=== PATIENT | male | born 1960 | race African-American/Black ===

== ENCOUNTER 2016-10-23 16:15 | Observation (INO) | payer MEDICARE, OTHER ==
--- NOTE | 2016-10-23 17:10 | ED ---
General Adult HPI - General Chief complaint: Chest Pain Stated complaint: chest pain/VINCENT/hip pain/arm pain Time Seen by Provider: 10/23/16 16:42 Source: patient, RN notes reviewed Mode of arrival: ambulatory Limitations: no limitations - History of Present Illness Initial comments: Patient 56-year-old male who presents emergency room today with multiple complaints. He does admit that he had a fall just prior to arrival. He states he was walking on the sidewalk was uneven and he fell down and hit the left side of his head. He states he believes he lost consciousness. He states he believes he was knocked out for around 20 minutes. He states that he does have a headache on the side. He also noticed some pain to the left side of the chest wall. He states is been having pain over the last few days as well prior to this fall but since fall seems to be worse. Patient admits to having chest pain on and off over the last few days. Does admit to a history of stents. He states police less than was placed 2012. Patient does admit that he is having pain is worse with movements and chest. Also admits to pain to the right hip. He wishes movements. Patient denies any recent fever, chills, shortness of breath, back pain, abdominal pain, nausea or vomiting, numbness or tingling, dysuria or hematuria, constipation or diarrhea, headaches or visual changes, or any other complaints. - Related Data Home Medications Medication Instructions Recorded Confirmed Aspirin EC [Ecotrin Low Dose] 81 mg PO DAILY 10/23/16 10/23/16 Atorvastatin [Lipitor] 10 mg PO DAILY 10/23/16 10/23/16 Cetirizine HCl [Zyrtec] 10 mg PO DAILY 10/23/16 10/23/16 HYDROcodone/APAP 7.5-325MG [[place] 1 tab PO TID PRN 10/23/16 10/23/16 7.5-325] Meloxicam [Mobic] 15 mg PO DAILY 10/23/16 10/23/16 Omeprazole 20 mg PO DAILY 10/23/16 10/23/16 QUEtiapine [SEROquel] 50 mg PO HS 10/23/16 10/23/16 Solaraze 3% Gel 2 - 4 gram TOPICAL TID 10/23/16 10/23/16 Venlafaxine HCl [Effexor XR] 75 mg PO BID 10/23/16 10/23/16 oxyCODONE ER [OxyCONTIN 80MG E.R] 80 mg PO Q12HR 10/23/16 10/23/16 Allergies Allergy/AdvReac Type Severity Reaction Status Date / Time blueberry Allergy Rash/Hives Verified 10/23/16 17:15 Review of Systems ROS Statement: Those systems with pertinent positive or pertinent negative responses have been documented in the HPI. ROS Other: All systems not noted in ROS Statement are negative. Past Medical History Past Medical History: Coronary Artery Disease (CAD), Chest Pain / Angina, COPD, Myocardial Infarction (MT), Osteoarthritis (OA) Additional Past Medical History / Comment(s): alcoholism Last Myocardial Infarction Date:: 2004 History of Any Multi-Drug Resistant Organisms: None Reported Past Surgical History: Bowel Resection, Heart Catheterization With Stent Additional Past Surgical History / Comment(s): Cardiac stent 2004 at [place], bowel surgery for pinpoint hole in bowel, L knee arthroscopy. Past Anesthesia/Blood Transfusion Reactions: No Reported Reaction Date of Last Stent Placement:: 2004 Past Psychological History: Bipolar, Depression, Schizophrenia Smoking Status: Current some day smoker Past Alcohol Use History: Occasional Past Drug Use History: None Reported - Past Family History Father Family Medical History: Respiratory Disorder Additional Family Medical History / Comment(s): Father at age 64 from Black lung disease Mother Family Medical History: Myocardial Infarction (MT) Additional Family Medical History / Comment(s): Mother of an MT at 78yrs old. Brother(s) Family Medical History: Myocardial Infarction (MT) Additional Family Medical History / Comment(s): Patient has 10 brothers and 2 from myocardial infarction and had history of alcoholism. Sister(s) Additional Family Medical History / Comment(s): He has 7 sisters that are alive with no major medical problems. He has one son that has and one daughter that is alive and okay. General Exam - General Exam Comments Initial Comments: General: The patient is awake and alert, in no distress, and does not appear acutely ill. Eye: Pupils are equal, round and reactive to light, extra-ocular movements are intact. No nystagmus. There is normal conjunctiva bilaterally. No signs of icterus. Ears, nose, mouth and throat: There are moist mucous membranes and no oral lesions. Neck: The neck is supple, there is no tenderness or JVD. Cardiovascular: There is a regular rate and rhythm. No murmur, rub or gallop is appreciated. Respiratory: Lungs are clear to auscultation, respirations are non-labored, breath sounds are equal. No wheezes, stridor, rales, or rhonchi. Gastrointestinal: Soft, non-distended, non-tender abdomen without masses or organomegaly noted. There is no rebound or guarding present. No CVA tenderness. Bowel sounds are unremarkable. Musculoskeletal: Patient shows full range motional areas. Normal appearance of her film thoracic, lumbar spine. No step-offs forms appreciated. No tenderness in these. Process. Patient does have tenderness in the lateral aspect of the right hip. Does have tenderness to the anterior left side of the chest wall and ribs. No step-offs forms appreciated. Strength 5/5. Sensation intact. Pulses equal bilaterally 2+. Neurological: A&O x 3. CN II-XII intact, There are no obvious motor or sensory deficits. Coordination appears grossly intact. Speech is normal. Skin: Skin is warm and dry and no rashes or lesions are noted. Psychiatric: Cooperative, appropriate mood & affect, normal judgment. Limitations: no limitations Course Vital Signs 10/23/16 10/23/16 10/23/16 16:17 17:02 18:50 Temperature 98.9 F 98.0 F Pulse Rate 106 H 81 Pulse Rate [ 82 Pulse Oximetery ] Respiratory 18 20 Rate Blood Pressure 107/58 114/69 O2 Sat by Pulse 99 100 Oximetry Medical Decision Making - Medical Decision Making Patient's labs been reviewed negative cardiac enzymes. Patient's CK elevation over 500. Does admit to being possibly passed out on the ground for approximately 20 minutes. Patient given a liter bolus in emergency room we continued on IV fluids. Patient CT of the chest was negative for any evidence of PE. No other abnormalities. Patient's x-rays reviewed and reviewed no sign of hip fracture dislocation of the right hip. Chest x-ray unremarkable. Patient's labs unremarkable. Case was discussed with admitting physician who has seen patient here in the emergency room. He will be admitted for serial enzymes. Patient Aware the plan states understanding. - Lab Data Result diagrams: 10/23/16 17:00 10/23/16 17:00 Lab Results 10/23/16 10/23/16 10/23/16 Range/Units 17:00 17:00 17:00 WBC 4.1 (3.8-10.6) k/uL RBC 4.02 L (4.30-5.90) m/uL Hgb 12.1 L (13.0-17.5) gm/dL Hct 37.6 L (39.0-53.0) % MCV 93.6 (80.0-100.0) fL MCH 30.0 (25.0-35.0) pg MCHC 32.0 (31.0-37.0) g/dL RDW 16.9 H (11.5-15.5) % Plt Count 193 (150-450) k/uL Neutrophils % (Manual) 58 % Lymphocytes % (Manual) 33 % Monocytes % (Manual) 9 % Neutrophils # (Manual) 2.38 (1.3-7.7) k/uL Lymphocytes # (Manual) 1.35 (1.0-4.8) k/uL Monocytes # (Manual) 0.37 (0-1.0) k/uL Nucleated RBCs 0 (0-0) /100 WBC Manual Slide Review Performed Anisocytosis Slight PT (9.0-12.0) sec INR (<1.2) APTT (22.0-30.0) sec D-Dimer (<0.60) mg/L FEU Sodium 144 (137-145) mmol/L Potassium 4.4 (3.5-5.1) mmol/L Chloride 107 (98-107) mmol/L Carbon Dioxide 25 (22-30) mmol/L Anion Gap 12 mmol/L BUN 13 (9-20) mg/dL Creatinine 0.90 (0.66-1.25) mg/dL Est GFR (MDRD) Af Amer >60 (>60 ml/min/1.73 sqM) Est GFR (MDRD) Non-Af >60 (>60 ml/min/1.73 sqM) Glucose 144 H (74-99) mg/dL Calcium 9.6 (8.4-10.2) mg/dL Magnesium 1.9 (1.6-2.3) mg/dL Total Bilirubin 0.5 (0.2-1.3) mg/dL AST 32 (17-59) U/L ALT 28 (21-72) U/L Alkaline Phosphatase 55 (38-126) U/L Total Creatine Kinase 554 H (55-170) U/L CK-MB (CK-2) 2.6 H* (0.0-2.4) ng/mL CK-MB (CK-2) Rel Index 0.5 Troponin I <0.012 (0.000-0.034) ng/mL Total Protein 8.8 H (6.3-8.2) g/dL Albumin 4.9 (3.5-5.0) g/dL 10/23/16 Range/Units 17:00 WBC (3.8-10.6) k/uL RBC (4.30-5.90) m/uL Hgb (13.0-17.5) gm/dL Hct (39.0-53.0) % MCV (80.0-100.0) fL MCH (25.0-35.0) pg MCHC (31.0-37.0) g/dL RDW (11.5-15.5) % Plt Count (150-450) k/uL Neutrophils % (Manual) % Lymphocytes % (Manual) % Monocytes % (Manual) % Neutrophils # (Manual) (1.3-7.7) k/uL Lymphocytes # (Manual) (1.0-4.8) k/uL Monocytes # (Manual) (0-1.0) k/uL Nucleated RBCs (0-0) /100 WBC Manual Slide Review Anisocytosis PT 10.3 (9.0-12.0) sec INR 1.0 (<1.2) APTT 23.6 (22.0-30.0) sec D-Dimer 0.68 H (<0.60) mg/L FEU Sodium (137-145) mmol/L Potassium (3.5-5.1) mmol/L Chloride (98-107) mmol/L Carbon Dioxide (22-30) mmol/L Anion Gap mmol/L BUN (9-20) mg/dL Creatinine (0.66-1.25) mg/dL Est GFR (MDRD) Af Amer (>60 ml/min/1.73 sqM) Est GFR (MDRD) Non-Af (>60 ml/min/1.73 sqM) Glucose (74-99) mg/dL Calcium (8.4-10.2) mg/dL Magnesium (1.6-2.3) mg/dL Total Bilirubin (0.2-1.3) mg/dL AST (17-59) U/L ALT (21-72) U/L Alkaline Phosphatase (38-126) U/L Total Creatine Kinase (55-170) U/L CK-MB (CK-2) (0.0-2.4) ng/mL CK-MB (CK-2) Rel Index Troponin I (0.000-0.034) ng/mL Total Protein (6.3-8.2) g/dL Albumin (3.5-5.0) g/dL Disposition Clinical Impression: Fall, Chest pain, Elevated CK Disposition: ADMITTED IP TO THIS HOSP Condition: Stable Referrals: None,Stated [Primary Care Provider] - 1-2 days Time of Disposition: 19:18
[2016-10-23 17:14] LABS: Anisocytosis Slight; Aty Lym Flag Slight; CH 30.4; CHCM 32.6; HCT 37.6 % (39.0-53.0); HDW 2.37; HGB 12.1 gm/dL (13.0-17.5); MCV 93.6 fL (80.0-100.0); Mean Platelet Volume 8.8; RBC 4.02 m/uL (4.30-5.90); RDW 16.9 % (11.5-15.5); WBC 4.1 k/uL (3.8-10.6); WBC (Perox) 4.46
[2016-10-23 17:25] LABS: ALT 28 U/L (21-72); AST 32 U/L (17-59); Alkaline Phosphatase 55 U/L (38-126); Anion Gap 12 mmol/L; Blood Urea Nitrogen 13 mg/dL (9-20); Calcium 9.6 mg/dL (8.4-10.2); Carbon Dioxide 25 mmol/L (22-30); Chloride 107 mmol/L (98-107); Glucose 144 mg/dL (74-99); Magnesium 1.9 mg/dL (1.6-2.3); Non-African American GFR(MDRD) >60 (>60 ml/min/1.73 sqM); Potassium 4.4 mmol/L (3.5-5.1); Sodium 144 mmol/L (137-145); Total Bilirubin 0.5 mg/dL (0.2-1.3); Total Protein 8.8 g/dL (6.3-8.2)
[2016-10-23 17:28] LABS: Partial Thromboplastin Time 23.6 sec (22.0-30.0); Prothrombin Time 10.3 sec (9.0-12.0)
[2016-10-23 17:35] LABS: Creatine Kinase 554 U/L (55-170)
[2016-10-23] MEDS ORDERED: RX INFO: IV CONTRAST WAS GIVEN 1 EACH MISC MISCELLANE PRN (17:38)
[2016-10-23 17:47] LABS: Add Differential Manual Differential; Troponin I <0.012 ng/mL (0.000-0.034)
[2016-10-23 17:50] LABS: Manual Review Performed; Nucleated Red Blood Cells 0 /100 WBC (0-0); Total Cells Counted 100
[2016-10-23 17:54] LABS: Creatine Kinase MB 2.6 ng/mL (0.0-2.4)
[2016-10-23] MEDS ORDERED: ASPIRIN 81 MG PO STA (18:04)
[2016-10-23] MEDS ORDERED: SODIUM CHLORIDE 0.9% 1,000 ML IV STA ×2 (18:04)
[2016-10-23] MEDS ORDERED: NITROGLYCERIN SL TABS 0.4 MG TAB SUBLINGUAL PRN (18:04)
--- NOTE | 2016-10-23 18:22 | P.HPIM ---
History of Present Illness H&P Date: 10/23/16 Chief Complaint: Chest pain shortness of breath and fall The patient is a 56-year-old black male with a history of SC 2004 and CAD with stenting X3 most recently done in 2013 who presents emergency room today with multiple complaints. He does admit that he had a fall just prior to arrival. He states he was walking on the sidewalk was uneven and he fell down and hit the left side of his head. He states he believes he lost consciousness. He states he believes he was knocked out for around 20 minutes. He states that he does have a headache on the side. He also noticed some pain to the left side of the chest wall. He states is been having pain over the last few days as well prior to this fall but since fall seems to be worse. Patient admits to having chest pain on and off over the last few days. Patient does admit that he is having pain is worse with movements and chest. Also admits to pain to the right hip. He wishes movements. Patient denies any recent fever, chills, shortness of breath, back pain, abdominal pain, nausea or vomiting, numbness or tingling, dysuria or hematuria, constipation or diarrhea, headaches or visual changes, or any other complaints. Review of Systems On the 14 point review of systems negative except per HPI Past Medical History Past Medical History: Coronary Artery Disease (CAD), Chest Pain / Angina, COPD, Myocardial Infarction (SC), Osteoarthritis (OA) Additional Past Medical History / Comment(s): alcoholism Last Myocardial Infarction Date:: 2004 History of Any Multi-Drug Resistant Organisms: None Reported Past Surgical History: Bowel Resection, Heart Catheterization With Stent Additional Past Surgical History / Comment(s): Cardiac stent 2004 at [place], bowel surgery for pinpoint hole in bowel, L knee arthroscopy. Past Anesthesia/Blood Transfusion Reactions: No Reported Reaction Date of Last Stent Placement:: 2004 Past Psychological History: Bipolar, Depression, Schizophrenia Smoking Status: Current some day smoker Past Alcohol Use History: Occasional Past Drug Use History: None Reported - Past Family History Father Family Medical History: Respiratory Disorder Additional Family Medical History / Comment(s): Father at age 64 from Black lung disease Mother Family Medical History: Myocardial Infarction (SC) Additional Family Medical History / Comment(s): Mother of an SC at 78yrs old. Brother(s) Family Medical History: Myocardial Infarction (SC) Additional Family Medical History / Comment(s): Patient has 10 brothers and 2 from myocardial infarction and had history of alcoholism. Sister(s) Additional Family Medical History / Comment(s): He has 7 sisters that are alive with no major medical problems. He has one son that has and one daughter that is alive and okay. Medications and Allergies Home Medications Medication Instructions Recorded Confirmed Type Aspirin EC [Ecotrin Low Dose] 81 mg PO DAILY 10/23/16 10/23/16 History Atorvastatin [Lipitor] 10 mg PO DAILY 10/23/16 10/23/16 History Cetirizine HCl [Zyrtec] 10 mg PO DAILY 10/23/16 10/23/16 History HYDROcodone/APAP 7.5-325MG [[place] 1 tab PO TID PRN 10/23/16 10/23/16 History 7.5-325] Meloxicam [Mobic] 15 mg PO DAILY 10/23/16 10/23/16 History Omeprazole 20 mg PO DAILY 10/23/16 10/23/16 History QUEtiapine [SEROquel] 50 mg PO HS 10/23/16 10/23/16 History Solaraze 3% Gel 2 - 4 gram TOPICAL TID 10/23/16 10/23/16 History Venlafaxine HCl [Effexor XR] 75 mg PO BID 10/23/16 10/23/16 History oxyCODONE ER [OxyCONTIN 80MG E.R] 80 mg PO Q12HR 10/23/16 10/23/16 History Allergies Allergy/AdvReac Type Severity Reaction Status Date / Time blueberry Allergy Rash/Hives Verified 10/23/16 17:15 Physical Exam Vitals: Vital Signs Temp Pulse Pulse Resp BP Pulse Ox 10/23/16 17:02 82 10/23/16 16:17 98.9 F 106 H 18 107/58 99 Intake and Output 10/23/16 10/23/16 10/23/16 06:59 14:59 22:59 Other: Weight 68.039 kg Patient Weight 10/24/16 06:59 Weight 68.039 kg Constitutional: No acute distress, conversant, pleasant Eyes: Anicteric sclerae, moist conjunctiva, no lid-lag, PERRLA ENMT: NC/AT,Oropharynx clear, no erythema, exudates Neck:Supple, FROM, no masses, or JVD, No carotid bruits; No thyromegaly Lungs: Clear to auscultation, Clear to percussion, Normal respiratory effort, no accessory muscle use Cardiovascular: Heart regular in rate and rhythm, No murmurs, gallops, or rubs no peripheral edema Abdominal: Soft Nontender, nom distended, no guarding, no rebound or rigidity, Normoactive bowel sounds No hepatomegaly, No splenomegaly, No palpable mass No abdominal wall hernia noted Skin: Normal temperature, tone, texture, turgor, No induration No subcutaneous nodules, No rash, lesions, No ulcers Extremities:No digital cyanosis No clubbing, Pedal pulses intact and symmetrical Radial pulses intact and symmetrical Normal gait and station, No calf tenderness Psychiatric: Alert and oriented to person, place and time, Appropriate affect Intact judgement Neuro: Muscles Strength 5/5 in all 4 extremities, Sensation to light touch grossly present throughout, Cranial nerves II-XII grossly intact. No focal sensory deficits Results CBC & Chem 7: 10/23/16 17:00 10/23/16 17:00 Labs: Abnormal Lab Results - Last 24 Hours (Table) 10/23/16 10/23/16 10/23/16 Range/Units 17:00 17:00 17:00 RBC 4.02 L (4.30-5.90) m/uL Hgb 12.1 L (13.0-17.5) gm/dL Hct 37.6 L (39.0-53.0) % RDW 16.9 H (11.5-15.5) % D-Dimer (<0.60) mg/L FEU Glucose 144 H (74-99) mg/dL Total Creatine Kinase 554 H (55-170) U/L CK-MB (CK-2) 2.6 H* (0.0-2.4) ng/mL Total Protein 8.8 H (6.3-8.2) g/dL 10/23/16 Range/Units 17:00 RBC (4.30-5.90) m/uL Hgb (13.0-17.5) gm/dL Hct (39.0-53.0) % RDW (11.5-15.5) % D-Dimer 0.68 H (<0.60) mg/L FEU Glucose (74-99) mg/dL Total Creatine Kinase (55-170) U/L CK-MB (CK-2) (0.0-2.4) ng/mL Total Protein (6.3-8.2) g/dL Assessment and Plan (1) Atypical chest pain Status: Acute (2) CAD (coronary artery disease) Status: Acute (3) Dyslipidemia Status: Acute Plan: That is a 56-year-old black male with a known history of coronary artery disease with stenting presented with atypical chest pain initial set of troponins negative EKG negative for any acute ischemia, due to his ongoing coronary disease factor profile as he is a smoker and is placed in observation status to rule out ACS, Continuous chest pain orders start aspirin statin therapy for this or morphine and continue to trend his troponins. We'll order echocardiogram and exercise stress test. This fall the patient has been complaining of pleuritic chest pain and does have a slightly elevated d-dimer CT of the chest has been ordered to rule out PE Results are pending. CT of the head is also pending. We'll follow up on this tomorrow and continue to follow his clinical course Time with Patient: Greater than 30
--- NOTE | 2016-10-23 18:31 | CT ---
EXAMINATION TYPE: CT brain anuj esquivel DATE OF EXAM: 10/23/2016 COMPARISON: 03/21/[address] scan HISTORY: Patient complains of headache and neck pain post fall yesterday. CT DLP: 1016.5 mGycm Automated exposure control for dose reduction was used. TECHNIQUE: CT scan of the head and cervical spine are performed without contrast. FINDINGS: Ventricles have normal size. There is no mass effect nor midline shift. There is no sign of intracranial hemorrhage. The calvarium is intact. The cervical vertebra show some straightening. There is hypertrophic anterior spurring from C3 to C7. Facet joints are intact. There is no sign of a fracture. Skull base is intact. IMPRESSION: Negative CT scan of the brain. No change. Mild spondylotic changes in the cervical spine. No fracture.
--- NOTE | 2016-10-23 18:32 | XR ---
EXAMINATION TYPE: XR chest 2V DATE OF EXAM: 10/23/2016 COMPARISON: 12/17/2015 HISTORY: Chest pain TECHNIQUE: Frontal and lateral views of the chest are obtained. FINDINGS: There is no heart failure nor confluent pneumonic infiltrate. There are chest leads. There are no hilar masses. Bony thorax is intact. IMPRESSION: No active cardiopulmonary disease. No change.
--- NOTE | 2016-10-23 18:34 | XR ---
EXAMINATION TYPE: XR Hip RT and AP Pelvis DATE OF EXAM: 10/23/2016 COMPARISON: 08/12/2014 HISTORY: Hip pain TECHNIQUE: A single AP view of the pelvis is obtained. Two views of the right hip are obtained. FINDINGS: I see no fracture nor dislocation. Hip joint spaces fairly normal. Pelvic ring is intact. T here is mild acetabular spurring. CONCLUSION: Mild acetabular spurring. No fracture. No adverse change compared to old exam.
--- NOTE | 2016-10-23 19:02 | CT ---
EXAMINATION TYPE: CT angio chest DATE OF EXAM: 10/23/2016 6:48 PM COMPARISON: 10/21/2014 HISTORY: Chest/arm pain. CT DLP: 202.2 mGycm Automated exposure control for dose reduction was used. CONTRAST: CTA scan of the thorax is performed with IV Contrast, patient injected with 75 mL of Omnipaque 350, p ulmonary embolism protocol. There are 3-D post processed images.. FINDINGS: There are emphysematous changes in the left upper lobe. There is no evidence of a pulmonary mass. The re is mild subsegmental atelectasis at the posterior lung bases. There is no pleural effusion. There is no pericardial effusion. Heart appears slightly enlarged. Ascending aorta measures 3.7 cm. There i s no evidence of aortic dissection. I see no filling defects in the pulmonary arteries. There is no m ediastinal adenopathy. There is spurring in the thoracic spine. IMPRESSION: MILD PULMONARY EMPHYSEMA. NO EVIDENCE OF PULMONARY EMBOLISM. MILD SUBSEGMENTAL ATELECTASIS AT THE [place] G BASES SIMILAR TO OLD EXAM.
[2016-10-23 20:12] VITALS: RESP 18
[2016-10-23] MEDS ORDERED: FAMOTIDINE 20 MG TAB PO SCH (21:00)
[2016-10-23] MEDS ORDERED: ACETAMINOPHEN TAB 500 MG TAB PO PRN (21:29)
[2016-10-23] MEDS ORDERED: HYDROcodone/APAP 5-325MG 1 EACH TAB PO STA (21:40)
[2016-10-24 00:03] VITALS: PULSE 72
[2016-10-24 04:29] VITALS: BP 117/78; TEMP 98.3
[2016-10-24] MEDS ORDERED: ASPIRIN 325 MG TAB PO SCH (09:00)
[2016-10-24] MEDS ORDERED: ATORVASTATIN 80 MG TAB PO SCH (09:00)
[2016-10-24] MEDS ORDERED: ENOXAPARIN 40 MG/0.4 ML SYRINGE SQ SCH (09:00)
--- NOTE | 2016-10-25 16:56 | P.DS ---
Providers Date of admission: 10/23/16 18:06 Expected date of discharge: 10/24/16 Attending physician: Eugenio Giron MD Primary care physician: Stated None - Discharge Diagnosis(es) (1) Left against medical advice Status: Acute (2) Atypical chest pain Status: Acute (3) CAD (coronary artery disease) Status: Acute (4) Dyslipidemia Status: Acute Hospital Course: Condition is a 56-year-old -[place] male that presented with atypical chest pain and was placed on observation on telemetry unit to rule out ACS given his history of coronary artery disease with stenting, cardiology was consulted to see the patient. The patient's EKG and cardiac enzymes were all negative for any suggestion of ischemia. Scheduled to have a echocardiogram done, however the patient left AMA prior to being seen by cardiology. This discharge process took less than 15 minutes Patient Condition at Discharge: Stable Plan - Discharge Summary New Discharge Prescriptions: No Action Aspirin EC [Ecotrin Low Dose] 81 mg PO DAILY Atorvastatin [Lipitor] 10 mg PO DAILY Cetirizine HCl [Zyrtec] 10 mg PO DAILY HYDROcodone/APAP 7.5-325MG [[place] 7.5-325] 1 tab PO TID PRN PRN Reason: Pain Meloxicam [Mobic] 15 mg PO DAILY Omeprazole 20 mg PO DAILY oxyCODONE ER [OxyCONTIN 80MG E.R] 80 mg PO Q12HR QUEtiapine [SEROquel] 50 mg PO HS [place] 3% Gel 2 - 4 gram TOPICAL TID Venlafaxine HCl [Effexor XR] 75 mg PO BID Discharge Medication List Aspirin EC [Ecotrin Low Dose] 81 mg PO DAILY 10/23/16 [History] Atorvastatin [Lipitor] 10 mg PO DAILY 10/23/16 [History] Cetirizine HCl [Zyrtec] 10 mg PO DAILY 10/23/16 [History] HYDROcodone/APAP 7.5-325MG [[place] 7.5-325] 1 tab PO TID PRN 10/23/16 [History] Meloxicam [Mobic] 15 mg PO DAILY 10/23/16 [History] Omeprazole 20 mg PO DAILY 10/23/16 [History] QUEtiapine [SEROquel] 50 mg PO HS 10/23/16 [History] [place] 3% Gel 2 - 4 gram TOPICAL TID 10/23/16 [History] Venlafaxine HCl [Effexor XR] 75 mg PO BID 10/23/16 [History] oxyCODONE ER [OxyCONTIN 80MG E.R] 80 mg PO Q12HR 10/23/16 [History] Follow up Appointment(s)/Referral(s): None,Stated [Primary Care Provider] - 1-2 days Discharge Disposition: Left Against Medical Advice
== END 2016-10-24 06:50 | disposition left against medical advice (07) ==
LOC: EC 16:15 → 3OBS 18:06
PROVIDERS: ADMIT Family Medicine; ATTEND Family Medicine
DX: R07.89 Other chest pain (principal); I25.10 Atherosclerotic heart disease of native coronary artery without angina pectoris; R74.8 Abnormal levels of other serum enzymes; E78.5 Hyperlipidemia, unspecified; M25.551 Pain in right hip; R51 Headache; J44.9 Chronic obstructive pulmonary disease, unspecified; F17.200 Nicotine dependence, unspecified, uncomplicated; Z95.5 Presence of coronary angioplasty implant and graft; I25.2 Old myocardial infarction; M19.90 Unspecified osteoarthritis, unspecified site; F20.9 Schizophrenia, unspecified; F31.9 Bipolar disorder, unspecified; Z79.1 Long term (current) use of non-steroidal anti-inflammatories (NSAID); Z79.82 Long term (current) use of aspirin; Z79.891 Long term (current) use of opiate analgesic; Z79.899 Other long term (current) drug therapy; Z91.018 Allergy to other foods; Z82.49 Family history of ischemic heart disease and other diseases of the circulatory system; W18.30XA Fall on same level, unspecified, initial encounter; Y93.01 Activity, walking, marching and hiking; Y92.480 Sidewalk as the place of occurrence of the external cause
CPT/HCPCS: 96360 ×2; 99285 ×2; 36415; 93005; 85379; 80053; 82550; 82553; 83735; 84484; 85025; 85610; 85730; 71020; 73502; 72125; 70450; 71275; G0378 ×2; Q9967

== ENCOUNTER 2016-12-26 10:06 | Observation (INO) | payer MEDICARE, OTHER ==
[2016-12-26] MEDS ORDERED: ASPIRIN 81 MG PO STA (10:24)
[2016-12-26] MEDS ORDERED: MORPHINE SULFATE 4 MG/ML SYRINGE IV STA (10:24)
--- NOTE | 2016-12-26 10:28 | ED ---
General Adult HPI - General Chief complaint: Chest Pain Stated complaint: Chest Pain Time Seen by Provider: 12/26/16 10:13 Source: patient, RN notes reviewed, old records reviewed Mode of arrival: wheelchair Limitations: no limitations - History of Present Illness Initial comments: 56-year-old male presents for evaluation of chest pain. Patient states he's had 3 days of constant substernal chest pain. Pain is nonradiating. It is associated with shortness of breath. Patient describes it as a pressure. Patient states he has a history of coronary artery disease with a heart attack in 2004. He states he has had 3 cardiac stents placed. Only medication the patient is currently taking his aspirin. Patient is a current smoker, states he smokes only a few cigarettes daily. Patient denies heavy alcohol consumption. Denies abdominal pain. Patient does also complain of 5 days of bright red blood per rectum. Blood is with bowel movements. Patient is not currently on any anticoagulation. No cough. No fever or chills. No nausea or vomiting. - Related Data Home Medications Medication Instructions Recorded Confirmed Aspirin EC [Ecotrin Low Dose] 81 mg PO DAILY 10/23/16 12/26/16 Atorvastatin [Lipitor] 10 mg PO DAILY 10/23/16 12/26/16 Cetirizine HCl [Zyrtec] 10 mg PO DAILY 10/23/16 12/26/16 Meloxicam [Mobic] 15 mg PO DAILY 10/23/16 12/26/16 Omeprazole 20 mg PO DAILY 10/23/16 12/26/16 oxyCODONE ER [OxyCONTIN 80MG E.R] 80 mg PO Q12HR 10/23/16 12/26/16 Baclofen [Lioresal] 10 mg PO TID 12/26/16 12/26/16 Clopidogrel Bisulfate [Plavix] 75 mg PO DAILY 12/26/16 12/26/16 Gabapentin [Neurontin] 300 mg PO TID 12/26/16 12/26/16 QUEtiapine [SEROquel] 200 mg PO HS 12/26/16 12/26/16 Venlafaxine HCl ER [Effexor XR] 150 mg PO DAILY 12/26/16 12/26/16 Allergies Allergy/AdvReac Type Severity Reaction Status Date / Time blueberry Allergy Rash/Hives Verified 12/26/16 10:28 Review of Systems ROS Statement: Those systems with pertinent positive or pertinent negative responses have been documented in the HPI. ROS Other: All systems not noted in ROS Statement are negative. Past Medical History Past Medical History: Coronary Artery Disease (CAD), Chest Pain / Angina, COPD, Myocardial Infarction ([place]), Osteoarthritis (OA) Additional Past Medical History / Comment(s): alcoholism Last Myocardial Infarction Date:: 2004 History of Any Multi-Drug Resistant Organisms: None Reported Past Surgical History: Bowel Resection, Heart Catheterization With Stent Additional Past Surgical History / Comment(s): Cardiac stent 2005 at [place], bowel surgery for pinpoint hole in bowel, L knee arthroscopy. Past Anesthesia/Blood Transfusion Reactions: No Reported Reaction Date of Last Stent Placement:: 2004 Past Psychological History: Bipolar, Depression, Schizophrenia Smoking Status: Current some day smoker Past Alcohol Use History: Occasional Past Drug Use History: None Reported - Past Family History Father Family Medical History: Respiratory Disorder Additional Family Medical History / Comment(s): Father at age 64 from Black lung disease Mother Family Medical History: Myocardial Infarction ([place]) Additional Family Medical History / Comment(s): Mother of an [place] at 78yrs old. Brother(s) Family Medical History: Myocardial Infarction ([place]) Additional Family Medical History / Comment(s): Patient has 10 brothers and 2 from myocardial infarction and had history of alcoholism. Sister(s) Additional Family Medical History / Comment(s): He has 7 sisters that are alive with no major medical problems. He has one son that has and one daughter that is alive and okay. General Exam Limitations: no limitations General appearance: alert, in no apparent distress Head exam: Present: atraumatic, normocephalic Eye exam: Present: normal appearance, PERRL ENT exam: Present: normal exam Neck exam: Present: normal inspection. Absent: tenderness, meningismus Respiratory exam: Present: normal lung sounds bilaterally. Absent: respiratory distress Cardiovascular Exam: Present: regular rate, normal rhythm GI/Abdominal exam: Present: soft. Absent: distended, tenderness, guarding Rectal exam: Present: normal rectal tone, tenderness. Absent: black stool, bloody stool Extremities exam: Present: normal inspection, full ROM, normal capillary refill. Absent: pedal edema Neurological exam: Present: alert, oriented X3. Absent: motor sensory deficit Psychiatric exam: Present: normal affect, normal mood Skin exam: Present: warm, dry, intact. Absent: cyanosis, diaphoretic Course Vital Signs 12/26/16 12/26/16 12/26/16 10:08 10:25 10:48 Temperature 99.4 F Pulse Rate 84 71 Respiratory 16 18 16 Rate Blood Pressure 153/91 132/87 O2 Sat by Pulse 96 98 Oximetry 12/26/16 12:32 Temperature Pulse Rate 78 Respiratory 18 Rate Blood Pressure 124/82 O2 Sat by Pulse 99 Oximetry EKG Findings - EKG Comments: EKG Findings:: EKG shows normal sinus rhythm with sinus arrhythmia, LVH, ventricular rate 76, CA interval 142, QRS duration 86, QTC 443 no signs of ischemia Medical Decision Making - Medical Decision Making 56-year-old male presenting with chest pain. Laboratory studies reveal stable hemoglobin, negative d-dimer, negative troponin. Hemoccult is negative. Chest x-ray shows no acute findings. EKG shows no ST segment elevation or depression. Patient will be placed in observation for serial troponins. - Lab Data Result diagrams: 12/26/16 10:40 12/26/16 10:40 Lab Results 12/26/16 12/26/16 12/26/16 Range/Units 10:40 10:40 10:40 WBC 3.5 L (3.8-10.6) k/uL RBC 3.70 L (4.30-5.90) m/uL Hgb 10.9 L (13.0-17.5) gm/dL Hct 34.3 L (39.0-53.0) % MCV 92.6 (80.0-100.0) fL MCH 29.5 (25.0-35.0) pg MCHC 31.9 (31.0-37.0) g/dL RDW 15.7 H (11.5-15.5) % Plt Count 172 (150-450) k/uL Neutrophils % (Manual) 41 % Lymphocytes % (Manual) 46 % Monocytes % (Manual) 12 % Eosinophils % (Manual) 1 % Neutrophils # (Manual) 1.44 (1.3-7.7) k/uL Lymphocytes # (Manual) 1.61 (1.0-4.8) k/uL Monocytes # (Manual) 0.42 (0-1.0) k/uL Eosinophils # (Manual) 0.04 (0-0.7) k/uL Nucleated RBCs 0 (0-0) /100 WBC Manual Slide Review Performed RBC Morphology Normal PT (9.0-12.0) sec INR (<1.2) APTT (22.0-30.0) sec D-Dimer (<0.60) mg/L FEU Sodium 143 (137-145) mmol/L Potassium 4.2 (3.5-5.1) mmol/L Chloride 107 (98-107) mmol/L Carbon Dioxide 26 (22-30) mmol/L Anion Gap 10 mmol/L BUN 15 (9-20) mg/dL Creatinine 0.78 (0.66-1.25) mg/dL Est GFR (MDRD) Af Amer >60 (>60 ml/min/1.73 sqM) Est GFR (MDRD) Non-Af >60 (>60 ml/min/1.73 sqM) Glucose 79 (74-99) mg/dL Calcium 9.8 (8.4-10.2) mg/dL Magnesium 1.7 (1.6-2.3) mg/dL Total Bilirubin 0.3 (0.2-1.3) mg/dL AST 21 (17-59) U/L ALT 22 (21-72) U/L Alkaline Phosphatase 51 (38-126) U/L Total Creatine Kinase 129 (55-170) U/L CK-MB (CK-2) 1.2 (0.0-2.4) ng/mL CK-MB (CK-2) Rel Index 0.9 Troponin I <0.012 (0.000-0.034) ng/mL NT-Pro-B Natriuret Pep pg/mL Total Protein 7.8 (6.3-8.2) g/dL Albumin 4.3 (3.5-5.0) g/dL Lipase 130 (23-300) U/L Urine Color Urine Appearance (Clear) Urine pH (5.0-8.0) Ur Specific [place] (1.001-1.035) Urine Protein (Negative) Urine Glucose (UA) (Negative) Urine Ketones (Negative) Urine Blood (Negative) Urine Nitrite (Negative) Urine Bilirubin (Negative) Urine Urobilinogen (<2.0) mg/dL Ur Leukocyte Esterase (Negative) Stool Occult Blood (Negative) Urine Opiates Screen (NotDetected) Ur Oxycodone Screen (NotDetected) Urine Methadone Screen (NotDetected) Ur Propoxyphene Screen (NotDetected) Ur Barbiturates Screen (NotDetected) U Tricyclic Antidepress (NotDetected) Ur Phencyclidine Scrn (NotDetected) Ur Amphetamines Screen (NotDetected) U Methamphetamines Scrn (NotDetected) U Benzodiazepines Scrn (NotDetected) Urine Cocaine Screen (NotDetected) U Marijuana (THC) Screen (NotDetected) 12/26/16 12/26/16 12/26/16 Range/Units 10:40 10:40 10:40 WBC (3.8-10.6) k/uL RBC (4.30-5.90) m/uL Hgb (13.0-17.5) gm/dL Hct (39.0-53.0) % MCV (80.0-100.0) fL MCH (25.0-35.0) pg MCHC (31.0-37.0) g/dL RDW (11.5-15.5) % Plt Count (150-450) k/uL Neutrophils % (Manual) % Lymphocytes % (Manual) % Monocytes % (Manual) % Eosinophils % (Manual) % Neutrophils # (Manual) (1.3-7.7) k/uL Lymphocytes # (Manual) (1.0-4.8) k/uL Monocytes # (Manual) (0-1.0) k/uL Eosinophils # (Manual) (0-0.7) k/uL Nucleated RBCs (0-0) /100 WBC Manual Slide Review RBC Morphology PT 10.1 (9.0-12.0) sec INR 1.0 (<1.2) APTT 21.9 L (22.0-30.0) sec D-Dimer 0.27 (<0.60) mg/L FEU Sodium (137-145) mmol/L Potassium (3.5-5.1) mmol/L Chloride (98-107) mmol/L Carbon Dioxide (22-30) mmol/L Anion Gap mmol/L BUN (9-20) mg/dL Creatinine (0.66-1.25) mg/dL Est GFR (MDRD) Af Amer (>60 ml/min/1.73 sqM) Est GFR (MDRD) Non-Af (>60 ml/min/1.73 sqM) Glucose (74-99) mg/dL Calcium (8.4-10.2) mg/dL Magnesium (1.6-2.3) mg/dL Total Bilirubin (0.2-1.3) mg/dL AST (17-59) U/L ALT (21-72) U/L Alkaline Phosphatase (38-126) U/L Total Creatine Kinase (55-170) U/L CK-MB (CK-2) (0.0-2.4) ng/mL CK-MB (CK-2) Rel Index Troponin I (0.000-0.034) ng/mL NT-Pro-B Natriuret Pep 24 pg/mL Total Protein (6.3-8.2) g/dL Albumin (3.5-5.0) g/dL Lipase (23-300) U/L Urine Color Urine Appearance (Clear) Urine pH (5.0-8.0) Ur Specific [place] (1.001-1.035) Urine Protein (Negative) Urine Glucose (UA) (Negative) Urine Ketones (Negative) Urine Blood (Negative) Urine Nitrite (Negative) Urine Bilirubin (Negative) Urine Urobilinogen (<2.0) mg/dL Ur Leukocyte Esterase (Negative) Stool Occult Blood Negative (Negative) Urine Opiates Screen (NotDetected) Ur Oxycodone Screen (NotDetected) Urine Methadone Screen (NotDetected) Ur Propoxyphene Screen (NotDetected) Ur Barbiturates Screen (NotDetected) U Tricyclic Antidepress (NotDetected) Ur Phencyclidine Scrn (NotDetected) Ur Amphetamines Screen (NotDetected) U Methamphetamines Scrn (NotDetected) U Benzodiazepines Scrn (NotDetected) Urine Cocaine Screen (NotDetected) U Marijuana (THC) Screen (NotDetected) 12/26/16 Range/Units 12:07 WBC (3.8-10.6) k/uL RBC (4.30-5.90) m/uL Hgb (13.0-17.5) gm/dL Hct (39.0-53.0) % MCV (80.0-100.0) fL MCH (25.0-35.0) pg MCHC (31.0-37.0) g/dL RDW (11.5-15.5) % Plt Count (150-450) k/uL Neutrophils % (Manual) % Lymphocytes % (Manual) % Monocytes % (Manual) % Eosinophils % (Manual) % Neutrophils # (Manual) (1.3-7.7) k/uL Lymphocytes # (Manual) (1.0-4.8) k/uL Monocytes # (Manual) (0-1.0) k/uL Eosinophils # (Manual) (0-0.7) k/uL Nucleated RBCs (0-0) /100 WBC Manual Slide Review RBC Morphology PT (9.0-12.0) sec INR (<1.2) APTT (22.0-30.0) sec D-Dimer (<0.60) mg/L FEU Sodium (137-145) mmol/L Potassium (3.5-5.1) mmol/L Chloride (98-107) mmol/L Carbon Dioxide (22-30) mmol/L Anion Gap mmol/L BUN (9-20) mg/dL Creatinine (0.66-1.25) mg/dL Est GFR (MDRD) Af Amer (>60 ml/min/1.73 sqM) Est GFR (MDRD) Non-Af (>60 ml/min/1.73 sqM) Glucose (74-99) mg/dL Calcium (8.4-10.2) mg/dL Magnesium (1.6-2.3) mg/dL Total Bilirubin (0.2-1.3) mg/dL AST (17-59) U/L ALT (21-72) U/L Alkaline Phosphatase (38-126) U/L Total Creatine Kinase (55-170) U/L CK-MB (CK-2) (0.0-2.4) ng/mL CK-MB (CK-2) Rel Index Troponin I (0.000-0.034) ng/mL NT-Pro-B Natriuret Pep pg/mL Total Protein (6.3-8.2) g/dL Albumin (3.5-5.0) g/dL Lipase (23-300) U/L Urine Color Yellow Urine Appearance Clear (Clear) Urine pH 5.0 (5.0-8.0) Ur Specific [place] 1.017 (1.001-1.035) Urine Protein Negative (Negative) Urine Glucose (UA) Negative (Negative) Urine Ketones Negative (Negative) Urine Blood Negative (Negative) Urine Nitrite Negative (Negative) Urine Bilirubin Negative (Negative) Urine Urobilinogen <2.0 (<2.0) mg/dL Ur Leukocyte Esterase Negative (Negative) Stool Occult Blood (Negative) Urine Opiates Screen Detected H (NotDetected) Ur Oxycodone Screen Not Detected (NotDetected) Urine Methadone Screen Not Detected (NotDetected) Ur Propoxyphene Screen Not Detected (NotDetected) Ur Barbiturates Screen Not Detected (NotDetected) U Tricyclic Antidepress Not Detected (NotDetected) Ur Phencyclidine Scrn Not Detected (NotDetected) Ur Amphetamines Screen Not Detected (NotDetected) U Methamphetamines Scrn Not Detected (NotDetected) U Benzodiazepines Scrn Not Detected (NotDetected) Urine Cocaine Screen Not Detected (NotDetected) U Marijuana (THC) Screen Not Detected (NotDetected) Disposition Clinical Impression: Chest pain Disposition: ADMITTED IP TO THIS [facility] Condition: Stable Referrals: None,Stated [Primary Care Provider] - 1-2 days Time of Disposition: 12:54
[2016-12-26 11:12] LABS: ALT 22 U/L (21-72); AST 21 U/L (17-59); Alkaline Phosphatase 51 U/L (38-126); Anion Gap 10 mmol/L; Aty Lym Flag Slight; Blood Urea Nitrogen 15 mg/dL (9-20); CH 29.8; CHCM 32.4; Calcium 9.8 mg/dL (8.4-10.2); Carbon Dioxide 26 mmol/L (22-30); Chloride 107 mmol/L (98-107); Glucose 79 mg/dL (74-99); HCT 34.3 % (39.0-53.0); HDW 2.29; HGB 10.9 gm/dL (13.0-17.5); MCH 29.5 pg (25.0-35.0); MCHC 31.9 g/dL (31.0-37.0); MCV 92.6 fL (80.0-100.0); Magnesium 1.7 mg/dL (1.6-2.3); Mean Platelet Volume 7.6; Non-African American GFR(MDRD) >60 (>60 ml/min/1.73 sqM); Potassium 4.2 mmol/L (3.5-5.1); RDW 15.7 % (11.5-15.5); Sodium 143 mmol/L (137-145); Total Bilirubin 0.3 mg/dL (0.2-1.3); Total Protein 7.8 g/dL (6.3-8.2); WBC 3.5 k/uL (3.8-10.6); WBC (Perox) 3.65
--- NOTE | 2016-12-26 11:16 | XR ---
EXAMINATION TYPE: XR chest 2V DATE OF EXAM: 12/26/2016 COMPARISON: 10/23/2016 TECHNIQUE: PA and lateral views submitted. HISTORY: Chest pain FINDINGS: The lungs are clear and there is no pneumothorax, pleural effusion, or focal pneumonia. Hypertrophi c and degenerative change of the spine. Hyperinflation lungs noted. Surgical clips in the epigastrium . Elevation left hemidiaphragm noted. Subsegmental changes at the lung base overlying the heart borde r on the lateral view. IMPRESSION: 1. Left basilar atelectasis favored over pneumonia correlate clinically. 2. Correlate for COPD..
[2016-12-26 11:18] LABS: Add Differential Manual Differential
[2016-12-26 11:22] LABS: Nucleated Red Blood Cells 0 /100 WBC (0-0); Total Cells Counted 100
[2016-12-26 11:23] LABS: Manual Review Performed; RBC Morphology Normal
[2016-12-26 11:26] LABS: Creatine Kinase 129 U/L (55-170)
[2016-12-26 11:33] LABS: Prothrombin Time 10.1 sec (9.0-12.0)
[2016-12-26 11:39] LABS: Creatine Kinase MB 1.2 ng/mL (0.0-2.4); Troponin I <0.012 ng/mL (0.000-0.034)
[2016-12-26 11:40] LABS: Partial Thromboplastin Time 21.9 sec (22.0-30.0)
[2016-12-26 12:18] LABS: Appearance,Urine Clear (Clear); Bilirubin,Urine Negative (Negative); Glucose,Urine (UA) Negative (Negative); Ketones,Urine Negative (Negative); Leukocyte Esterase,Urine Negative (Negative); Nitrite,Urine Negative (Negative); Protein,Urine Negative (Negative); Specific Gravity,Urine 1.017 (1.001-1.035); UA Billing (MACRO vs. MICRO) CHEM; Urobilinogen,Urine <2.0 mg/dL (<2.0)
[2016-12-26] MEDS: MORPHINE SULFATE 4 MG/ML SYRINGE IVP PRN ×3 (14:15→22:06)
[2016-12-26] MEDS: GABAPENTIN 300 MG CAP PO SCH (20:34)
[2016-12-26] MEDS: BACLOFEN 10 MG TAB PO SCH (20:34)
[2016-12-26] MEDS ORDERED: ATORVASTATIN 10 MG TAB PO SCH (21:00)
[2016-12-26] MEDS ORDERED: QUEtiapine 200 MG TAB PO SCH (21:00)
[2016-12-26 22:29] LABS: Anisocytosis Slight; CH 29.7; CHCM 30.9; HCT 33.5 % (39.0-53.0); HDW 2.15; HGB 10.4 gm/dL (13.0-17.5); Hypochromasia Slight; MCH 29.9 pg (25.0-35.0); MCV 96.5 fL (80.0-100.0); Macrocytosis Slight; Mean Platelet Volume 9.8; RBC 3.47 m/uL (4.30-5.90); RDW 17.2 % (11.5-15.5); WBC 3.9 k/uL (3.8-10.6)
--- NOTE | 2016-12-26 22:34 | CONS ---
CONSULTATION Lele Scott is a 56-year-old gentleman who has been admitted to the hospital through the emergency room. He has a history of CAD, hypertension, hyperlipidemia, and apparently had a stenting performed more than 5-10 years ago. This gentleman lives in [place], but apparently has come here to [place]. He has been complaining of 3 days of constant substernal heaviness, which he describes as a feeling of somebody is pushing on his chest. This intensity of pain has been constant for 3 days. His EKG is unremarkable. Troponins are unremarkable. He has some shortness of breath, but he is resting comfortably at the time of my evaluation. Apparently in 2004, he had an CA and had 3 stents [facility] at [facility]. This information is not verified. He also denies any had alcohol consumption excessively, but previously he did consume alcohol before. He still smokes cigarettes. He complains of having some bright red blood per rectum and hemoglobin however appears to be low at 10.9. At the time of my evaluation, he looked comfortable, but when questioned, he says he has a constant pain that has been going on for more than 3 days. PAST MEDICAL HISTORY: 1. CAD with stenting in 2004 not verified. 2. Hypertension. 3. Hyperlipidemia. 4. History of osteoarthritis. 5. History of history of smoking and also alcoholism. 6. The patient has a history of bipolar disorder, depression and schizophrenia according to the chart. ALLERGIES: No known drug allergies. MEDICATIONS: 1. Plavix 75 mg daily. 2. Neurontin 300 mg t.i.d. 3. Seroquel. 4. Effexor 150 mg daily. 5. Plavix 75 mg. 6. Gabapentin. 7. Aspirin 81 mg daily. 8. Meloxicam. 9. Omeprazole. 10. PHYSICAL EXAMINATION: Blood pressure is 118/70, pulse rate is 70 per minute, regular. HEENT: Unremarkable. Fundus was not examined by me. Neck is supple. No JVD. I do not hear a carotid bruit. There is no thyromegaly. Heart exam reveals S1, S2 heard normally. No rub, murmur or gallop. Lungs are clear. Abdomen is soft, nontender. Lower extremities reveal normal pulses. No edema. Central nervous system is normal. EKG revealed sinus mechanism, no acute changes, voltage criteria for LVH is noted. IMPRESSION: 1. Atypical chest pain in a patient with constant chest pain for more than 3 days and troponins are normal. EKG is unremarkable seems noncardiac chest pain to me. 2. History of remote myocardial infarction and stenting, details unclear. 3. Hypertension. 4. Hyperlipidemia. 5. History of smoking and also past history of alcoholism. RECOMMENDATION: I am recommending that given his low hemoglobin and bright red blood per rectum and a clinical picture, I am not recommending IV heparin at this time. I will give him subcu heparin. His D-dimer is also normal. We will increase activity and see how he does. I would obtain echocardiogram tomorrow. 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 I will obtain an additional troponin level as well in the morning. Will obtain echocardiogram also. Thank you very much for the consult. SYBIL / OLIVIA: [id number] /
[2016-12-27] MEDS: MORPHINE SULFATE 4 MG/ML SYRINGE IVP PRN ×2 (02:20→06:43)
[2016-12-27 07:18] LABS: CH 29.6; CHCM 31.6; HDW 2.25; HGB 10.8 gm/dL (13.0-17.5); MCH 29.9 pg (25.0-35.0); MCHC 31.8 g/dL (31.0-37.0); MCV 94.1 fL (80.0-100.0); Mean Platelet Volume 8.4; RBC 3.61 m/uL (4.30-5.90); RDW 15.6 % (11.5-15.5); WBC 4.2 k/uL (3.8-10.6)
[2016-12-27] MEDS ORDERED: PANTOPRAZOLE 40 MG TABLET PO SCH (07:30)
[2016-12-27 07:57] LABS: Creatine Kinase 77 U/L (55-170)
[2016-12-27 08:10] LABS: Creatine Kinase MB 0.8 ng/mL (0.0-2.4); Troponin I <0.012 ng/mL (0.000-0.034)
[2016-12-27] MEDS ORDERED: CLOPIDOGREL 75 MG TAB PO SCH (09:00)
[2016-12-27] MEDS ORDERED: ASPIRIN 81 MG PO SCH (09:00)
[2016-12-27] MEDS ORDERED: VENLAFAXINE HCL ER 150 MG CAP PO SCH (09:00)
--- NOTE | 2016-12-27 10:12 | CONS ---
CONSULTATION Mr. Scott was seen by me yesterday. He came in with very atypical pain. He is resting comfortably without symptoms. Whenever I walk into the room, he complains of having chest pain and has been seeking pain medications. His pain is atypical and does not require any intervention or further evaluation at this time. I am recommending he should follow up with his primary care physician in [facility] that is where he claims he has his primary care physician. He underwent a cardiac cath in 2014 as well and at that time, the LAD stent was patent and he does not have any obstructive CAD in other vessels. Vital signs are stable. The EKG does not reveal any ST-segment changes. EKG from this morning is suggestive of early repolarization. Physical exam there are no new significant findings and he can be discharged today to follow up with his clinical specialist medical device in [facility]. SYBIL / OLIVIA: [id number] /
[2016-12-27] MEDS: BACLOFEN 10 MG TAB PO SCH (10:52)
[2016-12-27] MEDS: GABAPENTIN 300 MG CAP PO SCH (10:52)
--- NOTE | 2016-12-27 11:00 | P.HPIM ---
History of Present Illness H&P Date: 12/26/16 Chief Complaint: chest pain 56-year-old male with history of coronary artery disease and comes in with symptoms of chest pain. Patient says chest pain has been ongoing for the past 3 days been constant no factors to make it worse or better. Does describe some pruritus of breath with it. Radiation to his arms. He says this is similar to what he had when he had his previous heart attack. Review of Systems All systems: negative Constitutional: Denies chills, Denies fever Cardiovascular: Reports chest pain, Reports dyspnea on exertion Respiratory: Denies cough, Denies hemoptysis Gastrointestinal: Denies abdominal pain, Denies diarrhea, Denies nausea, Denies vomiting Past Medical History Past Medical History: Coronary Artery Disease (CAD), Chest Pain / Angina, COPD, Hyperlipidemia, Myocardial Infarction ([place]), Osteoarthritis ([place]) Additional Past Medical History / Comment(s): Past alcoholism, pt states today was the first time he heard he might have COPD, arthrities back and bilateral knees, recent (10/2016) fall and hit L side of head and had loss of consciousness. Last Myocardial Infarction Date:: 2004 History of Any Multi-Drug Resistant Organisms: None Reported Past Surgical History: Bowel Resection, Heart Catheterization With Stent Additional Past Surgical History / Comment(s): Cardiac stents x 3, bowel surgery for pinpoint hole in bowel, L knee arthroscopy. Past Anesthesia/Blood Transfusion Reactions: No Reported Reaction Date of Last Stent Placement:: 2013 Smoking Status: Current every day smoker - Past Family History Father Family Medical History: Respiratory Disorder Additional Family Medical History / Comment(s): Father at age 64 from Black lung disease Mother Family Medical History: Myocardial Infarction ([place]) Additional Family Medical History / Comment(s): Mother of an [place] at 78yrs old. Brother(s) Family Medical History: Myocardial Infarction ([place]) Additional Family Medical History / Comment(s): Patient has 10 brothers and 2 from myocardial infarction and had history of alcoholism. Sister(s) Additional Family Medical History / Comment(s): He has 7 sisters that are alive with no major medical problems. He has one son that has and one daughter that is alive and okay. Medications and Allergies Home Medications Medication Instructions Recorded Confirmed Type Aspirin EC [Ecotrin Low Dose] 81 mg PO DAILY 10/23/16 12/26/16 History Atorvastatin [Lipitor] 10 mg PO DAILY 10/23/16 12/26/16 History Cetirizine HCl [Zyrtec] 10 mg PO DAILY 10/23/16 12/26/16 History Meloxicam [Mobic] 15 mg PO DAILY 10/23/16 12/26/16 History Omeprazole 20 mg PO DAILY 10/23/16 12/26/16 History oxyCODONE ER [OxyCONTIN 80MG E.R] 80 mg PO Q12HR 10/23/16 12/26/16 History Baclofen [Lioresal] 10 mg PO TID 12/26/16 12/26/16 History Clopidogrel Bisulfate [Plavix] 75 mg PO DAILY 12/26/16 12/26/16 History Gabapentin [Neurontin] 300 mg PO TID 12/26/16 12/26/16 History QUEtiapine [SEROquel] 200 mg PO HS 12/26/16 12/26/16 History Venlafaxine HCl ER [Effexor XR] 150 mg PO DAILY 12/26/16 12/26/16 History Allergies Allergy/AdvReac Type Severity Reaction Status Date / Time blueberry Allergy Rash/Hives Verified 12/26/16 10:28 nitroglycerin Allergy Swelling Verified 12/26/16 13:56 Physical Exam Vitals: Vital Signs Temp Pulse Pulse Pulse Pulse Resp BP 12/27/16 08:00 97.8 F 75 16 12/27/16 03:44 16 12/27/16 03:36 97.7 F 70 16 12/26/16 23:47 17 12/26/16 22:41 97.9 F 75 17 12/26/16 20:00 18 12/26/16 19:56 98.4 F 67 18 12/26/16 15:50 98.5 F 65 19 12/26/16 13:32 98.5 F 76 18 12/26/16 13:06 99.5 F 12/26/16 12:32 78 18 124/82 BP Pulse Ox 12/27/16 08:00 95/60 99 12/27/16 03:44 12/27/16 03:36 106/73 99 12/26/16 23:47 12/26/16 22:41 104/58 94 L 12/26/16 20:00 12/26/16 19:56 130/74 97 12/26/16 15:50 117/79 97 12/26/16 13:32 132/83 97 12/26/16 13:06 12/26/16 12:32 99 Intake and Output 12/26/16 12/27/16 12/27/16 22:59 06:59 14:59 Intake Total 610 200 Balance 610 200 Intake: Oral 610 200 Other: Voiding Method Toilet Toilet # Voids 1 2 - Constitutional General appearance: no acute distress - EENT Eyes: EOMI, PERRLA - Neck Neck: no lymphadenopathy - Respiratory Respiratory: bilateral: CTA, negative: rales, rhonchi, wheezing - Cardiovascular Rhythm: regular Heart sounds: normal: S1, S2 - Gastrointestinal General gastrointestinal: no distended, normal bowel sounds - Integumentary Integumentary: normal, no rash - Neurologic Neurologic: CNII-XII intact - Psychiatric Psychiatric: A&O x's 3 Lower extremity no edema Results CBC & Chem 7: 12/27/16 06:34 12/26/16 10:40 Labs: Abnormal Lab Results - Last 24 Hours (Table) 12/26/16 12/26/16 12/26/16 Range/Units 10:40 10:40 12:07 WBC 3.5 L (3.8-10.6) k/uL RBC 3.70 L (4.30-5.90) m/uL Hgb 10.9 L (13.0-17.5) gm/dL Hct 34.3 L (39.0-53.0) % RDW 15.7 H (11.5-15.5) % Plt Count (150-450) k/uL APTT 21.9 L (22.0-30.0) sec Urine Opiates Screen Detected H (NotDetected) 12/26/16 12/27/16 Range/Units 22:11 06:34 WBC (3.8-10.6) k/uL RBC 3.47 L 3.61 L (4.30-5.90) m/uL Hgb 10.4 L 10.8 L (13.0-17.5) gm/dL Hct 33.5 L 34.0 L (39.0-53.0) % RDW 17.2 H 15.6 H (11.5-15.5) % Plt Count 139 L (150-450) k/uL APTT (22.0-30.0) sec Urine Opiates Screen (NotDetected) Thrombosis Risk Factor Assmnt - Choose All That Apply Any of the Below Risk Factors Present?: Yes Each Factor Represents 1 point: Abnormal pulmonary function (COPD), Age 41-60 years Other Risk Factors: No Other congenital or acquired thrombophilia - If yes, enter type in comment: No Thrombosis Risk Factor Assessment Total Risk Factor Score: 2 Thrombosis Risk Factor Assessment Level: Low Risk Assessment and Plan (1) Chest pain Narrative/Plan: serial troponins cardiology to evaluate Current Visit: Yes Status: Acute Code(s): R07.9 - CHEST PAIN, UNSPECIFIED SNOMED Code(s): 32416882 (2) CAD (coronary artery disease) Narrative/Plan: History of stents in the past Continue aspirin and Plavix Current Visit: No Status: Acute Code(s): I25.10 - ATHSCL HEART DISEASE OF [place] CORONARY ARTERY W/O ANG PCTRS SNOMED Code(s): 15682302 (3) Depression Narrative/Plan: Continue home medications Current Visit: No Status: Acute Code(s): F32.9 - MAJOR DEPRESSIVE DISORDER, SINGLE EPISODE, UNSPECIFIED SNOMED Code(s): 56200586 (4) Dyslipidemia Narrative/Plan: Continue Lipitor Current Visit: No Status: Acute Code(s): E78.5 - HYPERLIPIDEMIA, UNSPECIFIED SNOMED Code(s): 074000450 Plan: O await cardiology evaluation
--- NOTE | 2016-12-27 11:03 | P.DS ---
Providers Date of admission: 12/26/16 12:50 Expected date of discharge: 12/27/16 Attending physician: Reg Nascimento MD Consults: 12/26/16 13:27 Consult Physician Routine Consulting Provider: Erica Sorto Consult Reason/Comments: rectal bleeding Do you want consulting provider notified?: Yes 12/26/16 13:57 Consult Physician Routine Consulting Provider: Dary Pan Consult Reason/Comments: chest pain Do you want consulting provider notified?: Yes Primary care physician: Stated None - Discharge Diagnosis(es) (1) Chest pain Current Visit: Yes Status: Acute (2) CAD (coronary artery disease) Current Visit: No Status: Acute (3) Depression Current Visit: No Status: Acute (4) Dyslipidemia Current Visit: No Status: Acute Hospital Course: 56-year-old male with history of coronary artery disease and underwent with 3 day history of chest pain. Patient also has history of troponins which were negative he was evaluated by cardiology Dr. Pan who felt that chest pain was noncardiac in nature and needed no further workup. Patient will be discharged home at this time. We'll follow up with his own pipeline executive on an outpatient basis. No changes were recommended to his medication gen:alert and oriented lungs:clear to auscultation heart:s1s2 abdomen:soft and depressible,non tender ext:no edema Patient Condition at Discharge: Stable Plan - Discharge Summary Discharge Rx Participant: No New Discharge Prescriptions: Continue Aspirin EC [Ecotrin Low Dose] 81 mg PO DAILY Atorvastatin [Lipitor] 10 mg PO DAILY Cetirizine HCl [Zyrtec] 10 mg PO DAILY Meloxicam [Mobic] 15 mg PO DAILY Omeprazole 20 mg PO DAILY oxyCODONE ER [OxyCONTIN] 80 mg PO Q12HR QUEtiapine [SEROquel] 200 mg PO HS Gabapentin [Neurontin] 300 mg PO TID Clopidogrel Bisulfate [Plavix] 75 mg PO DAILY Baclofen [Lioresal] 10 mg PO TID Venlafaxine HCl ER [Effexor XR] 150 mg PO DAILY Discharge Medication List Aspirin EC [Ecotrin Low Dose] 81 mg PO DAILY 10/23/16 [History] Atorvastatin [Lipitor] 10 mg PO DAILY 10/23/16 [History] Cetirizine HCl [Zyrtec] 10 mg PO DAILY 10/23/16 [History] Meloxicam [Mobic] 15 mg PO DAILY 10/23/16 [History] Omeprazole 20 mg PO DAILY 10/23/16 [History] oxyCODONE ER [OxyCONTIN] 80 mg PO Q12HR 10/23/16 [History] Baclofen [Lioresal] 10 mg PO TID 12/26/16 [History] Clopidogrel Bisulfate [Plavix] 75 mg PO DAILY 12/26/16 [History] Gabapentin [Neurontin] 300 mg PO TID 12/26/16 [History] QUEtiapine [SEROquel] 200 mg PO HS 12/26/16 [History] Venlafaxine HCl ER [Effexor XR] 150 mg PO DAILY 12/26/16 [History] Follow up Appointment(s)/Referral(s): None,Stated [Primary Care Provider] - 1-2 days (As per cardiology, patient is to follow up with his pipeline executive in [place], [place].)
[2016-12-27 12:31] VITALS: BP 105/77; PULSE 72; RESP 14; TEMP 98
--- NOTE | 2016-12-27 14:53 | CONS ---
CONSULTATION DATE OF THIS CONSULTATION: December 27, 2016. REASON FOR CONSULTATION: Rectal bleeding. HISTORY: The patient is a 56-year-old male who presented to the emergency room for evaluation of chest pain. The patient reported 3 days of constant substernal chest pain and was evaluated by Cardiology who felt that this was not cardiac in origin. We were consulted because of rectal bleeding and that he has been having for the prior 5 days as well. The patient reported his bleeding to be bright red per rectum and with a bowel movement. He was not on any anticoagulation. He denied abdominal pain, nausea, vomiting, or any hematemesis or melena. There is family history of colon cancer in 2 of his brothers. The patient indicated that he had no prior colonoscopy. PAST MEDICAL HISTORY: Includes coronary atherosclerotic heart disease, COPD, and osteoarthritis. There is also history of alcoholism. The patient has also history of schizophrenia, bipolar, depression. PAST SURGICAL HISTORY: Prior surgeries include bowel resection, cardiac catheterization with stent, and left knee arthroscopy. SOCIAL HISTORY: He drinks alcohol and is a current smoker. FAMILY HISTORY: Family history positive for coronary atherosclerotic heart disease as well as colon cancer as mentioned above. REVIEW OF SYSTEMS: He denied any additional constitutional symptoms. No other cardiopulmonary symptoms. No additional gastrointestinal problems. No genitourinary complaints. No skin rashes. No endocrine problems or lymph gland abnormalities. No other psychiatric or immunologic problems. PHYSICAL EXAMINATION: He appears stated age. Very pleasant, in no acute distress. Temperature 97.7, pulse 70, respirations 16, blood pressure 106/73. Head and neck is normocephalic, atraumatic. Conjunctivae pink. Sclerae not icteric. No masses in the neck or tracheal shift. No adenopathy or thyromegaly. LUNGS: Clear to auscultation with no dullness to percussion. Heart sounds are regular. No abnormal sounds or murmurs, gallops or murmurs, friction rubs. ABDOMEN: Soft and no masses or organomegaly. No tenderness. Bowel sounds present. EXTREMITIES: No clubbing, cyanosis, or edema. Neurologic examination reveals cranial nerves intact with no gross sensory or motor abnormalities. LABORATORY DATA: Laboratory workup revealed hemoglobin stable at around 10.8. Platelet counts normal. Liver enzymes normal. Amylase and lipase normal. Urinalysis is negative. Stool for occult blood was negative. INR 1. Chest x-ray showed left bibasilar atelectasis. Correlate for COPD. ASSESSMENT: Rectal bleeding, likely related to perianal pathology such as internal hemorrhoids or anal fissures. Because of his family history of colon cancer in 2 brothers and since he never had a colonoscopy, I am recommending a colonoscopy as part of the workup of his rectal bleeding and screening for colon cancer because of age and family history as his risk factors. The patient will be discharged and this workup can be arranged as outpatient either in this community or if he chooses closer to home. I will discuss with you. SYBIL / OLIVIA: [id number] /
--- NOTE | 2016-12-28 09:15 | ECHOF ---
Referral Reason:chest pain MEASUREMENTS -------- HEIGHT: 175.3 cm WEIGHT: 70.3 kg BP: 106/73 RVIDd: 3.1 cm (< 3.3) IVSd: 1.1 cm (0.6 - 1.1) LVIDd: 3.9 cm (3.9 - 5.3) LVPWd: 1.0 cm (0.6 - 1.1) IVSs: 1.9 cm LVIDs: 2.2 cm LVPWs: 1.7 cm Ao Diam: 3.6 cm (2.0 - 3.7) AV Cusp: 1.5 cm (1.5 - 2.6) LA Diam: 3.3 cm (2.7 - 3.8) MV EXCURSION: 21.866 mm (> 18.000) MV EF SLOPE: 164 mm/s (70 - 150) EPSS: 0.7 cm MV E Abilio: 0.49 m/s MV DecT: 235 ms MV A Abilio: 0.50 m/s MV E/A Ratio: 0.98 RAP: 5.00 mmHg RVSP: 17.50 mmHg FINDINGS -------- Sinus rhythm. This was a technically good study. The left ventricular size is normal. There is mild concentric left ventricular hypertrophy. Overa ll left ventricular systolic function is normal with, an EF between 55 - 60 %. The right ventricle is normal in size and function. The left atrium is normal in size. The right atrium is normal in size. The aortic valve is trileaflet, and appears structurally normal. No aortic stenosis or regurgitation. The mitral valve leaflets are mildly thickened. Mild mitral regurgitation is present. Mild tricuspid regurgitation present. The right ventricular systolic pressure, as measured by Doppl er, is 17.50mmHg. Pulmonic valve appears structurally normal. The aortic root size is normal. The pericardium is normal. CONCLUSIONS -------- 1. Sinus rhythm. 2. This was a technically good study. 3. The left ventricular size is normal. 4. There is mild concentric left ventricular hypertrophy. 5. Overall left ventricular systolic function is normal with, an EF between 55 - 60 %. 6. The right ventricle is normal in size and function. 7. The left atrium is normal in size. 8. The right atrium is normal in size. 9. The aortic valve is trileaflet, and appears structurally normal. No aortic stenosis or regurgitati on. 10. The mitral valve leaflets are mildly thickened. 11. Mild mitral regurgitation is present. 12. Mild tricuspid regurgitation present. 13. The right ventricular systolic pressure, as measured by Doppler, is 17.50mmHg. 14. Pulmonic valve appears structurally normal. 15. The aortic root size is normal. 16. The pericardium is normal. READING TUTOR: Nano Mathews RDCS
== END 2016-12-27 14:54 | disposition home or self-care (01) ==
LOC: EC 10:06 → 3OBS 12:50
PROVIDERS: ADMIT Internal Medicine; ATTEND Internal Medicine
DX: R07.89 Other chest pain (principal); J44.9 Chronic obstructive pulmonary disease, unspecified; I25.10 Atherosclerotic heart disease of native coronary artery without angina pectoris; Z95.5 Presence of coronary angioplasty implant and graft; I10 Essential (primary) hypertension; E78.5 Hyperlipidemia, unspecified; K62.5 Hemorrhage of anus and rectum; F17.210 Nicotine dependence, cigarettes, uncomplicated; F20.9 Schizophrenia, unspecified; F31.9 Bipolar disorder, unspecified; M19.90 Unspecified osteoarthritis, unspecified site; F10.21 Alcohol dependence, in remission; I25.2 Old myocardial infarction; Z79.1 Long term (current) use of non-steroidal anti-inflammatories (NSAID); Z79.02 Long term (current) use of antithrombotics/antiplatelets; Z79.82 Long term (current) use of aspirin; Z79.899 Other long term (current) drug therapy; Z91.018 Allergy to other foods; Z88.8 Allergy status to other drugs, medicaments and biological substances; Z82.49 Family history of ischemic heart disease and other diseases of the circulatory system
CPT/HCPCS: 99285 ×2; 96374 ×2; 96376 ×2; 36415; 93005; 93306; 85379; 83880; 80053; 82550 ×2; 82553 ×2; 83690; 83735; 84484 ×2; 85025; 85027 ×2; 85610; 85730; 82272; 81003; 80306; 71020; G0378 ×2; J2270 ×2

== ENCOUNTER 2018-11-10 03:36 | Observation (INO) | payer MEDICARE, OTHER ==
[2018-11-10 04:08] LABS: HCT 39.7 % (39.0-53.0); HGB 12.5 gm/dL (13.0-17.5); MCH 31.9 pg (25.0-35.0); MCHC 31.6 g/dL (31.0-37.0); MCV 100.8 fL (80.0-100.0); Macrocytosis Slight; Mean Platelet Volume 7.5; Platelet Count 176 k/uL (150-450); RBC 3.94 m/uL (4.30-5.90); RDW 14.5 % (11.5-15.5); WBC 3.5 k/uL (3.8-10.6)
[2018-11-10 04:21] LABS: INR 0.9 (<1.2); Partial Thromboplastin Time 22.6 sec (22.0-30.0); Prothrombin Time 9.9 sec (9.0-12.0)
--- NOTE | 2018-11-10 04:27 | ED ---
Chest Pain HPI - General Chief Complaint: Chest Pain Stated Complaint: Chest Pain Time Seen by Provider: 11/10/18 03:51 Source: patient Mode of arrival: wheelchair Limitations: physical limitation - History of Present Illness Initial Comments: Lele is a 58 yo -Martiniquais male with a past medical history of coronary artery disease and SD in the past stenting 3. Patient presents the emergency department today for evaluation of 3 days of chest pain. Patient reports that his mother approximately a week and half ago, he's been under a lot of emotional stress as he has become the adoptive parent to his 4-year-old grandson. He is also dealing with his stepdaughter recently leaving rehab for drug addiction. Patient states that this is all but a lot for him to handle. He states that being the caregiver for 4-year-old is quite exhausting she states that he gets tired very easily she gets lightheaded when he is on his feet for too long and he gets chest pain when he strained to keep up with his grandson. Patient states that this is been going on for some period but the past 3 days has been worse. Patient states that this evening he was having chest pain, he admits that he drank a few beers hoping he be able to relax and go to sleep. Patient states that he was unable to sleep and became concerned so he decided to come the ER for evaluation. Patient typically lives in [facility] with cardiology at that area, he states that he saw his plug sorter 5 or 6 months ago, he's not on any antiplatelet or anticoagulant medication. He reports that his last cardiac catheterization and stenting was 5-6 years ago. - Related Data Home Medications Medication Instructions Recorded Confirmed Aspirin EC [Ecotrin Low Dose] 81 mg PO DAILY 10/23/16 01/31/17 Atorvastatin [Lipitor] 10 mg PO DAILY 10/23/16 01/31/17 Cetirizine HCl [Zyrtec] 10 mg PO DAILY 10/23/16 01/31/17 Meloxicam [Mobic] 15 mg PO DAILY 10/23/16 01/31/17 Omeprazole 20 mg PO DAILY 10/23/16 01/31/17 oxyCODONE ER [OxyCONTIN] 80 mg PO Q12HR PRN 10/23/16 01/31/17 Baclofen [Lioresal] 10 mg PO TID 12/26/16 01/31/17 Gabapentin [Neurontin] 300 mg PO TID 12/26/16 01/31/17 HYDROcodone/APAP 10-325MG [[place] 1 tab PO TID PRN 01/31/17 01/31/17 10-325] Previous Rx's Medication Instructions Recorded Artificial Tears-Hypromellose 1 drops BOTH EYES QID PRN bottle 02/06/17 [Artificial Tear Drops] QUEtiapine [SEROquel] 200 mg PO HS #30 tab 02/06/17 Venlafaxine HCl ER [Effexor XR] 150 mg PO DAILY #30 cap.er.24h 02/06/17 Allergies Allergy/AdvReac Type Severity Reaction Status Date / Time blueberry Allergy Rash/Hives Verified 11/10/18 03:41 nitroglycerin Allergy Swelling Verified 11/10/18 03:41 Review of Systems ROS Statement: Those systems with pertinent positive or pertinent negative responses have been documented in the HPI. ROS Other: All systems not noted in ROS Statement are negative. EKG Findings - EKG Comments: EKG Findings:: EKG was obtained which she complained of chest pain, EKG obtained at 3:49 AM, rate is 84 rhythm is sinus with a leftward axis, normal intervals, MS 156, QRS 78, QTC is 465 there are no acute ST elevations or depressions, no evidence of acute ischemia or infarction. Past Medical History Past Medical History: Coronary Artery Disease (CAD), Chest Pain / Angina, COPD, Hyperlipidemia, Myocardial Infarction (SD), Osteoarthritis (OA) Additional Past Medical History / Comment(s): Past alcoholism, pt states today was the first time he heard he might have COPD, arthrities back and bilateral knees, recent (10/2016) fall and hit L side of head and had loss of consciousness. Last Myocardial Infarction Date:: 2004 History of Any Multi-Drug Resistant Organisms: None Reported Past Surgical History: Bowel Resection, Heart Catheterization With Stent Additional Past Surgical History / Comment(s): Cardiac stents x 3, bowel surgery for pinpoint hole in bowel, L knee arthroscopy. Past Anesthesia/Blood Transfusion Reactions: No Reported Reaction Date of Last Stent Placement:: 2013 Past Psychological History: Bipolar, Depression, Schizophrenia Smoking Status: Current every day smoker Past Alcohol Use History: Daily, Occasional Past Drug Use History: None Reported - Past Family History Father Family Medical History: Respiratory Disorder Additional Family Medical History / Comment(s): Father at age 64 from Black lung disease Mother Family Medical History: Myocardial Infarction (SD) Additional Family Medical History / Comment(s): Mother of an SD at 78yrs old. Brother(s) Family Medical History: Myocardial Infarction (SD) Additional Family Medical History / Comment(s): Patient has 10 brothers and 2 from myocardial infarction and had history of alcoholism. Sister(s) Additional Family Medical History / Comment(s): He has 7 sisters that are alive with no major medical problems. He has one son that has and one daughter that is alive and okay. General Exam - General Exam Comments Initial Comments: Physical Exam GENERAL: Patient is well-developed and well-nourished. Patient is nontoxic and well- hydrated and is in no distress. HENT: Normocephalic, Atraumatic. EYES: PERRL, EOMI PULMONARY: Unlabored respirations. No audible rales rhonchi or wheezing was noted. CARDIOVASCULAR: There is a regular rate and rhythm without any murmurs gallops or rubs. ABDOMEN: Soft and nontender with normal bowel sounds. SKIN: Skin is clear with no lesions or rashes and otherwise unremarkable. : Deferred NEUROLOGIC: Patient is alert and oriented x3. Moving all extremities spontaneously MUSCULOSKELETAL: Normal extremities with adequate strength and full range of motion. No lower extremity swelling or edema. No calf tenderness. PSYCHIATRIC: Tearful and expresses stress Limitations: physical limitation Course Vital Signs 11/10/18 11/10/18 03:39 04:40 Temperature 97.6 F Pulse Rate 100 77 Respiratory 18 18 Rate Blood Pressure 124/70 94/74 O2 Sat by Pulse 98 98 Oximetry Chest Pain MDM - MDM The patient was seen and evaluated history is obtained from the patient The 58-year-old -Martiniquais male with known coronary artery disease presenting with chest pain, exercise intolerance, exertional chest pain and dyspnea EKG is nonischemic labs and imaging were ordered Labs are within normal limits troponin is not elevated. Given patient's risk factors patient would feel more comfortable being admitted to the hospital for further evaluation. Patient care discussed with Dr Red who accepts admission Disposition Clinical Impression: Chest pain Disposition: ADMITTED IP TO THIS HOSP Condition: Stable Is patient prescribed a controlled substance at d/c from ED?: No
[2018-11-10 04:33] LABS: ALT 15 U/L (21-72); AST 35 U/L (17-59); African American GFR (CKD) >90 (>60 ml/min/1.73 sqM); Albumin 4.7 g/dL (3.5-5.0); Alkaline Phosphatase 39 U/L (38-126); Anion Gap 7 mmol/L; Blood Urea Nitrogen 7 mg/dL (9-20); Calcium 9.9 mg/dL (8.4-10.2); Carbon Dioxide 30 mmol/L (22-30); Chloride 107 mmol/L (98-107); Glucose 99 mg/dL (74-99); Magnesium 2.2 mg/dL (1.6-2.3); Sodium 144 mmol/L (137-145); Total Bilirubin 0.8 mg/dL (0.2-1.3); Total Protein 8.2 g/dL (6.3-8.2)
[2018-11-10 04:38] LABS: Band Neutrophils % 1 %; Eosinophils # (M) 0.04 k/uL (0-0.7); Lymphocytes # (M) 1.51 k/uL (1.0-4.8); Monocytes # (M) 0.21 k/uL (0-1.0); Neutrophils % (M) 49 %; Nucleated Red Blood Cells 0 /100 WBC (0-0); Total Cells Counted 100
[2018-11-10 04:39] LABS: Large Platelets Present; Target Cells Present
[2018-11-10 04:40] LABS: Anisocytosis (M) Present; Polychromasia Present
[2018-11-10 04:45] LABS: Potassium 5.8 mmol/L (3.5-5.1)
--- NOTE | 2018-11-10 04:52 | XR ---
EXAM: XR Chest, 2 Views CLINICAL HISTORY: Chest Pain TECHNIQUE: Frontal and lateral views of the chest. COMPARISON: 12/26/2016 FINDINGS: Lungs: Probable mild right basilar atelectasis, although infiltrates cannot be definitively excluded. Hyperinflation of lungs is again noted. Pleural space: Unremarkable. No pneumothorax. Heart: Unremarkable. No cardiomegaly. Mediastinum: Unremarkable. Bones/joints: Essentially unchanged. Soft tissues: Lucency overlying the right lateral chest wall likely represents air between skin folds, although subcutaneous emphysema cannot be definitively excluded. IMPRESSION: 1. Probable mild right basilar atelectasis, although infiltrates cannot be definitively excluded. 2. Hyperinflation of lungs is again noted. Correlate clinically for COPD. 3. Lucency overlying the right lateral chest wall likely represents air between skin folds, although subcutaneous emphysema cannot be definitively excluded. Correlate clinically.
[2018-11-10] MEDS: MORPHINE SULFATE 2 MG/ML SYRINGE IVP PRN ×4 (10:17→22:00)
[2018-11-10] MEDS ORDERED: SODIUM POLYSTYRENE SULFONATE 15 GM/60 ML BOTTLE PO STA (12:08)
[2018-11-10] MEDS ORDERED: HEPARIN SODIUM,PORCINE 5,000 UNIT/ML 1 ML VIAL IV PRN (12:19)
[2018-11-10] MEDS ORDERED: HEPARIN SODIUM,PORCINE 5,000 UNIT/ML 1 ML VIAL IV ONE (12:19)
--- NOTE | 2018-11-10 12:22 | P.HPIM ---
History of Present Illness H&P Date: 11/10/18 The patient is a 58-year-old male with a PMH of coronary artery disease status post 3 stents presented to the ED with complaints of substernal chest discomfort ongoing for the previous 3-5 days. The patient notes that his pain started suddenly 3 days ago, gradually increased, substernal, nonradiating, 10 out of 10, constant, pressure-like, with associated shortness of breath, nausea, vomiting, diaphoresis, and episodes of dizziness. The patient notes that the pain feels very similar to when he previously had his first PA. The pain is not- pleuritic, is worsened with exertion, alleviated with rest. Patient denied fever, chills, cough, syncope, diarrhea, recent travel, or leg pain. The ady ent notes compliance with his home medications including his antiplatelets. The patient notes that his mother a week and a half ago and that he has been having a difficult time coping, along with having multiple issues with his family including a granddaughter who is in fpc. Patient underwent an extensive evaluation in the emergency room with EKG showing normal sinus rhythm at 84 bpm with left axis deviation and a QTC of 465, chest x-ray showing possible COPD along with a right chest wall lucency. Laboratory evaluation revealed a WBC count 3.5, hemoglobin 12.5, platelets 176, sodium 144, potassium 5.8, BUN 7, creatinine 0.72. Patient was admitted for further management and evaluation by cardiology. Review of Systems Pertinent positives and negatives as discussed in HPI, a complete review of systems was performed and all other systems are negative. Past Medical History Past Medical History: Coronary Artery Disease (CAD), Chest Pain / Angina, Hyperlipidemia, Myocardial Infarction (PA), Osteoarthritis (OA) Additional Past Medical History / Comment(s): Pt denies COPD, arthritis in back and bilateral knees, benign colon polyps Last Myocardial Infarction Date:: 2004 History of Any Multi-Drug Resistant Organisms: None Reported Past Surgical History: Bowel Resection, Heart Catheterization With Stent Additional Past Surgical History / Comment(s): Cardiac stents x 3, bowel surgery for pinpoint hole in bowel, L knee arthroscopy, colonoscopy/benign polypectomies. Past Anesthesia/Blood Transfusion Reactions: No Reported Reaction Date of Last Stent Placement:: 2013 Smoking Status: Current every day smoker - Past Family History Father Family Medical History: Respiratory Disorder Additional Family Medical History / Comment(s): Father at age 64 from Black lung disease Mother Family Medical History: Myocardial Infarction (PA) Additional Family Medical History / Comment(s): Mother of an PA at 78yrs old. Brother(s) Family Medical History: Myocardial Infarction (PA) Additional Family Medical History / Comment(s): Patient has 10 brothers and 2 from myocardial infarction and had history of alcoholism. Sister(s) Additional Family Medical History / Comment(s): He has 7 sisters that are alive with no major medical problems. He has one son that has and one daughter that is alive and okay. Medications and Allergies Home Medications Medication Instructions Recorded Confirmed Type Baclofen [Lioresal] 10 mg PO TID 12/26/16 11/10/18 History Gabapentin [Neurontin] 300 mg PO HS 12/26/16 11/10/18 History HYDROcodone/APAP 10-325MG [[place] 1 tab PO TID 01/31/17 11/10/18 History 10-325] Allergies Allergy/AdvReac Type Severity Reaction Status Date / Time blueberry Allergy Rash/Hives Verified 11/10/18 09:08 nitroglycerin Allergy Swelling Verified 11/10/18 09:08 Physical Exam Vitals: Vital Signs Temp Pulse Resp BP Pulse Ox 11/10/18 10:00 82 16 115/82 98 11/10/18 09:00 80 16 100/71 98 11/10/18 07:23 98.0 F 80 19 100/71 98 11/10/18 04:40 77 18 94/74 98 11/10/18 03:39 97.6 F 100 18 124/70 98 Intake and Output 11/09/18 11/10/18 11/10/18 22:59 06:59 14:59 Other: Weight 68.039 kg General: non toxic, no distress, appears at stated age, normal weight Derm: no unusual rashes/lesions no unusual ecchymoses, warm, dry Head: atraumatic, normocephalic, symmetric Eyes: EOMI, no lid lag, anicteric sclera, pupils equal round reactive to light ENT: Nose and ears atraumatic, no thrush, no pharyngeal erythema Neck: No thyromegaly, no cervical lymphadenopathy, trachea midline, supple Mouth: no lip lesion, mucus membranes moist Cardiovascular: S1S2 reg, no murmur, positive posterior tibial pulse bilateral, no edema, capillary refill less than 2 seconds, no chest wall tenderness Lungs: CTA bilateral, no rhonchi, no rales , no accessory muscle use Abdominal: soft, nontender to palpation, no guarding, no appreciable organomegaly, normal bowel sounds Ext: no gross muscle atrophy, muscle strength 5 out of 5 in all 4 extremities grossly, no contractures, Neuro: CN II-XI grossly intact, light touch intact all 4 extremities, finger to nose within normal limits, Psych: Alert, oriented, appropriate affect Results CBC & Chem 7: 11/10/18 03:55 11/10/18 03:55 Labs: Abnormal Lab Results - Last 24 Hours (Table) 11/10/18 11/10/18 Range/Units 03:55 03:55 WBC 3.5 L (3.8-10.6) k/uL RBC 3.94 L (4.30-5.90) m/uL Hgb 12.5 L (13.0-17.5) gm/dL MCV 100.8 H (80.0-100.0) fL Potassium 5.8 H (3.5-5.1) mmol/L BUN 7 L (9-20) mg/dL ALT 15 L (21-72) U/L Thrombosis Risk Factor Assmnt - Choose All That Apply Any of the Below Risk Factors Present?: Yes Each Factor Represents 1 point: Age 41-60 years Other Risk Factors: No Other congenital or acquired thrombophilia - If yes, enter type in comment: No Thrombosis Risk Factor Assessment Total Risk Factor Score: 1 Thrombosis Risk Factor Assessment Level: Low Risk Assessment and Plan Plan: Unstable angina -C/w Aspirin 325 mg, Plavix 75 mg, Lipitor 80 mg -Cardiology consult -Cardiac monitoring -Echocardiogram -Heparin infusion Hyperkalemia -Status post kayexelate -Monitor BMP DVT prophylaxis -Heparin infusion The patient is admitted with an anticipated less than 2 midnight stay for evaluation of chest pain CODE STATUS:Full Code Discussed with: Patient Anticipated discharge date: 1-[address]: Home A total of 35 minutes was spent on the care of this complex patient more than 50% of the time was spent in counseling and care coordination.
[2018-11-10] MEDS ORDERED: HEPARIN SOD,PORK IN 0.45% NACL 25,000 UNIT in 0.45% NACL 1 250ML.BAG IV SCH (12:30)
[2018-11-10] MEDS ORDERED: CLOPIDOGREL 75 MG TAB PO SCH (12:30)
--- NOTE | 2018-11-10 13:03 | P.CRDCN ---
History of Present Illness History of present illness: This is a pleasant 58-year-old -[place] male past medical history significant for coronary artery disease status post stent placement to the LAD, dyslipidemia, bipolar, depression, schizophrenia and chronic nicotine dependence. We have been asked to see the patient in consultation secondary to chest discomfort. She reports the emergency department with complaints of chest pain, shortness of breath, intermittent dizzy spells and increased fatigue. He states he is the primary caregiver for his 5-year-old grandson and has been doing a significant amount of stress secondary to his stepdaughters drug addiction. The previous 3 days he has noticed increased shortness of breath that has been quite constant and not exacerbated by activity or exertion. He also has had a heavy pressure sensation in the anterior midsternal portion of his chest that has been constant for 3 days with no specific aggravating or alleviating factors. The heaviness is in his chest is not exacerbated by activity, is not respirophasic and is not worsened with cough. There is no radiation to the arm, back, neck or jaw. He states he has not been sleeping for the previous 2 nights and has had intermittent sensations of fever/chills. He is also coughing a dry cough with no significant sputum production. He also complains of some intermittent nausea and has vomited 1 time, no palpitations. He denies orthonea or PND. EKG reveals sinus mechanism, LVH and left axis deviation. No acute ST or T wave abnormalities noted. Chest x-ray reveals mild right basilar atelectasis, infiltrates cannot be definitively excluded, hyperinflation suggestive of COPD, lucency over the right lateral chest wall presented with possible air between the skin folds. Laboratory data reviewed, WBC 3.5, hemoglobin 12.5, platelets 176, sodium 144, potassium 5.8, creatinine 0.72, cardiac enzymes negative 2, proBNP 36, magnesium 2.2. He currently takes no daily cardiac medications. He underwent cardiac catheterization in 2015 revealing a patent stent of the LAD and otherwise normal coronary arteries. At the time of my exam: CONSTITUTIONAL: Denies fever. Denies chills. EYES: Denies blurred vision. Denies vision changes. Denies eye pain. EARS, NOSE, MOUTH & THROAT: Denies headache. Denies sore throat. Denies ear pain. CARDIOVASCULAR: Complains of chest pain. Complains of shortness of breath. Denies orthopnea. Denies PND. Denies palpitations. RESPIRATORY: Complains of cough. GASTROINTESTINAL: Denies abdominal pain. Denies diarrhea. Denies constipation. Denies nausea. Denies vomiting. MUSCULOSKELETAL: Denies myalgias. INTEGUMENTARY: Denies pruitis. Denies rash. NEUROLOGIC: Denies numbness. Denies tingling. Denies weakness. PSYCHIATRIC: Denies anxiety. Denies depression. ENDOCRINE: Complains of fatigue. Denies weight change. Denies polydipsia. Denies polyurina. GENITOURINARY: Denies burning, hematuria or urgency with micturation. HEMATOLOGIC: Denies history of anemia. Denies bleeding. Blood pressure 115/82 heart rate 82 afebrile maintaining oxygen saturation on room air GENERAL: This is a 58-year-old -[place] male in no apparent distress at the time of my examination. HEENT: Head is atraumatic, normocephalic. Pupils are equal, round. Sclerae anicteric. Conjunctivae are clear. Mucous membranes of the mouth are moist. Neck is supple. There is no jugular venous distention. No carotid bruit is heard. LUNGS: Course rhonchi noted on the left upper lobe that did improve after asking to cough deep, clear on the right. No wheezes or rales. No chest wall tenderness is noted on palpation or with deep breathing. HEART: Regular rate and rhythm with systolic ejection murmur at the left sternal border, no rubs or gallops. S1 and S2 heard. ABDOMEN: Soft, nontender. Bowel sounds are heard. No organomegaly noted. EXTREMITIES: No evidence of peripheral edema and no calf tenderness noted. VASCULAR: Radial and dorsalis pedis pulses palpated, no evidence of clubbing. NEUROLOGIC: Patient is awake, alert and oriented x3. ASSESSMENT Constant chest pain for 3 days, normal cardiac enzymes. An acute event has been ruled out. He denies recent trauma or new activity. Hyperkalemia History of coronary artery disease Dyslipidemia Underlying psychiatric illness Chronic nicotine dependence PLAN An acute coronary event has been ruled out. Discontinue heparin infusion. Obtain 2D echocardiogram and doppler study to assess cardiac structure and function. Check d-dimer. Consider CT imaging of the chest per primary care team given abnormal chest xray. Thank you kindly for this consultation. Nurse Practitioner note has been reviewed, I agree with a documented findings and plan of care. Patient was seen and examined. Past Medical History Past Medical History: Coronary Artery Disease (CAD), Chest Pain / Angina, Hyperlipidemia, Myocardial Infarction (DC), Osteoarthritis (OA) Additional Past Medical History / Comment(s): Pt denies COPD, arthritis in back and bilateral knees, benign colon polyps Last Myocardial Infarction Date:: 2004 History of Any Multi-Drug Resistant Organisms: None Reported Past Surgical History: Bowel Resection, Heart Catheterization With Stent Additional Past Surgical History / Comment(s): Cardiac stents x 3, bowel surgery for pinpoint hole in bowel, L knee arthroscopy, colonoscopy/benign polypectomies. Past Anesthesia/Blood Transfusion Reactions: No Reported Reaction Date of Last Stent Placement:: 2013 Smoking Status: Current every day smoker - Past Family History Father Family Medical History: Respiratory Disorder Additional Family Medical History / Comment(s): Father at age 64 from Black lung disease Mother Family Medical History: Myocardial Infarction (DC) Additional Family Medical History / Comment(s): Mother of an DC at 78yrs old. Brother(s) Family Medical History: Myocardial Infarction (DC) Additional Family Medical History / Comment(s): Patient has 10 brothers and 2 from myocardial infarction and had history of alcoholism. Sister(s) Additional Family Medical History / Comment(s): He has 7 sisters that are alive with no major medical problems. He has one son that has and one daughter that is alive and okay. Medications and Allergies Home Medications Medication Instructions Recorded Confirmed Type Baclofen [Lioresal] 10 mg PO TID 12/26/16 11/10/18 History Gabapentin [Neurontin] 300 mg PO HS 12/26/16 11/10/18 History HYDROcodone/APAP 10-325MG [[place] 1 tab PO TID 01/31/17 11/10/18 History 10-325] Allergies Allergy/AdvReac Type Severity Reaction Status Date / Time blueberry Allergy Rash/Hives Verified 11/10/18 09:08 nitroglycerin Allergy Swelling Verified 11/10/18 09:08 Physical Exam Vitals: Vital Signs Temp Pulse Resp BP Pulse Ox 11/10/18 10:00 82 16 115/82 98 11/10/18 09:00 80 16 100/71 98 11/10/18 07:23 98.0 F 80 19 100/71 98 11/10/18 04:40 77 18 94/74 98 11/10/18 03:39 97.6 F 100 18 124/70 98 Intake and Output 11/09/18 11/10/18 11/10/18 22:59 06:59 14:59 Other: Weight 68.039 kg Results 11/10/18 03:55 11/10/18 03:55 Cardiac Enzymes 11/10/18 11/10/18 11/10/18 Range/Units 03:55 03:55 10:58 AST 35 (17-59) U/L Troponin I <0.012 <0.012 (0.000-0.034) ng/mL Coagulation 11/10/18 Range/Units 03:55 PT 9.9 (9.0-12.0) sec APTT 22.6 (22.0-30.0) sec CBC 11/10/18 Range/Units 03:55 WBC 3.5 L (3.8-10.6) k/uL RBC 3.94 L (4.30-5.90) m/uL Hgb 12.5 L (13.0-17.5) gm/dL Hct 39.7 (39.0-53.0) % Plt Count 176 (150-450) k/uL Comprehensive Metabolic Panel 11/10/18 Range/Units 03:55 Sodium 144 (137-145) mmol/L Potassium 5.8 H (3.5-5.1) mmol/L Chloride 107 (98-107) mmol/L Carbon Dioxide 30 (22-30) mmol/L BUN 7 L (9-20) mg/dL Creatinine 0.72 (0.66-1.25) mg/dL Glucose 99 (74-99) mg/dL Calcium 9.9 (8.4-10.2) mg/dL AST 35 (17-59) U/L ALT 15 L (21-72) U/L Alkaline Phosphatase 39 (38-126) U/L Total Protein 8.2 (6.3-8.2) g/dL Albumin 4.7 (3.5-5.0) g/dL Current Medications Generic Name Dose Route Start Last Admin Trade Name Freq PRN Reason Stop Dose Admin Aspirin 81 mg 11/11/18 09:00 Aspirin PO DAILY [facility] Atorvastatin Calcium 80 mg 11/10/18 12:30 Lipitor PO DAILY [facility] Heparin Sodium (Porcine) 0 unit 11/10/18 12:19 Heparin IV PER PROTOCOL PRN Low PTT Protocol Morphine Sulfate 2 mg 11/10/18 10:07 11/10/18 10:17 Morphine Sulfate (Inj) IVP 2 mg Q4H PRN Administration Pain/Discomfort Intake and Output 11/09/18 11/10/18 11/10/18 22:59 06:59 14:59 Other: Weight 68.039 kg 11/10/18 03:55 11/10/18 03:55
[2018-11-10 13:34] LABS: HCT 35.4 % (39.0-53.0); HGB 11.5 gm/dL (13.0-17.5); Hypochromasia Slight; MCH 32.2 pg (25.0-35.0); MCHC 32.4 g/dL (31.0-37.0); MCV 99.3 fL (80.0-100.0); Mean Platelet Volume 6.9; Platelet Count 172 k/uL (150-450); RBC 3.57 m/uL (4.30-5.90); RDW 14.3 % (11.5-15.5); WBC 3.1 k/uL (3.8-10.6)
[2018-11-10] MEDS: ATORVASTATIN 80 MG TAB PO SCH (14:06)
[2018-11-10 14:20] LABS: Eosinophils # (M) 0.06 k/uL (0-0.7); Lymphocytes # (M) 1.43 k/uL (1.0-4.8); Monocytes # (M) 0.37 k/uL (0-1.0); Neutrophils % (M) 40 %; Nucleated Red Blood Cells 0 /100 WBC (0-0); Total Cells Counted 100
--- NOTE | 2018-11-10 21:07 | CT ---
EXAMINATION TYPE: CT chest angio for PE DATE OF EXAM: 11/10/2018 COMPARISON: 10/23/2016 HISTORY: elevated d-dimer CT DLP: 354.2 mGycm Automated exposure control for dose reduction was used. CONTRAST: CT Chest for pulmonary embolism performed with with IV Contrast, patient injected with 85cc mL of Iso peyman 300. There are 3-D post processed images. FINDINGS: There is mild pulmonary emphysema. The lungs are clear of infiltrate. There is no evidence of a pulmo nary mass. There is no pleural effusion. Heart size is normal. There is no pericardial effusion. Ther e are no hilar masses. There is no mediastinal adenopathy. Thoracic aorta is intact. There is normal contrast opacification of the pulmonary arteries. There are no filling defects. There are small cysts in the liver that measure up to 1.5 cm. Bony thorax is intact. IMPRESSION: No evidence of pulmonary embolism. Mild pulmonary emphysema. No adverse change.
[2018-11-11] MEDS: MORPHINE SULFATE 2 MG/ML SYRINGE IVP PRN ×2 (02:05→06:01)
[2018-11-11 03:50] VITALS: TEMP 98.6
[2018-11-11 07:45] LABS: HCT 32.5 % (39.0-53.0); MCHC 33.7 g/dL (31.0-37.0); MCV 97.9 fL (80.0-100.0); Mean Platelet Volume 7.8; Platelet Count 169 k/uL (150-450); RBC 3.32 m/uL (4.30-5.90); RDW 14.1 % (11.5-15.5); WBC 2.9 k/uL (3.8-10.6)
[2018-11-11 07:52] LABS: African American GFR (CKD) >90 (>60 ml/min/1.73 sqM); Anion Gap 5 mmol/L; Blood Urea Nitrogen 12 mg/dL (9-20); Calcium 8.7 mg/dL (8.4-10.2); Carbon Dioxide 30 mmol/L (22-30); Chloride 102 mmol/L (98-107); Cholesterol 135 mg/dL (<200); Glucose 83 mg/dL (74-99); HDL Cholesterol 101 mg/dL (40-60); LDL Cholesterol,Calculated 27 mg/dL (0-99); Potassium 3.5 mmol/L (3.5-5.1); Sodium 137 mmol/L (137-145); Triglycerides 37 mg/dL (<150)
[2018-11-11 08:41] LABS: Basophils # (M) 0.03 k/uL (0-0.2); Eosinophils # (M) 0.09 k/uL (0-0.7); Lymphocytes # (M) 1.48 k/uL (1.0-4.8); Monocytes # (M) 0.49 k/uL (0-1.0); Neutrophils % (M) 28 %; Nucleated Red Blood Cells 0 /100 WBC (0-0); Total Cells Counted 100
[2018-11-11 08:42] LABS: Poikilocytosis (M) Present
[2018-11-11] MEDS ORDERED: ASPIRIN 81 MG PO SCH (09:00)
[2018-11-11] MEDS ORDERED: ASPIRIN 325 MG TAB PO SCH (09:00)
[2018-11-11] MEDS ORDERED: DOBUTamine DRIP for NUC MED 500 MG in DEXTROSE/WATER 1 250ML.BAG IV ONE (09:24)
[2018-11-11] MEDS: ATORVASTATIN 80 MG TAB PO SCH (09:57)
--- NOTE | 2018-11-11 12:11 | ECHOF ---
Referral Reason:chest pain MEASUREMENTS -------- HEIGHT: 175.3 cm WEIGHT: 68.0 kg BP: RVIDd: 3.5 cm (< 3.3) IVSd: 1.3 cm (0.6 - 1.1) LVIDd: 4.2 cm (3.9 - 5.3) LVPWd: 1.6 cm (0.6 - 1.1) IVSs: 1.6 cm LVIDs: 2.8 cm LVPWs: 1.7 cm LA Diam: 4.3 cm (2.7 - 3.8) LAESV Index (A-L): 30.73 ml/m Ao Diam: 3.4 cm (2.0 - 3.7) AV Cusp: 2.2 cm (1.5 - 2.6) LA Diam: 3.5 cm (2.7 - 3.8) MV EXCURSION: 19.740 mm (> 18.000) MV EF SLOPE: 58 mm/s (70 - 150) EPSS: 0.4 cm MV E Abilio: 0.60 m/s MV DecT: 165 ms MV A Abilio: 0.52 m/s MV E/A Ratio: 1.14 RAP: 5.00 mmHg RVSP: 27.16 mmHg TAPSE: 23.69 mm FINDINGS -------- Sinus rhythm. This was a technically adequate study. The left ventricular size is normal. There is mild global hypokinesis of LV . Overall left ventri cular systolic function is normal with, an EF between 55 - 60 %. The diastolic filling pattern is n ormal for the age of the patient 7.65. The right ventricle is normal in size. The left atrium is mildly dilated. LA is midly dilated 29-33ml/m2. The right atrial size is normal. The aortic valve is trileaflet, and appears structurally normal. No aortic stenosis or regurgitation. Mild mitral annular calcification present. Mild mitral regurgitation is present. Mild tricuspid regurgitation present. Right ventricular systolic pressure is normal at < 35 mmHg. There is no evidence of pulmonary hypertension. There is no pulmonic regurgitation present. The aortic root size is normal. There is no pericardial effusion. CONCLUSIONS -------- 1. Sinus rhythm. 2. This was a technically adequate study. 3. The left ventricular size is normal. 4. There is mild global hypokinesis of LV . 5. Overall left ventricular systolic function is normal with, an EF between 55 - 60 %. 6. The diastolic filling pattern is normal for the age of the patient 7.65 7. The right ventricle is normal in size. 8. The left atrium is mildly dilated. 9. LA is midly dilated 29-33ml/m2. 10. The right atrial size is normal. 11. The aortic valve is trileaflet, and appears structurally normal. No aortic stenosis or regurgitat ion. 12. Mild mitral annular calcification present. 13. Mild mitral regurgitation is present. 14. Mild tricuspid regurgitation present. 15. Right ventricular systolic pressure is normal at < 35 mmHg. 16. There is no evidence of pulmonary hypertension. 17. There is no pulmonic regurgitation present. 18. The aortic root size is normal. 19. There is no pericardial effusion. [employer] KEY HOLDER: Flores Thomas RDCS
--- NOTE | 2018-11-11 12:37 | ECHOS ---
STRESS ECHOCARDIOGRAM INDICATIONS: Chest pain. BASELINE HEART RATE: 62 BASELINE BLOOD PRESSURE: 129/70 MAXIMUM HEART RATE: 141 MAXIMUM BLOOD PRESSURE: 197/80 85% MPHR: 137 100% MPHR: 161 MAXIMUM STAGE REACHED: 4 TOTAL EXERCISE TIME: 11:30 CLINICAL INFORMATION: Dobutamine echocardiographic study was performed. Peak heart rate of 141 was achieved. Maximum blood pressure of 197/80 mmHg is noted. Resting EKG shows normal sinus rhythm with normal GA interval and QRS duration and normal ST-T waves. No ST-segment depression suggestive of ischemia was noted. Intermittent PVCs are noted. The baseline echocardiographic images reveals normal left ventricular chamber size with normal left ventricular systolic function. At the peak dose of dobutamine infusion, normal increase in the wall thickness and contractility is noted. FINAL IMPRESSION: 1. This dobutamine stress echocardiographic study is negative for stress-induced ischemia. 2. Occasional premature atrial contractions were noted. MMODL / IJN: [id number] /
[2018-11-11 13:51] VITALS: BMI 21.4
[2018-11-11 17:36] VITALS: RESP 16
[2018-11-11 17:40] VITALS: BP 112/72; PULSE 55
--- NOTE | 2018-11-11 20:15 | P.DS ---
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 Patient states that it started suddenly, gradually increased, and was nonradiating at a 10 out of 10. Is a constant pressure with associated shortness of breath, nausea, vomiting, and diaphoresis. He initially felt as though the pain was similar to his first myocardial infarction. He has had multiple family issues over the last several months. He reports that he has been compliant with his home medications of aspirin. The ER he underwent initial evaluation. His vital signs within normal limits, EKG did not show any acute ST-T wave changes, chest x-ray showed COPD, and initial laboratory analysis was essentially unremarkable other than elevated potassium which was related to hemolysis.. He is admitted for further evaluation by cardiology. Troponins remained negative. Cardiology felt as though his chest pain was not consistent with acute myocardial infarction and recommended checking a d-dimer and obtaining a 2-D echocardiogram. His d-dimer was slightly elevated at 0.84. He subsequently underwent a CTA of the chest which showed no evidence of pulmonary embolism, but mild pulmonary emphysema. Echocardiogram showed an ejection fraction of 55-60% and was remarkable for mild global hypokinesis of the left ventricle. He subsequently underwent a dobutamine stress test which was negative for stress-induced ischemia. Cholesterol profile is within normal limits. He was subsequently discharged home with recommendations for further outpatient evaluation of possible noncardiac causes of his chest pain such as COPD with costochondritis, GERD, anxiety, or gallbladder disease. He typically sees her PCP at [place] but will be in [place] for the first few both future. He will follow-up with Dr. Rubio to establish with him as a primary care physician. I have recommended outpatient pulmonary function tests to start with for to assess for emphysema due to the finding of emphysema on his CTA of the chest and chest x-ray. Patient was discharged home in stable condition. Patient seen and examined at bedside. CHest pain is better, still some pressure, lots of stress at home, Hx of heavy smoker, and lots of second hand smoke exposure. Has PCP in [place] but will be in [facility] for the foreseeable future, will establish here, I recommend outpatient PFT. Vital signs reviewed and stable. General: non toxic, no distress, appears at stated age Derm: warm, dry Head: atraumatic, normocephalic, symmetric Eyes: EOMI, no lid lag, anicteric sclera Mouth: no lip lesion, mucus membranes moist Cardiovascular: S1S2 reg, no murmur, positive posterior tibial pulse bilateral, Lungs: CTA bilateral, no rhonchi, no rales , no accessory muscle use Abdominal: soft, nontender to palpation, no guarding, no appreciable organom egaly Ext: no gross muscle atrophy, no edema, no contractures Neuro: CN II-XI grossly intact, no focal neuro deficits Psych: Alert, oriented, appropriate affect A total of 20 minutes of time were spent preparing this complex discharge summary . Patient Condition at Discharge: Stable Plan - Discharge Summary Discharge Rx Participant: No New Discharge Prescriptions: New Aspirin 81 mg PO DAILY chew Continue Gabapentin [Neurontin] 300 mg PO HS Baclofen [Lioresal] 10 mg PO TID HYDROcodone/APAP 10-325MG [[place] 10-325] 1 tab PO TID Discharge Medication List Baclofen [Lioresal] 10 mg PO TID 12/26/16 [History] Gabapentin [Neurontin] 300 mg PO HS 12/26/16 [History] HYDROcodone/APAP 10-325MG [[place] 10-325] 1 tab PO TID 01/31/17 [History] Aspirin 81 mg PO DAILY chew 11/11/18 [Rx] Follow up Appointment(s)/Referral(s): Dary Pan MD [STAFF PHYSICIAN] - 12/01/18 10:15 am (Thursday) Alen Chavez MD [STAFF PHYSICIAN] - 1-2 Days (Please call to schedule appointment could use PFT evaluation for COPD) None,Stated [Primary Care Provider] - 1-2 days Patient Instructions/Handouts: Angina (DC), COPD (Chronic Obstructive Pulmonary Disease) (DC), How Your Lungs Work (DC) Activity/Diet/Wound Care/Special Instructions: Activity: As tolerated Diet: Heart healthy Special Instructions: Follow-up with family physician for evaluation of lung function/COPD Discharge Disposition: HOME SELF-CARE
--- NOTE | 2018-11-11 20:19 | PN ---
PROGRESS NOTE Mr. Scott is a gentleman with atypical chest pain who came into the hospital with chest discomfort. Troponins are negative. Vitals are stable. He is doing well, has no chest pain, shortness of breath at this time, but earlier in the day he complained of chest heaviness and pressure and is reluctant to be discharged. He also had a previous cardiac cath several years ago. Vitals are stable. S1, S2 heard normally. Heart sounds heard distantly. Lungs are clear. Abdomen and lower extremity exam unchanged. Plan is to increase activity and perform a dobutamine echo and if this is normal, he can be discharged. MMODL / IJN: [id number] /
== END 2018-11-11 17:25 | disposition home or self-care (01) ==
LOC: EC 03:36 → 1SOBS 06:46 → 3SCARD 16:16
PROVIDERS: ADMIT Internal Medicine; ATTEND Internal Medicine
DX: R07.89 Other chest pain (principal); M94.0 Chondrocostal junction syndrome [Tietze]; R07.2 Precordial pain; R61 Generalized hyperhidrosis; R42 Dizziness and giddiness; R79.89 Other specified abnormal findings of blood chemistry; R11.2 Nausea with vomiting, unspecified; J43.9 Emphysema, unspecified; R50.9 Fever, unspecified; E87.5 Hyperkalemia; R71.8 Other abnormality of red blood cells; I25.10 Atherosclerotic heart disease of native coronary artery without angina pectoris; I25.2 Old myocardial infarction; E78.5 Hyperlipidemia, unspecified; Z95.5 Presence of coronary angioplasty implant and graft; Z86.010 Personal history of colon polyps; K21.9 Gastro-esophageal reflux disease without esophagitis; F41.9 Anxiety disorder, unspecified; K82.9 Disease of gallbladder, unspecified; M46.90 Unspecified inflammatory spondylopathy, site unspecified; M17.0 Bilateral primary osteoarthritis of knee; F31.9 Bipolar disorder, unspecified; F20.9 Schizophrenia, unspecified; F17.200 Nicotine dependence, unspecified, uncomplicated; F10.21 Alcohol dependence, in remission; Z63.4 Disappearance and death of family member; Z63.79 Other stressful life events affecting family and household; Z79.82 Long term (current) use of aspirin; Z79.1 Long term (current) use of non-steroidal anti-inflammatories (NSAID); Z79.899 Other long term (current) drug therapy; Z79.891 Long term (current) use of opiate analgesic; Z88.8 Allergy status to other drugs, medicaments and biological substances; Z91.018 Allergy to other foods; Z82.49 Family history of ischemic heart disease and other diseases of the circulatory system; Z81.1 Family history of alcohol abuse and dependence; Z83.6 Family history of other diseases of the respiratory system
CPT/HCPCS: 96376 ×3; 93005 ×2; 96374; 99285; 36415; 94760; 93306; 93351; 85379; 83880; 80061; 80053; 80048; 83735; 84484; 85025 ×2; 85610; 85730; 71046; 71275; G0378 ×3; J1250; J2270 ×2; Q9967

== ENCOUNTER 2018-11-14 13:01 | Inpatient (IN) | payer MEDICARE, OTHER ==
--- NOTE | 2018-11-14 14:12 | XR ---
EXAMINATION TYPE: XR chest 2V DATE OF EXAM: 11/14/2018 COMPARISON: November 10, 2018 HISTORY: Chest pain TECHNIQUE: Frontal and lateral views of the chest are obtained. FINDINGS: Heart is normal. Lungs are clear of consolidation. There are no hilar masses. There is no pleural effusion. Bony thorax is intact. There are chest leads. IMPRESSION: No active cardiopulmonary disease. Normal heart. No change.
[2018-11-14 14:19] LABS: HCT 39.8 % (39.0-53.0); HGB 12.8 gm/dL (13.0-17.5); MCH 32.3 pg (25.0-35.0); MCHC 32.2 g/dL (31.0-37.0); MCV 100.5 fL (80.0-100.0); Macrocytosis Slight; Mean Platelet Volume 6.8; Platelet Count 214 k/uL (150-450); RBC 3.96 m/uL (4.30-5.90); RDW 14.5 % (11.5-15.5); WBC 3.7 k/uL (3.8-10.6)
[2018-11-14 14:24] LABS: INR 0.9 (<1.2); Partial Thromboplastin Time 23.6 sec (22.0-30.0); Prothrombin Time 9.6 sec (9.0-12.0)
[2018-11-14] MEDS ORDERED: MORPHINE SULFATE 4 MG/ML SYRINGE IVP STA (14:24)
[2018-11-14] MEDS ORDERED: ASPIRIN 81 MG PO STA (14:24)
[2018-11-14 14:25] LABS: ALT 32 U/L (21-72); AST 64 U/L (17-59); African American GFR (CKD) >90 (>60 ml/min/1.73 sqM); Albumin 4.5 g/dL (3.5-5.0); Alkaline Phosphatase 45 U/L (38-126); Anion Gap 10 mmol/L; Blood Urea Nitrogen 8 mg/dL (9-20); Calcium 9.7 mg/dL (8.4-10.2); Carbon Dioxide 27 mmol/L (22-30); Chloride 105 mmol/L (98-107); Creatine Kinase 155 U/L (55-170); Glucose 76 mg/dL (74-99); Potassium 4.3 mmol/L (3.5-5.1); Sodium 142 mmol/L (137-145); Total Bilirubin 0.3 mg/dL (0.2-1.3); Total Protein 7.7 g/dL (6.3-8.2)
[2018-11-14 14:42] LABS: Lymphocytes # (M) 1.37 k/uL (1.0-4.8); Monocytes # (M) 0.48 k/uL (0-1.0); Neutrophils % (M) 50 %; Nucleated Red Blood Cells 0 /100 WBC (0-0); Total Cells Counted 100
[2018-11-14 14:43] LABS: Poikilocytosis (M) Present
--- NOTE | 2018-11-14 16:01 | ED ---
Chest Pain HPI - General Chief Complaint: Chest Pain Stated Complaint: chest pain/SOB Time Seen by Provider: 11/14/18 13:10 Source: patient, EMS Mode of arrival: EMS Limitations: no limitations - History of Present Illness Initial Comments: The patient is a 58-year-old male with past history of coronary disease who presents emergency department with recurrent chest pain. The patient was recently hospitalized at her facility for similar complaint. He was evaluated by cardiology. The patient had a stress test which was negative. He was sent home. He reports that his chest has continued and has gotten worse. He states the pain has been constant. He describes it as a left-sided chest pressure with radiation into his left arm. He feels this is an elephant is sitting on his chest. He reports it feels similar when he had his first heart attack. States that he had a negative stress test however they did find occluded vessels on his cath. Today he was in relating to the grocery store when he had a syncopal episode. He states that he remembers the chest pressure getting so severe and he felt short of breath. He then fell to the ground and was found by bystanders who called EMS. The patient did arouse without a post ictal phase. There is no seizure-like activity. No reported incontinence. The patient did not bite his tongue. He denies a ripping or tearing sensation to his back. No history of DVT or PE. Denies any calf pain or swelling. The patient did take a baby aspirin today. He reports associated nausea and diaphoresis. The patient is tearful in the examination room as he is adamant that something is wrong. He denies any vomiting, cough or hemoptysis. No fevers or chills. There are no alleviating, precipitating or modifying factors - Related Data Home Medications Medication Instructions Recorded Confirmed Baclofen [Lioresal] 10 mg PO TID 12/26/16 11/14/18 Gabapentin [Neurontin] 300 mg PO HS 12/26/16 11/14/18 HYDROcodone/APAP 10-325MG [[place] 1 tab PO TID PRN 01/31/17 11/14/18 10-325] Previous Rx's Medication Instructions Recorded Aspirin 81 mg PO DAILY chew 11/11/18 Allergies Allergy/AdvReac Type Severity Reaction Status Date / Time blueberry Allergy Rash/Hives Verified 11/14/18 13:25 nitroglycerin Allergy Swelling Verified 11/14/18 13:25 Review of Systems ROS Statement: Those systems with pertinent positive or pertinent negative responses have been documented in the HPI. ROS Other: All systems not noted in ROS Statement are negative. EKG Findings - EKG Comments: EKG Findings:: EKG demonstrates a normal sinus rhythm with ventricular rate of 99. HI interval 146. QRS 86. QTC 472. No acute ST segment elevations or depressions concerning for ischemic changes Past Medical History Past Medical History: Coronary Artery Disease (CAD), Chest Pain / Angina, Hyperlipidemia, Myocardial Infarction ([place]), Osteoarthritis (OA) Additional Past Medical History / Comment(s): Pt denies COPD, arthritis in back and bilateral knees, benign colon polyps Last Myocardial Infarction Date:: 2004 History of Any Multi-Drug Resistant Organisms: None Reported Past Surgical History: Bowel Resection, Heart Catheterization With Stent Additional Past Surgical History / Comment(s): Cardiac stents x 3, bowel surgery for pinpoint hole in bowel, L knee arthroscopy, colonoscopy/benign polypectom ies. Past Anesthesia/Blood Transfusion Reactions: No Reported Reaction Date of Last Stent Placement:: 2013 Past Psychological History: Bipolar, Depression, Schizophrenia Smoking Status: Current some day smoker Past Alcohol Use History: Daily, Occasional Past Drug Use History: None Reported - Past Family History Father Family Medical History: Respiratory Disorder Additional Family Medical History / Comment(s): Father at age 64 from Black lung disease Mother Family Medical History: Myocardial Infarction ([place]) Additional Family Medical History / Comment(s): Mother of an [place] at 78yrs old. Brother(s) Family Medical History: Myocardial Infarction ([place]) Additional Family Medical History / Comment(s): Patient has 10 brothers and 2 from myocardial infarction and had history of alcoholism. Sister(s) Additional Family Medical History / Comment(s): He has 7 sisters that are alive with no major medical problems. He has one son that has and one daughter that is alive and okay. General Exam Limitations: no limitations General appearance: alert, in no apparent distress Head exam: Present: atraumatic, normocephalic, normal inspection Eye exam: Present: normal appearance, PERRL, EOMI. Absent: scleral icterus, conjunctival injection, periorbital swelling ENT exam: Present: normal exam, mucous membranes moist Neck exam: Present: normal inspection. Absent: tenderness, meningismus, lymphadenopathy Respiratory exam: Present: normal lung sounds bilaterally. Absent: respiratory distress, wheezes, rales, rhonchi, stridor Cardiovascular Exam: Present: regular rate, normal rhythm, normal heart sounds. Absent: systolic murmur, diastolic murmur, rubs, gallop, clicks GI/Abdominal exam: Present: soft, normal bowel sounds. Absent: distended, tenderness, guarding, rebound, rigid Extremities exam: Present: normal inspection, full ROM, normal capillary refill. Absent: tenderness, pedal edema, joint swelling, calf tenderness Back exam: Present: normal inspection Neurological exam: Present: alert, oriented X3, CN II-XII intact Psychiatric exam: Present: normal affect, normal mood Skin exam: Present: warm, dry, intact, normal color. Absent: rash Course Vital Signs 11/14/18 11/14/18 11/14/18 13:08 14:42 16:44 Temperature 97.9 F 98.9 F Pulse Rate 96 98 Pulse Rate [ 89 Pulse Oximetery ] Respiratory 18 18 18 Rate Blood Pressure 108/86 118/56 Blood Pressure 127/79 [Right Arm] O2 Sat by Pulse 97 98 100 Oximetry 11/14/18 16:56 Temperature 98.2 F Pulse Rate 80 Pulse Rate [ Pulse Oximetery ] Respiratory 18 Rate Blood Pressure 118/86 Blood Pressure [Right Arm] O2 Sat by Pulse 97 Oximetry Chest Pain MDM - MDM Upon arrival, the patient is placed in room 24. A thorough history and physical exam was performed. Patient was given 324 mg of chewable aspirin and 4 mg of morphine. The patient cannot have nitroglycerin as he does have a ALLERGY. I recommended repeating laboratory studies and a chest x-ray. White blood cell 3.7, hemoglobin 12.8, hematocrit 39.8 with an MCV of 100.5. Coags are normal. Chemistries show a AST of 64. First troponin is negative. I reevaluated the patient and he does report to improvement in his chest pain. The patient does report a syncopal episode with this chest pain I do recommend hospital admission. I called and discussed the case with Dr. Desai who does accept admission of the patient. I consult the cardiology. He will be started on heparin. He has no contraindications. The patient remained in stable condition was transported to the floor Disposition Clinical Impression: Chest pain Disposition: ADMITTED IP TO THIS HOSP Condition: Stable Is patient prescribed a controlled substance at d/c from ED?: No Decision to Admit Reason: Admit from EC Decision Date: 11/14/18 Decision Time: 16:14
[2018-11-14] MEDS ORDERED: HEPARIN SODIUM,PORCINE 5,000 UNIT/ML 1 ML VIAL IV PRN (16:15)
[2018-11-14] MEDS ORDERED: NALOXONE 0.4 MG/ML 1 ML VIAL IV PRN (16:17)
[2018-11-14] MEDS: HEPARIN SOD,PORK IN 0.45% NACL 25,000 UNIT in 0.45% NACL 1 250ML.BAG IV SCH (16:55)
[2018-11-14 17:35] VITALS: BMI 20.8
[2018-11-14] MEDS: HYDROmorphone 1 MG/ML 1 ML SYRINGE IVP PRN ×2 (19:19→22:22)
[2018-11-14] MEDS: GABAPENTIN 300 MG CAP PO SCH (20:58)
[2018-11-15] MEDS: HYDROmorphone 1 MG/ML 1 ML SYRINGE IVP PRN ×8 (01:18→23:41)
[2018-11-15 06:29] LABS: HCT 35.5 % (39.0-53.0); HGB 11.2 gm/dL (13.0-17.5); Hypochromasia Slight; MCH 32.3 pg (25.0-35.0); MCHC 31.6 g/dL (31.0-37.0); MCV 102.4 fL (80.0-100.0); Macrocytosis Slight; Mean Platelet Volume 6.7; Platelet Count 160 k/uL (150-450); RBC 3.47 m/uL (4.30-5.90); RDW 14.2 % (11.5-15.5); WBC 3.7 k/uL (3.8-10.6)
[2018-11-15 06:56] LABS: Band Neutrophils % 2 %; Eosinophils # (M) 0.07 k/uL (0-0.7); Lymphocytes # (M) 1.11 k/uL (1.0-4.8); Monocytes # (M) 0.59 k/uL (0-1.0); Neutrophils % (M) 50 %; Nucleated Red Blood Cells 0 /100 WBC (0-0); Total Cells Counted 100
[2018-11-15] MEDS: ASPIRIN 81 MG PO SCH (07:54)
--- NOTE | 2018-11-15 09:08 | P.CRDCN ---
History of Present Illness Consult date: 11/15/18 Requesting physician: Bal Goldberg Jr Consult reason: chest pain Chief complaint: Chest pain, syncope History of present illness: This is a 58-year-old -Scottish gentleman with past medical history significant for coronary artery disease and prior stenting of the LAD, hypertension, hyperlipidemia, bipolar, depression, schizophrenia, chronic nicotine dependence, who was recently in the hospital a week ago with symptoms of chest discomfort. He underwent an echocardiogram with Doppler study which revealed an ejection fraction of 55-60% he also underwent a dobutamine echocardiographic study which was negative for any stress-induced ischemia. A CTA of the chest was also performed during that admission which was negative for pulmonary embolism. Patient presents to the hospital on this occasion with symptoms of severe midsternal chest pressure which she states has been going on study for the past 3 days. He states that he was in a parking lot, became quite diaphoretic and dizzy and passed out, some bystanders called EMS and he was brought here to the hospital for further evaluation and treatment. At the time of my examination this morning he continues to have moderate to severe pressure in the center of his chest he states that it feels as though an elephant is sitting in the center of his chest. Blood pressure on arrival here 108/86 heart rate of 90, 97 room air. White blood cell count 3.7, hemoglobin 11.2, platelet count 160. Sodium 142, potassium 4.3, BUN 8 and creatinine 0.7. Troponins are negative 3. Chest x-ray did not reveal any acute cardiopulmonary disease. The patient has remained afebrile since his admission. On review of the patient's telemetry strips, he hasn't been remaining in a normal sinus rhythm, there is one rhythm strip suggestive of possible nonsustained VT, however may also be artifact. Past Medical History Past Medical History: Coronary Artery Disease (CAD), Chest Pain / Angina, Hyperlipidemia, Myocardial Infarction ([place]), Osteoarthritis (OA) Additional Past Medical History / Comment(s): Pt denies COPD, arthritis in back and bilateral knees, benign colon polyps Last Myocardial Infarction Date:: 2004 History of Any Multi-Drug Resistant Organisms: None Reported Past Surgical History: Bowel Resection, Heart Catheterization With Stent Additional Past Surgical History / Comment(s): Cardiac stents x 3, bowel surgery for pinpoint hole in bowel, L knee arthroscopy, colonoscopy/benign polypectomies. Past Anesthesia/Blood Transfusion Reactions: No Reported Reaction Date of Last Stent Placement:: 2013 Past Psychological History: Bipolar, Depression, Schizophrenia Smoking Status: Current some day smoker Past Alcohol Use History: Daily, Occasional Past Drug Use History: None Reported - Past Family History Father Family Medical History: Respiratory Disorder Additional Family Medical History / Comment(s): Father at age 64 from Black lung disease Mother Family Medical History: Myocardial Infarction ([place]) Additional Family Medical History / Comment(s): Mother of an [place] at 78yrs old. Brother(s) Family Medical History: Myocardial Infarction ([place]) Additional Family Medical History / Comment(s): Patient has 10 brothers and 2 from myocardial infarction and had history of alcoholism. Sister(s) Additional Family Medical History / Comment(s): He has 7 sisters that are alive with no major medical problems. He has one son that has and one daughter that is alive and okay. Medications and Allergies Home Medications Medication Instructions Recorded Confirmed Type Baclofen [Lioresal] 10 mg PO TID 12/26/16 11/14/18 History Gabapentin [Neurontin] 300 mg PO HS 12/26/16 11/14/18 History HYDROcodone/APAP 10-325MG [[place] 1 tab PO TID PRN 01/31/17 11/14/18 History 10-325] Aspirin 81 mg PO DAILY chew 11/11/18 11/14/18 Rx Allergies Allergy/AdvReac Type Severity Reaction Status Date / Time blueberry Allergy Rash/Hives Verified 11/14/18 13:25 nitroglycerin Allergy Swelling Verified 11/14/18 13:25 Physical Exam Vitals: Vital Signs Temp Pulse Pulse Resp BP BP Pulse Ox 11/15/18 07:58 100.0 F H 74 20 122/73 97 11/15/18 04:00 98.4 F 77 18 109/75 96 11/15/18 00:00 97.9 F 89 18 122/79 96 11/14/18 20:00 97.7 F 112 H 19 129/87 96 11/14/18 16:56 98.2 F 80 18 118/86 97 11/14/18 16:44 98.9 F 89 18 127/79 100 11/14/18 14:42 98 18 118/56 98 11/14/18 13:08 97.9 F 96 18 108/86 97 Intake and Output 11/14/18 11/15/18 11/15/18 22:59 06:59 14:59 Intake Total 408.582 480 Balance 408.582 480 Intake: Intake, IV Titration 48.582 Amount Heparin Sod,Pork in 0.45% 48.582 NaCl 25,000 unit In 0.45 % NaCl 1 250ml.bag @ 12 UNITS/KG/HR 8.165 mls/hr IV .Q24H [facility] Rx#: [id number] Oral 360 480 Other: Voiding Method Toilet Toilet # Voids 1 3 0 Weight 70 kg GENERAL: This is a 58-year-old -Scottish male in no apparent distress at the time of my examination. HEENT: Head is atraumatic, normocephalic. Pupils are equal, round. Sclerae anicteric. Conjunctivae are clear. Mucous membranes of the mouth are moist. Neck is supple. There is no jugular venous distention. No carotid bruit is heard. LUNGS: Course rhonchi noted on the left upper lobe that did improve after asking to cough deep, clear on the right. No wheezes or rales. Positive chest wall tenderness is noted on palpation and with deep breathing. HEART: Regular rate and rhythm with systolic ejection murmur at the left sternal border, no rubs or gallops. S1 and S2 heard. ABDOMEN: Soft, nontender. Bowel sounds are heard. No organomegaly noted. EXTREMITIES: No evidence of peripheral edema and no calf tenderness noted. VASCULAR: Radial and dorsalis pedis pulses palpated, no evidence of clubbing. NEUROLOGIC: Patient is awake, alert and oriented x3. Results 11/15/18 06:10 11/14/18 13:14 Cardiac Enzymes 11/14/18 11/14/18 11/14/18 Range/Units 13:14 13:14 18:51 AST 64 H (17-59) U/L Troponin I <0.012 <0.012 (0.000-0.034) ng/mL 11/15/18 Range/Units 01:31 AST (17-59) U/L Troponin I <0.012 (0.000-0.034) ng/mL Coagulation 11/14/18 11/14/18 11/15/18 Range/Units 13:14 22:07 05:41 PT 9.6 (9.0-12.0) sec APTT 23.6 29.8 47.8 H (22.0-30.0) sec CBC 11/14/18 11/15/18 Range/Units 13:14 06:10 WBC 3.7 L 3.7 L (3.8-10.6) k/uL RBC 3.96 L 3.47 L (4.30-5.90) m/uL Hgb 12.8 L 11.2 L (13.0-17.5) gm/dL Hct 39.8 35.5 L (39.0-53.0) % Plt Count 214 160 (150-450) k/uL Comprehensive Metabolic Panel 11/14/18 Range/Units 13:14 Sodium 142 (137-145) mmol/L Potassium 4.3 (3.5-5.1) mmol/L Chloride 105 (98-107) mmol/L Carbon Dioxide 27 (22-30) mmol/L BUN 8 L (9-20) mg/dL Creatinine 0.76 (0.66-1.25) mg/dL Glucose 76 (74-99) mg/dL Calcium 9.7 (8.4-10.2) mg/dL AST 64 H (17-59) U/L ALT 32 (21-72) U/L Alkaline Phosphatase 45 (38-126) U/L Total Protein 7.7 (6.3-8.2) g/dL Albumin 4.5 (3.5-5.0) g/dL Current Medications Generic Name Dose Route Start Last Admin Trade Name Freq PRN Reason Stop Dose Admin Hydrocodone Bitart/Acetaminophen 1 each 11/14/18 16:19 [place] 10 PO TID PRN Pain Aspirin 81 mg 11/15/18 09:00 11/15/18 07:54 Aspirin PO 81 mg DAILY [facility] Administration Gabapentin 300 mg 11/14/18 21:00 11/14/18 20:58 Neurontin PO 300 mg HS [facility] Administration Heparin Sodium (Porcine) 0 unit 11/14/18 16:15 Heparin IV PER PROTOCOL PRN Low PTT Protocol Hydromorphone HCl 1 mg 11/14/18 18:00 11/15/18 07:22 Dilaudid IVP 1 mg Q3HR PRN Administration Pain Heparin Sodium/Sodium Chloride 250 mls @ 8.165 mls/hr 11/14/18 16:15 11/14/18 22:52 25,000 unit/ Sodium Chloride IV 16.41 units/kg/hr .Q24H [facility] 11.165 mls/hr Titration Protocol 12 UNITS/KG/HR Naloxone HCl 0.2 mg 11/14/18 16:17 Narcan IV Q2M PRN Opioid Reversal Intake and Output 11/14/18 11/15/18 11/15/18 22:59 06:59 14:59 Intake Total 408.582 480 Balance 408.582 480 Intake: Intake, IV Titration 48.582 Amount Heparin Sod,Pork in 0.45% 48.582 NaCl 25,000 unit In 0.45 % NaCl 1 250ml.bag @ 12 UNITS/KG/HR 8.165 mls/hr IV .Q24H [facility] Rx#: [id number] Oral 360 480 Other: Voiding Method Toilet Toilet # Voids 1 3 0 Weight 70 kg 11/15/18 06:10 11/14/18 13:14 EKG Interpretations (text) EKG shows a normal sinus rhythm with no acute changes. Assessment and Plan Plan: Assessment and plan #1 chest discomfort, atypical for acute coronary syndrome. Troponins are negative 3. Dobutamine echocardiographic study performed last week was negative for any reversible ischemia. CTA of the chest performed at that time was negative for pulmonary embolism. Echocardiogram with Doppler study revealed a normal left ventricular systolic function. #2 syncope, rule out cardiac causes. We will check orthostatic heart rate and blood pressure every shift, continue to monitor for any arrhythmias, patient did have one episode of nonsustained VT #3 known history of coronary artery disease with prior LAD stenting #4 hypertension #5 hyperlipidemia #6 bipolar and schizophrenia #7 nicotine dependence #8 elevated EtOH level of 54 on admission Plan We will repeat an EKG this morning, obtain sed rate. Check orthostatic heart rate and blood pressure every shift. Continue to monitor for any significant tachycardia or bradycardia arrhythmias. Further recommendations to follow. DNP note has been reviewed, I agree with a documented findings and plan of care. Patient was seen and examined.
[2018-11-15] MEDS ORDERED: ALPRAZolam 0.25 MG TAB PO PRN (11:47)
[2018-11-15] MEDS ORDERED: ALPRAZolam 0.5 MG TAB PO PRN (11:47)
[2018-11-15] MEDS ORDERED: SODIUM CHLORIDE 0.9% 1,000 ML in EMPTY BAG 1 BAG IV ONE (11:47)
[2018-11-15] MEDS ORDERED: ATORVASTATIN 80 MG TAB PO STA (11:47)
[2018-11-15] MEDS ORDERED: ASPIRIN 325 MG TAB PO STA (11:47)
[2018-11-15] MEDS ORDERED: NITROGLYCERIN SL TABS 0.4 MG TAB SUBLINGUAL PRN (11:47)
[2018-11-15] MEDS: HEPARIN SOD,PORK IN 0.45% NACL 25,000 UNIT in 0.45% NACL 1 250ML.BAG IV SCH (14:50)
--- NOTE | 2018-11-15 18:41 | P.HPIM ---
History of Present Illness H&P Date: 11/15/18 Chief Complaint: Chest pain, shortness of breath This 58-year-old -Thai male with past significant medical history for coronary artery disease prior stenting of the LAD at [facility]. Patient also being treated for hypertension hyperlipidemia depression and schizophrenia bipolar disorder and chronic nicotine dependence. Patient was recently in the hospital week ago with symptoms of chest pain. He underwent echo and with Doppler which revealed ejection fraction of 55-60% also underwent dobutamine echocardiographic study which was negative for stress-induced ischemia. Patient presented to the hospital with symptoms of midsternal chest pain which he describes as severe and which has been going on off and on for the last 3 days. Patient states that he became quite diaphoretic and dizzy and passed out in the parking lot some bystanders called EMS and he was brought here to the hospital for further evaluation and treatment. Review of Systems Constitutional: Reports as per HPI Ears, nose, mouth and throat: Reports as per HPI Cardiovascular: Reports chest pain, Reports high blood pressure, Reports lightheadedness, Reports syncope Respiratory: Reports as per HPI Gastrointestinal: Reports as per HPI Genitourinary: Reports as per HPI Musculoskeletal: Reports as per HPI Integumentary: Reports as per HPI Neurological: Reports as per HPI Past Medical History Past Medical History: Coronary Artery Disease (CAD), Chest Pain / Angina, Hyperlipidemia, Myocardial Infarction ([place]), Osteoarthritis (OA) Additional Past Medical History / Comment(s): Pt denies COPD, arthritis in back and bilateral knees, benign colon polyps Last Myocardial Infarction Date:: 2004 History of Any Multi-Drug Resistant Organisms: None Reported Past Surgical History: Bowel Resection, Heart Catheterization With Stent Additional Past Surgical History / Comment(s): Cardiac stents x 3, bowel surgery for pinpoint hole in bowel, L knee arthroscopy, colonoscopy/benign p olypectomies. Past Anesthesia/Blood Transfusion Reactions: No Reported Reaction Date of Last Stent Placement:: 2013 Past Psychological History: Bipolar, Depression, Schizophrenia Smoking Status: Current some day smoker Past Alcohol Use History: Daily, Occasional Past Drug Use History: None Reported - Past Family History Father Family Medical History: Respiratory Disorder Additional Family Medical History / Comment(s): Father at age 64 from Black lung disease Mother Family Medical History: Myocardial Infarction ([place]) Additional Family Medical History / Comment(s): Mother of an [place] at 78yrs old. Brother(s) Family Medical History: Myocardial Infarction ([place]) Additional Family Medical History / Comment(s): Patient has 10 brothers and 2 from myocardial infarction and had history of alcoholism. Sister(s) Additional Family Medical History / Comment(s): He has 7 sisters that are alive with no major medical problems. He has one son that has and one daughter that is alive and okay. Medications and Allergies Home Medications Medication Instructions Recorded Confirmed Type Baclofen [Lioresal] 10 mg PO TID 12/26/16 11/14/18 History Gabapentin [Neurontin] 300 mg PO HS 12/26/16 11/14/18 History HYDROcodone/APAP 10-325MG [[place] 1 tab PO TID PRN 01/31/17 11/14/18 History 10-325] Aspirin 81 mg PO DAILY chew 11/11/18 11/14/18 Rx Allergies Allergy/AdvReac Type Severity Reaction Status Date / Time blueberry Allergy Rash/Hives Verified 11/14/18 13:25 nitroglycerin Allergy Swelling Verified 11/14/18 13:25 Physical Exam Osteopathic Statement: *. No significant issues noted on an osteopathic structural exam other than those noted in the History and Physical/Consult. Vitals: Vital Signs Temp Pulse Resp BP Pulse Ox 11/15/18 16:00 99.8 F H 65 18 142/73 94 L 11/15/18 12:00 98.8 F 11/15/18 11:43 63 18 147/72 95 11/15/18 07:58 100.0 F H 74 20 122/73 97 11/15/18 04:00 98.4 F 77 18 109/75 96 11/15/18 00:00 97.9 F 89 18 122/79 96 11/14/18 20:00 97.7 F 112 H 19 129/87 96 Intake and Output 11/15/18 11/15/18 11/15/18 06:59 14:59 22:59 Intake Total 480 418.268 240 Balance 480 418.268 240 Intake: Intake, IV Titration 178.268 Amount Heparin Sod,Pork in 0.45% 178.268 NaCl 25,000 unit In 0.45 % NaCl 1 250ml.bag @ 12 UNITS/KG/HR 8.165 mls/hr IV .Q24H [facility] Rx#: [id number] Oral 480 240 240 Other: Voiding Method Toilet # Voids 3 0 1 Weight 70 kg General: [Patient awake, alert and oriented times 3. Patient in no acute distress.] HEENT: [PERRL. EOMI. No pharyngeal erythema or exudate.] Neck: [No adenopathy.] Cardiac: [Heart regular in rate and rhythm. No S3. No S4. No clicks, rubs. No murmur.] Lungs: [Clear to auscultation bilaterally.] Abdomen: [No mass. No organomegaly. Bowel sounds presnt and normoactive in all 4 quadrants.] Extremes: [No edema no cyanosis no claudication normal pulses] : Normal male genitalia Musculoskeletal: [No joint erythema, edema or tenderness.] Skin: [No rash.] Neurologic: [No lateralizing deficits. CN II - XII grossly intact.] Lymphatic: [No adenopathy.] Results CBC & Chem 7: 11/15/18 06:10 11/14/18 13:14 Labs: Abnormal Lab Results - Last 24 Hours (Table) 11/15/18 11/15/18 11/15/18 Range/Units 05:41 06:10 06:10 WBC 3.7 L (3.8-10.6) k/uL RBC 3.47 L (4.30-5.90) m/uL Hgb 11.2 L (13.0-17.5) gm/dL Hct 35.5 L (39.0-53.0) % MCV 102.4 H (80.0-100.0) fL APTT 47.8 H (22.0-30.0) sec D-Dimer 0.89 H (<0.60) mg/L FEU Thrombosis Risk Factor Assmnt - DVT/VTE Prophylaxis DVT/VTE Prophylaxis: Pharmacologic Prophylaxis ordered - Choose All That Apply Each Factor Represents 1 point: Age 41-60 years Thrombosis Risk Factor Assessment Total Risk Factor Score: 1 Thrombosis Risk Factor Assessment Level: Low Risk Assessment and Plan (1) Chest pain Current Visit: Yes Status: Acute Code(s): R07.9 - CHEST PAIN, UNSPECIFIED SNOMED Code(s): 15304435 (2) Alcohol dependence Current Visit: No Status: Acute Code(s): F10.20 - ALCOHOL DEPENDENCE, UNCOMPLICATED SNOMED Code(s): 01236355 (3) Atypical chest pain Current Visit: No Status: Acute Code(s): R07.89 - OTHER CHEST PAIN SNOMED Code(s): 619037560 (4) CAD (coronary artery disease) Current Visit: No Status: Acute Code(s): I25.10 - ATHSCL HEART DISEASE OF [place] CORONARY ARTERY W/O ANG PCTRS SNOMED Code(s): 36002796 (5) Chest pain Current Visit: No Status: Acute Code(s): R07.9 - CHEST PAIN, UNSPECIFIED SNOMED Code(s): 60365283 Plan: Chest pain, cardiology consult performed 3 troponins negative A d-dimer slightly elevated Will order spiral CT of the chest PE protocol, preferably done tonight Sed rate was within normal limits Possible repeat catheterization We'll follow very closely Time with Patient: Greater than 30
--- NOTE | 2018-11-15 19:16 | CT ---
EXAMINATION TYPE: CT chest angio for PE DATE OF EXAM: 11/15/2018 COMPARISON: November 10, 2018 HISTORY: SOB, R/O PE CT DLP: 299.1 mGycm Automated exposure control for dose reduction was used. CONTRAST: CT Chest for pulmonary embolism performed with with IV Contrast, patient injected with 100 mL of Isov ue 370. There are 3-D post processed images. FINDINGS: There are emphysematous bulla in the upper lobes. There is no evidence of a pulmonary mass. There is some patchy atelectasis at the posterior lung bases. There is no pleural effusion. Heart size is norm al. There is no pericardial effusion. Thoracic aorta shows no sign of aneurysm or dissection. There is normal contrast opacification of the pulmonary arteries. I see no filling defects. There is spurring in the thoracic spine. IMPRESSION: Mild pulmonary emphysema. There is new atelectasis at the lung bases compared to last exam. No eviden ce of pulmonary embolism.
[2018-11-15] MEDS: GABAPENTIN 300 MG CAP PO SCH (20:33)
[2018-11-16] MEDS: ASPIRIN 81 MG PO SCH (05:32)
[2018-11-16] MEDS: HYDROmorphone 1 MG/ML 1 ML SYRINGE IVP PRN ×2 (05:32→09:09)
[2018-11-16] MEDS ORDERED: SODIUM CHLORIDE 0.9% 1,000 ML in EMPTY BAG 1 BAG IV ONE (06:00)
[2018-11-16 08:08] LABS: HCT 36.5 % (39.0-53.0); HGB 11.8 gm/dL (13.0-17.5); MCH 32.5 pg (25.0-35.0); MCHC 32.2 g/dL (31.0-37.0); MCV 100.8 fL (80.0-100.0); Macrocytosis Slight; Mean Platelet Volume 7.4; Platelet Count 145 k/uL (150-450); RBC 3.62 m/uL (4.30-5.90); RDW 14.1 % (11.5-15.5); WBC 3.3 k/uL (3.8-10.6)
[2018-11-16] MEDS ORDERED: ATORVASTATIN 80 MG TAB PO ONE (09:00)
[2018-11-16] MEDS ORDERED: ASPIRIN 325 MG TAB PO ONE (09:00)
[2018-11-16] MEDS: HEPARIN SOD,PORK IN 0.45% NACL 25,000 UNIT in 0.45% NACL 1 250ML.BAG IV SCH (10:15)
[2018-11-16] MEDS ORDERED: IV FLUID CONTINUATION 900 ML IV ONE (10:40)
[2018-11-16] MEDS ORDERED: MIDAZOLAM PF (FBP) 2 MG/2 ML VIAL IVP ONE (10:40)
[2018-11-16] MEDS ORDERED: fentaNYL (PF) 50 MCG/ML 2 ML AMP IV ONE (10:40)
[2018-11-16] MEDS ORDERED: LIDOCAINE 1% INJ 10MG/ML (20 ML MDV) SQ ONE (10:42)
[2018-11-16 10:52] LABS: Lymphocytes # (M) 1.49 k/uL (1.0-4.8); Monocytes # (M) 0.43 k/uL (0-1.0); Neutrophils % (M) 42 %; Nucleated Red Blood Cells 0 /100 WBC (0-0); Total Cells Counted 100
[2018-11-16] MEDS ORDERED: IOPAMIDOL-370 125ML BTL INJ ONE (10:57)
[2018-11-16] MEDS ORDERED: RX INFO: IV CONTRAST WAS GIVEN 1 EACH MISC MISCELLANE PRN (11:08)
--- NOTE | 2018-11-16 11:26 | CC ---
CARDIAC CATHETERIZATION REPORT Mr. Scott is a 58-year-old gentleman who has been admitted repeatedly in the hospital with recurrent chest pain. A recent stress test was normal. Because of the known coronary artery disease and recurrent admissions in the hospital, patient was advised diagnostic cardiac catheterization to rule out any significant progression in the coronary artery disease. PROCEDURE: The right groin was prepped and draped in the usual manner and the right femoral artery was entered on ultrasound guidance with a micropuncture needle and a #6-Nepali sheath was placed in. Selective coronary angiography was then performed in multiple projections. Left ventricular pressures were obtained. Patient tolerated the procedure well. Sheath was removed and good hemostasis was achieved with the use of Angio-Seal. Moderate sedation was used. Total sedation time was 18 minutes. HEMODYNAMICS: Left ventricular end-diastolic pressure is 10 mmHg prior to angiography. No gradient is noted across the aortic valve. SELECTIVE CORONARY ANGIOGRAPHY: Left main coronary artery is A large size and is patent. LAD is a good caliber blood vessel. There is evidence of a stent in mid to the distal LAD. The stent site is patent. There is minimal irregularity noted. There is a good- sized diagonal branch, which is normal. Circumflex coronary artery is nondominant in distribution, gives rise to a good size obtuse marginal branch. Circumflex coronary artery and its branches are normal. Right coronary artery is dominant in distribution and gives rise to good-sized PDA and PLV branches. Right coronary artery and its branches are normal. FINAL IMPRESSION: This study reveals a patent stent in mid and distal left anterior descending artery. There is minimal irregularity noted. The circumflex and right coronary arteries are normal. RECOMMENDATIONS: Medical treatment. MMODL / IJN: [id number] /
[2018-11-16] MEDS: SODIUM CHLORIDE 0.9% 1,000 ML IV SCH ×2 (12:08→15:11)
--- NOTE | 2018-11-16 12:51 | PN ---
PROGRESS NOTE This gentleman has some mental health issues, hypertension, hyperlipidemia, and had a recent dobutamine echo which was negative. However, he continues to have persistent chest pain and Dr. Jennifer Saunders is going to perform a cardiac cath on this gentleman. Vitals are stable. S1, S2 heard normally, short systolic murmur noted. Lungs reveal decent air entry. Abdomen and lower extremity exam otherwise is unchanged. Plan is to proceed with cardiac cath today. The patient understands the rationale, risks, benefits, and options and wishes to proceed. MMODL / IJN: [id number] /
--- NOTE | 2018-11-16 15:18 | P.DS ---
Providers Date of admission: 11/14/18 16:17 Expected date of discharge: 11/16/18 Attending physician: Bal Goldberg Consults: 11/14/18 16:18 Consult Physician Urgent Consulting Provider: [facility] Consult Reason/Comments: acute chest pain, syncope Do you want consulting provider notified?: Yes Primary care physician: [facility] Course: Final Diagnoses: (1) Chest pain Current Visit: Yes Status: Acute Code(s): R07.9 - CHEST PAIN, UNSPECIFIED SNOMED Code(s): 17427919 (2) Alcohol dependence Current Visit: No Status: Acute Code(s): F10.20 - ALCOHOL DEPENDENCE, UNCOMPLICATED SNOMED Code(s): 29774697 (3) Atypical chest pain Current Visit: No Status: Acute Code(s): R07.89 - OTHER CHEST PAIN SNOMED Code(s): 233355153 (4) CAD (coronary artery disease) Current Visit: No Status: Acute Code(s): I25.10 - ATHSCL HEART DISEASE OF [place] CORONARY ARTERY W/O ANG PCTRS SNOMED Code(s): 37531516 (5) Chest pain Current Visit: No Status: Acute Code(s): R07.9 - CHEST PAIN, UNSPECIFIED SNOMED Code(s): 07138658 Hospital course:This 58-year-old -[place] male with past significant medical history for coronary artery disease prior stenting of the LAD at [facility]. Patient also being treated for hypertension hyperlipidemia depression and schizophrenia bipolar disorder and chronic nicotine dependence. Patient was recently in the hospital week ago with symptoms of chest pain. He underwent echo and with Doppler which revealed ejection fraction of 55-60% also underwent dobutamine echocardiographic study which was negative for stress-induced ischemia. Patient presented to the hospital with symptoms of midsternal chest pain which he describes as severe and which has been going on off and on for the last 3 days. Patient states that he became quite diaphoretic and dizzy and passed out in the parking lot some bystanders called EMS and he was brought here to the hospital for further evaluation and treatment. Chest CTA reporting mild pulmonary emphysema, bibasilar atelectasis, no evidence of pulmonary embolism, aneurysm or dissection .Evaluated by cardiology, status post cardiac catheterization. Verbal report of clear cath. Tolerated procedure well. Telemetry sinus rhythm .Discharge home today in a stable condition with guarded prognosis, pending final DC recommendations/clearance from cardiology. EXAM: General: [Patient awake, alert and oriented times 3. Patient in no acute distress.] Cardiac: [Heart regular in rate and rhythm. No S3. No S4. No clicks, rubs. No murmur.] Lungs: [Clear to auscultation bilaterally.] Abdomen: [No mass. No organomegaly. Bowel sounds presnt and normoactive in all 4 quadrants.] Neurologic: [No focal deficits.CN II - XII grossly intact.] The impression and plan of care has been dictated as directed. : I performed a history and examination of this patient, discussed the same with the dictator. I agree with the dictator's note ,documented as a scribe. Any additional findings or plans will be noted. Patient Condition at Discharge: Stable Plan - Discharge Summary Discharge Rx Participant: No New Discharge Prescriptions: Continue Gabapentin [Neurontin] 300 mg PO HS Baclofen [Lioresal] 10 mg PO TID HYDROcodone/APAP 10-325MG [[place] 10-325] 1 tab PO TID PRN PRN Reason: Pain Aspirin 81 mg PO DAILY chew Discharge Medication List Baclofen [Lioresal] 10 mg PO TID 12/26/16 [History] Gabapentin [Neurontin] 300 mg PO HS 12/26/16 [History] HYDROcodone/APAP 10-325MG [[place] 10-325] 1 tab PO TID PRN 01/31/17 [History] Aspirin 81 mg PO DAILY chew 11/11/18 [Rx] Follow up Appointment(s)/Referral(s): Dary Pan MD [STAFF PHYSICIAN] - 12/01/18 10:15 am (Office will call you if your appointment needs to be moved sooner. ) Bal Goldberg Jr, [Primary Care Provider] - 1 Week Ambulatory/Diagnostic Orders: Complete Blood Count w/diff [LAB.AMB] Time Frame: 3 Days, Location: None Selected Patient Instructions/Handouts: Chest Pain (DC), Syncope (DC)
[2018-11-16] MEDS: GABAPENTIN 300 MG CAP PO SCH (20:43)
[2018-11-16] MEDS: HYDROcodone/APAP 10-325MG 1 EACH TAB PO PRN (20:43)
[2018-11-17] MEDS: HYDROcodone/APAP 10-325MG 1 EACH TAB PO PRN (04:10)
[2018-11-17] MEDS: SODIUM CHLORIDE 0.9% 1,000 ML IV SCH ×2 (04:16→05:44)
[2018-11-17 07:18] LABS: HCT 34.1 % (39.0-53.0); HGB 11.1 gm/dL (13.0-17.5); MCH 32.5 pg (25.0-35.0); MCHC 32.4 g/dL (31.0-37.0); MCV 100.2 fL (80.0-100.0); Mean Platelet Volume 7.7; Platelet Count 131 k/uL (150-450); RBC 3.41 m/uL (4.30-5.90); RDW 14.1 % (11.5-15.5); WBC 2.6 k/uL (3.8-10.6)
[2018-11-17] MEDS: ASPIRIN 81 MG PO SCH (08:31)
[2018-11-17 08:38] VITALS: BP 109/71; PULSE 64; RESP 18; TEMP 98.2
[2018-11-17 10:40] LABS: Lymphocytes # (M) 1.38 k/uL (1.0-4.8); Monocytes # (M) 0.23 k/uL (0-1.0); Neutrophils % (M) 34 %; Nucleated Red Blood Cells 0 /100 WBC (0-0); Total Cells Counted 100
[2018-11-17 10:41] LABS: Anisocytosis (M) Present; Poikilocytosis (M) Present
--- NOTE | 2018-11-17 12:24 | P.PN ---
Subjective Progress Note Date: 11/17/18 This is a 58-year-old -[place] gentleman with past medical history significant for coronary artery disease and prior stenting of the LAD, hypertension, hyperlipidemia, bipolar, depression, schizophrenia, chronic nicotine dependence, who was recently in the hospital a week ago with symptoms of chest discomfort. He underwent an echocardiogram with Doppler study which revealed an ejection fraction of 55-60% he also underwent a dobutamine echocardiographic study which was negative for any stress-induced ischemia. A CTA of the chest was also performed during that admission which was negative for pulmonary embolism. Patient presents to the hospital on this occasion with symptoms of severe midsternal chest pressure which she states has been going on study for the past 3 days. He states that he was in a parking lot, became quite diaphoretic and dizzy and passed out, some bystanders called EMS and he was brought here to the hospital for further evaluation and treatment. At the time of my examination this morning he continues to have moderate to severe pressure in the center of his chest he states that it feels as though an elephant is sitting in the center of his chest. Blood pressure on arrival here 108/86 heart rate of 90, 97 room air. White blood cell count 3.7, hemoglobin 11.2, platelet count 160. Sodium 142, potassium 4.3, BUN 8 and creatinine 0.7. Troponins are negative 3. Chest x-ray did not reveal any acute cardiopulmonary disease. The patient has remained afebrile since his admission. On review of the patient's telemetry strips, he hasn't been remaining in a normal sinus rhythm, there is one rhythm strip suggestive of possible nonsustained VT, however may also be artifact. 11/17/2018 Patient underwent cardiac catheterization yesterday that did not reveal any significantly obstructive coronary artery disease. This morning he was chest pain-free, hemodynamically stable. Objective - Vital Signs Vital signs: Vital Signs Temp 98.2 F 11/17/18 08:00 Pulse 64 11/17/18 08:00 Resp 18 11/17/18 08:00 BP 109/71 11/17/18 08:00 Pulse Ox 97 11/17/18 08:00 Intake & Output 11/16/18 11/17/18 11/17/18 18:59 06:59 18:59 Intake Total 200 230 240 Output Total 500 500 Balance -300 -270 240 Intake: IV 200 Oral 230 240 Output: Urine 500 500 Other: Voiding Method Toilet Toilet # Voids 4 0 - Exam GENERAL: This is a 58-year-old -[place] male in no apparent distress at the time of my examination. HEENT: Head is atraumatic, normocephalic. Pupils are equal, round. Sclerae anicteric. Conjunctivae are clear. Mucous membranes of the mouth are moist. Neck is supple. There is no jugular venous distention. No carotid bruit is heard. LUNGS: Course rhonchi noted on the left upper lobe that did improve after asking to cough deep, clear on the right. No wheezes or rales. Positive chest wall tenderness is noted on palpation and with deep breathing. HEART: Regular rate and rhythm with systolic ejection murmur at the left sternal border, no rubs or gallops. S1 and S2 heard. ABDOMEN: Soft, nontender. Bowel sounds are heard. No organomegaly noted. EXTREMITIES: No evidence of peripheral edema and no calf tenderness noted. Right groin is soft, no evidence of anyhematoma VASCULAR: Radial and dorsalis pedis pulses palpated, no evidence of clubbing. NEUROLOGIC: Patient is awake, alert and oriented x3. - Labs CBC & Chem 7: 11/17/18 06:38 11/14/18 13:14 Labs: Abnormal Lab Results - Last 24 Hours (Table) 11/17/18 Range/Units 06:38 WBC 2.6 L (3.8-10.6) k/uL RBC 3.41 L (4.30-5.90) m/uL Hgb 11.1 L (13.0-17.5) gm/dL Hct 34.1 L (39.0-53.0) % MCV 100.2 H (80.0-100.0) fL Plt Count 131 L (150-450) k/uL Neutrophils # (Manual) 0.88 L (1.3-7.7) k/uL Assessment and Plan Plan: Assessment and plan #1 chest discomfort, atypical for acute coronary syndrome. Troponins are negative 3. Dobutamine echocardiographic study performed last week was negative for any reversible ischemia. CTA of the chest performed at that time was negative for pulmonary embolism. Echocardiogram with Doppler study revealed a normal left ventricular systolic function. #2 syncope, rule out cardiac causes. We will check orthostatic heart rate and blood pressure every shift, continue to monitor for any arrhythmias, patient did have one episode of nonsustained VT #3 known history of coronary artery disease with prior LAD stenting #4 hypertension #5 hyperlipidemia #6 bipolar and schizophrenia #7 nicotine dependence #8 elevated EtOH level of 54 on admission Plan Patient underwent a cardiac catheterization yesterday which did not reveal any o bstructive coronary artery disease. He may be able to be discharged home today from our perspective, follow-up appointment with Dr. VC Saunders in the office post discharge. DNP note has been reviewed, I agree with a documented findings and plan of care. Patient was seen and examined.
== END 2018-11-17 13:25 | disposition home or self-care (01) | DRG 287 ==
LOC: EC 13:01 → 3SCARD 16:17 → OBSVTOIN 11-16 10:29
PROVIDERS: ADMIT Family Medicine; ATTEND Family Medicine
PROC: 4A023N7 Measurement of Cardiac Sampling and Pressure, Left Heart, Percutaneous Approach (ICD-10-PCS; principal; 2018-11-16 10:30)
PROC: B2111ZZ Fluoroscopy of Multiple Coronary Arteries using Low Osmolar Contrast (ICD-10-PCS; 2018-11-16 10:30)
DX: R07.89 Other chest pain (principal); J98.11 Atelectasis; I47.2 Ventricular tachycardia; J43.9 Emphysema, unspecified; F20.9 Schizophrenia, unspecified; I25.10 Atherosclerotic heart disease of native coronary artery without angina pectoris; E78.5 Hyperlipidemia, unspecified; F10.20 Alcohol dependence, uncomplicated; F17.200 Nicotine dependence, unspecified, uncomplicated; F31.9 Bipolar disorder, unspecified; I10 Essential (primary) hypertension; I25.2 Old myocardial infarction; R01.1 Cardiac murmur, unspecified; R55 Syncope and collapse; M17.0 Bilateral primary osteoarthritis of knee; M47.9 Spondylosis, unspecified; Z79.82 Long term (current) use of aspirin; Z79.899 Other long term (current) drug therapy; Z88.8 Allergy status to other drugs, medicaments and biological substances; Z91.018 Allergy to other foods; Z95.5 Presence of coronary angioplasty implant and graft; Z90.49 Acquired absence of other specified parts of digestive tract; Z86.010 Personal history of colon polyps; Z82.49 Family history of ischemic heart disease and other diseases of the circulatory system; Z81.1 Family history of alcohol abuse and dependence; Z83.6 Family history of other diseases of the respiratory system; Y90.2 Blood alcohol level of 40-59 mg/100 ml
CPT/HCPCS: 36415; 71046; 71275; 76937; 80053; 80320; 82550; 83735; 83880; 84484; 85025; 85379; 85610; 85652; 85730; 93005; 93458; 96374; 99285

== ENCOUNTER 2018-12-02 20:16 | Emergency (ER) | payer MEDICARE, OTHER ==
[2018-12-02 20:29] VITALS: BP 101/73; PULSE 89; RESP 18; TEMP 98.2
[2018-12-02 20:59] LABS: ALT 14 U/L (21-72); AST 20 U/L (17-59); African American GFR (CKD) >90 (>60 ml/min/1.73 sqM); Albumin 4.3 g/dL (3.5-5.0); Alkaline Phosphatase 35 U/L (38-126); Anion Gap 9 mmol/L; Blood Urea Nitrogen 10 mg/dL (9-20); Calcium 9.6 mg/dL (8.4-10.2); Carbon Dioxide 27 mmol/L (22-30); Chloride 109 mmol/L (98-107); Glucose 108 mg/dL (74-99); Magnesium 1.9 mg/dL (1.6-2.3); Sodium 145 mmol/L (137-145); Total Bilirubin 0.3 mg/dL (0.2-1.3); Total Protein 7.3 g/dL (6.3-8.2)
--- NOTE | 2018-12-02 21:03 | ED ---
General Adult HPI - General Chief complaint: Chest Pain Stated complaint: Chest Pain Time Seen by Provider: 12/02/18 20:32 Source: patient Mode of arrival: ambulatory Limitations: no limitations - History of Present Illness Initial comments: Dictation was produced using flare[employer] dictation software. please excuse any grammatical, word or spelling errors. Chief Complaint: 58-year-old male with chronic chest pain presents with chest pain. History of Present Illness: 58-year-old male he has past medical history coronary artery disease, or infarction, dyslipidemia. Presents today with acute on chronic chest pain. Patient states that he is here in emergency department because he wants answers as to why he is feeling pain. Patient recently had a cardiac cath. Chart review shows that 2 weeks ago. Clean cath performed pain has been similar before and after the catheterization. Patient states his pain is to the left anterior chest. No radiation. No associated diaphoresis. No associated nausea. He reports that he's been trying to ease the pain with alcohol. The ROS documented in this emergency department record has been reviewed and confirmed by me. Those systems with pertinent positive or negative responses have been documented in the HPI. All other systems are other negative and/or noncontributory. PHYSICAL EXAM: General Impression: Alert and oriented x3, not in acute distress HEENT: Normocephalic atraumatic, extra-ocular movements intact, pupils equal and reactive to light bilaterally, mucous membranes moist. Cardiovascular: Heart regular rate and rhythm, S1&S2 audible, no murmurs, rubs or gallops Chest: Lungs clear to auscultation bilaterally, no rhonchi, no wheeze, no rales Abdomen: Bowel sounds present, abdomen soft, non-tender, non-distended, no organomegaly Musculoskeletal: Pulses present and equal in all extremities, no peripheral edema Motor: no focal deficits noted Neurological: CN II-XII grossly intact, no focal motor or sensory deficits noted Skin: Intact with no visualized rashes Psych: Normal affect and mood ED course: 58 Old male presents with acute on chronic chest pain. Signs upon arrival are within acceptable limits. EKG is unremarkable. Chart was reviewed showing any Performed on November 16 showing normal coronary arteries and patent stent to the left anterior descending artery. Patient had a confrontation with the nurse. States that he wants to be discharge. Patient understands that he did have workup so is unclear whether he is suffering from serious medical event at this time. Patient understands the risk of leaving. He wants to leave and go to a different hospital. Patient side AGAINST MEDICAL ADVICE papers. At time of discussion patient is understanding. Nurse as the risks. Coherent during the time of conversation Risks, Benefits, and Treatment alternatives were discussed in detail with the patient. The patient is alert and oriented X 3 and has the capacity to make an informed decision. The risks of increased morbidity including the possibly of were explained to and understood by the patient who is choosing to leave against medical advice. The patient is encouraged to return any time should they want further treatment and diagnostic investigation. EKG interpretation: Ventricular rate he 7, normal sinus rhythm, TN interval 146, QS 90, QTC 490. No TN prolongation, no QTC prolongation, no ST or T-wave changes noted. Overall, this EKG is unremarkable - Related Data Home Medications Medication Instructions Recorded Confirmed Baclofen [Lioresal] 10 mg PO TID 12/26/16 12/02/18 Gabapentin [Neurontin] 300 mg PO HS 12/26/16 12/02/18 HYDROcodone/APAP 10-325MG [[place] 1 tab PO TID PRN 01/31/17 12/02/18 10-325] Previous Rx's Medication Instructions Recorded Aspirin 81 mg PO DAILY chew 11/11/18 Allergies Allergy/AdvReac Type Severity Reaction Status Date / Time blueberry Allergy Rash/Hives Verified 12/02/18 21:02 nitroglycerin Allergy Swelling Verified 12/02/18 21:02 Review of Systems ROS Statement: Those systems with pertinent positive or pertinent negative responses have been documented in the HPI. ROS Other: All systems not noted in ROS Statement are negative. Past Medical History Past Medical History: Coronary Artery Disease (CAD), Chest Pain / Angina, Hyperlipidemia, Myocardial Infarction ([place]), Osteoarthritis (OA) Additional Past Medical History / Comment(s): Pt denies COPD, arthritis in back and bilateral knees, benign colon polyps Last Myocardial Infarction Date:: 2004 History of Any Multi-Drug Resistant Organisms: None Reported Past Surgical History: Bowel Resection, Heart Catheterization With Stent Additional Past Surgical History / Comment(s): Cardiac stents x 3, bowel surgery for pinpoint hole in bowel, L knee arthroscopy, colonoscopy/benign polypectomies. Past Anesthesia/Blood Transfusion Reactions: No Reported Reaction Date of Last Stent Placement:: 2014 Past Psychological History: Bipolar, Depression, Schizophrenia Smoking Status: Current some day smoker Past Alcohol Use History: Daily, Occasional Past Drug Use History: None Reported - Past Family History Father Family Medical History: Respiratory Disorder Additional Family Medical History / Comment(s): Father at age 64 from Black lung disease Mother Family Medical History: Myocardial Infarction ([place]) Additional Family Medical History / Comment(s): Mother of an [place] at 78yrs old. Brother(s) Family Medical History: Myocardial Infarction ([place]) Additional Family Medical History / Comment(s): Patient has 10 brothers and 2 from myocardial infarction and had history of alcoholism. Sister(s) Additional Family Medical History / Comment(s): He has 7 sisters that are alive with no major medical problems. He has one son that has and one daughter that is alive and okay. General Exam Limitations: no limitations Course Vital Signs 12/02/18 20:25 Temperature 98.2 F Pulse Rate 89 Respiratory 18 Rate Blood Pressure 101/73 O2 Sat by Pulse 98 Oximetry Disposition Clinical Impression: Chest pain Disposition: Left Against Medical Advice Condition: Good Referrals: None,Stated [Primary Care Provider] - 1-2 days Time of Disposition: 21:08
[2018-12-02 21:06] LABS: Partial Thromboplastin Time 24.4 sec (22.0-30.0); Prothrombin Time 10.8 sec (9.0-12.0)
[2018-12-02 21:08] LABS: Alcohol 222 mg/dL
[2018-12-02 21:14] LABS: Creatine Kinase MB 1.3 ng/mL (0.0-2.4); Troponin I <0.012 ng/mL (0.000-0.034)
[2018-12-02 21:31] LABS: HCT 35.6 % (39.0-53.0); HGB 11.7 gm/dL (13.0-17.5); MCH 32.3 pg (25.0-35.0); MCHC 32.9 g/dL (31.0-37.0); MCV 98.1 fL (80.0-100.0); Mean Platelet Volume 6.6; Platelet Count 232 k/uL (150-450); RBC 3.63 m/uL (4.30-5.90); RDW 14.5 % (11.5-15.5); WBC 4.3 k/uL (3.8-10.6)
[2018-12-02 21:44] LABS: Lymphocytes # (M) 2.24 k/uL (1.0-4.8); Monocytes # (M) 0.17 k/uL (0-1.0); Neutrophils % (M) 44 %; Nucleated Red Blood Cells 0 /100 WBC (0-0); Total Cells Counted 100
== END 2018-12-02 21:18 | disposition left against medical advice (07) ==
LOC: EC 20:16
DX: R07.89 Other chest pain (principal); I25.119 Atherosclerotic heart disease of native coronary artery with unspecified angina pectoris; G89.29 Other chronic pain; I25.2 Old myocardial infarction; M46.90 Unspecified inflammatory spondylopathy, site unspecified; M17.0 Bilateral primary osteoarthritis of knee; F17.200 Nicotine dependence, unspecified, uncomplicated; Z88.8 Allergy status to other drugs, medicaments and biological substances; Z91.018 Allergy to other foods; Z95.5 Presence of coronary angioplasty implant and graft; Z82.49 Family history of ischemic heart disease and other diseases of the circulatory system; Z53.20 Procedure and treatment not carried out because of patient's decision for unspecified reasons
CPT/HCPCS: 36415; 93005; 80053; 82553; 83735; 84484; 85025; 85610; 85730; 99285; G0480; 80320

== ENCOUNTER 2018-12-12 05:19 | Inpatient (IN) | payer MEDICARE, MEDICAID ==
--- NOTE | 2018-12-12 06:02 | XR ---
EXAMINATION TYPE: XR chest 2V DATE OF EXAM: 12/12/2018 COMPARISON: 11/14/2018 HISTORY: Chest pain TECHNIQUE: Frontal and lateral views of the chest are obtained. FINDINGS: Heart and mediastinum are normal. Lungs are clear. Diaphragm is normal. Bony thorax appear s normal. Pulmonary vascularity is normal. There are chest leads. IMPRESSION: Normal chest. No change.
[2018-12-12 06:03] LABS: Appearance,Urine Clear (Clear); Bilirubin,Urine Negative (Negative); Blood,Urine Negative (Negative); Color,Urine Light Yellow; Glucose,Urine (UA) Negative (Negative); Ketones,Urine Negative (Negative); Leukocyte Esterase,Urine Negative (Negative); Nitrite,Urine Negative (Negative); Protein,Urine Negative (Negative); Specific Gravity,Urine 1.007 (1.001-1.035); Urobilinogen,Urine <2.0 mg/dL (<2.0)
[2018-12-12 06:06] LABS: HCT 40.2 % (39.0-53.0); HGB 13.2 gm/dL (13.0-17.5); MCHC 32.8 g/dL (31.0-37.0); MCV 97.6 fL (80.0-100.0); Mean Platelet Volume 6.9; Platelet Count 205 k/uL (150-450); RBC 4.12 m/uL (4.30-5.90); RDW 14.4 % (11.5-15.5); WBC 3.3 k/uL (3.8-10.6)
[2018-12-12] MEDS ORDERED: ASPIRIN 81 MG PO STA (06:06)
[2018-12-12] MEDS ORDERED: KETOROLAC 30 MG/ML 1 ML VIAL IVP STA (06:06)
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
[2018-12-12 06:13] LABS: ALT 21 U/L (21-72); AST 32 U/L (17-59); African American GFR (CKD) >90 (>60 ml/min/1.73 sqM); Albumin 4.8 g/dL (3.5-5.0); Alkaline Phosphatase 53 U/L (38-126); Anion Gap 11 mmol/L; Blood Urea Nitrogen 8 mg/dL (9-20); Calcium 9.9 mg/dL (8.4-10.2); Carbon Dioxide 26 mmol/L (22-30); Chloride 105 mmol/L (98-107); Glucose 84 mg/dL (74-99); Sodium 142 mmol/L (137-145); Total Bilirubin 0.9 mg/dL (0.2-1.3); Total Protein 8.5 g/dL (6.3-8.2)
[2018-12-12 06:15] LABS: Amphetamine Screen,Urine Detected (NotDetected); Barbiturate Screen,Urine Not Detected (NotDetected); Benzodiazepines Screen,Urine Not Detected (NotDetected); Cocaine Screen,Urine Detected (NotDetected); Methadone Screen, Urine Not Detected (NotDetected); Opiate Screen,Urine Not Detected (NotDetected); Oxycodone Screen, Urine Not Detected (NotDetected); Phencyclidine Screen,Urine Not Detected (NotDetected); Tricyclic Antidepressant,Urine Not Detected (NotDetected); Urn Cannabinoid Scrn Detected (NotDetected)
[2018-12-12 06:19] LABS: INR 0.9 (<1.2); Partial Thromboplastin Time 24.2 sec (22.0-30.0); Prothrombin Time 10.2 sec (9.0-12.0)
[2018-12-12 06:31] LABS: Basophils # (M) 0.03 k/uL (0-0.2); Lymphocytes # (M) 1.62 k/uL (1.0-4.8); Neutrophils % (M) 41 %; Nucleated Red Blood Cells 0 /100 WBC (0-0); Total Cells Counted 100
[2018-12-12 06:32] LABS: Anisocytosis (M) Present; Poikilocytosis (M) Present; Target Cells Present
[2018-12-12] MEDS ORDERED: MAG HYDROX/AL HYDROX/SIMETH 30 ML CUP PO PRN (09:44)
[2018-12-12] MEDS ORDERED: MAGNESIUM HYDROXIDE 2,400 MG/10 ML CUP PO PRN (09:44)
[2018-12-12] MEDS ORDERED: ZIPRASIDONE 20 MG VIAL IM PRN (09:44)
[2018-12-12] MEDS: NICOTINE 14MG/24HR PATCH TRANSDERM SCH (10:37)
[2018-12-12] MEDS: LORazepam 1 MG TAB PO PRN ×2 (10:42→18:04)
--- NOTE | 2018-12-12 15:14 | P.PN ---
Progress Note - Text Progress Note Date: 12/12/18 Attempted to see patient. Patient is sleeping comfortably in bed. He states that he does not want to speak with the medical doctor at this time. Please call if patient is willing to be seen or with any additional questions or concerns.
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
[2018-12-12] MEDS: VENLAFAXINE HCL ER 37.5 MG CAP PO SCH (20:48)
[2018-12-12] MEDS ORDERED: QUEtiapine 50 MG TAB PO SCH (21:00)
[2018-12-13] MEDS: LORazepam 1 MG TAB PO PRN ×2 (09:19→18:02)
[2018-12-13] MEDS: NICOTINE 14MG/24HR PATCH TRANSDERM SCH (09:19)
[2018-12-13] MEDS: ACETAMINOPHEN TAB 325 MG TAB PO PRN (09:19)
[2018-12-13 09:34] LABS: ALT 17 U/L (21-72); AST 25 U/L (17-59); African American GFR (CKD) >90 (>60 ml/min/1.73 sqM); Albumin 4.1 g/dL (3.5-5.0); Alkaline Phosphatase 49 U/L (38-126); Anion Gap 4 mmol/L; Blood Urea Nitrogen 15 mg/dL (9-20); Calcium 10.2 mg/dL (8.4-10.2); Carbon Dioxide 31 mmol/L (22-30); Chloride 104 mmol/L (98-107); Cholesterol 165 mg/dL (<200); Glucose 87 mg/dL (74-99); Potassium 4.3 mmol/L (3.5-5.1); Sodium 139 mmol/L (137-145); Total Bilirubin 1.8 mg/dL (0.2-1.3); Total Protein 7.3 g/dL (6.3-8.2); Triglycerides 58 mg/dL (<150)
[2018-12-13 09:41] LABS: HCT 37.9 % (39.0-53.0); HGB 12.2 gm/dL (13.0-17.5); LDL Cholesterol,Calculated 14 mg/dL (0-99); MCH 31.5 pg (25.0-35.0); MCHC 32.1 g/dL (31.0-37.0); MCV 98.3 fL (80.0-100.0); Mean Platelet Volume 6.8; Platelet Count 166 k/uL (150-450); RBC 3.86 m/uL (4.30-5.90); RDW 13.9 % (11.5-15.5); WBC 3.2 k/uL (3.8-10.6)
[2018-12-13 09:42] LABS: HDL Cholesterol 139 mg/dL (40-60)
[2018-12-13 10:10] LABS: Basophils # (M) 0.03 k/uL (0-0.2); Eosinophils # (M) 0.06 k/uL (0-0.7); Lymphocytes # (M) 2.02 k/uL (1.0-4.8); Monocytes # (M) 0.42 k/uL (0-1.0); Neutrophils % (M) 21 %; Nucleated Red Blood Cells 0 /100 WBC (0-0); Total Cells Counted 100
--- NOTE | 2018-12-13 11:03 | P.PN ---
Progress Note - Text Interval history: The patient is found in his room he refuses to follow me to an interview room. He was admitted over the weekend reporting suicidal ideation with command auditory hallucinations. He does have a history of schizophrenia. He also was noted to have a drug screen positive for methamphetamine and cocaine and marijuana and he reports drinking numerous beers per day. CIWA scores reviewed. The patient is recorded to us slept throughout the evening. Vital signs reviewed. He has not been attending groups. He answered some brief questions. He states he still has suicidal thoughts he endorses auditory hallucinations. Mental status exam: The patient is an -Monegasque male lying in bed covered with a blanket. Eye contact is poor. Speech is nonspontaneous but he provide some brief answers to questions asked. He endorses suicidal thoughts he endorses auditory hallucinations directing self-harm. He is very nonspecific as to what they say however. He demonstrates no verbal or physical aggressiveness he demonstrates no involuntary repetitive movements. He maintains a blunted affect. Insight and judgment are impaired. He appears to be in no acute distress. He spontaneously demonstrates no tangential thinking loose associations or flight of ideas. Plan: The patient will continue on the Seroquel we will increase the dose to 100 mg. We will monitor him for safety he is encouraged to participate in the milieu. We will continue to monitor his vital signs for any symptoms of withdrawal. Ativan is available as needed for alcohol withdrawal symptoms. Certainly we will discuss the option of inpatient chemical dependency treatment again.
[2018-12-13 14:22] VITALS: BMI 19.6
[2018-12-13 19:43] LABS: Hemoglobin A1C 5.4 % (4.0-6.0)
[2018-12-13] MEDS ORDERED: QUEtiapine 100 MG TAB PO SCH (21:00)
[2018-12-13] MEDS: VENLAFAXINE HCL ER 37.5 MG CAP PO SCH (21:51)
[2018-12-14] MEDS: LORazepam 1 MG TAB PO PRN ×2 (09:24→20:17)
[2018-12-14] MEDS: NICOTINE 14MG/24HR PATCH TRANSDERM SCH (09:25)
--- NOTE | 2018-12-14 10:21 | P.PN ---
Progress Note - Text Interval history: The patient's found in his room he refuses to follow me to an interview room. He indicates he feels terrible. He states that hallucinations direct him to harm himself and harm others. He states that he has been using substances more heavily since the of his mother 2 weeks ago. He reports that he would see her every other day and they were close. He indicates he would like to attend inpatient chemical dependency treatment but states he needs help with making the phone call. We discussed the process for initiating inpatient chemical dependency treatment. Mental status exam: The patient is a thin -[place]izen [place] male, he is lying in bed eye contact is intermittent. He refuses to leave his room to speak. He demonstrates no spontaneous speech but provides brief answers to questions. He reports suicidal thoughts he endorses command auditory hallucinations. He demonstrates no verbal or physical aggressiveness. He maintains a blunted affect. He demonstrates no involuntary repetitive movements. Insight and judgment are impaired. He reports no thoughts of harming others. Plan: The patient will continue on the Seroquel we will increase the dose to 200 mg at bedtime. He is encouraged to ambulate and attend groups. He is encouraged to place a phone call to access. Vital signs reviewed. We will continue to monitor him for safety. He requires continued psychiatric hospitalization.
[2018-12-14] MEDS: VENLAFAXINE HCL ER 37.5 MG CAP PO SCH (20:17)
[2018-12-14] MEDS: QUEtiapine 200 MG TAB PO SCH (20:17)
[2018-12-15] MEDS: NICOTINE 14MG/24HR PATCH TRANSDERM SCH (08:24)
[2018-12-15] MEDS: LORazepam 1 MG TAB PO PRN ×2 (08:25→16:21)
--- NOTE | 2018-12-15 11:14 | P.PN ---
Progress Note - Text Interval history: The patient is found in his room he follows me to an interview room today. He indicates that his mood is not so good. Continues to report ongoing hallucinations that are troubling. He continues to report feelings of grief related to the loss of his mother. He did get up and eat breakfast. He has not showered yet but states he will do so later today. We reviewed his psychotropic medications he has no questions. We discussed titrating the Seroquel further. He continues to want to attend inpatient chemical dependency treatment. Social work has been assisting the patient in calling the access line. Mental status exam: The patient is a thin -[place] male he is dressed in hospital gowns. Eye contact is intermittent. He does have some spontaneous speech. He reports his mood is not good. He is endorsing auditory hallucinations that can be commanding at times. He reports no thoughts of wanting to hurt others. He indicates he feels safe in the hospital in terms of suicidal ideation. He demonstrates no verbal or physical aggressiveness. He maintains a blunted affect throughout the session. He does move his legs frequently during the session as well as his hands. Insight and judgment impaired. Plan: The patient will continue on the Seroquel we will consider titrating it further. Vital signs are reviewed. He is encouraged to shower today and to attend groups. Social work will continue helping him initiate placement at a facility for inpatient chemical dependency treatment. He requires continued psychiatric hospitalization.
[2018-12-15] MEDS: ACETAMINOPHEN TAB 325 MG TAB PO PRN (16:21)
[2018-12-15] MEDS: VENLAFAXINE HCL ER 37.5 MG CAP PO SCH (20:40)
[2018-12-15] MEDS: QUEtiapine 200 MG TAB PO SCH (20:40)
[2018-12-16] MEDS: LORazepam 1 MG TAB PO PRN ×2 (08:07→17:11)
[2018-12-16] MEDS: NICOTINE 14MG/24HR PATCH TRANSDERM SCH (08:07)
--- NOTE | 2018-12-16 09:27 | P.PN ---
Progress Note - Text Interval history: The patient is found in his room he follows me to an interview room. He indicates things are a little better. He describes continued auditory hallucinations that direct self-harm and harm to others however. He states that he did not sleep very well last night except for 2 hours. Staff report he slept 6 hours. He indicates he has not been attending groups very well but plans on attending 2-3 today. He is aware that he needs to speak with social work and call the access line again. Mental status exam: The patient is a thin -Andorran male appearing older than his stated age. He is dressed in hospital gowns. Eye contact is improving. Speech is fluent and spontaneous at times. He reports ongoing fernández icidal thoughts. He reports being troubled by auditory hallucinations directing self-harm. He demonstrates no evidence of psychosis while seated in the chair. He does not appear to be distracted by the reported hallucinations. He demonstrates no tangential thinking loose associations or flight of ideas. He does not appear hypomanic or manic. He maintains a constricted affect. He is oriented to person and place he names the month is January he names the day of the week as Thursday. He demonstrates no verbal or physical aggressiveness. He does continue to move his legs during the session. Plan: The patient will continue on his current psychotropic medication. He is reporting some mild improvement. We will monitor him for safety. We will titrate his Seroquel to 300 mg at bedtime. He is encouraged to participate in the milieu. Vital signs reviewed. We will monitor for hypotension.
[2018-12-16] MEDS: QUEtiapine 100 MG TAB PO SCH (20:56)
[2018-12-16] MEDS: VENLAFAXINE HCL ER 37.5 MG CAP PO SCH (20:56)
[2018-12-17] MEDS: NICOTINE 14MG/24HR PATCH TRANSDERM SCH (08:27)
[2018-12-17] MEDS: LORazepam 1 MG TAB PO PRN ×2 (08:28→22:10)
--- NOTE | 2018-12-17 09:12 | P.PN ---
Progress Note - Text Interval history: The patient is found in his room he follows me to an interview room. He reports that his appetite is starting to improve he breakfast this morning. Staff reported he slept 6 hours last evening. He states he attended 2 groups yesterday and plans to attend more today. He has no questions or concerns regarding his psychotropic medication. He states that the auditory hallucinations or still present and commanding at times but they are becoming less frequent. Mental status exam: The patient is alert he is dressed in hospital attire eye contact is improved. Affect is brighter. He reports that his mood is improving. Suicidal thoughts seem to be fading he reports. He does feel safe in the hospital. He reports no homicidal ideation intent or plan. He continues to experience command auditory hallucinations but he states that they are becoming less frequent and more manageable. He demonstrates no verbal or physical aggressiveness. He is calmly seated in the chair. He is moving his feet during the interview but not his legs. Speech is fluent nonpressured, he does provide brief answers to questions asked there is little spontaneous speech. Plan: The patient will continue on his current psychotropic medication. He has completed the screening for inpatient chemical dependency treatment we are carina iting a placement date. We will monitor him for safety and monitor for further resolution of the acute suicidal ideation as well as command auditory hallucinations. Vital signs reviewed.
[2018-12-17] MEDS: VENLAFAXINE HCL ER 37.5 MG CAP PO SCH (21:16)
[2018-12-17] MEDS: QUEtiapine 100 MG TAB PO SCH (21:16)
--- NOTE | 2018-12-18 08:19 | P.PN ---
Progress Note - Text Interval history: The patient is found in the hallway he follows me to an interview room. He states his mood feels "a little bad today". He reports that the voices will come and go. He indicates he slept last night appetite slowly improving. He states he attended 3 groups yesterday. Has no questions or concerns regarding his psychotropic medication. Mental status exam: The patient is an -Portuguese male appearing older than his stated age. He is dressed in hospital gowns. Eye contact is appropriate. He speaks softly he has more spontaneous speech. He reports some intermittent suicidal thoughts but overall feels they are improving. He reports improvement in the auditory hallucinations but they were present last night. He indicates feeling safe here in the hospital. He demonstrates no verbal or physical aggressiveness. He demonstrates no involuntary repetitive movements. Insight and judgment limited. He maintains a blunted affect. Plan: Patient will continue on his current psychotropic medication. We will monitor him for safety and encourage full participation in the milieu. It appears he has a placement dated [place] on the of this month. It would be in his interest to transfer him directly from this facility to [place] to prevent any alcohol relapse. Vital signs reviewed.
[2018-12-18] MEDS: NICOTINE 14MG/24HR PATCH TRANSDERM SCH (08:21)
[2018-12-18] MEDS: LORazepam 1 MG TAB PO PRN ×2 (08:22→16:12)
[2018-12-18] MEDS: VENLAFAXINE HCL ER 37.5 MG CAP PO SCH (20:43)
[2018-12-18] MEDS: QUEtiapine 100 MG TAB PO SCH (20:43)
[2018-12-19] MEDS: NICOTINE 14MG/24HR PATCH TRANSDERM SCH (08:06)
[2018-12-19] MEDS: LORazepam 1 MG TAB PO PRN ×3 (08:06→21:01)
--- NOTE | 2018-12-19 13:01 | P.PN ---
Progress Note - Text Interval history: The patient is found at the medication window he follows me to an interview room. He indicates his mood is slowly improving. He does still have some voices he heard some last night they were noncommanding. He states he's more able to push those away. His mood will fluctuate at times. We reviewed his psychotropic medication his questions were answered. We decided we would continue to titrate the Effexor XR. He is scheduled to go to [place] on social work is trying to arrange transportation for him. Mental status exam: The patient is a thin -Estonian male he is dressed in hospital gowns. Eye contact is appropriate. He is attentive and interactive during the session he has spontaneous speech. He indicates his mood is improving. He indicates that the hallucinations are becoming less problematic. No command auditory hallucinations. He feels safe. He demonstrates no tangential thinking loose associations or flight of ideas. He does not appear hypomanic or manic. He demonstrates no verbal or physical aggressiveness he demonstrates no involuntary repetitive movements. Insight and judgment improving. Plan: The patient will continue on his current medication we will titrate the Effexor XR to 75 mg daily. He is encouraged to fully participate in the milieu. We will monitor him for safety. Vital signs reviewed. I anticipate he will be clinically stable for transfer to [facility] by .
[2018-12-19] MEDS: QUEtiapine 100 MG TAB PO SCH (21:01)
[2018-12-20] MEDS: VENLAFAXINE HCL ER 75 MG CAP PO SCH (08:00)
[2018-12-20] MEDS: NICOTINE 14MG/24HR PATCH TRANSDERM SCH (08:00)
[2018-12-20] MEDS: LORazepam 1 MG TAB PO PRN ×2 (08:01→15:06)
--- NOTE | 2018-12-20 09:53 | P.PN ---
Progress Note - Text Interval history: The patient is found in his room he follows me to an interview room. He states that his mood is slowly improving. He indicates having some problems sleeping last night staff recorded he slept 7 hours. Appetite stable. He reports that the voices are still present with her no longer commanding they sound like static or he will hear his brother's name called. He has been speaking with family via phone. His brother was given a visit last evening but could not due to transportation issues. The patient has no concerns regarding his medication he feels that the Seroquel has been effective. Mental status exam: The patient is alert he is dressed in hospital gowns hygiene grooming adequate. Eye contact is appropriate speech is fluent and spontaneous nonpressured. He indicates his mood is improving. He is reporting a progressive decrease in the auditory hallucinations in terms of frequency and intensity. The voices are no longer commanding self-harm. Insight and judgment improving. He demonstrates no verbal or physical aggressiveness. He demonstrates no abnormal involuntary movements. His affect is slowly becoming brighter. He is more interactive during the session. Plan: The patient will continue on his current psychotropic medications. We have just titrated his Effexor XR we will consider titrating that further. We're awaiting placement at [place] social work is attempting to arrange transportation. Vital signs reviewed.
[2018-12-20] MEDS: QUEtiapine 100 MG TAB PO SCH (20:34)
[2018-12-21] MEDS: VENLAFAXINE HCL ER 75 MG CAP PO SCH (08:34)
[2018-12-21] MEDS: NICOTINE 14MG/24HR PATCH TRANSDERM SCH (08:34)
[2018-12-21] MEDS: LORazepam 1 MG TAB PO PRN ×2 (08:35→17:18)
--- NOTE | 2018-12-21 09:37 | P.PN ---
Progress Note - Text Interval history: The patient is found in his room he follows me to an interview room. He feels that he is stabilizing. He is endorsing no acute suicidal ideation. He states that auditory hallucinations seemed to improve each day. He indicates he slept well staff report he slept 6 hours. He has no questions or concerns regarding his medication. We continue to work on arrangements to transport him to [place] for . Mental status exam: The patient is alert he is dressed in hospital gowns eye contact is appropriate speech is fluent. He has more spontaneous speech affect is brighter. He indicates his mood is improving. He is feeling more hopeful. He is reporting no acute suicidal ideation intent or plan and feels safe in the hospital. He reports no homicidal ideation intent or plan. He indicates continued auditory hallucinations that are no longer commanding he states that they are getting better each day in terms of amplitude and frequency. He demonstrates no tangential thinking loose associations or flight of ideas. He does not appear to be hypomanic or manic. Insight and judgment improving. Plan: The patient is clinically stabilizing. We will continue his medications as written. We will continue to make arrangements to have him start [place] inpatient chemical dependency treatment . Social work has requested an earlier placement if possible. Vital signs reviewed. We will continue to monitor him for safety and he is encouraged to participate fully in the milieu.
[2018-12-21] MEDS: QUEtiapine 100 MG TAB PO SCH (20:43)
[2018-12-22 06:56] VITALS: RESP 16
[2018-12-22] MEDS: NICOTINE 14MG/24HR PATCH TRANSDERM SCH (08:19)
[2018-12-22] MEDS: VENLAFAXINE HCL ER 75 MG CAP PO SCH (08:19)
[2018-12-22] MEDS: LORazepam 1 MG TAB PO PRN ×2 (08:19→16:17)
--- NOTE | 2018-12-22 09:20 | P.PN ---
Progress Note - Text Interval history: The patient is found in his room he follows me to an interview room. He indicates his mood is good. He feels that things continue to improve. He reports no concerns regarding his medication. We discussed continuing the Seroquel and Effexor XR is written. He is looking forward to going to [place] for inpatient chemical dependency treatment. He indicates he has been attending more groups. Appetite is stable he is sleeping throughout the night he is attending to activities of daily living. Mental status exam: The patient is alert he is dressed in hospital gowns eye contact is good speech is fluent spontaneous nonpressured. He reports mood is much improved affect is brighter. He denies having any suicidal or homicidal ideation intent or plan. He reports no auditory or visual hallucinations or any specific delusions at this point. He reports feeling hopeful. He describes future oriented thinking. He demonstrates no verbal or physical aggressiveness he demonstrates no involuntary repetitive movements. Insight and judgment grossly intact. Plan: The patient will be discharged tomorrow to be directly transferred to [place] for inpatient chemical dependency treatment. We will continue to monitor him for safety. Vital signs reviewed.
[2018-12-22] MEDS: QUEtiapine 100 MG TAB PO SCH (20:37)
[2018-12-23 06:58] VITALS: BP 109/72; PULSE 78; TEMP 98.4
[2018-12-23] MEDS: NICOTINE 14MG/24HR PATCH TRANSDERM SCH (08:21)
[2018-12-23] MEDS: VENLAFAXINE HCL ER 75 MG CAP PO SCH (08:21)
[2018-12-23] MEDS: LORazepam 1 MG TAB PO PRN (08:22)
--- NOTE | 2018-12-23 08:46 | P.DS ---
Providers Date of admission: 12/12/18 08:54 Expected date of discharge: 12/23/18 Attending physician: Indra Collins Consults: 12/12/18 09:44 Consult Physician Routine Consulting Provider: Chu Fry Consult Reason/Comments: history and physical Do you want consulting provider notified?: Yes Primary care physician: Physician Nonstaff - Discharge Diagnosis(es) (1) Schizoaffective disorder Current Visit: Yes Status: Acute Priority: High (2) Alcohol use disorder Current Visit: Yes Status: Acute Priority: High (3) Cocaine use disorder Current Visit: Yes Status: Acute Priority: High Hospital Course: Brief summary of admission note: This patient is a 58-year-old -[place] male who is admitted to the mental health unit through the emergency room for suicidal ideation. The patient stated he had stopped his psychotropic medication numerous months ago. He reported that his mother had recently and he was grieving her . He felt sad and hopeless and worthless. He reported suicidal ideation. This occurred in the context of him relapsing with alcohol and cocaine use. He also had marijuana and methamphetamine in his system. The patient is well known to the psychiatric service and has a history of schizoaffective disorder. For full details please refer to the psychiatric evaluation dated 12/12/2018. Summary of hospital course: The patient was admitted to the mental health unit voluntarily. We reviewed his presenting symptoms and treatment options. He was initially seen by Dr. Lombardo and I assume care of the patient the following Thursday. He was restarted on Seroquel and Effexor XR. These are medications that have historically stabilized him in terms of mood and psychotic symptoms. He was seen by internal medicine for routine history and physical exam. pattern worker met with the patient to complete a psychosocial assessment and begin discharge planning. The patient indicated that he wished to attend inpatient chemical dependency treatment. Arrangements are made for him to be transferred to [place] today for that level of care. The Seroquel was eventually titrated to 300 mg at bedtime the Effexor XR was titrated to 75 mg daily. He reports a complete resolution of any suicidal ideation intent or plan as well as any auditory hallucinations or any other symptoms of psychosis. He has become much more interactive in the milieu he is menstruating much brighter affect he spontaneously engages in conversation. He describes future oriented thinking. Mental status exam: The patient is a thin -Botswan[place] male he is dressed in hospital attire. Eye contact is appropriate speech is fluent spontaneous no npressured. He offers a greeting upon approach. He reports his mood is good he denies having any hopelessness thinking or any suicidal ideation intent or plan. He reports no homicidal ideation intent or plan. He reports no auditory or visual hallucinations or any specific delusions. He specifically denies having any command auditory hallucinations. There is no current observed evidence of psychosis. He demonstrates no tangential thinking loose associations or flight of ideas he does not appear hypomanic or manic. He demonstrates no verbal or physical aggressiveness he demonstrates no involuntary repetitive movements. Insight and judgment grossly intact. He remains oriented to person place and date. Impressions 1. Schizoaffective disorder depressed type, alcohol use disorder, cocaine use disorder, rule out cannabis use disorder Plan: The patient will be discharged mental health unit today and he will be directly transferred to [place] for inpatient chemical dependency treatment. He will continue on Seroquel 300 mg at bedtime Effexor XR 75 mg daily. Obviously he is instructed to abstain from any use of alcohol marijuana or illicit drugs as these will precipitate symptoms of psychosis and elevate his safety risk. At this time there is no imminent safety risk he is appropriate for transition to inpatient chemical dependency treatment. He is instructed to return to the hospital with any acute safety concerns. Patient Condition at Discharge: Stable Plan - Discharge Summary New Discharge Prescriptions: New Venlafaxine HCl ER [Effexor XR] 75 mg PO DAILY #30 cap.er.24h Nicotine 14Mg/24Hr Patch [Habitrol] 1 patch TRANSDERM DAILY #14 patch QUEtiapine FUMARATE [SEROquel] 300 mg PO HS #30 tab Discontinued Gabapentin [Neurontin] 300 mg PO HS Baclofen [Lioresal] 10 mg PO TID HYDROcodone/APAP 10-325MG [[place] 10-325] 1 tab PO TID PRN PRN Reason: Pain Aspirin 81 mg PO DAILY chew Discharge Medication List Nicotine 14Mg/24Hr Patch [Habitrol] 1 patch TRANSDERM DAILY #14 patch 12/23/18 [Rx] QUEtiapine FUMARATE [SEROquel] 300 mg PO HS #30 tab 12/23/18 [Rx] Venlafaxine HCl ER [Effexor XR] 75 mg PO DAILY #30 cap.er.24h 12/23/18 [Rx] Follow up Appointment(s)/Referral(s): [facility] [Outside] - 12/23/18 10:30 am (intake) [facility] - [facility] Week Patient Instructions/Handouts: Suicide Prevention (DC) Activity/Diet/Wound Care/Special Instructions: Activity and diet as tolerated. No guns or weapons in the home. Refrain from alcohol and street drugs not prescribed by your physicians. Take all me dications as prescribed, and attend all follow up appointments as scheduled. If in need of medication refills, please go to your Primary care physician, or your out patient psychiatric provider. If in crisis, please go to the nearest ER for an evaluation, or call .
== END 2018-12-23 09:30 | disposition home or self-care (01) | DRG 885 ==
LOC: EC 05:19 → 3MHU 08:54
PROVIDERS: ADMIT Psychiatry & Neurology Psychiatry; ATTEND Psychiatry & Neurology Psychiatry
DX: F25.1 Schizoaffective disorder, depressive type (principal); R45.851 Suicidal ideations; E78.5 Hyperlipidemia, unspecified; F10.20 Alcohol dependence, uncomplicated; F14.10 Cocaine abuse, uncomplicated; F17.210 Nicotine dependence, cigarettes, uncomplicated; G89.29 Other chronic pain; I25.10 Atherosclerotic heart disease of native coronary artery without angina pectoris; I25.2 Old myocardial infarction; R07.9 Chest pain, unspecified; Z63.4 Disappearance and death of family member; Z79.82 Long term (current) use of aspirin; Z79.899 Other long term (current) drug therapy; Z81.8 Family history of other mental and behavioral disorders; Z82.49 Family history of ischemic heart disease and other diseases of the circulatory system; Z95.5 Presence of coronary angioplasty implant and graft; T43.96XA Underdosing of unspecified psychotropic drug, initial encounter; Z91.128 Patient's intentional underdosing of medication regimen for other reason; Z88.8 Allergy status to other drugs, medicaments and biological substances; F12.10 Cannabis abuse, uncomplicated
CPT/HCPCS: 36415; 71046; 80053; 80061; 80306; 81003; 82075; 83036; 83690; 84443; 84484; 85025; 85610; 85730; 93005; 96374; 99285

== ENCOUNTER 2019-03-14 17:05 | Inpatient (IN) | payer MEDICARE, MEDICAID ==
[2019-03-14] MEDS ORDERED: diphenhydrAMINE 50 MG/ML 1 ML VIAL IVP STA (17:48)
[2019-03-14] MEDS ORDERED: FAMOTIDINE 20 MG TAB PO STA (17:48)
[2019-03-14] MEDS ORDERED: predniSONE 50 MG TAB PO STA (17:49)
--- NOTE | 2019-03-14 17:52 | ED ---
Psych HPI - General Source: patient, EMS, RN notes reviewed Mode of arrival: EMS - History of Present Illness MD Complaint: suicidal ideation, feels depressed, other <Jamie Bird - Last Filed: 03/14/19 20:55> <Mauri Green - Last Filed: 03/14/19 21:35> - General Chief Complaint: Psychiatric Symptoms Stated Complaint: suicidal Time Seen by Provider: 03/14/19 17:31 - History of Present Illness Initial Comments: This is a 57-year-old male history depression who states he is feeling depressed and suicidal. He states is been going off the past 4 days he states he has not been taking his medication and been drinking and smoking he thinks he smoked cocaine recently. No chest pain no fevers chills nausea vomiting sweats he does state he is a heart patient and has had stents in the past. Additionally he states he ate some raspberries which she is ALLERGIC to him blueberries. He's had a rash and very itchy since yesterday he states is getting somewhat better. No trouble swallowing. No trouble with breathing. (Jamie Bird) - Related Data Home Medications Medication Instructions Recorded Confirmed Albuterol Sulfate [Ventolin HFA] 1 - 2 puff INHALATION RT-Q6H PRN 03/14/19 03/14/19 Baclofen [Lioresal] 10 mg PO TID 03/14/19 03/14/19 Budesonide/Formoterol Fumarate 2 puff INHALATION RT-BID 03/14/19 03/14/19 [Symbicort 160-4.5 Mcg Inhaler] DULoxetine HCL [Cymbalta] 30 mg PO BID 03/14/19 03/14/19 HYDROcodone/APAP 7.5-325MG [[place] 1 tab PO TID PRN 03/14/19 03/14/19 7.5-325] QUEtiapine [SEROquel] 400 mg PO HS 03/14/19 03/14/19 Venlafaxine HCl [Effexor XR] 150 mg PO DAILY 03/14/19 03/14/19 amLODIPine [Norvasc] 2.5 mg PO DAILY 03/14/19 03/14/19 Allergies Allergy/AdvReac Type Severity Reaction Status Date / Time blueberry Allergy Rash/Hives Verified 03/14/19 19:37 nitroglycerin Allergy Swelling Verified 03/14/19 19:37 Review of Systems ROS Other: All systems not noted in ROS Statement are negative. <Jamie Bird - Last Filed: 03/14/19 20:55> ROS Other: All systems not noted in ROS Statement are negative. <Mauri Green - Last Filed: 03/14/19 21:35> ROS Statement: Those systems with pertinent positive or pertinent negative responses have been documented in the HPI. Past Medical History Past Medical History: Coronary Artery Disease (CAD), Chest Pain / Angina, Hyperlipidemia, Myocardial Infarction (RI), Osteoarthritis (OA) Additional Past Medical History / Comment(s): Pt denies COPD, arthritis in back and bilateral knees, benign colon polyps Last Myocardial Infarction Date:: 2004 History of Any Multi-Drug Resistant Organisms: None Reported Past Surgical History: Bowel Resection, Heart Catheterization With Stent Additional Past Surgical History / Comment(s): Cardiac stents x 3, bowel surgery for pinpoint hole in bowel, L knee arthroscopy, colonoscopy/benign lee ypectomies. Past Anesthesia/Blood Transfusion Reactions: No Reported Reaction Date of Last Stent Placement:: 2013 Past Psychological History: Bipolar, Depression, Schizophrenia Smoking Status: Current every day smoker Past Alcohol Use History: Heavy Past Drug Use History: Marijuana - Past Family History Father Family Medical History: Respiratory Disorder Additional Family Medical History / Comment(s): Father at age 64 from Black lung disease Mother Family Medical History: Myocardial Infarction (RI) Additional Family Medical History / Comment(s): Mother of an RI at 78yrs old. Brother(s) Family Medical History: Myocardial Infarction (RI) Additional Family Medical History / Comment(s): Patient has 10 brothers and 2 from myocardial infarction and had history of alcoholism. Sister(s) Additional Family Medical History / Comment(s): He has 7 sisters that are alive with no major medical problems. He has one son that has and one daughter that is alive and okay. <Jamie Bird - Last Filed: 03/14/19 20:55> General Exam Limitations: no limitations General appearance: alert, anxious Head exam: Present: atraumatic, normocephalic, normal inspection Eye exam: Present: normal appearance, PERRL, EOMI. Absent: scleral icterus, conjunctival injection, periorbital swelling ENT exam: Present: normal exam, mucous membranes moist Neck exam: Present: normal inspection, full ROM, other (No stridor JVD or bruits). Absent: tenderness, meningismus, lymphadenopathy Respiratory exam: Present: normal lung sounds bilaterally. Absent: respiratory distress, wheezes, rales, rhonchi, stridor Cardiovascular Exam: Present: regular rate, normal rhythm, normal heart sounds. Absent: systolic murmur, diastolic murmur, rubs, gallop, clicks GI/Abdominal exam: Present: soft, normal bowel sounds. Absent: distended, tenderness, guarding, rebound, rigid Extremities exam: Present: full ROM, normal capillary refill, other (Slight erythema to the integument). Absent: tenderness, pedal edema, joint swelling, calf tenderness Back exam: Present: normal inspection Neurological exam: Present: alert, oriented X3, CN II-XII intact Psychiatric exam: Present: depressed, flat affect, suicidal ideation Skin exam: Present: warm, dry, intact, erythema (Light erythema seen to the integument). Absent: rash <Jamie Bird - Last Filed: 03/14/19 20:55> - General Exam Comments Initial Comments: Is a well-developed well-nourished awake alert oriented 3 male (Jamie Bird) Course <Jamie Bird - Last Filed: 03/14/19 20:55> <Mauri Green - Last Filed: 03/14/19 21:35> Vital Signs 03/14/19 17:10 Temperature 98.9 F Pulse Rate 96 Respiratory 20 Rate Blood Pressure 141/86 O2 Sat by Pulse 99 Oximetry - Reevaluation(s) Reevaluation #1: 03/14/19 18:02 Patient initially told me he had no chest pain or shortness of breath he did later tell the psychiatric nurse that he has some chest pain. He will be evaluated with respect to this in light of his past history. (Jamie Bird) Reevaluation #2: 03/14/19 19:43 Patient is medically cleared for EPS evaluation. (Jamie Bird) Reevaluation #3: 03/14/19 20:55 Patient is admitted medically cleared for psychiatry the patient's disposition is pending I will endorse the case to Dr. Mccoy at our shift change (Jamie Bird) Reevaluation #4: 03/14/19 21:33 I did see and evaluate the patient for the purposes of filing the clinical certificate. Patient does request medication to help with the voices he is hearing and states that Seroedl has worked previously. (Mauri Green) Medical Decision Making - Lab Data Result diagrams: 03/14/19 18:49 03/14/19 18:49 - EKG Data -: EKG Interpreted by Me EKG shows normal: sinus rhythm <Jamie Bird - Last Filed: 03/14/19 20:55> - Lab Data Result diagrams: 03/14/19 18:49 03/14/19 18:49 <Mauri Green - Last Filed: 03/14/19 21:35> - Lab Data Lab Results 03/14/19 03/14/19 03/14/19 Range/Units 18:49 18:49 18:49 WBC 5.5 (3.8-10.6) k/uL RBC 4.03 L (4.30-5.90) m/uL Hgb 12.5 L (13.0-17.5) gm/dL Hct 38.6 L (39.0-53.0) % MCV 95.8 (80.0-100.0) fL MCH 31.0 (25.0-35.0) pg MCHC 32.4 (31.0-37.0) g/dL RDW 14.2 (11.5-15.5) % Plt Count 180 (150-450) k/uL Neutrophils % 48 % Lymphocytes % 38 % Monocytes % 8 % Eosinophils % 1 % Basophils % 1 % Neutrophils # 2.6 (1.3-7.7) k/uL Lymphocytes # 2.1 (1.0-4.8) k/uL Monocytes # 0.4 (0-1.0) k/uL Eosinophils # 0.0 (0-0.7) k/uL Basophils # 0.1 (0-0.2) k/uL Sodium 136 L (137-145) mmol/L Potassium 4.3 (3.5-5.1) mmol/L Chloride 98 (98-107) mmol/L Carbon Dioxide 27 (22-30) mmol/L Anion Gap 11 mmol/L BUN 11 (9-20) mg/dL Creatinine 0.87 (0.66-1.25) mg/dL Est GFR (CKD-EPI)AfAm >90 (>60 ml/min/1.73 sqM) Est GFR (CKD-EPI)NonAf >90 (>60 ml/min/1.73 sqM) Glucose 66 L (74-99) mg/dL Calcium 9.5 (8.4-10.2) mg/dL Magnesium 2.0 (1.6-2.3) mg/dL Total Bilirubin 0.8 (0.2-1.3) mg/dL AST 35 (17-59) U/L ALT 19 (4-49) U/L Alkaline Phosphatase 58 (38-126) U/L Creatine Kinase 519 H (55-170) U/L Troponin I <0.012 (0.000-0.034) ng/mL Total Protein 8.0 (6.3-8.2) g/dL Albumin 4.7 (3.5-5.0) g/dL Urine Opiates Screen (NotDetected) Ur Oxycodone Screen (NotDetected) Urine Methadone Screen (NotDetected) Ur Propoxyphene Screen (NotDetected) Ur Barbiturates Screen (NotDetected) U Tricyclic Antidepress (NotDetected) Ur Phencyclidine Scrn (NotDetected) Ur Amphetamines Screen (NotDetected) U Methamphetamines Scrn (NotDetected) U Benzodiazepines Scrn (NotDetected) Urine Cocaine Screen (NotDetected) U Marijuana (THC) Screen (NotDetected) 03/14/19 Range/Units 19:05 WBC (3.8-10.6) k/uL RBC (4.30-5.90) m/uL Hgb (13.0-17.5) gm/dL Hct (39.0-53.0) % MCV (80.0-100.0) fL MCH (25.0-35.0) pg MCHC (31.0-37.0) g/dL RDW (11.5-15.5) % Plt Count (150-450) k/uL Neutrophils % % Lymphocytes % % Monocytes % % Eosinophils % % Basophils % % Neutrophils # (1.3-7.7) k/uL Lymphocytes # (1.0-4.8) k/uL Monocytes # (0-1.0) k/uL Eosinophils # (0-0.7) k/uL Basophils # (0-0.2) k/uL Sodium (137-145) mmol/L Potassium (3.5-5.1) mmol/L Chloride (98-107) mmol/L Carbon Dioxide (22-30) mmol/L Anion Gap mmol/L BUN (9-20) mg/dL Creatinine (0.66-1.25) mg/dL Est GFR (CKD-EPI)AfAm (>60 ml/min/1.73 sqM) Est GFR (CKD-EPI)NonAf (>60 ml/min/1.73 sqM) Glucose (74-99) mg/dL Calcium (8.4-10.2) mg/dL Magnesium (1.6-2.3) mg/dL Total Bilirubin (0.2-1.3) mg/dL AST (17-59) U/L ALT (4-49) U/L Alkaline Phosphatase (38-126) U/L Creatine Kinase (55-170) U/L Troponin I (0.000-0.034) ng/mL Total Protein (6.3-8.2) g/dL Albumin (3.5-5.0) g/dL Urine Opiates Screen Not Detected (NotDetected) Ur Oxycodone Screen Not Detected (NotDetected) Urine Methadone Screen Not Detected (NotDetected) Ur Propoxyphene Screen Not Detected (NotDetected) Ur Barbiturates Screen Not Detected (NotDetected) U Tricyclic Antidepress Not Detected (NotDetected) Ur Phencyclidine Scrn Not Detected (NotDetected) Ur Amphetamines Screen Not Detected (NotDetected) U Methamphetamines Scrn Not Detected (NotDetected) U Benzodiazepines Scrn Not Detected (NotDetected) Urine Cocaine Screen Detected H (NotDetected) U Marijuana (THC) Screen Not Detected (NotDetected) - EKG Data EKG Comments: Normal sinus rhythm of 80 OH interval 140 QRS duration 84 QT since QTC 42/463 that anterior fascicular block moderate voltage criteria for LVH no acute ST-T wave changes (Jamie Bird) Disposition <Jamie Bird - Last Filed: 03/14/19 20:55> <Mauri Green - Last Filed: 03/14/19 21:35> Clinical Impression: Depression, Suicidal ideation, Allergic reaction Disposition: ADMITTED IP TO THIS [facility] Condition: Fair Referrals: None,Stated [REFERRING] - 1-2 days
[2019-03-14 19:00] LABS: Basophils # (A) 0.1 k/uL (0-0.2); Basophils % (A) 1 %; Eosinophils % (A) 1 %; HCT 38.6 % (39.0-53.0); HGB 12.5 gm/dL (13.0-17.5); Lymphocytes # (A) 2.1 k/uL (1.0-4.8); Lymphocytes % (A) 38 %; MCHC 32.4 g/dL (31.0-37.0); MCV 95.8 fL (80.0-100.0); Mean Platelet Volume 8.5; Monocytes # (A) 0.4 k/uL (0-1.0); Monocytes % (A) 8 %; Neutrophils # (A) 2.6 k/uL (1.3-7.7); Neutrophils % (A) 48 %; Platelet Count 180 k/uL (150-450); RBC 4.03 m/uL (4.30-5.90); RDW 14.2 % (11.5-15.5); WBC 5.5 k/uL (3.8-10.6)
[2019-03-14 19:02] LABS: ALT 19 U/L (4-49); AST 35 U/L (17-59); African American GFR (CKD) >90 (>60 ml/min/1.73 sqM); Albumin 4.7 g/dL (3.5-5.0); Alkaline Phosphatase 58 U/L (38-126); Anion Gap 11 mmol/L; Blood Urea Nitrogen 11 mg/dL (9-20); Calcium 9.5 mg/dL (8.4-10.2); Carbon Dioxide 27 mmol/L (22-30); Chloride 98 mmol/L (98-107); Creatine Kinase 519 U/L (55-170); Glucose 66 mg/dL (74-99); Non-African American GFR(CKD) >90 (>60 ml/min/1.73 sqM); Potassium 4.3 mmol/L (3.5-5.1); Sodium 136 mmol/L (137-145); Total Bilirubin 0.8 mg/dL (0.2-1.3)
[2019-03-14 21:32] LABS: Amphetamine Screen,Urine Not Detected (NotDetected); Barbiturate Screen,Urine Not Detected (NotDetected); Benzodiazepines Screen,Urine Not Detected (NotDetected); Cocaine Screen,Urine Detected (NotDetected); Methadone Screen, Urine Not Detected (NotDetected); Opiate Screen,Urine Not Detected (NotDetected); Oxycodone Screen, Urine Not Detected (NotDetected); Phencyclidine Screen,Urine Not Detected (NotDetected); Tricyclic Antidepressant,Urine Not Detected (NotDetected); Urn Cannabinoid Scrn Not Detected (NotDetected)
[2019-03-14] MEDS ORDERED: VENLAFAXINE HCL ER 150 MG CAP PO STA (21:34)
[2019-03-14] MEDS ORDERED: QUEtiapine 400 MG TAB PO STA (21:34)
[2019-03-14] MEDS ORDERED: ZIPRASIDONE 20 MG VIAL IM ONE (22:24)
[2019-03-14] MEDS: ZIPRASIDONE 20 MG VIAL IM PRN (22:27)
[2019-03-14] MEDS ORDERED: QUEtiapine 400 MG TAB PO SCH (22:30)
[2019-03-14] MEDS: NICOTINE 14MG/24HR PATCH TRANSDERM SCH (22:44)
[2019-03-14] MEDS ORDERED: ALBUTEROL INHALER 60 PUFF/8 GM INHALER INHALATION PRN (23:00)
[2019-03-15] MEDS ORDERED: MAG HYDROX/AL HYDROX/SIMETH 30 ML CUP PO PRN
[2019-03-15] MEDS ORDERED: VENLAFAXINE HCL ER 150 MG CAP PO SCH (09:00)
[2019-03-15] MEDS ORDERED: amLODIPine 2.5 MG TAB PO SCH (09:00)
[2019-03-15] MEDS: DULoxetine HCL 30 MG CAPSULE.DR PO SCH ×2 (09:56→21:25)
[2019-03-15] MEDS: NICOTINE 14MG/24HR PATCH TRANSDERM SCH ×2 (09:56→10:09)
[2019-03-15] MEDS: LORazepam 1 MG TAB PO PRN ×2 (09:58→17:34)
[2019-03-15] MEDS: SYMBICORT 160-4.5 MCG INHALER INHALATION SCH ×2 (10:00→21:27)
[2019-03-15] MEDS ORDERED: NICOTINE POLACRILEX 2 MG GUM BUCCAL PRN (10:55)
[2019-03-15 12:52] LABS: Hemoglobin A1C 5.6 % (4.0-6.0)
--- NOTE | 2019-03-15 14:16 | P.HP ---
Psychiatric H&P - . H&P Date: 03/15/19 History & Physical: Allergies Allergy/AdvReac Type Severity Reaction Status Date / Time blueberry Allergy Rash/Hives Verified 03/14/19 19:37 nitroglycerin Allergy Swelling Verified 03/14/19 19:37 Vital Signs Temp 98.4 F 03/15/19 06:15 Pulse 102 H 03/15/19 10:11 Resp 16 03/15/19 10:11 BP 118/76 03/15/19 10:11 Pulse Ox 97 03/15/19 06:15 Intake & Output 03/14/19 03/15/19 03/15/19 18:59 06:59 18:59 Weight 68.039 kg Laboratory Last Values WBC 5.5 k/uL (3.8-10.6) 03/14/19 18:49 RBC 4.03 m/uL (4.30-5.90) L 03/14/19 18:49 Hgb 12.5 gm/dL (13.0-17.5) L 03/14/19 18:49 Hct 38.6 % (39.0-53.0) L 03/14/19 18:49 MCV 95.8 fL (80.0-100.0) 03/14/19 18:49 MCH 31.0 pg (25.0-35.0) 03/14/19 18:49 MCHC 32.4 g/dL (31.0-37.0) 03/14/19 18:49 RDW 14.2 % (11.5-15.5) 03/14/19 18:49 Plt Count 180 k/uL (150-450) 03/14/19 18:49 Neutrophils % 48 % 03/14/19 18:49 Lymphocytes % 38 % 03/14/19 18:49 Monocytes % 8 % 03/14/19 18:49 Eosinophils % 1 % 03/14/19 18:49 Basophils % 1 % 03/14/19 18:49 Neutrophils # 2.6 k/uL (1.3-7.7) 03/14/19 18:49 Lymphocytes # 2.1 k/uL (1.0-4.8) 03/14/19 18:49 Monocytes # 0.4 k/uL (0-1.0) 03/14/19 18:49 Eosinophils # 0.0 k/uL (0-0.7) 03/14/19 18:49 Basophils # 0.1 k/uL (0-0.2) 03/14/19 18:49 Sodium 136 mmol/L (137-145) L 03/14/19 18:49 Potassium 4.3 mmol/L (3.5-5.1) 03/14/19 18:49 Chloride 98 mmol/L (98-107) 03/14/19 18:49 Carbon Dioxide 27 mmol/L (22-30) 03/14/19 18:49 Anion Gap 11 mmol/L 03/14/19 18:49 BUN 11 mg/dL (9-20) 03/14/19 18:49 Creatinine 0.87 mg/dL (0.66-1.25) 03/14/19 18:49 Est GFR (CKD-EPI)AfAm >90 (>60 ml/min/1.73 sqM) 03/14/19 18:49 Est GFR (CKD-EPI)NonAf >90 (>60 ml/min/1.73 sqM) 03/14/19 18:49 Glucose 66 mg/dL (74-99) L 03/14/19 18:49 Calcium 9.5 mg/dL (8.4-10.2) 03/14/19 18:49 Magnesium 2.0 mg/dL (1.6-2.3) 03/14/19 18:49 Total Bilirubin 0.8 mg/dL (0.2-1.3) 03/14/19 18:49 AST 35 U/L (17-59) 03/14/19 18:49 ALT 19 U/L (4-49) 03/14/19 18:49 Alkaline Phosphatase 58 U/L (38-126) 03/14/19 18:49 Creatine Kinase 519 U/L (55-170) H 03/14/19 18:49 Troponin I <0.012 ng/mL (0.000-0.034) 03/14/19 18:49 Total Protein 8.0 g/dL (6.3-8.2) 03/14/19 18:49 Albumin 4.7 g/dL (3.5-5.0) 03/14/19 18:49 Triglycerides 37 mg/dL (<150) 03/15/19 07:57 Cholesterol 152 mg/dL (<200) 03/15/19 07:57 LDL Cholesterol, Calc 35 mg/dL (0-99) 03/15/19 07:57 HDL Cholesterol 110 mg/dL (40-60) H 03/15/19 07:57 TSH 0.112 mIU/L (0.465-4.680) L 03/15/19 07:57 Urine Opiates Screen Not Detected (NotDetected) 03/14/19 19:05 Ur Oxycodone Screen Not Detected (NotDetected) 03/14/19 19:05 Urine Methadone Screen Not Detected (NotDetected) 03/14/19 19:05 Ur Propoxyphene Screen Not Detected (NotDetected) 03/14/19 19:05 Ur Barbiturates Screen Not Detected (NotDetected) 03/14/19 19:05 U Tricyclic Antidepress Not Detected (NotDetected) 03/14/19 19:05 Ur Phencyclidine Scrn Not Detected (NotDetected) 03/14/19 19:05 Ur Amphetamines Screen Not Detected (NotDetected) 03/14/19 19:05 U Methamphetamines Scrn Not Detected (NotDetected) 03/14/19 19:05 U Benzodiazepines Scrn Not Detected (NotDetected) 03/14/19 19:05 Urine Cocaine Screen Detected (NotDetected) H 03/14/19 19:05 U Marijuana (THC) Screen Not Detected (NotDetected) 03/14/19 19:05 03/15/19 10:53 IDENTIFYING DATA: Patient is a 58-year-old -[place] male who currently lives in a house alone and collect Social Security disability HPI: Patient presented to the hospital yesterday with the complaints of depression and suicidal ideations for several days. In the ER patient admitted to drinking alcohol and also having used cocaine recently and having heart palpitations. EKG was ordered which showed no acute changes negative troponin and patient was medically cleared for admission to psychiatric floor. Patient was isolative this morning however was agreeable to speak with fha underwriter in the office. Patient had a soft tone to his voice and appeared to be disheveled in appearance. He states that his girlfriend got killed about 6 days ago in a car accident. He states that he has been feeling depressed since and having suicidal ideations frequently. He states he's been drinking alcohol and isolating himself in his house and also having poor sleep and poor appetite. Patient also states that he has been feeling irritable. Patient currently admits to having suicidal ideations however has no plan while on the unit. He states that he is hearing voices telling him to kill himself and everyone else. Patient admits to being off his medications for months. He states that he relapsed back on drugs about 1-1/2 months ago. At this time patient denies any visual hallucinations. Patient denies any flight of ideas racing thoughts and increased in goal directed behavior. Patient admits to using cocaine occasionally, marijuana occasionally, admitted 6 smoking cigarettes. He also admitted to drinking "cases of beer". Patient states that he's been to [facility] once in the past and is willing to go back. PAST PSYCHIATRIC HISTORY: Patient states that he has had several previous psychiatric admissions however cannot remember when. Patient has a history of depression and polysubstance abuse. He denied any outpatient psychiatric follow-up. Patient claims that he is attempted suicide about 6 times in the past. PMH: Coronary artery disease, chest pain/angina, HLP, [place], OA ALLERGIES: as per EMR CHEMICAL DEPENDENCY HISTORY: as per HPI FAMILY PSYCHIATRIC/SUBSTANCE USE HISTORY: He states that 2 of his brothers co mmitted suicide SOCIAL HISTORY:. Patient claims that he was born and raised in [facility] and completed up to the 12th grade. Patient states that he worked at [employer] and retired 15 years ago. Patient currently collects Social Security disability and lives in a house alone MENTAL STATUS EXAM: General Appearance: Patient appears to be thin and older than stated age is alert, guarded/evasive with poor hygiene and grooming. Poor eye contact. Behavior: Patient is calmly seated without any agitated behavior. Speech: Patient's speech is fluent and nonpressured. Soft and irritable tone. Mood/Affect: Patient reports their mood is depressed, affect is congruent and constricted. Suicidality/Homicidality: Admits to having suicidal ideations with no intent or plan. Perceptions: Patient denies any visual hallucinations. Patient admits to auditory hallucinations telling him to kill himself and others. Though content/process: Patient is concrete, guarded/evasive. Linear and goal- directed. Memory and concentration: AOX3, grossly intact for the purposes of this session. Can spell "WORLD" backwards Judgment and insight: poor STRENGTHS/WEAKNESSES: strength is that and is resilient, weaknesses the patient has poor insight and judgment and polysubstance abuse. INTELLECT: average IMPRESSIONS: Major depressive disorder, severe, recurrent with psychotic features Alcohol abuse Cannabis abuse Cocaine abuse Nicotine dependence PLAN: -Patient is admitted under voluntary status to MHU for stabilization of psychiatric symptoms and safety. Patient signed adult voluntary form and medication consent and is placed in patient's chart. -Medications : Will start patient on Zyprexa 7.5 mg daily at bedtime for mood stabilization/psychosis. Will also start patient on Cymbalta 30 mg twice a day for mood. -Ativan and Geodon PRN for agitation/aggression -Started thiamine, MVM for etoh use -Patient was counselled on substance abuse and desired to cut back on use. Patient is interested in going back to rehab upon discharge. -Patient was informed of the risks, benefits and side effects of the medication and patient verbally consented to taking the medications. Patient signed med consent form and was placed in chart. -Internal Medicine consult to perform medical evaluation and physical. Patient's TSH is decreased at this time, we'll await further recommendations from internal medicine. -NRT - nicotine patch -SW on board for discharge planning. Encourage patient to participate in groups to work on coping skills. 03/15/19 14:06
[2019-03-15] MEDS: ZIPRASIDONE 20 MG VIAL IM PRN (17:34)
--- NOTE | 2019-03-15 18:33 | P.MDCNMH ---
History of Present Illness H&P Date: 03/15/19 Chief Complaint: Medical management 58-year-old male with PMH of CAD post stent placement, presents the ED for depression and suicidal ideation. He has been admitted to mental health unit for mood stabilization. [facility] physicians has been consulted for medical management of this patient. Patient currently has no complaints. He denies any headaches, lower extremity edema, nausea or vomiting, fever or chills, cough, chest pain, shortness of breath, palpitations, changes in urination or bowel habits. He does report a decreased appetite but states that he is eating. He denies any dizziness, numbness/weakness/tingling of the extremities. Patient reports history of stent placement years ago that was done in [place]. Patient states that he takes aspirin on a regular basis. He denies any other medications. Review of Systems Pertinent positives and negatives as discussed in HPI, a complete review of systems was performed and all other systems are negative. Past Medical History Past Medical History: Coronary Artery Disease (CAD), Chest Pain / Angina, Hyperlipidemia, Myocardial Infarction (VT), Osteoarthritis (OA) Additional Past Medical History / Comment(s): Pt denies COPD, arthritis in back and bilateral knees, benign colon polyps Last Myocardial Infarction Date:: 2004 History of Any Multi-Drug Resistant Organisms: None Reported Past Surgical History: Bowel Resection, Heart Catheterization With Stent Additional Past Surgical History / Comment(s): Cardiac stents x 3, bowel surgery for pinpoint hole in bowel, L knee arthroscopy, colonoscopy/benign polypectomies. Past Anesthesia/Blood Transfusion Reactions: No Reported Reaction Date of Last Stent Placement:: 2013 Past Psychological History: Bipolar, Depression, Schizophrenia Smoking Status: Current every day smoker Past Alcohol Use History: Heavy Past Drug Use History: Marijuana - Past Family History Father Family Medical History: Respiratory Disorder Additional Family Medical History / Comment(s): Father at age 64 from Black lung disease Mother Family Medical History: Myocardial Infarction (VT) Additional Family Medical History / Comment(s): Mother of an VT at 78yrs old. Brother(s) Family Medical History: Myocardial Infarction (VT) Additional Family Medical History / Comment(s): Patient has 10 brothers and 2 from myocardial infarction and had history of alcoholism. Sister(s) Additional Family Medical History / Comment(s): He has 7 sisters that are alive with no major medical problems. He has one son that has and one daughter that is alive and okay. Medications and Allergies Home Medications Medication Instructions Recorded Confirmed Type Albuterol Sulfate [Ventolin HFA] 1 - 2 puff INHALATION RT-Q6H PRN 03/14/19 03/14/19 History Baclofen [Lioresal] 10 mg PO TID 03/14/19 03/14/19 History Budesonide/Formoterol Fumarate 2 puff INHALATION RT-BID 03/14/19 03/14/19 History [Symbicort 160-4.5 Mcg Inhaler] DULoxetine HCL [Cymbalta] 30 mg PO BID 03/14/19 03/14/19 History HYDROcodone/APAP 7.5-325MG [[place] 1 tab PO TID PRN 03/14/19 03/14/19 History 7.5-325] QUEtiapine [SEROquel] 400 mg PO HS 03/14/19 03/14/19 History Venlafaxine HCl [Effexor XR] 150 mg PO DAILY 03/14/19 03/14/19 History amLODIPine [Norvasc] 2.5 mg PO DAILY 03/14/19 03/14/19 History Allergies Allergy/AdvReac Type Severity Reaction Status Date / Time blueberry Allergy Rash/Hives Verified 03/14/19 19:37 nitroglycerin Allergy Swelling Verified 03/14/19 19:37 Physical Exam Vitals: Vital Signs Temp Pulse Resp BP Pulse Ox 03/15/19 10:11 102 H 16 118/76 03/15/19 06:15 98.4 F 72 16 95/51 97 General: [non toxic], [no distress], [appears at stated age] Derm: [warm], [dry] Head: [atraumatic], [normocephalic], [symmetric] Eyes: [EOMI], [no lid lag], [anicteric sclera] Mouth: [no lip lesion], [mucus membranes moist] Cardiovascular: [S1S2 reg], [tachycardia], [positive posterior tibial pulse bilateral], Lungs: [CTA bilateral], [no rhonchi, no rales] , [no accessory muscle use] Abdominal: [soft], [ nontender to palpation], [no guarding], [no appreciable organomegaly] Ext: [no gross muscle atrophy], [no edema], [no contractures] Neuro: [ CN II-XI grossly intact], [no focal neuro deficits] Psych: [Alert], [oriented], [appropriate affect] Cranial Nerve Examination - Cranial Nerves Cranial Nerve II- Optic: Intact Cranial Nerve III- Oculomotor: Intact Cranial Nerve IV- Trochlear: Intact Cranial Nerve V- Trigeminal: Intact Cranial Nerve - Abducens: Intact Cranial Nerve VII- Facial: Intact Cranial Nerve VIII- Auditory: Intact Cranial Nerve IX- Glossopharyngeal: Intact Cranial Nerve X- Vagus: Intact Cranial Nerve XI- Accessory: Intact Cranial Nerve XII- Hypoglossal: Intact Results CBC & Chem 7: 03/14/19 18:49 03/14/19 18:49 Labs: Abnormal Lab Results - Last 24 Hours (Table) 03/14/19 03/14/19 03/14/19 Range/Units 18:49 18:49 19:05 RBC 4.03 L (4.30-5.90) m/uL Hgb 12.5 L (13.0-17.5) gm/dL Hct 38.6 L (39.0-53.0) % Sodium 136 L (137-145) mmol/L Glucose 66 L (74-99) mg/dL Creatine Kinase 519 H (55-170) U/L HDL Cholesterol (40-60) mg/dL TSH (0.465-4.680) mIU/L Urine Cocaine Screen Detected H (NotDetected) 03/15/19 Range/Units 07:57 RBC (4.30-5.90) m/uL Hgb (13.0-17.5) gm/dL Hct (39.0-53.0) % Sodium (137-145) mmol/L Glucose (74-99) mg/dL Creatine Kinase (55-170) U/L HDL Cholesterol 110 H (40-60) mg/dL TSH 0.112 L (0.465-4.680) mIU/L Urine Cocaine Screen (NotDetected) Assessment and Plan Assessment: CAD post stent placement Elevated blood pressure Normocytic anemia Elevated CPK Low TSH Cocaine use Smoker Alcohol abuse Self-reports aspirin. Plans: Restart aspirin. Will start low-dose metoprolol, should also help tachycardia. Patient should be started on a statin but we will hold this due to elevated CPK. BP 141/86. Patient denies any history of hypertension but medication reconciliation shows that he was previously started on amlodipine. Plans: Discontinue amlodipine and start metoprolol given history of CAD and tachycardia. Monitor vitals, adjust medications as necessary. Hemoglobin 12.5. MCV 95.8. Plans: Follow B12, folate, iron studies. Continue to monitor. CPK 519. Renal function within normal limits. Unknown etiology. Plans: Encourage hydration by mouth. TSH 0.112. Plans: Follow FT4. UDS positive for cocaine. Plans: Ativan as needed for agitation. Patient advised to quit. Smokes 1-2 cigarettes daily. Plans: Does not want nicotine patch. States she he drinks 4-5 beers daily. Plans: [facility] protocol. Start thiamine. Ativan as needed for withdrawal symptoms.
[2019-03-15] MEDS ORDERED: OLANZapine ODT 5 MG TAB PO SCH (21:00)
[2019-03-15] MEDS ORDERED: MELATONIN 5 MG TABLET PO SCH (21:00)
[2019-03-16] MEDS: DULoxetine HCL 30 MG CAPSULE.DR PO SCH ×2 (10:31→21:27)
[2019-03-16] MEDS: THIAMINE 100 MG TAB PO SCH (10:31)
[2019-03-16] MEDS: ASPIRIN 81 MG PO SCH (10:31)
[2019-03-16] MEDS: LORazepam 1 MG TAB PO PRN (10:32)
[2019-03-16] MEDS: METOPROLOL SUCCINATE (ER) 25 MG TAB.ER.24H PO SCH (10:32)
[2019-03-16 10:39] LABS: T4, Free (Free Thyroxine) 1.29 ng/dL (0.78-2.19)
[2019-03-16] MEDS: SYMBICORT 160-4.5 MCG INHALER INHALATION SCH ×2 (10:51→21:26)
[2019-03-16 11:26] LABS: % Iron Saturation 38.64 (15.00-50.00)
--- NOTE | 2019-03-16 11:32 | P.PN ---
Progress Note - Text Progress Note Date: 03/16/19 Interval History: Patient was seen laying down in his bed and was initially hesitant but agreeable to seek the ad writer in the office. Patient continues to have a depressed/angry affect and continues to have a soft tone of voice. He remains guarded/evasive. He states that the voices are "about the same" and states that they are preventing him from going to groups. He states that she mainly isolates himself at this time in his room. The patient claims that his mood is continuing to be depressed. Patient has been taking his medications and is continuing to be agreeable to go to rehab after discharge. At this time patient denies anyhomical ideations, intent or plan however admits to having continuous suicidal ideations with no intent or plan. Patient denies any visual hallucinations and denies any paranoia or delusions. She does admit to continuing auditory hallucinations at this time. Patient denies any side effects from the medications and has been compliant with meds. Patient admits to poor energy and poor sleep last night sleeping "1-2 hours". Mental Status Exam: General Appearance: Patient appears to be thin and older than stated age is alert, guarded/evasive with marginal hygiene and grooming. Continues to have Poor eye contact. Behavior: Patient is calmly seated without any agitated behavior. Speech: Patient's speech is fluent and nonpressured. Soft tone. Mood/Affect: Patient reports their mood is depressed, affect is congruent and constricted. Suicidality/Homicidality: Admits to having suicidal ideations with no intent or plan. Denies any homicidal ideations at this time. Perceptions: Patient denies any visual hallucinations. Patient admits to ongoin g auditory hallucinations telling him to kill himself Though content/process: Patient is concrete, guarded/evasive. Linear and goal- directed. Memory and concentration: AOX3, grossly intact for the purposes of this session Judgment and insight: poor Assessment Major depressive disorder, severe, recurrent with psychotic features Alcohol abuse Cannabis abuse Cocaine abuse Nicotine dependence Plan: -Patient continues to meet criteria for inpatient psychiatric admission for symptom stabilization and safety. Patient has signed adult voluntary form and medication consent and was placed in patient's chart. -Medications: Will increase Zyprexa to 12.5 mg daily at bedtime for mood stabilization/psychosis. We'll continue with Cymbalta 30 mg twice a day for mood and will consider titrating up tomorrow if needed. Increased melatonin to 10 mg daily at bedtime for sleep. -When necessary Ativan and Geodon for agitation/aggression. -Continue with CIWA and Ativan when necessary for alcohol withdrawal. Thiamine, MVM, FA for etoh use. -Internal medicine following a long, started on metoprolol for heart rate and blood pressure and T4 free was normal. -NRT - nicotine patch -Encouraged patient to participate in groups to work on coping skills. -SW on board for discharge planning. Social work to meet with patient today to help patient with arranging for rehab for substance abuse treatment upon d ischarge.
[2019-03-16 11:34] LABS: Ferritin 38.2 ng/mL (22.0-322.0)
[2019-03-16] MEDS: FOLIC ACID 1 MG TAB PO SCH (12:29)
[2019-03-16] MEDS: MULTIVITAMINS, THERA 1 EACH TAB PO SCH (12:29)
[2019-03-16 12:32] LABS: Folate, Serum 19.8 ng/mL
[2019-03-16] MEDS ORDERED: OLANZapine ODT 5 MG TAB PO SCH (21:00)
[2019-03-16] MEDS: MELATONIN 5 MG TABLET PO SCH (21:28)
[2019-03-17] MEDS: MULTIVITAMINS, THERA 1 EACH TAB PO SCH (09:53)
[2019-03-17] MEDS: FOLIC ACID 1 MG TAB PO SCH (09:53)
[2019-03-17] MEDS: ASPIRIN 81 MG PO SCH (09:53)
[2019-03-17] MEDS: DULoxetine HCL 30 MG CAPSULE.DR PO SCH (09:53)
[2019-03-17] MEDS: THIAMINE 100 MG TAB PO SCH (09:53)
[2019-03-17] MEDS: METOPROLOL SUCCINATE (ER) 25 MG TAB.ER.24H PO SCH (10:15)
--- NOTE | 2019-03-17 10:18 | P.PN ---
Progress Note - Text Progress Note Date: 03/17/19 Interval History: Patient was seen laying down in his bed in the dark and was agreeable to speak with health technical writer in the office. Patient continues to have a depressed affect however appears to be mildly improving as patient was mildly more cooperative and talkative to health technical writer today. He states that he is continuing to hear voices however states that they have been better. He claims that he is continuing to isolate himself in his room however but was more open to the idea of attending groups today and states that he attended 2 groups yesterday. He continues to have a soft tone of voice. The patient claims that his mood is continuing to be depressed however states that his mood has been mildly improving. Patient has been taking his medications and is continuing to be agreeable to go to rehab after discharge. At this time patient denies any homical ideations, intent or plan however admits to having continuous suicidal ideations with no intent or plan which states that the ideations have gotten better. Patient denies any visual hallucinations and denies any paranoia or delusions. Patient denies any side effects from the medications and has been compliant with meds. Patient admits to poor energy and poor sleep last night sleeping "2-3 hours". Mental Status Exam: General Appearance: Patient appears to be thin and older than stated age is alert, guarded/evasive with marginal hygiene and grooming. Eye contact mildly improving. Behavior: Patient is calmly seated without any agitated behavior. More talkative today. Speech: Patient's speech is fluent and nonpressured. Soft tone. Mood/Affect: Patient reports their mood is depressed, mildly improving, affect is congruent and constricted. Suicidality/Homicidality: Admits to having suicidal ideations with no intent or plan. Denies any homicidal ideations at this time. Perceptions: Patient denies any visual hallucinations. Patient admits to ongoing auditory hallucinations telling him to kill himself which have been improving. Though content/process: Patient is concrete, guarded/evasive. Linear and goal- directed. Memory and concentration: AOX3, grossly intact for the purposes of this session Judgment and insight: poor, mildly improving. Assessment Major depressive disorder, severe, recurrent with psychotic features Alcohol abuse Cannabis abuse Cocaine abuse Nicotine dependence Plan: -Patient continues to meet criteria for inpatient psychiatric admission for symptom stabilization and safety. Patient has signed adult voluntary form and medication consent and was placed in patient's chart. -Medications: Will increase Zyprexa to 17.5 mg daily at bedtime for mood stabilization/psychosis. We'll increase Cymbalta 30 mg daily +60 mg daily at bedtime for mood. Continue with melatonin to 10 mg daily at bedtime for sleep. Will consider adding lithium as mood adjunct either tomorrow or day after. -When necessary Ativan and Geodon for agitation/aggression. -Continue with CIWA and Ativan when necessary for alcohol withdrawal. Thiamine, MVM, FA for etoh use. -Internal medicine following a long, started on metoprolol for heart rate and blood pressure and T4 free was normal. -NRT - nicotine patch -Encouraged patient to participate in groups to work on coping skills. -SW on board for discharge planning. transfer and line up worker to continue assisting patient with arranging for rehab for substance abuse treatment upon discharge.
[2019-03-17] MEDS: SYMBICORT 160-4.5 MCG INHALER INHALATION SCH ×2 (10:40→21:33)
[2019-03-17] MEDS: LORazepam 2 MG/ML INJ IM PRN (16:00)
[2019-03-17] MEDS: ZIPRASIDONE 20 MG VIAL IM PRN (16:00)
[2019-03-17] MEDS: DULoxetine HCL 60 MG CAPSULE.DR PO SCH (20:58)
[2019-03-17] MEDS: MELATONIN 5 MG TABLET PO SCH (20:58)
[2019-03-18] MEDS: ACETAMINOPHEN TAB 325 MG TAB PO PRN (06:21)
[2019-03-18] MEDS: MULTIVITAMINS, THERA 1 EACH TAB PO SCH (08:10)
[2019-03-18] MEDS: THIAMINE 100 MG TAB PO SCH (08:10)
[2019-03-18] MEDS: METOPROLOL SUCCINATE (ER) 25 MG TAB.ER.24H PO SCH (08:10)
[2019-03-18] MEDS: FOLIC ACID 1 MG TAB PO SCH (08:10)
[2019-03-18] MEDS: ASPIRIN 81 MG PO SCH (08:10)
[2019-03-18] MEDS: DULoxetine HCL 30 MG CAPSULE.DR PO SCH (08:10)
[2019-03-18] MEDS: LORazepam 1 MG TAB PO PRN (08:12)
[2019-03-18] MEDS ORDERED: OLANZapine ODT 5 MG TAB PO SCH (09:00)
--- NOTE | 2019-03-18 10:00 | P.PN ---
Progress Note - Text Progress Note Date: 03/18/19 Interval History: Patient was seen laying down in his bed in the dark and was agreeable to speak with sba underwriter in the office. Patient appears to be more communicative today with sba underwriter and has a less depressed affect. He states that he feels "a bit better today" overall. He states that the medications help him sleep more last night he slept around 5-6 hours. He states that he did have some increase in his voices last night which prevented him from going to sleep initially however he states that the voices have improved dramatically today. He also claims that he was feeling suicidal ideations last night however today he does not have them. The patient claims that his mood is continuing to be depressed however states that his mood has been mildly improving. Patient has been taking his medications and is continuing to be agreeable to go to rehab after discharge. He states that he has been trying to go to some of the groups however does not elaborate much on them. At this time patient denies any suicidal or homical ideations, intent or plan. Patient denies any visual hallucinations and denies any paranoia or delusions. Patient denies any side effects from the medications and has been compliant with meds. Mental Status Exam: General Appearance: Patient appears to be thin and older than stated age is alert, more directable and communicative today with marginal hygiene and grooming. Eye contact mildly improving. Behavior: Patient is calmly seated without any agitated behavior. More talkative today. Speech: Patient's speech is fluent and nonpressured. Soft tone. Mood/Affect: Patient reports their mood is depressed, mildly improving, affect is congruent Suicidality/Homicidality: Denies any current suicidal ideations with no intent or plan. Denies any homicidal ideations at this time. Perceptions: Patient denies any visual hallucinations. Patient admits to ongo ing auditory hallucinations telling him to kill himself which have been improving. Though content/process: Patient is concrete, guarded/evasive. Linear and goal- directed. Memory and concentration: AOX3, grossly intact for the purposes of this session Judgment and insight: poor, mildly improving. Assessment Major depressive disorder, severe, recurrent with psychotic features Alcohol abuse Cannabis abuse Cocaine abuse Nicotine dependence Plan: -Patient continues to meet criteria for inpatient psychiatric admission for symptom stabilization and safety. Patient has signed adult voluntary form and medication consent and was placed in patient's chart. -Medications: Will continue with Zyprexa to 15 mg daily at bedtime for mood stabilization/psychosis. We'll continue with Cymbalta 30 mg daily + 60 mg daily at bedtime for mood. Continue with melatonin to 10 mg daily at bedtime for sleep. -When necessary Ativan and Geodon for agitation/aggression. -Continue with CIWA and Ativan when necessary for alcohol withdrawal. Thiamine, MVM, FA for etoh use. -Internal medicine following a long, started on metoprolol for heart rate and blood pressure and T4 free was normal. -NRT - nicotine patch -Encouraged patient to participate in groups to work on coping skills. -SW on board for discharge planning. gang worker to continue assisting patient with arranging for rehab for substance abuse treatment upon discharge, patient to call [facility] for intake today.
[2019-03-18] MEDS: ZIPRASIDONE 20 MG VIAL IM PRN (17:44)
[2019-03-18] MEDS: LORazepam 2 MG/ML INJ IM PRN (17:46)
[2019-03-18] MEDS: OLANZapine ODT 5 MG TAB PO SCH (21:10)
[2019-03-18] MEDS: SYMBICORT 160-4.5 MCG INHALER INHALATION SCH (21:10)
[2019-03-18] MEDS: MELATONIN 5 MG TABLET PO SCH (21:10)
[2019-03-18] MEDS: DULoxetine HCL 60 MG CAPSULE.DR PO SCH (21:10)
[2019-03-19] MEDS: METOPROLOL SUCCINATE (ER) 25 MG TAB.ER.24H PO SCH (07:59)
[2019-03-19] MEDS: ASPIRIN 81 MG PO SCH (07:59)
[2019-03-19] MEDS: FOLIC ACID 1 MG TAB PO SCH (07:59)
[2019-03-19] MEDS: DULoxetine HCL 30 MG CAPSULE.DR PO SCH (07:59)
[2019-03-19] MEDS: THIAMINE 100 MG TAB PO SCH (08:00)
[2019-03-19] MEDS: MULTIVITAMINS, THERA 1 EACH TAB PO SCH (08:00)
[2019-03-19] MEDS: OLANZapine ODT 5 MG TAB PO SCH ×2 (11:47→20:40)
--- NOTE | 2019-03-19 11:51 | P.PN ---
Progress Note - Text Progress Note Date: 03/19/19 Clinical Problems: Major depressive disorder severe with psychotic features, alcohol abuse, cannabis abuse, cocaine abuse, tobacco use Interim history: I reviewed the medical record and interviewed patient. He complained of worsening "voices". He is markedly distressed and requested a medication for the "voices". According to the record he received 20 mg of Geodon and milligrams of Ativan IM yesterday for complaints of "voices" and anxiety. He infrequently attends therapeutic groups and activities. He spends most of his time in bed interacting in frequency with staff or peers. He slept 6 hours last night. Mental status exam: He presented as a markedly distressed elderly -Am er[place] male. He had difficulty remaining seated during the interview. He had a distressed facial expression. His affect was dysphoric. He complained of hallucinations but did not appear to responding to internal stimuli. Assessment: He remains seriously mentally ill with prominent mood and psychotic symptoms. Plan: Zydis 5 mg by mouth now and 5 mg daily in addition to the 15 mg at bedtime. Continue other medications as prescribed.
[2019-03-19] MEDS: LORazepam 2 MG/ML INJ IM PRN (13:08)
[2019-03-19] MEDS: DULoxetine HCL 60 MG CAPSULE.DR PO SCH (20:40)
[2019-03-19] MEDS: MELATONIN 5 MG TABLET PO SCH (20:40)
[2019-03-19] MEDS: SYMBICORT 160-4.5 MCG INHALER INHALATION SCH ×2 (22:11→22:12)
[2019-03-19] MEDS: LORazepam 1 MG TAB PO PRN (22:13)
[2019-03-20] MEDS: METOPROLOL SUCCINATE (ER) 25 MG TAB.ER.24H PO SCH (08:19)
[2019-03-20] MEDS: FOLIC ACID 1 MG TAB PO SCH (08:19)
[2019-03-20] MEDS: MULTIVITAMINS, THERA 1 EACH TAB PO SCH (08:19)
[2019-03-20] MEDS: THIAMINE 100 MG TAB PO SCH (08:20)
[2019-03-20] MEDS: OLANZapine ODT 5 MG TAB PO SCH ×2 (08:20→20:52)
[2019-03-20] MEDS: ASPIRIN 81 MG PO SCH (08:20)
[2019-03-20] MEDS: DULoxetine HCL 30 MG CAPSULE.DR PO SCH (08:20)
[2019-03-20] MEDS: LORazepam 1 MG TAB PO PRN ×2 (11:33→19:40)
[2019-03-20 12:06] VITALS: BMI 22.2
--- NOTE | 2019-03-20 16:11 | P.PN ---
Progress Note - Text Progress Note Date: 03/20/19 Clinical Problems: Major depressive disorder severe with psychotic features, alcohol abuse, cannabis abuse, cocaine abuse, tobacco use Interim history: I reviewed the medical record and interviewed the patient. He reported that the "voices" have lessened with the additional dose of olanzapine. There are still "president" and are causing less distress. However, he is unable to attend therapeutic groups or activities due to the severity of 5 "voices". Mental status exam: He was laying in bed. He made eye contact and attended to the interview. He had a distressed facial expression. He showed psychomotor retardation. Speech was not spontaneous and had decreased rate, rhythm and volume. His affect was depressed and not reactive. He denied suicidal ideation or wishes. Continues to feel hopeless, helpless and worthless. He did not express clear paranoid ideation or delusional thoughts. His thinking was concrete but his associations appeared coherent. He described auditory hallucinations involving "multiple voices". He was unwilling to discuss the nature of the voices. The voices, his behavior. Assessment: He has continued signs and symptoms of depression complicated by psychotic symptoms. He reports that his distress from the auditory hallucinations has decreased. Plan: Continue Zydis 5 mg daily and 15 mg at bedtime. Continue other medications as prescribed.
[2019-03-20] MEDS: SYMBICORT 160-4.5 MCG INHALER INHALATION SCH ×2 (17:11→20:51)
[2019-03-20] MEDS: MELATONIN 5 MG TABLET PO SCH (20:52)
[2019-03-20] MEDS: DULoxetine HCL 60 MG CAPSULE.DR PO SCH (20:52)
[2019-03-20] MEDS: ZIPRASIDONE 20 MG VIAL IM PRN (22:20)
[2019-03-20] MEDS ORDERED: WATER FOR INJECTION, STERILE 10 ML IV ONE (22:24)
[2019-03-21] MEDS: METOPROLOL SUCCINATE (ER) 25 MG TAB.ER.24H PO SCH (08:41)
[2019-03-21] MEDS: DULoxetine HCL 30 MG CAPSULE.DR PO SCH (08:41)
[2019-03-21] MEDS: ASPIRIN 81 MG PO SCH (08:41)
[2019-03-21] MEDS: FOLIC ACID 1 MG TAB PO SCH (08:41)
[2019-03-21] MEDS: OLANZapine ODT 5 MG TAB PO SCH ×2 (08:42→20:34)
[2019-03-21] MEDS: MULTIVITAMINS, THERA 1 EACH TAB PO SCH (08:42)
[2019-03-21] MEDS: THIAMINE 100 MG TAB PO SCH (08:42)
[2019-03-21] MEDS: LORazepam 1 MG TAB PO PRN ×2 (08:44→19:17)
[2019-03-21] MEDS ORDERED: OLANZapine 5 MG TAB PO PRN (10:13)
--- NOTE | 2019-03-21 11:09 | PN ---
PROGRESS NOTE DATE OF SERVICE: 03/21/2019 CHIEF COMPLAINT: The patient was depressed. He had suicide thoughts with command hallucinations telling him to kill himself. He had major grief issues with girlfriend dying in a car accident 6 days prior to admission. He had significant substance dependence issues. INTERVAL HISTORY: The patient continues to show significant distress relating to depressed mood as well as auditory hallucinations. He will wander about some, mostly he keeps to himself and does not interact much with others. He did attend one group yesterday though mostly does not attend groups at all. He said he slept better last night, which was a positive for him. Today he has been up. He comes out in the day area. He continues to present with a very depressed manner. He did receive a p.r.n. dose of Ativan 1 mg this morning and 1 mg yesterday afternoon. This is in spite of the fact that he has not been showing any significant withdrawal risks. Vital signs have been stable with vital signs this morning including blood pressure 104/61, pulse 75 and regular, temp 98, respirations 16, oxygen saturation 97. When I talked to the patient, he was able to talk about the grief he has had in regards to his girlfriend dying in a car accident. He noted that she was intoxicated and had significant substance use issues. She apparently was driving at a high rate of speed and crashed into an impediment. He indicated that he and his girlfriend did not live together and that he lived by himself. The patient notes that he has been doing a lot of walking. He says he walks quite a bit from one end of the unit to the other. He continues to report auditory hallucinations and says that in the last day or so, they seem to be worse. He tolerates his psychotropic medications. MENTAL STATUS: Patient sat with poor eye contact. Psychomotor activity was slowed. Speech was monotone and soft. At times, it was hard to hear what he was saying. He responded with short answers when he talked about his girlfriend. He was able to describe a short narrative appropriately. His affect was flat. His mood depressed. He was significantly distressed. He continues to report auditory hallucinations. Cognition was clear. ASSESSMENT: I will continue the current diagnosis. I would note that he meets criteria for a polysubstance dependence including alcohol, marijuana and cocaine. He has not been showing signs of risk for serious alcohol withdrawal issues. He is out of the time frame for risk for development of delirium tremens. I advised the patient to avoid use of Ativan because of his substance dependence issues. I discussed withdrawal issues including time course of withdrawal, expectations and ways that he can help manage early withdrawal. I will add Zyprexa 5 mg b.i.d. p.r.n., which I indicated to the patient he could use if he was feeling anxious or distressed. He continues to show significant symptoms of depression with psychotic features. We will continue to focus on stabilization and discharge planning. SYBIL / OLIVIA: [id number] /
[2019-03-21] MEDS: SYMBICORT 160-4.5 MCG INHALER INHALATION SCH ×2 (16:38→20:36)
[2019-03-21] MEDS: MELATONIN 5 MG TABLET PO SCH (20:34)
[2019-03-21] MEDS: DULoxetine HCL 60 MG CAPSULE.DR PO SCH (20:34)
[2019-03-22] MEDS: OLANZapine ODT 5 MG TAB PO SCH ×2 (09:30→20:55)
[2019-03-22] MEDS: ASPIRIN 81 MG PO SCH (09:30)
[2019-03-22] MEDS: MULTIVITAMINS, THERA 1 EACH TAB PO SCH (09:31)
[2019-03-22] MEDS: METOPROLOL SUCCINATE (ER) 25 MG TAB.ER.24H PO SCH (09:31)
[2019-03-22] MEDS: FOLIC ACID 1 MG TAB PO SCH (09:31)
[2019-03-22] MEDS: THIAMINE 100 MG TAB PO SCH (09:31)
[2019-03-22] MEDS: DULoxetine HCL 30 MG CAPSULE.DR PO SCH (09:31)
--- NOTE | 2019-03-22 10:22 | PN ---
PROGRESS NOTE DATE OF SERVICE: 03/22/2019 CHIEF COMPLAINT: The patient was depressed. He had suicide thoughts with command hallucinations telling him to kill himself. He had major grief issues with girlfriend dying in a car accident six days prior to admission. He had significant substance dependence issues. INTERVAL HISTORY: The patient has been doing fair. He had a quiet evening last night. He has been attending groups. He says that the voices he has been hearing seem to fluctuate. He said on Thursday they were quieter. When I talked to him yesterday, he had some periods prior to that where the voices got more intense. Yesterday he said he did better with them until the evening time and then they got worse again. He says that the voices seem to quiet down later in the evening and he slept fairly well last night. Today he has been up. He comes out in the day area. He says his mood is somewhat improved. He has a better outlook. He said the voices are quieter today. He says that he has been working to attend groups so that he can address the issues that he has been struggling with. He feels that he is getting good benefit from groups. He feels that overall he is making progress. He tolerates his psychotropic medications. MENTAL STATUS: Patient sat without restlessness. Eye contact was fairly good. He answered questions with brief responses. His thoughts were clear. It was noteworthy that he was a little more responsive today. He gave more direct answers. He talked in a clear voice that was a little stronger compared to yesterday. His affect was somewhat brighter. He smiled some. His mood was improved. He showed more emotional response than he did yesterday when he seemed to be quite closed off. He was less distressed than yesterday. He continues to report some struggles with auditory hallucinations that fluctuate. Cognition is clear. ASSESSMENT: I will continue the current diagnosis and treatment plan. I reviewed issues with the patient regarding substance withdrawal issues. We talked about grief issues as well. I reviewed his medications. I discussed potential side effects including metabolics. I encouraged the patient to avoid any p.r.n. use of Ativan and reassured him that he does have p.r.n. Zyprexa available. We discussed the risks for his using Ativan relating to his long-term substance abuse issues. He has not been showing signs of significant withdrawal. Vital signs are stable. We will focus on stabilization and discharge planning. MMODL / IJN: [id number] /
[2019-03-22] MEDS: SYMBICORT 160-4.5 MCG INHALER INHALATION SCH ×2 (11:10→18:49)
[2019-03-22] MEDS: ZIPRASIDONE 20 MG VIAL IM PRN (19:01)
[2019-03-22] MEDS: MELATONIN 5 MG TABLET PO SCH (20:55)
[2019-03-22] MEDS: DULoxetine HCL 60 MG CAPSULE.DR PO SCH (20:55)
[2019-03-23] MEDS: THIAMINE 100 MG TAB PO SCH (08:33)
[2019-03-23] MEDS: METOPROLOL SUCCINATE (ER) 25 MG TAB.ER.24H PO SCH (08:33)
[2019-03-23] MEDS: MULTIVITAMINS, THERA 1 EACH TAB PO SCH (08:33)
[2019-03-23] MEDS: FOLIC ACID 1 MG TAB PO SCH (08:33)
[2019-03-23] MEDS: OLANZapine ODT 5 MG TAB PO SCH ×2 (08:33→20:53)
[2019-03-23] MEDS: ASPIRIN 81 MG PO SCH (08:33)
[2019-03-23] MEDS: DULoxetine HCL 30 MG CAPSULE.DR PO SCH (08:33)
--- NOTE | 2019-03-23 11:23 | P.PN ---
Progress Note - Text Progress Note Date: 03/23/19 Interval History: Patient was seen wandering the hallways and was agreeable to speak with ghost writer in the office. Patient appears to be more communicative today and directable. Patient states that she just came back from court and states that "they threw it out" with regards to his demand for hearing as patient states that he is here voluntarily and he is taking his medications. Patient appears to have an improved affect and improved eye contact is well. He states that he slept better last night and states that the medications he feels are helping him with his mood. Patient states that today he does not feel suicidal and is more optimistic about the future and wanting to go to rehab. He states that he has been trying to go to some of the groups during the day. At this time patient denies any suicidal or homical ideations, intent or plan. Patient denies any visual hallucinations and denies any paranoia or delusions. Patient denies any side effects from the medications and has been compliant with meds. Mental Status Exam: General Appearance: Patient appears to be thin and older than stated age is alert, more directable and communicative today with marginal hygiene and grooming. Eye contact improving. Behavior: Patient is calmly seated without any agitated behavior. More talkative Speech: Patient's speech is fluent and nonpressured. Mood/Affect: Patient reports their mood is improving, affect is congruent Suicidality/Homicidality: Denies any current suicidal ideations with no intent or plan. Denies any homicidal ideations at this time. Perceptions: Patient denies any visual hallucinations or any auditory hallucinations. Though content/process: Patient is concrete. Linear and goal-directed. Memory and concentration: AOX3, grossly intact for the purposes of this session Judgment and insight: mildly improving. Assessment Major depressive disorder, severe, recurrent with psychotic features Alcohol abuse Cannabis abuse Cocaine abuse Nicotine dependence Plan: -Patient continues to meet criteria for inpatient psychiatric admission for symptom stabilization and safety. Patient has signed adult voluntary form and medication consent and was placed in patient's chart. -Medications: Will continue with Zyprexa to 15 mg daily at bedtime for mood stabilization/psychosis. We'll continue with Cymbalta 30 mg daily + 60 mg daily at bedtime for mood. Continue with melatonin to 10 mg daily at bedtime for sleep. -When necessary Ativan and Geodon for agitation/aggression. -Thiamine, MVM, FA for etoh use. -Internal medicine following a long, patient is on metoprolol for heart rate and blood pressure and T4 free was normal. -NRT - nicotine patch -Encouraged patient to participate in groups to work on coping skills. -SW on board for discharge planning. spring floor service worker helping to arrange for rehab for substance abuse treatment upon discharge at [facility]. Packet sent to [facility] for review. Patient will need to be discharged directly to [facility] from the inpatient unit due to high risk of relapse.
[2019-03-23] MEDS: SYMBICORT 160-4.5 MCG INHALER INHALATION SCH ×2 (15:52→20:52)
[2019-03-23] MEDS: MELATONIN 5 MG TABLET PO SCH (20:52)
[2019-03-23] MEDS: DULoxetine HCL 60 MG CAPSULE.DR PO SCH (20:52)
[2019-03-23] MEDS: ACETAMINOPHEN TAB 325 MG TAB PO PRN (21:42)
[2019-03-23] MEDS: MAGNESIUM HYDROXIDE 2,400 MG/10 ML CUP PO PRN (21:43)
[2019-03-24] MEDS: METOPROLOL SUCCINATE (ER) 25 MG TAB.ER.24H PO SCH (08:00)
[2019-03-24] MEDS: DULoxetine HCL 30 MG CAPSULE.DR PO SCH (08:02)
[2019-03-24] MEDS: FOLIC ACID 1 MG TAB PO SCH (08:02)
[2019-03-24] MEDS: ASPIRIN 81 MG PO SCH (08:02)
[2019-03-24] MEDS: MULTIVITAMINS, THERA 1 EACH TAB PO SCH (08:02)
[2019-03-24] MEDS: THIAMINE 100 MG TAB PO SCH (08:02)
[2019-03-24] MEDS: OLANZapine ODT 5 MG TAB PO SCH ×2 (08:02→20:48)
--- NOTE | 2019-03-24 09:37 | P.PN ---
Progress Note - Text Progress Note Date: 03/24/19 Interval History: Patient was seen wandering the hallways after breakfast and was agreeable to s peak with inspector automatic typewriter in the office. Patient appears to be more communicative today and directable today. Patient states that she had a overnight complaint of the nursing staff coming into his room and demanding that he leave his room at 3 AM. Patient states that she was compliant with the orders however was upset that he was not asked politely. Patient appears to have an improved affect and improved eye contact is well. He states that the medication is helping him stay "calmer" and also states that his mood has been improving. He did mention that he feels mildly groggy during the day and asked if he can just take the Zyprexa at nighttime. Patient states that today he does not feel suicidal and is more optimistic about the future and wanting to go to rehab and asked when he will be able to go. He states that he has been trying to go to some of the groups during the day to participate. At this time patient denies any suicidal or homical ideations, intent or plan. Patient denies any visual hallucinations and denies any paranoia or delusions. Patient denies any side effects from the medications and has been compliant with meds. Mental Status Exam: General Appearance: Patient appears to be thin and older than stated age is alert, more directable and communicative today with marginal hygiene and grooming. Eye contact improving. Behavior: Patient is calmly seated without any agitated behavior. More talkative Speech: Patient's speech is fluent and nonpressured. Mood/Affect: Patient reports their mood is improving, affect is congruent Suicidality/Homicidality: Denies any current suicidal ideations with no intent or plan. Denies any homicidal ideations at this time. Perceptions: Patient denies any visual hallucinations or any auditory hallucinations. Though content/process: Patient is concrete. Linear and goal-directed. Memory and concentration: AOX3, grossly intact for the purposes of this session Judgment and insight: mildly improving. Assessment Major depressive disorder, severe, recurrent with psychotic features Alcohol abuse Cannabis abuse Cocaine abuse Nicotine dependence Plan: -Patient continues to meet criteria for inpatient psychiatric admission for sy mptom stabilization and safety. Patient has signed adult voluntary form and medication consent and was placed in patient's chart. -Medications: Will continue with Zyprexa to 15 mg at bedtime for mood stabilization/psychosis however we will discontinue the morning dose of Zyprexa. We'll continue with Cymbalta 30 mg daily + 60 mg daily at bedtime for mood. Continue with melatonin to 10 mg daily at bedtime for sleep. -When necessary Ativan and Geodon for agitation/aggression. -Thiamine, MVM, FA for etoh use. -Internal medicine following a long, patient is on metoprolol for heart rate and blood pressure and T4 free was normal. -NRT - nicotine patch -Encouraged patient to participate in groups to work on coping skills. -SW on board for discharge planning. dry dip worker waiting to hear back from [facility] for intake date. Patient will need to be discharged directly to [facility] from the inpatient unit due to high risk of relapse.
[2019-03-24] MEDS: SYMBICORT 160-4.5 MCG INHALER INHALATION SCH (20:47)
[2019-03-24] MEDS: MELATONIN 5 MG TABLET PO SCH (20:48)
[2019-03-24] MEDS: DULoxetine HCL 60 MG CAPSULE.DR PO SCH (20:48)
[2019-03-25] MEDS: ASPIRIN 81 MG PO SCH (08:49)
[2019-03-25] MEDS: FOLIC ACID 1 MG TAB PO SCH (08:49)
[2019-03-25] MEDS: DULoxetine HCL 30 MG CAPSULE.DR PO SCH (08:49)
[2019-03-25] MEDS: METOPROLOL SUCCINATE (ER) 25 MG TAB.ER.24H PO SCH (08:50)
[2019-03-25] MEDS: MULTIVITAMINS, THERA 1 EACH TAB PO SCH (08:50)
[2019-03-25] MEDS: THIAMINE 100 MG TAB PO SCH (08:50)
--- NOTE | 2019-03-25 09:09 | P.PN ---
Progress Note - Text Progress Note Date: 03/25/19 Interval History: Patient was seen wandering the hallways after breakfast and was agreeable to s peak with chief underwriter in the office. Patient appears to have a brighter affect this morning and spoke more positively about his medications and about his plans to go to rehab. She states that he heard back from [facility] and they would be willing to take him tomorrow morning for an intake. Patient states that he is feeling positive about abstaining from substance use and states that he feels "much better". He denies any depression at this time states that his anxiety is improved. Patient states that he had no overnight complaints and states that he slept well. Patient states that today he does not feel suicidal once again and is more future oriented. He states that he has been trying to go to some of the groups during the day to participate. At this time patient denies any suicidal or homical ideations, intent or plan. Patient denies any visual hallucinations and denies any paranoia or delusions. Patient denies any side effects from the medications and has been compliant with meds. Mental Status Exam: General Appearance: Patient appears to be thin and older than stated age is alert, more directable and communicative today with marginal hygiene and grooming. Eye contact improving. Behavior: Patient is calmly seated without any agitated behavior. Speech: Patient's speech is fluent and nonpressured. Mood/Affect: Patient reports their mood is improving, affect is congruent Suicidality/Homicidality: Denies any current suicidal ideations with no intent or plan. Denies any homicidal ideations at this time. Perceptions: Patient denies any visual hallucinations or any auditory hallucinations. Though content/process: Patient is concrete. Linear and goal-directed. Memory and concentration: AOX3, grossly intact for the purposes of this session Judgment and insight: mildly improving. Assessment Major depressive disorder, severe, recurrent with psychotic features Alcohol abuse Cannabis abuse Cocaine abuse Nicotine dependence Plan: -Patient continues to meet criteria for inpatient psychiatric admission for symptom stabilization and safety. Patient has signed adult voluntary form and medication consent and was placed in patient's chart. -Medications: Will continue with Zyprexa to 15 mg at bedtime for mood stabilization/psychosis. We'll continue with Cymbalta 30 mg daily + 60 mg daily at bedtime for mood. Continue with melatonin to 10 mg daily at bedtime for sleep. -When necessary Ativan and Geodon for agitation/aggression. -Thiamine, MVM, FA for etoh use. -Internal medicine following a long, patient is on metoprolol for heart rate and blood pressure and T4 free was normal. -NRT - nicotine patch -Encouraged patient to participate in groups to work on coping skills. -SW on board for discharge planning. Patient will need to be discharged directly to [facility] from the inpatient unit due to high risk of relapse. Patient has apparently been accepted to [facility] with an intake date set for tomorrow morning. Patient will be discharged tomorrow morning.
[2019-03-25] MEDS: SYMBICORT 160-4.5 MCG INHALER INHALATION SCH (19:08)
[2019-03-25] MEDS: ACETAMINOPHEN TAB 325 MG TAB PO PRN (19:09)
[2019-03-25] MEDS: OLANZapine ODT 5 MG TAB PO SCH (20:50)
[2019-03-25] MEDS: MELATONIN 5 MG TABLET PO SCH (20:50)
[2019-03-25] MEDS: DULoxetine HCL 60 MG CAPSULE.DR PO SCH (20:50)
[2019-03-26] MEDS: MULTIVITAMINS, THERA 1 EACH TAB PO SCH (09:41)
[2019-03-26] MEDS: ASPIRIN 81 MG PO SCH (09:41)
[2019-03-26] MEDS: DULoxetine HCL 30 MG CAPSULE.DR PO SCH (09:41)
[2019-03-26] MEDS: METOPROLOL SUCCINATE (ER) 25 MG TAB.ER.24H PO SCH (09:41)
[2019-03-26] MEDS: FOLIC ACID 1 MG TAB PO SCH (09:41)
[2019-03-26] MEDS: THIAMINE 100 MG TAB PO SCH (09:42)
--- NOTE | 2019-03-26 10:52 | P.PN ---
Progress Note - Text Progress Note Date: 03/26/19 Interval History: Patient was seen taking part in group and was agreeable to speak with appeals writer in the office. Patient appears to have a brighter affect this morning and was more talkative to appeals writer. Patient states that he will likely be going to [facility] on Thursday and will be able to be picked up at that time. He is more future oriented and claims that his depression and anxiety even improving. Patient states that he had no overnight complaints and states that he slept well. Patient states that today he does not feel suicidal once again. He states that he has been trying to go to some of the groups during the day to participate. At this time patient denies any suicidal or homical ideations, intent or plan. Patient denies any visual hallucinations and denies any paranoia or delusions. Patient denies any side effects from the medications and has been compliant with meds. Mental Status Exam: General Appearance: Patient appears to be thin and older than stated age is alert, directable. Improving hygiene and grooming. Eye contact improving. Behavior: Patient is calmly seated without any agitated behavior. Speech: Patient's speech is fluent and nonpressured. Mood/Affect: Patient reports their mood is improving, affect is congruent Suicidality/Homicidality: Denies any current suicidal ideations with no intent or plan. Denies any homicidal ideations at this time. Perceptions: Patient denies any visual hallucinations or any auditory hallucinations. Though content/process: Patient is concrete. Linear and goal-directed. Memory and concentration: AOX3, grossly intact for the purposes of this session Judgment and insight: mildly improving. Assessment Major depressive disorder, severe, recurrent with psychotic features Alcohol abuse Cannabis abuse Cocaine abuse Nicotine dependence Plan: -Patient continues to meet criteria for inpatient psychiatric admission for sy mptom stabilization and safety. Patient has signed adult voluntary form and medication consent and was placed in patient's chart. -Medications: Will continue with Zyprexa to 15 mg at bedtime for mood stabilization/psychosis. We'll continue with Cymbalta 30 mg daily + 60 mg daily at bedtime for mood. Continue with melatonin to 10 mg daily at bedtime for sleep. -When necessary Ativan and Geodon for agitation/aggression. -Thiamine, MVM, FA for etoh use. -Internal medicine following a long, patient is on metoprolol for heart rate and blood pressure and T4 free was normal. -NRT - nicotine patch -Encouraged patient to participate in groups to work on coping skills. - on board for discharge planning. Patient will need to be discharged directly to [facility] from the inpatient unit due to high risk of relapse. Patient has an intake date at [facility] on Thursday and will go directly from the inpatient unit to his intake appointment.
[2019-03-26] MEDS: ACETAMINOPHEN TAB 325 MG TAB PO PRN ×2 (11:13→20:48)
[2019-03-26] MEDS: SYMBICORT 160-4.5 MCG INHALER INHALATION SCH (20:48)
[2019-03-26] MEDS: DULoxetine HCL 60 MG CAPSULE.DR PO SCH (20:50)
[2019-03-26] MEDS: MELATONIN 5 MG TABLET PO SCH (20:50)
[2019-03-26] MEDS: OLANZapine ODT 5 MG TAB PO SCH (20:50)
[2019-03-27] MEDS: ASPIRIN 81 MG PO SCH (08:20)
[2019-03-27] MEDS: METOPROLOL SUCCINATE (ER) 25 MG TAB.ER.24H PO SCH (08:21)
[2019-03-27] MEDS: MULTIVITAMINS, THERA 1 EACH TAB PO SCH (08:21)
[2019-03-27] MEDS: THIAMINE 100 MG TAB PO SCH (08:21)
[2019-03-27] MEDS: FOLIC ACID 1 MG TAB PO SCH (08:21)
[2019-03-27] MEDS: DULoxetine HCL 30 MG CAPSULE.DR PO SCH (08:21)
--- NOTE | 2019-03-27 11:57 | P.PN ---
Progress Note - Text Progress Note Date: 03/27/19 Interval History: Patient was seen walking always and was agreeable to speak with display card writer in the office. Patient appears to have a brighter affect this morning. He was more talkative to display card writer. Patient denied any overnight complaints and states that his medications and his sleep are doing much better. He claims that his mood has been improving drastically and is more future oriented. Patient states that today he does not feel suicidal once again. He states that he has been trying to go to some of the groups during the day to participate. At this time patient denies any suicidal or homical ideations, intent or plan. Patient denies any visual hallucinations and denies any paranoia or delusions. Patient denies any side effects from the medications and has been compliant with meds. Mental Status Exam: General Appearance: Patient appears to be thin and older than stated age is alert, directable. Improving hygiene and grooming. Eye contact improving. Behavior: Patient is calmly seated without any agitated behavior. Speech: Patient's speech is fluent and nonpressured. Mood/Affect: Patient reports their mood is improving mildly, affect is congruent Suicidality/Homicidality: Denies any current suicidal ideations with no intent or plan. Denies any homicidal ideations at this time. Perceptions: Patient denies any visual hallucinations or any auditory hallucinations. Though content/process: Patient is concrete. Linear and goal-directed. More future oriented. Memory and concentration: AOX3, grossly intact for the purposes of this session Judgment and insight: mildly improving. Assessment Major depressive disorder, severe, recurrent with psychotic features Alcohol abuse Cannabis abuse Cocaine abuse Nicotine dependence Plan: -Patient continues to meet criteria for inpatient psychiatric admission for symptom stabilization and safety. Patient has signed adult voluntary form and medication consent and was placed in patient's chart. -Medications: Will continue with Zyprexa to 15 mg at bedtime for mood stabilization/psychosis. We'll continue with Cymbalta 30 mg daily + 60 mg daily at bedtime for mood. Continue with melatonin to 10 mg daily at bedtime for sleep. -When necessary Ativan and Geodon for agitation/aggression. -Thiamine, MVM, FA for etoh use. -Internal medicine following a long, patient is on metoprolol for heart rate and blood pressure and T4 free was normal. -NRT - nicotine patch -Encouraged patient to participate in groups to work on coping skills. -SW on board for discharge planning. Patient will need to be discharged directly to [facility] from the inpatient unit due to high risk of relapse. Patient has an intake date at [facility] on Thursday and will go directly from the inpatient unit to his intake appointment.
[2019-03-27] MEDS: SYMBICORT 160-4.5 MCG INHALER INHALATION SCH (21:00)
[2019-03-27] MEDS: OLANZapine ODT 5 MG TAB PO SCH (21:01)
[2019-03-27] MEDS: MELATONIN 5 MG TABLET PO SCH (21:01)
[2019-03-27] MEDS: DULoxetine HCL 60 MG CAPSULE.DR PO SCH (21:01)
[2019-03-27] MEDS: ACETAMINOPHEN TAB 325 MG TAB PO PRN (21:01)
[2019-03-28] MEDS: FOLIC ACID 1 MG TAB PO SCH (08:33)
[2019-03-28] MEDS: ASPIRIN 81 MG PO SCH (08:33)
[2019-03-28] MEDS: MULTIVITAMINS, THERA 1 EACH TAB PO SCH (08:33)
[2019-03-28] MEDS: THIAMINE 100 MG TAB PO SCH (08:33)
[2019-03-28] MEDS: METOPROLOL SUCCINATE (ER) 25 MG TAB.ER.24H PO SCH (08:34)
[2019-03-28] MEDS: DULoxetine HCL 30 MG CAPSULE.DR PO SCH (08:34)
--- NOTE | 2019-03-28 12:07 | P.PN ---
Progress Note - Text Progress Note Date: 03/28/19 Interval History: Patient was seen walking the hallways and was agreeable to speak with policy writer typist in the office. Patient appears to have an improved affect this morning and continues to be more future oriented and positive about his plan to go to rehab. He states that she will be getting a ride tomorrow morning to go and is excited to be discharged. He offered no overnight complaints and states that he's been sleeping well. He claims that his mood has been improving and denies any depression at this time. Patient states that today he does not feel suicidal or homicidal. He states that he has been trying to go to some of the groups during the day to participate and spoke about learning coping skills. At this time patient denies any suicidal or homical ideations, intent or plan. Patient denies any visual hallucinations and denies any paranoia or delusions. Patient denies any side effects from the medications and has been compliant with meds. Mental Status Exam: General Appearance: Patient appears to be thin and older than stated age is alert, directable. Improving hygiene and grooming. Eye contact improving. Behavior: Patient is calmly seated without any agitated behavior. Speech: Patient's speech is fluent and nonpressured. Mood/Affect: Patient reports their mood is improving, affect is congruent and affect appears brighter. Suicidality/Homicidality: Denies any current suicidal ideations with no intent or plan. Denies any homicidal ideations at this time. Perceptions: Patient denies any visual hallucinations or any auditory hallucinations. Though content/process: Patient is concrete. Linear and goal-directed. More future oriented. Memory and concentration: AOX3, grossly intact for the purposes of this session Judgment and insight: mildly improving. Assessment Major depressive disorder, severe, recurrent with psychotic features Alcohol abuse Cannabis abuse Cocaine abuse Nicotine dependence Plan: -Patient continues to meet criteria for inpatient psychiatric admission for symptom stabilization and safety. Patient has signed adult voluntary form and medication consent and was placed in patient's chart. -Medications: Will continue with Zyprexa to 15 mg at bedtime for mood stabilization/psychosis. We'll continue with Cymbalta 30 mg daily + 60 mg daily at bedtime for mood. Continue with melatonin to 10 mg daily at bedtime for sleep. -When necessary Ativan and Geodon for agitation/aggression. -Thiamine, MVM, FA for etoh use. -Internal medicine following a long, patient is on metoprolol for heart rate and blood pressure and T4 free was normal. -NRT - nicotine patch -Encouraged patient to participate in groups to work on coping skills. -SW on board for discharge planning. Patient will need to be discharged directly to [facility] from the inpatient unit due to high risk of relapse. Patient has an intake date at [facility] tomorrow and will go directly from the inpatient unit to his intake appointment. Patient to be picked up early tomorrow morning.
[2019-03-28] MEDS: SYMBICORT 160-4.5 MCG INHALER INHALATION SCH ×6 (13:23→20:49)
[2019-03-28] MEDS: ACETAMINOPHEN TAB 325 MG TAB PO PRN (16:38)
[2019-03-28] MEDS: MELATONIN 5 MG TABLET PO SCH (20:48)
[2019-03-28] MEDS: DULoxetine HCL 60 MG CAPSULE.DR PO SCH (20:48)
[2019-03-28] MEDS: OLANZapine ODT 5 MG TAB PO SCH (20:48)
[2019-03-29 06:34] VITALS: TEMP 98
[2019-03-29] MEDS: THIAMINE 100 MG TAB PO SCH (08:39)
[2019-03-29] MEDS: DULoxetine HCL 30 MG CAPSULE.DR PO SCH (08:39)
[2019-03-29] MEDS: ASPIRIN 81 MG PO SCH (08:39)
[2019-03-29] MEDS: MULTIVITAMINS, THERA 1 EACH TAB PO SCH (08:39)
[2019-03-29] MEDS: FOLIC ACID 1 MG TAB PO SCH (08:40)
[2019-03-29] MEDS: METOPROLOL SUCCINATE (ER) 25 MG TAB.ER.24H PO SCH (08:40)
[2019-03-29] MEDS: SYMBICORT 160-4.5 MCG INHALER INHALATION SCH (08:41)
[2019-03-29] MEDS: MAGNESIUM HYDROXIDE 2,400 MG/10 ML CUP PO PRN (08:48)
[2019-03-29 09:42] VITALS: BP 114/71; PULSE 109; RESP 16
--- NOTE | 2019-03-29 09:56 | P.DS ---
Providers Date of admission: 03/14/19 21:47 Expected date of discharge: 03/29/19 Attending physician: Desmond Reynaga MD Consults: 03/14/19 22:03 Consult Physician Routine Consulting Provider: [facility] Consult Reason/Comments: H&P and medical Do you want consulting provider notified?: Yes Primary care physician: Physician Nonstaff - Discharge Diagnosis(es) (1) Major depress, sev w/ psych Current Visit: Yes Status: Acute Priority: High (2) Alcohol abuse Current Visit: Yes Status: Acute Priority: Medium (3) Cannabis abuse Current Visit: Yes Status: Acute Priority: Medium (4) Cocaine abuse Current Visit: Yes Status: Acute Priority: Medium (5) Nicotine dependence Current Visit: Yes Status: Acute Priority: Low Hospital Course: Admission HPI: Patient is a 58-year-old -[place] male who currently lives in a house alone and collect Social Security disability. Patient presented to the hospital yesterday with the complaints of depression and suicidal ideations for several days. In the ER patient admitted to drinking alcohol and also having used cocaine recently and having heart palpitations. EKG was ordered which showed no acute changes negative troponin and patient was medically cleared for admission to psychiatric floor. Patient was isolative this morning however was agreeable to speak with teletypewriter operator in the office. Patient had a soft tone to his voice and appeared to be disheveled in appearance. He states that his girlfriend got killed about 6 days ago in a car accident. He states that he has been feeling depressed since and having suicidal ideations frequently. He states he's been drinking alcohol and isolating himself in his house and also having poor sleep and poor appetite. Patient also states that he has been feeling irritable. Patient currently admits to having suicidal ideations however has no plan while on the unit. He states that he is hearing voices telling him to kill himself and everyone else. Patient admits to being off his medications for months. He states that he relapsed back on drugs about 1-1/2 months ago. At this time patient denies any visual hallucinations. Patient denies any flight of ideas racing thoughts and increased in goal directed behavior. Patient admits to using cocaine occasionally, marijuana occasionally, admitted 6 smoking cigarettes. He also admitted to drinking "cases of beer". Patient states that he's been to [facility] once in the past and is willing to go back. Hospital course: Upon admission to the unit patient was initially depressed and suicidal and hearing voices. Patient was however directable and agreeable to commence treatment. Patient got along well with other patients on the unit and followed unit protocol. Patient was compliant with the medications and denied any side effects throughout hospital course. Patient was started on olanzapine and titrated up to a dose of 50 mg daily at bedtime for mood stabilization/psychosis. Patient was also started on Cymbalta and titrated up to a dose of 90 mg daily at bedtime for mood. Patient was also started on melatonin and titrated up to a dose of 10 mg daily at bedtime for sleep. Patient spoke of his stressors and engaged in therapy both group and individual. Patient was also seen by medical team for history and physical exam. Throughout the course of the hospitalization patient gradually improved with regards to mood, psychosis, anxiety, sleep and became future oriented with improved insight and judgment. On the day of discharge patient denied any suicidal or homicidal ideations intent or plan denied any auditory or visual hallucinations. Patient endorsed wanting to live for his sobriety and his his family. The patient denied any access to guns or weapons. Patient denied any paranoia and did not endorse any delusions. Patient does have a significant history of substance abuse and was counseled on abstaining from all substances including alcohol and marijuana.] Patient was agreeable to go to [facility] upon discharge. Patient was also counseled on the medicat ions and need for regular compliance and was encouraged to follow-up with their outpatient appointment for mental health and also for primary care. Prior to discharge a family meeting will be arranged by social problems specialist to answer any questions and ensure safety upon discharge. Mental status exam: General Appearance: Patient appears to be stated age is alert, pleasant, and cooperative. Patient is in no acute distress and has improved hygiene and grooming Behavior: Patient is calmly seated without any agitated behavior. Speech: Patient's speech is fluent and nonpressured. Mood/Affect: Patient reports their mood is "good", affect is congruent and euthymic. Suicidality/Homicidality: Patient denies having any suicidal or homicidal ideation intent or plan. Perceptions: Patient denies any auditory or visual hallucinations. Though content/process: There is no evidence of any delusional thought content and thought process is linear and goal-directed. Memory and concentration: AOX3, grossly intact for the purposes of this session. Can spell "WORLD" backwards correctly. Judgment and insight: improved with guarded prognosis. Impression: Major depressive disorder, severe, recurrent with psychotic features Alcohol abuse Cannabis abuse Cocaine abuse Nicotine dependence Plan: -Continue with discharge today as patient has improved and stabilized psychiatrically and is not currently an imminent threat to himself and/or others. -Continue medications: Zyprexa 15 mg daily at bedtime for mood stabilization/psychosis, Cymbalta 90 mg daily at bedtime for mood, melatonin 10 mg daily at bedtime for sleep. -Patient was counseled on the need for medication compliance and appropriate follow-up at mental health and also primary care for medical issues. Patient verbalized understanding and agreed. -Social work to arrange for and conduct family meeting to ensure safety upon discharge and answer any questions/concerns. Social work also to arrange for patients follow up appointments with [facility] for psychiatric care along with follow up with primary care provider. -Patient counseled on abstaining from recreational drugs and marijuana and alcohol. Was informed/educated on the adverse effects on their physical and mental health. Patient verbally agreed and understood. Patient will be discharged directly to [facility] to complete program. -Patient was instructed to return to the hospital or seek immediate medical care if their psychiatric or medical symptoms do worsen or reoccur. Allergies Allergy/AdvReac Type Severity Reaction Status Date / Time blueberry Allergy Rash/Hives Verified 03/14/19 19:37 nitroglycerin Allergy Swelling Verified 03/14/19 19:37 Laboratory Results WBC 5.5 k/uL (3.8-10.6) 03/14/19 18:49 RBC 4.03 m/uL (4.30-5.90) L 03/14/19 18:49 Hgb 12.5 gm/dL (13.0-17.5) L 03/14/19 18:49 Hct 38.6 % (39.0-53.0) L 03/14/19 18:49 MCV 95.8 fL (80.0-100.0) 03/14/19 18:49 MCH 31.0 pg (25.0-35.0) 03/14/19 18:49 MCHC 32.4 g/dL (31.0-37.0) 03/14/19 18:49 RDW 14.2 % (11.5-15.5) 03/14/19 18:49 Plt Count 180 k/uL (150-450) 03/14/19 18:49 Neutrophils % 48 % 03/14/19 18:49 Lymphocytes % 38 % 03/14/19 18:49 Monocytes % 8 % 03/14/19 18:49 Eosinophils % 1 % 03/14/19 18:49 Basophils % 1 % 03/14/19 18:49 Neutrophils # 2.6 k/uL (1.3-7.7) 03/14/19 18:49 Lymphocytes # 2.1 k/uL (1.0-4.8) 03/14/19 18:49 Monocytes # 0.4 k/uL (0-1.0) 03/14/19 18:49 Eosinophils # 0.0 k/uL (0-0.7) 03/14/19 18:49 Basophils # 0.1 k/uL (0-0.2) 03/14/19 18:49 Sodium 136 mmol/L (137-145) L 03/14/19 18:49 Potassium 4.3 mmol/L (3.5-5.1) 03/14/19 18:49 Chloride 98 mmol/L (98-107) 03/14/19 18:49 Carbon Dioxide 27 mmol/L (22-30) 03/14/19 18:49 Anion Gap 11 mmol/L 03/14/19 18:49 BUN 11 mg/dL (9-20) 03/14/19 18:49 Creatinine 0.87 mg/dL (0.66-1.25) 03/14/19 18:49 Est GFR (CKD-EPI)AfAm >90 (>60 ml/min/1.73 sqM) 03/14/19 18:49 Est GFR (CKD-EPI)NonAf >90 (>60 ml/min/1.73 sqM) 03/14/19 18:49 Glucose 66 mg/dL (74-99) L 03/14/19 18:[address] Glu mg/dL 114 03/15/19 07:57 Hemoglobin A1c 5.6 % (4.0-6.0) 03/15/19 07:57 Calcium 9.5 mg/dL (8.4-10.2) 03/14/19 18:49 Magnesium 2.0 mg/dL (1.6-2.3) 03/14/19 18:49 Iron 136 ug/dL (65-175) 03/15/19 07:57 TIBC 352 ug/dL (228-460) 03/15/19 07:57 % Saturation 38.64 (15.00-50.00) 03/15/19 07:57 Ferritin 38.2 ng/mL (22.0-322.0) 03/15/19 07:57 Total Bilirubin 0.8 mg/dL (0.2-1.3) 03/14/19 18:49 AST 35 U/L (17-59) 03/14/19 18:49 ALT 19 U/L (4-49) 03/14/19 18:49 Alkaline Phosphatase 58 U/L (38-126) 03/14/19 18:49 Creatine Kinase 519 U/L (55-170) H 03/14/19 18:49 Troponin I <0.012 ng/mL (0.000-0.034) 03/14/19 18:49 Total Protein 8.0 g/dL (6.3-8.2) 03/14/19 18:49 Albumin 4.7 g/dL (3.5-5.0) 03/14/19 18:49 Triglycerides 37 mg/dL (<150) 03/15/19 07:57 Cholesterol 152 mg/dL (<200) 03/15/19 07:57 LDL Cholesterol, Calc 35 mg/dL (0-99) 03/15/19 07:57 HDL Cholesterol 110 mg/dL (40-60) H 03/15/19 07:57 Vitamin B12 286.0 pg/mL (200.0-944.0) 03/15/19 07:57 Folate 19.8 ng/mL 03/15/19 07:57 TSH 0.112 mIU/L (0.465-4.680) L 03/15/19 07:57 Free T4 1.29 ng/dL (0.78-2.19) 03/15/19 07:57 Free T3 pg/mL 4.0 pg/ml (2.8-5.3) 03/15/19 07:57 Urine Opiates Screen Not Detected (NotDetected) 03/14/19 19:05 Ur Oxycodone Screen Not Detected (NotDetected) 03/14/19 19:05 Urine Methadone Screen Not Detected (NotDetected) 03/14/19 19:05 Ur Propoxyphene Screen Not Detected (NotDetected) 03/14/19 19:05 Ur Barbiturates Screen Not Detected (NotDetected) 03/14/19 19:05 U Tricyclic Antidepress Not Detected (NotDetected) 03/14/19 19:05 Ur Phencyclidine Scrn Not Detected (NotDetected) 03/14/19 19:05 Ur Amphetamines Screen Not Detected (NotDetected) 03/14/19 19:05 U Methamphetamines Scrn Not Detected (NotDetected) 03/14/19 19:05 U Benzodiazepines Scrn Not Detected (NotDetected) 03/14/19 19:05 Urine Cocaine Screen Detected (NotDetected) H 03/14/19 19:05 U Marijuana (THC) Screen Not Detected (NotDetected) 03/14/19 19:05 Vital Signs Temp 98.0 F 03/29/19 06:33 Pulse 109 H 03/29/19 08:00 Resp 16 03/29/19 08:00 BP 114/71 03/29/19 08:00 Pulse Ox 97 03/21/19 06:45 Patient Condition at Discharge: Stable Plan - Discharge Summary Discharge Rx Participant: Yes New Discharge Prescriptions: New Aspirin 81 mg PO DAILY 28 Days chew DULoxetine HCL [Cymbalta] 90 mg PO HS 28 Days cap Folic Acid 1 mg PO DAILY tab Melatonin 10 mg PO HS 28 Days tablet Multivitamins, Thera [Multivitamin (formulary)] 1 each PO DAILY tab Nicotine Polacrilex [Nicorette] 2 mg BUCCAL Q4HR PRN 14 Days gum PRN Reason: Nicotine Cravings OLANZapine 15 mg PO HS #28 tablet Metoprolol Succinate (ER) [Toprol XL] 12.5 mg PO DAILY 28 Days tab.er.24h Acetaminophen Tab [Tylenol] 650 mg PO Q4HR PRN tab PRN Reason: Pain/Discomfort Thiamine [Vitamin B-1] 100 mg PO DAILY tab Continue Budesonide/Formoterol Fumarate [Symbicort 160-4.5 Mcg Inhaler] 2 puff INHALATION RT-BID Albuterol Sulfate [Ventolin HFA] 1 - 2 puff INHALATION RT-Q6H PRN PRN Reason: Shortness Of Breath Discontinued QUEtiapine [SEROquel] 400 mg PO HS Venlafaxine HCl [Effexor XR] 150 mg PO DAILY HYDROcodone/APAP 7.5-325MG [Venetie 7.5-325] 1 tab PO TID PRN PRN Reason: Pain amLODIPine [Norvasc] 2.5 mg PO DAILY DULoxetine HCL [Cymbalta] 30 mg PO BID Baclofen [Lioresal] 10 mg PO TID Discharge Medication List Albuterol Sulfate [Ventolin HFA] 1 - 2 puff INHALATION RT-Q6H PRN 03/14/19 [History] Budesonide/Formoterol Fumarate [Symbicort 160-4.5 Mcg Inhaler] 2 puff INHALATION RT-BID 03/14/19 [History] Acetaminophen Tab [Tylenol] 650 mg PO Q4HR PRN tab 03/29/19 [Rx] Aspirin 81 mg PO DAILY 28 Days chew 03/29/19 [Rx] DULoxetine HCL [Cymbalta] 90 mg PO HS 28 Days cap 03/29/19 [Rx] Folic Acid 1 mg PO DAILY tab 03/29/19 [Rx] Melatonin 10 mg PO HS 28 Days tablet 03/29/19 [Rx] Metoprolol Succinate (ER) [Toprol XL] 12.5 mg PO DAILY 28 Days tab.er.24h 03/29/19 [Rx] Multivitamins, Thera [Multivitamin (formulary)] 1 each PO DAILY tab 03/29/19 [Rx] Nicotine Polacrilex [Nicorette] 2 mg BUCCAL Q4HR PRN 14 Days gum 03/29/19 [Rx] OLANZapine 15 mg PO HS #28 tablet 03/29/19 [Rx] Thiamine [Vitamin B-1] 100 mg PO DAILY tab 03/29/19 [Rx] Follow up Appointment(s)/Referral(s): [facility] [Outside] - 03/29/19 2:00 pm (200 ) [facility] [NON-STAFF] - 1 Week Patient Instructions/Handouts: How to Stop Smoking (DC), Depression (DC), Schizophrenia (DC), Alcohol Intoxication (DC) Activity/Diet/Wound Care/Special Instructions: Activity and diet as tolerated. Avoid the use of street drugs and alcohol. Take all medications as prescribed. When you are in need of refills on your medications please contact your medical provider and/or outpatient psychiatrist to have this done. Please go to scheduled outpatient appointment for aftercare treatment. If symptoms return or become worse, call the crisis line at and/or go to the nearest emergency room for evaluation. Discharge Disposition: HOME SELF-CARE
== END 2019-03-29 12:35 | DRG 885 ==
LOC: EC 17:05 → 3MHU 21:47
PROVIDERS: ADMIT Psychiatry & Neurology Psychiatry; ATTEND Psychiatry & Neurology Psychiatry
DX: F33.3 Major depressive disorder, recurrent, severe with psychotic symptoms (principal); F14.20 Cocaine dependence, uncomplicated; R45.851 Suicidal ideations; F17.210 Nicotine dependence, cigarettes, uncomplicated; E78.5 Hyperlipidemia, unspecified; F10.20 Alcohol dependence, uncomplicated; F12.20 Cannabis dependence, uncomplicated; F41.9 Anxiety disorder, unspecified; I25.10 Atherosclerotic heart disease of native coronary artery without angina pectoris; I25.2 Old myocardial infarction; R03.0 Elevated blood-pressure reading, without diagnosis of hypertension; Z60.2 Problems related to living alone; Z63.4 Disappearance and death of family member; M19.90 Unspecified osteoarthritis, unspecified site; Z83.6 Family history of other diseases of the respiratory system; Z79.51 Long term (current) use of inhaled steroids; Z79.899 Other long term (current) drug therapy; Z82.49 Family history of ischemic heart disease and other diseases of the circulatory system; Z91.14 Patient's other noncompliance with medication regimen; Z95.5 Presence of coronary angioplasty implant and graft; D64.9 Anemia, unspecified; Z86.010 Personal history of colon polyps; Z88.8 Allergy status to other drugs, medicaments and biological substances
CPT/HCPCS: 36415; 80053; 80061; 80306; 82075; 82550; 82607; 82728; 82746; 83036; 83540; 83550; 83735; 84439; 84443; 84481; 84484; 85025; 96374; 99285

== ENCOUNTER 2019-05-19 23:14 | Emergency (ER) | payer MEDICARE, MEDICAID ==
[2019-05-19 23:45] VITALS: TEMP 98.5
--- NOTE | 2019-05-19 23:55 | ED ---
Psych HPI - General Chief Complaint: Psychiatric Symptoms Stated Complaint: ETOH,Mental Health Time Seen by Provider: 05/19/19 23:17 Source: patient, RN notes reviewed, old records reviewed Limitations: no limitations - History of Present Illness Initial Comments: This is a 58-year-old male lungs is here for evaluation of psychiatric illness. Patient not taking psychiatric medications does admit to alcohol use but no drugs. Patient states he feels suicidal wanted to kill himself last night unsure of coming up with the way to do so. Patient continues remains suicidal now very depressed and drink alcohol today states that he has a fentanyl recent at that from [place] [facility] and has making a very depressed and anxious, scared and suicidal MD Complaint: suicidal ideation, feels depressed -: hour(s) Associated Psychiatric Symptoms: depression, suicidal ideation History of same: Yes Quality: constant, getting worse Improves With: none Worsens With: none Context: recent alcohol abuse Associated Symptoms: denies other symptoms Treatments Prior to Arrival: placed on mental health hold - Related Data Home Medications Medication Instructions Recorded Confirmed Albuterol Sulfate [Ventolin HFA] 1 - 2 puff INHALATION RT-Q6H PRN 03/14/19 03/14/19 Budesonide/Formoterol Fumarate 2 puff INHALATION RT-BID 03/14/19 03/14/19 [Symbicort 160-4.5 Mcg Inhaler] Previous Rx's Medication Instructions Recorded Acetaminophen Tab [Tylenol] 650 mg PO Q4HR PRN tab 03/29/19 Aspirin 81 mg PO DAILY 28 Days chew 03/29/19 DULoxetine HCL [Cymbalta] 90 mg PO HS 28 Days cap 03/29/19 Folic Acid 1 mg PO DAILY tab 03/29/19 Melatonin 10 mg PO HS 28 Days tablet 03/29/19 Metoprolol Succinate (ER) [Toprol 12.5 mg PO DAILY 28 Days 03/29/19 XL] tab.er.24h Multivitamins, Thera [Multivitamin 1 each PO DAILY tab 03/29/19 (formulary)] Nicotine Polacrilex [Nicorette] 2 mg BUCCAL Q4HR PRN 14 Days gum 03/29/19 OLANZapine 15 mg PO HS #28 tablet 03/29/19 Thiamine [Vitamin B-1] 100 mg PO DAILY tab 03/29/19 Allergies Allergy/AdvReac Type Severity Reaction Status Date / Time blueberry Allergy Rash/Hives Verified 03/14/19 19:37 nitroglycerin Allergy Swelling Verified 03/14/19 19:37 Review of Systems ROS Statement: Those systems with pertinent positive or pertinent negative responses have been documented in the HPI. ROS Other: All systems not noted in ROS Statement are negative. Past Medical History Past Medical History: Coronary Artery Disease (CAD), Chest Pain / Angina, Hyperlipidemia, Myocardial Infarction ([place]), Osteoarthritis (OA) Additional Past Medical History / Comment(s): Pt denies COPD, arthritis in back and bilateral knees, benign colon polyps Last Myocardial Infarction Date:: 2004 History of Any Multi-Drug Resistant Organisms: None Reported Past Surgical History: Bowel Resection, Heart Catheterization With Stent Additional Past Surgical History / Comment(s): Cardiac stents x 3, bowel surgery for pinpoint hole in bowel, L knee arthroscopy, colonoscopy/benign polypectomies. Past Anesthesia/Blood Transfusion Reactions: No Reported Reaction Date of Last Stent Placement:: 2013 Past Psychological History: Bipolar, Depression, Schizophrenia Smoking Status: Current every day smoker Past Alcohol Use History: Heavy Past Drug Use History: Marijuana - Past Family History Father Family Medical History: Respiratory Disorder Additional Family Medical History / Comment(s): Father at age 64 from Black lung disease Mother Family Medical History: Myocardial Infarction ([place]) Additional Family Medical History / Comment(s): Mother of an VA at 78yrs old. Brother(s) Family Medical History: Myocardial Infarction ([place]) Additional Family Medical History / Comment(s): Patient has 10 brothers and 2 from myocardial infarction and had history of alcoholism. Sister(s) Additional Family Medical History / Comment(s): He has 7 sisters that are alive with no major medical problems. He has one son that has and one daughter that is alive and okay. General Exam Limitations: no limitations General appearance: alert, in no apparent distress Head exam: Present: atraumatic, normocephalic, normal inspection Eye exam: Present: normal appearance, PERRL, EOMI. Absent: scleral icterus, conjunctival injection, periorbital swelling ENT exam: Present: normal exam, mucous membranes moist Neck exam: Present: normal inspection. Absent: tenderness, meningismus, lymphadenopathy Respiratory exam: Present: normal lung sounds bilaterally. Absent: respiratory distress, wheezes, rales, rhonchi, stridor Cardiovascular Exam: Present: regular rate, normal rhythm, normal heart sounds. Absent: systolic murmur, diastolic murmur, rubs, gallop, clicks GI/Abdominal exam: Present: soft, normal bowel sounds. Absent: distended, tenderness, guarding, rebound, rigid Extremities exam: Present: normal inspection, full ROM, normal capillary refill. Absent: tenderness, pedal edema, joint swelling, calf tenderness Back exam: Present: normal inspection Neurological exam: Present: alert, oriented X3, CN II-XII intact Psychiatric exam: Present: normal affect, normal mood Skin exam: Present: warm, dry, intact, normal color. Absent: rash Course Vital Signs 05/19/19 05/20/19 23:38 00:14 Temperature 98.5 F Pulse Rate 86 78 Respiratory 14 20 Rate Blood Pressure 129/86 136/78 O2 Sat by Pulse 100 100 Oximetry - Reevaluation(s) Reevaluation #1: 05/20/19 03:32 Medical records reviewed and patient made medically clear for psychiatric evaluation Reevaluation #2: 05/20/19 03:32 Patient made aware of need for inpatient psychiatric treatment, and did inform patient of surgeon feeling out of certain, he is aware questions answered Medical Decision Making - Medical Decision Making 58 male DF for evaluation psychiatric evaluation, patient will be transferred for inpatient psychiatric evaluation and treatment - Lab Data Result diagrams: 05/20/19 02:40 05/20/19 02:40 Lab Results 05/20/19 05/20/19 Range/Units 02:40 02:40 WBC 4.8 (3.8-10.6) k/uL RBC 3.77 L (4.30-5.90) m/uL Hgb 11.9 L (13.0-17.5) gm/dL Hct 35.8 L (39.0-53.0) % MCV 94.8 (80.0-100.0) fL MCH 31.4 (25.0-35.0) pg MCHC 33.1 (31.0-37.0) g/dL RDW 14.5 (11.5-15.5) % Plt Count 187 (150-450) k/uL Sodium 139 (137-145) mmol/L Potassium 3.9 (3.5-5.1) mmol/L Chloride 106 (98-107) mmol/L Carbon Dioxide 24 (22-30) mmol/L Anion Gap 9 mmol/L BUN 8 L (9-20) mg/dL Creatinine 0.72 (0.66-1.25) mg/dL Est GFR (CKD-EPI)AfAm >90 (>60 ml/min/1.73 sqM) Est GFR (CKD-EPI)NonAf >90 (>60 ml/min/1.73 sqM) Glucose 82 (74-99) mg/dL Calcium 9.4 (8.4-10.2) mg/dL Phosphorus 3.6 (2.5-4.5) mg/dL Magnesium 2.1 (1.6-2.3) mg/dL Total Bilirubin 0.6 (0.2-1.3) mg/dL AST 22 (17-59) U/L ALT 13 (4-49) U/L Alkaline Phosphatase 44 (38-126) U/L Total Protein 7.3 (6.3-8.2) g/dL Albumin 4.2 (3.5-5.0) g/dL Salicylates <1.0 mg/dL Acetaminophen <10.0 ug/mL Serum Alcohol <10 mg/dL Disposition Clinical Impression: Alcohol intoxication, Schizophrenia, Alcohol use disorder, Cocaine use disorder, Schizoaffective disorder, Allergic reaction, Suicidal ideation Disposition: TRANSFER TO PSYCH HOSP/UNIT Condition: Fair Is patient prescribed a controlled substance at d/c from ED?: No Referrals: Nonstaff,Physician [Primary Care Provider] - 1-2 days
[2019-05-20] MEDS ORDERED: LORazepam 1 MG TAB PO STA (00:31)
[2019-05-20 03:10] LABS: ALT 13 U/L (4-49); AST 22 U/L (17-59); Acetaminophen <10.0 ug/mL; African American GFR (CKD) >90 (>60 ml/min/1.73 sqM); Albumin 4.2 g/dL (3.5-5.0); Alcohol <10 mg/dL; Alkaline Phosphatase 44 U/L (38-126); Anion Gap 9 mmol/L; Blood Urea Nitrogen 8 mg/dL (9-20); Calcium 9.4 mg/dL (8.4-10.2); Carbon Dioxide 24 mmol/L (22-30); Chloride 106 mmol/L (98-107); Glucose 82 mg/dL (74-99); Magnesium 2.1 mg/dL (1.6-2.3); Non-African American GFR(CKD) >90 (>60 ml/min/1.73 sqM); Phosphorus 3.6 mg/dL (2.5-4.5); Potassium 3.9 mmol/L (3.5-5.1); Salicylate <1.0 mg/dL; Sodium 139 mmol/L (137-145); Total Bilirubin 0.6 mg/dL (0.2-1.3); Total Protein 7.3 g/dL (6.3-8.2)
[2019-05-20 03:19] LABS: HCT 35.8 % (39.0-53.0); HGB 11.9 gm/dL (13.0-17.5); MCH 31.4 pg (25.0-35.0); MCHC 33.1 g/dL (31.0-37.0); MCV 94.8 fL (80.0-100.0); Platelet Count 187 k/uL (150-450); RBC 3.77 m/uL (4.30-5.90); RDW 14.5 % (11.5-15.5); WBC 4.8 k/uL (3.8-10.6)
[2019-05-20 03:43] LABS: Lymphocytes # (M) 2.35 k/uL (1.0-4.8); Monocytes # (M) 0.38 k/uL (0-1.0); Neutrophils # (M) 2.06 k/uL (1.3-7.7); Neutrophils % (M) 43 %; Nucleated Red Blood Cells 0 /100 WBC (0-0); Total Cells Counted 100
[2019-05-20 06:20] VITALS: BP 130/90; PULSE 75; RESP 18
[2019-05-20 07:41] LABS: Appearance,Urine Clear (Clear); Bilirubin,Urine Negative (Negative); Blood,Urine Negative (Negative); Color,Urine Yellow; Glucose,Urine (UA) Negative (Negative); Ketones,Urine Negative (Negative); Leukocyte Esterase,Urine Negative (Negative); Nitrite,Urine Negative (Negative); Protein,Urine Negative (Negative); Specific Gravity,Urine 1.009 (1.001-1.035); Urobilinogen,Urine <2.0 mg/dL (<2.0)
[2019-05-20 07:54] LABS: Amphetamine Screen,Urine Not Detected (NotDetected); Barbiturate Screen,Urine Not Detected (NotDetected); Benzodiazepines Screen,Urine Detected (NotDetected); Cocaine Screen,Urine Detected (NotDetected); Methadone Screen, Urine Not Detected (NotDetected); Opiate Screen,Urine Not Detected (NotDetected); Oxycodone Screen, Urine Not Detected (NotDetected); Phencyclidine Screen,Urine Not Detected (NotDetected); Tricyclic Antidepressant,Urine Not Detected (NotDetected); Urn Cannabinoid Scrn Not Detected (NotDetected)
== END 2019-05-20 11:15 ==
LOC: EC 23:14
DX: F10.129 Alcohol abuse with intoxication, unspecified (principal); F25.9 Schizoaffective disorder, unspecified; F14.90 Cocaine use, unspecified, uncomplicated; R45.851 Suicidal ideations; T78.40XA Allergy, unspecified, initial encounter; F17.200 Nicotine dependence, unspecified, uncomplicated; I25.119 Atherosclerotic heart disease of native coronary artery with unspecified angina pectoris; I25.2 Old myocardial infarction; Z79.51 Long term (current) use of inhaled steroids; Z88.8 Allergy status to other drugs, medicaments and biological substances; Z91.018 Allergy to other foods; Z95.5 Presence of coronary angioplasty implant and graft
CPT/HCPCS: 99285 ×2; 82075; 36415; 80053; 83735; 84100; 85025; 81003; 80306; 83520; G0480 ×2; 80320; 80329

== ENCOUNTER 2019-06-30 01:20 | Inpatient (IN) | payer MEDICARE, MEDICAID ==
--- NOTE | 2019-06-30 02:01 | ED ---
General Adult HPI - General Chief complaint: Psychiatric Symptoms Stated complaint: Mental Health Time Seen by Provider: 06/30/19 01:53 Source: patient, police, RN notes reviewed, old records reviewed Mode of arrival: ambulatory Limitations: no limitations - History of Present Illness Initial comments: 58-year-old male presents for psychiatric evaluation. Patient has history of schizophrenia, polysubstance abuse, depression. He was brought in by please department for evaluation of suicidal thoughts as well as substance abuse. He admits to drinking alcohol. He admits to smoking marijuana as well as using cocaine. He states he's been off his medications because his and daughter keeps throwing his medications away. He has no physical complaints. He does state that he is suicidal but does not have a specific plan. - Related Data Home Medications Medication Instructions Recorded Confirmed Albuterol Sulfate [Ventolin HFA] 1 - 2 puff INHALATION RT-Q6H PRN 03/14/19 03/14/19 Budesonide/Formoterol Fumarate 2 puff INHALATION RT-BID 03/14/19 03/14/19 [Symbicort 160-4.5 Mcg Inhaler] Previous Rx's Medication Instructions Recorded Acetaminophen Tab [Tylenol] 650 mg PO Q4HR PRN tab 03/29/19 Aspirin 81 mg PO DAILY 28 Days chew 03/29/19 Folic Acid 1 mg PO DAILY tab 03/29/19 Melatonin 10 mg PO HS 28 Days tablet 03/29/19 Metoprolol Succinate (ER) [Toprol 12.5 mg PO DAILY 28 Days 03/29/19 XL] tab.er.24h Multivitamins, Thera [Multivitamin 1 each PO DAILY tab 03/29/19 (formulary)] Nicotine Polacrilex [Nicorette] 2 mg BUCCAL Q4HR PRN 14 Days gum 03/29/19 Thiamine [Vitamin B-1] 100 mg PO DAILY tab 03/29/19 Atorvastatin [Lipitor] 40 mg PO HS #30 tab 07/11/19 DULoxetine HCL [Cymbalta] 30 mg PO BID #60 capsule. 07/11/19 OLANZapine [ZyPREXA] 15 mg PO BID #180 tab 07/11/19 Allergies Allergy/AdvReac Type Severity Reaction Status Date / Time blueberry Allergy Rash/Hives Verified 06/30/19 01:32 nitroglycerin Allergy Swelling Verified 06/30/19 01:32 Review of Systems ROS Statement: Those systems with pertinent positive or pertinent negative responses have been documented in the HPI. ROS Other: All systems not noted in ROS Statement are negative. Past Medical History Past Medical History: Coronary Artery Disease (CAD), Chest Pain / Angina, Hyperlipidemia, Myocardial Infarction (LA), Osteoarthritis (OA) Additional Past Medical History / Comment(s): Pt denies COPD, arthritis in back and bilateral knees, benign colon polyps Last Myocardial Infarction Date:: 2004 History of Any Multi-Drug Resistant Organisms: None Reported Past Surgical History: Bowel Resection, Heart Catheterization With Stent Additional Past Surgical History / Comment(s): Cardiac stents x 3, bowel surgery for pinpoint hole in bowel, L knee arthroscopy, colonoscopy/benign polypec tomies. Past Anesthesia/Blood Transfusion Reactions: No Reported Reaction Date of Last Stent Placement:: 2013 Past Psychological History: Bipolar, Depression, Schizophrenia Smoking Status: Current every day smoker Past Alcohol Use History: Heavy Past Drug Use History: Marijuana - Past Family History Father Family Medical History: Respiratory Disorder Additional Family Medical History / Comment(s): Father at age 64 from Black lung disease Mother Family Medical History: Myocardial Infarction (LA) Additional Family Medical History / Comment(s): Mother of an LA at 78yrs old. Brother(s) Family Medical History: Myocardial Infarction (LA) Additional Family Medical History / Comment(s): Patient has 10 brothers and 2 from myocardial infarction and had history of alcoholism. Sister(s) Additional Family Medical History / Comment(s): He has 7 sisters that are alive with no major medical problems. He has one son that has and one daughter that is alive and okay. General Exam Limitations: no limitations General appearance: alert, appears intoxicated Head exam: Present: atraumatic, normocephalic Eye exam: Present: normal appearance, PERRL ENT exam: Present: normal exam Neck exam: Present: normal inspection. Absent: tenderness, meningismus Respiratory exam: Present: normal lung sounds bilaterally. Absent: respiratory distress, wheezes Cardiovascular Exam: Present: regular rate, normal rhythm GI/Abdominal exam: Present: soft. Absent: distended, tenderness, guarding Extremities exam: Present: normal inspection, normal capillary refill. Absent: pedal edema Back exam: Present: normal inspection Neurological exam: Present: alert, oriented X3, CN II-XII intact. Absent: motor sensory deficit Psychiatric exam: Present: depressed, suicidal ideation Skin exam: Present: warm, dry, intact. Absent: cyanosis, diaphoretic Course Vital Signs 06/30/19 06/30/19 06/30/19 01:28 06:07 14:13 Temperature 98 F 98.5 F 98.2 F Pulse Rate 94 93 85 Respiratory 18 16 16 Rate Blood Pressure 117/80 102/61 114/85 O2 Sat by Pulse 98 97 99 Oximetry - Reevaluation(s) Reevaluation #1: 06/30/19 0700 Patient's care is signed out at shift change awaiting EPS evaluation. Medical Decision Making - Medical Decision Making Patient presenting for psychiatric evaluation, medically cleared and admitted to this institution for further psychiatric evaluation and treatment. - Lab Data Lab Results 06/30/19 Range/Units 01:45 Urine Opiates Screen Not Detected (NotDetected) Ur Oxycodone Screen Not Detected (NotDetected) Urine Methadone Screen Not Detected (NotDetected) Ur Propoxyphene Screen Not Detected (NotDetected) Ur Barbiturates Screen Not Detected (NotDetected) U Tricyclic Antidepress Not Detected (NotDetected) Ur Phencyclidine Scrn Not Detected (NotDetected) Ur Amphetamines Screen Not Detected (NotDetected) U Methamphetamines Scrn Not Detected (NotDetected) U Benzodiazepines Scrn Not Detected (NotDetected) Urine Cocaine Screen Detected H (NotDetected) U Marijuana (THC) Screen Not Detected (NotDetected) Disposition Clinical Impression: Suicidal ideation, Alcohol abuse, Depression Disposition: ADMITTED IP TO THIS HOSP Condition: Stable Is patient prescribed a controlled substance at d/c from ED?: No Decision to Admit Reason: Admit from EC
[2019-06-30 02:22] LABS: Amphetamine Screen,Urine Not Detected (NotDetected); Barbiturate Screen,Urine Not Detected (NotDetected); Benzodiazepines Screen,Urine Not Detected (NotDetected); Cocaine Screen,Urine Detected (NotDetected); Methadone Screen, Urine Not Detected (NotDetected); Opiate Screen,Urine Not Detected (NotDetected); Oxycodone Screen, Urine Not Detected (NotDetected); Phencyclidine Screen,Urine Not Detected (NotDetected); Tricyclic Antidepressant,Urine Not Detected (NotDetected); Urn Cannabinoid Scrn Not Detected (NotDetected)
[2019-06-30] MEDS ORDERED: LORazepam 2 MG/ML INJ IM STA (09:55)
[2019-06-30] MEDS ORDERED: ZIPRASIDONE 20 MG CAP PO STA (14:30)
[2019-06-30] MEDS ORDERED: MAGNESIUM HYDROXIDE 2,400 MG/10 ML CUP PO PRN (15:12)
[2019-06-30] MEDS ORDERED: ZIPRASIDONE 20 MG VIAL IM PRN (15:12)
[2019-06-30] MEDS ORDERED: MAG HYDROX/AL HYDROX/SIMETH 30 ML CUP PO PRN (15:12)
[2019-06-30] MEDS ORDERED: ACETAMINOPHEN TAB 325 MG TAB PO PRN (15:12)
[2019-06-30] MEDS: ASPIRIN 81 MG PO SCH (17:14)
[2019-06-30] MEDS: LORazepam 1 MG TAB PO PRN (17:14)
[2019-06-30] MEDS: MELATONIN 5 MG TABLET PO SCH (22:10)
[2019-07-01] MEDS: LORazepam 1 MG TAB PO PRN ×3 (08:12→20:44)
[2019-07-01] MEDS: ASPIRIN 81 MG PO SCH (08:12)
--- NOTE | 2019-07-01 14:45 | P.HP ---
Psychiatric H&P - . H&P Date: 07/01/19 History & Physical: IDENTIFYING DATA: The patient is a 58-year-old single [place] male who is well known to this service from multiple past admissions. HISTORY OF PRESENT ILLNESS: He presented with complaints of suicidal ideation and auditory hallucinations. He told the EPS nurse that was hearing voices telling him to "hurt himself". He "called the police" and when the police did not arrived promptly he alleged that the "voices" told him to run in front of traffic. He was not injured because he alleged that the automobile transport driver's avoided him. He complained of continued feelings of depression and thoughts of and suicide. He is vague and guarded during interview and avoided talking about suicidal thoughts and would not talk about or plan.. He alleged that he is hopeless, helpless and feels worthless. He gave various accounts of the temporal development of his symptoms. He alleged during our interview that he's been depressed since he was last discharged from this unit. He alleged that depression worsened after his father "a month ago" He told the APS nurse that he's been depressed since about this father 2 months ago. He has an extensive history of alcohol and cocaine use problems. He minimizes his alcohol and cocaine use during her interview alleging that he drank "some" and used cocaine "once". His breath alcohol level was 0.182 and his UDS was positive for cocaine. He described a general sense of anxiety and tension but denied experiencing panic attacks. He would not answer questions about other psychotic symptoms such as ideas reference, thought insertion, thought broadcasting and thought control. He did not express experiencing obsessions or compulsions. PAST PSYCHIATRIC HISTORY: He has had at least 15 admissions to this unit. The last was in March 2019 when he is discharged with diagnoses of major depressive disorder, alcohol abuse, cannabis abuse, cocaine abuse and dependence. He did not continue with his discharge medicines after his last psychiatric hospitalizations and did not follow through with outpatient treatment. According to the [facility] mental health records he has been hospitalized 4 times since February 2019. He has not followed through with outpatient treatment at [facility] except for an intake appointment on 06/21/2019. According to social work he was placed on an alternate treatment order when he is hospitalized at [facility] in [facility] in February 2019. PAST MEDICAL HISTORY: Coronary artery disease, hyperlipidemia, history of myocardial infarct, osteoarthritis ALLERGIES: Nitroglycerin SUBSTANCE USE HISTORY: He was guarded about his substance abuse history. According to record he's been using cocaine for the last 9 years and last used some time prior to admission. He has been using alcohol since he was 34 years old and last used the day of admission. He is alleging that over the last 2 weeks he's been drinking approximately 10 beers per day. He has been in at least one substance abuse treatment program. FAMILY PSYCHIATRIC/SUBSTANCE USE HISTORY: He alleged that 2 of his brothers by suicide. LEGAL HISTORY: He denied current legal problems. SOCIAL HISTORY: His born and raised in [place]. He completed the 12th grade. His parents are . He alleged she worked for [employer] and retired 15 years ago. He currently receives so security disability. He lives alone in an apartment. MENTAL STATUS EXAM: He presented as irritable, guarded and uncooperative -Com[place] male. Initially would not consent to this interview. He did not make eye contact but appeared to attend to interview. He is no distinguishing features or prominent physical abnormalities. He had a depressed facial expression. He is alert and oriented to person, place and time. He showed psychomotor retardation but no abnormal movements. Her speech was nonspontaneous and had decreased rate, rhythm and volume. Affect was depressed and not reactive. He expressed suicidal ideation or wishes. He denied homicidal ideation. He expressed feelings of hopelessness, helplessness and worthlessness. He ruminated about of his father. He did not express ideas reference or paranoid ideation or delusions. His thinking was concrete but his associations were coherent and logical. He described auditory hallucinations but did not appear to be responding to internal stimuli. Global impression of intellect is average. He is aware of his illness need for treatment. STRENGTHS: Stable income, stable housing, relatively good health WEAKNESSES:, Compliance with treatment, continued alcohol and cocaine use IMPRESSION: Is a 58-year-old single -Com[place] male admitted to the psychiatric unit voluntarily with complaints of depression, suicidal ideation, suicide attempt and command auditory hallucinations. He is well known to the psychiatric unit from multiple prior psychiatric hospitalizations. He is a documented history of alcohol and cocaine use disorder in addition to recurrent depression. He also has a history of noncompliance with outpatient treatment. Since his last admission to this hospital he has been admitted to at least 3 other facilities. He should be treated inpatient basis with combination of psychopharmacology and multimodal therapy. PRINCIPLE DIAGNOSIS: Suicidal ideation, major depressive disorder recurrent severe with psychotic features, alcohol use disorder severe, cocaine use disorder severe, poor compliance with mental health treatment RECOMMENDATION: But this psychiatric unit. Safety precautions. Consult medicine for the initial physical exam and medical history. Restart olanzapine 15 mg daily and duloxetine 30 mg by mouth twice a day. Lorazepam 1 mg by mouth 3 times a day for anxiety or alcohol withdrawal, Geodon 20 mg IM twice a day when necessary for agitation acute psychosis. developmental services worker to completed initial psychosocial assessment coordinate discharge and aftercare services. Encourage participation in therapeutic groups and activities. Evaluate clinical status response to treatment daily basis. Allergies Allergy/AdvReac Type Severity Reaction Status Date / Time blueberry Allergy Rash/Hives Verified 06/30/19 01:32 nitroglycerin Allergy Swelling Verified 06/30/19 01:32 Vital Signs Temp 98.9 F 07/01/19 13:03 Pulse 95 07/01/19 13:03 Resp 20 07/01/19 13:03 BP 121/88 07/01/19 13:03 Pulse Ox 96 07/01/19 06:31 Intake & Output 06/30/19 07/01/19 07/01/19 18:59 06:59 18:59 Weight 69.5 kg Laboratory Last Values Urine Opiates Screen Not Detected (NotDetected) 06/30/19 01:45 Ur Oxycodone Screen Not Detected (NotDetected) 06/30/19 01:45 Urine Methadone Screen Not Detected (NotDetected) 06/30/19 01:45 Ur Propoxyphene Screen Not Detected (NotDetected) 06/30/19 01:45 Ur Barbiturates Screen Not Detected (NotDetected) 06/30/19 01:45 U Tricyclic Antidepress Not Detected (NotDetected) 06/30/19 01:45 Ur Phencyclidine Scrn Not Detected (NotDetected) 06/30/19 01:45 Ur Amphetamines Screen Not Detected (NotDetected) 06/30/19 01:45 U Methamphetamines Scrn Not Detected (NotDetected) 06/30/19 01:45 U Benzodiazepines Scrn Not Detected (NotDetected) 06/30/19 01:45 Urine Cocaine Screen Detected (NotDetected) H 06/30/19 01:45 U Marijuana (THC) Screen Not Detected (NotDetected) 06/30/19 01:45 07/01/19 13:14 07/01/19 14:43
--- NOTE | 2019-07-01 18:40 | P.MDCNMH ---
History of Present Illness H&P Date: 07/01/19 Chief Complaint: Medical management 58-year-old male with PMH of CAD and stent placement presents to the ED for suicidal ideation and polysubstance abuse. He did admit to drinking alcohol, smoking marijuana as well as using cocaine in the ED. [facility] physicians has been consulted for medical management of this patient. His current vital signs are within normal limits except for elevated heart rate in the 90s. UDS is positive for cocaine. Patient reports no symptoms currently. He denies any headache, lower extremity edema, nausea or vomiting, fever or chills, cough, chest pain, shortness of breath, palpitations, changes in urination or bowel habits. No changes in appetite or weight. He denies any dizziness, numbness/weakness/tingling of the extremities. He is requesting Ensure for decreased appetite. Patient states that he smokes cigarettes sometimes and drinks alcohol every other day. He denies any illicit drug use. He does report a history of myocardial infarction in the past with no current complaints. Review of Systems Pertinent positives and negatives as discussed in HPI, a complete review of systems was performed and all other systems are negative. Past Medical History Past Medical History: Coronary Artery Disease (CAD), Chest Pain / Angina, Hyperlipidemia, Myocardial Infarction (NM), Osteoarthritis (OA) Additional Past Medical History / Comment(s): Pt denies COPD, arthritis in back and bilateral knees, benign colon polyps Last Myocardial Infarction Date:: 2004 History of Any Multi-Drug Resistant Organisms: None Reported Past Surgical History: Bowel Resection, Heart Catheterization With Stent Additional Past Surgical History / Comment(s): Cardiac stents x 3, bowel surgery for pinpoint hole in bowel, L knee arthroscopy, colonoscopy/benign polypectomies. Past Anesthesia/Blood Transfusion Reactions: No Reported Reaction Date of Last Stent Placement:: 2013 Past Psychological History: Bipolar, Depression, Schizophrenia Smoking Status: Current every day smoker Past Alcohol Use History: Heavy Past Drug Use History: Marijuana - Past Family History Father Family Medical History: Respiratory Disorder Additional Family Medical History / Comment(s): Father at age 64 from Black lung disease Mother Family Medical History: Myocardial Infarction (NM) Additional Family Medical History / Comment(s): Mother of an NM at 78yrs old. Brother(s) Family Medical History: Myocardial Infarction (NM) Additional Family Medical History / Comment(s): Patient has 10 brothers and 2 from myocardial infarction and had history of alcoholism. Sister(s) Additional Family Medical History / Comment(s): He has 7 sisters that are alive with no major medical problems. He has one son that has and one daughter that is alive and okay. Medications and Allergies Home Medications Medication Instructions Recorded Confirmed Type Albuterol Sulfate [Ventolin HFA] 1 - 2 puff INHALATION RT-Q6H PRN 03/14/19 03/14/19 History Budesonide/Formoterol Fumarate 2 puff INHALATION RT-BID 03/14/19 03/14/19 History [Symbicort 160-4.5 Mcg Inhaler] Acetaminophen Tab [Tylenol] 650 mg PO Q4HR PRN tab 03/29/19 Rx Aspirin 81 mg PO DAILY 28 Days chew 03/29/19 Rx DULoxetine HCL [Cymbalta] 90 mg PO HS 28 Days cap 03/29/19 Rx Folic Acid 1 mg PO DAILY tab 03/29/19 Rx Melatonin 10 mg PO HS 28 Days tablet 03/29/19 Rx Metoprolol Succinate (ER) [Toprol 12.5 mg PO DAILY 28 Days 03/29/19 Rx XL] tab.er.24h Multivitamins, Thera [Multivitamin 1 each PO DAILY tab 03/29/19 Rx (formulary)] Nicotine Polacrilex [Nicorette] 2 mg BUCCAL Q4HR PRN 14 Days gum 03/29/19 Rx OLANZapine 15 mg PO HS #28 tablet 03/29/19 Rx Thiamine [Vitamin B-1] 100 mg PO DAILY tab 03/29/19 Rx Allergies Allergy/AdvReac Type Severity Reaction Status Date / Time blueberry Allergy Rash/Hives Verified 06/30/19 01:32 nitroglycerin Allergy Swelling Verified 06/30/19 01:32 Physical Exam Vitals: Vital Signs Temp Pulse Pulse Resp BP BP Pulse Ox 07/01/19 13:03 98.9 F 95 20 121/88 07/01/19 08:17 92 20 119/94 07/01/19 06:31 98.7 F 80 16 114/60 96 General: [non toxic], [no distress], [appears at stated age] Derm: [warm], [dry] Head: [atraumatic], [normocephalic], [symmetric] Eyes: [EOMI], [no lid lag], [anicteric sclera] Mouth: [no lip lesion], [mucus membranes moist] Cardiovascular: [S1S2 reg], [no murmur], [positive posterior tibial pulse bilateral], Lungs: [CTA bilateral], [no rhonchi, no rales] , [no accessory muscle use] Abdominal: [soft], [ nontender to palpation], [no guarding], [no appreciable organomegaly] Ext: [no gross muscle atrophy], [no edema], [no contractures] Neuro: [ CN II-XI grossly intact], [no focal neuro deficits] Psych: [Alert], [oriented], [appropriate affect] Cranial Nerve Examination - Cranial Nerves Cranial Nerve II- Optic: Intact Cranial Nerve III- Oculomotor: Intact Cranial Nerve IV- Trochlear: Intact Cranial Nerve V- Trigeminal: Intact Cranial Nerve - Abducens: Intact Cranial Nerve VII- Facial: Intact Cranial Nerve VIII- Auditory: Intact Cranial Nerve IX- Glossopharyngeal: Intact Cranial Nerve X- Vagus: Intact Cranial Nerve XI- Accessory: Intact Cranial Nerve XII- Hypoglossal: Intact Assessment and Plan Assessment: CAD with history of stent placement Polysubstance abuse History of alcohol use Smoker Patient will be started on aspirin and Lipitor. I will start metoprolol for his CAD with history of NM and stent placement. His UDS was positive for cocaine. He is currently receiving Ativan as needed for agitation. Patient will be placed on CIWA protocol and given Ativan as needed for alcohol withdrawal. Patient denies needing an nicotine patch. Thank you for this consult. Please call with any additional questions or concerns.
[2019-07-01] MEDS: MELATONIN 5 MG TABLET PO SCH (20:45)
[2019-07-01] MEDS: DULoxetine HCL 30 MG CAPSULE.DR PO SCH (20:45)
[2019-07-01] MEDS: ATORVASTATIN 40 MG TAB PO SCH (20:45)
[2019-07-02] MEDS: ASPIRIN 81 MG PO SCH (08:21)
[2019-07-02] MEDS: OLANZapine 5 MG TAB PO SCH (08:22)
[2019-07-02] MEDS: DULoxetine HCL 30 MG CAPSULE.DR PO SCH ×2 (08:22→21:29)
[2019-07-02] MEDS: METOPROLOL SUCCINATE (ER) 25 MG TAB.ER.24H PO SCH (08:22)
[2019-07-02] MEDS: LORazepam 1 MG TAB PO PRN ×2 (08:23→21:31)
--- NOTE | 2019-07-02 15:37 | P.PN ---
Progress Note - Text Progress Note Date: 07/02/19 Clinical Problems: Suicidal ideation, major depressive disorder recurrent severe with psychotic features, alcohol use disorder severe, cocaine use disorder severe, poor compliance with mental health treatment Interim history: I reviewed the medical record and attempted to interview the patient. He would not get of bed for the interview. He would not make eye contact and would not engage in a conversation. Hospitalist consult appreciated. He has not attended therapeutic groups or activities. He does not interact with staff or peers. He comes out of his room for medications and for meals. He is had minimal alcohol withdrawal symptoms as indicated by his CIWA scores. Mental status exam: He proved presented as a irritable and uncooperative 58-year-old after Tristanian male who is laying in bed. He would not make eye contact and would not cooperate with the interview. He would not answer most questions. In response to questions about suicidality he abruptly answered "yes". Assessment: He remains withdrawn, irritable and uncooperative. He is having minimal alcohol withdrawal symptoms. However, he is currently compliant with prescribed psychotropic medications. Plan: He didn't inpatient treatment. Continue safety precautions. Continue Cymbalta 30 mg twice a day, melatonin 10 mg at bedtime and Zyprexa 50 mg daily. Geodon 20 mg IM twice a day when necessary for agitation or aggression. Boiler Control Room Operator recommended to continue low-dose aspirin 81 mg daily, Lipitor 40 mg d aily and Toprol-XL 12.5 mg daily. Encourage participation in therapeutic groups and activities. Evaluate clinical status response to treatment on daily basis.
[2019-07-02] MEDS: ATORVASTATIN 40 MG TAB PO SCH (21:29)
[2019-07-02] MEDS: MELATONIN 5 MG TABLET PO SCH (21:29)
[2019-07-03] MEDS: METOPROLOL SUCCINATE (ER) 25 MG TAB.ER.24H PO SCH (10:19)
[2019-07-03] MEDS: OLANZapine 5 MG TAB PO SCH (10:19)
[2019-07-03] MEDS: DULoxetine HCL 30 MG CAPSULE.DR PO SCH ×2 (10:19→21:14)
[2019-07-03] MEDS: ASPIRIN 81 MG PO SCH (10:19)
--- NOTE | 2019-07-03 10:38 | P.PN ---
Progress Note - Text Progress Note Date: 07/03/19 Clinical Problems: Suicidal ideation, major depressive disorder recurrent severe with psychotic features, alcohol use disorder severe, cocaine use disorder severe, poor compliance with mental health treatment Interim history: I reviewed the medical record and interviewed the patient. He would not get out of bed for the interview but was more communicative than prior encounters. He complained of "voices". He alleged that the "voices" were telling him last night to kill himself. Currently, he experiences the "voices" as a mumbling. He admitted to continued feelings of depression. He only gets out of bed for meals and for medications including requesting when necessary Ativan He is "forcing" himself to eat meals and has no interest in engaging in therapeutic activities or interacting with staff or peers. Mental status exam: He presented as a withdrawn and minimally cooperative mi ddle-aged -Spanish male. He is laying in bed and made some eye contact. He engaged superficially in the interview and provided little information. He described feelings of hopelessness, helplessness and worthlessness. He feels anergic and anhedonic. Although he complains of "voices" he does not appear to be responding to internal stimuli. Assessment: He is severely mentally ill man minimally improve from admission. He remains withdrawn and depressed and complaining of command hallucinations Plan: Continue inpatient treatment. Continue safety precautions. Tinea current psychotropic medications. Encourage participation in therapeutic groups and activities. Evaluate clinical status response to treatment daily basis.
[2019-07-03] MEDS: LORazepam 1 MG TAB PO PRN (18:30)
[2019-07-03] MEDS: MELATONIN 5 MG TABLET PO SCH (21:14)
[2019-07-03] MEDS: ATORVASTATIN 40 MG TAB PO SCH (21:14)
[2019-07-04] MEDS: OLANZapine 5 MG TAB PO SCH (08:15)
[2019-07-04] MEDS: DULoxetine HCL 30 MG CAPSULE.DR PO SCH ×2 (08:15→19:56)
[2019-07-04] MEDS: METOPROLOL SUCCINATE (ER) 25 MG TAB.ER.24H PO SCH (08:15)
[2019-07-04] MEDS: ASPIRIN 81 MG PO SCH (08:16)
[2019-07-04] MEDS ORDERED: LORazepam 0.5 MG TAB PO PRN (10:14)
--- NOTE | 2019-07-04 10:19 | P.PN ---
Progress Note - Text Progress Note Date: 07/04/19 Clinical Problems: Major depressive disorder recurrent severe with psychotic features, alcohol use disorder severe, cocaine use disorder severe, poor compliance with mental health treatment Interim history: I reviewed the medical record and interviewed the patient. He would not get out of bed for the interview but stated that he is "doing better". He also alleged that he continues to have "voices" that he experiences as a mumbling where he cannot distinguish words or phrases. He admitted to continued feelings of depression. He only gets out of bed for meals or medications including requesting when necessary Ativan. He does not attend therapeutic groups or activities and does not interact with staff or peers. The last 2 CIWA scores were 0. Mental status exam: He presented as a withdrawn and minimally cooperative middle-aged -Guyanese male. He is laying in bed and made some eye contact. He engaged superficially in the interview and provided little information. He described feelings of hopelessness, helplessness and worthlessness. He feels anergic and anhedonic. Although he complains of "voices" he does not appear to be responding to internal stimuli. Assessment: He remains withdrawn and depressed and complaining of command hallucinations Plan: Continue inpatient treatment. Continue safety precautions. Discontinue CIWA. Change Ativan order to 0.5 mg 3 times a day when necessary for anxiety. Continue duloxetine 30 mg twice a day, Zyprexa 15 mg daily and melatonin 10 mg at bedtime. Encourage participation in therapeutic groups and activities. Evaluate clinical status response to treatment daily basis.
[2019-07-04] MEDS: ATORVASTATIN 40 MG TAB PO SCH (19:56)
[2019-07-04] MEDS: MELATONIN 5 MG TABLET PO SCH (19:56)
[2019-07-05] MEDS: DULoxetine HCL 30 MG CAPSULE.DR PO SCH ×2 (07:59→20:11)
[2019-07-05] MEDS: OLANZapine 5 MG TAB PO SCH (07:59)
[2019-07-05] MEDS: ASPIRIN 81 MG PO SCH (07:59)
[2019-07-05] MEDS: METOPROLOL SUCCINATE (ER) 25 MG TAB.ER.24H PO SCH (08:00)
--- NOTE | 2019-07-05 11:25 | P.PN ---
Progress Note - Text Progress Note Date: 07/05/19 Clinical Problems: Major depressive disorder recurrent severe with psychotic features, alcohol use disorder severe, cocaine use disorder severe, poor compliance with mental health treatment Interim history: I reviewed the medical record and interviewed the patient. He sat up on the side of his bed for the interview (he would not come into the office). He reported that he is "feeling better" although he "did not sleep last night." He requested "something for sleep." He denied that he is hearing voices or having thoughts of or suicide. Although he has not attended therapeutic groups or activities since admission he stated that he "feels like trying today." He slept 5 hours last night. He's been compliant with prescribed medications. Mental status exam: He presented as a withdrawn and minimally cooperative middle-aged -Argentine male. He was sitting on the edge of his bed and made eye contact. He engaged superficially in the interview. He feels anergic and anhedonic. He denied auditory hallucinations and did not appear to be responding to internal stimuli. Assessment: He remains withdrawn and depressed but is no longer complained of hallucinations. Plan: Continue inpatient treatment. Continue safety precautions. Decrease Ativan to 0.5 mg twice a day when necessary for anxiety. Continue duloxetine 30 mg twice a day, Zyprexa 15 mg daily and melatonin 10 mg at bedtime. Encourage participation in therapeutic groups and activities. Evaluate clinical status response to treatment daily basis.
[2019-07-05] MEDS: MELATONIN 5 MG TABLET PO SCH (20:11)
[2019-07-05] MEDS: LORazepam 0.5 MG TAB PO SCH (20:11)
[2019-07-05] MEDS: ATORVASTATIN 40 MG TAB PO SCH (20:12)
[2019-07-06] MEDS: LORazepam 0.5 MG TAB PO SCH ×2 (08:00→20:41)
[2019-07-06] MEDS: DULoxetine HCL 30 MG CAPSULE.DR PO SCH ×2 (08:00→20:41)
[2019-07-06] MEDS: ASPIRIN 81 MG PO SCH (08:00)
[2019-07-06] MEDS: METOPROLOL SUCCINATE (ER) 25 MG TAB.ER.24H PO SCH (08:00)
[2019-07-06] MEDS: OLANZapine 5 MG TAB PO SCH (08:01)
--- NOTE | 2019-07-06 12:34 | P.PN ---
Progress Note - Text Progress Note Date: 07/06/19 Clinical Problems: Major depressive disorder recurrent severe with psychotic features, alcohol use disorder severe, cocaine use disorder severe, poor compliance with mental health treatment Interim history: I reviewed the medical record and interviewed the patient. He came to my office for the interview. He "slept well" last night. He is grieving the of his father who in [place] about 2 weeks prior to admission. This led to discussion of other losses including his mother as well as his son. The. His father appears to rekindled his grief over his son's . In addition, he is overwhelmed by the stress of the [id number] order. 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 Due to the current pandemic temple is closed and all the activities that he formerly engaged have been suspended. He feels depressed but denied thoughts of or suicide. He has been compliant with prescribed medications. He has not been attending therapeutic groups and activities. Mental status exam: He presented as a casually groomed tall and thin - Camero[place] male who was pleasant on approach. He made eye contact and attended the interview. He had no distinguishing features or prominent physical abnormalities. He had a sad facial expression. He was alert and oriented to person, place and time. He had psychomotor retardation but no abnormal involuntary movements. His speech was spontaneous, slow with decreased volume. His affect was depressed and not reactive. He denied current suicidal ideation or wishes. He expressed feelings of hopelessness and helplessness but denied feeling worthless. He ruminated over his many losses. He did not express ideas reference, paranoid ideation or delusions. His thinking was concrete but his associations were coherent and logical. He denied experiencing current auditory hallucinations and did not appear to be responding to internal stimuli. Assessment: He appears less this depressed and withdrawn than on prior encounters. Plan: Continue inpatient treatment. Continue safety precautions. Continue Ativan to 0.5 mg twice a day when necessary for anxiety. Continue duloxetine 30 mg twice a day, Zyprexa 15 mg daily and melatonin 10 mg at bedtime. Encourage participation in therapeutic groups and activities. Evaluate clinical status response to treatment daily basis.
[2019-07-06] MEDS: ATORVASTATIN 40 MG TAB PO SCH (20:41)
[2019-07-06] MEDS: MELATONIN 5 MG TABLET PO SCH (20:41)
[2019-07-07] MEDS: METOPROLOL SUCCINATE (ER) 25 MG TAB.ER.24H PO SCH (08:17)
[2019-07-07] MEDS: DULoxetine HCL 30 MG CAPSULE.DR PO SCH ×2 (08:17→20:51)
[2019-07-07] MEDS: LORazepam 0.5 MG TAB PO SCH (08:17)
[2019-07-07] MEDS: ASPIRIN 81 MG PO SCH (08:17)
[2019-07-07] MEDS: OLANZapine 5 MG TAB PO SCH (08:18)
--- NOTE | 2019-07-07 11:22 | P.PN ---
Progress Note - Text Progress Note Date: 07/07/19 Clinical Problems: Major depressive disorder recurrent severe with psychotic features, alcohol use disorder severe, cocaine use disorder severe, poor compliance with mental health treatment Interim history: I reviewed the medical record and interviewed the patient. He came to my office for the interview. He requested to stay in the hospital until Thursday. He complained that he has been hospitalized frequently because he is always discharged "too soon". He believes that a follow-up in hospital longer than he is less likely to be readmitted. I explained that we use to make decisions on hospital stay based upon the patient's clinical condition and I can't promise that he would remain in hospital that long. He reported good sleep but continues feel depressed, sad and hopeless. He denied currently experiencing suicidal thoughts. I tried to engage in a discussion of the events that may have led to his admission. He vaguely talked about "bad influence" of cousins. When I asked what he meant by "bad influence" he replied that the drink. He denied that he is at risk for relapse into alcohol and antidepressant. Mental status exam: He presented as a casually groomed tall and thin - Barbadian male who was pleasant on approach. He made eye contact and attended the interview. He had a sad facial expression. He was alert and oriented to person, place and time. He had psychomotor retardation but no abnormal involuntary movements. His speech was spontaneous with normal rate and rhythm. His affect was depressed. He denied current suicidal ideation or wishes. He expressed feelings of hopelessness and helplessness but denied feeling worthless. He ruminated over his many losses. He did not express ideas reference, paranoid ideation or delusions. His thinking was concrete but his associations were coherent and logical. He denied experiencing current auditory hallucinations and did not appear to be responding to internal stimuli. Assessment: He is less depressed and withdrawn than on admission. His mom longer expressing suicidal thoughts or wishes. Plan: Continue inpatient treatment. Continue safety precautions. Discontinue Ativan to 0.5 mg twice a day when necessary for anxiety. Continue duloxetine 30 mg twice a day, Zyprexa 15 mg daily and melatonin 10 mg at bedtime. Encourage participation in therapeutic groups and activities. Evaluate clinical status response to treatment daily basis.
[2019-07-07] MEDS: ATORVASTATIN 40 MG TAB PO SCH (20:50)
[2019-07-07] MEDS: MELATONIN 5 MG TABLET PO SCH (20:50)
[2019-07-08] MEDS: METOPROLOL SUCCINATE (ER) 25 MG TAB.ER.24H PO SCH (08:28)
[2019-07-08] MEDS: ASPIRIN 81 MG PO SCH (08:28)
[2019-07-08] MEDS: DULoxetine HCL 30 MG CAPSULE.DR PO SCH ×2 (08:28→20:52)
[2019-07-08] MEDS: OLANZapine 5 MG TAB PO SCH ×2 (08:29→20:52)
[2019-07-08] MEDS ORDERED: OLANZapine 5 MG TAB PO SCH (12:15)
[2019-07-08] MEDS ORDERED: OLANZapine 5 MG TAB PO STA (12:45)
--- NOTE | 2019-07-08 13:35 | P.PN ---
Progress Note - Text Progress Note Date: 07/08/19 Clinical Problems: Major depressive disorder recurrent severe with psychotic features, alcohol use disorder severe, cocaine use disorder severe, poor compliance with mental health treatment Interim history: I reviewed the medical record, interviewed the patient and discuss his treatment and treatment plan during team meeting. He came to my office for the interview. He complained of worsening depression and recurrence of auditory hallucinations. He alleged that he is hearing the statement "kill yourself" over and over in his mind. Last night he was so distressed by this experience city obtained 20 mg of Geodon IM. He alleged that if he were discharged he would act on these commands. He became angry when I pressed him on the circumstances that led to this hospitalization. He perseverated on losses but this time alleged that he is "all alone" and "nobody cares about me." Apparently he and his girlfriend "couple months ago". As during prior encounters he is very vague and withholding of detailed information. Mental status exam: He presented as a casually groomed tall and thin - Syrian male who was pleasant on approach. He made eye contact and attended the interview. He had a sad facial expression. He was alert and oriented to person, place and time. He had psychomotor retardation but no abnormal involuntary movements. His speech was spontaneous with normal rate and rhythm. His affect was depressed. He denied current suicidal ideation or wishes. He expressed feelings of hopelessness and helplessness but denied feeling worthless. He ruminated over his many losses. He did not express ideas reference, paranoid ideation or delusions. His thinking was concrete but his associations were coherent and logical. He described auditory hallucinations and did not appear to be responding to internal stimuli. Assessment: He Is more distressed and yesterday. I suspect that he is attempting to prolong this hospitalization for an unexplained reason but unfortunately is alleging command auditory hallucinations and suicidal thoughts. Plan: Continue inpatient treatment. Continue safety precautions. Increase Zyprexa to 15 mg twice a day and order a 1 time 5 mg dose. Continue duloxetine 30 mg twice a day and melatonin 10 mg at bedtime. Encourage participation in therapeutic groups and activities. Evaluate clinical status response to treatment daily basis.
[2019-07-08 14:13] VITALS: BMI 22.6
[2019-07-08] MEDS: ATORVASTATIN 40 MG TAB PO SCH (20:52)
[2019-07-08] MEDS: MELATONIN 5 MG TABLET PO SCH (20:52)
[2019-07-09] MEDS: OLANZapine 5 MG TAB PO SCH ×2 (08:49→20:58)
[2019-07-09] MEDS: DULoxetine HCL 30 MG CAPSULE.DR PO SCH ×2 (08:49→20:59)
[2019-07-09] MEDS: ASPIRIN 81 MG PO SCH (08:50)
[2019-07-09] MEDS: METOPROLOL SUCCINATE (ER) 25 MG TAB.ER.24H PO SCH (08:50)
--- NOTE | 2019-07-09 19:15 | P.PN ---
Progress Note - Text Progress Note Date: 07/09/19 Interval history: Patient is seen in cross coverage today. He reports that he is sleeping and eating well. He does not verbalize any adverse psychotropic medication side effects of the dry mouth. Mental status exam: He is alert and cooperative with the interview. Speech is fluent, not rapid or pressured. Thought processes are organized. Mood he describes is improved. He denies any thoughts of harm to self or others. He denies any hallucinations. He does not display any agitation. Plan: Patient will be maintained on current psychotropic medication regimen. Continue to monitor for any medication side effects and monitor his ongoing response
[2019-07-09] MEDS: MELATONIN 5 MG TABLET PO SCH (20:59)
[2019-07-09] MEDS: ATORVASTATIN 40 MG TAB PO SCH (20:59)
[2019-07-10] MEDS: DULoxetine HCL 30 MG CAPSULE.DR PO SCH ×2 (08:32→20:58)
[2019-07-10] MEDS: ASPIRIN 81 MG PO SCH (08:32)
[2019-07-10] MEDS: OLANZapine 5 MG TAB PO SCH ×2 (08:32→20:58)
[2019-07-10] MEDS: METOPROLOL SUCCINATE (ER) 25 MG TAB.ER.24H PO SCH (08:33)
--- NOTE | 2019-07-10 20:08 | P.PN ---
Progress Note - Text Progress Note Date: 07/10/19 Interval history: Patient reports that he does feel he'll be ready for discharge tomorrow. He does not verbalize any adverse psychotropic medication side effects. He relays that he hasn't been having any auditory hallucinations. Mental status exam: He is alert and cooperative with the interview. His speech is fluent, not rapid or pressured. Thought processes organized. His mood he describes is good. He denies any thoughts of harm to self or others he denies any auditory hallucinations. He does not display any agitation. Plan: Patient will be maintained on current psychotropic medication regimen. Continue to monitor for any medication side effects and continue to monitor his ongoing response to treatment. Discharge planning for likely for tomorrow.
[2019-07-10] MEDS: ATORVASTATIN 40 MG TAB PO SCH (20:58)
[2019-07-10] MEDS: MELATONIN 5 MG TABLET PO SCH (20:58)
[2019-07-11 06:37] VITALS: BP 115/66; PULSE 66; RESP 16; TEMP 99.1
[2019-07-11] MEDS: ASPIRIN 81 MG PO SCH (08:40)
[2019-07-11] MEDS: METOPROLOL SUCCINATE (ER) 25 MG TAB.ER.24H PO SCH (08:40)
[2019-07-11] MEDS: DULoxetine HCL 30 MG CAPSULE.DR PO SCH (08:40)
[2019-07-11] MEDS: OLANZapine 5 MG TAB PO SCH (08:41)
--- NOTE | 2019-07-11 15:14 | P.DS ---
Providers Date of admission: 06/30/19 14:42 Attending physician: Martín Lowry MD Consults: 06/30/19 15:12 Consult Physician Routine Consulting Provider: [facility] Consult Reason/Comments: H&P & medical management Do you want consulting provider notified?: Yes Primary care physician: [facility] - Discharge Diagnosis(es) (1) Alcohol dependence Status: Chronic Priority: High (2) Alcohol intoxication Status: Resolved Priority: Low (3) Cocaine use disorder Status: Chronic Priority: High (4) Depression Status: Chronic Priority: Low Hospital Course: The patient is a 58-year-old single [place] male who is well known to this service from multiple past admissions. He presented with complaints of suicidal ideation and auditory hallucinations. He told the EPS nurse that was hearing voices telling him to "hurt himself". He "called the police" and when the police did not arrived promptly he alleged that the "voices" told him to run in front of traffic. He was not injured because he alleged that the automobile meals on wheels driver's avoided him. He complained of continued feelings of depression and thoughts of and suicide. He is vague and guarded during interview and avoided talking about suicidal thoughts and would not talk about or plan.. He alleged that he is hopeless, helpless and feels worthless. He gave various accounts of the temporal development of his symptoms. He alleged during our interview that he's been depressed since he was last discharged from this unit. He alleged that depression worsened after his father "a month ago" He told the APS nurse that he's been depressed since about this father 2 months ago. He has an extensive history of alcohol and cocaine use problems. He minimizes his alcohol and cocaine use during her interview alleging that he drank "some" and used cocaine "once". His breath alcohol level was 0.182 and his UDS was p ositive for cocaine. He described a general sense of anxiety and tension but denied experiencing panic attacks. He would not answer questions about other psychotic symptoms such as ideas reference, thought insertion, thought broadcasting and thought control. He did not express experiencing obsessions or compulsions. He has had at least 15 admissions to this unit. The last was in March 2019 when he is discharged with diagnoses of major depressive disorder, alcohol abuse, cannabis abuse, cocaine abuse and dependence. He did not continue with his discharge medicines after his last psychiatric hospitalizations and did not follow through with outpatient treatment. According to the [facility] mental health records he has been hospitalized 4 times since February 2019. He has not followed through with outpatient treatment at [facility] except for an intake appointment on 06/21/2019. According to social work he was placed on an alternate treatment order when he is hospitalized at [facility] in [facility] in February 2019. We admitted him to the psychiatric unit under care of this proposal writer. Provided a copy has a biopsychosocial assessment. The interventional sale consultant paradichlorobenzene machine operator completed initial physical exam and medical history and diagnosis history of CAD with stent placement and tobacco use. Quality Control Coordinator started the patient on low-dose aspirin and Lipitor 40 mg at bedtime. Resumed his outpatient medications and titrated the Zyprexa 15 mg twice a day and duloxetine 30 mg twice a day. He remained in his room coming out only for meals and medication during much of the hospitalization. When he came out of his room and began to socialize he resisted discharge. Whenever I brought up discharge he began to complain of suicidal ideation. He was fixated on being discharge today. I suspect is related to his Social Security payments. Time of discharge she presented as a tall casually groomed -Mexican male who was pleasant on approach. He made eye contact and attended to the interview. He had no distinguishing features or prominent physical abnormalities. He had a blunted but bright facial expression. He was alert and oriented to person, place and time. He showed no abnormality of psychomotor activity. Her speech was slow but with normal volume. His affect was blunted but stable and appropriate. He denied suicidal ideation or wishes. He denied feeling hopeless, helpless or worthless. He denied express ideas reference, paranoid ideation or delusions. His thinking was concrete but his associations were coherent and logical. He denied hallucinations did not appear to be responding to internal stimuli. Patient Condition at Discharge: Stable Plan - Discharge Summary New Discharge Prescriptions: Fausto DULoxetine HCL [Cymbalta] 30 mg PO BID #60 capsule. Atorvastatin [Lipitor] 40 mg PO HS #30 tab OLANZapine [ZyPREXA] 15 mg PO BID #180 tab Continue Budesonide/Formoterol Fumarate [Symbicort 160-4.5 Mcg Inhaler] 2 puff INHALATION RT-BID Albuterol Sulfate [Ventolin HFA] 1 - 2 puff INHALATION RT-Q6H PRN PRN Reason: Shortness Of Breath Aspirin 81 mg PO DAILY 28 Days chew Folic Acid 1 mg PO DAILY tab Melatonin 10 mg PO HS 28 Days tablet Multivitamins, Thera [Multivitamin (formulary)] 1 each PO DAILY tab Nicotine Polacrilex [Nicorette] 2 mg BUCCAL Q4HR PRN 14 Days gum PRN Reason: Nicotine Cravings Metoprolol Succinate (ER) [Toprol XL] 12.5 mg PO DAILY 28 Days tab.er.24h Acetaminophen Tab [Tylenol] 650 mg PO Q4HR PRN tab PRN Reason: Pain/Discomfort Thiamine [Vitamin B-1] 100 mg PO DAILY tab Discontinued DULoxetine HCL [Cymbalta] 90 mg PO HS 28 Days cap OLANZapine 15 mg PO HS #28 tablet Discharge Medication List Albuterol Sulfate [Ventolin HFA] 1 - 2 puff INHALATION RT-Q6H PRN 03/14/19 [History] Budesonide/Formoterol Fumarate [Symbicort 160-4.5 Mcg Inhaler] 2 puff INHALATION RT-BID 03/14/19 [History] Acetaminophen Tab [Tylenol] 650 mg PO Q4HR PRN tab 03/29/19 [Rx] Aspirin 81 mg PO DAILY 28 Days chew 03/29/19 [Rx] Folic Acid 1 mg PO DAILY tab 03/29/19 [Rx] Melatonin 10 mg PO HS 28 Days tablet 03/29/19 [Rx] Metoprolol Succinate (ER) [Toprol XL] 12.5 mg PO DAILY 28 Days tab.er.24h 03/29/19 [Rx] Multivitamins, Thera [Multivitamin (formulary)] 1 each PO DAILY tab 03/29/19 [Rx] Nicotine Polacrilex [Nicorette] 2 mg BUCCAL Q4HR PRN 14 Days gum 03/29/19 [Rx] Thiamine [Vitamin B-1] 100 mg PO DAILY tab 03/29/19 [Rx] Atorvastatin [Lipitor] 40 mg PO HS #30 tab 07/11/19 [Rx] DULoxetine HCL [Cymbalta] 30 mg PO BID #60 anitha. 07/11/19 [Rx] OLANZapine [ZyPREXA] 15 mg PO BID #180 tab 07/11/19 [Rx] Follow up Appointment(s)/Referral(s): [facility] [Outside] - 07/14/19 8:00 am (Lele will now see Dr Fatima on 07-14-19 @ 8:00 via [employer] [facility] at [facility] office. ) [facility] [Primary Care Provider] - 1-2 days Patient Instructions/Handouts: Depression (DC), Suicide Prevention (DC) Activity/Diet/Wound Care/Special Instructions: Activity and diet as tolerated. Avoid the use of street drugs and alcohol. Take all medications as prescribed. When you are in need of refills on your medications please contact your medical provider and/or outpatient psychiatrist to have this done. Please go to scheduled outpatient appointment for aftercare treatment. If symptoms return or become worse, call the crisis line at [phone] and/or go to the nearest emergency room for evaluation Discharge Disposition: HOME SELF-CARE
== END 2019-07-11 08:55 | disposition home or self-care (01) | DRG 885 ==
LOC: EC 01:20 → 3MHU 14:42
PROVIDERS: ADMIT Psychiatry & Neurology Psychiatry; ATTEND Psychiatry & Neurology Psychiatry
DX: F33.3 Major depressive disorder, recurrent, severe with psychotic symptoms (principal); F14.20 Cocaine dependence, uncomplicated; R45.851 Suicidal ideations; Z91.19 Patient's noncompliance with other medical treatment and regimen; F10.229 Alcohol dependence with intoxication, unspecified; I25.10 Atherosclerotic heart disease of native coronary artery without angina pectoris; E78.5 Hyperlipidemia, unspecified; I25.2 Old myocardial infarction; M19.90 Unspecified osteoarthritis, unspecified site; F12.10 Cannabis abuse, uncomplicated; Y90.6 Blood alcohol level of 120-199 mg/100 ml; F17.210 Nicotine dependence, cigarettes, uncomplicated; Z79.82 Long term (current) use of aspirin; Z79.51 Long term (current) use of inhaled steroids; Z79.899 Other long term (current) drug therapy; Z86.010 Personal history of colon polyps; Z95.5 Presence of coronary angioplasty implant and graft; Z90.49 Acquired absence of other specified parts of digestive tract; Z98.890 Other specified postprocedural states; Z88.8 Allergy status to other drugs, medicaments and biological substances; Z91.018 Allergy to other foods; Z82.49 Family history of ischemic heart disease and other diseases of the circulatory system; Z83.6 Family history of other diseases of the respiratory system; Z81.1 Family history of alcohol abuse and dependence; Z81.8 Family history of other mental and behavioral disorders
CPT/HCPCS: 80306; 82075; 96372; 99285

== ENCOUNTER 2019-09-10 21:45 | Inpatient (IN) | payer MEDICARE, OTHER ==
[2019-09-10] MEDS ORDERED: SODIUM CHLORIDE 0.9% 1,000 ML IV STA ×2 (22:18)
[2019-09-10] MEDS ORDERED: ASPIRIN 81 MG PO STA (22:18)
--- NOTE | 2019-09-10 22:30 | ED ---
Chest Pain HPI - General Chief Complaint: Chest Pain Stated Complaint: Chest Pain Time Seen by Provider: 09/10/19 21:59 Source: patient, RN notes reviewed, old records reviewed Mode of arrival: EMS Limitations: altered mental status - History of Present Illness Initial Comments: 59-year-old male presents emergency department today chest pain, suicidal i deation and alcohol intoxication. Patient reports chest pain started yesterday after smoking crack. Patient reports is also hearing voices, and is not compliant with his psychiatric medications. Patient has a history of stents in his heart. Patient reports that they were done and [facility] or [place]. Patient states that he has a history of alcohol abuse as well. He states that he is currently staying at a friend's house. She still is having current chest pain. - Related Data Home Medications Medication Instructions Recorded Confirmed Albuterol Sulfate [Ventolin HFA] 1 - 2 puff INHALATION RT-Q6H PRN 03/14/19 03/14/19 Budesonide/Formoterol Fumarate 2 puff INHALATION RT-BID 03/14/19 03/14/19 [Symbicort 160-4.5 Mcg Inhaler] Previous Rx's Medication Instructions Recorded Acetaminophen Tab [Tylenol] 650 mg PO Q4HR PRN tab 03/29/19 Aspirin 81 mg PO DAILY 28 Days chew 03/29/19 Folic Acid 1 mg PO DAILY tab 03/29/19 Melatonin 10 mg PO HS 28 Days tablet 03/29/19 Metoprolol Succinate (ER) [Toprol 12.5 mg PO DAILY 28 Days 03/29/19 XL] tab.er.24h Multivitamins, Thera [Multivitamin 1 each PO DAILY tab 03/29/19 (formulary)] Nicotine Polacrilex [Nicorette] 2 mg BUCCAL Q4HR PRN 14 Days gum 03/29/19 Thiamine [Vitamin B-1] 100 mg PO DAILY tab 03/29/19 Atorvastatin [Lipitor] 40 mg PO HS #30 tab 07/11/19 DULoxetine HCL [Cymbalta] 30 mg PO BID #60 capsule. 07/11/19 OLANZapine [ZyPREXA] 15 mg PO BID #180 tab 07/11/19 Allergies Allergy/AdvReac Type Severity Reaction Status Date / Time blueberry Allergy Rash/Hives Verified 06/30/19 01:32 nitroglycerin Allergy Swelling Verified 06/30/19 01:32 Review of Systems ROS Statement: Those systems with pertinent positive or pertinent negative responses have been documented in the HPI. ROS Other: All systems not noted in ROS Statement are negative. EKG Findings - EKG Comments: EKG Findings:: EKG performed at 2154 shows normal sinus rhythm prolonged QT. Abnormal EKG. Ventricular rate of 96 bpm.. Intervals 154 ms. QRS duration is 98 ms. QT QTc is 392/4 95 ms. Past Medical History Past Medical History: Coronary Artery Disease (CAD), Chest Pain / Angina, Hyperlipidemia, Myocardial Infarction ([place]), Osteoarthritis (OA) Additional Past Medical History / Comment(s): Pt denies COPD, arthritis in back and bilateral knees, benign colon polyps Last Myocardial Infarction Date:: 2004 History of Any Multi-Drug Resistant Organisms: None Reported Past Surgical History: Bowel Resection, Heart Catheterization With Stent Additional Past Surgical History / Comment(s): Cardiac stents x 3, bowel surgery for pinpoint hole in bowel, L knee arthroscopy, colonoscopy/benign polypectomies. Past Anesthesia/Blood Transfusion Reactions: No Reported Reaction Date of Last Stent Placement:: 2013 Past Psychological History: Bipolar, Depression, Schizophrenia Smoking Status: Current every day smoker Past Alcohol Use History: Heavy Past Drug Use History: Cocaine, Marijuana - Past Family History Father Family Medical History: Respiratory Disorder Additional Family Medical History / Comment(s): Father at age 64 from Black lung disease Mother Family Medical History: Myocardial Infarction ([place]) Additional Family Medical History / Comment(s): Mother of an [place] at 78yrs old. Brother(s) Family Medical History: Myocardial Infarction ([place]) Additional Family Medical History / Comment(s): Patient has 10 brothers and 2 from myocardial infarction and had history of alcoholism. Sister(s) Additional Family Medical History / Comment(s): He has 7 sisters that are alive with no major medical problems. He has one son that has and one daughter that is alive and okay. General Exam - General Exam Comments Initial Comments: Patient is a 59-year-old male. Patient is intoxicated. Patient is stating he is hearing voices. Limitations: altered mental status General appearance: alert, in no apparent distress Head exam: Present: atraumatic, normocephalic, normal inspection Eye exam: Present: normal appearance, PERRL, EOMI. Absent: scleral icterus, conjunctival injection, periorbital swelling ENT exam: Present: normal exam, mucous membranes moist Neck exam: Present: normal inspection. Absent: tenderness, meningismus, lymphadenopathy Respiratory exam: Present: normal lung sounds bilaterally. Absent: respiratory distress, wheezes, rales, rhonchi, stridor Cardiovascular Exam: Present: regular rate, normal rhythm, normal heart sounds. Absent: systolic murmur, diastolic murmur, rubs, gallop, clicks GI/Abdominal exam: Present: soft, normal bowel sounds. Absent: distended, tenderness, guarding, rebound, rigid Extremities exam: Present: normal inspection, full ROM, normal capillary refill. Absent: tenderness, pedal edema, joint swelling, calf tenderness Back exam: Present: normal inspection Neurological exam: Present: alert, oriented X3, CN II-XII intact Psychiatric exam: Present: normal mood, depressed, anxious (Patient stating he is suicidal. ). Absent: normal affect Skin exam: Present: warm, dry, intact, normal color. Absent: rash Course Vital Signs 09/10/19 22:12 Temperature 98.9 F Pulse Rate 87 Respiratory 20 Rate Blood Pressure 116/84 O2 Sat by Pulse 97 Oximetry Chest Pain MDM - MDM Patient is a 5-year-old male who presents emergency room today with concerns for chest pain after smoking crack cocaine yesterday. He states he saw his reported chest pain. Reports she's had this time to time with using cocaine. He also arrives to emergency department with intoxication, stating he is suicidal. Patient had a cardiac workup completed. Aside the significant troponin elevation of 0.178. There is no significant initial EKG changes. Patient case was discussed Dr. Trevizo. Patient started on heparin at this time. He does have a previous cardiac history, and states that he does have stents placeD AT OTHER HOSPITALS. Patient is intoxicated so for her history is not complete. Disposition Clinical Impression: NSTEMI (non-ST elevated myocardial infarction), Cocaine use, Alcohol abuse, Suicidal risk Disposition: ADMITTED IP TO THIS HOSP Condition: Stable Is patient prescribed a controlled substance at d/c from ED?: No Referrals: Nonstaff,Physician [Primary Care Provider] - 1-2 days Time of Disposition: 23:42
[2019-09-10 22:37] LABS: Amphetamine Screen,Urine Not Detected (NotDetected); Barbiturate Screen,Urine Not Detected (NotDetected); Benzodiazepines Screen,Urine Not Detected (NotDetected); Cocaine Screen,Urine Detected (NotDetected); Methadone Screen, Urine Not Detected (NotDetected); Opiate Screen,Urine Not Detected (NotDetected); Oxycodone Screen, Urine Not Detected (NotDetected); Phencyclidine Screen,Urine Not Detected (NotDetected); Tricyclic Antidepressant,Urine Not Detected (NotDetected); Urn Cannabinoid Scrn Not Detected (NotDetected)
[2019-09-10 22:49] LABS: Basophils % (A) 0 %; Eosinophils % (A) 1 %; HCT 36.9 % (39.0-53.0); HGB 11.7 gm/dL (13.0-17.5); Lymphocytes # (A) 1.5 k/uL (1.0-4.8); Lymphocytes % (A) 25 %; MCH 30.5 pg (25.0-35.0); MCHC 31.8 g/dL (31.0-37.0); MCV 95.9 fL (80.0-100.0); Mean Platelet Volume 7.7; Monocytes # (A) 0.4 k/uL (0-1.0); Monocytes % (A) 7 %; Neutrophils # (A) 3.9 k/uL (1.3-7.7); Neutrophils % (A) 63 %; Platelet Count 191 k/uL (150-450); RBC 3.85 m/uL (4.30-5.90); RDW 15.1 % (11.5-15.5); WBC 6.2 k/uL (3.8-10.6)
[2019-09-10 23:05] LABS: ALT 12 U/L (4-49); AST 44 U/L (17-59); African American GFR (CKD) >90 (>60 ml/min/1.73 sqM); Albumin 4.4 g/dL (3.5-5.0); Alkaline Phosphatase 47 U/L (38-126); Anion Gap 10 mmol/L; Blood Urea Nitrogen 6 mg/dL (9-20); Calcium 9.4 mg/dL (8.4-10.2); Carbon Dioxide 21 mmol/L (22-30); Chloride 109 mmol/L (98-107); Glucose 88 mg/dL (74-99); Magnesium 1.9 mg/dL (1.6-2.3); Non-African American GFR(CKD) >90 (>60 ml/min/1.73 sqM); Potassium 3.9 mmol/L (3.5-5.1); Sodium 140 mmol/L (137-145); Total Bilirubin 0.4 mg/dL (0.2-1.3); Total Protein 7.5 g/dL (6.3-8.2)
[2019-09-10 23:11] LABS: Prothrombin Time 10.5 sec (9.0-12.0)
--- NOTE | 2019-09-10 23:13 | XR ---
EXAMINATION TYPE: XR chest 2V DATE OF EXAM: 09/10/2019 COMPARISON: 12/12/2018 HISTORY: Chest pain TECHNIQUE: FINDINGS: Heart and mediastinum are normal. Lungs are clear. Diaphragm is normal. Bony thorax appears normal. IMPRESSION: Normal chest. No change.
[2019-09-10 23:24] LABS: Partial Thromboplastin Time 20.2 sec (22.0-30.0)
[2019-09-10] MEDS ORDERED: HEPARIN SODIUM,PORCINE 5,000 UNIT/ML 1 ML VIAL IV PRN (23:37)
[2019-09-10] MEDS ORDERED: HEPARIN SODIUM,PORCINE 5,000 UNIT/ML 1 ML VIAL IV ONE (23:37)
[2019-09-10] MEDS ORDERED: NITROGLYCERIN SL TABS 0.4 MG TAB SUBLINGUAL PRN (23:44)
[2019-09-10] MEDS ORDERED: HEPARIN SOD,PORK IN 0.45% NACL 25,000 UNIT in 0.45% NACL 1 250ML.BAG IV SCH (23:45)
[2019-09-11] MEDS ORDERED: NITROGLYCERIN OINT 1 INCH/GM PACKET TOPICAL SCH
[2019-09-11] MEDS ORDERED: MORPHINE SULFATE 4 MG/ML SYRINGE IVP STA (00:17)
--- NOTE | 2019-09-11 01:13 | P.HPIM ---
History of Present Illness H&P Date: 09/11/19 Chief Complaint: chest pain 59 year old male wit CAD, s/o stent, depression , polysubstance abuse patient comes in due to off/on chest pain of 2 weeks duration , he reports exertional dyspnea resolved with rest. usually induced by walking or playing with his grandson. and improves with rest. pain is retrosternal non radiating 10/10 in severity , associated with nausea, and difficulty breathing. he does have history of heart disease s/p stents. He also admits to using cocaine 2 days ago. which he admits to using once in a while. he reports not taking any of his medications for the past 2 weeks, including his heart meds and psych meds he otherwise denies any fever, chills, diarrhea, abd pain , recent travel, or any sick contacts. in the ED , he was found to have elevated troponins and admitted for NSTEMI Review of Systems Pertinent positives as noted in HPI. All other systems were reviewed and are negative Past Medical History Past Medical History: Coronary Artery Disease (CAD), Chest Pain / Angina, Hyperlipidemia, Myocardial Infarction ([place]), Osteoarthritis ([place]) Additional Past Medical History / Comment(s): Pt denies COPD, arthritis in back and bilateral knees, benign colon polyps Last Myocardial Infarction Date:: 2004 History of Any Multi-Drug Resistant Organisms: None Reported Past Surgical History: Bowel Resection, Heart Catheterization With Stent Additional Past Surgical History / Comment(s): Cardiac stents x 3, bowel surgery for pinpoint hole in bowel, L knee arthroscopy, colonoscopy/benign polypectomies. Past Anesthesia/Blood Transfusion Reactions: No Reported Reaction Date of Last Stent Placement:: 2013 Past Psychological History: Bipolar, Depression, Schizophrenia Smoking Status: Current every day smoker Past Alcohol Use History: Heavy Past Drug Use History: Cocaine, Marijuana - Past Family History Father Family Medical History: Respiratory Disorder Additional Family Medical History / Comment(s): Father at age 64 from Black lung disease Mother Family Medical History: Myocardial Infarction ([place]) Additional Family Medical History / Comment(s): Mother of an [place] at 78yrs old. Brother(s) Family Medical History: Myocardial Infarction ([place]) Additional Family Medical History / Comment(s): Patient has 10 brothers and 2 from myocardial infarction and had history of alcoholism. Sister(s) Additional Family Medical History / Comment(s): He has 7 sisters that are alive with no major medical problems. He has one son that has and one daughter that is alive and okay. Medications and Allergies Home Medications Medication Instructions Recorded Confirmed Type Albuterol Sulfate [Ventolin HFA] 1 - 2 puff INHALATION RT-Q6H PRN 03/14/19 03/14/19 History Budesonide/Formoterol Fumarate 2 puff INHALATION RT-BID 03/14/19 03/14/19 History [Symbicort 160-4.5 Mcg Inhaler] Acetaminophen Tab [Tylenol] 650 mg PO Q4HR PRN tab 03/29/19 Rx Aspirin 81 mg PO DAILY 28 Days chew 03/29/19 Rx Folic Acid 1 mg PO DAILY tab 03/29/19 Rx Melatonin 10 mg PO HS 28 Days tablet 03/29/19 Rx Metoprolol Succinate (ER) [Toprol 12.5 mg PO DAILY 28 Days 03/29/19 Rx XL] tab.er.24h Multivitamins, Thera [Multivitamin 1 each PO DAILY tab 03/29/19 Rx (formulary)] Nicotine Polacrilex [Nicorette] 2 mg BUCCAL Q4HR PRN 14 Days gum 03/29/19 Rx Thiamine [Vitamin B-1] 100 mg PO DAILY tab 03/29/19 Rx Atorvastatin [Lipitor] 40 mg PO HS #30 tab 07/11/19 Rx DULoxetine HCL [Cymbalta] 30 mg PO BID #60 capsule. 07/11/19 Rx OLANZapine [ZyPREXA] 15 mg PO BID #180 tab 07/11/19 Rx Allergies Allergy/AdvReac Type Severity Reaction Status Date / Time blueberry Allergy Rash/Hives Verified 06/30/19 01:32 nitroglycerin Allergy Swelling Verified 06/30/19 01:32 Physical Exam Vitals: Vital Signs Temp Pulse Resp BP Pulse Ox 09/10/19 22:12 98.9 F 87 20 116/84 97 Intake and Output 09/10/19 09/10/19 09/11/19 14:59 22:59 06:59 Other: Weight 72.575 kg Constitutional: No acute distress, conversant, pleasant Eyes: Anicteric sclerae, moist conjunctiva, Pupils equal round reactive to light ENMT: NC/AT Oropharynx clear, no erythema, or exudates Neck: Supple, FROM, no masses, or JVD No carotid bruits No thyromegaly Lungs: Clear to auscultation Clear to percussion Normal respiratory effort, no accessory muscle use Cardiovascular: Heart regular in rate and rhythm, No murmurs, gallops, or rubs No peripheral edema Abdominal: Soft Nontender, no guarding, rebound or rigidity Abdomen moving with respiration Normoactive bowel sounds No hepatomegaly, No splenomegaly No palpable mass No abdominal wall hernia noted Skin: Normal temperature, tone, texture, turgor No induration No subcutaneous nodules No rash, lesions No ulcers Extremities: No digital cyanosis No clubbing Pedal pulses intact and symmetrical Radial pulses intact and symmetrical No calf tenderness Psychiatric: Alert and oriented to person, place and time Appropriate affect fair judgement Neuro Muscles Strength 5/5 in all 4 extremities Sensation to light touch grossly present throughout Cranial nerves II-XII grossly intact No focal sensory deficits Lymphatics: no palpable cervical or supraclavicular , or inguinal lymph nodes Results CBC & Chem 7: 09/10/19 22:42 09/10/19 22:42 Labs: Abnormal Lab Results - Last 24 Hours (Table) 09/10/19 09/10/19 09/10/19 Range/Units 22:21 22:42 22:42 RBC 3.85 L (4.30-5.90) m/uL Hgb 11.7 L (13.0-17.5) gm/dL Hct 36.9 L (39.0-53.0) % APTT 20.2 L (22.0-30.0) sec Chloride (98-107) mmol/L Carbon Dioxide (22-30) mmol/L BUN (9-20) mg/dL Creatinine (0.66-1.25) mg/dL Troponin I (0.000-0.034) ng/mL Urine Cocaine Screen Detected H (NotDetected) 09/10/19 09/10/19 Range/Units 22:42 22:42 RBC (4.30-5.90) m/uL Hgb (13.0-17.5) gm/dL Hct (39.0-53.0) % APTT (22.0-30.0) sec Chloride 109 H (98-107) mmol/L Carbon Dioxide 21 L (22-30) mmol/L BUN 6 L (9-20) mg/dL Creatinine 0.63 L (0.66-1.25) mg/dL Troponin I 0.178 H* (0.000-0.034) ng/mL Urine Cocaine Screen (NotDetected) Assessment and Plan Assessment: NSTEMI trend troponins 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
[2019-09-11] MEDS: ATORVASTATIN 40 MG TAB PO SCH ×2 (02:46→20:28)
[2019-09-11] MEDS: MORPHINE SULFATE 4 MG/ML SYRINGE IVP PRN ×2 (02:49→05:50)
[2019-09-11 07:27] LABS: Basophils % (A) 0 %; Eosinophils % (A) 1 %; HCT 35.3 % (39.0-53.0); HGB 11.1 gm/dL (13.0-17.5); Hypochromasia Slight; Lymphocytes # (A) 2.4 k/uL (1.0-4.8); Lymphocytes % (A) 46 %; MCH 31.1 pg (25.0-35.0); MCHC 31.5 g/dL (31.0-37.0); MCV 98.9 fL (80.0-100.0); Macrocytosis Slight; Monocytes # (A) 0.4 k/uL (0-1.0); Monocytes % (A) 7 %; Neutrophils # (A) 2.2 k/uL (1.3-7.7); Neutrophils % (A) 43 %; Platelet Count 173 k/uL (150-450); RBC 3.56 m/uL (4.30-5.90); RDW 15.2 % (11.5-15.5); WBC 5.2 k/uL (3.8-10.6)
[2019-09-11 07:37] LABS: Cholesterol 132 mg/dL (<200); HDL Cholesterol 98 mg/dL (40-60); LDL Cholesterol,Calculated 22 mg/dL (0-99); Triglycerides 58 mg/dL (<150)
--- NOTE | 2019-09-11 08:17 | P.CRDCN ---
History of Present Illness Consult date: 09/11/19 Consult reason: non-Q-wave [place] History of present illness: History of present illness: This is a 59-year-old -Mong[place]ian male with past medical history of coronary artery disease status post stent placement to the LAD, dyslipidemia, bipolar, depression, schizophrenia and chronic nicotine dependence, cocaine use. Patient states that he has had chest pain for the last 1-1/2 weeks when he walks and with activity but it does not go away with rest. He states that in the left upper chest area and is worse with deep breathing. He complains of cough is nonproductive. He complains of fever and chills. He denies any nausea or sweats. He has last used crack cocaine 2 weeks ago and also has stopped taking his medications for 2 weeks including his cardiac meds. Patient also states that he drank a sixpack of beer yesterday but denies daily use. EKG is a normal sinus rhythm with QTC of 495. Chest x-ray was normal findings. Drug screen positive for cocaine. Hemoglobin 11.1. Troponins 0.178, 0.196. Triglycerides 58, cholesterol 132, LDL 22, HDL 98. Patient states his chest pain is currently in a #7. No tenderness noticed to the chest wall. Patient has a patient safety coordinator at the bedside due to suicidal ideation. The patient was admitted in November 2018 for chest pain and had an abnormal stress test, underwent heart catheterization that revealed a patent stent to the LAD. Echocardiogram at that time revealed EF of 55-60% with mild global hypokinesia of the LV, mild mitral regurgitation, mild tricuspid regurgitation, no pulmonary hypertension. Patient reports chest pain as a #7 out of 10. At the time of my exam: CONSTITUTIONAL: Denies fever. Denies chills. EYES: Denies blurred vision. Denies vision changes. Denies eye pain. EARS, NOSE, MOUTH & THROAT: Denies headache. Denies sore throat. Denies ear pain. CARDIOVASCULAR: Complains of chest pain. Complains of shortness of breath. Den ies orthopnea. Denies PND. Denies palpitations. RESPIRATORY: Complains of cough. GASTROINTESTINAL: Denies abdominal pain. Denies diarrhea. Denies constipation. Denies nausea. Denies vomiting. MUSCULOSKELETAL: Denies myalgias. INTEGUMENTARY: Denies pruitis. Denies rash. NEUROLOGIC: Denies numbness. Denies tingling. Denies weakness. PSYCHIATRIC: Denies anxiety. Denies depression. ENDOCRINE: Complains of fatigue. Denies weight change. Denies polydipsia. Denies polyurina. GENITOURINARY: Denies burning, hematuria or urgency with micturation. HEMATOLOGIC: Denies history of anemia. Denies bleeding. Blood pressure 118/76, pulse 70, pulse ox 97% on room air, afebrile. GENERAL: This is a 59-year-old -[place]ong[place]ian male in no apparent distress at the time of my examination. patient access associate is at bedside. HEENT: Head is atraumatic, normocephalic. Pupils are equal, round. Sclerae anicteric. Conjunctivae are clear. Mucous membranes of the mouth are moist. Neck is supple. There is no jugular venous distention. No carotid bruit is heard. LUNGS: Clear to auscultation. No wheezes or rales. No chest wall tenderness is noted on palpation. HEART: Regular rate and rhythm with systolic ejection murmur at the left sternal border, no rubs or gallops. S1 and S2 heard. ABDOMEN: Soft, nontender. Bowel sounds are heard. No organomegaly noted. EXTREMITIES: No evidence of peripheral edema and no calf tenderness noted. VASCULAR: Dorsalis pedis pulses strong, no evidence of clubbing. NEUROLOGIC: Patient is awake, alert and oriented x3. ASSESSMENT Non-ST elevated myocardial infarction. History of coronary artery disease with stent LAD Dyslipidemia Underlying psychiatric illness Chronic nicotine dependence Crack cocaine use PLAN Obtain 2D echocardiogram and doppler study to assess cardiac structure and function Patient will be resumed on metoprolol XL 12.5 mg and Lipitor 40 mg, aspirin 81 mg daily Further recommendations to follow based upon clinical course Thank you kindly for this consultation. Nurse Practitioner note has been reviewed, I agree with a documented findings and plan of care. Patient was seen and examined. Past Medical History Past Medical History: Coronary Artery Disease (CAD), Chest Pain / Angina, Hyperlipidemia, Myocardial Infarction ([place]), Osteoarthritis ([place]) Additional Past Medical History / Comment(s): Pt denies COPD, arthritis in back and bilateral knees, benign colon polyps Last Myocardial Infarction Date:: 2004 History of Any Multi-Drug Resistant Organisms: None Reported Past Surgical History: Bowel Resection, Heart Catheterization With Stent Additional Past Surgical History / Comment(s): Cardiac stents x 3, bowel surgery for pinpoint hole in bowel, L knee arthroscopy, colonoscopy/benign polypectomies. Past Anesthesia/Blood Transfusion Reactions: No Reported Reaction Date of Last Stent Placement:: 2013 Past Psychological History: Bipolar, Depression, Schizophrenia Smoking Status: Current every day smoker Past Alcohol Use History: Heavy Past Drug Use History: Cocaine, Marijuana - Past Family History Father Family Medical History: Respiratory Disorder Additional Family Medical History / Comment(s): Father at age 64 from Black lung disease Mother Family Medical History: Myocardial Infarction ([place]) Additional Family Medical History / Comment(s): Mother of an [place] at 78yrs old. Brother(s) Family Medical History: Myocardial Infarction ([place]) Additional Family Medical History / Comment(s): Patient has 10 brothers and 2 from myocardial infarction and had history of alcoholism. Sister(s) Additional Family Medical History / Comment(s): He has 7 sisters that are alive with no major medical problems. He has one son that has and one daughter that is alive and okay. Medications and Allergies Home Medications Medication Instructions Recorded Confirmed Type Albuterol Sulfate [Ventolin HFA] 1 - 2 puff INHALATION RT-Q6H PRN 03/14/1904/28 History Budesonide/Formoterol Fumarate 2 puff INHALATION RT-BID 03/14/19 03/14/19 History [Symbicort 160-4.5 Mcg Inhaler] Acetaminophen Tab [Tylenol] 650 mg PO Q4HR PRN tab 03/29/19 Rx Aspirin 81 mg PO DAILY 28 Days chew 03/29/19 Rx Folic Acid 1 mg PO DAILY tab 03/29/19 Rx Melatonin 10 mg PO HS 28 Days tablet 03/29/19 Rx Metoprolol Succinate (ER) [Toprol 12.5 mg PO DAILY 28 Days 03/29/19 Rx XL] tab.er.24h Multivitamins, Thera [Multivitamin 1 each PO DAILY tab 03/29/19 Rx (formulary)] Nicotine Polacrilex [Nicorette] 2 mg BUCCAL Q4HR PRN 14 Days gum 03/29/19 Rx Thiamine [Vitamin B-1] 100 mg PO DAILY tab 03/29/19 Rx Atorvastatin [Lipitor] 40 mg PO HS #30 tab 07/11/19 Rx DULoxetine HCL [Cymbalta] 30 mg PO BID #60 capsule. 07/11/19 Rx OLANZapine [ZyPREXA] 15 mg PO BID #180 tab 07/11/19 Rx Allergies Allergy/AdvReac Type Severity Reaction Status Date / Time blueberry Allergy Rash/Hives Verified 06/30/19 01:32 nitroglycerin Allergy Swelling Verified 06/30/19 01:32 Physical Exam Vitals: Vital Signs Temp Pulse Pulse Resp BP BP Pulse Ox 09/11/19 01:11 98.0 F 103 H 16 103/67 98 09/11/19 01:00 97.9 F 80 16 119/70 95 09/10/19 22:12 98.9 F 87 20 116/84 97 Intake and Output 09/10/19 09/11/19 09/11/19 22:59 06:59 14:59 Other: Weight 72.575 kg 75 kg Results 09/11/19 06:30 09/10/19 22:42 Cardiac Enzymes 09/10/19 09/10/19 09/11/19 Range/Units 22:42 22:42 01:59 AST 44 (17-59) U/L Troponin I 0.178 H* 0.196 H* (0.000-0.034) ng/mL Coagulation 09/10/19 09/11/19 Range/Units 22:42 06:30 PT 10.5 (9.0-12.0) sec APTT 20.2 L 37.6 H (22.0-30.0) sec Lipids 09/11/19 Range/Units 06:30 Triglycerides 58 (<150) mg/dL Cholesterol 132 (<200) mg/dL HDL Cholesterol 98 H (40-60) mg/dL CBC 09/10/19 09/11/19 Range/Units 22:42 06:30 WBC 6.2 5.2 (3.8-10.6) k/uL RBC 3.85 L 3.56 L (4.30-5.90) m/uL Hgb 11.7 L 11.1 L (13.0-17.5) gm/dL Hct 36.9 L 35.3 L (39.0-53.0) % Plt Count 191 173 (150-450) k/uL Comprehensive Metabolic Panel 09/10/19 Range/Units 22:42 Sodium 140 (137-145) mmol/L Potassium 3.9 (3.5-5.1) mmol/L Chloride 109 H (98-107) mmol/L Carbon Dioxide 21 L (22-30) mmol/L BUN 6 L (9-20) mg/dL Creatinine 0.63 L (0.66-1.25) mg/dL Glucose 88 (74-99) mg/dL Calcium 9.4 (8.4-10.2) mg/dL AST 44 (17-59) U/L ALT 12 (4-49) U/L Alkaline Phosphatase 47 (38-126) U/L Total Protein 7.5 (6.3-8.2) g/dL Albumin 4.4 (3.5-5.0) g/dL Current Medications Generic Name Dose Route Start Last Admin Trade Name Freq PRN Reason Stop Dose Admin Aspirin 325 mg 09/11/19 09:00 Aspirin PO DAILY [facility] Atorvastatin Calcium 40 mg 09/11/19 01:02 09/11/19 02:46 Lipitor PO 40 mg HS MORRIS Administration Heparin Sodium (Porcine) 0 unit 09/10/19 23:37 Heparin IV PER PROTOCOL PRN Low PTT Protocol Sodium Chloride 1,000 mls @ 100 mls/hr 09/10/19 22:18 09/11/19 00:02 Saline 0.9% IV 09/11/19 08:17 100 mls/hr .Q10H STA Administration Heparin Sodium/Sodium Chloride 250 mls @ 8.709 mls/hr 09/10/19 23:45 09/10/19 23:58 25,000 unit/ Sodium Chloride IV 12 units/kg/hr .Q24H MORRIS 8.709 mls/hr Administration Protocol 12 UNITS/KG/HR Morphine Sulfate 4 mg 09/11/19 01:53 09/11/19 05:50 Morphine Sulfate (Inj) IVP 4 mg Q2HR PRN Administration Pain Intake and Output 09/10/19 09/11/19 09/11/19 22:59 06:59 14:59 Other: Weight 72.575 kg 75 kg 09/11/19 06:30 09/10/19 22:42
[2019-09-11] MEDS: METOPROLOL SUCCINATE (ER) 25 MG TAB.ER.24H PO SCH (08:40)
[2019-09-11] MEDS: ASPIRIN 81 MG PO SCH (08:40)
[2019-09-11] MEDS: HYDROcodone/APAP 5-325MG 1 EACH TAB PO PRN (08:44)
[2019-09-11] MEDS ORDERED: ASPIRIN 325 MG TAB PO SCH (09:00)
--- NOTE | 2019-09-11 09:36 | P.CN ---
Psychiatric Consult - . Consult date: 09/11/19 Consult:: IDENTIFYING DATA: He is a 59-year-old single -Dominican male known to psychiatry service from his multiple past admissions to 3 . [facility] with complaints of chest pain, suicidal ideation and alcohol intoxication. The hospitalist consult to psychiatry for the suicidal ideation. HISTORY OF PRESENT ILLNESS: I reviewed the medical record and interviewed the patient. He acknowledged that he stopped taking his psychotropic medication "a week or so" after his last discharge from the psychiatric unit. He complained of experiencing increasingly troubling auditory hallucinations (" voices"). The voices were distressing and commanding. He alleged that "they" were telling him to "hurt myself" and "hurt other people." In response to the "voices" he broke furniture and smashed the window in his apartment. His brother, who lives in [place], called him the day of admission and apparently was so concerned that he called the EMS. In the EC he complained of chest pain that began after smoking crack cocaine the day prior to admission. His UDS was positive for cocaine. His BAL was 0.172. Sequential troponins were elevated. During our interview he complained of feeling depressed and having thoughts of or suicide. He denied a specific plan or intent. He alleged she only smoked cocaine "only once" and only drinking "a few beers." He described ongoing and distressing auditory hallucinations that continue to command him to "hurt himself and others." PAST PSYCHIATRIC HISTORY: He has an extensive psychiatric history with multiple admissions with at least 16 to our psychiatric unit. In addition, he has been admitted to other [facility] hospital's. He seldom follows through with outpatient mental health treatment. PAST MEDICAL HISTORY: Coronary artery disease, hyperlipidemia, history of myocardial infarct, osteoarthritis ALLERGIES: Nitroglycerin SUBSTANCE USE HISTORY: He minimizes the severity of his substance abuse problems According to record he's been using cocaine for the last 9 years and last used some time prior to admission. He has been using alcohol since he was 34 years old and last used the day of admission. He is alleging that over the last 2 weeks he's been drinking approximately "a couple" beers per day. He has been in at least one substance abuse treatment program. FAMILY PSYCHIATRIC/SUBSTANCE USE HISTORY: He alleged that 2 of his brothers by suicide. LEGAL HISTORY: He denied current legal problems. SOCIAL HISTORY: His born and raised in [place]. He completed the 12th grade. His parents are . He alleged she worked for [employer] and retired 15 years ago. He currently receives so security disability. He lives alone in an apartment. MENTAL STATUS EXAM: He presented as a withdrawn and depressed appearing 59 -year-old -Dominican male who is laying in bed. The one-to-one sitter was in attendance. He made eye contact and appeared to attend to the interview. He had a depressed facial expression. He was alert and oriented to person and place. He had marked psychomotor retardation but no abnormal involuntary movements. Her speech was not spontaneous and had decreased rate, rhythm and volume. His affect was depressed and not reactive. He expressed suicidal ideation and wishes. He also expressed homicidal ideation. He feels hopeless, helpless and worthless. He ruminated about the "voices". He did not express ideas reference, paranoid ideation or delusions. His thinking was concrete and associations appeared goal directed. He described auditory hallucinations but did not appear to be responding to internal stimuli. IMPRESSIONS: He is a 59-year-old -Dominican male with a history of psychiatric illness, alcohol use and substance use problems He has had multiple psychiatric hospitalizations to multiple psychiatric facilities in [place]. He was last discharged from our unit in July 2019. He stopped his prescribed psychotropic medications, relapse to alcohol and cocaine and presented to the with chest pain, suicidal ideation, depression and auditory hallucinations. This is a common pattern where he stops treatment, relapses to drugs and alcohol and presents to Hospital with medical and psychiatric symptoms. In any event, when he is medically stable he should be transferred to the psychiatric unit. DIAGNOSIS: Cocaine use disorder, alcohol use disorder, non-ST elevated myocardial infarction, rule out alcohol and/or cocaine induced mood disorder, rule out alcohol and/or cocaine induced psychotic disorder, rule out major depressive disorder with psychotic features RECOMMENDATION: Continue one-to-one. Hold psychotropic medications for now. Transfer to the psychiatric unit when medically stable. Psychiatry follow-up. 09/11/19 09:15
[2019-09-11] MEDS: traMADol 50 MG TAB PO PRN ×2 (11:06→20:28)
--- NOTE | 2019-09-11 11:51 | PN ---
PROGRESS NOTE Lele is a 59-year-old gentleman with history of cocaine abuse, comes in complaining of chest discomfort, suicidal ideation. We were consulted because of mildly elevated troponin. Please refer to the detailed consultation dictated by my nurse practitioner. His urine drug screen is positive for cocaine. Tropes are at 0.1, 0.1 and 0.1. His EKG shows sinus rhythm with prolonged QT interval, but does not show any acute ST-T wave changes. The patient had a cardiac catheterization in November of 2018 when he presented with chest pain and did not have significant obstructive CAD. At the time of my evaluation, he appears comfortable at rest and is hemodynamically stable. I am going to stop the IV heparin. We might consider repeating a stress test on him if necessary. I believe the troponin elevation is really related to the cocaine abuse. SYBIL / JUANN: [id number] /
[2019-09-11] MEDS ORDERED: MAG HYDROX/AL HYDROX/SIMETH 30 ML, HYOSCYAMINE ELIXIR 10 ML, LIDOCAINE VISCOUS 2% 10 ML PO ONE ×3 (12:00)
[2019-09-11] MEDS ORDERED: LORazepam 2 MG/ML INJ IV PRN ×2 (12:49)
--- NOTE | 2019-09-11 12:54 | P.PN ---
Subjective Progress Note Date: 09/11/19 (delayed charting seen at 10am) Principal diagnosis: chest pain Patient is a 59-year-old -Mongolian male with known coronary artery disease status post stents, myocardial infarction, depression, bipolar, polysubstance abuse who presented to the ER with complaints of chest pain. Of note patient was recently admitted to the mental health care unit and was discharged in July 2019. He is also had multiple hospitalizations for her chest pain, most recent cardiac catheterization was performed in November 2018 and showed a patent stent. On arrival to the ER he was still having significant chest pain. His vital signs were within normal limits. Initial laboratory analysis showed mildly elevated troponin at 0.108, hemoglobin 11.7. An UDS was positive for cocaine. Initial chest x-ray was negative, EKG demonstrated prolonged QT but no significant ST-T wave changes. He was started on a heparin drip and given aspirin. He was not given nitroglycerin secondary to history of an ALLERGY but did receive a dose of morphine. He was admitted to the selective care unit. Cardiology was consulted. They recommended obtaining a 2-D echocardiogram as well as resuming his metoprolol to 12.5, Lipitor 40, aspirin 81 mg daily. 2 expressing suicidal ideation he was seen by psychiatry. They recommended continued one-to-one and holding psychotropic medication as well as transfer to the mental health unit once medically stable. Cardiology recommended discontinuing his heparin drip and felt that his troponin elevation is likely secondary to cocaine use. Patient seen and examined at bedside. He complains of some left-sided chest pain, though his affect is very flat. He denies shortness of breath, nausea, or vomiting. He states he just does not get better. We discussed that he cannot continue to use cocaine and that he must take all his medications as prescribed. He reports that he has not been following with a primary care physician, but does follow with [facility]. Objective - Vital Signs Vital signs: Vital Signs Temp 98.4 F 09/11/19 11:41 Pulse 75 09/11/19 11:44 Resp 16 09/11/19 11:44 BP 103/67 09/11/19 11:41 Pulse Ox 97 09/11/19 11:41 Intake & Output 09/10/19 09/11/19 09/11/19 18:59 06:59 18:59 Intake Total 89.122 Balance 89.122 Weight 75 kg Intake: Intake, IV Titration 89.122 Amount Heparin Sod,Pork in 0.45% 89.122 NaCl 25,000 unit In 0.45 % NaCl 1 250ml.bag @ 12 UNITS/KG/HR 8.709 mls/hr IV .Q24H [facility] Rx#: [id number] Other: Voiding Method Toilet Toilet - Exam General: non toxic, no distress, appears at stated age Derm: warm, dry Head: atraumatic, normocephalic, symmetric Eyes: EOMI, no lid lag, anicteric sclera Mouth: no lip lesion, mucus membranes moist Cardiovascular: S1S2 reg, no murmur, positive posterior tibial pulse bilateral, Lungs: CTA bilateral, no rhonchi, no rales , no accessory muscle use Abdominal: soft, nontender to palpation, no guarding, no appreciable organomegaly Ext: no gross muscle atrophy, no edema, no contractures Neuro: CN II-XI grossly intact, no focal neuro deficits Psych: Alert, oriented, flat affect, withdrawn - Labs CBC & Chem 7: 09/11/19 06:30 09/10/19 22:42 Labs: Abnormal Lab Results - Last 24 Hours (Table) 09/10/19 09/10/19 09/10/19 Range/Units 22:21 22:42 22:42 RBC 3.85 L (4.30-5.90) m/uL Hgb 11.7 L (13.0-17.5) gm/dL Hct 36.9 L (39.0-53.0) % APTT 20.2 L (22.0-30.0) sec Chloride (98-107) mmol/L Carbon Dioxide (22-30) mmol/L BUN (9-20) mg/dL Creatinine (0.66-1.25) mg/dL Troponin I (0.000-0.034) ng/mL HDL Cholesterol (40-60) mg/dL Urine Cocaine Screen Detected H (NotDetected) 09/10/19 09/10/19 09/11/19 Range/Units 22:42 22:42 01:59 RBC (4.30-5.90) m/uL Hgb (13.0-17.5) gm/dL Hct (39.0-53.0) % APTT (22.0-30.0) sec Chloride 109 H (98-107) mmol/L Carbon Dioxide 21 L (22-30) mmol/L BUN 6 L (9-20) mg/dL Creatinine 0.63 L (0.66-1.25) mg/dL Troponin I 0.178 H* 0.196 H* (0.000-0.034) ng/mL HDL Cholesterol (40-60) mg/dL Urine Cocaine Screen (NotDetected) 09/11/19 09/11/19 09/11/19 Range/Units 06:30 06:30 06:30 RBC 3.56 L (4.30-5.90) m/uL Hgb 11.1 L (13.0-17.5) gm/dL Hct 35.3 L (39.0-53.0) % APTT 37.6 H (22.0-30.0) sec Chloride (98-107) mmol/L Carbon Dioxide (22-30) mmol/L BUN (9-20) mg/dL Creatinine (0.66-1.25) mg/dL Troponin I 0.164 H* (0.000-0.034) ng/mL HDL Cholesterol (40-60) mg/dL Urine Cocaine Screen (NotDetected) 09/11/19 Range/Units 06:30 RBC (4.30-5.90) m/uL Hgb (13.0-17.5) gm/dL Hct (39.0-53.0) % APTT (22.0-30.0) sec Chloride (98-107) mmol/L Carbon Dioxide (22-30) mmol/L BUN (9-20) mg/dL Creatinine (0.66-1.25) mg/dL Troponin I (0.000-0.034) ng/mL HDL Cholesterol 98 H (40-60) mg/dL Urine Cocaine Screen (NotDetected) Assessment and Plan Assessment: Chest pain with hx of CAD -Suspect related to cocaine abuse -Cardiology recommendations appreciated: Heparin drip stopped, resume on a beta paulina, statin, and aspirin -Telemetry -Echocardiogram in a.m. -May also be related to anxiety -Lipid profile normal Troponin elvation - flat and felt to be due to cocaine use Depression -Psychiatry recommendations appreciated, plan to transfer the mental health unit when medically stable - stay of psych medications Polysubstance abuse -Cessation Anemia - mild - follow CBC - work up consistent with Fe deficiency anemia in Feburary, start iron - outpatient evaluation Alcohol abuse -Start CIWA protocol -Thiamine, folic acid Tobacco abuse -Cessation -Nicotine replacement chest pain-free DVT prophylaxis: SCDs Discussed with: patient, nursing, psych Anticipated discharge: in AM if cleared by cardio Anticipated discharge place: MHU A total of 35 minutes was spent on the care of this complex patient more than 50% of the time was spent in counseling and care coordination.
[2019-09-11] MEDS: LORazepam 2 MG/ML INJ IV PRN (16:19)
[2019-09-11] MEDS: FERROUS SULFATE 325 MG TAB PO SCH (17:49)
[2019-09-11] MEDS: SYMBICORT 160-4.5 MCG INHALER INHALATION SCH (18:56)
[2019-09-11] MEDS: HEPARIN SODIUM,PORCINE 5,000 UNIT/ML 1 ML VIAL SQ SCH (20:30)
[2019-09-12] MEDS: LORazepam 2 MG/ML INJ IV PRN (01:06)
[2019-09-12 08:04] LABS: Basophils % (A) 0 %; Eosinophils % (A) 1 %; HCT 36.2 % (39.0-53.0); HGB 11.4 gm/dL (13.0-17.5); Hypochromasia Slight; Lymphocytes # (A) 1.6 k/uL (1.0-4.8); Lymphocytes % (A) 44 %; MCH 30.9 pg (25.0-35.0); MCHC 31.6 g/dL (31.0-37.0); MCV 97.9 fL (80.0-100.0); Mean Platelet Volume 8.2; Monocytes # (A) 0.3 k/uL (0-1.0); Monocytes % (A) 8 %; Neutrophils # (A) 1.6 k/uL (1.3-7.7); Neutrophils % (A) 43 %; Platelet Count 156 k/uL (150-450); RDW 14.6 % (11.5-15.5); WBC 3.7 k/uL (3.8-10.6)
[2019-09-12] MEDS: HEPARIN SODIUM,PORCINE 5,000 UNIT/ML 1 ML VIAL SQ SCH ×2 (08:25→20:07)
[2019-09-12] MEDS: ASPIRIN 81 MG PO SCH (08:25)
[2019-09-12] MEDS: FOLIC ACID 1 MG TAB PO SCH (08:25)
[2019-09-12] MEDS: MULTIVITAMINS, THERA 1 EACH TAB PO SCH (08:25)
[2019-09-12] MEDS: THIAMINE 100 MG TAB PO SCH (08:25)
[2019-09-12] MEDS: METOPROLOL SUCCINATE (ER) 25 MG TAB.ER.24H PO SCH (08:25)
[2019-09-12] MEDS: traMADol 50 MG TAB PO PRN ×2 (08:26→20:14)
[2019-09-12] MEDS: SYMBICORT 160-4.5 MCG INHALER INHALATION SCH ×2 (09:07→21:36)
--- NOTE | 2019-09-12 09:51 | P.PN ---
Subjective Progress Note Date: 09/12/19 Principal diagnosis: Chest discomfort This is a 59-year-old -Kaz[place] gentleman with coronary artery disease and prior stenting as well as hypertension, dyslipidemia, history of smoking, and history of cocaine abuse, was admitted to the hospital with chest discomfort and was found to be positive for cocaine. The patient was treated medically. He was seen today, he continues to have mild ongoing chest discomfort according to him. No shortness of breath, dizziness, or sweating. He is on aspirin as well as beta paulina as well as a statin. I am going to add Plavix to her current medical regimen also I am going to add oral nitrates the current medical regimen. We'll follow-up on the echocardiogram which is still pending. Objective - Vital Signs Vital signs: Vital Signs Temp 98.3 F 09/12/19 08:00 Pulse 65 09/12/19 08:00 Resp 16 09/12/19 08:00 BP 113/73 09/12/19 08:00 Pulse Ox 98 09/12/19 08:00 Intake & Output 09/11/19 09/12/19 09/12/19 18:59 06:59 18:59 Intake Total 1509.122 480 Balance 1509.122 480 Weight 72 kg Intake: Intake, IV Titration 789.122 Amount Heparin Sod,Pork in 0.45% 89.122 NaCl 25,000 unit In 0.45 % NaCl 1 250ml.bag @ 12 UNITS/KG/HR 8.709 mls/hr IV .Q24H [facility] Rx#: [id number] Sodium Chloride 0.9% 1, 700 000 ml @ 100 mls/hr IV . Q10H [facility] Rx#:[id number] Oral 720 480 Other: Voiding Method Toilet Toilet Toilet # Voids 4 1 - Constitutional General appearance: Present: no acute distress - Respiratory Respiratory: bilateral: CTA - Cardiovascular Rhythm: regular Heart sounds: normal: S1, S2 - Labs CBC & Chem 7: 09/12/19 07:23 09/10/19 22:42 Labs: Abnormal Lab Results - Last 24 Hours (Table) 09/12/19 Range/Units 07:23 WBC 3.7 L (3.8-10.6) k/uL RBC 3.70 L (4.30-5.90) m/uL Hgb 11.4 L (13.0-17.5) gm/dL Hct 36.2 L (39.0-53.0) % Assessment and Plan Assessment: Assessment #1 mild non-ST deviation myocardial infarction #2 coronary artery disease and prior stenting of the LAD #3 history of smoking #4 history of drug abuse #5 history of psychiatric illness Plan Continue the current medical regimen Add Plavix to the current medical regimen Add oral nitrates the current medical regimen Follow-up on the echocardiogram Procedure coronary angiogram if he continues to have chest discomfort.
[2019-09-12] MEDS ORDERED: LORazepam 2 MG/ML INJ IV STA (10:09)
--- NOTE | 2019-09-12 10:51 | ECHOF ---
Referral Reason:LVF MEASUREMENTS -------- HEIGHT: 175.3 cm WEIGHT: 71.7 kg BP: 132/77 IVSd: 1.3 cm (0.6 - 1.1) LVIDd: 3.8 cm (3.9 - 5.3) LVPWd: 1.5 cm (0.6 - 1.1) IVSs: 1.7 cm LVIDs: 2.7 cm LVPWs: 1.4 cm LA Diam: 4.5 cm (2.7 - 3.8) RVIDd: 3.4 cm (< 3.3) LAESV Index (A-L): 39.89 ml/m Ao Diam: 3.6 cm (2.0 - 3.7) LA Diam: 4.1 cm (2.7 - 3.8) AV Cusp: 2.2 cm (1.5 - 2.6) EPSS: 0.4 cm MV E Abilio: 0.57 m/s MV DecT: 252 ms MV A Abilio: 0.61 m/s MV E/A Ratio: 0.93 RAP: 5.00 mmHg RVSP: 26.08 mmHg MV EF SLOPE: 91.53 mm/s (70 - 150) MV EXCURSION: 18.87 mm (> 18.000) FINDINGS -------- Sinus rhythm. This was a technically good study. The left ventricular size is normal. There is mild concentric left ventricular hypertrophy. Overa ll left ventricular systolic function is normal with, an EF between 55 - 60 %. The right ventricle is normal in size. The left atrium is moderately dilated. LA is moderately dilated 34-39 ml/m2 The right atrial size is normal. The aortic valve is trileaflet, and appears structurally normal. No aortic stenosis or regurgitation. Mild mitral regurgitation is present. Mild tricuspid regurgitation present. Right ventricular systolic pressure is normal at < 35 mmHg. There is no pulmonic regurgitation present. The aortic root size is normal. There is no pericardial effusion. CONCLUSIONS -------- 1. The left ventricular size is normal. 2. There is mild concentric left ventricular hypertrophy. 3. Overall left ventricular systolic function is normal with, an EF between 55 - 60 %. 4. The right ventricle is normal in size. 5. The left atrium is moderately dilated. 6. LA is moderately dilated 34-39 ml/m2 7. The right atrial size is normal. 8. Mild mitral regurgitation is present. 9. Mild tricuspid regurgitation present. STRATEGIC PLANNING CONSULTANT: Flores Thomas RDCS
--- NOTE | 2019-09-12 12:08 | P.PN ---
Subjective Progress Note Date: 09/12/19 Principal diagnosis: chest pain Patient is a 59-year-old -Syrian male with known coronary artery disease status post stents, myocardial infarction, depression, bipolar, po lysubstance abuse who presented to the ER with complaints of chest pain. Of note patient was recently admitted to the mental health care unit and was discharged in July 2019. He is also had multiple hospitalizations for her chest pain, most recent cardiac catheterization was performed in November 2018 and showed a patent stent. On arrival to the ER he was still having significant chest pain. His vital signs were within normal limits. Initial laboratory analysis showed mildly elevated troponin at 0.108, hemoglobin 11.7. An UDS was positive for cocaine. Initial chest x-ray was negative, EKG demonstrated prolonged QT but no significant ST-T wave changes. He was started on a heparin drip and given aspirin. He was not given nitroglycerin secondary to history of an ALLERGY but did receive a dose of morphine. He was admitted to the selective care unit. Cardiology was consulted. They recommended obtaining a 2-D echocardiogram as well as resuming his metoprolol to 12.5, Lipitor 40, aspirin 81 mg daily. 2 expressing suicidal ideation he was seen by psychiatry. They recommended continued one-to-one and holding psychotropic medication as well as transfer to the mental health unit once medically stable. Cardiology recommended discontinuing his heparin drip and felt that his troponin elevation is likely secondary to cocaine use. He continued to complain of chest pain. He was started on norco and ultram without relief. He was give a trail of GI cocktail which he states did not help much. He is allergic to nitrates. Patient seen and examined at bedside. He is laying down and sleeping when I enter the room and he appears comfortable. Upon waking he complains of unbearable chest pain with SOB that is centered on the left side of his chest. He denies lightheadedness, dizziness. He states that he just needs something that helps. I discussed trying benzos to see if this is anxiety related. He is willing to try this, but does not think his chest pain is related to his mental health. Objective - Vital Signs Vital signs: Vital Signs Temp 98.3 F 09/12/19 08:00 Pulse 65 09/12/19 08:00 Resp 16 09/12/19 08:00 BP 113/73 09/12/19 08:00 Pulse Ox 98 08/03/20 08:00 Intake & Output 09/11/19 09/12/19 09/12/19 18:59 06:59 18:59 Intake Total 1509.122 480 Balance 1509.122 480 Weight 72 kg Intake: Intake, IV Titration 789.122 Amount Heparin Sod,Pork in 0.45% 89.122 NaCl 25,000 unit In 0.45 % NaCl 1 250ml.bag @ 12 UNITS/KG/HR 8.709 mls/hr IV .Q24H [facility] Rx#: [id number] Sodium Chloride 0.9% 1, 700 000 ml @ 100 mls/hr IV . Q10H [facility] Rx#:[id number] Oral 720 480 Other: Voiding Method Toilet Toilet Toilet # Voids 4 1 - Exam General: non toxic, no distress, appears at stated age Derm: warm, dry Head: atraumatic, normocephalic, symmetric Eyes: EOMI, no lid lag, anicteric sclera Mouth: no lip lesion, mucus membranes moist Cardiovascular: S1S2 reg, no murmur, positive posterior tibial pulse bilateral, no pain to palpation over chest wall Lungs: CTA bilateral, no rhonchi, no rales , no accessory muscle use Abdominal: soft, nontender to palpation, no guarding, no appreciable organomegaly Ext: no gross muscle atrophy, no edema, no contractures Neuro: CN II-XI grossly intact, no focal neuro deficits Psych: Alert, oriented, flat affect, withdrawn - Labs CBC & Chem 7: 09/12/19 07:23 09/10/19 22:42 Labs: Abnormal Lab Results - Last 24 Hours (Table) 09/12/19 Range/Units 07:23 WBC 3.7 L (3.8-10.6) k/uL RBC 3.70 L (4.30-5.90) m/uL Hgb 11.4 L (13.0-17.5) gm/dL Hct 36.2 L (39.0-53.0) % Assessment and Plan Assessment: Chest pain with hx of CAD -Suspect related to cocaine abuse - ASA, BB, statin -Cardiology recommendations appreciated: D/W Dr. Moody restarted on plavix, trial of medications, and if pain continues then may need cardiac cath -Telemetrywith preserved EF 55-60% and LVH -May also be related to anxiety trial of ativan -Lipid profile normal Troponin elvation - flat and felt to be due to cocaine use Depression -Psychiatry recommendations appreciated, plan to transfer the mental health unit when medically stable - stay of psych medications Polysubstance abuse -Cessation Anemia - mild - follow CBC - work up consistent with Fe deficiency anemia in Feburary, start iron - outpatient evaluation Alcohol abuse -Start CIWA protocol -Thiamine, folic acid Tobacco abuse -Cessation -Nicotine replacement chest pain-free DVT prophylaxis: SCDs Discussed with: patient, nursing, Dr. Moody Anticipated discharge: 1-[address]: [facility] A total of 35 minutes was spent on the care of this complex patient more than 50% of the time was spent in counseling and care coordination.
[2019-09-12] MEDS: HYDROcodone/APAP 5-325MG 1 EACH TAB PO PRN (17:53)
[2019-09-12] MEDS: FERROUS SULFATE 325 MG TAB PO SCH (17:53)
[2019-09-12] MEDS: ATORVASTATIN 40 MG TAB PO SCH (20:07)
[2019-09-13 06:09] LABS: Basophils % (A) 0 %; Eosinophils % (A) 1 %; HCT 36.7 % (39.0-53.0); HGB 11.6 gm/dL (13.0-17.5); Lymphocytes # (A) 1.5 k/uL (1.0-4.8); Lymphocytes % (A) 38 %; MCH 30.9 pg (25.0-35.0); MCHC 31.7 g/dL (31.0-37.0); MCV 97.6 fL (80.0-100.0); Mean Platelet Volume 8.6; Monocytes # (A) 0.3 k/uL (0-1.0); Monocytes % (A) 9 %; Neutrophils % (A) 50 %; Platelet Count 158 k/uL (150-450); RBC 3.76 m/uL (4.30-5.90); RDW 14.4 % (11.5-15.5)
--- NOTE | 2019-09-13 08:50 | P.PN ---
Subjective Progress Note Date: 09/13/19 Principal diagnosis: Chest discomfort This is a 59-year-old -Mozambican gentleman with coronary artery disease and prior stenting as well as hypertension, dyslipidemia, history of smoking, and history of cocaine abuse, was admitted to the hospital with chest discomfort and was found to be positive for cocaine. The patient was treated medically. The patient was seen today, 09/13/2019. Clinically he is doing better. He stated that the chest discomfort has improved. He denies any shortness of breath. No dizziness or lightheadedness or syncope. Yesterday I added Plavix the current medical regimen. He is ALLERGIC to nitrates. I will continue the current medical regimen. The echo revealed normal LV function. If he is not having chest discomfort we'll continue the conservative medical approach but if he developed any chest discomfort I would consider proceeding with heart catheterization Objective - Vital Signs Vital signs: Vital Signs Temp 97.9 F 09/13/19 04:10 Pulse 67 09/13/19 04:10 Resp 18 09/13/19 04:10 BP 121/67 09/13/19 04:10 Pulse Ox 98 09/13/19 04:10 Intake & Output 09/12/19 09/13/19 09/13/19 18:59 06:59 18:59 Intake Total 960 200 Balance 960 200 Weight 71.7 kg Intake: Oral 960 200 Other: Voiding Method Toilet Toilet # Voids 3 0 - Constitutional General appearance: Present: no acute distress - Respiratory Respiratory: bilateral: CTA - Cardiovascular Rhythm: regular Heart sounds: normal: S1, S2 - Labs CBC & Chem 7: 09/13/19 05:50 09/10/19 22:42 Labs: Abnormal Lab Results - Last 24 Hours (Table) 09/13/19 Range/Units 05:50 RBC 3.76 L (4.30-5.90) m/uL Hgb 11.6 L (13.0-17.5) gm/dL Hct 36.7 L (39.0-53.0) % Assessment and Plan Assessment: Assessment #1 mild non-ST deviation myocardial infarction #2 coronary artery disease and prior stenting of the LAD #3 history of smoking #4 history of drug abuse #5 history of psychiatric illness Plan Continue the current medical regimen Follow-up with the patient
[2019-09-13] MEDS: SYMBICORT 160-4.5 MCG INHALER INHALATION SCH ×2 (08:52→19:40)
[2019-09-13] MEDS ORDERED: ISOSORBIDE MONONITRATE ER 30 MG TAB.ER.24H PO SCH (09:00)
[2019-09-13] MEDS: MULTIVITAMINS, THERA 1 EACH TAB PO SCH (09:05)
[2019-09-13] MEDS: traMADol 50 MG TAB PO PRN ×2 (09:05→17:50)
[2019-09-13] MEDS: CLOPIDOGREL 75 MG TAB PO SCH (09:05)
[2019-09-13] MEDS: ASPIRIN 81 MG PO SCH (09:05)
[2019-09-13] MEDS: METOPROLOL SUCCINATE (ER) 25 MG TAB.ER.24H PO SCH (09:06)
[2019-09-13] MEDS: FOLIC ACID 1 MG TAB PO SCH (09:06)
[2019-09-13] MEDS: HEPARIN SODIUM,PORCINE 5,000 UNIT/ML 1 ML VIAL SQ SCH ×2 (09:06→20:01)
[2019-09-13 09:16] LABS: African American GFR (CKD) >90 (>60 ml/min/1.73 sqM); Anion Gap 5 mmol/L; Blood Urea Nitrogen 5 mg/dL (9-20); Calcium 8.9 mg/dL (8.4-10.2); Carbon Dioxide 28 mmol/L (22-30); Chloride 104 mmol/L (98-107); Glucose 92 mg/dL (74-99); Non-African American GFR(CKD) >90 (>60 ml/min/1.73 sqM); Potassium 3.9 mmol/L (3.5-5.1); Sodium 137 mmol/L (137-145)
[2019-09-13] MEDS: HYDROcodone/APAP 7.5-325MG 1 EACH TAB PO PRN ×2 (12:50→20:00)
[2019-09-13] MEDS: FERROUS SULFATE 325 MG TAB PO SCH (12:51)
[2019-09-13] MEDS: THIAMINE 100 MG TAB PO SCH (12:51)
--- NOTE | 2019-09-13 13:19 | P.PN ---
Subjective Progress Note Date: 09/13/19 Principal diagnosis: chest pain Patient is a 59-year-old -Beninese male with known coronary artery disease status post stents, myocardial infarction, depression, bipolar, po lysubstance abuse who presented to the ER with complaints of chest pain. Of note patient was recently admitted to the mental health care unit and was discharged in July 2019. He is also had multiple hospitalizations for her chest pain, most recent cardiac catheterization was performed in November 2018 and showed a patent stent. On arrival to the ER he was still having significant chest pain. His vital signs were within normal limits. Initial laboratory analysis showed mildly elevated troponin at 0.108, hemoglobin 11.7. An UDS was positive for cocaine. Initial chest x-ray was negative, EKG demonstrated prolonged QT but no significant ST-T wave changes. He was started on a heparin drip and given aspirin. He was not given nitroglycerin secondary to history of an ALLERGY but did receive a dose of morphine. He was admitted to the selective care unit. Cardiology was consulted. They recommended obtaining a 2-D echocardiogram as well as resuming his metoprolol to 12.5, Lipitor 40, aspirin 81 mg daily. 2 expressing suicidal ideation he was seen by psychiatry. They recommended continued one-to-one and holding psychotropic medication as well as transfer to the mental health unit once medically stable. Cardiology recommended discontinuing his heparin drip and felt that his troponin elevation is likely secondary to cocaine use. He continued to complain of chest pain. He was started on norco and ultram without relief. He was give a trial of GI cocktail which he states did not help much. He is allergic to nitrates. On the morning of 09/12 his chest pain had improved but was not fully resolved. Patient seen and examined at bedside. He reports that his chest pain is somewh at better than yesterday, breathing is somewhat better. No nausea, no diarrhea. Objective - Vital Signs Vital signs: Vital Signs Temp 98.5 F 09/13/19 12:00 Pulse 72 09/13/19 12:00 Resp 18 09/13/19 12:00 BP 125/85 09/13/19 12:00 Pulse Ox 97 09/13/19 12:00 Intake & Output 09/12/19 09/13/19 09/13/19 18:59 06:59 18:59 Intake Total 960 200 240 Balance 960 200 240 Weight 71.7 kg Intake: Oral 960 200 240 Other: Voiding Method Toilet Toilet Toilet # Voids 3 0 - Exam General: non toxic, no distress, appears at stated age Derm: warm, dry Head: atraumatic, normocephalic, symmetric Eyes: EOMI, no lid lag, anicteric sclera Mouth: no lip lesion, mucus membranes moist Cardiovascular: S1S2 reg, no murmur, positive posterior tibial pulse bilateral Lungs: CTA bilateral, no rhonchi, no rales , no accessory muscle use Abdominal: soft, nontender to palpation, no guarding, no appreciable organomegaly Ext: no gross muscle atrophy, no edema, no contractures Neuro: CN II-XI grossly intact, no focal neuro deficits Psych: Alert, oriented, flat affect, withdrawn - Labs CBC & Chem 7: 09/13/19 05:50 09/13/19 05:50 Labs: Abnormal Lab Results - Last 24 Hours (Table) 09/13/19 09/13/19 Range/Units 05:50 05:50 RBC 3.76 L (4.30-5.90) m/uL Hgb 11.6 L (13.0-17.5) gm/dL Hct 36.7 L (39.0-53.0) % BUN 5 L (9-20) mg/dL Creatinine 0.63 L (0.66-1.25) mg/dL Assessment and Plan Assessment: Chest pain with hx of CAD -Suspect related to cocaine abuse - ASA, BB, statin -Started on Plavix -Cardiology recommendations appreciated: D/W Dr. Moody increase norco and if pain continues then may need cardiac cath -Telemetry -Echo with preserved EF 55-60% and LVH -May also be related to anxiety trial of ativan -Lipid profile normal Troponin elvation - flat and felt to be due to cocaine use Depression -Psychiatry recommendations appreciated, plan to transfer the mental health unit when medically stable - stay of psych medications Polysubstance abuse -Cessation Anemia - mild - follow CBC - work up consistent with Fe deficiency anemia in [facility], start iron - outpatient evaluation Alcohol abuse - CIWA protocol -Thiamine, folic acid Tobacco abuse -Cessation -Nicotine replacement chest pain-free DVT prophylaxis: SCDs Discussed with: patient, nursing, Dr. Moody Anticipated discharge: 1-[address]: [facility] A total of 35 minutes was spent on the care of this complex patient more than 50% of the time was spent in counseling and care coordination.
[2019-09-13] MEDS: ATORVASTATIN 40 MG TAB PO SCH (20:00)
[2019-09-14] MEDS: SYMBICORT 160-4.5 MCG INHALER INHALATION SCH ×2 (08:33→19:10)
[2019-09-14] MEDS: MULTIVITAMINS, THERA 1 EACH TAB PO SCH (08:51)
[2019-09-14] MEDS: CLOPIDOGREL 75 MG TAB PO SCH (08:51)
[2019-09-14] MEDS: ASPIRIN 81 MG PO SCH (08:51)
[2019-09-14] MEDS: THIAMINE 100 MG TAB PO SCH (08:51)
[2019-09-14] MEDS: FOLIC ACID 1 MG TAB PO SCH (08:51)
[2019-09-14] MEDS: HYDROcodone/APAP 7.5-325MG 1 EACH TAB PO PRN ×3 (08:51→21:59)
[2019-09-14] MEDS: HEPARIN SODIUM,PORCINE 5,000 UNIT/ML 1 ML VIAL SQ SCH ×2 (08:51→20:23)
[2019-09-14] MEDS: METOPROLOL SUCCINATE (ER) 25 MG TAB.ER.24H PO SCH (08:51)
[2019-09-14] MEDS ORDERED: REGADENOSON 0.4 MG/5 ML SYRINGE IV ONE (10:42)
[2019-09-14] MEDS ORDERED: AMINOPHYLLINE 500 MG/20 ML VIAL IV PRN (10:42)
[2019-09-14] MEDS ORDERED: CAFFEINE CITRATE 60 MG/3 ML VIAL IV PRN (10:42)
--- NOTE | 2019-09-14 10:44 | P.PN ---
Subjective Progress Note Date: 09/14/19 Principal diagnosis: Chest discomfort This is a 59-year-old -Togolese gentleman with coronary artery disease and prior stenting as well as hypertension, dyslipidemia, history of smoking, and history of cocaine abuse, was admitted to the hospital with chest discomfort and was found to be positive for cocaine. The patient was treated medically. The patient was seen today, September [id number]. He stated that he is doing better. The chest discomfort is improved but did not resolve completely. No shortness of breath, dizziness, heart racing, or syncope. I discussed his case with Dr. Sorto and we both agreed about performing a stress test to rule out severe underlying coronary artery disease. We'll continue following up with the patient. Objective - Vital Signs Vital signs: Vital Signs Temp 98.2 F 09/14/19 08:00 Pulse 79 09/14/19 08:00 Resp 18 09/14/19 08:00 BP 122/88 09/14/19 08:00 Pulse Ox 97 09/14/19 08:00 Intake & Output 09/13/19 09/14/19 09/14/19 18:59 06:59 18:59 Intake Total 1500 Balance 1500 Weight 70.9 kg Intake: Oral 1500 Other: Voiding Method Toilet Toilet Toilet # Voids 3 1 # Bowel Movements 1 - Constitutional General appearance: Present: no acute distress - Respiratory Respiratory: bilateral: CTA - Cardiovascular Rhythm: regular Heart sounds: normal: S1, S2 - Labs CBC & Chem 7: 09/13/19 05:50 09/13/19 05:50 Assessment and Plan Assessment: Assessment #1 mild non-ST deviation myocardial infarction #2 coronary artery disease and prior stenting of the LAD #3 history of smoking #4 history of drug abuse #5 history of psychiatric illness Plan Schedule the patient to undergo myocardial perfusion imaging stress test #2 follow-up with the patient
--- NOTE | 2019-09-14 12:21 | P.PN ---
Subjective Progress Note Date: 09/14/19 Patient reports improvement from yesterday, still reporting chest pain 5 out of 10. Also reports poor appetite and a little bit of nausea last night, but no vomiting. Stooling well, passing flatus, no abdominal pain or bloating. Objective - Vital Signs Vital signs: Vital Signs Temp 98.2 F 09/14/19 08:00 Pulse 79 09/14/19 08:00 Resp 18 09/14/19 08:00 BP 122/88 09/14/19 08:00 Pulse Ox 97 09/14/19 08:00 Intake & Output 09/13/19 09/14/19 09/14/19 18:59 06:59 18:59 Intake Total 1500 Balance 1500 Weight 70.9 kg Intake: Oral 1500 Other: Voiding Method Toilet Toilet Toilet # Voids 3 1 # Bowel Movements 1 - Exam Gen: awake, alert HEENT: normocephalic, atraumatic, good hearing acuity, moist mucous membranes Resp: CTAB, good air exchange, no accessory muscle use, no wheezes, crackles, rhonchi CVS: good distal perfusion x 4, RRR, no murmurs, clicks, gallops GI: soft, NTTP, ND : no SPT, no CVAT, hudson catheter [IS/NOT] present MSK: no pitting edema, no clubbing Neuro: non-focal, no sensory deficits, appropriate tone Psych: cooperative, euthymic mood - Labs CBC & Chem 7: 09/13/19 05:50 09/13/19 05:50 Assessment and Plan Assessment: Chest pain with hx of CAD -Suspect related to cocaine abuse - ASA, BB, statin -Started on Plavix -Cardiology recommendations appreciated: Plan for stress test to rule out reversible ischemia, if negative, can discharge to [facility] -Telemetry -Echo with preserved EF 55-60% and LVH -Lipid profile normal Troponin elvation - flat and felt to be due to cocaine use Depression -Psychiatry recommendations appreciated, plan to transfer the mental health unit when medically stable - stay of psych medications Polysubstance abuse -Cessation Anemia - mild - follow CBC - work up consistent with Fe deficiency anemia in Feburary, start iron - outpatient evaluation Alcohol abuse - CIWA protocol -Thiamine, folic acid Tobacco abuse -Cessation -Nicotine replacement chest pain-free DVT prophylaxis: SCDs Discussed with: patient, nursing, Dr. Moody Anticipated discharge: 1-[address]: [facility]
--- NOTE | 2019-09-14 14:44 | NM ---
EXAMINATION TYPE: NM stress lexiscan cardiolite DATE OF EXAM: 09/14/2019 COMPARISON: NONE HISTORY: Chest pain TECHNIQUE: After the intravenous administration of 10.56 mCi Tc 99m Sestamibi - Cardiolite resting S PECT images acquired 45 minutes post injection. The patient received 0.4mg Lexiscan, 26.8 mCi Tc 99m Sestamibi - Stress images obtained [address] injection FINDINGS: There is diminished radiotracer accumulation on the resting images along the inferior and inferior se ptal wall near the apex. This defect is larger on the stress images and extends closer to the cardiac base. Polar maps are unremarkable. There is some dyskinesia at the cardiac apex. Ejection fraction of 56% is normal. IMPRESSION: There is some stress-induced ischemic change which may be at a prior infarct region along the inferio r wall greater towards the cardiac apex. 2. Dyskinesia at the cardiac apex on wall motion. 3. Ejection fraction remains within normal limits 56%. A Red level critical message alert has been initiated for Primo Moody MD via the My-Apps System on 09/14/2019 2:42 PM. This message alert has been sent to Primo Moody MD via th e preferences provided by the clinician for the receipt of Radiology Critical Findings. Message ID [id number].
--- NOTE | 2019-09-14 15:09 | EST ---
EXERCISE STRESS AGE: 59 SEX: M HT: 69" WT: 156 lbs PROTOCOL: Lexiscan Cardiolite STAGE: DURATION OF EXERCISE: HEART RATE REST: 72 BLOOD PRESSURE REST: 127/80 MAXIMUM HEART RATE ACHIEVED: 88 MAXIMUM BLOOD PRESSURE: 127/80 85% MPHR: 136 100% MPHR: 160 METS: INDICATIONS: Chest pain. CLINICAL INFORMATION: Baseline heart rate 72 beats per minute. Baseline blood pressure 127/80 mmHg. Baseline 12-lead ECG shows sinus rhythm with ST-segment abnormality with ST elevation inferolaterally. Patient received Lexiscan infusion per protocol and he complained of chest pain, shortness of breath through the procedure. Heart rate and blood pressure remained normal. There were no ECG abnormalities noted. Nuclear portion will be reported separately. MMODL / IJN: [id number] /
[2019-09-14] MEDS: FERROUS SULFATE 325 MG TAB PO SCH (15:42)
[2019-09-14] MEDS: ATORVASTATIN 40 MG TAB PO SCH (20:23)
[2019-09-15] MEDS: THIAMINE 100 MG TAB PO SCH (08:12)
[2019-09-15] MEDS: HEPARIN SODIUM,PORCINE 5,000 UNIT/ML 1 ML VIAL SQ SCH (08:12)
[2019-09-15] MEDS: ASPIRIN 81 MG PO SCH (08:12)
[2019-09-15] MEDS: FOLIC ACID 1 MG TAB PO SCH (08:12)
[2019-09-15] MEDS: CLOPIDOGREL 75 MG TAB PO SCH (08:12)
[2019-09-15] MEDS: METOPROLOL SUCCINATE (ER) 25 MG TAB.ER.24H PO SCH (08:12)
[2019-09-15] MEDS: MULTIVITAMINS, THERA 1 EACH TAB PO SCH (08:12)
[2019-09-15] MEDS: HYDROcodone/APAP 7.5-325MG 1 EACH TAB PO PRN ×2 (08:18→14:27)
[2019-09-15] MEDS: SYMBICORT 160-4.5 MCG INHALER INHALATION SCH ×2 (08:27→20:35)
[2019-09-15] MEDS ORDERED: HYDROmorphone 1 MG/ML 1 ML SYRINGE IVP STA (09:01)
[2019-09-15] MEDS ORDERED: SODIUM CHLORIDE 0.9% 1,000 ML in EMPTY BAG 1 BAG IV ONE (09:47)
[2019-09-15] MEDS ORDERED: ATORVASTATIN 80 MG TAB PO STA (09:47)
[2019-09-15] MEDS ORDERED: ASPIRIN 325 MG TAB PO STA (09:47)
[2019-09-15] MEDS ORDERED: LIDOCAINE 1% INJ 10MG/ML (20 ML MDV) ONE (10:06)
[2019-09-15] MEDS ORDERED: VERAPAMIL 2.5 MG/ML 2 ML AMP ONE (10:06)
[2019-09-15] MEDS ORDERED: HEPARIN SODIUM 1,000 UN/ML (10ML VL) ONE (10:06)
[2019-09-15] MEDS ORDERED: MIDAZOLAM 2 MG/2 ML VIAL IV ONE (10:29)
[2019-09-15] MEDS ORDERED: LIDOCAINE 1% INJ 10MG/ML (20 ML MDV) SQ ONE (10:29)
[2019-09-15] MEDS ORDERED: HYDROmorphone 1 MG/ML 1 ML SYRINGE ONE (10:29)
[2019-09-15] MEDS ORDERED: IV FLUID CONTINUATION 700 ML IV ONE (10:31)
[2019-09-15] MEDS ORDERED: HYDROmorphone 1 MG/ML 1 ML SYRINGE IVP ONE (10:31)
[2019-09-15] MEDS ORDERED: IOPAMIDOL-370 100ML BTL INJ ONE (10:39)
[2019-09-15] MEDS ORDERED: SODIUM CHLORIDE 0.9% 1,000 ML IV SCH (10:45)
[2019-09-15] MEDS ORDERED: RX INFO: IV CONTRAST WAS GIVEN 1 EACH MISC MISCELLANE PRN (10:45)
--- NOTE | 2019-09-15 10:56 | P.PN ---
Subjective Progress Note Date: 09/15/19 Principal diagnosis: Chest discomfort This is a 59-year-old -Gu[place]ian gentleman with coronary artery disease and prior stenting as well as hypertension, dyslipidemia, history of smoking, and history of cocaine abuse, was admitted to the hospital with chest discomfort and was found to be positive for cocaine. The patient was treated medically. The patient was seen today over 2019. He was experiencing ongoing chest discomfort. A bedside EKG was performed and showed sinus rhythm with ST segment elevation in the lateral leads. I advised proceeding with an emergent heart catheterization. Objective - Vital Signs Vital signs: Vital Signs Temp 97.6 F 09/15/19 08:08 Pulse 58 L 09/15/19 08:10 Resp 16 09/15/19 08:10 BP 126/81 09/15/19 08:08 Pulse Ox 100 09/15/19 08:08 Intake & Output 09/14/19 09/15/19 09/15/19 18:59 06:59 18:59 Intake Total 480 160 Balance 480 160 Weight 70.9 kg Intake: IV 160 Invasive Line 1 10 Oral 480 0 Other: Voiding Method Toilet Toilet Toilet # Voids 1 2 1 - Constitutional General appearance: Present: no acute distress - Respiratory Respiratory: bilateral: CTA - Cardiovascular Rhythm: regular Heart sounds: normal: S1, S2 - Labs CBC & Chem 7: 09/13/19 05:50 09/13/19 05:50 Assessment and Plan Assessment: Assessment #1 mild non-ST deviation myocardial infarction #2 coronary artery disease and prior stenting of the LAD #3 history of smoking #4 history of drug abuse #5 chest discomfort Plan #1 proceed with emergent heart catheterization #2 follow-up with the patient
--- NOTE | 2019-09-15 11:04 | CC ---
CARDIAC CATHETERIZATION REPORT DATE OF SERVICE: 09/15/2019 PERFORMING PHYSICIAN: Primo Moody MD. PROCEDURE PERFORMED: 1. Selective right and left coronary angiogram. 2. Left heart catheterization. INDICATION: This is a very pleasant 59-year-old gentleman who was admitted to the hospital with chest discomfort and mildly abnormal troponin. He continues to have ongoing chest discomfort. Myocardial perfusion imaging stress test was performed and revealed ischemia. Because of that, a heart catheterization was advised. APPROACH: Right common femoral artery. COMPLICATION: None. LEVEL OF SEDATION: Moderate with sedation length of 10 minutes. PROCEDURE DESCRIPTION: After obtaining an informed consent, the patient was brought to the cardiac boat laborer. The right common femoral artery was cannulated using micropuncture technique, the micropuncture wire passed easily, then I placed a 6-[place] sheath at the right common femoral artery. I did selective right and left coronary angiogram with JR4 and JL4 catheters. Left heart catheterization was performed using 6-[place] pigtail catheter. The procedure was completed without any complication. SELECTIVE CORONARY ANGIOGRAM: 1. The right coronary artery is a large caliber vessel and it is a dominant vessel. It is angiographically normal. Distally bifurcates into PDA and PLV branches, both appeared to be angiographically normal. 2. The left main is angiographically normal, it bifurcates into left circumflex, ramus intermedius, and left anterior descending artery. 3. Left circumflex is a large caliber vessel and a nondominant vessel and is angiographically normal. It gives rise into the first and second obtuse marginal branches, both appeared to be angiographically normal. 4. The ramus intermedius is a large caliber vessel and seems to be angiographically normal. 5. The LAD is a large caliber vessel. The proximal LAD angiographically normal. The mid LAD is stented with mild in-stent restenosis and the LAD distally appeared to be angiographically normal. There was ALICIA 2 flow in the LAD. The LAD gives rise into first and second diagonal branches, both appeared to be angiographically normal. 6. HEMODYNAMICS: The LVEDP was 10 mmHg without significant gradient across the aortic valve. CONCLUSION: 1. Patent stent in the mid left anterior descending artery. 2. Postprocedure management is medical treatment. 3. Follow up with the patient. MMODL / IJN: [id number] /
[2019-09-15] MEDS: FERROUS SULFATE 325 MG TAB PO SCH (12:22)
--- NOTE | 2019-09-15 14:25 | CDI ---
Documentation Clarification Form Date: 09/15/2019 01:41:21 PM From: Erika Simons RN CCDS Admit Date: 09/10/2019 11:34:00 PM Patient Name: Lele Scott Visit Number: [id number] Discharge Date: ATTENTION: The Clinical Documentation Specialists (CDI) and [facility] Coding Staff appreciate your assistance in clarifying documentation. Please respond to the clarification below the line at the bottom and electronically sign. The CDI & [facility] Coding staff will review the response and follow-up if needed. Please note: Queries are made part of the Legal Health Record. If you have any questions, please contact the author of this message via ITS. Dr. Chu Fry MD The diagnosis NSTEMI was documented in the H&P but is not noted in subsequent documentation. History/Risk Factors: 59-year-old male presents to the ED for chest pain suicidal ideation and alcohol intoxication. The patient reports chest pain started yesterday after smoking crack. Medical history: CAD, HLD, [place] in 2004 and Cardiac stents x3. Clinical Indicators: 09/10 Cardiology Consult - NSTEMI 09/10 Internal Medicine Troponin elevation flat and felt to be due to cocaine use. Chest pain with history of CAD suspect related to cocaine abuse. 09/11- Cardiology progress notes mild non-ST deviation myocardial infarction 09/14 Cardiology The patient was seen today 09/14. He was experiencing ongoing chest discomfort. A bedside EKG was performed and showed sinus rhythm with ST segment elevation in the lateral leads. I advised proceeding with an emergent heart catheterization. 09/14 Selective right and left coronary angiogram. Left heart catheterization: Conclusion: patent stent in the mid left anterior descending artery. Post- procedure management is medical treatment. Treatment: Cardiology consult above, 09/09 Heparin IV x 1 followed by Ivpb; 09/13 Stress Test 09/14 Cardiac Catheterization Please clarify if the NSTEMI was Present/active this admission Treated and resolved this admission Ruled out Other, please specify Clinically unable to determine NSTEMI present during this admission likely vasospastic from cocaine use. (Last Query Form Revision: October 2018) [place]
--- NOTE | 2019-09-15 17:07 | P.DS ---
Providers Date of admission: 09/10/19 23:34 Expected date of discharge: 09/15/19 Attending physician: Melissa Joyce MD Consults: 09/10/19 23:44 Consult Physician Urgent Consulting Provider: Deanne Starr Consult Reason/Comments: NSTEMI Do you want consulting provider notified?: Yes 09/11/19 01:13 Consult Physician Routine Consulting Provider: Desmond Reynaga Consult Reason/Comments: suicide ideation Do you want consulting provider notified?: Yes, Notify in am Primary care physician: Physician Nonstaff Hospital Course: Patient is a 59-year-old -Tuvaluan male with known coronary artery disease status post stents, myocardial infarction, depression, bipolar, polysubstance abuse who presented to the ER with complaints of chest pain. Of note patient was recently admitted to the mental health care unit and was discharged in July 2019. He is also had multiple hospitalizations for her chest pain, most recent cardiac catheterization was performed in November 2018 and showed a patent stent. On arrival to the ER he was still having significant chest pain. His vital signs were within normal limits. Initial laboratory analysis showed mildly elevated troponin at 0.108, hemoglobin 11.7. An UDS was positive for cocaine. Initial chest x-ray was negative, EKG demonstrated prolonged QT but no significant ST-T wave changes. He was started on a heparin drip and given aspirin. He was not given nitroglycerin secondary to history of an ALLERGY but did receive a dose of morphine. He was admitted to the selective care unit. Cardiology was consulted. They recommended obtaining a 2-D echocardiogram as well as resuming his metoprolol to 12.5, Lipitor 40, aspirin 81 mg daily. 2 expressing suicidal ideation he was seen by psychiatry. They recommended continued one-to-one and holding psychotropic medication as well as transfer to the mental health unit once medically stable. Cardiology recommended discontinuing his heparin drip and felt that his troponin elevation is likely secondary to cocaine use. He continued to complain of chest pain. He was started on norco and ultram without relief. He was give a trial of GI cocktail which he states did not help much. He is allergic to nitrates. On the morning of 09/12 his chest pain had improved but was not fully resolved. He underwent stress test which is positive. Cardiac cath performed by cardiology which showed patent stent to the LAD. Patient was seen and examined after his cardiac cath. No acute events overnight. Patient reports 10 out of 10 diffuse chest pain described as less than sitting on his chest. Requesting IV pain medication as [place] upsets his stomach. Denies any palpitations. No nausea or vomiting. No fever or chills. General: [non toxic], [no distress], [appears at stated age] Derm: [warm], [dry] Head: [atraumatic], [normocephalic], [symmetric] Eyes: [EOMI], [no lid lag], [anicteric sclera] Mouth: [no lip lesion], [mucus membranes moist] Cardiovascular: [S1S2 reg], [no murmur], [positive DP pulse bilateral], Lungs: [CTA bilateral], [no rhonchi, no rales] , [no accessory muscle use] Abdominal: [soft], [ nontender to palpation], [no guarding], [no appreciable organomegaly] Ext: [no gross muscle atrophy], [no edema], [no contractures] Neuro: [no focal neuro deficits] Psych: [Alert], [oriented], [appropriate affect] Chest pain with hx of CAD -Suspect related to cocaine abuse - ASA, BB, statin -Started on Plavix -Cardiology recommendations appreciated: Stress test positive, cardiac cath shows patent LAD stent -Telemetry -Echo with preserved EF 55-60% and LVH -Lipid profile normal Troponin elvation - flat and felt to be due to cocaine use Depression -Psychiatry recommendations appreciated, plan to transfer the mental health unit when medically stable - stay of psych medications Polysubstance abuse -Cessation Anemia - mild - follow CBC - work up consistent with Fe deficiency anemia in [facility], start iron - outpatient evaluation Alcohol abuse - [facility] protocol -Thiamine, folic acid Tobacco abuse -Cessation -Nicotine replacement chest pain-free [Patient complaining of chest pain. Cardiac cath showing patent stents to the LAD. Suspect pain medication seeking behavior. Refusing oral narcotics wanting IV. He is medically cleared for transfer back to psychiatry unit. This complex discharge took about 45 minutes to complete.] Pertinent Studies: Stress test, echocardiogram Procedures: Cardiac catheterization Patient Condition at Discharge: Stable Plan - Discharge Summary Discharge Rx Participant: Yes New Discharge Prescriptions: New Aspirin 81 mg PO DAILY chew Folic Acid 1 mg PO DAILY tab Ferrous Sulfate [Iron (65 MG Elemental)] 325 mg PO W/LUNCH tab Atorvastatin [Lipitor] 40 mg PO HS tab Multivitamins, Thera [Multivitamin (formulary)] 1 each PO DAILY tab Clopidogrel [Plavix] 75 mg PO DAILY tab Budesonide-Formot 160-4.5 Mcg [Symbicort 160-4.5 Mcg Inhaler] 2 puff INHALATION RT-BID puff Metoprolol Succinate (ER) [Toprol XL] 12.5 mg PO DAILY tab.er.24h Thiamine [Vitamin B-1] 100 mg PO DAILY tab Continue QUEtiapine [SEROquel] 200 mg PO HS Citalopram Hydrobromide [CeleXA] 20 mg PO DAILY Discharge Medication List Citalopram Hydrobromide [CeleXA] 20 mg PO DAILY 09/12/19 [History] QUEtiapine [SEROquel] 200 mg PO HS 09/12/19 [History] Aspirin 81 mg PO DAILY chew 09/15/19 [Rx] Atorvastatin [Lipitor] 40 mg PO HS tab 09/15/19 [Rx] Budesonide-Formot 160-4.5 Mcg [Symbicort 160-4.5 Mcg Inhaler] 2 puff INHALATION RT-BID puff 09/15/19 [Rx] Clopidogrel [Plavix] 75 mg PO DAILY tab 09/15/19 [Rx] Ferrous Sulfate [Iron (65 MG Elemental)] 325 mg PO W/LUNCH tab 09/15/19 [Rx] Folic Acid 1 mg PO DAILY tab 09/15/19 [Rx] Metoprolol Succinate (ER) [Toprol XL] 12.5 mg PO DAILY tab.er.24h 09/15/19 [Rx] Multivitamins, Thera [Multivitamin (formulary)] 1 each PO DAILY tab 09/15/19 [Rx] Thiamine [Vitamin B-1] 100 mg PO DAILY tab 09/15/19 [Rx] Follow up Appointment(s)/Referral(s): Primo Moody MD [STAFF PHYSICIAN] - 1 Week Nonstaff,Physician [Primary Care Provider] - 1-2 days Activity/Diet/Wound Care/Special Instructions: Diet: Cardiac FU PCP within 3 days of DC. FU Cardiology within 1 week of DC. Take all meds as advised. Discharge Disposition: TRANSFER TO PSYCH HOSP/UNIT
[2019-09-16] MEDS: HEPARIN SODIUM,PORCINE 5,000 UNIT/ML 1 ML VIAL SQ SCH ×2 (06:53→08:15)
[2019-09-16] MEDS: ASPIRIN 81 MG PO SCH (08:15)
[2019-09-16] MEDS: CLOPIDOGREL 75 MG TAB PO SCH (08:15)
[2019-09-16] MEDS: MULTIVITAMINS, THERA 1 EACH TAB PO SCH (08:15)
[2019-09-16] MEDS: FOLIC ACID 1 MG TAB PO SCH (08:15)
[2019-09-16] MEDS: THIAMINE 100 MG TAB PO SCH (08:15)
[2019-09-16] MEDS: METOPROLOL SUCCINATE (ER) 25 MG TAB.ER.24H PO SCH (08:15)
[2019-09-16 09:05] VITALS: PULSE 62
[2019-09-16] MEDS: SYMBICORT 160-4.5 MCG INHALER INHALATION SCH (09:05)
--- NOTE | 2019-09-16 10:47 | P.PN ---
Subjective Progress Note Date: 09/16/19 Principal diagnosis: Chest discomfort This is a 59-year-old -[place] gentleman with coronary artery disease and prior stenting as well as hypertension, dyslipidemia, history of smoking, and history of cocaine abuse, was admitted to the hospital with chest discomfort and was found to be positive for cocaine. The patient was treated medically. The patient was seen today, 09/16/2019. The chest discomfort is improved. No symptoms of shortness of breath. Hemodynamically he is stable. The right groin is soft and nontender and without any bruises. From the cardiovascular standpoint of view, the patient can be transferred out of the unit Objective - Vital Signs Vital signs: Vital Signs Temp 98.5 F 09/16/19 08:00 Pulse 62 09/16/19 08:00 Resp 18 09/16/19 08:00 BP 108/78 09/16/19 08:00 Pulse Ox 99 09/16/19 08:00 Intake & Output 09/15/19 09/16/19 09/16/19 18:59 06:59 18:59 Intake Total 815 40 Balance 815 40 Weight 70.6 kg Intake: IV 575 40 Invasive Line 1 50 40 Sodium Chloride 0.9% 1, 375 000 ml @ 75 mls/hr IV . [id number] [facility] Rx#:[id number] Oral 240 Other: Voiding Method Toilet Toilet Toilet # Voids 1 3 - Constitutional General appearance: Present: no acute distress - Respiratory Respiratory: bilateral: CTA - Cardiovascular Rhythm: regular Heart sounds: normal: S1, S2 - Labs CBC & Chem 7: 09/13/19 05:50 09/13/19 05:50 Assessment and Plan Assessment: Assessment #1 mild non-ST deviation myocardial infarction #2 coronary artery disease and prior stenting of the LAD #3 history of smoking #4 history of drug abuse #5 chest discomfort Plan #1 the patient underwent a heart catheterization yesterday showed mild CAD #2 the patient can be transferred out of the unit
[2019-09-16] MEDS: FERROUS SULFATE 325 MG TAB PO SCH (12:10)
--- NOTE | 2019-09-16 12:40 | P.PN ---
Progress Note - Text Progress Note Date: 09/16/19 Interval History: Patient was seen for psychiatric follow-up today and evaluation for possible transfer to the mental health unit. Patient was seen at the bedside as he was watching TV. Patient has a soft tone of voice and stated that he is continuing to feel depressed and anxious. He spoke about being off his medications for 2 weeks prior to coming into the hospital and states that he "didn't like the meds that I was given" and spoke about Seroquel helping him more. He states that he also relapsed on cocaine however was minimizing its effect on his condition. He also states that his chest pain has improved while in the hospital. He claims that he is sleeping poorly at night. He admitted a fair appetite. At this time patient admits to suicidal thoughts however no intent or plan. He denies any homicidal ideations. Patient denies any auditory, visual hallucinations and denies any paranoia or delusions. Mental Status Exam: General Appearance: Patient appears to be tall, thin stated age is alert, directable, and attempts to be cooperative. Wearing hospital gown. Behavior: Patient is calmly seated without any agitated behavior. Timid. Speech: Patient's speech is fluent and nonpressured. Soft spoken. Mood/Affect: Mood is "depressed", affect is congruent and constricted. Suicidality/Homicidality: Patient denies having any suicidal or homicidal ideation intent or plan. Perceptions: Patient denies any visual hallucinations and admits to hearing voices however is vague about what they're saying. Though content/process: There is no evidence of any delusional thought content and thought process is linear and goal-directed. Hope and superficial. Memory and concentration: AOX3, grossly intact for the purposes of this session Judgment and insight: Chronically poor Assessment Major depressive disorder, severe with psychotic features Cocaine use disorder Alcohol use disorder Plan: -At this time patient meets criteria for transfer to inpatient psychiatric unit for further treatment. -Patient has been cleared by cardiology and internal medicine after his an NSTEMI and chest pain. -Patient to be continued on one-to-one sitter until transfer to the mental health unit. -Psychiatry will sign off at this time.
[2019-09-16 13:13] VITALS: BMI 22.9
[2019-09-16 14:50] VITALS: BP 106/74; RESP 16; TEMP 98.6
--- NOTE | 2019-09-16 15:54 | P.PN ---
Subjective Progress Note Date: 09/16/19 Principal diagnosis: Chest pain Patient was seen and examined. No acute events overnight. Yesterday, wanted to contest his discharge. This morning, his more calm. He denies any chest pain, shortness breath or palpitations. No nausea or vomiting. No fever or chills. Objective - Vital Signs Vital signs: Vital Signs Temp 98.6 F 09/16/19 12:00 Pulse 62 09/16/19 12:00 Resp 16 09/16/19 12:00 BP 106/74 09/16/19 12:00 Pulse Ox 99 09/16/19 12:00 Intake & Output 09/15/19 09/16/19 09/16/19 18:59 06:59 18:59 Intake Total 815 40 240 Balance 815 40 240 Weight 70.6 kg 70.6 kg Intake: IV 575 40 Invasive Line 1 50 40 Sodium Chloride 0.9% 1, 375 000 ml @ 75 mls/hr IV . [id number] [facility] Rx#:[id number] Oral 240 240 Other: Voiding Method Toilet Toilet Toilet # Voids 1 3 2 - Exam General: [non toxic], [no distress], [appears at stated age] Derm: [warm], [dry] Head: [atraumatic], [normocephalic], [symmetric] Eyes: [EOMI], [no lid lag], [anicteric sclera] Mouth: [no lip lesion], [mucus membranes moist] Cardiovascular: [S1S2 reg], [no murmur], [positive DP pulse bilateral], Lungs: [CTA bilateral], [no rhonchi, no rales] , [no accessory muscle use] Abdominal: [soft], [ nontender to palpation], [no guarding], [no appreciable organomegaly] Ext: [no gross muscle atrophy], [no edema], [no contractures] Neuro: [no focal neuro deficits] Psych: [Alert], [oriented], [appropriate affect] - Labs CBC & Chem 7: 09/13/19 05:50 09/13/19 05:50 Assessment and Plan Assessment: Chest pain with hx of CAD -Suspect related to cocaine abuse - ASA, BB, statin -Started on Plavix -Cardiology recommendations appreciated: Stress test positive, cardiac cath shows patent LAD stent -Telemetry -Echo with preserved EF 55-60% and LVH -Lipid profile normal Troponin elvation - flat and felt to be due to cocaine use Depression -Psychiatry recommendations appreciated, plan to transfer the mental health unit when medically stable Polysubstance abuse -Cessation Anemia - mild - follow CBC - work up consistent with Fe deficiency anemia in Feburary, start iron - outpatient evaluation Alcohol abuse - [facility] protocol -Thiamine, folic acid Tobacco abuse -Cessation -Nicotine replacement chest pain-free [Cardiac cath showing patent stent to the LAD. He is medically cleared for transfer back to psychiatry unit. Agreeable for transfer to mental health unit.]
[2019-09-16] MEDS ORDERED: ATORVASTATIN 40 MG TAB PO SCH (21:00)
== END 2019-09-16 15:36 | DRG 896 ==
LOC: EC 21:45 → 3SCARD 23:34
PROVIDERS: ADMIT Internal Medicine; ATTEND Internal Medicine
PROC: B2111ZZ Fluoroscopy of Multiple Coronary Arteries using Low Osmolar Contrast (ICD-10-PCS; principal; 2019-09-15 11:10)
PROC: 4A023N7 Measurement of Cardiac Sampling and Pressure, Left Heart, Percutaneous Approach (ICD-10-PCS; principal; 2019-09-15 11:10)
DX: F14.188 Cocaine abuse with other cocaine-induced disorder (principal); I21.A1 Myocardial infarction type 2; R45.851 Suicidal ideations; F32.3 Major depressive disorder, single episode, severe with psychotic features; T82.855A Stenosis of coronary artery stent, initial encounter; F10.129 Alcohol abuse with intoxication, unspecified; I25.10 Atherosclerotic heart disease of native coronary artery without angina pectoris; E78.5 Hyperlipidemia, unspecified; Y92.9 Unspecified place or not applicable; M19.90 Unspecified osteoarthritis, unspecified site; F17.200 Nicotine dependence, unspecified, uncomplicated; D50.9 Iron deficiency anemia, unspecified; R11.0 Nausea; F41.9 Anxiety disorder, unspecified; Z53.29 Procedure and treatment not carried out because of patient's decision for other reasons; I08.1 Rheumatic disorders of both mitral and tricuspid valves; Y83.1 Surgical operation with implant of artificial internal device as the cause of abnormal reaction of the patient, or of later complication, without mention of misadventure at the time of the procedure; Z20.828 Contact with and (suspected) exposure to other viral communicable diseases; I10 Essential (primary) hypertension; Z79.899 Other long term (current) drug therapy; Z79.51 Long term (current) use of inhaled steroids; Z79.82 Long term (current) use of aspirin; Z88.1 Allergy status to other antibiotic agents; Z91.018 Allergy to other foods; I25.2 Old myocardial infarction; Z98.890 Other specified postprocedural states; Z82.49 Family history of ischemic heart disease and other diseases of the circulatory system; Z91.14 Patient's other noncompliance with medication regimen; Z95.5 Presence of coronary angioplasty implant and graft; Z87.898 Personal history of other specified conditions; Z81.1 Family history of alcohol abuse and dependence; Z71.51 Drug abuse counseling and surveillance of drug abuser; Z71.6 Tobacco abuse counseling; Z71.89 Other specified counseling; Z76.5 Malingerer [conscious simulation]
CPT/HCPCS: 36415; 71046; 78452; 80048; 80053; 80061; 80306; 82075; 83735; 84484; 85025; 85610; 85730; 93005; 93017; 93306; 93458; 94640; 96361; 96365; 96375; 96376; 99285

== ENCOUNTER 2019-09-16 16:07 | Inpatient (IN) | payer MEDICARE, MEDICAID ==
[2019-09-16] MEDS ORDERED: ACETAMINOPHEN TAB 325 MG TAB PO PRN (16:10)
[2019-09-16] MEDS ORDERED: MAG HYDROX/AL HYDROX/SIMETH 30 ML CUP PO PRN (16:10)
[2019-09-16] MEDS ORDERED: ZIPRASIDONE 20 MG VIAL IM PRN (16:10)
[2019-09-16] MEDS ORDERED: MAGNESIUM HYDROXIDE 2,400 MG/10 ML CUP PO PRN (16:10)
[2019-09-16] MEDS: LORazepam 1 MG TAB PO PRN (18:04)
[2019-09-16] MEDS: SYMBICORT 160-4.5 MCG INHALER INHALATION SCH (20:21)
[2019-09-16] MEDS: ATORVASTATIN 40 MG TAB PO SCH (20:21)
[2019-09-16] MEDS ORDERED: QUEtiapine 200 MG TAB PO SCH (21:00)
--- NOTE | 2019-09-16 21:38 | P.MDCNMH ---
History of Present Illness H&P Date: 09/16/19 Chief Complaint: depression , suicidal ideation 65-year-old male with history of hypertension, coronary artery disease status post stents, depression and bipolar disorder, polysubstance abuse patient was discharged from the hospital yesterday September 14 after brief hospitalization for chest pain to rule out acute coronary syndrome, due to slightly elevated troponin patient had a urinary tract screen positive for cocaine, patient continued to complain of chest pain he had a positive stress test after which cardiac cath was done and showed patent stents to the LAD. Psychiatry evaluated the patient and accepted him to be admitted to the mental health unit due to suicidal ideation and depression once medically stable. Currently patient has no active physical complaints Review of Systems Pertinent positives as noted in HPI. All other systems were reviewed and are negative Past Medical History Past Medical History: Coronary Artery Disease (CAD), Chest Pain / Angina, Hyperlipidemia, Myocardial Infarction (SD), Osteoarthritis (OA) Additional Past Medical History / Comment(s): Pt denies COPD, arthritis in back and bilateral knees, benign colon polyps Last Myocardial Infarction Date:: 2004 History of Any Multi-Drug Resistant Organisms: None Reported Past Surgical History: Bowel Resection, Heart Catheterization With Stent Additional Past Surgical History / Comment(s): Cardiac stents x 3, bowel surgery for pinpoint hole in bowel, L knee arthroscopy, colonoscopy/benign polypectomies. Past Anesthesia/Blood Transfusion Reactions: No Reported Reaction Date of Last Stent Placement:: 2013 Past Psychological History: Bipolar, Depression, Schizophrenia Smoking Status: Current every day smoker Past Alcohol Use History: Heavy Past Drug Use History: Cocaine, Marijuana - Past Family History Father Family Medical History: Respiratory Disorder Additional Family Medical History / Comment(s): Father at age 64 from Black lung disease Mother Family Medical History: Myocardial Infarction (SD) Additional Family Medical History / Comment(s): Mother of an SD at 78yrs old. Brother(s) Family Medical History: Myocardial Infarction (SD) Additional Family Medical History / Comment(s): Patient has 10 brothers and 2 from myocardial infarction and had history of alcoholism. Sister(s) Additional Family Medical History / Comment(s): He has 7 sisters that are alive with no major medical problems. He has one son that has and one daughter that is alive and okay. Medications and Allergies Home Medications Medication Instructions Recorded Confirmed Type Citalopram Hydrobromide [CeleXA] 20 mg PO DAILY 09/12/19 09/16/19 History QUEtiapine [SEROquel] 200 mg PO HS 09/12/19 09/16/19 History Aspirin 81 mg PO DAILY chew 09/15/19 09/16/19 Rx Atorvastatin [Lipitor] 40 mg PO HS tab 09/15/19 09/16/19 Rx Budesonide-Formot 160-4.5 Mcg 2 puff INHALATION RT-BID puff 09/15/19 09/16/19 Rx [Symbicort 160-4.5 Mcg Inhaler] Clopidogrel [Plavix] 75 mg PO DAILY tab 09/15/19 09/16/19 Rx Ferrous Sulfate [Iron (65 MG 325 mg PO W/LUNCH tab 09/15/19 09/16/19 Rx Elemental)] Folic Acid 1 mg PO DAILY tab 09/15/19 09/16/19 Rx Metoprolol Succinate (ER) [Toprol 12.5 mg PO DAILY tab.er.24h 09/15/19 09/16/19 Rx XL] Multivitamins, Thera [Multivitamin 1 each PO DAILY tab 09/15/19 09/16/19 Rx (formulary)] Thiamine [Vitamin B-1] 100 mg PO DAILY tab 09/15/19 09/16/19 Rx Allergies Allergy/AdvReac Type Severity Reaction Status Date / Time blueberry Allergy Rash/Hives Verified 06/30/19 01:32 nitroglycerin Allergy Swelling Verified 06/30/19 01:32 Physical Exam Vitals: Intake and Output 09/16/19 09/16/19 09/16/19 06:59 14:59 22:59 Other: Weight 70.1 kg Constitutional: No acute distress, conversant, pleasant Eyes: Anicteric sclerae, moist conjunctiva, Pupils equal round reactive to light ENMT: NC/AT Oropharynx clear, no erythema, or exudates Neck: Supple, FROM, no masses, or JVD No carotid bruits No thyromegaly Lungs: Clear to auscultation Clear to percussion Normal respiratory effort, no accessory muscle use Cardiovascular: Heart regular in rate and rhythm, No murmurs, gallops, or rubs No peripheral edema Abdominal: Soft Nontender, no guarding, rebound or rigidity Abdomen moving with respiration Normoactive bowel sounds No hepatomegaly, No splenomegaly No palpable mass No abdominal wall hernia noted Skin: Normal temperature, tone, texture, turgor No induration No subcutaneous nodules No rash, lesions No ulcers Extremities: No digital cyanosis No clubbing Pedal pulses intact and symmetrical Radial pulses intact and symmetrical No calf tenderness Psychiatric: Alert and oriented to person, place and time depressed affect poor judgement Neuro Muscles Strength 5/5 in all 4 extremities Sensation to light touch grossly present throughout Cranial nerves II-XII grossly intact No focal sensory deficits Lymphatics: no palpable cervical or supraclavicular , or inguinal lymph nodes Cranial Nerve Examination - Cranial Nerves Cranial Nerve II- Optic: Intact Cranial Nerve III- Oculomotor: Intact Cranial Nerve IV- Trochlear: Intact Cranial Nerve V- Trigeminal: Intact Cranial Nerve - Abducens: Intact Cranial Nerve VII- Facial: Intact Cranial Nerve VIII- Auditory: Intact Cranial Nerve IX- Glossopharyngeal: Intact Cranial Nerve X- Vagus: Intact Cranial Nerve XI- Accessory: Intact Cranial Nerve XII- Hypoglossal: Intact Assessment and Plan Assessment: Suicidal ideation and depression Medical noncompliance Management per psych Hypertension currently controlled continue home medications Coronary artery disease status post stents continue with aspirin and Lipitor and Plavix Thank you for allowing us to participate in the care of this patient. We will follow peripherally. Do not hesitate to contact us with questions. Someone can be reached from the [facility] hospitalist group at all hours of the day at [phone].
[2019-09-17] MEDS: NICOTINE 14MG/24HR PATCH TRANSDERM SCH (08:25)
[2019-09-17] MEDS: FOLIC ACID 1 MG TAB PO SCH (08:26)
[2019-09-17] MEDS: THIAMINE 100 MG TAB PO SCH (08:26)
[2019-09-17] MEDS: CLOPIDOGREL 75 MG TAB PO SCH (08:26)
[2019-09-17] MEDS: ASPIRIN 81 MG PO SCH (08:26)
[2019-09-17] MEDS: METOPROLOL SUCCINATE (ER) 25 MG TAB.ER.24H PO SCH (08:26)
[2019-09-17] MEDS: MULTIVITAMINS, THERA 1 EACH TAB PO SCH (08:26)
[2019-09-17] MEDS: SYMBICORT 160-4.5 MCG INHALER INHALATION SCH ×2 (08:27→21:13)
[2019-09-17] MEDS ORDERED: CITALOPRAM HYDROBROMIDE 20 MG TAB PO SCH (09:00)
[2019-09-17] MEDS ORDERED: DULoxetine HCL 30 MG CAPSULE.DR PO SCH (09:00)
[2019-09-17 10:13] LABS: Cholesterol 120 mg/dL (<200); HDL Cholesterol 89 mg/dL (40-60); LDL Cholesterol,Calculated 22 mg/dL (0-99); Triglycerides 46 mg/dL (<150)
--- NOTE | 2019-09-17 10:13 | P.HP ---
Psychiatric H&P - . H&P Date: 09/17/19 History & Physical: Allergies Allergy/AdvReac Type Severity Reaction Status Date / Time blueberry Allergy Rash/Hives Verified 06/30/19 01:32 nitroglycerin Allergy Swelling Verified 06/30/19 01:32 Vital Signs Temp 98.6 F 09/17/19 06:53 Pulse 93 09/17/19 08:30 Resp 16 09/17/19 06:53 BP 115/87 09/17/19 08:30 Pulse Ox 98 09/16/19 17:30 Intake & Output 09/16/19 09/17/19 09/17/19 18:59 06:59 18:59 Weight 70.1 kg 69.4 kg 09/17/19 10:02 IDENTIFYING DATA: He is a 59-year-old single -B[place] male known to psychiatry service from his multiple past admissions to [facility]. He presented to the Medical Center with complaints of chest pain, suicidal ideation and alcohol intoxication. The hospitalist consult to psychiatry for the suicidal ideation. HISTORY OF PRESENT ILLNESS: Patient was initially seen by Dr. Lowry for psychiatric consultation after being admitted to the medical floors for and an NSTEMI along with suicidal thoughts and depression. Patient admitted that he stopped taking his psychotropic medication "a week or so" after his last discharge from the psychiatric unit. He complained of experiencing increasingly troubling auditory hallucinations (" voices"). The voices were distressing and commanding. He alleged that "they" were telling him to "hurt myself" and "hurt other people." In response to the "voices" he broke furniture and smashed the window in his apartment. His brother, who lives in [place], called him the day of admission and apparently was so concerned that he called the EMS. In the EC he complained of chest pain that began after smoking crack cocaine the day prior to admission. His UDS was positive for cocaine. His BAL was 0.172. Sequential troponins were elevated. Patient was seen by functional tester typewriters prior to discharge from the medical floors and also on admission today and continues to complained of feeling depressed and having thoughts of or suicide. He denied a specific plan or intent. He alleged she only smoked cocaine "only once" and only drinking "a few beers." He states that the cocaine was "laced in a cigarette" and states that that made him feel depressed. He also claimed that he's been off his medications for 2 weeks and wanted to get started back on Seroquel and Cymbalta as he states that these medications helped him the most in the past. He described ongoing and distressing auditory hallucinations at times however denied any current auditory hallucinations or visual hallucinations. He did not endorse any paranoia or delusions. PAST PSYCHIATRIC HISTORY: He has an extensive psychiatric history with multiple admissions with at least 16 to our psychiatric unit. In addition, he has been admitted to other [facility] hospital's. He seldom follows through with outpatient mental health treatment. PAST MEDICAL HISTORY: Coronary artery disease, hyperlipidemia, history of myocardial infarct, osteoarthritis ALLERGIES: Nitroglycerin SUBSTANCE USE HISTORY: He minimizes the severity of his substance abuse problems According to record he's been using cocaine for the last 9 years and last used some time prior to admission. He has been using alcohol since he was 34 years old and last used the day of admission. He is alleging that over the last 2 weeks he's been drinking approximately "a couple" beers per day. He has been in at least one substance abuse treatment program. FAMILY PSYCHIATRIC/SUBSTANCE USE HISTORY: He alleged that 2 of his brothers by suicide. LEGAL HISTORY: He denied current legal problems. SOCIAL HISTORY: His born and raised in [place]. He completed the 12th grade. His parents are . He alleged she worked for [employer] and retired 15 years ago. He currently receives so security disability. He lives alone in an apartment. MENTAL STATUS EXAM: General Appearance: Patient appears to be stated age is alert, directable, and attempts to cooperate. Patient appears to have poor hygiene and grooming. Behavior: Patient is seated without any agitated behavior. Attempts to cooperate Speech: Patient's speech is fluent and nonpressured. Soft tone Mood/Affect: Patient reports their mood is depressed, affect is congruent and constricted. Suicidality/Homicidality: Patient denies having any homicidal ideation intent or plan. Minute to fleeting thoughts of suicide however no intent or plan Perceptions: Patient denies any visual hallucinations and denies any auditory hallucinations Though content/process: There is no evidence of any delusional thought content and thought process is linear and goal-directed. [place], poverty of content. Memory and concentration: AOX3, grossly intact for the purposes of this session. Can spell "WORLD" backwards Judgment and insight: poor STRENGTHS/WEAKNESSES: strength is that patient is resilient. Weakness is that patient has poor judgment and has chronic polysubstance abuse INTELLECT: Below average IMPRESSIONS: Major depressive disorder, severe with psychotic features Cocaine use disorder Alcohol use disorder Nicotine dependence PLAN: -Patient is admitted under voluntary status to MHU for stabilization of psychiatric symptoms and safety. Patient signed adult voluntary form and medication consent and is placed in patient's chart. -Medications : Will start patient on Seroquel and titrated up to a dose of 300 mg daily at bedtime tonight for mood stabilization/insomnia, will increase Cymbalta to 60 mg daily for mood/anxiety. -Ativan and Geodon PRN for agitation/aggression -Patient was counselled on substance abuse and desired to cut back on use however was superficial about this -Patient was informed of the risks, benefits and side effects of the medication and patient verbally consented to taking the medications. Patient signed med consent form and was placed in chart. -Internal Medicine consult to perform medical evaluation and physical. -NRT - nicotine patch -SW on board for discharge planning. Encourage patient to participate in groups to work on coping skills. 09/17/19 10:03 09/17/19 10:12
[2019-09-17] MEDS: LORazepam 1 MG TAB PO PRN (12:56)
[2019-09-17] MEDS: FERROUS SULFATE 325 MG TAB PO SCH (12:56)
[2019-09-17 18:06] LABS: Hemoglobin A1C 5.4 % (4.0-6.0)
[2019-09-17] MEDS: ATORVASTATIN 40 MG TAB PO SCH (21:13)
[2019-09-17] MEDS: QUEtiapine 100 MG TAB PO SCH (21:13)
[2019-09-18] MEDS: MULTIVITAMINS, THERA 1 EACH TAB PO SCH (08:46)
[2019-09-18] MEDS: SYMBICORT 160-4.5 MCG INHALER INHALATION SCH ×2 (08:46→20:35)
[2019-09-18] MEDS: NICOTINE 14MG/24HR PATCH TRANSDERM SCH (08:46)
[2019-09-18] MEDS: DULoxetine HCL 60 MG CAPSULE.DR PO SCH (08:46)
[2019-09-18] MEDS: FOLIC ACID 1 MG TAB PO SCH (08:46)
[2019-09-18] MEDS: THIAMINE 100 MG TAB PO SCH (08:46)
[2019-09-18] MEDS: METOPROLOL SUCCINATE (ER) 25 MG TAB.ER.24H PO SCH (08:47)
[2019-09-18] MEDS: ASPIRIN 81 MG PO SCH (08:47)
[2019-09-18] MEDS: CLOPIDOGREL 75 MG TAB PO SCH (08:47)
--- NOTE | 2019-09-18 11:39 | P.PN ---
Progress Note - Text Progress Note Date: 09/18/19 Interval history: Patient was seen laying down in bed this morning and was directable and agree able to speak with field underwriter. Patient got out of bed and spoke with field underwriter in the hallways. He states that he is doing "a bit better today" states that his mood is been gradually improving on the medications. He denied any pain or any other issues overnight and states that he slept well. He claims that he is very thankful for being on the unit and for the help that he is getting. He claims that he did go to some groups and spoke to field underwriter about what he thought of the groups and was trying to participate. At this time patient denies any suicidal or homicidal ideations intent or plan. Denies any Auditory or visual hallucinations. Patient denies any side effects from the medications and has been compliant with meds. Mental status exam: General Appearance: Patient appears to be stated age is alert, directable, and cooperative. Wearing street clothing Behavior: No agitated behavior. Patient is calm and directable. Polite Speech: Patient's speech is fluent and nonpressured. Mood/Affect: Mood is improving mildly, affect is congruent and constricted. Suicidality/Homicidality: Patient denies having any suicidal or homicidal ideation intent or plan. Perceptions: Patient denies any auditory or visual hallucinations. Though content/process: There is no evidence of any delusional thought content and thought process is linear and goal-directed. Polite. Memory and concentration: AOX3, grossly intact for the purposes of this session Judgment and insight: improving mildly Assessment/Plan: Continue with current diagnosis. Patient continues to meet criteria for inpatient psychiatric admission for symptom stabilization and safety.Patient will be maintained on current psychotropic medication regimen. Monitor for medication compliance and for any psychotropic medication side effects. Will continue to monitor ongoing response to treatment. Encouraged participation in milieu.
[2019-09-18] MEDS: FERROUS SULFATE 325 MG TAB PO SCH (12:25)
[2019-09-18 12:31] VITALS: BMI 22.6
[2019-09-18] MEDS: QUEtiapine 100 MG TAB PO SCH (20:35)
[2019-09-18] MEDS: ATORVASTATIN 40 MG TAB PO SCH (20:35)
[2019-09-19] MEDS: ASPIRIN 81 MG PO SCH (08:52)
[2019-09-19] MEDS: MULTIVITAMINS, THERA 1 EACH TAB PO SCH (08:53)
[2019-09-19] MEDS: DULoxetine HCL 60 MG CAPSULE.DR PO SCH (08:53)
[2019-09-19] MEDS: FERROUS SULFATE 325 MG TAB PO SCH (08:53)
[2019-09-19] MEDS: METOPROLOL SUCCINATE (ER) 25 MG TAB.ER.24H PO SCH (08:53)
[2019-09-19] MEDS: CLOPIDOGREL 75 MG TAB PO SCH (08:53)
[2019-09-19] MEDS: THIAMINE 100 MG TAB PO SCH (08:53)
[2019-09-19] MEDS: FOLIC ACID 1 MG TAB PO SCH (08:53)
[2019-09-19] MEDS: NICOTINE 14MG/24HR PATCH TRANSDERM SCH (08:54)
[2019-09-19] MEDS: SYMBICORT 160-4.5 MCG INHALER INHALATION SCH ×2 (09:43→22:11)
[2019-09-19] MEDS: LORazepam 1 MG TAB PO PRN (12:13)
--- NOTE | 2019-09-19 14:21 | P.PN ---
Progress Note - Text Progress Note Date: 09/19/19 I reviewed medical records ,did interview patient and case was discussed in treatment team I reviewed medical consult and records when he was on medical unit : assessment :Hypertension currently controlled continue home medications Coronary artery disease status post stents continue with aspirin and Lipitor and Plavix Interval history: Patient was laying in bed and agreed to follow me to office ,he was cooperative ,pleasant ,he stated that he was clean for 6 months from cocaine and he relapsed prior to admission ,according to him he was participating in NA and AA in his hol[place] and going to [facility] but he stopped couple of weeks prior to admission. He claimed that he used cocaine "only once" and only drinking "a few beers." He states that the cocaine was "laced in a cigarette" and states that that made him feel depressed. He also claimed that he's been off his medications for 2 weeks His UDS was positive for cocaine. His BAL was 0.172. On 09/09 troponins were elevated and he was admitted to medical floor from 09/09 till 09/14 treated for [place] Today he denies any current suicidal or homicidal ideation ,reports guilt feeling due to relapse on Cocaine and alcohol ,he stated that hallucinations subsided since he is back on Seroquel,he rates his depression and anxiety ,both 4/10,10 being the worst Mental status exam: He was withdrawn but cooperative. He was pleasant on approach and made eye contact. His speech was non spontaneous but coherent ,normal in tone and rythm. He said that he is overwhelmed with his medical problems and recent heart attack,he dis express guilt feeling related to his relapse on cocaine He did not express suicidal ideation, wishes or deven icidal ideation. He was not as guarded or paranoid ,denies any hallucination or delusional thinking . His insight and judgment are limited ASSESSMENT: Major depressive disorder, severe with psychotic features Cocaine use disorder Alcohol use disorder Nicotine dependence PLAN: continue Cymbalta for depression ,Seroquel 300 mg HS for psychosis Patient continues to meet criteria for inpatient psychiatric admission for symptom stabilization and safety. Monitor for medication compliance and for any psychotropic medication side effects. Will continue to monitor ongoing response to treatment. Encouraged participation in milieu.
[2019-09-19] MEDS: QUEtiapine 100 MG TAB PO SCH (20:04)
[2019-09-19] MEDS: ATORVASTATIN 40 MG TAB PO SCH (20:04)
[2019-09-20] MEDS: ASPIRIN 81 MG PO SCH (08:25)
[2019-09-20] MEDS: THIAMINE 100 MG TAB PO SCH (08:26)
[2019-09-20] MEDS: METOPROLOL SUCCINATE (ER) 25 MG TAB.ER.24H PO SCH (08:26)
[2019-09-20] MEDS: DULoxetine HCL 60 MG CAPSULE.DR PO SCH (08:26)
[2019-09-20] MEDS: CLOPIDOGREL 75 MG TAB PO SCH (08:26)
[2019-09-20] MEDS: FOLIC ACID 1 MG TAB PO SCH (08:26)
[2019-09-20] MEDS: MULTIVITAMINS, THERA 1 EACH TAB PO SCH (08:26)
[2019-09-20] MEDS: NICOTINE 14MG/24HR PATCH TRANSDERM SCH (08:27)
[2019-09-20] MEDS: SYMBICORT 160-4.5 MCG INHALER INHALATION SCH ×2 (08:28→21:02)
--- NOTE | 2019-09-20 09:18 | P.PN ---
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 He was pleasant on approach and made eye contact. His speech was non spontaneous but coherent ,normal in tone and rythm. He said that he is overwhelmed with his medical problems and recent heart attack,he endorses guilt feeling related to his relapse on cocaine He did not express suicidal ideation, wishes or homicidal ideation. He was not as guarded or paranoid ,denies any current hallucination or delusional thinking . His insight and judgment are improving but his insight regarding his addiction is still limited ASSESSMENT: Major depressive disorder, severe with psychotic features Cocaine use disorder Alcohol use disorder Nicotine dependence PLAN: continue Cymbalta for depression ,Seroquel 300 mg HS for psychosis Patient continues to meet criteria for inpatient psychiatric admission for symptom stabilization and safety. Monitor for medication compliance and for any psychotropic medication side effects. Will continue to monitor ongoing response to treatment. Encouraged participation in milieu. SW on board for post-discharge disposition
[2019-09-20] MEDS: FERROUS SULFATE 325 MG TAB PO SCH (12:42)
[2019-09-20] MEDS: LORazepam 1 MG TAB PO PRN (12:44)
[2019-09-20] MEDS: QUEtiapine 100 MG TAB PO SCH (21:02)
[2019-09-20] MEDS: ATORVASTATIN 40 MG TAB PO SCH (21:02)
[2019-09-21] MEDS: METOPROLOL SUCCINATE (ER) 25 MG TAB.ER.24H PO SCH (08:22)
[2019-09-21] MEDS: NICOTINE 14MG/24HR PATCH TRANSDERM SCH (08:22)
[2019-09-21] MEDS: SYMBICORT 160-4.5 MCG INHALER INHALATION SCH ×2 (08:22→21:20)
[2019-09-21] MEDS: CLOPIDOGREL 75 MG TAB PO SCH (08:23)
[2019-09-21] MEDS: MULTIVITAMINS, THERA 1 EACH TAB PO SCH (08:23)
[2019-09-21] MEDS: FOLIC ACID 1 MG TAB PO SCH (08:23)
[2019-09-21] MEDS: THIAMINE 100 MG TAB PO SCH (08:23)
[2019-09-21] MEDS: ASPIRIN 81 MG PO SCH (08:23)
[2019-09-21] MEDS: DULoxetine HCL 60 MG CAPSULE.DR PO SCH (08:23)
[2019-09-21] MEDS: LORazepam 1 MG TAB PO PRN (08:24)
[2019-09-21] MEDS ORDERED: hydrOXYzine pamoate 25 MG CAP PO PRN (10:04)
--- NOTE | 2019-09-21 10:14 | P.PN ---
Progress Note - Text Progress Note Date: 09/21/19 I reviewed medical records ,did interview patient and case was discussed in treatment team Given PRN Ativan last night and this morning He slept 6 hours Did not participate in groups activities Interval history: Patient was laying in bed and agreed to follow me to office ,he was cooperative ,pleasant ,he stated that he has been hearing voices since last night that is why he asked for PRN,he was able to elaborate more about content of these voices ,he denies any command voices Today he denies any current suicidal or homicidal ideation ,reports high anxiety ,rates anxiety 11/18 "I am scared to be discharged soon " Mental status exam: He was withdrawn but cooperative. He was pleasant on approach and made eye contact. His speech was non spontaneous but coherent ,normal in tone and rythm. he stated that his anxiety is high as auditory hallucinations are louder He did not express suicidal ideation, wishes or homicidal ideation. He was guarded and evasive ,denies delusional thinking . His insight and judgment are limited but his insight regarding his addiction is poor ASSESSMENT: Major depressive disorder, severe with psychotic features Cocaine use disorder Alcohol use disorder Nicotine dependence PLAN: continue Cymbalta for depression , increase Seroquel 400 mg HS for psychosis . Discontinue PRN Ativan to avoid cross addiction and replaced by Vistaril prn Patient continues to meet criteria for inpatient psychiatric admission for symptom stabilization and safety. Monitor for medication compliance and for any psychotropic medication side effects. Will continue to monitor ongoing response to treatment. Encouraged participation in milieu.
[2019-09-21] MEDS: FERROUS SULFATE 325 MG TAB PO SCH (12:39)
[2019-09-21] MEDS: QUEtiapine 400 MG TAB PO SCH (21:20)
[2019-09-21] MEDS: ATORVASTATIN 40 MG TAB PO SCH (21:20)
--- NOTE | 2019-09-22 08:10 | P.PN ---
Progress Note - Text Progress Note Date: 09/22/19 I reviewed medical records ,did interview patient and case was discussed in treatment team TODAY VITALS:temp:98.7,pulse:69,R:18,BP:107/55 He slept 7 hours Did not participate in groups activities No PRN ,no behavioral issue Interval history: Patient was laying in bed and agreed to follow me to office ,he was cooperative ,pleasant ,he stated that "Voices are much less with higher dose of Seroquel",appetite is fair ,slept 7 hours last night without having any nightmares,endorses:poor energy and lacking motivation ,endorses high anxiety related to his medical problems ,discussed with how Cocaine affecting his physical and mental illness he verbalized understanding but he is still resista nt to be referred to any residential rehab when he will be discharged Today he denies any current suicidal or homicidal ideation , denies any delusional thinking Mental status exam: He was withdrawn but cooperative. He was pleasant on approach and made eye contact. His speech was non spontaneous but coherent ,normal in tone and rythm. He said that he is overwhelmed with his medical problems and recent heart attack,he stated that auditory hallucinations are not loud as before . He did not express suicidal ideation, wishes or homicidal ideation. He was not as guarded or paranoid as before ,denies any current delusional thinking . His insight and judgment are improving but his insight regarding his addiction is still limited ASSESSMENT: Major depressive disorder, severe with psychotic features Cocaine use disorder Alcohol use disorder Nicotine dependence PLAN: continue Cymbalta for depression ,Seroquel 400 mg HS for psychosis Patient continues to meet criteria for inpatient psychiatric admission for symptom stabilization and safety. Monitor for medication compliance and for any psychotropic medication side effects. Will continue to monitor ongoing response to treatment. Encouraged participation in milieu. SW on board for post-discharge disposition
[2019-09-22] MEDS: SYMBICORT 160-4.5 MCG INHALER INHALATION SCH ×2 (09:48→20:54)
[2019-09-22] MEDS: ASPIRIN 81 MG PO SCH (09:48)
[2019-09-22] MEDS: DULoxetine HCL 60 MG CAPSULE.DR PO SCH (09:49)
[2019-09-22] MEDS: MULTIVITAMINS, THERA 1 EACH TAB PO SCH (09:49)
[2019-09-22] MEDS: CLOPIDOGREL 75 MG TAB PO SCH (09:49)
[2019-09-22] MEDS: FOLIC ACID 1 MG TAB PO SCH (09:49)
[2019-09-22] MEDS: THIAMINE 100 MG TAB PO SCH (09:49)
[2019-09-22] MEDS: NICOTINE 14MG/24HR PATCH TRANSDERM SCH (09:51)
[2019-09-22] MEDS: METOPROLOL SUCCINATE (ER) 25 MG TAB.ER.24H PO SCH (10:06)
[2019-09-22] MEDS: FERROUS SULFATE 325 MG TAB PO SCH (12:16)
[2019-09-22] MEDS ORDERED: DOCUSATE 100 MG CAP PO PRN (13:05)
[2019-09-22] MEDS: QUEtiapine 400 MG TAB PO SCH (20:54)
[2019-09-22] MEDS: ATORVASTATIN 40 MG TAB PO SCH (20:54)
[2019-09-23 06:54] VITALS: RESP 16; TEMP 98
[2019-09-23] MEDS: METOPROLOL SUCCINATE (ER) 25 MG TAB.ER.24H PO SCH (08:16)
[2019-09-23] MEDS: FOLIC ACID 1 MG TAB PO SCH (08:16)
[2019-09-23] MEDS: CLOPIDOGREL 75 MG TAB PO SCH (08:16)
[2019-09-23] MEDS: DULoxetine HCL 60 MG CAPSULE.DR PO SCH (08:16)
[2019-09-23] MEDS: MULTIVITAMINS, THERA 1 EACH TAB PO SCH (08:16)
[2019-09-23] MEDS: ASPIRIN 81 MG PO SCH (08:17)
[2019-09-23] MEDS: THIAMINE 100 MG TAB PO SCH (08:17)
[2019-09-23] MEDS: NICOTINE 14MG/24HR PATCH TRANSDERM SCH (08:19)
[2019-09-23 10:58] VITALS: BP 100/67; PULSE 112
--- NOTE | 2019-09-23 14:35 | DS ---
DISCHARGE SUMMARY DATE OF ADMISSION: 09/17/2019. DATE OF DISCHARGE: 09/23/2019. [facility] ROOM OPERATOR: Dr. Lyudmila Joyce for H and P and followup. HISTORY OF PRESENT ILLNESS: The patient is a 59 years, male, who was on the medical floor for chest pain. In addition, he was verbalizing suicidal ideation. Patient stated that he stopped all his psychotropic medication 1 week or so after he was discharged from our facility and he started having trouble with auditory hallucination, voices commanding him to hurt himself and hurt other people and he stated that he has been depressed due to his medical condition. For complete history and physical examination, please refer fair to Dr. Ceja's dictation on September 16. HOSPITAL COURSE: The patient was admitted on a voluntary basis. He was started back on Cymbalta 60 mg daily and Seroquel 300 mg daily. However, he was always asking for the p.r.n. Ativan. He did not participate in any group. He was just out for watching TV or for meal, so I did discontinue the Ativan and he was giving hydroxyzine p.r.n. for anxiety. Prior to his discharge, he stated that he was still hearing voices. The Seroquel was increased to 400 mg and on the day of discharge, he stated that the voices had been gone completely. He denied any auditory hallucination or suicidal or homicidal ideation. I did have a lengthy discussion with him about referal to chemical dependency program as at the time of his admission to the medical floor, his urine drug screen was positive for cocaine and his blood alcohol was 0.172. Patient declined more than once and stated that he can do it in outpatient setting and to attend recovery group. MENTAL STATUS EXAMINATION: At the time of discharge, the patient appears his stated age. He is alert, cooperative. Fair hygiene and grooming. There is no psychomotor agitation. His speech is nonspontaneous but coherent, very soft voice. He stated mood is "better." Affect is constricted. He denied having any homicidal ideation, intent, or plan. He denied having any suicidal ideation, intent, or plan. He denied any visual or auditory hallucination. There is no evidence of delusional thinking and his thought process was linear and goal directed. Memory is grossly intact. Insight and judgment are fair. However, his insight into his addiction is questionable. DISCHARGE DIAGNOSES: 1. Major depressive disorder with psychotic features, in remission. 2. Cocaine use disorder. 3. Alcohol use disorder. 4. Nicotine dependence. PLAN: Patient will be referred to dual diagnosis [facility]. The patient was instructed to abstain completely from alcohol and illicit drug use. The patient was given a 2 week supply of Cymbalta 60 mg daily, Seroquel 400 mg at bedtime, hydroxyzine 25 mg as needed for anxiety. He was given 21 tablets. I did discuss with him compliance with followup after he will be discharged from here. Prognosis fair with complete abstinence from cocaine and alcohol and compliance with followup treatment. MMODL / IJN: [id number] /
== END 2019-09-23 12:00 | disposition home or self-care (01) | DRG 885 ==
LOC: 3MHU 16:07
PROVIDERS: ADMIT Psychiatry & Neurology Psychiatry; ATTEND Psychiatry & Neurology Psychiatry
DX: F32.3 Major depressive disorder, single episode, severe with psychotic features (principal); I21.4 Non-ST elevation (NSTEMI) myocardial infarction; R45.851 Suicidal ideations; F14.10 Cocaine abuse, uncomplicated; F10.129 Alcohol abuse with intoxication, unspecified; Z91.19 Patient's noncompliance with other medical treatment and regimen; F41.9 Anxiety disorder, unspecified; I10 Essential (primary) hypertension; I25.10 Atherosclerotic heart disease of native coronary artery without angina pectoris; I25.2 Old myocardial infarction; Y90.6 Blood alcohol level of 120-199 mg/100 ml; E78.5 Hyperlipidemia, unspecified; M17.0 Bilateral primary osteoarthritis of knee; M47.9 Spondylosis, unspecified; F17.200 Nicotine dependence, unspecified, uncomplicated; Z79.02 Long term (current) use of antithrombotics/antiplatelets; Z79.82 Long term (current) use of aspirin; Z79.51 Long term (current) use of inhaled steroids; Z79.899 Other long term (current) drug therapy; Z71.51 Drug abuse counseling and surveillance of drug abuser; Z95.5 Presence of coronary angioplasty implant and graft; Z86.010 Personal history of colon polyps; Z87.19 Personal history of other diseases of the digestive system; Z90.49 Acquired absence of other specified parts of digestive tract; Z98.890 Other specified postprocedural states; Z88.8 Allergy status to other drugs, medicaments and biological substances; Z91.018 Allergy to other foods; Z83.6 Family history of other diseases of the respiratory system; Z82.49 Family history of ischemic heart disease and other diseases of the circulatory system; Z81.1 Family history of alcohol abuse and dependence
CPT/HCPCS: 80061; 83036

== ENCOUNTER 2019-11-13 13:32 | Observation (INO) | payer MEDICARE, OTHER ==
--- NOTE | 2019-11-13 13:41 | ED ---
General Adult HPI - General Stated complaint: STEMI Source: patient Mode of arrival: ambulatory Limitations: no limitations - History of Present Illness Initial comments: Dictation was produced using [employer] dictation software. please excuse any grammatical, word or spelling errors. This patient was cared for during a federal and state declared state of emergency secondary to Covid 19 Chief Complaint: 59-year-old male presents with chest pain History of Present Illness: Is a 59-year-old male who presents today via EMS. Patient was at home when he called EMS. Patient reports that he has been having chest pressure since yesterday. He has history of coronary artery bypass grafti ng to multiple vessels. Patient describes the symptoms as like an elephant sitting on his chest. Symptoms are constant since yesterday. Denies any associated diaphoresis nausea. No radiation to the jaw shoulders or extremities. Patient's nursing clerk is based out [facility] patient had several alcoholic beverages yesterday. The ROS documented in this emergency department record has been reviewed and confirmed by me. Those systems with pertinent positive or negative responses have been documented in the HPI. All other systems are other negative and/or noncontributory. PHYSICAL EXAM: General Impression: Alert and oriented x3, not in acute distress, nondiaphoretic HEENT: Normocephalic atraumatic, extra-ocular movements intact, pupils equal and reactive to light bilaterally, mucous membranes moist. Cardiovascular: Heart regular rate and rhythm Chest: Able to complete full sentences, no retractions, no tachypnea Abdomen: abdomen soft, non-tender, non-distended, no organomegaly Musculoskeletal: Pulses present and equal in all extremities, no peripheral edema Motor: no focal deficits noted Neurological: CN II-XII grossly intact, no focal motor or sensory deficits noted Skin: Intact with no visualized rashes Psych: Normal affect and mood ED course: 59-year-old male presents with active chest pressure sensation to the substernal area. He is well-appearing. Initial EKG does not show any signs of ischemia or infarction. Signs upon arrival are within acceptable limits. EMS provided patient with aspirin prior to arrival. He states he is ALLERGIC to nitroglycerin and gets anaphylactic reaction from it. In September 2019 patient had a cardiac catheterization that showed patent stent to the mid left anterior descending artery. Cardiac cath was reviewed. His mid LAD shows mild in-stent restenosis. Repeat EKG was performed showing no dynamic changes.Laboratory evaluation obtained. CBC unremarkable. Coag panel is negative. D-dimer is elevated 1.04. Metabolic panel is negative. Cardiac enzymes was negative. Serum alcohol is elevated. Chest x-ray is nonacute. Given elevated d-dimer CT angios the chest was obtained showing no evidence of pulmonary embolism. Patient be admitted for serial troponins and cardiology consultation. EKG interpretation: Ventricular rate 87, normal sinus rhythm,. 136, QRS 80, QTc 450. No DE prolongation, no QTC prolongation, no ST or T-wave changes noted. EKG compared to 09/10/2019 showing no changes. Overall, this EKG is unremarkable - Related Data Home Medications Medication Instructions Recorded Confirmed No Known Home Medications 11/13/19 11/13/19 Allergies Allergy/AdvReac Type Severity Reaction Status Date / Time blueberry Allergy Rash/Hives Verified 11/13/19 14:25 nitroglycerin Allergy Swelling Verified 11/13/19 14:25 Review of Systems ROS Statement: Those systems with pertinent positive or pertinent negative responses have been documented in the HPI. ROS Other: All systems not noted in ROS Statement are negative. Past Medical History Past Medical History: Coronary Artery Disease (CAD), Chest Pain / Angina, Hyperlipidemia, Myocardial Infarction ([place]), Osteoarthritis (OA) Additional Past Medical History / Comment(s): Pt denies COPD, arthritis in back and bilateral knees, benign colon polyps Last Myocardial Infarction Date:: 2004 History of Any Multi-Drug Resistant Organisms: None Reported Past Surgical History: Bowel Resection, Heart Catheterization With Stent Additional Past Surgical History / Comment(s): Cardiac stents x 3, bowel surgery for pinpoint hole in bowel, L knee arthroscopy, colonoscopy/benign polypectomies. Past Anesthesia/Blood Transfusion Reactions: No Reported Reaction Date of Last Stent Placement:: 2013 Past Psychological History: Bipolar, Depression, Schizophrenia Smoking Status: Current every day smoker Past Alcohol Use History: Heavy Past Drug Use History: Cocaine, Marijuana - Past Family History Father Family Medical History: Respiratory Disorder Additional Family Medical History / Comment(s): Father at age 64 from Black lung disease Mother Family Medical History: Myocardial Infarction ([place]) Additional Family Medical History / Comment(s): Mother of an [place] at 78yrs old. Brother(s) Family Medical History: Myocardial Infarction ([place]) Additional Family Medical History / Comment(s): Patient has 10 brothers and 2 from myocardial infarction and had history of alcoholism. Sister(s) Additional Family Medical History / Comment(s): He has 7 sisters that are alive with no major medical problems. He has one son that has and one daughter that is alive and okay. General Exam Limitations: no limitations Course Vital Signs 11/13/19 11/13/19 13:35 13:40 Pulse Rate 87 Pulse Rate [ 87 [place] ] Respiratory 20 20 Rate Blood Pressure 121/89 O2 Sat by Pulse 98 Oximetry Medical Decision Making - Lab Data Result diagrams: 11/13/19 13:48 11/13/19 13:48 Lab Results 11/13/19 11/13/19 11/13/19 Range/Units 13:48 13:48 13:48 WBC 5.9 (3.8-10.6) k/uL RBC 4.30 (4.30-5.90) m/uL Hgb 12.9 L (13.0-17.5) gm/dL Hct 40.7 (39.0-53.0) % MCV 94.5 (80.0-100.0) fL MCH 29.9 (25.0-35.0) pg MCHC 31.6 (31.0-37.0) g/dL RDW 14.2 (11.5-15.5) % Plt Count 205 (150-450) k/uL Neutrophils % (Manual) 40 % Lymphocytes % (Manual) 52 % Monocytes % (Manual) 8 % Neutrophils # (Manual) 2.36 (1.3-7.7) k/uL Lymphocytes # (Manual) 3.07 (1.0-4.8) k/uL Monocytes # (Manual) 0.47 (0-1.0) k/uL Nucleated RBCs 0 (0-0) /100 WBC Manual Slide Review Performed PT 10.0 (9.0-12.0) sec INR 1.0 (<1.2) APTT 24.3 (22.0-30.0) sec D-Dimer 1.04 H (<0.60) mg/L FEU Sodium 136 L (137-145) mmol/L Potassium 4.4 (3.5-5.1) mmol/L Chloride 101 (98-107) mmol/L Carbon Dioxide 24 (22-30) mmol/L Anion Gap 11 mmol/L BUN 11 (9-20) mg/dL Creatinine 0.71 (0.66-1.25) mg/dL Est GFR (CKD-EPI)AfAm >90 (>60 ml/min/1.73 sqM) Est GFR (CKD-EPI)NonAf >90 (>60 ml/min/1.73 sqM) Glucose 101 H (74-99) mg/dL Calcium 9.5 (8.4-10.2) mg/dL Magnesium 1.9 (1.6-2.3) mg/dL Total Bilirubin 0.8 (0.2-1.3) mg/dL AST 34 (17-59) U/L ALT 16 (4-49) U/L Alkaline Phosphatase 62 (38-126) U/L Troponin I (0.000-0.034) ng/mL NT-Pro-B Natriuret Pep pg/mL Total Protein 7.9 (6.3-8.2) g/dL Albumin 4.5 (3.5-5.0) g/dL Lipase 101 (23-300) U/L Serum Alcohol 173 mg/dL 11/13/19 11/13/19 Range/Units 13:48 13:48 WBC (3.8-10.6) k/uL RBC (4.30-5.90) m/uL Hgb (13.0-17.5) gm/dL Hct (39.0-53.0) % MCV (80.0-100.0) fL MCH (25.0-35.0) pg MCHC (31.0-37.0) g/dL RDW (11.5-15.5) % Plt Count (150-450) k/uL Neutrophils % (Manual) % Lymphocytes % (Manual) % Monocytes % (Manual) % Neutrophils # (Manual) (1.3-7.7) k/uL Lymphocytes # (Manual) (1.0-4.8) k/uL Monocytes # (Manual) (0-1.0) k/uL Nucleated RBCs (0-0) /100 WBC Manual Slide Review PT (9.0-12.0) sec INR (<1.2) APTT (22.0-30.0) sec D-Dimer (<0.60) mg/L FEU Sodium (137-145) mmol/L Potassium (3.5-5.1) mmol/L Chloride (98-107) mmol/L Carbon Dioxide (22-30) mmol/L Anion Gap mmol/L BUN (9-20) mg/dL Creatinine (0.66-1.25) mg/dL Est GFR (CKD-EPI)AfAm (>60 ml/min/1.73 sqM) Est GFR (CKD-EPI)NonAf (>60 ml/min/1.73 sqM) Glucose (74-99) mg/dL Calcium (8.4-10.2) mg/dL Magnesium (1.6-2.3) mg/dL Total Bilirubin (0.2-1.3) mg/dL AST (17-59) U/L ALT (4-49) U/L Alkaline Phosphatase (38-126) U/L Troponin I <0.012 (0.000-0.034) ng/mL NT-Pro-B Natriuret Pep 65 pg/mL Total Protein (6.3-8.2) g/dL Albumin (3.5-5.0) g/dL Lipase (23-300) U/L Serum Alcohol mg/dL Disposition Clinical Impression: Chest pain Disposition: ADMITTED IP TO THIS HOSP Condition: Fair Referrals: Nonstaff,Physician [Primary Care Provider] - 1-2 days Decision Time: 15:56
[2019-11-13 13:57] LABS: HCT 40.7 % (39.0-53.0); HGB 12.9 gm/dL (13.0-17.5); MCH 29.9 pg (25.0-35.0); MCHC 31.6 g/dL (31.0-37.0); MCV 94.5 fL (80.0-100.0); Mean Platelet Volume 7.7; Platelet Count 205 k/uL (150-450); RDW 14.2 % (11.5-15.5); WBC 5.9 k/uL (3.8-10.6)
--- NOTE | 2019-11-13 14:05 | XR ---
EXAMINATION TYPE: XR chest 2V DATE OF EXAM: 11/13/2019 COMPARISON: 09/10/2019 INDICATION: Chest pain TECHNIQUE: Frontal and lateral views of the chest are obtained. FINDINGS: The heart size is normal. The pulmonary vasculature is normal. The lungs are clear. IMPRESSION: 1. No acute pulmonary process.
[2019-11-13 14:08] LABS: ALT 16 U/L (4-49); AST 34 U/L (17-59); African American GFR (CKD) >90 (>60 ml/min/1.73 sqM); Albumin 4.5 g/dL (3.5-5.0); Alkaline Phosphatase 62 U/L (38-126); Anion Gap 11 mmol/L; Blood Urea Nitrogen 11 mg/dL (9-20); Calcium 9.5 mg/dL (8.4-10.2); Carbon Dioxide 24 mmol/L (22-30); Chloride 101 mmol/L (98-107); Glucose 101 mg/dL (74-99); Magnesium 1.9 mg/dL (1.6-2.3); Non-African American GFR(CKD) >90 (>60 ml/min/1.73 sqM); Potassium 4.4 mmol/L (3.5-5.1); Sodium 136 mmol/L (137-145); Total Bilirubin 0.8 mg/dL (0.2-1.3); Total Protein 7.9 g/dL (6.3-8.2)
[2019-11-13 14:10] LABS: Alcohol 173 mg/dL
[2019-11-13 14:13] LABS: Partial Thromboplastin Time 24.3 sec (22.0-30.0)
[2019-11-13 14:40] LABS: D-Dimer 1.04 mg/L FEU (<0.60)
[2019-11-13 15:22] LABS: Lymphocytes # (M) 3.07 k/uL (1.0-4.8); Monocytes # (M) 0.47 k/uL (0-1.0); Neutrophils # (M) 2.36 k/uL (1.3-7.7); Neutrophils % (M) 40 %; Nucleated Red Blood Cells 0 /100 WBC (0-0); Total Cells Counted 100
[2019-11-13] MEDS ORDERED: MORPHINE SULFATE 4 MG/ML SYRINGE IV STA (15:36)
--- NOTE | 2019-11-13 15:52 | CT ---
EXAMINATION TYPE: CT angio chest DATE OF EXAM: 11/13/2019 COMPARISON: 11/15/2018 HISTORY: Shortness of breath and chest pain. CT DLP: 325.2 mGycm Automated exposure control for dose reduction was used. CONTRAST: Performed with IV Contrast, patient injected with 100 mL of Isovue 370. There are 3-D post processed images. There is minimal pulmonary emphysema. The lungs are clear of consolidation. There is no evidence of a pulmonary mass. There is minimal subsegmental atelectasis at the lung bases. There is small hiatal h ernia. Heart size is normal. There is no pericardial effusion. There are no hilar masses. There is no mediastinal adenopathy. Thoracic aorta is intact. There is no aneurysm or dissection. There is normal contrast opacification of the pulmonary arteries. There are no filling defects. Upper abdominal soft tissues appear intact. There is 2 cm hypodensity in the right lobe of the liver that is probably a cyst. Thoracic spine is intact. There is no compression fracture. Sternum is intact. The ribs appear intact . IMPRESSION: No evidence of pulmonary embolism. There is improvement in the atelectasis at the lung bases compared to old exam.
[2019-11-13] MEDS ORDERED: HEPARIN SODIUM,PORCINE 5,000 UNIT/ML 1 ML VIAL IV ONE (15:56)
[2019-11-13] MEDS: HEPARIN SOD,PORK IN 0.45% NACL 25,000 UNIT in 0.45% NACL 1 250ML.BAG IV SCH (16:26)
[2019-11-13] MEDS: MORPHINE SULFATE 2 MG/ML SYRINGE IVP PRN (21:35)
[2019-11-14] MEDS: MORPHINE SULFATE 2 MG/ML SYRINGE IVP PRN ×5 (02:04→21:19)
--- NOTE | 2019-11-14 03:35 | HP ---
HISTORY AND PHYSICAL CHIEF COMPLAINT: Left-sided chest pain. HISTORY OF PRESENT ILLNESS: This 59-year-old gentleman with a past medical history of multiple medical problems including CAD, chest pain, history of hypertension, hyperlipidemia, history of DJD, history of bipolar schizophrenia, depression was complaining of left-sided chest pain which is the left anterior part of chest. The patient called the EMS. The chest pressure since yesterday without much radiation. The patient also had history of CAD, CABG. The patient was described as an elephant sitting on the chest. 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 The patient came to [facility] and the initial troponins are negative and the patient was found to have alcohol level of 173 and patient admitted for further evaluation and treatment. There is no history of fever or rigors. No history of headache, loss of consciousness or seizures. PAST MEDICAL HISTORY: History of CAD, stent, hyperlipidemia, history of myocardial infarction, DJD, history of peptic ulcer disease surgery. MEDICATIONS: Medications prior to admission, home medications are unknown at this time. ALLERGIES: Per chart BLUEBERRY and NITROGLYCERIN. FAMILY HISTORY: History of black lung disease in father. SOCIAL HISTORY: History of alcohol, cocaine, marijuana, smoking. REVIEW OF SYSTEMS: ENT: No diminished hearing or diminished vision. CARDIOVASCULAR SYSTEM: As mentioned earlier. RESPIRATORY SYSTEM: As mentioned earlier. GI: As mentioned earlier. : No dysuria. NERVOUS SYSTEM: No numbness or weakness. ALLERGY/IMMUNOLOGY: No asthma or hayfever. MUSCULOSKELETAL: As mentioned earlier. HEMATOLOGY: No history of anemia. ENDOCRINE: No history of diabetes or hypothyroidism. CONSTITUTIONAL: As mentioned earlier. DERMATOLOGY: Negative. RHEUMATOLOGY: Negative. PSYCHIATRY: As mentioned earlier. PHYSICAL EXAMINATION: The patient is alert and oriented x3. Pulse is 87, blood pressure 121/89, respiration 20, temperature normal, pulse ox 98% on room air. HEENT: Conjunctivae normal. Oral mucosa moist. NECK: No jugular venous distention. No carotid bruit. No lymph node enlargement. CARDIOVASCULAR: S1, S2 muffled. No S3, no S4. RESPIRATORY: Breath sounds diminished at the bases. No rhonchi. No crackles. ABDOMEN: Soft. Old healed scar present. Nontender. No mass palpable. No ascites. LEGS: No edema, no swelling. NERVOUS SYSTEM: Higher function as mentioned earlier. Moves all 4 limbs. No focal motor or sensory deficits. LYMPHATICS: No lymphadenopathy of the neck, axillae or groin. SKIN: No ulcer, rash or bleeding. JOINTS: No active deforming arthropathy. LABS: Labs are at this time, WBC 5.9, hemoglobin 12.9. Sodium is 136. ASSESSMENT: 1. Left-sided chest pain, rule out unstable angina. 2. History of coronary artery disease, stent. 3. Hyponatremia. 4. Acute alcohol intoxication. 5. Anemia, normocytic anemia of chronic disease. 6. History of hyperlipidemia. 7. History of myocardial infarction. 8. History of bowel resection. 9. History of peptic ulcer disease surgery. 10.History of bipolar depression, schizophrenia. 11.Possible noncompliance. 12.History of polysubstance abuse including alcohol, cocaine, marijuana, THC. RECOMMENDATIONS AND DISCUSSION: In this 59-year-old gentleman who presented with multiple complex medical issues, we will monitor the patient closely. Continue the current medications. Continue symptomatic treatment. I recommend cardiology consultation, rule out myocardial infarction. Otherwise, symptomatic treatment. See orders for further details. Prognosis guarded because of multiple complex medical issues and further recommendations to follow. MMODL / IJN: [id number] /
[2019-11-14 06:05] LABS: Cholesterol 152 mg/dL (<200); Triglycerides 59 mg/dL (<150)
[2019-11-14 06:13] LABS: LDL Cholesterol,Calculated 32 mg/dL (0-99)
[2019-11-14 06:26] LABS: HDL Cholesterol 108 mg/dL (40-60)
[2019-11-14] MEDS ORDERED: ASPIRIN 325 MG TAB PO SCH (09:00)
--- NOTE | 2019-11-14 12:00 | P.CRDCN ---
<Sarah Nielson - Last Filed: 11/14/19 11:57> History of Present Illness Consult date: 11/14/19 History of present illness: CHIEF COMPLAINT: Chest pain HISTORY OF PRESENT ILLNESS: This is a 59-year old male with a past medical history significant for coronary artery disease with previous stent placement, hyperlipidemia, nicotine dependence and alcohol use. 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 He reports he sees a PCP in [facility]. We have been asked to see the patient in consultation for chest pain. Patient examined this morning at the bedside. Patient states he began having chest pressure 2 days ago. He states he was sitting down watching TV when this happened. He describes the pain as an elephant sitting on his chest. He reports occasional shortness of breath. No radiation to jaw, back, or arms. He did have some slight nausea and tingling in both of his hands. He also reports some diaphoresis. Patient reports he is still having chest pain but it is improved since coming to the emergency room. Patient underwent cardiac cath with Dr. Moody in September 2019 revealing a patent stent to the LAD and no other significant blockages. He had an echocardiogram completed at that time revealing EF 55-60%, mild mitral regurgitation and mild tricuspid regurgitation. DIAGNOSTICS: EKG reveals sinus rhythm. Chest xray negative for acute process. Laboratory data: WBC 5.9. Hemoglobin 12.9. Platelet count 205. D-dimer 1.04. Sodium 136. Potassium 4.4. BUN 11. Creatinine 0.71. Magnesium 1.9. Troponin negative 3. BNP 65. Serum alcohol 173. Current home cardiac medications include aspirin 81 mg daily. CTA negative for PE REVIEW OF SYSTEMS: At the time of my exam: CONSTITUTIONAL: Denies fever or chills. HEENT: Denies blurred vision, vision changes, or eye pain. Denies hemoptysis CARDIOVASCULAR: Reports chest pain. Denies orthopnea, PND or palpitations RESPIRATORY: No shortness of breath. GASTROINTESTINAL: Denies abdominal pain. Denies nausea or vomiting. HEMATOLOGIC: Denies bleeding disorders. GENITOURINARY: Denies any blood in urine. SKIN: Denies pruitis. Denies rash. PHYSICAL EXAM: VITAL SIGNS: Reviewed. GENERAL: Well-developed in no acute distress. HEENT: Head is normocephalic. Pupils are equal, round. Sclerae anicteric. Mucous membranes of the mouth are moist. Neck supple. No JVD or thyromegaly LUNGS: Respirations even and unlabored. Lungs essentially clear to auscultation bilaterally. HEART: Regular rate and rhythm. S1 and S2 heard. ABDOMEN: Soft. Nondistended. Nontender. EXTREMITIES: Normal range of motion. No clubbing or cyanosis. Peripheral pulses intact. No lower extremity edema NEUROLOGIC: Awake and alert. Oriented x 3. ASSESSMENT: Unstable angina Coronary artery disease with previous stent placement to LAD Hyperlipidemia Nicotine dependence Acute alcohol intoxication PLAN: Continue daily aspirin 81mg Add statin therapy: Atorvastatin 40 mg daily Add Toprol-XL 50 mg daily Obtain additional troponin level No need to repeat echo at this time as it was performed in 09/2019 Dr. Marx discussed cardiac cath with Dr. Moody and also with the patient. The patient is unsure if he would like to proceed with cardiac cath and would like to think about it. Will make patient NPO at midnight. Continue IV heparin. We will re-assess patient in the morning. Nurse practitioner note has been reviewed by physician. Signing provider agrees with the documented findings, assessment, and plan of care. Past Medical History Past Medical History: Coronary Artery Disease (CAD), Chest Pain / Angina, Hyperlipidemia, Myocardial Infarction (NH), Osteoarthritis (OA) Additional Past Medical History / Comment(s): Pt denies COPD, arthritis in back and bilateral knees, benign colon polyps Last Myocardial Infarction Date:: 2004 History of Any Multi-Drug Resistant Organisms: None Reported Past Surgical History: Bowel Resection, Heart Catheterization With Stent Additional Past Surgical History / Comment(s): Cardiac stents x 3, bowel surgery for pinpoint hole in bowel, L knee arthroscopy, colonoscopy/benign polypectomies. Past Anesthesia/Blood Transfusion Reactions: No Reported Reaction Date of Last Stent Placement:: 2013 Smoking Status: Current every day smoker - Past Family History Father Family Medical History: Respiratory Disorder Additional Family Medical History / Comment(s): Father at age 64 from Black lung disease Mother Family Medical History: Hypertension, Myocardial Infarction (NH) Additional Family Medical History / Comment(s): Mother of an NH at 78yrs old. Brother(s) Family Medical History: Myocardial Infarction (NH) Additional Family Medical History / Comment(s): Patient has 10 brothers and 2 from myocardial infarction and had history of alcoholism. Sister(s) Additional Family Medical History / Comment(s): He has 7 sisters that are alive with no major medical problems. He has one son that has and one daughter that is alive and okay. Medications and Allergies Home Medications Medication Instructions Recorded Confirmed Type Aspirin 1 tab PO DAILY 11/13/19 11/13/19 History Allergies Allergy/AdvReac Type Severity Reaction Status Date / Time blueberry Allergy Rash/Hives Verified 11/13/19 14:25 nitroglycerin Allergy Swelling Verified 11/13/19 14:25 Physical Exam Vitals: Vital Signs Temp Pulse Pulse Resp BP BP Pulse Ox 11/14/19 08:00 98.4 F 81 16 128/74 99 11/14/19 04:00 98.4 F 76 16 116/76 98 11/14/19 00:00 98.2 F 80 16 119/78 97 11/13/19 20:00 98.3 F 85 18 106/70 97 11/13/19 18:28 98.6 F 100 18 110/82 98 11/13/19 17:40 98.2 F 11/13/19 17:33 85 20 116/81 99 11/13/19 17:29 98.1 F 90 20 110/82 99 11/13/19 16:04 92 20 116/85 100 11/13/19 15:35 80 18 120/80 98 11/13/19 15:00 87 18 113/85 100 11/13/19 14:00 81 18 111/87 98 11/13/19 13:40 98.1 F 87 20 11/13/19 13:35 87 20 121/89 98 Intake and Output 11/13/19 11/14/19 11/14/19 22:59 06:59 14:59 Intake Total 280.931 Balance 280.931 Intake: Intake, IV Titration 58.931 Amount Heparin Sod,Pork in 0.45% 58.931 NaCl 25,000 unit In 0.45 % NaCl 1 250ml.bag @ 12 UNITS/KG/HR 8.709 mls/hr IV .Q24H [facility] Rx#: [id number] Oral 222 Other: Voiding Method Toilet Toilet # Voids 2 1 Weight 72.575 kg Results 11/13/19 13:48 11/13/19 13:48 Cardiac Enzymes 11/13/19 11/13/19 11/13/19 Range/Units 13:48 13:48 18:13 AST 34 (17-59) U/L Troponin I <0.012 0.026 (0.000-0.034) ng/mL 11/13/19 11/14/19 Range/Units 22:23 09:51 AST (17-59) U/L Troponin I 0.017 <0.012 (0.000-0.034) ng/mL Coagulation 11/13/19 11/13/19 11/14/19 Range/Units 13:48 22:23 05:18 PT 10.0 (9.0-12.0) sec APTT 24.3 31.9 H 43.9 H (22.0-30.0) sec Lipids 11/14/19 Range/Units 05:18 Triglycerides 59 (<150) mg/dL Cholesterol 152 (<200) mg/dL HDL Cholesterol 108 H (40-60) mg/dL CBC 11/13/19 Range/Units 13:48 WBC 5.9 (3.8-10.6) k/uL RBC 4.30 (4.30-5.90) m/uL Hgb 12.9 L (13.0-17.5) gm/dL Hct 40.7 (39.0-53.0) % Plt Count 205 (150-450) k/uL Comprehensive Metabolic Panel 11/13/19 Range/Units 13:48 Sodium 136 L (137-145) mmol/L Potassium 4.4 (3.5-5.1) mmol/L Chloride 101 (98-107) mmol/L Carbon Dioxide 24 (22-30) mmol/L BUN 11 (9-20) mg/dL Creatinine 0.71 (0.66-1.25) mg/dL Glucose 101 H (74-99) mg/dL Calcium 9.5 (8.4-10.2) mg/dL AST 34 (17-59) U/L ALT 16 (4-49) U/L Alkaline Phosphatase 62 (38-126) U/L Total Protein 7.9 (6.3-8.2) g/dL Albumin 4.5 (3.5-5.0) g/dL Current Medications Generic Name Dose Route Start Last Admin Trade Name Freq PRN Reason Stop Dose Admin Aspirin 81 mg 11/15/19 09:00 Aspirin 81 Mg PO DAILY [facility] Atorvastatin Calcium 40 mg 11/14/19 21:00 Atorvastatin 40 Mg Tab PO HS [facility] Heparin Sodium/Sodium Chloride 250 mls @ 8.709 mls/hr 11/13/19 16:00 11/13/19 23:12 25,000 unit/ Sodium Chloride IV 15 units/kg/hr .Q24H [facility] 10.886 mls/hr Titration Protocol 12 UNITS/KG/HR Metoprolol Succinate 50 mg 11/14/19 09:45 Metoprolol Succinate (Er) 50 Mg Tab.Er.24h PO DAILY [facility] Morphine Sulfate 2 mg 11/13/19 21:04 11/14/19 11:29 Morphine Sulfate 2 Mg/Ml Syringe IVP 2 mg Q4H PRN Administration Pain/Discomfort Intake and Output 11/13/19 11/14/19 11/14/19 22:59 06:59 14:59 Intake Total 280.931 Balance 280.931 Intake: Intake, IV Titration 58.931 Amount Heparin Sod,Pork in 0.45% 58.931 NaCl 25,000 unit In 0.45 % NaCl 1 250ml.bag @ 12 UNITS/KG/HR 8.709 mls/hr IV .Q24H [facility] Rx#: [id number] Oral 222 Other: Voiding Method Toilet Toilet # Voids 2 1 Weight 72.575 kg 11/13/19 13:48 11/13/19 13:48 <Frandy Marx - Last Filed: 11/14/19 14:58> History of Present Illness History of present illness: Patient with multiple admissions in the past with chest pain. Last admission, patient had nuclear scan which showed concern of apical inferior ischemia with mildly elevated troponins at the time. He admits to some similar episode of constant chest pain "like elephant on my chest" with some associated nausea and SOB. Troponins negative. He states he is allergic to Nitro with toungue swelling. Seems to have some poor compliance with outpt followup. Reviewed cath films from 2014, 2018 and 2019. He does have a patent stent in the LAD ho wever at times with slow filling of the distal LAD. Although there is not much instent stenosis, LAD is a large caliber vessel wrapping around the apex and apical inferior ischemia would correspond to possible LAD disease. Had discussion with patient regarding options. Do not feel repeat stress test would be of any additional benefit. Offered patient possible repeat heart cath with FFR/iFR to assess LAD vs medical therapy. Patient would like to consider options and we will reassess tomorrow. Start BBlocker. Continue aspirin and heparin drip at this time. Repeat trop given continued chest pain. Physical Exam Vitals: Vital Signs Temp Pulse Pulse Resp BP BP Pulse Ox 11/14/19 08:00 98.4 F 81 16 128/74 99 11/14/19 04:00 98.4 F 76 16 116/76 98 11/14/19 00:00 98.2 F 80 16 119/78 97 11/13/19 20:00 98.3 F 85 18 106/70 97 11/13/19 18:28 98.6 F 100 18 110/82 98 11/13/19 17:40 98.2 F 11/13/19 17:33 85 20 116/81 99 11/13/19 17:29 98.1 F 90 20 110/82 99 11/13/19 16:04 92 20 116/85 100 11/13/19 15:35 80 18 120/80 98 11/13/19 15:00 87 18 113/85 100 Intake and Output 11/13/19 11/14/19 11/14/19 22:59 06:59 14:59 Intake Total 280.931 Balance 280.931 Intake: Intake, IV Titration 58.931 Amount Heparin Sod,Pork in 0.45% 58.931 NaCl 25,000 unit In 0.45 % NaCl 1 250ml.bag @ 12 UNITS/KG/HR 8.709 mls/hr IV .Q24H [facility] Rx#: [id number] Oral 222 Other: Voiding Method Toilet Toilet # Voids 2 1 Weight 72.575 kg Results 11/13/19 13:48 11/13/19 13:48 Cardiac Enzymes 11/13/19 11/13/19 11/14/19 Range/Units 18:13 22:23 09:51 Troponin I 0.026 0.017 <0.012 (0.000-0.034) ng/mL Coagulation 11/13/19 11/14/19 Range/Units 22:23 05:18 APTT 31.9 H 43.9 H (22.0-30.0) sec Lipids 11/14/19 Range/Units 05:18 Triglycerides 59 (<150) mg/dL Cholesterol 152 (<200) mg/dL HDL Cholesterol 108 H (40-60) mg/dL Current Medications Generic Name Dose Route Start Last Admin Trade Name Freq PRN Reason Stop Dose Admin Aspirin 81 mg 11/15/19 09:00 Aspirin 81 Mg PO DAILY [facility] Atorvastatin Calcium 40 mg 11/14/19 21:00 Atorvastatin 40 Mg Tab PO HS [facility] Heparin Sodium/Sodium Chloride 250 mls @ 8.709 mls/hr 11/13/19 16:00 11/13/19 23:12 25,000 unit/ Sodium Chloride IV 15 units/kg/hr .Q24H [facility] 10.886 mls/hr Titration Protocol 12 UNITS/KG/HR Metoprolol Succinate 50 mg 11/14/19 09:45 11/14/19 14:09 Metoprolol Succinate (Er) 50 Mg Tab.Er.24h PO 50 mg DAILY [facility] Administration Morphine Sulfate 2 mg 11/13/19 21:04 11/14/19 11:29 Morphine Sulfate 2 Mg/Ml Syringe IVP 2 mg Q4H PRN Administration Pain/Discomfort Intake and Output 11/13/19 11/14/19 11/14/19 22:59 06:59 14:59 Intake Total 280.931 Balance 280.931 Intake: Intake, IV Titration 58.931 Amount Heparin Sod,Pork in 0.45% 58.931 NaCl 25,000 unit In 0.45 % NaCl 1 250ml.bag @ 12 UNITS/KG/HR 8.709 mls/hr IV .Q24H [facility] Rx#: [id number] Oral 222 Other: Voiding Method Toilet Toilet # Voids 2 1 Weight 72.575 kg 11/13/19 13:48 11/13/19 13:48
[2019-11-14] MEDS: METOPROLOL SUCCINATE (ER) 50 MG TAB.ER.24H PO SCH (14:09)
[2019-11-14] MEDS: HEPARIN SOD,PORK IN 0.45% NACL 25,000 UNIT in 0.45% NACL 1 250ML.BAG IV SCH (18:13)
[2019-11-14] MEDS ORDERED: ATORVASTATIN 40 MG TAB PO SCH (21:00)
--- NOTE | 2019-11-14 23:00 | PN ---
PROGRESS NOTE DATE OF SERVICE: 11/14/2019 This 59-year-old gentleman who was admitted with left-sided chest pain has been ruled out for having myocardial infarction. Cardiology is following the patient closely and planning possible cardiac catheterization. The patient is still thinking about it. No chest pain. No palpitations. No fever. PHYSICAL EXAMINATION: Alert and oriented x3. Pulse is 115, blood pressure 153/89, respiration 18, temperature 98.4, pulse ox 94% on room air. HEENT: Conjunctivae normal. NECK: No jugular venous distention. CARDIOVASCULAR SYSTEM: S1, S2 muffled. RESPIRATORY SYSTEM: Breath sounds diminished at the bases. No rhonchi. No crackles. ABDOMEN: Soft, non-tender. LEGS: No edema. No swelling. NERVOUS SYSTEM: No focal deficit. LABS/IMAGING: Hemoglobin 12.9. D-dimer is 1.04. The chest CTA shows no evidence of any pulmonary embolism; improvement in atelectasis. ASSESSMENT: 1. Left-sided chest pain; possible unstable angina. 2. History of coronary artery disease, stent. 3. Hyponatremia. 4. Acute alcohol intoxication. 5. Anemia, normocytic anemia of chronic disease. 6. History of hyperlipidemia. 7. History of myocardial infarction. 8. History of bowel resection. 9. Elevated D-dimer with no evidence of pulmonary embolism. 10.History of peptic ulcer disease and surgery. 11.History of bipolar depression, schizophrenia. 12.Possible noncompliance. 13.History of polysubstance abuse, including alcohol, cocaine, marijuana, tetrahydrocannabinol, some remotely. RECOMMENDATIONS AND DISCUSSION: I recommend to continue current medications, continue with the monitoring, symptomatic treatment. Continue with antiplatelet agents, beta blockers and closely follow with Cardiology. Possible cardiac catheterization. Guarded prognosis. Further recommendations to follow. MMODL / IJN: [id number] /
[2019-11-15 00:14] VITALS: RESP 16
[2019-11-15] MEDS: MORPHINE SULFATE 2 MG/ML SYRINGE IVP PRN ×2 (01:08→08:44)
[2019-11-15] MEDS: METOPROLOL SUCCINATE (ER) 50 MG TAB.ER.24H PO SCH (08:44)
[2019-11-15] MEDS ORDERED: ASPIRIN 81 MG PO SCH (09:00)
[2019-11-15 09:42] VITALS: TEMP 98.4
--- NOTE | 2019-11-15 12:00 | ECHOF ---
Referral Reason:LV function MEASUREMENTS -------- HEIGHT: 177.8 cm WEIGHT: 70.8 kg BP: IVSd: 1.1 cm (0.6 - 1.1) LVIDd: 4.6 cm (3.9 - 5.3) LVPWd: 1.4 cm (0.6 - 1.1) IVSs: 1.8 cm LVIDs: 1.8 cm LVPWs: 2.0 cm FINDINGS -------- Limited Study for LV function The left ventricular size is normal. There is mild concentric left ventricular hypertrophy. Overa ll left ventricular systolic function is low-normal with, an EF between 50 - 55 %. There is no pericardial effusion. CONCLUSIONS -------- 1. The left ventricular size is normal. 2. There is mild concentric left ventricular hypertrophy. 3. Overall left ventricular systolic function is low-normal with, an EF between 50 - 55 %. 4. There is no pericardial effusion. HYGIENE ASSISTANT: [facility]
--- NOTE | 2019-11-15 12:16 | P.PN ---
Subjective Progress Note Date: 11/15/19 CHIEF COMPLAINT: Chest pain HISTORY OF PRESENT ILLNESS: Patient examined this morning at the bedside. He reports his chest pain has improved. Denies shortness of breath. Vital signs stable. PHYSICAL EXAM: VITAL SIGNS: Reviewed. GENERAL: Well-developed in no acute distress. HEENT: Head is normocephalic. Pupils are equal, round. Sclerae anicteric. Mucous membranes of the mouth are moist. Neck supple. No JVD or thyromegaly LUNGS: Respirations even and unlabored. Lungs essentially clear to auscultation bilaterally. HEART: Regular rate and rhythm. S1 and S2 heard. ABDOMEN: Soft. Nondistended. Nontender. EXTREMITIES: Normal range of motion. No clubbing or cyanosis. Peripheral pulses intact. No lower extremity edema NEUROLOGIC: Awake and alert. Oriented x 3. ASSESSMENT: Unstable angina Coronary artery disease with previous stent placement to LAD Hyperlipidemia Nicotine dependence Acute alcohol intoxication PLAN: Continue aspirin, Lipitor, and metoprolol. Patient unable to tolerate nitrates secondary to tongue swelling. Discontinue IV heparin Repeat limited echo reveals ejection fraction between 50 and 55%. Discussed possibility of cardiac catheterization with patient again at the bedside. He has decided against cardiac cath at this time. Will continue with medical management. He is stable for discharge from a cardiac standpoint. He is to follow up with Dr. Moody outpatient. Nurse practitioner note has been reviewed by physician. Signing provider agrees with the documented findings, assessment, and plan of care. Objective - Vital Signs Vital signs: Vital Signs Temp 98.4 F 11/15/19 08:00 Pulse 67 11/15/19 08:00 Resp 16 11/15/19 04:00 BP 103/74 11/15/19 08:00 Pulse Ox 98 11/15/19 08:00 Intake & Output 11/14/19 11/15/19 11/15/19 18:59 06:59 18:59 Intake Total 635.069 Output Total 300 Balance 635.069 -300 Weight 71.2 kg Intake: Intake, IV Titration 191.069 Amount Heparin Sod,Pork in 0.45% 191.069 NaCl 25,000 unit In 0.45 % NaCl 1 250ml.bag @ 12 UNITS/KG/HR 8.709 mls/hr IV .Q24H [facility] Rx#: [id number] Oral 444 Output: Urine 300 Other: Voiding Method Toilet # Voids 3 2 - Labs CBC & Chem 7: 11/13/19 13:48 11/13/19 13:48 Labs: Abnormal Lab Results - Last 24 Hours (Table) 11/15/19 Range/Units 06:32 APTT 42.8 H (22.0-30.0) sec
[2019-11-15 12:25] VITALS: BP 125/79; PULSE 72
--- NOTE | 2019-11-15 12:44 | P.DS ---
Providers Date of admission: 11/13/19 15:57 Attending physician: Radha Torres Consults: 11/13/19 15:57 Consult Physician Urgent Consulting Provider: Deanne Starr Consult Reason/Comments: chest pain Do you want consulting provider notified?: Yes Primary care physician: Physician Nonstaff Hospital Course: Patient was admitted for chest pain and declined any cardiac catheterization. Cardiology eval and the patient is recommending echocardiogram, he didn't show any wall motion regarding this patient chest pain apparently is noncardiac in nature. Patient will be discharged today although patient was started on a statin and a beta paulina by cardiology. PHYSICAL EXAMINATION: GENERAL: The patient is alert and oriented x3, not in any acute distress. Well developed, well nourished. HEENT: Pupils are round and equally reacting to light. EOMI. No scleral icterus. No conjunctival pallor. Normocephalic, atraumatic. No pharyngeal erythema. No thyromegaly. CARDIOVASCULAR: S1 and S2 present. No murmurs, rubs, or gallops. PULMONARY: Chest is clear to auscultation, no wheezing or crackles. ABDOMEN: Soft, nontender, nondistended, normoactive bowel sounds. No palpable organomegaly. MUSCULOSKELETAL: No joint swelling or deformity. EXTREMITIES: No cyanosis, clubbing, or pedal edema. NEUROLOGICAL: Gross neurological examination did not reveal any focal deficits. SKIN: No rashes. The rest of the medical problems and hospitalization course please refer to the progress note from as today from Dr. Houser Patient Condition at Discharge: Fair Plan - Discharge Summary Discharge Rx Participant: Yes New Discharge Prescriptions: New Atorvastatin [Lipitor] 40 mg PO HS #30 tab Metoprolol Succinate (ER) [Toprol XL] 50 mg PO DAILY #30 tab.er.24h No Action Aspirin 1 tab PO DAILY Discharge Medication List Aspirin 1 tab PO DAILY 11/13/19 [History] Atorvastatin [Lipitor] 40 mg PO HS #30 tab 11/15/19 [Rx] Metoprolol Succinate (ER) [Toprol XL] 50 mg PO DAILY #30 tab.er.24h 11/15/19 [Rx] Follow up Appointment(s)/Referral(s): Molly Deras MD [REFERRING] - 3 Days Primo Moody MD [STAFF PHYSICIAN] - 1 Week Patient Instructions/Handouts: Angina (DC) Discharge Disposition: HOME SELF-CARE
== END 2019-11-15 12:28 | disposition home or self-care (01) ==
LOC: EC 13:32 → 3SCARD 15:57
PROVIDERS: ADMIT Internal Medicine; ATTEND Internal Medicine
DX: I25.110 Atherosclerotic heart disease of native coronary artery with unstable angina pectoris (principal); E78.5 Hyperlipidemia, unspecified; F10.129 Alcohol abuse with intoxication, unspecified; Y90.6 Blood alcohol level of 120-199 mg/100 ml; R79.1 Abnormal coagulation profile; E87.1 Hypo-osmolality and hyponatremia; D63.8 Anemia in other chronic diseases classified elsewhere; T82.855D Stenosis of coronary artery stent, subsequent encounter; I25.10 Atherosclerotic heart disease of native coronary artery without angina pectoris; I25.2 Old myocardial infarction; M47.9 Spondylosis, unspecified; M17.0 Bilateral primary osteoarthritis of knee; F31.9 Bipolar disorder, unspecified; F20.9 Schizophrenia, unspecified; I10 Essential (primary) hypertension; I08.1 Rheumatic disorders of both mitral and tricuspid valves; F17.200 Nicotine dependence, unspecified, uncomplicated; Z95.1 Presence of aortocoronary bypass graft; Z88.8 Allergy status to other drugs, medicaments and biological substances; Z95.5 Presence of coronary angioplasty implant and graft; Z91.018 Allergy to other foods; Z86.010 Personal history of colon polyps; Z90.49 Acquired absence of other specified parts of digestive tract; Z98.890 Other specified postprocedural states; Z87.11 Personal history of peptic ulcer disease; Z82.5 Family history of asthma and other chronic lower respiratory diseases; Z82.49 Family history of ischemic heart disease and other diseases of the circulatory system; Z81.1 Family history of alcohol abuse and dependence
CPT/HCPCS: 96376 ×4; 96361; 96366 ×2; 96365; 96375; 99285; 36415; 93005; 93308; 85379; 83880; 80061; 80053; 83690; 83735; 84484 ×2; 85025; 85610; 85730 ×3; 71046; 71275; G0378 ×3; G0480; J2270 ×4; J1644 ×3; Q9967; 80320

== ENCOUNTER 2019-12-03 05:00 | Inpatient (IN) | payer MEDICARE, OTHER ==
--- NOTE | 2019-12-03 05:04 | ED ---
Chest Pain HPI - General Stated Complaint: Chest pain Time Seen by Provider: 12/03/19 05:02 Source: RN notes reviewed, old records reviewed Mode of arrival: EMS Limitations: no limitations - History of Present Illness Initial Comments: this is a 5-year-old male DF for evaluation patient has no history of chest pain. Patient is persistent chest pain here in the ER chest pain is left-sided rating to left arm. Does have prior history of stent placement. Patient states his does not feel well never really does get chest pain currently, no fevers cough or congestion MD Complaint: chest pain -: hour(s) Onset: during rest, during exertion Pain Location: substernal, left chest Pain Radiation: LUE Severity: moderate Quality: tightness, heaviness Consistency: intermittent Improves With: nothing Worsens With: nothing Anginal Symptoms: dyspnea Other Symptoms: palpitations Treatments Prior to Arrival: none - Related Data Home Medications Medication Instructions Recorded Confirmed Hydrocodone/Acetaminophen [[place] 1 tab PO TID PRN 12/03/19 12/03/19 10-325] Previous Rx's Medication Instructions Recorded Atorvastatin [Lipitor] 40 mg PO HS #30 tab 11/15/19 Aspirin 1 tab PO DAILY #30 tab 12/06/19 Folic Acid 1 mg PO DAILY@1200 #14 tab 12/06/19 Multivitamins, Thera [Multivitamin 1 each PO DAILY@1200 #14 tab 12/06/19 (formulary)] Pantoprazole [Protonix] 40 mg PO AC-BRKFST #21 tablet. 12/06/19 Thiamine [Vitamin B-1] 100 mg PO DAILY@1200 #14 tab 12/06/19 Allergies Allergy/AdvReac Type Severity Reaction Status Date / Time blueberry Allergy Rash/Hives Verified 12/03/19 08:11 nitroglycerin Allergy Swelling Verified 12/03/19 08:11 Review of Systems ROS Statement: Those systems with pertinent positive or pertinent negative responses have been documented in the HPI. ROS Other: All systems not noted in ROS Statement are negative. EKG Findings - EKG Comments: EKG Findings:: EKG is sinus rhythm 78, MI 172 QRS 74 QTC 396 Past Medical History Past Medical History: Coronary Artery Disease (CAD), Chest Pain / Angina, Hyperlipidemia, Myocardial Infarction ([place]), Osteoarthritis (OA) Additional Past Medical History / Comment(s): Pt denies COPD, arthritis in back and bilateral knees, benign colon polyps Last Myocardial Infarction Date:: 2004 History of Any Multi-Drug Resistant Organisms: None Reported Past Surgical History: Bowel Resection, Heart Catheterization With Stent Additional Past Surgical History / Comment(s): Cardiac stents x 3, bowel surgery for pinpoint hole in bowel, L knee arthroscopy, colonoscopy/benign polypectomies. Past Anesthesia/Blood Transfusion Reactions: No Reported Reaction Date of Last Stent Placement:: 2013 Smoking Status: Current every day smoker - Past Family History Father Family Medical History: Respiratory Disorder Additional Family Medical History / Comment(s): Father at age 64 from Black lung disease Mother Family Medical History: Hypertension, Myocardial Infarction ([place]) Additional Family Medical History / Comment(s): Mother of an [place] at 78yrs old. Brother(s) Family Medical History: Myocardial Infarction ([place]) Additional Family Medical History / Comment(s): Patient has 10 brothers and 2 from myocardial infarction and had history of alcoholism. Sister(s) Additional Family Medical History / Comment(s): He has 7 sisters that are alive with no major medical problems. He has one son that has and one daughter that is alive and okay. General Exam General appearance: alert, in no apparent distress Head exam: Present: atraumatic, normocephalic, normal inspection Eye exam: Present: normal appearance, PERRL, EOMI. Absent: scleral icterus, conjunctival injection, periorbital swelling ENT exam: Present: normal exam, mucous membranes moist Neck exam: Present: normal inspection. Absent: tenderness, meningismus, lymphad enopathy Respiratory exam: Present: normal lung sounds bilaterally. Absent: respiratory distress, wheezes, rales, rhonchi, stridor Cardiovascular Exam: Present: regular rate, normal rhythm, normal heart sounds. Absent: systolic murmur, diastolic murmur, rubs, gallop, clicks GI/Abdominal exam: Present: soft, normal bowel sounds. Absent: distended, tenderness, guarding, rebound, rigid Extremities exam: Present: normal inspection, full ROM, normal capillary refill. Absent: tenderness, pedal edema, joint swelling, calf tenderness Back exam: Present: normal inspection Neurological exam: Present: alert, oriented X3, CN II-XII intact Psychiatric exam: Present: normal affect, normal mood Skin exam: Present: warm, dry, intact, normal color. Absent: rash Course Vital Signs 12/03/19 12/03/19 05:01 06:08 Temperature 98.3 F 98 F Pulse Rate 64 70 Respiratory 20 18 Rate Blood Pressure 113/81 121/70 O2 Sat by Pulse 99 97 Oximetry - Reevaluation(s) Reevaluation #1: medical record is reviewed Patient informed results and questions answered Patient has persistent chest pain Chest Pain MDM - MDM 59 male to the ER for evaluation chest pain. Patient presented for chest pain observationpatient has history of stent placement has chest pain left-sided radiating with arm, worse with exertion Critical Care Time Critical Care Time: Yes Total Critical Care Time: 31 Disposition Clinical Impression: Unstable angina pectoris, CAD (coronary artery disease), Chest pain at rest Disposition: ADMITTED IP TO THIS HOSP Condition: Undetermined Is patient prescribed a controlled substance at d/c from ED?: No
[2019-12-03] MEDS ORDERED: ASPIRIN 81 MG PO STA (05:09)
[2019-12-03] MEDS ORDERED: HEPARIN SODIUM,PORCINE 5,000 UNIT/ML 1 ML VIAL IV PRN (05:09)
[2019-12-03] MEDS ORDERED: HEPARIN SODIUM,PORCINE 5,000 UNIT/ML 1 ML VIAL IV ONE (05:09)
[2019-12-03] MEDS ORDERED: diphenhydrAMINE 50 MG/ML 1 ML VIAL IVP STA (05:19)
[2019-12-03 05:20] LABS: HGB 12.4 gm/dL (13.0-17.5); MCH 31.2 pg (25.0-35.0); MCHC 31.9 g/dL (31.0-37.0); Mean Platelet Volume 7.6; Platelet Count 211 k/uL (150-450); RBC 3.99 m/uL (4.30-5.90); RDW 14.1 % (11.5-15.5); WBC 4.4 k/uL (3.8-10.6)
[2019-12-03] MEDS: SODIUM CHLORIDE 0.9% 1,000 ML IV SCH ×2 (05:21→19:47)
[2019-12-03 05:24] LABS: Partial Thromboplastin Time 22.9 sec (22.0-30.0); Prothrombin Time 10.2 sec (9.0-12.0)
[2019-12-03] MEDS: HEPARIN SOD,PORK IN 0.45% NACL 25,000 UNIT in 0.45% NACL 1 250ML.BAG IV SCH (05:24)
[2019-12-03 05:27] LABS: ALT 18 U/L (4-49); AST 31 U/L (17-59); African American GFR (CKD) >90 (>60 ml/min/1.73 sqM); Albumin 4.5 g/dL (3.5-5.0); Alkaline Phosphatase 46 U/L (38-126); Anion Gap 7 mmol/L; Blood Urea Nitrogen 6 mg/dL (9-20); Calcium 9.6 mg/dL (8.4-10.2); Carbon Dioxide 26 mmol/L (22-30); Chloride 110 mmol/L (98-107); Glucose 106 mg/dL (74-99); Lipase 93 U/L (23-300); Non-African American GFR(CKD) >90 (>60 ml/min/1.73 sqM); Potassium 4.4 mmol/L (3.5-5.1); Sodium 143 mmol/L (137-145); Total Bilirubin 0.6 mg/dL (0.2-1.3)
[2019-12-03 05:30] LABS: Alcohol 174 mg/dL
[2019-12-03 05:38] LABS: Eosinophils # (M) 0.04 k/uL (0-0.7); Lymphocytes # (M) 1.67 k/uL (1.0-4.8); Monocytes # (M) 0.44 k/uL (0-1.0); Neutrophils # (M) 2.24 k/uL (1.3-7.7); Neutrophils % (M) 51 %; Nucleated Red Blood Cells 0 /100 WBC (0-0); Total Cells Counted 100
[2019-12-03] MEDS: MORPHINE SULFATE 4 MG/ML SYRINGE IV PRN ×5 (05:39→20:11)
--- NOTE | 2019-12-03 05:52 | XR ---
EXAMINATION TYPE: XR chest 2V DATE OF EXAM: 12/03/2019 COMPARISON: Chest x-ray and CT chest November 13, 2019 HISTORY: Chest pain. TECHNIQUE: Frontal and lateral views of the chest are obtained. FINDINGS: Slightly elevated left hemidiaphragm redemonstrated. There is no new suspicious focal air s pace opacity, pleural effusion, or pneumothorax seen bilaterally. The cardiac silhouette size remain s within normal limits. The osseous structures are intact. IMPRESSION: No acute cardiopulmonary process currently.
[2019-12-03] MEDS ORDERED: ALPRAZolam 0.5 MG TAB PO PRN (12:22)
[2019-12-03] MEDS ORDERED: ALPRAZolam 0.25 MG TAB PO PRN (12:22)
[2019-12-03] MEDS: atenoloL 25 MG TAB PO SCH ×2 (12:34→19:48)
[2019-12-03] MEDS ORDERED: LORazepam 2 MG/ML INJ IV PRN ×3 (12:52)
--- NOTE | 2019-12-03 13:25 | P.CRDCN ---
History of Present Illness Consult date: 12/03/19 History of present illness: CHIEF COMPLAINT: Chest pain HISTORY OF PRESENT ILLNESS: This is a 59 -year old male with a past medical history significant for coronary artery disease with previous stent placement, hyperlipidemia, nicotine dependence, and alcohol use. Patient follows in the office with Dr. Moody. We have been asked to see the patient in consultation for chest pain. Patient underwent cardiac catheterization in September 2019 revealing a patent stent to the LAD and no other significant blockages. Echocardiogram completed at that time revealed ejection fraction 55-60%, mild mitral regurgitation, and mild tricuspid regurgitation. Patient was recently hospitalized in November 2019 for chest pain. Repeat cardiac catheterization was offered to patient at that time however he refused and preferred to try medical management. He was discharged home in stable condition. Metoprolol was added to patient's medication regimen at that time. Patient states he has been taking the metoprolol but has not been tolerating it well. Patient presents back to the hospital with a 2 day history of chest pain. Patient states the pain radiated down his right arm. He reports associated shortness of breath. DIAGNOSTICS: EKG reveals sinus rhythm Chest xray no acute process Laboratory data: WBC 4.4. Hemoglobin 12.4. Platelet count 211. Sodium 143. Potassium 4.4. BUN 6. Creatinine 0.74. Magnesium 2.0. Troponin negative 3. Serum alcohol 174. Current home cardiac medications include metoprolol 50 g daily, Lipitor 40 mg daily, and aspirin 81 mg daily REVIEW OF SYSTEMS: At the time of my exam: CONSTITUTIONAL: Denies fever or chills. HEENT: Denies blurred vision, vision changes, or eye pain. Denies hemoptysis CARDIOVASCULAR: Reports chest discomfort. Denies orthopnea, PND or palpitations RESPIRATORY: No shortness of breath. GASTROINTESTINAL: Denies abdominal pain. Denies nausea or vomiting. HEMATOLOGIC: Denies bleeding disorders. GENITOURINARY: Denies any blood in urine. SKIN: Denies pruitis. Denies rash. PHYSICAL EXAM: VITAL SIGNS: Reviewed. GENERAL: Well-developed in no acute distress. HEENT: Head is normocephalic. Pupils are equal, round. Sclerae anicteric. Mucous membranes of the mouth are moist. Neck supple. No JVD or thyromegaly LUNGS: Respirations even and unlabored. Lungs essentially clear to auscultation bilaterally. HEART: Regular rate and rhythm. S1 and S2 heard. ABDOMEN: Soft. Nondistended. Nontender. EXTREMITIES: Normal range of motion. No clubbing or cyanosis. Peripheral pulses intact. No lower extremity edema NEUROLOGIC: Awake and alert. Oriented x 3. ASSESSMENT: Chest pain, troponins negative 3 Recent hospitalization for chest pain, November 2019 Coronary artery disease with previous stent placement to LAD Acute alcohol intoxication Hyperlipidemia Nicotine dependence PLAN: No need to repeat echocardiogram as this was recently performed in September 2019. Continue IV heparin drip Discontinue metoprolol. Begin atenolol 25 mg twice a day Decrease aspirin to 81 mg daily Patient will be scheduled for cardiac catheterization on 12/05/[address] Moody Nurse practitioner note has been reviewed by physician. Signing provider agrees with the documented findings, assessment, and plan of care. Past Medical History Past Medical History: Coronary Artery Disease (CAD), Chest Pain / Angina, Hyperlipidemia, Myocardial Infarction ([place]), Osteoarthritis ([place]) Additional Past Medical History / Comment(s): Pt denies COPD, arthritis in back and bilateral knees, benign colon polyps Last Myocardial Infarction Date:: 2004 History of Any Multi-Drug Resistant Organisms: None Reported Past Surgical History: Bowel Resection, Heart Catheterization With Stent Additional Past Surgical History / Comment(s): Cardiac stents x 3, bowel surgery for pinpoint hole in bowel, L knee arthroscopy, colonoscopy/benign polypectomies. Past Anesthesia/Blood Transfusion Reactions: No Reported Reaction Date of Last Stent Placement:: 2013 Past Psychological History: Bipolar, Depression, PTSD, Schizophrenia Additional Psychological History / Comment(s): He states he goes to [facility]. Smoking Status: Current every day smoker Past Alcohol Use History: Occasional Additional Past Alcohol Use History / Comment(s): Pt states he started smoking in 1994 a pack will last him a month. Past Drug Use History: None Reported Additional Drug Use History / Comment(s): Pt states that he used MJ occasionally. Pt states that he has a history of cocaine, - Past Family History Father Family Medical History: Respiratory Disorder Additional Family Medical History / Comment(s): Father at age 64 from Black lung disease Mother Family Medical History: Hypertension, Myocardial Infarction ([place]) Additional Family Medical History / Comment(s): Mother of an [place] at 78yrs old. Brother(s) Family Medical History: Myocardial Infarction ([place]) Additional Family Medical History / Comment(s): Patient has 10 brothers and 2 from myocardial infarction and had history of alcoholism. Sister(s) Additional Family Medical History / Comment(s): He has 7 sisters that are alive with no major medical problems. He has one son that has and one daughter that is alive and okay. Medications and Allergies Home Medications Medication Instructions Recorded Confirmed Type Aspirin 1 tab PO DAILY 11/13/19 12/03/19 History Atorvastatin [Lipitor] 40 mg PO HS #30 tab 11/15/19 12/03/19 Rx Metoprolol Succinate (ER) [Toprol 50 mg PO DAILY #30 tab.er.24h 11/15/19 12/03/19 Rx XL] Hydrocodone/Acetaminophen [[place] 1 tab PO TID PRN 12/03/19 12/03/19 History 10-325] Allergies Allergy/AdvReac Type Severity Reaction Status Date / Time blueberry Allergy Rash/Hives Verified 12/03/19 08:11 nitroglycerin Allergy Swelling Verified 12/03/19 08:11 Physical Exam Vitals: Vital Signs Temp Pulse Pulse Resp BP BP Pulse Ox 12/03/19 08:52 98.2 F 74 16 113/74 99 12/03/19 06:34 97.9 F 69 112/79 100 12/03/19 06:08 98 F 70 18 121/70 97 12/03/19 05:01 98.3 F 64 20 113/81 99 Intake and Output 12/02/19 12/03/19 12/03/19 22:59 06:59 14:59 Output Total 250 Balance -250 Output: Urine 250 Other: # Voids 1 Weight 74.843 kg Results 12/03/19 05:05 12/03/19 05:05 Cardiac Enzymes 12/03/19 12/03/19 12/03/19 Range/Units 05:05 05:05 08:21 AST 31 (17-59) U/L Troponin I <0.012 <0.012 (0.000-0.034) ng/mL Coagulation 12/03/19 Range/Units 05:05 PT 10.2 (9.0-12.0) sec APTT 22.9 (22.0-30.0) sec CBC 12/03/19 Range/Units 05:05 WBC 4.4 (3.8-10.6) k/uL RBC 3.99 L (4.30-5.90) m/uL Hgb 12.4 L (13.0-17.5) gm/dL Hct 39.0 (39.0-53.0) % Plt Count 211 (150-450) k/uL Comprehensive Metabolic Panel 12/03/19 Range/Units 05:05 Sodium 143 (137-145) mmol/L Potassium 4.4 (3.5-5.1) mmol/L Chloride 110 H (98-107) mmol/L Carbon Dioxide 26 (22-30) mmol/L BUN 6 L (9-20) mg/dL Creatinine 0.74 (0.66-1.25) mg/dL Glucose 106 H (74-99) mg/dL Calcium 9.6 (8.4-10.2) mg/dL AST 31 (17-59) U/L ALT 18 (4-49) U/L Alkaline Phosphatase 46 (38-126) U/L Total Protein 8.0 (6.3-8.2) g/dL Albumin 4.5 (3.5-5.0) g/dL Current Medications Generic Name Dose Route Start Last Admin Trade Name Freq PRN Reason Stop Dose Admin Aspirin 325 mg 12/04/19 09:00 Aspirin 325 Mg Tab PO DAILY [facility] Heparin Sodium (Porcine) 0 unit 12/03/19 05:09 Heparin Sodium,Porcine 5,000 Unit/Ml 1 Ml Vial IV Q6HR PRN Low PTT Protocol Sodium Chloride 1,000 mls @ 20 mls/hr 12/03/19 05:15 12/03/19 05:21 Saline 0.9% IV 20 mls/hr .Q24H M[facility]RIS Administration Heparin Sodium/Sodium Chloride 250 mls @ 8.981 mls/hr 12/03/19 05:15 12/03/19 05:24 25,000 unit/ Sodium Chloride IV 12 units/kg/hr .Q24H MORRIS 8.981 mls/hr Administration Protocol 12 UNITS/KG/HR Morphine Sulfate 4 mg 12/03/19 05:09 12/03/19 09:40 Morphine Sulfate 4 Mg/Ml Syringe IV 4 mg Q4HR PRN Administration Chest Pain Intake and Output 12/02/19 12/03/19 12/03/19 22:59 06:59 14:59 Output Total 250 Balance -250 Output: Urine 250 Other: # Voids 1 Weight 74.843 kg 12/03/19 05:05 12/03/19 05:05
[2019-12-03] MEDS ORDERED: HYDROcodone/APAP 10-325MG 1 EACH TAB PO PRN (17:14)
[2019-12-03] MEDS ORDERED: TEMAZEPAM 15 MG CAP PO PRN (17:14)
--- NOTE | 2019-12-03 18:12 | HP ---
HISTORY AND PHYSICAL DATE OF SERVICE: 12/03/2019 CHIEF COMPLAINT: Chest pain. HISTORY OF PRESENT ILLNESS: This 59-year-old gentleman with a past medical history of multiple medical problems including CAD, history of GERD, hyperlipidemia, history of DJD, history of COPD, history of bipolar depression, PTSD, schizophrenia being followed by Dr. Royal in the outpatient apparently was admitted with chest pain. The patient is following with Dr. Moody in the outpatient setting. The patient is complaining of chest pain. The patient recently was admitted to the hospital and was discharged. The patient has a previous LAD stent placement. Presented with chest pain. The patient admitted for further evaluation and treatment. There is no history of fever, rigors or chills. No history of headache, loss of consciousness, seizures. The pain is mostly seated on the left side which is crushing in character without much radiation without any associated sweating or palpitation. Initial troponin and EKG showed occasional PVCs are noted. PAST MEDICAL HISTORY: History of CAD/stent, history of DJD, history of COPD, history of bowel surgery, history of bipolar depression, PTSD, schizophrenia. MEDICATIONS: Prior home medications are: Toprol-XL, hydrocodone, Lipitor, aspirin. ALLERGIES: BLUEBERRY AND NITROGLYCERIN. FAMILY HISTORY: History of respiratory disorder, black lung disease. SOCIAL HISTORY: History of smoking. Occasional alcohol intake. REVIEW OF SYSTEMS: ENT: No diminished vision. No diminished hearing. CARDIOVASCULAR as mentioned earlier. RESPIRATORY: As mentioned earlier. GI no nausea or vomiting. no dysuria or hematuria. NERVOUS SYSTEM: No numbness or weakness. ALLERGY/IMMUNOLOGY: No asthma, hayfever. MUSCULOSKELETAL: As mentioned earlier HEMATOLOGY/ONCOLOGY: No history of anemia. ENDOCRINE: No history of diabetes or hypothyroidism. CONSTITUTIONAL: As mentioned earlier. DERMATOLOGY negative. RHEUMATOLOGY negative. PSYCHIATRIC as mentioned earlier. PHYSICAL EXAMINATION: Alert and oriented times three. Pulse 63, blood pressure 107/70, respirations 16, temperature 98 degrees. Pulse ox 100 percent on room air. HEENT: Conjunctivae normal. Oral mucosa moist. NECK is no jugular venous distention. No carotid bruit. No lymph node enlargement. CARDIOVASCULAR: S1, S2. No S3, no S4. RESPIRATORY: Breath sounds diminished in the bases. No rhonchi. No crackles. ABDOMEN: Soft, nontender. No mass palpable. LEGS: No edema. No swelling. NERVOUS SYSTEM: Higher functions as mentioned earlier. Moves all 4 limbs. No focal motor or sensory deficits. LYMPHATICS: No lymph nodes palpable in the neck, axillae or groin. SKIN: No ulcer, no rash and no bleeding. JOINTS: No active deforming arthropathy. LABS: WBC 4.2, hemoglobin 12.4. APTT 45.4. ASSESSMENT: 1. Chest pain, possible unstable angina. 2. Acute alcohol intoxication with alcohol level 174. 3. Anemia, normocytic anemia of chronic disease. 4. History of coronary artery disease. 5. Hyperlipidemia. 6. History of coronary artery disease/stent. 7. History of myocardial infarction. 8. History of bowel resection. 9. History of bipolar depression, PTSD, schizophrenia. 10.History of nicotine dependence. RECOMMENDATIONS AND DISCUSSION: This 59-year-old gentleman who presented with multiple complex medical issues, we will monitor the patient closely. Continue the current medications, management and symptomatic treatment. Continue with IV heparin. Cardiology has seen the patient. Myocardial infarction will be ruled out. Cardiology has recommended atenolol and cardiac catheterization Thursday by Dr. Moody. Prognosis guarded. Further recommendations to follow. See orders for details. Symptomatic treatment of pain also will be offered. Also recommend the patient follow up with primary physician closely. Patient also follows with [facility] in the outpatient setting. MMODL / IJN: [id number] /
[2019-12-03] MEDS: ATORVASTATIN 40 MG TAB PO SCH (19:47)
[2019-12-04] MEDS: MORPHINE SULFATE 4 MG/ML SYRINGE IV PRN ×6 (00:12→21:10)
[2019-12-04] MEDS: HEPARIN SOD,PORK IN 0.45% NACL 25,000 UNIT in 0.45% NACL 1 250ML.BAG IV SCH ×2 (06:33→09:24)
[2019-12-04] MEDS: PANTOPRAZOLE 40 MG TABLET PO SCH (06:35)
[2019-12-04 07:52] LABS: African American GFR (CKD) >90 (>60 ml/min/1.73 sqM); Anion Gap 0 mmol/L; Blood Urea Nitrogen 10 mg/dL (9-20); Calcium 8.9 mg/dL (8.4-10.2); Carbon Dioxide 31 mmol/L (22-30); Chloride 105 mmol/L (98-107); Cholesterol 134 mg/dL (<200); Glucose 91 mg/dL (74-99); HDL Cholesterol 92 mg/dL (40-60); LDL Cholesterol,Calculated 33 mg/dL (0-99); Non-African American GFR(CKD) >90 (>60 ml/min/1.73 sqM); Potassium 3.9 mmol/L (3.5-5.1); Sodium 136 mmol/L (137-145); Triglycerides 45 mg/dL (<150)
[2019-12-04 08:03] LABS: Basophils % (A) 1 %; Eosinophils # (A) 0.1 k/uL (0-0.7); Eosinophils % (A) 1 %; HCT 36.2 % (39.0-53.0); HGB 11.3 gm/dL (13.0-17.5); Lymphocytes # (A) 2.2 k/uL (1.0-4.8); Lymphocytes % (A) 55 %; MCH 31.3 pg (25.0-35.0); MCHC 31.1 g/dL (31.0-37.0); MCV 100.5 fL (80.0-100.0); Macrocytosis Slight; Mean Platelet Volume 8.5; Monocytes # (A) 0.3 k/uL (0-1.0); Monocytes % (A) 6 %; Neutrophils # (A) 1.3 k/uL (1.3-7.7); Neutrophils % (A) 32 %; Platelet Count 200 k/uL (150-450); RDW 14.6 % (11.5-15.5)
[2019-12-04] MEDS ORDERED: ASPIRIN 325 MG TAB PO SCH (09:00)
[2019-12-04] MEDS ORDERED: ASPIRIN 81 MG PO SCH (09:00)
[2019-12-04] MEDS: NICOTINE 14MG/24HR PATCH TRANSDERM SCH (09:05)
[2019-12-04] MEDS: ASPIRIN 81 MG PO SCH (09:05)
[2019-12-04] MEDS: atenoloL 25 MG TAB PO SCH ×2 (09:05→20:15)
--- NOTE | 2019-12-04 10:50 | P.PN ---
Subjective Progress Note Date: 12/04/19 CHIEF COMPLAINT: Chest pain HISTORY OF PRESENT ILLNESS: Patient examined this morning the bedside. He continues to have chest discomfort but states that it is improved from yesterday. He denies shortness of breath. He remains on IV heparin drip. Vital signs stable. PHYSICAL EXAM: VITAL SIGNS: Reviewed. GENERAL: Well-developed in no acute distress. HEENT: Head is normocephalic. Pupils are equal, round. Sclerae anicteric. Mucous membranes of the mouth are moist. Neck supple. No JVD or thyromegaly LUNGS: Respirations even and unlabored. Lungs essentially clear to auscultation bilaterally. HEART: Regular rate and rhythm. S1 and S2 heard. ABDOMEN: Soft. Nondistended. Nontender. EXTREMITIES: Normal range of motion. No clubbing or cyanosis. Peripheral pulses intact. No lower extremity edema NEUROLOGIC: Awake and alert. Oriented x 3. ASSESSMENT: Chest pain, troponins negative 3 Recent hospitalization for chest pain, November 2019 Coronary artery disease with previous stent placement to LAD Acute alcohol intoxication Hyperlipidemia Nicotine dependence PLAN: Continue IV heparin drip Continue current cardiac medications Patient will be scheduled for cardiac catheterization on 12/05/[address] Moody Nurse practitioner note has been reviewed by physician. Signing provider agrees with the documented findings, assessment, and plan of care. Objective - Vital Signs Vital signs: Vital Signs Temp 98.0 F 12/04/19 08:13 Pulse 61 12/04/19 08:13 Resp 16 12/04/19 08:13 BP 121/78 12/04/19 08:13 Pulse Ox 99 12/04/19 08:13 Intake & Output 12/03/19 12/04/19 12/04/19 18:59 06:59 18:59 Intake Total 200 425.872 227.592 Output Total 250 800 Balance -50 -374.128 227.592 Intake: Intake, IV Titration 225.872 27.592 Amount Heparin Sod,Pork in 0.45% 225.872 27.592 NaCl 25,000 unit In 0.45 % NaCl 1 250ml.bag @ 12 UNITS/KG/HR 8.981 mls/hr IV .Q24H MORRIS Rx#: [id number] Oral 200 200 200 Output: Urine 250 800 Other: Voiding Method Toilet Toilet Toilet # Voids 2 4 - Labs CBC & Chem 7: 12/04/19 07:09 12/04/19 07:09 Labs: Abnormal Lab Results - Last 24 Hours (Table) 12/03/19 12/04/19 12/04/19 Range/Units 10:56 07:09 07:09 RBC (4.30-5.90) m/uL Hgb (13.0-17.5) gm/dL Hct (39.0-53.0) % MCV (80.0-100.0) fL APTT 45.4 H 39.4 H (22.0-30.0) sec Sodium 136 L (137-145) mmol/L Carbon Dioxide 31 H (22-30) mmol/L HDL Cholesterol 92 H (40-60) mg/dL 12/04/19 Range/Units 07:09 RBC 3.60 L (4.30-5.90) m/uL Hgb 11.3 L (13.0-17.5) gm/dL Hct 36.2 L (39.0-53.0) % MCV 100.5 H (80.0-100.0) fL APTT (22.0-30.0) sec Sodium (137-145) mmol/L Carbon Dioxide (22-30) mmol/L HDL Cholesterol (40-60) mg/dL
[2019-12-04] MEDS: MULTIVITAMINS, THERA 1 EACH TAB PO SCH (12:47)
[2019-12-04] MEDS: FOLIC ACID 1 MG TAB PO SCH (12:47)
[2019-12-04] MEDS: THIAMINE 100 MG TAB PO SCH (12:47)
--- NOTE | 2019-12-04 15:37 | PN ---
PROGRESS NOTE DATE OF SERVICE: 12/04/2019 This 59-year-old gentleman admitted with chest pain is being closely monitored. Cardiology recommending cardiac catheterization tomorrow. No chest pain. No palpitations. No fever. PHYSICAL EXAMINATION: Alert and oriented times three. Pulse 54. Blood pressure 115/76, respirations 16, temperature 97.9, pulse ox 98% on room air. HEENT: Conjunctivae normal. NECK: No jugular venous distention. CARDIOVASCULAR SYSTEM: S1, S2 muffled. RESPIRATORY SYSTEM: Breath sounds diminished at the bases. No rhonchi. No crackles. ABDOMEN: Soft, nontender. LEGS are no edema. No swelling. NERVOUS SYSTEM: No focal deficits. LABS: WBC 4, hemoglobin 11.3, sodium 132, potassium 3.9. Alcohol is 174. ASSESSMENT: 1. Chest pain, possible unstable angina. 2. Acute alcohol intoxication with alcohol level 174. 3. Anemia, normocytic anemia of chronic disease. 4. History of coronary artery disease. 5. Hyperlipidemia. 6. History of coronary artery disease/stent. 7. History of myocardial infarction. 8. History of bowel resection. 9. History of bipolar depression, PTSD, schizophrenia. 10.History nicotine dependence. RECOMMENDATIONS AND DISCUSSION: Recommend to continue current medications, management and symptomatic treatment. Continue to monitor. Otherwise at this time, cardiac catheterization. Closely follow with Cardiology. Guarded prognosis. Repeat labs in the morning. Guarded prognosis. Further recommendations to follow. SYBIL / OLIVIA: [id number] /
[2019-12-04] MEDS ORDERED: SODIUM CHLORIDE 0.9% 1,000 ML in EMPTY BAG 1 BAG IV ONE (18:00)
[2019-12-04] MEDS: ATORVASTATIN 40 MG TAB PO SCH (20:14)
[2019-12-05] MEDS: MORPHINE SULFATE 4 MG/ML SYRINGE IV PRN ×4 (01:08→20:33)
[2019-12-05] MEDS: SODIUM CHLORIDE 0.9% 1,000 ML IV SCH (05:19)
[2019-12-05] MEDS: PANTOPRAZOLE 40 MG TABLET PO SCH (06:30)
[2019-12-05 06:46] LABS: Basophils % (A) 1 %; Eosinophils # (A) 0.1 k/uL (0-0.7); Eosinophils % (A) 1 %; HCT 36.3 % (39.0-53.0); HGB 11.5 gm/dL (13.0-17.5); Lymphocytes # (A) 2.6 k/uL (1.0-4.8); Lymphocytes % (A) 59 %; MCH 31.4 pg (25.0-35.0); MCHC 31.6 g/dL (31.0-37.0); MCV 99.6 fL (80.0-100.0); Mean Platelet Volume 8.9; Monocytes # (A) 0.3 k/uL (0-1.0); Monocytes % (A) 7 %; Neutrophils # (A) 1.2 k/uL (1.3-7.7); Neutrophils % (A) 28 %; Platelet Count 179 k/uL (150-450); RBC 3.65 m/uL (4.30-5.90); RDW 13.9 % (11.5-15.5); WBC 4.4 k/uL (3.8-10.6)
[2019-12-05 06:56] LABS: African American GFR (CKD) >90 (>60 ml/min/1.73 sqM); Anion Gap 1 mmol/L; Blood Urea Nitrogen 8 mg/dL (9-20); Carbon Dioxide 31 mmol/L (22-30); Chloride 104 mmol/L (98-107); Glucose 90 mg/dL (74-99); Non-African American GFR(CKD) >90 (>60 ml/min/1.73 sqM); Potassium 4.1 mmol/L (3.5-5.1); Sodium 136 mmol/L (137-145)
[2019-12-05 06:56] LABS: Glucose,Whole Blood 74 mg/dL (75-99)
[2019-12-05] MEDS ORDERED: ASPIRIN 325 MG TAB PO ONE (07:00)
[2019-12-05] MEDS ORDERED: ATORVASTATIN 80 MG TAB PO ONE (07:00)
[2019-12-05] MEDS: ASPIRIN 81 MG PO SCH (08:00)
[2019-12-05] MEDS: NICOTINE 14MG/24HR PATCH TRANSDERM SCH (08:00)
[2019-12-05] MEDS: atenoloL 25 MG TAB PO SCH ×2 (11:15→20:27)
--- NOTE | 2019-12-05 13:11 | P.PN ---
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 Objective - Vital Signs Vital signs: Vital Signs Temp 97.7 F 12/05/19 07:55 Pulse 54 L 12/05/19 07:55 Resp 16 12/05/19 07:55 BP 125/85 12/05/19 07:55 Pulse Ox 99 12/05/19 07:55 Intake & Output 12/04/19 12/05/19 12/05/19 18:59 06:59 18:59 Intake Total 1007.592 Output Total 800 Balance 1007.592 -800 Intake: Intake, IV Titration 87.592 Amount Heparin Sod,Pork in 0.45% 27.592 NaCl 25,000 unit In 0.45 % NaCl 1 250ml.bag @ 12 UNITS/KG/HR 8.981 mls/hr IV .Q24H [facility] Rx#: [id number] Sodium Chloride 0.9% 1, 60 000 ml @ 20 mls/hr IV . Q24H [facility] Rx#:[id number] Oral 920 Output: Urine 800 Other: Voiding Method Toilet Toilet Toilet # Voids 3 2 - Exam CONSTITUTIONAL: No fever, no malaise, no fatigue. HEENT: No recent visual problems or hearing problems. Denied any sore throat. CARDIOVASCULAR: No orthopnea, PND, no palpitations, no syncope. PULMONARY: No shortness of breath, no cough, no hemoptysis. GASTROINTESTINAL: No diarrhea, no nausea, no vomiting, no abdominal pain. Normoactive bowel sounds. NEUROLOGICAL: No headaches, no weakness, no numbness. HEMATOLOGICAL: Denies any bleeding or petechiae. GENITOURINARY: Denies any burning micturition, frequency, or urgency. MUSCULOSKELETAL/RHEUMATOLOGICAL: Denies any joint pain, swelling, or any muscle pain. ENDOCRINE: Denies any polyuria or polydipsia. - Labs CBC & Chem 7: 12/05/19 06:19 12/05/19 06:19 Labs: Abnormal Lab Results - Last 24 Hours (Table) 12/04/19 12/05/19 12/05/19 Range/Units 14:33 06:19 06:19 RBC 3.65 L (4.30-5.90) m/uL Hgb 11.5 L (13.0-17.5) gm/dL Hct 36.3 L (39.0-53.0) % Neutrophils # 1.2 L (1.3-7.7) k/uL APTT 49.5 H (22.0-30.0) sec Sodium 136 L (137-145) mmol/L Carbon Dioxide 31 H (22-30) mmol/L BUN 8 L (9-20) mg/dL POC Glucose (mg/dL) (75-99) mg/dL 12/05/19 12/05/19 Range/Units 06:19 06:53 RBC (4.30-5.90) m/uL Hgb (13.0-17.5) gm/dL Hct (39.0-53.0) % Neutrophils # (1.3-7.7) k/uL APTT 48.6 H (22.0-30.0) sec Sodium (137-145) mmol/L Carbon Dioxide (22-30) mmol/L BUN (9-20) mg/dL POC Glucose (mg/dL) 74 L (75-99) mg/dL Assessment and Plan Assessment: Chest pain, concerning for unstable angina. Alcohol intoxication on on the presentation. At-risk of alcohol withdrawal Hyperlipidemia History of coronary artery disease History of bowel resection History of depression, PTSD and schizophrenia Plan: This is a pleasant 59 years old male who presents with UA. Continue with heparin drip, continue with aspirin. Cardiology consult and follow the recommendation. They recommended for cardiac cath. Labs and medication were reviewed.. Continue same treatment. Continue with symptomatic treatment. Resume home medication. Monitor lytes and vitals. DVT and GI prophylaxis. Further recommendationsas per clinical course of the patient DVT prophylaxis: heparin GI Prophylaxis: Pepcid Prognosis is guarded
[2019-12-05] MEDS: THIAMINE 100 MG TAB PO SCH (13:52)
[2019-12-05] MEDS: FOLIC ACID 1 MG TAB PO SCH (13:52)
[2019-12-05] MEDS: MULTIVITAMINS, THERA 1 EACH TAB PO SCH (13:52)
[2019-12-05] MEDS: FAMOTIDINE 20 MG/2 ML VIAL IV SCH (13:54)
[2019-12-05] MEDS ORDERED: LIDOCAINE 1% INJ 10MG/ML (20 ML MDV) ONE (16:02)
[2019-12-05] MEDS ORDERED: IV FLUID CONTINUATION 1,000 ML IV ONE (16:20)
[2019-12-05] MEDS ORDERED: VERAPAMIL 2.5 MG/ML 2 ML AMP ONE (16:22)
[2019-12-05] MEDS ORDERED: MIDAZOLAM 2 MG/2 ML VIAL IVP ONE (16:57)
[2019-12-05] MEDS ORDERED: LIDOCAINE 1% INJ 10MG/ML (20 ML MDV) SQ ONE (16:57)
[2019-12-05] MEDS: VERAPAMIL SYRINGE (5 MG/10 ML) INTRAARTER ONE ×2 (16:58→17:14)
[2019-12-05] MEDS ORDERED: HEPARIN SODIUM 1,000 UN/ML (10ML VL) ONE (16:58)
[2019-12-05] MEDS ORDERED: HEPARIN SODIUM 1,000 UN/ML (10ML VL) IV ONE (17:00)
[2019-12-05] MEDS ORDERED: RX INFO: IV CONTRAST WAS GIVEN 1 EACH MISC MISCELLANE PRN (17:11)
[2019-12-05] MEDS ORDERED: IOPAMIDOL-370 125ML BTL INJ ONE (17:14)
[2019-12-05] MEDS ORDERED: SODIUM CHLORIDE 0.9% 1,000 ML IV SCH (17:15)
--- NOTE | 2019-12-05 17:30 | CC ---
CARDIAC CATHETERIZATION REPORT DATE OF SERVICE: 12/03/2019 PERFORMING PHYSICIAN: Primo Moody MD. PROCEDURE PERFORMED: 1. Selective right and left coronary angiogram. 2. Left heart catheterization. INDICATION: This is a 59-year-old gentleman with coronary artery disease and prior stenting of the LAD who presented to the hospital again with chest discomfort. This is his second admission within the last few weeks. Because of that, a heart catheterization was advised. APPROACH: Right radial artery. COMPLICATION: None. LEVEL OF SEDATION: Moderate with sedation length of 13 minutes. PROCEDURE DESCRIPTION: After obtaining an informed consent, the patient was brought to the cardiac geophysical laboratory director. The right radial artery was cannulated using micropuncture technique, the micropuncture wire passed easily, then I placed a 6-Occitan sheath at the right radial artery. I gave the patient 2 mg of verapamil IA and 10,000 units of heparin IV. Selective right and left coronary angiogram performed using JR4 and JL3.5 catheters. Left heart catheterization was performed using 5-Occitan pigtail catheter. The procedure was completed without any complication. SELECTIVE CORONARY ANGIOGRAM: 1. The right coronary artery is a large caliber vessel, it is a dominant vessel. The RCA is angiographically normal. It bifurcates into PDA and PLV branches and both appeared to be angiographically normal. 2. The left main is angiographically normal, it bifurcates into LCX and LAD. 3. The LCX is a large caliber vessel, it is a nondominant vessel. The left circumflex is angiographically normal. It gives rise proximally into OM1 which appeared to be angiographically normal. In the midportion, it gives rise into OM2 which appeared to be also angiographically normal before the circumflex continues as a small caliber vessel in the AV groove. 4. The ramus intermedius is a large caliber vessel, seems to be angiographically normal. 5. The LAD is a large caliber vessel. The LAD is stented in the mid to distal portion and the stent is patent. The stent has mild in-stent restenosis. The LAD just proximal to the stented segment gives rise into a large diagonal branch which seems to be angiographically normal. 6. HEMODYNAMICS: The LVEDP was 4 mmHg without significant gradient across the aortic valve. CONCLUSION: 1. Mild in-stent restenosis involving the LAD. 2. Low left ventricular end-diastolic pressure. POSTPROCEDURE MANAGEMENT: Medical treatment and follow up with the patient. MMELGINL / IJN: [id number] /
[2019-12-05] MEDS: ATORVASTATIN 40 MG TAB PO SCH (20:27)
[2019-12-06] MEDS: MORPHINE SULFATE 4 MG/ML SYRINGE IV PRN (01:44)
[2019-12-06] MEDS: FAMOTIDINE 20 MG/2 ML VIAL IV SCH (01:44)
[2019-12-06 06:18] LABS: African American GFR (CKD) >90 (>60 ml/min/1.73 sqM); Anion Gap 2 mmol/L; Blood Urea Nitrogen 7 mg/dL (9-20); Calcium 9.3 mg/dL (8.4-10.2); Carbon Dioxide 28 mmol/L (22-30); Chloride 106 mmol/L (98-107); Glucose 92 mg/dL (74-99); Non-African American GFR(CKD) >90 (>60 ml/min/1.73 sqM); Potassium 4.4 mmol/L (3.5-5.1); Sodium 136 mmol/L (137-145)
[2019-12-06] MEDS: PANTOPRAZOLE 40 MG TABLET PO SCH (06:26)
[2019-12-06 08:09] VITALS: BP 126/85; PULSE 55; RESP 14; TEMP 98
[2019-12-06] MEDS: ASPIRIN 81 MG PO SCH (08:30)
--- NOTE | 2019-12-06 09:55 | P.PN ---
Subjective Progress Note Date: 12/06/19 CHIEF COMPLAINT: Chest pain HISTORY OF PRESENT ILLNESS: Patient is status post cardiac cath with Dr. Moody yesterday revealing mild in-stent restenosis involving the LAD. Medical management was recommended. Patient examined this morning at the bedside. He currently denies chest pain or pressure. Denies shortness of breath. Vital signs are stable. He remains bradycardic. Beta blockers have been held secondary to bradycardia. PHYSICAL EXAM: VITAL SIGNS: Reviewed. GENERAL: Well-developed in no acute distress. HEENT: Head is normocephalic. Pupils are equal, round. Sclerae anicteric. Mucous membranes of the mouth are moist. Neck supple. No JVD or thyromegaly LUNGS: Respirations even and unlabored. Lungs essentially clear to auscultation bilaterally. HEART: Regular rate and rhythm. S1 and S2 heard. ABDOMEN: Soft. Nondistended. Nontender. EXTREMITIES: Normal range of motion. No clubbing or cyanosis. Peripheral pulses intact. No lower extremity edema. Right radial cath site with pulse present. NEUROLOGIC: Awake and alert. Oriented x 3. ASSESSMENT: Chest pain, troponins negative 3 Recent hospitalization for chest pain, November 2019 Coronary artery disease with previous stent placement to LAD Acute alcohol intoxication Hyperlipidemia Nicotine dependence PLAN: Discontinue beta paulina secondary to bradycardia Patient may be discharged home today from a cardiac perspective He is to follow up outpatient with Dr. Moody Nurse practitioner note has been reviewed by physician. Signing provider agrees with the documented findings, assessment, and plan of care. Objective - Vital Signs Vital signs: Vital Signs Temp 98.0 F 12/06/19 08:05 Pulse 55 L 12/06/19 08:05 Resp 14 12/06/19 08:05 BP 126/85 12/06/19 08:05 Pulse Ox 100 12/06/19 08:05 Intake & Output 12/05/19 12/06/19 12/06/19 18:59 06:59 18:59 Intake Total 65 Balance 65 Intake: IV 65 Other: Voiding Method Toilet Toilet Toilet # Voids 1 1 # Bowel Movements 1 - Labs CBC & Chem 7: 12/05/19 06:19 12/06/19 05:38 Labs: Abnormal Lab Results - Last 24 Hours (Table) 12/06/19 Range/Units 05:38 Sodium 136 L (137-145) mmol/L BUN 7 L (9-20) mg/dL
--- NOTE | 2019-12-06 22:02 | P.DS ---
Providers Date of admission: 12/03/19 05:10 Attending physician: Angie Houser Consults: 12/03/19 05:09 Consult Physician Urgent Consulting Provider: Deanne Starr Consult Reason/Comments: cp Do you want consulting provider notified?: Yes Primary care physician: Stated None Hospital Course: Chest pain, status post cardiac cath showing mild disease of the coronary arteries. D-dimer negative. Patient admitted for discharge by extermination supervisor Alcohol intoxication on on the presentation. no alcohol withdrawal on the day of discharge Hyperlipidemia History of coronary artery disease History of bowel resection History of depression, PTSD and schizophrenia Hospital course: This is a pleasant 5 years old male with multiple medical problems was admitted for chest pain concerning for unstable angina, patient was admitted with cardiology evaluation. He underwent cardiac cath showing mild in stent restenosis involving LAD, please refer to the full report for more details. Patient was cleared by cardiology team for discharge, with a recommendation to stop beta paulina because of bradycardia Pulmonary causes were ruled out. D-dimer was checked that was 0.46 Most likely patient chest pain is musculoskeletal. Patient needs follow-up as an outpatient. Patient discharged on Protonix to gastric prophylaxis Problems and management plan were discussed with the patient and he verbalized understanding and acceptance Patient was found stable and can be discharged home however he needs follow-up as an outpatient. Patient was instructed to follow up with PCP within one week and patient agrees. Patient was instructed to follow up with Dr. Moody extermination supervisor in 1 week, patient wants to make his own appointments Gen: patient is a AAOx3, no distress CVS: S1-S2, RRR, no murmur Lungs: B/L CTA, no wheezing Abdomen: soft, no distention, no tenderness, positive bowel sounds Extremity: no leg edema or induration Time spent more than 35 minutes Health Concerns: See Activity Restriction Instructions Plan - Discharge Summary New Discharge Prescriptions: New Folic Acid 1 mg PO DAILY@1200 #14 tab Multivitamins, Thera [Multivitamin (formulary)] 1 each PO DAILY@1200 #14 tab Pantoprazole [Protonix] 40 mg PO AC-BRKFST #21 tablet. Thiamine [Vitamin B-1] 100 mg PO DAILY@1200 #14 tab Continue Atorvastatin [Lipitor] 40 mg PO HS #30 tab Hydrocodone/Acetaminophen [[place] 10-325] 1 tab PO TID PRN PRN Reason: Pain Aspirin 1 tab PO DAILY #30 tab Discontinued Metoprolol Succinate (ER) [Toprol XL] 50 mg PO DAILY #30 tab.er.24h Discharge Medication List Atorvastatin [Lipitor] 40 mg PO HS #30 tab 11/15/19 [Rx] Hydrocodone/Acetaminophen [[place] 10-325] 1 tab PO TID PRN 12/03/19 [History] Aspirin 1 tab PO DAILY #30 tab 12/06/19 [Rx] Folic Acid 1 mg PO DAILY@1200 #14 tab 12/06/19 [Rx] Multivitamins, Thera [Multivitamin (formulary)] 1 each PO DAILY@1200 #14 tab 12/06/19 [Rx] Pantoprazole [Protonix] 40 mg PO AC-TYL[place]FS[place] #21 tablet. 12/06/19 [Rx] Thiamine [Vitamin B-1] 100 mg PO DAILY@1200 #14 tab 12/06/19 [Rx] Follow up Appointment(s)/Referral(s): Primo Moody MD [STAFF PHYSICIAN] - 12/12/19 4:45 pm (Follow up with Dr. Moody for a Site check as scheduled for you) None,Stated [Primary Care Provider] - 1-2 days Patient Instructions/Handouts: *Surgery [facility] - After Heart Catheterization - Dairy Store Manager Instructions, After Radial Heart Catheterization (GEN) Activity/Diet/Wound Care/Special Instructions: heart healthy diet activity is limited till you see clear your doctor Discharge Disposition: HOME SELF-CARE
== END 2019-12-06 11:07 | disposition home or self-care (01) | DRG 287 ==
LOC: EC 05:00 → OBSVTOIN 05:10 → 3NCARDOBS 05:10
PROVIDERS: ADMIT Hospitalist; ATTEND Hospitalist
PROC: 4A023N7 Measurement of Cardiac Sampling and Pressure, Left Heart, Percutaneous Approach (ICD-10-PCS; principal; 2019-12-03)
PROC: B2111ZZ Fluoroscopy of Multiple Coronary Arteries using Low Osmolar Contrast (ICD-10-PCS; principal; 2019-12-03)
DX: I25.10 Atherosclerotic heart disease of native coronary artery without angina pectoris (principal); F31.30 Bipolar disorder, current episode depressed, mild or moderate severity, unspecified; D63.8 Anemia in other chronic diseases classified elsewhere; J44.9 Chronic obstructive pulmonary disease, unspecified; F10.129 Alcohol abuse with intoxication, unspecified; F20.9 Schizophrenia, unspecified; E78.00 Pure hypercholesterolemia, unspecified; I08.1 Rheumatic disorders of both mitral and tricuspid valves; E78.5 Hyperlipidemia, unspecified; I25.2 Old myocardial infarction; I49.3 Ventricular premature depolarization; K21.9 Gastro-esophageal reflux disease without esophagitis; F43.10 Post-traumatic stress disorder, unspecified; M17.0 Bilateral primary osteoarthritis of knee; M47.9 Spondylosis, unspecified; F17.210 Nicotine dependence, cigarettes, uncomplicated; Z79.82 Long term (current) use of aspirin; Z79.899 Other long term (current) drug therapy; Z90.49 Acquired absence of other specified parts of digestive tract; Z86.59 Personal history of other mental and behavioral disorders; Z86.010 Personal history of colon polyps; Z87.19 Personal history of other diseases of the digestive system; Z95.5 Presence of coronary angioplasty implant and graft; Z98.890 Other specified postprocedural states; Z88.8 Allergy status to other drugs, medicaments and biological substances; Z91.018 Allergy to other foods; Z82.49 Family history of ischemic heart disease and other diseases of the circulatory system; Z81.1 Family history of alcohol abuse and dependence; Z83.6 Family history of other diseases of the respiratory system
CPT/HCPCS: 36415; 71046; 80048; 80053; 80061; 80320; 83690; 83735; 83880; 84484; 85025; 85379; 85610; 85730; 93005; 93458; 96365; 96375; 96376; 99285

== ENCOUNTER 2020-02-12 21:30 | Emergency (ER) | payer MEDICARE, OTHER ==
--- NOTE | 2020-02-12 21:57 | ED ---
Chest Pain HPI - General Source: patient, EMS Mode of arrival: EMS Limitations: no limitations <Joe Curran - Last Filed: 02/12/20 22:56> <Mauri Green - Last Filed: 02/13/20 01:52> - General Stated Complaint: Chest Pain Time Seen by Provider: 02/12/20 21:32 - History of Present Illness Initial Comments: Is a 59-year-old male with a history of CAD who presents emergency department for chest pain shortness of breath. He states it started just prior to arrival. He states he was visiting his ex- and states that he's been very anxious because of some family issues that are going on. Patient stated that the chest pain was left-sided and did not radiate. He states that he also had some associated shortness of breath. He was given an aspirin in route by EMS. No nitro because patient is ALLERGIC. Patient states that he does have 4 stents in his heart. Does not recall his last cardiology evaluation. Denies any lower [place] pain or swelling. No history of PE or DVT. No other complaints. The patient does admit to drinking this evening. (Joe Curran) - Related Data Home Medications Medication Instructions Recorded Confirmed Hydrocodone/Acetaminophen [[place] 1 tab PO TID PRN 12/03/19 12/03/19 10-325] Previous Rx's Medication Instructions Recorded Atorvastatin [Lipitor] 40 mg PO HS #30 tab 11/15/19 Aspirin 1 tab PO DAILY #30 tab 12/06/19 Folic Acid 1 mg PO DAILY@1200 #14 tab 12/06/19 Multivitamins, Thera [Multivitamin 1 each PO DAILY@1200 #14 tab 12/06/19 (formulary)] Pantoprazole [Protonix] 40 mg PO AC-BRKFST #21 tablet. 12/06/19 Thiamine [Vitamin B-1] 100 mg PO DAILY@1200 #14 tab 12/06/19 Allergies Allergy/AdvReac Type Severity Reaction Status Date / Time blueberry Allergy Rash/Hives Verified 02/12/20 21:45 nitroglycerin Allergy Swelling Verified 02/12/20 21:45 Review of Systems ROS Other: All systems not noted in ROS Statement are negative. <Joe Curran - Last Filed: 02/12/20 22:56> ROS Other: All systems not noted in ROS Statement are negative. <Mauri Green - Last Filed: 02/13/20 01:52> ROS Statement: Those systems with pertinent positive or pertinent negative responses have been documented in the HPI. EKG Findings - EKG Comments: EKG Findings:: EKG showing normal sinus rhythm with rate 74. There is no abnormal ST segment changes or T-wave inversions. QTC is 483. Other intervals normal. No ectopy. <Joe Curran - Last Filed: 02/12/20 22:56> Past Medical History Past Medical History: Coronary Artery Disease (CAD), Chest Pain / Angina, Hyperlipidemia, Myocardial Infarction ([place]), Osteoarthritis (OA) Additional Past Medical History / Comment(s): Pt denies COPD, arthritis in back and bilateral knees, benign colon polyps Last Myocardial Infarction Date:: 2004 History of Any Multi-Drug Resistant Organisms: None Reported Past Surgical History: Bowel Resection, Heart Catheterization With Stent Additional Past Surgical History / Comment(s): Cardiac stents x 3, bowel surgery for pinpoint hole in bowel, L knee arthroscopy, colonoscopy/benign polypectomies. Past Anesthesia/Blood Transfusion Reactions: No Reported Reaction Date of Last Stent Placement:: 2013 Past Psychological History: Bipolar, Depression, PTSD, Schizophrenia Smoking Status: Current every day smoker Past Alcohol Use History: Daily Past Drug Use History: Marijuana - Past Family History Father Family Medical History: Respiratory Disorder Additional Family Medical History / Comment(s): Father at age 64 from Black lung disease Mother Family Medical History: Hypertension, Myocardial Infarction ([place]) Additional Family Medical History / Comment(s): Mother of an NE at 78yrs old. Brother(s) Family Medical History: Myocardial Infarction ([place]) Additional Family Medical History / Comment(s): Patient has 10 brothers and 2 from myocardial infarction and had history of alcoholism. Sister(s) Additional Family Medical History / Comment(s): He has 7 sisters that are alive with no major medical problems. He has one son that has and one daughter that is alive and okay. <Joe Curran - Last Filed: 02/12/20 22:56> General Exam Limitations: no limitations <Joe Curran - Last Filed: 02/12/20 22:56> - General Exam Comments Initial Comments: Constitutional: Awake alert Appears comfortable Head: Normocephalic atraumatic Eyes: no conjunctival injection No scleral icterus EOMI Neck: No JVD Supple Heart: Regular rate rhythm normal S1-S2 no murmurs Lungs: Clear to auscultation bilaterally No wheezing No rales Abdomen: Soft nondistended nontender Extremities: Non edematous DP pulses intact Radial pulses intact Neuro: A&Ox3 No focal neurologic deficits, the patient is slurring his words and appears intoxicated Psych: Appropriate mood and affect (Joe Curran) Course <Joe Curran - Last Filed: 02/12/20 22:56> Vital Signs 02/12/20 02/12/20 02/12/20 21:35 22:06 22:08 Temperature 97.4 F L Pulse Rate 75 75 Pulse Rate [ 75 Cloth Spreader Screen Printing ] Respiratory 18 18 18 Rate Blood Pressure 133/90 119/83 O2 Sat by Pulse 99 100 Oximetry 02/12/20 02/12/20 02/12/20 22:43 23:00 23:41 Temperature 97.6 F 97.0 F L Pulse Rate 66 72 78 Pulse Rate [ Cloth Spreader [employer]ing ] Respiratory 18 16 16 Rate Blood Pressure 132/94 112/85 O2 Sat by Pulse 96 99 Oximetry 02/13/20 02/13/20 00:00 01:00 Temperature Pulse Rate 77 71 Pulse Rate [ Cloth Spreader [employer]ing ] Respiratory 20 22 Rate Blood Pressure 112/75 114/70 O2 Sat by Pulse 97 97 Oximetry - Reevaluation(s) Reevaluation #1: 02/12/20 22:25 Pt stated that he had eaten some blueberries and that he was getting itchy. Pt given 25mg of Benadryl. Now sleeping. O2 sats normal. (Joe Curran) Reevaluation #2: 02/12/20 22:56 Patients care transitioned to Dr. Mehta. (Joe Curran) Disposition <Joe Curran - Last Filed: 02/12/20 22:56> Is patient prescribed a controlled substance at d/c from ED?: No <Mauri Green - Last Filed: 02/13/20 01:52> Clinical Impression: Chest pain, Alcohol intoxication Disposition: HOME SELF-CARE Condition: Good Instructions (If sedation given, give patient instructions): Chest Pain (ED), Alcohol Intoxication (ED) Referrals: Nonstaff,Physician [Primary Care Provider] - 1-2 days
[2020-02-12] MEDS ORDERED: diphenhydrAMINE 50 MG/ML 1 ML VIAL IVP STA (22:00)
--- NOTE | 2020-02-12 22:31 | XR ---
EXAMINATION TYPE: XR chest 1V portable DATE OF EXAM: 02/12/2020 COMPARISON: 12/03/2019 HISTORY: Chest pain TECHNIQUE: Single view FINDINGS: There is no heart failure nor confluent pneumonic infiltrate. Costophrenic angles are clear . There are no hilar masses. IMPRESSION: No active cardiopulmonary disease. No change.
[2020-02-12 22:42] LABS: Basophils % (A) 1 %; Eosinophils % (A) 0 %; HCT 41.6 % (39.0-53.0); HGB 12.8 gm/dL (13.0-17.5); Lymphocytes # (A) 1.8 k/uL (1.0-4.8); Lymphocytes % (A) 29 %; MCH 29.7 pg (25.0-35.0); MCHC 30.7 g/dL (31.0-37.0); MCV 96.8 fL (80.0-100.0); Mean Platelet Volume 8.8; Monocytes # (A) 0.4 k/uL (0-1.0); Monocytes % (A) 7 %; Neutrophils # (A) 3.7 k/uL (1.3-7.7); Neutrophils % (A) 60 %; Platelet Count 102 k/uL (150-450); RDW 14.8 % (11.5-15.5); WBC 6.2 k/uL (3.8-10.6)
[2020-02-12 22:48] LABS: ALT 13 U/L (4-49); AST 29 U/L (17-59); African American GFR (CKD) >90 (>60 ml/min/1.73 sqM); Albumin 4.8 g/dL (3.5-5.0); Alkaline Phosphatase 64 U/L (38-126); Anion Gap 15 mmol/L; Blood Urea Nitrogen 12 mg/dL (9-20); Calcium 9.8 mg/dL (8.4-10.2); Carbon Dioxide 18 mmol/L (22-30); Chloride 109 mmol/L (98-107); Glucose 77 mg/dL (74-99); Lipase 100 U/L (23-300); Magnesium 2.1 mg/dL (1.6-2.3); Non-African American GFR(CKD) >90 (>60 ml/min/1.73 sqM); Potassium 4.2 mmol/L (3.5-5.1); Sodium 142 mmol/L (137-145); Total Bilirubin 0.6 mg/dL (0.2-1.3); Total Protein 8.5 g/dL (6.3-8.2)
[2020-02-12 22:52] LABS: Alcohol 195 mg/dL
[2020-02-12 23:07] LABS: Partial Thromboplastin Time 18.5 sec (22.0-30.0)
[2020-02-12 23:45] VITALS: TEMP 97
[2020-02-13] MEDS ORDERED: MAG HYDROX/AL HYDROX/SIMETH 30 ML, HYOSCYAMINE ELIXIR 10 ML, LIDOCAINE VISCOUS 2% 10 ML PO STA ×3 (02:09)
[2020-02-13 02:46] VITALS: BP 114/71; PULSE 77; RESP 24
== END 2020-02-13 02:46 | disposition home or self-care (01) ==
LOC: EC 21:30
DX: R07.9 Chest pain, unspecified (principal); F10.129 Alcohol abuse with intoxication, unspecified; M17.0 Bilateral primary osteoarthritis of knee; F17.200 Nicotine dependence, unspecified, uncomplicated; I25.2 Old myocardial infarction; Z79.891 Long term (current) use of opiate analgesic; Z95.5 Presence of coronary angioplasty implant and graft; Z88.8 Allergy status to other drugs, medicaments and biological substances; Y90.6 Blood alcohol level of 120-199 mg/100 ml; Z91.018 Allergy to other foods; Z82.49 Family history of ischemic heart disease and other diseases of the circulatory system
CPT/HCPCS: 36415 ×2; 93005; 80053; 83690; 83735; 84484 ×2; 85025; 85610; 85730; 71045; 99285; 96374; G0480; J1200; 80320

== ENCOUNTER 2020-02-13 03:14 | Emergency (ER) | payer MEDICARE, OTHER ==
[2020-02-13 03:37] VITALS: BP 120/84; PULSE 79; RESP 16; TEMP 98.2
--- NOTE | 2020-02-13 04:06 | ED ---
Psych HPI - General Chief Complaint: Psychiatric Symptoms Stated Complaint: Mental health Time Seen by Provider: 02/13/20 03:32 Source: patient Mode of arrival: ambulatory - History of Present Illness Initial Comments: This patient is 59-year-old man who presents with complaint of feeling depressed and also of hearing voices. He states that sometimes the voices tell him to ofelia m himself. He has had some suicidal ideation tonight. MD Complaint: suicidal ideation, feels depressed -: hour(s) Associated Psychiatric Symptoms: depression, suicidal ideation Quality: getting worse Improves With: none Worsens With: none Context: recent alcohol abuse Associated Symptoms: denies other symptoms - Related Data Home Medications Medication Instructions Recorded Confirmed Hydrocodone/Acetaminophen [[place] 1 tab PO TID PRN 12/03/19 12/03/19 10-325] Previous Rx's Medication Instructions Recorded Atorvastatin [Lipitor] 40 mg PO HS #30 tab 11/15/19 Aspirin 1 tab PO DAILY #30 tab 12/06/19 Folic Acid 1 mg PO DAILY@1200 #14 tab 12/06/19 Multivitamins, Thera [Multivitamin 1 each PO DAILY@1200 #14 tab 12/06/19 (formulary)] Pantoprazole [Protonix] 40 mg PO AC-BRKFST #21 tablet. 12/06/19 Thiamine [Vitamin B-1] 100 mg PO DAILY@1200 #14 tab 12/06/19 Allergies Allergy/AdvReac Type Severity Reaction Status Date / Time blueberry Allergy Rash/Hives Verified 02/13/20 03:37 nitroglycerin Allergy Swelling Verified 02/13/20 03:37 Review of Systems ROS Statement: Those systems with pertinent positive or pertinent negative responses have been documented in the HPI. ROS Other: All systems not noted in ROS Statement are negative. Constitutional: Denies: fever, chills Respiratory: Denies: cough, dyspnea Cardiovascular: Denies: chest pain, palpitations, edema Gastrointestinal: Denies: abdominal pain, nausea, vomiting Genitourinary: Denies: dysuria, hematuria Musculoskeletal: Denies: back pain Skin: Denies: rash Neurological: Denies: headache Psychiatric: Reports: depression, auditory hallucinations, suicidal thoughts. Denies: visual hallucinations, homicidal thoughts Past Medical History Past Medical History: Coronary Artery Disease (CAD), Chest Pain / Angina, Hyperlipidemia, Myocardial Infarction ([place]), Osteoarthritis (OA) Additional Past Medical History / Comment(s): Pt denies COPD, arthritis in back and bilateral knees, benign colon polyps Last Myocardial Infarction Date:: 2004 History of Any Multi-Drug Resistant Organisms: None Reported Past Surgical History: Bowel Resection, Heart Catheterization With Stent Additional Past Surgical History / Comment(s): Cardiac stents x 3, bowel surgery for pinpoint hole in bowel, L knee arthroscopy, colonoscopy/benign polypectomies. Past Anesthesia/Blood Transfusion Reactions: No Reported Reaction Date of Last Stent Placement:: 2013 Past Psychological History: Bipolar, Depression, PTSD, Schizophrenia Smoking Status: Current every day smoker Past Alcohol Use History: Daily Past Drug Use History: Marijuana - Past Family History Father Family Medical History: Respiratory Disorder Additional Family Medical History / Comment(s): Father at age 64 from Black lung disease Mother Family Medical History: Hypertension, Myocardial Infarction (DC) Additional Family Medical History / Comment(s): Mother of an DC at 78yrs old. Brother(s) Family Medical History: Myocardial Infarction (DC) Additional Family Medical History / Comment(s): Patient has 10 brothers and 2 from myocardial infarction and had history of alcoholism. Sister(s) Additional Family Medical History / Comment(s): He has 7 sisters that are alive with no major medical problems. He has one son that has and one daughter that is alive and okay. General Exam Limitations: no limitations General appearance: alert, in no apparent distress Head exam: Present: atraumatic, normocephalic Eye exam: Present: normal appearance. Absent: scleral icterus, conjunctival injection ENT exam: Present: normal oropharynx Neck exam: Present: normal inspection Respiratory exam: Present: normal lung sounds bilaterally. Absent: respiratory distress, wheezes, rales, rhonchi, stridor Cardiovascular Exam: Present: regular rate, normal rhythm, normal heart sounds. Absent: systolic murmur, diastolic murmur, rubs, gallop GI/Abdominal exam: Present: soft. Absent: distended, tenderness, guarding, rebound, mass Extremities exam: Present: normal inspection, normal capillary refill. Absent: pedal edema, calf tenderness Back exam: Present: normal inspection. Absent: CVA tenderness (R), CVA tenderness (L) Neurological exam: Present: alert Psychiatric exam: Present: normal affect, normal mood, suicidal ideation. Absent: depressed, agitated, anxious, flat affect, manic, homicidal ideation Skin exam: Present: warm, dry, intact, normal color. Absent: rash Course Vital Signs 02/13/20 03:32 Temperature 98.2 F Pulse Rate 79 Respiratory 16 Rate Blood Pressure 120/84 O2 Sat by Pulse 98 Oximetry Medical Decision Making - Medical Decision Making Patient is seen by EPS, and safety plan is put together for him. He now appears stable for outpatient follow-up and treatment. Disposition Clinical Impression: Schizoaffective disorder Disposition: HOME SELF-CARE Condition: Fair Is patient prescribed a controlled substance at d/c from ED?: No Referrals: Nonstaff,Physician [Primary Care Provider] - 1-2 days
== END 2020-02-13 06:07 | disposition home or self-care (01) ==
LOC: EC 03:14
DX: F25.9 Schizoaffective disorder, unspecified (principal); M19.90 Unspecified osteoarthritis, unspecified site; I25.2 Old myocardial infarction; F17.200 Nicotine dependence, unspecified, uncomplicated; Z95.5 Presence of coronary angioplasty implant and graft; Z88.8 Allergy status to other drugs, medicaments and biological substances; Z91.018 Allergy to other foods
CPT/HCPCS: 82075; 99285

== ENCOUNTER 2020-03-16 02:06 | Inpatient (IN) | payer MEDICARE, MEDICAID ==
[2020-03-16] MEDS ORDERED: MAGNESIUM HYDROXIDE 2,400 MG/10 ML CUP PO PRN (05:10)
[2020-03-16] MEDS ORDERED: MAG HYDROX/AL HYDROX/SIMETH 30 ML CUP PO PRN (05:10)
[2020-03-16] MEDS ORDERED: HALOPERIDOL LACTATE 5 MG/ML 1 ML VIAL IM PRN (05:13)
[2020-03-16] MEDS ORDERED: LORazepam 2 MG/ML INJ IM PRN (05:13)
[2020-03-16] MEDS ORDERED: haloperidoL 5 MG TAB PO PRN (05:13)
[2020-03-16] MEDS: LORazepam 1 MG TAB PO PRN ×2 (08:54→16:18)
[2020-03-16] MEDS: ACETAMINOPHEN TAB 325 MG TAB PO PRN ×2 (08:54→16:18)
[2020-03-16] MEDS: NICOTINE 21MG/24HR PATCH TRANSDERM SCH (08:54)
[2020-03-16] MEDS ORDERED: NICOTINE 7MG/24HR PATCH TRANSDERM SCH (09:00)
--- NOTE | 2020-03-16 11:19 | P.HP ---
Psychiatric H&P - . H&P Date: 03/16/20 History & Physical: Allergies Allergy/AdvReac Type Severity Reaction Status Date / Time blueberry Allergy Rash/Hives Verified 02/13/20 03:37 nitroglycerin Allergy Swelling Verified 02/13/20 03:37 Vital Signs Temp 97.8 F 03/16/20 09:49 Pulse 102 H 03/16/20 08:52 Resp 18 03/16/20 03:56 BP 116/85 03/16/20 08:52 Pulse Ox 98 03/16/20 03:56 Intake & Output 03/15/20 03/16/20 03/16/20 18:59 06:59 18:59 Weight 84.6 kg Sodium 142 Potassium 4.1 Chloride 104 CO2 25.1 BUN 10 Syeda and 0.8 Glucose 88 UDS positive for cocaine Ethanol level 195.9 03/16/20 10:43 IDENTIFYING DATA: Patient is a , unemployed, 59-year-old -Gabonese male known to this psychiatry service from his multiple past admissions to [facility] who presented to [facility] with a chief complaint of suicidal ideation in the context of alcohol intoxication. HPI: Patient presented to [facility] and was transferred to our psychiatric unit on 03/15/2020 for a psychiatric evaluation. The patient has been petitioned and certified. As for petition written by a registered nurse, the patient stated that he wants to hurt himself and others. He also endorsed hearing voices. As per clinical certificate filled out by the physician at [facility], the patient has been endorsing auditory hallucinations. Currently the patient is hesitant and reluctant to provide a complete history of events leading to this hospitalization. He is currently reporting that he is being bothered by auditory hallucinations that are constantly berating him and telling him mean things and he just wants to be left alone at this time. As per review of his medical records from [facility], the patient was reporting that his auditory hallucinations were telling him to kill his and himself. On further questioning, the patient is endorsing suicidal and homicidal ideation but refuses to expand on these thoughts. He is not reporting any visual hallucinations, paranoia, or delusions. The patient has had multiple inpatient psychiatric admissions over the past year as well as rehabilitation for his substance use but has been noted to be nonadherent with his outpatient follow- up, medications, and would leave the rehabilitation centers in a week or less. The patient does endorse significant substance use. He reports that he has been drinking "a few beers." Ethanol level was noted to be 195.9 at [facility]. He has also tested positive for cocaine. Much of the psychiatric history was obtained through chart review as the patient refused to further elaborate on his symptoms. PAST PSYCHIATRIC HISTORY: The patient has previous diagnoses of major depressive disorder with psychotic features, schizophrenia, cocaine use disorder, alcohol use disorder, nicotine dependence. During the last hospital admission, the patient was discharged on Cymbalta, Seroquel, Vistaril. Prior to this admission the patient was prescribed Seroquel and Effexor. The patient has had more than 30 inpatient psychiatric admission since 2010. The patient does not follow up outpatient with despite being set up with appropriate services. The patient does endorse prior suicide attempts but refuses to elaborate. PMH: Coronary artery disease, hyperlipidemia, history of myocardial infarction, Osteoarthritis, COPD ALLERGIES: Blueberry, nitroglycerin CHEMICAL DEPENDENCY HISTORY: Patient has significant substance use problems including cocaine and alcohol use. According to patient's chart, the patient has been using cocaine for the last 9 years and recently use prior to this admission. The patient has been drinking heavily over the past 20 years but would minimize his drinking on previous admissions. He would typically reply "a few beers." He has had a history of rehabilitation for substance abuse but reportedly leaves within 10 days. Patient smokes half a pack per day FAMILY PSYCHIATRIC/SUBSTANCE USE HISTORY: As per chart review, the patient supposedly lost 2 brothers by suicide. SOCIAL HISTORY: Much of the social history was obtained through chart review. The patient was born and raised in [place]. He has a 12th grade education. He is reportedly worked for [employer] in the past and retired 15 years ago. He is currently receiving Social Security and disability. Marital status is listed as . Evangelical hindu. MENTAL STATUS EXAM: General Appearance: Patient appears to be stated age is alert, difficult to direct, and uncooperative. Patient appears to have poor hygiene and grooming. Behavior: Patient is lying in bed and displaying elevated psychomotor activity. He appears restless and annoyed. Speech: Patient's speech is spontaneous, repetitive, and difficult to interrupt. Mood/Affect: Patient reports their mood is depressed, affect is angry and irritable. Suicidality/Homicidality: Patient is endorsing both suicidal and homicidal ideation but refuses to elaborate any intention or plan. Perceptions: Patient is endorsing auditory hallucinations that are command type and meeting in nature. Though content/process: There is no evidence of any delusional thought content and thought process is linear and goal-directed. Memory and concentration: AOX3, grossly intact for the purposes of this session. Can spell "WORLD" backwards Judgment and insight: Very poor STRENGTHS/WEAKNESSES: Strength is that patient is resilient. Weakness is that patient has chronic polysubstance abuse and very poor judgment. INTELLECT: Below average IMPRESSIONS: Major depressive disorder, recurrent, severe, with psychotic features Alcohol use disorder Cocaine use disorder Nicotine dependence PLAN: -Patient is admitted under involuntarytatus to [facility] for stabilization of psychiatric symptoms and safety. A second certification was completed and along with petition will be filed for court. -Medications : Will start patient on Risperdal 0.5 mg by mouth twice a day for psychosis Venlafaxine ER 75 mg by mouth at bedtime for depression -Ativan and HaldolPRN for agitation/aggression -Patient was counselled on substance abuse and desired to cut back on use -Patient was informed of the risks, benefits and side effects of the medication and patient verbally consented to taking the medications. -Internal Medicine consult to perform medical evaluation and physical. -NRT - nicotine patch -SW on board for discharge planning. Encourage patient to participate in groups to work on coping skills. 03/16/20 11:19
--- NOTE | 2020-03-16 16:01 | P.MDCNMH ---
History of Present Illness H&P Date: 03/16/20 Chief Complaint: psychiatric evaluation Patient presented to [facility] and was transferred to our psychiatric unit on 03/15/2020 for a psychiatric evaluation. The patient has been petitioned and certified. As for petition written by a registered nurse, the patient stated that he wants to hurt himself and others. He also endorsed hearing voices. As per clinical certificate filled out by the physician at [facility], the patient has been endorsing auditory hallucinations. Currently the patient is hesitant and reluctant to provide a complete history of events leading to this hospitalization. He is currently reporting that he is being bothered by auditory hallucinations that are constantly berating him and telling him mean things and he just wants to be left alone at this time. As per review of his medical records from [facility], the patient was reporting that his auditory hallucinations were telling him to kill his and himself. On further questioning, the patient is endorsing suicidal and homicidal ideation but refuses to expand on these thoughts. He is not reporting any visual hallucinations, paranoia, or delusions. The patient has had multiple inpatient psychiatric admissions over the past year as well as rehabilitation for his substance use but has been noted to be nonadherent with his outpatient follow- up, medications, and would leave the rehabilitation centers in a week or less. The patient does endorse significant substance use. He reports that he has been drinking "a few beers." Ethanol level was noted to be 195.9 at [facility]. He has also tested positive for cocaine. patient was admitted under involuntary status to mental health unit for further treatment Review of Systems REVIEW OF SYSTEMS: CONSTITUTIONAL: No fever, no malaise, no fatigue. HEENT: No recent visual problems or hearing problems. Denied any sore throat. CARDIOVASCULAR: No chest pain, orthopnea, PND, no palpitations, no syncope. PULMONARY: No shortness of breath, no cough, no hemoptysis. GASTROINTESTINAL: No diarrhea, no nausea, no vomiting, no abdominal pain. NEUROLOGICAL: No headaches, no weakness, no numbness. HEMATOLOGICAL: Denies any bleeding or petechiae. GENITOURINARY: Denies any burning micturition, frequency, or urgency. MUSCULOSKELETAL/RHEUMATOLOGICAL: Denies any joint pain, swelling, or any muscle pain. ENDOCRINE: Denies any polyuria or polydipsia. The rest of the 14-point review of systems is negative. Past Medical History Past Medical History: Coronary Artery Disease (CAD), Chest Pain / Angina, Hyperlipidemia, Myocardial Infarction (MA), Osteoarthritis (OA) Additional Past Medical History / Comment(s): Pt denies COPD, arthritis in back and bilateral knees, benign colon polyps Last Myocardial Infarction Date:: 2004 History of Any Multi-Drug Resistant Organisms: None Reported Past Surgical History: Bowel Resection, Heart Catheterization With Stent Additional Past Surgical History / Comment(s): Cardiac stents x 3, bowel surgery for pinpoint hole in bowel, L knee arthroscopy, colonoscopy/benign polypectomies. Past Anesthesia/Blood Transfusion Reactions: No Reported Reaction Date of Last Stent Placement:: 2013 Past Psychological History: Bipolar, Depression, PTSD, Schizophrenia Smoking Status: Current every day smoker Past Alcohol Use History: Daily Past Drug Use History: Marijuana - Past Family History Father Family Medical History: Respiratory Disorder Additional Family Medical History / Comment(s): Father at age 64 from Black lung disease Mother Family Medical History: Hypertension, Myocardial Infarction (MA) Additional Family Medical History / Comment(s): Mother of an MA at 78yrs old. Brother(s) Family Medical History: Myocardial Infarction (MA) Additional Family Medical History / Comment(s): Patient has 10 brothers and 2 from myocardial infarction and had history of alcoholism. Sister(s) Additional Family Medical History / Comment(s): He has 7 sisters that are alive with no major medical problems. He has one son that has and one daughter that is alive and okay. Medications and Allergies Home Medications Medication Instructions Recorded Confirmed Type Atorvastatin [Lipitor] 40 mg PO HS #30 tab 11/15/19 12/03/19 Rx Hydrocodone/Acetaminophen [[place] 1 tab PO TID PRN 12/03/19 12/03/19 History 10-325] Aspirin 1 tab PO DAILY #30 tab 12/06/19 Rx Folic Acid 1 mg PO DAILY@1200 #14 tab 12/06/19 Rx Multivitamins, Thera [Multivitamin 1 each PO DAILY@1200 #14 tab 12/06/19 Rx (formulary)] Pantoprazole [Protonix] 40 mg PO AC-TYLERKFSFallon #21 tablet. 12/06/19 Rx Thiamine [Vitamin B-1] 100 mg PO DAILY@1200 #14 tab 12/06/19 Rx Allergies Allergy/AdvReac Type Severity Reaction Status Date / Time blueberry Allergy Rash/Hives Verified 02/13/20 03:37 nitroglycerin Allergy Swelling Verified 02/13/20 03:37 Physical Exam Vitals: Vital Signs Temp Pulse Resp BP Pulse Ox 03/16/20 09:49 97.8 F 03/16/20 08:52 102 H 116/85 03/16/20 03:56 98.4 F 82 18 137/81 98 Intake and Output 03/15/20 03/16/20 03/16/20 22:59 06:59 14:59 Other: Weight 84.6 kg - Constitutional General appearance: Present: average body habitus, cooperative, no acute distress - EENT Eyes: Present: anicteric sclerae, EOMI, PERRLA, normal appearance ENT: Present: hearing grossly normal, normal oropharynx Ears: bilateral: normal - Neck Neck: Present: normal ROM. Absent: lymphadenopathy, rigidity, thyromegaly Carotids: negative: bruit present Thyroid: bilateral: normal size, negative: enlarged, nodule - Respiratory Respiratory: bilateral: CTA, negative: rales, rhonchi, wheezing - Cardiovascular Rhythm: regular Heart sounds: normal: S1, S2 Abnormal Heart Sounds: Absent: systolic murmur, diastolic murmur - Gastrointestinal General gastrointestinal: Present: normal bowel sounds, soft. Absent: distended, organomegaly, tenderness - Genitourinary Genitourinary Comment(s): deferred - Integumentary Integumentary: Present: normal turgor. Absent: jaundiced, rash, ulcer - Neurologic Neurologic: Present: CNII-XII intact. Absent: focal deficits - Musculoskeletal Musculoskeletal: Present: gait normal, strength equal bilaterally - Psychiatric Psychiatric: Present: A&O x's 3, appropriate affect, intact judgment & insight Cranial Nerve Examination - Cranial Nerves Cranial Nerve I- Olfactory: Intact Cranial Nerve II- Optic: Intact Cranial Nerve III- Oculomotor: Intact Cranial Nerve IV- Trochlear: Intact Cranial Nerve V- Trigeminal: Intact Cranial Nerve - Abducens: Intact Cranial Nerve VII- Facial: Intact Cranial Nerve VIII- Auditory: Intact Cranial Nerve IX- Glossopharyngeal: Intact Cranial Nerve X- Vagus: Intact Cranial Nerve XI- Accessory: Intact Cranial Nerve XII- Hypoglossal: Intact Assessment and Plan Assessment: 1. Major depressive disorder; your management 2. Substance abuse; alcohol/cocaine 3. Hyperlipidemia; patient is supposed to take Lipitor at home; denies taking any 4. CAD; status post stent placement per history; patient takes an aspirin at home
[2020-03-16] MEDS: risperiDONE 0.5 MG TAB PO SCH (20:43)
[2020-03-16] MEDS: ATORVASTATIN 40 MG TAB PO SCH (20:43)
[2020-03-16] MEDS: VENLAFAXINE HCL ER 75 MG CAP PO SCH (20:43)
[2020-03-17] MEDS: NICOTINE 21MG/24HR PATCH TRANSDERM SCH (08:55)
[2020-03-17] MEDS: risperiDONE 0.5 MG TAB PO SCH ×2 (08:56→20:49)
[2020-03-17] MEDS: PANTOPRAZOLE 40 MG TABLET PO SCH (08:56)
[2020-03-17] MEDS: ASPIRIN 81 MG PO SCH (08:56)
[2020-03-17] MEDS: LORazepam 1 MG TAB PO PRN ×2 (08:57→20:50)
[2020-03-17 09:34] LABS: ALT 17 U/L (4-49); AST 23 U/L (17-59); African American GFR (CKD) >90 (>60 ml/min/1.73 sqM); Albumin 4.1 g/dL (3.5-5.0); Alkaline Phosphatase 51 U/L (38-126); Anion Gap 5 mmol/L; Blood Urea Nitrogen 17 mg/dL (9-20); Calcium 9.5 mg/dL (8.4-10.2); Carbon Dioxide 29 mmol/L (22-30); Chloride 101 mmol/L (98-107); Cholesterol 198 mg/dL (<200); Glucose 105 mg/dL (74-99); Non-African American GFR(CKD) >90 (>60 ml/min/1.73 sqM); Potassium 4.2 mmol/L (3.5-5.1); Sodium 135 mmol/L (137-145); Total Bilirubin 0.8 mg/dL (0.2-1.3); Total Protein 7.5 g/dL (6.3-8.2); Triglycerides 88 mg/dL (<150)
[2020-03-17 09:41] LABS: Basophils % (A) 0 %; Eosinophils % (A) 1 %; HCT 39.6 % (39.0-53.0); LDL Cholesterol,Calculated 59 mg/dL (0-99); Lymphocytes # (A) 2.2 k/uL (1.0-4.8); Lymphocytes % (A) 54 %; MCH 30.9 pg (25.0-35.0); MCHC 32.9 g/dL (31.0-37.0); Mean Platelet Volume 8.4; Monocytes # (A) 0.3 k/uL (0-1.0); Monocytes % (A) 7 %; Neutrophils # (A) 1.4 k/uL (1.3-7.7); Neutrophils % (A) 34 %; RBC 4.22 m/uL (4.30-5.90); RDW 14.4 % (11.5-15.5); WBC 4.1 k/uL (3.8-10.6)
[2020-03-17 09:44] LABS: HDL Cholesterol 121 mg/dL (40-60)
[2020-03-17 09:45] LABS: Platelet Count 170 k/uL (150-450)
[2020-03-17] MEDS: MULTIVITAMINS, THERA 1 EACH TAB PO SCH (13:06)
[2020-03-17] MEDS: FOLIC ACID 1 MG TAB PO SCH (13:06)
[2020-03-17 14:08] LABS: Hemoglobin A1C 5.7 % (4.0-6.0)
[2020-03-17 16:58] LABS: Appearance,Urine Cloudy (Clear); Bilirubin,Urine Negative (Negative); Blood,Urine Negative (Negative); Color,Urine Yellow; Glucose,Urine (UA) Trace (Negative); Ketones,Urine Trace (Negative); Leukocyte Esterase,Urine Moderate (Negative); Mucus,Urine Many /hpf; Nitrite,Urine Negative (Negative); PH, Urine 6.5 (5.0-8.0); Protein,Urine 1+ (Negative); RBC,Urine 2 /hpf (0-5); Specific Gravity,Urine 1.033 (1.001-1.035); Squamous Epithelial Cell,Urine 7 /hpf (0-4); WBC,Urine 13 /hpf (0-5)
--- NOTE | 2020-03-17 20:06 | PN ---
DATE OF SERVICE: 03/17/2020 PROGRESS NOTE CHIEF COMPLAINT: The patient was hearing voices berating him. He had made threats to hurt himself. He had relapsed to drinking. INTERVAL HISTORY: Patient has been doing fair. He had a quiet day yesterday. Apparently he spent a fair amount of time in bed. He did not attend groups. His two CIWA scores yesterday were 9. He said he slept about 4 or 5 hours last night, though did not have significant complaints related to sleep. Today he has been up. He spent most of the time in his room. His highest CIWA score today is 2. He has not attended groups today. He asked questions about the petition process and wondering what the implications of that were. He feels that medications have been helping. He says his voices have quieted down quite a bit. It is noted in the admission note that there was a statement he had made threats towards others. He said he only made threats to harm himself. He does note that his appetite is down and he was asking for Ensure with meals. He tolerates his psychotropic medications. MENTAL STATUS: Patient sat without restlessness. Eye contact was fair. Psychomotor activity was somewhat slowed. He spoke in a soft, at times almost airy voice. He mostly looked straightforward and somewhat down though he did look over and give me some eye contact. His thoughts were clear and coherent. He did not say a lot. He answered questions appropriately, though was not spontaneous or interactive. His affect was flat. His mood reserved. He seemed somewhat distressed. It is difficult to say if he continues with his significant thought disorder. He said he does not have thoughts today of harming himself. He was not able to identify what had set off those thoughts that brought him to the hospital. Cognition was clear. ASSESSMENT: I will continue the current diagnosis and treatment plan. We will continue to engage the patient in individual and group therapeutic activities. I will continue psychotropic medications the same including Effexor XR 75 mg a day and Risperdal 0.5 mg twice a day. The patient is tolerating his psychotropic medications well. I had an extensive discussion with the patient regarding the petition and involuntary treatment process. The patient seemed comfortable with the idea of considering a deferral. He is hopeful to get a referral to [facility]. He said he called this weekend, though was told that he would not be able to get an assessment until Thursday, which he intends to do. We will focus on stabilization and discharge planning. SYBIL / OLIVIA: [id number] / [place]
[2020-03-17] MEDS: ATORVASTATIN 40 MG TAB PO SCH (20:49)
[2020-03-17] MEDS: VENLAFAXINE HCL ER 75 MG CAP PO SCH (20:49)
[2020-03-18] MEDS: NICOTINE 21MG/24HR PATCH TRANSDERM SCH (08:14)
[2020-03-18] MEDS: risperiDONE 0.5 MG TAB PO SCH ×2 (08:14→20:10)
[2020-03-18] MEDS: ASPIRIN 81 MG PO SCH (08:14)
[2020-03-18] MEDS: PANTOPRAZOLE 40 MG TABLET PO SCH (08:14)
[2020-03-18] MEDS: LORazepam 1 MG TAB PO PRN ×2 (08:14→20:10)
--- NOTE | 2020-03-18 11:48 | PN ---
PROGRESS NOTE 03/18/2020 CHIEF COMPLAINT: The patient was hearing voices berating him. He had made threats to hurt himself. He had relapsed to drinking. INTERVAL HISTORY: Patient has been doing fair. He had a quiet day yesterday. He tends to keep to himself. He will interact a little with others. He spends a fair amount of time in his room. He will come out some in the day area and wander about. He did not attend groups yesterday. He said he slept fairly well last night. Today he has been up. Mostly he has been in his room. He voiced no significant complaints or concerns. His CIWA scores have been minimal. Vital signs this morning were in the normal range. He tolerates his psychotropic medications. MENTAL STATUS: The patient gave fair eye contact. Psychomotor activity was slowed. Speech was monotone and soft. He answered questions with 1 or 2 word responses. He did not say much. He was not spontaneous or interactive. His affect was blunted. His mood was reserved. He did appear to be distressed. He was focused on the idea of getting referred for substance abuse treatment and seemed to be motivated in that regard. It was difficult to assess for thought disorder. He voiced no thoughts of harm. Cognition was clear. ASSESSMENT: I will continue the current diagnosis and treatment plan. I will continue psychotropic medications the same. I briefly discussed medication issues with the patient. We will focus on stabilization and discharge planning. SYBIL / OLIVIA: [id number] /
[2020-03-18] MEDS: MULTIVITAMINS, THERA 1 EACH TAB PO SCH (12:53)
[2020-03-18] MEDS: FOLIC ACID 1 MG TAB PO SCH (12:53)
[2020-03-18] MEDS: VENLAFAXINE HCL ER 75 MG CAP PO SCH (20:10)
[2020-03-18] MEDS: ATORVASTATIN 40 MG TAB PO SCH (20:10)
[2020-03-19] MEDS: NICOTINE 21MG/24HR PATCH TRANSDERM SCH (08:47)
[2020-03-19] MEDS: risperiDONE 0.5 MG TAB PO SCH (08:47)
[2020-03-19] MEDS: ASPIRIN 81 MG PO SCH (08:47)
[2020-03-19] MEDS: FOLIC ACID 1 MG TAB PO SCH (08:47)
[2020-03-19] MEDS: PANTOPRAZOLE 40 MG TABLET PO SCH (08:47)
[2020-03-19] MEDS: MULTIVITAMINS, THERA 1 EACH TAB PO SCH (08:47)
[2020-03-19] MEDS: LORazepam 1 MG TAB PO PRN ×2 (08:48→20:37)
--- NOTE | 2020-03-19 10:09 | P.PN ---
Progress Note - Text Progress Note Date: 03/19/20 Interval History: Patient was seen wandering the hallways and was directable and agreeable to speak with policy writer sales in the office. The patient reports that he is feeling significantly better. He is not reporting any suicidal or homicidal ideation, intention, and/or plan. He reports that the hallucinations have decreased in severity but continued to be somewhat present. He states that they mainly present as "mumbling." He is not reporting any paranoia or delusions at this time. The patient states that he has called access and plans to go to [place] for rehabilitation after discharge. He has been adherent with his medications and is not reporting any significant side effects. He does endorse elevated anxiety and restlessness. We discussed at length that this may be secondary to his withdrawal from alcohol and cocaine. Mental Status Exam: General Appearance: Patient appears to be stated age is alert, directable, and cooperative. Patient has good hygiene and grooming. Behavior: Patient is calmly seated without any agitated behavior. Psychomotor activity appears normal. Eye contact is appropriate. Speech: Patient's speech is fluent and nonpressured. Mood/Affect: Mood is improving mildly, affect is congruent and constricted. Suicidality/Homicidality: Patient denies having any suicidal or homicidal ideation intent or plan. Perceptions: Patient endorses auditory hallucinations but denies any visual hallucinations. Though content/process: There is no evidence of any delusional thought content and thought process is linear and goal-directed. Memory and concentration: AOX3, grossly intact for the purposes of this session Judgment and insight: Improving mildly Assessment Major depressive disorder, recurrent, severe, with psychotic features Alcohol use disorder Cocaine use disorder Nicotine dependence Plan: -Patient continues to meet criteria for inpatient psychiatric admission for symptom stabilization and safety. Patient was petitioned and certified. The patient reports that he plans to defer mental health court. -Medications: We will increase Risperdal to 0.75 mg by mouth twice a day for mood stabilization/psychosis We'll increase venlafaxine ER to 150 mg by mouth daily at bedtime for depression/anxiety -When necessary Ativan and Haldol for agitation/aggression. -SW on board for discharge planning. Encouraged the patient to participate in milieu.
[2020-03-19] MEDS: VENLAFAXINE HCL ER 150 MG CAP PO SCH (20:37)
[2020-03-19] MEDS: ATORVASTATIN 40 MG TAB PO SCH (20:37)
[2020-03-19] MEDS: risperiDONE 0.25 MG TAB PO SCH (20:37)
[2020-03-20 06:37] VITALS: RESP 16
[2020-03-20] MEDS: PANTOPRAZOLE 40 MG TABLET PO SCH (08:14)
[2020-03-20] MEDS: ASPIRIN 81 MG PO SCH (08:14)
[2020-03-20] MEDS: risperiDONE 0.25 MG TAB PO SCH (08:15)
[2020-03-20] MEDS: LORazepam 1 MG TAB PO PRN ×2 (08:16→20:30)
--- NOTE | 2020-03-20 11:23 | P.PN ---
Progress Note - Text Progress Note Date: 03/20/20 Interval History: Patient was seen wandering the hallways and was directable and agreeable to speak with rewriter in the office. Patient reports that he is feeling better. He is currently stating that he would like to go straight to rehab from the psychiatric unit as he feels like he would relapse if he was to be discharged home. He is currently not reporting any suicidal or homicidal ideation, intention, and/or plan. He is not reporting any auditory or visual hallucina tions. He is denying any paranoia or delusions. He has been adherent with his medications and is not reporting any significant side effects at this time. Mental Status Exam: General Appearance: Patient appears to be stated age is alert, directable, and cooperative. Patient has good hygiene and grooming. Behavior: Patient is calmly seated without any agitated behavior. Psychomotor activity appears normal. Eye contact is appropriate. Speech: Patient's speech is fluent and nonpressured. Mood/Affect: Mood is improving mildly, affect is congruent and constricted. Suicidality/Homicidality: Patient denies having any suicidal or homicidal ideation intent or plan. Perceptions: Patient endorses auditory hallucinations but denies any visual hallucinations. Though content/process: There is no evidence of any delusional thought content and thought process is linear and goal-directed. Memory and concentration: AOX3, grossly intact for the purposes of this session Judgment and insight: Improving mildly Assessment Major depressive disorder, recurrent, severe, with psychotic features Alcohol use disorder Cocaine use disorder Nicotine dependence Plan: -Patient continues to meet criteria for inpatient psychiatric admission for symptom stabilization and safety. Patient deferred mental health court today. -Medications: We will increase Risperdal to 1 mg by mouth twice a day for mood stabilization/psychosis Continue venlafaxine ER to 150 mg by mouth daily at bedtime for depression/anxiety -When necessary Ativan and Haldol for agitation/aggression. -SW on board for discharge planning. Encouraged the patient to participate in milieu.
[2020-03-20] MEDS: MULTIVITAMINS, THERA 1 EACH TAB PO SCH (14:33)
[2020-03-20] MEDS: FOLIC ACID 1 MG TAB PO SCH (14:33)
[2020-03-20] MEDS: ATORVASTATIN 40 MG TAB PO SCH (20:29)
[2020-03-20] MEDS: risperiDONE 1 MG TAB PO SCH (20:29)
[2020-03-20] MEDS: VENLAFAXINE HCL ER 150 MG CAP PO SCH (20:29)
[2020-03-21] MEDS: risperiDONE 1 MG TAB PO SCH ×2 (08:14→20:51)
[2020-03-21] MEDS: PANTOPRAZOLE 40 MG TABLET PO SCH (08:14)
[2020-03-21] MEDS: LORazepam 1 MG TAB PO PRN ×2 (08:14→17:21)
[2020-03-21] MEDS: ASPIRIN 81 MG PO SCH (08:14)
--- NOTE | 2020-03-21 11:20 | P.PN ---
Progress Note - Text Progress Note Date: 03/21/20 Interval History: Patient was seen wandering the hallways and was directable and agreeable to speak with press writer in the office. Patient reports that he is feeling better. He states that he had headache this morning but that improved after drinking some water. He is currently awaiting placement to an inpatient rehabilitation facility. The patient would like to go straight to rehab as he feels that if he was to be discharged anywhere else, that he would relapse into substance use. The patient has had an excessive amount of inpatient psychiatric admissions primarily related to his substance abuse. He has significant history of being dysphoric, psychotic, and suicidal when intoxicated or withdrawing from cocaine and alcohol. He is currently not reporting any suicidal or homicidal ideation, intention, and/or plan. He is not reporting any auditory or visual halluc inations. His delusions. He has been adherent with his medications and is not reporting any significant side effects at this time. . Mental Status Exam: General Appearance: Patient appears to be stated age is alert, directable, and cooperative. Patient has good hygiene and grooming. Behavior: Patient is calmly seated without any agitated behavior. Psychomotor activity appears normal. Eye contact is appropriate. Speech: Patient's speech is fluent and nonpressured. Mood/Affect: Mood is improving mildly, affect is congruent and constricted. Suicidality/Homicidality: Patient denies having any suicidal or homicidal ideation intent or plan. Perceptions: Patient endorses auditory hallucinations but denies any visual hallucinations. Though content/process: There is no evidence of any delusional thought content and thought process is linear and goal-directed. Future oriented. Memory and concentration: AOX3, grossly intact for the purposes of this session Judgment and insight: Improving mildly Assessment Major depressive disorder, recurrent, severe, with psychotic features Alcohol use disorder Cocaine use disorder Nicotine dependence Plan: -Patient continues to meet criteria for inpatient psychiatric admission for symptom stabilization and safety. Patient deferred mental health court. -Substance use disorder clinical certificate was filled out for the patient. -Minute currently awaiting inpatient rehabilitation placement. -Medications: Continue Risperdal 1 mg by mouth twice a day for mood stabilization/psychosis Continue venlafaxine ER to 150 mg by mouth daily at bedtime for depression/anxiety -When necessary Ativan and Haldol for agitation/aggression. -SW on board for discharge planning. Encouraged the patient to participate in milieu.
[2020-03-21] MEDS: FOLIC ACID 1 MG TAB PO SCH (12:38)
[2020-03-21] MEDS: MULTIVITAMINS, THERA 1 EACH TAB PO SCH (12:38)
[2020-03-21] MEDS: VENLAFAXINE HCL ER 150 MG CAP PO SCH (20:51)
[2020-03-21] MEDS: ATORVASTATIN 40 MG TAB PO SCH (20:51)
[2020-03-22] MEDS: risperiDONE 1 MG TAB PO SCH ×2 (08:02→20:41)
[2020-03-22] MEDS: PANTOPRAZOLE 40 MG TABLET PO SCH (08:02)
[2020-03-22] MEDS: ASPIRIN 81 MG PO SCH (08:02)
[2020-03-22] MEDS: LORazepam 1 MG TAB PO PRN (08:29)
--- NOTE | 2020-03-22 11:45 | P.PN ---
Progress Note - Text Progress Note Date: 03/22/20 Interval History: Patient was seen wandering the hallways and was directable and agreeable to speak with editorial writer in the office. Patient reports he continues to feel better. He is not reporting any suicidal or homicidal ideation, intention, and/or plan. He is not reporting any auditory or visual hallucinations. He is denying any paranoia or delusions. He states that he really wants to go straight to rehab as if he was to return home he would relapse. The patient states that he needs to do something different. The patient has had multiple inpatient psychiatric admissions secondary to his substance use. He has been scheduled to go to rehab this Thursday. . Mental Status Exam: General Appearance: Patient appears to be stated age is alert, directable, and cooperative. Patient has good hygiene and grooming. Behavior: Patient is calmly seated without any agitated behavior. Psychomotor activity appears normal. Eye contact is appropriate. Speech: Patient's speech is fluent and nonpressured. Mood/Affect: Mood is improving mildly, affect is congruent and constricted. Suicidality/Homicidality: Patient denies having any suicidal or homicidal ideation intent or plan. Perceptions: Patient endorses auditory hallucinations but denies any visual hallucinations. Though content/process: There is no evidence of any delusional thought content and thought process is linear and goal-directed. Future oriented. Memory and concentration: AOX3, grossly intact for the purposes of this session Judgment and insight: Improving mildly Assessment Major depressive disorder, recurrent, severe, with psychotic features Alcohol use disorder Cocaine use disorder Nicotine dependence Plan: -Patient continues to meet criteria for inpatient psychiatric admission for symptom stabilization and safety. Patient deferred mental health court. -Substance use disorder clinical certificate was filled out for the patient. -Patient is scheduled to go to rehab this Thursday. -Medications: Continue Risperdal 1 mg by mouth twice a day for mood stabilization/psychosis Continue venlafaxine ER to 150 mg by mouth daily at bedtime for depression/anxiety -When necessary Vistaril and Haldol for agitation/aggression. -SW on board for discharge planning. Encouraged the patient to participate in milieu.
[2020-03-22] MEDS: FOLIC ACID 1 MG TAB PO SCH (12:43)
[2020-03-22] MEDS: MULTIVITAMINS, THERA 1 EACH TAB PO SCH (12:43)
[2020-03-22] MEDS: hydrOXYzine pamoate 25 MG CAP PO PRN (20:41)
[2020-03-22] MEDS: ATORVASTATIN 40 MG TAB PO SCH (20:41)
[2020-03-22] MEDS: VENLAFAXINE HCL ER 150 MG CAP PO SCH (20:41)
[2020-03-23] MEDS: FOLIC ACID 1 MG TAB PO SCH (08:47)
[2020-03-23] MEDS: MULTIVITAMINS, THERA 1 EACH TAB PO SCH (08:47)
[2020-03-23] MEDS: risperiDONE 1 MG TAB PO SCH ×2 (08:48→20:47)
[2020-03-23] MEDS: ASPIRIN 81 MG PO SCH (08:48)
[2020-03-23] MEDS: PANTOPRAZOLE 40 MG TABLET PO SCH (08:48)
--- NOTE | 2020-03-23 10:33 | P.PN ---
Progress Note - Text Progress Note Date: 03/23/20 Interval History: Patient was seen wandering the hallways and was directable and agreeable to speak with ticket writer in the office. Patient reports that he is feeling better. He does state that he has been experiencing some mild nausea which it should be to the food he ate this morning. He expresses desire to shave. He is not reporting any suicidal or homicidal ideation, intention, and/or plan. Hoarding any auditory or visualizations. She denies any paranoia or delusions. He has been adherent with his medications and is not reporting any significant side effects at this time. He is scheduled for transport to rehab on Thursday. Mental Status Exam: General Appearance: Patient appears to be stated age is alert, directable, and cooperative. Patient has fair hygiene and grooming. Patient has a short andres that he wants to shave. Behavior: Patient is calmly seated without any agitated behavior. Psychomotor activity appears normal. Eye contact is appropriate. Speech: Patient's speech is fluent and nonpressured. Mood/Affect: Mood is improving mildly, affect is congruent and constricted. Suicidality/Homicidality: Patient denies having any suicidal or homicidal ideation intent or plan. Perceptions: Patient endorses auditory hallucinations but denies any visual hallucinations. Though content/process: There is no evidence of any delusional thought content and thought process is linear and goal-directed. Future oriented. Memory and concentration: AOX3, grossly intact for the purposes of this session Judgment and insight: Improving mildly Assessment Major depressive disorder, recurrent, severe, with psychotic features Alcohol use disorder Cocaine use disorder Nicotine dependence Plan: -Patient continues to meet criteria for inpatient psychiatric admission for symptom stabilization and safety. Patient deferred mental health court. -Substance use disorder clinical certificate was filled out for the patient. -Patient is scheduled to go to rehab this Thursday. -Medications: Continue Risperdal 1 mg by mouth twice a day for mood stabilization/psychosis Continue venlafaxine ER to 150 mg by mouth daily at bedtime for depression/anxiety -When necessary Vistaril and Haldol for agitation/aggression. -SW on board for discharge planning. Encouraged the patient to participate in milieu.
[2020-03-23] MEDS: VENLAFAXINE HCL ER 150 MG CAP PO SCH (20:47)
[2020-03-23] MEDS: ATORVASTATIN 40 MG TAB PO SCH (20:47)
[2020-03-23] MEDS: hydrOXYzine pamoate 25 MG CAP PO PRN (20:57)
[2020-03-24] MEDS: ASPIRIN 81 MG PO SCH (08:31)
[2020-03-24] MEDS: risperiDONE 1 MG TAB PO SCH ×2 (08:31→21:01)
[2020-03-24] MEDS: PANTOPRAZOLE 40 MG TABLET PO SCH (08:31)
[2020-03-24] MEDS: hydrOXYzine pamoate 25 MG CAP PO PRN ×2 (08:31→21:02)
[2020-03-24] MEDS: MULTIVITAMINS, THERA 1 EACH TAB PO SCH (08:32)
[2020-03-24] MEDS: FOLIC ACID 1 MG TAB PO SCH (08:32)
[2020-03-24 09:35] VITALS: BMI 20.6
[2020-03-24 13:40] VITALS: TEMP 98.2
--- NOTE | 2020-03-24 15:59 | P.PN ---
Progress Note - Text Progress Note Date: 03/24/20 Clinical Problems: Major depressive disorder recurrent severe psychotic features, alcohol use disorder severe, cocaine use disorder severe, tobacco use. Interim history: I reviewed the medical record and interviewed the patient. He denied problems or concerns. Specifically he denied feeling depressed or having thoughts of or suicide. He also denied experiencing auditory or visual hospital hallucinations. He is anticipating his discharge tomorrow to [facility] for residential substance abuse treatment. Mental status exam: He presented as a tall casually groomed Iranian male who was pleasant on approach. He made eye contact and attended the interview. He had no prominent physical abnormalities. He had a blunted facial expression. He had slight psychomotor retardation but no abnormal involuntary movements. His gait was slow and steady. His speech was spontaneous with normal rate and rhythm. His affect was blunted but stable. He denied suicidal ideation or wishes. He denied homicidal ideation. He denied feeling hopeless, helpless or worthless. He did not express ideas reference, paranoid ideation or delusions. His thinking was concrete but his associations were coherent, logical and goal directed. Assessment: He is much improved from admission has no signs or symptoms of alcohol withdrawal. Plan: Continue inpatient treatment. Discharge on 04/22/2020 to [facility] for residential substance abuse treatment. Continue Effexor XR 150 mg daily and Risperdal 1 mg by mouth twice a day. Continue Lipitor 40 mg at bedtime. Haldol 5 mg by mouth IM 3 times a day when necessary for agitation acute psychosis.
[2020-03-24] MEDS: ATORVASTATIN 40 MG TAB PO SCH (21:01)
[2020-03-24] MEDS: VENLAFAXINE HCL ER 150 MG CAP PO SCH (21:02)
[2020-03-25 07:00] VITALS: BP 114/75; PULSE 101
[2020-03-25] MEDS: PANTOPRAZOLE 40 MG TABLET PO SCH (08:18)
[2020-03-25] MEDS: FOLIC ACID 1 MG TAB PO SCH (08:18)
[2020-03-25] MEDS: ASPIRIN 81 MG PO SCH (08:18)
[2020-03-25] MEDS: risperiDONE 1 MG TAB PO SCH (08:18)
[2020-03-25] MEDS: MULTIVITAMINS, THERA 1 EACH TAB PO SCH (08:18)
== END 2020-03-25 09:48 | disposition home or self-care (01) | DRG 885 ==
LOC: 3MHU 03:47
PROVIDERS: ADMIT Psychiatry & Neurology Psychiatry; ATTEND Psychiatry & Neurology Psychiatry
DX: F33.3 Major depressive disorder, recurrent, severe with psychotic symptoms (principal); R45.851 Suicidal ideations; F10.239 Alcohol dependence with withdrawal, unspecified; F14.13 Cocaine abuse, unspecified with withdrawal; F41.9 Anxiety disorder, unspecified; I25.10 Atherosclerotic heart disease of native coronary artery without angina pectoris; I25.2 Old myocardial infarction; J44.9 Chronic obstructive pulmonary disease, unspecified; F17.210 Nicotine dependence, cigarettes, uncomplicated; R45.850 Homicidal ideations; F10.229 Alcohol dependence with intoxication, unspecified; E78.5 Hyperlipidemia, unspecified; Z91.5 Personal history of self-harm; M17.0 Bilateral primary osteoarthritis of knee; M47.9 Spondylosis, unspecified; Z56.0 Unemployment, unspecified; Z90.49 Acquired absence of other specified parts of digestive tract; Z88.8 Allergy status to other drugs, medicaments and biological substances; Z86.010 Personal history of colon polyps; Z79.82 Long term (current) use of aspirin; Z79.899 Other long term (current) drug therapy
CPT/HCPCS: 80053; 80061; 81001; 83036; 84443; 85025

== ENCOUNTER 2020-04-15 19:00 | Inpatient (IN) | payer MEDICARE, OTHER ==
--- NOTE | 2020-04-15 19:40 | ED ---
General Adult HPI - General Chief complaint: Chest Pain Stated complaint: Chest pain Time Seen by Provider: 04/15/20 19:25 Source: patient, EMS Mode of arrival: EMS Limitations: altered mental status - History of Present Illness Initial comments: Patient presents the ED by ambulance for evaluation. Per EMS, the patient was picked up outside of a [facility] and he was complaining of having chest pain. Patient appears to be very intoxicated and smells of alcohol on presentation to the ED. Patient tells me that he was drinking at the [employer] earlier today, but he is unable to tell me exactly how many drinks he has had. Patient denies illicit drug use. Patient states that he was having chest pain earlier tonight, but he denies having any chest pain currently. Patient denies having any symptoms or complaints at this time. Patient denies trauma or injury, fever or chills, headache, neck/arm/jaw/back pain, cough or cold symptoms, dyspnea, pa lpitations, dizziness, abdominal pain, nausea/vomiting/diarrhea, leg or calf swelling or pain, or any other symptoms or complaints. Patient was given aspirin 324 mg by EMS. - Related Data Previous Rx's Medication Instructions Recorded Aspirin 81 mg PO DAILY 30 Days chew 03/23/20 Atorvastatin [Lipitor] 40 mg PO HS 30 Days tab 03/23/20 Folic Acid 1 mg PO DAILY@1200 30 Days tab 03/23/20 Multivitamins, Thera [Multivitamin 1 each PO DAILY@1200 30 Days tab 03/23/20 (formulary)] Pantoprazole [Protonix] 40 mg PO AC-[id number] 30 Days 03/23/20 tablet. Thiamine [Vitamin B-1] 100 mg PO DAILY@1200 30 Days tab 03/23/20 Venlafaxine HCl ER [Effexor XR] 150 mg PO HS 30 Days cap.er.24h 03/23/20 risperiDONE [RisperDAL] 1 mg PO BID 30 Days tab 03/23/20 Allergies Allergy/AdvReac Type Severity Reaction Status Date / Time blueberry Allergy Rash/Hives Verified 02/13/20 03:37 nitroglycerin Allergy Swelling Verified 02/13/20 03:37 Review of Systems ROS Statement: Those systems with pertinent positive or pertinent negative responses have been documented in the HPI. ROS Other: All systems not noted in ROS Statement are negative. Past Medical History Past Medical History: Coronary Artery Disease (CAD), Chest Pain / Angina, Hyperlipidemia, Myocardial Infarction (RI), Osteoarthritis (OA) Additional Past Medical History / Comment(s): Pt denies COPD, arthritis in back and bilateral knees, benign colon polyps Last Myocardial Infarction Date:: 2004 History of Any Multi-Drug Resistant Organisms: None Reported Past Surgical History: Bowel Resection, Heart Catheterization With Stent Additional Past Surgical History / Comment(s): Cardiac stents x 3, bowel surgery for pinpoint hole in bowel, L knee arthroscopy, colonoscopy/benign polypectomies. Past Anesthesia/Blood Transfusion Reactions: No Reported Reaction Date of Last Stent Placement:: 2013 Past Psychological History: Bipolar, Depression, PTSD, Schizophrenia Smoking Status: Current every day smoker Past Alcohol Use History: Daily Past Drug Use History: Marijuana - Past Family History Father Family Medical History: Respiratory Disorder Additional Family Medical History / Comment(s): Father at age 64 from Black lung disease Mother Family Medical History: Hypertension, Myocardial Infarction (RI) Additional Family Medical History / Comment(s): Mother of an RI at 78yrs old. Brother(s) Family Medical History: Myocardial Infarction (RI) Additional Family Medical History / Comment(s): Patient has 10 brothers and 2 from myocardial infarction and had history of alcoholism. Sister(s) Additional Family Medical History / Comment(s): He has 7 sisters that are alive with no major medical problems. He has one son that has and one daughter that is alive and okay. General Exam Limitations: no limitations General appearance: alert, appears intoxicated, other (Smells of alcohol) Head exam: Present: atraumatic, normocephalic Eye exam: Present: PERRL, EOMI ENT exam: Present: mucous membranes moist Neck exam: Present: other (Trachea is in midline) Respiratory exam: Present: normal lung sounds bilaterally. Absent: respiratory distress, wheezes, rales, rhonchi, stridor, chest wall tenderness Cardiovascular Exam: Present: regular rate, normal rhythm, normal heart sounds, other (Normal radial pulses bilaterally) GI/Abdominal exam: Present: soft. Absent: distended, tenderness, guarding Extremities exam: Present: other (Negative Homans sign bilaterally). Absent: tenderness, pedal edema, calf tenderness Neurological exam: Present: alert, oriented X3. Absent: motor sensory deficit Psychiatric exam: Present: normal affect, normal mood Skin exam: Present: warm, dry, intact, normal color Course Vital Signs 04/15/20 19:01 Temperature 98.4 F Pulse Rate 78 Respiratory 19 Rate Blood Pressure 111/87 O2 Sat by Pulse 97 Oximetry - Reevaluation(s) Reevaluation #1: 04/15/20 21:37 Case, H&P, test results and ED/EMS management thus far were discussed with Dr. Baxter. She accepts hospital admission. She agrees with cardiology consultation. She has no further recommendations at this time. 04/15/20 21:42 Patient is resting and breathing comfortably at this time. EKG Findings - EKG Comments: EKG Findings:: Normal sinus rhythm, ventricular rate of 79 bpm, normal GA and QRS intervals, normal QT interval, normal axis, no ST or T-wave abnormality Medical Decision Making - Medical Decision Making Given the patient's history of coronary disease and reported chest pain, will admit the patient to the hospital for serial troponins and cardiac monitoring. Given the patient's right lower lobe infiltrate on chest x-ray and alcohol intoxication, will treat the patient for possible aspiration pneumonia with IV antibiotics. Patient's troponin is negative. Patient's labs are otherwise fairly unremarkable. - Lab Data Result diagrams: 04/15/20 19:37 04/15/20 19:37 Lab Results 04/15/20 04/15/20 04/15/20 Range/Units 19:37 19:37 19:37 WBC 6.7 (3.8-10.6) k/uL RBC 4.33 (4.30-5.90) m/uL Hgb 13.3 (13.0-17.5) gm/dL Hct 40.9 (39.0-53.0) % MCV 94.6 (80.0-100.0) fL MCH 30.8 (25.0-35.0) pg MCHC 32.6 (31.0-37.0) g/dL RDW 14.9 (11.5-15.5) % Plt Count 242 (150-450) k/uL MPV 8.1 Neutrophils % 49 % Lymphocytes % 41 % Monocytes % 6 % Eosinophils % 1 % Basophils % 1 % Neutrophils # 3.3 (1.3-7.7) k/uL Lymphocytes # 2.8 (1.0-4.8) k/uL Monocytes # 0.4 (0-1.0) k/uL Eosinophils # 0.0 (0-0.7) k/uL Basophils # 0.1 (0-0.2) k/uL PT 10.8 (9.0-12.0) sec INR 1.0 (<1.2) APTT 23.5 (22.0-30.0) sec Sodium 147 H (137-145) mmol/L Potassium 5.0 (3.5-5.1) mmol/L Chloride 108 H (98-107) mmol/L Carbon Dioxide 31 H (22-30) mmol/L Anion Gap 8 mmol/L BUN 10 (9-20) mg/dL Creatinine 0.72 (0.66-1.25) mg/dL Est GFR (CKD-EPI)AfAm >90 (>60 ml/min/1.73 sqM) Est GFR (CKD-EPI)NonAf >90 (>60 ml/min/1.73 sqM) Glucose 90 (74-99) mg/dL Calcium 9.9 (8.4-10.2) mg/dL Magnesium 2.3 (1.6-2.3) mg/dL Total Bilirubin 0.8 (0.2-1.3) mg/dL AST 42 (17-59) U/L ALT 18 (4-49) U/L Alkaline Phosphatase 59 (38-126) U/L Troponin I (0.000-0.034) ng/mL NT-Pro-B Natriuret Pep pg/mL Total Protein 8.8 H (6.3-8.2) g/dL Albumin 5.0 (3.5-5.0) g/dL Serum Alcohol 293 H* mg/dL 04/15/20 04/15/20 Range/Units 19:37 19:37 WBC (3.8-10.6) k/uL RBC (4.30-5.90) m/uL Hgb (13.0-17.5) gm/dL Hct (39.0-53.0) % MCV (80.0-100.0) fL MCH (25.0-35.0) pg MCHC (31.0-37.0) g/dL RDW (11.5-15.5) % Plt Count (150-450) k/uL MPV Neutrophils % % Lymphocytes % % Monocytes % % Eosinophils % % Basophils % % Neutrophils # (1.3-7.7) k/uL Lymphocytes # (1.0-4.8) k/uL Monocytes # (0-1.0) k/uL Eosinophils # (0-0.7) k/uL Basophils # (0-0.2) k/uL PT (9.0-12.0) sec INR (<1.2) APTT (22.0-30.0) sec Sodium (137-145) mmol/L Potassium (3.5-5.1) mmol/L Chloride (98-107) mmol/L Carbon Dioxide (22-30) mmol/L Anion Gap mmol/L BUN (9-20) mg/dL Creatinine (0.66-1.25) mg/dL Est GFR (CKD-EPI)AfAm (>60 ml/min/1.73 sqM) Est GFR (CKD-EPI)NonAf (>60 ml/min/1.73 sqM) Glucose (74-99) mg/dL Calcium (8.4-10.2) mg/dL Magnesium (1.6-2.3) mg/dL Total Bilirubin (0.2-1.3) mg/dL AST (17-59) U/L ALT (4-49) U/L Alkaline Phosphatase (38-126) U/L Troponin I 0.025 (0.000-0.034) ng/mL NT-Pro-B Natriuret Pep 47 pg/mL Total Protein (6.3-8.2) g/dL Albumin (3.5-5.0) g/dL Serum Alcohol mg/dL - Radiology Data Radiology results: report reviewed (Chest x-ray: Right lower lobe infiltrate) Disposition Clinical Impression: Chest pain, Alcohol intoxication Disposition: ADMITTED IP TO THIS HOSP Condition: Stable Is patient prescribed a controlled substance at d/c from ED?: No Referrals: Molly Deras MD [Primary Care Provider] - 1-2 days Time of Disposition: 21:40
[2020-04-15] MEDS ORDERED: SODIUM CHLORIDE 0.9% 1,000 ML IV ONE (19:53)
--- NOTE | 2020-04-15 19:58 | XR ---
EXAMINATION TYPE: XR chest 2V DATE OF EXAM: 04/15/2020 COMPARISON: 02/12/2020 HISTORY: Chest pain TECHNIQUE: Frontal and lateral views of the chest are obtained. FINDINGS: There has been interval development of ill-defined infiltrate in the right lower lobe. The heart and pulmonary vasculature are normal. No pleural effusion or pneumothorax. Mediastinum and hilum appear normal. The osseous structures are intact. IMPRESSION: Interval development of a right lower lobe infiltrate, most likely representing a pneum onic infiltrate. Clinical correlation follow-up to resolution is recommended.
[2020-04-15 20:02] LABS: Basophils # (A) 0.1 k/uL (0-0.2); Basophils % (A) 1 %; Eosinophils % (A) 1 %; HCT 40.9 % (39.0-53.0); HGB 13.3 gm/dL (13.0-17.5); Lymphocytes # (A) 2.8 k/uL (1.0-4.8); Lymphocytes % (A) 41 %; MCH 30.8 pg (25.0-35.0); MCHC 32.6 g/dL (31.0-37.0); MCV 94.6 fL (80.0-100.0); Mean Platelet Volume 8.1; Monocytes # (A) 0.4 k/uL (0-1.0); Monocytes % (A) 6 %; Neutrophils # (A) 3.3 k/uL (1.3-7.7); Neutrophils % (A) 49 %; Platelet Count 242 k/uL (150-450); RBC 4.33 m/uL (4.30-5.90); RDW 14.9 % (11.5-15.5); WBC 6.7 k/uL (3.8-10.6)
[2020-04-15 20:20] LABS: ALT 18 U/L (4-49); African American GFR (CKD) >90 (>60 ml/min/1.73 sqM); Anion Gap 8 mmol/L; Blood Urea Nitrogen 10 mg/dL (9-20); Calcium 9.9 mg/dL (8.4-10.2); Carbon Dioxide 31 mmol/L (22-30); Chloride 108 mmol/L (98-107); Glucose 90 mg/dL (74-99); Non-African American GFR(CKD) >90 (>60 ml/min/1.73 sqM); Sodium 147 mmol/L (137-145); Total Bilirubin 0.8 mg/dL (0.2-1.3)
[2020-04-15 20:45] LABS: Partial Thromboplastin Time 23.5 sec (22.0-30.0); Prothrombin Time 10.8 sec (9.0-12.0)
[2020-04-15 21:06] LABS: Alcohol 293 mg/dL
[2020-04-15 21:07] LABS: AST 42 U/L (17-59); Alkaline Phosphatase 59 U/L (38-126); Magnesium 2.3 mg/dL (1.6-2.3); Total Protein 8.8 g/dL (6.3-8.2)
[2020-04-15] MEDS ORDERED: PIPERACILLIN-TAZOBACTAM 3.375 GM in SODIUM CHLORIDE 0.9% 100 ML IVPB STA (21:37)
[2020-04-15] MEDS ORDERED: AZITHROMYCIN 500 MG in SODIUM CHLORIDE 0.9% 250 ML IVPB STA (21:37)
[2020-04-15] MEDS: SODIUM CHLORIDE 0.9% 1,000 ML IV SCH (23:48)
[2020-04-16 02:51] LABS: Basophils % (A) 1 %; Eosinophils % (A) 1 %; HCT 36.9 % (39.0-53.0); HGB 11.7 gm/dL (13.0-17.5); Lymphocytes # (A) 1.8 k/uL (1.0-4.8); Lymphocytes % (A) 38 %; MCH 30.6 pg (25.0-35.0); MCHC 31.7 g/dL (31.0-37.0); MCV 96.4 fL (80.0-100.0); Mean Platelet Volume 7.9; Monocytes # (A) 0.3 k/uL (0-1.0); Monocytes % (A) 6 %; Neutrophils # (A) 2.6 k/uL (1.3-7.7); Neutrophils % (A) 54 %; Platelet Count 212 k/uL (150-450); RBC 3.82 m/uL (4.30-5.90); RDW 15.2 % (11.5-15.5); WBC 4.8 k/uL (3.8-10.6)
[2020-04-16 03:57] LABS: ALT 33 U/L (4-49); AST 91 U/L (17-59); African American GFR (CKD) >90 (>60 ml/min/1.73 sqM); Alkaline Phosphatase 53 U/L (38-126); Anion Gap 13 mmol/L; Blood Urea Nitrogen 11 mg/dL (9-20); Calcium 9.1 mg/dL (8.4-10.2); Carbon Dioxide 17 mmol/L (22-30); Chloride 112 mmol/L (98-107); Glucose 180 mg/dL (74-99); Non-African American GFR(CKD) >90 (>60 ml/min/1.73 sqM); Sodium 142 mmol/L (137-145); Total Bilirubin 0.4 mg/dL (0.2-1.3); Total Protein 7.1 g/dL (6.3-8.2)
[2020-04-16] MEDS ORDERED: MORPHINE SULFATE 2 MG/ML SYRINGE IVP STA (05:04)
[2020-04-16] MEDS: SODIUM CHLORIDE 0.9% 1,000 ML IV SCH ×2 (08:44→18:00)
[2020-04-16] MEDS: ASPIRIN 81 MG PO SCH (08:44)
--- NOTE | 2020-04-16 10:38 | P.CRDCN ---
History of Present Illness History of present illness: HISTORY OF PRESENTING ILLNESS This is a pleasant 59-year-old male past medical history significant for coronary artery disease, dyslipidemia, mental illness, chronic nicotine dependence and alcohol use. He does not follow regularly in the office with a adult probation officer. We have been asked to see in consultation for chest pain. He presented to the hospital per EMS secondary to chest pain and alcohol intoxication. He complains that he has a heavy pressure sensation in the left precordial region that has been going on for the previous one week. The pain at times is worse with deep inspiration but not all the time. He states the pain has been constant with no alleviating factors. It does not radiate to the back, down the arm, into the neck or the jaw. He denies associated shortness of breath, dizziness, palpitations, nausea, vomiting or diaphoresis. He underwent cardiac catheterization in November 2019 revealing mostly patent stents in the mid to distal LAD with very mild in-stent restenosis noted, no intervention required at that time. Most recent echocardiogram performed November 2019 revealed preserved LV systolic function with ejection fraction 50-55%. DIAGNOSTICS EKG reveals sinus mechanism with no acute ST or T wave abnormalities noted.. Telemetry tracings indicate sinus mechanism. Chest xray right lower lobe infiltrate. Laboratory reviewed, WBC 4.8, hemoglobin 11.7, platelets 212, sodium 142, potassium 4.0, creatinine 0.8, magnesium 2.3, cardiac enzymes negative 3, proBNP 47 and alcohol level CCXCIII. Current cardiac medications include aspirin 81 mg daily and atorvastatin 40 mg daily. REVIEW OF SYSTEMS At the time of my exam: CONSTITUTIONAL: Denies fever or chills. CARDIOVASCULAR: Complains of chest pain. Denies shortness of breath, orthopnea, PND or palpitations. RESPIRATORY: Denies cough. GASTROINTESTINAL: Denies abdominal pain, diarrhea, constipation, nausea or vomiting. MUSCULOSKELETAL: Denies myalgias. NEUROLOGIC: Denies numbness, tingling, headacbe or weakness. ENDOCRINE: Denies fatigue, weight change, polydipsia or polyurina. GENITOURINARY: Denies burning, hematuria or urgency with micturation. HEMATOLOGIC: Denies history of anemia or bleeding. PHYSICAL EXAMINATION Blood pressure 122/72 heart rate 75 afebrile and maintaining oxygen saturation on room air. CONSTITUTIONAL: No apparent distress. HEENT: Head is normocephalic. Pupils are equal, round. Sclerae anicteric. Mucous membranes of the mouth are moist. No JVD. No carotid bruit. CHEST EXAMINATION: Lungs are clear to auscultation. No chest wall tenderness is noted on palpation or with deep breathing. HEART EXAMINATION: Regular rate and rhythm. S1, S2 heard. No murmurs, gallops or rub. ABDOMEN: Soft, nontender. Positive bowel sounds. EXTREMITIES: 2+ peripheral pulses, no lower extremity edema and no calf tenderness. NEUROLOGIC EXAMINATION: Patient is awake, alert and oriented x3. ASSESSMENT Chest pain Pulmonary infiltrate Alcohol intoxication Coronary artery disease status post PCI of the LAD Dyslipidemia Chronic nicotine dependence History of mental illness PLAN An acute coronary event has been ruled out. Recent catheterization reviewed, no intervention required at that time. Recommend ongoing medical therapy. Obtain echocardiogram to assess cardiac structure and function. Continue aspirin and atorvastatin as previously ordered. Recommend alcohol and tobacco cessation. Thank you kindly for this consultation. Nurse Practitioner note has been reviewed, I agree with a documented findings and plan of care. Patient was seen and examined. Past Medical History Past Medical History: Coronary Artery Disease (CAD), Chest Pain / Angina, Hyperlipidemia, Myocardial Infarction ([place]), Osteoarthritis (OA) Additional Past Medical History / Comment(s): Pt denies COPD, arthritis in back and bilateral knees, benign colon polyps Last Myocardial Infarction Date:: 2004 History of Any Multi-Drug Resistant Organisms: None Reported Past Surgical History: Bowel Resection, Heart Catheterization With Stent Additional Past Surgical History / Comment(s): Cardiac stents x 3, bowel surgery for pinpoint hole in bowel, L knee arthroscopy, colonoscopy/benign polypectomies. Past Anesthesia/Blood Transfusion Reactions: No Reported Reaction Date of Last Stent Placement:: 2013 Past Psychological History: Bipolar, Depression, PTSD, Schizophrenia Additional Psychological History / Comment(s): He states he goes to [facility]. Smoking Status: Current every day smoker Past Alcohol Use History: Daily Additional Past Alcohol Use History / Comment(s): Pt states he started smoking in 1994 a pack will last him a month. Past Drug Use History: Marijuana Additional Drug Use History / Comment(s): Pt states that he used MJ occasionally. Pt states that he has a history of cocaine, - Past Family History Father Family Medical History: Respiratory Disorder Additional Family Medical History / Comment(s): Father at age 64 from Black lung disease Mother Family Medical History: Hypertension, Myocardial Infarction ([place]) Additional Family Medical History / Comment(s): Mother of an MN at 78yrs old. Brother(s) Family Medical History: Myocardial Infarction (MN) Additional Family Medical History / Comment(s): Patient has 10 brothers and 2 from myocardial infarction and had history of alcoholism. Sister(s) Additional Family Medical History / Comment(s): He has 7 sisters that are alive with no major medical problems. He has one son that has and one daughter that is alive and okay. Medications and Allergies Home Medications Medication Instructions Recorded Confirmed Type Aspirin 81 mg PO DAILY 30 Days chew 03/23/20 04/15/20 Rx Atorvastatin [Lipitor] 40 mg PO HS 30 Days tab 03/23/20 04/15/20 Rx Folic Acid 1 mg PO DAILY@1200 30 Days tab 03/23/20 04/15/20 Rx Multivitamins, Thera [Multivitamin 1 each PO DAILY@1200 30 Days tab 03/23/20 04/15/20 Rx (formulary)] Pantoprazole [Protonix] 40 mg PO AC-BRKFST 30 Days 03/23/20 04/15/20 Rx tablet. Thiamine [Vitamin B-1] 100 mg PO DAILY@1200 30 Days tab 03/23/20 04/15/20 Rx Venlafaxine HCl ER [Effexor XR] 150 mg PO HS 30 Days cap.er.24h 03/23/20 04/15/20 Rx risperiDONE [RisperDAL] 1 mg PO BID 30 Days tab 03/23/20 04/15/20 Rx HYDROcodone/APAP 10-325MG [[place] 1 tab PO QID PRN 04/15/20 04/15/20 History 10-325] Allergies Allergy/AdvReac Type Severity Reaction Status Date / Time blueberry Allergy Rash/Hives Verified 02/13/20 03:37 nitroglycerin Allergy Swelling Verified 02/13/20 03:37 Physical Exam Vitals: Vital Signs Temp Pulse Pulse Resp BP BP Pulse Ox 04/16/20 08:41 97 04/16/20 07:00 98.8 F 75 18 122/72 97 04/16/20 02:00 98.0 F 72 15 102/57 100 04/15/20 23:42 98.0 F 89 19 105/75 99 04/15/20 19:01 98.4 F 78 19 111/87 97 Intake and Output 04/15/20 04/16/20 04/16/20 22:59 06:59 14:59 Other: Voiding Method Toilet Urinal # Voids 1 Weight 78.018 kg 78.018 kg Results 04/16/20 02:11 04/16/20 02:11 Cardiac Enzymes 04/15/20 04/15/20 04/15/20 Range/Units 19:37 19:37 23:15 AST 42 (17-59) U/L Troponin I 0.025 <0.012 (0.000-0.034) ng/mL 04/16/20 04/16/20 Range/Units 02:11 02:11 AST 91 H (17-59) U/L Troponin I <0.012 (0.000-0.034) ng/mL Coagulation 04/15/20 Range/Units 19:37 PT 10.8 (9.0-12.0) sec APTT 23.5 (22.0-30.0) sec CBC 04/15/20 04/16/20 Range/Units 19:37 02:11 WBC 6.7 4.8 (3.8-10.6) k/uL RBC 4.33 3.82 L (4.30-5.90) m/uL Hgb 13.3 11.7 L (13.0-17.5) gm/dL Hct 40.9 36.9 L (39.0-53.0) % Plt Count 242 212 (150-450) k/uL Comprehensive Metabolic Panel 04/15/20 04/16/20 Range/Units 19:37 02:11 Sodium 147 H 142 (137-145) mmol/L Potassium 5.0 4.0 (3.5-5.1) mmol/L Chloride 108 H 112 H (98-107) mmol/L Carbon Dioxide 31 H 17 L (22-30) mmol/L BUN 10 11 (9-20) mg/dL Creatinine 0.72 0.80 (0.66-1.25) mg/dL Glucose 90 180 H (74-99) mg/dL Calcium 9.9 9.1 (8.4-10.2) mg/dL AST 42 91 H (17-59) U/L ALT 18 33 (4-49) U/L Alkaline Phosphatase 59 53 (38-126) U/L Total Protein 8.8 H 7.1 (6.3-8.2) g/dL Albumin 5.0 4.0 (3.5-5.0) g/dL Current Medications Generic Name Dose Route Start Last Admin Trade Name Freq PRN Reason Stop Dose Admin Aspirin 81 mg 04/16/20 09:00 04/16/20 08:44 Aspirin 81 Mg PO 81 mg DAILY MORRIS Administration Atorvastatin Calcium 40 mg 04/16/20 21:00 Atorvastatin 40 Mg Tab PO HS MORRIS Sodium Chloride 1,000 mls @ 100 mls/hr 04/15/20 21:45 04/16/20 08:44 Saline 0.9% IV 100 mls/hr .Q10H MORRIS Administration Intake and Output 04/15/20 04/16/20 04/16/20 22:59 06:59 14:59 Other: Voiding Method Toilet Urinal # Voids 1 Weight 78.018 kg 78.018 kg 04/16/20 02:11 04/16/20 02:11
[2020-04-16] MEDS: HYDROcodone/APAP 10-325MG 1 EACH TAB PO PRN (11:18)
[2020-04-16] MEDS ORDERED: ALPRAZolam 0.25 MG TAB PO PRN (14:09)
[2020-04-16] MEDS ORDERED: LORazepam 2 MG/ML INJ IV PRN ×3 (14:09)
[2020-04-16] MEDS ORDERED: TEMAZEPAM 15 MG CAP PO PRN (14:09)
[2020-04-16] MEDS: HYDROmorphone 0.5 MG/0.5 ML SYRINGE IVP PRN ×2 (14:16→20:25)
[2020-04-16] MEDS: NICOTINE 14MG/24HR PATCH TRANSDERM SCH (14:18)
--- NOTE | 2020-04-16 15:12 | HP ---
HISTORY AND PHYSICAL DATE OF SERVICE: 04/16/2020 HISTORY OF PRESENT ILLNESS: This 59-year-old gentleman with a past medical history of multiple medical problems including CAD, chest pain, hyperlipidemia, history of DJD, history of COPD, bipolar, depression, PTSD, being followed by Dr. Deras in the outpatient setting admitted with chest pain to [facility]. The patient was apparently also intoxicated with alcohol also. The patient was picked up outside [facility]. The patient had some pain in the left side of the chest. Alcohol level was elevated. Cardiology evaluation in progress. Initial troponins are negative. Alcohol was found to be 293. There is no history of any fever or rigors. No history of headache, loss of consciousness, seizures at this time. Chest x-ray was done in the ER which showed maybe right lower lobe infiltrate. PAST MEDICAL HISTORY: History of CAD, history of chest pain, hyperlipidemia, myocardial infarction, DJD, history of bipolar, depression, PTSD, schizophrenia. MEDICATIONS: 1. Hydrocodone. 2. Risperdal. 3. Effexor. 4. Vitamin B1. 5. Protonix. 6. Multivitamin. 7. Folic acid. 8. Lipitor. 9. Aspirin. ALLERGIES: BLUEBERRY and NITROGLYCERIN. FAMILY HISTORY: History of black lung disease in father. SOCIAL HISTORY: History of smoking and alcohol. REVIEW OF SYSTEMS: ENT: No diminished hearing or diminished vision. CARDIOVASCULAR SYSTEM: As mentioned earlier. RESPIRATORY SYSTEM: As mentioned earlier. GI: No nausea or vomiting. : No dysuria. NERVOUS SYSTEM: No numbness or weakness. ALLERGY/IMMUNOLOGY: No asthma or hayfever. MUSCULOSKELETAL: As mentioned earlier. HEMATOLOGY/ONCOLOGY: No history of anemia. ENDOCRINE: No history of diabetes or hypothyroidism. CONSTITUTIONAL: As mentioned earlier. DERMATOLOGY: Negative. RHEUMATOLOGY: Negative. PSYCHIATRY: As mentioned earlier. PHYSICAL EXAMINATION: The patient is alert and oriented x3. Pulse 75, blood pressure 122/72, respiration 18, temperature 98.8, pulse ox 97% on room air. HEENT: Conjunctivae normal. NECK: No jugular venous distention. CARDIOVASCULAR: S1, S2 muffled. RESPIRATORY: Breath sounds are diminished at the bases. A few rhonchi. No crackles. ABDOMEN: Soft, nontender. No mass palpable. LEGS: No edema, no swelling. NERVOUS SYSTEM: Higher functions as mentioned earlier. Moves all 4 limbs. No focal deficits. LYMPHATICS: No lymphadenopathy of the neck, axillae or groin. SKIN: No ulcer, rash or bleeding. JOINTS: No active deforming arthropathy. LABS: WBC 4.8, hemoglobin 11.7. Sodium 142, potassium 4. ASSESSMENT: 1. Chest pain, possibly unstable angina, possibly musculoskeletal. 2. Anemia, normocytic anemia of chronic disease. 3. Alcohol intoxication, present on admission. 4. Possible right lower lobe pneumonia. 5. History of coronary artery disease. 6. History of hyperlipidemia. 7. History of myocardial infarction. 8. History of degenerative joint disease. 9. History of coronary artery disease, stent. 10.History of bipolar depression, posttraumatic stress disorder, schizophrenia. 11.History of nicotine dependence. 12.History of THC. RECOMMENDATIONS AND DISCUSSION: I recommend to continue current medications, continue symptomatic treatment. Otherwise D-dimer 0.58. I would recommend empiric antibiotics. Pain medications. Guarded prognosis because of multiple complex medical issues. Further recommendations to follow. A copy of dictation forwarded to Dr. Deras who is the primary physician. MMODL / IJN: [id number] /
[2020-04-16 19:33] LABS: Appearance,Urine Clear (Clear); Bilirubin,Urine Negative (Negative); Blood,Urine Negative (Negative); Color,Urine Light Yellow; Glucose,Urine (UA) Negative (Negative); Ketones,Urine Negative (Negative); Leukocyte Esterase,Urine Negative (Negative); Nitrite,Urine Negative (Negative); PH, Urine 5.5 (5.0-8.0); Protein,Urine Negative (Negative); Specific Gravity,Urine 1.004 (1.001-1.035); Urobilinogen,Urine <2.0 mg/dL (<2.0)
[2020-04-16] MEDS: risperiDONE 1 MG TAB PO SCH (21:52)
[2020-04-16] MEDS: VENLAFAXINE HCL ER 150 MG CAP PO SCH (21:52)
[2020-04-16] MEDS: ATORVASTATIN 40 MG TAB PO SCH (21:54)
[2020-04-16] MEDS: HEPARIN SODIUM,PORCINE 5,000 UNIT/ML 1 ML VIAL SQ SCH ×2 (21:54→21:56)
[2020-04-17] MEDS: SODIUM CHLORIDE 0.9% 1,000 ML IV SCH ×3 (05:11→16:43)
[2020-04-17] MEDS: PANTOPRAZOLE 40 MG TABLET PO SCH (07:47)
[2020-04-17] MEDS: HEPARIN SODIUM,PORCINE 5,000 UNIT/ML 1 ML VIAL SQ SCH ×2 (07:47→22:20)
[2020-04-17] MEDS: ASPIRIN 81 MG PO SCH (07:48)
[2020-04-17] MEDS: risperiDONE 1 MG TAB PO SCH ×2 (07:48→22:21)
[2020-04-17] MEDS: NICOTINE 14MG/24HR PATCH TRANSDERM SCH ×2 (07:48→10:07)
[2020-04-17] MEDS: HYDROmorphone 0.5 MG/0.5 ML SYRINGE IVP PRN ×3 (07:59→22:20)
--- NOTE | 2020-04-17 08:00 | ECHOF ---
Referral Reason:new chest pain MEASUREMENTS -------- HEIGHT: 175.3 cm WEIGHT: 78.0 kg BP: 123/71 RVIDd: 3.3 cm (< 3.3) IVSd: 1.4 cm (0.6 - 1.1) LVIDd: 4.5 cm (3.9 - 5.3) LVPWd: 1.6 cm (0.6 - 1.1) IVSs: 1.8 cm LVIDs: 2.8 cm LVPWs: 1.9 cm LAESV Index (A-L): 36.95 ml/m Ao Diam: 3.6 cm (2.0 - 3.7) AV Cusp: 2.6 cm (1.5 - 2.6) MV EXCURSION: 20.043 mm (> 18.000) MV EF SLOPE: 57 mm/s (70 - 150) EPSS: 0.9 cm MV E Abilio: 0.58 m/s MV DecT: 243 ms MV A Abilio: 0.72 m/s MV E/A Ratio: 0.80 RAP: 5.00 mmHg RVSP: 32.43 mmHg FINDINGS -------- Sinus rhythm. This was a technically adequate study. The left ventricular size is normal. There is moderate concentric left ventricular hypertrophy. O verall left ventricular systolic function is normal with, an EF between 55 - 60 %. The right ventricle is mildly enlarged. LA is moderately dilated 34-39 ml/m2 The right atrial size is normal. Interatrial and interventricular septum intact. The aortic valve is trileaflet, and appears structurally normal. No aortic stenosis or regurgitation. The mitral valve is normal. [id number] mitral regurgitation is present. The tricuspid valve appears structurally normal. Mild tricuspid regurgitation present. Right vent ricular systolic pressure is normal at < 35 mmHg. The right ventricular systolic pressure, as measu red by Doppler, is 32.43mmHg. There is no pulmonic regurgitation present. The aortic root size is normal. Normal inferior vena cava with normal inspiratory collapse consistent with estimated right atrial pre ssure of 5 mmHg. There is no pericardial effusion. CONCLUSIONS -------- 1. There is moderate concentric left ventricular hypertrophy. 2. Overall left ventricular systolic function is normal with, an EF between 55 - 60 %. 3. The right ventricle is mildly enlarged. 4. LA is moderately dilated 34-39 ml/m2 5. The aortic valve is trileaflet, and appears structurally normal. No aortic stenosis or regurgitati on. 6. [id number] mitral regurgitation is present. 7. Mild tricuspid regurgitation present. FLEX O WRITER OPERATOR: Deisy Lau RDCS
[2020-04-17] MEDS ORDERED: ISOSORBIDE MONONITRATE ER 30 MG TAB.ER.24H PO SCH (10:15)
--- NOTE | 2020-04-17 10:32 | P.PN ---
Subjective HISTORY OF PRESENTING ILLNESS This is a pleasant 59-year-old male past medical history significant for coronary artery disease, dyslipidemia, mental illness, chronic nicotine dependence and alcohol use. He does not follow regularly in the office with a motorcycle mechanic. He is seen and examined sitting up in bed in no acute distress. He continues to complain of chest pain. Echocardiogram obtained reveals preserved LV systolic function with EF 55-60%. Blood pressure 116/84 heart rate 98 afebrile and maintaining oxygen saturation on room air. PHYSICAL EXAMINATION CONSTITUTIONAL: No apparent distress. HEENT: Head is normocephalic. Pupils are equal, round. Sclerae anicteric. Mucous membranes of the mouth are moist. No JVD. No carotid bruit. CHEST EXAMINATION: Lungs are clear to auscultation. No chest wall tenderness is noted on palpation or with deep breathing. HEART EXAMINATION: Regular rate and rhythm. S1, S2 heard. No murmurs, gallops or rub. EXTREMITIES: 2+ peripheral pulses, no lower extremity edema and no calf te nderness. ASSESSMENT Chest pain Pulmonary infiltrate Alcohol intoxication Coronary artery disease status post PCI of the LAD Dyslipidemia Chronic nicotine dependence History of mental illness PLAN Add small dose of imdur 30 mg daily. Chest pain is atypical for angina, recent heart catheterization reviewed, no EKG changes and normal echocardiogram. Follow up in the office with Dr. Moody in 2 week. Nurse Practitioner note has been reviewed, I agree with a documented findings and plan of care. Patient was seen and examined. Objective - Vital Signs Vital signs: Vital Signs Temp 98.1 F 04/17/20 07:00 Pulse 98 04/17/20 07:00 Resp 16 04/17/20 07:00 BP 116/84 04/17/20 07:00 Pulse Ox 98 04/17/20 08:58 Intake & Output 04/16/20 04/17/20 04/17/20 18:59 06:59 18:59 Intake Total 200 118 Output Total 2 Balance 200 -2 118 Intake: Oral 200 118 Output: Stool 2 Other: Voiding Method Toilet Urinal # Voids 1 2 - Labs CBC & Chem 7: 04/16/20 02:11 04/16/20 02:11 Labs: Microbiology - Last 24 Hours (Table) 04/15/20 02:11 Blood Culture - Preliminary Blood No Growth after 24 hours 04/15/20 22:05 Blood Culture - Preliminary Blood No Growth after 24 hours
[2020-04-17] MEDS: FOLIC ACID 1 MG TAB PO SCH (13:51)
[2020-04-17] MEDS: THIAMINE 100 MG TAB PO SCH (13:51)
[2020-04-17] MEDS: MULTIVITAMINS, THERA 1 EACH TAB PO SCH (13:51)
--- NOTE | 2020-04-17 15:59 | PN ---
PROGRESS NOTE DATE OF SERVICE: 04/17/2020 This 59-year-old gentleman who was admitted with chest pain with possible unstable angina possibly musculoskeletal is being closely monitored. No chest pain. No palpitations. No fever. The patient has continued pain. The patient has significant EtOH also. No fever, no cough. PHYSICAL EXAMINATION: Alert and oriented x3. Pulse 98, blood pressure 116/84, respirations 16, temperature 98.1, pulse ox 98% on room air. HEENT: Conjunctivae normal. NECK: No jugular venous distention. CARDIOVASCULAR: S1, S2, muffled. RESPIRATORY: Breath sounds diminished at the bases. No rhonchi, no crackles. ABDOMEN: Soft, nontender. LEGS: No edema, no swelling. NERVOUS SYSTEM: No focal deficits. LABS: WBC 4.8, hemoglobin 11.7. CO2 is 17. UA noted. ASSESSMENT: 1. Chest pain, possible unstable angina, possibly musculoskeletal. 2. Anemia, normocytic anemia of chronic disease. 3. Alcohol intoxication, present on admission. 4. Right lower lobe pneumonia, possibly. 5. History of coronary artery disease. 6. Hyperlipidemia. 7. History of myocardial infarction. 8. History of degenerative joint disease. 9. History of coronary artery disease, stent. 10.History of bipolar depression, posttraumatic stress disorder, schizophrenia. 11.History of nicotine dependence. 12.History of THC. RECOMMENDATIONS AND DISCUSSION: Recommend to continue current medications, continue symptomatic treatment. Continue with treatment. Closely follow with Cardiology. Watch for alcohol withdrawals and delirium tremens. Prognosis guarded. Further recommendations to follow. MMODL / IJN: [id number] / MTDD
[2020-04-17] MEDS: ATORVASTATIN 40 MG TAB PO SCH (22:21)
[2020-04-17] MEDS: VENLAFAXINE HCL ER 150 MG CAP PO SCH (22:21)
[2020-04-18] MEDS: HYDROmorphone 0.5 MG/0.5 ML SYRINGE IVP PRN (04:25)
[2020-04-18] MEDS: PANTOPRAZOLE 40 MG TABLET PO SCH (07:53)
[2020-04-18] MEDS: ASPIRIN 81 MG PO SCH (09:28)
[2020-04-18] MEDS: HEPARIN SODIUM,PORCINE 5,000 UNIT/ML 1 ML VIAL SQ SCH ×2 (09:29→20:24)
[2020-04-18] MEDS: risperiDONE 1 MG TAB PO SCH ×2 (09:29→20:24)
[2020-04-18] MEDS: ISOSORBIDE MONONITRATE ER 30 MG TAB.ER.24H PO SCH (09:29)
[2020-04-18] MEDS: FOLIC ACID 1 MG TAB PO SCH (09:29)
[2020-04-18] MEDS: NICOTINE 14MG/24HR PATCH TRANSDERM SCH ×2 (09:30→09:36)
[2020-04-18] MEDS: SODIUM CHLORIDE 0.9% 1,000 ML IV SCH (09:39)
--- NOTE | 2020-04-18 10:19 | P.PN ---
Subjective HISTORY OF PRESENTING ILLNESS This is a pleasant 59-year-old male past medical history significant for coronary artery disease, dyslipidemia, mental illness, chronic nicotine dependence and alcohol use. He does not follow regularly in the office with a developer advocate. He is seen and examined sitting up in bed in no acute distress. He states his pain and breathing are improving but not entirely gone. Blood pressure 120/73 heart rate 63 afebrile and maintaining oxygen saturation on room air. Telemetry tracings reveal persistent SR with no acute arrhythmia or pauses. PHYSICAL EXAMINATION CONSTITUTIONAL: No apparent distress. HEENT: Head is normocephalic. Pupils are equal, round. Sclerae anicteric. Mucous membranes of the mouth are moist. No JVD. No carotid bruit. CHEST EXAMINATION: Lungs are clear to auscultation. No chest wall tenderness is noted on palpation or with deep breathing. HEART EXAMINATION: Regular rate and rhythm. S1, S2 heard. No murmurs, gallops or rub. EXTREMITIES: 2+ peripheral pulses, no lower extremity edema and no calf tenderness. ASSESSMENT Chest pain Pulmonary infiltrate Alcohol intoxication Coronary artery disease status post PCI of the LAD Dyslipidemia Chronic nicotine dependence History of mental illness PLAN Continue current medical regimen. Chest pain is atypical for angina, recent heart catheterization reviewed, no EKG changes and normal echocardiogram. We will follow along as needed, please call with further questions or concerns. Follow up in the office with Dr. Moody in 2 weeks. Nurse Practitioner note has been reviewed, I agree with a documented findings and plan of care. Patient was seen and examined. Objective - Vital Signs Vital signs: Vital Signs Temp 98.2 F 04/18/20 07:19 Pulse 64 04/18/20 07:19 Resp 18 04/18/20 07:19 BP 120/73 04/18/20 07:19 Pulse Ox 98 04/18/20 01:41 Intake & Output 04/17/20 04/18/20 04/18/20 18:59 06:59 18:59 Intake Total 118 Balance 118 Intake: Oral 118 Other: Voiding Method Toilet Toilet Urinal Urinal # Voids 0 2 - Labs CBC & Chem 7: 04/16/20 02:11 04/16/20 02:11 Labs: Microbiology - Last 24 Hours (Table) 04/15/20 02:11 Blood Culture - Preliminary Blood No Growth after 48 hours 04/15/20 22:05 Blood Culture - Preliminary Blood No Growth after 48 hours
[2020-04-18] MEDS: THIAMINE 100 MG TAB PO SCH (12:39)
[2020-04-18] MEDS: MULTIVITAMINS, THERA 1 EACH TAB PO SCH (12:39)
--- NOTE | 2020-04-18 13:40 | P.DS ---
Providers Date of admission: 04/17/20 10:26 Expected date of discharge: 04/18/20 Attending physician: Crow Baxter MD Consults: 04/15/20 21:37 Consult Physician Urgent Consulting Provider: Primo Moody Consult Reason/Comments: chest pain Do you want consulting provider notified?: Yes Primary care physician: Braeden Barnes Hospital Course: Final diagnosis Chest pain, possible unstable angina, possibly musculoskeletal Anemia, normocytic anemia of chronic disease Alcohol intoxication, present on admission Right lower lobe pneumonia, possibly History of coronary artery disease Hyperlipidemia History of myocardial infarction History of degenerative joint disease history of coronary artery disease with stents history of bipolar depression, posttraumatic stress disorder, schizophrenia history of nicotine dependence History of THC Discharge disposition Patient is being discharged in a stable condition with guarded prognosis to home. Patient will follow-up with Dr. Deras in the outpatient setting upon discharge. Patient will also need cardiology Dr. Moody follow-up outpatient. Total time taken is greater than 35 minutes. Hospital course This is a 59-year-old male who was recently admitted with chest pain with possible unstable angina, possibly musculoskeletal and is being closely monitored. Patient was also found to have alcohol intoxication present on admi ssion. Patient was maintained on CIWA protocol and was evaluated by cardiology and will follow-up outpatient with cardiology in 1-2 weeks. 04/18/2020 Patient is seen and evaluated in follow-up stating he is weak and had physical therapy evaluate the patient and is noted with a steady gait and able to ambulate and perform ADLs with no difficulty. Patient is maintained on CIWA protocol although has not had any signs of withdrawal and has not required any Ativan in 24 hours. Cardiology also evaluated the patient for chest pain and has cleared the patient medically. Patient is refusing discharge stating he is not ready to be sent home. Patient is contacting Medicare to appeal the discharge. Currently no reports of chest pain, shortness of breath, or palpitations. Patient is afebrile. No reports of nausea or vomiting and patient is tolerating diet. Patient is being discharged today. Guarded prognosis. On exam vital signs are stable. Respiratory system shows diminished breath so unds at the bases with no wheezing or rhonchi noted. Abdomen is soft and nontender. Nervous system shows no focal deficits. Please refer to medication reconciliation sheet for a list of medications. Patient Condition at Discharge: Stable Plan - Discharge Summary Discharge Rx Participant: Yes New Discharge Prescriptions: New Isosorbide Mononitrate ER [Imdur] 30 mg PO DAILY 30 Days #30 tab.er.24h Continue Aspirin 81 mg PO DAILY 30 Days chew Venlafaxine HCl ER [Effexor XR] 150 mg PO HS 30 Days cap.er.24h Folic Acid 1 mg PO DAILY@1200 30 Days tab Atorvastatin [Lipitor] 40 mg PO HS 30 Days tab Multivitamins, Thera [Multivitamin (formulary)] 1 each PO DAILY@1200 30 Days tab Pantoprazole [Protonix] 40 mg PO AC-BRKFST 30 Days tablet. risperiDONE [RisperDAL] 1 mg PO BID 30 Days tab Thiamine [Vitamin B-1] 100 mg PO DAILY@1200 30 Days tab HYDROcodone/APAP 10-325MG [[place] 10-325] 1 tab PO QID PRN PRN Reason: Pain Discharge Medication List Aspirin 81 mg PO DAILY 30 Days chew 03/23/20 [Rx] Atorvastatin [Lipitor] 40 mg PO HS 30 Days tab 03/23/20 [Rx] Folic Acid 1 mg PO DAILY@1200 30 Days tab 03/23/20 [Rx] Multivitamins, Thera [Multivitamin (formulary)] 1 each PO DAILY@1200 30 Days tab 03/23/20 [Rx] Pantoprazole [Protonix] 40 mg PO AC-BRKFST 30 Days tablet. 03/23/20 [Rx] Thiamine [Vitamin B-1] 100 mg PO DAILY@1200 30 Days tab 03/23/20 [Rx] Venlafaxine HCl ER [Effexor XR] 150 mg PO HS 30 Days cap.er.24h 03/23/20 [Rx] risperiDONE [RisperDAL] 1 mg PO BID 30 Days tab 03/23/20 [Rx] HYDROcodone/APAP 10-325MG [[place] 10-325] 1 tab PO QID PRN 04/15/20 [History] Isosorbide Mononitrate ER [Imdur] 30 mg PO DAILY 30 Days #30 tab.er.24h 04/18/20 [Rx] Follow up Appointment(s)/Referral(s): Molly Deras MD [Primary Care Provider] - 1-2 days Primo Moody MD [STAFF PHYSICIAN] - 2 Weeks Patient Instructions/Handouts: Chest Pain (DC), Alcohol Intoxication (DC) Activity/Diet/Wound Care/Special Instructions: Activity Limited until follow-up Follow-up with primary care provider upon discharge continue current diet and advance slowly as tolerated follow up cardiology outpatient Avoid alcohol intake Discharge Disposition: HOME SELF-CARE
[2020-04-18] MEDS: HYDROcodone/APAP 10-325MG 1 EACH TAB PO PRN ×2 (15:53→20:57)
[2020-04-18] MEDS: ATORVASTATIN 40 MG TAB PO SCH (20:24)
[2020-04-18] MEDS: VENLAFAXINE HCL ER 150 MG CAP PO SCH (20:24)
[2020-04-19] MEDS: PANTOPRAZOLE 40 MG TABLET PO SCH (07:12)
[2020-04-19] MEDS: ISOSORBIDE MONONITRATE ER 30 MG TAB.ER.24H PO SCH (08:07)
[2020-04-19] MEDS: ASPIRIN 81 MG PO SCH (08:07)
[2020-04-19] MEDS: HEPARIN SODIUM,PORCINE 5,000 UNIT/ML 1 ML VIAL SQ SCH ×2 (08:07→20:42)
[2020-04-19] MEDS: risperiDONE 1 MG TAB PO SCH ×2 (08:08→20:41)
[2020-04-19] MEDS: NICOTINE 14MG/24HR PATCH TRANSDERM SCH (08:08)
[2020-04-19] MEDS: FOLIC ACID 1 MG TAB PO SCH (12:31)
[2020-04-19] MEDS: THIAMINE 100 MG TAB PO SCH (12:31)
[2020-04-19] MEDS: MULTIVITAMINS, THERA 1 EACH TAB PO SCH (12:31)
[2020-04-19] MEDS: HYDROcodone/APAP 10-325MG 1 EACH TAB PO PRN ×2 (12:38→20:41)
--- NOTE | 2020-04-19 13:38 | P.PN ---
Subjective Progress Note Date: 04/19/20 This is a 59-year-old male who was recently admitted with chest pain with possible unstable angina, possibly musculoskeletal and is being closely monitored. Patient was seen and evaluated by cardiology and had recently undergone cardiac catheterization and has been cleared by cardiology. Most recent echo showing left ventricular systolic function is normal with an EF between 55 and 60% with some mild to moderate mitral and mild tricuspid regurgitation present. Patient had recently underwent cardiac catheterization in November of last year and is followed by cardiology outpatient. Patient's serial troponins have been negative. Vital signs are stable. Labs within normal limits. Patient currently denies any chest pain, shortness of breath, or palpitations. Patient also came in with acute alcohol intoxication and was maintained on CIWA protocol although has not required any Ativan in over 2 days. Patient is not actively withdrawing at this time. Review of systems: Constitutional: reports fatigue and overall "not feeling well" Cardiovascular: No reports of chest pain or palpitations Respiratory: No reports of shortness of breath or cough GI: No reports of nausea, vomiting, or diarrhea, reports lack of appetite : No reports of dysuria or retention Neurovascular: RePorts weakness All medications have been reviewed Objective - Vital Signs Vital signs: Vital Signs Temp 97.7 F 04/19/20 07:08 Pulse 74 04/19/20 07:08 Resp 16 04/19/20 07:08 BP 118/73 04/19/20 07:08 Pulse Ox 97 04/19/20 07:08 Intake & Output 04/18/20 04/19/20 04/19/20 18:59 06:59 18:59 Intake Total 300 Balance 300 Intake: Oral 300 Other: Voiding Method Toilet Toilet Toilet Urinal Urinal Urinal # Voids 1 - Exam Gen: This is a 59-year-old male asleep although easily arousable alert and oriented 3, well-developed, well-nourished. HEENT: Head is atraumatic, normocephalic. Pupils equal, round. Sclerae is anicteric. NECK: Supple. No JVD. No lymphadenopathy. No thyromegaly. LUNGS: Clear to auscultation. No wheezes or rhonchi. No intercostal retractions. HEART: Regular rate and rhythm. No murmur. ABDOMEN: Soft. Bowel sounds are present. No masses. No tenderness. EXTREMITIES: No pedal edema. No calf tenderness. NEUROLOGICAL: Patient is awake, alert and oriented x3. No focal deficits noted. - Labs CBC & Chem 7: 04/16/20 02:11 04/16/20 02:11 Labs: Microbiology - Last 24 Hours (Table) 04/15/20 02:11 Blood Culture - Preliminary Blood No Growth after 72 hours 04/15/20 22:05 Blood Culture - Preliminary Blood No Growth after 72 hours Assessment and Plan Assessment: Chest pain, possible unstable angina, possibly musculoskeletal Anemia, normocytic anemia of chronic disease Alcohol intoxication, present on admission Right lower lobe pneumonia, possibly History of coronary artery disease Hyperlipidemia History of myocardial infarction History of degenerative joint disease history of coronary artery disease with stents history of bipolar depression, posttraumatic stress disorder, schizophrenia history of nicotine dependence History of THC Plan: Patient has been discharged although is appealing discharge and was reviewed by insurance and deemed appropriate for discharge although patient made another appeal and reconsideration to refuse another discharge. Medical records currently being reviewed. Will continue to monitor closely and await further instruction. Patient was maintained on CIWA protocol although has not required any Ativan for the last 2 days. Patient continues to have generalized discomfort although denies chest pain shortness of breath or palpitations. Patient has not been eating his meals per nursing staff and encourage the patient to eat and increase activity as tolerated. Patient has been lying in bed and sleeping most of the day.
[2020-04-19] MEDS: ATORVASTATIN 40 MG TAB PO SCH (20:41)
[2020-04-19] MEDS: VENLAFAXINE HCL ER 150 MG CAP PO SCH (20:42)
[2020-04-20 03:50] VITALS: RESP 16
[2020-04-20] MEDS: risperiDONE 1 MG TAB PO SCH ×2 (07:28→22:32)
[2020-04-20] MEDS: ASPIRIN 81 MG PO SCH (07:29)
[2020-04-20] MEDS: PANTOPRAZOLE 40 MG TABLET PO SCH (07:29)
[2020-04-20] MEDS: ISOSORBIDE MONONITRATE ER 30 MG TAB.ER.24H PO SCH (07:29)
[2020-04-20] MEDS: HEPARIN SODIUM,PORCINE 5,000 UNIT/ML 1 ML VIAL SQ SCH ×2 (07:29→22:32)
[2020-04-20] MEDS: HYDROcodone/APAP 10-325MG 1 EACH TAB PO PRN ×2 (07:29→22:32)
[2020-04-20] MEDS: NICOTINE 14MG/24HR PATCH TRANSDERM SCH (07:30)
[2020-04-20] MEDS: THIAMINE 100 MG TAB PO SCH (11:19)
[2020-04-20] MEDS: FOLIC ACID 1 MG TAB PO SCH (11:19)
[2020-04-20] MEDS: MULTIVITAMINS, THERA 1 EACH TAB PO SCH (11:19)
--- NOTE | 2020-04-20 11:36 | P.DS ---
Providers Date of admission: 04/17/20 10:26 Expected date of discharge: 04/20/20 Attending physician: Crow Baxter MD Consults: 04/15/20 21:37 Consult Physician Urgent Consulting Provider: Primo Moody Consult Reason/Comments: chest pain Do you want consulting provider notified?: Yes Primary care physician: Braeden Barnes Hospital Course: Final diagnosis Chest pain, possible unstable angina, possibly musculoskeletal Anemia, normocytic anemia of chronic disease Alcohol intoxication, present on admission Right lower lobe pneumonia, possibly History of coronary artery disease Hyperlipidemia History of myocardial infarction History of degenerative joint disease history of coronary artery disease with stents history of bipolar depression, posttraumatic stress disorder, schizophrenia history of nicotine dependence History of THC Discharge disposition Patient is being discharged in a stable condition with guarded prognosis to home. Patient will follow-up with Dr. Deras in the outpatient setting upon discharge. Patient will also need cardiology Dr. Moody follow-up outpatient. Total time taken is greater than 35 minutes. Hospital course This is a 59-year-old male who was recently admitted with chest pain with possible unstable angina, possibly musculoskeletal and is being closely monitored. Patient was also found to have alcohol intoxication present on ad mission. Patient was maintained on CIWA protocol and was evaluated by cardiology and will follow-up outpatient with cardiology in 1-2 weeks. 04/18/2020 Patient is seen and evaluated in follow-up stating he is weak and had physical therapy evaluate the patient and is noted with a steady gait and able to ambulate and perform ADLs with no difficulty. Patient is maintained on CIWA protocol although has not had any signs of withdrawal and has not required any Ativan in 24 hours. Cardiology also evaluated the patient for chest pain and has cleared the patient medically. Patient is refusing discharge stating he is not ready to be sent home. Patient is contacting Medicare to appeal the discharge. Currently no reports of chest pain, shortness of breath, or palpitations. Patient is afebrile. No reports of nausea or vomiting and patient is tolerating diet. Patient is being discharged today. Guarded prognosis. 04/19/2020 This is a 59-year-old male who was recently admitted with chest pain with possible unstable angina, possibly musculoskeletal and is being closely monitored. Patient was seen and evaluated by cardiology and had recently undergone cardiac catheterization and has been cleared by cardiology. Most recent echo showing left ventricular systolic function is normal with an EF between 55 and 60% with some mild to moderate mitral and mild tricuspid regurgitation present. Patient had recently underwent cardiac catheterization in November of last year and is followed by cardiology outpatient. Patient's serial troponins have been negative. Vital signs are stable. Labs within normal limits. Patient currently denies any chest pain, shortness of breath, or palpitations. Patient also came in with acute alcohol intoxication and was maintained on CIWA protocol although has not required any Ativan in over 2 days. Patient is not actively withdrawing at this time. 04/20/2020 Patient has filed for another appeal to his previous discharge and currently waiting determination through Medicare and his insurance for discharge. Patient denies any overnight acute issues. Patient is afebrile. Vital signs are stable. No reports of chest pain, palpitations, or shortness of breath noted. Patient is tolerating diet with no reports of nausea or vomiting although eating very little. Patient is appropriate for discharge and is medically stable to be discharged home. On exam vital signs are stable. Temp is 97.9F, pulse is 66, respirations are 16, blood pressure is 121/77, oxygen saturation is 98% on room air. Respiratory system shows diminished breath sounds at the bases with no wheezing or rhonchi noted. Abdomen is soft and nontender. Nervous system shows no focal deficits. Please refer to medication reconciliation sheet for a list of medications. Patient Condition at Discharge: Stable Plan - Discharge Summary Discharge Rx Participant: Yes New Discharge Prescriptions: New Isosorbide Mononitrate ER [Imdur] 30 mg PO DAILY 30 Days #30 tab.er.24h Continue Aspirin 81 mg PO DAILY 30 Days chew Venlafaxine HCl ER [Effexor XR] 150 mg PO HS 30 Days cap.er.24h Folic Acid 1 mg PO DAILY@1200 30 Days tab Atorvastatin [Lipitor] 40 mg PO HS 30 Days tab Multivitamins, Thera [Multivitamin (formulary)] 1 each PO DAILY@1200 30 Days tab Pantoprazole [Protonix] 40 mg PO AC-BRKFST 30 Days tablet. risperiDONE [RisperDAL] 1 mg PO BID 30 Days tab Thiamine [Vitamin B-1] 100 mg PO DAILY@1200 30 Days tab HYDROcodone/APAP 10-325MG [[place] 10-325] 1 tab PO QID PRN PRN Reason: Pain Discharge Medication List Aspirin 81 mg PO DAILY 30 Days chew 03/23/20 [Rx] Atorvastatin [Lipitor] 40 mg PO HS 30 Days tab 03/23/20 [Rx] Folic Acid 1 mg PO DAILY@1200 30 Days tab 03/23/20 [Rx] Multivitamins, Thera [Multivitamin (formulary)] 1 each PO DAILY@1200 30 Days tab 03/23/20 [Rx] Pantoprazole [Protonix] 40 mg PO AC-BRKFST 30 Days tablet.dr 03/23/20 [Rx] Thiamine [Vitamin B-1] 100 mg PO DAILY@1200 30 Days tab 03/23/20 [Rx] Venlafaxine HCl ER [Effexor XR] 150 mg PO HS 30 Days cap.er.24h 03/23/20 [Rx] risperiDONE [RisperDAL] 1 mg PO BID 30 Days tab 03/23/20 [Rx] HYDROcodone/APAP 10-325MG [[place] 10-325] 1 tab PO QID PRN 04/15/20 [History] Isosorbide Mononitrate ER [Imdur] 30 mg PO DAILY 30 Days #30 tab.er.24h 04/18/20 [Rx] Follow up Appointment(s)/Referral(s): Molly Deras MD [Primary Care Provider] - 1-2 days Primo Moody MD [STAFF PHYSICIAN] - 2 Weeks Patient Instructions/Handouts: Chest Pain (DC), Alcohol Intoxication (DC) Activity/Diet/Wound Care/Special Instructions: Activity Limited until follow-up Follow-up with primary care provider upon discharge continue current diet and advance slowly as tolerated follow up cardiology outpatient Avoid alcohol intake Discharge Disposition: HOME SELF-CARE
[2020-04-20 12:44] VITALS: BMI 25.4
[2020-04-20] MEDS: ATORVASTATIN 40 MG TAB PO SCH (22:31)
[2020-04-20] MEDS: VENLAFAXINE HCL ER 150 MG CAP PO SCH (22:32)
[2020-04-21] MEDS: NICOTINE 14MG/24HR PATCH TRANSDERM SCH (07:22)
[2020-04-21] MEDS: ASPIRIN 81 MG PO SCH (07:25)
[2020-04-21] MEDS: PANTOPRAZOLE 40 MG TABLET PO SCH (07:25)
[2020-04-21] MEDS: HYDROcodone/APAP 10-325MG 1 EACH TAB PO PRN (07:25)
[2020-04-21] MEDS: ISOSORBIDE MONONITRATE ER 30 MG TAB.ER.24H PO SCH (07:25)
[2020-04-21] MEDS: risperiDONE 1 MG TAB PO SCH (07:25)
[2020-04-21] MEDS: HEPARIN SODIUM,PORCINE 5,000 UNIT/ML 1 ML VIAL SQ SCH (07:25)
[2020-04-21 07:30] VITALS: BP 106/69; PULSE 74; TEMP 97.7
--- NOTE | 2020-04-21 14:48 | P.DS ---
Providers Date of admission: 04/17/20 10:26 Attending physician: Crow Baxter MD Consults: 04/15/20 21:37 Consult Physician Urgent Consulting Provider: Primo Moody Consult Reason/Comments: chest pain Do you want consulting provider notified?: Yes [facility] Course: Please refer to discharge summary from my nurse practitioner from yesterday for further details since patient ended up staying today I did see and examine the patient. PHYSICAL EXAMINATION: GENERAL: The patient is alert and oriented x3, not in any acute distress. Well developed, well nourished. HEENT: Pupils are round and equally reacting to light. EOMI. No scleral icterus. No conjunctival pallor. Normocephalic, atraumatic. No pharyngeal erythema. No thyromegaly. CARDIOVASCULAR: S1 and S2 present. No murmurs, rubs, or gallops. PULMONARY: Chest is clear to auscultation, no wheezing or crackles. ABDOMEN: Soft, nontender, nondistended, normoactive bowel sounds. No palpable organomegaly. MUSCULOSKELETAL: No joint swelling or deformity. EXTREMITIES: No cyanosis, clubbing, or pedal edema. NEUROLOGICAL: Gross neurological examination did not reveal any focal deficits. SKIN: No rashes. Patient Condition at Discharge: Stable Plan - Discharge Summary Discharge Rx Participant: Yes New Discharge Prescriptions: New Isosorbide Mononitrate ER [Imdur] 30 mg PO DAILY 30 Days #30 tab.er.24h Continue Aspirin 81 mg PO DAILY 30 Days chew Venlafaxine HCl ER [Effexor XR] 150 mg PO HS 30 Days cap.er.24h Folic Acid 1 mg PO DAILY@1200 30 Days tab Atorvastatin [Lipitor] 40 mg PO HS 30 Days tab Multivitamins, Thera [Multivitamin (formulary)] 1 each PO DAILY@1200 30 Days tab Pantoprazole [Protonix] 40 mg PO AC-BRKFST 30 Days tablet. risperiDONE [RisperDAL] 1 mg PO BID 30 Days tab Thiamine [Vitamin B-1] 100 mg PO DAILY@1200 30 Days tab HYDROcodone/APAP 10-325MG [[place] 10-325] 1 tab PO QID PRN PRN Reason: Pain Discharge Medication List Aspirin 81 mg PO DAILY 30 Days chew 03/23/20 [Rx] Atorvastatin [Lipitor] 40 mg PO HS 30 Days tab 03/23/20 [Rx] Folic Acid 1 mg PO DAILY@1200 30 Days tab 03/23/20 [Rx] Multivitamins, Thera [Multivitamin (formulary)] 1 each PO DAILY@1200 30 Days tab 03/23/20 [Rx] Pantoprazole [Protonix] 40 mg PO AC-BRKFST 30 Days tablet.dr 03/23/20 [Rx] Thiamine [Vitamin B-1] 100 mg PO DAILY@1200 30 Days tab 03/23/20 [Rx] Venlafaxine HCl ER [Effexor XR] 150 mg PO HS 30 Days cap.er.24h 03/23/20 [Rx] risperiDONE [RisperDAL] 1 mg PO BID 30 Days tab 03/23/20 [Rx] HYDROcodone/APAP 10-325MG [[place] 10-325] 1 tab PO QID PRN 04/15/20 [History] Isosorbide Mononitrate ER [Imdur] 30 mg PO DAILY 30 Days #30 tab.er.24h 04/18/20 [Rx] Follow up Appointment(s)/Referral(s): Molly Deras MD [Primary Care Provider] - 1-2 days Primo Moody MD [STAFF PHYSICIAN] - 2 Weeks Patient Instructions/Handouts: Chest Pain (DC), Alcohol Intoxication (DC) Activity/Diet/Wound Care/Special Instructions: Activity Limited until follow-up Follow-up with primary care provider upon discharge continue current diet and advance slowly as tolerated follow up cardiology outpatient Avoid alcohol intake Discharge Disposition: HOME SELF-CARE
== END 2020-04-21 11:27 | disposition home or self-care (01) | DRG 302 ==
LOC: EC 19:00 → 6NMEDSUR 21:41 → OBSVTOIN 04-17 10:26
PROVIDERS: ADMIT Internal Medicine; ATTEND Internal Medicine
DX: I25.110 Atherosclerotic heart disease of native coronary artery with unstable angina pectoris (principal); J18.9 Pneumonia, unspecified organism; F10.129 Alcohol abuse with intoxication, unspecified; F17.200 Nicotine dependence, unspecified, uncomplicated; Z95.5 Presence of coronary angioplasty implant and graft; E78.5 Hyperlipidemia, unspecified; M19.90 Unspecified osteoarthritis, unspecified site; J44.9 Chronic obstructive pulmonary disease, unspecified; F31.9 Bipolar disorder, unspecified; F43.10 Post-traumatic stress disorder, unspecified; F20.9 Schizophrenia, unspecified; D63.8 Anemia in other chronic diseases classified elsewhere; I25.2 Old myocardial infarction; Z79.82 Long term (current) use of aspirin; Z79.899 Other long term (current) drug therapy; Z82.49 Family history of ischemic heart disease and other diseases of the circulatory system
CPT/HCPCS: 36415; 71046; 80053; 80320; 81003; 83735; 83880; 84484; 85025; 85379; 85610; 85730; 87040; 87635; 93005; 93306; 94760

== ENCOUNTER 2020-07-21 23:55 | Emergency (ER) | payer MEDICARE, OTHER ==
[2020-07-22 00:03] VITALS: TEMP 97
--- NOTE | 2020-07-22 00:31 | ED ---
Chest Pain HPI - General Chief Complaint: Chest Pain Stated Complaint: Chest Pain Time Seen by Provider: 07/22/20 00:15 Source: patient, EMS Mode of arrival: EMS Limitations: no limitations - History of Present Illness MD Complaint: chest pain -: hour(s) Onset: after eating Pain Location: left chest Pain Radiation: none Severity: severe Quality: heaviness Consistency: intermittent Improves With: nothing Worsens With: nothing Treatments Prior to Arrival: none - Related Data Home Medications Medication Instructions Recorded Confirmed HYDROcodone/APAP 10-325MG [[place] 1 tab PO QID PRN 04/15/20 04/15/20 10-325] Previous Rx's Medication Instructions Recorded Aspirin 81 mg PO DAILY 30 Days chew 03/23/20 Atorvastatin [Lipitor] 40 mg PO HS 30 Days tab 03/23/20 Folic Acid 1 mg PO DAILY@1200 30 Days tab 03/23/20 Multivitamins, Thera [Multivitamin 1 each PO DAILY@1200 30 Days tab 03/23/20 (formulary)] Pantoprazole [Protonix] 40 mg PO AC-BRKFST 30 Days 03/23/20 tablet. Thiamine [Vitamin B-1] 100 mg PO DAILY@1200 30 Days tab 03/23/20 Venlafaxine HCl ER [Effexor XR] 150 mg PO HS 30 Days cap.er.24h 03/23/20 risperiDONE [RisperDAL] 1 mg PO BID 30 Days tab 03/23/20 Isosorbide Mononitrate ER [Imdur] 30 mg PO DAILY 30 Days #30 04/18/20 tab.er.24h Allergies Allergy/AdvReac Type Severity Reaction Status Date / Time blueberry Allergy Rash/Hives Verified 02/13/20 03:37 nitroglycerin Allergy Swelling Verified 02/13/20 03:37 Review of Systems ROS Statement: Those systems with pertinent positive or pertinent negative responses have been documented in the HPI. ROS Other: All systems not noted in ROS Statement are negative. Constitutional: Denies: fever, chills Respiratory: Denies: cough, dyspnea Cardiovascular: Reports: as per HPI, chest pain. Denies: palpitations, dyspnea on exertion, orthopnea, edema, syncope Gastrointestinal: Denies: abdominal pain, nausea, vomiting Genitourinary: Denies: dysuria, hematuria Musculoskeletal: Denies: back pain Skin: Denies: rash Neurological: Denies: headache, weakness, numbness EKG Findings - EKG Results: EKG: interpreted by ERMD, sinus rhythm (Rate 67 bpm), normal axis, normal QRS, normal ST/T Past Medical History Past Medical History: Coronary Artery Disease (CAD), Chest Pain / Angina, Hyperlipidemia, Myocardial Infarction (NH), Osteoarthritis (OA) Additional Past Medical History / Comment(s): Pt denies COPD, arthritis in back and bilateral knees, benign colon polyps Last Myocardial Infarction Date:: 2004 History of Any Multi-Drug Resistant Organisms: None Reported Past Surgical History: Bowel Resection, Heart Catheterization With Stent Additional Past Surgical History / Comment(s): Cardiac stents x 3, bowel surgery for pinpoint hole in bowel, L knee arthroscopy, colonoscopy/benign polypectomies. Past Anesthesia/Blood Transfusion Reactions: No Reported Reaction Date of Last Stent Placement:: 2013 Past Psychological History: Bipolar, Depression, PTSD, Schizophrenia Smoking Status: Current every day smoker Past Alcohol Use History: Daily Past Drug Use History: None Reported - Past Family History Father Family Medical History: Respiratory Disorder Additional Family Medical History / Comment(s): Father at age 64 from Black lung disease Mother Family Medical History: Hypertension, Myocardial Infarction (NH) Additional Family Medical History / Comment(s): Mother of an NH at 78yrs old. Brother(s) Family Medical History: Myocardial Infarction (NH) Additional Family Medical History / Comment(s): Patient has 10 brothers and 2 from myocardial infarction and had history of alcoholism. Sister(s) Additional Family Medical History / Comment(s): He has 7 sisters that are alive with no major medical problems. He has one son that has and one daughter that is alive and okay. General Exam Limitations: no limitations General appearance: alert, in no apparent distress Head exam: Present: atraumatic, normocephalic Eye exam: Present: normal appearance. Absent: scleral icterus, conjunctival injection ENT exam: Present: normal oropharynx Neck exam: Present: normal inspection Respiratory exam: Present: normal lung sounds bilaterally. Absent: respiratory distress, wheezes, rales, rhonchi, stridor, chest wall tenderness Cardiovascular Exam: Present: regular rate, normal rhythm, normal heart sounds. Absent: systolic murmur, diastolic murmur, rubs, gallop GI/Abdominal exam: Present: soft. Absent: distended, tenderness, guarding, rebound, rigid, mass, pulsatile mass, hernia Course Vital Signs 07/21/20 07/22/20 07/22/20 23:57 01:47 02:30 Temperature 97 F L Pulse Rate 67 66 64 Respiratory 16 18 18 Rate Blood Pressure 114/92 108/68 110/91 O2 Sat by Pulse 98 98 97 Oximetry 07/22/20 04:13 Temperature Pulse Rate 54 L Respiratory 16 Rate Blood Pressure 104/85 O2 Sat by Pulse 100 Oximetry Disposition Clinical Impression: Chest pain Disposition: HOME SELF-CARE Condition: Good Instructions (If sedation given, give patient instructions): Chest Pain (ED) Is patient prescribed a controlled substance at d/c from ED?: No Referrals: None,Stated [Primary Care Provider] - 1-2 days
--- NOTE | 2020-07-22 00:56 | XR ---
EXAM: XR Chest, 2 Views CLINICAL HISTORY: ITS.REASON XR Reason: Chest Pain TECHNIQUE: Frontal and lateral views of the chest. COMPARISON: 11/10/18. FINDINGS: Lungs: Patchy bilateral atelectasis or infiltrate. Pleural space: Trace effusions not excluded. Heart: Stable cardiomediastinal silhouette. Mediastinum: See above. Bones/joints: No acute fracture. IMPRESSION: Patchy bilateral atelectasis or infiltrate.
[2020-07-22] MEDS ORDERED: ASPIRIN 81 MG PO STA (01:03)
[2020-07-22] MEDS ORDERED: MORPHINE SULFATE 4 MG/ML SYRINGE IV STA (01:03)
[2020-07-22 01:10] LABS: ALT 9 U/L (4-49); AST 18 U/L (17-59); African American GFR (CKD) >90 (>60 ml/min/1.73 sqM); Albumin 3.9 g/dL (3.5-5.0); Alkaline Phosphatase 44 U/L (38-126); Amylase 91 U/L (30-110); Anion Gap 4 mmol/L; Blood Urea Nitrogen 20 mg/dL (9-20); Calcium 10.1 mg/dL (8.4-10.2); Carbon Dioxide 31 mmol/L (22-30); Chloride 105 mmol/L (98-107); Glucose 92 mg/dL (74-99); Magnesium 1.9 mg/dL (1.6-2.3); Non-African American GFR(CKD) >90 (>60 ml/min/1.73 sqM); Potassium 4.3 mmol/L (3.5-5.1); Sodium 140 mmol/L (137-145); Total Bilirubin <0.1 mg/dL (0.2-1.3); Total Protein 6.9 g/dL (6.3-8.2)
[2020-07-22 01:40] LABS: Basophils % (A) 1 %; Eosinophils # (A) 0.2 k/uL (0-0.7); Eosinophils % (A) 5 %; HCT 33.8 % (39.0-53.0); HGB 10.6 gm/dL (13.0-17.5); Lymphocytes % (A) 44 %; MCH 30.5 pg (25.0-35.0); MCHC 31.4 g/dL (31.0-37.0); MCV 97.1 fL (80.0-100.0); Mean Platelet Volume 8.8; Monocytes # (A) 0.3 k/uL (0-1.0); Monocytes % (A) 7 %; Neutrophils # (A) 1.7 k/uL (1.3-7.7); Neutrophils % (A) 39 %; Platelet Count 154 k/uL (150-450); RBC 3.49 m/uL (4.30-5.90); RDW 15.2 % (11.5-15.5); WBC 4.5 k/uL (3.8-10.6)
[2020-07-22 04:15] VITALS: BP 104/85; PULSE 54; RESP 16
== END 2020-07-22 06:15 | disposition home or self-care (01) ==
LOC: EC 23:55
DX: R07.89 Other chest pain (principal); E78.5 Hyperlipidemia, unspecified; I25.119 Atherosclerotic heart disease of native coronary artery with unspecified angina pectoris; I21.9 Acute myocardial infarction, unspecified; M19.90 Unspecified osteoarthritis, unspecified site; F17.200 Nicotine dependence, unspecified, uncomplicated
CPT/HCPCS: 36415; 93005; 83880; 80053; 82150; 83735; 84484; 85025; 71046; 99285; 96374; J2270

== ENCOUNTER 2020-07-31 11:39 | Emergency (ER) | payer MEDICARE, OTHER ==
[2020-07-31] MEDS ORDERED: MORPHINE SULFATE 4 MG/ML SYRINGE IM STA (12:39)
--- NOTE | 2020-07-31 13:44 | CT ---
EXAMINATION TYPE: CT abdomen pelvis wo con DATE OF EXAM: 07/31/2020 COMPARISON: 05/30/2010 HISTORY: Left groin pain CT DLP: 414.4 mGycm Examination of the solid and hollow viscera is limited given the lack of contrast. FINDINGS: LUNG BASES: No evidence for nodule. No evidence for infiltrate. LIVER/GB: The gallbladder is unremarkable. Hepatic cystic changes. PANCREAS: No pancreatic mass identified. No inflammatory process seen. SPLEEN: No evidence for splenomegaly. No intrasplenic lesions seen. ADRENALS: No adrenal nodules identified. No evidence for thickening. KIDNEYS: 2.6 cm hyperdense lesion left mid kidney may reflect a hemorrhagic or mucinous containing cy st. Consider further evaluation with ultrasound or contrast CT on a nonemergent basis. No nephrolithi asis. No hydronephrosis. BOWEL: Appendix has a normal appearance. No evidence of bowel obstruction. No inflammatory process. Lymph nodes: No evidence for adenopathy greater than 1 cm. Abdominal aorta: Atheromatous changes seen. No evidence for aneurysm. Genital organs: No significant abnormality. Other: Fat-containing left inguinal hernia with mild internal stranding. No additional hernias seen. IMPRESSION: 1.Fat-containing left inguinal hernia with mild internal stranding. No additional hernias seen. 2.2.6 cm hyperdense lesion left mid kidney may reflect a hemorrhagic or mucinous containing cyst. Con renal technician further evaluation with ultrasound or contrast CT on a nonemergent basis.
--- NOTE | 2020-07-31 13:51 | ED ---
Male Urogenital HPI - General Chief complaint: Urogenital Stated complaint: low abd pain Time Seen by Provider: 07/31/20 12:25 Source: patient, RN notes reviewed Mode of arrival: ambulatory Limitations: no limitations - History of Present Illness Initial comments: 59-year-old male comes in complaining of left groin pain after lifting heavy or walking. He notes he does have a history of hernia that comes and goes. He denied any constipation or other bowel issues. He notes he just wanted no known on. He notes he does not follow-up with primary care very often and has not seen a surgeon. He was in no apparent distress or pain while sitting up in bed during exam and interview. He denied any hematochezia melena constipation fever fatigue chills chest pain shortness breath headache - Related Data Home Medications Medication Instructions Recorded Confirmed Aspirin EC [Ecotrin Low Dose] 81 mg PO DAILY 07/31/20 07/31/20 Allergies Allergy/AdvReac Type Severity Reaction Status Date / Time blueberry Allergy Rash/Hives Verified 07/31/20 14:03 nitroglycerin Allergy Swelling Verified 07/31/20 14:03 Review of Systems ROS Statement: Those systems with pertinent positive or pertinent negative responses have been documented in the HPI. ROS Other: All systems not noted in ROS Statement are negative. Past Medical History Past Medical History: Coronary Artery Disease (CAD), Chest Pain / Angina, Hyperlipidemia, Myocardial Infarction (MT), Osteoarthritis (OA) Additional Past Medical History / Comment(s): Pt denies COPD, arthritis in back and bilateral knees, benign colon polyps Last Myocardial Infarction Date:: 2004 History of Any Multi-Drug Resistant Organisms: None Reported Past Surgical History: Bowel Resection, Heart Catheterization With Stent Additional Past Surgical History / Comment(s): Cardiac stents x 3, bowel surgery for pinpoint hole in bowel, L knee arthroscopy, colonoscopy/benign polypectomies. Past Anesthesia/Blood Transfusion Reactions: No Reported Reaction Date of Last Stent Placement:: 2013 Past Psychological History: No Psychological Hx Reported, Bipolar, Depression, PTSD, Schizophrenia Smoking Status: Current every day smoker Past Alcohol Use History: None Reported Past Drug Use History: None Reported - Past Family History Father Family Medical History: Respiratory Disorder Additional Family Medical History / Comment(s): Father at age 64 from Black lung disease Mother Family Medical History: Hypertension, Myocardial Infarction (MT) Additional Family Medical History / Comment(s): Mother of an MT at 78yrs old. Brother(s) Family Medical History: Myocardial Infarction (MT) Additional Family Medical History / Comment(s): Patient has 10 brothers and 2 from myocardial infarction and had history of alcoholism. Sister(s) Additional Family Medical History / Comment(s): He has 7 sisters that are alive with no major medical problems. He has one son that has and one daughter that is alive and okay. General Exam Limitations: no limitations General appearance: alert, in no apparent distress Head exam: Present: atraumatic, normocephalic, normal inspection Eye exam: Present: normal appearance, PERRL, EOMI. Absent: scleral icterus, conjunctival injection, periorbital swelling Neck exam: Present: normal inspection Respiratory exam: Present: normal lung sounds bilaterally. Absent: respiratory distress, wheezes, rales, rhonchi, stridor Cardiovascular Exam: Present: regular rate, normal rhythm, normal heart sounds. Absent: systolic murmur, diastolic murmur, rubs, gallop, clicks GI/Abdominal exam: Present: soft, normal bowel sounds. Absent: distended, tenderness, guarding, rebound, rigid exam: Present: normal inspection, circumcision. Absent: scrotal swelling, vertical testicular lie Extremities exam: Present: normal inspection, full ROM, normal capillary refill. Absent: tenderness, pedal edema, joint swelling, calf tenderness Neurological exam: Present: alert, oriented X3 Psychiatric exam: Present: normal affect, normal mood Skin exam: Present: warm, dry, intact, normal color. Absent: rash Course Vital Signs 07/31/20 11:49 Temperature 98.2 F Pulse Rate 82 Respiratory 16 Rate Blood Pressure 113/70 O2 Sat by Pulse 99 Oximetry Medical Decision Making - Medical Decision Making 59-year-old male complaining of left groin pain with a history of hernia that comes and goes on its own. 4 mg of morphine, CT of the abdomen and pelvis ordered. CT showed a 2.6 cm fat-containing left inguinal hernia. Patient adamantly refused reduction in the ER Case discussed with Dr. Garay, patient can discharge home with follow-up to general surgery and primary care. - Radiology Data Radiology results: report reviewed, image reviewed CT of the abdomen pelvis: Fat-containing left inguinal hernia with mild internal stranding. No additional hernias seen. 2.6 cm hyperdense lesion left mid kidney may reflect a hemorrhagic or mucus containing cyst. Disposition Clinical Impression: Left inguinal hernia Disposition: HOME SELF-CARE Condition: Stable Instructions (If sedation given, give patient instructions): Inguinal Hernia (ED) Additional Instructions: Please return to the Emergency Department if symptoms worsen or any other concerns. Follow-up with primary care in general surgery as soon as possible. Take Tylenol Motrin as needed for pain. Avoid any strenuous lifting, bearing down or increasing intra-abdominal pressure. Is patient prescribed a controlled substance at d/c from ED?: No Referrals: Molly Deras MD [Primary Care Provider] - 1-2 days Syeda Tavera MD [STAFF PHYSICIAN] - 1-2 days Time of Disposition: 14:27
[2020-07-31 14:35] VITALS: BP 117/80; PULSE 80; RESP 18; TEMP 98
== END 2020-07-31 14:35 | disposition home or self-care (01) ==
LOC: EC 11:39
DX: K40.90 Unilateral inguinal hernia, without obstruction or gangrene, not specified as recurrent (principal); I25.2 Old myocardial infarction; M19.90 Unspecified osteoarthritis, unspecified site; F17.200 Nicotine dependence, unspecified, uncomplicated; Z79.82 Long term (current) use of aspirin; Z88.8 Allergy status to other drugs, medicaments and biological substances; Z91.018 Allergy to other foods; I25.10 Atherosclerotic heart disease of native coronary artery without angina pectoris; Z95.5 Presence of coronary angioplasty implant and graft
CPT/HCPCS: 96372; 99284; 74176; J2270

== ENCOUNTER 2020-08-09 | Inpatient (IN) | payer MEDICARE, OTHER | END 2020-08-11 11:28 | disposition home or self-care (01) | DRG 351 | PROVIDERS: ADMIT Internal Medicine | PROC: 0YU64JZ Supplement Left Inguinal Region with Synthetic Substitute, Percutaneous Endoscopic Approach (ICD-10-PCS; principal; 2020-08-10) | PROC: 8E0W4CZ Robotic Assisted Procedure of Trunk Region, Percutaneous Endoscopic Approach (ICD-10-PCS; principal; 2020-08-10) | CPT/HCPCS: 36415; 64999; 74176; 80053; 80320; 81003; 82150; 83605; 83690; 85025; 87635; 88304; 93005; 96361; 96374; 99285 ==

== ENCOUNTER 2020-10-23 10:15 | Inpatient (IN) | payer MEDICARE, MEDICAID ==
[2020-10-23] MEDS ORDERED: KETOROLAC 15 MG/ML 1 ML VIAL IVP STA (10:26)
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
[2020-10-23 11:01] LABS: Basophils % (A) 0 %; Eosinophils % (A) 1 %; HGB 11.9 gm/dL (13.0-17.5); Lymphocytes # (A) 1.6 k/uL (1.0-4.8); Lymphocytes % (A) 31 %; MCH 32.6 pg (25.0-35.0); MCHC 33.2 g/dL (31.0-37.0); MCV 98.3 fL (80.0-100.0); Mean Platelet Volume 8.2; Monocytes # (A) 0.4 k/uL (0-1.0); Monocytes % (A) 7 %; Neutrophils # (A) 2.9 k/uL (1.3-7.7); Neutrophils % (A) 57 %; Platelet Count 191 k/uL (150-450); RBC 3.66 m/uL (4.30-5.90); RDW 15.4 % (11.5-15.5)
[2020-10-23 11:13] LABS: ALT 13 U/L (4-49); AST 38 U/L (17-59); African American GFR (CKD) >90 (>60 ml/min/1.73 sqM); Albumin 4.6 g/dL (3.5-5.0); Alkaline Phosphatase 50 U/L (38-126); Anion Gap 16 mmol/L; Blood Urea Nitrogen 10 mg/dL (9-20); Calcium 9.5 mg/dL (8.4-10.2); Carbon Dioxide 17 mmol/L (22-30); Chloride 104 mmol/L (98-107); Glucose 69 mg/dL (74-99); Magnesium 1.9 mg/dL (1.6-2.3); Non-African American GFR(CKD) >90 (>60 ml/min/1.73 sqM); Potassium 4.3 mmol/L (3.5-5.1); Sodium 137 mmol/L (137-145); Total Bilirubin 0.7 mg/dL (0.2-1.3); Total Protein 7.9 g/dL (6.3-8.2)
[2020-10-23 11:17] LABS: Partial Thromboplastin Time 23.4 sec (22.0-30.0); Prothrombin Time 10.3 sec (9.0-12.0)
--- NOTE | 2020-10-23 12:00 | XR ---
EXAMINATION TYPE: XR chest 2V DATE OF EXAM: 10/23/2020 COMPARISON: 07/22/2020 HISTORY: 60-year-old male with chest pain TECHNIQUE: AP and lateral views FINDINGS: Heart upper limits of normal in size. Aorta and pulmonary vasculature within normal limits. Some stra ndy atelectasis in the lower lungs. No consolidation or pleural effusion. Surgical clips at the GE ju nction. IMPRESSION: Some strandy lower lung areas of atelectasis. No acute cardiopulmonary process.
[2020-10-23] MEDS ORDERED: MORPHINE SULFATE 4 MG/ML SYRINGE IVP STA (13:46)
[2020-10-23] MEDS ORDERED: MAGNESIUM HYDROXIDE 2,400 MG/10 ML CUP PO PRN (15:06)
[2020-10-23] MEDS ORDERED: ACETAMINOPHEN TAB 325 MG TAB PO PRN (15:06)
[2020-10-23] MEDS ORDERED: MAG HYDROX/AL HYDROX/SIMETH 30 ML CUP PO PRN (15:06)
[2020-10-23] MEDS ORDERED: HALOPERIDOL LACTATE 5 MG/ML 1 ML VIAL IM PRN (15:08)
[2020-10-23] MEDS ORDERED: LORazepam 2 MG/ML INJ IM PRN (15:08)
[2020-10-23] MEDS: NICOTINE 14MG/24HR PATCH TRANSDERM SCH (16:06)
[2020-10-23] MEDS: haloperidoL 5 MG TAB PO PRN (16:09)
[2020-10-23] MEDS: LORazepam 1 MG TAB PO PRN (16:09)
[2020-10-24] MEDS: QUEtiapine 100 MG TAB PO SCH ×2 (02:14→20:26)
--- NOTE | 2020-10-24 02:17 | P.PN ---
Progress Note - Text Progress Note Date: 10/23/20 patient was sleeping and could not be evaluated at this time
[2020-10-24] MEDS: NICOTINE 14MG/24HR PATCH TRANSDERM SCH (08:43)
[2020-10-24] MEDS: VENLAFAXINE HCL ER 37.5 MG CAP PO SCH (08:43)
[2020-10-24] MEDS: haloperidoL 5 MG TAB PO PRN (08:44)
[2020-10-24] MEDS: LORazepam 1 MG TAB PO PRN (08:44)
[2020-10-24 11:35] LABS: Chol/HDL Ratio 1.32; LDL Cholesterol,Calculated 30.8 mg/dL (0.0-131.0); VLDL Calculation 11.2 mg/dL (5.00-40.00)
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
[2020-10-24 12:43] LABS: Hemoglobin A1C 4.6 % (4.0-6.0)
[2020-10-25] MEDS: NICOTINE 14MG/24HR PATCH TRANSDERM SCH (08:10)
[2020-10-25] MEDS: VENLAFAXINE HCL ER 37.5 MG CAP PO SCH (08:10)
[2020-10-25] MEDS: haloperidoL 5 MG TAB PO PRN (08:12)
[2020-10-25] MEDS: LORazepam 1 MG TAB PO PRN (08:12)
--- NOTE | 2020-10-25 12:01 | P.PN ---
Progress Note - Text Progress Note Date: 10/25/20 Interval History: Patient was seen resting in bed and was agreeable to speak with engineering writer in his room. Currently, the patient endorses suicidal ideation. He reports that these are often caused by the auditory hallucinations that he experiences that are commanding him to hurt himself. He does report that he expresses homicidal thoughts last night but is not currently endorsing them today. He denies any particular target for us homicidal ideation. He continues to endorse auditory hallucinations in the form of his parents as well as his ex- speaking to him. He does endorse that they are commanding in nature and at times demeaning. He denies any paranoid delusions at this time. The patient does state that he had difficulty with sleep last night. He reports that his appetite has been low. He remains primarily isolative to himself in his room. Mental Status Exam: General Appearance: Patient appears to be stated age is alert, directable, and cooperative. Behavior: Patient is calmly seated without any agitated behavior. Speech: Patient's speech is fluent and nonpressured. Mood/Affect: Mood is improving mildly, affect is congruent and constricted. Suicidality/Homicidality: Patient denies having any suicidal or homicidal ideation intent or plan. Perceptions: Patient denies any visual hallucinations and denies any auditory hallucinations Though content/process: There is no evidence of any delusional thought content and thought process is linear and goal-directed. Memory and concentration: AOX3, grossly intact for the purposes of this session Judgment and insight: Improving mildly Vital Signs Temp 98.5 F 10/24/20 11:00 Pulse 101 H 10/25/20 08:15 Resp 18 10/24/20 17:14 BP 118/84 10/25/20 08:15 Pulse Ox 98 10/23/20 15:55 Laboratory Results - Last 24 Hours 10/23/20 10:[address] Glu mg/dL 85 Hemoglobin A1c 4.6 Assessment Major depressive disorder, recurrent, severe, with psychotic features Alcohol use disorder Cocaine use disorder Nicotine dependence Plan: -Patient continues to meet criteria for inpatient psychiatric admission for symptom stabilization and safety. Patient has signed adult voluntary form and medication consent and was placed in patient's chart. -Medications: Increase Seroquel to 150 mg at bedtime. Increase Effexor XR 75 daily for depression/anxiety. -When necessary Ativan and Geodon for agitation/aggression. -NRT - nicotine patch -SW on board for discharge planning. Encouraged the patient to participate in milieu.
[2020-10-25] MEDS: QUEtiapine 50 MG TAB PO SCH (22:07)
[2020-10-26] MEDS: NICOTINE 14MG/24HR PATCH TRANSDERM SCH (08:22)
[2020-10-26] MEDS: VENLAFAXINE HCL ER 75 MG CAP PO SCH (08:22)
[2020-10-26] MEDS: LORazepam 1 MG TAB PO PRN (08:23)
[2020-10-26] MEDS: QUEtiapine 50 MG TAB PO SCH (21:08)
--- NOTE | 2020-10-27 07:28 | P.PN ---
Progress Note - Text Progress Note Date: 10/26/20 Subjective: Patient was seen today as a cross coverage for . The patient was evaluated, chart reviewed, case discussed with the treatment team. Patient reports poor sleep last night, and appetite was reported as "not good ". Patient has no been going to groups and other unit activities. The patient is compliant with his medications and denies any adverse reactions. Patient reports continued to feel depressed and had suicidal ideation this morning. Admits for having auditory hallucinations hearing his family voices telling him to hurt himself but he tries to distract his mind. Reports having visual hallucinations seeing black dots as per his report. Denies any severe mood swings, anger, or agitation. Reports his anxiety is very high. Patient refused to discuss any changes of medications and preferred to give current medications and doses more time. Objective: Vitals has been reviewed. Mental status examination; Appearance: The patient appears older than, poorly groomed, below average body built, no specific features. Gait/posture: laying down, Normal arm swinging: No abnormal movements. Attitude and behavior: Pt was not engaged, not fully cooperative, poor eye contact. Motor activity: Decreased psychomotor activity Speech: low volume, slow, and monotonous. Mood:Depressed Affect: Restricted to flat Thought form: Limited thoughts, but goal-directed, linear, and coherent. Thought content: Non-delusional, reports intermittent suicidal thoughts, denies homicidal thoughts, denies intentions or plans. Perception: Reports auditory and visual hallucinations Attention: No impairment. Patient was able to repeat serial 5. Orientation: Patient is oriented to place person and situation. Not fully to time. Insight: Patient has fair insight about his psychiatric disorder. Judgment: Patient has fair judgment about his psychiatric treatment. Assessment: Major depressive disorder, recurrent, severe, with psychotic features Alcohol use disorder Cocaine use disorder Nicotine dependence Plan: Continue inpatient level of care due to for further monitoring and stabilization, and he still meets criteria for inpatient psychiatric hospitalization. Precautions: Continue 15 minutes check for safety. Consider medical consultation if any acute medical issues arise. Provide the patient individual, group therapy, substance use disorder counseling to give better insight and learn coping skills. Medications: Continue Seroquel 150 mg at bedtime for depression and mood stabilization, Effexor 75 mg daily for depression and anxiety, and nicotine replacement therapy Continue as needed medications for psychiatric emergencies including psychosis, agitation and anxiety colluding Geodon and Ativan. Continue non-psychiatric medications for medical conditions as recommended by the medical team. Discharge patient to OUTPATIENT services upon a stabilization
[2020-10-27] MEDS: VENLAFAXINE HCL ER 75 MG CAP PO SCH (08:24)
[2020-10-27] MEDS: LORazepam 1 MG TAB PO PRN ×2 (08:25→23:16)
[2020-10-27] MEDS: NICOTINE 14MG/24HR PATCH TRANSDERM SCH (08:25)
[2020-10-27] MEDS: QUEtiapine 50 MG TAB PO SCH (21:03)
--- NOTE | 2020-10-28 00:42 | P.PN ---
Progress Note - Text Progress Note Date: 10/27/20 Subjective: Patient was seen today as a cross coverage for . The patient was evaluated, chart reviewed, case discussed with the treatment team. Patient continues to reports same symptoms as yesterday that he still feeling depressed and has suicidal ideation earlier today. He continues to have visual hallucinations seeing black dots as per his report but denies AH today. Denies any severe mood swings, anger, or agitation. Pt continues to have high anxiety. He was laying in bed at his room and reports minimal interaction with others. Reports poor sleep and appetite. Pt doesn't attend any groups but he takes his medications. Patient refused to discuss any medication changes or adjustment and reports willing to discuss that with his primary psychiatrist on Thursday. Objective: Vitals has been reviewed. Mental status examination; Appearance: The patient appears older than, poorly groomed, below average body built, no specific features. Gait/posture: laying down, Normal arm swinging: No abnormal movements. Attitude and behavior: Pt was not engaged, not fully cooperative, poor eye contact. Motor activity: Decreased psychomotor activity Speech: low volume, slow, and monotonous. Mood:Depressed Affect: Restricted to flat Thought form: Limited thoughts, but goal-directed, linear, and coherent. Thought content: Non-delusional, reports intermittent suicidal thoughts, denies homicidal thoughts, denies intentions or plans. Perception: Denies auditory but reports visual hallucinations Attention: No impairment. Patient was able to repeat serial 5. Orientation: Patient is oriented to place person and situation. Not fully to time. Insight: Patient has fair insight about his psychiatric disorder. Judgment: Patient has fair judgment about his psychiatric treatment. Assessment: Major depressive disorder, recurrent, severe, with psychotic features Alcohol use disorder Cocaine use disorder Nicotine dependence Plan: Continue inpatient level of care due to for further monitoring and stabilization, and he still meets criteria for inpatient psychiatric hospitalization. Precautions: Continue 15 minutes check for safety. Consider medical consultation if any acute medical issues arise. Provide the patient individual, group therapy, substance use disorder counseling to give better insight and learn coping skills. Medications: Pt refuses any adjustment of his medications Continue Seroquel 150 mg at bedtime for depression and mood stabilization, Effexor 75 mg daily for depression and anxiety, and nicotine replacement therapy Continue as needed medications for psychiatric emergencies including psychosis, agitation and anxiety colluding Geodon and Ativan. Continue non-psychiatric medications for medical conditions as recommended by the medical team. Discharge patient to OUTPATIENT services upon a stabilization
[2020-10-28] MEDS: LORazepam 1 MG TAB PO PRN (08:14)
[2020-10-28] MEDS: VENLAFAXINE HCL ER 75 MG CAP PO SCH (08:14)
[2020-10-28] MEDS: NICOTINE 14MG/24HR PATCH TRANSDERM SCH (08:15)
[2020-10-28] MEDS: QUEtiapine 50 MG TAB PO SCH (20:32)
--- NOTE | 2020-10-28 23:51 | P.PN ---
Progress Note - Text Progress Note Date: 10/28/20 Subjective: Patient was seen today as a cross coverage for . The patient was evaluated, chart reviewed, case discussed with the treatment team. Patient reports some improvement in his depression today but he is still having suicidal ideation which he reports less frequent. Reports his asleep was interrupted last night with only one to 2 hours and his appetite is very low today. Patient continues to have auditory hallucinations which sometimes telling him to hurt himself but his always distracting his mind. Patient doesn't attend groups, but he takes his psych medications and denies side effects. Patient continues to refuse discussing any medication adjustment or changes. Objective: Vitals has been reviewed. Mental status examination; Appearance: The patient appears older than, poorly groomed, below average body built, no specific features. Gait/posture: Normal gait, Normal arm swinging: No abnormal movements. Attitude and behavior: Pt was not engaged, not fully cooperative, poor eye contact. Motor activity: Decreased psychomotor activity Speech: low volume, slow, and monotonous. Mood:Depressed Affect: Restricted to flat Thought form: Limited thoughts, but goal-directed, linear, and coherent. Thought content: Non-delusional, reports intermittent suicidal thoughts, denies homicidal thoughts, denies intentions or plans. Perception: Denies auditory but reports visual hallucinations Attention: No impairment. Patient was able to repeat serial 5. Orientation: Patient is oriented to place person and situation. Not fully to time. Insight: Patient has fair insight about his psychiatric disorder. Judgment: Patient has fair judgment about his psychiatric treatment. Assessment: Major depressive disorder, recurrent, severe, with psychotic features Alcohol use disorder Cocaine use disorder Nicotine dependence Plan: Continue inpatient level of care due to for further monitoring and stabilization, and he still meets criteria for inpatient psychiatric hospitalization. Precautions: Continue 15 minutes check for safety. Consider medical consultation if any acute medical issues arise. Provide the patient individual, group therapy, substance use disorder counseling to give better insight and learn coping skills. Medications: Pt refuses any adjustment of his medications Continue Seroquel 150 mg at bedtime for depression and mood stabilization, Effexor 75 mg daily for depression and anxiety, and nicotine replacement therapy Continue as needed medications for psychiatric emergencies including psychosis, agitation and anxiety colluding Geodon and Ativan. Continue non-psychiatric medications for medical conditions as recommended by the medical team. Discharge patient to OUTPATIENT services upon a stabilization
[2020-10-29] MEDS: VENLAFAXINE HCL ER 75 MG CAP PO SCH (08:27)
[2020-10-29] MEDS: LORazepam 1 MG TAB PO PRN (08:27)
[2020-10-29] MEDS: NICOTINE 14MG/24HR PATCH TRANSDERM SCH (08:48)
[2020-10-29] MEDS ORDERED: LORazepam 2 MG/ML INJ IM PRN (11:25)
[2020-10-29] MEDS ORDERED: LORazepam 0.5 MG TAB PO PRN (11:25)
--- NOTE | 2020-10-29 11:52 | P.PN ---
Progress Note - Text Progress Note Date: 10/29/20 Interval History: Patient was seen resting in bed and was agreeable to speak with senior grant writer in his room. The patient continues to remain primarily as it is himself in his room. The patient states that "the forces are coming at me and night." He states that voices tell him to hurt himself or somebody else. He states that the voice sounds like his son at times but other family members that others. He is currently endorsing suicidal ideation but with no intention or plan. He does state that he is expressing some homicidal thoughts due to the voices telling him to hurt himself or hurt somebody else. The patient has been informed this provider that he has a low appetite and has not been eating but has not been noted by staff as the patient was noted to be attending meals and eating appropriately. Patient has been in adherent with his medications and is not endorsing any significant side effects at this time. He continues to report poor sleep. The patient does admit to visual hallucinations stating that he experiences on visual disturbances. He describes these as thoughts and lites that appear in front of him. He reports that these are short lived. He is open to having his Seroquel increased. Mental Status Exam: General Appearance: Patient appears to be stated age is alert, directable, and cooperative. Behavior: Patient is calmly seated without any agitated behavior. Speech: Patient's speech is fluent and nonpressured. Mood/Affect: Mood is "not good doc." Affect is congruent and dysphoric. Suicidality/Homicidality: He endorses both suicidal and homicidal thoughts without plan or intention. Perceptions: Patient endorses auditory hallucinations. Reports visual d isturbances. Though content/process: There is no evidence of any delusional thought content and thought process is linear and goal-directed. Memory and concentration: AOX3, grossly intact for the purposes of this session Judgment and insight: Poor Vital Signs Temp 98.1 F 10/29/20 06:38 Pulse 71 10/29/20 06:38 Resp 18 10/29/20 06:38 BP 99/60 10/29/20 06:38 Pulse Ox 98 10/23/20 15:55 Assessment Major depressive disorder, recurrent, severe, with psychotic features Alcohol use disorder Cocaine use disorder Nicotine dependence Plan: -Patient continues to meet criteria for inpatient psychiatric admission for symptom stabilization and safety. Patient has signed adult voluntary form and medication consent and was placed in patient's chart. -Medications: Increase Seroquel to 200 mg at bedtime for psychosis Increase Effexor XR to 150 daily for depression/anxiety. -When necessary Ativan and Haldol for agitation/aggression. -Decrease Ativan prn to 0.5 mg due to concern for abuse. -NRT - nicotine patch -SW on board for discharge planning. Encouraged the patient to participate in milieu.
[2020-10-29] MEDS ORDERED: QUEtiapine 200 MG TAB PO SCH (21:00)
[2020-10-30] MEDS: VENLAFAXINE HCL ER 150 MG CAP PO SCH (08:10)
[2020-10-30] MEDS: NICOTINE 14MG/24HR PATCH TRANSDERM SCH (08:10)
--- NOTE | 2020-10-30 11:37 | P.PN ---
Progress Note - Text Progress Note Date: 10/30/20 Interval History: Patient was seen resting in bed and was agreeable to speak with story writer in his room. The patient continues to remain primarily isolative to himself in his room. The patient does report that today he feels the medications are "starting to kick in." He reports that he is feeling slightly better. He continues to state that he experienced suicidal thoughts in the morning but denies any homicidal thoughts today. He is currently reporting that his auditory hallucinations have decreased significantly but continued to be somewhat present in the background. He reports that when he hears is mostly nonsensical. He is not endorsing any visual hallucinations at this time. The patient is denying any paranoia or delusions. He has been adherent with his medications and is not endorsing any significant side effects. The patient reports that he plans to attend some groups today. Mental Status Exam: General Appearance: Patient appears to be stated age is alert, directable, and cooperative. Behavior: Patient is calmly seated without any agitated behavior. Speech: Patient's speech is fluent and nonpressured. Mood/Affect: Mood is "feeling better." Affect is congruent and constricted. Suicidality/Homicidality: The patient reports suicidal ideation or homicidal ideation Perceptions: Patient endorses auditory hallucinations but no visual hallucinations. Though content/process: There is no evidence of any delusional thought content and thought process is linear and goal-directed. Memory and concentration: AOX3, grossly intact for the purposes of this session Judgment and insight: Poor Vital Signs Temp 98.1 F 10/29/20 06:38 Pulse 95 10/30/20 08:10 Resp 18 10/29/20 06:38 BP 108/76 10/30/20 08:10 Pulse Ox 98 10/23/20 15:55 Assessment Major depressive disorder, recurrent, severe, with psychotic features Alcohol use disorder Cocaine use disorder Nicotine dependence Plan: -Patient continues to meet criteria for inpatient psychiatric admission for symptom stabilization and safety. Patient has signed adult voluntary form and medication consent and was placed in patient's chart. -Medications: Increase Seroquel to 250 mg at bedtime for psychosis Continue Effexor XR 150 daily for depression/anxiety. -When necessary Ativan and Haldol for agitation/aggression. -NRT - nicotine patch -SW on board for discharge planning. Encouraged the patient to participate in milieu.
[2020-10-30] MEDS ORDERED: QUEtiapine 50 MG TAB PO SCH (21:00)
[2020-10-30] MEDS ORDERED: QUEtiapine 200 MG TAB PO SCH (21:00)
[2020-10-31 06:55] VITALS: BP 97/58; PULSE 70; RESP 16; TEMP 98.7
[2020-10-31] MEDS: NICOTINE 14MG/24HR PATCH TRANSDERM SCH (08:12)
[2020-10-31] MEDS: VENLAFAXINE HCL ER 150 MG CAP PO SCH (08:13)
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
== END 2020-10-31 13:20 | disposition home or self-care (01) | DRG 885 ==
LOC: EC 10:15 → 3MHU 15:04
PROVIDERS: ADMIT Psychiatry & Neurology Psychiatry; ATTEND Psychiatry & Neurology Psychiatry
DX: F33.3 Major depressive disorder, recurrent, severe with psychotic symptoms (principal); R45.851 Suicidal ideations; F41.9 Anxiety disorder, unspecified; E78.5 Hyperlipidemia, unspecified; F10.10 Alcohol abuse, uncomplicated; F12.10 Cannabis abuse, uncomplicated; F14.10 Cocaine abuse, uncomplicated; F17.210 Nicotine dependence, cigarettes, uncomplicated; F20.9 Schizophrenia, unspecified; I25.10 Atherosclerotic heart disease of native coronary artery without angina pectoris; I25.2 Old myocardial infarction; R45.850 Homicidal ideations; Z79.899 Other long term (current) drug therapy; Z82.49 Family history of ischemic heart disease and other diseases of the circulatory system; Z91.5 Personal history of self-harm; Z95.5 Presence of coronary angioplasty implant and graft; Z20.822 Contact with and (suspected) exposure to COVID-19; Z56.0 Unemployment, unspecified; Z71.41 Alcohol abuse counseling and surveillance of alcoholic; Z71.51 Drug abuse counseling and surveillance of drug abuser
CPT/HCPCS: 36415; 71046; 80053; 80061; 82075; 83036; 83735; 83880; 84443; 84484; 85025; 85610; 85730; 87635; 93005; 96374; 99285

== ENCOUNTER 2021-02-16 09:17 | Emergency (ER) | payer MEDICARE, OTHER ==
--- NOTE | 2021-02-16 09:43 | ED ---
General Adult HPI - General Chief complaint: ENT Stated complaint: Sore Throat,Body Aches Time Seen by Provider: 02/16/21 09:20 Source: patient, RN notes reviewed, old records reviewed Mode of arrival: ambulatory Limitations: no limitations - History of Present Illness Initial comments: This is a 60-year-old male who presents to the emergency department with past medical history significant for coronary stents. Patient states his has called in and since Thursday he has been experiencing some sore throat and body aches. Patient states he has not been tested so is here today for a test. Patient denies any chest pain or difficulty breathing. He states he has achiness all over his back. Patient denies anysmell per patient denies any abdominal pain patient denies nausea vomiting diarrhea. - Related Data Home Medications Medication Instructions Recorded Confirmed HYDROcodone/APAP 10-325MG [[place] 1 tab PO QID 10/23/20 10/23/20 10-325] Naloxone HCl [Narcan] 4 mg NASAL DIRECTED PRN 10/23/20 10/23/20 Previous Rx's Medication Instructions Recorded Nicotine 14Mg/24Hr Patch [Habitrol] 1 patch TRANSDERM DAILY 30 Days 10/31/20 patch QUEtiapine [SEROquel] 50 mg PO HS 30 Days tab 10/31/20 QUEtiapine [SEROquel] 200 mg PO HS 30 Days tab 10/31/20 Venlafaxine HCl ER [Effexor XR] 150 mg PO DAILY 30 Days 10/31/20 Allergies Allergy/AdvReac Type Severity Reaction Status Date / Time blueberry Allergy Rash/Hives Verified 02/16/21 09:22 nitroglycerin Allergy Swelling Verified 02/16/21 09:22 Review of Systems ROS Statement: Those systems with pertinent positive or pertinent negative responses have been documented in the HPI. ROS Other: All systems not noted in ROS Statement are negative. Past Medical History Past Medical History: Coronary Artery Disease (CAD), Chest Pain / Angina, Hyperlipidemia, Myocardial Infarction ([place]), Osteoarthritis (OA) Additional Past Medical History / Comment(s): arthritis in back and bilateral knees, hiatal hernia repair, Last Myocardial Infarction Date:: 2004 History of Any Multi-Drug Resistant Organisms: None Reported Past Surgical History: Bowel Resection, Coronary Bypass/CABG, Heart Catheterization With Stent Additional Past Surgical History / Comment(s): Cardiac stents x 3, bowel surgery for pinpoint hole in bowel, L knee arthroscopy, colonoscopy/benign polypectomies. Past Anesthesia/Blood Transfusion Reactions: No Reported Reaction Date of Last Stent Placement:: 2013 Past Psychological History: No Psychological Hx Reported, Bipolar, Depression, PTSD, Schizophrenia Smoking Status: Current every day smoker Past Alcohol Use History: None Reported Past Drug Use History: None Reported - Past Family History Father Family Medical History: Respiratory Disorder Additional Family Medical History / Comment(s): Father at age 64 from Black lung disease Mother Family Medical History: Hypertension, Myocardial Infarction ([place]) Additional Family Medical History / Comment(s): Mother of an [place] at 78yrs old. Brother(s) Family Medical History: Myocardial Infarction ([place]) Additional Family Medical History / Comment(s): Patient has 10 brothers and 2 from myocardial infarction and had history of alcoholism. Sister(s) Family Medical History: Hypertension, Myocardial Infarction ([place]) Additional Family Medical History / Comment(s): He has 7 sisters that are alive with no major medical problems. He has one son that has and one daughter that is alive and okay. General Exam - General Exam Comments Initial Comments: GENERAL: Patient is well-developed and well-nourished. Patient is nontoxic and well- hydrated and is in mild distress. ENT: Neck is soft and supple. No significant lymphadenopathy is noted. Oropharynx is clear. Moist mucous membranes. Neck has full range of motion without eliciting any pain. EYES: The sclera were anicteric and conjunctiva were pink and moist. Extraocular movements were intact and pupils were equal round and reactive to light. Eyelids were unremarkable. PULMONARY: Unlabored respirations. Good breath sounds bilaterally. No audible rales rhonchi or wheezing was noted. CARDIOVASCULAR: There is a regular rate and rhythm without any murmurs gallops or rubs. ABDOMEN: Soft and nontender with normal bowel sounds. SKIN: Skin is clear with no lesions or rashes and otherwise unremarkable. NEUROLOGIC: Patient is alert and oriented x3. Cranial nerves II through XII are grossly intact. Motor and sensory are also intact. Normal speech, volume and content. Symmetrical smile. MUSCULOSKELETAL: Normal extremities with adequate strength and full range of motion. LYMPHATICS: No significant lymphadenopathy is noted PSYCHIATRIC: Normal psychiatric evaluation. Limitations: no limitations Course Vital Signs 02/16/21 09:20 Temperature 98.8 F Pulse Rate 77 Respiratory 20 Rate Blood Pressure 138/89 O2 Sat by Pulse 99 Oximetry Medical Decision Making - Medical Decision Making EKG shows sinus rhythm with occasional PVC at a rate of 60 bpm FL interval 154 QRS is 74 QT interval is 434 QTC is 461. Patient's EKG shows no ST segment elevation or depression. No peripheral: Is negative. Patient states all of his aches and pains went away after he received Motrin. - Lab Data Lab Results 02/16/21 Range/Units 09:42 Coronavirus (PCR) Not Detected (Not Detectd) Disposition Clinical Impression: Exposure to COVID-19 virus Disposition: HOME SELF-CARE Condition: Good Instructions (If sedation given, give patient instructions): Coronavirus Disease 2019 (COVID-19) Is patient prescribed a controlled substance at d/c from ED?: No Referrals: None,Stated [REFERRING] - 1-2 days Time of Disposition: 11:23
[2021-02-16] MEDS ORDERED: IBUPROFEN 600 MG TAB PO STA (09:44)
--- NOTE | 2021-02-16 10:08 | XR ---
EXAMINATION TYPE: XR chest 1V portable DATE OF EXAM: 02/16/2021 COMPARISON: Chest x-ray October 23, 2020 HISTORY: Shortness of breath TECHNIQUE: Single AP portable frontal upright view of the chest is obtained. FINDINGS: There is no suspicious new focal air space opacity, pleural effusion, or pneumothorax seen . The cardiac silhouette size remains within normal limits. The osseous structures are intact. IMPRESSION: No acute process.
[2021-02-16 11:56] VITALS: RESP 18
[2021-02-16 12:27] VITALS: BP 127/88; PULSE 66; TEMP 98.6
== END 2021-02-16 12:22 | disposition home or self-care (01) ==
LOC: EC 09:17
DX: Z20.822 Contact with and (suspected) exposure to COVID-19 (principal); I25.10 Atherosclerotic heart disease of native coronary artery without angina pectoris; E78.5 Hyperlipidemia, unspecified; I25.2 Old myocardial infarction; M19.90 Unspecified osteoarthritis, unspecified site; F17.200 Nicotine dependence, unspecified, uncomplicated
CPT/HCPCS: 71045; 87635; 93005; 99284

== ENCOUNTER 2021-02-19 15:29 | Inpatient (IN) | payer MEDICARE, OTHER ==
[2021-02-19] MEDS ORDERED: diphenhydrAMINE 25 MG CAP PO STA (16:15)
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
[2021-02-19 17:27] LABS: Amphetamine Screen,Urine Not Detected (NotDetected); Barbiturate Screen,Urine Not Detected (NotDetected); Benzodiazepines Screen,Urine Not Detected (NotDetected); Cocaine Screen,Urine Not Detected (NotDetected); Methadone Screen, Urine Not Detected (NotDetected); Opiate Screen,Urine Not Detected (NotDetected); Oxycodone Screen, Urine Not Detected (NotDetected); Phencyclidine Screen,Urine Not Detected (NotDetected); Tricyclic Antidepressant,Urine Not Detected (NotDetected); Urn Cannabinoid Scrn Not Detected (NotDetected)
[2021-02-19] MEDS ORDERED: ALPRAZolam 0.5 MG TAB PO STA (22:31)
[2021-02-20] MEDS ORDERED: LORazepam 1 MG TAB PO PRN (00:41)
[2021-02-20] MEDS ORDERED: ACETAMINOPHEN TAB 325 MG TAB PO PRN (00:41)
[2021-02-20] MEDS ORDERED: MAGNESIUM HYDROXIDE 2,400 MG/10 ML CUP PO PRN (00:41)
[2021-02-20] MEDS ORDERED: MAG HYDROX/AL HYDROX/SIMETH 30 ML CUP PO PRN (00:41)
[2021-02-20] MEDS ORDERED: HALOPERIDOL LACTATE 5 MG/ML 1 ML VIAL IM PRN (00:41)
[2021-02-20] MEDS ORDERED: haloperidoL 5 MG TAB PO PRN (00:44)
[2021-02-20] MEDS ORDERED: LORazepam 2 MG/ML INJ IM PRN (00:44)
[2021-02-20] MEDS ORDERED: IBUPROFEN 800 MG TAB PO PRN (00:49)
[2021-02-20 02:46] LABS: Appearance,Urine Clear (Clear); Bilirubin,Urine Negative (Negative); Blood,Urine Negative (Negative); Color,Urine Light Yellow; Glucose,Urine (UA) Negative (Negative); Ketones,Urine Negative (Negative); Leukocyte Esterase,Urine Negative (Negative); Nitrite,Urine Negative (Negative); PH, Urine 5.5 (5.0-8.0); Protein,Urine Negative (Negative); Specific Gravity,Urine 1.005 (1.001-1.035); Urobilinogen,Urine <2.0 mg/dL (<2.0)
[2021-02-20] MEDS: NICOTINE 14MG/24HR PATCH TRANSDERM SCH (08:30)
[2021-02-20] MEDS: ASPIRIN 81 MG PO SCH (08:30)
[2021-02-20] MEDS ORDERED: VENLAFAXINE HCL ER 37.5 MG CAP PO SCH (09:00)
[2021-02-20] MEDS: METOPROLOL SUCCINATE (ER) 50 MG TAB.ER.24H PO SCH (12:12)
[2021-02-20] MEDS ORDERED: QUEtiapine 25 MG TAB PO STA (13:02)
--- NOTE | 2021-02-20 13:35 | XR ---
EXAMINATION TYPE: XR chest 1V portable DATE OF EXAM: 02/20/2021 CLINICAL HISTORY: Difficulty breathing progress study. COVID. TECHNIQUE: Single AP portable frontal view of the chest is obtained. COMPARISON: Chest x-ray from 4 days earlier and older studies. FINDINGS: No suspicious new focal airspace opacity, pleural effusion, or pneumothorax is seen bilate rally. Cardiac silhouette size is stable and remains within normal limits. Osseous structures are int act. Surgical clips near diaphragmatic hiatus on CT less well seen on plain films IMPRESSION: No acute pulmonary process.
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
[2021-02-20] MEDS: ZINC SULFATE 220 MG CAP PO SCH (15:47)
[2021-02-20] MEDS: CHOLECALCIFEROL 25 MCG (1000 IU) TABLET PO SCH (15:47)
[2021-02-20] MEDS: ENOXAPARIN 40 MG/0.4 ML SYRINGE SQ SCH (15:47)
[2021-02-20] MEDS: ASCORBIC ACID 500 MG TAB PO SCH (15:48)
[2021-02-20 16:12] LABS: HCT 37.8 % (39.0-53.0); HGB 12.3 gm/dL (13.0-17.5); MCH 33.9 pg (25.0-35.0); MCHC 32.6 g/dL (31.0-37.0); MCV 103.9 fL (80.0-100.0); Macrocytosis Slight; Mean Platelet Volume 10.5; Platelet Count 118 k/uL (150-450); RBC 3.64 m/uL (4.30-5.90); RDW 14.4 % (11.5-15.5); WBC 2.6 k/uL (3.8-10.6)
[2021-02-20 16:21] LABS: ALT 26 U/L (4-49); AST 59 U/L (17-59); African American GFR (CKD) >90 (>60 ml/min/1.73 sqM); Albumin 3.8 g/dL (3.5-5.0); Alkaline Phosphatase 41 U/L (38-126); Anion Gap 3 mmol/L; Blood Urea Nitrogen 15 mg/dL (9-20); Calcium 9.4 mg/dL (8.4-10.2); Carbon Dioxide 29 mmol/L (22-30); Chloride 103 mmol/L (98-107); Glucose 89 mg/dL (74-99); Non-African American GFR(CKD) >90 (>60 ml/min/1.73 sqM); Potassium 4.3 mmol/L (3.5-5.1); Sodium 135 mmol/L (137-145); Total Bilirubin 0.4 mg/dL (0.2-1.3); Total Protein 6.6 g/dL (6.3-8.2)
[2021-02-20 16:46] LABS: Band Neutrophils % 2 %; Lymphocytes # (M) 0.86 k/uL (1.0-4.8); Monocytes # (M) 0.36 k/uL (0-1.0); Neutrophils % (M) 51 %; Nucleated Red Blood Cells 0 /100 WBC (0-0); Polychromasia Present; Total Cells Counted 100
[2021-02-20] MEDS ORDERED: QUEtiapine 50 MG TAB PO SCH (21:00)
[2021-02-20] MEDS ORDERED: QUEtiapine 100 MG TAB PO SCH (21:00)
[2021-02-20] MEDS: ATORVASTATIN 20 MG TAB PO SCH (21:20)
[2021-02-21 08:19] LABS: HCT 40.6 % (39.0-53.0); HGB 12.7 gm/dL (13.0-17.5); MCH 32.9 pg (25.0-35.0); MCHC 31.4 g/dL (31.0-37.0); MCV 104.9 fL (80.0-100.0); Macrocytosis Moderate; Mean Platelet Volume 10.1; Platelet Count 120 k/uL (150-450); RBC 3.87 m/uL (4.30-5.90); WBC 2.3 k/uL (3.8-10.6)
[2021-02-21 08:28] LABS: ALT 27 U/L (4-49); AST 50 U/L (17-59); African American GFR (CKD) >90 (>60 ml/min/1.73 sqM); Albumin 3.8 g/dL (3.5-5.0); Alkaline Phosphatase 45 U/L (38-126); Anion Gap 2 mmol/L; Blood Urea Nitrogen 14 mg/dL (9-20); Calcium 9.4 mg/dL (8.4-10.2); Carbon Dioxide 29 mmol/L (22-30); Chloride 104 mmol/L (98-107); Glucose 92 mg/dL (74-99); Non-African American GFR(CKD) >90 (>60 ml/min/1.73 sqM); Sodium 135 mmol/L (137-145); Total Bilirubin 0.4 mg/dL (0.2-1.3); Total Protein 6.9 g/dL (6.3-8.2)
[2021-02-21] MEDS: ENOXAPARIN 40 MG/0.4 ML SYRINGE SQ SCH (08:56)
[2021-02-21] MEDS: CHOLECALCIFEROL 25 MCG (1000 IU) TABLET PO SCH (08:57)
[2021-02-21] MEDS: NICOTINE 14MG/24HR PATCH TRANSDERM SCH (08:57)
[2021-02-21] MEDS: ZINC SULFATE 220 MG CAP PO SCH (08:57)
[2021-02-21] MEDS: ASCORBIC ACID 500 MG TAB PO SCH (08:57)
[2021-02-21] MEDS: ASPIRIN 81 MG PO SCH (08:57)
[2021-02-21] MEDS: METOPROLOL SUCCINATE (ER) 50 MG TAB.ER.24H PO SCH (08:57)
[2021-02-21] MEDS ORDERED: VENLAFAXINE HCL ER 75 MG CAP PO SCH (09:00)
[2021-02-21 10:31] LABS: Eosinophils # (M) 0.02 k/uL (0-0.7); Monocytes # (M) 0.46 k/uL (0-1.0); Neutrophils # (M) 0.62 k/uL (1.3-7.7); Neutrophils % (M) 27 %; Nucleated Red Blood Cells 0 /100 WBC (0-0); Total Cells Counted 100
[2021-02-21 10:35] LABS: Large Platelets Present
--- NOTE | 2021-02-21 12:05 | P.PN ---
Progress Note - Text Progress Note Date: 02/21/21 Interval History: Patient was seen resting in bed and was directable and agreeable to speak with the parts data writer. The patient does report his mood continues to be low. He reports suicidal ideation. He reports that he has been expressing ongoing stressors including multiple deaths in his family. He is not reporting any homicidal ideation. He reports occasional auditory hallucinations but states that his visual disturbances have decreased. He states he had some difficulty with sleep last night and continues to report a low appetite. He has been adherent with his medications and is not endorsing any significant side effects at this time. He reports some generalized malaise but no shortness of breath or chest pain in regards to his medical symptoms related to Covid. Mental Status Exam: General Appearance: Patient appears to be stated age is alert, directable, and cooperative. Behavior: Patient is calmly lying in bed without any agitated behavior. Speech: Patient's speech is fluent and nonpressured. Mood/Affect: Mood is improving mildly, affect is congruent and withdrawn Suicidality/Homicidality: Patient endorses suicidal ideation but not homicidal ideation. Perceptions: Patient denies any visual hallucinations but endorses auditory hallucinations. Though content/process: There is no evidence of any delusional thought content and thought process is linear and goal-directed. Memory and concentration: AOX3, grossly intact for the purposes of this session Judgment and insight: Improving mildly Assessment Major depressive disorder, recurrent, severe, with psychotic features Alcohol use disorder Cocaine use disorder Nicotine dependence Plan: -Patient is admitted under voluntary status to the medical floor with psychiatry on consult due to the patient's COVID-19 positive status. -Medications : Increse Seroquel to 150 mg at bedtime for mood augmentation/hallucinations Increase Efffexor XR to 150 mg for depression -Continue 1:1 sitter -Ativan and Haldol PRN for agitation/aggression -CIWA protocol with Ativan PRN for ETOH withdrawal -Psychiatry will continue to follow along. Once patient clears Covid protocols we will have him transferred to the psychiatric unit if he continues to meet criteria. 02/20/21 13:36
--- NOTE | 2021-02-21 14:52 | PN ---
PROGRESS NOTE DATE OF SERVICE: 02/21/2021 This 60-year-old gentleman admitted with Covid 19 infection, being closely monitored. The patient's oxygen saturation is normal 100% on room air. The patient does not have any respiratory symptoms also. No chest pain. No palpitations. No fever. PHYSICAL EXAMINATION: Alert and oriented times three. Pulse 67, blood pressure 119/81, respirations 16, temperature 99.1, pulse ox 100 percent on room air. HEENT: Conjunctivae normal. Neck: No JVD. Cardiovascular: S1, S2. Respirations: Breath sounds diminished in the bases. Abdomen soft. Nervous system: No focal deficits. LABS: WBC 2.3, hemoglobin 12.7. Other labs are noted. Sodium 135. ASSESSMENT: 1. Acute suicidal and homicidal ideation, rule out psychosis. 2. Acute Covid 19 infection, positive without hypoxia or respiratory symptoms. 3. History of coronary artery disease, coronary artery bypass grafting/stents. 4. Hyperlipidemia. 5. History of DJD. 6. History of bowel resection. 7. History of cardiac stents. 8. History of bipolar, depression posttraumatic stress disorder and schizophrenia. 9. History of continued ongoing nicotine dependence. 10.Previous history of crack cocaine. 11.FULL CODE. RECOMMENDATIONS AND DISCUSSION: Continue current medications, symptomatic treatment. Otherwise, the patient is currently stable as far as Covid 19 is concerned. The patient saturating at 100%. Patient is stable for transfer to any psychiatric facility which is capable of taking over the patient. Closely work with Case Management and discharge planning team and social services director. SYBIL / OLIVIA: [id number] / [place]
[2021-02-21 15:52] LABS: Chol/HDL Ratio 1.42 Ratio; LDL Cholesterol,Calculated 41.8 mg/dL (0.0-131.0); VLDL Calculation 16.18 mg/dL (5.00-40.00)
[2021-02-21] MEDS ORDERED: QUEtiapine 50 MG TAB PO SCH (21:00)
[2021-02-21] MEDS: ATORVASTATIN 20 MG TAB PO SCH (21:13)
[2021-02-22] MEDS: ASPIRIN 81 MG PO SCH (09:06)
[2021-02-22] MEDS: ASCORBIC ACID 500 MG TAB PO SCH (09:06)
[2021-02-22] MEDS: ENOXAPARIN 40 MG/0.4 ML SYRINGE SQ SCH (09:06)
[2021-02-22] MEDS: CHOLECALCIFEROL 25 MCG (1000 IU) TABLET PO SCH (09:06)
[2021-02-22] MEDS: NICOTINE 14MG/24HR PATCH TRANSDERM SCH (09:07)
[2021-02-22] MEDS: METOPROLOL SUCCINATE (ER) 50 MG TAB.ER.24H PO SCH (09:07)
[2021-02-22] MEDS: ZINC SULFATE 220 MG CAP PO SCH (09:07)
[2021-02-22] MEDS: HYDROcodone/APAP 5-325MG 1 EACH TAB PO PRN ×3 (09:07→23:05)
[2021-02-22] MEDS: VENLAFAXINE HCL ER 150 MG CAP PO SCH (09:07)
--- NOTE | 2021-02-22 14:14 | P.PN ---
Progress Note - Text Progress Note Date: 02/22/21 Interval History: Patient was seen resting in bed and was directable and agreeable to speak with the remote mortgage underwriter. Patient reports mild improvement from yesterday. He states he continues to have suicidal thoughts but they are improving. He reports his hallucinations have decreased. He states he continues to feel depressed but that it is also improving as made evident by an increased appetite. He is adherent with his medications and is not endorsing any significant side effects at this t [facility]. Mental Status Exam: General Appearance: Patient appears to be stated age is alert, directable, and cooperative. Behavior: Patient is calmly lying in bed without any agitated behavior. Speech: Patient's speech is fluent and nonpressured. Mood/Affect: Mood is improving mildly, affect is congruent and withdrawn Suicidality/Homicidality: Patient endorses suicidal ideation but not homicidal ideation. Perceptions: Patient denies any visual hallucinations but endorses auditory hallucinations. Though content/process: There is no evidence of any delusional thought content and thought process is linear and goal-directed. Memory and concentration: AOX3, grossly intact for the purposes of this session Judgment and insight: Improving mildly Vital Signs Temp 97.1 F L 02/22/21 08:00 Pulse 59 L 02/22/21 08:00 Resp 17 02/22/21 08:00 BP 111/68 02/22/21 08:00 Pulse Ox 98 02/22/21 08:00 Intake & Output 02/21/21 02/22/21 02/22/21 18:59 06:59 18:59 Intake Total 500 Output Total 375 Balance 500 -375 Intake: Oral 500 Output: Urine 375 Other: # Voids 4 4 Laboratory Results - Last 24 Hours 02/21/21 07:46 Triglycerides 80.90 Cholesterol 197.00 LDL Cholesterol, Calc 41.8 VLDL Cholesterol, Calc 16.18 HDL Cholesterol 139.00 H Cholesterol/HDL Ratio 1.42 Assessment Major depressive disorder, recurrent, severe, with psychotic features Alcohol use disorder Cocaine use disorder Nicotine dependence Plan: -Patient is admitted under voluntary status to the medical floor with psychiatry on consult due to the patient's COVID-19 positive status. -Medications : Increse Seroquel to 200 mg at bedtime for mood augmentation/hallucinations Continue Efffexor XR 150 mg for depression -Continue 1:1 sitter -Ativan and Haldol PRN for agitation/aggression -CIWA protocol with Ativan PRN for ETOH withdrawal -Psychiatry will continue to follow along. Once patient clears Covid protocols we will have him transferred to the psychiatric unit if he continues to meet criteria. 02/20/21 13:36
--- NOTE | 2021-02-22 15:34 | PN ---
PROGRESS NOTE DATE OF SERVICE: 02/22/2021 This 60-year-old gentleman who was admitted with acute suicidal and homicidal ideation also has Covid 19 positive. However, the patient is not hypoxic. Patient is not symptomatic. No chest pain. No palpitations. No fever. PHYSICAL EXAMINATION: Alert and oriented times three. Pulse 59, blood pressure 111/60, respirations 17, temperature 97.1, pulse ox 93% on room air. HEENT: Conjunctivae normal. Neck if no JVD. Cardiovascular: S1, S2 muffled. Respirations: Breath sounds diminished in the bases. Abdomen soft. Nervous system: No focal deficits. LAB STUDIES: WBC 3.3, hemoglobin is 12.7, sodium is 130. Other labs are noted. HDL is 139. ASSESSMENT: 1. Acute suicidal and homicidal ideation, rule out psychosis. 2. Acute Covid 19 infection positive without any hypoxia or other respiratory symptoms. 3. History of coronary artery disease, coronary artery bypass grafting, stent. 4. Hyperlipidemia. 5. History of degenerative joint disease. 6. History of bowel resection. 7. History of cardiac stents. 8. History of bipolar, depression posttraumatic stress disorder and as well schizophrenia. 9. History of continued ongoing nicotine dependence. 10.Previous history of crack cocaine. 11.FULL CODE. RECOMMENDATIONS AND DISCUSSION: Continue current medications, management and symptomatic treatment. Continue observation. Otherwise, the patient basically needs psychiatric treatment and followup also. Recommend follow up with primary physician in the outpatient setting. Covid 19 is stable. MMODL / IJN: [id number] /
[2021-02-22] MEDS: ATORVASTATIN 20 MG TAB PO SCH (20:03)
[2021-02-22] MEDS: QUEtiapine 200 MG TAB PO SCH (21:27)
[2021-02-23] MEDS: METOPROLOL SUCCINATE (ER) 50 MG TAB.ER.24H PO SCH (08:55)
[2021-02-23] MEDS: ASCORBIC ACID 500 MG TAB PO SCH (08:55)
[2021-02-23] MEDS: ENOXAPARIN 40 MG/0.4 ML SYRINGE SQ SCH (08:55)
[2021-02-23] MEDS: NICOTINE 14MG/24HR PATCH TRANSDERM SCH (08:55)
[2021-02-23] MEDS: VENLAFAXINE HCL ER 150 MG CAP PO SCH (08:55)
[2021-02-23] MEDS: ZINC SULFATE 220 MG CAP PO SCH (08:55)
[2021-02-23] MEDS: CHOLECALCIFEROL 25 MCG (1000 IU) TABLET PO SCH (08:55)
[2021-02-23] MEDS: ASPIRIN 81 MG PO SCH (08:55)
[2021-02-23] MEDS: HYDROcodone/APAP 5-325MG 1 EACH TAB PO PRN ×2 (09:01→18:57)
--- NOTE | 2021-02-23 19:15 | PN ---
PROGRESS NOTE DATE OF SERVICE: 02/23/2021 This 60-year-old gentleman who was admitted with acute suicidal ideation and Covid-19 possibly is being closely monitored. No chest pain. No palpitations. No fever. PHYSICAL EXAMINATION: Alert and oriented. Pulse 65, blood pressure 106/70, respirations 17, temperature 98.2, pulse ox 98% on room air. HEENT: Conjunctivae normal. Oral mucosa moist. NECK: No jugular venous distention. No lymph node enlargement. CARDIOVASCULAR: S1, S2, muffled. No S3, no S4, RESPIRATORY: Diminished breath sounds at the bases. A few scattered rhonchi. ABDOMEN: Soft, nontender. LEGS: No edema, no swelling. NERVOUS SYSTEM: No focal deficits. LABS: WBC 22, hemoglobin 12.7, sodium 134. Other labs noted. ASSESSMENT: 1. Acute suicidal and homicidal ideations, rule out psychosis. 2. Acute Covid-19 infection without any hypoxia or other respiratory symptoms. 3. History of CAD, CABG. 4. Hyperlipidemia. 5. History of degenerative joint disease. 6. Mild leukopenia and anemia. 7. Increased MCV. 8. Mild thrombocytopenia. 9. History of bowel resection. 10.History of cardiac stents. 11.History of bipolar, depression, posttraumatic stress disorder as well as schizophrenia. 12.History of continued ongoing nicotine dependence. 13.Previous history of back pain. 14.FULL CODE. RECOMMENDATIONS: Recommend to continue current management, continue symptomatic treatment. Otherwise, I would recommend repeat labs tomorrow, repeat CBC. Otherwise, closely follow with Psychiatry and Social Work Case Management Team. Once the patient has a place to be transferred, the patient is ready to be discharged from the medical point of view for further psych evaluation and treatment. MMODL / IJN: [id number] /
[2021-02-23] MEDS: QUEtiapine 200 MG TAB PO SCH (20:47)
[2021-02-23] MEDS: ATORVASTATIN 20 MG TAB PO SCH (20:47)
[2021-02-24] MEDS: HYDROcodone/APAP 5-325MG 1 EACH TAB PO PRN ×2 (06:12→16:23)
[2021-02-24] MEDS: METOPROLOL SUCCINATE (ER) 50 MG TAB.ER.24H PO SCH (09:06)
[2021-02-24] MEDS: VENLAFAXINE HCL ER 150 MG CAP PO SCH (09:06)
[2021-02-24] MEDS: ZINC SULFATE 220 MG CAP PO SCH (09:06)
[2021-02-24] MEDS: CHOLECALCIFEROL 25 MCG (1000 IU) TABLET PO SCH (09:06)
[2021-02-24] MEDS: NICOTINE 14MG/24HR PATCH TRANSDERM SCH ×2 (09:06→09:09)
[2021-02-24] MEDS: ASPIRIN 81 MG PO SCH (09:06)
[2021-02-24] MEDS: ENOXAPARIN 40 MG/0.4 ML SYRINGE SQ SCH (09:07)
[2021-02-24] MEDS: ASCORBIC ACID 500 MG TAB PO SCH (10:06)
[2021-02-24 12:43] LABS: HCT 38.9 % (39.6-50.0); HGB 12.4 g/dL (13.0-17.0); MCH 31.7 pg (27.0-32.0); MCHC 31.9 g/dL (32.0-37.0); MCV 99.5 fL (80.0-97.0); Mean Platelet Volume 12.2 fL (9.5-12.2); Platelet Count 122 X 10*3/uL (140-440); RBC 3.91 X 10*6/uL (4.40-5.60); RDW 14.1 % (11.5-14.5); WBC 2.56 X 10*3/uL (4.50-10.00)
[2021-02-24 13:41] LABS: Basophils # (A) 0.01 X 10*3/uL (0.00-0.10); Basophils % (A) 0.4 %; Eosinophils # (A) 0.02 X 10*3/uL (0.04-0.35); Eosinophils % (A) 0.8 %; Lymphocytes # (A) 1.43 X 10*3/uL (0.90-5.00); Lymphocytes % (A) 55.9 %; Monocytes # (A) 0.45 X 10*3/uL (0.20-1.00); Monocytes % (A) 17.6 %; Neutrophils # (A) 0.64 X 10*3/uL (1.80-7.70); Neutrophils % (A) 24.9 %
--- NOTE | 2021-02-24 18:21 | PN ---
PROGRESS NOTE DATE OF SERVICE: 02/24/2021 This 60-year-old gentleman admitted with homicidal and suicidal ideation also had COVID positive. The patient is not symptomatic or hypoxic. No chest pain. No palpitations. No fever. PHYSICAL EXAMINATION: Alert and oriented x3. Pulse 59, blood pressure 105/70, respirations 16, temperature 98.2, pulse ox 98% on room air. HEENT: Conjunctivae normal. Oral mucosa moist. NECK: No jugular venous distention. No lymph node enlargement. CARDIOVASCULAR: S1, S2, muffled. No S3, no S4, RESPIRATORY: Diminished breath sounds at the bases. A few scattered rhonchi. ABDOMEN: Soft, nontender. LEGS: No edema, no swelling. NERVOUS SYSTEM: No focal deficits. LABS: WBC 2.96 and hemoglobin 12.4. Sodium is 135. ASSESSMENT: 1. Acute suicidal, homicidal ideations, rule out psychosis. 2. Acute COVID-19 infection without hypoxia or other respiratory symptoms. 3. History of CAD, CABG. 4. History of mild pancytopenia. 5. Hyperlipidemia. 6. History of degenerative joint disease. 7. Mild leukopenia and anemia. 8. Increased MCV. 9. History of bowel resection. 10.History of cardiac stents. 11.History of bipolar depression, posttraumatic stress disorder as well as schizophrenia. 12.History of ongoing nicotine dependence. 13.Previous history of back pain. 14.FULL CODE. RECOMMENDATIONS: Recommend to continue current management, continue symptomatic treatment. Otherwise, at this time recommend repeat labs, CBC, and closely follow with Psychiatry. Patient is medically stable for transfer to any psych facility at this time. MMODL / IJN: [id number] /
[2021-02-24] MEDS: ATORVASTATIN 20 MG TAB PO SCH (21:00)
[2021-02-24] MEDS: QUEtiapine 200 MG TAB PO SCH (21:00)
[2021-02-25] MEDS: METOPROLOL SUCCINATE (ER) 50 MG TAB.ER.24H PO SCH (08:43)
[2021-02-25] MEDS: NICOTINE 14MG/24HR PATCH TRANSDERM SCH (08:45)
[2021-02-25] MEDS: ZINC SULFATE 220 MG CAP PO SCH (08:45)
[2021-02-25] MEDS: VENLAFAXINE HCL ER 150 MG CAP PO SCH (08:45)
[2021-02-25] MEDS: ASPIRIN 81 MG PO SCH (08:45)
[2021-02-25] MEDS: ASCORBIC ACID 500 MG TAB PO SCH (08:45)
[2021-02-25] MEDS: CHOLECALCIFEROL 25 MCG (1000 IU) TABLET PO SCH (08:45)
[2021-02-25] MEDS: ENOXAPARIN 40 MG/0.4 ML SYRINGE SQ SCH (08:46)
[2021-02-25] MEDS: HYDROcodone/APAP 5-325MG 1 EACH TAB PO PRN ×2 (08:52→20:28)
[2021-02-25 11:35] LABS: Basophils # (A) 0.01 X 10*3/uL (0.00-0.10); Basophils % (A) 0.3 %; Eosinophils # (A) 0.04 X 10*3/uL (0.04-0.35); Eosinophils % (A) 1.4 %; HCT 38.5 % (39.6-50.0); HGB 12.2 g/dL (13.0-17.0); Lymphocytes # (A) 1.58 X 10*3/uL (0.90-5.00); Lymphocytes % (A) 55.1 %; MCH 31.8 pg (27.0-32.0); MCHC 31.7 g/dL (32.0-37.0); MCV 100.3 fL (80.0-97.0); Monocytes # (A) 0.45 X 10*3/uL (0.20-1.00); Monocytes % (A) 15.7 %; Neutrophils # (A) 0.78 X 10*3/uL (1.80-7.70); Neutrophils % (A) 27.2 %; Platelet Count 121 X 10*3/uL (140-440); RBC 3.84 X 10*6/uL (4.40-5.60); WBC 2.87 X 10*3/uL (4.50-10.00)
--- NOTE | 2021-02-25 13:58 | P.PN ---
Progress Note - Text Progress Note Date: 02/25/21 Interval History: Patient was seen resting in bed and was directable and agreeable to speak with the internal communications writer. Patient is endorsing auditory hallucinations and suicidal ideation. He reports that the voices were very bad last night and caused him to have difficult time falling asleep. Furthermore, the patient reports that his depression has been worse with auditory hallucinations and that his appetite has decreased significantly. He states that he has only been able to pick at his food is notable today as his lunch tray next to him has been barely touched. He was informed that he would clear order calls for the psychiatric unit on March 01 and was asked if he would feel safe to return home and if she felt suicidal, but come back to the hospital at that time, however, the patient reported that he does not feel well at all and is concerned for his safety if he was to return home. He becomes tearful during the interview. Mental Status Exam: General Appearance: Patient appears to be stated age is alert, directable, and cooperative. Behavior: Patient is calmly lying in bed without any agitated behavior. Speech: Patient's speech is fluent and nonpressured. Mood/Affect: Mood is improving mildly, affect is congruent and withdrawn and tearful. Suicidality/Homicidality: Patient endorses suicidal ideation but not homicidal ideation. Perceptions: Patient denies any visual hallucinations but endorses auditory hallucinations. Though content/process: There is no evidence of any delusional thought content and thought process is linear and goal-directed. Memory and concentration: AOX3, grossly intact for the purposes of this session Judgment and insight: Improving mildly Assessment Major depressive disorder, recurrent, severe, with psychotic features Alcohol use disorder Cocaine use disorder Nicotine dependence Plan: -Patient is admitted under voluntary status to the medical floor with psychiatry on consult due to the patient's COVID-19 positive status. Patient would clear protocols on 03/01/2021. -Medications : Increse Seroquel to 250 mg at bedtime for mood augmentation/hallucinations Continue Efffexor XR 150 mg for depression -Continue 1:1 sitter -Ativan and Haldol PRN for agitation/aggression -Psychiatry will continue to follow along. Once patient clears Covid protocols we will have him transferred to the psychiatric unit if he continues to meet criteria.
[2021-02-25] MEDS: ATORVASTATIN 20 MG TAB PO SCH (20:29)
[2021-02-25] MEDS ORDERED: QUEtiapine 100 MG TAB PO SCH (21:00)
--- NOTE | 2021-02-26 01:11 | P.PN ---
Subjective Progress Note Date: 02/25/21 This is a 60-year-old male recently admitted with homicidal and suicidal ideation and is being closely monitored. Patient was also found to be covid 19 positive and experiencing no respiratory symptoms. Patient does have suicide sitter at the bedside and will continue. Patient continues to endorse thoughts of suicide on occasion. Patient does have CIWA protocol as needed and has not exhibited any signs of withdrawal. Labs: WBC is 2.87, hemoglobin is 12.2, platelet are 121 Review of systems: Constitutional: reports of fatigue, no reports of fever, or chills Cardiovascular: No reports of chest pain or palpitations Respiratory: No reports of shortness of breath or cough GI: No reports of nausea, vomiting, or diarrhea, reports continued decreased appetite : No reports of dysuria or retention Neurovascular: No reports of weakness or numbness All medications have been reviewed Active Medications Acetaminophen (Acetaminophen Tab 325 Mg Tab) 650 mg PO Q4HR PRN PRN Reason: Pain/Discomfort Hydrocodone Bitart/Acetaminophen (Hydrocodone/Apap 5-325mg 1 Each Tab) 1 each PO Q6HR PRN PRN Reason: Pain Last Admin: 02/25/21 08:52 Dose: 1 each Documented by: Al Hydroxide/Mg Hydroxide (Mag Hydrox/Al Hydrox/Simeth 30 Ml Cup) 30 ml PO Q4HR PRN PRN Reason: GI Upset Ascorbic Acid (Ascorbic Acid 500 Mg Tab) 500 mg PO DAILY [facility] Last Admin: 02/25/21 08:45 Dose: 500 mg Documented by: Aspirin (Aspirin 81 Mg) 81 mg PO DAILY [facility] Last Admin: 02/25/21 08:45 Dose: 81 mg Documented by: Atorvastatin Calcium (Atorvastatin 20 Mg Tab) 20 mg PO HS [facility] Last Admin: 02/24/21 21:00 Dose: 20 mg Documented by: Cholecalciferol (Cholecalciferol 25 Mcg (1000 Iu) Tablet) 25 mcg PO DAILY [facility] Last Admin: 02/25/21 08:45 Dose: 25 mcg Documented by: Enoxaparin Sodium (Enoxaparin 40 Mg/0.4 Ml Syringe) 40 mg SQ DAILY [facility] Last Admin: 02/25/21 08:46 Dose: 40 mg Documented by: Haloperidol (Haloperidol 5 Mg Tab) 5 mg PO Q6HR PRN PRN Reason: Agitation or Acute Psychosis Haloperidol Lactate (Haloperidol Lactate 5 Mg/Ml 1 Ml Vial) 5 mg IM Q6HR PRN PRN Reason: Agitation or Acute Psychosis Ibuprofen (Ibuprofen 800 Mg Tab) 800 mg PO Q8H PRN PRN Reason: Pain or Fever > 100.5 Last Admin: 02/22/21 21:26 Dose: 800 mg Documented by: Lorazepam (Lorazepam 1 Mg Tab) 1 mg PO TID PRN PRN Reason: Anxiety, Agitation Last Admin: 02/22/21 12:49 Dose: 1 mg Documented by: Lorazepam (Lorazepam 2 Mg/Ml Inj) 1 mg IM TID PRN PRN Reason: Agitation or Acute Anxiety Last Admin: 02/20/21 06:19 Dose: 1 mg Documented by: Magnesium Hydroxide (Magnesium Hydroxide 2,400 Mg/10 Ml Cup) 2,400 mg PO DAILY PRN PRN Reason: Constipation Metoprolol Succinate (Metoprolol Succinate (Er) 50 Mg Tab.Er.24h) 50 mg PO DAILY [facility] Last Admin: 02/25/21 08:43 Dose: Not Given Documented by: Nicotine (Nicotine 14mg/24hr Patch) 1 patch TRANSDERM DAILY [facility] Last Admin: 02/25/21 08:45 Dose: 1 patch Documented by: Quetiapine Fumarate (Quetiapine 100 Mg Tab) 250 mg PO [facility] Venlafaxine HCl (Venlafaxine Hcl Er 150 Mg Cap) 150 mg PO DAILY [facility] Last Admin: 02/25/21 08:45 Dose: 150 mg Documented by: Zinc Sulfate (Zinc Sulfate 220 Mg Cap) 220 mg PO DAILY [facility] Last Admin: 02/25/21 08:45 Dose: 220 mg Documented by: Physical Exam: Gen: This is 60-year-old male, alert and oriented 3. Temp is 97.6F, pulse is 58, respirations are 18, arterial blood pressure is 104/69, oxygen saturation is 97% on room air HEENT: Head is atraumatic, normocephalic. Pupils equal, round. Sclerae is anicteric. NECK: Supple. No JVD. No lymphadenopathy. No thyromegaly. subcutaneous emphysema noted in the neck and chest wall area bilaterally. LUNGS: Diminished breath sounds bilaterally with no wheezing or rhonchi noted. No intercostal retractions. HEART: S1, S2 are muffled ABDOMEN: Soft. Bowel sounds are present. No masses. No tenderness. EXTREMITIES: No pedal edema. No calf tenderness. NEUROLOGICAL: Patient is awake, alert and oriented 3, no focal deficit noted Assessment: Acute suicidal, homicidal ideations, rule out psychosis Acute COVID-19 infection without hypoxia or other respiratory symptoms History of coronary artery disease, CABG History of mild pancytopenia Hyperlipidemia History of degenerative joint disease Mild leukopenia and anemia Increased MCV History of bowel resection History of cardiac stents history of bipolar depression, posttraumatic stress disorder as well as schizophrenia History of ongoing nicotine dependence Previous history of back pain Full code Plan: Recommend to continue with current medications and follow along closely with multiple medical consultations. Patient continues to endorse feelings of suicide and will continue with suicide sitter at the bedside. Psychiatry following and will transfer to psych unit for further psychiatric evaluation once cleared medically. Patient is medically stable and clear for transfer to psych although per infection prevention and Dr. Vieira, policy states the patient is to continue with precautions for covid for a total of 10 days prior to going on the psych unit. Patient to continue on medical floor until 03/01/2021. Patient being closely monitored and will continue with vitamin and zinc supplements. Patient denies any shortness of breath and is on room air. Prognosis remains guarded with multiple complex medical issues noted. Continue with suicide precautions. Objective - Vital Signs Vital signs: Vital Signs Temp 97.6 F 02/25/21 08:53 Pulse 58 L 02/25/21 08:53 Resp 18 02/25/21 08:53 BP 104/69 02/25/21 08:53 Pulse Ox 97 02/25/21 08:53 Intake & Output 02/24/21 02/25/21 02/25/21 18:59 06:59 18:59 Other: Voiding Method Urinal # Voids 3 2 - Labs CBC & Chem 7: 02/25/21 06:56 02/21/21 07:46 Labs: Abnormal Lab Results - Last 24 Hours (Table) 02/24/21 02/25/21 Range/Units 06:57 06:56 WBC 2.87 L (4.50-10.00) X 10*3/uL RBC 3.84 L (4.40-5.60) X 10*6/uL Hgb 12.2 L (13.0-17.0) g/dL Hct 38.5 L (39.6-50.0) % MCV 100.3 H (80.0-97.0) fL MCHC 31.7 L (32.0-37.0) g/dL Plt Count 121 L (140-440) X 10*3/uL Plt Count Comment DECREASED A Neutrophils # 0.64 L 0.78 L (1.80-7.70) X 10*3/uL Eosinophils # 0.02 L (0.04-0.35) X 10*3/uL
[2021-02-26] MEDS: ENOXAPARIN 40 MG/0.4 ML SYRINGE SQ SCH (09:06)
[2021-02-26] MEDS: VENLAFAXINE HCL ER 150 MG CAP PO SCH (09:07)
[2021-02-26] MEDS: ASPIRIN 81 MG PO SCH (09:07)
[2021-02-26] MEDS: ZINC SULFATE 220 MG CAP PO SCH (09:07)
[2021-02-26] MEDS: METOPROLOL SUCCINATE (ER) 50 MG TAB.ER.24H PO SCH (09:07)
[2021-02-26] MEDS: ASCORBIC ACID 500 MG TAB PO SCH (09:07)
[2021-02-26] MEDS: CHOLECALCIFEROL 25 MCG (1000 IU) TABLET PO SCH (09:07)
[2021-02-26] MEDS: HYDROcodone/APAP 5-325MG 1 EACH TAB PO PRN ×2 (09:12→20:04)
[2021-02-26] MEDS: NICOTINE 14MG/24HR PATCH TRANSDERM SCH (09:12)
[2021-02-26 10:27] LABS: African American GFR (CKD) >90 (>60 ml/min/1.73 sqM); Anion Gap 4 mmol/L; Blood Urea Nitrogen 15 mg/dL (9-20); Calcium 9.5 mg/dL (8.4-10.2); Carbon Dioxide 27 mmol/L (22-30); Chloride 103 mmol/L (98-107); Glucose 104 mg/dL (74-99); Non-African American GFR(CKD) >90 (>60 ml/min/1.73 sqM); Potassium 4.2 mmol/L (3.5-5.1); Sodium 134 mmol/L (137-145)
--- NOTE | 2021-02-26 13:49 | P.PN ---
Progress Note - Text Progress Note Date: 02/26/21 Interval History: Patient was seen resting in bed and was directable and agreeable to speak with the promotion writer. Patient does report an improvement in his mood. He rates his depression 6/10 in severity with 10 being severe however states his suicidal thoughts have decreased significantly and reports he feels safe without a sitter. He continues to report auditory hallucinations that are debilitating for him. He denies any command-type hallucinations but reports that they often tell him negative things. He continues to desire inpatient psychiatric placement. He has been adherent with the medications and reports no significant side effects at this time. Mental Status Exam: General Appearance: Patient appears to be stated age is alert, directable, and cooperative. Behavior: Patient is calmly lying in bed without any agitated behavior. Speech: Patient's speech is fluent and nonpressured. Mood/Affect: Mood is improving mildly, affect is congruent and blunted. Suicidality/Homicidality: Patient reports no suicidal or homicidal ideation. Perceptions: Patient denies any visual hallucinations but endorses auditory hallucinations. Though content/process: There is no evidence of any delusional thought content and thought process is linear and goal-directed. Memory and concentration: AOX3, grossly intact for the purposes of this session Judgment and insight: Improving mildly Vital Signs Temp 98.7 F 02/26/21 09:38 Pulse 80 02/26/21 09:38 Resp 14 02/26/21 09:38 BP 106/73 02/26/21 09:38 Pulse Ox 97 02/26/21 09:38 Intake & Output 02/25/21 02/26/21 02/26/21 18:59 06:59 18:59 Intake Total 500 400 Balance 500 400 Intake: Oral 500 400 Other: Voiding Method Urinal Urinal # Voids 2 # Bowel Movements 1 Laboratory Results - Last 24 Hours 02/26/21 09:49 Sodium 134 L Potassium 4.2 Chloride 103 Carbon Dioxide 27 Anion Gap 4 BUN 15 Creatinine 0.83 Est GFR (CKD-EPI)AfAm >90 Est GFR (CKD-EPI)NonAf >90 Glucose 104 H Calcium 9.5 Assessment Major depressive disorder, recurrent, severe, with psychotic features Alcohol use disorder Cocaine use disorder Nicotine dependence Plan: -Patient is admitted under voluntary status to the medical floor with psychiatry on consult due to the patient's COVID-19 positive status. Patient would clear protocols on 03/01/2021. -Medications : Increse Seroquel to 300 mg at bedtime for mood augmentation/hallucinations Continue Efffexor XR 150 mg for depression -Discontinue 1:1 sitter - patient reports he feels safe without a sitter. -Ativan and Haldol PRN for agitation/aggression -Psychiatry will continue to follow along. Once patient clears Covid protocols we will have him transferred to the psychiatric unit if he continues to meet criteria.
[2021-02-26 13:58] VITALS: BMI 23.6
--- NOTE | 2021-02-26 15:58 | P.PN ---
Subjective Progress Note Date: 02/26/21 This is a 60-year-old male recently admitted with homicidal and suicidal ideation and is being closely monitored. Patient was also found to be covid 19 positive and experiencing no respiratory symptoms. Patient does have suicide sitter at the bedside and will continue. Patient continues to endorse thoughts of suicide on occasion. Patient does have CIWA protocol as needed and has not exhibited any signs of withdrawal. 02/26/2021 Patient is seen in follow-up with no acute overnight issues. Patient continues with suicide sitter at the bedside with psychiatry following closely. Per hospital policy patient is to be in 10 days of quarantine due to his Covid positive status prior to going to the psych facility for further psychiatric evaluation. Patient denies any chest pain or shortness of breath and patient is tolerating diet. Patient needs encouragement and he is not eating very much and states he does not have much of an appetite. Encourage the patient to increase activity as tolerated. Labs: Sodium is 134, potassium is 4.2, BUN is 15, creatinine is 0.83, calcium is 9.5 Review of systems: Constitutional: reports of fatigue, no reports of fever, or chills Cardiovascular: No reports of chest pain or palpitations Respiratory: No reports of shortness of breath or cough GI: No reports of nausea, vomiting, or diarrhea, reports continued decreased appetite : No reports of dysuria or retention Neurovascular: No reports of weakness or numbness All medications have been reviewed Active Medications Acetaminophen (Acetaminophen Tab 325 Mg Tab) 650 mg PO Q4HR PRN PRN Reason: Pain/Discomfort Hydrocodone Bitart/Acetaminophen (Hydrocodone/Apap 5-325mg 1 Each Tab) 1 each PO Q6HR PRN PRN Reason: Pain Last Admin: 02/26/21 09:12 Dose: 1 each Documented by: Al Hydroxide/Mg Hydroxide (Mag Hydrox/Al Hydrox/Simeth 30 Ml Cup) 30 ml PO Q4HR PRN PRN Reason: GI Upset Ascorbic Acid (Ascorbic Acid 500 Mg Tab) 500 mg PO DAILY [facility] Last Admin: 02/26/21 09:07 Dose: 500 mg Documented by: Aspirin (Aspirin 81 Mg) 81 mg PO DAILY [facility] Last Admin: 02/26/21 09:07 Dose: 81 mg Documented by: Atorvastatin Calcium (Atorvastatin 20 Mg Tab) 20 mg PO [facility] Last Admin: 02/25/21 20:29 Dose: 20 mg Documented by: Cholecalciferol (Cholecalciferol 25 Mcg (1000 Iu) Tablet) 25 mcg PO DAILY [facility] Last Admin: 02/26/21 09:07 Dose: 25 mcg Documented by: Enoxaparin Sodium (Enoxaparin 40 Mg/0.4 Ml Syringe) 40 mg SQ DAILY [facility] Last Admin: 02/26/21 09:06 Dose: 40 mg Documented by: Haloperidol (Haloperidol 5 Mg Tab) 5 mg PO Q6HR PRN PRN Reason: Agitation or Acute Psychosis Haloperidol Lactate (Haloperidol Lactate 5 Mg/Ml 1 Ml Vial) 5 mg IM Q6HR PRN PRN Reason: Agitation or Acute Psychosis Ibuprofen (Ibuprofen 800 Mg Tab) 800 mg PO Q8H PRN PRN Reason: Pain or Fever > 100.5 Last Admin: 02/22/21 21:26 Dose: 800 mg Documented by: Lorazepam (Lorazepam 1 Mg Tab) 1 mg PO TID PRN PRN Reason: Anxiety, Agitation Last Admin: 02/22/21 12:49 Dose: 1 mg Documented by: Lorazepam (Lorazepam 2 Mg/Ml Inj) 1 mg IM TID PRN PRN Reason: Agitation or Acute Anxiety Last Admin: 02/20/21 06:19 Dose: 1 mg Documented by: Magnesium Hydroxide (Magnesium Hydroxide 2,400 Mg/10 Ml Cup) 2,400 mg PO DAILY PRN PRN Reason: Constipation Metoprolol Succinate (Metoprolol Succinate (Er) 50 Mg Tab.Er.24h) 50 mg PO DAILY [facility] Last Admin: 02/26/21 09:07 Dose: 50 mg Documented by: Nicotine (Nicotine 14mg/24hr Patch) 1 patch TRANSDERM DAILY [facility] Last Admin: 02/26/21 09:12 Dose: Not Given Documented by: Quetiapine Fumarate (Quetiapine 100 Mg Tab) 300 mg PO [facility] Venlafaxine HCl (Venlafaxine Hcl Er 150 Mg Cap) 150 mg PO DAILY [facility] Last Admin: 02/26/21 09:07 Dose: 150 mg Documented by: Zinc Sulfate (Zinc Sulfate 220 Mg Cap) 220 mg PO DAILY [facility] Last Admin: 02/26/21 09:07 Dose: 220 mg Documented by: Physical Exam: Gen: This is 60-year-old male, alert and oriented 3. Temp is 98.4F, pulse is 67, respirations are 16, arterial blood pressure is 98/66, oxygen saturation is 98% on room air HEENT: Head is atraumatic, normocephalic. Pupils equal, round. Sclerae is anicteric. NECK: Supple. No JVD. No lymphadenopathy. No thyromegaly. subcutaneous emphysema noted in the neck and chest wall area bilaterally. LUNGS: Diminished breath sounds bilaterally with no wheezing or rhonchi noted. No intercostal retractions. HEART: S1, S2 are muffled ABDOMEN: Soft. Bowel sounds are present. No masses. No tenderness. EXTREMITIES: No pedal edema. No calf tenderness. NEUROLOGICAL: Patient is awake, alert and oriented 3, no focal deficit noted Assessment: Acute suicidal, homicidal ideations, rule out psychosis Acute COVID-19 infection without hypoxia or other respiratory symptoms History of coronary artery disease, CABG History of mild pancytopenia Hyperlipidemia History of degenerative joint disease Mild leukopenia and anemia Increased MCV History of bowel resection History of cardiac stents history of bipolar depression, posttraumatic stress disorder as well as schizophrenia History of ongoing nicotine dependence Previous history of back pain Full code Plan: Recommend to continue with current medications and follow along closely with multiple medical consultations. Patient continues to endorse feelings of suicide and will continue with suicide sitter at the bedside. Psychiatry following and will transfer to psych unit for further psychiatric evaluation once cleared medically. Patient is medically stable and clear for transfer to psych although per infection prevention and Dr. Vieira, policy states the patient is to continue with precautions for covid for a total of 10 days prior to going on the psych unit. Patient to continue on medical floor until 03/01/2021. Patient being closely monitored and will continue with vitamin and zinc supplements. Patient denies any shortness of breath and is on room air. BMP today within normal limits. Prognosis remains guarded with multiple complex medical issues noted. Continue with suicide precautions. Objective - Vital Signs Vital signs: Vital Signs Temp 98.4 F 02/26/21 06:00 Pulse 67 02/26/21 07:25 Resp 16 02/26/21 07:25 BP 98/66 02/26/21 06:00 Pulse Ox 98 02/26/21 06:00 Intake & Output 02/25/21 02/26/21 02/26/21 18:59 06:59 18:59 Intake Total 500 400 Balance 500 400 Intake: Oral 500 400 Other: Voiding Method Urinal Urinal # Voids 2 # Bowel Movements 1 - Labs CBC & Chem 7: 02/25/21 06:56 02/26/21 09:49 Labs: Abnormal Lab Results - Last 24 Hours (Table) 02/25/21 Range/Units 06:56 WBC 2.87 L (4.50-10.00) X 10*3/uL RBC 3.84 L (4.40-5.60) X 10*6/uL Hgb 12.2 L (13.0-17.0) g/dL Hct 38.5 L (39.6-50.0) % MCV 100.3 H (80.0-97.0) fL MCHC 31.7 L (32.0-37.0) g/dL Plt Count 121 L (140-440) X 10*3/uL Neutrophils # 0.78 L (1.80-7.70) X 10*3/uL
[2021-02-26] MEDS: ATORVASTATIN 20 MG TAB PO SCH (20:01)
[2021-02-26] MEDS ORDERED: QUEtiapine 100 MG TAB PO SCH (21:00)
[2021-02-27] MEDS: NICOTINE 14MG/24HR PATCH TRANSDERM SCH (07:26)
[2021-02-27] MEDS: ASPIRIN 81 MG PO SCH (07:55)
[2021-02-27] MEDS: HYDROcodone/APAP 5-325MG 1 EACH TAB PO PRN (07:55)
[2021-02-27] MEDS: CHOLECALCIFEROL 25 MCG (1000 IU) TABLET PO SCH (07:55)
[2021-02-27] MEDS: ZINC SULFATE 220 MG CAP PO SCH (07:55)
[2021-02-27] MEDS: METOPROLOL SUCCINATE (ER) 50 MG TAB.ER.24H PO SCH (07:55)
[2021-02-27] MEDS: VENLAFAXINE HCL ER 150 MG CAP PO SCH (07:55)
[2021-02-27] MEDS: ASCORBIC ACID 500 MG TAB PO SCH (07:56)
[2021-02-27] MEDS: ENOXAPARIN 40 MG/0.4 ML SYRINGE SQ SCH (07:56)
[2021-02-27 10:48] VITALS: BP 96/63; PULSE 58; RESP 14; TEMP 98.6
--- NOTE | 2021-02-27 11:26 | P.PN ---
Progress Note - Text Progress Note Date: 02/27/21 Interval History: Patient was seen resting in bed and was directable and agreeable to speak with the mortgage or loan underwriter. Patient reports that he is feeling significantly better today. His current reporting any suicidal or homicidal ideation. He remains future oriented. He is expressing desire for discharge. He is not reporting any firearms or weapons. He reports no auditory or visual hallucinations in the last 24 hours. He is not expressing any side effects from his medications and has been adherent. This counseling on the importance of abstaining from all substances that are psychoactive that have previously caused him problems before. His furthermore counseled on the importance of medication adherence and appropriate follow-up with his outpatient appointments. Mental Status Exam: General Appearance: Patient appears to be stated age is alert, directable, and cooperative. Behavior: Patient is calmly lying in bed without any agitated behavior. Speech: Patient's speech is fluent and nonpressured. Mood/Affect: Mood is improving mildly, affect is bright. Suicidality/Homicidality: Patient reports no suicidal or homicidal ideation. Perceptions: Patient denies any visual hallucinations or auditory hallucinations. Though content/process: There is no evidence of any delusional thought content and thought process is linear and goal-directed. Memory and concentration: AOX3, grossly intact for the purposes of this session Judgment and insight: Improving mildly Vital Signs Temp 98.6 F 02/27/21 10:00 Pulse 58 L 02/27/21 10:00 Resp 14 02/27/21 10:00 BP 96/63 02/27/21 10:00 Pulse Ox 99 02/27/21 10:00 Intake & Output 02/26/21 02/27/21 02/27/21 18:59 06:59 18:59 Intake Total 500 400 Balance 500 400 Weight 72.575 kg Intake: Oral 500 400 Other: Voiding Method Urinal Toilet Toilet # Voids 1 Assessment Major depressive disorder, recurrent, severe, with psychotic features Alcohol use disorder Cocaine use disorder Nicotine dependence Plan: -Patient is cleared psychiatrically for discharge. He is not presenting with any imminent risk of harm to self or others. He is not endorsing any overt psychotic symptoms that are causing him any significant dysfunction at this t [place]. He is future oriented and has been adherent with his medications and is tolerating them well. -Recommend outpatient psychiatric follow-up. -Medications : Continue Seroquel 300 mg at bedtime for mood augmentation/hallucinations Continue Efffexor XR 150 mg for depression -Thank you for this consult. Psychiatry will sign off at this time.
--- NOTE | 2021-03-01 09:02 | P.DS ---
Providers Date of admission: 02/25/21 13:41 Expected date of discharge: 02/27/21 Attending physician: Angie Houser Consults: 02/20/21 01:31 Consult Physician Routine Consulting Provider: Desmond Reynaga Consult Reason/Comments: SI Do you want consulting provider notified?: Yes Primary care physician: Bal Morris Hospital Course: Final diagnosis Acute suicidal, homicidal ideations, rule out psychosis Acute COVID-19 infection without hypoxia or other respiratory symptoms History of coronary artery disease, CABG History of mild pancytopenia Hyperlipidemia History of degenerative joint disease Mild leukopenia and anemia Increased MCV History of bowel resection History of cardiac stents history of bipolar depression, posttraumatic stress disorder as well as schizophrenia History of ongoing nicotine dependence Previous history of back pain Full code Discharge disposition Patient is being discharged in a stable condition with guarded prognosis to home. Patient will follow-up with Dr. Morris in the outpatient setting upon discharge. Patient is to also follow up with community mental health in the outpatient setting as discussed for possible alcohol rehab and mental health services. Patient will continue on vitamin and zinc supplements for COVID-19 on discharge.. Total time taken is greater than 35 minutes. Hospital course This is a 60-year-old male who came in with homicidal and suicidal ideation and recently started drinking again with acute alcohol intoxication and was being closely monitored. Patient was voluntarily accepting to go to the psych unit for further evaluation although was found to be COVID-19 positive and was sent to the medical floor with suicide sitter in place. Psychiatry following the patient making a few medication adjustments as mentioned below and recommend outpatient follow-up with community mental health and his primary care provider. Patient denies any suicidal ideation or thoughts of wanting to harm himself or others today. Suicide sitter was removed yesterday with no acute overnight issues noted. Patient was not requiring any CIWA protocol with no active withdrawals noted. Patient was completely asymptomatic of COVID-19 and will continue with vitamin and zinc supplements on discharge. Patient did not require any steroids or supplemental oxygen and oxygen saturation was maintained over 96% on room air. Currently no reports of chest pain, shortness of breath, or palpitations. Patient is afebrile. No reports of nausea or vomiting and patient is tolerating diet. Patient will be discharged home today. Physical Exam: Gen: This is 60-year-old male, alert and oriented 3. HEENT: Head is atraumatic, normocephalic. Pupils equal, round. Sclerae is anicteric. NECK: Supple. No JVD. No lymphadenopathy. No thyromegaly. LUNGS: Chest is clear to auscultation with no wheezing or rhonchi noted. No intercostal retractions. HEART: S1, S2 are muffled ABDOMEN: Soft. Bowel sounds are present. No masses. No tenderness. EXTREMITIES: No pedal edema. No calf tenderness. NEUROLOGICAL: Patient is awake, alert and oriented 3, no focal deficit noted Please refer to medication reconciliation sheet for a list of medications. Patient Condition at Discharge: Stable Plan - Discharge Summary Discharge Rx Participant: No New Discharge Prescriptions: New QUEtiapine [SEROquel] 300 mg PO HS 30 Days #90 tab Ascorbic Acid [Vitamin C] 500 mg PO DAILY 30 Days #30 tablet Nicotine 14Mg/24Hr Patch [Habitrol] 1 patch TRANSDERM DAILY patch Zinc Sulfate [Orazinc] 220 mg PO DAILY 14 Days #14 cap Cholecalciferol [Vitamin D3 (25 Mcg = 1000 Iu)] 50 mcg PO DAILY 30 Days #60 tab Continue HYDROcodone/APAP 10-325MG [Hargill 10-325] 1 tab PO QID PRN PRN Reason: Pain Metoprolol Succinate [Toprol XL] 50 mg PO DAILY Atorvastatin Calcium [Lipitor] 20 mg PO HS Ibuprofen [Motrin Ib] 800 mg PO Q8H PRN PRN Reason: Pain Or Fever > 100.5 Aspirin EC [Ecotrin Low Dose] 81 mg PO DAILY Venlafaxine HCl ER [Effexor XR] 150 mg PO DAILY 30 Days #30 cap Discontinued QUEtiapine FUMARATE [SEROquel] 300 mg PO HS QUEtiapine [SEROquel] 100 mg PO DAILY Discharge Medication List HYDROcodone/APAP 10-325MG [Hargill 10-325] 1 tab PO QID PRN 10/23/20 [History] Aspirin EC [Ecotrin Low Dose] 81 mg PO DAILY 02/19/21 [History] Atorvastatin Calcium [Lipitor] 20 mg PO HS 02/19/21 [History] Ibuprofen [Motrin Ib] 800 mg PO Q8H PRN 02/19/21 [History] Metoprolol Succinate [Toprol XL] 50 mg PO DAILY 02/19/21 [History] Nicotine 14Mg/24Hr Patch [Habitrol] 1 patch TRANSDERM DAILY patch 02/25/21 [Rx] Zinc Sulfate [Orazinc] 220 mg PO DAILY 14 Days #14 cap 02/25/21 [Rx] Ascorbic Acid [Vitamin C] 500 mg PO DAILY 30 Days #30 tablet 02/27/21 [Rx] Cholecalciferol [Vitamin D3 (25 Mcg = 1000 Iu)] 50 mcg PO DAILY 30 Days #60 tab 02/27/21 [Rx] QUEtiapine [SEROquel] 300 mg PO HS 30 Days #90 tab 02/27/21 [Rx] Venlafaxine HCl ER [Effexor XR] 150 mg PO DAILY 30 Days #30 cap 02/27/21 [Rx] Follow up Appointment(s)/Referral(s): Bal Morris MD [Primary Care Provider] - 1-2 days (Please call to make afollow up appointment.) Patient Instructions/Handouts: Coronavirus Disease 2019 (COVID-19) Activity/Diet/Wound Care/Special Instructions: Activity as tolerated FolLow up with Primary care provider on discharge Continue taking medications as prescribed Continue current diet Follow-up with [facility] for outpatient resources regarding alcohol AA meetings Discharge Disposition: HOME SELF-CARE
== END 2021-02-27 13:12 | disposition home or self-care (01) | DRG 178 ==
LOC: EC 15:29 → 4SSUR 02-20 01:31 → 3NCARDOBS 02-20 07:43 → 4SSUR 02-22 14:10 → OBSVTOIN 02-25 13:41
PROVIDERS: ADMIT Hospitalist; ATTEND Hospitalist
DX: U07.1 COVID-19 (principal); D61.818 Other pancytopenia; F33.3 Major depressive disorder, recurrent, severe with psychotic symptoms; R45.851 Suicidal ideations; E78.5 Hyperlipidemia, unspecified; F10.129 Alcohol abuse with intoxication, unspecified; F14.10 Cocaine abuse, uncomplicated; F17.210 Nicotine dependence, cigarettes, uncomplicated; F20.9 Schizophrenia, unspecified; F43.10 Post-traumatic stress disorder, unspecified; M17.0 Bilateral primary osteoarthritis of knee; I25.10 Atherosclerotic heart disease of native coronary artery without angina pectoris; M47.9 Spondylosis, unspecified; I25.2 Old myocardial infarction; R45.850 Homicidal ideations; Z79.82 Long term (current) use of aspirin; Z82.49 Family history of ischemic heart disease and other diseases of the circulatory system; Z90.49 Acquired absence of other specified parts of digestive tract; Z91.018 Allergy to other foods; Z95.1 Presence of aortocoronary bypass graft; Z95.5 Presence of coronary angioplasty implant and graft; Z98.890 Other specified postprocedural states; Z86.010 Personal history of colon polyps; Z79.899 Other long term (current) drug therapy; Z83.6 Family history of other diseases of the respiratory system; Z81.1 Family history of alcohol abuse and dependence
CPT/HCPCS: 71045; 80048; 80053; 80061; 80306; 81003; 82075; 83036; 84443; 85025; 87635; 99285

== ENCOUNTER 2021-03-11 15:11 | Inpatient (IN) | payer MEDICARE, MEDICAID ==
[2021-03-11] MEDS ORDERED: MAGNESIUM HYDROXIDE 2,400 MG/10 ML CUP PO PRN (16:26)
[2021-03-11] MEDS ORDERED: ACETAMINOPHEN TAB 325 MG TAB PO PRN (16:26)
[2021-03-11] MEDS ORDERED: MAG HYDROX/AL HYDROX/SIMETH 30 ML CUP PO PRN (16:26)
--- NOTE | 2021-03-11 16:32 | P.PN ---
Subjective Progress Note Date: 03/11/21 Holding psychiatric admission note He was seen briefly face to face after he arrived on the unit around 4: 05 Pm earlier, petition was completed via [facility] clinic for him to be admitted. Urine was positive for amphetamine and Crystal-METH most likely the culprit for his florid psychosis superimpsed on his psychiatric disorder. query schizo- affective disorder. He went on alcohol binge but did not have alcohol withdrawal. Thiamine po may have to be started. I briefly reviewed Home Rx 1. Narcotic hydromor. qid prnto be monitored 2. taper effecxor to 75 mg in view of his florid psychosis 3. Continue on Seroquel 5. combined lorazepam 2 mg and Haldol 5 mg prn por or im Objective - Vital Signs Vital signs: Intake & Output 03/10/21 03/11/21 03/11/21 18:59 06:59 18:59 Weight 66.81 kg
[2021-03-11] MEDS ORDERED: haloperidoL 5 MG TAB PO PRN (16:41)
[2021-03-11] MEDS ORDERED: HALOPERIDOL LACTATE 5 MG/ML 1 ML VIAL IM PRN (16:41)
[2021-03-11] MEDS ORDERED: LORazepam 2 MG/ML INJ IM PRN (16:42)
--- NOTE | 2021-03-11 18:03 | P.HPIM ---
History of Present Illness H&P Date: 03/11/21 Chief Complaint: Psychosis with suicidal ideation and plan 03/11/2021 patient was transferred from [facility] emergency room to [facility] unit. Patient is not well known to me but states that he does present to our office infrequently. Patient was brought in the early care in emergency room via police for psychotic event. Patient was found to have cocaine and methamphetamines in his system and has recently been in alcohol binge. He admitted to usually drinking 2-3 beers daily but recently drinking 12-24 per day. He did deny to me the use of cocaine or methamphetamines, but again found in his system. Patient states he has been off all his medications for many months with no explanation why. He stated "I just quit taking them". He admitted to wanting to harm himself or others and he had a plan to kill himself by walking into traffic. Patient has past medical history of bipolar, depression, PTSD, schizophrenia, previous CO, coronary artery bypass, heart cath with stent, hyperlipidemia, hypertension, and is a daily smoker Currently this patient is resting comfortably in his bed at the mental health unit with a temperature of 97.7, pulse rate of 81, respiratory rate of 20, maintaining oxygen saturation 97% on room air, blood pressure 122/78. Most recent lab work completed at [facility] revealed positive toxicology for cocaine and methamphetamines. Home medications have been ordered through psychiatry at this time. Review of Systems Constitutional: Reports fatigue, Reports lethargy Ears, nose, mouth and throat: Reports as per HPI, Reports headache Cardiovascular: Reports high blood pressure Respiratory: Reports as per HPI, Denies congestion, Denies cough, Denies cough with sputum, Denies dyspnea, Denies excessive sputum, Denies hemoptysis, Denies home oxygen, Denies pain, Denies pain on inspiration, Denies pleurisy, Denies respiratory infections, Denies sleep apnea, Denies snoring, Denies wheezing Gastrointestinal: Reports as per HPI, Denies abdominal pain, Denies belching, Denies bloating, Denies BRBPR, Denies change in bowel habits, Denies coffee ground emesis, Denies constipation, Denies diarrhea, Denies dyspepsia, Denies early satiety, Denies excessive gas, Denies heartburn, Denies hematemesis, Denies hematochezia, Denies indigestion, Denies jaundice, Denies lactose intolerance, Denies loss of appetite, Denies melena, Denies nausea, Denies vomiting Genitourinary: Reports as per HPI, Denies decreased libido, Denies difficulties fathering child, Denies discharge, Denies dysuria, Denies erectile dysfunction, Denies flank pain, Denies genital pain, Denies genital sores, Denies hematuria, Denies impotence, Denies incontinence, Denies kidney stones, Denies nocturia, Denies polyuria, Denies testicular lump, Denies testicular pain, Denies urinary frequency, Denies urinary hesitancy, Denies urinary retention Musculoskeletal: Reports myalgias Integumentary: Reports as per HPI, Denies acne, Denies boils, Denies brittle nails, Denies change in hair/nails, Denies color changes, Denies darkening of skin, Denies depigmentation, Denies dryness, Denies foot/leg ulcers, Denies growths, Denies hirsutism, Denies lesions, Denies onychomycosis, Denies pruritus, Denies rash, Denies sores, Denies striae, Denies unusual bruising, Denies wounds Neurological: Reports change in mentation (Hearing voices), Reports confusion Psychiatric: Reports confusion, Reports hallucinations (Hearing voices), Reports irritability, Reports sadness/tearfulness, Reports sleep disturbances, Reports suicidal ideation (Plan to walk into traffic) Endocrine: Reports as per HPI, Reports fatigue Hematologic/Lymphatic: Reports as per HPI Allergic/Immunologic: Reports as per HPI Past Medical History Past Medical History: Coronary Artery Disease (CAD), Chest Pain / Angina, Hyperlipidemia, Myocardial Infarction (CO), Osteoarthritis (OA) Additional Past Medical History / Comment(s): arthritis in back and bilateral knees, hiatal hernia repair, Last Myocardial Infarction Date:: 2004 History of Any Multi-Drug Resistant Organisms: None Reported Past Surgical History: Bowel Resection, Coronary Bypass/CABG, Heart Catheterization With Stent Additional Past Surgical History / Comment(s): Cardiac stents x 3, bowel surgery for pinpoint hole in bowel, L knee arthroscopy, colonoscopy/benign polypectomies. Past Anesthesia/Blood Transfusion Reactions: No Reported Reaction Date of Last Stent Placement:: 2013 Past Psychological History: No Psychological Hx Reported, Bipolar, Depression, PTSD, Schizophrenia Additional Psychological History / Comment(s): He states he goes to [facility]. Smoking Status: Current every day smoker Past Alcohol Use History: Occasional Additional Past Alcohol Use History / Comment(s): Pt states he started smoking in 1994 a pack will last him a month. Past Drug Use History: None Reported Additional Drug Use History / Comment(s): Pt states that he used MJ occasion ally. Pt states that he has a history of cocaine, drinks twice a week. - Past Family History Father Family Medical History: Respiratory Disorder Additional Family Medical History / Comment(s): Father at age 64 from Black lung disease Mother Family Medical History: Hypertension, Myocardial Infarction (CO) Additional Family Medical History / Comment(s): Mother of an CO at 78yrs old. Brother(s) Family Medical History: Myocardial Infarction (CO) Additional Family Medical History / Comment(s): Patient has 10 brothers and 2 from myocardial infarction and had history of alcoholism. Sister(s) Family Medical History: Hypertension, Myocardial Infarction (CO) Additional Family Medical History / Comment(s): He has 7 sisters that are alive with no major medical problems. He has one son that has and one daughter that is alive and okay. Medications and Allergies Home Medications Medication Instructions Recorded Confirmed Type HYDROcodone/APAP 10-325MG [[place] 1 tab PO QID PRN 10/23/20 03/11/21 History 10-325] Aspirin EC [Ecotrin Low Dose] 81 mg PO DAILY 02/19/21 03/11/21 History Atorvastatin Calcium [Lipitor] 20 mg PO HS 02/19/21 03/11/21 History Ibuprofen [Motrin Ib] 800 mg PO Q8H PRN 02/19/21 03/11/21 History Metoprolol Succinate [Toprol XL] 50 mg PO DAILY 02/19/21 03/11/21 History Nicotine 14Mg/24Hr Patch [Habitrol] 1 patch TRANSDERM DAILY patch 02/25/21 03/11/21 Rx Zinc Sulfate [Orazinc] 220 mg PO DAILY 14 Days #14 cap 02/25/21 03/11/21 Rx Ascorbic Acid [Vitamin C] 500 mg PO DAILY 30 Days #30 tablet 02/27/21 03/11/21 Rx Cholecalciferol [Vitamin D3 (25 50 mcg PO DAILY 30 Days #60 tab 02/27/21 03/11/21 Rx Mcg = 1000 Iu)] QUEtiapine [SEROquel] 300 mg PO HS 30 Days #90 tab 02/27/21 03/11/21 Rx Venlafaxine HCl ER [Effexor XR] 150 mg PO DAILY 30 Days #30 cap 02/27/21 03/11/21 Rx Allergies Allergy/AdvReac Type Severity Reaction Status Date / Time blueberry Allergy Rash/Hives Verified 02/19/21 16:29 nitroglycerin Allergy Swelling Verified 02/19/21 16:29 Physical Exam Vitals: Vital Signs Temp Pulse Resp BP Pulse Ox 03/11/21 16:15 97.7 F 81 20 122/78 97 Intake and Output 03/11/21 03/11/21 03/11/21 06:59 14:59 22:59 Other: Weight 66.81 kg GENERAL: Adult male, despondent, fatigued, irritable, laying in bed . HEAD: Atraumatic, normocephalic. EYES: Pupils equal round and reactive to light, extraocular movements intact, sclera anicteric, conjunctiva are normal. ENT:nares patent, oropharynx clear without exudates. Moist mucous membranes. NECK: Normal range of motion, supple without lymphadenopathy or JVD, no thyromegaly LUNGS: Breath sounds clear to auscultation bilaterally and equal. No wheezes rales or rhonchi. HEART: Regular rate and rhythm without murmurs, rubs or gallops.S1S2 Normal ABDOMEN: Soft, nontender, normoactive bowel sounds. No guarding, no rebound. No masses appreciated. EXTREMITIES: Normal range of motion, no pitting or edema. No clubbing or cyanosis. NEUROLOGICAL: Cranial nerves II through XII grossly intact. Normal speech, normal gait. PSYCH: Depressed mood, irritable SKIN: Warm, Dry, normal turgor, no rashes or lesions noted. Thrombosis Risk Factor Assmnt - DVT/VTE Prophylaxis DVT/VTE Prophylaxis: Low risk, early ambulation encouraged - Choose All That Apply Any of the Below Risk Factors Present?: No Other Risk Factors: No Each Risk Factor Represents 2 Points: Age 61-74 years Other congenital or acquired thrombophilia - If yes, enter type in comment: No Thrombosis Risk Factor Assessment Total Risk Factor Score: 2 Thrombosis Risk Factor Assessment Level: Very Low Risk Assessment and Plan (1) Methamphetamine abuse Current Visit: Yes Status: Acute Code(s): F15.10 - OTHER STIMULANT ABUSE, UNCOMPLICATED SNOMED Code(s): 279832995 (2) Alcohol abuse Current Visit: No Status: Acute Priority: Medium Code(s): F10.10 - ALCOHOL ABUSE, UNCOMPLICATED SNOMED Code(s): 10863068 (3) CAD (coronary artery disease) Current Visit: No Status: Acute Code(s): I25.10 - ATHSCL HEART DISEASE OF [place] CORONARY ARTERY W/O ANG PCTRS SNOMED Code(s): 86718608 (4) Cocaine use Current Visit: No Status: Acute Code(s): F14.90 - COCAINE USE, UNSPECIFIED, UNCOMPLICATED SNOMED Code(s): 227827124 (5) Dyslipidemia Current Visit: No Status: Acute Code(s): E78.5 - HYPERLIPIDEMIA, UNSPECIFIED SNOMED Code(s): 337657994 (6) Hyperlipemia Current Visit: No Status: Acute Code(s): E78.5 - HYPERLIPIDEMIA, UNSPECIFIED SNOMED Code(s): 45864331 (7) Major depress, sev w/ psych Current Visit: No Status: Acute Priority: High Code(s): F32.3 - MAJOR DEPRESSV DISORD, SINGLE EPSD, SEVERE W PSYCH FEATURES SNOMED Code(s): 34522969 (8) Major depressive disorder Current Visit: No Status: Acute Priority: High Code(s): F32.9 - MAJOR DEPRESSIVE DISORDER, SINGLE EPISODE, UNSPECIFIED SNOMED Code(s): 777216725 (9) Polysubstance abuse Current Visit: No Status: Acute Code(s): F19.10 - OTHER PSYCHOACTIVE SUBSTANCE ABUSE, UNCOMPLICATED SNOMED Code(s): 636476509 (10) Psychosis Current Visit: No Status: Acute Code(s): F29 - UNSP PSYCHOSIS NOT DUE TO A SUBSTANCE OR KNOWN PHYSIOL COND SNOMED Code(s): 93492686 (11) Schizoaffective disorder Current Visit: No Status: Acute Priority: High Code(s): F25.9 - SCHIZOAFFECTIVE DISORDER, UNSPECIFIED SNOMED Code(s): 16099118 (12) Schizophrenia Current Visit: No Status: Acute Code(s): F20.9 - SCHIZOPHRENIA, UNSPECIFIED SNOMED Code(s): 08931913 (13) Bipolar 1 disorder Current Visit: No Status: Chronic Code(s): F31.9 - BIPOLAR DISORDER, UNSPECIFIED SNOMED Code(s): 390810694 (14) Depression Current Visit: No Status: Chronic Priority: Low Code(s): F32.9 - MAJOR DEPRESSIVE DISORDER, SINGLE EPISODE, UNSPECIFIED SNOMED Code(s): 27155748 (15) Suicidal ideation Current Visit: No Status: Inactive Code(s): R45.851 - SUICIDAL IDEATIONS SNOMED Code(s): 1502002 Plan: Admitted to psychiatric care Continue medication regimen as prescribed [facility] protocol Haldol for acute psychosis Lorazepam for acute agitation or acute anxiety Acetaminophen for mild pain Seroquel and at bedtime for sleep disturbance Thiamine daily Regular diet Labs ordered for tomorrow We'll continue to follow closely Time with Patient: Greater than 30
[2021-03-11] MEDS ORDERED: QUEtiapine 100 MG TAB PO SCH (21:00)
[2021-03-11] MEDS: ATORVASTATIN 20 MG TAB PO SCH (21:27)
[2021-03-12] MEDS: ASCORBIC ACID 500 MG TAB PO SCH (08:22)
[2021-03-12] MEDS: ZINC SULFATE 220 MG CAP PO SCH (08:22)
[2021-03-12] MEDS: THIAMINE 100 MG TAB PO SCH (08:22)
[2021-03-12] MEDS: LORazepam 1 MG TAB PO PRN (08:22)
[2021-03-12] MEDS: CHOLECALCIFEROL 25 MCG (1000 IU) TABLET PO SCH (08:22)
[2021-03-12] MEDS: ASPIRIN 81 MG PO SCH (08:23)
[2021-03-12] MEDS: METOPROLOL SUCCINATE (ER) 50 MG TAB.ER.24H PO SCH (08:23)
[2021-03-12] MEDS: VENLAFAXINE HCL ER 75 MG CAP PO SCH (08:23)
--- NOTE | 2021-03-12 11:49 | P.HP ---
Psychiatric H&P - . H&P Date: 03/12/21 History & Physical: Allergies Allergy/AdvReac Type Severity Reaction Status Date / Time blueberry Allergy Rash/Hives Verified 02/19/21 16:29 nitroglycerin Allergy Swelling Verified 02/19/21 16:29 Vital Signs Temp 97.7 F 03/11/21 16:15 Pulse 81 03/11/21 16:15 Resp 20 03/11/21 16:15 BP 122/78 03/11/21 16:15 Pulse Ox 97 03/11/21 16:15 Intake & Output 03/11/21 03/12/21 03/12/21 18:59 06:59 18:59 Weight 66.81 kg 03/12/21 11:48 IDENTIFYING DATA: Patient is a , unemployed, 60-year-old -[place] male who presented to the hospital on 03/11/2021, transferred from [facility] emergency department for mental health treatment. HPI: Patient was brought in by police for a "psychotic event." As per petition by the patient's nurse at [facility], the patient was reporting hallucinations that were telling him to hurt himself as well as his sister. He also endorsed suicidal ideation with a plan to overdose. As per first clinical certificate, the patient reported that he was not taking his psychiatric medications for the past 2-3 months and he was expressing auditory hallucinations telling him to hurt others. The patient was subsequently transferred to [facility] and admitted to our psychiatric unit. Upon evaluation in the emergency department at [facility], the patient was noted to have a positive tox screen for cocaine and methamphetamines. The patient desired to sign himself voluntarily into our psychiatric unit. The patient is unable to provide any significant history at this time other than stating that he was not taking his medications with past 2-3 months despite being recently being seen by this provider on the medical floor in early February where he was restarted on his psychotropic medications. At that time, the patient was unable to be admitted to our psychiatric unit due to a positive Covid status. At that time, the patient was restarted back on his medications of Seroquel and Effexor and was subsequently discharged. The patient is currently unable to provide any significant history of event sitting up to this hospitalization. He however does acknowledge that he has been using substances. He reports that he relapsed into alcohol, cocaine, and more recently methamphetamine use. He is unable to identify when he last used. He is otherwise unable to provide any significant stressors contributing to his mood at this time. He currently endorses suicidal and homicidal ideation and reports auditory hallucinations that are commanding him to hurt himself and hurt others. He does report visual hallucinations in the form of people and shadows that occur mainly at night. After significant discussion, the patient is agreeable to signing himself voluntarily to the psychiatric unit and willing to trial medications second transitioned to a long-acting injectable form. PAST PSYCHIATRIC HISTORY: Patient has previous diagnoses of major depressive disorder, alcohol use disorder, cocaine use disorder, and nicotine dependence. The patient reports that he has been nonadherent with his medications after he was discharged from the medical floor earlier this February. He was last discharged on a regimen of Seroquel and Effexor. The patient has had multiple inpatient psychiatric admissions with this being his ninth admission since 2016. The patient reports that he has not followed up in the outpatient setting. He does report prior attempts at suicide. PMH: Past Medical History: Coronary Artery Disease (CAD), Chest Pain / Angina, Hyperlipidemia, Myocardial Infarction (ID), Osteoarthritis (OA) Additional Past Medical History / Comment(s): arthritis in back and bilateral knees, hiatal hernia repair, Last Myocardial Infarction Date:: 2004 History of Any Multi-Drug Resistant Organisms: None Reported Past Surgical History: Bowel Resection, Coronary Bypass/CABG, Heart Catheterization With Stent Additional Past Surgical History / Comment(s): Cardiac stents x 3, bowel surgery for pinpoint hole in bowel, L knee arthroscopy, colonoscopy/benign polypectomies. Past Anesthesia/Blood Transfusion Reactions: No Reported Reaction Date of Last Stent Placement:: 2013 Past Psychological History: No Psychological Hx Reported, Bipolar, Depression, PTSD, Schizophrenia Additional Psychological History / Comment(s): He states he goes to [facility]. Smoking Status: Current every day smoker Past Alcohol Use History: Occasional Additional Past Alcohol Use History / Comment(s): Pt states he started smoking in 1994 a pack will last him a month. Past Drug Use History: None Reported Additional Drug Use History / Comment(s): Pt states that he used MJ o ccasionally. Pt states that he has a history of cocaine, drinks twice a week. ALLERGIES: Blueberry, nitroglycerin CHEMICAL DEPENDENCY HISTORY: The patient is unable to identify the quantity of how much he has been drinking lately. During [facility] admissions he has noted up to 12 beers per day. He reports that he has been engaging in illicit drug use, in particular cocaine and methamphetamines. He reports daily tobacco use. FAMILY PSYCHIATRIC/SUBSTANCE USE HISTORY: Patient reports that he lost 2 brothers to suicide. SOCIAL HISTORY: Patient was born and raised in [place], [place].He has a 12th grade education. He reports previously working for the [employer] and retired approximately 15 years ago. He currently receives Social Security disability. Marital status is listed as however the patient states that he is currently engaged/. He reports he is Restoration and has support from his sikhism community and his family. MENTAL STATUS EXAM: General Appearance: Patient appears to be stated age is alert, directable, and attempts to cooperate. Patient appears to have poor hygiene and grooming. Behavior: Patient is seated without any agitated behavior. Eye contact is poor. Psychomotor slowing is evident. Speech: Patient's speech is fluent and nonpressured. Nonspontaneous and monotone. Low in volume. Replies in 1 word responses. Mood/Affect: Patient reports their mood is depressed, affect is congruent and withdrawn. Suicidality/Homicidality: Patient endorses both suicidal and homicidal ideation. Perceptions: Patient reports both auditory and visual hallucinations. Though content/process: There is no evidence of any delusional thought content and thought process is linear and goal-directed. Memory and concentration: AOX3, grossly intact for the purposes of this session. Can spell "WORLD" backwards Judgment and insight: Poor. STRENGTHS/WEAKNESSES: Strength is that the patient appears to have significant social supports. Weakness is that patient engages in substance abuse and is inconsistent with outpatient treatment. INTELLECT: average IMPRESSIONS: Major depressive disorder, recurrent, severe, with psychotic features Alcohol use disorder and cocaine use disorder Methamphetamine use disorder Nicotine dependence PLAN: -Patient is admitted under voluntary status to MHU for stabilization of psychiatric symptoms and safety. Patient signed adult voluntary form and is placed in patient's chart. -Medications: Decrease Seroquel to 150 mg by mouth at bedtime his request titrate this medication with Invega 3 mg by mouth at bedtime. Plan is to transition the patient to a long-acting injectable Invega Sustenna. We will continue Effexor 75 mg by mouth daily for depression/anxiety at this time. We'll gradually titrate the medication. -Ativan and Haldol PRN for agitation/aggression -Patient was counselled on substance abuse and desired to cut back on use -Patient was informed of the risks, benefits and side effects of the medication and patient verbally consented to taking the medications. Patient signed med consent form and was placed in chart. -Internal Medicine consult to perform medical evaluation and physical. -NRT - nicotine patch -SW on board for discharge planning. Encourage patient to participate in groups to work on coping skills. 03/12/21 11:49
[2021-03-12] MEDS ORDERED: QUEtiapine 100 MG TAB PO SCH (21:00)
[2021-03-12] MEDS ORDERED: PALIPERIDONE 3 MG TAB.ER.24 PO SCH (21:00)
[2021-03-12] MEDS: ATORVASTATIN 20 MG TAB PO SCH (21:23)
[2021-03-13] MEDS: METOPROLOL SUCCINATE (ER) 50 MG TAB.ER.24H PO SCH (09:01)
[2021-03-13] MEDS: ZINC SULFATE 220 MG CAP PO SCH (09:01)
[2021-03-13] MEDS: CHOLECALCIFEROL 25 MCG (1000 IU) TABLET PO SCH (09:01)
[2021-03-13] MEDS: ASPIRIN 81 MG PO SCH (09:01)
[2021-03-13] MEDS: THIAMINE 100 MG TAB PO SCH (09:01)
[2021-03-13] MEDS: VENLAFAXINE HCL ER 75 MG CAP PO SCH (09:01)
[2021-03-13] MEDS: ASCORBIC ACID 500 MG TAB PO SCH (09:02)
--- NOTE | 2021-03-13 10:54 | P.PN ---
Progress Note - Text Progress Note Date: 03/13/21 Interval History: Patient was seen resting in bed and was directable and agreeable to speak with justowriter operator in his room. The patient is reporting that he is feeling very depressed. He is reporting suicidal ideation and homicidal ideation. He reports that this is secondary to many of the voices that he continues to hear. He is reporting some visual hallucinations in the form of shadows and people at night. He is not reporting any significant side effects of his medication. He reports that his appetite continues to be low. He remains primarily isolative to himself in his room. Mental Status Exam: General Appearance: Patient appears to be stated age is alert, directable, and cooperative. Behavior: Patient is calmly lying in bed without any agitated behavior. Eye contact is intermittent. Speech: Patient's speech is fluent and nonpressured. Mood/Affect: Mood is depressed, affect is congruent and withdrawn Suicidality/Homicidality: Patient endorses both suicidal and homicidal ideation but no intention or plan. Perceptions: Patient reports both auditory and visual hallucinations. Though content/process: There is no evidence of any delusional thought content and thought process is linear and goal-directed. Memory and concentration: AOX3, grossly intact for the purposes of this session Judgment and insight: Mildly improving. Vital Signs Temp 98.6 F 03/13/21 08:35 Pulse 65 03/13/21 08:35 Resp 16 03/13/21 08:35 BP 126/85 03/12/21 19:00 Pulse Ox 98 03/13/21 08:35 Assessment Major depressive disorder, recurrent, severe, with psychotic features Alcohol use disorder and cocaine use disorder Methamphetamine use disorder Nicotine dependence Plan: -Patient continues to meet criteria for inpatient psychiatric admission for symptom stabilization and safety. Patient has signed adult voluntary form and medication consent and was placed in patient's chart. -Medications: Decrease Seroquel to 100 mg by mouth at bedtime was a cross titrate with Invega which we will increase to 6 mg by mouth at bedtime for management of psychosis. Plan is to transition patient to long-acting injectable Invega Sustenna. Continue Effexor 75 mg by mouth daily for depression. -When necessary Ativan and Haldol for agitation/aggression. -SW on board for discharge planning. Encouraged the patient to participate in milieu.
[2021-03-13] MEDS: ATORVASTATIN 20 MG TAB PO SCH (20:42)
[2021-03-13] MEDS: LORazepam 1 MG TAB PO PRN (20:43)
[2021-03-13] MEDS ORDERED: QUEtiapine 100 MG TAB PO SCH (21:00)
[2021-03-13] MEDS ORDERED: PALIPERIDONE 6 MG TAB.ER.24 PO SCH (21:00)
[2021-03-14] MEDS: ZINC SULFATE 220 MG CAP PO SCH (08:53)
[2021-03-14] MEDS: ASPIRIN 81 MG PO SCH (08:53)
[2021-03-14] MEDS: ASCORBIC ACID 500 MG TAB PO SCH (08:53)
[2021-03-14] MEDS: CHOLECALCIFEROL 25 MCG (1000 IU) TABLET PO SCH (08:53)
[2021-03-14] MEDS: VENLAFAXINE HCL ER 75 MG CAP PO SCH (08:53)
[2021-03-14] MEDS: THIAMINE 100 MG TAB PO SCH (08:53)
[2021-03-14] MEDS: METOPROLOL SUCCINATE (ER) 50 MG TAB.ER.24H PO SCH (08:54)
--- NOTE | 2021-03-14 11:43 | P.PN ---
Progress Note - Text Progress Note Date: 03/14/21 Interval History: Patient was seen resting in bed and was directable and agreeable to speak with health science writer in his room. The patient reports that he is feeling slightly better than yesterday. He continues to report that he has been expressing auditory hallucinations and visual disturbances. He reports that his visual hallucinations have decreased to just "black spots." In regards to his auditory hallucinations, the patient seems reports command hallucinations telling him to hurt himself or hurt others. He reports that he has not heard these voices today but heard them last night. He is not reporting any suicidal or homicidal ideation, intention, and/or plan today. He reports that he experienced them last night. He has been in adherent with his medications and is not endorsing any significant side effects this time. He reports improvement in his appetite. Mental Status Exam: General Appearance: Patient appears to be stated age is alert, directable, and cooperative. Behavior: Patient is calmly lying in bed without any agitated behavior. Eye contact is intermittent. Speech: Patient's speech is fluent and nonpressured. Mood/Affect: Mood is a little better, affect is congruent and constricted Suicidality/Homicidality: Patient currently denies any suicidal or homicidal ideation. Perceptions: Patient reports both auditory and visual hallucinations. Though content/process: There is no evidence of any delusional thought content and thought process is linear and goal-directed. Memory and concentration: AOX3, grossly intact for the purposes of this session Judgment and insight: Mildly improving. Vital Signs Temp 97.8 F 03/14/21 08:00 Pulse 69 03/14/21 08:00 Resp 16 03/14/21 08:00 BP 126/85 03/12/21 19:00 Pulse Ox 97 03/14/21 08:00 Assessment Major depressive disorder, recurrent, severe, with psychotic features Alcohol use disorder and cocaine use disorder Methamphetamine use disorder Nicotine dependence Plan: -Patient continues to meet criteria for inpatient psychiatric admission for symptom stabilization and safety. Patient has signed adult voluntary form and medication consent and was placed in patient's chart. -Medications: Discontinue Seroquel and increase Invega to 9 mg daily with plans to transition him to long-acting Invega Sustenna. Increase Effexor to 150 mg by mouth daily for depression. -When necessary Ativan and Haldol for agitation/aggression. -SW on board for discharge planning. Encouraged the patient to participate in milieu.
[2021-03-14] MEDS: ATORVASTATIN 20 MG TAB PO SCH (20:43)
[2021-03-14] MEDS: PALIPERIDONE 3 MG TAB.ER.24 PO SCH (20:43)
[2021-03-14] MEDS: LORazepam 1 MG TAB PO PRN (20:43)
[2021-03-15] MEDS: ASPIRIN 81 MG PO SCH (08:46)
[2021-03-15] MEDS: METOPROLOL SUCCINATE (ER) 50 MG TAB.ER.24H PO SCH (08:46)
[2021-03-15] MEDS: VENLAFAXINE HCL ER 75 MG CAP PO SCH (08:46)
[2021-03-15] MEDS: CHOLECALCIFEROL 25 MCG (1000 IU) TABLET PO SCH (08:46)
[2021-03-15] MEDS: THIAMINE 100 MG TAB PO SCH (08:47)
[2021-03-15] MEDS: ASCORBIC ACID 500 MG TAB PO SCH (08:47)
[2021-03-15] MEDS: ZINC SULFATE 220 MG CAP PO SCH (08:47)
[2021-03-15] MEDS: LORazepam 1 MG TAB PO PRN ×2 (08:49→20:42)
--- NOTE | 2021-03-15 11:55 | P.PN ---
Progress Note - Text Progress Note Date: 03/15/21 Interval History: Patient was seen resting in bed and was directable and agreeable to speak with senior writer in his room. Patient reports that this morning he was experiencing some suicidal and homicidal ideation. He is unable to go into any specific details. He continues to report auditory and visual hallucinations. He describes his visual hallucinations as minor black spots. However, the patient does express auditory hallucinations have been quite bothersome. He has been adherent with his medications and is not endorsing any significant side effects at this time. Patient expresses a desire to pursue inpatient substance-abuse rehab and is requesting the access number. Furthermore, the patient is agreeable to receiving the long-acting injectable Invega Sustenna. Mental Status Exam: General Appearance: Patient appears to be stated age is alert, directable, and cooperative. Behavior: Patient is calmly lying in bed without any agitated behavior. Eye contact is intermittent. Speech: Patient's speech is fluent and nonpressured. Mood/Affect: Mood is "not good today," affect is constricted and withdrawn. Suicidality/Homicidality: Patient reports both suicidal and homicidal ideation. Perceptions: Patient reports both auditory and visual hallucinations. Though content/process: There is no evidence of any delusional thought content and thought process is linear and goal-directed. Memory and concentration: AOX3, grossly intact for the purposes of this session Judgment and insight: Fair Vital Signs Temp 97.3 F L 03/15/21 08:42 Pulse 120 H 03/15/21 08:42 Resp 20 03/15/21 08:42 BP 103/66 03/15/21 08:42 Pulse Ox 97 03/15/21 08:42 Assessment Major depressive disorder, recurrent, severe, with psychotic features Alcohol use disorder and cocaine use disorder Methamphetamine use disorder Nicotine dependence Plan: -Patient continues to meet criteria for inpatient psychiatric admission for symptom stabilization and safety. Patient has signed adult voluntary form and medication consent and was placed in patient's chart. -Patient was provided the access number by [email or web address]. -Medications: Continue Invega 9 mg by mouth daily for psychosis. We will start Invega Sustenna 234 mg IM tomorrow. Continue Effexor 150 mg by mouth daily for depression. -When necessary Ativan and Haldol for agitation/aggression. -SW on board for discharge planning. Encouraged the patient to participate in milieu.
[2021-03-15] MEDS: ATORVASTATIN 20 MG TAB PO SCH (20:42)
[2021-03-15] MEDS: PALIPERIDONE 3 MG TAB.ER.24 PO SCH (20:42)
[2021-03-16] MEDS: ZINC SULFATE 220 MG CAP PO SCH (08:26)
[2021-03-16] MEDS: THIAMINE 100 MG TAB PO SCH (08:26)
[2021-03-16] MEDS: CHOLECALCIFEROL 25 MCG (1000 IU) TABLET PO SCH (08:26)
[2021-03-16] MEDS: METOPROLOL SUCCINATE (ER) 50 MG TAB.ER.24H PO SCH (08:26)
[2021-03-16] MEDS: ASCORBIC ACID 500 MG TAB PO SCH (08:26)
[2021-03-16] MEDS: ASPIRIN 81 MG PO SCH (08:26)
[2021-03-16] MEDS: VENLAFAXINE HCL ER 75 MG CAP PO SCH (08:26)
[2021-03-16] MEDS: LORazepam 1 MG TAB PO PRN ×2 (08:27→20:37)
[2021-03-16 08:29] VITALS: RESP 18
[2021-03-16] MEDS ORDERED: PALIPERIDONE IM 234 MG/1.5 ML SYG IM ONE (09:00)
--- NOTE | 2021-03-16 17:07 | P.PN ---
Progress Note - Text Progress Note Date: 03/16/21 CHIEF COMPLAINT The patient had auditory hallucinations telling him to hurt others. He has significant alcohol and substance use issues. INTERVAL HISTORY The patient has been doing fair. He had acquired a day yesterday. He spent most of the time in his room. He chose not to attend groups. He doesn't interact much with others. He will respond appropriately to staff and has been cooperative with care. CIWA scores yesterday were 0. He said he slept fair last night. Today he spent and in general doing the same. Mostly he's been in his room. He had no specific complaints or concerns. When offered Invega Sustenna in the morning as ordered the patient requested that he wanted to rev iew this with the doctor prior to receiving the medication. When we discussed the indication and use of the medication he was willing to accept it. He received Invega Sustenna 234 mg IM today. He has not noted in a side effects or problems relating to his medications. MENTAL STATUS EXAM Patient walked slowly. He gave fair eye contact. He answered questions with brief responses. He talked in a soft slow voice. His thoughts were clear and coherent. He didn't say much. His affect was flat. His mood depressed. He seems somewhat distressed. He showed no indication of responding to internal stimuli. He voiced no thoughts of harm. He was oriented to circumstances and surroundings. ASSESSMENT/PLAN We will continue the current diagnosis and treatment plan. We will continue to make efforts to engage the patient in individual and group therapeutic activities. Will continue psychotropic medications the same including intake Invega 9 mg a day and Effexor XR 150 mg a day. As noted he received Invega Sustenna 234 mg IM today. I briefly reviewed medication issues with the patient of The discussion limited as he was not inclined to engage in conversation. We will focus on stabilization and discharge planning.
[2021-03-16] MEDS: PALIPERIDONE 3 MG TAB.ER.24 PO SCH (20:38)
[2021-03-16] MEDS: ATORVASTATIN 20 MG TAB PO SCH (20:38)
[2021-03-17] MEDS: NICOTINE 14MG/24HR PATCH TRANSDERM SCH ×2 (04:27→08:28)
[2021-03-17] MEDS: THIAMINE 100 MG TAB PO SCH (08:18)
[2021-03-17] MEDS: METOPROLOL SUCCINATE (ER) 50 MG TAB.ER.24H PO SCH (08:18)
[2021-03-17] MEDS: CHOLECALCIFEROL 25 MCG (1000 IU) TABLET PO SCH (08:18)
[2021-03-17] MEDS: ZINC SULFATE 220 MG CAP PO SCH (08:18)
[2021-03-17] MEDS: VENLAFAXINE HCL ER 75 MG CAP PO SCH (08:19)
[2021-03-17] MEDS: ASCORBIC ACID 500 MG TAB PO SCH (08:19)
[2021-03-17] MEDS: ASPIRIN 81 MG PO SCH (08:19)
[2021-03-17] MEDS: LORazepam 1 MG TAB PO PRN ×2 (08:20→21:10)
--- NOTE | 2021-03-17 13:25 | P.PN ---
Progress Note - Text Progress Note Date: 03/17/21 CHIEF COMPLAINT The patient had auditory hallucinations telling him to hurt others. He has sign ificant alcohol and substance use issues. INTERVAL HISTORY The patient has been doing fair. He had a quiet day yesterday. He spent most of the time in his room. It is noteworthy that the night before he slept 6 hours by nursing observation. Yesterday he had more complaints of anxiety and was seeking when necessary medications. Nursing documented at 8 the following "Pt restless and watchful, pt asking to leave and have a cigarette. Metal Bonding Helper administered Haldol 5 mg PO at 0. Will monitor for effect." And again at 544 the following "Pt has been awake most of the night and displaying b izarre behavior. Pt asking when he can have a cigarette, and was confused about where his room was and almost went into a co-patient's room. Pt also observed to be looking inside room 302 several times. Pt is currently awake and in the lounge watching TV." He slept in this morning though then got up for lunch. When I talked to him he did not have any specific complaints or concerns. He wondered if he would be discharged tomorrow though I advised him that Dr. Orr had not made specific reference to that in his note of Thursday. I encouraged the patient to stay up for the rest of the day and make some effort at attending some of the group activities. He appears to tolerate his psychotropic medications. He is not showing signs of EPS relating to an [place]. MENTAL STATUS EXAM Patient walked slowly. He gave fair eye contact. He answered questions with brief responses. He talked in a soft slow voice. His thoughts were clear and coherent. He didn't say much. His affect was flat. His mood depressed. He seemed less distressed than he presented yesterday. If anything he seemed to be somewhat in a fog in his thinking where he showed latency in his response and slowness in his speech. He showed no indication of responding to internal stimuli. He voiced no thoughts of harm. He was oriented to circumstances and surroundings. ASSESSMENT/PLAN We will continue the current diagnosis and treatment plan. We will continue to make efforts to engage the patient in individual and group therapeutic activities. Will continue psychotropic medications the same including intake Invega 9 mg a day and Effexor XR 150 mg a day. As noted he received Invega Sustenna 234 mg IM today. We will focus on stabilization and discharge planning.
[2021-03-17] MEDS: ATORVASTATIN 20 MG TAB PO SCH (21:10)
[2021-03-17] MEDS: PALIPERIDONE 3 MG TAB.ER.24 PO SCH (21:10)
[2021-03-18] MEDS: CHOLECALCIFEROL 25 MCG (1000 IU) TABLET PO SCH (09:08)
[2021-03-18] MEDS: ASCORBIC ACID 500 MG TAB PO SCH (09:08)
[2021-03-18] MEDS: THIAMINE 100 MG TAB PO SCH (09:08)
[2021-03-18] MEDS: ASPIRIN 81 MG PO SCH (09:08)
[2021-03-18] MEDS: VENLAFAXINE HCL ER 75 MG CAP PO SCH (09:09)
[2021-03-18] MEDS: NICOTINE 14MG/24HR PATCH TRANSDERM SCH (09:09)
[2021-03-18] MEDS: METOPROLOL SUCCINATE (ER) 50 MG TAB.ER.24H PO SCH (09:09)
[2021-03-18] MEDS: ZINC SULFATE 220 MG CAP PO SCH (09:09)
--- NOTE | 2021-03-18 11:27 | P.PN ---
Progress Note - Text Progress Note Date: 03/18/21 Interval History: Patient was seen resting in bed and was directable and agreeable to speak with information writer in his room. Patient reports that he is feeling better. He continues to report that he is experiencing occasional auditory hallucinations and occasional visual disturbances however is not reporting any suicidal or homicidal ideation, intention, and/or plan. The patient reports that he has no issues regarding his appetite. He reports that sleep continues to be difficult at times. The patient has not checked called the access number for substance abuse rehabilitation. The patient did receive Invega Sustenna and is not reporting any significant side effects at this time. Mental Status Exam: General Appearance: Patient appears to be stated age is alert, directable, and cooperative. Behavior: Patient is calmly lying in bed without any agitated behavior. Eye contact is intermittent. Speech: Patient's speech is fluent and nonpressured. Mood/Affect: Mood is "feeling better" affect is constricted. Suicidality/Homicidality: Patient reports both suicidal and homicidal ideation. Perceptions: Patient reports both auditory and visual hallucinations. Though content/process: There is no evidence of any delusional thought content and thought process is linear and goal-directed. Memory and concentration: AOX3, grossly intact for the purposes of this session Judgment and insight: Fair Assessment Major depressive disorder, recurrent, severe, with psychotic features Alcohol use disorder and cocaine use disorder Methamphetamine use disorder Nicotine dependence Plan: -Patient continues to meet criteria for inpatient psychiatric admission for symptom stabilization and safety. Patient has signed adult voluntary form and medication consent and was placed in patient's chart. Anticipate discharge for tomorrow. -Patient was provided the access number by [employer]. -Medications: Continue Invega 9 mg by mouth daily for psychosis. Invega Sustenna 234 mg IM was administered on 03/16/2021. Continue Effexor 150 mg by mouth daily for depression. -When necessary Ativan and Haldol for agitation/aggression. -SW on board for discharge planning. Encouraged the patient to participate in milieu.
[2021-03-18] MEDS: ATORVASTATIN 20 MG TAB PO SCH (22:10)
[2021-03-18] MEDS: PALIPERIDONE 3 MG TAB.ER.24 PO SCH (22:10)
[2021-03-19 08:09] VITALS: TEMP 97.8
[2021-03-19] MEDS: ASCORBIC ACID 500 MG TAB PO SCH (08:10)
[2021-03-19] MEDS: ASPIRIN 81 MG PO SCH (08:10)
[2021-03-19] MEDS: THIAMINE 100 MG TAB PO SCH (08:10)
[2021-03-19] MEDS: METOPROLOL SUCCINATE (ER) 50 MG TAB.ER.24H PO SCH (08:10)
[2021-03-19] MEDS: VENLAFAXINE HCL ER 75 MG CAP PO SCH (08:10)
[2021-03-19] MEDS: ZINC SULFATE 220 MG CAP PO SCH (08:11)
[2021-03-19] MEDS: NICOTINE 14MG/24HR PATCH TRANSDERM SCH (08:11)
[2021-03-19] MEDS: CHOLECALCIFEROL 25 MCG (1000 IU) TABLET PO SCH (08:11)
[2021-03-19 10:54] VITALS: BP 104/66; PULSE 71
--- NOTE | 2021-03-19 11:44 | P.DS ---
Providers Date of admission: 03/11/21 16:03 Expected date of discharge: 03/19/21 Attending physician: Pelon Orr MD Consults: 03/11/21 16:26 Consult Physician Routine Consulting Provider: Bal Goldberg Jr Consult Reason/Comments: Medical H&P Do you want consulting provider notified?: Already Contacted Primary care physician: Braeden Barnes - Discharge Diagnosis(es) (1) Major depress, sev w/ psych Current Visit: Yes Status: Acute Priority: High (2) Methamphetamine abuse Current Visit: Yes Status: Chronic Priority: Medium (3) Alcohol abuse Current Visit: Yes Status: Chronic Priority: Medium (4) Alcohol use disorder Current Visit: Yes Status: Chronic Priority: Medium (5) Cocaine use disorder Current Visit: Yes Status: Chronic Priority: Medium (6) Nicotine dependence Current Visit: Yes Status: Chronic Priority: Medium Hospital Course: Admission HPI: Patient is a , unemployed, 60-year-old -[place] male who presented to the hospital on 03/11/2021, transferred from [facility] emergency department for mental health treatment. Patient was brought in by police for a "psychotic event." As per petition by the patient's nurse at [facility], the patient was reporting hallucinations that were telling him to hurt himself as well as his sister. He also endorsed suicidal ideation with a plan to overdose. As per first clinical certificate, t he patient reported that he was not taking his psychiatric medications for the past 2-3 months and he was expressing auditory hallucinations telling him to hurt others. The patient was subsequently transferred to [facility] and admitted to our psychiatric unit. Upon evaluation in the emergency department at [facility], the patient was noted to have a positive tox screen for cocaine and methamphetamines. The patient desired to sign himself voluntarily into our psychiatric unit. The patient is unable to provide any significant history at this time other than stating that he was not taking his medications with past 2-3 months despite being recently being seen by this provider on the medical floor in early February where he was restarted on his psychotropic medications. At that time, the patient was unable to be admitted to our psychiatric unit due to a positive Covid status. At that time, the patient was restarted back on his medications of Seroquel and Effexor and was subsequently discharged. The patient is currently unable to provide any significant history of event sitting up to this hospitalization. He however does acknowledge that he has been using substances. He reports that he relapsed into alcohol, cocaine, and more recently methamphetamine use. He is unable to identify when he last used. He is otherwise unable to provide any significant stressors contributing to his mood at this time. He currently endorses suicidal and homicidal ideation and reports auditory hallucinations that are commanding him to hurt himself and hurt others. He does report visual hallucinations in the form of people and shadows that occur mainly at night. After significant discussion, the patient is agreeable to signing himself voluntarily to the psychiatric unit and willing to trial medications second transitioned to a long-acting injectable form. Patient has previous diagnoses of major depressive disorder, alcohol use disorder, cocaine use disorder, and nicotine dependence. The patient reports that he has been nonadherent with his medications after he was discharged from the medical floor earlier this February. He was last discharged on a regimen of Seroquel and Effexor. The patient has had multiple inpatient psychiatric admissions with this being his ninth admission since 2016. The patient reports that he has not followed up in the outpatient setting. He does report prior attempts at suicide. Hospital course: Upon admission to the unit patient was initially presenting with low mood, suicidal ideation, homicidal ideation, and auditory and visual hallucinations. Patient was however directable and agreeable to commence treatment. Patient got along well with other patients on the unit and followed unit protocol. Patient was compliant with the medications and denied any side effects throughout hospital course. Patient was started on insulin medication of Seroquel and Effexor. His Seroquel was decreased and Invega was started with plans to trans ition into a long-acting injectable medications due to his history of nonadherence with treatment. Patient remained primarily isolative to himself in his room and only stepped out of his room for meals. His Invega was gradually cross titrated with the Seroquel. The patient was then administered the first loading dose of Invega Sustenna on 03/16/2021. The patient's Effexor was also titrated up to 150 mg by mouth daily. The patient displayed significant improvement on this regimen and began to socialize with peers and staff appropriately. The day of discharge, patient is not reporting any suicidal or homicidal ideation, intention, and/or plan. He is not reporting any auditory or visual hallucinations. He denies any paranoia or other delusions. Patient does have a significant history of substance abuse including cocaine and methamphetamine abuse and was counseled at length on abstaining from all substances including alcohol and marijuana and these above-mentioned substances. The patient was also scheduled for rehabilitation on 03/25/2021 at [facility]. Patient denies any access to firearms or other weapons. Prior to discharge, family meeting will be arranged by social transgressions ensure safety. Mental status exam: General Appearance: Patient appears to be stated age is alert, pleasant, and cooperative. Patient is in no acute distress and has fair hygiene and grooming. Behavior: Patient is calmly seated without any agitated behavior. Speech: Patient's speech is fluent and nonpressured. Mood/Affect: Patient reports their mood is "much better", affect is congruent and euthymic. Suicidality/Homicidality: Patient denies having any suicidal or homicidal ideation intent or plan. Perceptions: Patient denies any auditory or visual hallucinations. Though content/process: There is no evidence of any delusional thought content and thought process is linear and goal-directed. He is future oriented. Memory and concentration: AOX3, grossly intact for the purposes of this session. Can spell "WORLD" backwards correctly. Judgment and insight: Improved with guarded prognosis Vital Signs Temp 97.8 F 03/19/21 08:09 Pulse 71 03/19/21 10:30 Resp 18 03/17/21 08:18 BP 104/66 03/19/21 10:30 Pulse Ox 99 03/19/21 06:58 Impression: Major depressive disorder, recurrent, severe, with psychotic features Alcohol use disorder and cocaine use disorder Methamphetamine use disorder Nicotine dependence Plan: -Continue with discharge today as patient has improved and stabilized psychiatrically and is not currently an imminent threat to himself and/or others. Patient will remain at chronically elevated risk for harm to self and/or others due to his impulsivity and polysubstance abuse. -Continue medications: We will continue oral Invega 9 mg by mouth daily for 7 days. Invega Sustenna 234 mg IM was administered on 03/16/2021. He will receive 156 g IM in 28 days. Habitrol patches for nicotine cessation Effexor XR 150 mg by mouth daily for depression -Patient was counseled on the need for medication compliance and appropriate follow-up at mental health and also primary care for medical issues. Patient verbalized understanding and agreed. -Social work to arrange for and conduct family meeting to ensure safety upon discharge and answer any questions/concerns Social work also to arrange for autumn diez follow up appointments with [facility] for psychiatric care along with follow up with primary care provider. -Patient counseled on abstaining from recreational drugs and marijuana and alcohol. Was informed/educated on the adverse effects on their physical and mental health. Patient verbally agreed and understood. Patient is scheduled for [facility] on 03/25/2021. -Patient was instructed to return to the hospital or seek immediate medical care if their psychiatric or medical symptoms do worsen or reoccur. -Psychoeducation and supportive therapy provided to patient. Risks and benefits of pharmacological treatment versus the risks and benefits of nontreatment weight and discussed. Informed consent discussion held. Common side effects of psychotropics discussed such as, but not limited to headache, GI disturbance, sexual dysfunction, movement disorders, sedation, and orthostatic hypotension. Life threatening and blackbox warnings of prescribed medications also discussed. Potential risks of operating a vehicle or heavy machinery discussed with patient at length. Advised on importance of compliance and a reliable and responsible manner. Patient advised to review FDA consumer labeling of all medications prior to taking. Patient verbalized understanding of potential risks, and agrees with current treatment plan. Patient advised to medically contact physician/emergency personnel if any acute changes in condition occur. Allergies Allergy/AdvReac Type Severity Reaction Status Date / Time blueberry Allergy Rash/Hives Verified 02/19/21 16:29 nitroglycerin Allergy Swelling Verified 02/19/21 16:29 Patient Condition at Discharge: Stable Plan - Discharge Summary Discharge Rx Participant: No New Discharge Prescriptions: New Venlafaxine HCl ER [Effexor XR] 150 mg PO DAILY 30 Days capsule Aspirin 81 mg PO DAILY 30 Days Nicotine 14Mg/24Hr Patch [Habitrol] 1 patch TRANSDERM DAILY 30 Days patch Paliperidone [Invega] 9 mg PO HS 7 Days tablet Paliperidone IM [Invega Sustenna] 156 mg IM QMONTHLY #1 each Continue Metoprolol Succinate [Toprol XL] 50 mg PO DAILY Atorvastatin Calcium [Lipitor] 20 mg PO HS Ascorbic Acid [Vitamin C] 500 mg PO DAILY 30 Days #30 tablet Zinc Sulfate [Orazinc] 220 mg PO DAILY 14 Days #14 cap Cholecalciferol [Vitamin D3 (25 Mcg = 1000 Iu)] 50 mcg PO DAILY 30 Days #60 tab Discontinued HYDROcodone/APAP 10-325MG [[facility] 10-325] 1 tab PO QID PRN PRN Reason: Pain Ibuprofen [Motrin Ib] 800 mg PO Q8H PRN PRN Reason: Pain Or Fever > 100.5 QUEtiapine [SEROquel] 300 mg PO HS 30 Days #90 tab Aspirin EC [Ecotrin Low Dose] 81 mg PO DAILY Nicotine 14Mg/24Hr Patch [Habitrol] 1 patch TRANSDERM DAILY patch Venlafaxine HCl ER [Effexor XR] 150 mg PO DAILY 30 Days #30 cap Discharge Medication List Atorvastatin Calcium [Lipitor] 20 mg PO HS 02/19/21 [History] Metoprolol Succinate [Toprol XL] 50 mg PO DAILY 02/19/21 [History] Zinc Sulfate [Orazinc] 220 mg PO DAILY 14 Days #14 cap 02/25/21 [Rx] Ascorbic Acid [Vitamin C] 500 mg PO DAILY 30 Days #30 tablet 02/27/21 [Rx] Cholecalciferol [Vitamin D3 (25 Mcg = 1000 Iu)] 50 mcg PO DAILY 30 Days #60 tab 02/27/21 [Rx] Aspirin 81 mg PO DAILY 30 Days 03/19/21 [Rx] Nicotine 14Mg/24Hr Patch [Habitrol] 1 patch TRANSDERM DAILY 30 Days patch 03/19/21 [Rx] Paliperidone IM [Invega Sustenna] 156 mg IM QMONTHLY #1 each 03/19/21 [Rx] Paliperidone [Invega] 9 mg PO HS 7 Days tablet 03/19/21 [Rx] Venlafaxine HCl ER [Effexor XR] 150 mg PO DAILY 30 Days capsule 03/19/21 [Rx] Follow up Appointment(s)/Referral(s): [facility] [Outside] - 03/25/21 11:00 am (j intake 03/25 @ 11:00 If unable to go please call to cancel ) Patient Instructions/Handouts: Cocaine Abuse (DC), Mood Disorders (DC), Depression (DC), Methamphetamine Abuse (DC) Activity/Diet/Wound Care/Special Instructions: Activity and diet as tolerated. Avoid the use of street drugs and alcohol. Take all medications as prescribed. When you are in need of refills on your medications please contact your medical provider and/or outpatient psychiatrist to have this done. Please go to scheduled outpatient appointment for aftercare treatment. If symptoms return or become worse, call the crisis line at and/or go to the nearest emergency room for evaluation Discharge Disposition: HOME SELF-CARE
== END 2021-03-19 11:41 | disposition home or self-care (01) | DRG 885 ==
LOC: 3MHU 16:03
PROVIDERS: ADMIT Psychiatry & Neurology Psychiatry; ATTEND Psychiatry & Neurology Psychiatry
DX: F32.3 Major depressive disorder, single episode, severe with psychotic features (principal); R45.851 Suicidal ideations; E78.5 Hyperlipidemia, unspecified; F10.10 Alcohol abuse, uncomplicated; F14.10 Cocaine abuse, uncomplicated; F15.10 Other stimulant abuse, uncomplicated; F17.210 Nicotine dependence, cigarettes, uncomplicated; F43.10 Post-traumatic stress disorder, unspecified; I10 Essential (primary) hypertension; I25.10 Atherosclerotic heart disease of native coronary artery without angina pectoris; I25.2 Old myocardial infarction; R45.850 Homicidal ideations; Z71.51 Drug abuse counseling and surveillance of drug abuser; Z71.89 Other specified counseling; M19.90 Unspecified osteoarthritis, unspecified site; Z90.49 Acquired absence of other specified parts of digestive tract; Z79.82 Long term (current) use of aspirin; Z79.899 Other long term (current) drug therapy; Z82.49 Family history of ischemic heart disease and other diseases of the circulatory system; Z86.16 Personal history of COVID-19; Z95.1 Presence of aortocoronary bypass graft; Z95.5 Presence of coronary angioplasty implant and graft; Z81.1 Family history of alcohol abuse and dependence; Z83.6 Family history of other diseases of the respiratory system; Z98.890 Other specified postprocedural states

== ENCOUNTER 2021-04-18 08:34 | Day surgery (SDC) | payer MEDICARE, OTHER ==
[2021-04-17 08:21] VITALS: BMI 23.6
[~2021-04-18 08:34] MED LIST: DEXAMETHASONE SOD PHOSPHATE 4 MG/ML 1 ML VIAL IV ONE; HEPARIN SODIUM,PORCINE/PF 5,000 UNIT/0.5 ML SYRINGE SQ PRN; HYDROmorphone 0.5 MG/0.5 ML SYRINGE IVP PRN; LACTATED RINGERS 1,000 ML IV SCH; MIDAZOLAM 2 MG/2 ML VIAL IV PRN; ONDANSETRON 4 MG/2 ML VIAL IVP ONE; Pre Op ABX Message 1 EACH MISC MISCELLANE ONE; SCOPOLAMINE 1.5MG/72HR PATCH TRANSDERM ONE
[2021-04-18] MEDS ORDERED: BUPIVACAIN-EPI 0.25%-1:200,000 30 ML VIAL SQ ONE ×2 (09:49→11:23)
[2021-04-18] MEDS ORDERED: ONDANSETRON 4 MG/2 ML VIAL IVP ONE (10:00)
[2021-04-18] MEDS ORDERED: GABAPENTIN 300 MG CAP PO STA (10:29)
[2021-04-18] MEDS ORDERED: ACETAMINOPHEN TAB 500 MG TAB PO STA (10:29)
[2021-04-18] MEDS ORDERED: TAMSULOSIN 0.4 MG CAP.ER.24H PO STA (10:30)
[2021-04-18] MEDS ORDERED: MELOXICAM 7.5 MG TAB PO STA (10:33)
[2021-04-18] MEDS ORDERED: ACETAMINOPHEN TAB 500 MG TAB ONE (10:33)
--- NOTE | 2021-04-18 10:34 | P.GSHP ---
History of Present Illness H&P Date: 04/18/21 CHIEF COMPLAINT: Back mass HISTORY OF PRESENT ILLNESS: The patient is a 60 year-old male with history of mass along the mid back. He presents today for surgical excision. PAST MEDICAL HISTORY: Please see list. PAST SURGICAL HISTORY: Please see list. MEDICATIONS: Please see list. ALLERGIES: Please see list. SOCIAL HISTORY: Please see list. FAMILY HISTORY: No reports of Crohn disease or ulcerative colitis. REVIEW OF ORGAN SYSTEMS: CONSTITUTIONAL: No reports of fevers or chills. GI: Denies any blood in stools or constipation. PHYSICAL EXAM: VITAL SIGNS: Stable Musculoskeletal: No clubbing cyanosis or edema SKIN: Mid back lesion 4-cm GENERAL: Well developed and in no acute distress. Pleasant. HEENT: No sclera icterus. Extraocular movements grossly intact. Moist buccal mucosa. Head is atraumatic, normocephalic. Hears conversational speech. No nasal drainage. NECK: Supple without lymphadenopathy. No JV distention. CHEST: Non-labored respirations and equal bilateral excursions. CARDIOVASCULAR: Regular rate and rhythm. Palpable 2+ radial pulses. ABDOMEN: Soft. Non-tender. Nondistended. NEUROLOGIC: No focal or lateralizing signs. PSYCH: Appropriate affect. Alert and oriented to person, place and time. ASSESSMENT: 1. Mid back mass PLAN: 1. Will proceed of excision of subcutaneous tumor along the back. 2. DVT prophylaxis. 3. Antibiotic prophylaxis. 4. Time of recovery, at least one week. Past Medical History Past Medical History: Coronary Artery Disease (CAD), Chest Pain / Angina, Hyperlipidemia, Myocardial Infarction ([place]), Osteoarthritis (OA) Additional Past Medical History / Comment(s): arthritis in back and bilateral knees,hx hiatal hernia Last Myocardial Infarction Date:: 2004 History of Any Multi-Drug Resistant Organisms: None Reported Past Surgical History: Bowel Resection, Heart Catheterization With Stent Additional Past Surgical History / Comment(s): Cardiac stents x 3, bowel surgery for pinpoint hole in bowel, L knee arthroscopy, colonoscopy/benign polypectomies,hiatal hernia repair Past Anesthesia/Blood Transfusion Reactions: No Reported Reaction Date of Last Stent Placement:: 2013 Smoking Status: Current every day smoker - Past Family History Father Family Medical History: Respiratory Disorder Additional Family Medical History / Comment(s): Father at age 64 from Black lung disease Mother Family Medical History: Hypertension, Myocardial Infarction ([place]) Additional Family Medical History / Comment(s): Mother of an [place] at 78yrs old. Brother(s) Family Medical History: Myocardial Infarction ([place]) Additional Family Medical History / Comment(s): Patient has 10 brothers and 2 from myocardial infarction and had history of alcoholism. Sister(s) Family Medical History: Hypertension, Myocardial Infarction ([place]) Additional Family Medical History / Comment(s): He has 7 sisters that are alive with no major medical problems. He has one son that has and one daughter that is alive and okay. Medications and Allergies Home Medications Medication Instructions Recorded Confirmed Type Atorvastatin Calcium [Lipitor] 20 mg PO HS 02/19/21 04/18/21 History Ascorbic Acid [Vitamin C] 500 mg PO DAILY 30 Days #30 tablet 02/27/21 04/18/21 Rx Cholecalciferol [Vitamin D3 (25 50 mcg PO DAILY 30 Days #60 tab 02/27/21 04/18/21 Rx Mcg = 1000 Iu)] Aspirin 81 mg PO DAILY 30 Days 03/19/21 04/18/21 Rx Paliperidone IM [Invega Sustenna] 156 mg IM QMONTHLY #1 each 03/19/21 04/18/21 Rx Allergies Allergy/AdvReac Type Severity Reaction Status Date / Time blueberry Allergy Rash/Hives Verified 04/18/21 09:31 nitroglycerin Allergy Swelling Verified 04/18/21 09:31 Surgical - Exam Vital Signs Temp Pulse Resp BP Pulse Ox 98.9 F 60 18 146/96 98 04/18/21 09:45 04/18/21 09:45 04/18/21 09:45 04/18/21 09:45 04/18/21 09:45
[2021-04-18] MEDS ORDERED: HEPARIN SODIUM,PORCINE/PF 5,000 UNIT/0.5 ML SYRINGE SQ PRN (10:35)
[2021-04-18 10:39] LABS: Basophils % (A) 1 %; Eosinophils % (A) 1 %; HCT 37.3 % (39.0-53.0); HGB 12.2 gm/dL (13.0-17.5); Lymphocytes # (A) 1.6 k/uL (1.0-4.8); Lymphocytes % (A) 41 %; MCHC 32.6 g/dL (31.0-37.0); MCV 101.2 fL (80.0-100.0); Macrocytosis Slight; Mean Platelet Volume 8.7; Monocytes # (A) 0.4 k/uL (0-1.0); Monocytes % (A) 9 %; Neutrophils # (A) 1.7 k/uL (1.3-7.7); Neutrophils % (A) 43 %; Platelet Count 155 k/uL (150-450); RBC 3.69 m/uL (4.30-5.90); WBC 3.9 k/uL (3.8-10.6)
[2021-04-18] MEDS ORDERED: ePHEDrine 50 MG/ML 1 ML VIAL ONE (10:40)
[2021-04-18] MEDS ORDERED: fentaNYL (PF) 50 MCG/ML 2 ML AMP ONE (10:40)
[2021-04-18] MEDS ORDERED: PROPOFOL 10 MG/ML 20 ML VIAL IV ONE (10:40)
[2021-04-18] MEDS ORDERED: MIDAZOLAM 2 MG/2 ML VIAL ONE (10:40)
[2021-04-18] MEDS ORDERED: SUCCINYLCHOLINE CHLORIDE 100 MG/5 ML SYR IV ONE (10:40)
[2021-04-18] MEDS ORDERED: LIDOCAINE 1% INJ 10MG/ML (20 ML MDV) ONE (10:40)
[2021-04-18 12:03] VITALS: TEMP 97.3
--- NOTE | 2021-04-18 12:42 | P.OP ---
Date of Procedure: 04/18/21 Description of Procedure: SURGEON: SYEDA TAVERA MD MEAT STRINGER: None. PREOPERATIVE DIAGNOSES: 1. Mid back tumor 2. Schizophrenia 3. History of alcohol abuse disorder 4. Hyperlipidemia 5. Coronary artery disease 6. History of cardiac catheterization the prior stent 7. History of myocardial infarction 8. Bipolar depression disorder 9. Posttraumatic stress disorder 10. Tobacco abuse disorder POSTOPERATIVE DIAGNOSES: 1. 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 Schizophrenia 3. History of alcohol abuse disorder 4. Hyperlipidemia 5. Coronary artery disease 6. History of cardiac catheterization the prior stent 7. History of myocardial infarction 8. Bipolar depression disorder 9. Posttraumatic stress disorder 10. Tobacco abuse disorder PROCEDURES PERFORMED: 1. Excision of deep subfascial mid back mass, 9.5 x 3 cm 2. Complex closure mid back incision, 9.5 cm Anesthesia: GETA, local Estimated Blood Loss (ml): 10 Pathology: other (back mass) Condition: stable Disposition: same day COMPLICATIONS: None. Operative Findings: 1. Excision of deep subfascial tumor mid back tumor 4 cm 2. Wide undermining for superior-inferior flaps performed complex closure. INDICATIONS: The patient is a 60-year-old male who presents with symptomatic mid back tumor. Benefits and risks of surgical intervention were described including bleeding, infection, seroma, pain and recurrence. Informed consent was obtained. DESCRIPTION OR PROCEDURE: In the preoperative area, the area of concern was marked with indelible marker. Patient was brought into the operating room. After general induction, he was positioned prone position. The back was prepped and draped in a standard sterile fashion with ChloraPrep. Timeout protocol was confirmed with the surgical team regarding the patient's name, procedure to be performed including preoperative medications. DVT prophylaxis was confirmed. A field block was placed of the upper mid back. An transverse elliptical incision using #10 blade was made along the marking into the dermis and subcutaneous tissue. Electro-Bovie cautery was used to enter deep into the fascia firm tumor was removed in total with borders of 9.5 x 3 cm. The tumor was deep to the fascial insertion of the mid back. Wide undermining for the superior and inferior skin flaps over 3 cm inferiorly inferiorly were obtained for complex closure. 0 Vicryl for the fascia and deep subcutaneous tissue was placed in interrupted fashion. 3-0 Monocryl in a running subcuticular fashion was placed along the dermis. The skin was cleansed and Exofin tape with liquid was applied. The incision was covered with Optifoam dressing. At the end of the procedure, needle, sponge, and instrument count was verified correct by surgical manager. The patient tolerated the procedure well. Plan - Discharge Summary Discharge Rx Participant: No New Discharge Prescriptions: New Ibuprofen [Motrin] 600 mg PO Q8HR PRN #30 tab PRN Reason: Pain Acetaminophen Tab [Tylenol Tab] 1,000 mg PO Q6HR PRN #30 tablet PRN Reason: Pain Continue Atorvastatin Calcium [Lipitor] 20 mg PO HS Ascorbic Acid [Vitamin C] 500 mg PO DAILY 30 Days #30 tablet Cholecalciferol [Vitamin D3 (25 Mcg = 1000 Iu)] 50 mcg PO DAILY 30 Days #60 tab Aspirin 81 mg PO DAILY 30 Days Paliperidone IM [Invega Sustenna] 156 mg IM QMONTHLY #1 each Discharge Medication List Atorvastatin Calcium [Lipitor] 20 mg PO HS 02/19/21 [History] Ascorbic Acid [Vitamin C] 500 mg PO DAILY 30 Days #30 tablet 02/27/21 [Rx] Cholecalciferol [Vitamin D3 (25 Mcg = 1000 Iu)] 50 mcg PO DAILY 30 Days #60 tab 02/27/21 [Rx] Aspirin 81 mg PO DAILY 30 Days 03/19/21 [Rx] Paliperidone IM [Invega Sustenna] 156 mg IM QMONTHLY #1 each 03/19/21 [Rx] Acetaminophen Tab [Tylenol Tab] 1,000 mg PO Q6HR PRN #30 tablet 04/18/21 [Rx] Ibuprofen [Motrin] 600 mg PO Q8HR PRN #30 tab 04/18/21 [Rx] Follow up Appointment(s)/Referral(s): Syeda Tavera MD [STAFF PHYSICIAN] - 04/25/21 Patient Instructions/Handouts: *[facility] - Managing Your Pain After Surgery Without Opioids, How to Stop Smoking (DC), Excision of Skin Lesion (DC) Activity/Diet/Wound Care/Special Instructions: NO WIDE MOTIONS OF THE SHOULDERS/ARMS FOR 1 WEEK until 04/25/21 NO BENDING AT THE HIPS WHILE SITTING until 04/25/21 NO EXTREME STRETCHING OF THE BACK until 04/25/21 See instructions on dressing. DO NOT REMOVE DRESSING. No lifting over 10 pounds in 2 weeks, 05/02/21 May shower. No bath tub soaks for two weeks 05/02/21 Diet as tolerated. Discharge Disposition: HOME SELF-CARE
[2021-04-18 13:15] VITALS: BP 141/86; PULSE 74; RESP 16
== END 2021-04-18 13:35 | disposition home or self-care (01) ==
LOC: OR 08:34
PROVIDERS: ATTEND Surgery Plastic and Reconstructive Surgery
DX: L72.0 Epidermal cyst (principal); I25.119 Atherosclerotic heart disease of native coronary artery with unspecified angina pectoris; E78.5 Hyperlipidemia, unspecified; I25.2 Old myocardial infarction; F20.9 Schizophrenia, unspecified; M19.90 Unspecified osteoarthritis, unspecified site; Z90.49 Acquired absence of other specified parts of digestive tract; Z95.5 Presence of coronary angioplasty implant and graft; Z98.890 Other specified postprocedural states; F10.159 Alcohol abuse with alcohol-induced psychotic disorder, unspecified; F17.200 Nicotine dependence, unspecified, uncomplicated; Z83.6 Family history of other diseases of the respiratory system; Z82.49 Family history of ischemic heart disease and other diseases of the circulatory system; Z81.1 Family history of alcohol abuse and dependence; Z79.82 Long term (current) use of aspirin; Z79.899 Other long term (current) drug therapy; Z88.8 Allergy status to other drugs, medicaments and biological substances; Z91.018 Allergy to other foods; F31.9 Bipolar disorder, unspecified; F43.10 Post-traumatic stress disorder, unspecified
CPT/HCPCS: 11406; 13101; 13102; 88304; 85025; J2250; J1100; J0690; J2405; J2001; J3010; J0330; J2704; J1644

== ENCOUNTER 2021-08-14 12:19 | Observation (INO) | payer MEDICARE, OTHER ==
[2021-08-14] MEDS ORDERED: ASPIRIN 81 MG PO STA (12:49)
--- NOTE | 2021-08-14 12:52 | ED ---
General Adult HPI - General Chief complaint: Chest Pain Stated complaint: Chest pain Time Seen by Provider: 08/14/21 12:34 Source: patient, RN notes reviewed Mode of arrival: ambulatory Limitations: no limitations - History of Present Illness Initial comments: Patient is a pleasant [age]-year-old male presenting to emergency Department with multiple complaints. Patient does have chest pain this started today. Discomfort feels like heaviness and is somewhat severe. Discomfort is similar to previous SC requiring stent. Patient has some mild exertional dyspnea. Patient also has some nausea. No diaphoresis. Patient has been having 1 week of generalized aching, congestion, sore throat, mild cough. Patient is also had some loose stools. Decreased appetite. - Related Data Home Medications Medication Instructions Recorded Confirmed QUEtiapine [SEROquel] 300 mg PO HS 08/14/21 08/14/21 Venlafaxine HCl [Effexor XR] 150 mg PO DAILY 08/14/21 08/14/21 Previous Rx's Medication Instructions Recorded Aspirin 81 mg PO DAILY 30 Days 03/19/21 Allergies Allergy/AdvReac Type Severity Reaction Status Date / Time blueberry Allergy Rash/Hives Verified 08/14/21 13:55 nitroglycerin Allergy Swelling Verified 08/14/21 13:55 Review of Systems ROS Statement: Those systems with pertinent positive or pertinent negative responses have been documented in the HPI. ROS Other: All systems not noted in ROS Statement are negative. Constitutional: Denies: fever Eyes: Denies: eye pain ENT: Reports: throat pain. Denies: ear pain Respiratory: Reports: as per HPI, cough Cardiovascular: Denies: chest pain Endocrine: Denies: fatigue Gastrointestinal: Reports: diarrhea. Denies: abdominal pain, vomiting Genitourinary: Denies: dysuria Musculoskeletal: Denies: back pain Skin: Denies: rash Neurological: Denies: weakness Past Medical History Past Medical History: Coronary Artery Disease (CAD), Chest Pain / Angina, Hyperlipidemia, Myocardial Infarction ([place]), Osteoarthritis ([place]) Additional Past Medical History / Comment(s): arthritis in back and bilateral knees,hx hiatal hernia Last Myocardial Infarction Date:: 2004 History of Any Multi-Drug Resistant Organisms: None Reported Past Surgical History: Bowel Resection, Heart Catheterization With Stent Additional Past Surgical History / Comment(s): Cardiac stents x 3, bowel surgery for pinpoint hole in bowel, L knee arthroscopy, colonoscopy/benign polypectomies,hiatal hernia repair Past Anesthesia/Blood Transfusion Reactions: No Reported Reaction Date of Last Stent Placement:: 2013 Past Psychological History: Bipolar, Depression, PTSD, Schizophrenia Smoking Status: Current every day smoker Past Alcohol Use History: Occasional Past Drug Use History: None Reported - Past Family History Father Family Medical History: Respiratory Disorder Additional Family Medical History / Comment(s): Father at age 64 from Black lung disease Mother Family Medical History: Hypertension, Myocardial Infarction ([place]) Additional Family Medical History / Comment(s): Mother of an [place] at 78yrs old. Brother(s) Family Medical History: Myocardial Infarction ([place]) Additional Family Medical History / Comment(s): Patient has 10 brothers and 2 from myocardial infarction and had history of alcoholism. Sister(s) Family Medical History: Hypertension, Myocardial Infarction ([place]) Additional Family Medical History / Comment(s): He has 7 sisters that are alive with no major medical problems. He has one son that has and one daughter that is alive and okay. General Exam Limitations: no limitations General appearance: alert, in no apparent distress Head exam: Present: normocephalic Eye exam: Present: normal appearance ENT exam: Present: normal oropharynx, TM's normal bilaterally Neck exam: Present: normal inspection. Absent: meningismus, lymphadenopathy Respiratory exam: Present: normal lung sounds bilaterally. Absent: chest wall tenderness Cardiovascular Exam: Present: regular rate, normal rhythm Expanded Peripheral pulses: 2+: Radial (R), Radial (L), Posterior Tibialis (R), Posterior Tibialis (L) GI/Abdominal exam: Present: soft. Absent: tenderness Extremities exam: Present: normal inspection. Absent: pedal edema, calf tenderness Neurological exam: Present: alert Psychiatric exam: Present: normal affect, normal mood Skin exam: Present: normal color Course Vital Signs 08/14/21 08/14/21 08/14/21 12:25 13:48 14:30 Temperature 98.4 F Pulse Rate 79 73 Respiratory 16 18 18 Rate Blood Pressure 114/74 146/95 O2 Sat by Pulse 99 95 Oximetry EKG Findings - EKG Comments: EKG Findings:: Sinus rhythm with a rate of 69. AK 146. QRS 89. QT 416. QTc 436. Left axis. LVH criteria. Nonspecific ST-T. Medical Decision Making - Medical Decision Making Patient reevaluated and resting comfortably in bed. Patient states symptoms have somewhat improved. Patient updated on results and plan. Case was discussed with Dr. Myers, who will admit covering hospital observation call. - Lab Data Result diagrams: 08/14/21 13:04 08/14/21 13:04 Lab Results 08/14/21 08/14/21 08/14/21 Range/Units 13:04 13:04 13:04 WBC 4.1 (3.8-10.6) k/uL RBC 3.68 L (4.30-5.90) m/uL Hgb 12.4 L (13.0-17.5) gm/dL Hct 37.2 L (39.0-53.0) % MCV 101.2 H (80.0-100.0) fL MCH 33.7 (25.0-35.0) pg MCHC 33.3 (31.0-37.0) g/dL RDW 14.3 (11.5-15.5) % Plt Count 121 L (150-450) k/uL MPV 9.4 Neutrophils % (Manual) 40 % Lymphocytes % (Manual) 52 % Monocytes % (Manual) 6 % Eosinophils % (Manual) 2 % Neutrophils # (Manual) 1.64 (1.3-7.7) k/uL Lymphocytes # (Manual) 2.13 (1.0-4.8) k/uL Monocytes # (Manual) 0.25 (0-1.0) k/uL Eosinophils # (Manual) 0.08 (0-0.7) k/uL Nucleated RBCs 0 (0-0) /100 WBC Manual Slide Review Performed Macrocytosis Slight PT 9.7 (9.0-12.0) sec INR 0.9 (<1.2) APTT 23.2 (22.0-30.0) sec D-Dimer 3.22 H (<0.60) mg/L FEU Sodium 138 (137-145) mmol/L Potassium 4.4 (3.5-5.1) mmol/L Chloride 105 (98-107) mmol/L Carbon Dioxide 24 (22-30) mmol/L Anion Gap 9 mmol/L BUN 9 (9-20) mg/dL Creatinine 0.73 (0.66-1.25) mg/dL Est GFR (CKD-EPI)AfAm >90 (>60 ml/min/1.73 sqM) Est GFR (CKD-EPI)NonAf >90 (>60 ml/min/1.73 sqM) Glucose 67 L (74-99) mg/dL Calcium 9.6 (8.4-10.2) mg/dL Magnesium 1.9 (1.6-2.3) mg/dL Total Bilirubin 0.7 (0.2-1.3) mg/dL AST 49 (17-59) U/L ALT 34 (4-49) U/L Alkaline Phosphatase 46 (38-126) U/L Troponin I (0.000-0.034) ng/mL NT-Pro-B Natriuret Pep pg/mL Total Protein 8.5 H (6.3-8.2) g/dL Albumin 4.8 (3.5-5.0) g/dL Amylase 110 (30-110) U/L Lipase 128 (23-300) U/L Coronavirus (PCR) (Not Detectd) Influenza Type A RNA (Not Detectd) Influenza Type B (PCR) (Not Detectd) Group A Strep (PCR) (Not Detectd) 08/14/21 08/14/21 08/14/21 Range/Units 13:04 13:04 13:05 WBC (3.8-10.6) k/uL RBC (4.30-5.90) m/uL Hgb (13.0-17.5) gm/dL Hct (39.0-53.0) % MCV (80.0-100.0) fL MCH (25.0-35.0) pg MCHC (31.0-37.0) g/dL RDW (11.5-15.5) % Plt Count (150-450) k/uL MPV Neutrophils % (Manual) % Lymphocytes % (Manual) % Monocytes % (Manual) % Eosinophils % (Manual) % Neutrophils # (Manual) (1.3-7.7) k/uL Lymphocytes # (Manual) (1.0-4.8) k/uL Monocytes # (Manual) (0-1.0) k/uL Eosinophils # (Manual) (0-0.7) k/uL Nucleated RBCs (0-0) /100 WBC Manual Slide Review Macrocytosis PT (9.0-12.0) sec INR (<1.2) APTT (22.0-30.0) sec D-Dimer (<0.60) mg/L FEU Sodium (137-145) mmol/L Potassium (3.5-5.1) mmol/L Chloride (98-107) mmol/L Carbon Dioxide (22-30) mmol/L Anion Gap mmol/L BUN (9-20) mg/dL Creatinine (0.66-1.25) mg/dL Est GFR (CKD-EPI)AfAm (>60 ml/min/1.73 sqM) Est GFR (CKD-EPI)NonAf (>60 ml/min/1.73 sqM) Glucose (74-99) mg/dL Calcium (8.4-10.2) mg/dL Magnesium (1.6-2.3) mg/dL Total Bilirubin (0.2-1.3) mg/dL AST (17-59) U/L ALT (4-49) U/L Alkaline Phosphatase (38-126) U/L Troponin I 0.015 (0.000-0.034) ng/mL NT-Pro-B Natriuret Pep 30 pg/mL Total Protein (6.3-8.2) g/dL Albumin (3.5-5.0) g/dL Amylase (30-110) U/L Lipase (23-300) U/L Coronavirus (PCR) (Not Detectd) Influenza Type A RNA Not Detected (Not Detectd) Influenza Type B (PCR) Not Detected (Not Detectd) Group A Strep (PCR) (Not Detectd) 08/14/21 08/14/21 Range/Units 13:05 14:00 WBC (3.8-10.6) k/uL RBC (4.30-5.90) m/uL Hgb (13.0-17.5) gm/dL Hct (39.0-53.0) % MCV (80.0-100.0) fL MCH (25.0-35.0) pg MCHC (31.0-37.0) g/dL RDW (11.5-15.5) % Plt Count (150-450) k/uL MPV Neutrophils % (Manual) % Lymphocytes % (Manual) % Monocytes % (Manual) % Eosinophils % (Manual) % Neutrophils # (Manual) (1.3-7.7) k/uL Lymphocytes # (Manual) (1.0-4.8) k/uL Monocytes # (Manual) (0-1.0) k/uL Eosinophils # (Manual) (0-0.7) k/uL Nucleated RBCs (0-0) /100 WBC Manual Slide Review Macrocytosis PT (9.0-12.0) sec INR (<1.2) APTT (22.0-30.0) sec D-Dimer (<0.60) mg/L FEU Sodium (137-145) mmol/L Potassium (3.5-5.1) mmol/L Chloride (98-107) mmol/L Carbon Dioxide (22-30) mmol/L Anion Gap mmol/L BUN (9-20) mg/dL Creatinine (0.66-1.25) mg/dL Est GFR (CKD-EPI)AfAm (>60 ml/min/1.73 sqM) Est GFR (CKD-EPI)NonAf (>60 ml/min/1.73 sqM) Glucose (74-99) mg/dL Calcium (8.4-10.2) mg/dL Magnesium (1.6-2.3) mg/dL Total Bilirubin (0.2-1.3) mg/dL AST (17-59) U/L ALT (4-49) U/L Alkaline Phosphatase (38-126) U/L Troponin I (0.000-0.034) ng/mL NT-Pro-B Natriuret Pep pg/mL Total Protein (6.3-8.2) g/dL Albumin (3.5-5.0) g/dL Amylase (30-110) U/L Lipase (23-300) U/L Coronavirus (PCR) Not Detected (Not Detectd) Influenza Type A RNA (Not Detectd) Influenza Type B (PCR) (Not Detectd) Group A Strep (PCR) NOT DETECTED (Not Detectd) - Radiology Data Radiology results: report reviewed (Computed tomography scan of the chest negative for pulmonary embolism), image reviewed (Chest x-ray shows no acute process) Disposition Clinical Impression: Chest pain Disposition: ADMITTED IP TO THIS HOSP Is patient prescribed a controlled substance at d/c from ED?: No Referrals: Molly Deras MD [Primary Care Provider] - 1-2 days Time of Disposition: 15:11
[2021-08-14 13:29] LABS: HCT 37.2 % (39.0-53.0); HGB 12.4 gm/dL (13.0-17.5); INR 0.9 (<1.2); MCH 33.7 pg (25.0-35.0); MCHC 33.3 g/dL (31.0-37.0); MCV 101.2 fL (80.0-100.0); Macrocytosis Slight; Mean Platelet Volume 9.4; Partial Thromboplastin Time 23.2 sec (22.0-30.0); Platelet Count 121 k/uL (150-450); Prothrombin Time 9.7 sec (9.0-12.0); RBC 3.68 m/uL (4.30-5.90); RDW 14.3 % (11.5-15.5); WBC 4.1 k/uL (3.8-10.6)
[2021-08-14 13:44] LABS: Eosinophils # (M) 0.08 k/uL (0-0.7); Lymphocytes # (M) 2.13 k/uL (1.0-4.8); Monocytes # (M) 0.25 k/uL (0-1.0); Neutrophils # (M) 1.64 k/uL (1.3-7.7); Neutrophils % (M) 40 %; Nucleated Red Blood Cells 0 /100 WBC (0-0); Total Cells Counted 100
--- NOTE | 2021-08-14 13:47 | XR ---
EXAMINATION TYPE: XR chest 2V DATE OF EXAM: 08/14/2021 COMPARISON: Chest x-ray February 20, 2021 HISTORY: Chest pain. TECHNIQUE: Frontal and lateral views of the chest are obtained. FINDINGS: There is mild chronic parenchymal change without suspicious new focal air space opacity, p leural effusion, or pneumothorax seen. The cardiac silhouette size remains within normal limits. Melissa gical clips at gastroesophageal junction are present The osseous structures are intact. IMPRESSION: No acute cardiopulmonary process.
[2021-08-14 13:48] LABS: ALT 34 U/L (4-49); AST 49 U/L (17-59); African American GFR (CKD) >90 (>60 ml/min/1.73 sqM); Albumin 4.8 g/dL (3.5-5.0); Alkaline Phosphatase 46 U/L (38-126); Amylase 110 U/L (30-110); Anion Gap 9 mmol/L; Blood Urea Nitrogen 9 mg/dL (9-20); Calcium 9.6 mg/dL (8.4-10.2); Carbon Dioxide 24 mmol/L (22-30); Chloride 105 mmol/L (98-107); Glucose 67 mg/dL (74-99); Lipase 128 U/L (23-300); Magnesium 1.9 mg/dL (1.6-2.3); Non-African American GFR(CKD) >90 (>60 ml/min/1.73 sqM); Potassium 4.4 mmol/L (3.5-5.1); Sodium 138 mmol/L (137-145); Total Bilirubin 0.7 mg/dL (0.2-1.3); Total Protein 8.5 g/dL (6.3-8.2)
[2021-08-14] MEDS ORDERED: MORPHINE SULFATE 4 MG/ML SYRINGE IVP STA (14:08)
--- NOTE | 2021-08-14 14:55 | CT ---
EXAMINATION TYPE: CT angio chest CT DLP: 310 mGycm, Automated exposure control for dose reduction was used. DATE OF EXAM: 08/14/2021 2:34 PM COMPARISON: Chest radiograph from same day. CT angiogram chest 11/13/2019. CLINICAL INDICATION:Male, 60 years old with history of pain; PE TECHNIQUE/CONTRAST: CTA scan of the thorax is performed without and with IV Contrast, patient injected with 100 ml mL of Isovue 370, pulmonary embolism protocol. MIP images are created and reviewed. FINDINGS: Pulmonary Artery: There is no evidence for a filling defect within the pulmonary vasculature to sugge st acute pulmonary embolism. The pulmonary artery is of normal size. Lungs/Pleura: No evidence of focal consolidation, pleural effusion or pneumothorax. Airway: Large airways are patent. Heart: Heart is within normal limits for size.. Vasculature: No evidence of aortic aneurysm. Mediastinum: No gross evidence of adenopathy. Postsurgical changes to gastroesophageal junction with multiple surgical clips are present. Small hiatal hernia. Musculoskeletal: No acute osseous abnormalities Soft Tissues: Unremarkable. Lower neck: No significant findings. Upper Abdomen: Diffuse low-attenuation to the liver parenchyma.. IMPRESSION: 1. No evidence of pulmonary embolism. 2. No evidence for acute intrathoracic process. 3. Hepatic steatosis. 4. Small hiatal hernia
[2021-08-14] MEDS ORDERED: HYDROcodone/APAP 5-325MG 1 EACH TAB PO PRN (16:30)
[2021-08-14] MEDS ORDERED: ACETAMINOPHEN TAB 325 MG TAB PO PRN (16:30)
[2021-08-14] MEDS ORDERED: MELATONIN 3 MG TABLET PO PRN (16:30)
[2021-08-14] MEDS ORDERED: NALOXONE 0.4 MG/ML 1 ML VIAL IVP PRN (16:38)
[2021-08-14] MEDS: ATORVASTATIN 80 MG TAB PO SCH (16:42)
[2021-08-14] MEDS ORDERED: MORPHINE SULFATE 4 MG/ML SYRINGE IVP PRN (16:48)
--- NOTE | 2021-08-14 16:52 | P.HPIM ---
History of Present Illness H&P Date: 08/14/21 History of Presenting Illness: Patient is a very pleasant 60-year-old male with a past medical history of coronary artery disease status post previous ID with 4 stents, hyperlipidemia, COPD with continued nicotine use reportedly smoking approximately 3 or 4 cigarettes daily (cut down from one pack daily that he was smoking one year ago), and anxiety, depression, PTSD, bipolar disorder, and schizophrenia. In addition patient also reports previous history of alcoholism, however states went to rehab 4 years ago and has been sober since. Patient presented to the emergency department with a chief complaint of chest pain. Patient reports that he began feeling his normal self up until this morning. Patient reports he felt a little off and experienced some exertional dyspnea accompanied by nausea, dizziness, palpitations, and a heaviness to his midsternal chest. Patient describes this pain as constant and states it feels as though an elephant is sitting on his chest which is how he states he felt when he had his previous ID. Patient denies experiencing any headache, changes in vision or hearing, diaphoresis, abdominal pain, vomiting, or experiencing any numbness/ tingling/weakness/swelling in his extremities. Patient underwent full evaluation in the emergency department. EKG was completed revealing normal sinus rhythm at 69 bpm with no noted T-wave or ST abnormalities. Chest x-ray negative for acute cardiopulmonary process. CBC revealing macrocytic anemia with hemoglobin of 12.4 and MCV of 101.2 along with thrombocytopenia with platelet count of 121. CMP was unremarkable. Covid PCR, influenza A, influenza B all negative. Troponin negative at less 0.015. D-dimer was elevated at 3.22 and CTA was completed which was negative for pulmonary emboli revealing hepatic steatosis and small hiatal hernia. Patient admitted under our services with consultation to cardiology. Review of systems: Pertinent positives and negatives as discussed in HPI, a complete review of systems was performed and all other systems are negative. Physical exam: Vital signs reviewed and stable. General: Nontoxic, no distress and appears stated age. Derm: Skin warm and dry, normal coloration for ethnicity. Head: Atraumatic, normocephalic and symmetric. Eyes: EOMs intact, no lid lag, and anicteric sclera Mouth: no lip lesions, mucus membranes moist Cardiovascular: regular rate and rhythm with normal S1S2, no murmur, positive posterior tibial pulses bilaterally, and cap refill < 2 seconds. Lungs: Respirations even, regular, and unlabored on room air. Lungs CTA bilaterally, no rhonchi, no rales, no wheezing, and no accessory muscle usage. Abdominal: soft, nontender to palpation, no guarding, no appreciable organomegaly Ext: ROM intact. No gross muscle atrophy, no edema, no contractures Neuro: Speech clear, face symmetrical and CN II-XII grossly intact with no noted focal neuro deficits Psych: Alert and oriented to person, place, time, and situation. Appropriate and pleasant affect. Assessment and Plan of Care: Chest pain, rule out acute coronary event History of coronary artery disease status post previous ID with 4 stents Hyperlipidemia -Cardiology consult, appreciate further recommendations -Telemetry monitoring and close monitoring of vital signs -Trend troponins -Cardiac diet, NPO at midnight -Aspirin, atorvastatin, and metoprolol -Lipid profile with a.m. labs. -Echocardiogram Psychiatric illnesses including anxiety, depression, PTSD, bipolar disorder, and schizophrenia -Continue daily medication regimen with Effexor and Seroquel The patient is admitted with an anticipated less than 2 midnight stay for evaluation of chest pain CODE STATUS: Full code DVT prophylaxis: Heparin Discussed with: Patient and RN Anticipated discharge date: Likely tomorrow Anticipated discharge place: Home A total of 41 minutes was spent on the care of this complex patient more than 50% of the time was spent in counseling and care coordination. Layo Muller MORTGAGE COLLECTOR rendered care for this patient independently, reviewed the find ings and plan as documented in the note above. I did not physically speak with or examine the patient on this date. Past Medical History Past Medical History: Coronary Artery Disease (CAD), Chest Pain / Angina, Hyperlipidemia, Myocardial Infarction (ID), Osteoarthritis (OA) Additional Past Medical History / Comment(s): arthritis in back and bilateral knees,hx hiatal hernia Last Myocardial Infarction Date:: 2004 History of Any Multi-Drug Resistant Organisms: None Reported Past Surgical History: Bowel Resection, Heart Catheterization With Stent Additional Past Surgical History / Comment(s): Cardiac stents x 3, bowel surgery for pinpoint hole in bowel, L knee arthroscopy, colonoscopy/benign polypectomies,hiatal hernia repair Past Anesthesia/Blood Transfusion Reactions: No Reported Reaction Date of Last Stent Placement:: 2013 Past Psychological History: Bipolar, Depression, PTSD, Schizophrenia Smoking Status: Current every day smoker Past Alcohol Use History: Occasional Past Drug Use History: None Reported - Past Family History Father Family Medical History: Respiratory Disorder Additional Family Medical History / Comment(s): Father at age 64 from Black lung disease Mother Family Medical History: Hypertension, Myocardial Infarction (ID) Additional Family Medical History / Comment(s): Mother of an ID at 78yrs old. Brother(s) Family Medical History: Myocardial Infarction (ID) Additional Family Medical History / Comment(s): Patient has 10 brothers and 2 from myocardial infarction and had history of alcoholism. Sister(s) Family Medical History: Hypertension, Myocardial Infarction (ID) Additional Family Medical History / Comment(s): He has 7 sisters that are alive with no major medical problems. He has one son that has and one daughter that is alive and okay. Medications and Allergies Home Medications Medication Instructions Recorded Confirmed Type Aspirin 81 mg PO DAILY 30 Days 03/19/21 08/14/21 Rx QUEtiapine [SEROquel] 300 mg PO HS 08/14/21 08/14/21 History Venlafaxine HCl [Effexor XR] 150 mg PO DAILY 08/14/21 08/14/21 History Allergies Allergy/AdvReac Type Severity Reaction Status Date / Time blueberry Allergy Rash/Hives Verified 08/14/21 13:55 nitroglycerin Allergy Swelling Verified 08/14/21 13:55 Physical Exam Osteopathic Statement: *. No significant issues noted on an osteopathic structural exam other than those noted in the History and Physical/Consult. Vitals: Vital Signs Temp Pulse Pulse Resp BP BP Pulse Ox 08/14/21 15:52 98.2 F 73 16 131/85 92 L 08/14/21 15:33 98.2 F 74 18 129/89 95 08/14/21 14:30 73 18 146/95 95 08/14/21 13:48 18 08/14/21 12:25 98.4 F 79 16 114/74 99 Intake and Output 08/14/21 08/14/21 08/14/21 06:59 14:59 22:59 Other: # Voids 1 Weight 73.482 kg Results CBC & Chem 7: 08/14/21 13:04 08/14/21 13:04 Labs: Abnormal Lab Results - Last 24 Hours (Table) 08/14/21 08/14/2108/14/22 Range/Units 13:04 13:04 13:04 RBC 3.68 L (4.30-5.90) m/uL Hgb 12.4 L (13.0-17.5) gm/dL Hct 37.2 L (39.0-53.0) % MCV 101.2 H (80.0-100.0) fL Plt Count 121 L (150-450) k/uL D-Dimer 3.22 H (<0.60) mg/L FEU Glucose 67 L (74-99) mg/dL Total Protein 8.5 H (6.3-8.2) g/dL
[2021-08-14] MEDS ORDERED: guaiFENesin 600 MG TABLET.ER PO PRN (17:44)
[2021-08-14] MEDS ORDERED: ARTIFICIAL TEARS-HYPROMELLOSE DROPS 15 ML BTL BOTH EYES PRN (17:44)
[2021-08-14] MEDS: METOPROLOL TARTRATE 12.5 MG TAB PO SCH (19:19)
[2021-08-14] MEDS: HEPARIN SODIUM,PORCINE/PF 5,000 UNIT/0.5 ML SYRINGE SQ SCH (19:20)
[2021-08-14] MEDS ORDERED: QUEtiapine 100 MG TAB PO SCH (21:00)
[2021-08-15] MEDS ORDERED: PANTOPRAZOLE 40 MG TABLET PO SCH (07:30)
[2021-08-15] MEDS: HEPARIN SODIUM,PORCINE/PF 5,000 UNIT/0.5 ML SYRINGE SQ SCH ×2 (07:36→15:38)
[2021-08-15] MEDS ORDERED: REGADENOSON 0.4 MG/5 ML SYRINGE IV PRN (08:55)
[2021-08-15] MEDS ORDERED: CAFFEINE CITRATE 60 MG/3 ML VIAL IV PRN (08:55)
[2021-08-15] MEDS ORDERED: AMINOPHYLLINE 500 MG/20 ML VIAL IV PRN (08:55)
[2021-08-15] MEDS ORDERED: ASPIRIN 325 MG TAB PO SCH (09:00)
[2021-08-15] MEDS ORDERED: VENLAFAXINE HCL ER 150 MG CAP PO SCH (09:00)
[2021-08-15] MEDS ORDERED: NICOTINE 14MG/24HR PATCH TRANSDERM SCH (09:00)
[2021-08-15] MEDS: ATORVASTATIN 80 MG TAB PO SCH (09:05)
[2021-08-15] MEDS: METOPROLOL TARTRATE 12.5 MG TAB PO SCH (09:06)
--- NOTE | 2021-08-15 09:49 | P.CRDCN ---
History of Present Illness Consult date: 08/15/21 Chief complaint: Chest pain History of present illness: This is a 60-year-old -[place] gentleman with history of coronary artery disease and prior stenting of the LAD in the past as well as hypertension and dyslipidemia and history of smoking and alcohol use presented to the hospital again complaining of chest discomfort. He was seen last by our service in 2019 when he presented with alcohol intoxication and a chest discomfort and medical treatment only was advised. Before that in 2019 also he was admitted to the hospital with chest discomfort and at that point he underwent a heart catheterization which revealed mild in-stent restenosis involving the LAD. This time the patient stated that he was in his usual state of health yesterday when he was walking and started experiencing pressure in the middle of the chest with no radiation and no associated symptoms beside sweating. No dizziness or lightheadedness and no presyncope or syncope. The discomfort lasted for about 45 minutes and it was resolved. Since he was admitted to the hospital he has been chest pain-free be he underwent a workup including EKG showing sinus rhythm with no significant ST or T-wave abnormalities and also he underwent a cardiac enzymes came in to be unremarkable and also chest x-ray came in to be unremarkable. D-dimer came in to be abnormal but subsequently he underwent a CTA of the chest which showed no evidence of pulmonary embolism. Currently the patient is chest pain-free Past Medical History Past Medical History: Coronary Artery Disease (CAD), Chest Pain / Angina, Hyperlipidemia, Myocardial Infarction ([place]), Osteoarthritis (OA) Additional Past Medical History / Comment(s): arthritis in back and bilateral knees,hx hiatal hernia Last Myocardial Infarction Date:: 2004 History of Any Multi-Drug Resistant Organisms: None Reported Past Surgical History: Bowel Resection, Heart Catheterization With Stent Additional Past Surgical History / Comment(s): Cardiac stents x 3, bowel surgery for pinpoint hole in bowel, L knee arthroscopy, colonoscopy/benign polypectomies ,hiatal hernia repair Past Anesthesia/Blood Transfusion Reactions: No Reported Reaction Date of Last Stent Placement:: 2013 Past Psychological History: Bipolar, Depression, PTSD, Schizophrenia Smoking Status: Current every day smoker Past Alcohol Use History: Occasional Past Drug Use History: None Reported - Past Family History Father Family Medical History: Respiratory Disorder Additional Family Medical History / Comment(s): Father at age 64 from Black lung disease Mother Family Medical History: Hypertension, Myocardial Infarction ([place]) Additional Family Medical History / Comment(s): Mother of an [place] at 78yrs old. Brother(s) Family Medical History: Myocardial Infarction ([place]) Additional Family Medical History / Comment(s): Patient has 10 brothers and 2 from myocardial infarction and had history of alcoholism. Sister(s) Family Medical History: Hypertension, Myocardial Infarction ([place]) Additional Family Medical History / Comment(s): He has 7 sisters that are alive with no major medical problems. He has one son that has and one daughter that is alive and okay. Medications and Allergies Home Medications Medication Instructions Recorded Confirmed Type Aspirin 81 mg PO DAILY 30 Days 03/19/21 08/14/21 Rx QUEtiapine [SEROquel] 300 mg PO HS 08/14/21 08/14/21 History Venlafaxine HCl [Effexor XR] 150 mg PO DAILY 08/14/21 08/14/21 History Allergies Allergy/AdvReac Type Severity Reaction Status Date / Time blueberry Allergy Rash/Hives Verified 08/14/21 13:55 nitroglycerin Allergy Swelling Verified 08/14/21 13:55 Physical Exam Vitals: Vital Signs Temp Pulse Pulse Resp BP BP BP 08/15/21 07:00 97.7 F 72 18 111/77 08/15/21 01:30 97.4 F L 74 18 92/65 08/14/21 19:23 98.2 F 64 17 115/80 08/14/21 15:52 98.2 F 73 16 131/85 08/14/21 15:33 98.2 F 74 18 129/89 08/14/21 14:30 73 18 146/95 08/14/21 13:48 18 08/14/21 12:25 98.4 F 79 16 114/74 Pulse Ox 08/15/21 07:00 98 08/15/21 01:30 98 08/14/21 19:23 100 08/14/21 15:52 92 L 08/14/21 15:33 95 08/14/21 14:30 95 08/14/21 13:48 08/14/21 12:25 99 Intake and Output 08/14/21 08/15/21 08/15/21 22:59 06:59 14:59 Other: # Voids 1 1 Weight 73.482 kg - Constitutional General appearance: no acute distress - Respiratory Respiratory: bilateral: CTA - Cardiovascular Rhythm: regular Heart sounds: normal: S1, S2 Abnormal Heart Sounds: systolic murmur Results 08/14/21 13:04 08/14/21 13:04 Cardiac Enzymes 08/14/21 08/14/21 08/14/21 Range/Units 13:04 13:04 15:26 AST 49 (17-59) U/L Troponin I 0.015 <0.012 (0.000-0.034) ng/mL 08/14/21 Range/Units 18:12 AST (17-59) U/L Troponin I <0.012 (0.000-0.034) ng/mL Coagulation 08/14/21 Range/Units 13:04 PT 9.7 (9.0-12.0) sec APTT 23.2 (22.0-30.0) sec CBC 08/14/21 Range/Units 13:04 WBC 4.1 (3.8-10.6) k/uL RBC 3.68 L (4.30-5.90) m/uL Hgb 12.4 L (13.0-17.5) gm/dL Hct 37.2 L (39.0-53.0) % Plt Count 121 L (150-450) k/uL Comprehensive Metabolic Panel 08/14/21 Range/Units 13:04 Sodium 138 (137-145) mmol/L Potassium 4.4 (3.5-5.1) mmol/L Chloride 105 (98-107) mmol/L Carbon Dioxide 24 (22-30) mmol/L BUN 9 (9-20) mg/dL Creatinine 0.73 (0.66-1.25) mg/dL Glucose 67 L (74-99) mg/dL Calcium 9.6 (8.4-10.2) mg/dL AST 49 (17-59) U/L ALT 34 (4-49) U/L Alkaline Phosphatase 46 (38-126) U/L Total Protein 8.5 H (6.3-8.2) g/dL Albumin 4.8 (3.5-5.0) g/dL Current Medications Generic Name Dose Route Start Last Admin Trade Name Freq PRN Reason Stop Dose Admin Acetaminophen 650 mg 08/14/21 16:30 Acetaminophen Tab 325 Mg Tab PO Q6HR PRN Mild Pain or Fever > 100.5 Hydrocodone Bitart/Acetaminophen 1 each 08/14/21 16:30 08/14/21 16:42 Hydrocodone/Apap 5-325mg 1 Each Tab PO 1 each Q4HR PRN Administration Moderate Pain Aminophylline 100 mg 08/15/21 08:55 Aminophylline 500 Mg/20 Ml Vial IV 08/15/21 12:56 ONCE PRN Patient Response Artificial Tears 2 drops 08/14/21 17:44 Artificial Tears-Hypromellose Drops 15 Ml Btl BOTH EYES QID PRN Dry Eye(s) Aspirin 325 mg 08/15/21 09:00 08/15/21 09:06 Aspirin 325 Mg Tab PO 325 mg DAILY MORRIS Administration Atorvastatin Calcium 80 mg 08/14/21 17:00 08/15/21 09:05 Atorvastatin 80 Mg Tab PO 80 mg DAILY MORRIS Administration Caffeine Citrate 60 mg 08/15/21 08:55 Caffeine Citrate 60 Mg/3 Ml Vial IV 08/15/21 12:56 ONCE PRN Patient Response Guaifenesin 600 mg 08/14/21 17:44 08/15/21 09:05 Guaifenesin 600 Mg Tablet.Er PO 600 mg Q12HR PRN Administration Congestion Heparin Sodium (Porcine) 5,000 unit 08/15/21 00:00 08/15/21 07:36 Heparin Sodium,Porcine/Pf 5,000 Unit/0.5 Ml Syringe SQ 5,000 unit Q8HR MORRIS Administration Melatonin 3 mg 08/14/21 16:30 Melatonin 3 Mg Tablet PO HS PRN Insomnia Metoprolol Tartrate 12.5 mg 08/14/21 21:00 08/15/21 09:06 Metoprolol Tartrate 12.5 Mg Tab PO 12.5 mg BID MORRIS Administration Morphine Sulfate 4 mg 08/14/21 16:48 Morphine Sulfate 4 Mg/Ml Syringe IVP Q6HR PRN Pain Naloxone HCl 0.2 mg 08/14/21 16:38 Naloxone 0.4 Mg/Ml 1 Ml Vial IVP Q2M PRN Opioid Reversal Nicotine 1 patch 08/15/21 09:00 08/15/21 09:06 Nicotine 14mg/24hr Patch TRANSDERM Not Given DAILY MORRIS Pantoprazole Sodium 40 mg 08/15/21 07:30 08/15/21 07:36 Pantoprazole 40 Mg Tablet PO 40 mg [id number] MORRIS Administration Quetiapine Fumarate 300 mg 08/14/21 21:00 08/14/21 19:19 Quetiapine 100 Mg Tab PO 300 mg HS MORRIS Administration Regadenoson 0.4 mg 08/15/21 08:55 Regadenoson 0.4 Mg/5 Ml Syringe IV 08/15/21 12:56 ONCE PRN Per Protocol Sodium Chloride 10 ml 08/14/21 21:00 08/15/21 09:06 Sodium Chloride 0.9% Flush 10 Ml Syringe IV 10 ml BID MORRIS Administration Venlafaxine HCl 150 mg 08/15/21 09:00 08/15/21 09:05 Venlafaxine Hcl Er 150 Mg Cap PO 150 mg DAILY MORRIS Administration Intake and Output 08/14/21 08/15/21 08/15/21 22:59 06:59 14:59 Other: # Voids 1 1 Weight 73.482 kg 08/14/21 13:04 08/14/21 13:04 Assessment and Plan Assessment: Assessment #1 when episode of chest discomfort which has resolved #2 CAD with prior stenting of the LAD #3 history of smoking #4 history of alcohol use Plan #1 acute coronary syndrome was ruled out #2 pulmonary embolism was ruled out #3 obtain a stress test to assess for any progression in the severity of CAD which was identified in 2019 #4 follow-up with the patient
--- NOTE | 2021-08-15 11:44 | CA ---
Transthoracic Echo Report Name: Lele Scott Age: 60 Gender: M : 1960 Exam Date: 08/15/2021 09:23 Exam Location: [facility] Ht (in): 69 Wt (lb): 162 Ordering Physician: Layo Muller Attending/Referring Phys: Inside Technical Sales Representative Flores Thomas RDCS Procedure CPT: Indications: Evaluate structure and function of heart Cardiac Hx: Technical Quality: Good Contrast 1: Total Dose (mL): Contrast 2: Total Dose (mL): MEASUREMENTS (Male / Female) Normal Values 2D ECHO LV Diastolic Diameter PLAX 3.8 cm 4.2 - 5.9 / 3.9 - 5.3 cm LV Systolic Diameter PLAX 3.8 cm IVS Diastolic Thickness 1.1 cm 0.6 - 1.0 / 0.6 - 0.9 cm LVPW Diastolic Thickness 1.7 cm 0.6 - 1.0 / 0.6 - 0.9 cm LV Relative Wall Thickness 0.7 RV Internal Dim ED PLAX 3.3 cm M-MODE Aortic Root Diameter MM 3.4 cm LA Systolic Diameter MM 3.9 cm LA Ao Ratio MM 1.2 MV E Point Septal Separation 0.8 cm AV Cusp Separation MM 1.8 cm DOPPLER MV Area PHT 2.9 cm??? Mitral E Point Velocity 27.9 cm/s Mitral A Point Velocity 56.7 cm/s Mitral E to A Ratio 0.5 MV Deceleration Time 258.5 ms MV E' Velocity 6.5 cm/s Mitral E to MV E' Ratio 4.3 FINDINGS Left Ventricle Normal left ventricular size, wall thickness, systolic function with no obvious regional wall motion abnormalities. Left ventricular ejection fraction is estimated at 50-55%. Right Ventricle The right ventricle is normal in size and function. Right Atrium The right atrium is normal in size. Left Atrium The left atrium is normal in size. Mitral Valve Structurally normal mitral valve without significant stenosis or prolapse. There is mild to moderate mitral regurgitation. Aortic Valve Structurally normal aortic valve without significant sclerosis or stenosis. There is no aortic regurgitation. Tricuspid Valve Structurally normal tricuspid valve without significant stenosis. Pulmonary artery systolic pressure is normal. Pulmonic Valve Structurally normal pulmonic valve without significant stenosis. There is no pulmonic regurgitation. Pericardium Normal pericardium without effusion. Aorta Normal aortic root dimension. CONCLUSIONS Normal left ventricular dimension and systolic function [id number] mitral regurgitation Previewed by: Dr. Primo Moody MD (Electronically Signed) Final Date: 15 August 2021 11:43
[2021-08-15 12:20] LABS: Triglycerides 35.8 mg/dL (0.00-149.00)
[2021-08-15 12:32] LABS: Chol/HDL Ratio 1.33 Ratio; LDL Cholesterol,Calculated 46.8 mg/dL (0.0-131.0); LDL Cholesterol,Direct Reflex 47.7 mg/dL (0.00-129.00)
--- NOTE | 2021-08-15 13:13 | NM ---
EXAMINATION TYPE: NM stress lexiscan cardiolite DATE OF EXAM: 08/15/2021 COMPARISON: 09/14/2019 HISTORY: Chest pain TECHNIQUE: After the intravenous administration of 10.1 mCi Tc 99m Sestamibi - Cardiolite resting SP ECT images acquired 45 minutes post injection. The patient received 0.4mg Lexiscan, 25.0 mCi Tc 99m Sestamibi - Stress images obtained [address] injection FINDINGS: Review of stress and rest SPECT images demonstrates perfusion abnormality involving the inferior wall which appears to improve following stress imaging and likely reflects diaphragmatic attenuation mayi fact versus remote insult. No definite stress-induced ischemia at this time. Gated analysis shows nor mal wall motion with an estimated left ventricular ejection fraction of 37 %. IMPRESSION: No scintigraphic evidence for reversible ischemia. Diminished ejection fraction of 37%.
[2021-08-15 13:28] VITALS: BP 123/84; PULSE 56; RESP 16; TEMP 98.3
--- NOTE | 2021-08-15 16:57 | P.DS ---
Providers Date of admission: 08/14/21 15:13 Expected date of discharge: 08/15/21 Attending physician: Rose Morocho, Consults: 08/14/21 15:12 Consult Physician Urgent Consulting Provider: Deanne Starr Consult Reason/Comments: cp Do you want consulting provider notified?: Yes Primary care physician: Braeden Barnes Hospital Course: Discharge Diagnosis: Chest pain, acute coronary event ruled out History of coronary artery disease status post previous DE with 4 stents Hyperlipidemia. Patient encouraged heart healthy diet and started on atorvastatin 40 mg daily. Psychiatric illnesses including anxiety, depression, PTSD, bipolar disorder, and schizophrenia. Continue daily medication regimen with Effexor and Seroquel Nicotine dependence, encouraged smoking cessation. Hospital Course: Patient is a very pleasant 60-year-old male with a past medical history of coronary artery disease status post previous DE with 4 stents, hyperlipidemia, COPD with continued nicotine use reportedly smoking approximately 3 or 4 cigarettes daily (cut down from one pack daily that he was smoking one year ago), and anxiety, depression, PTSD, bipolar disorder, and schizophrenia. In addition patient also reports previous history of alcoholism, however states went to rehab 4 years ago and has been sober since. Patient presented to the emergency department with a chief complaint of chest pain. Patient reports that he began feeling his normal self up until this morning. Patient reports he felt a little off and experienced some exertional dyspnea accompanied by nausea, dizziness, palpitations, and a heaviness to his midsternal chest. Patient describes this pain as constant and states it feels as though an elephant is sitting on his chest which is how he states he felt when he had his previous DE. Patient denies experiencing any headache, changes in vision or hearing, diaphoresis, abdominal pain, vomiting, or experiencing any numbness/tingling/weakness/swelling in his extremities. Patient underwent full evaluation in the emergency department. EKG was completed revealing normal sinus rhythm at 69 bpm with no noted T-wave or ST abnormalities. Chest x-ray negative for acute cardiopulmonary process. CBC revealing macrocytic anemia with hemoglobin of 12.4 and MCV of 101.2 along with thrombocytopenia with platelet count of 121. CMP was unremarkable. Covid PCR, influenza A, influenza B all negative. Troponin negative at less 0.015. D-dimer was elevated at 3.22 and CTA was completed which was negative for pulmonary emboli revealing hepatic steatosis and small hiatal hernia. Patient admitted under our services with consultation to cardiology.Patient monitored overnight. Troponins were trended. Echocardiogram was completed revealing normal EF of 50-55% with mild to moderate mitral regurgitation. Cardiology evaluated the patient for Lexiscan Stress test. Stress test negative showing no scintigraphic evidence of reversible ischemia with a diminished EF of 37%. Discussed with tutor, recommending outpatient follow-up in their office.lipid profile was completed revealing elevated cholesterol of 216. Patient started on atorvastatin 40 mg daily. Patient is medically stable for discharge at this time. It was recommended smoking cessation. Patient to follow-up with PCP in 1-2 days and cardiology in 1 week. Physical exam: Vital signs reviewed and stable. General: Nontoxic, no distress and appears stated age. Derm: Skin warm and dry, normal coloration for ethnicity. Head: Atraumatic, normocephalic and symmetric. Eyes: EOMs intact, no lid lag, and anicteric sclera Mouth: no lip lesions, mucus membranes moist Cardiovascular: regular rate and rhythm with normal S1S2, no murmur, positive posterior tibial pulses bilaterally, and cap refill < 2 seconds. Lungs: Respirations even, regular, and unlabored on room air. Lungs CTA bilaterally, no rhonchi, no rales, no wheezing, and no accessory muscle usage. Abdominal: soft, nontender to palpation, no guarding, no appreciable organomegaly Ext: ROM intact. No gross muscle atrophy, no edema, no contractures Neuro: Speech clear, face symmetrical and CN II-XII grossly intact with no noted focal neuro deficits Psych: Alert and oriented to person, place, time, and situation. Appropriate and pleasant affect. A total of 37 minutes of time were spent preparing this complex discharge summary. Pt was discharged on 08/15/21 at 4:51 PM Layo Muller NP rendered care for this patient independently, reviewed the findings and plan as documented in the note above. I did not physically speak with or examine the patient on this date. Reviewed case echocardiogram is likely more accurate with ejection fraction. Patient Condition at Discharge: Stable Plan - Discharge Summary Discharge Rx Participant: No New Discharge Prescriptions: New Atorvastatin [Lipitor] 40 mg PO DAILY 30 Days #30 tablet Continue Venlafaxine HCl [Effexor XR] 150 mg PO DAILY Aspirin 81 mg PO DAILY 30 Days QUEtiapine [SEROquel] 300 mg PO HS Discharge Medication List Aspirin 81 mg PO DAILY 30 Days 03/19/21 [Rx] QUEtiapine [SEROquel] 300 mg PO HS 08/14/21 [History] Venlafaxine HCl [Effexor XR] 150 mg PO DAILY 08/14/21 [History] Atorvastatin [Lipitor] 40 mg PO DAILY 30 Days #30 tablet 08/15/21 [Rx] Follow up Appointment(s)/Referral(s): Molly Deras MD [Primary Care Provider] - 1-2 days Primo Moody MD [STAFF PHYSICIAN] - 1 Week (Office will call with appointment time and date.) Patient Instructions/Handouts: Chest Pain (DC), How to Stop Smoking (DC), Low Fat Diet (DC), Cholesterol and Your Health (GEN), Hyperlipidemia (GEN) Activity/Diet/Wound Care/Special Instructions: Activity: As tolerated. Take breaks as needed. Diet: Heart healthy and carb consistent diet. Avoid salts, or foods with hidden salts such as canned or boxed foods and frozen dinners. Extra salt makes your heart work harder and traps the fluid in your body for longer. Special Instructions: Take all of your medications as directed and remember to keep all of your doctor's appointments and follow-up as needed. Strongly encourage smoking cessation. Thank you for allowing us to participate in your care, it was truly a pleasure having you for our patient!!! Discharge Disposition: HOME SELF-CARE
--- NOTE | 2021-08-16 12:57 | CA ---
Lexiscan Nuclear Stress Test Report Name: Lele Scott Exam Date: 08/15/2021 11:39 Exam Location: [place] Stress Ht (in): 69 Wt (lb): 162 BSA: 1.89 Ordering Phys: Primo Moody MD Referring Phys: clem, Technologist: Dionicio Walters Age: 60 Gender: M : 1960 Procedure CPT: Indications: Reflex order-Stress test ICD-10 Codes: Patient History: Medications: SEE CHART Meds past 24 hrs: Pretest Chest Pain: STRESS TEST Lexiscan Protocol Exercise Duration (min:sec): 02:[address] Depressions (mm): Angina Score: Pascal Score: Resting HR (bpm): 58 Peak HR (bpm): 81 Resting BP (mmHg): 122 / 86 Peak BP (mmHg): 109 / 80 MPHR: 159 Target HR: 135 % MPHR: 51 METS: 1.0 Total Dose: Peak Dose: Atropine: Double Product: 8829 BP Response: Stress Termination: Stress Symptoms: NO SYMPTOMS Stress Summary: ECG ANALYSIS Resting ECG: Stress ECG: CONCLUSIONS Nondiagnostic echocardiogram stress testing was post Lexiscan Please follow-up on the Cardiolite portion Dr. Primo Moody MD (Electronically Signed) Final Date: 16 August 2021 12:56
== END 2021-08-15 17:50 | disposition home or self-care (01) ==
LOC: EC 12:19 → 6NMEDSUR 15:13
PROVIDERS: ADMIT Internal Medicine; ATTEND Internal Medicine
DX: R07.89 Other chest pain (principal); I25.10 Atherosclerotic heart disease of native coronary artery without angina pectoris; I25.2 Old myocardial infarction; Z95.5 Presence of coronary angioplasty implant and graft; E78.5 Hyperlipidemia, unspecified; Z71.3 Dietary counseling and surveillance; F41.9 Anxiety disorder, unspecified; F31.9 Bipolar disorder, unspecified; F43.10 Post-traumatic stress disorder, unspecified; F20.9 Schizophrenia, unspecified; F17.210 Nicotine dependence, cigarettes, uncomplicated; Z71.6 Tobacco abuse counseling; J44.9 Chronic obstructive pulmonary disease, unspecified; R11.0 Nausea; R42 Dizziness and giddiness; R00.2 Palpitations; D53.9 Nutritional anemia, unspecified; D69.6 Thrombocytopenia, unspecified; T82.855A Stenosis of coronary artery stent, initial encounter; J02.9 Acute pharyngitis, unspecified; I10 Essential (primary) hypertension; R79.89 Other specified abnormal findings of blood chemistry; E78.00 Pure hypercholesterolemia, unspecified; I34.0 Nonrheumatic mitral (valve) insufficiency; F10.21 Alcohol dependence, in remission; K76.0 Fatty (change of) liver, not elsewhere classified; K44.9 Diaphragmatic hernia without obstruction or gangrene; M47.9 Spondylosis, unspecified; M17.0 Bilateral primary osteoarthritis of knee; Z20.822 Contact with and (suspected) exposure to COVID-19; Z71.9 Counseling, unspecified; Z90.49 Acquired absence of other specified parts of digestive tract; Z79.82 Long term (current) use of aspirin; Z79.899 Other long term (current) drug therapy; Z88.8 Allergy status to other drugs, medicaments and biological substances; Z91.018 Allergy to other foods; Z82.49 Family history of ischemic heart disease and other diseases of the circulatory system; Z83.6 Family history of other diseases of the respiratory system; Z81.1 Family history of alcohol abuse and dependence
CPT/HCPCS: 96372 ×2; 96374; 99285; 36415; 93005; 93017; 93306; 87651; 85379; 83880; 80061; 80053; 82150; 83690; 83735; 84484; 85025; 85610; 85730; 83721; 87502; 87635; 71046; 71275; 78452; G0378 ×2; A9500; J2270; J2785; Q9967; J1644 ×2

== ENCOUNTER 2021-09-08 08:28 | Emergency (ER) | payer MEDICARE, OTHER ==
[2021-09-08 08:32] VITALS: RESP 18
[2021-09-08] MEDS ORDERED: SODIUM CHLORIDE 0.9% 1,000 ML IV ONE (08:39)
[2021-09-08] MEDS ORDERED: ONDANSETRON 4 MG/2 ML VIAL IVP STA (08:39)
[2021-09-08] MEDS ORDERED: KETOROLAC 15 MG/ML 1 ML VIAL IVP STA (08:39)
[2021-09-08] MEDS ORDERED: SODIUM CHLORIDE 0.9% 500 ML 500 ML IV ONE (08:39)
--- NOTE | 2021-09-08 08:44 | ED ---
General Adult HPI - General Chief complaint: ENT Stated complaint: dysphagia/muscle pain Time Seen by Provider: 09/08/21 08:30 Source: patient, RN notes reviewed Mode of arrival: ambulatory Limitations: no limitations - History of Present Illness Initial comments: This a 61-year-old male presents emergency Department with multiple complaints. Patient states he's had one week worth of sore throat. Patient states that he's had increasing nasal congestion, phlegm, body aches. Patient states that he a recent last 2-3 days she's had vomiting, feels dehydrated. Patient states his urine is very dark. Patient denies any localized abdominal pain states is uncomfortable. Patient states hurts when he coughs complaint of rib pain. Patient denies any sick contacts and no medications. Denies any significant diarrhea no melena hematochezia or hematemesis or coffee-ground emesis. Patient denies any prior throat surgery. Denies reported fever. - Related Data Home Medications Medication Instructions Recorded Confirmed QUEtiapine [SEROquel] 300 mg PO HS 08/14/21 08/14/21 Venlafaxine HCl [Effexor XR] 150 mg PO DAILY 08/14/21 08/14/21 Previous Rx's Medication Instructions Recorded Aspirin 81 mg PO DAILY 30 Days 03/19/21 Atorvastatin [Lipitor] 40 mg PO DAILY 30 Days #30 tablet 08/15/21 Amoxic-Pot Clav 875-125Mg 1 tab PO Q12HR #20 tab 09/08/21 [Augmentin 875-125] Allergies Allergy/AdvReac Type Severity Reaction Status Date / Time blueberry Allergy Rash/Hives Verified 09/08/21 08:32 nitroglycerin Allergy Swelling Verified 09/08/21 08:32 Review of Systems ROS Statement: Those systems with pertinent positive or pertinent negative responses have been documented in the HPI. ROS Other: All systems not noted in ROS Statement are negative. Past Medical History Past Medical History: Coronary Artery Disease (CAD), Chest Pain / Angina, Hyperlipidemia, Myocardial Infarction (SC), Osteoarthritis (OA) Additional Past Medical History / Comment(s): arthritis in back and bilateral knees,hx hiatal hernia Last Myocardial Infarction Date:: 2004 History of Any Multi-Drug Resistant Organisms: None Reported Past Surgical History: Bowel Resection, Heart Catheterization With Stent Additional Past Surgical History / Comment(s): Cardiac stents x 3, bowel surgery for pinpoint hole in bowel, L knee arthroscopy, colonoscopy/benign polypectomies,hiatal hernia repair Past Anesthesia/Blood Transfusion Reactions: No Reported Reaction Date of Last Stent Placement:: 2013 Past Psychological History: Bipolar, Depression, PTSD, Schizophrenia Smoking Status: Current every day smoker Past Alcohol Use History: Occasional Past Drug Use History: None Reported - Past Family History Father Family Medical History: Respiratory Disorder Additional Family Medical History / Comment(s): Father at age 64 from Black lung disease Mother Family Medical History: Hypertension, Myocardial Infarction (SC) Additional Family Medical History / Comment(s): Mother of an SC at 78yrs old. Brother(s) Family Medical History: Myocardial Infarction (SC) Additional Family Medical History / Comment(s): Patient has 10 brothers and 2 from myocardial infarction and had history of alcoholism. Sister(s) Family Medical History: Hypertension, Myocardial Infarction (SC) Additional Family Medical History / Comment(s): He has 7 sisters that are alive with no major medical problems. He has one son that has and one daughter that is alive and okay. General Exam Limitations: no limitations General appearance: alert, in no apparent distress Head exam: Present: atraumatic, normocephalic, normal inspection Eye exam: Present: normal appearance, PERRL, EOMI. Absent: scleral icterus, conjunctival injection, periorbital swelling ENT exam: Present: normal exam, normal oropharynx, mucous membranes moist Neck exam: Present: normal inspection, full ROM. Absent: tenderness, meningismus, lymphadenopathy Respiratory exam: Present: normal lung sounds bilaterally. Absent: respiratory distress, wheezes, rales, rhonchi, stridor Cardiovascular Exam: Present: regular rate, normal rhythm, normal heart sounds. Absent: systolic murmur, diastolic murmur, rubs, gallop, clicks GI/Abdominal exam: Present: soft, normal bowel sounds. Absent: distended, tenderness, guarding, rebound, rigid Neurological exam: Present: alert, oriented X3 Skin exam: Present: warm, dry, intact, normal color. Absent: rash Course Vital Signs 09/08/21 09/08/21 08:30 10:21 Temperature 98.3 F Pulse Rate 77 75 Respiratory 18 18 Rate Blood Pressure 134/94 113/85 O2 Sat by Pulse 99 100 Oximetry EKG Findings - EKG Comments: EKG Findings:: EKG performed and a: 39 sinus rhythm with rate of 75 ME 143 QRS 83 QTC is QTC 387/4:15 there is no acute changes from prior EKG. Medical Decision Making - Medical Decision Making 61-year-old presented for upper respiratory symptoms patient did have some mild transaminitis ultrasound was performed shows no acute abnormality. Patient states she does drink beer and regular basis. Patient has negative strep, negative heterophile patient we given him in for acute pharyngitis patient discharged in stable condition return parameters. - Lab Data Result diagrams: 09/08/21 08:48 09/08/21 08:48 Lab Results 09/08/21 09/08/21 09/08/21 Range/Units 08:48 08:48 08:48 WBC 3.3 L (3.8-10.6) k/uL RBC 4.14 L (4.30-5.90) m/uL Hgb 13.6 (13.0-17.5) gm/dL Hct 41.0 (39.0-53.0) % MCV 99.0 (80.0-100.0) fL MCH 32.9 (25.0-35.0) pg MCHC 33.2 (31.0-37.0) g/dL RDW 14.4 (11.5-15.5) % Plt Count 121 L (150-450) k/uL MPV 9.5 Neutrophils % (Manual) 58 % Lymphocytes % (Manual) 33 % Monocytes % (Manual) 9 % Neutrophils # (Manual) 1.91 (1.3-7.7) k/uL Lymphocytes # (Manual) 1.09 (1.0-4.8) k/uL Monocytes # (Manual) 0.30 (0-1.0) k/uL Nucleated RBCs 0 (0-0) /100 WBC Manual Slide Review Performed RBC Morphology Normal Sodium 136 L (137-145) mmol/L Potassium 4.5 (3.5-5.1) mmol/L Chloride 101 (98-107) mmol/L Carbon Dioxide 29 (22-30) mmol/L Anion Gap 6 mmol/L BUN 10 (9-20) mg/dL Creatinine 0.76 (0.66-1.25) mg/dL Est GFR (CKD-EPI)AfAm >90 (>60 ml/min/1.73 sqM) Est GFR (CKD-EPI)NonAf >90 (>60 ml/min/1.73 sqM) Glucose 81 (74-99) mg/dL Calcium 10.1 (8.4-10.2) mg/dL Magnesium 1.8 (1.6-2.3) mg/dL Total Bilirubin 1.4 H (0.2-1.3) mg/dL AST 334 H (17-59) U/L ALT 100 H (4-49) U/L Alkaline Phosphatase 57 (38-126) U/L Total Protein 9.0 H (6.3-8.2) g/dL Albumin 5.1 H (3.5-5.0) g/dL Urine Color Urine Appearance (Clear) Urine pH (5.0-8.0) Ur Specific [place] (1.001-1.035) Urine Protein (Negative) Urine Glucose (UA) (Negative) Urine Ketones (Negative) Urine Blood (Negative) Urine Nitrite (Negative) Urine Bilirubin (Negative) Urine Urobilinogen (<2.0) mg/dL Ur Leukocyte Esterase (Negative) Urine RBC (0-5) /hpf Urine WBC (0-5) /hpf Ur Squamous Epith Cells (0-4) /hpf Urine Bacteria (None) /hpf Urine Mucus (None) /hpf Coronavirus (PCR) (Not Detectd) Heterophile Antibody Negative (Negative) Group A Strep Rapid (Negative) 09/08/21 09/08/21 09/08/21 Range/Units 08:48 08:48 08:48 WBC (3.8-10.6) k/uL RBC (4.30-5.90) m/uL Hgb (13.0-17.5) gm/dL Hct (39.0-53.0) % MCV (80.0-100.0) fL MCH (25.0-35.0) pg MCHC (31.0-37.0) g/dL RDW (11.5-15.5) % Plt Count (150-450) k/uL MPV Neutrophils % (Manual) % Lymphocytes % (Manual) % Monocytes % (Manual) % Neutrophils # (Manual) (1.3-7.7) k/uL Lymphocytes # (Manual) (1.0-4.8) k/uL Monocytes # (Manual) (0-1.0) k/uL Nucleated RBCs (0-0) /100 WBC Manual Slide Review RBC Morphology Sodium (137-145) mmol/L Potassium (3.5-5.1) mmol/L Chloride (98-107) mmol/L Carbon Dioxide (22-30) mmol/L Anion Gap mmol/L BUN (9-20) mg/dL Creatinine (0.66-1.25) mg/dL Est GFR (CKD-EPI)AfAm (>60 ml/min/1.73 sqM) Est GFR (CKD-EPI)NonAf (>60 ml/min/1.73 sqM) Glucose (74-99) mg/dL Calcium (8.4-10.2) mg/dL Magnesium (1.6-2.3) mg/dL Total Bilirubin (0.2-1.3) mg/dL AST (17-59) U/L ALT (4-49) U/L Alkaline Phosphatase (38-126) U/L Total Protein (6.3-8.2) g/dL Albumin (3.5-5.0) g/dL Urine Color Yellow Urine Appearance Clear (Clear) Urine pH 5.5 (5.0-8.0) Ur Specific [place] 1.023 (1.001-1.035) Urine Protein 1+ H (Negative) Urine Glucose (UA) Negative (Negative) Urine Ketones 2+ H (Negative) Urine Blood Small H (Negative) Urine Nitrite Negative (Negative) Urine Bilirubin 1+ H (Negative) Urine Urobilinogen 2.0 (<2.0) mg/dL Ur Leukocyte Esterase Small H (Negative) Urine RBC 1 (0-5) /hpf Urine WBC 8 H (0-5) /hpf Ur Squamous Epith Cells 2 (0-4) /hpf Urine Bacteria Rare H (None) /hpf Urine Mucus Moderate H (None) /hpf Coronavirus (PCR) Not Detected (Not Detectd) Heterophile Antibody (Negative) Group A Strep Rapid Negative (Negative) Disposition Clinical Impression: Alcohol use disorder, Acute pharyngitis, Transaminitis Disposition: HOME SELF-CARE Condition: Stable Instructions (If sedation given, give patient instructions): Pharyngitis (ED) Additional Instructions: Please return to the Emergency Department if symptoms worsen or any other concerns. Prescriptions: Amoxic-Pot Clav 875-125Mg [Augmentin 875-125] 1 tab PO Q12HR #20 tab Is patient prescribed a controlled substance at d/c from ED?: No Referrals: Molly Deras MD [Primary Care Provider] - 1-2 days Time of Disposition: 10:43
[2021-09-08 09:09] LABS: ALT 100 U/L (4-49); AST 334 U/L (17-59); African American GFR (CKD) >90 (>60 ml/min/1.73 sqM); Albumin 5.1 g/dL (3.5-5.0); Alkaline Phosphatase 57 U/L (38-126); Anion Gap 6 mmol/L; Blood Urea Nitrogen 10 mg/dL (9-20); Calcium 10.1 mg/dL (8.4-10.2); Carbon Dioxide 29 mmol/L (22-30); Chloride 101 mmol/L (98-107); Glucose 81 mg/dL (74-99); Magnesium 1.8 mg/dL (1.6-2.3); Non-African American GFR(CKD) >90 (>60 ml/min/1.73 sqM); Potassium 4.5 mmol/L (3.5-5.1); Sodium 136 mmol/L (137-145); Total Bilirubin 1.4 mg/dL (0.2-1.3)
[2021-09-08 09:11] LABS: Appearance,Urine Clear (Clear); Bacteria,Urine Rare /hpf; Bilirubin,Urine 1+ (Negative); Blood,Urine Small (Negative); Color,Urine Yellow; Glucose,Urine (UA) Negative (Negative); Ketones,Urine 2+ (Negative); Leukocyte Esterase,Urine Small (Negative); Mucus,Urine Moderate /hpf; Nitrite,Urine Negative (Negative); PH, Urine 5.5 (5.0-8.0); Protein,Urine 1+ (Negative); RBC,Urine 1 /hpf (0-5); Specific Gravity,Urine 1.023 (1.001-1.035); Squamous Epithelial Cell,Urine 2 /hpf (0-4); WBC,Urine 8 /hpf (0-5)
--- NOTE | 2021-09-08 09:13 | XR ---
EXAMINATION TYPE: XR chest 2V DATE OF EXAM: 09/08/2021 COMPARISON: 08/14/2021 INDICATION: Cough TECHNIQUE: Frontal and lateral views of the chest are obtained. FINDINGS: The heart size is normal. The pulmonary vasculature is normal. The lungs are clear. IMPRESSION: 1. No acute pulmonary process.
[2021-09-08 09:25] LABS: HGB 13.6 gm/dL (13.0-17.5); MCH 32.9 pg (25.0-35.0); MCHC 33.2 g/dL (31.0-37.0); Mean Platelet Volume 9.5; Platelet Count 121 k/uL (150-450); RBC 4.14 m/uL (4.30-5.90); RDW 14.4 % (11.5-15.5); WBC 3.3 k/uL (3.8-10.6)
[2021-09-08 10:04] LABS: Lymphocytes # (M) 1.09 k/uL (1.0-4.8); Neutrophils # (M) 1.91 k/uL (1.3-7.7); Neutrophils % (M) 58 %; Nucleated Red Blood Cells 0 /100 WBC (0-0); RBC Morphology Normal; Total Cells Counted 100
--- NOTE | 2021-09-08 10:29 | US ---
EXAMINATION TYPE: US gallbladder DATE OF EXAM: 09/08/2021 COMPARISON: NONE CLINICAL HISTORY: pain. TECHNIQUE: Multiple sonographic images of the right upper quadrant are obtained. 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 No acute changes ultrasound abdomen. 2. There may be a grouping of cysts within the right lobe liver. This can be monitored with ultrasoun d.
[2021-09-08 11:09] VITALS: BP 127/91; PULSE 76; TEMP 98.7
== END 2021-09-08 11:09 | disposition home or self-care (01) ==
LOC: EC 08:28
DX: J02.9 Acute pharyngitis, unspecified (principal); R74.01 Elevation of levels of liver transaminase levels; F10.99 Alcohol use, unspecified with unspecified alcohol-induced disorder; Y90.9 Presence of alcohol in blood, level not specified; I25.10 Atherosclerotic heart disease of native coronary artery without angina pectoris; E78.5 Hyperlipidemia, unspecified; I21.9 Acute myocardial infarction, unspecified; M19.90 Unspecified osteoarthritis, unspecified site; F41.9 Anxiety disorder, unspecified; F17.200 Nicotine dependence, unspecified, uncomplicated; Z91.018 Allergy to other foods; Z88.8 Allergy status to other drugs, medicaments and biological substances; Z79.82 Long term (current) use of aspirin; Z79.899 Other long term (current) drug therapy; Z20.822 Contact with and (suspected) exposure to COVID-19
CPT/HCPCS: 36415; 93005; 80053; 83735; 85025; 86308; 81001; 87081; 87430; 87635; 71046; 76705; 99284; 96374; 96375; 96361; J2405; J1885

== ENCOUNTER 2021-10-02 14:17 | Observation (INO) | payer MEDICARE, OTHER ==
[2021-10-02] MEDS ORDERED: SODIUM CHLORIDE 0.9% 1,000 ML IV STA (15:13)
[2021-10-02] MEDS ORDERED: LORazepam 1 MG TAB PO STA (15:32)
--- NOTE | 2021-10-02 15:46 | ED ---
General Adult HPI - General Chief complaint: Psychiatric Symptoms Stated complaint: suicidal thoughts, drank alcohol Time Seen by Provider: 10/02/21 15:10 Source: patient, RN notes reviewed, old records reviewed Mode of arrival: ambulatory Limitations: no limitations - History of Present Illness Initial comments: Patient is a 61-year-old male with past medical history remarkable for CAD, angina, psychiatric illness who presents emergency Department complaining of suicidal ideations and alcohol intoxication. States he doesn't drink alcohol every day. Denies any history of withdrawals. Admits to drinking to 3 beers today. He endorses suicidal ideations but denies plan or attempt. States he has had suicidal ideations previously as well. Denies any homicidal ideations, attempts. Patient to me denies any visual or auditory hallucinations. Patient appears obviously intoxicated with alcohol, and he does endorse that he was drinking. Denies any other drug use. Presents for further evaluation at this time. Does have history cardiac stents. Denies any chest pain, shortness of breath, abdominal pain, nausea, vomiting. States that the source of his current suicidal ideations is some depression surrounding the fact that his mother and his son recently both . - Related Data Home Medications Medication Instructions Recorded Confirmed HYDROcodone/APAP 10-325MG [[place] 1 tab PO QID PRN 10/02/21 10/02/21 10-325] QUEtiapine [SEROquel] 200 mg PO DAILY 10/02/21 10/02/21 QUEtiapine [SEROquel] 400 mg PO HS 10/02/21 10/02/21 Venlafaxine HCl [Effexor] 75 mg PO BID-W/MEALS 10/02/21 10/02/21 Previous Rx's Medication Instructions Recorded Aspirin 81 mg PO DAILY 30 Days 03/19/21 Atorvastatin [Lipitor] 40 mg PO DAILY 30 Days #30 tablet 08/15/21 Allergies Allergy/AdvReac Type Severity Reaction Status Date / Time blueberry Allergy Rash/Hives Verified 10/02/21 16:08 nitroglycerin Allergy Swelling Verified 10/02/21 16:08 Review of Systems ROS Statement: Those systems with pertinent positive or pertinent negative responses have been documented in the HPI. Review of Systems: CONST: Denies fever EYES: Denies blurry vision ENT: Denies nasal congestion C/V: Denies Chest pain RESP: Denies shortness of breath GI: Denies abdominal pain : Denies dysuria SKIN: Denies rash. MSK: Denies joint pain. NEURO: Denies headache PSYCH: Denies homicidal ideations/plans/attempts. Denies visual or auditory hallucinations. He endorses suicidal ideations. Denies plans or attempts. ROS Other: All systems not noted in ROS Statement are negative. Past Medical History Past Medical History: Coronary Artery Disease (CAD), Chest Pain / Angina, Hyperlipidemia, Myocardial Infarction ([place]), Osteoarthritis (OA) Additional Past Medical History / Comment(s): arthritis in back and bilateral knees,hx hiatal hernia Last Myocardial Infarction Date:: 2004 History of Any Multi-Drug Resistant Organisms: None Reported Past Surgical History: Bowel Resection, Heart Catheterization With Stent Additional Past Surgical History / Comment(s): Cardiac stents x 3, bowel surgery for pinpoint hole in bowel, L knee arthroscopy, colonoscopy/benign polypectomies,hiatal hernia repair Past Anesthesia/Blood Transfusion Reactions: No Reported Reaction Date of Last Stent Placement:: 2013 Past Psychological History: Bipolar, Depression, PTSD, Schizophrenia Smoking Status: Current every day smoker Past Alcohol Use History: Occasional Past Drug Use History: None Reported - Past Family History Father Family Medical History: Respiratory Disorder Additional Family Medical History / Comment(s): Father at age 64 from Black lung disease Mother Family Medical History: Hypertension, Myocardial Infarction ([place]) Additional Family Medical History / Comment(s): Mother of an PA at 78yrs old. Brother(s) Family Medical History: Myocardial Infarction ([place]) Additional Family Medical History / Comment(s): Patient has 10 brothers and 2 from myocardial infarction and had history of alcoholism. Sister(s) Family Medical History: Hypertension, Myocardial Infarction ([place]) Additional Family Medical History / Comment(s): He has 7 sisters that are alive with no major medical problems. He has one son that has and one daughter that is alive and okay. General Exam - General Exam Comments Initial Comments: General: Appears obviously intoxicated with alcohol. Smells of alcohol. HEAD: Normal with no signs of head trauma. EYES: PERRLA, EOMI, conjunctiva normal, no discharge. Pupils 3 mm and equal bilaterally. ENT: Hearing grossly intact, normal oropharynx. RESPIRATORY: Clear breath sounds bilaterally. No wheezes, rales, or rhonchi. C/V: Regular rate and rhythm. S1 and S2 auscultated, no edema, peripheral pulses 2+ and intact throughout ABD: Abd is soft, nontender, nondistended EXT: Normal range of motion, no obvious deformity SKIN: No rashes or lesions observed on exposed skin. NEURO: Alert and oriented 4. No focal deficits. No tremors. No tongue fasciculations. Limitations: no limitations Course Vital Signs 10/02/21 14:28 Temperature 97.9 F Pulse Rate 93 Respiratory 22 Rate Blood Pressure 102/66 O2 Sat by Pulse 97 Oximetry Medical Decision Making - Medical Decision Making Patient is a 61-year-old male who presents for psychiatric evaluation due to concern for suicidal ideation secondary to recent of 2 family members.Patient is obviously intoxicated with alcohol. We'll obtain basic labs as well as a screening EKG. He does not appear to be in alcohol withdrawals and denies any history of them. He will be given IV fluids. Also be given a small dose of Ativan. He was placed in green scrubs. Suicidal precautions were or dered. Sitter was ordered. Patient was in agreement with this plan. Vital signs are within normal limits. Patient's laboratory studies returned remarkable for a anion gap metabolic acidosis likely secondary to his acute alcohol intoxication with alcohol level of 251. UDS also positive for cocaine. Patient has a chronic normocytic anemia which is seems at his baseline of 11.6. EKG shows no signs of acute ischemia. Vital Signs remained within normal limits. Vital signs remained within normal limits. I discussed with the patient due to his alcohol intoxication, we will be admitting him for evaluation by psychiatry pending sobriety. He was in agreement this plan. I spoke with the admitting MLP Isa, who accepted the admission to [facility]. Patient was placed on CIWA. We will continue sitter and suicide precautions. Psychiatry was consulted. - Lab Data Result diagrams: 10/02/21 15:42 10/02/21 15:42 Lab Results 10/02/21 10/02/21 10/02/21 Range/Units 15:42 15:42 15:42 WBC 4.5 (3.8-10.6) k/uL RBC 3.55 L (4.30-5.90) m/uL Hgb 11.6 L (13.0-17.5) gm/dL Hct 35.1 L (39.0-53.0) % MCV 98.7 (80.0-100.0) fL MCH 32.6 (25.0-35.0) pg MCHC 33.0 (31.0-37.0) g/dL RDW 14.4 (11.5-15.5) % Plt Count 186 D (150-450) k/uL MPV 8.6 Neutrophils % (Manual) 43 % Band Neuts % (Manual) 1 % Lymphocytes % (Manual) 47 % Monocytes % (Manual) 9 % Neutrophils # (Manual) 1.90 (1.3-7.7) k/uL Lymphocytes # (Manual) 2.12 (1.0-4.8) k/uL Monocytes # (Manual) 0.41 (0-1.0) k/uL Nucleated RBCs 0 (0-0) /100 WBC Polychromasia Present Sodium 141 (137-145) mmol/L Potassium 4.2 (3.5-5.1) mmol/L Chloride 102 (98-107) mmol/L Carbon Dioxide 21 L (22-30) mmol/L Anion Gap 18 mmol/L BUN 8 L (9-20) mg/dL Creatinine 0.66 (0.66-1.25) mg/dL Est GFR (CKD-EPI)AfAm >90 (>60 ml/min/1.73 sqM) Est GFR (CKD-EPI)NonAf >90 (>60 ml/min/1.73 sqM) Glucose 81 (74-99) mg/dL Calcium 9.9 (8.4-10.2) mg/dL Urine Opiates Screen Not Detected (NotDetected) Ur Oxycodone Screen Not Detected (NotDetected) Urine Methadone Screen Not Detected (NotDetected) Ur Propoxyphene Screen Not Detected (NotDetected) Ur Barbiturates Screen Not Detected (NotDetected) U Tricyclic Antidepress Not Detected (NotDetected) Ur Phencyclidine Scrn Not Detected (NotDetected) Ur Amphetamines Screen Not Detected (NotDetected) U Methamphetamines Scrn Not Detected (NotDetected) U Benzodiazepines Scrn Not Detected (NotDetected) Urine Cocaine Screen Detected H (NotDetected) U Marijuana (THC) Screen Not Detected (NotDetected) Serum Alcohol 251 H* mg/dL - EKG Data -: EKG Interpreted by Me EKG Comments: 12-lead Electrocardiogram Interpretation Note EKG was reviewed and interpreted by myself. 12-lead ECG performed at 1604 is interpreted by me as revealing normal sinus rhythm at a rate of 81 beats per minute. Left axis deviation. OH interval is 164 ms, QRS duration is 92 ms, QTc is 445 ms.. There were no ST or T wave abnormalities to suggest myocardial ischemia or injury. R wave progression across the precordium was satisfactory. By my interpretation this EKG is non-diagnostic for acute ischemia. Disposition Clinical Impression: Alcohol intoxication, Suicide ideation, Encounter for psychiatric assessment Disposition: ADMITTED IP TO THIS HOSP Condition: Stable Referrals: Nonstaff,Physician [Primary Care Provider] - 1-2 days Time of Disposition: 16:50
[2021-10-02 16:12] LABS: African American GFR (CKD) >90 (>60 ml/min/1.73 sqM); Anion Gap 18 mmol/L; Blood Urea Nitrogen 8 mg/dL (9-20); Calcium 9.9 mg/dL (8.4-10.2); Carbon Dioxide 21 mmol/L (22-30); Chloride 102 mmol/L (98-107); Glucose 81 mg/dL (74-99); Non-African American GFR(CKD) >90 (>60 ml/min/1.73 sqM); Potassium 4.2 mmol/L (3.5-5.1); Sodium 141 mmol/L (137-145)
[2021-10-02 16:14] LABS: HCT 35.1 % (39.0-53.0); HGB 11.6 gm/dL (13.0-17.5); MCH 32.6 pg (25.0-35.0); MCV 98.7 fL (80.0-100.0); Mean Platelet Volume 8.6; RBC 3.55 m/uL (4.30-5.90); RDW 14.4 % (11.5-15.5); WBC 4.5 k/uL (3.8-10.6)
[2021-10-02 16:30] LABS: Amphetamine Screen,Urine Not Detected (NotDetected); Barbiturate Screen,Urine Not Detected (NotDetected); Benzodiazepines Screen,Urine Not Detected (NotDetected); Cocaine Screen,Urine Detected (NotDetected); Methadone Screen, Urine Not Detected (NotDetected); Opiate Screen,Urine Not Detected (NotDetected); Oxycodone Screen, Urine Not Detected (NotDetected); Phencyclidine Screen,Urine Not Detected (NotDetected); Tricyclic Antidepressant,Urine Not Detected (NotDetected); Urn Cannabinoid Scrn Not Detected (NotDetected)
[2021-10-02 16:41] LABS: Alcohol 251 mg/dL
[2021-10-02 16:47] LABS: Band Neutrophils % 1 %; Lymphocytes # (M) 2.12 k/uL (1.0-4.8); Monocytes # (M) 0.41 k/uL (0-1.0); Neutrophils % (M) 43 %; Nucleated Red Blood Cells 0 /100 WBC (0-0); Polychromasia Present; Total Cells Counted 100
[2021-10-02] MEDS ORDERED: LORazepam 2 MG/ML INJ IV PRN ×3 (17:07)
[2021-10-02] MEDS ORDERED: THIAMINE 100 MG/ML 2 ML VIAL IM STA (17:07)
[2021-10-02] MEDS ORDERED: NALOXONE 0.4 MG/ML 1 ML VIAL IV PRN (17:08)
[2021-10-02] MEDS ORDERED: ONDANSETRON 4 MG/2 ML VIAL IVP PRN (17:08)
[2021-10-02] MEDS ORDERED: HYDROcodone/APAP 10-325MG 1 EACH TAB PO PRN (17:11)
[2021-10-02] MEDS: VENLAFAXINE HCL 75 MG TAB PO SCH (18:17)
[2021-10-02 20:31] LABS: Platelet Count 186 k/uL (150-450)
[2021-10-02 21:38] VITALS: RESP 18
[2021-10-02] MEDS: QUEtiapine 400 MG TAB PO SCH (23:54)
[2021-10-03] MEDS: HEPARIN SODIUM,PORCINE/PF 5,000 UNIT/0.5 ML SYRINGE SQ SCH ×3 (01:12→16:56)
--- NOTE | 2021-10-03 07:42 | P.HPIM ---
History of Present Illness This is a pleasant 61 years old -Niuean male with past medical history of coronary artery disease status post stent, hyperlipidemia and osteoarthritis, bipolar, PTSD and schizophrenia. Patient states he came to the hospital because he was suicidal, and hearing voices in his brain token to hurt him. Patient is his limiting and/or reason he brought him to the hospital is been suicidal, he denies any specific physical complaint to me. He denies chest pain or dyspnea or coughing. No diarrhea or vomiting or abdominal pain. No dysuria or urgency. No headache or dizziness or weakness or numbness. Vitas looks stable and patient is afebrile. Labs reviewed, CBC showing only mild anemia with hemoglobin 11.6. Sodium potassium and creatinine are all normal Urine drug screen is positive for cocaine Symmetrical level is elevated to 251 substance abuse with cocaine EKG showing normal sinus rhythm at [address]-T changes In the emergency room and received normal saline, Ativan and thiamine Review of Systems Review of systems CONSTITUTIONAL: No fever, no malaise, no fatigue. HEENT: No recent visual problems or hearing problems. Denied any sore throat. CARDIOVASCULAR: No orthopnea, PND, no palpitations, no syncope. PULMONARY: No shortness of breath, no cough, no hemoptysis. GASTROINTESTINAL: No diarrhea, no nausea, no vomiting, no abdominal pain. Normoactive bowel sounds. NEUROLOGICAL: No headaches, no weakness, no numbness. HEMATOLOGICAL: Denies any bleeding or petechiae. GENITOURINARY: Denies any burning micturition, frequency, or urgency. MUSCULOSKELETAL/RHEUMATOLOGICAL: Denies any joint pain, swelling, or any muscle pain. ENDOCRINE: Denies any polyuria or polydipsia. Past Medical History Past Medical History: Coronary Artery Disease (CAD), Chest Pain / Angina, Hyperlipidemia, Myocardial Infarction ([place]), Osteoarthritis (OA) Additional Past Medical History / Comment(s): arthritis in back and bilateral knees,hx hiatal hernia Last Myocardial Infarction Date:: 2004 History of Any Multi-Drug Resistant Organisms: None Reported Past Surgical History: Bowel Resection, Heart Catheterization With Stent Additional Past Surgical History / Comment(s): Cardiac stents x 3, bowel surgery for pinpoint hole in bowel, L knee arthroscopy, colonoscopy/benign polypectomies ,hiatal hernia repair Past Anesthesia/Blood Transfusion Reactions: No Reported Reaction Date of Last Stent Placement:: 2014 Past Psychological History: Bipolar, Depression, PTSD, Schizophrenia Smoking Status: Current every day smoker Past Alcohol Use History: Occasional Past Drug Use History: None Reported - Past Family History Father Family Medical History: Respiratory Disorder Additional Family Medical History / Comment(s): Father at age 64 from Black lung disease Mother Family Medical History: Hypertension, Myocardial Infarction ([place]) Additional Family Medical History / Comment(s): Mother of an MA at 78yrs old. Brother(s) Family Medical History: Myocardial Infarction ([place]) Additional Family Medical History / Comment(s): Patient has 10 brothers and 2 from myocardial infarction and had history of alcoholism. Sister(s) Family Medical History: Hypertension, Myocardial Infarction ([place]) Additional Family Medical History / Comment(s): He has 7 sisters that are alive with no major medical problems. He has one son that has and one daughter that is alive and okay. Medications and Allergies Home Medications Medication Instructions Recorded Confirmed Type Aspirin 81 mg PO DAILY 30 Days 03/19/21 10/02/21 Rx Atorvastatin [Lipitor] 40 mg PO DAILY 30 Days #30 tablet 08/15/21 10/02/21 Rx HYDROcodone/APAP 10-325MG [[place] 1 tab PO QID PRN 10/02/21 10/02/21 History 10-325] QUEtiapine [SEROquel] 200 mg PO DAILY 10/02/21 10/02/21 History QUEtiapine [SEROquel] 400 mg PO HS 10/02/21 10/02/21 History Venlafaxine HCl [Effexor] 75 mg PO BID-W/MEALS 10/02/21 10/02/21 History Allergies Allergy/AdvReac Type Severity Reaction Status Date / Time blueberry Allergy Rash/Hives Verified 10/02/21 16:08 nitroglycerin Allergy Swelling Verified 10/02/21 16:08 Physical Exam Vitals: Vital Signs Temp Pulse Pulse Resp BP BP Pulse Ox 10/03/21 02:00 80 18 120/68 98 10/02/21 22:29 86 18 122/79 97 10/02/21 20:00 98.0 F 83 18 120/78 95 10/02/21 18:21 84 16 116/76 98 10/02/21 14:28 97.9 F 93 22 102/66 97 Intake and Output 10/02/21 10/02/21 10/03/21 14:59 22:59 06:59 Intake Total 340 Output Total 750 Balance -410 Intake: Oral 340 Output: Urine 750 Other: Weight 54.431 kg GENERAL: The patient is alert and oriented x3, not in any acute distress. Well developed, well nourished. HEENT: Pupils are round and equally reacting to light. EOMI. No scleral icterus. No conjunctival pallor. Normocephalic, atraumatic. No pharyngeal erythema. No thyromegaly. CARDIOVASCULAR: S1 and S2 present. No murmurs, rubs, or gallops. PULMONARY: Chest is clear to auscultation, no wheezing or crackles. ABDOMEN: Soft, nontender, nondistended, normoactive bowel sounds. No palpable organomegaly. MUSCULOSKELETAL: No joint swelling or deformity. EXTREMITIES: No cyanosis, clubbing, or pedal edema. NEUROLOGICAL: Gross neurological examination did not reveal any focal deficits. SKIN: No rashes. no petechiae. Results CBC & Chem 7: 10/02/21 15:42 10/02/21 15:42 Labs: Abnormal Lab Results - Last 24 Hours (Table) 10/02/21 10/02/21 10/02/21 Range/Units 15:42 15:42 15:42 RBC 3.55 L (4.30-5.90) m/uL Hgb 11.6 L (13.0-17.5) gm/dL Hct 35.1 L (39.0-53.0) % Carbon Dioxide 21 L (22-30) mmol/L BUN 8 L (9-20) mg/dL Urine Cocaine Screen Detected H (NotDetected) Serum Alcohol 251 H* mg/dL Assessment and Plan Assessment: Bipolar, depression with suicidal ideation. Other psych history of PTSD and schizophrenia (has auditory hallucination) Alcohol abuse at-risk of alcohol withdrawal History of coronary artery disease status post stentAmount of active issue Hyperlipidemia Mild to moderate calorie protein malnutrition Plan: This is a pleasant 61 years old male who presents with alcohol abuse and suicidal ideation related to his depression continue with CIWA protocol. And thiamine Psychiatric consult Patient cannot leave AMA, if he tries to leave that he needs to be petitioned Keep sitter at bedside Nutrition consult Labs and medication were reviewed.. Continue same treatment. Continue with symptomatic treatment. Resume home medication. Monitor lytes and vitals. DVT and GI prophylaxis. Further recommendations as per clinical course of the patient DVT prophylaxis: Subcutaneous heparin GI Prophylaxis: Pepcid Prognosis is guarded most likely we would clear the patient for discharge to [facility] once he is more sober
[2021-10-03] MEDS ORDERED: ATORVASTATIN 40 MG TAB PO SCH (09:00)
[2021-10-03] MEDS ORDERED: FAMOTIDINE 20 MG/2 ML VIAL IV SCH (09:00)
[2021-10-03] MEDS ORDERED: ASPIRIN 81 MG PO SCH (09:00)
[2021-10-03] MEDS ORDERED: MULTIVITAMINS, THERA 1 EACH TAB PO SCH (09:00)
[2021-10-03] MEDS ORDERED: QUEtiapine 200 MG TAB PO SCH (09:00)
[2021-10-03 09:38] LABS: Basophils # (A) 0.06 X 10*3/uL (0.00-0.10); Basophils % (A) 1.3 %; Eosinophils # (A) 0.02 X 10*3/uL (0.04-0.35); Eosinophils % (A) 0.4 %; HCT 32.1 % (39.6-50.0); HGB 10.7 g/dL (13.0-17.0); Immature Grans, Automated 0.2 %; Lymphocytes # (A) 1.88 X 10*3/uL (0.90-5.00); Lymphocytes % (A) 40.5 %; MCH 32.5 pg (27.0-32.0); MCHC 33.3 g/dL (32.0-37.0); MCV 97.6 fL (80.0-97.0); Mean Platelet Volume 11.7 fL (9.5-12.2); Monocytes # (A) 0.53 X 10*3/uL (0.20-1.00); Monocytes % (A) 11.4 %; NRBC Per 100 WBC 0 /100 WBCS (0.0-0.0); Neutrophils # (A) 2.14 X 10*3/uL (1.80-7.70); Neutrophils % (A) 46.2 %; Platelet Count 170 X 10*3/uL (140-440); RBC 3.29 X 10*6/uL (4.40-5.60); RDW 14.7 % (11.5-14.5); WBC 4.64 X 10*3/uL (4.50-10.00)
[2021-10-03 09:56] LABS: African American GFR (CKD) 117.2 (60.0-200.0); Anion Gap 11.7 mmol/L (10.00-18.00); BUN/Creat Ratio 16.43 Ratio (12.00-20.00); Blood Urea Nitrogen 11.5 mg/dL (9.0-27.0); Calcium 9.5 mg/dL (8.7-10.3); Carbon Dioxide 25.3 mmol/L (20.0-27.5); Non-African American GFR(CKD) 101.1 (60.0-200.0); Potassium 4.2 mmol/L (3.5-5.5)
[2021-10-03] MEDS: VENLAFAXINE HCL 75 MG TAB PO SCH (10:12)
[2021-10-03] MEDS: THIAMINE 100 MG TAB PO SCH ×2 (10:13→18:20)
[2021-10-03] MEDS: QUEtiapine 400 MG TAB PO SCH (10:14)
--- NOTE | 2021-10-03 13:24 | P.CN ---
Psychiatric Consult - . Consult date: 10/03/21 Consult:: 10/03/21 12:35 IDENTIFYING DATA: Patient is a , unemployed, 61-year-old -Syrian male who presented to the hospital with SI and hallucinations and hx of polysubstance abuse. HPI: Patient presented to the hospital yesterday apparently with suicidal ideations and alcohol intoxication. Patient has history of depression with psychotic features also polysubstance abuse. He had a blood alcohol level of 251 and was admitted medically. Patient also had and was cocaine positive in his urine drug screen. He was endorsing hearing auditory hallucinations. Patient was seen today sleeping in the ER and was agreeable to speak a contract writer. He had a very constricted affect, poor eye contact. Poor hygiene and grooming. He states that he has not been taking medications consistently. He states that he is feeling depressed and having anxiety. He claims that he was also having suicidal ideations however has no plan or intent. He also endorsed hearing voices that are telling him to harm himself and harm other people. He is denying any visual hallucinations at this time. Denying any homicidal ideations. He states his sleep has been fairly poor appetite and poor. Patient's last psychiatric admission was in March 2021 where patient was discharged on Effexor and also Invega Sustenna. Patient admits to a history of methamphetamine use, alcohol use regularly and also cocaine use however he was minimizing his use of cocaine. Also admits to nicotine use or cigarettes. PAST PSYCHIATRIC HISTORY: Patient has previous diagnoses of major depressive disorder, alcohol use disorder, cocaine use disorder, and nicotine dependence. The patient reports that he has been nonadherent with his medications. He was last discharged on Invega Sustenna and Effexor from the mental health unit in March 2021. The patient has had multiple inpatient psychiatric admissions with this being his ninth admission since 2016. The patient reports that he has not followed up in the outpatient setting. He does report prior attempts at suicide. Past Medical History: Coronary Artery Disease (CAD), Chest Pain / Angina, Hyperlipidemia, Myocardial Infarction ([place]), Osteoarthritis (OA) Additional Past Medical History / Comment(s): arthritis in back and bilateral knees, hiatal hernia repair, ALLERGIES: Blueberry, nitroglycerin CHEMICAL DEPENDENCY HISTORY: As per HPI FAMILY PSYCHIATRIC/SUBSTANCE USE HISTORY: Patient reports that he lost 2 brothers to suicide. SOCIAL HISTORY: Patient was born and raised in [place], [place].He has a 12th grade education. He reports previously working for the [employer] and retired approximately 15 years ago. He currently receives Social Security disability. Marital status is listed as however the patient states that he is currently engaged/. He reports he is Islam and has support from his voodoo community and his family. MENTAL STATUS EXAM: General Appearance: Patient appears to be stated age is lethargic, directable, concrete, evasive. Patient appears to have poor hygiene and grooming. Behavior: Patient is seated without any agitated behavior. Eye contact is poor. Psychomotor slowing is evident. Speech: Patient's speech is fluent and nonpressured. Nonspontaneous. Low in volume. Monotone Mood/Affect: Patient reports their mood is depressed and anxious, affect is congruent and withdrawn. Suicidality/Homicidality: Patient endorses suicidal and denies any homicidal ideation. Perceptions: Patient reports both auditory and visual hallucinations. Though content/process: There is no evidence of any delusional thought content and thought process is linear and goal-directed. [place]. Evasive. Memory and concentration: AOX3, grossly intact for the purposes of this session. Can spell "WORLD" backwards Judgment and insight: Chronically poor IMPRESSIONS: Major depressive disorder, recurrent, severe, with psychotic features Alcohol use disorder severe cocaine use disorder history of Methamphetamine use disorder Nicotine dependence PLAN: -At this time patient DOES meet criteria for inpatient psychiatric admission. -Would recommend the following medication changes/additions: Paliperidone by mouth 3 mg daily at bedtime for auditory hallucinations/psychosis. Effexor 75 mg daily for mood/anxiety. -CIWA protocol with PRN Ativan for alcohol withdrawal. Continue to monitor vital signs. -Continue 1:1 sitter for safety until patient is transferred to MHU -Cannot leave AMA at this time. Patient will need a petition and certification if attempting to leave AMA. -When medically stable, patient is eligible for transfer to a psych bed when available. -Communicated plan to patient's nurse -Psychiatry will sign off at this time -Please contact with any questions.
[2021-10-03] MEDS ORDERED: LORazepam 2 MG/ML INJ IM PRN (16:34)
[2021-10-03] MEDS ORDERED: LORazepam 1 MG TAB PO PRN (16:34)
[2021-10-03] MEDS ORDERED: HALOPERIDOL LACTATE 5 MG/ML 1 ML VIAL IM PRN (16:34)
[2021-10-03] MEDS ORDERED: haloperidoL 5 MG TAB PO PRN (16:34)
[2021-10-03] MEDS ORDERED: MAG HYDROX/AL HYDROX/SIMETH 30 ML CUP PO PRN (16:37)
[2021-10-03] MEDS ORDERED: ACETAMINOPHEN TAB 325 MG TAB PO PRN (16:37)
[2021-10-03] MEDS ORDERED: MAGNESIUM HYDROXIDE 2,400 MG/10 ML CUP PO PRN (16:37)
[2021-10-03 17:50] VITALS: BP 132/80; PULSE 89; TEMP 98.1
[2021-10-03] MEDS ORDERED: PALIPERIDONE 3 MG TAB.ER.24 PO SCH (21:00)
[2021-10-03] MEDS ORDERED: FAMOTIDINE 20 MG TAB PO SCH (21:00)
[2021-10-04] MEDS ORDERED: NICOTINE 14MG/24HR PATCH TRANSDERM SCH (09:00)
[2021-10-04] MEDS ORDERED: VENLAFAXINE HCL ER 75 MG CAP PO SCH (09:00)
[2021-10-04] MEDS ORDERED: FOLIC ACID 1 MG TAB PO SCH (09:00)
== END 2021-10-03 19:44 ==
LOC: EC 14:17 → 4SSUR 17:41 → 3MHU 10-03 16:27
PROVIDERS: ADMIT Psychiatry & Neurology Psychiatry; ATTEND Psychiatry & Neurology Psychiatry
DX: F33.3 Major depressive disorder, recurrent, severe with psychotic symptoms (principal); F10.20 Alcohol dependence, uncomplicated; F14.20 Cocaine dependence, uncomplicated; E44.0 Moderate protein-calorie malnutrition; I25.10 Atherosclerotic heart disease of native coronary artery without angina pectoris; I25.2 Old myocardial infarction; E78.5 Hyperlipidemia, unspecified; M17.0 Bilateral primary osteoarthritis of knee; M47.9 Spondylosis, unspecified; F43.10 Post-traumatic stress disorder, unspecified; D64.9 Anemia, unspecified; F17.210 Nicotine dependence, cigarettes, uncomplicated; Z95.5 Presence of coronary angioplasty implant and graft; Z79.82 Long term (current) use of aspirin; Z79.899 Other long term (current) drug therapy; Z63.4 Disappearance and death of family member; Z82.49 Family history of ischemic heart disease and other diseases of the circulatory system; Z20.822 Contact with and (suspected) exposure to COVID-19; Y90.8 Blood alcohol level of 240 mg/100 ml or more
CPT/HCPCS: 96360; 96361 ×2; 99285; 93005; G0378 ×2; J2060; J3411; 36415; 80048; 80306; 80320; 82075; 85025; 87635

== ENCOUNTER 2021-10-03 17:41 | Inpatient (IN) | payer MEDICARE, MEDICAID ==
[2021-10-03] MEDS ORDERED: MAGNESIUM HYDROXIDE 2,400 MG/10 ML CUP PO PRN (20:06)
[2021-10-03] MEDS ORDERED: MAG HYDROX/AL HYDROX/SIMETH 30 ML CUP PO PRN (20:06)
[2021-10-03] MEDS ORDERED: LORazepam 2 MG/ML INJ IM PRN (20:11)
[2021-10-03] MEDS ORDERED: HALOPERIDOL LACTATE 5 MG/ML 1 ML VIAL IM PRN (20:11)
[2021-10-03] MEDS ORDERED: haloperidoL 5 MG TAB PO PRN (20:11)
[2021-10-03] MEDS ORDERED: PALIPERIDONE 3 MG TAB.ER.24 PO SCH (21:00)
[2021-10-04] MEDS: ATORVASTATIN 40 MG TAB PO SCH (10:05)
[2021-10-04] MEDS: MULTIVITAMINS, THERA 1 EACH TAB PO SCH (10:05)
[2021-10-04] MEDS: VENLAFAXINE HCL ER 75 MG CAP PO SCH (10:05)
[2021-10-04] MEDS: ASPIRIN 81 MG PO SCH (10:05)
[2021-10-04] MEDS: FOLIC ACID 1 MG TAB PO SCH (10:05)
[2021-10-04] MEDS: THIAMINE 100 MG TAB PO SCH (10:06)
[2021-10-04] MEDS: NICOTINE 14MG/24HR PATCH TRANSDERM SCH ×2 (10:06→10:09)
[2021-10-04] MEDS ORDERED: OLANZapine 5 MG TAB PO ONE (12:15)
--- NOTE | 2021-10-04 12:15 | P.HP ---
Psychiatric H&P - . H&P Date: 10/04/21 History & Physical: Allergies Allergy/AdvReac Type Severity Reaction Status Date / Time blueberry Allergy Rash/Hives Verified 10/02/21 16:08 nitroglycerin Allergy Swelling Verified 10/02/21 16:08 Vital Signs Temp 98 F 10/04/21 06:30 Pulse 65 10/04/21 06:30 Resp 18 10/04/21 06:30 BP 111/71 10/04/21 06:30 Pulse Ox 99 10/03/21 17:41 FiO2 Intake & Output 10/03/21 10/04/21 10/04/21 18:59 06:59 18:59 Weight 66.2 kg 10/04/21 12:09 IDENTIFYING DATA: Patient is a , unemployed, 61-year-old -German male who presented to the hospital with SI and hallucinations and hx of polysubstance abuse. HPI: Patient was seen initially by medical technical writer on 10/03 for psych consultation on medical floors and was taken from that note "Patient presented to the hospital yesterday apparently with suicidal ideations and alcohol intoxication. Patient has history of depression with psychotic features also polysubstance abuse. He had a blood alcohol level of 251 and was admitted medically. Patient also had and was cocaine positive in his urine drug screen. He was endorsing hearing auditory hallucinations. Patient was seen today sleeping in the ER and was agreeable to speak a medical technical writer. He had a very constricted affect, poor eye contact. Poor hygiene and grooming. He states that he has not been taking medications consistently. He states that he is feeling depressed and having anxiety. He claims that he was also having suicidal ideations however has no plan or intent. He also endorsed hearing voices that are telling him to harm himself and harm other people. He is denying any visual hallucinations at this time. Denying any homicidal ideations. He states his sleep has been fairly poor appetite and poor. Patient's last psychiatric admission was in March 2021 where patient was discharged on Effexor and also Invega Sustenna. Patient admits to a history of methamphetamine use, alcohol use regularly and also cocaine use however he was minimizing his use of cocaine. Also admits to nicotine use or cigarettes." patient was seen again today for evaluation and signed voluntary. He was in bed claiming that he feels distressed by the auditory hallucinations telling him to harm himself. He states that he does have fleeting thoughts of suicide however no intent or plan today. He continues to claim that he feels depressed. Continues to have a constricted affect and concrete. Claims he knows he has a "drug problem" and was open to the idea of going to the [facility] or [facility] for rehab. He admits to some anxiety at this time. Claims that his sleep has been poor last night. Denying any visual hallucinations. Denying any homicidal ideations intent or plan. PAST PSYCHIATRIC HISTORY: Patient has previous diagnoses of major depressive disorder, alcohol use disorder, cocaine use disorder, and nicotine dependence. The patient reports that he has been nonadherent with his medications. He was last discharged on Invega Sustenna and Effexor from the mental health unit in March 2021. The patient has had multiple inpatient psychiatric admissions with this being his ninth admission since 2015. The patient reports that he has not followed up in the outpatient setting. He does report prior attempts at suicide. Past Medical History: Coronary Artery Disease (CAD), Chest Pain / Angina, Hyperlipidemia, Myocardial Infarction (ND), Osteoarthritis (OA) Additional Past Medical History / Comment(s): arthritis in back and bilateral knees, hiatal hernia repair, ALLERGIES: Blueberry, nitroglycerin CHEMICAL DEPENDENCY HISTORY: As per HPI FAMILY PSYCHIATRIC/SUBSTANCE USE HISTORY: Patient reports that he lost 2 brothers to suicide. SOCIAL HISTORY: Patient was born and raised in [place], [place].He has a 12th grade education. He reports previously working for the [employer] and retired approximately 15 years ago. He currently receives Social Security disability. Marital status is listed as however the patient states that he is currently engaged/. He reports he is Taoist and has support from his hinduism community and his family. MENTAL STATUS EXAM: General Appearance: Patient appears to be laying in bed stated age is alert, directable, concrete, evasive. Patient appears to have poor hygiene and grooming. Behavior: Patient is seated without any agitated behavior. Eye contact is poor. Psychomotor slowing is evident. Speech: Patient's speech is fluent and nonpressured. Nonspontaneous. Low in volume. Monotone Mood/Affect: Patient reports their mood is depressed and anxious, affect is congruent and withdrawn. Suicidality/Homicidality: Patient endorses suicidal and denies any homicidal ideation, however no intent or plan. Perceptions: Patient reports auditory hallucinations, telling him to harm himself. no VH Though content/process: There is no evidence of any delusional thought content and thought process is linear and goal-directed. [place]. Evasive. Memory and concentration: AOX3, grossly intact for the purposes of this session. Can spell "WORLD" backwards Judgment and insight: Chronically poor STRENGTHS/WEAKNESSES: strength is that patient is resilient. Weakness is that patient has poor judgment and is impulsive INTELLECT: average IMPRESSIONS: Major depressive disorder, recurrent, severe, with psychotic features Alcohol use disorder severe cocaine use disorder history of Methamphetamine use disorder Nicotine dependence PLAN: -Patient is admitted under voluntary status to MHU for stabilization of psychiatric symptoms and safety. Patient has signed adult voluntary form and medication consent and is placed in patient's chart. -Medications : increase Paliperidone by mouth 6 mg daily at bedtime for auditory hallucinations/psychosis. Effexor 75 mg daily for mood/anxiety, increase to 150 mg over the weekend. -CIWA protocol with PRN Ativan for alcohol withdrawal. Continue to monitor vital signs. -Ativan and Haldol PRN for agitation/aggression -Started thiamine, MVM for etoh use -Patient was counselled on substance abuse and desired to cut back on use -Patient was informed of the risks, benefits and side effects of the medication and patient verbally consented to taking the medications. Patient signed med consent form and was placed in chart. -Internal Medicine consult to perform medical evaluation and physical. -NRT - nicotine patch -SW on board for discharge planning. Encourage patient to participate in groups to work on coping skills. He states that he may be interested in going back to rehab upon discharge.
--- NOTE | 2021-10-04 19:19 | P.CONS ---
History of Present Illness - History of Present Illness his is a pleasant 61 years old -Qatari male who is in known to my se rvnidia from yesterday where he was admitted to the general medical floor with alcohol intoxication but his main complaint was suicidal thoughts and ideations. He has chronic medical problems including coronary artery disease status post stent, hyperlipidemia and osteoarthritis, bipolar, PTSD and schizophrenia.. Patient yesterday was stabilized and transferred to the psych unit. Today is lying in bed comfortable still withdrawn still lethargic still with emotional mood and looks depressed. However he denies any physical complaints no chest pain or dyspnea no GI or urinary symptoms. Vitas looks stable and patient is afebrile. Labs reviewed, CBC showing only mild anemia with hemoglobin 11.6. Sodium potassium and creatinine are all normal Urine drug screen is positive for cocaine Symmetrical level is elevated to 251 substance abuse with cocaine EKG showing normal sinus rhythm at [address]-T changes In the emergency room and received normal saline, Ativan and thiamine Review of Systems Review of systems CONSTITUTIONAL: No fever, no malaise, no fatigue. HEENT: No recent visual problems or hearing problems. Denied any sore throat. CARDIOVASCULAR: No orthopnea, PND, no palpitations, no syncope. PULMONARY: No shortness of breath, no cough, no hemoptysis. GASTROINTESTINAL: No diarrhea, no nausea, no vomiting, no abdominal pain. Normoactive bowel sounds. NEUROLOGICAL: No headaches, no weakness, no numbness. HEMATOLOGICAL: Denies any bleeding or petechiae. GENITOURINARY: Denies any burning micturition, frequency, or urgency. MUSCULOSKELETAL/RHEUMATOLOGICAL: Denies any joint pain, swelling, or any muscle pain. ENDOCRINE: Denies any polyuria or polydipsia. Past Medical History Past Medical History: Coronary Artery Disease (CAD), Chest Pain / Angina, Hyperlipidemia, Myocardial Infarction (SD), Osteoarthritis (OA) Additional Past Medical History / Comment(s): arthritis in back and bilateral knees,hx hiatal hernia Last Myocardial Infarction Date:: 2004 History of Any Multi-Drug Resistant Organisms: None Reported Past Surgical History: Bowel Resection, Heart Catheterization With Stent Additional Past Surgical History / Comment(s): Cardiac stents x 3, bowel surgery for pinpoint hole in bowel, L knee arthroscopy, colonoscopy/benign polypectomies,hiatal hernia repair Past Anesthesia/Blood Transfusion Reactions: No Reported Reaction Date of Last Stent Placement:: 2013 Past Psychological History: Bipolar, Depression, PTSD, Schizophrenia Smoking Status: Current every day smoker Past Alcohol Use History: Occasional Past Drug Use History: None Reported - Past Family History Father Family Medical History: Respiratory Disorder Additional Family Medical History / Comment(s): Father at age 64 from Black lung disease Mother Family Medical History: Hypertension, Myocardial Infarction (SD) Additional Family Medical History / Comment(s): Mother of an SD at 78yrs old. Brother(s) Family Medical History: Myocardial Infarction (SD) Additional Family Medical History / Comment(s): Patient has 10 brothers and 2 from myocardial infarction and had history of alcoholism. Sister(s) Family Medical History: Hypertension, Myocardial Infarction (SD) Additional Family Medical History / Comment(s): He has 7 sisters that are alive with no major medical problems. He has one son that has and one daughter that is alive and okay. Medications and Allergies Home Medications Medication Instructions Recorded Confirmed Type Aspirin 81 mg PO DAILY 30 Days 03/19/21 10/03/21 Rx Atorvastatin [Lipitor] 40 mg PO DAILY 30 Days #30 tablet 08/15/21 10/03/21 Rx HYDROcodone/APAP 10-325MG [[place] 1 tab PO QID PRN 10/02/21 10/03/21 History 10-325] QUEtiapine [SEROquel] 200 mg PO DAILY 10/02/21 10/03/21 History QUEtiapine [SEROquel] 400 mg PO HS 10/02/21 10/03/21 History Venlafaxine HCl [Effexor] 75 mg PO BID-W/MEALS 10/02/21 10/03/21 History Allergies Allergy/AdvReac Type Severity Reaction Status Date / Time blueberry Allergy Rash/Hives Verified 10/02/21 16:08 nitroglycerin Allergy Swelling Verified 10/02/21 16:08 Physical Exam Vitals: Vital Signs Temp Pulse Resp BP Pulse Ox 10/04/21 06:30 98 F 65 18 111/71 10/03/21 17:41 98.1 F 89 18 132/80 99 Intake and Output 10/03/21 10/04/21 10/04/21 22:59 06:59 14:59 Other: Weight 66.2 kg GENERAL: The patient is alert and oriented x3, not in any acute distress. Well developed, well nourished. HEENT: Pupils are round and equally reacting to light. EOMI. No scleral icterus. No conjunctival pallor. Normocephalic, atraumatic. No pharyngeal erythema. No thyromegaly. CARDIOVASCULAR: S1 and S2 present. No murmurs, rubs, or gallops. PULMONARY: Chest is clear to auscultation, no wheezing or crackles. ABDOMEN: Soft, nontender, nondistended, normoactive bowel sounds. No palpable organomegaly. MUSCULOSKELETAL: No joint swelling or deformity. EXTREMITIES: No cyanosis, clubbing, or pedal edema. NEUROLOGICAL: Gross neurological examination did not reveal any focal deficits. SKIN: No rashes. no petechiae. Assessment and Plan Assessment: Bipolar, depression with suicidal ideation. Other psych history of PTSD and schizophrenia (has auditory hallucination) Alcohol abuse at-risk of alcohol withdrawal History of coronary artery disease status post stentAmount of active issue Hyperlipidemia Mild to moderate calorie protein malnutrition Plan: This is a pleasant 61 years old male who presents with alcohol abuse and suicidal ideation related to his depression continue with CIWA protocol. And thiamine we will defer the management of psych illnesses to primary psychiatric team Continue with folic acid and vitamins Continue with aspirin Continue with home medication Thank you for consulting us, we will follow up on an as-needed basis
[2021-10-04] MEDS: LORazepam 1 MG TAB PO PRN (19:39)
[2021-10-04] MEDS: PALIPERIDONE 6 MG TAB.ER.24 PO SCH (19:39)
[2021-10-05] MEDS: ATORVASTATIN 40 MG TAB PO SCH (08:24)
[2021-10-05] MEDS: MULTIVITAMINS, THERA 1 EACH TAB PO SCH (08:24)
[2021-10-05] MEDS: NICOTINE 14MG/24HR PATCH TRANSDERM SCH (08:24)
[2021-10-05] MEDS: ASPIRIN 81 MG PO SCH (08:25)
[2021-10-05] MEDS: THIAMINE 100 MG TAB PO SCH (08:25)
[2021-10-05] MEDS: VENLAFAXINE HCL ER 75 MG CAP PO SCH (08:25)
[2021-10-05] MEDS: FOLIC ACID 1 MG TAB PO SCH (08:25)
[2021-10-05 13:39] LABS: Basophils % (A) 1 %; Eosinophils # (A) 0.1 k/uL (0-0.7); Eosinophils % (A) 1 %; HCT 39.2 % (39.0-53.0); HGB 12.5 gm/dL (13.0-17.5); Lymphocytes # (A) 1.6 k/uL (1.0-4.8); Lymphocytes % (A) 42 %; MCH 31.8 pg (25.0-35.0); MCHC 31.8 g/dL (31.0-37.0); MCV 99.8 fL (80.0-100.0); Mean Platelet Volume 9.7; Monocytes # (A) 0.3 k/uL (0-1.0); Monocytes % (A) 9 %; Neutrophils # (A) 1.7 k/uL (1.3-7.7); Neutrophils % (A) 44 %; Platelet Count 191 k/uL (150-450); RBC 3.92 m/uL (4.30-5.90); RDW 13.4 % (11.5-15.5); WBC 3.9 k/uL (3.8-10.6)
--- NOTE | 2021-10-05 14:12 | P.PN ---
Progress Note - Text Progress Note Date: 10/05/21 Clinical Problems: Substance induced mood disorder, rule out major depressive disorder, alcohol use disorder severe, cocaine use disorder, history of methamphetamine use disorder, tobacco use Interim history: I reviewed the medical record and interviewed the patient. The patient complained of continued feelings depression, suicidal ideation and "voices". These were his presenting complaints and he alleges that they have not improved since admission. He complained of continued fatigue, energy, anhedonia, hopelessness and helplessness. In addition, he complained of continued problems with sleep and requested "something" for his insomnia. He denied experiencing alcohol withdrawal symptoms. He was somewhat vague about his "voices" and was unsure what she is experiencing true auditory hallucinations. He has not attended therapeutic groups and activities. According to the sleep log he slept 8 hours last night. He spends much was time alone seldom interacting with staff or peers. He is posed no management problem and has had no episodes of behavioral dyscontrol. Mental status exam: He presented as a tall casually groomed dark skinned -Austrian male who was pleasant on approach. He made eye contact and appeared to attend to interview. He had a sad facial expression. He was alert and oriented to person, place and time. He showed psychomotor retardation but no abnormal involuntary movements. Her speech was slow with decreased volume and rhythm. His affect was depressed and unreactive. He expressed thoughts of suicide and wishes but denied intent or plan. He denied homicidal ideation. He feels hopeless, helpless and worthless. He ruminated about family problems. He did not express ideas reference, paranoid ideation or delusions. His thinking was concrete but his associations were coherent, logical and goal directed. He described auditory hallucinations but did not appear to be responding to internal stimuli. Assessment: He continues to have signs and symptoms of depression with subjective reports of suicidal thoughts and wishes. Plan: [facility] inpatient treatment. Safety precautions. Continue psychotropic medications-Invega 6 mg at bedtime, Effexor XR's 75 mg daily. Habitrol for smoking cessation. Restoril 15 mg by mouth at bedtime when necessary for sleep. Haldol and Ativan for anxiety, agitation acute psychosis. Encourage participation in therapeutic groups and activities. Evaluate clinical status response to treatment daily basis.
[2021-10-05 16:56] LABS: Chol/HDL Ratio 1.85 Ratio; LDL Cholesterol,Calculated 68.4 mg/dL (0.0-131.0); VLDL Calculation 12.58 mg/dL (5.00-40.00)
[2021-10-05] MEDS: TEMAZEPAM 15 MG CAP PO PRN (20:36)
[2021-10-05] MEDS: PALIPERIDONE 6 MG TAB.ER.24 PO SCH (20:36)
[2021-10-06 00:46] LABS: ALT 18 U/L (10-49); AST 20 U/L (14-35); African American GFR (CKD) 110.2 (60.0-200.0); Albumin 4.3 g/dL (3.8-4.9); Blood Urea Nitrogen 13.2 mg/dL (9.0-27.0); Calcium 10.3 mg/dL (8.7-10.3); Carbon Dioxide 27.8 mmol/L (20.0-27.5); Chloride 103 mmol/L (96-109); Glucose 98 mg/dL (70-110); Non-African American GFR(CKD) 95.1 (60.0-200.0); Potassium 4.5 mmol/L (3.5-5.5); Sodium 142 mmol/L (135-145); Total Protein 7.2 g/dL (6.2-8.2)
[2021-10-06 00:55] LABS: Alkaline Phosphatase 50 U/L (41-126)
[2021-10-06 00:56] LABS: Bilirubin, Conjugated <0.20 mg/dL (0.20-0.40)
[2021-10-06] MEDS: NICOTINE 14MG/24HR PATCH TRANSDERM SCH (08:22)
[2021-10-06] MEDS: ATORVASTATIN 40 MG TAB PO SCH (08:23)
[2021-10-06] MEDS: FOLIC ACID 1 MG TAB PO SCH (08:28)
[2021-10-06] MEDS: MULTIVITAMINS, THERA 1 EACH TAB PO SCH (08:28)
[2021-10-06] MEDS: THIAMINE 100 MG TAB PO SCH (08:28)
[2021-10-06] MEDS: ASPIRIN 81 MG PO SCH (08:28)
[2021-10-06] MEDS: VENLAFAXINE HCL ER 75 MG CAP PO SCH (08:29)
--- NOTE | 2021-10-06 10:50 | P.PN ---
Progress Note - Text Progress Note Date: 10/06/21 Clinical Problems: Substance induced mood disorder, rule out major depressive disorder, alcohol use disorder severe, cocaine use disorder, history of methamphetamine use disorder, tobacco use Interim history: I reviewed the medical record and interviewed the patient. He "feels the same" and continues to hear"voices". He requested to have Haldol 5 mg by mouth in addition to his prescribed medications today. He well not attended therapeutic groups and activities. According to the sleep log he slept 7 hours last night. He spends much was time alone seldom interacting with staff or peers. He has posed no management problem and has had no episodes of behavioral dyscontrol. Mental status exam: He presented as a tall casually groomed dark skinned -[place] male who was pleasant on approach. He made eye contact and appeared to attend to interview. He had a sad facial expression. He was alert and oriented to person, place and time. He showed psychomotor retardation but no abnormal involuntary movements. Her speech was slow with decreased volume and rhythm. His affect was depressed and unreactive. He expressed thoughts of suicide and wishes but denied intent or plan. He denied homicidal ideation. He feels hopeless, helpless and worthless. He did not express ideas reference, paranoid ideation or delusions. His thinking was concrete but his associations were coherent, logical and goal directed. He described auditory hallucinations but did not appear to be responding to internal stimuli. Assessment: He continues to have signs and symptoms of depression with subjective reports of suicidal thoughts and wishes. Plan: Continue inpatient treatment. Safety precautions. Continue psychotropic medications-Invega 6 mg at bedtime, Effexor XR's 75 mg daily. Habitrol for smoking cessation. Restoril 15 mg by mouth at bedtime when necessary for sleep. Haldol and Ativan for anxiety, agitation acute psychosis. Encourage participation in therapeutic groups and activities. Evaluate clinical status response to treatment daily basis.
[2021-10-06] MEDS: TEMAZEPAM 15 MG CAP PO PRN (20:29)
[2021-10-06] MEDS: PALIPERIDONE 6 MG TAB.ER.24 PO SCH (20:30)
[2021-10-07] MEDS: FOLIC ACID 1 MG TAB PO SCH (08:33)
[2021-10-07] MEDS: ATORVASTATIN 40 MG TAB PO SCH (08:33)
[2021-10-07] MEDS: THIAMINE 100 MG TAB PO SCH (08:33)
[2021-10-07] MEDS: MULTIVITAMINS, THERA 1 EACH TAB PO SCH (08:33)
[2021-10-07] MEDS: VENLAFAXINE HCL ER 75 MG CAP PO SCH (08:33)
[2021-10-07] MEDS: ASPIRIN 81 MG PO SCH (08:33)
[2021-10-07] MEDS: NICOTINE 14MG/24HR PATCH TRANSDERM SCH (08:35)
--- NOTE | 2021-10-07 11:36 | P.PN ---
Progress Note - Text Progress Note Date: 10/07/21 Interval History: Patient was seen wandering the hallways and was directable and agreeable to sp eak with flex o writer operator in the office. Patient appears to be more calm and cooperative today with flex o writer operator. He continues to state that he feels depressed however states that the medications are helping. He states that he wants ago to [facility] upon discharge and was asking if he could have his packet sent over there. He acknowledged his drug use history. He states that he is going to some groups however mainly keeping himself. He appears to have a mild improvement in his affect today and is more directable and cooperative. He claims that he is sleeping fairly at nighttime however did take the Restoril last night. We spoke about different medication options for sleep and patient was agreeable to try trazodone instead. At this time patient denies any suicidal or homical ideations, intent or plan. Patient denies any auditory, visual hallucinations and denies any paranoia or delusions. Patient denies any side effects from the medications and has been compliant with meds. Mental Status Exam: General Appearance: Patient appears to be laying in bed stated age is alert, directable, concrete. Patient appears to have improving hygiene and grooming. Behavior: Patient is seated without any agitated behavior. Eye contact is improving. Speech: Patient's speech is fluent and nonpressured. Low in volume. Monotone Mood/Affect: Patient reports their mood is improving, affect is congruent and withdrawn, mildly Suicidality/Homicidality: Patient denies any suicidal and denies any homicidal ideation, however no intent or plan. Perceptions: Patient denies any auditory hallucinations and also denies any visual hallucinations today. Though content/process: There is no evidence of any delusional thought content and thought process is linear and goal-directed. [place]. Memory and concentration: AOX3, grossly intact for the purposes of this session Judgment and insight: Chronically poor, improving mildly IMPRESSIONS: Major depressive disorder, recurrent, severe, with psychotic features Alcohol use disorder severe cocaine use disorder history of Methamphetamine use disorder Nicotine dependence Plan: -Patient continues to meet criteria for inpatient psychiatric admission for symptom stabilization and safety. Patient has signed adult voluntary form and medication consent and was placed in patient's chart. -Medications: Paliperidone by mouth 6 mg daily at bedtime for auditory hallucinations/psychosis. Effexor 150 mg daily for mood/anxiety. Discontinued Restoril and replaced with trazodone 50 mg daily at bedtime for insomnia/mood. -When necessary Ativan and Haldol for agitation/aggression. -NRT - nicotine patch -SW on board for discharge planning. Encouraged the patient to participate in milieu. toll transmission worker sent patient's packet to [facility] and currently aw aiting intake date. Due to patient's high likelihood of relapse patient will need to be directly discharged to [facility] from the hospital.
[2021-10-07] MEDS: ACETAMINOPHEN TAB 325 MG TAB PO PRN (16:31)
[2021-10-07] MEDS: PALIPERIDONE 6 MG TAB.ER.24 PO SCH (20:33)
[2021-10-07] MEDS ORDERED: traZODone HCL 50 MG TAB PO SCH (21:00)
[2021-10-07] MEDS: LORazepam 1 MG TAB PO PRN (23:15)
[2021-10-08] MEDS: ATORVASTATIN 40 MG TAB PO SCH (09:27)
[2021-10-08] MEDS: NICOTINE 14MG/24HR PATCH TRANSDERM SCH (09:28)
[2021-10-08] MEDS: VENLAFAXINE HCL ER 75 MG CAP PO SCH (09:28)
[2021-10-08] MEDS: FOLIC ACID 1 MG TAB PO SCH (09:28)
[2021-10-08] MEDS: MULTIVITAMINS, THERA 1 EACH TAB PO SCH (09:28)
[2021-10-08] MEDS: ASPIRIN 81 MG PO SCH (09:28)
[2021-10-08] MEDS: THIAMINE 100 MG TAB PO SCH (09:28)
--- NOTE | 2021-10-08 10:17 | P.PN ---
Progress Note - Text Progress Note Date: 10/08/21 Interval History: Patient was seen wandering the hallways and was directable and agreeable to sp eak with medical underwriter in the office. Patient appears to be more calm and cooperative today with medical underwriter. Patient continues to state that he is doing better today. He states that the medications have been helping him so far with his depression and anxiety. He states that the voices have been improving and also no more suicidal thoughts. He states that he did find it a bit difficult to fall asleep last night and wanted the trazodone increased to 100 mg. States that he is going to some groups. Continues to want to go to rehab. At this time patient denies any suicidal or homical ideations, intent or plan. Patient denies any auditory, visual hallucinations and denies any paranoia or delusions. Patient denies any side effects from the medications and has been compliant with meds. Mental Status Exam: General Appearance: Patient appears to be laying in bed stated age is alert, directable, concrete. Patient appears to have improving hygiene and grooming. Behavior: Patient is seated without any agitated behavior. Eye contact is improving. Speech: Patient's speech is fluent and nonpressured. Low in volume. Monotone Mood/Affect: Patient reports their mood is improving, affect is congruent and withdrawn, mildly Suicidality/Homicidality: Patient denies any suicidal and denies any homicidal ideation, however no intent or plan. Perceptions: Patient denies any auditory hallucinations and also denies any visual hallucinations today. Though content/process: There is no evidence of any delusional thought content and thought process is linear and goal-directed. [place]. Memory and concentration: AOX3, grossly intact for the purposes of this session Judgment and insight: Chronically poor, improving mildly IMPRESSIONS: Major depressive disorder, recurrent, severe, with psychotic features Alcohol use disorder severe cocaine use disorder history of Methamphetamine use disorder Nicotine dependence Plan: -Patient continues to meet criteria for inpatient psychiatric admission for symptom stabilization and safety. Patient has signed adult voluntary form and medication consent and was placed in patient's chart. -Medications: Paliperidone by mouth 6 mg daily at bedtime for auditory hallucinations/psychosis. Effexor 150 mg daily for mood/anxiety. increase trazodone 100 mg daily at bedtime for insomnia/mood. -When necessary Ativan and Haldol for agitation/aggression. -NRT - nicotine patch -SW on board for discharge planning. Encouraged the patient to participate in milieu. general farmworker sent patient's packet to [facility] and currently awaiting intake date. Due to patient's high likelihood of relapse patient will need to be directly discharged to [facility] from the hospital.
[2021-10-08] MEDS: PALIPERIDONE 6 MG TAB.ER.24 PO SCH (20:29)
[2021-10-08] MEDS: traZODone HCL 100 MG TAB PO SCH (20:30)
[2021-10-09] MEDS: THIAMINE 100 MG TAB PO SCH (08:30)
[2021-10-09] MEDS: ASPIRIN 81 MG PO SCH (08:30)
[2021-10-09] MEDS: FOLIC ACID 1 MG TAB PO SCH (08:30)
[2021-10-09] MEDS: ATORVASTATIN 40 MG TAB PO SCH (08:30)
[2021-10-09] MEDS: MULTIVITAMINS, THERA 1 EACH TAB PO SCH (08:30)
[2021-10-09] MEDS: VENLAFAXINE HCL ER 75 MG CAP PO SCH (08:30)
[2021-10-09] MEDS: NICOTINE 14MG/24HR PATCH TRANSDERM SCH (08:30)
[2021-10-09] MEDS ORDERED: VENLAFAXINE HCL ER 75 MG CAP PO STA (09:14)
--- NOTE | 2021-10-09 09:17 | P.PN ---
Progress Note - Text Progress Note Date: 10/09/21 Interval History: Patient was seen wandering the hallways and was directable and agreeable to sp eak with specification writer in the office. Patient appears to be more calm and cooperative today with specification writer and claims that he is doing a bit better compared to yesterday. He states that the voices have been significantly improving. He claims that he is able to sleep better last night and is not reporting any side effects today. He claims that he is going to some groups and appears to be more visible on the unit. He continues to state that he wants to go to rehab however still waiting on intake date. At this time patient denies any suicidal or homical ideations, intent or plan. Patient denies any auditory, visual hallucinations and denies any paranoia or delusions. Patient denies any side effects from the medications and has been compliant with meds. Mental Status Exam: General Appearance: Patient appears to be laying in bed stated age is alert, directable, concrete. Patient appears to have improving hygiene and grooming. Behavior: Patient is seated without any agitated behavior. Eye contact is improving. Speech: Patient's speech is fluent and nonpressured. Low in volume. Monotone Mood/Affect: Patient reports their mood is improving, affect is congruent and withdrawn, mildly Suicidality/Homicidality: Patient denies any suicidal and denies any homicidal ideation, however no intent or plan. Perceptions: Patient denies any auditory hallucinations and also denies any visual hallucinations today. Though content/process: There is no evidence of any delusional thought content and thought process is linear and goal-directed. [place]. Memory and concentration: AOX3, grossly intact for the purposes of this session Judgment and insight: Chronically poor, improving mildly IMPRESSIONS: Major depressive disorder, recurrent, severe, with psychotic features Alcohol use disorder severe cocaine use disorder history of Methamphetamine use disorder Nicotine dependence Plan: -Patient continues to meet criteria for inpatient psychiatric admission for symptom stabilization and safety. Patient has signed adult voluntary form and medication consent and was placed in patient's chart. -Medications: Paliperidone by mouth 6 mg daily at bedtime for auditory hallucinations/psychosis. increased Effexor 150 mg daily for mood/anxiety, trazodone 100 mg daily at bedtime for insomnia/mood. -When necessary Ativan and Haldol for agitation/aggression. -NRT - nicotine patch -SW on board for discharge planning. Encouraged the patient to participate in milieu. clerical and office support workers sent patient's packet to [facility] and currently awaiting intake date. Due to patient's high likelihood of relapse patient will need to be directly discharged to [facility] from the hospital. currently awaiting intake date.
[2021-10-09] MEDS: ACETAMINOPHEN TAB 325 MG TAB PO PRN (18:54)
[2021-10-09] MEDS: PALIPERIDONE 6 MG TAB.ER.24 PO SCH (20:33)
[2021-10-09] MEDS: traZODone HCL 100 MG TAB PO SCH (20:33)
[2021-10-10] MEDS: LORazepam 1 MG TAB PO PRN (00:09)
[2021-10-10 07:03] VITALS: BP 119/78; PULSE 98; RESP 18; TEMP 97.7
[2021-10-10] MEDS: NICOTINE 14MG/24HR PATCH TRANSDERM SCH (08:58)
[2021-10-10] MEDS: FOLIC ACID 1 MG TAB PO SCH (08:58)
[2021-10-10] MEDS: ASPIRIN 81 MG PO SCH (08:59)
[2021-10-10] MEDS: MULTIVITAMINS, THERA 1 EACH TAB PO SCH (08:59)
[2021-10-10] MEDS: ATORVASTATIN 40 MG TAB PO SCH (08:59)
[2021-10-10] MEDS: THIAMINE 100 MG TAB PO SCH (08:59)
[2021-10-10] MEDS ORDERED: VENLAFAXINE HCL ER 150 MG CAP PO SCH (09:00)
--- NOTE | 2021-10-10 10:08 | P.DS ---
Providers Date of admission: 10/03/21 17:41 Expected date of discharge: 10/10/21 Attending physician: Desmond Reynaga MD Consults: 10/03/21 20:06 Consult Physician Routine Consulting Provider: Angie Houser Consult Reason/Comments: Medical H&P Do you want consulting provider notified?: Yes Primary care physician: Physician Nonstaff - Discharge Diagnosis(es) (1) Major depressive disorder with psychotic features Current Visit: Yes Status: Acute Priority: High (2) Alcohol use disorder, severe, dependence Current Visit: Yes Status: Acute Priority: High (3) Cocaine use disorder Current Visit: Yes Status: Acute Priority: High (4) History of methamphetamine abuse Current Visit: Yes Status: Acute Priority: Medium (5) Nicotine dependence Current Visit: Yes Status: Acute Priority: Low Hospital Course: Admission HPI: Admission note was completed by publications writer "Patient is a , unemployed, 61-year-old -[place] male who presented to the hospital with SI and hallucinations and hx of polysubstance abuse. Patient was seen initially by on 10/03 for psych consultation on medical floors and was taken from that note "Patient presented to the hospital yesterday apparently with suicidal ideations and alcohol intoxication. Patient has history of depression with psychotic features also polysubstance abuse. He had a blood alcohol level of 251 and was admitted medically. Patient also had and was cocaine positive in his urine drug screen. He was endorsing hearing auditory hallucinations. Patient was seen today sleeping in the ER and was agreeable to speak a publications writer. He had a very constricted affect, poor eye contact. Poor hygiene and grooming. He states that he has not been taking medications consistently. He states that he is feeling depressed and having anxiety. He claims that he was also having suicidal ideations however has no plan or intent. He also endorsed hearing voices that are telling him to harm himself and harm other people. He is denying any visual hallucinations at this time. Denying any homicidal ideations. He states his sleep has been fairly poor appetite and poor. Patient's last psychiatric admission was in March 2021 where patient was discharged on Effexor and also Invega Sustenna. Patient admits to a history of methamphetamine use, alcohol use regularly and also cocaine use however he was minimizing his use of cocaine. Also admits to nicotine use or cigarettes." patient was seen again today for evaluation and signed voluntary. He was in bed claiming that he feels distressed by the auditory hallucinations telling him to harm himself. He states that he does have fleeting thoughts of suicide however no intent or plan today. He continues to claim that he feels depressed. Continues to have a constricted affect and concrete. Claims he knows he has a "drug problem" and was open to the idea of going to the [facility] or [place] for rehab. He admits to some anxiety at this time. Claims that his sleep has been poor last night. Denying any visual hallucinations. Denying any homicidal ideations intent or plan." Hospital course: Upon admission to the unit patient was directable and agreeable to commence treatment and signed adult voluntary form. Patient got along well with other patients on the unit and followed unit protocol. Patient was compliant with the medications and denied any side effects throughout hospital course. Patient was started on paliperidone by mouth 6 mg daily at bedtime for auditory hallucinations/psychosis. Patient was also restarted back on Effexor increased her dose of 150 mg daily for mood/anxiety. Patient was also started on trazodone 100 mg daily at bedtime for insomnia/mood. Patient spoke of his stressors and engaged in therapy both group and individual. Patient was also seen by medical team for history and physical exam. Throughout the course of the hospitalization patient gradually improved with regards to mood, anxiety, sleep and returned back to their baseline level of functioning. On the day of discharge patient denied any suicidal or homicidal ideations intent or plan denied any auditory or visual hallucinations. Patient endorsed wanting to live for his future and his family. The patient denied any access to guns or weapons. Patient denied any paranoia and did not endorse any delusions. Patient does have a significant history of substance abuse and was counseled on abstaining from all substances including alcohol and marijuana. Patient called access line and was able to get an intake date at [facility] for next week however patient until then will stay with his back at home and she will bring him to his intake appointment next week. Patient was also counseled on the medications and need for regular compliance and was encouraged to follow- up with their outpatient appointment for mental health and also for primary care. Prior to discharge a family meeting will be arranged by social media sr strategy manager to answer any questions and ensure safety upon discharge. Mental status exam: General Appearance: Patient appears to be thin, stated age is alert, pleasant, and cooperative. Patient is in no acute distress and has improved hygiene and grooming Behavior: Patient is calmly seated without any agitated behavior. Speech: Patient's speech is fluent and nonpressured. Monotone. Mood/Affect: Patient reports their mood is "better", affect is congruent and euthymic. Suicidality/Homicidality: Patient denies having any suicidal or homicidal ideation intent or plan. Perceptions: Patient denies any auditory or visual hallucinations. Though content/process: There is no evidence of any delusional thought content and thought process is linear and goal-directed. Memory and concentration: AOX3, grossly intact for the purposes of this session. Can spell "WORLD" backwards correctly. Judgment and insight: chronically poor, however has improved with guarded prognosis Impression: Major depressive disorder, with psychotic features Alcohol use disorder, severe dependence History of methamphetamine abuse Cocaine use disorder Nicotine dependence Plan: -Continue with discharge today as patient has improved and stabilized psychiatrically and is not currently an imminent threat to himself and/or others. Patient will remain at chronically elevated risk for harm to self and/or others due to his polysubstance abuse. -Continue medications: Effexor 150 mg daily for mood/anxiety, paliperidone by mouth 6 mg daily at bedtime for auditory hallucinations/psychosis, trazodone 100 mg daily at bedtime for insomnia/mood. -Patient was counseled on the need for medication compliance and appropriate follow-up at mental health and also primary care for medical issues. Patient verbalized understanding and agreed. -Social work to arrange for and conduct family meeting to ensure safety upon discharge and answer any questions/concerns. Social work also to arrange for patients follow up appointments for psychiatric care along with follow up with primary care provider. -Patient counseled on abstaining from recreational drugs and marijuana and alcohol. Was informed/educated on the adverse effects on their physical and mental health. Patient verbally agreed and understood. Patient's will take patient to his intake appointment at [facility] next week. -Patient was instructed to return to the hospital or seek immediate medical care if their psychiatric or medical symptoms do worsen or reoccur. Allergies Allergy/AdvReac Type Severity Reaction Status Date / Time blueberry Allergy Rash/Hives Verified 10/02/21 16:08 nitroglycerin Allergy Swelling Verified 10/02/21 16:08 Laboratory Results WBC 3.9 k/uL (3.8-10.6) 10/05/21 11:36 RBC 3.92 m/uL (4.30-5.90) L 10/05/21 11:36 Hgb 12.5 gm/dL (13.0-17.5) L 10/05/21 11:36 Hct 39.2 % (39.0-53.0) 10/05/21 11:36 MCV 99.8 fL (80.0-100.0) 10/05/21 11:36 MCH 31.8 pg (25.0-35.0) 10/05/21 11:36 MCHC 31.8 g/dL (31.0-37.0) 10/05/21 11:36 RDW 13.4 % (11.5-15.5) 10/05/21 11:36 Plt Count 191 k/uL (150-450) 10/05/21 11:36 MPV 9.7 10/05/21 11:36 Neutrophils % 44 % 10/05/21 11:36 Lymphocytes % 42 % 10/05/21 11:36 Monocytes % 9 % 10/05/21 11:36 Eosinophils % 1 % 10/05/21 11:36 Basophils % 1 % 10/05/21 11:36 Neutrophils # 1.7 k/uL (1.3-7.7) 10/05/21 11:36 Lymphocytes # 1.6 k/uL (1.0-4.8) 10/05/21 11:36 Monocytes # 0.3 k/uL (0-1.0) 10/05/21 11:36 Eosinophils # 0.1 k/uL (0-0.7) 10/05/21 11:36 Basophils # 0.0 k/uL (0-0.2) 10/05/21 11:36 Sodium 142 mmol/L (135-145) 10/05/21 11:36 Sodium Cancelled 10/05/21 11:36 Potassium 4.5 mmol/L (3.5-5.5) 10/05/21 11:36 Potassium Cancelled 10/05/21 11:36 Chloride 103 mmol/L (96-109) 10/05/21 11:36 Chloride Cancelled 10/05/21 11:36 Carbon Dioxide 27.8 mmol/L (20.0-27.5) H 10/05/21 11:36 Carbon Dioxide Cancelled 10/05/21 11:36 Anion Gap 11.20 mmol/L (10.00-18.00) 10/05/21 11:36 Anion Gap Cancelled 10/05/21 11:36 BUN 13.2 mg/dL (9.0-27.0) 10/05/21 11:36 BUN Cancelled 10/05/21 11:36 Creatinine 0.8 mg/dL (0.6-1.5) 10/05/21 11:36 Creatinine Cancelled 10/05/21 11:36 Est GFR (CKD-EPI)AfAm 110.2 (60.0-200.0) 10/05/21 11:36 Est GFR (CKD-EPI)AfAm Cancelled 10/05/21 11:36 Est GFR (CKD-EPI)NonAf 95.1 (60.0-200.0) 10/05/21 11:36 Est GFR (CKD-EPI)NonAf Cancelled 10/05/21 11:36 Glucose 98 mg/dL (70-110) 10/05/21 11:36 Glucose Cancelled 10/05/21 11:[address] Glu mg/dL 109 10/05/21 11:36 Hemoglobin A1c 5.4 % (0.0-6.0) 10/05/21 11:36 Calcium 10.3 mg/dL (8.7-10.3) 10/05/21 11:36 Calcium Cancelled 10/05/21 11:36 Total Bilirubin 0.50 mg/dL (0.30-1.20) 10/05/21 11:36 Total Bilirubin Cancelled 10/05/21 11:36 Conjugated Bilirubin <0.20 mg/dL (0.20-0.40) L 10/05/21 11:36 Conjugated Bilirubin Cancelled 10/05/21 11:36 Unconjugated Bilirubin mg/dL (0.20-1.00) 10/05/21 11:36 Unconjugated Bilirubin Cancelled 10/05/21 11:36 Delta Bilirubin Cancelled 10/05/21 11:36 AST 20 U/L (14-35) 10/05/21 11:36 AST Cancelled 10/05/21 11:36 ALT 18 U/L (10-49) 10/05/21 11:36 ALT Cancelled 10/05/21 11:36 Alkaline Phosphatase 50 U/L (41-126) 10/05/21 11:36 Alkaline Phosphatase Cancelled 10/05/21 11:36 Total Protein 7.2 g/dL (6.2-8.2) 10/05/21 11:36 Total Protein Cancelled 10/05/21 11:36 Albumin 4.3 g/dL (3.8-4.9) 10/05/21 11:36 Albumin Cancelled 10/05/21 11:36 Triglycerides 62.90 mg/dL (0.00-149.00) 10/05/21 11:36 Cholesterol 176.00 mg/dL (0.00-200.00) 10/05/21 11:36 LDL Cholesterol, Calc 68.4 mg/dL (0.0-131.0) 10/05/21 11:36 VLDL Cholesterol, Calc 12.58 mg/dL (5.00-40.00) 10/05/21 11:36 HDL Cholesterol 95.00 mg/dL (40.00-60.00) H 10/05/21 11:36 Cholesterol/HDL Ratio 1.85 Ratio 10/05/21 11:36 TSH 0.384 uIU/mL (0.350-5.500) 10/05/21 11:36 TSH Cancelled 10/05/21 11:36 Vital Signs Temp 97.7 F 10/10/21 06:30 Pulse 98 10/10/21 06:30 Resp 18 10/10/21 06:30 BP 119/78 10/10/21 06:30 Pulse Ox 99 10/09/21 05:56 FiO2 Patient Condition at Discharge: Stable Plan - Discharge Summary New Discharge Prescriptions: New Aspirin 81 mg PO DAILY 30 Days tab Nicotine 14Mg/24Hr Patch [Habitrol] 1 patch TRANSDERM DAILY 14 Days patch Paliperidone [Invega] 6 mg PO HS 30 Days tab traZODone HCL [Desyrel] 100 mg PO HS 30 Days tab Venlafaxine HCl ER [Effexor XR] 150 mg PO DAILY 30 Days cap Multivitamins, Thera [Multivitamin (formulary)] 1 each PO DAILY 30 Days tab Continue Aspirin 81 mg PO DAILY 30 Days Atorvastatin [Lipitor] 40 mg PO DAILY 30 Days tablet Discontinued QUEtiapine [SEROquel] 400 mg PO HS QUEtiapine [SEROquel] 200 mg PO DAILY HYDROcodone/APAP 10-325MG [Perry 10-325] 1 tab PO QID PRN PRN Reason: Pain Venlafaxine HCl [Effexor] 75 mg PO BID-W/MEALS Discharge Medication List Aspirin 81 mg PO DAILY 30 Days 03/19/21 [Rx] Aspirin 81 mg PO DAILY 30 Days tab 10/10/21 [Rx] Atorvastatin [Lipitor] 40 mg PO DAILY 30 Days tablet 10/10/21 [Rx] Multivitamins, Thera [Multivitamin (formulary)] 1 each PO DAILY 30 Days tab 10/10/21 [Rx] Nicotine 14Mg/24Hr Patch [Habitrol] 1 patch TRANSDERM DAILY 14 Days patch 10/10/21 [Rx] Paliperidone [Invega] 6 mg PO HS 30 Days tab 10/10/21 [Rx] Venlafaxine HCl ER [Effexor XR] 150 mg PO DAILY 30 Days cap 10/10/21 [Rx] traZODone HCL [Desyrel] 100 mg PO HS 30 Days tab 10/10/21 [Rx] [facility] - 10/11/21 11:00 am Activity/Diet/Wound Care/Special Instructions: Avoid the use of street drugs and alcohol. Take all prescriptions as pr escribed. When you are in need of refills on your medications, please contact your medical provider and/or outpatient psychiatrist to have this done. Please go to scheduled outpatient appointment for aftercare treatment. If symptoms return or become worse, call the crisis line at and/or go to the nearest emergency room for evaluation. Discharge Disposition: HOME SELF-CARE
== END 2021-10-10 12:46 | disposition home or self-care (01) | DRG 885 ==
LOC: 3MHU 17:41
PROVIDERS: ADMIT Psychiatry & Neurology Psychiatry; ATTEND Psychiatry & Neurology Psychiatry
DX: F33.3 Major depressive disorder, recurrent, severe with psychotic symptoms (principal); R45.851 Suicidal ideations; E44.1 Mild protein-calorie malnutrition; F10.20 Alcohol dependence, uncomplicated; F14.10 Cocaine abuse, uncomplicated; F15.11 Other stimulant abuse, in remission; Y90.8 Blood alcohol level of 240 mg/100 ml or more; E78.5 Hyperlipidemia, unspecified; M47.9 Spondylosis, unspecified; M17.0 Bilateral primary osteoarthritis of knee; I25.10 Atherosclerotic heart disease of native coronary artery without angina pectoris; F43.10 Post-traumatic stress disorder, unspecified; D64.9 Anemia, unspecified; G47.00 Insomnia, unspecified; I25.2 Old myocardial infarction; Z68.21 Body mass index [BMI] 21.0-21.9, adult; F17.200 Nicotine dependence, unspecified, uncomplicated; Z71.6 Tobacco abuse counseling; Z79.82 Long term (current) use of aspirin; Z79.899 Other long term (current) drug therapy; Z95.5 Presence of coronary angioplasty implant and graft; Z56.0 Unemployment, unspecified; Z71.51 Drug abuse counseling and surveillance of drug abuser; Z71.41 Alcohol abuse counseling and surveillance of alcoholic; Z88.8 Allergy status to other drugs, medicaments and biological substances; Z91.018 Allergy to other foods; Z81.1 Family history of alcohol abuse and dependence
CPT/HCPCS: 36415; 80048; 80053; 80061; 80306; 80320; 82075; 82248; 83036; 84443; 85025; 87635

== ENCOUNTER 2021-10-26 13:13 | Emergency (ER) | payer MEDICARE, OTHER ==
[2021-10-26 13:30] VITALS: BP 128/95; PULSE 82; RESP 18; TEMP 98.8
--- NOTE | 2021-10-26 13:55 | XR ---
EXAMINATION TYPE: XR foot complete RT DATE OF EXAM: 10/26/2021 COMPARISON: NONE HISTORY: 61-year-old male with big toe pain after injury. TECHNIQUE: 3 views. Additional coned down lateral view of the forefoot. FINDINGS: There is oblique fracture involving the proximal and mid aspect of the first proximal phala nx. There appears to be intra-articular extension into the medial margin of the first MTP joint. The lateral view suggests dorsal displacement by 5 mm. Mild degenerative change first MTP joint and firs t metatarsal sesamoid joints. Os peroneum. There appears to be dorsal displacement. IMPRESSION: Oblique fracture first proximal phalanx. Fracture line appears to extend to the medial margin of the first MTP joint. Lateral view suggests 5 mm of dorsal displacement.
[2021-10-26] MEDS ORDERED: ACET/COD 300 MG/30 MG STARTER PACK 6 TAB BTL PO STA (14:35)
--- NOTE | 2021-10-26 14:39 | ED ---
General Adult HPI - General Chief complaint: Extremity Injury, Lower Stated complaint: toe pain Time Seen by Provider: 10/26/21 14:02 Source: patient, RN notes reviewed Mode of arrival: ambulatory Limitations: no limitations - History of Present Illness Initial comments: Patient is a pleasant 61-year-old male presenting to the emergency department with concerns for right great toe pain. Incident occurred yesterday. Patient accidentally kicked a dresser. Patient has discomfort of his right great toe since that time. Discomfort increases with movement and walking. No other area of injury or concern. No history of chronic foot problems - Related Data Previous Rx's Medication Instructions Recorded Aspirin 81 mg PO DAILY 30 Days 03/19/21 Aspirin 81 mg PO DAILY 30 Days tab 10/10/21 Atorvastatin [Lipitor] 40 mg PO DAILY 30 Days tablet 10/10/21 Multivitamins, Thera [Multivitamin 1 each PO DAILY 30 Days tab 10/10/21 (formulary)] Nicotine 14Mg/24Hr Patch [Habitrol] 1 patch TRANSDERM DAILY 14 Days 10/10/21 patch Paliperidone [Invega] 6 mg PO HS 30 Days tab 10/10/21 Venlafaxine HCl ER [Effexor XR] 150 mg PO DAILY 30 Days cap 10/10/21 traZODone HCL [Desyrel] 100 mg PO HS 30 Days tab 10/10/21 Allergies Allergy/AdvReac Type Severity Reaction Status Date / Time blueberry Allergy Rash/Hives Verified 10/26/21 13:29 nitroglycerin Allergy Swelling Verified 10/26/21 13:29 Review of Systems ROS Statement: Those systems with pertinent positive or pertinent negative responses have been documented in the HPI. ROS Other: All systems not noted in ROS Statement are negative. Constitutional: Denies: fever Eyes: Denies: eye pain ENT: Denies: ear pain Respiratory: Denies: cough Cardiovascular: Denies: chest pain Endocrine: Denies: fatigue Gastrointestinal: Denies: abdominal pain Genitourinary: Denies: dysuria Musculoskeletal: Reports: as per HPI Skin: Denies: rash Neurological: Denies: weakness Past Medical History Past Medical History: Coronary Artery Disease (CAD), Chest Pain / Angina, Hyperlipidemia, Myocardial Infarction (CA), Osteoarthritis (OA) Additional Past Medical History / Comment(s): arthritis in back and bilateral knees,hx hiatal hernia Last Myocardial Infarction Date:: 2004 History of Any Multi-Drug Resistant Organisms: None Reported Past Surgical History: Bowel Resection, Heart Catheterization With Stent Additional Past Surgical History / Comment(s): Cardiac stents x 3, bowel surgery for pinpoint hole in bowel, L knee arthroscopy, colonoscopy/benign polypectomies,hiatal hernia repair Past Anesthesia/Blood Transfusion Reactions: No Reported Reaction Date of Last Stent Placement:: 2013 Past Psychological History: Bipolar, Depression, PTSD, Schizophrenia Smoking Status: Current every day smoker Past Alcohol Use History: Occasional Past Drug Use History: None Reported - Past Family History Father Family Medical History: Respiratory Disorder Additional Family Medical History / Comment(s): Father at age 64 from Black lung disease Mother Family Medical History: Hypertension, Myocardial Infarction (CA) Additional Family Medical History / Comment(s): Mother of an CA at 78yrs old. Brother(s) Family Medical History: Myocardial Infarction (CA) Additional Family Medical History / Comment(s): Patient has 10 brothers and 2 from myocardial infarction and had history of alcoholism. Sister(s) Family Medical History: Hypertension, Myocardial Infarction (CA) Additional Family Medical History / Comment(s): He has 7 sisters that are alive with no major medical problems. He has one son that has and one daughter that is alive and okay. General Exam Limitations: no limitations General appearance: alert, in no apparent distress Head exam: Present: atraumatic Eye exam: Present: normal appearance Respiratory exam: Present: normal lung sounds bilaterally Cardiovascular Exam: Present: regular rate, normal rhythm Extremities exam: Present: tenderness (Right proximal great toe tenderness swel ling and mild ecchymosis. Distally the toe is neurovascular intact, normal cap refill. Able to move toe. Good sensation), normal capillary refill Neurological exam: Present: alert. Absent: motor sensory deficit Psychiatric exam: Present: normal affect, normal mood Skin exam: Present: other (Ecchymosis) Course Vital Signs 10/26/21 13:28 Temperature 98.8 F Pulse Rate 82 Respiratory 18 Rate Blood Pressure 128/95 O2 Sat by Pulse 98 Oximetry Medical Decision Making - Radiology Data Radiology results: image reviewed (X-ray right foot does have concern for proximal first phalanx fracture.) Disposition Clinical Impression: Toe fracture, right Disposition: HOME SELF-CARE Condition: Stable Instructions (If sedation given, give patient instructions): Toe Fracture (ED) Additional Instructions: Please do follow-up with orthopedics as well as primary care physician being the week. Ice to affected area. [id number] Motrin as needed. Return for increased pain, swelling, worsening or change in symptoms or any other concerns. Is patient prescribed a controlled substance at d/c from ED?: No Referrals: Luke Hill MD [STAFF PHYSICIAN] - 1-2 days Zayra Holland NPC [Nurse Practitioner] - 1-2 days Time of Disposition: 14:39
== END 2021-10-26 15:32 | disposition home or self-care (01) ==
LOC: EC 13:13
DX: S92.411A Displaced fracture of proximal phalanx of right great toe, initial encounter for closed fracture (principal); I25.10 Atherosclerotic heart disease of native coronary artery without angina pectoris; E78.5 Hyperlipidemia, unspecified; I25.2 Old myocardial infarction; M19.90 Unspecified osteoarthritis, unspecified site; F17.200 Nicotine dependence, unspecified, uncomplicated; Z91.018 Allergy to other foods; Z88.8 Allergy status to other drugs, medicaments and biological substances; W22.03XA Walked into furniture, initial encounter
CPT/HCPCS: 99283

== ENCOUNTER 2021-11-09 07:38 | Emergency (ER) | payer MEDICARE, OTHER ==
[2021-11-09] MEDS ORDERED: ASPIRIN 325 MG TAB PO STA (08:04)
[2021-11-09] MEDS ORDERED: KETOROLAC 15 MG/ML 1 ML VIAL IVP STA (08:04)
[2021-11-09 08:10] LABS: HCT 43.2 % (39.0-53.0); HGB 13.7 gm/dL (13.0-17.5); MCH 31.6 pg (25.0-35.0); MCHC 31.6 g/dL (31.0-37.0); MCV 99.9 fL (80.0-100.0); Mean Platelet Volume 9.2; Platelet Count 176 k/uL (150-450); RBC 4.33 m/uL (4.30-5.90); RDW 14.1 % (11.5-15.5); WBC 4.2 k/uL (3.8-10.6)
--- NOTE | 2021-11-09 08:17 | ED ---
General Adult HPI - General Chief complaint: Upper Respiratory Infection Stated complaint: Chest Congestion Time Seen by Provider: 11/09/21 07:42 Source: patient, RN notes reviewed, old records reviewed Mode of arrival: ambulatory - History of Present Illness Initial comments: 61-year-old male with 4 days of cough, congestion. Patient states he is coughing up yellow sputum. He has no associated dyspnea. No measured fever. He states he has had some hot and cold sensation. He reports a central chest pain worse with cough. Patient has. Prior history of CAD, hypertension and hyperlipidemia. Patient states he smokes about a half a cigarette daily. Patient denies any known contact with coronavirus. He's had a mild sore throat and nasal congestion as well. - Related Data Previous Rx's Medication Instructions Recorded Aspirin 81 mg PO DAILY 30 Days 03/19/21 Aspirin 81 mg PO DAILY 30 Days tab 10/10/21 Atorvastatin [Lipitor] 40 mg PO DAILY 30 Days tablet 10/10/21 Multivitamins, Thera [Multivitamin 1 each PO DAILY 30 Days tab 10/10/21 (formulary)] Nicotine 14Mg/24Hr Patch [Habitrol] 1 patch TRANSDERM DAILY 14 Days 10/10/21 patch Paliperidone [Invega] 6 mg PO HS 30 Days tab 10/10/21 Venlafaxine HCl ER [Effexor XR] 150 mg PO DAILY 30 Days cap 10/10/21 traZODone HCL [Desyrel] 100 mg PO HS 30 Days tab 10/10/21 Allergies Allergy/AdvReac Type Severity Reaction Status Date / Time blueberry Allergy Rash/Hives Verified 11/09/21 07:43 nitroglycerin Allergy Swelling Verified 11/09/21 07:43 Review of Systems ROS Statement: Those systems with pertinent positive or pertinent negative responses have been documented in the HPI. ROS Other: All systems not noted in ROS Statement are negative. Past Medical History Past Medical History: Coronary Artery Disease (CAD), Chest Pain / Angina, Hyperlipidemia, Myocardial Infarction ([place]), Osteoarthritis (OA) Additional Past Medical History / Comment(s): arthritis in back and bilateral knees,hx hiatal hernia Last Myocardial Infarction Date:: 2004 History of Any Multi-Drug Resistant Organisms: None Reported Past Surgical History: Bowel Resection, Heart Catheterization With Stent Additional Past Surgical History / Comment(s): Cardiac stents x 3, bowel surgery for pinpoint hole in bowel, L knee arthroscopy, colonoscopy/benign polypectomies,hiatal hernia repair Past Anesthesia/Blood Transfusion Reactions: No Reported Reaction Date of Last Stent Placement:: 2013 Past Psychological History: Bipolar, Depression, PTSD, Schizophrenia Smoking Status: Current every day smoker Past Alcohol Use History: Occasional Past Drug Use History: None Reported - Past Family History Father Family Medical History: Respiratory Disorder Additional Family Medical History / Comment(s): Father at age 64 from Black lung disease Mother Family Medical History: Hypertension, Myocardial Infarction (AR) Additional Family Medical History / Comment(s): Mother of an AR at 78yrs old. Brother(s) Family Medical History: Myocardial Infarction (AR) Additional Family Medical History / Comment(s): Patient has 10 brothers and 2 from myocardial infarction and had history of alcoholism. Sister(s) Family Medical History: Hypertension, Myocardial Infarction (AR) Additional Family Medical History / Comment(s): He has 7 sisters that are alive with no major medical problems. He has one son that has and one daughter that is alive and okay. General Exam General appearance: alert, in no apparent distress Head exam: Present: atraumatic, normocephalic Eye exam: Present: normal appearance, PERRL ENT exam: Present: normal exam Neck exam: Present: normal inspection. Absent: tenderness, meningismus Respiratory exam: Present: normal lung sounds bilaterally. Absent: respiratory distress, wheezes, rales Cardiovascular Exam: Present: regular rate, normal rhythm GI/Abdominal exam: Present: soft. Absent: distended, tenderness Neurological exam: Present: alert. Absent: motor sensory deficit Psychiatric exam: Present: normal affect, normal mood Skin exam: Present: warm, dry, intact. Absent: cyanosis, diaphoretic Course Vital Signs 11/09/21 11/09/21 07:41 08:16 Temperature 98.1 F Pulse Rate 100 Respiratory 22 18 Rate Blood Pressure 138/98 O2 Sat by Pulse 97 Oximetry EKG Findings - EKG Comments: EKG Findings:: EKG: Sinus rhythm left anterior fascicular block, rate of 87, NH interval 146, QRS duration 88, QTC 408, no ST segment elevation, no change co mpared to prior. Medical Decision Making - Medical Decision Making 61-year-old male presenting for evaluation of productive cough, nasal congestio n, upper respiratory symptoms. Patient did have some chest congestion as well as a history of CAD. I did perform EKG, chest x-ray, laboratory testing. Patient is Covid negative. He has a normal CBC without leukocytosis. He has a normal CMP, negative troponin. Chest x-ray is clear without focal pneumonia. Is likely a acute bronchitis. Patient is not wheezing there is no respiratory distress. He should follow-up with his primary care physician. - Lab Data Result diagrams: 11/09/21 07:44 11/09/21 07:44 Lab Results 11/09/21 11/09/21 11/09/21 Range/Units 07:44 07:44 07:44 WBC 4.2 (3.8-10.6) k/uL RBC 4.33 (4.30-5.90) m/uL Hgb 13.7 (13.0-17.5) gm/dL Hct 43.2 (39.0-53.0) % MCV 99.9 (80.0-100.0) fL MCH 31.6 (25.0-35.0) pg MCHC 31.6 (31.0-37.0) g/dL RDW 14.1 (11.5-15.5) % Plt Count 176 (150-450) k/uL MPV 9.2 PT 9.3 (9.0-12.0) sec INR 0.8 (<1.2) APTT 24.2 (22.0-30.0) sec Sodium (137-145) mmol/L Potassium (3.5-5.1) mmol/L Chloride (98-107) mmol/L Carbon Dioxide (22-30) mmol/L Anion Gap mmol/L BUN (9-20) mg/dL Creatinine (0.66-1.25) mg/dL Est GFR (CKD-EPI)AfAm (>60 ml/min/1.73 sqM) Est GFR (CKD-EPI)NonAf (>60 ml/min/1.73 sqM) Glucose (74-99) mg/dL Calcium (8.4-10.2) mg/dL Magnesium (1.6-2.3) mg/dL Total Bilirubin (0.2-1.3) mg/dL AST (17-59) U/L ALT (4-49) U/L Alkaline Phosphatase (38-126) U/L Troponin I (0.000-0.034) ng/mL Total Protein (6.3-8.2) g/dL Albumin (3.5-5.0) g/dL Coronavirus (PCR) Not Detected (Not Detectd) 11/09/21 11/09/21 Range/Units 07:44 07:44 WBC (3.8-10.6) k/uL RBC (4.30-5.90) m/uL Hgb (13.0-17.5) gm/dL Hct (39.0-53.0) % MCV (80.0-100.0) fL MCH (25.0-35.0) pg MCHC (31.0-37.0) g/dL RDW (11.5-15.5) % Plt Count (150-450) k/uL MPV PT (9.0-12.0) sec INR (<1.2) APTT (22.0-30.0) sec Sodium 137 (137-145) mmol/L Potassium 4.6 (3.5-5.1) mmol/L Chloride 99 (98-107) mmol/L Carbon Dioxide 25 (22-30) mmol/L Anion Gap 13 mmol/L BUN 9 (9-20) mg/dL Creatinine 0.77 (0.66-1.25) mg/dL Est GFR (CKD-EPI)AfAm >90 (>60 ml/min/1.73 sqM) Est GFR (CKD-EPI)NonAf >90 (>60 ml/min/1.73 sqM) Glucose 77 (74-99) mg/dL Calcium 9.9 (8.4-10.2) mg/dL Magnesium 1.8 (1.6-2.3) mg/dL Total Bilirubin 1.1 (0.2-1.3) mg/dL AST 55 (17-59) U/L ALT 20 (4-49) U/L Alkaline Phosphatase 79 (38-126) U/L Troponin I <0.012 (0.000-0.034) ng/mL Total Protein 8.5 H (6.3-8.2) g/dL Albumin 4.9 (3.5-5.0) g/dL Coronavirus (PCR) (Not Detectd) Disposition Clinical Impression: Acute upper respiratory infection Disposition: HOME SELF-CARE Condition: Fair Instructions (If sedation given, give patient instructions): Upper Respiratory Infection (ED) Is patient prescribed a controlled substance at d/c from ED?: No Referrals: Nonstaff,Physician [Primary Care Provider] - 1-2 days Molly Deras MD [REFERRING] - 1-2 days Time of Disposition: 09:28
[2021-11-09 08:18] VITALS: RESP 18
[2021-11-09 08:20] LABS: ALT 20 U/L (4-49); AST 55 U/L (17-59); African American GFR (CKD) >90 (>60 ml/min/1.73 sqM); Albumin 4.9 g/dL (3.5-5.0); Alkaline Phosphatase 79 U/L (38-126); Anion Gap 13 mmol/L; Blood Urea Nitrogen 9 mg/dL (9-20); Calcium 9.9 mg/dL (8.4-10.2); Carbon Dioxide 25 mmol/L (22-30); Chloride 99 mmol/L (98-107); Glucose 77 mg/dL (74-99); Magnesium 1.8 mg/dL (1.6-2.3); Non-African American GFR(CKD) >90 (>60 ml/min/1.73 sqM); Potassium 4.6 mmol/L (3.5-5.1); Sodium 137 mmol/L (137-145); Total Bilirubin 1.1 mg/dL (0.2-1.3); Total Protein 8.5 g/dL (6.3-8.2)
--- NOTE | 2021-11-09 08:27 | XR ---
EXAMINATION TYPE: XR chest 2V DATE OF EXAM: 11/09/2021 8:16 AM COMPARISON: Chest radiographs from 09/08/2021 TECHNIQUE: XR chest 2V Frontal and lateral views of the chest. CLINICAL INDICATION:Male, 61 years old with history of cough; FINDINGS: Lungs/Pleura: There is no evidence of pleural effusion, focal consolidation, or pneumothorax. Pulmonary vascularity: Unremarkable. Heart/mediastinum: Cardiomediastinal silhouette is unremarkable. Musculoskeletal: No acute osseous pathology. surgical clips project over the mediastinum near the gas troesophageal junction. IMPRESSION: No acute cardiopulmonary disease/process.
[2021-11-09 08:38] LABS: INR 0.8 (<1.2); Partial Thromboplastin Time 24.2 sec (22.0-30.0); Prothrombin Time 9.3 sec (9.0-12.0)
[2021-11-09 09:21] LABS: Eosinophils # (M) 0.04 k/uL (0-0.7); Lymphocytes # (M) 1.34 k/uL (1.0-4.8); Monocytes # (M) 0.63 k/uL (0-1.0); Neutrophils # (M) 2.18 k/uL (1.3-7.7); Neutrophils % (M) 52 %; Nucleated Red Blood Cells 0 /100 WBC (0-0); RBC Morphology Normal; Total Cells Counted 100
[2021-11-09 09:48] VITALS: BP 119/89; PULSE 88; TEMP 98.9
== END 2021-11-09 09:44 | disposition home or self-care (01) ==
LOC: EC 07:38
DX: J06.9 Acute upper respiratory infection, unspecified (principal); I25.10 Atherosclerotic heart disease of native coronary artery without angina pectoris; I25.2 Old myocardial infarction; F17.200 Nicotine dependence, unspecified, uncomplicated; Z79.82 Long term (current) use of aspirin; Z91.018 Allergy to other foods; Z88.8 Allergy status to other drugs, medicaments and biological substances; Z20.822 Contact with and (suspected) exposure to COVID-19
CPT/HCPCS: 99284; 36415; 93005; 80053; 83735; 84484; 85025; 85610; 85730; 87635; 71046; 96374; J1885

== ENCOUNTER 2021-12-04 18:31 | Inpatient (IN) | payer MEDICARE, MEDICAID ==
[2021-12-04] MEDS ORDERED: MAG HYDROX/AL HYDROX/SIMETH 30 ML CUP PO PRN (21:17)
[2021-12-04] MEDS ORDERED: MAGNESIUM HYDROXIDE 2,400 MG/10 ML CUP PO PRN (21:17)
[2021-12-04] MEDS ORDERED: ACETAMINOPHEN TAB 325 MG TAB PO PRN (21:17)
[2021-12-04] MEDS ORDERED: hydrOXYzine HCL 50 MG/ML 1 ML VIAL IM PRN (21:23)
[2021-12-04] MEDS ORDERED: OLANZapine 10 MG VIAL IM PRN (21:23)
[2021-12-04] MEDS ORDERED: OLANZapine 5 MG TAB PO PRN (21:23)
[2021-12-05] MEDS: NICOTINE 14MG/24HR PATCH TRANSDERM SCH (08:19)
[2021-12-05] MEDS: hydrOXYzine pamoate 25 MG CAP PO PRN (08:20)
[2021-12-05] MEDS ORDERED: VENLAFAXINE HCL ER 75 MG CAP PO STA (13:48)
--- NOTE | 2021-12-05 13:51 | P.HP ---
Psychiatric H&P - . H&P Date: 12/05/21 History & Physical: Allergies Allergy/AdvReac Type Severity Reaction Status Date / Time blueberry Allergy Rash/Hives Verified 12/05/21 00:39 nitroglycerin Allergy Swelling Verified 12/05/21 00:39 Vital Signs Temp 97.7 F 12/05/21 00:26 Pulse 105 H 12/05/21 00:26 Resp 15 12/05/21 00:26 BP 139/98 12/05/21 00:26 Pulse Ox 96 12/05/21 00:26 FiO2 Intake & Output 12/04/21 12/05/21 12/05/21 18:59 06:59 18:59 Weight 65.119 kg 12/05/21 13:50 IDENTIFYING DATA: Patient is a , unemployed, 61-year-old -[place] male presents to our hospital from [facility] for suicidal ideation and hallucinations in the context of substance abuse. HPI: Patient presented to the hospital on 12/04/2021, transferred from [facility] for psychiatric admission. The patient reported suicidal ideation with a plan to overdose on his medications. He admitted to the PES nurse that he has been using cocaine 3-4 times per week and has been drinking heavily. The patient was admitted voluntarily to the psychiatric unit. Upon evaluation of this provider, the patient continues to report low mood and suicidal ideation. Reports that he has had plans to overdose. He states that he's been feeling hopeless, helpless, and has had decreased motivation. He admits that he has not in taking his medications regularly. He does admit to using cocaine 3-4 times last week as well as drinking heavily in between. He is currently endorsing auditory hallucinations that are commanding him to hurt himself. He is otherwise denying any visual hallucinations, paranoia, or other delusions. The patient was last admitted onto our psychiatric unit in September 2021 and was discharged on a regimen of Effexor, Invega, and trazodone. The patient expressed that he is interested in going to inpatient substance abuse rehabilitation upon discharge. PAST PSYCHIATRIC HISTORY: Patient states that he has a previous diagnosis of major depressive disorder, call use disorder, cocaine use disorder, nicotine dependence. Patient reports that he has been nonadherent with his medications and has previous trials of Seroquel, Invega, Effexor, and trazodone. Patient was last hospitalized on our psychiatric unit in September 2021. He has had numerous psychiatric admissions, including 10 over the past 5 years. Patient reports no consistent outpatient follow-up. Patient reports prior attempts at suicide. PMH: Past Medical History: Coronary Artery Disease (CAD), Chest Pain / Angina, Hyperlipidemia, Myocardial Infarction ([place]), Osteoarthritis (OA) Additional Past Medical History / Comment(s): arthritis in back and bilateral knees,hx hiatal hernia Last Myocardial Infarction Date:: 2004 History of Any Multi-Drug Resistant Organisms: None Reported Past Surgical History: Bowel Resection, Heart Catheterization With Stent Additional Past Surgical History / Comment(s): Cardiac stents x 3, bowel surgery for pinpoint hole in bowel, L knee arthroscopy, colonoscopy/benign polypectomies,hiatal hernia repair Past Anesthesia/Blood Transfusion Reactions: No Reported Reaction Date of Last Stent Placement:: 2013 Past Psychological History: Bipolar, Depression, PTSD, Schizophrenia Smoking Status: Current every day smoker Past Alcohol Use History: Occasional Past Drug Use History: None Reported ALLERGIES: Blueberry, nitroglycerin CHEMICAL DEPENDENCY HISTORY: As per HPI FAMILY PSYCHIATRIC/SUBSTANCE USE HISTORY: The patient reports that he lost 2 brothers due to suicide SOCIAL HISTORY: Patient was born and raised in [place], [place].He has a 12th grade education. He reports previously working for the [employer] and retired approximately 15 years ago. He currently receives Social Security disability. Marital status is listed as however the patient states that he is currently engaged/. He reports he is Worship and has support from his hindu community and his family. MENTAL STATUS EXAM: General Appearance: Patient appears to be stated age is alert, directable, and attempts to cooperate. Patient appears to have disheveled hygiene and grooming. Behavior: Patient is seated without any agitated behavior. Patient displays psychomotor slowing. Speech: Patient's speech is monotone, nonspontaneous, low in volume. Mood/Affect: Patient reports their mood is depressed, affect is congruent and constricted. Suicidality/Homicidality: Patient denies having any homicidal ideation intent or plan. Patient endorses suicidal ideation. Perceptions: Patient denies any visual hallucinations but endorses auditory hallucinations Though content/process: There is no evidence of any delusional thought content and thought process is linear and goal-directed. Memory and concentration: AOX3, grossly intact for the purposes of this session. Can spell "WORLD" backwards Judgment and insight: poor STRENGTHS/WEAKNESSES: strength is that patient is resilient and has significant social support. Weakness is that patient gages and heavy substance abuse and is inconsistent with outpatient treatment. INTELLECT: average IMPRESSIONS: Major depressive disorder, recurrent, severe, with psychotic features Alcohol use disorder severe cocaine use disorder history of Methamphetamine use disorder Nicotine dependence PLAN: -Patient is admitted under voluntary status to [facility] for stabilization of psychiatric symptoms and safety. Patient signed adult voluntary form and medication consent and is placed in patient's chart. -Medications : Will start patient on Invega 3 mg by mouth at bedtime for mood augmentation/psychosis Effexor XR 75 mg by mouth daily for depression/anxiety -Vistaril and Zyprexa PRN for agitation/aggression -Patient was counselled on substance abuse and desired to cut back on use -Patient was informed of the risks, benefits and side effects of the medication and patient verbally consented to taking the medications. Patient signed med consent form and was placed in chart. -Internal Medicine consult to perform medical evaluation and physical. -NRT - nicotine patch -SW on board for discharge planning. Encourage patient to participate in groups to work on coping skills. 12/05/21 13:50
--- NOTE | 2021-12-05 15:37 | P.MDCNMH ---
History of Present Illness H&P Date: 12/05/21 This is a 61-year-old male who was recently over at [facility] in the emergency department and medically cleared and displaying signs of suicidal ideation with thoughts of wanting to harm himself and also having per patient hallucinations and hearing voices that are telling him to hurt himself. Patient was transferred here as a direct voluntary admit to [address] [place] [address] psychiatric unit for further psychiatric evaluation. Patient reports he currently does not have a primary care provider and has not been taking medications as prescribed. Patient does have a past medical history of coronary artery disease, angina, hyperlipidemia, previous myocardial infarctions, osteoarthritis, chronic pain, bipolar depression, PTSD and schizophrenia. Patient does follow with [facility] for psychiatric medications although is noncompliant with this. Patient admits to continued ongoing nicotine use along with cocaine use and drinking. Patient reports he has been drinking more frequently and using cocaine at least 3-4 times a week. Patient reports on exam he does not feel well today and wants the voices to stop. Will resume home medications once verified and updated. Patient was taking aspirin and statin therapy. Review Of Systems: Constitutional: No fever, no chills, no night sweats. No weight change. No weakness, reports fatigue or lethargy. No daytime sleepiness. EENT: No headache. No blurred vision or double vision, no loss of vision. No loss of Hearing, no ringing in the ears, no dizziness. No nasal drainage or congestion. No epistaxis. No sore throat. Lungs: No shortness of breath, cough, no sputum production. No wheezing. Cardiovascular: No chest pain, no lower extremity edema. No palpitations. No paroxysmal nocturnal dyspnea. No orthopnea. No lightheadedness or dizziness. No syncopal episodes. Abdominal: No abdominal pain. No nausea, vomiting. No diarrhea. No constipation. No bloody or tarry stools.. No loss of appetite. Genitourinary: No dysuria, increased frequency, urgency. No urinary retention. Musculoskeletal: No myalgias. No muscle weakness, no gait dysfunction, no frequent falls. No back pain. No neck pain. Integumentary: No wounds, no lesions. No rash or pruritus. No unusual bruising. No change in hair or nails. Neurologic: No aphasia. No facial droop. No change in mentation. No head injury. No headache. No paralysis. No paresthesia. Psychiatric: Reports depression. Reports anxiety. No mood swings. Reports suicidal ideation and hearing voices Endocrine: No abnormal blood sugars. No weight change. No excessive sweating or thirst. No cold intolerance. PHYSICAL EXAMINATION: GENERAL: The patient is alert and oriented x4, Well developed, well nourished. HEENT: Pupils are round and equally reacting to light. EOMI. no scleral icterus. No conjunctival pallor. Normocephalic, atraumatic. No pharyngeal erythema. No thyromegaly. CARDIOVASCULAR: S1 and S2 muffled PULMONARY: diminished breath sounds bilaterally with no wheezing or rhonchi noted. ABDOMEN: soft. Nontender on exam. non-distended, normoactive bowel sounds. No palpable organomegaly. MUSCULOSKELETAL: No joint swelling or deformity. EXTREMITIES: No cyanosis, clubbing, or pedal edema. NEUROLOGICAL: Gross neurological examination did not reveal any focal deficits. Anxious SKIN: No rashes. Assessment: Suicidal ideation with auditory hallucinations Bipolar depression/schizophrenia History of PTSD Voluntary admission to psychiatric unit for further evaluation History of coronary artery disease History of angina hyperlipidemia Osteoarthritis history Chronic pain Continued ongoing nicotine use Noncompliance with medications Drug abuse history GI prophylaxis Plan: Recommend to continue with current medications and management per psychiatric services. Patient was brought to [facility] and medically cleared in the ER and voluntarily signed for transfer to direct admit inpatient psychiatric unit here on [address] for further psychiatric evaluation. Patient was reporting suicidal ideations with auditory hallucinations reporting the voices were trying to tell him to hurt himself. Patient has been using drugs and continued with drinking in the outpatient setting and noncompliant with medications. Patient reports he currently does not have a primary care provider and has been noncompliant with his medications and has not followed up with his substance abuse technician most recently. Patient was recently seen in the emergency department here for an upper respiratory infection and did not follow-up with primary care provider on discharge. Recommend basic labs in the a.m. with an EKG and continue with psychiatric evaluation. Home medications to be resumed once verified and discussed with the patient about encouraging medication compliance and also being cooperative and attending group meetings. The impression and plan of care has been dictated by Tatiana Dale, nurse practitioner as directed. Dr. Mario JOHNSON I have performed a history and examination and MDM of this patient, discussed the same with the dictator, and agree with the dictator's assessment and plan as written ,documented as a scribe. Based on total visit time, I have performed more than 50% of the visit. Any additional findings or plans will be noted. Past Medical History Past Medical History: Coronary Artery Disease (CAD), Chest Pain / Angina, Hyperlipidemia, Myocardial Infarction ([place]), Osteoarthritis (OA) Additional Past Medical History / Comment(s): arthritis in back and bilateral knees,hx hiatal hernia Last Myocardial Infarction Date:: 2004 History of Any Multi-Drug Resistant Organisms: None Reported Past Surgical History: Bowel Resection, Heart Catheterization With Stent Additional Past Surgical History / Comment(s): Cardiac stents x 3, bowel surgery for pinpoint hole in bowel, L knee arthroscopy, colonoscopy/benign polypectomies,hiatal hernia repair Past Anesthesia/Blood Transfusion Reactions: No Reported Reaction Date of Last Stent Placement:: 2013 Past Psychological History: Bipolar, Depression, PTSD, Schizophrenia Additional Psychological History / Comment(s): He states he goes to [facility]. Smoking Status: Current every day smoker Past Alcohol Use History: Occasional Past Drug Use History: Cocaine, IV Drug Use, Marijuana, Opiates, Prescription Drug Abuse Additional Drug Use History / Comment(s): Pt states that he used MJ. Pt states that he has a history of cocaine, drinks a 12 pack per day. - Past Family History Father Family Medical History: Respiratory Disorder Additional Family Medical History / Comment(s): Father at age 64 from Black lung disease Mother Family Medical History: Hypertension, Myocardial Infarction ([place]) Additional Family Medical History / Comment(s): Mother of an AR at 78yrs old. Brother(s) Family Medical History: Myocardial Infarction ([place]) Additional Family Medical History / Comment(s): Patient has 10 brothers and 2 from myocardial infarction and had history of alcoholism. Sister(s) Family Medical History: Hypertension, Myocardial Infarction ([place]) Additional Family Medical History / Comment(s): He has 7 sisters that are alive with no major medical problems. He has one son that has and one daughter that is alive and okay. Medications and Allergies Home Medications Medication Instructions Recorded Confirmed Type Aspirin 81 mg PO DAILY 30 Days 03/19/21 10/03/21 Rx Aspirin 81 mg PO DAILY 30 Days tab 10/10/21 Rx Atorvastatin [Lipitor] 40 mg PO DAILY 30 Days tablet 10/10/21 Rx Multivitamins, Thera [Multivitamin 1 each PO DAILY 30 Days tab 10/10/21 Rx (formulary)] Nicotine 14Mg/24Hr Patch [Habitrol] 1 patch TRANSDERM DAILY 14 Days 10/10/21 Rx patch Paliperidone [Invega] 6 mg PO HS 30 Days tab 10/10/21 Rx Venlafaxine HCl ER [Effexor XR] 150 mg PO DAILY 30 Days cap 10/10/21 Rx traZODone HCL [Desyrel] 100 mg PO HS 30 Days tab 10/10/21 Rx Allergies Allergy/AdvReac Type Severity Reaction Status Date / Time blueberry Allergy Rash/Hives Verified 12/05/21 00:39 nitroglycerin Allergy Swelling Verified 12/05/21 00:39 Physical Exam Vitals: Vital Signs Temp Pulse Resp BP Pulse Ox 12/05/21 00:26 97.7 F 105 H 15 139/98 96 Intake and Output 12/04/21 12/05/21 12/05/21 22:59 06:59 14:59 Other: Weight 68 kg 65.119 kg Cranial Nerve Examination - Cranial Nerves Cranial Nerve I- Olfactory: Intact Cranial Nerve II- Optic: Intact Cranial Nerve III- Oculomotor: Intact Cranial Nerve IV- Trochlear: Intact Cranial Nerve V- Trigeminal: Intact Cranial Nerve - Abducens: Intact Cranial Nerve VII- Facial: Intact Cranial Nerve VIII- Auditory: Intact Cranial Nerve IX- Glossopharyngeal: Intact Cranial Nerve X- Vagus: Intact Cranial Nerve XI- Accessory: Intact Cranial Nerve XII- Hypoglossal: Intact Assessment and Plan Time with Patient: Less than 30
[2021-12-05] MEDS ORDERED: PALIPERIDONE 3 MG TAB.ER.24 PO SCH (21:00)
[2021-12-06] MEDS: ATORVASTATIN 40 MG TAB PO SCH (08:59)
[2021-12-06] MEDS: MULTIVITAMINS, THERA 1 EACH TAB PO SCH (08:59)
[2021-12-06] MEDS: NICOTINE 14MG/24HR PATCH TRANSDERM SCH (09:00)
[2021-12-06] MEDS: ASPIRIN 81 MG PO SCH (09:00)
[2021-12-06] MEDS ORDERED: VENLAFAXINE HCL ER 75 MG CAP PO SCH (09:00)
--- NOTE | 2021-12-06 10:17 | P.PN ---
Progress Note - Text Progress Note Date: 12/06/21 Interval History: Patient was seen wandering the hallways and was directable and agreeable to speak with promotion writer in the office. Currently, the patient expresses significant improvement since restarting his med regimen. He reports that he is excited to go to outpatient rehab on the recommendation of his freelance copywriter. He is currently denying any suicidal or homicidal ideation, intention, and/or plan. He is not reporting any auditory or visual hallucinations today. He states that he last expressed auditory hallucinations last night. He has been adherent with his medication and is not endorsing any significant side effects at this time. He reports no issues regarding his sleep or his appetite. Mental Status Exam: General Appearance: Patient appears to be stated age is alert, directable, and cooperative. Behavior: Patient is calmly seated without any agitated behavior. Speech: Patient's speech is fluent and nonpressured. Mood/Affect: Mood is improving mildly, affect is congruent and constricted. Suicidality/Homicidality: Patient denies having any suicidal or homicidal ideation intent or plan. Perceptions: Patient denies any visual hallucinations and denies any auditory hallucinations Though content/process: There is no evidence of any delusional thought content and thought process is linear and goal-directed. Memory and concentration: AOX3, grossly intact for the purposes of this session Judgment and insight: Improving mildly Vital Signs Temp 97.8 F 12/06/21 05:05 Pulse 79 12/06/21 05:05 Resp 17 12/06/21 05:05 BP 129/91 12/06/21 05:05 Pulse Ox 96 12/06/21 05:05 FiO2 Assessment Major depressive disorder, recurrent, severe, with psychotic features Alcohol use disorder severe cocaine use disorder history of Methamphetamine use disorder Nicotine dependence Plan: -Patient continues to meet criteria for inpatient psychiatric admission for symptom stabilization and safety. Patient has signed adult voluntary form and medication consent and was placed in patient's chart. -Medications: Invega 6 mg by mouth at bedtime for mood stabilization/psychosis Effexor XR 150 mg by mouth daily for depression/anxiety -When necessary Zyprexa and Vistaril for agitation/aggression. -NRT - nicotine patch -SW on board for discharge planning. Encouraged the patient to participate in milieu.
[2021-12-06] MEDS: hydrOXYzine pamoate 25 MG CAP PO PRN (20:16)
[2021-12-06] MEDS: PALIPERIDONE 3 MG TAB.ER.24 PO SCH (20:16)
[2021-12-07] MEDS: NICOTINE 14MG/24HR PATCH TRANSDERM SCH (09:18)
[2021-12-07] MEDS: ASPIRIN 81 MG PO SCH (09:19)
[2021-12-07] MEDS: ATORVASTATIN 40 MG TAB PO SCH (09:19)
[2021-12-07] MEDS: MULTIVITAMINS, THERA 1 EACH TAB PO SCH (09:19)
[2021-12-07] MEDS: VENLAFAXINE HCL ER 75 MG CAP PO SCH (09:19)
--- NOTE | 2021-12-07 12:34 | P.PN ---
Subjective Progress Note Date: 12/07/21 Principal diagnosis: Assessment Major depressive disorder, recurrent, severe, with psychotic features Alcohol use disorder severe cocaine use disorder history of Methamphetamine use disorder Nicotine dependence Patient the patient came readily and agreeable to speak with investigative writer in the office. The patient was focused on whether he would be discharged on Thursday and expresses significant improvement since restarting his med regimen. He reports that he is excited to go to outpatient rehab on the recommendation of his neurology physician assistant. He is currently denying any suicidal or homicidal ideation, intention, and/or plan. He is not reporting any auditory or visual hallucinations today. He states that he last expressed auditory hallucinations 2 nights ago. He has been adherent with his medication and is not endorsing any significant side effects at this time. He said that he only slept 2 hours last night. Mental Status Exam: General Appearance: Patient appears to be stated age is alert, directable, and cooperative. Behavior: Patient is calmly seated without any agitated behavior. Speech: Patient's speech is fluent and nonpressured. Mood/Affect: Mood is improving mildly, affect is congruent and constricted however he had a ready smile and was able to understand humor he followed the conversation and added to it in a logical way. Suicidality/Homicidality: Patient denies having any suicidal or homicidal ideation intent or plan. Perceptions: Patient denies any visual hallucinations and denies any auditory hallucinations Though content/process: There is no evidence of any delusional thought content and thought process is linear and goal-directed. Memory and concentration: AOX3, grossly intact for the purposes of this session Judgment and insight: Improving mildly Plan: -Patient continues to meet criteria for inpatient psychiatric admission for symptom stabilization and safety. Patient has signed adult voluntary form and medication consent and was placed in patient's chart. -Medications: Invega 6 mg by mouth at bedtime for mood stabilization/psychosis Effexor XR 150 mg by mouth daily for depression/anxiety I think the Effexor might be making a little hard to get to sleep -When necessary Zyprexa and Vistaril for agitation/aggression. I told him to try 5 of Zyprexa tonight and if he sleeps well we may give him that on a regular basis rather than just when necessary -NRT - nicotine patch -SW on board for discharge planning. Encouraged the patient to participate in milieu. When she says he has been doing Objective - Vital Signs Vital signs: Vital Signs Temp 97.8 F 12/06/21 05:05 Pulse 79 12/06/21 05:05 Resp 17 12/06/21 05:05 BP 129/91 12/06/21 05:05 Pulse Ox 96 12/06/21 05:05 FiO2
[2021-12-07] MEDS: hydrOXYzine pamoate 25 MG CAP PO PRN (20:36)
[2021-12-07] MEDS: PALIPERIDONE 3 MG TAB.ER.24 PO SCH (20:36)
[2021-12-08] MEDS: ASPIRIN 81 MG PO SCH (08:33)
[2021-12-08] MEDS: NICOTINE 14MG/24HR PATCH TRANSDERM SCH (08:33)
[2021-12-08] MEDS: VENLAFAXINE HCL ER 75 MG CAP PO SCH (08:33)
[2021-12-08] MEDS: ATORVASTATIN 40 MG TAB PO SCH (08:33)
[2021-12-08] MEDS: MULTIVITAMINS, THERA 1 EACH TAB PO SCH (08:33)
--- NOTE | 2021-12-08 13:30 | P.PN ---
Subjective Progress Note Date: 12/08/21 Principal diagnosis: Assessment Major depressive disorder, recurrent, severe, with psychotic features Alcohol use disorder severe cocaine use disorder history of Methamphetamine use disorder Nicotine dependence Patient the patient came readily and agreeable to speak with keno writer in the office. Subjective: The patient was focused on whether he would be discharged on Thursday and expresses significant improvement since restarting his med regimen. He says that he got away from doing certain things like going to [employer] and reading his Bible and out with friends and exercising and taking his medicines. He says is going to do all that and that should help. He reports that he is excited to go to outpatient rehab on the recommendation of his laserist. He is currently denying any suicidal or homicidal ideation, intention, and/or plan. He is not reporting any auditory or visual hallucinations today. He states that he last expressed auditory hallucinations 2 nights ago. He has been adherent with his medication and is not endorsing any significant side effects at this time. He said that he only slept 2 hours last night. Objective: Mental Status Exam: Patient was cooperative good eye contact General Appearance: Patient appears to be stated age is alert, directable, and cooperative. Behavior: Patient is calmly seated without any agitated behavior. Speech: Patient's speech is fluent and nonpressured. Mood/Affect: Mood is improving mildly, affect is constricted however he had a ready smile and was able to understand humor he followed the conversation and added to it in a logical way. Suicidality/Homicidality: Patient denies having any suicidal or homicidal ideation intent or plan. Perceptions: Patient denies any visual hallucinations and denies any auditory hallucinations Though content/process: There is no evidence of any delusional thought content and thought process is linear and goal-directed. Memory and concentration: AOX3, grossly intact for the purposes of this session Judgment and insight: Improving mildly Diagnoses: Major depressive disorder, recurrent, severe, with psychotic features Alcohol use disorder severe cocaine use disorder history of Methamphetamine use disorder Nicotine dependence Plan: -Patient continues to meet criteria for inpatient psychiatric admission for symptom stabilization and safety. Patient has signed adult voluntary form and medication consent and was placed in patient's chart. -Medications: Invega 6 mg by mouth at bedtime for mood stabilization/psychosis Effexor XR 150 mg by mouth daily for depression/anxiety I think the Effexor might be making a little hard to get to sleep -When necessary Zyprexa and Vistaril for agitation/aggression. I told him to try 5 of Zyprexa tonight and if he sleeps well we may give him that on a regular basis rather than just when necessary -NRT - nicotine patch -SW on board for discharge planning. Encouraged the patient to participate in milieu. When she says he has been doing Objective - Vital Signs Vital signs: Vital Signs Temp 97.5 F L 12/08/21 07:10 Pulse 75 12/08/21 07:10 Resp 16 12/08/21 07:10 BP 105/67 12/08/21 07:10 Pulse Ox 96 12/06/21 05:05 FiO2
[2021-12-08] MEDS: PALIPERIDONE 3 MG TAB.ER.24 PO SCH (20:29)
[2021-12-08] MEDS: hydrOXYzine pamoate 25 MG CAP PO PRN (20:30)
[2021-12-09] MEDS: VENLAFAXINE HCL ER 75 MG CAP PO SCH (08:02)
[2021-12-09] MEDS: ATORVASTATIN 40 MG TAB PO SCH (08:02)
[2021-12-09] MEDS: ASPIRIN 81 MG PO SCH (08:03)
[2021-12-09] MEDS: MULTIVITAMINS, THERA 1 EACH TAB PO SCH (08:03)
[2021-12-09] MEDS: NICOTINE 14MG/24HR PATCH TRANSDERM SCH (09:31)
[2021-12-09] MEDS ORDERED: PALIPERIDONE IM 234 MG/1.5 ML SYG IM STA (10:20)
--- NOTE | 2021-12-09 11:38 | P.PN ---
Progress Note - Text Progress Note Date: 12/09/21 Interval History: Patient was seen wandering the hallways and was directable and agreeable to speak with feature writer in the office. Currently, the patient specified that he has been experiencing some visual hallucinations as well as some auditory hallucinations. He reports that he has had some homicidal thoughts towards his brother however denies any intention or plan. He has been adherent with his medication is not reporting any significant side effects. He does report that he has had an improvement in his appetite, sleep, and hygiene. He expresses no side effects to his medications and is agreeable to transitioning to long-acting Invega Sustenna again. The patient is anticipated for discharge tomorrow. Mental Status Exam: General Appearance: Patient appears to be stated age is alert, directable, and cooperative. Behavior: Patient is calmly seated without any agitated behavior. Speech: Patient's speech is fluent and nonpressured. Mood/Affect: Mood is improving mildly, affect is congruent and constricted. Suicidality/Homicidality: Patient denies having any suicidal, however reports homicidal ideation but no intention or plan. Though content/process: There is no evidence of any delusional thought content and thought process is linear and goal-directed. Memory and concentration: AOX3, grossly intact for the purposes of this session Judgment and insight: Improving mildly Vital Signs Temp 97.8 F 12/09/21 05:59 Pulse 107 H 12/09/21 05:59 Resp 16 12/09/21 05:59 BP 108/68 12/09/21 05:59 Pulse Ox 97 12/09/21 05:59 FiO2 Intake & Output 12/08/21 12/09/21 12/09/21 18:59 06:59 18:59 Weight 67.5 kg Assessment Major depressive disorder, recurrent, severe, with psychotic features Alcohol use disorder severe cocaine use disorder history of Methamphetamine use disorder Nicotine dependence Plan: -Patient continues to meet criteria for inpatient psychiatric admission for symptom stabilization and safety. Patient has signed adult voluntary form and medication consent and was placed in patient's chart. Anticipate discharge tomorrow. -Medications: Administer Invega Sustenna 234 mg IM today for mood stabilization/psychosis Effexor XR 150 mg by mouth daily for depression/anxiety -When necessary Zyprexa and Vistaril for agitation/aggression. -NRT - nicotine patch -SW on board for discharge planning. Encouraged the patient to participate in milieu.
[2021-12-09] MEDS: hydrOXYzine pamoate 25 MG CAP PO PRN (20:37)
[2021-12-09] MEDS ORDERED: PALIPERIDONE 3 MG TAB.ER.24 PO SCH (21:00)
[2021-12-09] MEDS ORDERED: NICOTINE GUM (POLACRILEX) 2 MG GUM BUCCAL PRN (21:18)
[2021-12-10 06:01] VITALS: BP 115/62; PULSE 74; RESP 18; TEMP 98.1
[2021-12-10] MEDS: VENLAFAXINE HCL ER 75 MG CAP PO SCH (08:07)
[2021-12-10] MEDS: ASPIRIN 81 MG PO SCH (08:07)
[2021-12-10] MEDS: ATORVASTATIN 40 MG TAB PO SCH (08:07)
[2021-12-10] MEDS: NICOTINE 14MG/24HR PATCH TRANSDERM SCH (08:07)
[2021-12-10] MEDS: MULTIVITAMINS, THERA 1 EACH TAB PO SCH (08:07)
--- NOTE | 2021-12-10 11:39 | P.DS ---
Providers Date of admission: 12/04/21 18:31 Expected date of discharge: 12/10/21 Attending physician: Pelon Orr MD Consults: 12/04/21 21:17 Consult Physician Routine Consulting Provider: Angie Houser Consult Reason/Comments: medical H&P Do you want consulting provider notified?: Yes Primary care physician: Stated None - Discharge Diagnosis(es) (1) Major depressive disorder with psychotic features Current Visit: Yes Status: Acute Priority: High (2) Alcohol use disorder Current Visit: Yes Status: Chronic Priority: Medium (3) Cocaine use disorder Current Visit: Yes Status: Chronic Priority: Medium (4) Nicotine dependence Current Visit: Yes Status: Chronic Priority: Medium Hospital Course: Admission HPI: Patient is a , unemployed, 61-year-old -I[place] male presents to our hospital from [facility] for suicidal ideation and hallucinations in the context of substance abuse. Patient presented to the hospital on 12/04/2021, transferred from [facility] for psychiatric admission. The patient reported suicidal ideation with a plan to overdose on his medications. He admitted to the EPS nurse that he has been using cocaine 3-4 times per week and has been drinking heavily. The patient was admitted voluntarily to the psychiatric unit. Upon evaluation of this provider, the patient continues to report low mood and suicidal ideation. Reports that he has had plans to overdose. He states that he's been feeling hopeless, helpless, and has had decreased motivation. He admits that he has not in taking his medications regularly. He does admit to using cocaine 3-4 times last week as well as drinking heavily in between. He is currently endorsing auditory hallucinations that are commanding him to hurt himself. He is otherwise denying any visual hallucinations, paranoia, or other delusions. The patient was last admitted onto our psychiatric unit in September 2021 and was discharged on a regimen of Effexor, Invega, and trazodone. The patient expressed that he is interested in going to inpatient substance abuse rehabilitation upon discharge. Patient states that he has a previous diagnosis of major depressive disorder, call use disorder, cocaine use disorder, nicotine dependence. Patient reports that he has been nonadherent with his medications and has previous trials of Seroquel, Invega, Effexor, and trazodone. Patient was last hospitalized on our psychiatric unit in September 2021. He has had numerous psychiatric admissions, including 10 over the past 5 years. Patient reports no consistent outpatient follow-up. Patient reports prior attempts at suicide. Hospital course: Upon admission to the unit patient was initially presenting as depressed, suicidal, and endorsing auditory hallucinations. Patient was however directable and agreeable to commence treatment. Patient got along well with other patients on the unit and followed unit protocol. Patient was compliant with the medica tions and denied any side effects throughout hospital course. Patient was started on his home medications of Invega and Effexor for management of psychosis, depression, and anxiety. The patient did admit that he has relapsed into crack cocaine use and that has been continuing to his symptoms. Over the course of the hospitalization, the patient's medications were gradually titrated and the patient displayed significant improvement progress was target symptoms of psychosis and depression. The patient was eventually transition back to Invega Sustenna. He tolerated his medications well. He was also seen by the medical team for history and physical examination. He participated both in individual and milieu therapies. On the day of discharge, patient is not reporting any suicidal or homicidal ideation, intention, and/or plan. He is denying any auditory or visual hallucinations. He reports no paranoia or other delusions. Patient has been adherent with his medication is not reporting any significant side effects. The patient does have a significant history of polysubstance abuse and was consequently great length on abstaining from all substances including alcohol, and marijuana. The patient will be going to inpatient substance abuse rehabilitation in the near future. The patient was counseled at length the importance of medication adherence and appropriate outpatient follow-up. Prior to discharge, family meeting will be arranged by social services manager to answer questions and ensure safety. Mental status exam: General Appearance: Patient appears to be stated age is alert, pleasant, and cooperative. Patient is in no acute distress and has fair hygiene and grooming Behavior: Patient is calmly seated without any agitated behavior. Speech: Patient's speech is fluent and nonpressured. Mood/Affect: Patient reports their mood is "much better", affect is congruent and euthymic. Suicidality/Homicidality: Patient denies having any suicidal or homicidal ideation intent or plan. Perceptions: Patient denies any auditory or visual hallucinations. Though content/process: There is no evidence of any delusional thought content and thought process is linear and goal-directed. Patient is future oriented Memory and concentration: AOX3, grossly intact for the purposes of this session. Can spell "WORLD" backwards correctly. Judgment and insight: Improved with guarded prognosis Impression: Major depressive disorder, recurrent, severe, with psychotic features Alcohol use disorder Cocaine use disorder Nicotine dependence Plan: -Continue with discharge today as patient has improved and stabilized psychiatrically and is not currently an imminent threat to himself and/or others. Patient will remain at chronically elevated risk due to his polysubstance abuse. -Continue medications: Invega Sustenna 234 mg IM every month. Last dose administered on 12/09/2021. Next dose due on 01/06/2022. Effexor XR 150 mg by mouth daily for depression/anxiety Aspirin, Lipitor, and multivitamin -Patient was counseled on the need for medication compliance and appropriate follow-up at mental health and also primary care for medical issues. Patient verbalized understanding and agreed. -Social work to arrange for and conduct family meeting to ensure safety upon discharge and answer any questions/concerns. Social work also to arrange for patients follow up appointments with [facility] for psychiatric and substance abuse care along with follow up with primary care provider. -Patient counseled on abstaining from recreational drugs and marijuana and alcohol. Was informed/educated on the adverse effects on their physical and mental health. Patient verbally agreed and understood. Patient will be going to [facility]. -Patient was instructed to return to the hospital or seek immediate medical care if their psychiatric or medical symptoms do worsen or reoccur. -Psychoeducation and supportive therapy provided to patient. Risks and benefits of pharmacological treatment versus the risks and benefits of nontreatment weight and discussed. Informed consent discussion held. Common side effects of psychotropics discussed such as, but not limited to headache, GI disturbance, s exual dysfunction, movement disorders, sedation, and orthostatic hypotension. Life threatening and blackbox warnings of prescribed medications also discussed. Potential risks of operating a vehicle or heavy machinery discussed with patient at length. Advised on importance of compliance and a reliable and responsible manner. Patient advised to review FDA consumer labeling of all medications prior to taking. Patient verbalized understanding of potential risks, and agrees with current treatment plan. Patient advised to medically contact physician/emergency personnel if any acute changes in condition occur. Vital Signs Temp 98.1 F 12/10/21 05:45 Pulse 74 12/10/21 05:45 Resp 18 12/10/21 05:45 BP 115/62 12/10/21 05:45 Pulse Ox 98 12/10/21 05:45 FiO2 Allergies Allergy/AdvReac Type Severity Reaction Status Date / Time blueberry Allergy Rash/Hives Verified 12/05/21 00:39 nitroglycerin Allergy Swelling Verified 12/05/21 00:39 Patient Condition at Discharge: Stable Plan - Discharge Summary New Discharge Prescriptions: New Paliperidone IM [Invega Sustenna] 234 mg IM QMONTHLY #1 each Aspirin 81 mg PO DAILY 30 Days tab Venlafaxine HCl ER [Effexor XR] 150 mg PO DAILY 30 Days cap Atorvastatin [Lipitor] 40 mg PO DAILY 30 Days tab Multivitamins, Thera [Multivitamin (formulary)] 1 each PO DAILY 30 Days tab Discontinued Aspirin 81 mg PO DAILY 30 Days tab Nicotine 14Mg/24Hr Patch [Habitrol] 1 patch TRANSDERM DAILY 14 Days patch Paliperidone [Invega] 6 mg PO HS 30 Days tab Aspirin 81 mg PO DAILY 30 Days traZODone HCL [Desyrel] 100 mg PO HS 30 Days tab Venlafaxine HCl ER [Effexor XR] 150 mg PO DAILY 30 Days cap Multivitamins, Thera [Multivitamin (formulary)] 1 each PO DAILY 30 Days tab Atorvastatin [Lipitor] 40 mg PO DAILY 30 Days tablet Discharge Medication List Aspirin 81 mg PO DAILY 30 Days tab 12/10/21 [Rx] Atorvastatin [Lipitor] 40 mg PO DAILY 30 Days tab 12/10/21 [Rx] Multivitamins, Thera [Multivitamin (formulary)] 1 each PO DAILY 30 Days tab 12/10/21 [Rx] Paliperidone IM [Invega Sustenna] 234 mg IM QMONTHLY #1 each 12/10/21 [Rx] Venlafaxine HCl ER [Effexor XR] 150 mg PO DAILY 30 Days cap 12/10/21 [Rx] Follow up Appointment(s)/Referral(s): [facility] Salced[facility] [[facility] Patient Instructions/Handouts: Abuse of Alcohol (DC), Psychotic Disorder (DC) Activity/Diet/Wound Care/Special Instructions: Avoid the use of street drugs and alcohol. Take all prescriptions as pres cribed. When you are in need of refills on your medications, please contact your medical provider and/or outpatient psychiatrist to have this done. Please go to scheduled outpatient appointment for aftercare treatment. If symptoms return or become worse, call the crisis line at and/or go to the nearest emergency room for evaluation. Discharge Disposition: HOME SELF-CARE
== END 2021-12-10 11:45 | disposition home or self-care (01) | DRG 885 ==
LOC: 3MHU 18:31
PROVIDERS: ADMIT Psychiatry & Neurology Psychiatry; ATTEND Psychiatry & Neurology Psychiatry
DX: F33.3 Major depressive disorder, recurrent, severe with psychotic symptoms (principal); R45.851 Suicidal ideations; F14.90 Cocaine use, unspecified, uncomplicated; F17.200 Nicotine dependence, unspecified, uncomplicated; F20.9 Schizophrenia, unspecified; F43.10 Post-traumatic stress disorder, unspecified; F10.20 Alcohol dependence, uncomplicated; E78.5 Hyperlipidemia, unspecified; I25.10 Atherosclerotic heart disease of native coronary artery without angina pectoris; I25.2 Old myocardial infarction; Z79.82 Long term (current) use of aspirin; Z79.899 Other long term (current) drug therapy; Z95.5 Presence of coronary angioplasty implant and graft
CPT/HCPCS: 93005

== ENCOUNTER 2022-01-30 22:04 | Inpatient (IN) | payer MEDICARE, MEDICAID ==
--- NOTE | 2022-01-30 22:16 | ED ---
Chest Pain HPI - General Chief Complaint: Chest Pain Stated Complaint: chest pain Time Seen by Provider: 01/30/22 22:16 Source: patient, EMS, RN notes reviewed, old records reviewed Mode of arrival: EMS Limitations: no limitations - History of Present Illness Initial Comments: This is a 61-year-old male to the emergency department for evaluation presents today for evaluation of multiple complaints chest pain suicidal thoughts questions and pain control. History of chest pain history of heart disease history of stent. Patient also has history of suicidal thoughts or suicidal and findings and psychiatric illness. Patient also has long history of polysubstance abuse MD Complaint: chest pain, other (Suicidal thoughts) -: hour(s) Onset: during rest, during exertion Pain Location: substernal Pain Radiation: RUE Severity: mild Severity scale (1-10): 2 Quality: tightness, heaviness Consistency: intermittent, now resolved Improves With: nothing Worsens With: nothing Anginal Symptoms: other Other Symptoms: palpitations Treatments Prior to Arrival: none - Related Data Previous Rx's Medication Instructions Recorded Aspirin 81 mg PO DAILY 30 Days tab 12/10/21 Atorvastatin [Lipitor] 40 mg PO DAILY 30 Days tab 12/10/21 Multivitamins, Thera [Multivitamin 1 each PO DAILY 30 Days tab 12/10/21 (formulary)] Paliperidone IM [Invega Sustenna] 234 mg IM QMONTHLY #1 each 12/10/21 Venlafaxine HCl ER [Effexor XR] 150 mg PO DAILY 30 Days cap 12/10/21 Allergies Allergy/AdvReac Type Severity Reaction Status Date / Time blueberry Allergy Rash/Hives Verified 12/05/21 00:39 nitroglycerin Allergy Swelling Verified 12/05/21 00:39 Review of Systems ROS Statement: Those systems with pertinent positive or pertinent negative responses have been documented in the HPI. ROS Other: All systems not noted in ROS Statement are negative. EKG Findings - EKG Comments: EKG Findings:: EKG interpretation a sinus 73 CA 136 QRS 89 QTc 448 Past Medical History Past Medical History: Coronary Artery Disease (CAD), Chest Pain / Angina, Hyperlipidemia, Myocardial Infarction ([place]), Osteoarthritis (OA) Additional Past Medical History / Comment(s): arthritis in back and bilateral knees,hx hiatal hernia Last Myocardial Infarction Date:: 2004 History of Any Multi-Drug Resistant Organisms: None Reported Past Surgical History: Bowel Resection, Heart Catheterization With Stent Additional Past Surgical History / Comment(s): Cardiac stents x 3, bowel surgery for pinpoint hole in bowel, L knee arthroscopy, colonoscopy/benign polypectomies,hiatal hernia repair Past Anesthesia/Blood Transfusion Reactions: No Reported Reaction Date of Last Stent Placement:: 2013 Past Psychological History: Bipolar, Depression, PTSD, Schizophrenia Smoking Status: Current every day smoker Past Alcohol Use History: Occasional Past Drug Use History: Cocaine, IV Drug Use, Marijuana, Opiates, Prescription Drug Abuse - Past Family History Father Family Medical History: Respiratory Disorder Additional Family Medical History / Comment(s): Father at age 64 from Black lung disease Mother Family Medical History: Hypertension, Myocardial Infarction ([place]) Additional Family Medical History / Comment(s): Mother of an [place] at 78yrs old. Brother(s) Family Medical History: Myocardial Infarction ([place]) Additional Family Medical History / Comment(s): Patient has 10 brothers and 2 from myocardial infarction and had history of alcoholism. Sister(s) Family Medical History: Hypertension, Myocardial Infarction ([place]) Additional Family Medical History / Comment(s): He has 7 sisters that are alive with no major medical problems. He has one son that has and one daughter that is alive and okay. General Exam Limitations: no limitations General appearance: alert, in no apparent distress Head exam: Present: atraumatic, normocephalic, normal inspection Eye exam: Present: normal appearance, PERRL, EOMI. Absent: scleral icterus, conjunctival injection, periorbital swelling ENT exam: Present: normal exam, mucous membranes moist Neck exam: Present: normal inspection. Absent: tenderness, meningismus, lymphadenopathy Respiratory exam: Present: normal lung sounds bilaterally. Absent: respiratory distress, wheezes, rales, rhonchi, stridor Cardiovascular Exam: Present: regular rate, normal rhythm, normal heart sounds. Absent: systolic murmur, diastolic murmur, rubs, gallop, clicks GI/Abdominal exam: Present: soft, normal bowel sounds. Absent: distended, tenderness, guarding, rebound, rigid Extremities exam: Present: normal inspection, full ROM, normal capillary refill. Absent: tenderness, pedal edema, joint swelling, calf tenderness Back exam: Present: normal inspection Neurological exam: Present: alert, oriented X3, CN II-XII intact Psychiatric exam: Present: normal affect, normal mood Skin exam: Present: warm, dry, intact, normal color. Absent: rash Course Vital Signs 01/30/22 01/30/22 01/31/22 22:10 23:34 00:46 Temperature 98.0 F Pulse Rate 76 75 83 Respiratory 18 18 18 Rate Blood Pressure 139/95 145/101 142/85 O2 Sat by Pulse 95 95 99 Oximetry - Reevaluation(s) Reevaluation #1: 01/31/22 01:11 Medical record is reviewed Reevaluation #2: 01/31/22 01:11 Patient chest pain is improved remains chest pain-free Reevaluation #3: 01/31/22 01:12 Patient informed of results and questions answered 01/31/22 01:12 Patient medically clear for psychiatric evaluation Reevaluation #4: 01/30/22 22:56 Differential Chest Pain: Stable Angina, Unstable Angina, STEMI, NSTEMI Aortic Dissection, Pneumothorax, Musculoskeletal, Esophageal Spasm GERD, Cholecystitis, Pancreatitis, Zoster, this is not meant to be an all-inclusive list. Reevaluation #5: 01/30/22 22:56 Was pt. sent in by a medical professional or institution? @ -None Did you speak to anyone other than the patient for history? @ -None Did you review nursing and triage notes? @ -Gas and agree with Were old charts reviewed? @ -Just prior admissions including chest pain and mental health, as well as old EKGs Differential Diagnosis? @ -C prior EKG interpreted by me (3pts min.)? @ -C prior X-rays interpreted by me (1pt min.)? @ -C prior CT interpreted by me (1pt min.)? @ -[none] U/S interpreted by me (1pt. min.)? @ -[none] What testing was considered but not performed? (CT, X-rays, U/S, labs)? Why? @ Chest pain is atypical in nature no computed tomography scan What meds were considered but not given? Why? @ -[none] Did you discuss the management of the patient with other professionals? @ -None Did you reconcile home meds? @ -[none] Was smoking cessation discussed for >3mins.? @ -[none] Was critical care preformed (if so, how long)? @ -[none] Were there social determinants of health that impacted care today? How? (Homelessness, low income, unemployed, alcoholism, drug addiction, transportation, low edu. Level, literacy, decrease access to med. care, nursing home, rehab)? @ -Mental health Was there de-escalation of care discussed even if they declined? (Discuss DNR or withdrawal of care, Hospice)? @ -No What co-morbidities impacted this encounter? (DM, HTN, Smoking, COPD, CAD, Cancer, CVA, Hep., AIDS, mental health diagnosis, sleep apnea, morbid obesity)? @ -[DM, HTN, Smoking, COPD, CAD, Cancer, CVA, Hep., AIDS, mental health diagnosis, sleep apnea, morbid obesity?] Was patient admitted / discharged? @ -Cleared as far as cardiac etiology goes, given psychiatric evaluation Undiagnosed new problem with uncertain prognosis? @ -[none] Drug Therapy requiring intensive monitoring for toxicity (Heparin, Nitro, Insulin, Cardizem)? @ -[none] Were any procedures done? @ -[none] Diagnosis/symptom? @ -[default] Acute, or Chronic, or Acute on Chronic? @ -[default] Uncomplicated (without systemic symptoms) or Complicated (systemic symptoms)? @ -[default] Side effects of treatment? @ -[none] Exacerbation, Progression, or Severe Exacerbation] @ -[no] Poses a threat to life or bodily function? @ -[no] Chest Pain MDM - MDM 61 male seen evaluation psychiatry, patient be admitted for psychiatric evaluation and treatment Disposition Clinical Impression: Major depressive disorder with psychotic features, Acute anxiety, Suicidal ideation Disposition: TRANSFER TO PSYCH HOSP/UNIT Condition: Fair Is patient prescribed a controlled substance at d/c from ED?: No Referrals: None,Stated [REFERRING] - 1-2 days
--- NOTE | 2022-01-30 22:50 | XR ---
EXAMINATION TYPE: XR chest 2V DATE OF EXAM: 01/30/2022 10:46 PM COMPARISON: Chest radiographs from 11/09/2021 TECHNIQUE: XR chest 2V Frontal and lateral views of the chest. CLINICAL INDICATION:Male, 61 years old with history of Chest Pain; FINDINGS: Lungs/Pleura: There is no evidence of pleural effusion, focal consolidation, or pneumothorax. Pulmonary vascularity: Unremarkable. Heart/mediastinum: Cardiomediastinal silhouette is unremarkable. Musculoskeletal: No acute osseous pathology. IMPRESSION: No acute cardiopulmonary disease/process.
[2022-01-30 22:52] LABS: Basophils % (A) 1 %; Eosinophils % (A) 1 %; HCT 38.8 % (39.0-53.0); HGB 12.7 gm/dL (13.0-17.5); Lymphocytes # (A) 1.1 k/uL (1.0-4.8); Lymphocytes % (A) 21 %; MCH 32.7 pg (25.0-35.0); MCHC 32.8 g/dL (31.0-37.0); MCV 99.8 fL (80.0-100.0); Mean Platelet Volume 9.4; Monocytes # (A) 0.3 k/uL (0-1.0); Monocytes % (A) 5 %; Neutrophils # (A) 3.7 k/uL (1.3-7.7); Neutrophils % (A) 69 %; Platelet Count 145 k/uL (150-450); RBC 3.88 m/uL (4.30-5.90); RDW 14.1 % (11.5-15.5); WBC 5.3 k/uL (3.8-10.6)
[2022-01-30 23:00] LABS: Partial Thromboplastin Time 23.6 sec (22.0-30.0); Prothrombin Time 10.2 sec (9.0-12.0)
[2022-01-30 23:14] LABS: ALT 19 U/L (4-49); AST 31 U/L (17-59); African American GFR (CKD) >90 (>60 ml/min/1.73 sqM); Albumin 4.7 g/dL (3.5-5.0); Alkaline Phosphatase 50 U/L (38-126); Anion Gap 10 mmol/L; Blood Urea Nitrogen 14 mg/dL (9-20); Calcium 9.5 mg/dL (8.4-10.2); Carbon Dioxide 22 mmol/L (22-30); Chloride 109 mmol/L (98-107); Glucose 86 mg/dL (74-99); Lipase 71 U/L (23-300); Magnesium 2.1 mg/dL (1.6-2.3); Non-African American GFR(CKD) >90 (>60 ml/min/1.73 sqM); Sodium 141 mmol/L (137-145); Total Bilirubin 0.4 mg/dL (0.2-1.3); Total Protein 7.9 g/dL (6.3-8.2)
[2022-01-30] MEDS ORDERED: MORPHINE SULFATE 2 MG/ML SYRINGE IVP STA (23:14)
[2022-01-30] MEDS ORDERED: LORazepam 2 MG/ML INJ IV STA (23:14)
[2022-01-30 23:59] LABS: Alcohol 103 mg/dL
[2022-01-31] MEDS ORDERED: ACETAMINOPHEN TAB 325 MG TAB PO PRN (03:56)
[2022-01-31] MEDS ORDERED: MAG HYDROX/AL HYDROX/SIMETH 30 ML CUP PO PRN (03:56)
[2022-01-31] MEDS ORDERED: MAGNESIUM HYDROXIDE 2,400 MG/10 ML CUP PO PRN (03:56)
[2022-01-31] MEDS ORDERED: HALOPERIDOL LACTATE 5 MG/ML 1 ML VIAL IM PRN (03:58)
[2022-01-31 05:19] VITALS: TEMP 97.8
--- NOTE | 2022-01-31 11:37 | P.HP ---
Psychiatric H&P - . H&P Date: 01/31/22 History & Physical: Allergies Allergy/AdvReac Type Severity Reaction Status Date / Time blueberry Allergy Rash/Hives Verified 01/31/22 04:55 nitroglycerin Allergy Swelling Verified 01/31/22 04:55 Vital Signs Temp 97.8 F 01/31/22 04:31 Pulse 88 01/31/22 04:31 Resp 20 01/31/22 04:31 BP 132/92 01/31/22 04:31 Pulse Ox 98 01/31/22 04:31 FiO2 Intake & Output 01/30/22 01/31/22 01/31/22 18:59 06:59 18:59 Weight 68.1 kg Laboratory Last Values WBC 5.3 k/uL (3.8-10.6) 01/30/22 22:40 RBC 3.88 m/uL (4.30-5.90) L 01/30/22 22:40 Hgb 12.7 gm/dL (13.0-17.5) L 01/30/22 22:40 Hct 38.8 % (39.0-53.0) L 01/30/22 22:40 MCV 99.8 fL (80.0-100.0) 01/30/22 22:40 MCH 32.7 pg (25.0-35.0) 01/30/22 22:40 MCHC 32.8 g/dL (31.0-37.0) 01/30/22 22:40 RDW 14.1 % (11.5-15.5) 01/30/22 22:40 Plt Count 145 k/uL (150-450) L 01/30/22 22:40 MPV 9.4 01/30/22 22:40 Neutrophils % 69 % 01/30/22 22:40 Lymphocytes % 21 % 01/30/22 22:40 Monocytes % 5 % 01/30/22 22:40 Eosinophils % 1 % 01/30/22 22:40 Basophils % 1 % 01/30/22 22:40 Neutrophils # 3.7 k/uL (1.3-7.7) 01/30/22 22:40 Lymphocytes # 1.1 k/uL (1.0-4.8) 01/30/22 22:40 Monocytes # 0.3 k/uL (0-1.0) 01/30/22 22:40 Eosinophils # 0.0 k/uL (0-0.7) 01/30/22 22:40 Basophils # 0.0 k/uL (0-0.2) 01/30/22 22:40 PT 10.2 sec (9.0-12.0) 01/30/22 22:40 INR 1.0 (<1.2) 01/30/22 22:40 APTT 23.6 sec (22.0-30.0) 01/30/22 22:40 Sodium 141 mmol/L (137-145) 01/30/22 22:40 Potassium 4.0 mmol/L (3.5-5.1) 01/30/22 22:40 Chloride 109 mmol/L (98-107) H 01/30/22 22:40 Carbon Dioxide 22 mmol/L (22-30) 01/30/22 22:40 Anion Gap 10 mmol/L 01/30/22 22:40 BUN 14 mg/dL (9-20) 01/30/22 22:40 Creatinine 0.69 mg/dL (0.66-1.25) 01/30/22 22:40 Est GFR (CKD-EPI)AfAm >90 (>60 ml/min/1.73 sqM) 01/30/22 22:40 Est GFR (CKD-EPI)NonAf >90 (>60 ml/min/1.73 sqM) 01/30/22 22:40 Glucose 86 mg/dL (74-99) 01/30/22 22:40 Calcium 9.5 mg/dL (8.4-10.2) 01/30/22 22:40 Magnesium 2.1 mg/dL (1.6-2.3) 01/30/22 22:40 Total Bilirubin 0.4 mg/dL (0.2-1.3) 01/30/22 22:40 AST 31 U/L (17-59) 01/30/22 22:40 ALT 19 U/L (4-49) 01/30/22 22:40 Alkaline Phosphatase 50 U/L (38-126) 01/30/22 22:40 Troponin I <0.012 ng/mL (0.000-0.034) 01/30/22 22:40 NT-Pro-B Natriuret Pep 36 pg/mL 01/30/22 22:40 Total Protein 7.9 g/dL (6.3-8.2) 01/30/22 22:40 Albumin 4.7 g/dL (3.5-5.0) 01/30/22 22:40 Lipase 71 U/L (23-300) 01/30/22 22:40 Serum Alcohol 103 mg/dL 01/30/22 22:40 Coronavirus (PCR) Not Detected (Not Detectd) 01/31/22 01:54 01/31/22 11:36 IDENTIFYING DATA: Patient is a 61-year-old -Turk[place] male with significant history of cocaine abuse and alcohol abuse who presents to the hospital for chest pain and increasing suicidal ideation in the context of substance abuse and medication nonadherence. HPI: Patient presented to the hospital on 01/31/2022, endorsing suicidal ideation. The patient reported to the EPS nurse "I wish I was , having hallucinations that are telling me to harm someone." He reported no intention or plan or any particular person. He did however report that he used cocaine 3 days prior to this admission has been drinking 3-6 packs of beer every other week. While in the psychiatric unit and was subsequently admitted. Upon admission on our psychiatric unit, the patient reports that he continues to experience auditory hallucinations that are commanding him to kill himself or hurt others. He reports that he cannot stop thinking about wanting to be . He admits to not eating or taking care of himself at home. In regards to psychiatric medications, the patient does report that he has been nonadherent with them. He is not able to identify any particular stressors aside from his worsening symptoms. The patient was last hospitalized on our psychiatric unit in September 2021. At that time, the patient was presenting with the same symptoms and was discharged with a plan to go to inpatient substance abuse rehabilitation at [facility]. We are uncertain as to his last dose of Invega Sustenna. He was due for his next injection of Invega Sustenna on 01/06/2022. The patient signed himself voluntarily on to the psychiatric unit. PAST PSYCHIATRIC HISTORY: The patient has previous diagnoses of major depressive disorder, alcohol use disorder, cocaine use disorder, nicotine dependence. His last discharge on Invega Sustenna and Effexor. He was last admitted to our psychiatric unit in November 2021. He has had multiple inpatient psychiatric admissions. He is reportedly poor at following up in the outpatient setting. He does report prior attempts at suicide. PMH: Past Medical History: Coronary Artery Disease (CAD), Chest Pain / Angina, Hyperlipidemia, Myocardial Infarction ([place]), Osteoarthritis (OA) Additional Past Medical History / Comment(s): arthritis in back and bilateral knees,hx hiatal hernia Last Myocardial Infarction Date:: 2004 History of Any Multi-Drug Resistant Organisms: None Reported Past Surgical History: Bowel Resection, Heart Catheterization With Stent Additional Past Surgical History / Comment(s): Cardiac stents x 3, bowel surgery for pinpoint hole in bowel, L knee arthroscopy, colonoscopy/benign polypectomies,hiatal hernia repair Past Anesthesia/Blood Transfusion Reactions: No Reported Reaction Date of Last Stent Placement:: 2013 Past Psychological History: Bipolar, Depression, PTSD, Schizophrenia Smoking Status: Current every day smoker Past Alcohol Use History: Occasional Past Drug Use History: Cocaine, IV Drug Use, Marijuana, Opiates, Prescription Drug Abuse ALLERGIES: Blueberry and nitroglycerin CHEMICAL DEPENDENCY HISTORY: Patient reports crack cocaine use 3 days prior to this admission. He also reports alcohol use. He approximates 3-6 packs of beer every other week. FAMILY PSYCHIATRIC/SUBSTANCE USE HISTORY: Patient states he lost 2 brothers to suicide SOCIAL HISTORY: Patient was born and raised in [place], [place].He has a 12th grade education. He reports previously working for the [employer] and retired approximately 15 years ago. He currently receives Social Security disability. Marital status is listed as however the patient states that he is currently engaged/. He reports he is [place] and has support from his islam community and his family. MENTAL STATUS EXAM: General Appearance: Patient appears to be stated age is alert, directable, and attempts to cooperate. Patient appears to have fair hygiene and grooming. Behavior: Patient is lying down in bed without any agitated behavior. Speech: Patient's speech is nonspontaneous, monotone. Mood/Affect: Patient reports their mood is depressed, affect is congruent and flat. Suicidality/Homicidality: Patient reports both suicidal and homicidal ideation. Perceptions: Patient denies any visual hallucinations but endorses auditory hallucinations but Though content/process: There is no evidence of any delusional thought content and thought process is linear and goal-directed. Memory and concentration: AOX3, grossly intact for the purposes of this session. Can spell "WORLD" backwards Judgment and insight: poor STRENGTHS/WEAKNESSES: Strength is that the patient has significant community and family support. Weakness is that patient engages in substance abuse and is nonadherent with treatment. INTELLECT: average IMPRESSIONS: Major depressive disorder, recurrent, severe, with psychotic features A call use disorder Cocaine use disorder Nicotine dependence PLAN: -Patient is admitted under voluntary status to [facility]HU for stabilization of psychiatric symptoms and safety. Patient signed adult voluntary form and medication consent and is placed in patient's chart. -Medications : Will start patient on Invega 3 mg by mouth at bedtime while we identify when he last received his long-acting injectable medication. Consider transition to Prolixin. We will start Remeron 7.5 mg by mouth at bedtime for insomnia/depression -Haldol and Vistaril PRN for agitation/aggression -CIWA protocol with Ativan PRN for ETOH withdrawal -Patient was counselled on substance abuse and desired to cut back on use -Patient was informed of the risks, benefits and side effects of the medication and patient verbally consented to taking the medications. Patient signed med consent form and was placed in chart. -Internal Medicine consult to perform medical evaluation and physical. -NRT - nicotine patch -SW on board for discharge planning. Encourage patient to participate in groups to work on coping skills. 01/31/22 11:36 01/31/22 11:37
[2022-01-31 12:51] VITALS: BMI 22.1
[2022-01-31] MEDS: NICOTINE 14MG/24HR PATCH TRANSDERM SCH (13:23)
[2022-01-31] MEDS: haloperidoL 1 MG TAB PO PRN (13:25)
[2022-01-31] MEDS: PALIPERIDONE 3 MG TAB.ER.24 PO SCH (19:37)
[2022-01-31] MEDS: hydrOXYzine pamoate 25 MG CAP PO PRN (19:37)
[2022-01-31] MEDS: MIRTAZAPINE 15 MG TAB PO SCH (19:37)
--- NOTE | 2022-01-31 23:55 | P.MDCNMH ---
History of Present Illness H&P Date: 01/31/22 Chief Complaint: Suicidal ideation Patient is a 61-year-old male with a known history of coronary artery status post stent placement in 2013, hyperlipidemia, history of RI, osteoarthritis, current everyday smoker, daily alcohol use and history of cocaine and IV drug abuse and depression/bipolar and PTSD and schizophrenia presents to ER with complaints of suicidal thoughts and was also complaining of on and off chest pains. No radiation of the pain. No associated nausea vomiting or abdominal pain. No dizziness or lightheadedness. Patient states that he does does drink 12 packs of alcohol daily. EKG on admission showed sinus rhythm with ventricular rate 73. No significant ST-T wave changes. Chest x-ray showed no acute cardiopulmonary process Laboratory data showed WBC 5.3 hemoglobin 12.7 and platelets 145 Sodium 141 potassium 4.0 chloride 109 bicarb is 22 BUN 14 and creatinine 0.69 blood sugar is 86 liver enzymes are not elevated troponin x1 negative NT proBNP 36 and lipase level is 71 Serum alcohol level is 103 on admission Coronavirus PCR not detected Review of Systems Constitutional: Patient denies any fever or chills . No generalized weakness or weight loss. Abdomen: Patient denied nausea vomiting and diarrhea and abdominal pain. Cardiovascular: Patient denies any chest pain or short of breath no palpitations.Epigastric chest discomfort Respiratory: patient denied any cough or sputum production. No shortness of b reath Neurologic: Patient denied any numbness or tingling headache. Musculoskeletal: Patient denies any complaints of joint swelling or deformity. Skin: Negative Psychiatric: Negative Endocrine: No heat or cold intolerance. No recent weight gain. Genitourinary: No dysuria or hematuria. All other 14 point ROS negative except the above Past Medical History Past Medical History: Coronary Artery Disease (CAD), Chest Pain / Angina, Hyperlipidemia, Myocardial Infarction (RI), Osteoarthritis (OA) Additional Past Medical History / Comment(s): arthritis in back and bilateral knees,hx hiatal hernia Last Myocardial Infarction Date:: 2004 History of Any Multi-Drug Resistant Organisms: None Reported Past Surgical History: Bowel Resection, Heart Catheterization With Stent Additional Past Surgical History / Comment(s): Cardiac stents x 3, bowel surgery for pinpoint hole in bowel, L knee arthroscopy, colonoscopy/benign polypectomies,hiatal hernia repair Past Anesthesia/Blood Transfusion Reactions: No Reported Reaction Date of Last Stent Placement:: 2013 Past Psychological History: Bipolar, Depression, PTSD, Schizophrenia Additional Psychological History / Comment(s): He states he goes to [facility]. Smoking Status: Current every day smoker Past Alcohol Use History: Occasional Additional Past Alcohol Use History / Comment(s): Pt states he started smoking in 1994 a pack will last him a month. Past Drug Use History: Cocaine, IV Drug Use, Marijuana, Opiates, Prescription Drug Abuse Additional Drug Use History / Comment(s): Pt states that he used MJ. Pt states that he has a history of cocaine, drinks a 12 pack per day. - Past Family History Father Family Medical History: Respiratory Disorder Additional Family Medical History / Comment(s): Father at age 64 from Black lung disease Mother Family Medical History: Hypertension, Myocardial Infarction (RI) Additional Family Medical History / Comment(s): Mother of an RI at 78yrs old. Brother(s) Family Medical History: Myocardial Infarction (RI) Additional Family Medical History / Comment(s): Patient has 10 brothers and 2 from myocardial infarction and had history of alcoholism. Sister(s) Family Medical History: Hypertension, Myocardial Infarction (RI) Additional Family Medical History / Comment(s): He has 7 sisters that are alive with no major medical problems. He has one son that has and one daughter that is alive and okay. Medications and Allergies Home Medications Medication Instructions Recorded Confirmed Type Aspirin 81 mg PO DAILY 30 Days tab 12/10/21 01/31/22 Rx Atorvastatin [Lipitor] 40 mg PO DAILY 30 Days tab 12/10/21 01/31/22 Rx Multivitamins, Thera [Multivitamin 1 each PO DAILY 30 Days tab 12/10/21 Rx (formulary)] Paliperidone IM [Invega Sustenna] 234 mg IM QMONTHLY #1 each 12/10/21 01/31/22 Rx Venlafaxine HCl ER [Effexor XR] 150 mg PO DAILY 30 Days cap 12/10/21 01/31/22 Rx Allergies Allergy/AdvReac Type Severity Reaction Status Date / Time blueberry Allergy Rash/Hives Verified 01/31/22 04:55 nitroglycerin Allergy Swelling Verified 01/31/22 04:55 Physical Exam Vitals: Vital Signs Temp Pulse Pulse Resp BP BP Pulse Ox 01/31/22 04:31 97.8 F 88 20 132/92 98 12/23/22 02:34 87 16 143/88 93 L 01/31/22 00:46 83 18 142/85 99 01/30/22 23:34 75 18 145/101 95 01/30/22 22:10 98.0 F 76 18 139/95 95 Intake and Output 01/30/22 01/31/22 01/31/22 22:59 06:59 14:59 Other: Weight 74.843 kg 68.1 kg PHYSICAL EXAMINATION: Patient is lying in the bed comfortably, no acute distress, awake alert and oriented.. HEENT: Normocephalic. Neck is supple. Pupils reactive. Nostrils clear. Oral cavity is moist. Neck reveals no JVD, carotid bruits, or thyromegaly. CHEST EXAMINATION: Trachea is central. Symmetrical expansion. Lung chou clear to auscultation and percussion. CARDIAC: Normal S1, S2 with no gallops. No murmurs ABDOMEN: Soft. Bowel sounds normal. No organomegaly. No abdominal bruits. Extremities: reveal no edema. No clubbing or cyanosis Neurologically awake, alert, oriented x3 with well-coordinated movements. No focal deficits noted Skin: No rash or skin lesions. Psychiatric: Cooperative. Nonsuicidal Musculoskeletal: No joint swelling or deformity. Normal range of motion. Cranial Nerve Examination - Cranial Nerves Cranial Nerve I- Olfactory: Intact Cranial Nerve II- Optic: Intact Cranial Nerve III- Oculomotor: Intact Cranial Nerve IV- Trochlear: Intact Cranial Nerve V- Trigeminal: Intact Cranial Nerve - Abducens: Intact Cranial Nerve VII- Facial: Intact Cranial Nerve VIII- Auditory: Intact Cranial Nerve IX- Glossopharyngeal: Intact Cranial Nerve X- Vagus: Intact Cranial Nerve XI- Accessory: Intact Cranial Nerve XII- Hypoglossal: Intact Results CBC & Chem 7: 01/30/22 22:40 01/30/22 22:40 Labs: Abnormal Lab Results - Last 24 Hours (Table) 01/30/22 01/30/22 Range/Units 22:40 22:40 RBC 3.88 L (4.30-5.90) m/uL Hgb 12.7 L (13.0-17.5) gm/dL Hct 38.8 L (39.0-53.0) % Plt Count 145 L (150-450) k/uL Chloride 109 H (98-107) mmol/L Assessment and Plan Assessment: Acute alcohol intoxication on admission Major depression and suicidal ideation Alcohol use disorder in the current level is smoker and history of polysubstance abuse including cocaine. Bipolar disorder and schizophrenia Coronary with history of stent placement in 2013 Chest pain mainly in the epigastric region. Unlikely ACS. Initial troponin EKG negative. Hyperlipidemia History of RI Osteoarthritis DVT prophylaxis with early ambulation Plan: Patient will be continued current psychiatric plan and management. Continue the CIWA protocol for EtOH withdrawal. Patient was counseled for smoking cessation and substance abuse. Patient can be started back on aspirin and statins. Follow-up closely. Further recommendations based on the clinical course. Can thank you for the consult.
[2022-02-01 07:22] VITALS: BP 113/79; PULSE 63; RESP 18
[2022-02-01] MEDS: ASPIRIN 81 MG PO SCH (08:13)
[2022-02-01] MEDS: PANTOPRAZOLE 40 MG TABLET PO SCH (08:13)
[2022-02-01] MEDS: ATORVASTATIN 40 MG TAB PO SCH (08:13)
[2022-02-01] MEDS: hydrOXYzine pamoate 25 MG CAP PO PRN ×2 (08:13→13:46)
[2022-02-01] MEDS: NICOTINE 14MG/24HR PATCH TRANSDERM SCH (08:13)
[2022-02-01] MEDS: haloperidoL 1 MG TAB PO PRN (13:46)
[2022-02-01] MEDS ORDERED: QUEtiapine 100 MG TAB PO STA (15:46)
[2022-02-01] MEDS ORDERED: QUEtiapine 400 MG TAB PO SCH (21:00)
[2022-02-01] MEDS: MIRTAZAPINE 15 MG TAB PO SCH (21:23)
[2022-02-01] MEDS: PALIPERIDONE 3 MG TAB.ER.24 PO SCH (21:23)
[2022-02-02] MEDS: ATORVASTATIN 40 MG TAB PO SCH (08:24)
[2022-02-02] MEDS: PANTOPRAZOLE 40 MG TABLET PO SCH (08:24)
[2022-02-02] MEDS: QUEtiapine 50 MG TAB PO SCH ×2 (08:24→14:16)
[2022-02-02] MEDS: ASPIRIN 81 MG PO SCH (08:24)
[2022-02-02] MEDS: NICOTINE 14MG/24HR PATCH TRANSDERM SCH (08:25)
--- NOTE | 2022-02-02 18:49 | PN ---
PROGRESS NOTE DATE OF SERVICE: 02/01/2022 CHIEF COMPLAINT: The patient was admitted for increasing hallucinations with voices telling him to harm someone. INTERVAL HISTORY: The patient has been struggling. He had a difficult day yesterday. In the afternoon, he talked about having voices telling him to hurt himself and others. He received Haldol 3 mg p.o. at 1325 hours. He kept to himself. He spent most of his time in his room. Late in the evening, he went to staff complaining of anxiety. At 2317 hours, he was given Vistaril 50 mg along with his nighttime medications. He slept fair last night. Today, he has been about the same. He spent most of the day in his room. He received Vistaril 50 mg p.r.n. this morning for anxiety. Early in the afternoon, he approached staff with the same complaint. He was taking about voices telling him to hurt himself and others. He was highly anxious. At 1347 hours, he received Haldol 3 mg p.o. and Vistaril 50 mg p.o. When I talked to him later in the afternoon, he continued to complain of feeling very anxious. He has spent most of the day in his room. He acknowledges that he has been drinking on a daily basis. He was vague about use of other drugs. He said he has not been using cocaine recently, though cocaine had been in the picture in his September admission and also that he had reported to Dr. Orr both on this admission as well as the 12/10/2021 admission that he was using cocaine prior to coming into the hospital. He said that one plan when he left the hospital in September was to go to [place], though he said he did not make that connection and also that he likely stopped taking medications at that time because he did not feel they were working. It is noted that in the discharge summary from October 10, it was indicated that his was going to take him to [place] for admission. He says that he lives alone. He was vague about who may be in his life is a social support. His living situation is stable. He does not feel that the Invega he has been on has been helpful. He feels that Seroquel had been helpful for him and stated that he took about 400 mg a day. According to our records, this is his seventh admission this year, and it is noteworthy that on discharge on 02/27/2021, he was prescribed Seroquel 300 mg a day. Since then, he had not been on Seroquel as far as a discharge medication coming from this facility. When I talked to him today, for the most part, he focused on having high anxiety. He appears to tolerate his psychotropic medications. He does say that he has been taking Effexor, though suggested that he only takes it intermittently. MENTAL STATUS EXAMINATION: The patient sat in a slumped posture. Eye contact was poor. He answered questions with brief responses. He spoke in a soft monotone voice. He did not say much. He was not spontaneous or interactive. His affect was flat. Mood was depressed. He was significantly distressed. In his reports of auditory hallucinations, he also described having voices telling him to hurt himself or others. He stated that he did not have a plan or intent at present and felt safe on the unit. He was oriented and alert. ASSESSMENT: I will continue the current diagnosis and treatment plan. I encouraged the patient to do some therapeutic walking and possibly attending groups. He said right now, he did not feel he could attend groups because he is too anxious and "I don't want to hurt anyone." I will start the patient on Seroquel. He will get 50 mg twice a day and 400 mg at bedtime. At this point, I will continue Invega 3 mg a day and Remeron 7.5 mg a day. There has been a focus on getting the patient stabilized on Invega Sustenna over the last several admissions. Thus, we can continue with that plan if the patient is in agreement and it is supported by his followup through [facility]. He is not likely to get much benefit from any antidepressants until he is several weeks free of alcohol and any other abusive substances. Urine drug screen as yet has not been obtained. I briefly reviewed medication issues with the patient in regard to Seroquel, though kept a discussion limited as he was not very inclined to engage in a conversation. We will focus on stabilization and discharge planning. MMELGINL / JUANN: [id number] /
[2022-02-02 18:54] LABS: HCT 36.9 % (39.0-53.0); MCH 33.1 pg (25.0-35.0); MCHC 32.6 g/dL (31.0-37.0); MCV 101.6 fL (80.0-100.0); Platelet Count 145 k/uL (150-450); RBC 3.63 m/uL (4.30-5.90); RDW 13.4 % (11.5-15.5); WBC 3.6 k/uL (3.8-10.6)
[2022-02-02 19:02] LABS: ALT 19 U/L (4-49); AST 26 U/L (17-59); African American GFR (CKD) >90 (>60 ml/min/1.73 sqM); Albumin 3.8 g/dL (3.5-5.0); Alkaline Phosphatase 48 U/L (38-126); Anion Gap 6 mmol/L; Blood Urea Nitrogen 17 mg/dL (9-20); Calcium 9.3 mg/dL (8.4-10.2); Carbon Dioxide 24 mmol/L (22-30); Chloride 110 mmol/L (98-107); Glucose 129 mg/dL (74-99); Non-African American GFR(CKD) >90 (>60 ml/min/1.73 sqM); Potassium 3.7 mmol/L (3.5-5.1); Sodium 140 mmol/L (137-145); Total Bilirubin 0.3 mg/dL (0.2-1.3); Total Protein 6.7 g/dL (6.3-8.2)
--- NOTE | 2022-02-03 02:49 | PN ---
PROGRESS NOTE DATE OF SERVICE: 02/02/2022 CHIEF COMPLAINT: The patient stated he wished he was and was having hallucinations that are telling him to harm someone. INTERVAL HISTORY: The patient has been doing fairly well. He had a quiet day yesterday. He spent a fair amount of time in his room. He said he did not want come out because of feeling too anxious. He did not attend groups. CIWA scores were minimal. Nursing documented that he slept 6 hours last night. He says his sleep last night was considerably better than it was the night before. He has been out a little more today. He said that he is having less issues with anxiety than he had been having. He notes a better outlook overall. He says he continues to have auditory hallucinations, though he notes that voices are not as intense and persistent as they were yesterday. He has not attended groups, though says that he will try. He does feel that the Seroquel has helped him both in the daytime as well as at night. He tolerates his psychotropic medications. MENTAL STATUS: The patient sat without restlessness. He gave fairly good eye contact. He answered questions with brief responses. He did not say a lot. He was somewhat interactive. His affect was a little constricted, though he smiled and had a friendly manner. His mood was quiet and not clearly down or depressed. He did not appear to be distressed. He continues to voice some issues of having auditory hallucinations. He was voicing no thoughts of harm today. He was oriented and alert. ASSESSMENT: I will continue the current diagnosis and treatment plan. I will continue psychotropic medications the same, namely Seroquel 50 mg twice a day morning and afternoon and 400 mg at bedtime. He also is on Remeron 7.5 mg at bedtime. He is also on Invega 3 mg a day. There has been consideration for his initiating a long-acting injectable. He is not showing indications of alcohol detox sign. Vital signs have been stable. I briefly reviewed medication issues with the patient including, discussing the indications, potential side effects, and concerns relating to metabolics and movement disorder issues as it relates to his antipsychotics. We will focus on stabilization and discharge planning. MMODL / IJN: [id number] /
--- NOTE | 2022-02-05 19:49 | CDI ---
Documentation Clarification Form Date: 02/05/2022 07:20:09 PM From: Meg Rodriguez Phone: Admit Date: 01/31/2022 03:50:00 AM Patient Name: Lele Scott Visit Number: [id number] Discharge Date: 02/02/2022 06:58:00 PM ATTENTION: The Clinical Documentation Specialists (CDI) and [facility] Coding Staff appreciate your assistance in clarifying documentation. Please respond to the clarification below the line at the bottom and electronically sign. The CDI & [facility] Coding staff will review the response and follow-up if needed. Please note: Queries are made part of the Legal Health Record. If you have any questions, please contact the author of this message via ITS. Dr. Desmond Reynaga The patients principal diagnosis the diagnosis that was chiefly responsible for the admission - has not been clearly identified and clarification is requested. The patient presented with the following chest pain, SI, pain control. ETOH use, PsychHx: Bipolar, Depression, PTSD, Schizophrenia, IV Drug Use, Marijuana, Opiates, Prescription Drug Abuse, Cocaine use, Smoker, FHx suicide & ETOH History/Risk factors: 61yo M, Major depressive with psychotic features, anxiety, SI, ETOH abuse w intoxication w BAL 103, HLD, Hx IL, OA Clinical Indicators: Temp 98.0 F; Pulse Rate 76 75 83; Respiratory 18; B/P 139/95 145/101 142/85; O2 Sat by Pulse 95 95 99 01/30/22 Treatment: Continue the current diagnosis and treatment plan. Continue psychotropic medications the same, namely Seroquel 50 mg twice a day morning and afternoon and 400 mg at bedtime. He also is on Remeron 7.5 mg at bedtime. He is also on Invega 3 mg a day. There has been consideration for his initiating a long-acting injectable. He is not showing indications of alcohol detox sign. Vital signs have been stable. Medical - Consult for MHU: ETOH intoxication, major depression w SI, smoker, Hx polysubstance abuse including cocaine, Bipolar disorder, schizophrenia, CAD Hx stent, troponin EKG -, HLD, Hx IL, OA In your professional opinion, can you please clarify which diagnosis, after study, was the reason chiefly responsible for the admission? [ ] Major depression (please specify type i.e Recurrent, Bipolar) [ ] Schizophrenia, (please specify type (i.e. Depressive, Bipolar) [ ] ETOH intoxication [ ] Other, please specify [ ] Unable to determine (Template Last Revised: April 2020) MTDD
--- NOTE | 2022-02-13 10:26 | CDI ---
Documentation Clarification Form Date: 02/13/2022 10:19 AM From: Meg Rodriguez Phone: Admit Date: 01/31/2022 3:50:00 AM Patient Name: Lele Scott Visit Number: [id number] Discharge Date: 02/02/2022 6:58:00 PM ATTENTION: The Clinical Documentation Specialists (CDI) and [facility] Coding Staff appreciate your assistance in clarifying documentation. Please respond to the clarification below the line at the bottom and electronically sign. The CDI & [facility] Coding staff will review the response and follow-up if needed. Please note: Queries are made part of the Legal Health Record. If you have any questions, please contact the author of this message via ITS. Dr. Desmond Reynaga Thank you for signing the previous query; however, it did not have a answer thus I am resubmitting this query. The patients principal diagnosis the diagnosis that was chiefly responsible for the admission - has not been clearly identified and clarification is requested. The patient presented with the following chest pain, SI, pain control. ETOH use, PsychHx: Bipolar, Depression, PTSD, Schizophrenia, IV Drug Use, Marijuana, Opiates, Prescription Drug Abuse, Cocaine use, Smoker, FHx suicide & ETOH History/Risk factors: 61yo M, Major depressive with psychotic features, anxiety, SI, ETOH abuse w intoxication w BAL 103, HLD, Hx [place], OA Clinical Indicators: Temp 98.0 F; Pulse Rate 76 75 83; Respiratory 18; B/P 139/95 145/101 142/85; O2 Sat by Pulse 95 95 99 01/30/22 Treatment: Continue the current diagnosis and treatment plan; psychotropic medications, namely Seroquel 50 mg twice a day morning and afternoon and 400 mg at bedtime. Remeron 7.5 mg at bedtime. Invega 3 mg a day. There has been consideration for his initiating a long-acting injectable. He is not showing indications of alcohol detox sign. Medical - Consult for MHU: ETOH intoxication, major depression w SI, smoker, BPD, OA, HLD Hx polysubstance abuse including cocaine, schizophrenia, CAD Hx SC & stent In your professional opinion, can you please clarify which diagnosis, after study, was the reason chiefly responsible for the admission? [ ] Major depression (please specify type i.e Recurrent, Bipolar) [ ] Schizophrenia, (please specify type (i.e. Depressive, Bipolar) [ ] ETOH intoxication [ ] Other, please specify [ ] Unable to determine (Template Last Revised: April 2020) MTDD
--- NOTE | 2022-02-16 22:52 | DS ---
DATE OF SERVICE: 02/03/2022 DISCHARGE SUMMARY ADMISSION DIAGNOSES: 1. Major depressive disorder, recurrent, severe, with psychotic features. 2. Alcohol use disorder. 3. Cocaine use disorder. 4. Nicotine dependence. DISCHARGE DIAGNOSIS: Chest pain. HISTORY OF PRESENTING ILLNESS: The patient is a 61-year-old male who was admitted due to reporting having suicide thoughts. He stated "I wish I was having hallucinations that are telling me to harm someone." He had substance use issues including recent use of cocaine and alcohol. He was describing auditory hallucinations with command hallucinations telling him to kill himself or hurt others. He acknowledged he was eating poorly and not taking care of himself at home. He had not been taking psychiatric medications that had been prescribed. He had a recent past psychiatric hospitalization in this facility in September 2021. He was on Invega Sustenna, although it was unclear when he received his last injection. He was admitted for further evaluation. PAST MEDICAL HISTORY: The patient has a history of coronary artery disease, angina, hyperlipidemia, myocardial infarction, and osteoarthritis. PHYSICAL EXAM: As per medical consultation. MENTAL STATUS EXAMINATION: The patient was cooperative. Speech was non-spontaneous and monotone. Mood depressed. Affect flat. He was not showing delusional thinking at the time of the interview. He was oriented and alert. COURSE OF HOSPITALIZATION: The patient was admitted for comprehensive medical psychiatric and psychosocial evaluation. We will engage the patient in individual and group therapeutic activities. On admission, the patient was started on Invega 3 mg a day and Remeron 7.5 mg a day. He was started on a CIWA protocol. During much of his hospitalization, he tended to be quiet and kept to himself. He did not attend group activity. He was able to discuss discharge planning options. On the day of discharge, he began complaining of chest pain and was transferred to the ED for further evaluation. CONDITION AT DISCHARGE: The patient had question of cardiac symptoms. RECOMMENDATION AND FOLLOW UP: The patient is transferred to the ED for further evaluation. MMODL / IJN: [id number] / MTDD
== END 2022-02-02 18:58 | disposition home or self-care (01) | DRG 885 ==
LOC: EC 22:04 → 3MHU 01-31 03:50
PROVIDERS: ADMIT Psychiatry & Neurology Psychiatry; ATTEND Psychiatry & Neurology Psychiatry
PROC: HZ2ZZZZ Detoxification Services for Substance Abuse Treatment (ICD-10-PCS; principal; 2022-01-31)
DX: F33.3 Major depressive disorder, recurrent, severe with psychotic symptoms (principal); R45.851 Suicidal ideations; F20.9 Schizophrenia, unspecified; F10.129 Alcohol abuse with intoxication, unspecified; F19.10 Other psychoactive substance abuse, uncomplicated; F43.10 Post-traumatic stress disorder, unspecified; E78.5 Hyperlipidemia, unspecified; I25.10 Atherosclerotic heart disease of native coronary artery without angina pectoris; F17.210 Nicotine dependence, cigarettes, uncomplicated; M47.9 Spondylosis, unspecified; M17.0 Bilateral primary osteoarthritis of knee; Y90.5 Blood alcohol level of 100-119 mg/100 ml; Z20.822 Contact with and (suspected) exposure to COVID-19; Z79.899 Other long term (current) drug therapy; Z79.82 Long term (current) use of aspirin; Z91.018 Allergy to other foods; Z88.8 Allergy status to other drugs, medicaments and biological substances; I25.2 Old myocardial infarction; Z95.5 Presence of coronary angioplasty implant and graft; Z81.8 Family history of other mental and behavioral disorders; Z81.1 Family history of alcohol abuse and dependence; Z91.14 Patient's other noncompliance with medication regimen; Z91.199 Patient's noncompliance with other medical treatment and regimen due to unspecified reason; F14.90 Cocaine use, unspecified, uncomplicated
CPT/HCPCS: 36415; 71046; 80053; 80061; 80320; 83690; 83735; 83880; 84443; 84484; 85025; 85027; 85610; 85730; 87635; 87636; 93005; 93306; 94760; 96374; 96375; 99285

== ENCOUNTER 2022-02-02 19:14 | Observation (INO) | payer MEDICARE, OTHER ==
[2022-02-02] MEDS ORDERED: ASPIRIN 81 MG PO STA (19:26)
--- NOTE | 2022-02-02 19:37 | ED ---
General Adult HPI - General Chief complaint: Chest Pain Stated complaint: Chest Pain Time Seen by Provider: 02/02/22 19:15 Source: EMS Mode of arrival: EMS Limitations: no limitations - History of Present Illness Initial comments: Dictation was produced using [employer] dictation software. please excuse any grammatical, word or spelling errors. Chief Complaint: 61-year-old male presents emergency department for chest pain History of Present Illness: She is 61-year-old male who is currently admitted into mental health unit. He's been having chest pain for the last 2 days. Patient states it is pressure-like radiates down the left upper extremity. He has history of coronary artery disease and multiple coronary artery stents. So pérez told the health unit staff that he was having these symptoms. He was brought to the emergency department. Patient denies any associated diaphoresis or nausea however he does report that her symptoms remind him of when he was diagnosed with a heart attack in the past. The ROS documented in this emergency department record has been reviewed and confirmed by me. Those systems with pertinent positive or negative responses have been documented in the HPI. All other systems are other negative and/or noncontributory. PHYSICAL EXAM: General Impression: Alert and oriented x3, not in acute distress HEENT: Normocephalic atraumatic, extra-ocular movements intact, pupils equal and reactive to light bilaterally, mucous membranes moist. Cardiovascular: Heart regular rate and rhythm Chest: Able to complete full sentences, no retractions, no tachypnea Abdomen: abdomen soft, non-tender, non-distended, no organomegaly Musculoskeletal: Pulses present and equal in all extremities, no peripheral edema Motor: no focal deficits noted Neurological: CN II-XII grossly intact, no focal motor or sensory deficits noted Skin: Intact with no visualized rashes Psych: Normal affect and mood ED course: 61-year-old well-appearing male presents emergency department for chest symptoms concerning for acute coronary syndrome. He is high risk with history of coronary artery disease. Vital signs upon arrival are within acceptable limits. Nursing notes and chart review was performed My EKG interpretation: Ventricular rate 98, sinus rhythm,. Interval 116, QRS 83, QTC 4:15. No NE prolongation, no QTC prolongation, no ST or T-wave changes noted. EKG compared to 01/30/2022 showing no changes. Overall, this EKG is unremarkable laboratory evaluation obtained. CBC, coag panel, metabolic panel is unremarkable. Troponin is negative. Chest x-rays unremarkable. Patient reevaluated at bedside at 9:40 PM followed been stable medical condition. Patient be admitted to observation unit for cardiac monitoring and cardiology consultation. Initially Dr. Desai was contacted because Dr. Goldberg is listed as primary care doctor of her Dr. Desai spoke with our sector services patient is not in the system. [facility]ry is ordered for consult because patient is Psychiatric admission currently - Related Data Previous Rx's Medication Instructions Recorded Aspirin 81 mg PO DAILY 30 Days tab 12/10/21 Atorvastatin [Lipitor] 40 mg PO DAILY 30 Days tab 12/10/21 Multivitamins, Thera [Multivitamin 1 each PO DAILY 30 Days tab 12/10/21 (formulary)] Paliperidone IM [Invega Sustenna] 234 mg IM QMONTHLY #1 each 12/10/21 Venlafaxine HCl ER [Effexor XR] 150 mg PO DAILY 30 Days cap 12/10/21 Allergies Allergy/AdvReac Type Severity Reaction Status Date / Time blueberry Allergy Rash/Hives Verified 01/31/22 04:55 nitroglycerin Allergy Swelling Verified 01/31/22 04:55 Review of Systems ROS Statement: Those systems with pertinent positive or pertinent negative responses have been documented in the HPI. ROS Other: All systems not noted in ROS Statement are negative. Past Medical History Past Medical History: Coronary Artery Disease (CAD), Chest Pain / Angina, Hyperlipidemia, Myocardial Infarction (MO), Osteoarthritis (OA) Additional Past Medical History / Comment(s): arthritis in back and bilateral knees,hx hiatal hernia Last Myocardial Infarction Date:: 2004 History of Any Multi-Drug Resistant Organisms: None Reported Past Surgical History: Bowel Resection, Heart Catheterization With Stent Additional Past Surgical History / Comment(s): Cardiac stents x 3, bowel surgery for pinpoint hole in bowel, L knee arthroscopy, colonoscopy/benign polypectomies,hiatal hernia repair Past Anesthesia/Blood Transfusion Reactions: No Reported Reaction Date of Last Stent Placement:: 2013 Past Psychological History: Bipolar, Depression, PTSD, Schizophrenia Smoking Status: Current every day smoker Past Alcohol Use History: Occasional Past Drug Use History: Cocaine, IV Drug Use, Marijuana, Opiates, Prescription Drug Abuse - Past Family History Father Family Medical History: Respiratory Disorder Additional Family Medical History / Comment(s): Father at age 64 from Black lung disease Mother Family Medical History: Hypertension, Myocardial Infarction (MO) Additional Family Medical History / Comment(s): Mother of an MO at 78yrs old. Brother(s) Family Medical History: Myocardial Infarction (MO) Additional Family Medical History / Comment(s): Patient has 10 brothers and 2 from myocardial infarction and had history of alcoholism. Sister(s) Family Medical History: Hypertension, Myocardial Infarction (MO) Additional Family Medical History / Comment(s): He has 7 sisters that are alive with no major medical problems. He has one son that has and one daughter that is alive and okay. General Exam Limitations: no limitations Course Vital Signs 02/02/22 02/02/22 19:15 19:53 Temperature 99.1 F Pulse Rate 108 H 102 H Pulse Rate [ 100 Apical] Respiratory 19 16 Rate Blood Pressure 102/82 124/84 O2 Sat by Pulse 99 99 Oximetry Medical Decision Making - Lab Data Result diagrams: 02/02/22 19:49 02/02/22 19:49 Lab Results 02/02/22 02/02/22 02/02/22 Range/Units 19:49 19:49 19:49 WBC 4.1 (3.8-10.6) k/uL RBC 3.64 L (4.30-5.90) m/uL Hgb 12.2 L (13.0-17.5) gm/dL Hct 36.0 L (39.0-53.0) % MCV 98.9 (80.0-100.0) fL MCH 33.4 (25.0-35.0) pg MCHC 33.8 (31.0-37.0) g/dL RDW 14.0 (11.5-15.5) % Plt Count 140 L (150-450) k/uL MPV 9.6 Neutrophils % (Manual) 42 % Lymphocytes % (Manual) 52 % Monocytes % (Manual) 6 % Neutrophils # (Manual) 1.72 (1.3-7.7) k/uL Lymphocytes # (Manual) 2.13 (1.0-4.8) k/uL Monocytes # (Manual) 0.25 (0-1.0) k/uL Nucleated RBCs 0 (0-0) /100 WBC Manual Slide Review Performed PT 9.8 (9.0-12.0) sec INR 0.9 (<1.2) APTT 23.1 (22.0-30.0) sec Sodium 139 (137-145) mmol/L Potassium 4.3 (3.5-5.1) mmol/L Chloride 111 H (98-107) mmol/L Carbon Dioxide 24 (22-30) mmol/L Anion Gap 4 mmol/L BUN 20 (9-20) mg/dL Creatinine 0.71 (0.66-1.25) mg/dL Est GFR (CKD-EPI)AfAm >90 (>60 ml/min/1.73 sqM) Est GFR (CKD-EPI)NonAf >90 (>60 ml/min/1.73 sqM) Glucose 100 H (74-99) mg/dL Calcium 9.5 (8.4-10.2) mg/dL Magnesium 1.8 (1.6-2.3) mg/dL Total Bilirubin 0.3 (0.2-1.3) mg/dL AST 29 (17-59) U/L ALT 19 (4-49) U/L Alkaline Phosphatase 49 (38-126) U/L Troponin I (0.000-0.034) ng/mL Total Protein 6.9 (6.3-8.2) g/dL Albumin 3.9 (3.5-5.0) g/dL 02/02/22 Range/Units 19:49 WBC (3.8-10.6) k/uL RBC (4.30-5.90) m/uL Hgb (13.0-17.5) gm/dL Hct (39.0-53.0) % MCV (80.0-100.0) fL MCH (25.0-35.0) pg MCHC (31.0-37.0) g/dL RDW (11.5-15.5) % Plt Count (150-450) k/uL MPV Neutrophils % (Manual) % Lymphocytes % (Manual) % Monocytes % (Manual) % Neutrophils # (Manual) (1.3-7.7) k/uL Lymphocytes # (Manual) (1.0-4.8) k/uL Monocytes # (Manual) (0-1.0) k/uL Nucleated RBCs (0-0) /100 WBC Manual Slide Review PT (9.0-12.0) sec INR (<1.2) APTT (22.0-30.0) sec Sodium (137-145) mmol/L Potassium (3.5-5.1) mmol/L Chloride (98-107) mmol/L Carbon Dioxide (22-30) mmol/L Anion Gap mmol/L BUN (9-20) mg/dL Creatinine (0.66-1.25) mg/dL Est GFR (CKD-EPI)AfAm (>60 ml/min/1.73 sqM) Est GFR (CKD-EPI)NonAf (>60 ml/min/1.73 sqM) Glucose (74-99) mg/dL Calcium (8.4-10.2) mg/dL Magnesium (1.6-2.3) mg/dL Total Bilirubin (0.2-1.3) mg/dL AST (17-59) U/L ALT (4-49) U/L Alkaline Phosphatase (38-126) U/L Troponin I <0.012 (0.000-0.034) ng/mL Total Protein (6.3-8.2) g/dL Albumin (3.5-5.0) g/dL Disposition Clinical Impression: Chest pain Disposition: ADMITTED IP TO THIS [facility] Condition: Fair Referrals: Bal Goldberg Jr, [Primary Care Provider] - 1-2 days Decision Time: 21:41
--- NOTE | 2022-02-02 20:16 | XR ---
EXAMINATION TYPE: XR chest 2V DATE OF EXAM: 02/02/2022 COMPARISON: 01/30/2022 HISTORY: Chest pain TECHNIQUE: FINDINGS: Heart is normal. Lungs are clear. Diaphragm is normal. Bony thorax is intact. There are bertha st leads. IMPRESSION: Normal chest. No change.
[2022-02-02 20:30] LABS: HGB 12.2 gm/dL (13.0-17.5); MCH 33.4 pg (25.0-35.0); MCHC 33.8 g/dL (31.0-37.0); MCV 98.9 fL (80.0-100.0); Mean Platelet Volume 9.6; Platelet Count 140 k/uL (150-450); RBC 3.64 m/uL (4.30-5.90); WBC 4.1 k/uL (3.8-10.6)
[2022-02-02 20:32] LABS: INR 0.9 (<1.2); Partial Thromboplastin Time 23.1 sec (22.0-30.0); Prothrombin Time 9.8 sec (9.0-12.0)
[2022-02-02 21:07] LABS: Lymphocytes # (M) 2.13 k/uL (1.0-4.8); Monocytes # (M) 0.25 k/uL (0-1.0); Neutrophils # (M) 1.72 k/uL (1.3-7.7); Neutrophils % (M) 42 %; Nucleated Red Blood Cells 0 /100 WBC (0-0); Total Cells Counted 100
[2022-02-02 21:09] LABS: ALT 19 U/L (4-49); AST 29 U/L (17-59); African American GFR (CKD) >90 (>60 ml/min/1.73 sqM); Albumin 3.9 g/dL (3.5-5.0); Alkaline Phosphatase 49 U/L (38-126); Anion Gap 4 mmol/L; Blood Urea Nitrogen 20 mg/dL (9-20); Calcium 9.5 mg/dL (8.4-10.2); Carbon Dioxide 24 mmol/L (22-30); Chloride 111 mmol/L (98-107); Glucose 100 mg/dL (74-99); Magnesium 1.8 mg/dL (1.6-2.3); Non-African American GFR(CKD) >90 (>60 ml/min/1.73 sqM); Potassium 4.3 mmol/L (3.5-5.1); Sodium 139 mmol/L (137-145); Total Bilirubin 0.3 mg/dL (0.2-1.3); Total Protein 6.9 g/dL (6.3-8.2)
[2022-02-02] MEDS ORDERED: HYDROcodone/APAP 5-325MG 1 EACH TAB PO STA (21:33)
[2022-02-02] MEDS ORDERED: NITROGLYCERIN SL TABS 0.4 MG TAB SUBLINGUAL PRN (21:36)
[2022-02-03] MEDS: ASPIRIN 325 MG TAB PO SCH (08:52)
[2022-02-03 09:15] VITALS: RESP 16
[2022-02-03 09:29] LABS: Chol/HDL Ratio 1.57 Ratio; LDL Cholesterol,Calculated 51.6 mg/dL (0.0-131.0)
--- NOTE | 2022-02-03 09:46 | CONS ---
CONSULTATION CHIEF COMPLAINT: Chest pain. HISTORY OF PRESENT ILLNESS: Lele is a 61-year-old gentleman with history of coronary artery disease, status post prior angioplasty with stent placement of LAD, who was admitted to the psych unit where he complained of chest discomfort, following which he is transferred to the ER and from where he is admitted to the medical floor. At the time of my evaluation, he appears comfortable at rest and denies any chest pain. He describes his chest discomfort as sharp, precordial, mild intensity, not associated with diaphoresis, dizziness or focal neurological deficits. He states that his main symptom is that he is not feeling well, and has some aches and pains. EKG shows sinus rhythm with left anterior fascicular block. Chest x-ray was negative. Since admission, he has had 3 sets of cardiac enzymes that are all within normal limits. The patient came with chest pain in 2019 and underwent cardiac catheterization that revealed a patent stent. He was also admitted to hospital with precordial chest pain in August and underwent a Lexiscan that was negative for ischemia while the LV function was reported as being abnormal on that study. An echocardiogram done concomitantly showed normal LV function. The patient has history of drug abuse. PAST MEDICAL HISTORY: Significant for coronary artery disease, status post angioplasty. CURRENT MEDICATIONS: Include: 1. Multivitamins. 2. Aspirin. 3. Lipitor. 4. Effexor. ALLERGIES: Sublingual nitroglycerin. FAMILY HISTORY: Negative for premature coronary artery disease. SOCIAL HISTORY: Negative for smoking issues with significant for drug abuse. REVIEW OF SYSTEMS: A has been performed and pertinent are as documented. PHYSICAL EXAMINATION: GENERAL: On exam, comfortable at rest. VITAL SIGNS: Stable. NECK: There is no jugular venous distention. Carotid upstroke is normal. There is no bruit. CHEST EXAM: Reveals good air entry bilaterally. HEART EXAM: Reveals first and second heart sounds. No gallop. No murmur. No rub. ABDOMEN: Soft, nontender. EXTREMITIES: Did not reveal any edema. Peripheral pulses are felt. LABORATORIES: Show that the creatinine 0.7. Troponins are negative. Hemoglobin is 12.2, and platelet count is 140. ASSESSMENT: 1. Precordial chest pain. 2. Coronary artery disease, status post prior angioplasty. PLAN: The patient's chest discomfort is sharp, atypical, had a cardiac cath within the last 2 years that did not reveal significant obstructive CAD, had a stress test that did not reveal any ischemia within the last 6 months. I will obtain a 2D echo and if that looks normal, he does not require any further cardiac workup on this admission. He can be sent back to the psych unit or may be discharged home. SYBIL / OLIVIA: [id number] /
--- NOTE | 2022-02-03 12:11 | CA ---
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 18 - 58 / 22 - 52 cm??? M-MODE Aortic Root Diameter MM 3.3 cm AV Cusp Separation MM 1.6 cm DOPPLER AV Peak Velocity 134.7 cm/s AV Peak Gradient 7.3 mmHg LVOT Peak Velocity 96.5 cm/s LVOT Peak Gradient 3.7 mmHg MV Area PHT 3.0 cm??? Mitral E Point Velocity 50.9 cm/s Mitral A Point Velocity 62.7 cm/s Mitral E to A Ratio 0.8 MV Deceleration Time 257.0 ms TR Peak Velocity 235.6 cm/s TR Peak Gradient 22.2 mmHg Right Ventricular Systolic Press 25.9 mmHg FINDINGS Left Ventricle Normal left ventricular systolic function with no obvious regional wall motion abnormalities. Left ventricular ejection fraction is estimated at 55-60 %. Right Ventricle Moderate right ventricular dilatation. Right Atrium Normal right atrial size. Left Atrium Normal left atrial size. Mitral Valve Structurally normal mitral valve. Mild mitral annular calcification. Mitral valve thickened. Aortic Valve No aortic valve stenosis or regurgitation. Tricuspid Valve Mild tricuspid regurgitation. Pulmonic Valve Trace pulmonic regurgitation. Pericardium No pericardial effusion. Aorta Normal size aortic root and proximal ascending aorta. CONCLUSIONS Normal LV systolic function Previewed by: Dr. Willy Sorto MD (Electronically Signed) Final Date: 03 February 2022 12:10
[2022-02-03] MEDS: PANTOPRAZOLE 40 MG TABLET PO SCH (14:08)
[2022-02-03] MEDS: VENLAFAXINE HCL ER 75 MG CAP PO SCH (14:08)
[2022-02-03] MEDS ORDERED: MIRTAZAPINE 15 MG TAB PO SCH (21:00)
[2022-02-03] MEDS ORDERED: QUEtiapine 400 MG TAB PO SCH (21:00)
--- NOTE | 2022-02-03 21:38 | P.HPIM ---
History of Present Illness H&P Date: 02/03/22 Chief Complaint: chest Pain Patient is a 59-year-old male with a known history of coronary with history of stent placement in 2014, hyperlipidemia, osteoarthritis, bipolar disorder, schizophrenia and PTSD and currently everyday smoker and history of cocaine and IV drug abuse and drinks 12 pack/day was sent to ER from mental health unit. Apparently patient has been having chest pain for the past 2 days. Patient states that she felt pressure-like sensation in the left retrosternal region and radiating down the left upper extremity. Patient also states that he felt yi seous and sweating sometimes. Patient told his symptoms today medical staff in the mental health unit and was brought to emergency room. Denied any complaints of cough or sputum production. No fever no chills. Denies any recent illnesses. Laboratory data WBC 4.1 hemoglobin 12.1 platelets 140 sodium 139 potassium 4.3 chloride 109 bicarb is 24 BUN 20 and creatinine 0.71 and blood sugar is 109 Troponin x3 negative LDL 51.6 Chest x-ray showed normal chest. No change. EKG showed sinus rhythm with short MA interval. Review of Systems Constitutional: Patient denies any fever or chills . no Generalized weakness. Abdomen: Patient denied any nausea or vomiting or abd. pain Cardiovascular: Patient does complain of left precordial chest pain. No shortness of breath. No radiation. no palpitations. Respiratory: patient denied any cough . no sputum production. No shortness of breath Neurologic: Patient denied any numbness or tingling headache. Musculoskeletal: Patient denies any complaints of joint swelling or deformity. Skin: Negative Psychiatric: Negative Endocrine: No heat or cold intolerance. No recent weight gain. Genitourinary: No dysuria or hematuria. All other 14 point ROS negative except the above Past Medical History Past Medical History: Coronary Artery Disease (CAD), Chest Pain / Angina, Hyperlipidemia, Myocardial Infarction (VT), Osteoarthritis (OA) Additional Past Medical History / Comment(s): arthritis in back and bilateral knees,hx hiatal hernia Last Myocardial Infarction Date:: 2004 History of Any Multi-Drug Resistant Organisms: None Reported Past Surgical History: Bowel Resection, Heart Catheterization With Stent Additional Past Surgical History / Comment(s): Cardiac stents x 3, bowel surgery for pinpoint hole in bowel, L knee arthroscopy, colonoscopy/benign poly pectomies,hiatal hernia repair Past Anesthesia/Blood Transfusion Reactions: No Reported Reaction Date of Last Stent Placement:: 2013 Past Psychological History: Bipolar, Depression, PTSD, Schizophrenia Additional Psychological History / Comment(s): He states he goes to [facility]. Smoking Status: Current every day smoker Past Alcohol Use History: Occasional Additional Past Alcohol Use History / Comment(s): Pt states he started smoking in 1994 a pack will last him a month. Past Drug Use History: Cocaine, IV Drug Use, Marijuana, Opiates, Prescription Drug Abuse Additional Drug Use History / Comment(s): Pt states that he used MJ. Pt states that he has a history of cocaine, drinks a 12 pack per day. - Past Family History Father Family Medical History: Respiratory Disorder Additional Family Medical History / Comment(s): Father at age 64 from Black lung disease Mother Family Medical History: Hypertension, Myocardial Infarction (VT) Additional Family Medical History / Comment(s): Mother of an VT at 78yrs old. Brother(s) Family Medical History: Myocardial Infarction (VT) Additional Family Medical History / Comment(s): Patient has 10 brothers and 2 from myocardial infarction and had history of alcoholism. Sister(s) Family Medical History: Hypertension, Myocardial Infarction (VT) Additional Family Medical History / Comment(s): He has 7 sisters that are alive with no major medical problems. He has one son that has and one daughter that is alive and okay. Medications and Allergies Home Medications Medication Instructions Recorded Confirmed Type Aspirin 81 mg PO DAILY 30 Days tab 12/10/21 02/02/22 Rx Atorvastatin [Lipitor] 40 mg PO DAILY 30 Days tab 12/10/21 02/02/22 Rx Multivitamins, Thera [Multivitamin 1 each PO DAILY 30 Days tab 12/10/21 02/02/22 Rx (formulary)] Paliperidone IM [Invega Sustenna] 234 mg IM QMONTHLY #1 each 12/10/21 02/02/22 Rx Venlafaxine HCl ER [Effexor XR] 150 mg PO DAILY 30 Days cap 12/10/21 02/02/22 Rx Allergies Allergy/AdvReac Type Severity Reaction Status Date / Time blueberry Allergy Rash/Hives Verified 01/31/22 04:55 nitroglycerin Allergy Swelling Verified 01/31/22 04:55 Physical Exam Vitals: Vital Signs Temp Pulse Pulse Resp BP BP Pulse Ox 02/03/22 07:45 98.0 F 66 16 127/88 98 02/03/22 07:32 98.4 F 79 17 102/75 99 02/03/22 06:31 80 16 107/78 99 02/03/22 05:21 80 12 114/95 98 02/03/22 04:20 68 16 98 02/02/22 23:54 84 16 108/75 98 02/02/22 22:31 74 14 99 02/02/22 21:41 82 16 116/84 99 02/02/22 19:53 102 H 100 16 124/84 99 02/02/22 19:15 99.1 F 108 H 19 102/82 99 Intake and Output 02/02/22 02/03/22 02/03/22 22:59 06:59 14:59 Other: Weight 73.482 kg 73.482 kg PHYSICAL EXAMINATION: Patient is lying in the bed comfortably, no acute distress, awake alert and oriented.. HEENT: Normocephalic. Neck is supple. Pupils reactive. Nostrils clear. Oral ca vity is moist. Neck reveals no JVD, carotid bruits, or thyromegaly. CHEST EXAMINATION: Trachea is central. Symmetrical expansion. Lung chou clear to auscultation and percussion. CARDIAC: Normal S1, S2 with no gallops. No murmurs ABDOMEN: Soft. Bowel sounds present. Nontender. No organomegaly. No abdominal bruits. Extremities: reveal no edema. No clubbing or cyanosis Neurologically awake, alert, oriented x3 with well-coordinated movements. No focal deficits noted Skin: No rash or skin lesions. Psychiatric: Coperative. Nonsuicidal, Musculoskeletal: No joint swelling or deformity. Normal range of motion. Results CBC & Chem 7: 02/02/22 19:49 02/02/22 19:49 Labs: Abnormal Lab Results - Last 24 Hours (Table) 02/02/22 02/02/22 02/03/22 Range/Units 19:49 19:49 02:46 RBC 3.64 L (4.30-5.90) m/uL Hgb 12.2 L (13.0-17.5) gm/dL Hct 36.0 L (39.0-53.0) % Plt Count 140 L (150-450) k/uL Chloride 111 H (98-107) mmol/L Glucose 100 H (74-99) mg/dL HDL Cholesterol 108.00 H (40.00-60.00) mg/dL Thrombosis Risk Factor Assmnt - DVT/VTE Prophylaxis DVT/VTE Prophylaxis: Pharmacologic Prophylaxis ordered - Choose All That Apply Each Risk Factor Represents 2 Points: Age 61-74 years Thrombosis Risk Factor Assessment Total Risk Factor Score: 2 Thrombosis Risk Factor Assessment Level: Low Risk Assessment and Plan Assessment: Precordial chest pain. Rule out ACS CAD. stent placement in 2014 Hyperlipidemia Osteoarthritis Bipolar disorder, schizophrenia, PTSD Currently with a smoker History of IVDU and cocaine abuse Alcohol abuse DVT prophylaxis with heparin subcu Plan: Patient located on telemetry monitoring. Serial EKG and troponin x3 negative. Patient did have cardiac catheterization within the last 2 years and also had a stress test that did not Did not reveal any ischemia within the last 6 months. 2D echocardiogram was ordered. Patient advised to also take Motrin. Cardiology is on board. Continue with home medications and follow-up closely.
--- NOTE | 2022-02-04 03:13 | CONS ---
CONSULTATION PURPOSE FOR CONSULTATION: Evaluate for psychiatric concerns. HISTORY OF PRESENTING ILLNESS: The patient was admitted to the psychiatric unit, . He had made statements that he wished he was and stated that he was having hallucinations telling him to harm someone. He was diagnosed with major depression, alcohol and cocaine use disorder. He was started on a combination of Seroquel 50 mg twice a day and 400 mg at bedtime that had been a previous medication he was on, which he felt had been helpful for him, both as far as mood issues as well as for the potential of withdrawal symptoms that he was likely having. In addition, he was started on Remeron 7.5 mg a day. From a psychiatric standpoint, he did better on the and better still on the . His mood was improving. He had a better outlook. He was still having some auditory hallucinations, though was noting that they were less intense and less persistent compared to previous days. He was cooperative with care. On the , he developed left-sided chest pain and discomfort and was transferred to the ER and ultimately admitted to the medical floor. When I reviewed his case with nursing, they indicated that he has had 3 sets of cardiac enzymes that were all within normal limits. He does have a significant history of cardiac issues, though apparently his current cardiac status is stable. Nursing indicated that he likely is medically cleared to return to the psychiatric unit. When I talked to the patient today, he was doing fairly well. His only issue was that he had not been continued on his psychotropics. He said he did not sleep too well last night. He feels that once he gets back on his medications, he should be doing better. He had no issues with tolerance to his psychotropic medications. MENTAL STATUS EXAM: Patient gave good eye contact. Psychomotor activity was a little slowed. Speech was somewhat monotone and soft. He answered questions appropriately. His thoughts were clear. His affect was somewhat constricted. He had a quiet manner. He was somewhat down relating to being on the medical floor hoping to get back to Psychiatry. He stated that he saw good progress when he was on the psychiatric unit and is hopeful to move forward from there. There was no indication of thought disorder. He was denying thoughts of harm. Cognition was clear. ASSESSMENT: I will continue the current diagnosis and treatment plan. From a psychiatric standpoint, I will continue his psychotropics that he had been on in the psychiatric unit, namely Remeron 7.5 mg at bedtime and Seroquel 50 mg twice a day and 400 mg at bedtime. He was also on Invega 3 mg a day, which was started in anticipation of possible long-acting injectable. I will put the Invega on hold for now and then re- evaluate it once he is back in the psychiatric unit. The patient is appropriate for readmission to the psychiatric unit at this time when he is medically cleared. MMNAKIA / OLIVIA: [id number] /
[2022-02-04] MEDS: PANTOPRAZOLE 40 MG TABLET PO SCH (06:47)
[2022-02-04] MEDS: ASPIRIN 325 MG TAB PO SCH (07:51)
[2022-02-04] MEDS: QUEtiapine 50 MG TAB PO SCH ×2 (07:52→13:20)
[2022-02-04] MEDS: VENLAFAXINE HCL ER 75 MG CAP PO SCH (07:52)
[2022-02-04] MEDS ORDERED: ATORVASTATIN 40 MG TAB PO SCH (09:00)
--- NOTE | 2022-02-04 09:19 | P.PN ---
Subjective Progress Note Date: 02/04/22 HISTORY OF PRESENT ILLNESS This is a 61-year-old male with past medical history of coronary artery disease status post prior angioplasty and stent placement of the LAD, active tobacco use and dependence. Patient was admitted to the psychiatric unit and complained of chest discomfort and was admitted to the medical floor. He had no diaphoresis, dizziness, symptoms. EKG was a sinus rhythm with left anterior fascicular block. Chest x-ray was negative. 3 sets of cardiac enzymes were within normal limits. In 2019, patient underwent cardiac catheterization that revealed patent stent. He also was admitted to the hospital in August and underwent a Lexiscan that was negative for ischemia while the LV function was reported as being abnormal on that study. Echocardiogram done showed normal LV function. The patient does have history of drug abuse and alcohol abuse. Has been evaluated by cardiology and recommendations were for a 2-D echocardiogram. The echocardiogram revealed normal left ventricular systolic function. Patient continues to have of a complaints of chest discomfort which do not appear to be cardiac related. Vital signs reviewed and have been stable with heart rate in the 60s to 80s, blood pressure 114/75. Pulse ox 99% on room air. 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 PHYSICAL EXAMINATION Gen: This is a 61-year-old black male VS: reviewed HEENT: Head is atraumatic, normocephalic. Pupils equal, round. Sclerae is anicteric. NECK: Supple. No JVD. No lymphadenopathy. No thyromegaly. LUNGS: Clear to auscultation. No wheezes or rhonchi. No intercostal retractions. HEART: Regular rate and rhythm. No murmur. ABDOMEN: Soft. Bowel sounds are present. No masses. No tenderness. EXTREMITIES: No pedal edema. No calf tenderness. NEUROLOGICAL: Patient is awake, alert and oriented x3. Cranial nerves 2 through 12 are grossly intact. ASSESSMENT Chest pain noncardiac History of coronary artery disease with prior angioplasty and stent placement of the LAD PLAN Echocardiogram has been reviewed. Patient is cleared from cardiology to return to the psychiatric unit. Nurse practitioner note has been reviewed, I agree with documented findings and plan of care. Patient was seen and examined. Objective - Vital Signs Vital signs: Vital Signs Temp 97.4 F L 02/04/22 04:22 Pulse 72 02/04/22 04:22 Resp 16 02/04/22 04:22 BP 121/87 02/04/22 04:22 Pulse Ox 98 02/04/22 04:22 FiO2 Intake & Output 02/03/22 02/04/22 02/04/22 18:59 06:59 18:59 Weight 73.482 kg Other: Voiding Method Toilet # Voids 1 3 - Labs CBC & Chem 7: 02/02/22 19:49 02/02/22 19:49 Labs: Abnormal Lab Results - Last 24 Hours (Table) 02/03/22 Range/Units 02:46 HDL Cholesterol 108.00 H (40.00-60.00) mg/dL
[2022-02-04 14:56] VITALS: BP 112/75; TEMP 97.8
[2022-02-04 19:39] VITALS: PULSE 74
== END 2022-02-04 19:42 ==
LOC: EC 19:14 → 6NMEDSUR 21:36
PROVIDERS: ADMIT Internal Medicine; ATTEND Internal Medicine
DX: R07.89 Other chest pain (principal); I25.10 Atherosclerotic heart disease of native coronary artery without angina pectoris; I25.2 Old myocardial infarction; F20.9 Schizophrenia, unspecified; F31.9 Bipolar disorder, unspecified; F17.200 Nicotine dependence, unspecified, uncomplicated; E78.5 Hyperlipidemia, unspecified; I44.4 Left anterior fascicular block; F32.A Depression, unspecified; F43.10 Post-traumatic stress disorder, unspecified; F11.10 Opioid abuse, uncomplicated; F14.10 Cocaine abuse, uncomplicated; F12.10 Cannabis abuse, uncomplicated; F10.10 Alcohol abuse, uncomplicated; I34.81 Nonrheumatic mitral (valve) annulus calcification; I07.1 Rheumatic tricuspid insufficiency; I37.1 Nonrheumatic pulmonary valve insufficiency; Z95.5 Presence of coronary angioplasty implant and graft; Z79.82 Long term (current) use of aspirin; Z79.899 Other long term (current) drug therapy; Z82.49 Family history of ischemic heart disease and other diseases of the circulatory system; Z81.1 Family history of alcohol abuse and dependence; Z20.822 Contact with and (suspected) exposure to COVID-19
CPT/HCPCS: 99285; 36415; 94760; 93005 ×2; 93306; 80061; 80053; 83735; 84484 ×2; 85025; 85610; 85730; 87636; 71046; G0378 ×3

== ENCOUNTER 2022-02-04 19:17 | Inpatient (IN) | payer MEDICARE, MEDICAID ==
[2022-02-04] MEDS ORDERED: MAG HYDROX/AL HYDROX/SIMETH 30 ML CUP PO PRN (19:50)
[2022-02-04] MEDS ORDERED: MAGNESIUM HYDROXIDE 2,400 MG/10 ML CUP PO PRN (19:50)
[2022-02-04] MEDS ORDERED: ACETAMINOPHEN TAB 325 MG TAB PO PRN (19:50)
[2022-02-04] MEDS ORDERED: OLANZapine 5 MG TAB PO PRN (20:12)
[2022-02-04] MEDS ORDERED: OLANZapine 10 MG VIAL IM PRN (20:12)
[2022-02-04] MEDS ORDERED: hydrOXYzine HCL 50 MG/ML 1 ML VIAL IM PRN (20:14)
[2022-02-04] MEDS ORDERED: hydrOXYzine pamoate 25 MG CAP PO PRN (20:14)
[2022-02-04] MEDS: QUEtiapine 400 MG TAB PO SCH (20:52)
[2022-02-04] MEDS: MIRTAZAPINE 15 MG TAB PO SCH (20:52)
[2022-02-05] MEDS: ASPIRIN 325 MG TAB PO SCH (09:23)
[2022-02-05] MEDS: ATORVASTATIN 40 MG TAB PO SCH (09:23)
[2022-02-05] MEDS: QUEtiapine 50 MG TAB PO SCH ×2 (09:23→14:20)
[2022-02-05] MEDS: PANTOPRAZOLE 40 MG TABLET PO SCH (09:23)
[2022-02-05] MEDS: NICOTINE 14MG/24HR PATCH TRANSDERM SCH (09:26)
[2022-02-05] MEDS: VENLAFAXINE HCL ER 150 MG CAP PO SCH (09:29)
[2022-02-05 11:38] VITALS: BMI 23.8
--- NOTE | 2022-02-05 11:47 | P.HP ---
Psychiatric H&P - . H&P Date: 02/05/22 History & Physical: Allergies Allergy/AdvReac Type Severity Reaction Status Date / Time blueberry Allergy Rash/Hives Verified 01/31/22 04:55 nitroglycerin Allergy Swelling Verified 01/31/22 04:55 Vital Signs Temp 98.2 F 02/05/22 06:42 Pulse 84 02/05/22 06:42 Resp 16 02/05/22 06:42 BP 106/65 02/05/22 06:42 Pulse Ox FiO2 Intake & Output 02/04/22 02/05/22 02/05/22 18:59 06:59 18:59 Weight 73.4 kg 73.4 kg 02/05/22 11:47 IDENTIFYING DATA: Patient is a 61-year-old -Niue[place] male with significant history of cocaine abuse and alcohol abuse who presents to the hospital for chest pain and increasing suicidal ideation in the context of substance abuse and medication nonadherence. Patient was transferred to medical on 02/02/2022 after experiencing chest pain but once cleared was readmitted to our psychiatric unit. HPI: Patient presented to the hospital on 01/31/2022, endorsing suicidal ideation. The patient reported to the EPS nurse "I wish I was , having hallucinations that are telling me to harm someone." He reported no intention or plan or any particular person. He did however report that he used cocaine 3 days prior to this admission has been drinking 3-6 packs of beer every other week. While in the psychiatric unit and was subsequently admitted. Upon admission on our psychiatric unit, the patient reports that he continues to experience auditory hallucinations that are commanding him to kill himself or hurt others. He reported that he cannot stop thinking about wanting to be . He admited to not eating or taking care of himself at home. He was nonadherent with his psychiatric medications. On 02/02/2022, the patient was reporting chest pain. He was subsequently admitted medically due to concern for acute coronary symptoms. He was medically evaluated and cleared and Dr Randolph from psychiatry reassessed the patient on the medical floor. He was subsequently readmitted to our psychiatric unit on 02/05/2022. His medications were changed to Seroquel. The patient was last hospitalized on our psychiatric unit in September 2021. At that time, the patient was presenting with the same symptoms and was discharged with a plan to go to inpatient substance abuse rehabilitation at [place]. Patient was due for invega on 01/06/2022. Currently he denies suicidal or homicidal ideation. He reports no auditory or visual hallucinations. He states he has been feeling better over the past few days. PAST PSYCHIATRIC HISTORY: The patient has previous diagnoses of major depressive disorder, alcohol use disorder, cocaine use disorder, nicotine dependence. His last discharge on Invega Sustenna and Effexor. He was last admitted to our psychiatric unit in November 2021. He has had multiple inpatient psychiatric admissions. He is reportedly poor at following up in the outpatient setting. He does report prior attempts at suicide. ALLERGIES: Blueberry and nitroglycerin CHEMICAL DEPENDENCY HISTORY: Patient reports crack cocaine use 3 days prior to this admission. He also reports alcohol use. He approximates 3-6 packs of beer every other week. FAMILY PSYCHIATRIC/SUBSTANCE USE HISTORY: Patient states he lost 2 brothers to suicide SOCIAL HISTORY: Patient was born and raised in [place], [place].He has a 12th grade education. He reports previously working for the [employer] and retired approximately 15 years ago. He currently receives Social Security disability. Marital status is listed as however the patient states that he is currently . He reports he is Jain and has support from his temple community and his family. MENTAL STATUS EXAM: General Appearance: Patient appears to be stated age is alert, directable, and attempts to cooperate. Patient appears to have fair hygiene and grooming. Behavior: Patient is wandering the hallways. Normal psychomotor activity. Speech: Patient's speech is spontaneous. Mood/Affect: Patient reports their mood is "better", affect is congruent and eu thymic. Suicidality/Homicidality: Patient denies both suicidal and homicidal ideation. Perceptions: Patient denies any visual or auditory hallucinations. Though content/process: There is no evidence of any delusional thought content and thought process is linear and goal-directed. Memory and concentration: AOX3, grossly intact for the purposes of this session. Can spell "WORLD" backwards Judgment and insight: poor STRENGTHS/WEAKNESSES: Strength is that the patient has significant community and family support. Weakness is that patient engages in substance abuse and is nonadherent with treatment. INTELLECT: average IMPRESSIONS: Major depressive disorder, recurrent, severe, with psychotic features Alcohol use disorder Cocaine use disorder Nicotine dependence PLAN: -Patient is admitted under voluntary status to [facility] for stabilization of psychiatric symptoms and safety. Patient signed adult voluntary form and medication consent and is placed in patient's chart. -Medications : Will start patient on Seroquel 50 mg by mouth twice daily at 0900 and 1400 and 400 mg at bedtime. Remeron 7.5 mg by mouth at bedtime for insomnia/depression Effexor XR 150 mg daily for depression -Haldol and Vistaril PRN for agitation/aggression -CIWA protocol with Ativan PRN for ETOH withdrawal -Patient was counselled on substance abuse and desired to cut back on use -Patient was informed of the risks, benefits and side effects of the medication and patient verbally consented to taking the medications. Patient signed med consent form and was placed in chart. -Internal Medicine consult to perform medical evaluation and physical. -NRT - nicotine patch -SW on board for discharge planning. Encourage patient to participate in groups to work on coping skills.
[2022-02-05] MEDS: QUEtiapine 400 MG TAB PO SCH (20:41)
[2022-02-05] MEDS: MIRTAZAPINE 15 MG TAB PO SCH (20:41)
--- NOTE | 2022-02-06 01:09 | P.MDCNMH ---
History of Present Illness H&P Date: 02/05/22 Chief Complaint: Chest pain Patient is a 59-year-old male with a known history of coronary with history of stent placement in 2013, hyperlipidemia, osteoarthritis, bipolar disorder, schizophrenia and PTSD and currently everyday smoker and history of cocaine and IV drug abuse and drinks 12 pack/day was sent back to psychiatric unit after presenting with complaints of chest pain. Patient underwent 2D echocardiogram showed normal ejection fraction. Serial EKG and troponins were negative. Patient was transferred to mental health unit. Patient currently awake alert and oriented. No complaints of chest pain. No nausea vomiting abdominal pain or diarrhea. No cough or sputum production. Laboratory data reviewed. Patient is a poor historian. Review of Systems Constitutional: Patient denies any fever or chills . no Generalized weakness. Abdomen: Patient denied any nausea or vomiting or abd. pain Cardiovascular: Patient denies any chest pain or short of breath no palpitations. Respiratory: patient denied any cough . no sputum production. No shortness of breath Neurologic: Patient denied any numbness or tingling headache. Musculoskeletal: Patient denies any complaints of joint swelling or deformity. Skin: Negative Psychiatric: Denies any suicidal ideation. Endocrine: No heat or cold intolerance. No recent weight gain. Genitourinary: No dysuria or hematuria. All other 14 point ROS negative except the above Past Medical History Past Medical History: Coronary Artery Disease (CAD), Chest Pain / Angina, Hyperlipidemia, Myocardial Infarction (MD), Osteoarthritis (OA) Additional Past Medical History / Comment(s): arthritis in back and bilateral knees,hx hiatal hernia Last Myocardial Infarction Date:: 2004 History of Any Multi-Drug Resistant Organisms: None Reported Past Surgical History: Bowel Resection, Heart Catheterization With Stent Additional Past Surgical History / Comment(s): Cardiac stents x 3, bowel surgery for pinpoint hole in bowel, L knee arthroscopy, colonoscopy/benign polypectomies,hiatal hernia repair Past Anesthesia/Blood Transfusion Reactions: No Reported Reaction Date of Last Stent Placement:: 2013 Past Psychological History: Bipolar, Depression, PTSD, Schizophrenia Additional Psychological History / Comment(s): He states he goes to [facility]. Smoking Status: Current every day smoker Past Alcohol Use History: Occasional Additional Past Alcohol Use History / Comment(s): Pt states he started smoking in 1994 a pack will last him a month. Past Drug Use History: Cocaine, IV Drug Use, Marijuana, Opiates, Prescription Drug Abuse Additional Drug Use History / Comment(s): Pt states that he used MJ. Pt states that he has a history of cocaine, drinks a 12 pack per day. - Past Family History Father Family Medical History: Respiratory Disorder Additional Family Medical History / Comment(s): Father at age 64 from Black lung disease Mother Family Medical History: Hypertension, Myocardial Infarction (MD) Additional Family Medical History / Comment(s): Mother of an MD at 78yrs old. Brother(s) Family Medical History: Myocardial Infarction (MD) Additional Family Medical History / Comment(s): Patient has 10 brothers and 2 from myocardial infarction and had history of alcoholism. Sister(s) Family Medical History: Hypertension, Myocardial Infarction (MD) Additional Family Medical History / Comment(s): He has 7 sisters that are alive with no major medical problems. He has one son that has and one daughter that is alive and okay. Medications and Allergies Home Medications Medication Instructions Recorded Confirmed Type Aspirin 81 mg PO DAILY 30 Days tab 12/10/21 02/02/22 Rx Atorvastatin [Lipitor] 40 mg PO DAILY 30 Days tab 12/10/21 02/02/22 Rx Multivitamins, Thera [Multivitamin 1 each PO DAILY 30 Days tab 12/10/21 02/02/22 Rx (formulary)] Paliperidone IM [Invega Sustenna] 234 mg IM QMONTHLY #1 each 12/10/21 02/02/22 Rx Venlafaxine HCl ER [Effexor XR] 150 mg PO DAILY 30 Days cap 12/10/21 02/02/22 Rx Allergies Allergy/AdvReac Type Severity Reaction Status Date / Time blueberry Allergy Rash/Hives Verified 01/31/22 04:55 nitroglycerin Allergy Swelling Verified 01/31/22 04:55 Physical Exam Vitals: Vital Signs Temp Pulse Resp BP 02/05/22 06:42 98.2 F 84 16 106/65 Intake and Output 02/05/22 02/05/22 02/05/22 06:59 14:59 22:59 Other: Weight 73.4 kg PHYSICAL EXAMINATION: Patient is lying in the bed comfortably, no acute distress, awake alert and oriented.. HEENT: Normocephalic. Neck is supple. Pupils reactive. Nostrils clear. Oral cavity is moist. Neck reveals no JVD, carotid bruits, or thyromegaly. CHEST EXAMINATION: Trachea is central. Symmetrical expansion. Lung chou clear to auscultation and percussion. CARDIAC: Normal S1, S2 with no gallops. No murmurs ABDOMEN: Soft. Bowel sounds present. Nontender. No organomegaly. No abdominal bruits. Extremities: reveal no edema. No clubbing or cyanosis Neurologically awake, alert, oriented x3 with well-coordinated movements. No focal deficits noted Skin: No rash or skin lesions. Psychiatric: Coperative. Nonsuicidal, Musculoskeletal: No joint swelling or deformity. Normal range of motion. Cranial Nerve Examination - Cranial Nerves Cranial Nerve I- Olfactory: Intact Cranial Nerve II- Optic: Intact Cranial Nerve III- Oculomotor: Intact Cranial Nerve IV- Trochlear: Intact Cranial Nerve V- Trigeminal: Intact Cranial Nerve - Abducens: Intact Cranial Nerve VII- Facial: Intact Cranial Nerve VIII- Auditory: Intact Cranial Nerve IX- Glossopharyngeal: Intact Cranial Nerve X- Vagus: Intact Cranial Nerve XI- Accessory: Intact Cranial Nerve XII- Hypoglossal: Intact Assessment and Plan Assessment: Bipolar disorder, schizophrenia, PTSD Precordial chest pain. Ruled out ACS. 2D echocardiogram showed normal EF. CAD. stent placement in 2014 Hyperlipidemia OsteoarthritisCurrently with a smoker History of IVDU and cocaine abuse Alcohol abuse DVT prophylaxis with heparin subcu Plan: Patient will be continued on aspirin, statins. Continued current psychiatric medications and plan. Limit use of Motrin. We will continue to follow and further recommendations based on clinical course. Thank you for your consult.
[2022-02-06 07:20] VITALS: BP 116/73; PULSE 72; RESP 14; TEMP 98.4
[2022-02-06] MEDS: NICOTINE 14MG/24HR PATCH TRANSDERM SCH (08:28)
[2022-02-06] MEDS: QUEtiapine 50 MG TAB PO SCH ×2 (08:29→13:21)
[2022-02-06] MEDS: ATORVASTATIN 40 MG TAB PO SCH (08:29)
[2022-02-06] MEDS: VENLAFAXINE HCL ER 150 MG CAP PO SCH (08:29)
[2022-02-06] MEDS: PANTOPRAZOLE 40 MG TABLET PO SCH (08:29)
[2022-02-06] MEDS: ASPIRIN 325 MG TAB PO SCH (08:29)
--- NOTE | 2022-02-06 13:54 | P.DS ---
Providers Date of admission: 02/04/22 19:52 Expected date of discharge: 02/06/22 Attending physician: Pelon Orr MD Consults: 02/04/22 21:24 Consult Physician [facility]ine [facility] Reason/Comments: History and physical Do you want consulting provider notified?: Yes, Notify in am Primary care physician: Stated None - Discharge Diagnosis(es) (1) Major depressive disorder with psychotic features Current Visit: Yes Status: Acute Priority: High (2) Alcohol use disorder Current Visit: Yes Status: Chronic Priority: Medium (3) Cocaine use disorder Current Visit: Yes Status: Chronic Priority: Medium (4) Nicotine dependence Current Visit: Yes Status: Chronic Priority: Medium Hospital Course: Admission HPI: Patient is a 61-year-old -[place] male with significant history of cocaine abuse and alcohol abuse who presents to the hospital for chest pain and increasing suicidal ideation in the context of substance abuse and medication nonadherence. Patient was transferred to medical on 02/02/2022 after experiencing chest pain but once cleared was readmitted to our psychiatric unit. Patient presented to the hospital on 01/31/2022, endorsing suicidal ideation. The patient reported to the EPS nurse "I wish I was , having hallucinations that are telling me to harm someone." He reported no intention or plan or any particular person. He did however report that he used cocaine 3 days prior to this admission has been drinking 3-6 packs of beer every other week. While in the psychiatric unit and was subsequently admitted. Upon admission on our psychiatric unit, the patient reports that he continues to experience auditory hallucinations that are commanding him to kill himself or hurt others. He reported that he cannot stop thinking about wanting to be . He admited to not eating or taking care of himself at home. He was nonadherent with his psychiatric medications. On 02/02/2022, the patient was reporting chest pain. He was subsequently admitted medically due to concern for acute coronary symptoms. He was medically evaluated and cleared and Dr Randolph from psychiatry reassessed the patient on the medical floor. He was subsequently readmitted to our psychiatric unit on 02/05/2022. His medications were changed to Seroquel. The patient was last hospitalized on our psychiatric unit in September 2021. At that time, the patient was presenting with the same symptoms and was discharged with a plan to go to inpatient substance abuse rehabilitation at [place]. Patient was due for invega on 01/06/2022. Currently he denies suicidal or homicidal ideation. He reports no auditory or visual hallucinations. He states he has been feeling better over the past few days. The patient has previous diagnoses of major depressive disorder, alcohol use disorder, cocaine use disorder, nicotine dependence. His last discharge on Invega Sustenna and Effexor. He was last admitted to our psychiatric unit in November 2021. He has had multiple inpatient psychiatric admissions. He is reportedly poor at following up in the outpatient setting. He does report prior attempts at suicide. Hospital course: Upon admission to the unit patient was initially presenting as calm and cooperative and euthymic after his return from the medical floor. Patient was directable and agreeable to continue his treatment. The patient resumed his treatment for depressive disorder with psychotic features with the use of Seroquel, Remeron, and Effexor. On this regimen, the patient displayed significant improvement in regards to his initial target symptoms of psychosis, depression, and suicidal ideation. He tolerated these medications well and was evaluated for chest pain while he was on the medical floor. On the day of discharge, the patient is not reporting any suicidal or homicidal ideation, intention, and/or plan. He is not reporting any auditory or visual hallucinations. He is denying any paranoia or other delusions. The patient has been adherent with his medication and is not endorsing any significant side effects. The patient does have a significant history of substance abuse and was counseling great length on abstaining from all substances including cocaine, alcohol, marijuana, tobacco, and other illicit drugs. The patient was offered however declined inpatient substance abuse rehabilitation. The patient was counseled at length on importance of medication adherence appropriate outpatient follow-up. As additional longer met criteria for continued inpatient psychiatric hospitals age and, his subsequent to discharge. Mental status exam: General Appearance: Patient appears to be stated age is alert, pleasant, and cooperative. Patient is in no acute distress and has fair hygiene and grooming Behavior: Patient is calmly seated without any agitated behavior. Speech: Patient's speech is fluent and nonpressured. Mood/Affect: Patient reports their mood is "much better", affect is congruent and euthymic. Suicidality/Homicidality: Patient denies having any suicidal or homicidal ideation intent or plan. Perceptions: Patient denies any auditory or visual hallucinations. Though content/process: There is no evidence of any delusional thought content and thought process is linear and goal-directed. He is future oriented. Memory and concentration: AOX3, grossly intact for the purposes of this session. Can spell "WORLD" backwards correctly. Judgment and insight: Improved with guarded prognosis Impression: Major depressive disorder, recurrent, severe, with psychotic features Alcohol use disorder Cocaine use disorder Nicotine dependence Plan: -Continue with discharge today as patient has improved and stabilized psychiatrically and is not currently an imminent threat to himself and/or others. Patient will remain at chronically elevated risk for harm to self and/or others due to his history of nonadherence with treatment and polysubstance abuse. -Continue medications: Remeron 7.5 mg at bedtime for depression Seroquel 50 mg at 0900 and 1400 and 400 mg at bedtime for psychosis/mood Effexor XR for 150 mg daily for depression Aspirin and protonoix for chest pain. -Patient was counseled on the need for medication compliance and appropriate follow-up at mental health and also primary care for medical issues. Patient verbalized understanding and agreed. -Social work to arrange for and conduct family meeting to ensure safety upon discharge and answer any questions/concerns. Social work also to arrange for patients follow up appointments with [facility] for psychiatric care along with follow up with primary care provider. -Patient counseled on abstaining from recreational drugs and marijuana and alcohol. Was informed/educated on the adverse effects on their physical and mental health. Patient verbally agreed and understood. Patient was offered substance abuse treatment however declined at this time. -Patient was instructed to return to the hospital or seek immediate medical care if their psychiatric or medical symptoms do worsen or reoccur. -Psychoeducation and supportive therapy provided to patient. Risks and benefits of pharmacological treatment versus the risks and benefits of nontreatment weight and discussed. Informed consent discussion held. Common side effects of psychotropics discussed such as, but not limited to headache, GI disturbance, sexual dysfunction, movement disorders, sedation, and orthostatic hypotension. Life threatening and blackbox warnings of prescribed medications also discussed. Potential risks of operating a vehicle or heavy machinery discussed with patient at length. Advised on importance of compliance and a reliable and responsible manner. Patient advised to review FDA consumer labeling of all medications prior to taking. Patient verbalized understanding of potential risks, and agrees with current treatment plan. Patient advised to medically contact physician/emergency personnel if any acute changes in condition occur. Vital Signs Temp 98.4 F 02/06/22 06:49 Pulse 72 02/06/22 06:49 Resp 14 02/06/22 06:49 BP 116/73 02/06/22 06:49 Pulse Ox FiO2 Intake & Output 02/05/22 02/06/22 02/06/22 18:59 06:59 18:59 Weight 73.4 kg Allergies Allergy/AdvReac Type Severity Reaction Status Date / Time blueberry Allergy Rash/Hives Verified 01/31/22 04:55 nitroglycerin Allergy Swelling Verified 01/31/22 04:55 Patient Condition at Discharge: Stable Plan - Discharge Summary Discharge Rx Participant: No New Discharge Prescriptions: New Mirtazapine [Remeron] 7.5 mg PO HS 30 Days tab QUEtiapine [SEROquel] 50 mg PO BID@0900,1400 30 Days tab Aspirin 325 mg PO DAILY 30 Days tab Venlafaxine HCl ER [Effexor XR] 150 mg PO DAILY 30 Days cap Pantoprazole [Protonix] 40 mg PO AC-BRKFST 30 Days tab QUEtiapine [SEROquel] 400 mg PO HS 30 Days tab Continue Atorvastatin [Lipitor] 40 mg PO DAILY 30 Days tab Multivitamins, Thera [Multivitamin (formulary)] 1 each PO DAILY 30 Days tab Discontinued Paliperidone IM [Invega Sustenna] 234 mg IM QMONTHLY #1 each Aspirin 81 mg PO DAILY 30 Days tab Venlafaxine HCl ER [Effexor XR] 150 mg PO DAILY 30 Days cap Discharge Medication List Atorvastatin [Lipitor] 40 mg PO DAILY 30 Days tab 12/10/21 [Rx] Multivitamins, Thera [Multivitamin (formulary)] 1 each PO DAILY 30 Days tab 12/10/21 [Rx] Aspirin 325 mg PO DAILY 30 Days tab 02/06/22 [Rx] Mirtazapine [Remeron] 7.5 mg PO HS 30 Days tab 02/06/22 [Rx] Pantoprazole [Protonix] 40 mg PO AC-BRKFST 30 Days tab 02/06/22 [Rx] QUEtiapine [SEROquel] 50 mg PO BID@0900,1400 30 Days tab 02/06/22 [Rx] QUEtiapine [SEROquel] 400 mg PO HS 30 Days tab 02/06/22 [Rx] Venlafaxine HCl ER [Effexor XR] 150 mg PO DAILY 30 Days cap 02/06/22 [Rx] Follow up Appointment(s)/Referral(s): [facility] [Outside] - 02/11/22 3:30 pm (Jodi on February 11, 2022 @ 3:30) [facility] [NON-STAFF] - 1 Week Patient Instructions/Handouts: Coronary Artery Disease (DC), Depression (DC) Activity/Diet/Wound Care/Special Instructions: Avoid the use of street drugs and alcohol. Take all prescriptions as prescribed. When you are in need of refills on your medications, please contact your medical provider and/or outpatient psychiatrist to have this done. Please go to scheduled outpatient appointment for aftercare treatment. If symptoms return or become worse, call the crisis line at and/or go to the nearest emergency room for evaluation Discharge Disposition: HOME SELF-CARE
== END 2022-02-06 14:25 | disposition home or self-care (01) | DRG 885 ==
LOC: 3MHU 19:52
PROVIDERS: ADMIT Psychiatry & Neurology Psychiatry; ATTEND Psychiatry & Neurology Psychiatry
DX: F33.3 Major depressive disorder, recurrent, severe with psychotic symptoms (principal); R45.851 Suicidal ideations; F17.210 Nicotine dependence, cigarettes, uncomplicated; E78.5 Hyperlipidemia, unspecified; M19.90 Unspecified osteoarthritis, unspecified site; R07.89 Other chest pain; I25.10 Atherosclerotic heart disease of native coronary artery without angina pectoris; M17.0 Bilateral primary osteoarthritis of knee; M19.09 Primary osteoarthritis, other specified site; F10.10 Alcohol abuse, uncomplicated; F14.10 Cocaine abuse, uncomplicated; Z79.899 Other long term (current) drug therapy; Z91.14 Patient's other noncompliance with medication regimen; Z71.6 Tobacco abuse counseling; Z71.51 Drug abuse counseling and surveillance of drug abuser; Z88.8 Allergy status to other drugs, medicaments and biological substances; Z91.018 Allergy to other foods; Z87.19 Personal history of other diseases of the digestive system

== ENCOUNTER → 2022-04-25 | Outpatient (CLI) | payer MEDICARE, OTHER ==
--- NOTE | 2022-04-28 11:17 | MR ---
EXAMINATION TYPE: MR abdomen wo/w con DATE OF EXAM: 04/25/2022 2:46 PM INDICATION: Patient age:Male; 61 years old; Reason for study: D41.02 NEOPLASM OF UNCERTAIN BEHAVIOR OF LEFT KIDNEY. NO SYMPTOMS, ABN US/CT COMPARISON: None TECHNIQUE: Multiplanar multi-sequence imaging was performed without contrast. Post contrast imaging was performed. Post IV contrast subtraction images were also submitted for review. IV Contrast: 7ML cc Gadavist FINDINGS: LOWER CHEST: No gross irregularity. ABDOMEN Liver: Scattered high T2 hepatic cysts, the largest measuring 2.1 x 1.8 cm with thin septation versus adjacent cyst. No abnormal postcontrast enhancement. Gallbladder and Bile ducts: No evidence of ductal dilation or evidence for cholelithiasis.. Pancreas: No ductal dilation or abnormal enhancement. Spleen: Unremarkable. Adrenal glands: Unremarkable. Kidneys: Right kidney: No evidence for mass or [place] nephrosis. Left kidney: Low T2/intermediate T1 signal lesion measuring 3.6 x 3.7 x 3.2 cm. Subtraction imaging d emonstrated no evidence for enhancement. Additional high T1 intrinsic signal left renal cyst measuring 1.5 cm, Subtraction imaging demonstrate d no evidence for enhancement. Stomach and Bowel: Unremarkable as visualized. Peritoneum: No evidence of pneumoperitoneum or free fluid. Vasculature: Unremarkable. No aortic aneurysm. Musculoskeletal: The osseous structures appear intact. Levoscoliosis apex L3. Lymph Nodes: No gross evidence for lymphadenopathy. Abdominal wall: Small fat-containing umbilical hernia. IMPRESSION: 1. There are 2 left renal lesions which do not demonstrate postcontrast enhancement which was confir med on subtraction imaging and are most compatible with hemorrhagic/proteinaceous cysts. 2. Scattered simple appearing hepatic cyst.
== END | disposition home or self-care (01) ==
LOC: RADMRIMAIN 13:42
PROVIDERS: ATTEND Urology
DX: D41.02 Neoplasm of uncertain behavior of left kidney (principal); N28.89 Other specified disorders of kidney and ureter; K76.89 Other specified diseases of liver
CPT/HCPCS: 74183; A9585

== ENCOUNTER → 2022-04-25 | Outpatient (CLI) | payer MEDICARE, OTHER | END | disposition home or self-care (01) | LOC: LABWHC1 14:39 | PROVIDERS: ATTEND Urology | DX: N40.1 Benign prostatic hyperplasia with lower urinary tract symptoms (principal); N13.8 Other obstructive and reflux uropathy | CPT/HCPCS: 36415; 84153 ==

== ENCOUNTER 2022-06-30 22:42 | Emergency (ER) | payer MEDICARE, OTHER ==
[2022-07-01] MEDS ORDERED: Acetaminophen-Codeine 300-30mg TAB PO STA (00:30)
[2022-07-01] MEDS ORDERED: SODIUM CHLORIDE 0.9% 1,000 ML IV ONE (00:30)
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
[2022-07-01 02:17] LABS: ALT 20 U/L (4-49); AST 32 U/L (17-59); African American GFR (CKD) >90 (>60 ml/min/1.73 sqM); Albumin 4.6 g/dL (3.5-5.0); Alkaline Phosphatase 49 U/L (38-126); Anion Gap 13 mmol/L; Blood Urea Nitrogen 6 mg/dL (9-20); Calcium 9.5 mg/dL (8.4-10.2); Carbon Dioxide 24 mmol/L (22-30); Chloride 105 mmol/L (98-107); Glucose 93 mg/dL (74-99); Non-African American GFR(CKD) >90 (>60 ml/min/1.73 sqM); Potassium 4.5 mmol/L (3.5-5.1); Sodium 142 mmol/L (137-145); Total Bilirubin 0.7 mg/dL (0.2-1.3)
[2022-07-01] MEDS ORDERED: MORPHINE SULFATE 2 MG/ML SYRINGE IVP STA (02:22)
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
[2022-07-01 03:00] LABS: Basophils % (A) 1 %; Eosinophils % (A) 0 %; HCT 39.6 % (39.0-53.0); HGB 12.8 gm/dL (13.0-17.5); Lymphocytes # (A) 1.5 k/uL (1.0-4.8); Lymphocytes % (A) 34 %; MCH 32.3 pg (25.0-35.0); MCHC 32.3 g/dL (31.0-37.0); Macrocytosis Slight; Mean Platelet Volume 8.5; Monocytes # (A) 0.4 k/uL (0-1.0); Monocytes % (A) 9 %; Neutrophils # (A) 2.4 k/uL (1.3-7.7); Neutrophils % (A) 53 %; Platelet Count 212 k/uL (150-450); RBC 3.96 m/uL (4.30-5.90); RDW 14.3 % (11.5-15.5); WBC 4.5 k/uL (3.8-10.6)
[2022-07-01] MEDS ORDERED: ACET/COD 300 MG/30 MG STARTER PACK 6 TAB BTL PO STA (03:40)
[2022-07-01 04:01] VITALS: BP 125/80; PULSE 82; RESP 20; TEMP 97.5
== END 2022-07-01 04:22 | disposition home or self-care (01) ==
LOC: EC 22:42
DX: S22.41XA Multiple fractures of ribs, right side, initial encounter for closed fracture (principal); I25.10 Atherosclerotic heart disease of native coronary artery without angina pectoris; I25.2 Old myocardial infarction; F17.200 Nicotine dependence, unspecified, uncomplicated; Z95.5 Presence of coronary angioplasty implant and graft; Z91.018 Allergy to other foods; Z88.8 Allergy status to other drugs, medicaments and biological substances; Y04.0XXA Assault by unarmed brawl or fight, initial encounter
CPT/HCPCS: 99285; 96374; 96361; 36415; 80053; 84484; 85025; 71046; J2270

== ENCOUNTER 2022-07-02 00:44 | Inpatient (IN) | payer MEDICARE, OTHER ==
--- NOTE | 2022-07-02 02:29 | XR ---
EXAM: XR Chest, 2 Views CLINICAL HISTORY: Chest Pain TECHNIQUE: Frontal and lateral views of the chest. COMPARISON: 07/01/2022 at 0122 hrs. FINDINGS: Lungs: Curvilinear and horizontal subsegmental changes at the lung bases are similar to the previous exam. The lungs are otherwise clear. The pulmonary vasculature demonstrates no significant abnormality. Pleural space: Unremarkable. No pneumothorax. No large pleural effusion. Heart: Unremarkable. No cardiomegaly. Mediastinum: The mediastinal contours are stable. The trachea is midline. Postsurgical changes noted in the region of the gastroesophageal junction, stable. Bones/joints: Unremarkable. IMPRESSION: Bibasilar atelectasis or scarring, stable in appearance. No focal consolidation or significant alteration from the previous examination.
[2022-07-02 02:41] LABS: ALT 20 U/L (4-49); AST 31 U/L (17-59); African American GFR (CKD) >90 (>60 ml/min/1.73 sqM); Albumin 4.7 g/dL (3.5-5.0); Alkaline Phosphatase 53 U/L (38-126); Anion Gap 14 mmol/L; Blood Urea Nitrogen 3 mg/dL (9-20); Calcium 9.7 mg/dL (8.4-10.2); Carbon Dioxide 24 mmol/L (22-30); Chloride 98 mmol/L (98-107); Glucose 105 mg/dL (74-99); INR 0.9 (<1.2); Magnesium 1.9 mg/dL (1.6-2.3); Non-African American GFR(CKD) >90 (>60 ml/min/1.73 sqM); Partial Thromboplastin Time 24.4 sec (22.0-30.0); Prothrombin Time 9.8 sec (9.0-12.0); Sodium 136 mmol/L (137-145); Total Bilirubin 0.9 mg/dL (0.2-1.3); Total Protein 8.2 g/dL (6.3-8.2)
[2022-07-02 02:50] LABS: Basophils % (A) 0 %; Eosinophils % (A) 1 %; HCT 38.9 % (39.0-53.0); HGB 12.4 gm/dL (13.0-17.5); Lymphocytes # (A) 1.8 k/uL (1.0-4.8); Lymphocytes % (A) 35 %; MCH 31.6 pg (25.0-35.0); MCHC 31.8 g/dL (31.0-37.0); MCV 99.2 fL (80.0-100.0); Mean Platelet Volume 8.6; Monocytes # (A) 0.4 k/uL (0-1.0); Monocytes % (A) 8 %; Neutrophils # (A) 2.7 k/uL (1.3-7.7); Neutrophils % (A) 52 %; Platelet Count 184 k/uL (150-450); RBC 3.92 m/uL (4.30-5.90); RDW 14.4 % (11.5-15.5); WBC 5.2 k/uL (3.8-10.6)
[2022-07-02] MEDS ORDERED: ASPIRIN 325 MG TAB PO STA (03:31)
[2022-07-02] MEDS ORDERED: MORPHINE SULFATE 4 MG/ML SYRINGE IVP STA (03:36)
--- NOTE | 2022-07-02 03:37 | ED ---
General Adult HPI - General Chief complaint: Chest Pain Stated complaint: rib pain Time Seen by Provider: 07/02/22 02:36 Source: patient, RN notes reviewed, old records reviewed Mode of arrival: EMS Limitations: no limitations - History of Present Illness Initial comments: 61-year-old male presenting for evaluation of chest pain. Patient does have history of coronary artery disease as well as recent diagnosis of rib fracture. He states that he was seen in the emergency department yesterday and diagnosed with right lateral nondisplaced rib fracture. He states that he does have some minimal pain at the site of fractures which was caused by his granddaughter jumping on him but he has also developed a substernal central chest pain which is not related to his right lateral chest pain. He states he had some nausea and diaphoresis. No abdominal pain. No fever. No cough. - Related Data Home Medications Medication Instructions Recorded Confirmed Aspirin EC [Ecotrin Low Dose] 81 mg PO DAILY 07/02/22 07/02/22 Atorvastatin [Lipitor] 20 mg PO DAILY 07/02/22 07/02/22 HYDROcodone/APAP 10-325MG [[place] 1 tab PO Q6HR 07/02/22 07/02/22 10-325] Naloxone HCl [Narcan] 4 mg NASAL DIRECTED PRN 07/02/22 07/02/22 Allergies Allergy/AdvReac Type Severity Reaction Status Date / Time blueberry Allergy Rash/Hives Verified 07/02/22 07:42 nitroglycerin Allergy Swelling Verified 07/02/22 07:42 Review of Systems ROS Statement: Those systems with pertinent positive or pertinent negative responses have been documented in the HPI. ROS Other: All systems not noted in ROS Statement are negative. Past Medical History Past Medical History: Coronary Artery Disease (CAD), Chest Pain / Angina, Hyperlipidemia, Myocardial Infarction (HI), Osteoarthritis (OA) Additional Past Medical History / Comment(s): arthritis in back and bilateral knees,hx hiatal hernia Last Myocardial Infarction Date:: 2004 History of Any Multi-Drug Resistant Organisms: None Reported Past Surgical History: Bowel Resection, Heart Catheterization With Stent Additional Past Surgical History / Comment(s): Cardiac stents x 3, bowel surgery for pinpoint hole in bowel, L knee arthroscopy, colonoscopy/benign polypectomies,hiatal hernia repair Past Anesthesia/Blood Transfusion Reactions: No Reported Reaction Date of Last Stent Placement:: 2013 Past Psychological History: Bipolar, Depression, PTSD, Schizophrenia Smoking Status: Current every day smoker Past Alcohol Use History: Occasional Past Drug Use History: Cocaine, IV Drug Use, Marijuana, Opiates, Prescription Drug Abuse - Past Family History Father Family Medical History: Respiratory Disorder Additional Family Medical History / Comment(s): Father at age 64 from Black lung disease Mother Family Medical History: Hypertension, Myocardial Infarction (HI) Additional Family Medical History / Comment(s): Mother of an HI at 78yrs old. Brother(s) Family Medical History: Myocardial Infarction (HI) Additional Family Medical History / Comment(s): Patient has 10 brothers and 2 from myocardial infarction and had history of alcoholism. Sister(s) Family Medical History: Hypertension, Myocardial Infarction (HI) Additional Family Medical History / Comment(s): He has 7 sisters that are alive with no major medical problems. He has one son that has and one daughter that is alive and okay. General Exam Limitations: no limitations General appearance: alert, in no apparent distress Head exam: Present: atraumatic, normocephalic Eye exam: Present: normal appearance, PERRL ENT exam: Present: normal exam Neck exam: Present: normal inspection. Absent: tenderness, meningismus Respiratory exam: Present: normal lung sounds bilaterally. Absent: respiratory distress, wheezes Cardiovascular Exam: Present: regular rate, normal rhythm GI/Abdominal exam: Present: soft. Absent: distended, tenderness, guarding, rebound Extremities exam: Present: normal inspection, normal capillary refill. Absent: pedal edema Neurological exam: Present: alert, oriented X3 Skin exam: Present: warm, dry, intact Course Vital Signs 07/02/22 07/02/22 07/02/22 01:20 03:15 06:00 Temperature 98.2 F Pulse Rate 76 66 59 L Respiratory 18 16 14 Rate Blood Pressure 106/73 130/86 119/80 O2 Sat by Pulse 96 98 97 Oximetry 07/02/22 07/02/22 07/02/22 07:30 08:00 08:30 Temperature Pulse Rate 70 59 L 72 Respiratory 16 18 18 Rate Blood Pressure 120/88 120/88 111/81 O2 Sat by Pulse 98 98 98 Oximetry 07/02/22 07/02/22 07/02/22 09:00 10:00 11:00 Temperature Pulse Rate 56 L 64 74 Respiratory 18 19 16 Rate Blood Pressure 111/81 116/86 129/76 O2 Sat by Pulse 97 98 99 Oximetry 07/02/22 07/02/22 07/02/22 12:00 13:00 14:00 Temperature Pulse Rate 55 L 60 56 L Respiratory 18 16 17 Rate Blood Pressure 156/92 148/96 128/92 O2 Sat by Pulse 100 99 99 Oximetry 07/02/22 07/02/22 07/02/22 15:21 17:52 18:12 Temperature Pulse Rate 65 60 57 L Respiratory 14 15 15 Rate Blood Pressure 127/84 151/100 134/92 O2 Sat by Pulse 98 98 98 Oximetry Medical Decision Making - Medical Decision Making Was pt. sent in by a medical professional or institution (, PA, [employer], urgent care, hospital, or group home...) When possible be specific @ -No Did you speak to anyone other than the patient for history (EMS, parent, family, police, friend...)? What history was obtained from this source @ -No Did you review nursing and triage notes (agree or disagree)? Why? @ -I reviewed and agree with nursing and triage notes Were old charts reviewed (outside hosp., previous admission, EMS record, old EKG, old radiological studies, urgent care reports/EKG's, group home records)? Report findings @ -No old charts were reviewed Differential Diagnosis (chest pain, altered mental status, abdominal pain women, abdominal pain men, vaginal bleeding, weakness, fever, dyspnea, syncope, headache, dizziness, GI bleed, back pain, seizure, CVA, palpatations, mental health, musculoskeletal)? @ -not applicable EKG interpreted by me (3pts min.). @Sinus rhythm rate 70, NJ interval 161, QRS duration 92, QTC [address] segment elevation. X-rays interpreted by me (1pt min.). @Negative for displaced rib fracture, no pneumothorax, no focal pneumonia CT interpreted by me (1pt min.). @ -None done U/S interpreted by me (1pt. min.). @ -None done What testing was considered but not performed or refused? (CT, X-rays, U/S, labs)? Why? @ -None What meds were considered but not given or refused? Why? @ -None Did you discuss the management of the patient with other professionals (professionals i.e. , PA, [employer], lab, RT, psych nurse, social media job titles, shake feeder, teacher, chief scientific officer, ed case manager)? Give summary @ -[facility] Was smoking cessation discussed for >3mins.? @ -No Was critical care preformed (if so, how long)? @ -No Were there social determinants of health that impacted care today? How? (Homelessness, low income, unemployed, alcoholism, drug addiction, transportation, low edu. Level, literacy, decrease access to med. care, fci, rehab)? @ -No Was there de-escalation of care discussed even if they declined (Discuss DNR or withdrawal of care, Hospice)? DNR status @ -No What co-morbidities impacted this encounter? (DM, HTN, Smoking, COPD, CAD, Cancer, CVA, ARF, Chemo, Hep., AIDS, mental health diagnosis, sleep apnea, morbid obesity)? @Coronary artery disease Was patient admitted / discharged? Hospital course, mention meds given and route, prescriptions, significant lab abnormalities, going to OR and other pert inent info. @ -61-year-old male presenting for evaluation of chest pain. His pain currently is central chest and not related to his known rib fractures. Given his history of coronary artery disease, chest pain workup was initiated. EKG was sinus rhythm without ST segment elevation. He had a normal CBC, normal CMP. He did have a very minimal troponin elevation is 0.036. This level will be trended. He is given aspirin and morphine in the emergency department. His chest pain is minimal at the time of reevaluation. Undiagnosed new problem with uncertain prognosis? @ -No Drug Therapy requiring intensive monitoring for toxicity (Heparin, Nitro, Insulin, Cardizem)? @ -No Were any procedures done? @ -No Diagnosis/symptom? @Chest pain, rule out ACS Acute, or Chronic, or Acute on Chronic? @ -Acute on chronic Uncomplicated (without systemic symptoms) or Complicated (systemic symptoms)? @ -default Side effects of treatment? @ -No Exacerbation, Progression, or Severe Exacerbation? @ -No Poses a threat to life or bodily function? How? (Chest pain, [place], HI, pneumonia, PE, COPD, DKA, ARF, appy, cholecystitis, CVA, Diverticulitis, Homicidal, Suicidal, threat to staff... and all critical care pts) @ -Yes, chest pain - Lab Data Result diagrams: 07/02/22 01:51 07/02/22 01:51 Lab Results 07/02/22 07/02/22 07/02/22 Range/Units 01:51 01:51 01:51 WBC 5.2 (3.8-10.6) k/uL RBC 3.92 L (4.30-5.90) m/uL Hgb 12.4 L (13.0-17.5) gm/dL Hct 38.9 L (39.0-53.0) % MCV 99.2 (80.0-100.0) fL MCH 31.6 (25.0-35.0) pg MCHC 31.8 (31.0-37.0) g/dL RDW 14.4 (11.5-15.5) % Plt Count 184 (150-450) k/uL MPV 8.6 Neutrophils % 52 % Lymphocytes % 35 % Monocytes % 8 % Eosinophils % 1 % Basophils % 0 % Neutrophils # 2.7 (1.3-7.7) k/uL Lymphocytes # 1.8 (1.0-4.8) k/uL Monocytes # 0.4 (0-1.0) k/uL Eosinophils # 0.0 (0-0.7) k/uL Basophils # 0.0 (0-0.2) k/uL PT 9.8 (9.0-12.0) sec INR 0.9 (<1.2) APTT 24.4 (22.0-30.0) sec Sodium 136 L (137-145) mmol/L Potassium 4.0 (3.5-5.1) mmol/L Chloride 98 (98-107) mmol/L Carbon Dioxide 24 (22-30) mmol/L Anion Gap 14 mmol/L BUN 3 L (9-20) mg/dL Creatinine 0.59 L (0.66-1.25) mg/dL Est GFR (CKD-EPI)AfAm >90 (>60 ml/min/1.73 sqM) Est GFR (CKD-EPI)NonAf >90 (>60 ml/min/1.73 sqM) Glucose 105 H (74-99) mg/dL Calcium 9.7 (8.4-10.2) mg/dL Magnesium 1.9 (1.6-2.3) mg/dL Total Bilirubin 0.9 (0.2-1.3) mg/dL AST 31 (17-59) U/L ALT 20 (4-49) U/L Alkaline Phosphatase 53 (38-126) U/L Troponin I (0.000-0.034) ng/mL Total Protein 8.2 (6.3-8.2) g/dL Albumin 4.7 (3.5-5.0) g/dL 07/02/22 Range/Units 01:51 WBC (3.8-10.6) k/uL RBC (4.30-5.90) m/uL Hgb (13.0-17.5) gm/dL Hct (39.0-53.0) % MCV (80.0-100.0) fL MCH (25.0-35.0) pg MCHC (31.0-37.0) g/dL RDW (11.5-15.5) % Plt Count (150-450) k/uL MPV Neutrophils % % Lymphocytes % % Monocytes % % Eosinophils % % Basophils % % Neutrophils # (1.3-7.7) k/uL Lymphocytes # (1.0-4.8) k/uL Monocytes # (0-1.0) k/uL Eosinophils # (0-0.7) k/uL Basophils # (0-0.2) k/uL PT (9.0-12.0) sec INR (<1.2) APTT (22.0-30.0) sec Sodium (137-145) mmol/L Potassium (3.5-5.1) mmol/L Chloride (98-107) mmol/L Carbon Dioxide (22-30) mmol/L Anion Gap mmol/L BUN (9-20) mg/dL Creatinine (0.66-1.25) mg/dL Est GFR (CKD-EPI)AfAm (>60 ml/min/1.73 sqM) Est GFR (CKD-EPI)NonAf (>60 ml/min/1.73 sqM) Glucose (74-99) mg/dL Calcium (8.4-10.2) mg/dL Magnesium (1.6-2.3) mg/dL Total Bilirubin (0.2-1.3) mg/dL AST (17-59) U/L ALT (4-49) U/L Alkaline Phosphatase (38-126) U/L Troponin I 0.036 H* (0.000-0.034) ng/mL Total Protein (6.3-8.2) g/dL Albumin (3.5-5.0) g/dL Disposition Clinical Impression: Chest pain, Chronic chest pain Disposition: ADMITTED IP TO THIS HOSP Condition: Stable Is patient prescribed a controlled substance at d/c from ED?: No Time of Disposition: 04:00
[2022-07-02] MEDS ORDERED: NALOXONE 0.4 MG/ML 1 ML VIAL IV PRN (03:55)
[2022-07-02] MEDS ORDERED: ONDANSETRON 4 MG/2 ML VIAL IVP PRN (03:55)
[2022-07-02] MEDS: SODIUM CHLORIDE 0.9% 1,000 ML IV SCH ×2 (04:01→20:27)
[2022-07-02] MEDS ORDERED: ATORVASTATIN 80 MG TAB PO STA (05:21)
--- NOTE | 2022-07-02 05:23 | P.HPIM ---
History of Present Illness H&P Date: 07/02/22 And polysubstance abuse who presents to the emergency room with complaints of chest discomfort. The patient reports that he has been experiencing intermittent chest discomfort for the past several days. The patient reports that his granddaughter had jumped onto him when she accidentally caused to right-sided rib fracture 2 days ago. The patient was seen in the emergency room and was discharged home. He reports however that earlier today he also began having substernal chest tightness, 6 out of 10 on maximal intensity, intermittent, with some associated diaphoresis without shortness of breath. He reports that this is somewhat similar to his prior episodes of CAD. He also reports fever and chills over the past 3 days. Denies cough. Denies vomiting or diarrhea. Patient denied recent substance use. EKG in the emergency room revealed sinus rhythm at 70 bpm with T-wave inversion in lead [address]/T-wave changes noted as reviewed by me. Chest x-ray revealed stable bibasilar atelectasis. Laboratory evaluation revealed a hemoglobin of 12.4, troponin 0.036, BUN 30, creatinine 0.59. ED documentation reviewed and case discussed with ED provider. Review of systems: Pertinent positives and negatives as discussed in HPI, a complete review of systems was performed and all other systems are negative. Physical examination: Vital signs reviewed General: non toxic, no distress, appears at stated age, normal weight Derm: no unusual rashes/lesions, warm Head: atraumatic, normocephalic, symmetric Eyes: EOMI, no lid lag, anicteric sclera, pupils equal round reactive to light ENT: Nose and ears atraumatic Neck: No cervical lymphadenopathy, trachea midline, supple Mouth: no lip lesion, mucus membranes moist Cardiovascular: S1S2 reg, no murmur, positive dorsalis pedis pulse bilateral, no edema Lungs: CTA bilateral, no rhonchi, no rales, no accessory muscle use Abdominal: soft, nontender to palpation, no guarding Ext: muscle strength 5 out of 5 in all 4 extremities grossly, no gross muscle atrophy, no contractures, Neuro: CN II-XI grossly intact, no gross focal neuro deficits Psych: Alert, oriented, appropriate affect Assessment: Chest pain, rule out ACS Imaging: EKG in the emergency room revealed sinus rhythm at 70 bpm with T-wave inversion in lead [address]/T-wave changes noted as reviewed by me. Chest x-ray revealed stable bibasilar atelectasis. Data Review: Laboratory evaluation revealed a hemoglobin of 12.4, troponin 0.036, BUN 30, creatinine 0.59. Plan: Cardiology consult Trend troponin Cardiac monitoring Continue with aspirin, statin DVT prophylaxis: Heparin subq The patient is admitted with an anticipated less than 2 midnight stay for evaluation of chest pain CODE STATUS: Full Code Discussed with: Patient Anticipated discharge place: Home Past Medical History Past Medical History: Coronary Artery Disease (CAD), Chest Pain / Angina, Hyperlipidemia, Myocardial Infarction (VT), Osteoarthritis (OA) Additional Past Medical History / Comment(s): arthritis in back and bilateral knees,hx hiatal hernia Last Myocardial Infarction Date:: 2004 History of Any Multi-Drug Resistant Organisms: None Reported Past Surgical History: Bowel Resection, Heart Catheterization With Stent Additional Past Surgical History / Comment(s): Cardiac stents x 3, bowel surgery for pinpoint hole in bowel, L knee arthroscopy, colonoscopy/benign polypectomies,hiatal hernia repair Past Anesthesia/Blood Transfusion Reactions: No Reported Reaction Date of Last Stent Placement:: 2013 Past Psychological History: Bipolar, Depression, PTSD, Schizophrenia Smoking Status: Current every day smoker Past Alcohol Use History: Occasional Past Drug Use History: Cocaine, IV Drug Use, Marijuana, Opiates, Prescription Drug Abuse - Past Family History Father Family Medical History: Respiratory Disorder Additional Family Medical History / Comment(s): Father at age 64 from Black lung disease Mother Family Medical History: Hypertension, Myocardial Infarction (VT) Additional Family Medical History / Comment(s): Mother of an [place] at 78yrs old. Brother(s) Family Medical History: Myocardial Infarction (VT) Additional Family Medical History / Comment(s): Patient has 10 brothers and 2 from myocardial infarction and had history of alcoholism. Sister(s) Family Medical History: Hypertension, Myocardial Infarction (VT) Additional Family Medical History / Comment(s): He has 7 sisters that are alive with no major medical problems. He has one son that has and one daughter that is alive and okay. Medications and Allergies Home Medications Medication Instructions Recorded Confirmed Type Atorvastatin [Lipitor] 40 mg PO DAILY 30 Days tab 12/10/21 02/02/22 Rx Multivitamins, Thera [Multivitamin 1 each PO DAILY 30 Days tab 12/10/21 02/02/22 Rx (formulary)] Aspirin 325 mg PO DAILY 30 Days tab 02/06/22 Rx Mirtazapine [Remeron] 7.5 mg PO HS 30 Days tab 02/06/22 Rx Pantoprazole [Protonix] 40 mg PO AC-BRKFST 30 Days tab 02/06/22 Rx QUEtiapine [SEROquel] 50 mg PO BID@0900,1400 30 Days tab 02/06/22 Rx QUEtiapine [SEROquel] 400 mg PO HS 30 Days tab 02/06/22 Rx Venlafaxine HCl ER [Effexor XR] 150 mg PO DAILY 30 Days cap 02/06/22 Rx Allergies Allergy/AdvReac Type Severity Reaction Status Date / Time blueberry Allergy Rash/Hives Verified 07/02/22 01:29 nitroglycerin Allergy Swelling Verified 07/02/22 01:29 Physical Exam Vitals: Vital Signs Temp Pulse Resp BP Pulse Ox 07/02/22 03:15 66 16 130/86 98 07/02/22 01:20 98.2 F 76 18 106/73 96 Intake and Output 07/01/22 07/01/22 07/02/22 14:59 22:59 06:59 Other: Weight 73.482 kg Results CBC & Chem 7: 07/02/22 01:51 07/02/22 01:51 Labs: Abnormal Lab Results - Last 24 Hours (Table) 07/02/22 07/02/22 07/02/22 Range/Units 01:51 01:51 01:51 RBC 3.92 L (4.30-5.90) m/uL Hgb 12.4 L (13.0-17.5) gm/dL Hct 38.9 L (39.0-53.0) % Sodium 136 L (137-145) mmol/L BUN 3 L (9-20) mg/dL Creatinine 0.59 L (0.66-1.25) mg/dL Glucose 105 H (74-99) mg/dL Troponin I 0.036 H* (0.000-0.034) ng/mL
[2022-07-02] MEDS: MORPHINE SULFATE 4 MG/ML SYRINGE IV PRN ×5 (05:49→22:05)
[2022-07-02] MEDS: ACETAMINOPHEN TAB 325 MG TAB PO PRN (08:23)
[2022-07-02] MEDS: HEPARIN SODIUM,PORCINE/PF 5,000 UNIT/0.5 ML SYRINGE SQ SCH ×3 (08:24→23:17)
[2022-07-02 11:20] LABS: Appearance,Urine Clear (Clear); Bilirubin,Urine Negative (Negative); Blood,Urine Negative (Negative); Color,Urine Yellow; Glucose,Urine (UA) Negative (Negative); Ketones,Urine Negative (Negative); Leukocyte Esterase,Urine Negative (Negative); Nitrite,Urine Negative (Negative); Protein,Urine Negative (Negative); Specific Gravity,Urine 1.018 (1.001-1.035); Urobilinogen,Urine <2.0 mg/dL (<2.0)
[2022-07-02 11:38] LABS: Amphetamine Screen,Urine Not Detected (NotDetected); Barbiturate Screen,Urine Not Detected (NotDetected); Benzodiazepines Screen,Urine Not Detected (NotDetected); Cocaine Screen,Urine Not Detected (NotDetected); Methadone Screen, Urine Not Detected (NotDetected); Opiate Screen,Urine Detected (NotDetected); Oxycodone Screen, Urine Not Detected (NotDetected); Phencyclidine Screen,Urine Not Detected (NotDetected); Tricyclic Antidepressant,Urine Not Detected (NotDetected); Urn Cannabinoid Scrn Not Detected (NotDetected)
--- NOTE | 2022-07-02 13:26 | P.CRDCN ---
History of Present Illness Consult date: 07/02/22 Consult reason: chest pain History of present illness: History of present illness: This is a 61-year-old male with past medical history of hyperlipidemia. Patient was seen at [facility] a few weeks ago for chest pain and recommended stress test at that time and patient refused. Patient gives history that he was walking with his grandson developed shortness of breath and felt like an elephant was sitting on his chest. Patient states he has been taking all of his medications as directed. He states he has also had some dizziness, lightheadedness, palpitations. EKG sinus rhythm Chest x-ray: Bibasilar atelectasis or scarring WBC 5.2, hemoglobin 12.4. BUN 3, creatinine 0.59, potassium 4. Troponin 0.036, 0.012, 0.012. Urine drug screen positive for opiates. Urine negative for infection. Home cardiac medications: Aspirin 81 mg daily, Lipitor 20 g daily Cardiac catheterization 11/[address] Sullivan mild in-stent restenosis involving the LAD and medical treatment was recommended. Echocardiogram 01/2022 revealed normal LV systolic function Review Of Systems: At the time of my evaluation: Constitutional: No fever, no chills. No weakness, fatigue or lethargy. EENT: No headache. No dizziness. Lungs: No shortness of breath, cough, no sputum production. No wheezing. Cardiovascular: No chest pain, no lower extremity edema. No palpitations. No paroxysmal nocturnal dyspnea. No orthopnea. No lightheadedness or dizziness. No syncopal episodes. Abdominal: No abdominal pain. No nausea, vomiting. No diarrhea. No constipation. No bloody or tarry stools. Genitourinary: No dysuria.. No urinary retention. Musculoskeletal: No myalgias. No muscle weakness, no frequent falls. No back pain. No neck pain. Integumentary: No wounds. No rash. No unusual bruising. Neurologic: No aphasia. No facial droop. No change in mentation. No head injury. No headache. Physical examination: Gen: This is a 61-year-old black male, resting on ER stretcher and appears to be comfortable and in no acute distress. VS: reviewed HEENT: Head is atraumatic, normocephalic. Pupils equal, round. Sclerae is anicteric. NECK: Supple. No JVD. LUNGS: Clear to auscultation. No wheezes or rhonchi. No intercostal retractions. HEART: Regular rate and rhythm. No murmur. ABDOMEN: Soft No tenderness. EXTREMITIES: No pedal edema. No calf tenderness. NEUROLOGICAL: Patient is awake, alert and oriented x3. Assessment: Chest pain with elevated troponin 1 Hyperlipidemia Plan: Resume patient's home cardiac medications Recommended the patient undergo cardiac catheterization and he will think about it. Hold on starting beta paulina due to bradycardia Obtain 2-D echocardiogram and Doppler study to assess cardiac structure and function Further recommendations to follow based upon clinical course Thank you kindly for this consultation. Nurse practitioner note has been reviewed, I agree with documented findings and plan of care. Patient was seen and examined. Past Medical History Past Medical History: Coronary Artery Disease (CAD), Chest Pain / Angina, Hyper lipidemia, Myocardial Infarction ([place]), Osteoarthritis (OA) Additional Past Medical History / Comment(s): arthritis in back and bilateral knees,hx hiatal hernia Last Myocardial Infarction Date:: 2004 History of Any Multi-Drug Resistant Organisms: None Reported Past Surgical History: Bowel Resection, Heart Catheterization With Stent Additional Past Surgical History / Comment(s): Cardiac stents x 3, bowel surgery for pinpoint hole in bowel, L knee arthroscopy, colonoscopy/benign polypectomies,hiatal hernia repair Past Anesthesia/Blood Transfusion Reactions: No Reported Reaction Date of Last Stent Placement:: 2013 Past Psychological History: Bipolar, Depression, PTSD, Schizophrenia Smoking Status: Current every day smoker Past Alcohol Use History: Occasional Past Drug Use History: Cocaine, IV Drug Use, Marijuana, Opiates, Prescription Drug Abuse - Past Family History Father Family Medical History: Respiratory Disorder Additional Family Medical History / Comment(s): Father at age 64 from Black lung disease Mother Family Medical History: Hypertension, Myocardial Infarction ([place]) Additional Family Medical History / Comment(s): Mother of an [place] at 78yrs old. Brother(s) Family Medical History: Myocardial Infarction ([place]) Additional Family Medical History / Comment(s): Patient has 10 brothers and 2 from myocardial infarction and had history of alcoholism. Sister(s) Family Medical History: Hypertension, Myocardial Infarction ([place]) Additional Family Medical History / Comment(s): He has 7 sisters that are alive with no major medical problems. He has one son that has and one daughter that is alive and okay. Medications and Allergies Home Medications Medication Instructions Recorded Confirmed Type Aspirin EC [Ecotrin Low Dose] 81 mg PO DAILY 07/02/22 07/02/22 History Atorvastatin [Lipitor] 20 mg PO DAILY 07/02/22 07/02/22 History HYDROcodone/APAP 10-325MG [[place] 1 tab PO Q6HR 07/02/22 07/02/22 History 10-325] Naloxone HCl [Narcan] 4 mg NASAL DIRECTED PRN 07/02/22 07/02/22 History Allergies Allergy/AdvReac Type Severity Reaction Status Date / Time blueberry Allergy Rash/Hives Verified 07/02/22 07:42 nitroglycerin Allergy Swelling Verified 07/02/22 07:42 Physical Exam Vitals: Vital Signs Temp Pulse Resp BP Pulse Ox 07/02/22 09:00 56 L 18 111/81 97 07/02/22 08:30 72 18 111/81 98 07/02/22 08:00 59 L 18 120/88 98 07/02/22 07:30 70 16 120/88 98 07/02/22 06:00 59 L 14 119/80 97 07/02/22 03:15 66 16 130/86 98 07/02/22 01:20 98.2 F 76 18 106/73 96 Intake and Output 07/01/22 07/02/22 07/02/22 22:59 06:59 14:59 Other: Weight 73.482 kg Results 07/02/22 01:51 07/02/22 01:51 Cardiac Enzymes 07/02/22 07/02/22 07/02/22 Range/Units 01:51 01:51 05:49 AST 31 (17-59) U/L Troponin I 0.036 H* <0.012 (0.000-0.034) ng/mL Coagulation 07/02/22 Range/Units 01:51 PT 9.8 (9.0-12.0) sec APTT 24.4 (22.0-30.0) sec CBC 07/02/22 Range/Units 01:51 WBC 5.2 (3.8-10.6) k/uL RBC 3.92 L (4.30-5.90) m/uL Hgb 12.4 L (13.0-17.5) gm/dL Hct 38.9 L (39.0-53.0) % Plt Count 184 (150-450) k/uL Comprehensive Metabolic Panel 07/02/22 Range/Units 01:51 Sodium 136 L (137-145) mmol/L Potassium 4.0 (3.5-5.1) mmol/L Chloride 98 (98-107) mmol/L Carbon Dioxide 24 (22-30) mmol/L BUN 3 L (9-20) mg/dL Creatinine 0.59 L (0.66-1.25) mg/dL Glucose 105 H (74-99) mg/dL Calcium 9.7 (8.4-10.2) mg/dL AST 31 (17-59) U/L ALT 20 (4-49) U/L Alkaline Phosphatase 53 (38-126) U/L Total Protein 8.2 (6.3-8.2) g/dL Albumin 4.7 (3.5-5.0) g/dL Current Medications Generic Name Dose Route Start Last Admin Trade Name Freq PRN Reason Stop Dose Admin Acetaminophen 650 mg 07/02/22 03:55 07/02/22 08:23 Acetaminophen Tab 325 Mg Tab PO 650 mg Q6HR PRN Administration Mild Pain or Fever > 100.5 Heparin Sodium (Porcine) 5,000 unit 07/02/22 08:00 07/02/22 08:24 Heparin Sodium,Porcine/Pf 5,000 Unit/0.5 Ml Syringe SQ 5,000 unit Q8HR MORRIS Administration Sodium Chloride 1,000 mls @ 75 mls/hr 07/02/22 04:00 07/02/22 04:01 Saline 0.9% IV 75 mls/hr .[id number] MORRIS Administration Morphine Sulfate 4 mg 07/02/22 04:00 07/02/22 05:49 Morphine Sulfate 4 Mg/Ml Syringe IV 4 mg Q4HR PRN Administration Severe Pain (Scale 7 to 10) Naloxone HCl 0.2 mg 07/02/22 03:55 Naloxone 0.4 Mg/Ml 1 Ml Vial IV Q2M PRN Opioid Reversal Ondansetron HCl 4 mg 07/02/22 03:55 Ondansetron 4 Mg/2 Ml Vial IVP Q8HR PRN Nausea And Vomiting Intake and Output 07/01/22 07/02/22 07/02/22 22:59 06:59 14:59 Other: Weight 73.482 kg 07/02/22 01:51 07/02/22 01:51
--- NOTE | 2022-07-02 17:03 | P.PN ---
Subjective Progress Note Date: 07/02/22 Hospital course: Patient is a very pleasant 61-year-old male with a past medical history of coronary artery disease status post previous [place] with 4 stents, hyperlipidemia, COPD with continued nicotine dependence, previous history of alcohol and polysubstance abuse reported being clean/sober 4 years, anxiety, depression, PTSD, bipolar disorder, and schizophrenia. He presented to the emergency department with a chief complaint of chest pain/discomfort. Patient underwent full evaluation in the emergency department. Labs completed and reviewed. CBC revealing mild normocytic anemia with hemoglobin of 12.4. Coagulation profile and CMP were unremarkable. Initial troponin elevated at 0.036. EKG completed showing normal sinus rhythm at 70 bpm with T-wave inversion in inferior leads 3 and aVF. Chest x-ray completed in radiology report reviewed stating by basilar atelectasis or scarring stable in appearance with no focal consolidation or significant changes from previous imaging. Patient was admitted under our services with consultation to cardiology. Troponins were trended overnight. Initial troponin was elevated at 0.036 with repeat troponin of less than 0.012 and less than 0.012. Patient was evaluated by cardiology and they are recommending patient undergo cardiac catheterization. Physical exam: Patient seen and fully evaluated at the bedside this morning. Patient reports he continues to have pain and midsternal chest. Cardiology evaluated recommending patient undergo cardiac catheterization, however patient declining at this time stating he needs time to think about. Vital signs reviewed and stable. General: Nontoxic, no distress and appears stated age. Derm: Skin warm and dry, normal coloration for ethnicity. Head: Atraumatic, normocephalic and symmetric. Eyes: EOMs intact, no lid lag, and anicteric sclera Mouth: no lip lesions, mucus membranes moist Cardiovascular: regular rate and rhythm with normal S1S2, no murmur, positive posterior tibial pulses bilaterally, and cap refill < 2 seconds. Lungs: Respirations even, regular, and unlabored on room air. Lungs CTA bilaterally, no rhonchi, no rales, no wheezing, and no accessory muscle usage. Abdominal: soft, nontender to palpation, no guarding, no appreciable organomegaly Ext: ROM intact. No gross muscle atrophy, no edema, no contractures Neuro: Speech clear, face symmetrical and CN II-XII grossly intact with no noted focal neuro deficits Psych: Alert and oriented to person, place, time, and situation. Appropriate and pleasant affect. Assessment and Plan of Care: Elevated troponin Chest pain History of CAD with previous stenting 4 Hyperlipidemia -Troponins were trended overnight. Initial troponin was elevated at 0.036 with repeat troponin of less than 0.012 and less than 0.012. -EKG showing normal sinus rhythm at 70 bpm with T-wave inversion in inferior leads 3 and aVF upon personal review and interpretation. -Chest x-ray completed and radiology report reviewed stating by basilar atelectasis or scarring stable in appearance with no focal consolidation or significant changes from previous imaging. -Cardiology following. Discussed plan of care cardiac [facility] and they are recommending patient undergo cardiac catheterization. -Telemetry monitoring -NPO after midnight for possible cardiac catheterization, patient states that he is still debating on whether or not he would like this completed. -Continue daily aspirin and atorvastatin. COPD with continued nicotine dependence -Recommend smoking cessation. -Order placed for Nicotine patch 21 mg. CODE STATUS: Full code DVT prophylaxis: Heparin Discussed with: Patient, RN, and cardiology [facility] Anticipated discharge date: Clinical course to determine Anticipated discharge place: Home Patient was seen independently by Nurse Pracitioner. This document was prepared using [employer] dictation software. Please allow for errors in sole leveler machine, while rare they do occur. Layo Muller NP rendered care for this patient independently, reviewed the findings and plan as documented in the note above. I did not physically speak with or examine the patient on this date. Objective - Vital Signs Vital signs: Vital Signs Temp 98.2 F 07/02/22 01:20 Pulse 70 07/02/22 07:30 Resp 16 07/02/22 07:30 BP 120/88 07/02/22 07:30 Pulse Ox 98 07/02/22 07:30 FiO2 Intake & Output 07/01/22 07/02/22 07/02/22 18:59 06:59 18:59 Weight 73.482 kg - Labs CBC & Chem 7: 07/04/22 08:09 07/04/22 08:09 Labs: Abnormal Lab Results - Last 24 Hours (Table) 07/02/22 07/02/22 07/02/22 Range/Units 01:51 01:51 01:51 RBC 3.92 L (4.30-5.90) m/uL Hgb 12.4 L (13.0-17.5) gm/dL Hct 38.9 L (39.0-53.0) % Sodium 136 L (137-145) mmol/L BUN 3 L (9-20) mg/dL Creatinine 0.59 L (0.66-1.25) mg/dL Glucose 105 H (74-99) mg/dL Troponin I 0.036 H* (0.000-0.034) ng/mL
[2022-07-02] MEDS: NICOTINE 21MG/24HR PATCH TRANSDERM SCH (20:15)
[2022-07-03] MEDS: MORPHINE SULFATE 4 MG/ML SYRINGE IV PRN ×5 (02:06→20:27)
[2022-07-03] MEDS: SODIUM CHLORIDE 0.9% 1,000 ML IV SCH ×2 (05:01→10:40)
[2022-07-03] MEDS ORDERED: HEPARIN SODIUM,PORCINE 2,500 UNIT in SODIUM CHLORIDE 0.9% 250 ML IRRIGATION PRN (07:00)
[2022-07-03] MEDS ORDERED: HEPARIN SODIUM,PORCINE 10,000 UNIT in SODIUM CHLORIDE 0.9% 1,000 ML IRRIGATION PRN (07:00)
[2022-07-03] MEDS: ATORVASTATIN 20 MG TAB PO SCH (08:56)
[2022-07-03] MEDS: HEPARIN SODIUM,PORCINE/PF 5,000 UNIT/0.5 ML SYRINGE SQ SCH ×3 (08:56→23:26)
[2022-07-03] MEDS: ACETAMINOPHEN TAB 325 MG TAB PO PRN (08:56)
[2022-07-03] MEDS: ASPIRIN 81 MG PO SCH (08:56)
[2022-07-03] MEDS: NICOTINE 21MG/24HR PATCH TRANSDERM SCH (08:57)
[2022-07-03] MEDS ORDERED: ATORVASTATIN 80 MG TAB PO STA (12:36)
[2022-07-03] MEDS ORDERED: ALPRAZolam 0.5 MG TAB PO PRN (12:36)
[2022-07-03] MEDS ORDERED: ALPRAZolam 0.25 MG TAB PO PRN (12:36)
[2022-07-03] MEDS ORDERED: ASPIRIN 81 MG PO STA (12:36)
[2022-07-03] MEDS ORDERED: NITROGLYCERIN SL TABS 0.4 MG TAB SUBLINGUAL PRN (12:36)
[2022-07-03 13:21] LABS: Glucose,Whole Blood 80 mg/dL (70-110)
--- NOTE | 2022-07-03 14:26 | P.PN ---
Subjective Progress Note Date: 07/03/22 History of present illness: This is a 61-year-old male with past medical history of hyperlipidemia. Patient was seen at [facility] a few weeks ago for chest pain and recommended stress test at that time and patient refused. Patient gives history that he was walking with his grandson developed shortness of breath and felt like an elephant was sitting on his chest. Patient states he has been taking all of his medications as directed. He states he has also had some dizziness, lightheadedness, palpitations. EKG sinus rhythm Chest x-ray: Bibasilar atelectasis or scarring WBC 5.2, hemoglobin 12.4. BUN 3, creatinine 0.59, potassium 4. Troponin 0.036, 0.012, 0.012. Urine drug screen positive for opiates. Urine negative for infection. Home cardiac medications: Aspirin 81 mg daily, Lipitor 20 g daily Cardiac catheterization 11/[address] Sullivan mild in-stent rest enosis involving the LAD and medical treatment was recommended. Echocardiogram 01/2022 revealed normal LV systolic function 07/03 Patient is seen today on the cardiac stepdown unit. He denies any active chest pain at this time but apparently patient had chest pain earlier this morning. Patient is now agreeable to undergo catheterization for tomorrow. Troponin 2 have been negative. Heart rate has been in the 50s and 60s, blood pressure 137/89. Physical examination: Gen: This is a 61-year-old black male, resting in bed and appears to be comfortable and in no acute distress. VS: reviewed HEENT: Head is atraumatic, normocephalic. Pupils equal, round. Sclerae is anicteric. NECK: Supple. No JVD. LUNGS: Clear to auscultation. No wheezes or rhonchi. No intercostal retractions. HEART: Regular rate and rhythm. No murmur. ABDOMEN: Soft No tenderness. EXTREMITIES: No pedal edema. No calf tenderness. NEUROLOGICAL: Patient is awake, alert and oriented x3. Assessment: Chest pain with elevated troponin 1 Hyperlipidemia Plan: Continue patient's home cardiac medications Recommended the patient undergo cardiac catheterization and patient is in agreement to undergo this tomorrow Hold on starting beta paulina due to bradycardia Further recommendations to follow based upon clinical course Thank you kindly for this consultation. Nurse practitioner note has been reviewed, I agree with documented findings and plan of care. Patient was seen and examined. Objective - Vital Signs Vital signs: Vital Signs Temp 98.0 F 07/03/22 12:01 Pulse 61 07/03/22 12:01 Resp 18 07/03/22 12:01 BP 137/89 07/03/22 12:01 Pulse Ox 97 07/03/22 12:01 FiO2 Intake & Output 07/02/22 07/03/22 07/03/22 18:59 06:59 18:59 Weight 73.482 kg Other: # Voids 1 # Bowel Movements 1 - Labs CBC & Chem 7: 07/02/22 01:51 07/02/22 01:51
--- NOTE | 2022-07-03 18:41 | P.PN ---
Subjective Progress Note Date: 07/03/22 Hospital course: Patient is a very pleasant 61-year-old male with a past medical history of coronary artery disease status post previous [place] with 4 stents, hyperlipidemia, COPD with continued nicotine dependence, previous history of alcohol and polysubstance abuse reported being clean/sober 4 years, anxiety, depression, PTSD, bipolar disorder, and schizophrenia. He presented to the emergency department with a chief complaint of chest pain/discomfort. Patient underwent full evaluation in the emergency department. Labs completed and reviewed. CBC revealing mild normocytic anemia with hemoglobin of 12.4. Coagulation profile and CMP were unremarkable. Initial troponin elevated at 0.036. EKG completed showing normal sinus rhythm at 70 bpm with T-wave inversion in inferior leads 3 and aVF. Chest x-ray completed in radiology report reviewed stating by basilar atelectasis or scarring stable in appearance with no focal consolidation or significant changes from previous imaging. Patient was admitted under our services with consultation to cardiology. Troponins were trended overnight. Initial troponin was elevated at 0.036 with repeat troponin of less than 0.012 and less than 0.012. Patient was evaluated by cardiology and they are recommending patient undergo cardiac catheterization. Physical exam: Patient seen and fully evaluated at the bedside this morning. Patient reports he continues to have pain throughout his midsternal chest. Patient states he did not want to have the cardiac catheterization this morning so he went ahead and ate breakfast. Patient does report that he would like to wait and have the cardiac catheterization tomorrow and is in agreement to undergo this procedure. Vital signs reviewed and stable. General: Nontoxic, no distress and appears stated age. Derm: Skin warm and dry, normal coloration for ethnicity. Head: Atraumatic, normocephalic and symmetric. Eyes: EOMs intact, no lid lag, and anicteric sclera Mouth: no lip lesions, mucus membranes moist Cardiovascular: regular rate and rhythm with normal S1S2, no murmur, positive posterior tibial pulses bilaterally, and cap refill < 2 seconds. Lungs: Respirations even, regular, and unlabored on room air. Lungs CTA bilaterally, no rhonchi, no rales, no wheezing, and no accessory muscle usage. Abdominal: soft, nontender to palpation, no guarding, no appreciable orga nomegaly Ext: ROM intact. No gross muscle atrophy, no edema, no contractures Neuro: Speech clear, face symmetrical and CN II-XII grossly intact with no noted focal neuro deficits Psych: Alert and oriented to person, place, time, and situation. Appropriate and pleasant affect. Assessment and Plan of Care: Elevated troponin Chest pain History of CAD with previous stenting 4 Hyperlipidemia -Initial troponin was elevated at 0.036 with repeat troponin of less than 0.012 and less than 0.012. -EKG revealed normal sinus rhythm at 70 bpm with T-wave inversion in inferior leads 3 and aVF upon personal review and interpretation. -Chest x-ray completed and radiology report reviewed stating by basilar atelectasis or scarring stable in appearance with no focal consolidation or significant changes from previous imaging. -Cardiology following. Discussed plan of care with cardiac [facility] and they report patient is scheduled to undergo cardiac catheterization tomorrow. -Telemetry monitoring -NPO after midnight for scheduled cardiac catheterization, patient states that he is now in agreement to undergo cardiac catheterization tomorrow morning -Continue daily aspirin and atorvastatin. COPD with continued nicotine dependence -Recommend smoking cessation. -Order placed for Nicotine patch 21 mg. CODE STATUS: Full code DVT prophylaxis: Heparin Discussed with: Patient, RN, and cardiology [facility] Anticipated discharge date: Clinical course to determine Anticipated discharge place: Home Patient was seen independently by Nurse Pracitioner. This document was prepared using [employer] dictation software. Please allow for errors in building appraiser, while rare they do occur. Layo Muller NP rendered care for this patient independently, reviewed the findings and plan as documented in the note above. I did not physically speak with or examine the patient on this date. Objective - Vital Signs Vital signs: Vital Signs Temp 98.2 F 07/03/22 08:55 Pulse 62 07/03/22 08:55 Resp 18 07/03/22 08:55 BP 137/93 07/03/22 08:55 Pulse Ox 98 07/03/22 08:55 FiO2 Intake & Output 07/02/22 07/03/22 07/03/22 18:59 06:59 18:59 Weight 73.482 kg Other: # Voids 1 # Bowel Movements 1 - Labs CBC & Chem 7: 07/04/22 08:09 07/04/22 08:09 Labs: Abnormal Lab Results - Last 24 Hours (Table) 07/02/22 Range/Units 11:01 Urine Opiates Screen Detected H (NotDetected)
[2022-07-03] MEDS ORDERED: LOPERAMIDE 2 MG CAP PO STA (22:01)
[2022-07-03 23:44] VITALS: RESP 16
[2022-07-04] MEDS: MORPHINE SULFATE 4 MG/ML SYRINGE IV PRN ×3 (00:30→10:47)
[2022-07-04 05:29] LABS: Glucose,Whole Blood 105 mg/dL (70-110)
[2022-07-04] MEDS: ASPIRIN 81 MG PO SCH (06:04)
[2022-07-04] MEDS: ATORVASTATIN 20 MG TAB PO SCH (06:05)
[2022-07-04] MEDS: HEPARIN SODIUM,PORCINE/PF 5,000 UNIT/0.5 ML SYRINGE SQ SCH (07:41)
[2022-07-04 08:28] LABS: HCT 34.5 % (39.0-53.0); HGB 11.2 gm/dL (13.0-17.5); MCH 33.2 pg (25.0-35.0); MCHC 32.6 g/dL (31.0-37.0); MCV 101.9 fL (80.0-100.0); Macrocytosis Slight; Platelet Count 145 k/uL (150-450); RBC 3.39 m/uL (4.30-5.90); RDW 13.8 % (11.5-15.5); WBC 3.6 k/uL (3.8-10.6)
[2022-07-04 08:53] LABS: African American GFR (CKD) >90 (>60 ml/min/1.73 sqM); Anion Gap 3 mmol/L; Blood Urea Nitrogen 3 mg/dL (9-20); Calcium 9.2 mg/dL (8.4-10.2); Carbon Dioxide 30 mmol/L (22-30); Chloride 102 mmol/L (98-107); Glucose 101 mg/dL (74-99); Magnesium 1.8 mg/dL (1.6-2.3); Non-African American GFR(CKD) >90 (>60 ml/min/1.73 sqM); Sodium 135 mmol/L (137-145)
[2022-07-04] MEDS ORDERED: VERAPAMIL 2.5 MG/ML 2 ML AMP ONE (10:42)
[2022-07-04] MEDS ORDERED: HEPARIN SODIUM 1,000 UN/ML (10ML VL) ONE (10:43)
[2022-07-04] MEDS ORDERED: IV FLUID CONTINUATION 250 ML IV ONE (11:20)
[2022-07-04] MEDS ORDERED: MIDAZOLAM 2 MG/2 ML VIAL IVP ONE (11:26)
[2022-07-04] MEDS ORDERED: LIDOCAINE 1% INJ 10MG/ML (5 ML VIAL-PF) SQ ONE (11:28)
[2022-07-04] MEDS ORDERED: VERAPAMIL SYRINGE (5 MG/10 ML) INTRAARTER ONE (11:30)
[2022-07-04] MEDS ORDERED: IOPAMIDOL-370 100ML BTL INJ ONE (11:36)
[2022-07-04] MEDS ORDERED: RX INFO: IV CONTRAST WAS GIVEN 1 EACH MISC MISCELLANE PRN (11:38)
--- NOTE | 2022-07-04 11:41 | P.PCN ---
Date of Procedure: 07/04/22 Operative Findings: CARDIAC CATHETERIZATION PERFORMING PHYSICIAN: Primo Moody MD, RPVI PROCEDURE PERFORMED: 1. Selective right and left coronary angiogram 2. Left heart catheterization INDICATION: Acute coronary syndrome in this 61-year-old gentleman who presented with chest discomfort and ruled in for acute coronary syndrome. He is known to have CAD with prior stenting of the LAD COMPLICATION: None APPROACH: Right radial artery LEVEL OF SEDATION: Moderate with a sedation length of 9 minutes PROCEDURE DESCRIPTION: After obtaining an informed consent, the patient was brought to cardiac sanitation laborer. Local anesthesia was performed using lidocaine subcutaneously. The right radial artery was cannulated using Seldinger technique, the guidewire passed easily, following that we advanced a 5-[place] sheath dilator assembly, the wire and dilator were removed and sheath was flushed. Following that, 2 mg of verapamil given Selective right and left coronary angiogram using a 6-[place] JR4 and JL 3.5 catheters. Following that we did left heart catheterization using 6-[place] pigtail catheter. The procedure was completed there was no complication. SELECTIVE CORONARY ANGIOGRAM: The right coronary artery: Large caliber vessel and a dominant vessel. The RCA is angiographically normal. Distally bifurcates into PDA and PLV branches both appeared to be angiographically normal Left main: Is angiographically normal. Bifurcates into an LCx and LAD The left circumflex: Is angiographically normal. It gives rise into an OM1 which appeared to be normal. The left anterior descending artery: Large caliber vessel. The LAD is a stented in the midportion and the stent is patent. Otherwise LAD doesn't have any occlusive disease. HEMODYNAMICS: The LVEDP was 5 mmHg was no significant gradient across aortic valve CONCLUSION: 1. Mild in-stent restenosis of the LAD in the midportion 2. Normal left-sided filling pressure POSTPROCEDURE MANAGEMENT: Medical treatment and follow-up with the patient
[2022-07-04] MEDS ORDERED: SODIUM CHLORIDE 0.9% 1,000 ML IV SCH (11:45)
[2022-07-04 12:32] VITALS: TEMP 98.5
--- NOTE | 2022-07-04 14:15 | P.PN ---
Subjective Progress Note Date: 07/04/22 History of present illness: This is a 61-year-old male with past medical history of hyperlipidemia. Patient was seen at [facility] a few weeks ago for chest pain and recommended stress test at that time and patient refused. Patient gives history that he was walking with his grandson developed shortness of breath and felt like an elephant was sitting on his chest. Patient states he has been taking all of his medications as directed. He states he has also had some dizziness, lightheadedness, palpitations. EKG sinus rhythm Chest x-ray: Bibasilar atelectasis or scarring WBC 5.2, hemoglobin 12.4. BUN 3, creatinine 0.59, potassium 4. Troponin 0.036, 0.012, 0.012. Urine drug screen positive for opiates. Urine negative for infection. Home cardiac medications: Aspirin 81 mg daily, Lipitor 20 g daily Cardiac catheterization 11/[address] Sullivan mild in-stent rest enosis involving the LAD and medical treatment was recommended. Echocardiogram 01/2022 revealed normal LV systolic function 07/03 Patient is seen today on the cardiac stepdown unit. He denies any active chest pain at this time but apparently patient had chest pain earlier this morning. Patient is now agreeable to undergo catheterization for tomorrow. Troponin 2 have been negative. Heart rate has been in the 50s and 60s, blood pressure 137/89. 07/04 Patient is seen in follow-up. He is agreeable to undergo cardiac catheterization which was completed this morning and was clear, no stenting was required. Physical examination: Gen: This is a 61-year-old black male, resting in bed and appears to be comfortable and in no acute distress. VS: reviewed HEENT: Head is atraumatic, normocephalic. Pupils equal, round. Sclerae is anicteric. NECK: Supple. No JVD. LUNGS: Clear to auscultation. No wheezes or rhonchi. No intercostal retractions. HEART: Regular rate and rhythm. No murmur. ABDOMEN: Soft No tenderness. EXTREMITIES: No pedal edema. No calf tenderness. NEUROLOGICAL: Patient is awake, alert and oriented x3. Assessment: Chest pain with elevated troponin 1 Hyperlipidemia Plan: Continue current cardiac medications Patient is cleared from cardiology for discharge with follow-up in the office in one week. Nurse practitioner note has been reviewed, I agree with documented findings and plan of care. Patient was seen and examined. Objective - Vital Signs Vital signs: Vital Signs Temp 98.2 F 07/04/22 03:14 Pulse 59 L 07/04/22 03:14 Resp 16 07/04/22 03:14 BP 140/65 07/04/22 03:14 Pulse Ox 99 07/04/22 03:14 FiO2 Intake & Output 07/03/22 07/04/22 07/04/22 18:59 06:59 18:59 Intake Total 480 Balance 480 Intake: Oral 480 Other: Voiding Method Toilet Toilet Urinal Urinal # Voids 1 # Bowel Movements 2 - Labs CBC & Chem 7: 07/04/22 08:09 07/04/22 08:09
--- NOTE | 2022-07-04 16:16 | P.DS ---
Providers Date of admission: 07/02/22 03:56 Expected date of discharge: 07/04/22 Attending physician: Jonathan Red MD Consults: 07/02/22 03:55 Consult Physician Routine Consulting Provider: Deanne Starr Consult Reason/Comments: CP Do you want consulting provider notified?: Yes Primary care physician: Stated None Hospital Course: Discharge Diagnosis: Chest pain with Elevated troponin. Initial troponin was elevated at 0.036 with repeat troponin of less than 0.012 and less than 0.012. EKG revealed normal sinus rhythm at 70 bpm with T-wave inversion in inferior leads 3 and aVF upon personal review and interpretation. Patient was seen and evaluated by life skills trainer and taken for cardiac catheterization. Cardiac catheterization revealed mild in-stent restenosis. [employer] recommending medical management and patient being placed on dual antiplatelet therapy with aspirin 81 mg daily and Plavix 75 mg daily. [employer] clearing patient from cardiac standpoint recommending patient follow up outpatient with their office in one week. History of CAD with previous stenting 4 Hyperlipidemia COPD with continued nicotine dependence. Recommend smoking cessation. Hospital Course: Patient is a very pleasant 61-year-old male with a past medical history of coronary artery disease status post previous VT with 4 stents, hyperlipidemia, COPD with continued nicotine dependence, previous history of alcohol and polysubstance abuse reported being clean/sober 4 years, anxiety, depression, PTSD, bipolar disorder, and schizophrenia. He presented to the emergency department with a chief complaint of chest pain/discomfort. Patient underwent full evaluation in the emergency department. Labs completed and reviewed. CBC revealing mild normocytic anemia with hemoglobin of 12.4. Coagulation profile and CMP were unremarkable. Initial troponin elevated at 0.036. EKG completed showing normal sinus rhythm at 70 bpm with T-wave inversion in inferior leads 3 and aVF. Chest x-ray completed in radiology report reviewed stating by basilar atelectasis or scarring stable in appearance with no focal consolidation or significant changes from previous imaging. Patient was admitted under our services with consultation to cardiology. Troponins were trended overnight. Initial troponin was elevated at 0.036 with repeat troponin of less than 0.012 and less than 0.012. Patient was evaluated by cardiology and they are recommending patient undergo cardiac catheterization. Patient debated on whether or not he wanted to have cardiac catheterization completed and on day 3 of hospitalization patient in agreement and underwent cardiac cath. Cardiac catheterization revealed mild in-stent restenosis. [employer] recommending medical management and patient being placed on dual antiplatelet therapy with aspirin 81 mg daily and Plavix 75 mg daily. [employer] clearing patient from cardiac standpoint recommending patient follow up outpatient with their office in one week. Medically, patient is stable at this time in stable for discharge home. Physical exam: Vital signs reviewed and stable. General: Nontoxic, no distress and appears stated age. Derm: Skin warm and dry, normal coloration for ethnicity. Head: Atraumatic, normocephalic and symmetric. Eyes: EOMs intact, no lid lag, and anicteric sclera Mouth: no lip lesions, mucus membranes moist Cardiovascular: regular rate and rhythm with normal S1S2, no murmur, positive posterior tibial pulses bilaterally, and cap refill < 2 seconds. Lungs: Respirations even, regular, and unlabored on room air. Lungs CTA bilaterally, no rhonchi, no rales, no wheezing, and no accessory muscle usage. Abdominal: soft, nontender to palpation, no guarding, no appreciable organomegaly Ext: ROM intact. No gross muscle atrophy, no edema, no contractures Neuro: Speech clear, face symmetrical and CN II-XII grossly intact with no noted focal neuro deficits Psych: Alert and oriented to person, place, time, and situation. Appropriate and pleasant affect. A total of 32 minutes of time were spent preparing this complex discharge summary. Pt was discharged on 07/04/22 11:58 AM. Patient was seen independently by Nurse Practitioner. This document was prepared using [employer] dictation software. Please allow for errors in plastics repairer while rare they do occur. Layo Muller NP rendered care for this patient independently, reviewed the findings and plan as documented in the note above. I did not physically speak with or examine the patient on this date. Patient Condition at Discharge: Stable Plan - Discharge Summary Discharge Rx Participant: No New Discharge Prescriptions: New Clopidogrel [Plavix] 75 mg PO DAILY 30 Days #30 tablet Continue HYDROcodone/APAP 10-325MG [[place] 10-325] 1 tab PO Q6HR Aspirin EC [Ecotrin Low Dose] 81 mg PO DAILY Naloxone HCl [Narcan] 4 mg NASAL DIRECTED PRN PRN Reason: overdose Atorvastatin [Lipitor] 20 mg PO DAILY Discharge Medication List Aspirin EC [Ecotrin Low Dose] 81 mg PO DAILY 07/02/22 [History] Atorvastatin [Lipitor] 20 mg PO DAILY 07/02/22 [History] HYDROcodone/APAP 10-325MG [[place] 10-325] 1 tab PO Q6HR 07/02/22 [History] Naloxone HCl [Narcan] 4 mg NASAL DIRECTED PRN 07/02/22 [History] Clopidogrel [Plavix] 75 mg PO DAILY 30 Days #30 tablet 07/04/22 [Rx] Follow up Appointment(s)/Referral(s): Pascual Denson MD [STAFF PHYSICIAN] - 1 Week Lam Loyola MD [REFERRING] - 1 Week Patient Instructions/Handouts: Chest Pain (DC), After Radial Heart Catheterization (GEN) Activity/Diet/Wound Care/Special Instructions: Activity: As tolerated. Take breaks as needed. Diet: Heart healthy and carb consistent diet. Avoid salts, or foods with hidden salts such as canned or boxed foods and frozen dinners. Extra salt makes your heart work harder and traps the fluid in your body for longer. Special Instructions: Take all of your medications as directed and remember to keep all of your doctor's appointments and follow-up as needed. It is recommended by her life skills trainer that you begin taking dual antiplatelet therapy with Plavix 75 mg daily along with her daily aspirin 81 mg daily. Thank you for allowing us to participate in your care, it was truly a pleasure having you for our patient!!! Discharge Disposition: HOME SELF-CARE
[2022-07-04 16:24] VITALS: BP 136/72; PULSE 63
== END 2022-07-04 16:23 | disposition home or self-care (01) | DRG 287 ==
LOC: EC 00:44 → OBSVTOIN 03:56 → 3SCARD 03:56
PROVIDERS: ADMIT Internal Medicine; ATTEND Internal Medicine
PROC: B2111ZZ Fluoroscopy of Multiple Coronary Arteries using Low Osmolar Contrast (ICD-10-PCS; 2022-07-04)
PROC: 4A023N7 Measurement of Cardiac Sampling and Pressure, Left Heart, Percutaneous Approach (ICD-10-PCS; principal; 2022-07-04 09:00)
DX: T82.855A Stenosis of coronary artery stent, initial encounter (principal); J98.11 Atelectasis; S22.32XA Fracture of one rib, left side, initial encounter for closed fracture; D64.9 Anemia, unspecified; E78.5 Hyperlipidemia, unspecified; F10.20 Alcohol dependence, uncomplicated; F12.10 Cannabis abuse, uncomplicated; F14.10 Cocaine abuse, uncomplicated; F17.210 Nicotine dependence, cigarettes, uncomplicated; F20.9 Schizophrenia, unspecified; F31.9 Bipolar disorder, unspecified; F43.10 Post-traumatic stress disorder, unspecified; G89.29 Other chronic pain; I10 Essential (primary) hypertension; J44.9 Chronic obstructive pulmonary disease, unspecified; R79.89 Other specified abnormal findings of blood chemistry; M17.0 Bilateral primary osteoarthritis of knee; I25.10 Atherosclerotic heart disease of native coronary artery without angina pectoris; I25.2 Old myocardial infarction; M19.90 Unspecified osteoarthritis, unspecified site; Z87.19 Personal history of other diseases of the digestive system; Z88.8 Allergy status to other drugs, medicaments and biological substances; Z71.6 Tobacco abuse counseling; Z79.82 Long term (current) use of aspirin; Z79.899 Other long term (current) drug therapy; Z95.5 Presence of coronary angioplasty implant and graft
CPT/HCPCS: 36415; 71046; 80048; 80053; 80306; 81003; 83735; 84484; 85025; 85027; 85610; 85730; 93005; 93458; 96361; 96372; 96374; 96376; 99285

== ENCOUNTER 2022-07-12 09:56 | Inpatient (IN) | payer MEDICARE, MEDICAID ==
--- NOTE | 2022-07-12 10:22 | ED ---
General Adult HPI - General Chief complaint: Psychiatric Symptoms Stated complaint: mental health Time Seen by Provider: 07/12/22 09:59 Source: patient, RN notes reviewed, old records reviewed Mode of arrival: ambulatory Limitations: no limitations - History of Present Illness Initial comments: 61-year-old male presenting for mental health evaluation. Patient states that he has been off his medication for several months. He states he is feeling suicidal with increased depression. Denies suicide attempt. - Related Data Home Medications Medication Instructions Recorded Confirmed Aspirin EC [Ecotrin Low Dose] 81 mg PO DAILY 07/02/22 07/02/22 Atorvastatin [Lipitor] 20 mg PO DAILY 07/02/22 07/02/22 HYDROcodone/APAP 10-325MG [[place] 1 tab PO Q6HR 07/02/22 07/02/22 10-325] Naloxone HCl [Narcan] 4 mg NASAL DIRECTED PRN 07/02/22 07/02/22 Previous Rx's Medication Instructions Recorded Clopidogrel [Plavix] 75 mg PO DAILY 30 Days #30 tablet 07/04/22 Allergies Allergy/AdvReac Type Severity Reaction Status Date / Time blueberry Allergy Rash/Hives Verified 07/12/22 10:06 nitroglycerin Allergy Swelling Verified 07/12/22 10:06 Review of Systems ROS Statement: Those systems with pertinent positive or pertinent negative responses have been documented in the HPI. ROS Other: All systems not noted in ROS Statement are negative. Past Medical History Past Medical History: Coronary Artery Disease (CAD), Chest Pain / Angina, Hyperlipidemia, Myocardial Infarction ([place]), Osteoarthritis (OA) Additional Past Medical History / Comment(s): arthritis in back and bilateral knees,hx hiatal hernia Last Myocardial Infarction Date:: 2004 History of Any Multi-Drug Resistant Organisms: None Reported Past Surgical History: Bowel Resection, Heart Catheterization With Stent Additional Past Surgical History / Comment(s): Cardiac stents x 3, bowel surgery for pinpoint hole in bowel, L knee arthroscopy, colonoscopy/benign polypectomies,hiatal hernia repair Past Anesthesia/Blood Transfusion Reactions: No Reported Reaction Date of Last Stent Placement:: 2013 Past Psychological History: Bipolar, Depression, PTSD, Schizophrenia Smoking Status: Current every day smoker Past Alcohol Use History: Occasional Past Drug Use History: Cocaine, IV Drug Use, Marijuana, Opiates, Prescription Drug Abuse - Past Family History Father Family Medical History: Respiratory Disorder Additional Family Medical History / Comment(s): Father at age 64 from Black lung disease Mother Family Medical History: Hypertension, Myocardial Infarction ([place]) Additional Family Medical History / Comment(s): Mother of an [place] at 78yrs old. Brother(s) Family Medical History: Myocardial Infarction ([place]) Additional Family Medical History / Comment(s): Patient has 10 brothers and 2 from myocardial infarction and had history of alcoholism. Sister(s) Family Medical History: Hypertension, Myocardial Infarction ([place]) Additional Family Medical History / Comment(s): He has 7 sisters that are alive with no major medical problems. He has one son that has and one daughter that is alive and okay. General Exam Limitations: no limitations General appearance: alert, in no apparent distress Head exam: Present: atraumatic, normocephalic Eye exam: Present: normal appearance, PERRL ENT exam: Present: normal exam Neck exam: Present: normal inspection. Absent: tenderness, meningismus Respiratory exam: Present: rhonchi (Scattered rhonchi). Absent: respiratory distress, wheezes Cardiovascular Exam: Present: regular rate, normal rhythm GI/Abdominal exam: Present: soft. Absent: distended, tenderness, guarding Neurological exam: Present: alert, oriented X3, CN II-XII intact, normal gait. Absent: motor sensory deficit Psychiatric exam: Present: depressed, flat affect, suicidal ideation Skin exam: Present: warm, dry, intact. Absent: cyanosis, diaphoretic Course Vital Signs 07/12/22 10:04 Temperature 98 F Pulse Rate 109 H Respiratory 18 Rate Blood Pressure 135/94 O2 Sat by Pulse 99 Oximetry - Reevaluation(s) Reevaluation #1: 07/12/22 10:21 Clear for EPS Medical Decision Making - Medical Decision Making Was pt. sent in by a medical professional or institution (, PA, SCUDDING INSPECTOR, urgent care, hospital, or fci...) When possible be specific @ -No Did you speak to anyone other than the patient for history (EMS, parent, family, police, friend...)? What history was obtained from this source @ -No Did you review nursing and triage notes (agree or disagree)? Why? @ -I reviewed and agree with nursing and triage notes Were old charts reviewed (outside hosp., previous admission, EMS record, old EKG, old radiological studies, urgent care reports/EKG's, fci records)? Report findings @ -No old charts were reviewed Differential Diagnosis (chest pain, altered mental status, abdominal pain women, abdominal pain men, vaginal bleeding, weakness, fever, dyspnea, syncope, headache, dizziness, GI bleed, back pain, seizure, CVA, palpatations, mental health, musculoskeletal)? @ Differential Mental Health Depression, anxiety, bipolar, psychosis, schizophrenia, borderline personality, situational depression, adjustment disorder, behavioral disorder, brain tumor, malingering, substance abuse, encephalopathy, medication reaction, dementia, hypothyroidism, degenerative neurologic disorder, lupus.... This is not meant to be all-inclusive list EKG interpreted by me (3pts min.). @ -As above X-rays interpreted by me (1pt min.). @No acute cardiopulmonary findings CT interpreted by me (1pt min.). @ -None done U/S interpreted by me (1pt. min.). @ -None done What testing was considered but not performed or refused? (CT, X-rays, U/S, labs)? Why? @ -None What meds were considered but not given or refused? Why? @ -None Did you discuss the management of the patient with other professionals (professionals i.e. , PA, SCUDDING INSPECTOR, lab, RT, psych nurse, social media developer, can intake worker, teacher, custom protection officer, immigration case worker)? Give summary @ -EPS nurse Vega Was smoking cessation discussed for >3mins.? @ -No Was critical care preformed (if so, how long)? @ -No Were there social determinants of health that impacted care today? How? (Homelessness, low income, unemployed, alcoholism, drug addiction, transportation, low edu. Level, literacy, decrease access to med. care, [facility], rehab)? @ -No Was there de-escalation of care discussed even if they declined (Discuss DNR or withdrawal of care, Hospice)? DNR status @ -No What co-morbidities impacted this encounter? (DM, HTN, Smoking, COPD, CAD, Cancer, CVA, ARF, Chemo, Hep., AIDS, mental health diagnosis, sleep apnea, morbid obesity)? @ -None Was patient admitted / discharged? Hospital course, mention meds given and route, prescriptions, significant lab abnormalities, going to OR and other pertinent info. @ -[Patient medically cleared and evaluated by EPS, felt to require inpatient psychiatric evaluation and treatment. I agree with this assessment. The patient will be admitted to this institution. Undiagnosed new problem with uncertain prognosis? @ -No Drug Therapy requiring intensive monitoring for toxicity (Heparin, Nitro, Insulin, Cardizem)? @ -No Were any procedures done? @ -No Diagnosis/symptom? @ -Depression, suicidal ideation, hallucination Acute, or Chronic, or Acute on Chronic? @ -Acute on chronic Uncomplicated (without systemic symptoms) or Complicated (systemic symptoms)? @ -Complicated Side effects of treatment? @ -No Exacerbation, Progression, or Severe Exacerbation? @ -No Poses a threat to life or bodily function? How? (Chest pain, [place], [place], pneumonia, PE, COPD, DKA, ARF, appy, cholecystitis, CVA, Diverticulitis, Homicidal, Suicidal, threat to staff... and all critical care pts) @ -[Yes, self-harm - Lab Data Lab Results 07/12/22 Range/Units 14:23 Coronavirus (PCR) Not Detected (Not Detectd) Disposition Clinical Impression: Schizophrenia, Depression, Suicidal ideation Disposition: ADMITTED IP TO THIS HOSP Condition: Stable Is patient prescribed a controlled substance at d/c from ED?: No Referrals: None,Stated [Primary Care Provider] - 1-2 days Time of Disposition: 15:05
--- NOTE | 2022-07-12 10:37 | XR ---
EXAMINATION TYPE: XR chest 2V DATE OF EXAM: 07/12/2022 COMPARISON: 07/02/2022 HISTORY: Shortness of breath TECHNIQUE: Frontal and lateral views of the chest are obtained. FINDINGS: Scattered senescent parenchymal changes noted. Hyperinflation compatible with COPD. No evidence for infiltrate. No evidence for atelectasis. Heart size is stable. Mediastinal structures are stable and grossly unremarkable. No evidence for hilar prominence. Degenerative changes dorsal spine. IMPRESSION: 1. No evidence for acute pulmonary disease.
[2022-07-12] MEDS ORDERED: MAG HYDROX/AL HYDROX/SIMETH 30 ML CUP PO PRN (16:02)
[2022-07-12] MEDS ORDERED: MAGNESIUM HYDROXIDE 2,400 MG/10 ML CUP PO PRN (16:02)
[2022-07-12] MEDS ORDERED: LORazepam 2 MG/ML INJ IM PRN (16:06)
[2022-07-12] MEDS ORDERED: HALOPERIDOL LACTATE 5 MG/ML 1 ML VIAL IM PRN (16:07)
[2022-07-12] MEDS: LORazepam 1 MG TAB PO PRN (16:44)
[2022-07-12] MEDS: ACETAMINOPHEN TAB 325 MG TAB PO PRN (18:06)
[2022-07-12] MEDS: haloperidoL 5 MG TAB PO PRN (20:43)
--- NOTE | 2022-07-12 22:21 | P.PN ---
Progress Note - Text Progress Note Date: 07/12/22 Attempted to see the patient in the mental health unit at 1999 on 07/12. The patient refused to be seen or be evaluated.
[2022-07-13] MEDS: NICOTINE 14MG/24HR PATCH TRANSDERM SCH (08:27)
[2022-07-13] MEDS: CLOPIDOGREL 75 MG TAB PO SCH (08:28)
[2022-07-13] MEDS: ATORVASTATIN 20 MG TAB PO SCH (08:28)
[2022-07-13] MEDS: ASPIRIN 81 MG PO SCH (08:28)
[2022-07-13] MEDS: haloperidoL 5 MG TAB PO PRN (08:29)
[2022-07-13] MEDS: ACETAMINOPHEN TAB 325 MG TAB PO PRN (08:29)
[2022-07-13] MEDS: LORazepam 1 MG TAB PO PRN (08:32)
--- NOTE | 2022-07-13 11:19 | P.HP ---
Psychiatric H&P - . H&P Date: 07/13/22 History & Physical: Allergies Allergy/AdvReac Type Severity Reaction Status Date / Time blueberry Allergy Rash/Hives Verified 07/12/22 15:22 nitroglycerin Allergy Swelling Verified 07/12/22 15:22 Vital Signs Temp 98.1 F 07/13/22 07:01 Pulse 84 07/13/22 07:01 Resp 14 07/13/22 07:01 BP 122/74 07/13/22 07:01 Pulse Ox 97 07/12/22 16:35 FiO2 Intake & Output 07/12/22 07/13/22 07/13/22 18:59 06:59 18:59 Weight 68.039 kg Laboratory Last Values Coronavirus (PCR) Not Detected (Not Detectd) 07/12/22 14:23 07/13/22 11:11 Psychiatric evaluation This is a psychiatric evaluation on Lele Scott who is a 61-year-old - [place] male in no comes to the ER with severe depression and anxiety feelings of helplessness and hopelessness suicidal ideations and plan Patient also reports that he has been drinking about 12 pack every day He says that he is also using cocaine until about 6 months ago He says that he wants to go to the rehab He says that he also has not been on his medications for a long period of time and used to be on Seroquel 300 mg at bedtime and Effexor XR 75 mg at bedtime Patient reports that he currently lives with his girlfriend Patient otherwise was not very forthcoming Past history personal social history: Patient remains very guarded and superficial and initially refused to answer any questions Patient however agreed to briefly talk to this physician as he wanted to have his medications reinstated Mental status examination: MENTAL STATUS EXAM: General Appearance: Patient appears to be thin, stated age is alert, patient was glum looking Behavior: Patient is standing without any agitation Speech: Patient's speech is fluent and nonpressured. She remains guarded and superficial Mood/Affect: Patient reports was downcast Affect was flat Suicidality/Homicidality: Patient denies having any homicidal ideation intent or plan. At this time He admits he helpless and hopeless Perceptions: Patient denies any visual hallucinations and denies any auditory hallucinations Though content/process: There is no evidence of any delusional thought content and thought process is linear and goal-directed. Memory and concentration: AOX3, grossly intact for the purposes of this session. Can spell "WORLD" backwards Judgment and insight: Impaired an impaired Diagnostic impression: Adjustment disorder with mixed emotional features Depressive disorder unspecified Alcohol use disorder unspecified Rule out personality disorder unspecified PLAN: -Patient is admitted under voluntary status to MHU for stabilization of psychiat seven symptoms and safety. Patient has signed adult voluntary form and medication consent and is placed in patient's chart. As far as medications will start the patient on his home meds Monitor for alcohol withdrawal symptoms with CIWA score As well as Seroquel 100 mg at bedtime and Effexor 75 mg by mouth every morning -Ativan and Haldol PRN for agitation/aggression -Patient was counselled on substance abuse and desired to cut back on use -Patient was informed of the risks, benefits and side effects of the medication and patient verbally consented to taking the medications. Patient signed med consent form and was placed in chart. -Internal Medicine consult to perform medical evaluation and physical. -SW on board for discharge planning. Encourage patient to participate in groups to work on coping skills. Leland Cohen M.D. 07/13/2022
[2022-07-13] MEDS: HYDROcodone/APAP 10-325MG 1 EACH TAB PO SCH ×2 (12:00→17:05)
[2022-07-13] MEDS: GABAPENTIN 300 MG CAP PO SCH ×3 (12:00→20:31)
[2022-07-13] MEDS: VENLAFAXINE HCL 75 MG TAB PO SCH (12:01)
[2022-07-13] MEDS ORDERED: QUEtiapine 100 MG TAB PO SCH (21:00)
[2022-07-14] MEDS: HYDROcodone/APAP 10-325MG 1 EACH TAB PO SCH ×4 (06:47→18:17)
[2022-07-14] MEDS: CLOPIDOGREL 75 MG TAB PO SCH (08:19)
[2022-07-14] MEDS: GABAPENTIN 300 MG CAP PO SCH ×3 (08:19→21:07)
[2022-07-14] MEDS: VENLAFAXINE HCL 75 MG TAB PO SCH (08:19)
[2022-07-14] MEDS: ASPIRIN 81 MG PO SCH (08:20)
[2022-07-14] MEDS: ATORVASTATIN 20 MG TAB PO SCH (08:20)
[2022-07-14] MEDS ORDERED: SERTRALINE 100 MG TAB PO SCH (09:00)
[2022-07-14 09:38] LABS: Basophils % (A) 0 %; Eosinophils % (A) 1 %; HCT 41.5 % (39.0-53.0); HGB 13.1 gm/dL (13.0-17.5); Lymphocytes # (A) 1.5 k/uL (1.0-4.8); Lymphocytes % (A) 41 %; MCHC 31.5 g/dL (31.0-37.0); MCV 101.5 fL (80.0-100.0); Macrocytosis Slight; Mean Platelet Volume 9.2; Monocytes # (A) 0.2 k/uL (0-1.0); Monocytes % (A) 6 %; Neutrophils # (A) 1.8 k/uL (1.3-7.7); Neutrophils % (A) 48 %; Platelet Count 158 k/uL (150-450); RBC 4.09 m/uL (4.30-5.90); RDW 13.7 % (11.5-15.5); WBC 3.7 k/uL (3.8-10.6)
[2022-07-14 10:00] LABS: ALT 29 U/L (4-49); AST 44 U/L (17-59); African American GFR (CKD) >90 (>60 ml/min/1.73 sqM); Albumin 4.4 g/dL (3.5-5.0); Alkaline Phosphatase 88 U/L (38-126); Anion Gap 9 mmol/L; Blood Urea Nitrogen 10 mg/dL (9-20); Calcium 10.1 mg/dL (8.4-10.2); Carbon Dioxide 30 mmol/L (22-30); Chloride 95 mmol/L (98-107); Glucose 176 mg/dL (74-99); Non-African American GFR(CKD) 87 (>60 ml/min/1.73 sqM); Potassium 4.2 mmol/L (3.5-5.1); Sodium 134 mmol/L (137-145); Total Protein 7.8 g/dL (6.3-8.2)
[2022-07-14] MEDS: NICOTINE 14MG/24HR PATCH TRANSDERM SCH (10:43)
--- NOTE | 2022-07-14 11:24 | P.PN ---
Progress Note - Text Progress Note Date: 07/14/22 Interval History: Patient was seen resting in bed and was directable and agreeable to speak with manual writer in his room. Currently, the patient reports that he has been experiencing auditory and visual hallucinations. He reports that auditory hallucinations have been causing him to feel homicidal and suicidal. He reports no particular person however states that he feels like he is very angry and would like to fight anybody. He states that he was nonadherent with his presc ribed medications but vehemently states that he did not engage in any substance use. He reports that he has been having difficulty with sleep and has had a poor appetite. He has been adherent with his medications and is reporting that they are helping mildly. He does report that he has been drinking heavily. Mental Status Exam: General Appearance: Patient appears to be stated age is alert, directable, and cooperative. Behavior: Patient is calmly lying down in bed without any agitated behavior. Speech: Patient's speech is fluent and nonpressured. Mood/Affect: Mood is improving mildly, affect is congruent and blunted. Suicidality/Homicidality: Patient reports both suicidal and homicidal ideation. Perceptions: Patient reports both auditory and visual hallucinations. Though content/process: There is no evidence of any delusional thought content and thought process is linear and goal-directed. Memory and concentration: AOX3, grossly intact for the purposes of this session Judgment and insight: Improving mildly Vital Signs Temp 98.4 F 07/14/22 06:34 Pulse 92 07/14/22 06:34 Resp 14 07/14/22 06:34 BP 114/86 07/14/22 06:34 Pulse Ox 97 07/12/22 16:35 FiO2 Laboratory Results WBC 3.7 k/uL (3.8-10.6) L 07/14/22 08:54 RBC 4.09 m/uL (4.30-5.90) L 07/14/22 08:54 Hgb 13.1 gm/dL (13.0-17.5) 07/14/22 08:54 Hct 41.5 % (39.0-53.0) 07/14/22 08:54 MCV 101.5 fL (80.0-100.0) H 07/14/22 08:54 MCH 32.0 pg (25.0-35.0) 07/14/22 08:54 MCHC 31.5 g/dL (31.0-37.0) 07/14/22 08:54 RDW 13.7 % (11.5-15.5) 07/14/22 08:54 Plt Count 158 k/uL (150-450) 07/14/22 08:54 MPV 9.2 07/14/22 08:54 Neutrophils % 48 % 07/14/22 08:54 Lymphocytes % 41 % 07/14/22 08:54 Monocytes % 6 % 07/14/22 08:54 Eosinophils % 1 % 07/14/22 08:54 Basophils % 0 % 07/14/22 08:54 Neutrophils # 1.8 k/uL (1.3-7.7) 07/14/22 08:54 Lymphocytes # 1.5 k/uL (1.0-4.8) 07/14/22 08:54 Monocytes # 0.2 k/uL (0-1.0) 07/14/22 08:54 Eosinophils # 0.0 k/uL (0-0.7) 07/14/22 08:54 Basophils # 0.0 k/uL (0-0.2) 07/14/22 08:54 Macrocytosis Slight 07/14/22 08:54 Sodium 134 mmol/L (137-145) L 07/14/22 08:54 Potassium 4.2 mmol/L (3.5-5.1) 07/14/22 08:54 Chloride 95 mmol/L (98-107) L 07/14/22 08:54 Carbon Dioxide 30 mmol/L (22-30) 07/14/22 08:54 Anion Gap 9 mmol/L 07/14/22 08:54 BUN 10 mg/dL (9-20) 07/14/22 08:54 Creatinine 0.94 mg/dL (0.66-1.25) 07/14/22 08:54 Est GFR (CKD-EPI)AfAm >90 (>60 ml/min/1.73 sqM) 07/14/22 08:54 Est GFR (CKD-EPI)NonAf 87 (>60 ml/min/1.73 sqM) 07/14/22 08:54 Glucose 176 mg/dL (74-99) H 07/14/22 08:54 Calcium 10.1 mg/dL (8.4-10.2) 07/14/22 08:54 Total Bilirubin 1.0 mg/dL (0.2-1.3) 07/14/22 08:54 AST 44 U/L (17-59) 07/14/22 08:54 ALT 29 U/L (4-49) 07/14/22 08:54 Alkaline Phosphatase 88 U/L (38-126) 07/14/22 08:54 Total Protein 7.8 g/dL (6.3-8.2) 07/14/22 08:54 Albumin 4.4 g/dL (3.5-5.0) 07/14/22 08:54 TSH 0.546 mIU/L (0.465-4.680) 07/14/22 08:54 Coronavirus (PCR) Not Detected (Not Detectd) 07/12/22 14:23 Assessment Major depressive disorder, recurrent, severe, with psychotic features Alcohol use disorder Cocaine use disorder, in early remission Nicotine dependence Plan: -Patient continues to meet criteria for inpatient psychiatric admission for symptom stabilization and safety. Patient has signed adult voluntary form and medication consent and was placed in patient's chart. -Medications: Continue gabapentin 300 mg by mouth 3 times a day Increase Seroquel to 150 mg daily at bedtime for mood augmentation/psychosis Effexor 75 mg by mouth daily for depression/anxiety -When necessary Ativan and Haldol for agitation/aggression. -NRT - nicotine patch -SW on board for discharge planning. Encouraged the patient to participate in milieu.
[2022-07-14 15:55] LABS: Chol/HDL Ratio 1.37 Ratio; LDL Cholesterol,Calculated 40.3 mg/dL; VLDL Calculation 13.72 mg/dL
[2022-07-14] MEDS ORDERED: QUEtiapine 50 MG TAB PO SCH (21:00)
[2022-07-15] MEDS: HYDROcodone/APAP 10-325MG 1 EACH TAB PO SCH ×6 (00:06→20:35)
--- NOTE | 2022-07-15 04:10 | P.CONS ---
History of Present Illness - Reason for Consult Consult date: 07/15/22 - History of Present Illness Patient is a 61-year-old male with a PMH of CAD status post multiple stents, tobacco abuse, and alcohol use who had presented to the emergency room with complaints of depression and suicidal ideation. The patient was admitted to the mental health area was seen and evaluated. The patient reports that he lost his brother roughly a week ago which has caused a lot of mental strain for him. He denied any physical complaints at the time of interview. He denied experiencing chest discomfort, shortness of breath, fever, chills, cough, nausea, vomiting, abdominal pain, diarrhea. Review of systems: Pertinent positives and negatives as discussed in HPI, a complete review of systems was performed and all other systems are negative. Physical examination: General: non toxic, no distress, appears at stated age, normal weight Derm: no unusual rashes/lesions, no unusual ecchymoses, warm, dry Head: atraumatic, normocephalic, symmetric Eyes: EOMI, no lid lag, anicteric sclera ENT: Nose and ears atraumatic, no thrush, no pharyngeal erythema Neck: trachea midline, supple Mouth: no lip lesion, mucus membranes moist Cardiovascular: S1S2 reg, no murmur, no edema Lungs: CTA bilateral, no rhonchi, no rales , no accessory muscle use Abdominal: soft, nontender to palpation, no guarding Ext: no gross muscle atrophy, no contractures, Neuro: No gross focal neuro deficits noted Psych: Alert, oriented, appropriate affect Assessment: Macrocytosis Leukopenia, at baseline Hyponatremia Depression and suicidal ideation Coronary artery disease status post multiple stents Imaging: Chest x-ray was unremarkable Data Review: Laboratory evaluation revealed WBC count 3.7, MCV 101.5, sodium 134, chloride 95, glucose 176, hemoglobin A1c 5.5, HDL 147. Plan: Check B12 and folate levels Defer management of depression and suicidal ideation to primary psychiatry service Continue with home medications Thank you for allowing us to participate in the care of this patient. We will follow peripherally. Do not hesitate to contact us with questions. Someone can be reached from the [facility] hospitalist group at all hours of the day at [phone]. Past Medical History Past Medical History: Coronary Artery Disease (CAD), Chest Pain / Angina, Hy perlipidemia, Myocardial Infarction (ID), Osteoarthritis (OA) Additional Past Medical History / Comment(s): arthritis in back and bilateral knees,hx hiatal hernia Last Myocardial Infarction Date:: 2004 History of Any Multi-Drug Resistant Organisms: None Reported Past Surgical History: Bowel Resection, Heart Catheterization With Stent Additional Past Surgical History / Comment(s): Cardiac stents x 3, bowel surgery for pinpoint hole in bowel, L knee arthroscopy, colonoscopy/benign polypectomies,hiatal hernia repair Past Anesthesia/Blood Transfusion Reactions: No Reported Reaction Date of Last Stent Placement:: 2013 Past Psychological History: Bipolar, Depression, PTSD, Schizophrenia Additional Psychological History / Comment(s): He states he goes to [facility]. Smoking Status: Current every day smoker Past Alcohol Use History: Occasional Additional Past Alcohol Use History / Comment(s): Pt states he started smoking in 1994 a pack will last him a month. Past Drug Use History: Cocaine, IV Drug Use, Marijuana, Opiates, Prescription Drug Abuse Additional Drug Use History / Comment(s): Pt states that he used MJ. Pt states that he has a history of cocaine, drinks a 12 pack per day. - Past Family History Father Family Medical History: Respiratory Disorder Additional Family Medical History / Comment(s): Father at age 64 from Black lung disease Mother Family Medical History: Hypertension, Myocardial Infarction (ID) Additional Family Medical History / Comment(s): Mother of an ID at 78yrs old. Brother(s) Family Medical History: Myocardial Infarction (ID) Additional Family Medical History / Comment(s): Patient has 10 brothers and 2 from myocardial infarction and had history of alcoholism. Sister(s) Family Medical History: Hypertension, Myocardial Infarction (ID) Additional Family Medical History / Comment(s): He has 7 sisters that are alive with no major medical problems. He has one son that has and one daughter that is alive and okay. Medications and Allergies Home Medications Medication Instructions Recorded Confirmed Type Aspirin EC [Ecotrin Low Dose] 81 mg PO DAILY 07/02/22 07/12/22 History Atorvastatin [Lipitor] 20 mg PO DAILY 07/02/22 07/12/22 History HYDROcodone/APAP 10-325MG [[place] 1 tab PO Q6HR 07/02/22 07/12/22 History 10-325] Naloxone HCl [Narcan] 4 mg NASAL DIRECTED PRN 07/02/22 07/12/22 History Clopidogrel [Plavix] 75 mg PO DAILY 30 Days #30 tablet 07/04/22 07/12/22 Rx Allergies Allergy/AdvReac Type Severity Reaction Status Date / Time blueberry Allergy Rash/Hives Verified 07/12/22 15:22 nitroglycerin Allergy Swelling Verified 07/12/22 15:22 Physical Exam Vitals: Vital Signs Temp Pulse Resp BP 07/14/22 06:34 98.4 F 92 14 114/86 Results CBC & Chem 7: 07/14/22 08:54 07/14/22 08:54 Labs: Abnormal Lab Results - Last 24 Hours (Table) 07/14/22 07/14/22 Range/Units 08:54 08:54 WBC 3.7 L (3.8-10.6) k/uL RBC 4.09 L (4.30-5.90) m/uL MCV 101.5 H (80.0-100.0) fL Sodium 134 L (137-145) mmol/L Chloride 95 L (98-107) mmol/L Glucose 176 H (74-99) mg/dL Cholesterol 201.00 H mg/dL HDL Cholesterol 147.00 H mg/dL
[2022-07-15] MEDS: ATORVASTATIN 20 MG TAB PO SCH (08:22)
[2022-07-15] MEDS: CLOPIDOGREL 75 MG TAB PO SCH (08:22)
[2022-07-15] MEDS: NICOTINE 14MG/24HR PATCH TRANSDERM SCH (08:22)
[2022-07-15] MEDS: GABAPENTIN 300 MG CAP PO SCH ×3 (08:22→20:34)
[2022-07-15] MEDS: VENLAFAXINE HCL 75 MG TAB PO SCH (08:22)
[2022-07-15] MEDS: ASPIRIN 81 MG PO SCH (08:22)
[2022-07-15] MEDS ORDERED: ONDANSETRON ODT 4 MG TAB PO PRN (10:18)
--- NOTE | 2022-07-15 12:41 | P.PN ---
Progress Note - Text Progress Note Date: 07/15/22 Interval History: Patient was seen resting in bed and was directable and agreeable to speak with parts data writer in the office. Currently, the patient continues to report suicidal and homicidal ideation. He reports no particular target. He reports auditory hallucinations and visual hallucinations that have been bothersome and causing him significant distress and an inability to sleep. He has been adherent with his medications and is not reporting any significant side effects. He remains vehement that he is not using any substances. The patient was very upset about being moved into a room with a roommate. He was however directable after discussion. Mental Status Exam: General Appearance: Patient appears to be stated age is alert, directable, and cooperative. Behavior: Patient is calmly lying down in bed without any agitated behavior. Speech: Patient's speech is fluent and nonpressured. Mood/Affect: Mood is improving mildly, affect is congruent and blunted. Suicidality/Homicidality: Patient reports both suicidal and homicidal ideation. Perceptions: Patient reports both auditory and visual hallucinations. Though content/process: There is no evidence of any delusional thought content and thought process is linear and goal-directed. Memory and concentration: AOX3, grossly intact for the purposes of this session Judgment and insight: Improving mildly Vital Signs Temp 98.3 F 07/15/22 06:00 Pulse 113 H 07/15/22 08:23 Resp 16 07/15/22 06:00 BP 112/83 07/15/22 08:23 Pulse Ox 96 07/15/22 06:00 FiO2 Laboratory Results - Last 24 Hours 07/14/22 07/14/22 08:54 08:[address] Glu mg/dL 111 Hemoglobin A1c 5.5 Triglycerides 68.60 Cholesterol 201.00 H LDL Cholesterol, Calc 40.3 VLDL Cholesterol, Calc 13.72 HDL Cholesterol 147.00 H Cholesterol/HDL Ratio 1.37 Assessment Major depressive disorder, recurrent, severe, with psychotic features Alcohol use disorder Cocaine use disorder, in early remission Nicotine dependence Plan: -Patient continues to meet criteria for inpatient psychiatric admission for symptom stabilization and safety. Patient has signed adult voluntary form and medication consent and was placed in patient's chart. -Medications: Continue gabapentin 300 mg by mouth 3 times a day Increase Seroquel to 200 mg daily at bedtime for mood augmentation/psychosis Increase Effexor to 150 mg by mouth daily for depression/anxiety -When necessary Ativan and Haldol for agitation/aggression. -NRT - nicotine patch -SW on board for discharge planning. Encouraged the patient to participate in milieu.
[2022-07-15] MEDS: QUEtiapine 200 MG TAB PO SCH (20:34)
[2022-07-16] MEDS: HYDROcodone/APAP 10-325MG 1 EACH TAB PO SCH ×5 (06:34→20:27)
[2022-07-16] MEDS: NICOTINE 14MG/24HR PATCH TRANSDERM SCH (08:01)
[2022-07-16] MEDS: ATORVASTATIN 20 MG TAB PO SCH (08:04)
[2022-07-16] MEDS: ASPIRIN 81 MG PO SCH (08:04)
[2022-07-16] MEDS: VENLAFAXINE HCL 75 MG TAB PO SCH (08:04)
[2022-07-16] MEDS: CLOPIDOGREL 75 MG TAB PO SCH (08:04)
[2022-07-16] MEDS: GABAPENTIN 300 MG CAP PO SCH ×3 (08:06→20:27)
--- NOTE | 2022-07-16 11:17 | P.PN ---
Progress Note - Text Progress Note Date: 07/16/22 Interval History: Patient was seen resting in bed and was directable and agreeable to speak with information writer in the office. Patient reports that he has been feeling increasingly depressed and has been crying. He reports he has been thinking about his brother. He continues to report suicidal and homicidal ideation. He reprots no particular target. He reports ongoing auditory hallucinations that are telling him he is worthless. He reports vague visual hallucinations in the form of people. He has been adherent with his medications and is not reporting any side effects. He reports no issues regarding his sleep or appetite. He has been attending groups. Mental Status Exam: General Appearance: Patient appears to be stated age is alert, directable, and cooperative. Behavior: Patient is attending group and then sits appropriately with no elevated psychomotor activity. Patient appears tearful. Speech: Patient's speech is fluent and nonpressured. Mood/Affect: Mood is "depressed," affect is congruent and blunted. Tearful. Suicidality/Homicidality: Patient reports both suicidal and homicidal ideation. Perceptions: Patient reports both auditory and visual hallucinations. Though content/process: There is no evidence of any delusional thought content and thought process is linear and goal-directed. Memory and concentration: AOX3, grossly intact for the purposes of this session Judgment and insight: Improving mildly Vital Signs Temp 98.3 F 07/16/22 06:28 Pulse 73 07/16/22 06:28 Resp 14 07/16/22 06:28 BP 94/61 07/16/22 06:28 Pulse Ox 96 07/15/22 06:00 FiO2 Laboratory Results - Last 24 Hours 07/14/22 08:[address] Glu mg/dL 111 Hemoglobin A1c 5.5 Assessment Major depressive disorder, recurrent, severe, with psychotic features Alcohol use disorder Cocaine use disorder, in early remission Nicotine dependence Plan: -Patient continues to meet criteria for inpatient psychiatric admission for symptom stabilization and safety. Patient has signed adult voluntary form and medication consent and was placed in patient's chart. -Medications: Continue gabapentin 300 mg by mouth 3 times a day Continue Seroquel 200 mg daily at bedtime for mood augmentation/psychosis Continue Effexor 150 mg by mouth daily for depression/anxiety -When necessary Ativan and Haldol for agitation/aggression. -NRT - nicotine patch -SW on board for discharge planning. Encouraged the patient to participate in milieu.
[2022-07-16] MEDS: QUEtiapine 200 MG TAB PO SCH (20:27)
[2022-07-16 22:36] LABS: Glucose,Whole Blood 94 mg/dL (70-110)
[2022-07-17] MEDS: ATORVASTATIN 20 MG TAB PO SCH (08:02)
[2022-07-17] MEDS: ASPIRIN 81 MG PO SCH (08:02)
[2022-07-17] MEDS: CLOPIDOGREL 75 MG TAB PO SCH (08:02)
[2022-07-17] MEDS: HYDROcodone/APAP 10-325MG 1 EACH TAB PO SCH ×2 (08:02→11:39)
[2022-07-17] MEDS: VENLAFAXINE HCL 75 MG TAB PO SCH (08:03)
[2022-07-17] MEDS: MULTIVITAMINS, THERA 1 EACH TAB PO SCH (08:03)
[2022-07-17] MEDS: GABAPENTIN 300 MG CAP PO SCH ×3 (08:03→20:37)
[2022-07-17] MEDS: NICOTINE 14MG/24HR PATCH TRANSDERM SCH (08:03)
--- NOTE | 2022-07-17 11:28 | P.PN ---
Progress Note - Text Progress Note Date: 07/17/22 Interval History: Patient was seen resting in bed and was directable and agreeable to speak with parts data writer in the office. Patient reports that he is feeling better today. He reports he was experiencing suicidal thoughts this morning however is no longer experiencing any homicidal ideation. He reports that he had thoughts of ending himself and be with his brother. He reports improvement in regards to his auditory and visual hallucinations. He states his symptoms are less severe. He does however continue to mourn the loss of his older brother. He states he continues to struggle with his absence and has been crying. He has been participating in groups. He has been adherent with his medications and reports no significant side effects. Mental Status Exam: General Appearance: Patient appears to be stated age is alert, directable, and cooperative. Behavior: Patient is attending group and then sits appropriately with no elevated psychomotor activity. Patient appears tearful. Speech: Patient's speech is fluent and nonpressured. Mood/Affect: Mood is "a little better," affect is congruent and constricted. Appropriately tearful. Suicidality/Homicidality: Patient reports both suicidal and homicidal ideation. Perceptions: Patient reports both auditory and visual hallucinations. Though content/process: There is no evidence of any delusional thought content and thought process is linear and goal-directed. Memory and concentration: AOX3, grossly intact for the purposes of this session Judgment and insight: Improving mildly Vital Signs Temp 98 F 07/17/22 08:05 Pulse 78 07/17/22 08:05 Resp 16 07/17/22 08:05 BP 135/81 07/17/22 08:05 Pulse Ox 97 07/17/22 06:19 FiO2 Laboratory Results - Last 24 Hours 07/16/22 07/16/22 11:29 22:35 POC Glucose (mg/dL) 94 POC Glu Title I Paraprofessional ID Reina Du Vitamin B12 344.0 Assessment Major depressive disorder, recurrent, severe, with psychotic features Alcohol use disorder Cocaine use disorder, in early remission Nicotine dependence Plan: -Patient continues to meet criteria for inpatient psychiatric admission for symptom stabilization and safety. Patient has signed adult voluntary form and medication consent and was placed in patient's chart. -Medications: Continue gabapentin 300 mg by mouth 3 times a day Continue Seroquel 200 mg daily at bedtime for mood augmentation/psychosis Continue Effexor 150 mg by mouth daily for depression/anxiety -When necessary Ativan and Haldol for agitation/aggression. -NRT - nicotine patch -SW on board for discharge planning. Encouraged the patient to participate in milieu.
[2022-07-17] MEDS: QUEtiapine 200 MG TAB PO SCH (20:35)
[2022-07-17] MEDS: HYDROcodone/APAP 10-325MG 1 EACH TAB PO PRN (20:38)
[2022-07-18] MEDS: ASPIRIN 81 MG PO SCH (08:22)
[2022-07-18] MEDS: GABAPENTIN 300 MG CAP PO SCH ×3 (08:22→20:26)
[2022-07-18] MEDS: CLOPIDOGREL 75 MG TAB PO SCH (08:22)
[2022-07-18] MEDS: VENLAFAXINE HCL 75 MG TAB PO SCH (08:22)
[2022-07-18] MEDS: ATORVASTATIN 20 MG TAB PO SCH (08:23)
[2022-07-18] MEDS: MULTIVITAMINS, THERA 1 EACH TAB PO SCH (08:23)
--- NOTE | 2022-07-18 11:42 | P.PN ---
Progress Note - Text Progress Note Date: 07/18/22 Interval History: Patient was seen resting in bed and was directable and agreeable to speak with blog writer in the office. Currently, the patient reports that he has been experiencing auditory hallucinations in the form of "chuckling by my ear." He expresses that this has been causing him significant distress. He does report that he was having suicidal thoughts and urges this morning. He is denying any homicidal ideation, intention, and/or plan. He is not reporting any visual hallucinations. He has been in adherent with his medication and is not reporting any significant side effects. He does express that he continues to experience low appetite and low mood. He reports difficulty with sleep is ongoing. Mental Status Exam: General Appearance: Patient appears to be stated age is alert, directable, and cooperative. Behavior: Patient is attending group and then sits appropriately with no elevated psychomotor activity. Speech: Patient's speech is fluent and nonpressured. Mood/Affect: Mood is "not good," affect is congruent and blunted. Suicidality/Homicidality: Patient reports suicidal ideation. No intention or plan. No homicidal ideation. Perceptions: Patient reports auditory but no visual hallucinations. Though content/process: There is no evidence of any delusional thought content and thought process is linear and goal-directed. Memory and concentration: AOX3, grossly intact for the purposes of this session Judgment and insight: Improving mildly Vital Signs Temp 98.3 F 07/18/22 06:27 Pulse 87 07/18/22 06:27 Resp 17 07/18/22 06:27 BP 109/74 07/18/22 06:27 Pulse Ox 96 07/18/22 06:27 FiO2 Laboratory Results WBC 3.7 k/uL (3.8-10.6) L 07/14/22 08:54 RBC 4.09 m/uL (4.30-5.90) L 07/14/22 08:54 Hgb 13.1 gm/dL (13.0-17.5) 07/14/22 08:54 Hct 41.5 % (39.0-53.0) 07/14/22 08:54 MCV 101.5 fL (80.0-100.0) H 07/14/22 08:54 MCH 32.0 pg (25.0-35.0) 07/14/22 08:54 MCHC 31.5 g/dL (31.0-37.0) 07/14/22 08:54 RDW 13.7 % (11.5-15.5) 07/14/22 08:54 Plt Count 158 k/uL (150-450) 07/14/22 08:54 MPV 9.2 07/14/22 08:54 Neutrophils % 48 % 07/14/22 08:54 Lymphocytes % 41 % 07/14/22 08:54 Monocytes % 6 % 07/14/22 08:54 Eosinophils % 1 % 07/14/22 08:54 Basophils % 0 % 07/14/22 08:54 Neutrophils # 1.8 k/uL (1.3-7.7) 07/14/22 08:54 Lymphocytes # 1.5 k/uL (1.0-4.8) 07/14/22 08:54 Monocytes # 0.2 k/uL (0-1.0) 07/14/22 08:54 Eosinophils # 0.0 k/uL (0-0.7) 07/14/22 08:54 Basophils # 0.0 k/uL (0-0.2) 07/14/22 08:54 Macrocytosis Slight 07/14/22 08:54 Sodium 134 mmol/L (137-145) L 07/14/22 08:54 Potassium 4.2 mmol/L (3.5-5.1) 07/14/22 08:54 Chloride 95 mmol/L (98-107) L 07/14/22 08:54 Carbon Dioxide 30 mmol/L (22-30) 07/14/22 08:54 Anion Gap 9 mmol/L 07/14/22 08:54 BUN 10 mg/dL (9-20) 07/14/22 08:54 Creatinine 0.94 mg/dL (0.66-1.25) 07/14/22 08:54 Est GFR (CKD-EPI)AfAm >90 (>60 ml/min/1.73 sqM) 07/14/22 08:54 Est GFR (CKD-EPI)NonAf 87 (>60 ml/min/1.73 sqM) 07/14/22 08:54 Glucose 176 mg/dL (74-99) H 07/14/22 08:54 POC Glucose (mg/dL) 94 mg/dL (70-110) 07/16/22 22:35 POC Glu Master Chef ID Reina Du 07/16/22 22:[address] Glu mg/dL 111 mg/dL 07/14/22 08:54 Hemoglobin A1c 5.5 % 07/14/22 08:54 Calcium 10.1 mg/dL (8.4-10.2) 07/14/22 08:54 Total Bilirubin 1.0 mg/dL (0.2-1.3) 07/14/22 08:54 AST 44 U/L (17-59) 07/14/22 08:54 ALT 29 U/L (4-49) 07/14/22 08:54 Alkaline Phosphatase 88 U/L (38-126) 07/14/22 08:54 Total Protein 7.8 g/dL (6.3-8.2) 07/14/22 08:54 Albumin 4.4 g/dL (3.5-5.0) 07/14/22 08:54 Triglycerides 68.60 mg/dL 07/14/22 08:54 Cholesterol 201.00 mg/dL H 07/14/22 08:54 LDL Cholesterol, Calc 40.3 mg/dL 07/14/22 08:54 VLDL Cholesterol, Calc 13.72 mg/dL 07/14/22 08:54 HDL Cholesterol 147.00 mg/dL H 07/14/22 08:54 Cholesterol/HDL Ratio 1.37 Ratio 07/14/22 08:54 Vitamin B12 344.0 pg/mL (200.0-944.0) 07/16/22 11:29 RBC Folate 661 ng/mL (280 - 791) 07/16/22 11:29 TSH 0.546 mIU/L (0.465-4.680) 07/14/22 08:54 Coronavirus (PCR) Not Detected (Not Detectd) 07/12/22 14:23 Assessment Major depressive disorder, recurrent, severe, with psychotic features Alcohol use disorder Cocaine use disorder, in early remission Nicotine dependence Plan: -Patient continues to meet criteria for inpatient psychiatric admission for symptom stabilization and safety. Patient has signed adult voluntary form and medication consent and was placed in patient's chart. -Medications: Continue gabapentin 300 mg by mouth 3 times a day Increase Seroquel to 300 mg daily at bedtime for mood augmentation/psychosis Continue Effexor 150 mg by mouth daily for depression/anxiety -When necessary Ativan and Haldol for agitation/aggression. -NRT - nicotine patch -SW on board for discharge planning. Encouraged the patient to participate in milieu.
[2022-07-18] MEDS ORDERED: QUEtiapine 100 MG TAB PO SCH (21:00)
--- NOTE | 2022-07-19 08:01 | P.PN ---
Subjective Progress Note Date: 07/19/22 Patient was seen resting in bed and was directable and agreeable to speak with personal lines underwriter in the office. Currently, the patient reports that he has been experiencing auditory hallucinations in the form of "chuckling by my ear." He expresses that this has been causing him significant distress. He does report that he was having suicidal thoughts and urges this morning. He is denying any homicidal ideation, intention, and/or plan. He is not reporting any visual hallucinations. He has been in adherent with his medication and is not reporting any significant side effects. He does express that he continues to experience low appetite and low mood. He reports difficulty with sleep is ongoing. Mental Status Exam: General Appearance: Patient appears to be stated age is alert, directable, and cooperative. Behavior: The patient came readily although he was lying in bed when I came to see him and was cooperative Speech: Patient's speech is fluent and nonpressured. Mood/Affect: Mood is blunted. He says he is feeling better and especially the voices are somewhat calmer and not suicidal today. Suicidality/Homicidality: Patient reports no suicidal ideation since yesterday. No intention or plan. No homicidal ideation. Perceptions: Patient reports auditory but no visual hallucinations and he says these are somewhat calmer and that he is sleeping better. Though content/process: There is no evidence of any delusional thought content and thought process is linear and goal-directed. Memory and concentration: AOX3, grossly intact for the purposes of this session Judgment and insight: Normal judgment and insight somewhat limited Assessment Major depressive disorder, recurrent, severe, with psychotic features Alcohol use disorder Cocaine use disorder, in early remission Nicotine dependence Plan: -Patient continues to meet criteria for inpatient psychiatric admission for symptom stabilization and safety. Patient has signed adult voluntary form and medication consent and was placed in patient's chart. -Medications: Continue gabapentin 300 mg by mouth 3 times a day Increase Seroquel to 400 mg daily at bedtime for mood augmentation/psychosis Continue Effexor 150 mg by mouth daily for depression/anxiety he has been on this dose for a long period time and it 150 it's appears serotonin medicine might be useful increase that to 225 but the patient is hesitant to change any medications. -When necessary Ativan and Haldol for agitation/aggression. -NRT - nicotine patch -SW on board for discharge planning. Encouraged the patient to participate in milieu. Objective - Vital Signs Vital signs: Vital Signs Temp 97.8 F 07/19/22 05:36 Pulse 95 07/19/22 05:36 Resp 18 07/19/22 05:36 BP 113/78 07/19/22 05:36 Pulse Ox 98 07/19/22 05:36 FiO2 - Labs CBC & Chem 7: 07/14/22 08:54 07/14/22 08:54
[2022-07-19] MEDS: MULTIVITAMINS, THERA 1 EACH TAB PO SCH (08:08)
[2022-07-19] MEDS: ATORVASTATIN 20 MG TAB PO SCH (08:08)
[2022-07-19] MEDS: GABAPENTIN 300 MG CAP PO SCH ×3 (08:08→20:40)
[2022-07-19] MEDS: VENLAFAXINE HCL 75 MG TAB PO SCH (08:08)
[2022-07-19] MEDS: CLOPIDOGREL 75 MG TAB PO SCH (08:08)
[2022-07-19] MEDS: ASPIRIN 81 MG PO SCH (08:08)
[2022-07-19] MEDS: LORazepam 1 MG TAB PO PRN ×2 (08:09→15:53)
[2022-07-19] MEDS: QUEtiapine 400 MG TAB PO SCH (20:40)
[2022-07-20] MEDS: ASPIRIN 81 MG PO SCH (08:24)
[2022-07-20] MEDS: CLOPIDOGREL 75 MG TAB PO SCH (08:24)
[2022-07-20] MEDS: GABAPENTIN 300 MG CAP PO SCH ×3 (08:24→20:23)
[2022-07-20] MEDS: ATORVASTATIN 20 MG TAB PO SCH (08:24)
[2022-07-20] MEDS: MULTIVITAMINS, THERA 1 EACH TAB PO SCH (08:24)
[2022-07-20] MEDS: VENLAFAXINE HCL 75 MG TAB PO SCH (08:24)
[2022-07-20] MEDS: HYDROcodone/APAP 10-325MG 1 EACH TAB PO PRN (08:25)
[2022-07-20] MEDS: LORazepam 1 MG TAB PO PRN ×2 (12:12→19:43)
--- NOTE | 2022-07-20 15:19 | P.PN ---
Subjective Progress Note Date: 07/20/22 Principal diagnosis: Major depressive disorder, recurrent, severe, with psychotic features Alcohol use disorder Cocaine use disorder, in early remission Nicotine dependence Patient was seen resting in bed , but did not want to get up and come talk to me. He assures me that his voices continued to decrease and does not want to increase his medicine anymore He denies any suicidal thoughts today. He is denying any homicidal ideation, intention, and/or plan. He is not reporting any visual hallucinations. He has been adherent with his medication and is not reporting any significant side effects. He does express that he continues to experience low appetite but better mood. He said that he slept better last night. Mental Status Exam: General Appearance: Patient appears to be stated age is alert, directable, and cooperative. Behavior: He was not agitated but he didn't want to come he said I've been doing things all day I just want quiet time to myself. Speech: Patient's speech is fluent and nonpressured however he is vague and not much content to his speech. Mood/Affect: Mood is blunted. He says he is feeling better and especially the voices are somewhat calmer and not suicidal in the last 2 days. Suicidality/Homicidality: Patient reports no suicidal ideation since yesterday. No intention or plan. No homicidal ideation. Perceptions: Patient reports auditory but no visual hallucinations and he says these are progressively calmer and that he is sleeping better. Though content/process: There is no evidence of any delusional thought content and thought process is linear and goal-directed. Memory and concentration: AOX3, grossly intact for the purposes of this session Judgment and insight: Normal judgment and insight somewhat limited Assessment Major depressive disorder, recurrent, severe, with psychotic features Alcohol use disorder Cocaine use disorder, in early remission Nicotine dependence Plan: No further change in medication -Patient continues to meet criteria for inpatient psychiatric admission for symptom stabilization and safety. Patient has signed adult voluntary form and medication consent and was placed in patient's chart. -Medications: Continue gabapentin 300 mg by mouth 3 times a day Continue Seroquel to 400 mg daily at bedtime for mood augmentation/psychosis Continue Effexor 150 mg by mouth daily for depression/anxiety he has been on this dose for a long period time and it 150 it's appears serotonin medicine might be useful increase that to 225 but the patient is hesitant to change any medications. -When necessary Ativan and Haldol for agitation/aggression. -NRT - nicotine patch -SW on board for discharge planning. Encouraged the patient to participate in [facility]. Objective - Vital Signs Vital signs: Vital Signs Temp 97.8 F 07/19/22 05:36 Pulse 95 07/19/22 05:36 Resp 18 07/19/22 05:36 BP 113/78 07/19/22 05:36 Pulse Ox 98 07/19/22 05:36 FiO2 Intake & Output 07/19/22 07/20/22 07/20/22 18:59 06:59 18:59 Weight 67 kg - Labs CBC & Chem 7: 07/14/22 08:54 07/14/22 08:54
[2022-07-20] MEDS: QUEtiapine 400 MG TAB PO SCH (20:23)
[2022-07-21] MEDS: GABAPENTIN 300 MG CAP PO SCH ×3 (08:13→20:39)
[2022-07-21] MEDS: CLOPIDOGREL 75 MG TAB PO SCH (08:13)
[2022-07-21] MEDS: ASPIRIN 81 MG PO SCH (08:13)
[2022-07-21] MEDS: ATORVASTATIN 20 MG TAB PO SCH (08:13)
[2022-07-21] MEDS: MULTIVITAMINS, THERA 1 EACH TAB PO SCH (08:14)
[2022-07-21] MEDS: VENLAFAXINE HCL 75 MG TAB PO SCH (08:14)
[2022-07-21] MEDS: LORazepam 1 MG TAB PO PRN (08:15)
--- NOTE | 2022-07-21 11:50 | P.PN ---
Progress Note - Text Progress Note Date: 07/21/22 Interval History: Patient was seen attending group and was directable and agreeable to speak with tag writer in the office. Currently, the patient reports that although he is feeling better, he continues to experience suicidal thoughts. He does express concerns for returning home and states that he would like to go straight to [facility] for rehab. He reports he is worried about his safety and is concerned about drinking which leads to his suicidal thoughts and behaviors. He is not reporting any homicidal ideation. He can use to report auditory hallucinations however states that they're less severe. He reports no visual hallucinations. He does report that his appetite has improved. He denies any issues regarding his sleep or his hygiene. He reports no medical issues or concerns. Mental Status Exam: General Appearance: Patient appears to be stated age is alert, directable, and cooperative. Behavior: Patient is calmly seated without any agitated behavior. Speech: Patient's speech is fluent and nonpressured. Mood/Affect: Mood is improving mildly, affect is congruent and blunted. Suicidality/Homicidality: Patient reports suicidal ideation but denies any homicidal ideation. Perceptions: Patient denies any visual hallucinations however he does endorse auditory hallucinations. Though content/process: There is no evidence of any delusional thought content and thought process is linear and goal-directed. Memory and concentration: AOX3, grossly intact for the purposes of this session Judgment and insight: Improving mildly Vital Signs Temp 98.2 F 07/21/22 08:16 Pulse 102 H 07/21/22 08:16 Resp 18 07/19/22 05:36 BP 103/77 07/21/22 08:16 Pulse Ox 98 07/19/22 05:36 FiO2 Intake & Output 07/20/22 07/21/22 07/21/22 18:59 06:59 18:59 Weight 67 kg Assessment Major depressive disorder, recurrent, severe, with psychotic features Alcohol use disorder Cocaine use disorder, in early remission Nicotine dependence Plan: -Patient continues to meet criteria for inpatient psychiatric admission for symptom stabilization and safety. Patient has signed adult voluntary form and medication consent and was placed in patient's chart. -Medications: Continue gabapentin 300 mg by mouth 3 times a day Continue Seroquel 400 mg daily at bedtime for mood augmentation/psychosis Continue Effexor 150 mg by mouth daily for depression/anxiety -When necessary Ativan and Haldol for agitation/aggression. -NRT - nicotine patch -SW on board for discharge planning. Encouraged the patient to participate in milieu.
[2022-07-21] MEDS ORDERED: HYDROcodone/APAP 10-325MG 1 EACH TAB PO PRN (13:13)
[2022-07-21] MEDS: QUEtiapine 400 MG TAB PO SCH (20:39)
[2022-07-22] MEDS: GABAPENTIN 300 MG CAP PO SCH ×3 (08:20→20:37)
[2022-07-22] MEDS: CLOPIDOGREL 75 MG TAB PO SCH (08:20)
[2022-07-22] MEDS: ASPIRIN 81 MG PO SCH (08:20)
[2022-07-22] MEDS: ATORVASTATIN 20 MG TAB PO SCH (08:20)
[2022-07-22] MEDS: VENLAFAXINE HCL 75 MG TAB PO SCH (08:20)
[2022-07-22] MEDS: MULTIVITAMINS, THERA 1 EACH TAB PO SCH (08:20)
[2022-07-22] MEDS: LORazepam 1 MG TAB PO PRN (08:36)
[2022-07-22] MEDS ORDERED: HYDROcodone/APAP 10-325MG 1 EACH TAB PO PRN (11:25)
--- NOTE | 2022-07-22 11:37 | P.PN ---
Progress Note - Text Progress Note Date: 07/22/22 Interval History: Patient was seen attending group and was directable and agreeable to speak with bond writer in his room. Currently, the patient reports that he is "not ready to go." He states that he is very scared for discharge and that he was to be discharged like going to rehab, he continues to experience suicidal thoughts. He reports that he is experiencing auditory hallucinations. He is denying any visual hallucinations. He states that he really wants to go to rehab because his alcohol uses been constantly causing him severe depression and a strained relationship with him and his family. He has been adherent with his medication and is not reporting any significant side effects. He does express that his concerns for relapse is very high. He states that he is waiting to be accepted at rehab. Mental Status Exam: General Appearance: Patient appears to be stated age is alert, directable, and cooperative. Behavior: Patient is calmly seated without any agitated behavior. Speech: Patient's speech is fluent and nonpressured. Mood/Affect: Mood is "not ready to go," affect is anxious and desperate Suicidality/Homicidality: Patient reports suicidal ideation but denies any homicidal ideation. Perceptions: Patient denies any visual hallucinations however he does endorse auditory hallucinations. Though content/process: There is no evidence of any delusional thought content and thought process is linear and goal-directed. Memory and concentration: AOX3, grossly intact for the purposes of this session Judgment and insight: Improving mildly Vital Signs Temp 97.9 F 07/22/22 06:29 Pulse 92 07/22/22 06:29 Resp 17 07/22/22 06:29 BP 103/68 07/22/22 06:29 Pulse Ox 99 07/22/22 06:29 FiO2 Assessment Major depressive disorder, recurrent, severe, with psychotic features Alcohol use disorder Cocaine use disorder, in early remission Nicotine dependence Plan: -Patient continues to meet criteria for inpatient psychiatric admission for symptom stabilization and safety. Patient has signed adult voluntary form and medication consent and was placed in patient's chart. -Medications: Continue gabapentin 300 mg by mouth 3 times a day Continue Seroquel 400 mg daily at bedtime for mood augmentation/psychosis Continue Effexor 150 mg by mouth daily for depression/anxiety -We are tapering the patient's [place] (now one per day from 3 times per day). Plan to initiate naltrexone prior to discharge to rehab. -When necessary Ativan and Haldol for agitation/aggression. -NRT - nicotine patch -SW on board for discharge planning. Encouraged the patient to participate in milieu.
[2022-07-22] MEDS: QUEtiapine 400 MG TAB PO SCH (20:37)
[2022-07-23 06:40] VITALS: RESP 16
[2022-07-23] MEDS: ASPIRIN 81 MG PO SCH (08:08)
[2022-07-23] MEDS: MULTIVITAMINS, THERA 1 EACH TAB PO SCH (08:08)
[2022-07-23] MEDS: GABAPENTIN 300 MG CAP PO SCH ×3 (08:08→20:45)
[2022-07-23] MEDS: ATORVASTATIN 20 MG TAB PO SCH (08:08)
[2022-07-23] MEDS: VENLAFAXINE HCL 75 MG TAB PO SCH (08:08)
[2022-07-23] MEDS: CLOPIDOGREL 75 MG TAB PO SCH (08:08)
--- NOTE | 2022-07-23 11:46 | P.PN ---
Progress Note - Text Progress Note Date: 07/23/22 Interval History: Patient was seen attending group and was directable and agreeable to speak with race and sports book writer in his room. The patient is currently denying any suicidal or homicidal ideation, intention, and/or plan. He is not reporting any auditory or visual hallucinations. He is not reporting any paranoia or delusions. Remains future and goal oriented and states that he got accepted to go to a sober living facility, [facility] in [place] tomorrow. Mental Status Exam: General Appearance: Patient appears to be stated age is alert, directable, and cooperative. Behavior: Patient is calmly seated without any agitated behavior. Speech: Patient's speech is fluent and nonpressured. Mood/Affect: Mood is "looking for to tomorrow," affect is euthymic and constricted Suicidality/Homicidality: Patient reports suicidal ideation but denies any homicidal ideation. Perceptions: Patient denies any visual hallucinations however he does endorse auditory hallucinations. Though content/process: There is no evidence of any delusional thought content and thought process is linear and goal-directed. Memory and concentration: AOX3, grossly intact for the purposes of this session Judgment and insight: Improving mildly Vital Signs Temp 97.2 F L 07/23/22 06:18 Pulse 94 07/23/22 06:18 Resp 16 07/23/22 06:18 BP 104/78 07/23/22 06:18 Pulse Ox 99 07/22/22 06:29 FiO2 Assessment Major depressive disorder, recurrent, severe, with psychotic features Alcohol use disorder Cocaine use disorder, in early remission Nicotine dependence Plan: -Patient continues to meet criteria for inpatient psychiatric admission for symptom stabilization and safety. Patient has signed adult voluntary form and medication consent and was placed in patient's chart. Patient is scheduled to go to rehab tomorrow. Transportation is arranged for tomorrow. -Medications: Continue gabapentin 300 mg by mouth 3 times a day Continue Seroquel 400 mg daily at bedtime for mood augmentation/psychosis Continue Effexor 150 mg by mouth daily for depression/anxiety -Discontinue narcotic. -When necessary Ativan and Haldol for agitation/aggression. -NRT - nicotine patch -SW on board for discharge planning. Encouraged the patient to participate in milieu.
[2022-07-23 12:50] VITALS: BMI 21.8
[2022-07-23] MEDS: LORazepam 1 MG TAB PO PRN (16:35)
[2022-07-23] MEDS: QUEtiapine 400 MG TAB PO SCH (20:45)
[2022-07-24 06:48] VITALS: BP 100/70; PULSE 103; TEMP 97.5
[2022-07-24] MEDS: MULTIVITAMINS, THERA 1 EACH TAB PO SCH (08:28)
[2022-07-24] MEDS: ASPIRIN 81 MG PO SCH (08:28)
[2022-07-24] MEDS: CLOPIDOGREL 75 MG TAB PO SCH (08:28)
[2022-07-24] MEDS: GABAPENTIN 300 MG CAP PO SCH (08:28)
[2022-07-24] MEDS: VENLAFAXINE HCL 75 MG TAB PO SCH (08:28)
[2022-07-24] MEDS: ATORVASTATIN 20 MG TAB PO SCH (08:28)
--- NOTE | 2022-07-24 11:00 | P.DS ---
Providers Date of admission: 07/12/22 16:00 Expected date of discharge: 07/24/22 Attending physician: Pelon Orr MD Consults: 07/12/22 16:02 Consult Physician Routine Consulting Provider: Luis E Robertson Consult Reason/Comments: medical management Do you want consulting provider notified?: Yes Primary care physician: Stated None - Discharge Diagnosis(es) (1) Major depressive disorder, recurrent, severe with psychotic features Status: Acute Priority: High (2) Alcohol use disorder Status: Chronic Priority: Medium (3) Nicotine addiction Status: Chronic Priority: Low (4) Cocaine use disorder Status: Resolved Priority: Low Hospital Course: Admission HPI: Initial psychiatric evaluation was completed by Dr. Cohen on 07/13/2022 who wrote: Psychiatric evaluation This is a psychiatric evaluation on Lele Scott who is a 61-year-old - Wallisian male in no comes to the ER with severe depression and anxiety feelings of helplessness and hopelessness suicidal ideations and plan Patient also reports that he has been drinking about 12 pack every day He says that he is also using cocaine until about 6 months ago He says that he wants to go to the rehab He says that he also has not been on his medications for a long period of time and used to be on Seroquel 300 mg at bedtime and Effexor XR 75 mg at bedtime Patient reports that he currently lives with his girlfriend Patient otherwise was not very forthcoming Past history personal social history: Patient remains very guarded and superficial and initially refused to answer any questions Patient however agreed to briefly talk to this physician as he wanted to have his medications reinstated Hospital course: Upon admission to the unit patient was initially presenting as "glum looking and downcast." Patient was however directable and agreeable to commence treatment. Patient got along well with other patients on the unit and followed unit protocol. Patient was compliant with the medications and denied any side effects throughout hospital course. Patient was started on Seroquel and Effexor and was also placed on [facility] protocol for alcohol withdrawal. Patient spoke of his stressors and engaged in therapy both group and individual. Patient was also seen by medical team for history and physical exam. Request the hospitalization, the patient's medications Seroquel and Effexor gradually titrated. He displayed an improvement in regards to his mood and target symptoms of mood congruent psychotic features. The patient became more future and goal oriented and desired [facility]. He tolerated his medications well. He attended groups with high-level participation. On the day of discharge, the patient is not reporting any suicidal or homicidal ideation, intention, and/or plan. He is not reporting any auditory or visual hallucinations. He reports no paranoia or other delusions. He has been adherent with his medication is not reporting any significant side effects. The patient reports no medical issues or concerns and he denies any chest pain, shortness of breath, palpitations, tardive dyskinesia, or akathisia. The patient was also tapered off his opiate medication in preparation for rehab. He also reported nomaccess to firearms or other weapons. The patient was counseled on his medications and need for regular compliance and was encouraged to follow- up with his outpatient appointments for mental health and primary care. He was counseled at length on abstaining from all substances including alcohol, tobacco, marijuana, and all illicit drugs. He is scheduled to [facility]. Prior to discharge a family meeting will be arranged by forensic social worker to answer any questions and ensure safety upon discharge. Mental status exam: General Appearance: Patient appears to be stated age is alert, pleasant, and cooperative. Patient is in no acute distress and has fair hygiene and grooming Behavior: Patient is calmly seated without any agitated behavior. Speech: Patient's speech is fluent and nonpressured. Mood/Affect: Patient reports their mood is "much better", affect is congruent and euthymic with appropiate range. Suicidality/Homicidality: Patient denies having any suicidal or homicidal ideation intent or plan. Perceptions: Patient denies any auditory or visual hallucinations. Though content/process: There is no evidence of any delusional thought content and thought process is linear and goal-directed. He is more future oriented Memory and concentration: AOX3, grossly intact for the purposes of this session. Can spell "WORLD" backwards correctly. Judgment and insight: Improved with guarded prognosis Impression: Major depressive disorder, recurrent, severe, with psychotic features Alcohol use disorder Cocaine use disorder, in early remission Nicotine dependence Plan: -Continue with discharge today as patient has improved and stabilized psychiatrically and is not currently an imminent threat to himself and/or others. Patient will remain at chronically elevated risk for harm to self and/or others due to his impulsivity and polysubstance abuse. -Continue medications: Continue gabapentin 300 mg by mouth 3 times a day Continue Seroquel 400 mg daily at bedtime for mood augmentation/psychosis Continue Effexor 150 mg by mouth daily for depression/anxiety -Patient was counseled on the need for medication compliance and appropriate follow-up at mental health and also primary care for medical issues. Patient verbalized understanding and agreed. -Social work to arrange for and conduct family meeting to ensure safety upon discharge and answer any questions/concerns. Social work also to arrange for patients follow up appointments for psychiatric care along with follow up with primary care provider. -Patient counseled on abstaining from recreational drugs and marijuana and alcohol. Was informed/educated on the adverse effects on their physical and mental health. Patient verbally agreed and understood. Patient is going to [facility]. -Patient was instructed to return to the hospital or seek immediate medical care if their psychiatric or medical symptoms do worsen or reoccur. -Psychoeducation and supportive therapy provided to patient. Risks and benefits of pharmacological treatment versus the risks and benefits of nontreatment weighed and discussed. Informed consent discussion held. Common side effects of psychotropics discussed such as, but not limited to headache, GI disturbance, sexual dysfunction, movement disorders, sedation, and orthostatic hypotension. Life threatening and blackbox warnings of prescribed medications also discussed. Potential risks of operating a vehicle or heavy machinery discussed with patient at length. Advised on importance of compliance and a reliable and responsible manner. Patient advised to review FDA consumer labeling of all medications prior to taking. Patient verbalized understanding of potential risks, and agrees with current treatment plan. Patient advised to medically contact physician/emergency personnel if any acute changes in condition occur. Vital Signs Temp 97.5 F L 07/24/22 06:27 Pulse 103 H 07/24/22 06:27 Resp 16 07/24/22 06:27 BP 100/70 07/24/22 06:27 Pulse Ox 99 07/22/22 06:29 FiO2 Intake & Output 07/23/22 07/24/22 07/24/22 18:59 06:59 18:59 Weight 67 kg Laboratory Results WBC 3.7 k/uL (3.8-10.6) L 07/14/22 08:54 RBC 4.09 m/uL (4.30-5.90) L 07/14/22 08:54 Hgb 13.1 gm/dL (13.0-17.5) 07/14/22 08:54 Hct 41.5 % (39.0-53.0) 07/14/22 08:54 MCV 101.5 fL (80.0-100.0) H 07/14/22 08:54 MCH 32.0 pg (25.0-35.0) 07/14/22 08:54 MCHC 31.5 g/dL (31.0-37.0) 07/14/22 08:54 RDW 13.7 % (11.5-15.5) 07/14/22 08:54 Plt Count 158 k/uL (150-450) 07/14/22 08:54 MPV 9.2 07/14/22 08:54 Neutrophils % 48 % 07/14/22 08:54 Lymphocytes % 41 % 07/14/22 08:54 Monocytes % 6 % 07/14/22 08:54 Eosinophils % 1 % 07/14/22 08:54 Basophils % 0 % 07/14/22 08:54 Neutrophils # 1.8 k/uL (1.3-7.7) 07/14/22 08:54 Lymphocytes # 1.5 k/uL (1.0-4.8) 07/14/22 08:54 Monocytes # 0.2 k/uL (0-1.0) 07/14/22 08:54 Eosinophils # 0.0 k/uL (0-0.7) 07/14/22 08:54 Basophils # 0.0 k/uL (0-0.2) 07/14/22 08:54 Macrocytosis Slight 07/14/22 08:54 Sodium 134 mmol/L (137-145) L 07/14/22 08:54 Potassium 4.2 mmol/L (3.5-5.1) 07/14/22 08:54 Chloride 95 mmol/L (98-107) L 07/14/22 08:54 Carbon Dioxide 30 mmol/L (22-30) 07/14/22 08:54 Anion Gap 9 mmol/L 07/14/22 08:54 BUN 10 mg/dL (9-20) 07/14/22 08:54 Creatinine 0.94 mg/dL (0.66-1.25) 07/14/22 08:54 Est GFR (CKD-EPI)AfAm >90 (>60 ml/min/1.73 sqM) 07/14/22 08:54 Est GFR (CKD-EPI)NonAf 87 (>60 ml/min/1.73 sqM) 07/14/22 08:54 Glucose 176 mg/dL (74-99) H 07/14/22 08:54 POC Glucose (mg/dL) 94 mg/dL (70-110) 07/16/22 22:35 POC Glu Treasury Director Reina Pollard 07/16/22 22:[address] Glu mg/dL 111 mg/dL 07/14/22 08:54 Hemoglobin A1c 5.5 % 07/14/22 08:54 Calcium 10.1 mg/dL (8.4-10.2) 07/14/22 08:54 Total Bilirubin 1.0 mg/dL (0.2-1.3) 07/14/22 08:54 AST 44 U/L (17-59) 07/14/22 08:54 ALT 29 U/L (4-49) 07/14/22 08:54 Alkaline Phosphatase 88 U/L (38-126) 07/14/22 08:54 Total Protein 7.8 g/dL (6.3-8.2) 07/14/22 08:54 Albumin 4.4 g/dL (3.5-5.0) 07/14/22 08:54 Triglycerides 68.60 mg/dL 07/14/22 08:54 Cholesterol 201.00 mg/dL H 07/14/22 08:54 LDL Cholesterol, Calc 40.3 mg/dL 07/14/22 08:54 VLDL Cholesterol, Calc 13.72 mg/dL 07/14/22 08:54 HDL Cholesterol 147.00 mg/dL H 07/14/22 08:54 Cholesterol/HDL Ratio 1.37 Ratio 07/14/22 08:54 Vitamin B12 344.0 pg/mL (200.0-944.0) 07/16/22 11:29 RBC Folate 661 ng/mL (280 - 791) 07/16/22 11:29 TSH 0.546 mIU/L (0.465-4.680) 07/14/22 08:54 Coronavirus (PCR) Not Detected (Not Detectd) 07/12/22 14:23 Allergies Allergy/AdvReac Type Severity Reaction Status Date / Time blueberry Allergy Rash/Hives Verified 07/12/22 15:22 nitroglycerin Allergy Swelling Verified 07/12/22 15:22 Patient Condition at Discharge: Stable Plan - Discharge Summary Discharge Rx Participant: No New Discharge Prescriptions: New Multivitamins, Thera [Multivitamin (formulary)] 1 each PO DAILY 30 Days #30 tab Gabapentin [Neurontin] 300 mg PO TID 30 Days #90 cap Venlafaxine HCl [Effexor] 150 mg PO DAILY 30 Days #60 tab QUEtiapine [SEROquel] 400 mg PO HS 30 Days #30 tab Continue Atorvastatin [Lipitor] 20 mg PO DAILY 30 Days #30 tab Aspirin EC [Ecotrin Low Dose] 81 mg PO DAILY 30 Days #30 tab Clopidogrel [Plavix] 75 mg PO DAILY 30 Days #30 tablet Discontinued HYDROcodone/APAP 10-325MG [Gays 10-325] 1 tab PO Q6HR Naloxone HCl [Narcan] 4 mg NASAL DIRECTED PRN PRN Reason: overdose Discharge Medication List Aspirin EC [Ecotrin Low Dose] 81 mg PO DAILY 30 Days #30 tab 07/24/22 [Rx] Atorvastatin [Lipitor] 20 mg PO DAILY 30 Days #30 tab 07/24/22 [Rx] Clopidogrel [Plavix] 75 mg PO DAILY 30 Days #30 tablet 07/24/22 [Rx] Gabapentin [Neurontin] 300 mg PO TID 30 Days #90 cap 07/24/22 [Rx] Multivitamins, Thera [Multivitamin (formulary)] 1 each PO DAILY 30 Days #30 tab 07/24/22 [Rx] QUEtiapine [SEROquel] 400 mg PO HS 30 Days #30 tab 07/24/22 [Rx] Venlafaxine HCl [Effexor] 150 mg PO DAILY 30 Days #60 tab 07/24/22 [Rx] Follow up Appointment(s)/Referral(s): Fausto Sheikh [Other] - 07/24/22 11:00 am [facility] [NON-STAFF] - 1 Week Patient Instructions/Handouts: Cocaine Abuse (DC), Depression (DC), At-Risk Alcohol Use (DC) Activity/Diet/Wound Care/Special Instructions: Avoid the use of street drugs and alcohol. Take all medications as prescribed. When you are in need of refills on your medications, please contact your medical provider and/or outpatient psychiatrist to have this done. Please go to scheduled outpatient appointments for aftercare treatment. If symptoms return or become worse, call the crisis line at and/or go to the nearest emergency room for evaluation. Discharge/Stand Alone Forms: AA Meetings [place] Discharge Disposition: HOME SELF-CARE
== END 2022-07-24 10:07 | disposition home or self-care (01) | DRG 885 ==
LOC: EC 09:56 → 3MHU 16:00
PROVIDERS: ADMIT Psychiatry & Neurology Psychiatry; ATTEND Psychiatry & Neurology Psychiatry
PROC: HZ2ZZZZ Detoxification Services for Substance Abuse Treatment (ICD-10-PCS; principal; 2022-07-13)
DX: F33.3 Major depressive disorder, recurrent, severe with psychotic symptoms (principal); R45.851 Suicidal ideations; E87.1 Hypo-osmolality and hyponatremia; F10.239 Alcohol dependence with withdrawal, unspecified; R45.850 Homicidal ideations; F14.11 Cocaine abuse, in remission; D75.89 Other specified diseases of blood and blood-forming organs; D72.819 Decreased white blood cell count, unspecified; F17.210 Nicotine dependence, cigarettes, uncomplicated; I25.10 Atherosclerotic heart disease of native coronary artery without angina pectoris; E78.5 Hyperlipidemia, unspecified; F43.23 Adjustment disorder with mixed anxiety and depressed mood; Z20.822 Contact with and (suspected) exposure to COVID-19; I25.2 Old myocardial infarction; Z95.5 Presence of coronary angioplasty implant and graft; Z79.899 Other long term (current) drug therapy; Z82.49 Family history of ischemic heart disease and other diseases of the circulatory system; Z88.8 Allergy status to other drugs, medicaments and biological substances; Z91.018 Allergy to other foods; Z79.02 Long term (current) use of antithrombotics/antiplatelets; Z79.82 Long term (current) use of aspirin
CPT/HCPCS: 71046; 80053; 80061; 82075; 82607; 82747; 83036; 84443; 85025; 87635; 99285

== ENCOUNTER 2022-12-16 17:57 | Observation (INO) | payer MEDICARE, OTHER ==
[2022-12-16 18:24] LABS: Basophils % (A) 1 %; Eosinophils % (A) 1 %; HCT 40.3 % (39.0-53.0); HGB 13.4 gm/dL (13.0-17.5); Lymphocytes # (A) 1.5 k/uL (1.0-4.8); Lymphocytes % (A) 38 %; MCH 32.4 pg (25.0-35.0); MCHC 33.2 g/dL (31.0-37.0); MCV 97.7 fL (80.0-100.0); Mean Platelet Volume 8.7; Monocytes # (A) 0.2 k/uL (0-1.0); Monocytes % (A) 4 %; Neutrophils # (A) 2.1 k/uL (1.3-7.7); Neutrophils % (A) 54 %; Platelet Count 203 k/uL (150-450); RBC 4.13 m/uL (4.30-5.90); RDW 13.6 % (11.5-15.5)
[2022-12-16 18:34] LABS: INR 0.9 (<1.2); Partial Thromboplastin Time 24.3 sec (22.0-30.0); Prothrombin Time 10.5 sec (10.0-12.5)
[2022-12-16 18:38] LABS: ALT 18 U/L (4-49); AST 23 U/L (17-59); African American GFR (CKD) >90 (>60 ml/min/1.73 sqM); Albumin 4.3 g/dL (3.5-5.0); Alkaline Phosphatase 45 U/L (38-126); Anion Gap 9 mmol/L; Blood Urea Nitrogen 11 mg/dL (9-20); Calcium 9.6 mg/dL (8.4-10.2); Carbon Dioxide 28 mmol/L (22-30); Chloride 106 mmol/L (98-107); Glucose 108 mg/dL (74-99); Magnesium 2.1 mg/dL (1.6-2.3); Non-African American GFR(CKD) >90 (>60 ml/min/1.73 sqM); Potassium 4.2 mmol/L (3.5-5.1); Sodium 143 mmol/L (137-145); Total Bilirubin 0.5 mg/dL (0.2-1.3); Total Protein 7.4 g/dL (6.3-8.2)
--- NOTE | 2022-12-16 19:17 | XR ---
EXAMINATION TYPE: XR chest 2V DATE OF EXAM: 12/16/2022 7:13 PM CLINICAL INDICATION:Male, 62 years old with history of Chest Pain; COMPARISON: Chest radiographs from 07/11/2022 TECHNIQUE: XR chest 2V Frontal and lateral views of the chest. FINDINGS: Lungs/Pleura: There is no evidence of pleural effusion, focal consolidation, or pneumothorax. Pulmonary vascularity: Unremarkable. Heart/mediastinum: Cardiomediastinal silhouette is unremarkable. Musculoskeletal: No acute osseous pathology. IMPRESSION: No acute cardiopulmonary disease/process.
--- NOTE | 2022-12-16 19:18 | ED ---
Chest Pain HPI - General Chief Complaint: Chest Pain Stated Complaint: chest pain Time Seen by Provider: 12/16/22 19:17 Source: patient, RN notes reviewed Mode of arrival: ambulatory Limitations: no limitations - History of Present Illness Initial Comments: 62-year-old male presents emergency Department chief complaint of chest pain, shortness breath, dizziness, syncope. Patient states he's had symptoms last 3 days. Patient states he has 3 prior cardiac stents. Patient states he does not feel well states he has chest pressure and The right side of his neck. - Related Data Previous Rx's Medication Instructions Recorded Aspirin EC [Ecotrin Low Dose] 81 mg PO DAILY 30 Days #30 tab 07/24/22 Atorvastatin [Lipitor] 20 mg PO DAILY 30 Days #30 tab 07/24/22 Clopidogrel [Plavix] 75 mg PO DAILY 30 Days #30 tablet 07/24/22 Gabapentin [Neurontin] 300 mg PO TID 30 Days #90 cap 07/24/22 Multivitamins, Thera [Multivitamin 1 each PO DAILY 30 Days #30 tab 07/24/22 (formulary)] QUEtiapine [SEROquel] 400 mg PO HS 30 Days #30 tab 07/24/22 Venlafaxine HCl [Effexor] 150 mg PO DAILY 30 Days #60 tab 07/24/22 Allergies Allergy/AdvReac Type Severity Reaction Status Date / Time blueberry Allergy Rash/Hives Verified 07/12/22 15:22 nitroglycerin Allergy Swelling Verified 07/12/22 15:22 Review of Systems ROS Statement: Those systems with pertinent positive or pertinent negative responses have been documented in the HPI. ROS Other: All systems not noted in ROS Statement are negative. EKG Findings - EKG Comments: EKG Findings:: EKG performed at 18:14 sinus rhythm with a rate of 84 CT 112 QRS 89 QT/QTC 380/421 - EKG Results: EKG: interpreted by DAVE Past Medical History Past Medical History: Coronary Artery Disease (CAD), Chest Pain / Angina, Hyperlipidemia, Myocardial Infarction ([place]), Osteoarthritis (OA) Additional Past Medical History / Comment(s): arthritis in back and bilateral knees,hx hiatal hernia Last Myocardial Infarction Date:: 2004 History of Any Multi-Drug Resistant Organisms: None Reported Past Surgical History: Bowel Resection, Heart Catheterization With Stent Additional Past Surgical History / Comment(s): Cardiac stents x 3, bowel surgery for pinpoint hole in bowel, L knee arthroscopy, colonoscopy/benign polypectomies,hiatal hernia repair Past Anesthesia/Blood Transfusion Reactions: No Reported Reaction Date of Last Stent Placement:: 2013 Past Psychological History: Bipolar, Depression, PTSD, Schizophrenia Smoking Status: Current every day smoker Past Alcohol Use History: Occasional Past Drug Use History: Cocaine, IV Drug Use, Marijuana, Opiates, Prescription Drug Abuse - Past Family History Father Family Medical History: Respiratory Disorder Additional Family Medical History / Comment(s): Father at age 64 from Black lung disease Mother Family Medical History: Hypertension, Myocardial Infarction ([place]) Additional Family Medical History / Comment(s): Mother of an [place] at 78yrs old. Brother(s) Family Medical History: Myocardial Infarction ([place]) Additional Family Medical History / Comment(s): Patient has 10 brothers and 2 from myocardial infarction and had history of alcoholism. Sister(s) Family Medical History: Hypertension, Myocardial Infarction ([place]) Additional Family Medical History / Comment(s): He has 7 sisters that are alive with no major medical problems. He has one son that has and one daughter that is alive and okay. General Exam - General Exam Comments Initial Comments: Visual Physical Exam Vital signs reviewed General: Well-appearing, nontoxic, no acute distress. Head: Normocephalic, atraumatic Eyes: PERRLA, EOMI ENT: Airway patent Chest: Nonlabored breathing Skin: No visual rash, normal skin tone Neuro: Alert and oriented 3 Musculoskeletal: No gross abnormalities Limitations: no limitations General appearance: alert, in no apparent distress Head exam: Present: atraumatic, normocephalic, normal inspection Eye exam: Present: normal appearance, PERRL, EOMI. Absent: scleral icterus, conjunctival injection, periorbital swelling ENT exam: Present: normal exam, normal oropharynx, mucous membranes moist Neck exam: Present: normal inspection, full ROM. Absent: tenderness, meningismus, lymphadenopathy Respiratory exam: Present: normal lung sounds bilaterally. Absent: respiratory distress, wheezes, rales, rhonchi, stridor Cardiovascular Exam: Present: regular rate, normal rhythm, normal heart sounds. Absent: systolic murmur, diastolic murmur, rubs, gallop, clicks GI/Abdominal exam: Present: soft, normal bowel sounds. Absent: distended, tenderness, guarding, rebound, rigid Course Vital Signs 12/16/22 18:07 Temperature 98.4 F Pulse Rate 90 Respiratory 16 Rate Blood Pressure 122/86 O2 Sat by Pulse 98 Oximetry Chest Pain MDM - MDM I completed the quick note portion of this chart signed Harrison Mendosa PA-C Was pt. sent in by a medical professional or institution (, [facility], [facility], urgent care, hospital, or fdc...) When possible be specific @ -No Did you speak to anyone other than the patient for history (EMS, parent, family, police, friend...)? What history was obtained from this source @ -No Did you review nursing and triage notes (agree or disagree)? Why? @ -I reviewed and agree with nursing and triage notes Were old charts reviewed (outside hosp., previous admission, EMS record, old EKG, old radiological studies, urgent care reports/EKG's, fdc records)? Report findings @ -No old charts were reviewed Differential Diagnosis (chest pain, altered mental status, abdominal pain women, abdominal pain men, vaginal bleeding, weakness, fever, dyspnea, syncope, headache, dizziness, GI bleed, back pain, seizure, CVA, palpatations, mental health, musculoskeletal)? @ -[Differential Chest Pain: Stable Angina, Unstable Angina, STEMI, NSTEMI Aortic Dissection, Pneumothorax, Musculoskeletal, Esophageal Spasm GERD, Cholecystitis, Pancreatitis, Zoster, this is not meant to be an all-inclusive list. EKG interpreted by me (3pts min.). @ -As above X-rays interpreted by me (1pt min.). @ -Chest x-ray shows no acute cortical) CT interpreted by me (1pt min.). @ -None done U/S interpreted by me (1pt. min.). @ -None done What testing was considered but not performed or refused? (CT, X-rays, U/S, labs)? Why? @ -None What meds were considered but not given or refused? Why? @ -None Did you discuss the management of the patient with other professionals (professionals i.e. , [facility], [facility], lab, RT, psych nurse, social sciences research scientist, hydro generation supervisor, teacher, fisheries technical officer, piano case and bench assembler)? Give summary @ -Dr. Red for admission secondary cardiac risk factors, cardiac rule out Was smoking cessation discussed for >3mins.? @ -No Was critical care preformed (if so, how long)? @ -No Were there social determinants of health that impacted care today? How? (Homelessness, low income, unemployed, alcoholism, drug addiction, transportation, low edu. Level, literacy, decrease access to med. care, [facility], rehab)? @ -No Was there de-escalation of care discussed even if they declined (Discuss DNR or withdrawal of care, Hospice)? DNR status @ -No What co-morbidities impacted this encounter? (DM, HTN, Smoking, COPD, CAD, Cancer, CVA, ARF, Chemo, Hep., AIDS, mental health diagnosis, sleep apnea, morbid obesity)? @ -CAD, hypertension, hyperlipidemia Was patient admitted / discharged? Hospital course, mention meds given and route, prescriptions, significant lab abnormalities, going to OR and other pertinent info. @ -Admitted patient's initial troponin is negative patient has significant cardiac history with him in for cardiac rule out secondary to persistent chest pain with mild radiation patient refuses nitro patient was given aspirin. Undiagnosed new problem with uncertain prognosis? @ -No Drug Therapy requiring intensive monitoring for toxicity (Heparin, Nitro, Insulin, Cardizem)? @ -No Were any procedures done? @ -No Diagnosis/symptom? @ -Chest pain Acute, or Chronic, or Acute on Chronic? @ -[acute Uncomplicated (without systemic symptoms) or Complicated (systemic symptoms)? @ -[complicated Side effects of treatment? @ -No Exacerbation, Progression, or Severe Exacerbation? @ -No Poses a threat to life or bodily function? How? (Chest pain, [place], [place], pneumonia, PE, COPD, DKA, ARF, appy, cholecystitis, CVA, Diverticulitis, Homicidal, Suicidal, threat to staff... and all critical care pts) @ -[yes possible ACS Disposition Clinical Impression: Chest pain, CAD (coronary artery disease) Disposition: ADMITTED IP TO THIS [facility] Time of Disposition: 22:05
[2022-12-16] MEDS ORDERED: HYDROcodone/APAP 5-325MG 1 EACH TAB PO STA (22:03)
[2022-12-16] MEDS ORDERED: KETOROLAC 15 MG/ML 1 ML VIAL IVP STA (22:03)
[2022-12-16] MEDS ORDERED: ASPIRIN 81 MG PO STA (22:05)
[2022-12-17] MEDS ORDERED: MORPHINE SULFATE 2 MG/ML SYRINGE IVP STA (01:22)
[2022-12-17] MEDS ORDERED: ATORVASTATIN 80 MG TAB PO STA (02:53)
--- NOTE | 2022-12-17 02:54 | P.HPIM ---
History of Present Illness H&P Date: 12/17/22 Patient is a 62-year-old male with a PMH of CAD status post multiple stents, COPD, polysubstance abuse, psychiatric illnesses including schizophrenia, who presents to the emergency room with complaints of chest discomfort. Patient reports he has been experiencing intermittent substernal chest discomfort over the past 3 days which has worsened earlier today. Reports the pain is radiating up into his neck and into his right shoulder. Denied experiencing shortness of breath, nausea, vomiting, diaphoresis, or dizziness. Reports pain is ongoing, currently rated at a 7 out of 10 at the time of interview. Denied experiencing fever, chills, cough. In the emergency room, chest x-ray was unremarkable. EKG revealed sinus rhythm with short AR interval 84 bpm with left axis deviation and LVH criteria. Laboratory evaluation is remarkable for troponin less than 0.012. Of note, the patient was previously admitted to the hospital on 07/02 with similar complaints at which time cardiac catheterization had revealed mild in stent restenosis of the LAD with medical management recommended. ED documentation reviewed and case discussed with ED provider. Review of systems: Pertinent positives and negatives as discussed in HPI, a complete review of systems was performed and all other systems are negative. Physical examination: Vital signs reviewed General: non toxic, no distress, appears at stated age, normal weight Derm: no unusual rashes/lesions, warm Head: atraumatic, normocephalic, symmetric Eyes: EOMI, no lid lag, anicteric sclera, pupils equal round reactive to light ENT: Nose and ears atraumatic Neck: No cervical lymphadenopathy, trachea midline, supple Mouth: no lip lesion, mucus membranes moist Cardiovascular: S1S2 reg, no murmur, positive dorsalis pedis pulse bilateral, no edema Lungs: CTA bilateral, no rhonchi, no rales, no accessory muscle use Abdominal: soft, nontender to palpation, no guarding Ext: muscle strength 5 out of 5 in all 4 extremities grossly, no gross muscle atrophy, no contractures, Neuro: CN II-XI grossly intact, no gross focal neuro deficits Psych: Alert, oriented, appropriate affect Assessment: Chest pain, rule out ACS Chronic conditions: COPD, hyperlipidemia, psychiatric illnesses Imaging: In the emergency room, chest x-ray was unremarkable. EKG revealed sinus rhythm with short AR interval 84 bpm with left axis deviation and LVH criteria. Data Review: Laboratory evaluation is remarkable for troponin less than 0.012. Plan: Trend troponin Cardiac monitoring Cardiology consult Continue with aspirin, statin Continue home medications once reconciled DVT prophylaxis: Lovenox subcu The patient is admitted with an anticipated less than 2 midnight stay for evaluation of chest pain CODE STATUS: Full Code Discussed with: Patient Anticipated discharge place: Home Past Medical History Past Medical History: Coronary Artery Disease (CAD), Chest Pain / Angina, Hyper lipidemia, Myocardial Infarction (MT), Osteoarthritis (OA) Additional Past Medical History / Comment(s): arthritis in back and bilateral knees,hx hiatal hernia Last Myocardial Infarction Date:: 2004 History of Any Multi-Drug Resistant Organisms: None Reported Past Surgical History: Bowel Resection, Heart Catheterization With Stent Additional Past Surgical History / Comment(s): Cardiac stents x 3, bowel surgery for pinpoint hole in bowel, L knee arthroscopy, colonoscopy/benign polypectomies,hiatal hernia repair Past Anesthesia/Blood Transfusion Reactions: No Reported Reaction Date of Last Stent Placement:: 2013 Past Psychological History: Bipolar, Depression, PTSD, Schizophrenia Smoking Status: Current every day smoker Past Alcohol Use History: Occasional Past Drug Use History: Cocaine, IV Drug Use, Marijuana, Opiates, Prescription Drug Abuse - Past Family History Father Family Medical History: Respiratory Disorder Additional Family Medical History / Comment(s): Father at age 64 from Black lung disease Mother Family Medical History: Hypertension, Myocardial Infarction (MT) Additional Family Medical History / Comment(s): Mother of an MT at 78yrs old. Brother(s) Family Medical History: Myocardial Infarction (MT) Additional Family Medical History / Comment(s): Patient has 10 brothers and 2 from myocardial infarction and had history of alcoholism. Sister(s) Family Medical History: Hypertension, Myocardial Infarction (MT) Additional Family Medical History / Comment(s): He has 7 sisters that are alive with no major medical problems. He has one son that has and one daughter that is alive and okay. Medications and Allergies Home Medications Medication Instructions Recorded Confirmed Type Aspirin EC [Ecotrin Low Dose] 81 mg PO DAILY 30 Days #30 tab 07/24/22 Rx Atorvastatin [Lipitor] 20 mg PO DAILY 30 Days #30 tab 07/24/22 Rx Clopidogrel [Plavix] 75 mg PO DAILY 30 Days #30 tablet 07/24/22 Rx Gabapentin [Neurontin] 300 mg PO TID 30 Days #90 cap 07/24/22 Rx Multivitamins, Thera [Multivitamin 1 each PO DAILY 30 Days #30 tab 07/24/22 Rx (formulary)] QUEtiapine [SEROquel] 400 mg PO HS 30 Days #30 tab 07/24/22 Rx Venlafaxine HCl [Effexor] 150 mg PO DAILY 30 Days #60 tab 07/24/22 Rx Allergies Allergy/AdvReac Type Severity Reaction Status Date / Time blueberry Allergy Rash/Hives Verified 07/12/22 15:22 nitroglycerin Allergy Swelling Verified 07/12/22 15:22 Physical Exam Vitals: Vital Signs Temp Pulse Pulse Resp BP BP Pulse Ox 12/16/22 23:19 98.7 F 71 16 134/79 100 12/16/22 23:02 98 F 80 17 119/82 99 12/16/22 18:07 98.4 F 90 16 122/86 98 Intake and Output 12/16/22 12/16/22 12/17/22 14:59 22:59 06:59 Other: Weight 73.482 kg Results CBC & Chem 7: 12/16/22 18:10 12/16/22 18:10 Labs: Abnormal Lab Results - Last 24 Hours (Table) 12/16/22 12/16/22 Range/Units 18:10 18:10 RBC 4.13 L (4.30-5.90) m/uL Glucose 108 H (74-99) mg/dL
[2022-12-17] MEDS ORDERED: KETOROLAC 15 MG/ML 1 ML VIAL IVP STA (07:53)
[2022-12-17] MEDS: ENOXAPARIN 40 MG/0.4 ML SYRINGE SQ SCH (08:13)
[2022-12-17] MEDS: ASPIRIN 81 MG PO SCH (08:20)
--- NOTE | 2022-12-17 08:47 | P.CRDCN ---
History of Present Illness History of present illness: HISTORY OF PRESENT ILLNESS: This is a 62-year-old male with a past medical history significant for coronary artery disease with previous stenting, hyperlipidemia, COPD, nicotine dependence, depression, PTSD, and schizophrenia. 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 We have been asked to see the patient in consultation for chest pain. Patient examined at the bedside. Patient reports he has been having chest pain for the last 3 days. He states the pain is constant and never goes away. At the time examination he is rating his pain a 9/10. He does report IV narcotics did relieve his pain somewhat. He reports pain into his right arm and into his neck. He states this discomfort feels similar to his last stent. He does report that the pain is worse with deep inspiration. He is a current cigarette smoker and smokes 2 cigarettes a day. He also reports occasional of all use. Currently denies any drug use. * EKG reveals sinus mechanism with nonspecific ST-T wave changes. * Chest xray negative for acute process * Laboratory data: Troponin negative 3 * Most recent echocardiogram obtained in January 2022 revealed ejection frac tion 55-60%, mild TR * Cardiac catheterization history: June 2022 revealing mild in-stent restenosis o f LAD in the midportion and normal left sided filling pressures. Medical management was recommended. REVIEW OF SYSTEMS: At the time of my exam: CONSTITUTIONAL: Denies fever or chills. HEENT: Denies blurred vision, vision changes, or eye pain. Denies hemoptysis CARDIOVASCULAR: Denies chest pain. Denies orthopnea. Denies PND. Denies palpitations RESPIRATORY: Denies shortness of breath. GASTROINTESTINAL: Denies abdominal pain. Denies nausea or vomiting. HEMATOLOGIC: Denies bleeding disorders. GENITOURINARY: Denies any blood in urine. SKIN: Denies pruitis. Denies rash. PHYSICAL EXAM: VITAL SIGNS: Reviewed. GENERAL: Well-developed in no acute distress. HEENT: Head is normocephalic. Pupils are equal, round. Sclerae anicteric. Mucous membranes of the mouth are moist. Neck supple. No JVD or thyromegaly LUNGS: Respirations even and unlabored. Lungs essentially clear to auscultation bilaterally. HEART: Regular rate and rhythm. S1 and S2 heard. ABDOMEN: Soft. Nondistended. Nontender. EXTREMITIES: Normal range of motion. No clubbing or cyanosis. Peripheral pulses intact. No lower extremity edema NEUROLOGIC: Awake and alert. Oriented x 3. ASSESSMENT: Chest pain, troponins negative 3 Coronary artery disease with previous stenting of the LAD Hyperlipidemia COPD Nicotine dependence Depression PTSD Schizophrenia PLAN: An acute coronary event has been ruled out Obtain 2-D echo to assess cardiac structure and function Continue aspirin and atorvastatin If 2-D echo does not reveal any significant abnormalities, the patient may be discharged home today from a cardiac standpoint Patient to follow-up post discharge with Dr. Moody Nurse practitioner note has been reviewed by physician. Signing provider agrees with the documented findings, assessment, and plan of care. Past Medical History Past Medical History: Coronary Artery Disease (CAD), Chest Pain / Angina, Hyperlipidemia, Myocardial Infarction (CT), Osteoarthritis (OA) Additional Past Medical History / Comment(s): arthritis in back and bilateral knees,hx hiatal hernia Last Myocardial Infarction Date:: 2004 History of Any Multi-Drug Resistant Organisms: None Reported Past Surgical History: Bowel Resection, Heart Catheterization With Stent Additional Past Surgical History / Comment(s): Cardiac stents x 3, bowel surgery for pinpoint hole in bowel, L knee arthroscopy, colonoscopy/benign polypectomies,hiatal hernia repair Past Anesthesia/Blood Transfusion Reactions: No Reported Reaction Date of Last Stent Placement:: 2013 Past Psychological History: Bipolar, Depression, PTSD, Schizophrenia Smoking Status: Current every day smoker Past Alcohol Use History: Occasional Past Drug Use History: Cocaine, IV Drug Use, Marijuana, Opiates, Prescription Drug Abuse - Past Family History Father Family Medical History: Respiratory Disorder Additional Family Medical History / Comment(s): Father at age 64 from Black lung disease Mother Family Medical History: Hypertension, Myocardial Infarction (CT) Additional Family Medical History / Comment(s): Mother of an CT at 78yrs old. Brother(s) Family Medical History: Myocardial Infarction (CT) Additional Family Medical History / Comment(s): Patient has 10 brothers and 2 from myocardial infarction and had history of alcoholism. Sister(s) Family Medical History: Hypertension, Myocardial Infarction (CT) Additional Family Medical History / Comment(s): He has 7 sisters that are alive with no major medical problems. He has one son that has and one daughter that is alive and okay. Medications and Allergies Home Medications Medication Instructions Recorded Confirmed Type Aspirin EC [Ecotrin Low Dose] 81 mg PO DAILY 30 Days #30 tab 07/24/22 Rx Atorvastatin [Lipitor] 20 mg PO DAILY 30 Days #30 tab 07/24/22 Rx Clopidogrel [Plavix] 75 mg PO DAILY 30 Days #30 tablet 07/24/22 Rx Gabapentin [Neurontin] 300 mg PO TID 30 Days #90 cap 07/24/22 Rx Multivitamins, Thera [Multivitamin 1 each PO DAILY 30 Days #30 tab 07/24/22 Rx (formulary)] QUEtiapine [SEROquel] 400 mg PO HS 30 Days #30 tab 07/24/22 Rx Venlafaxine HCl [Effexor] 150 mg PO DAILY 30 Days #60 tab 07/24/22 Rx Allergies Allergy/AdvReac Type Severity Reaction Status Date / Time blueberry Allergy Rash/Hives Verified 07/12/22 15:22 nitroglycerin Allergy Swelling Verified 07/12/22 15:22 Physical Exam Vitals: Vital Signs Temp Pulse Pulse Resp BP BP BP 12/17/22 07:00 98.3 F 64 16 117/77 12/17/22 00:20 98.5 F 70 15 106/70 12/16/22 23:19 98.7 F 71 16 134/79 12/16/22 23:02 98 F 80 17 119/82 12/16/22 18:07 98.4 F 90 16 122/86 Pulse Ox 12/17/22 07:00 100 12/17/22 00:20 100 12/16/22 23:19 100 12/16/22 23:02 99 12/16/22 18:07 98 Intake and Output 12/16/22 12/17/22 12/17/22 22:59 06:59 14:59 Other: # Voids 2 Weight 73.482 kg Results 12/16/22 18:10 12/16/22 18:10 Cardiac Enzymes 12/16/22 12/16/22 12/17/22 Range/Units 18:10 18:10 01:49 AST 23 (17-59) U/L Troponin I <0.012 <0.012 (0.000-0.034) ng/mL 12/17/22 Range/Units 03:32 AST (17-59) U/L Troponin I <0.012 (0.000-0.034) ng/mL Coagulation 12/16/22 Range/Units 18:10 PT 10.5 (10.0-12.5) sec APTT 24.3 (22.0-30.0) sec CBC 12/16/22 Range/Units 18:10 WBC 4.0 (3.8-10.6) k/uL RBC 4.13 L (4.30-5.90) m/uL Hgb 13.4 (13.0-17.5) gm/dL Hct 40.3 (39.0-53.0) % Plt Count 203 (150-450) k/uL Comprehensive Metabolic Panel 12/16/22 Range/Units 18:10 Sodium 143 (137-145) mmol/L Potassium 4.2 (3.5-5.1) mmol/L Chloride 106 (98-107) mmol/L Carbon Dioxide 28 (22-30) mmol/L BUN 11 (9-20) mg/dL Creatinine 0.88 (0.66-1.25) mg/dL Glucose 108 H (74-99) mg/dL Calcium 9.6 (8.4-10.2) mg/dL AST 23 (17-59) U/L ALT 18 (4-49) U/L Alkaline Phosphatase 45 (38-126) U/L Total Protein 7.4 (6.3-8.2) g/dL Albumin 4.3 (3.5-5.0) g/dL Current Medications Generic Name Dose Route Start Last Admin Trade Name Freq PRN Reason Stop Dose Admin Aspirin 325 mg 12/17/22 09:00 Aspirin 325 Mg Tab PO DAILY MORRIS Atorvastatin Calcium 80 mg 12/17/22 21:00 Atorvastatin 80 Mg Tab PO HS MORRIS Enoxaparin Sodium 40 mg 12/17/22 09:00 Enoxaparin 40 Mg/0.4 Ml Syringe SQ DAILY MORRIS Intake and Output 12/16/22 12/17/22 12/17/22 22:59 06:59 14:59 Other: # Voids 2 Weight 73.482 kg 12/16/22 18:10 12/16/22 18:10
[2022-12-17] MEDS ORDERED: ASPIRIN 325 MG TAB PO SCH (09:00)
[2022-12-17 09:19] LABS: LDL Cholesterol,Calculated 33.2 mg/dL (0.0-131.0)
--- NOTE | 2022-12-17 13:40 | P.DS ---
Providers Date of admission: 12/16/22 22:06 Expected date of discharge: 12/17/22 Attending physician: Jonathan Red MD Consults: 12/16/22 22:05 Consult Physician Urgent Consulting Provider: Primo Moody Consult Reason/Comments: chest pain Do you want consulting provider notified?: Yes Primary care physician: Physician Nonstaff Hospital Course: Patient is a 62-year-old male with a PMH of CAD status post multiple stents, COPD, polysubstance abuse, psychiatric illnesses including schizophrenia, who presents to the emergency room with complaints of chest discomfort. Patient rep orts he has been experiencing intermittent substernal chest discomfort over the past 3 days which has worsened earlier today. Reports the pain is radiating up into his neck and into his right shoulder. Denied experiencing shortness of breath, nausea, vomiting, diaphoresis, or dizziness. Reports pain is ongoing, currently rated at a 7 out of 10 at the time of interview. Denied experiencing fever, chills, cough. In the emergency room, chest x-ray was unremarkable. EKG revealed sinus rhythm with short DE interval 84 bpm with left axis deviation and LVH criteria. Laboratory evaluation is remarkable for troponin less than 0.012. Of note, the patient was previously admitted to the hospital on 07/02 with similar complaints at which time cardiac catheterization had revealed mild in stent restenosis of the LAD with medical management recommended. Troponins were trended and ACS was ruled out. Second EKG was done which did not show any ischemic changes. Cardiology was consulted and recommended Echo. Cleared for discharge as long as Echo is normal. 12/17 Patient seen and examined in the morning. Continues to complain of left sided pressure like chest pain radiating to the right shoulder. Pertinent studies CXR EKG Echo General: non toxic, no distress, appears at stated age, normal weight Derm: no unusual rashes/lesions, warm Head: atraumatic, normocephalic, symmetric Eyes: EOMI, no lid lag, anicteric sclera ENT: Nose and ears atraumatic Neck: No cervical lymphadenopathy, trachea midline, supple Cardiovascular: S1S2 reg, no murmur, no edema Lungs: CTA bilateral, no rhonchi, no rales, no accessory muscle use Ext: muscle strength 5 out of 5 in all 4 extremities grossly, no gross muscle atrophy, no contractures, Neuro: no gross focal neuro deficits Psych: Alert, oriented, appropriate affect Discharge Diagnosis: Chest pain, rule out ACS Chronic conditions: COPD, hyperlipidemia, psychiatric illnesses Patient for possible discharge today if Echo can be completed and normal. This complex discharge took 35 minutes to complete. Patient Condition at Discharge: Stable Plan - Discharge Summary New Discharge Prescriptions: No Action hydrOXYzine pamoate [Vistaril] 25 mg PO DAILY carvediloL [Coreg] 3.125 mg PO BID Venlafaxine HCl ER [Effexor Xr] 112.5 mg PO DAILY Atorvastatin [Lipitor] 10 mg PO DAILY Cetirizine HCl [Zyrtec] 10 mg PO DAILY QUEtiapine [SEROquel] 400 mg PO HS 30 Days #30 tab Clopidogrel [Plavix] 75 mg PO DAILY 30 Days #30 tablet QUEtiapine [SEROquel] 200 mg PO DAILY Ibuprofen [Motrin] 800 mg PO Q8H PRN PRN Reason: Pain/Headaches HYDROcodone/APAP 10-325MG [Embarrass 10-325] 1 tab PO QID Discharge Medication List Clopidogrel [Plavix] 75 mg PO DAILY 30 Days #30 tablet 07/24/22 [Rx] QUEtiapine [SEROquel] 400 mg PO HS 30 Days #30 tab 07/24/22 [Rx] Atorvastatin [Lipitor] 10 mg PO DAILY 12/17/22 [History] Cetirizine HCl [Zyrtec] 10 mg PO DAILY 12/17/22 [History] HYDROcodone/APAP 10-325MG [Embarrass 10-325] 1 tab PO QID 12/17/22 [History] Ibuprofen [Motrin] 800 mg PO Q8H PRN 12/17/22 [History] QUEtiapine [SEROquel] 200 mg PO DAILY 12/17/22 [History] Venlafaxine HCl ER [Effexor Xr] 112.5 mg PO DAILY 12/17/22 [History] carvediloL [Coreg] 3.125 mg PO BID 12/17/22 [History] hydrOXYzine pamoate [Vistaril] 25 mg PO DAILY 12/17/22 [History] Follow up Appointment(s)/Referral(s): None,Stated [REFERRING] - 1-2 days
--- NOTE | 2022-12-17 18:24 | CA ---
Transthoracic Echo Report Name: Lele Scott Age: 62 Gender: M : 1960 Exam Date: 12/17/2022 15:15 Exam Location: [facility] Ht (in): 69 Wt (lb): 162 Ordering Physician: Sarah Hernandez Attending/Referring Phys: [id number], Mary Petrophysical Engineer Dominik Reddy Procedure CPT: Indications: LV function, CP Cardiac Hx: Technical Quality: Fair Contrast 1: Total Dose (mL): Contrast 2: Total Dose (mL): MEASUREMENTS (Male / Female) Normal Values 2D ECHO LV Diastolic Diameter PLAX 4.8 cm 4.2 - 5.9 / 3.9 - 5.3 cm LV Systolic Diameter PLAX 3.1 cm IVS Diastolic Thickness 0.9 cm 0.6 - 1.0 / 0.6 - 0.9 cm LVPW Diastolic Thickness 1.1 cm 0.6 - 1.0 / 0.6 - 0.9 cm LV Relative Wall Thickness 0.4 RV Internal Dim ED PLAX 3.2 cm LVOT Diameter 2.3 cm Aortic Root Diameter 3.4 cm LA Systolic Diameter LX 1.9 cm 3.0 - 4.0 / 2.7 - 3.8 cm LV Diastolic Volume MOD BP 71.3 cm??? 67 - 155 / 56 - 104 cm??? LV Systolic Volume MOD BP 33.0 cm??? 22 - 58 / 19 - 49 cm??? LV Ejection Fraction MOD BP 53.7 % >= 55 % LV Cardiac Index MOD BP 1069.2 cm???/min???m??? LV Diastolic Volume MOD 4C 85.4 cm??? LV Systolic Volume MOD 4C 30.4 cm??? LV Ejection Fraction MOD 4C 64.4 % LV Cardiac Index MOD 4C 1536.4 cm???/min???m??? LV Diastolic Length 4C 7.5 cm LV Systolic Length 4C 5.9 cm LV Diastolic Volume MOD 2C 58.5 cm??? LV Systolic Volume MOD 2C 35.2 cm??? LV Ejection Fraction MOD 2C 39.9 % LV Cardiac Index MOD 2C 651.3 cm???/min???m??? LV Diastolic Length 2C 7.3 cm LV Systolic Length 2C 6.0 cm LA Volume 64.7 cm??? 18 - 58 / 22 - 52 cm??? LA Volume Index 34.1 cm???/m??? 16 - 28 cm???/m??? Ascending Aorta Diameter 3.3 cm DOPPLER AV Peak Velocity 135.5 cm/s AV Peak Gradient 7.3 mmHg LVOT Peak Velocity 84.9 cm/s LVOT Peak Gradient 2.9 mmHg LVOT Velocity Time Integral 18.7 cm LVOT Stroke Volume 74.6 cm??? LVOT Stroke Volume Index 39.5 ml/m??? LVOT Cardiac Index 2085.0 cm???/min???m??? AV Area Cont Eq pk 2.5 cm??? MV Peak Velocity 76.7 cm/s MV Peak Gradient 2.4 mmHg MV Mean Velocity 35.6 cm/s MV Mean Gradient 0.6 mmHg MV Velocity Time Integral 29.2 cm MR Peak Velocity 223.1 cm/s MR Peak Gradient 19.9 mmHg Mitral E Point Velocity 47.5 cm/s Mitral A Point Velocity 52.6 cm/s Mitral E to A Ratio 0.9 MV Deceleration Time 249.0 ms MV E' Velocity 6.5 cm/s Mitral E to MV E' Ratio 7.3 TR Peak Velocity 211.2 cm/s TR Peak Gradient 17.8 mmHg Right Ventricular Systolic Press 22.8 mmHg PV Peak Velocity 87.5 cm/s PV Peak Gradient 3.1 mmHg FINDINGS Left Ventricle Normal LV size and wall thickness. Left ventricular ejection fraction is estimated at 55-60 %.normal left ventricular wall motion. Normal left ventricular diastolic filling pattern. Right Ventricle Normal right ventricular size. Right Atrium Normal right atrial size. Left Atrium Normal left atrial size. Highly mobile interatrial septum Mitral Valve Structurally normal mitral valve. Mild MR. Aortic Valve Trileaflet aortic valve. No aortic valve stenosis or regurgitation. Tricuspid Valve Structurally normal tricuspid valve. Mild TR Pulmonic Valve Pulmonic valve not well visualized. No pulmonic regurgitation. Pericardium Normal pericardium. Aorta Normal size aortic root and proximal ascending aorta. CONCLUSIONS 1. Normal left ventricle size and systolic function 2. Mild mitral and tricuspid regurgitation Previewed by: Dr. Deanne Starr MD (Electronically Signed) Final Date: 17 December 2022 18:23
[2022-12-17] MEDS ORDERED: ATORVASTATIN 40 MG TAB PO SCH (21:00)
[2022-12-17] MEDS ORDERED: ATORVASTATIN 80 MG TAB PO SCH (21:00)
[2022-12-18] MEDS: ENOXAPARIN 40 MG/0.4 ML SYRINGE SQ SCH (09:27)
[2022-12-18] MEDS: ASPIRIN 81 MG PO SCH (09:27)
--- NOTE | 2022-12-18 10:00 | P.PN ---
Subjective HISTORY OF PRESENT ILLNESS: This is a 62-year-old male with a past medical history significant for coronary artery disease with previous stenting, hyperlipidemia, COPD, nicotine dependence, depression, PTSD, and schizophrenia. 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 We have been asked to see the patient in consultation for chest pain. Patient examined at the bedside. Patient reports he has been having chest pain for the last 3 days. He states the pain is constant and never goes away. At the time examination he is rating his pain a 9/10. He does report IV narcotics did relieve his pain somewhat. He reports pain into his right arm and into his neck. He states this discomfort feels ross lar to his last stent. He does report that the pain is worse with deep inspiration. He is a current cigarette smoker and smokes 2 cigarettes a day. He also reports occasional of all use. Currently denies any drug use. * EKG reveals sinus mechanism with nonspecific ST-T wave changes. * Chest xray negative for acute process * Laboratory data: Troponin negative 3 * Most recent echocardiogram obtained in January 2022 revealed ejection fraction 55-60%, mild TR * Cardiac catheterization history: June 2022 revealing mild in-stent restenosis of LAD in the midportion and normal left sided filling pressures. Medical management was recommended. 12/18/2022 Patient examined this morning at the bedside. Patient denies any shortness of breath this morning. He states his chest pain has improved and he is feeling well this morning. Echocardiogram completed revealing ejection fraction 55-60%, mild MR, mild TR. Vital signs are stable. PHYSICAL EXAM: VITAL SIGNS: Reviewed. GENERAL: Well-developed in no acute distress. HEENT: Head is normocephalic. Pupils are equal, round. Sclerae anicteric. Mucous membranes of the mouth are moist. Neck supple. No JVD or thyromegaly LUNGS: Respirations even and unlabored. Lungs essentially clear to auscultation bilaterally. HEART: Regular rate and rhythm. S1 and S2 heard. ABDOMEN: Soft. Nondistended. Nontender. EXTREMITIES: Normal range of motion. No clubbing or cyanosis. Peripheral pulses intact. No lower extremity edema NEUROLOGIC: Awake and alert. Oriented x 3. ASSESSMENT: Chest pain, troponins negative 3 Coronary artery disease with previous stenting of the LAD Hyperlipidemia COPD Nicotine dependence Depression PTSD Schizophrenia PLAN: Continue current cardiac medications Patient is stable for discharge home today from a cardiac standpoint Patient to follow-up post discharge with Dr. Moody Nurse practitioner note has been reviewed by physician. Signing provider agrees with the documented findings, assessment, and plan of care. Objective - Vital Signs Vital signs: Vital Signs Temp 97.6 F 12/18/22 07:00 Pulse 76 12/18/22 07:00 Resp 17 12/18/22 07:00 BP 112/78 12/18/22 07:00 Pulse Ox 97 12/18/22 07:00 FiO2 Intake & Output 12/17/22 12/18/22 12/18/22 18:59 06:59 18:59 Intake Total 180 Balance 180 Intake: Oral 180 Other: # Voids 3 1 - Labs CBC & Chem 7: 12/16/22 18:10 12/16/22 18:10
--- NOTE | 2022-12-18 11:08 | P.DS ---
Providers Date of admission: 12/16/22 22:06 Expected date of discharge: 12/18/22 Attending physician: Jonathan Red MD Consults: 12/16/22 22:05 Consult Physician Urgent Consulting Provider: Primo Moody Consult Reason/Comments: chest pain Do you want consulting provider notified?: Yes Primary care physician: Physician Nonstaff Hospital Course: Patient is a 62-year-old male with a PMH of CAD status post multiple stents, COPD, polysubstance abuse, psychiatric illnesses including schizophrenia, who presents to the emergency room with complaints of chest discomfort. Patient rep orts he has been experiencing intermittent substernal chest discomfort over the past 3 days which has worsened earlier today. Reports the pain is radiating up into his neck and into his right shoulder. Denied experiencing shortness of breath, nausea, vomiting, diaphoresis, or dizziness. Reports pain is ongoing, currently rated at a 7 out of 10 at the time of interview. Denied experiencing fever, chills, cough. In the emergency room, chest x-ray was unremarkable. EKG revealed sinus rhythm with short ME interval 84 bpm with left axis deviation and LVH criteria. Laboratory evaluation is remarkable for troponin less than 0.012. Of note, the patient was previously admitted to the hospital on 07/02 with similar complaints at which time cardiac catheterization had revealed mild in stent restenosis of the LAD with medical management recommended. Troponins were trended and ACS was ruled out. Second EKG was done which did not show any ischemic changes. Cardiology was consulted and recommended Echo. Cleared for discharge as long as Echo is normal. 12/17 Patient seen and examined in the morning. Continues to complain of left sided pressure like chest pain radiating to the right shoulder. 12/18 Patient was seen and examined. Reports improvement in his chest pain. Echo showed EF 55-60%, mild MR/TR. Cardiology cleared the patient for discharge. Advised follow up with Cardiology within a week of discharge. Pertinent studies CXR EKG Echo General: non toxic, no distress, appears at stated age, normal weight Derm: no unusual rashes/lesions, warm Head: atraumatic, normocephalic, symmetric Eyes: EOMI, no lid lag, anicteric sclera ENT: Nose and ears atraumatic Neck: No cervical lymphadenopathy, trachea midline, supple Cardiovascular: S1S2 reg, no murmur, no edema Lungs: CTA bilateral, no rhonchi, no rales, no accessory muscle use Ext: muscle strength 5 out of 5 in all 4 extremities grossly, no gross muscle atrophy, no contractures, Neuro: no gross focal neuro deficits Psych: Alert, oriented, appropriate affect Discharge Diagnosis: Chest pain, rule out ACS Chronic conditions: COPD, hyperlipidemia, psychiatric illnesses This complex discharge took 35 minutes to complete. Patient Condition at Discharge: Stable Plan - Discharge Summary New Discharge Prescriptions: New Aspirin 81 mg PO DAILY #30 tab Atorvastatin [Lipitor] 40 mg PO HS #30 tab Continue hydrOXYzine pamoate [Vistaril] 25 mg PO DAILY carvediloL [Coreg] 3.125 mg PO BID Venlafaxine HCl ER [Effexor XR] 112.5 mg PO DAILY Cetirizine HCl [Zyrtec] 10 mg PO DAILY QUEtiapine [SEROquel] 400 mg PO HS 30 Days #30 tab Clopidogrel [Plavix] 75 mg PO DAILY 30 Days #30 tablet QUEtiapine [SEROquel] 200 mg PO DAILY Ibuprofen [Motrin] 800 mg PO Q8H PRN PRN Reason: Pain/Headaches HYDROcodone/APAP 10-325MG [[place] 10-325] 1 tab PO QID Discontinued Atorvastatin [Lipitor] 10 mg PO DAILY Discharge Medication List Clopidogrel [Plavix] 75 mg PO DAILY 30 Days #30 tablet 07/24/22 [Rx] QUEtiapine [SEROquel] 400 mg PO HS 30 Days #30 tab 07/24/22 [Rx] Cetirizine HCl [Zyrtec] 10 mg PO DAILY 12/17/22 [History] HYDROcodone/APAP 10-325MG [[place] 10-325] 1 tab PO QID 12/17/22 [History] Ibuprofen [Motrin] 800 mg PO Q8H PRN 12/17/22 [History] QUEtiapine [SEROquel] 200 mg PO DAILY 12/17/22 [History] Venlafaxine HCl ER [Effexor XR] 112.5 mg PO DAILY 12/17/22 [History] carvediloL [Coreg] 3.125 mg PO BID 12/17/22 [History] hydrOXYzine pamoate [Vistaril] 25 mg PO DAILY 12/17/22 [History] Aspirin 81 mg PO DAILY #30 tab 12/18/22 [Rx] Atorvastatin [Lipitor] 40 mg PO HS #30 tab 12/18/22 [Rx] Follow up Appointment(s)/Referral(s): Deanne Starr MD [STAFF PHYSICIAN] - 1 Week (Office will call you) None,Stated [REFERRING] - 1-2 days Patient Instructions/Handouts: Chest Pain (DC) Discharge Disposition: HOME SELF-CARE
[2022-12-18 14:51] VITALS: BP 126/81; PULSE 66; RESP 16; TEMP 98.7
== END 2022-12-18 14:46 | disposition home or self-care (01) ==
LOC: EC 17:57 → 6NMEDSUR 22:06
PROVIDERS: ADMIT Internal Medicine; ATTEND Internal Medicine
DX: R07.89 Other chest pain (principal); I25.10 Atherosclerotic heart disease of native coronary artery without angina pectoris; T82.855A Stenosis of coronary artery stent, initial encounter; J44.9 Chronic obstructive pulmonary disease, unspecified; I25.2 Old myocardial infarction; E78.5 Hyperlipidemia, unspecified; M17.0 Bilateral primary osteoarthritis of knee; M47.819 Spondylosis without myelopathy or radiculopathy, site unspecified; F20.9 Schizophrenia, unspecified; F43.10 Post-traumatic stress disorder, unspecified; F31.9 Bipolar disorder, unspecified; F17.210 Nicotine dependence, cigarettes, uncomplicated; Z79.02 Long term (current) use of antithrombotics/antiplatelets; Z79.82 Long term (current) use of aspirin; Z79.899 Other long term (current) drug therapy; Z88.8 Allergy status to other drugs, medicaments and biological substances; Z91.018 Allergy to other foods; Z90.49 Acquired absence of other specified parts of digestive tract; Z95.5 Presence of coronary angioplasty implant and graft; Z87.898 Personal history of other specified conditions; Z86.010 Personal history of colon polyps; Z87.19 Personal history of other diseases of the digestive system; Z98.890 Other specified postprocedural states; Z82.5 Family history of asthma and other chronic lower respiratory diseases; Z81.1 Family history of alcohol abuse and dependence; Z82.49 Family history of ischemic heart disease and other diseases of the circulatory system
CPT/HCPCS: 96376; 96372; 96374; 99285; 36415; 93005; 93306; 85379; 80061; 80053; 83735; 84484 ×2; 85025; 85610; 85730; 71046; G0378 ×3; J1650; J2270; J1885 ×2

== ENCOUNTER 2022-12-22 02:37 | Emergency (ER) | payer MEDICARE, OTHER ==
[2022-12-22] MEDS ORDERED: ASPIRIN 81 MG PO STA (03:18)
[2022-12-22] MEDS ORDERED: SODIUM CHLORIDE 0.9% 500 ML 500 ML IV STA (03:18)
[2022-12-22] MEDS ORDERED: LORazepam 2 MG/ML INJ IV STA (03:18)
[2022-12-22 03:34] LABS: Basophils % (A) 0 %; Eosinophils % (A) 1 %; HCT 41.6 % (39.0-53.0); HGB 13.5 gm/dL (13.0-17.5); Lymphocytes % (A) 34 %; MCH 31.9 pg (25.0-35.0); MCHC 32.5 g/dL (31.0-37.0); MCV 98.4 fL (80.0-100.0); Mean Platelet Volume 8.7; Monocytes # (A) 0.3 k/uL (0-1.0); Monocytes % (A) 4 %; Neutrophils # (A) 3.5 k/uL (1.3-7.7); Neutrophils % (A) 58 %; Platelet Count 175 k/uL (150-450); RBC 4.22 m/uL (4.30-5.90); RDW 13.6 % (11.5-15.5); WBC 6.1 k/uL (3.8-10.6)
[2022-12-22 03:43] LABS: INR 0.9 (<1.2); Prothrombin Time 9.9 sec (10.0-12.5)
[2022-12-22 04:04] LABS: ALT 19 U/L (4-49); AST 27 U/L (17-59); African American GFR (CKD) >90 (>60 ml/min/1.73 sqM); Albumin 4.6 g/dL (3.5-5.0); Alkaline Phosphatase 56 U/L (38-126); Amylase 97 U/L (30-110); Anion Gap 14 mmol/L; Blood Urea Nitrogen 12 mg/dL (9-20); Calcium 9.5 mg/dL (8.4-10.2); Carbon Dioxide 20 mmol/L (22-30); Chloride 106 mmol/L (98-107); Glucose 131 mg/dL (74-99); Lipase 122 U/L (23-300); Magnesium 2.1 mg/dL (1.6-2.3); Non-African American GFR(CKD) >90 (>60 ml/min/1.73 sqM); Potassium 3.9 mmol/L (3.5-5.1); Sodium 140 mmol/L (137-145); Total Bilirubin 0.4 mg/dL (0.2-1.3); Total Protein 7.7 g/dL (6.3-8.2)
--- NOTE | 2022-12-22 05:03 | XR ---
EXAM: XR Chest, 2 Views CLINICAL HISTORY: ITS.REASON XR Reason: Chest Pain TECHNIQUE: Frontal and lateral views of the chest. COMPARISON: Chest 2 views dated 12/16/2022 FINDINGS: Lungs: Unremarkable. No consolidation. The pulmonary vasculature demonstrates no significant radiographic abnormality. Pleural space: Unremarkable. No pneumothorax. No large pleural effusion. Heart: Unremarkable. No cardiomegaly. Mediastinum: The mediastinal contours are stable and unremarkable. No tracheal deviation. Bones/joints: Unremarkable. IMPRESSION: No acute cardiopulmonary process or significant alteration when compared to the previous examination.
--- NOTE | 2022-12-22 05:53 | ED ---
Chest Pain HPI - General Chief Complaint: Chest Pain Stated Complaint: Auditory Hallucinations Time Seen by Provider: 12/22/22 03:06 Source: patient Mode of arrival: ambulatory Limitations: no limitations - History of Present Illness MD Complaint: chest pain -: days(s) Onset: during rest Pain Location: substernal Pain Radiation: none Severity: moderate Quality: dull Consistency: constant Improves With: nothing Worsens With: nothing Treatments Prior to Arrival: none - Related Data Home Medications Medication Instructions Recorded Confirmed Cetirizine HCl [Zyrtec] 10 mg PO DAILY 12/17/22 12/26/22 HYDROcodone/APAP 10-325MG [[place] 1 tab PO QID 12/17/22 12/26/22 10-325] QUEtiapine [SEROquel] 200 mg PO DAILY 12/17/22 12/26/22 Venlafaxine HCl ER [Effexor XR] 112.5 mg PO DAILY 12/17/22 12/26/22 carvediloL [Coreg] 3.125 mg PO BID 12/17/22 12/26/22 hydrOXYzine pamoate [Vistaril] 25 mg PO DAILY 12/17/22 12/26/22 Naloxone HCl [Narcan] 4 mg NASAL DIRECTED PRN 12/26/22 12/26/22 Previous Rx's Medication Instructions Recorded Clopidogrel [Plavix] 75 mg PO DAILY 30 Days #30 tablet 07/24/22 QUEtiapine [SEROquel] 400 mg PO HS 30 Days #30 tab 07/24/22 Aspirin 81 mg PO DAILY #30 tab 12/18/22 Atorvastatin [Lipitor] 40 mg PO HS #30 tab 12/18/22 Pantoprazole [Protonix] 40 mg PO BID 30 Days #60 tab 12/30/22 Sucralfate [Carafate] 1 gm PO BID 15 Days #300 ml 12/30/22 Allergies Allergy/AdvReac Type Severity Reaction Status Date / Time blueberry Allergy Rash/Hives Verified 12/26/22 07:46 nitroglycerin Allergy Swelling Verified 12/26/22 07:46 Review of Systems ROS Statement: Those systems with pertinent positive or pertinent negative responses have been documented in the HPI. ROS Other: All systems not noted in ROS Statement are negative. Constitutional: Denies: fever, chills Respiratory: Denies: cough, dyspnea Cardiovascular: Reports: chest pain. Denies: palpitations, edema Gastrointestinal: Denies: abdominal pain, nausea, vomiting, diarrhea Genitourinary: Denies: dysuria, hematuria Musculoskeletal: Denies: back pain Skin: Denies: rash Neurological: Denies: headache, weakness, numbness EKG Findings - EKG Results: EKG: interpreted by DAKOTAD, sinus rhythm (79 bpm), normal ST/T - Blocks, [place], Hypertrophy, ST Abn: AV and intraventricular conduction: left anterior fascicular block Past Medical History Past Medical History: Coronary Artery Disease (CAD), Chest Pain / Angina, Hyperlipidemia, Myocardial Infarction (LA), Osteoarthritis (OA) Additional Past Medical History / Comment(s): arthritis in back and bilateral knees,hx hiatal hernia Last Myocardial Infarction Date:: 2004 History of Any Multi-Drug Resistant Organisms: None Reported Past Surgical History: Bowel Resection, Heart Catheterization With Stent Additional Past Surgical History / Comment(s): Cardiac stents x 3, bowel surgery for pinpoint hole in bowel, L knee arthroscopy, colonoscopy/benign polypectomies,hiatal hernia repair Past Anesthesia/Blood Transfusion Reactions: No Reported Reaction Date of Last Stent Placement:: 2013 Past Psychological History: Bipolar, Depression, PTSD, Schizophrenia Smoking Status: Current every day smoker Past Alcohol Use History: Occasional Past Drug Use History: Cocaine, IV Drug Use, Marijuana, Opiates, Prescription Drug Abuse - Past Family History Father Family Medical History: Respiratory Disorder Additional Family Medical History / Comment(s): Father at age 64 from Black lung disease Mother Family Medical History: Hypertension, Myocardial Infarction ([place]) Additional Family Medical History / Comment(s): Mother of an [place] at 78yrs old. Brother(s) Family Medical History: Myocardial Infarction ([place]) Additional Family Medical History / Comment(s): Patient has 10 brothers and 2 from myocardial infarction and had history of alcoholism. Sister(s) Family Medical History: Hypertension, Myocardial Infarction ([place]) Additional Family Medical History / Comment(s): He has 7 sisters that are alive with no major medical problems. He has one son that has and one daughter that is alive and okay. General Exam Limitations: no limitations General appearance: alert, in no apparent distress Head exam: Present: atraumatic, normocephalic Eye exam: Present: normal appearance. Absent: scleral icterus, conjunctival injection ENT exam: Present: mucous membranes dry Neck exam: Present: normal inspection Respiratory exam: Present: normal lung sounds bilaterally. Absent: respiratory distress, wheezes, rales, rhonchi, stridor Cardiovascular Exam: Present: regular rate, normal rhythm, normal heart sounds. Absent: systolic murmur, diastolic murmur, rubs, gallop GI/Abdominal exam: Present: soft. Absent: distended, tenderness, guarding, rebound, rigid, mass Extremities exam: Present: normal inspection, normal capillary refill. Absent: pedal edema, calf tenderness Back exam: Present: normal inspection. Absent: CVA tenderness (R), CVA tenderness (L) Neurological exam: Present: alert Skin exam: Present: warm, dry, intact, normal color. Absent: rash Course Vital Signs 12/22/22 12/22/22 12/22/22 02:47 03:15 04:00 Temperature 98.0 F Pulse Rate 94 84 Respiratory 16 18 18 Rate Blood Pressure 149/77 O2 Sat by Pulse 98 99 96 Oximetry 12/22/22 12/22/22 12/22/22 05:00 06:00 07:58 Temperature 98.8 F Pulse Rate 86 81 99 Respiratory 18 18 18 Rate Blood Pressure 125/83 108/68 106/81 O2 Sat by Pulse 98 98 96 Oximetry Chest Pain MDM - MDM The patient had chest x-ray which I interpreted as negative for acute infiltrate, pneumothorax, congestive heart failure Was pt. sent in by a medical professional or institution (ISABELLA Sanchez, JUMPBASTING MACHINE OPERATOR, urgent care, hospital, or fdc...) When possible be specific @ -[No] Did you speak to anyone other than the patient for history (EMS, parent, family, police, friend...)? What history was obtained from this source @ -[No] Did you review nursing and triage notes (agree or disagree)? Why? @ -[I reviewed and agree with nursing and triage notes] Were old charts reviewed (outside hosp., previous admission, EMS record, old EKG, old radiological studies, urgent care reports/EKG's, fdc records)? Report findings @ -[No old charts were reviewed] Differential Diagnosis (chest pain, altered mental status, abdominal pain women, abdominal pain men, vaginal bleeding, weakness, fever, dyspnea, syncope, headache, dizziness, GI bleed, back pain, seizure, CVA, palpatations, mental health, musculoskeletal)? @ -[Differential Chest Pain: Stable Angina, Unstable Angina, STEMI, NSTEMI Aortic Dissection, Pneumothorax, Musculoskeletal, Esophageal Spasm GERD, Cholecystitis, Pancreatitis, Zoster, this is not meant to be an all-inclusive list. EKG interpreted by me (3pts min.). @ -[I interpreted As above] X-rays interpreted by me (1pt min.). @ -[I interpreted as above CT interpreted by me (1pt min.). @ -[None done] U/S interpreted by me (1pt. min.). @ -[None done] What testing was considered but not performed or refused? (CT, X-rays, U/S, labs)? Why? @ -[None] What meds were considered but not given or refused? Why? @ -[None] Did you discuss the management of the patient with other professionals (p rofessionals i.e. , PA, JUMPBASTING MACHINE OPERATOR, lab, RT, psych nurse, healthcare social worker, silver steward, teacher, agricultural extension officer, telehealth case manager)? Give summary @ -[No] Was smoking cessation discussed for >3mins.? @ -[Yes smoking cessation discussed Was critical care preformed (if so, how long)? @ -[No] Were there social determinants of health that impacted care today? How? (Homelessness, low income, unemployed, alcoholism, drug addiction, transportation, low edu. Level, literacy, decrease access to med. care, fpc, rehab)? @ -[No] Was there de-escalation of care discussed even if they declined (Discuss DNR or withdrawal of care, Hospice)? DNR status @ -[No] What co-morbidities impacted this encounter? (DM, HTN, Smoking, COPD, CAD, Cancer, CVA, ARF, Chemo, Hep., AIDS, mental health diagnosis, sleep apnea, morbid obesity)? @ -[None] Was patient admitted / discharged? Hospital course, mention meds given and route, prescriptions, significant lab abnormalities, going to OR and other pertinent info. @ -[This patient is 62-year-old man with one week of chest pains. His workup here is negative. The pain is of long enough duration that there would be a p ositive troponin. Patient to follow-up with cardiology and near term as outpatient. Discussed appropriate further care and follow-up as well as return parameters. Undiagnosed new problem with uncertain prognosis? @ -[No] Drug Therapy requiring intensive monitoring for toxicity (Heparin, Nitro, Insulin, Cardizem)? @ -[No] Were any procedures done? @ -[No] Diagnosis/symptom? @ -[Chest pain Acute, or Chronic, or Acute on Chronic? @ -[Acute on chronic chest pain Uncomplicated (without systemic symptoms) or Complicated (systemic symptoms)? @ -[Uncomplicated Side effects of treatment? @ -[No] Exacerbation, Progression, or Severe Exacerbation? @ -[No] Poses a threat to life or bodily function? How? (Chest pain, [place], [place], pneumonia, PE, COPD, DKA, ARF, appy, cholecystitis, CVA, Diverticulitis, Homicidal, Suicidal, threat to staff... and all critical care pts) @ -[No] Disposition Clinical Impression: Chest pain Disposition: HOME SELF-CARE Condition: Good Instructions (If sedation given, give patient instructions): Chest Pain (ED) Is patient prescribed a controlled substance at d/c from ED?: No Referrals: Nonstaff,Physician [Primary Care Provider] - 1-2 days
[2022-12-22 06:32] VITALS: RESP 18
[2022-12-22 08:11] VITALS: BP 106/81; PULSE 99; TEMP 98.8
== END 2022-12-22 08:00 | disposition home or self-care (01) ==
LOC: EC 02:37
DX: R07.89 Other chest pain (principal); I25.10 Atherosclerotic heart disease of native coronary artery without angina pectoris; E78.5 Hyperlipidemia, unspecified; I25.2 Old myocardial infarction; M19.90 Unspecified osteoarthritis, unspecified site; F31.9 Bipolar disorder, unspecified; F17.200 Nicotine dependence, unspecified, uncomplicated; F12.90 Cannabis use, unspecified, uncomplicated; Z91.018 Allergy to other foods; Z88.8 Allergy status to other drugs, medicaments and biological substances; Z79.02 Long term (current) use of antithrombotics/antiplatelets; Z79.899 Other long term (current) drug therapy
CPT/HCPCS: 36415; 93005; 80053; 82150; 83690; 83735; 84484; 85025; 85610; 85730; 71046; 99285; 96374; 96361 ×4; J2060

== ENCOUNTER 2022-12-26 05:42 | Observation (INO) | payer MEDICARE, OTHER ==
[2022-12-26 06:26] LABS: ALT 17 U/L (4-49); AST 25 U/L (17-59); African American GFR (CKD) >90 (>60 ml/min/1.73 sqM); Albumin 4.1 g/dL (3.5-5.0); Alkaline Phosphatase 43 U/L (38-126); Anion Gap 11 mmol/L; Blood Urea Nitrogen 8 mg/dL (9-20); Calcium 9.8 mg/dL (8.4-10.2); Carbon Dioxide 26 mmol/L (22-30); Chloride 105 mmol/L (98-107); Glucose 94 mg/dL (74-99); Non-African American GFR(CKD) 86 (>60 ml/min/1.73 sqM); Potassium 4.1 mmol/L (3.5-5.1); Sodium 142 mmol/L (137-145); Total Bilirubin 0.4 mg/dL (0.2-1.3); Total Protein 7.1 g/dL (6.3-8.2)
--- NOTE | 2022-12-26 06:41 | ED ---
General Adult HPI <Alen Kerns - Last Filed: 12/26/22 07:56> - General Source: patient, RN notes reviewed Mode of arrival: ambulatory Limitations: no limitations <Bettina Rocha - Last Filed: 12/26/22 08:10> - General Chief complaint: Chest Pain Stated complaint: Chest Pain Time Seen by Provider: 12/26/22 06:33 - History of Present Illness Initial comments: This is a 62-year-old male with past medical history of cardiac disease as well as hypertension high cholesterol and smoking. Patient comes in today stating he doesn't feel well he has chest pain shortness of breath and had a diaphoretic episode just prior to arrival. Patient states the pain started today per patient denies any radiation of the pain. Patient denies any back pain. Patient denies any fever chills or cough recently. Patient denies abdominal pain patient denies nausea vomiting or diarrhea. (Alen Kerns) 62-year-old male presents the emergency department with a chief comp laint of weakness. Patient reports generalized weakness, shortness of breath last week. Patient was here recently for the same. Denies any change in symptoms. (Bettina Rocha) - Related Data Home Medications Medication Instructions Recorded Confirmed Cetirizine HCl [Zyrtec] 10 mg PO DAILY 12/17/22 12/26/22 HYDROcodone/APAP 10-325MG [[place] 1 tab PO QID 12/17/22 12/26/22 10-325] Ibuprofen [Motrin] 800 mg PO Q8H PRN 12/17/22 12/26/22 QUEtiapine [SEROquel] 200 mg PO DAILY 12/17/22 12/26/22 Venlafaxine HCl ER [Effexor XR] 112.5 mg PO DAILY 12/17/22 12/26/22 carvediloL [Coreg] 3.125 mg PO BID 12/17/22 12/26/22 hydrOXYzine pamoate [Vistaril] 25 mg PO DAILY 12/17/22 12/26/22 Naloxone HCl [Narcan] 4 mg NASAL DIRECTED PRN 12/26/22 12/26/22 Previous Rx's Medication Instructions Recorded Clopidogrel [Plavix] 75 mg PO DAILY 30 Days #30 tablet 07/24/22 QUEtiapine [SEROquel] 400 mg PO HS 30 Days #30 tab 07/24/22 Aspirin 81 mg PO DAILY #30 tab 12/18/22 Atorvastatin [Lipitor] 40 mg PO HS #30 tab 12/18/22 Allergies Allergy/AdvReac Type Severity Reaction Status Date / Time blueberry Allergy Rash/Hives Verified 12/26/22 07:46 nitroglycerin Allergy Swelling Verified 12/26/22 07:46 Review of Systems ROS Other: All systems not noted in ROS Statement are negative. <Alen Kerns - Last Filed: 12/26/22 07:56> ROS Other: All systems not noted in ROS Statement are negative. <Bettina Rocha - Last Filed: 12/26/22 08:10> ROS Statement: Those systems with pertinent positive or pertinent negative responses have been documented in the HPI. Past Medical History Past Medical History: Coronary Artery Disease (CAD), Chest Pain / Angina, Hyperlipidemia, Myocardial Infarction (SD), Osteoarthritis (OA) Additional Past Medical History / Comment(s): arthritis in back and bilateral knees,hx hiatal hernia Last Myocardial Infarction Date:: 2004 History of Any Multi-Drug Resistant Organisms: None Reported Past Surgical History: Bowel Resection, Heart Catheterization With Stent Additional Past Surgical History / Comment(s): Cardiac stents x 3, bowel surgery for pinpoint hole in bowel, L knee arthroscopy, colonoscopy/benign polypectomies,hiatal hernia repair Past Anesthesia/Blood Transfusion Reactions: No Reported Reaction Date of Last Stent Placement:: 2013 Past Psychological History: Bipolar, Depression, PTSD, Schizophrenia Smoking Status: Current every day smoker Past Alcohol Use History: Occasional Past Drug Use History: Cocaine, IV Drug Use, Marijuana, Opiates, Prescription Drug Abuse - Past Family History Father Family Medical History: Respiratory Disorder Additional Family Medical History / Comment(s): Father at age 64 from Black lung disease Mother Family Medical History: Hypertension, Myocardial Infarction (SD) Additional Family Medical History / Comment(s): Mother of an SD at 78yrs old. Brother(s) Family Medical History: Myocardial Infarction (SD) Additional Family Medical History / Comment(s): Patient has 10 brothers and 2 from myocardial infarction and had history of alcoholism. Sister(s) Family Medical History: Hypertension, Myocardial Infarction (SD) Additional Family Medical History / Comment(s): He has 7 sisters that are alive with no major medical problems. He has one son that has and one daughter that is alive and okay. <Bettina Rocha - Last Filed: 12/26/22 08:10> General Exam <Alen Kerns - Last Filed: 12/26/22 07:56> Limitations: no limitations <Bettina Rocha - Last Filed: 12/26/22 08:10> - General Exam Comments Initial Comments: GENERAL: Patient is well-developed and well-nourished. Patient is nontoxic and well-hydrated and is in mild distress. ENT: Neck is soft and supple. No significant lymphadenopathy is noted. Oropharynx is clear. Moist mucous membranes. Neck has full range of motion without eliciting any pain. EYES: The sclera were anicteric and conjunctiva were pink and moist. Extraocular movements were intact and pupils were equal round and reactive to light. Eyelids were unremarkable. PULMONARY: Unlabored respirations. Good breath sounds bilaterally. No audible rales rhonchi or wheezing was noted. CARDIOVASCULAR: There is a regular rate and rhythm without any murmurs gallops or rubs. ABDOMEN: Soft and nontender with normal bowel sounds. SKIN: Skin is clear with no lesions or rashes and otherwise unremarkable. NEUROLOGIC: Patient is alert and oriented x3. Cranial nerves II through XII are grossly intact. Motor and sensory are also intact. Normal speech, volume and content. Symmetrical smile. MUSCULOSKELETAL: Normal extremities with adequate strength and full range of motion. No lower extremity swelling or edema. No calf tenderness. LYMPHATICS: No significant lymphadenopathy is noted PSYCHIATRIC: Normal psychiatric evaluation. (Alen Kerns) Visual Physical Exam Vital signs reviewed General: Well-appearing, nontoxic, no acute distress. Head: Normocephalic, atraumatic Eyes: PERRLA, EOMI ENT: Airway patent Chest: Nonlabored breathing Skin: No visual rash, normal skin tone Neuro: Alert and oriented 3 Musculoskeletal: No gross abnormalities (Bettina Rocha) Course Vital Signs 12/26/22 12/26/22 05:46 07:24 Temperature 98.2 F Pulse Rate 92 69 Respiratory 18 18 Rate Blood Pressure 124/91 120/84 O2 Sat by Pulse 97 100 Oximetry Medical Decision Making - Lab Data Result diagrams: 12/26/22 05:59 12/26/22 05:59 <Alen Kerns - Last Filed: 12/26/22 07:56> - Lab Data Result diagrams: 12/26/22 05:59 12/26/22 05:59 <Bettina Rocha - Last Filed: 12/26/22 08:10> - Medical Decision Making EKG is interpreted by myself. EKG shows a sinus rhythm at 84 bpm HI interval 252 QRS 90 QT interval 370 QTC is 419. Patient's EKG shows no ST segment elevation or depression Was pt. sent in by a medical professional or institution (, PA, PROPERTY FIELD ADJUSTER, urgent care, hospital, or [facility]...) When possible be specific @ -No Did you speak to anyone other than the patient for history (EMS, parent, family, police, friend...)? What history was obtained from this source @ -No Did you review nursing and triage notes (agree or disagree)? Why? @ -I reviewed and agree with nursing and triage notes Were old charts reviewed (outside hosp., previous admission, EMS record, old EKG, old radiological studies, urgent care reports/EKG's, [facility] records)? Report findings @ -I reviewed prior charts from prior lab work on this patient Differential Diagnosis (chest pain, altered mental status, abdominal pain women, abdominal pain men, vaginal bleeding, weakness, fever, dyspnea, syncope, headache, dizziness, GI bleed, back pain, seizure, CVA, palpatations, mental health, musculoskeletal)? @ -Differential Chest Pain: Stable Angina, Unstable Angina, STEMI, NSTEMI Aortic Dissection, Pneumothorax, Musculoskeletal, Esophageal Spasm GERD, Cholecystitis, Pancreatitis, Zoster, this is not meant to be an all-inclusive list. EKG interpreted by me (3pts min.). @ -As above X-rays interpreted by me (1pt min.). @ -Chest x-ray shows no acute abnormality CT interpreted by me (1pt min.). @ -None done U/S interpreted by me (1pt. min.). @ -None done What testing was considered but not performed or refused? (CT, X-rays, U/S, labs)? Why? @ -None What meds were considered but not given or refused? Why? @ -None Did you discuss the management of the patient with other professionals (professionals i.e. , PA, PROPERTY FIELD ADJUSTER, lab, RT, psych nurse, psychosocial rehabilitation counselor, patch washer, teacher, family preservation officer, outpatient case manager)? Give summary @ -Spoke with the [facility] hospitalist agreed to admit the patient Was smoking cessation discussed for >3mins.? @ -No Was critical care preformed (if so, how long)? @ -No Were there social determinants of health that impacted care today? How? (Homelessness, low income, unemployed, alcoholism, drug addiction, transportation, low edu. Level, literacy, decrease access to med. care, correction, rehab)? @ -No Was there de-escalation of care discussed even if they declined (Discuss DNR or withdrawal of care, Hospice)? DNR status @ -No What co-morbidities impacted this encounter? (DM, HTN, Smoking, COPD, CAD, Cancer, CVA, ARF, Chemo, Hep., AIDS, mental health diagnosis, sleep apnea, morbid obesity)? @ -None Was patient admitted / discharged? Hospital course, mention meds given and route, prescriptions, significant lab abnormalities, going to OR and other pertinent info. @ -Nitropaste emergency department. Labs were drawn all labs did not show a refill of his chest pain. X-ray was normal. I spoke with the [facility] hospitalist agreed to admit the patient I admitted the patient I wrote admitting orders I consulted cardiology. Patient was continuing to have chest pain in the emergency department. Undiagnosed new problem with uncertain prognosis? @ -No Drug Therapy requiring intensive monitoring for toxicity (Heparin, Nitro, Insulin, Cardizem)? @ -No Were any procedures done? @ -No Diagnosis/symptom? @ -Chest pain Acute, or Chronic, or Acute on Chronic? @ -Acute Uncomplicated (without systemic symptoms) or Complicated (systemic symptoms)? @ -Complicated Side effects of treatment? @ -No Exacerbation, Progression, or Severe Exacerbation? @ -No Poses a threat to life or bodily function? How? (Chest pain, USA, SD, pneumonia, PE, COPD, DKA, ARF, appy, cholecystitis, CVA, Diverticulitis, Homicidal, Suicidal, threat to staff... and all critical care pts) @ -Yes chest pain currently to an SD and leads 2 end organ dysfunction (Alen Kerns) - Lab Data Lab Results 12/26/22 12/26/22 12/26/22 Range/Units 05:59 05:59 05:59 WBC 3.5 L (3.8-10.6) k/uL RBC 3.75 L (4.30-5.90) m/uL Hgb 11.9 L (13.0-17.5) gm/dL Hct 36.5 L (39.0-53.0) % MCV 97.2 (80.0-100.0) fL MCH 31.7 (25.0-35.0) pg MCHC 32.6 (31.0-37.0) g/dL RDW 13.7 (11.5-15.5) % Plt Count 170 (150-450) k/uL MPV 8.8 Neutrophils % (Manual) 36 % Lymphocytes % (Manual) 47 % Monocytes % (Manual) 12 % Eosinophils % (Manual) 4 % Basophils % (Manual) 1 % Neutrophils # (Manual) 1.26 L (1.3-7.7) k/uL Lymphocytes # (Manual) 1.65 (1.0-4.8) k/uL Monocytes # (Manual) 0.42 (0-1.0) k/uL Eosinophils # (Manual) 0.14 (0-0.7) k/uL Basophils # (Manual) 0.04 (0-0.2) k/uL Nucleated RBCs 0 (0-0) /100 WBC Manual Slide Review Performed PT 10.1 (10.0-12.5) sec INR 0.9 (<1.2) APTT 23.9 (22.0-30.0) sec Sodium 142 (137-145) mmol/L Potassium 4.1 (3.5-5.1) mmol/L Chloride 105 (98-107) mmol/L Carbon Dioxide 26 (22-30) mmol/L Anion Gap 11 mmol/L BUN 8 L (9-20) mg/dL Creatinine 0.94 (0.66-1.25) mg/dL Est GFR (CKD-EPI)AfAm >90 (>60 ml/min/1.73 sqM) Est GFR (CKD-EPI)NonAf 86 (>60 ml/min/1.73 sqM) Glucose 94 (74-99) mg/dL Calcium 9.8 (8.4-10.2) mg/dL Magnesium 2.0 (1.6-2.3) mg/dL Total Bilirubin 0.4 (0.2-1.3) mg/dL AST 25 (17-59) U/L ALT 17 (4-49) U/L Alkaline Phosphatase 43 (38-126) U/L Troponin I (0.000-0.034) ng/mL Total Protein 7.1 (6.3-8.2) g/dL Albumin 4.1 (3.5-5.0) g/dL 12/26/22 Range/Units 05:59 WBC (3.8-10.6) k/uL RBC (4.30-5.90) m/uL Hgb (13.0-17.5) gm/dL Hct (39.0-53.0) % MCV (80.0-100.0) fL MCH (25.0-35.0) pg MCHC (31.0-37.0) g/dL RDW (11.5-15.5) % Plt Count (150-450) k/uL MPV Neutrophils % (Manual) % Lymphocytes % (Manual) % Monocytes % (Manual) % Eosinophils % (Manual) % Basophils % (Manual) % Neutrophils # (Manual) (1.3-7.7) k/uL Lymphocytes # (Manual) (1.0-4.8) k/uL Monocytes # (Manual) (0-1.0) k/uL Eosinophils # (Manual) (0-0.7) k/uL Basophils # (Manual) (0-0.2) k/uL Nucleated RBCs (0-0) /100 WBC Manual Slide Review PT (10.0-12.5) sec INR (<1.2) APTT (22.0-30.0) sec Sodium (137-145) mmol/L Potassium (3.5-5.1) mmol/L Chloride (98-107) mmol/L Carbon Dioxide (22-30) mmol/L Anion Gap mmol/L BUN (9-20) mg/dL Creatinine (0.66-1.25) mg/dL Est GFR (CKD-EPI)AfAm (>60 ml/min/1.73 sqM) Est GFR (CKD-EPI)NonAf (>60 ml/min/1.73 sqM) Glucose (74-99) mg/dL Calcium (8.4-10.2) mg/dL Magnesium (1.6-2.3) mg/dL Total Bilirubin (0.2-1.3) mg/dL AST (17-59) U/L ALT (4-49) U/L Alkaline Phosphatase (38-126) U/L Troponin I <0.012 (0.000-0.034) ng/mL Total Protein (6.3-8.2) g/dL Albumin (3.5-5.0) g/dL Disposition Time of Disposition: 08:00 <Alen Kerns - Last Filed: 12/26/22 07:56> <Bettina Rocha - Last Filed: 12/26/22 08:10> Clinical Impression: Chest pain Disposition: ADMITTED IP TO THIS HOSP Referrals: Nonstaff,Physician [Primary Care Provider] - 1-2 days
[2022-12-26 06:44] LABS: INR 0.9 (<1.2); Partial Thromboplastin Time 23.9 sec (22.0-30.0); Prothrombin Time 10.1 sec (10.0-12.5)
[2022-12-26 06:52] LABS: HCT 36.5 % (39.0-53.0); HGB 11.9 gm/dL (13.0-17.5); MCH 31.7 pg (25.0-35.0); MCHC 32.6 g/dL (31.0-37.0); MCV 97.2 fL (80.0-100.0); Mean Platelet Volume 8.8; Platelet Count 170 k/uL (150-450); RBC 3.75 m/uL (4.30-5.90); RDW 13.7 % (11.5-15.5); WBC 3.5 k/uL (3.8-10.6)
--- NOTE | 2022-12-26 07:20 | XR ---
EXAMINATION TYPE: XR chest 2V DATE OF EXAM: 12/26/2022 6:06 AM CLINICAL INDICATION:Male, 62 years old with history of Chest Pain; [facility] COMPARISON: Chest radiographs from 12/22/2022 TECHNIQUE: XR chest 2V Frontal and lateral views of the chest. FINDINGS: Lungs/Pleura: There is no evidence of pleural effusion, focal consolidation, or pneumothorax. Pulmonary vascularity: Unremarkable. Heart/mediastinum: Cardiomediastinal silhouette is unremarkable. Musculoskeletal: No acute osseous pathology. Other findings: None IMPRESSION: No acute cardiopulmonary disease/process.
[2022-12-26] MEDS ORDERED: NITROGLYCERIN OINT 1 INCH/GM PACKET TOPICAL STA (07:25)
[2022-12-26 07:57] LABS: Basophils # (M) 0.04 k/uL (0-0.2); Eosinophils # (M) 0.14 k/uL (0-0.7); Lymphocytes # (M) 1.65 k/uL (1.0-4.8); Monocytes # (M) 0.42 k/uL (0-1.0); Neutrophils # (M) 1.26 k/uL (1.3-7.7); Neutrophils % (M) 36 %; Nucleated Red Blood Cells 0 /100 WBC (0-0); Total Cells Counted 100
[2022-12-26] MEDS ORDERED: NITROGLYCERIN SL TABS 0.4 MG TAB SUBLINGUAL PRN (08:00)
[2022-12-26] MEDS: ASPIRIN 81 MG PO STA ×2 (08:37→08:40)
[2022-12-26] MEDS ORDERED: ASPIRIN 81 MG PO STA (08:38)
[2022-12-26] MEDS ORDERED: MORPHINE SULFATE 2 MG/ML SYRINGE IVP STA (08:43)
[2022-12-26] MEDS ORDERED: NALOXONE 0.4 MG/ML 1 ML VIAL IVP PRN (09:22)
[2022-12-26] MEDS ORDERED: ONDANSETRON 4 MG/2 ML VIAL IVP PRN (09:22)
[2022-12-26] MEDS ORDERED: ACETAMINOPHEN TAB 325 MG TAB PO PRN (09:22)
[2022-12-26] MEDS: hydrOXYzine pamoate 25 MG CAP PO SCH (10:33)
[2022-12-26] MEDS: carvediloL 3.125 MG TAB PO SCH ×2 (10:33→17:52)
[2022-12-26] MEDS: CLOPIDOGREL 75 MG TAB PO SCH (10:33)
[2022-12-26] MEDS: LORATADINE 10 MG TAB PO SCH (10:34)
[2022-12-26] MEDS: QUEtiapine 200 MG TAB PO SCH (10:34)
[2022-12-26] MEDS ORDERED: NITROGLYCERIN OINT 1 INCH/GM PACKET TOPICAL SCH (12:00)
--- NOTE | 2022-12-26 12:00 | P.HPIM ---
History of Present Illness H&P Date: 12/26/22 Chief Complaint: Chest pain * 62-year-old gentleman with past medical history significant for COPD, hyperlipidemia, coronary artery disease with history of PCI, polysubstance use history of schizophrenia presents to the emergency department with repeat episode of chest pain. * Patient was recently admitted and discharged on 12/18/22 seen by cardiology for similar presentation. Patient states chest pain started earlier in the day and was midsternal. Chest pain was nonradiating no aggravating or relieving factors. Patient was complaining of shortness of breath and diaphoresis associated with chest pain * Workup in ER included a chest x-ray which was unremarkable, EKG obtained showed sinus rhythm QTC within normal limits no significant ST segment changes * Further workup in ER included CBC which showed WBC of 3.5 hemoglobin 11.9 platelet 170, PT INR 0.9 10.1, serum chemistry showed sodium of 142 potassium 4.1, BUN/creatinine and creatinine within normal limits * Initial troponin obtained within normal limits * Patient placed in observation with consultation from cardiology for recurrent chest pain. Patient was scheduled to see cardiology within a week from disch arge on 12/18/22 * During the encounter patient does state his chest pain is associated with exertion, will request repeat assessment from cardiology REVIEW OF SYSTEMS: Chest pain CONSTITUTIONAL: No fever, no malaise, no fatigue. HEENT: No recent visual problems or hearing problems. Denied any sore throat. CARDIOVASCULAR: No chest pain, orthopnea, PND, no palpitations, no syncope. PULMONARY: No shortness of breath, no cough, no hemoptysis. GASTROINTESTINAL: No diarrhea, no nausea, no vomiting, no abdominal pain. NEUROLOGICAL: No headaches, no weakness, no numbness. HEMATOLOGICAL: Denies any bleeding or petechiae. GENITOURINARY: Denies any burning micturition, frequency, or urgency. MUSCULOSKELETAL/RHEUMATOLOGICAL: Denies any joint pain, swelling, or any muscle pain. ENDOCRINE: Denies any polyuria or polydipsia. PHYSICAL EXAMINATION: GENERAL: The patient is alert and oriented x3, not in any acute distress. Well developed, well nourished. HEENT: Pupils are round and equally reacting to light. EOMI. No scleral icterus. CARDIOVASCULAR: S1 and S2 present. No murmurs, rubs, or gallops. PULMONARY: Chest is clear to auscultation, no wheezing or crackles. ABDOMEN: Soft, nontender, nondistended, normoactive bowel sounds. No palpable organomegaly. MUSCULOSKELETAL: No joint swelling or deformity. EXTREMITIES: No cyanosis, clubbing, or pedal edema. NEUROLOGICAL: Gross neurological examination did not reveal any focal deficits. SKIN: No rashes. Past Medical History Past Medical History: Coronary Artery Disease (CAD), Chest Pain / Angina, Hyperlipidemia, Myocardial Infarction (MA), Osteoarthritis (OA) Additional Past Medical History / Comment(s): arthritis in back and bilateral knees,hx hiatal hernia Last Myocardial Infarction Date:: 2004 History of Any Multi-Drug Resistant Organisms: None Reported Past Surgical History: Bowel Resection, Heart Catheterization With Stent Additional Past Surgical History / Comment(s): Cardiac stents x 3, bowel surgery for pinpoint hole in bowel, L knee arthroscopy, colonoscopy/benign polypectomie s,hiatal hernia repair Past Anesthesia/Blood Transfusion Reactions: No Reported Reaction Date of Last Stent Placement:: 2013 Past Psychological History: Bipolar, Depression, PTSD, Schizophrenia Smoking Status: Current every day smoker Past Alcohol Use History: Occasional Past Drug Use History: Cocaine, IV Drug Use, Marijuana, Opiates, Prescription Drug Abuse - Past Family History Father Family Medical History: Respiratory Disorder Additional Family Medical History / Comment(s): Father at age 64 from Black lung disease Mother Family Medical History: Hypertension, Myocardial Infarction (MA) Additional Family Medical History / Comment(s): Mother of an MA at 78yrs old. Brother(s) Family Medical History: Myocardial Infarction (MA) Additional Family Medical History / Comment(s): Patient has 10 brothers and 2 from myocardial infarction and had history of alcoholism. Sister(s) Family Medical History: Hypertension, Myocardial Infarction (MA) Additional Family Medical History / Comment(s): He has 7 sisters that are alive with no major medical problems. He has one son that has and one daughter that is alive and okay. Medications and Allergies Home Medications Medication Instructions Recorded Confirmed Type Clopidogrel [Plavix] 75 mg PO DAILY 30 Days #30 tablet 07/24/22 12/26/22 Rx QUEtiapine [SEROquel] 400 mg PO HS 30 Days #30 tab 07/24/22 12/26/22 Rx Cetirizine HCl [Zyrtec] 10 mg PO DAILY 12/17/22 12/26/22 History HYDROcodone/APAP 10-325MG [[place] 1 tab PO QID 12/17/22 12/26/22 History 10-325] Ibuprofen [Motrin] 800 mg PO Q8H PRN 12/17/22 12/26/22 History QUEtiapine [SEROquel] 200 mg PO DAILY 12/17/22 12/26/22 History Venlafaxine HCl ER [Effexor XR] 112.5 mg PO DAILY 12/17/22 12/26/22 History carvediloL [Coreg] 3.125 mg PO BID 12/17/22 12/26/22 History hydrOXYzine pamoate [Vistaril] 25 mg PO DAILY 12/17/22 12/26/22 History Aspirin 81 mg PO DAILY #30 tab 12/18/22 12/26/22 Rx Atorvastatin [Lipitor] 40 mg PO HS #30 tab 12/18/22 12/26/22 Rx Naloxone HCl [Narcan] 4 mg NASAL DIRECTED PRN 12/26/22 12/26/22 History Allergies Allergy/AdvReac Type Severity Reaction Status Date / Time blueberry Allergy Rash/Hives Verified 12/26/22 07:46 nitroglycerin Allergy Swelling Verified 12/26/22 07:46 Physical Exam Vitals: Vital Signs Temp Pulse Resp BP Pulse Ox 12/26/22 08:41 89 18 111/79 99 12/26/22 07:24 69 18 120/84 100 12/26/22 05:46 98.2 F 92 18 124/91 97 Intake and Output 12/25/22 12/26/22 12/26/22 22:59 06:59 14:59 Other: Weight 72.575 kg Results CBC & Chem 7: 12/26/22 05:59 12/26/22 05:59 Labs: Abnormal Lab Results - Last 24 Hours (Table) 12/26/22 12/26/22 Range/Units 05:59 05:59 WBC 3.5 L (3.8-10.6) k/uL RBC 3.75 L (4.30-5.90) m/uL Hgb 11.9 L (13.0-17.5) gm/dL Hct 36.5 L (39.0-53.0) % Neutrophils # (Manual) 1.26 L (1.3-7.7) k/uL BUN 8 L (9-20) mg/dL Thrombosis Risk Factor Assmnt - DVT/VTE Prophylaxis DVT/VTE Prophylaxis: Mechanical Prophylaxis ordered Assessment and Plan Assessment: Assessment and plan * Chest pain history of coronary artery disease rule out ACS * History of schizophrenia * Hypertension * Dyslipidemia * Patient placed in observation, serial troponins ordered, EKG as needed for chest pain. Continue medical management aspirin, Lipitor, Coreg, Plavix cardiology consulted * Echocardiogram completed during last hospitalization one week ago showed preserved ejection fraction no wall motion abnormality noted. Patient was scheduled to follow-up with cardiology post discharge * In regards to hypertension continue patient on Coreg * In regards to history of schizophrenia continue home medications Seroquel, Effexor. QTC within normal limits checked on EKG done on admission * CODE STATUS is full code
[2022-12-26] MEDS: VENLAFAXINE HCL ER 37.5 MG CAP PO SCH (13:12)
[2022-12-26] MEDS ORDERED: MAG HYDROX/AL HYDROX/SIMETH 30 ML CUP PO PRN (13:14)
--- NOTE | 2022-12-26 13:15 | P.CRDCN ---
History of Present Illness Consult date: 12/26/22 Consult reason: chest pain History of present illness: HISTORY OF PRESENT ILLNESS: This is a 62-year-old male with a past medical history significant for coronary artery disease with previous stenting, hyperlipidemia, COPD, nicotine dependenc e, depression, PTSD, drug abuse and schizophrenia. Patient has not been following in the office with a health care social worker. Patient had a recent hospitalization in November for chest pain was instructed to follow-up in the office within a week and has not done so. We have been asked to see the patient in consultation for chest pain. Patient had sudden onset of chest pain prior to coming in the hospital this morning. No fever, chills, cough. No nausea vomiting diarrhea. No radiation of the pain. Patient is seen today in the emergency center waiting for that on the observation unit. Currently denies any drug use. EKG reveals sinus mechanism with nonspecific ST-T wave changes. Chest xray negative for acute process Laboratory data: Troponin negative 3 Most recent echocardiogram obtained in 12/17/2022 revealed mild left ventricular size and systolic function. Mild mitral and tricuspid regurgitation. Cardiac catheterization history: June 2022 revealing mild in-stent restenosis of LAD in the midportion and normal left sided filling pressures. Medical management was recommended. REVIEW OF SYSTEMS: At the time of my exam: CONSTITUTIONAL: Denies fever or chills. HEENT: Denies blurred vision, vision changes, or eye pain. Denies hemoptysis CARDIOVASCULAR: Denies chest pain. Denies orthopnea. Denies PND. Denies palpitations RESPIRATORY: Denies shortness of breath. GASTROINTESTINAL: Denies abdominal pain. Denies nausea or vomiting. HEMATOLOGIC: Denies bleeding disorders. GENITOURINARY: Denies any blood in urine. SKIN: Denies pruitis. Denies rash. PHYSICAL EXAM: VITAL SIGNS: Reviewed. GENERAL: Well-developed in no acute distress. HEENT: Head is normocephalic. Pupils are equal, round. Sclerae anicteric. Mucous membranes of the mouth are moist. Neck supple. No JVD or thyromegaly LUNGS: Respirations even and unlabored. Lungs essentially clear to auscultation bilaterally. HEART: Regular rate and rhythm. S1 and S2 heard. ABDOMEN: Soft. Nondistended. Nontender. EXTREMITIES: Normal range of motion. No clubbing or cyanosis. Peripheral pulses intact. No lower extremity edema NEUROLOGIC: Awake and alert. Oriented x 3. ASSESSMENT: Atypical chest pain Coronary artery disease with previous stenting of the LAD Hyperlipidemia COPD Nicotine dependence Depression PTSD Schizophrenia PLAN: An acute coronary event has been ruled out No need to repeat echocardiogram. Patient is cleared for discharge from cardiology. Patient to follow-up post discharge with Dr. Moody Nurse practitioner note has been reviewed by physician. Signing provider agrees with the documented findings, assessment, and plan of care. Past Medical History Past Medical History: Coronary Artery Disease (CAD), Chest Pain / Angina, Hyperlipidemia, Myocardial Infarction (DC), Osteoarthritis (OA) Additional Past Medical History / Comment(s): arthritis in back and bilateral knees,hx hiatal hernia Last Myocardial Infarction Date:: 2004 History of Any Multi-Drug Resistant Organisms: None Reported Past Surgical History: Bowel Resection, Heart Catheterization With Stent Additional Past Surgical History / Comment(s): Cardiac stents x 3, bowel surgery for pinpoint hole in bowel, L knee arthroscopy, colonoscopy/benign polypectomies,hiatal hernia repair Past Anesthesia/Blood Transfusion Reactions: No Reported Reaction Date of Last Stent Placement:: 2013 Past Psychological History: Bipolar, Depression, PTSD, Schizophrenia Smoking Status: Current every day smoker Past Alcohol Use History: Occasional Past Drug Use History: Cocaine, IV Drug Use, Marijuana, Opiates, Prescription Drug Abuse - Past Family History Father Family Medical History: Respiratory Disorder Additional Family Medical History / Comment(s): Father at age 64 from Black lung disease Mother Family Medical History: Hypertension, Myocardial Infarction (DC) Additional Family Medical History / Comment(s): Mother of an DC at 78yrs old. Brother(s) Family Medical History: Myocardial Infarction (DC) Additional Family Medical History / Comment(s): Patient has 10 brothers and 2 from myocardial infarction and had history of alcoholism. Sister(s) Family Medical History: Hypertension, Myocardial Infarction (DC) Additional Family Medical History / Comment(s): He has 7 sisters that are alive with no major medical problems. He has one son that has and one daughter that is alive and okay. Medications and Allergies Home Medications Medication Instructions Recorded Confirmed Type Clopidogrel [Plavix] 75 mg PO DAILY 30 Days #30 tablet 07/24/22 12/26/22 Rx QUEtiapine [SEROquel] 400 mg PO HS 30 Days #30 tab 07/24/22 12/26/22 Rx Cetirizine HCl [Zyrtec] 10 mg PO DAILY 12/17/22 12/26/22 History HYDROcodone/APAP 10-325MG [[place] 1 tab PO QID 12/17/22 12/26/22 History 10-325] Ibuprofen [Motrin] 800 mg PO Q8H PRN 12/17/22 12/26/22 History QUEtiapine [SEROquel] 200 mg PO DAILY 12/17/22 12/26/22 History Venlafaxine HCl ER [Effexor XR] 112.5 mg PO DAILY 12/17/22 12/26/22 History carvediloL [Coreg] 3.125 mg PO BID 12/17/22 12/26/22 History hydrOXYzine pamoate [Vistaril] 25 mg PO DAILY 12/17/22 12/26/22 History Aspirin 81 mg PO DAILY #30 tab 12/18/22 12/26/22 Rx Atorvastatin [Lipitor] 40 mg PO HS #30 tab 12/18/22 12/26/22 Rx Naloxone HCl [Narcan] 4 mg NASAL DIRECTED PRN 12/26/22 12/26/22 History Allergies Allergy/AdvReac Type Severity Reaction Status Date / Time blueberry Allergy Rash/Hives Verified 12/26/22 07:46 nitroglycerin Allergy Swelling Verified 12/26/22 07:46 Physical Exam Vitals: Vital Signs Temp Pulse Pulse Resp BP Pulse Ox 12/26/22 10:32 78 16 119/86 99 12/26/22 09:29 89 12/26/22 08:41 89 18 111/79 99 12/26/22 07:24 69 18 120/84 100 12/26/22 05:46 98.2 F 92 18 124/91 97 Intake and Output 12/25/22 12/26/22 12/26/22 22:59 06:59 14:59 Other: Weight 72.575 kg Results 12/26/22 05:59 12/26/22 05:59 Cardiac Enzymes 12/26/22 12/26/22 12/26/22 Range/Units 05:59 05:59 08:50 AST 25 (17-59) U/L Troponin I <0.012 <0.012 (0.000-0.034) ng/mL 12/26/22 Range/Units 11:29 AST (17-59) U/L Troponin I <0.012 (0.000-0.034) ng/mL Coagulation 12/26/22 Range/Units 05:59 PT 10.1 (10.0-12.5) sec APTT 23.9 (22.0-30.0) sec CBC 12/26/22 Range/Units 05:59 WBC 3.5 L (3.8-10.6) k/uL RBC 3.75 L (4.30-5.90) m/uL Hgb 11.9 L (13.0-17.5) gm/dL Hct 36.5 L (39.0-53.0) % Plt Count 170 (150-450) k/uL Comprehensive Metabolic Panel 12/26/22 Range/Units 05:59 Sodium 142 (137-145) mmol/L Potassium 4.1 (3.5-5.1) mmol/L Chloride 105 (98-107) mmol/L Carbon Dioxide 26 (22-30) mmol/L BUN 8 L (9-20) mg/dL Creatinine 0.94 (0.66-1.25) mg/dL Glucose 94 (74-99) mg/dL Calcium 9.8 (8.4-10.2) mg/dL AST 25 (17-59) U/L ALT 17 (4-49) U/L Alkaline Phosphatase 43 (38-126) U/L Total Protein 7.1 (6.3-8.2) g/dL Albumin 4.1 (3.5-5.0) g/dL Current Medications Generic Name Dose Route Start Last Admin Trade Name Freq PRN Reason Stop Dose Admin Acetaminophen 650 mg 12/26/22 09:22 Acetaminophen Tab 325 Mg Tab PO Q6HR PRN Mild Pain or Fever > 100.5 Hydrocodone Bitart/Acetaminophen 1 each 12/26/22 09:17 Hydrocodone/Apap 10-325mg 1 Each Tab PO QID PRN Pain Aspirin 81 mg 12/27/22 09:00 Aspirin 81 Mg PO DAILY [facility] Atorvastatin Calcium 40 mg 12/26/22 21:00 Atorvastatin 40 Mg Tab PO HS [facility] Carvedilol 3.125 mg 12/26/22 09:30 12/26/22 10:33 Carvedilol 3.125 Mg Tab PO 3.125 mg BID-W/MEALS [facility] Administration Clopidogrel Bisulfate 75 mg 12/26/22 09:30 12/26/22 10:33 Clopidogrel 75 Mg Tab PO 75 mg DAILY [facility] Administration Hydroxyzine Pamoate 25 mg 12/26/22 09:30 12/26/22 10:33 Hydroxyzine Pamoate 25 Mg Cap PO 25 mg DAILY [facility] Administration Loratadine 10 mg 12/26/22 09:30 12/26/22 10:34 Loratadine 10 Mg Tab PO 10 mg DAILY [facility] Administration Naloxone HCl 0.2 mg 12/26/22 09:22 Naloxone 0.4 Mg/Ml 1 Ml Vial IVP Q2M PRN Opioid Reversal Ondansetron HCl 4 mg 12/26/22 09:22 Ondansetron 4 Mg/2 Ml Vial IVP Q8HR PRN Nausea And Vomiting Quetiapine Fumarate 200 mg 12/26/22 09:30 12/26/22 10:34 Quetiapine 200 Mg Tab PO 200 mg DAILY [facility] Administration Quetiapine Fumarate 400 mg 12/26/22 21:00 Quetiapine 400 Mg Tab PO HS [facility] Venlafaxine HCl 112.5 mg 12/26/22 09:30 Venlafaxine Hcl Er 37.5 Mg Cap PO DAILY [facility] Intake and Output 12/25/22 12/26/22 12/26/22 22:59 06:59 14:59 Other: Weight 72.575 kg 12/26/22 05:59 12/26/22 05:59
[2022-12-26] MEDS: SODIUM CHLORIDE 0.9% 1,000 ML IV SCH (13:32)
[2022-12-26] MEDS: PANTOPRAZOLE 40 MG/10 ML VIAL IVP SCH (13:32)
[2022-12-26] MEDS: HYDROcodone/APAP 10-325MG 1 EACH TAB PO PRN (17:51)
[2022-12-26] MEDS: ATORVASTATIN 40 MG TAB PO SCH (21:47)
[2022-12-26] MEDS: QUEtiapine 400 MG TAB PO SCH (21:48)
[2022-12-27] MEDS: SODIUM CHLORIDE 0.9% 1,000 ML IV SCH ×3 (02:28→16:57)
[2022-12-27] MEDS: carvediloL 3.125 MG TAB PO SCH ×2 (06:44→16:56)
[2022-12-27] MEDS: HYDROcodone/APAP 10-325MG 1 EACH TAB PO PRN ×3 (06:45→21:33)
[2022-12-27 07:39] LABS: HCT 34.2 % (39.0-53.0); HGB 11.2 gm/dL (13.0-17.5); MCH 32.1 pg (25.0-35.0); MCHC 32.7 g/dL (31.0-37.0); MCV 98.3 fL (80.0-100.0); Mean Platelet Volume 9.1; Platelet Count 150 k/uL (150-450); RBC 3.48 m/uL (4.30-5.90); RDW 13.6 % (11.5-15.5); WBC 3.4 k/uL (3.8-10.6)
[2022-12-27 07:53] LABS: African American GFR (CKD) >90 (>60 ml/min/1.73 sqM); Anion Gap 1 mmol/L; Blood Urea Nitrogen 16 mg/dL (9-20); Calcium 8.9 mg/dL (8.4-10.2); Carbon Dioxide 30 mmol/L (22-30); Chloride 105 mmol/L (98-107); Glucose 101 mg/dL (74-99); Lipase 131 U/L (23-300); Non-African American GFR(CKD) >90 (>60 ml/min/1.73 sqM); Sodium 136 mmol/L (137-145)
[2022-12-27 08:17] LABS: C Reactive Protein <0.5 mg/dL (<1.0)
[2022-12-27] MEDS: hydrOXYzine pamoate 25 MG CAP PO SCH (08:58)
[2022-12-27] MEDS: ASPIRIN 81 MG PO SCH (08:58)
[2022-12-27] MEDS: CLOPIDOGREL 75 MG TAB PO SCH (09:00)
[2022-12-27] MEDS ORDERED: ASPIRIN 325 MG TAB PO SCH (09:00)
[2022-12-27] MEDS: PANTOPRAZOLE 40 MG/10 ML VIAL IVP SCH (09:00)
[2022-12-27] MEDS: LORATADINE 10 MG TAB PO SCH (09:00)
[2022-12-27] MEDS: QUEtiapine 200 MG TAB PO SCH (09:25)
[2022-12-27] MEDS: VENLAFAXINE HCL ER 37.5 MG CAP PO SCH (09:25)
--- NOTE | 2022-12-27 13:18 | P.PN ---
Subjective Progress Note Date: 12/27/22 * 62-year-old gentleman with past medical history significant for COPD, hyperlipidemia, coronary artery disease with history of PCI, polysubstance use history of schizophrenia presents to the emergency department with repeat episode of chest pain. * Patient was recently admitted and discharged on 12/18/22 seen by cardiology for similar presentation. Patient states chest pain started earlier in the day and was midsternal. Chest pain was nonradiating no aggravating or relieving factors. Patient was complaining of shortness of breath and diaphoresis associated with chest pain * Workup in ER included a chest x-ray which was unremarkable, EKG obtained showed sinus rhythm QTC within normal limits no significant ST segment changes * Further workup in ER included CBC which showed WBC of 3.5 hemoglobin 11.9 platelet 170, PT INR 0.9 10.1, serum chemistry showed sodium of 142 potassium 4.1, BUN/creatinine and creatinine within normal limits * Initial troponin obtained within normal limits * Patient placed in observation with consultation from cardiology for recurrent chest pain. Patient was scheduled to see cardiology within a week from discharge on 12/18/22 * During the encounter patient does state his chest pain is associated with exertion, will request repeat assessment from cardiology * Most recent echocardiogram obtained in 12/17/2022 revealed mild left ventricular size and systolic function. Mild mitral and tricuspid regurgitation. * Cardiac catheterization history: June 2022 revealing mild in-stent restenosis of LAD in the midportion and normal left sided filling pressures. Medical management was recommended. * 12/27/22: Patient was seen by cardiology and cleared for discharge, patient continued to have chest discomfort, recommend general surgery assessment for EGD patient did complain of episode of hematemesis at home as well as an episode of blood in stool recently at home. Will need further assessment. At this time patient is on aspirin and Plavix to be continued continue to monitor H&H continue patient on Protonix Objective - Vital Signs Vital signs: Vital Signs Temp 97.6 F 12/27/22 07:20 Pulse 58 L 12/27/22 07:20 Resp 17 12/27/22 07:20 BP 100/67 12/27/22 07:20 Pulse Ox 93 L 12/27/22 09:30 FiO2 Intake & Output 12/26/22 12/27/22 12/27/22 18:59 06:59 18:59 Weight 71.809 kg Other: # Voids 2 - Exam PHYSICAL EXAMINATION: GENERAL: The patient is alert and oriented x3, not in any acute distress. Well developed, well nourished. HEENT: Pupils are round and equally reacting to light. EOMI. No scleral icterus. No conjunctival pallor. Normocephalic, atraumatic. No pharyngeal erythema. No thyromegaly. CARDIOVASCULAR: S1 and S2 present. No murmurs, rubs, or gallops. PULMONARY: Chest is clear to auscultation, no wheezing or crackles. ABDOMEN: Soft, nontender, nondistended, normoactive bowel sounds. No palpable organomegaly. MUSCULOSKELETAL: No joint swelling or deformity. EXTREMITIES: No cyanosis, clubbing, or pedal edema. NEUROLOGICAL: Gross neurological examination did not reveal any focal deficits. SKIN: No rashes. - Labs CBC & Chem 7: 12/27/22 07:03 12/27/22 07:03 Labs: Abnormal Lab Results - Last 24 Hours (Table) 12/27/22 12/27/22 Range/Units 07:03 07:03 WBC 3.4 L (3.8-10.6) k/uL RBC 3.48 L (4.30-5.90) m/uL Hgb 11.2 L (13.0-17.5) gm/dL Hct 34.2 L (39.0-53.0) % Sodium 136 L (137-145) mmol/L Glucose 101 H (74-99) mg/dL Assessment and Plan Assessment: Assessment and plan * Chest pain history of coronary artery disease rule out ACS * History of hematemesis with Retrosternal pain rule out gastritis * History of schizophrenia * Hypertension * Dyslipidemia * In regards to chest pain, seen by cardiology multiple troponins obtained negative/cleared for discharge per cardiology * Patient has persistent pain/anemia noted did complain of episode of hematemesis/continue IV Protonix general surgery consulted for EGD * Echocardiogram completed during last hospitalization one week ago showed preserved ejection fraction no wall motion abnormality noted. Patient was scheduled to follow-up with cardiology post discharge * In regards to hypertension continue patient on Coreg * In regards to history of schizophrenia continue home medications Seroquel, Effexor. QTC within normal limits checked on EKG done on admission * CODE STATUS is full code Time with Patient: Greater than 30
[2022-12-27] MEDS: QUEtiapine 400 MG TAB PO SCH (21:33)
[2022-12-27] MEDS: ATORVASTATIN 40 MG TAB PO SCH (21:33)
[2022-12-28] MEDS: PANTOPRAZOLE 40 MG TABLET PO SCH (06:16)
[2022-12-28] MEDS: carvediloL 3.125 MG TAB PO SCH ×2 (06:16→17:49)
[2022-12-28] MEDS: HYDROcodone/APAP 10-325MG 1 EACH TAB PO PRN ×3 (06:17→19:47)
[2022-12-28] MEDS: SODIUM CHLORIDE 0.9% 1,000 ML IV SCH ×2 (07:58→17:49)
[2022-12-28 08:45] LABS: HCT 33.1 % (39.6-50.0); HGB 10.6 g/dL (13.0-17.0); MCH 31.2 pg (27.0-32.0); MCV 97.4 FL (80.0-97.0); Mean Platelet Volume 11.1 FL (9.5-12.2); NRBC Per 100 WBC 0 X 10*3/uL (0.00-0.01); Platelet Count 143 X 10*3/uL (140-440); RDW 14.6 % (11.5-14.5); WBC 3.38 X 10*3/uL (4.50-10.00)
[2022-12-28 08:50] LABS: BUN/Creat Ratio 14.86 Ratio (12.00-20.00); Blood Urea Nitrogen 10.4 mg/dL (9.0-27.0); Calcium 9.2 mg/dL (8.7-10.3); Carbon Dioxide 27.1 mmol/L (21.6-31.8); Chloride 105 mmol/L (96-109); Glucose 97 mg/dL (70-110); Potassium 4.1 mmol/L (3.5-5.5); Sodium 139 mmol/L (135-145)
[2022-12-28] MEDS: hydrOXYzine pamoate 25 MG CAP PO SCH (09:22)
[2022-12-28] MEDS: VENLAFAXINE HCL ER 37.5 MG CAP PO SCH (09:22)
[2022-12-28] MEDS: ASPIRIN 81 MG PO SCH (09:22)
[2022-12-28] MEDS: QUEtiapine 200 MG TAB PO SCH (09:22)
[2022-12-28] MEDS: LORATADINE 10 MG TAB PO SCH (09:23)
[2022-12-28] MEDS: CLOPIDOGREL 75 MG TAB PO SCH (09:23)
[2022-12-28] MEDS ORDERED: BENZOCAINE/MENTHOL LOZENG 1 EACH LOZENGE MUCOUS MEM PRN (09:25)
--- NOTE | 2022-12-28 10:11 | P.PN ---
Progress Note - Text Progress Note Date: 12/28/22 Patient Cece stable. He is sleeping comfortably in his bed. On exam vital signs appear stable. Abdomen soft. Patient scheduled for EGD with Dr. Stapleton the morning.
--- NOTE | 2022-12-28 13:37 | P.PN ---
Subjective Progress Note Date: 12/28/22 * 62-year-old gentleman with past medical history significant for COPD, hyperlipidemia, coronary artery disease with history of PCI, polysubstance use history of schizophrenia presents to the emergency department with repeat episode of chest pain. * Patient was recently admitted and discharged on 12/18/22 seen by cardiology for similar presentation. Patient states chest pain started earlier in the day and was midsternal. Chest pain was nonradiating no aggravating or relieving factors. Patient was complaining of shortness of breath and diaphoresis associated with chest pain * Workup in ER included a chest x-ray which was unremarkable, EKG obtained showed sinus rhythm QTC within normal limits no significant ST segment changes * Further workup in ER included CBC which showed WBC of 3.5 hemoglobin 11.9 platelet 170, PT INR 0.9 10.1, serum chemistry showed sodium of 142 potassium 4.1, BUN/creatinine and creatinine within normal limits * Initial troponin obtained within normal limits * Patient placed in observation with consultation from cardiology for recurrent chest pain. Patient was scheduled to see cardiology within a week from discharge on 12/18/22 * During the encounter patient does state his chest pain is associated with exertion, will request repeat assessment from cardiology * Most recent echocardiogram obtained in 12/17/2022 revealed mild left ventricular size and systolic function. Mild mitral and tricuspid regurgitation. * Cardiac catheterization history: June 2022 revealing mild in-stent restenosis of LAD in the midportion and normal left sided filling pressures. Medical management was recommended. * 12/27/22: Patient was seen by cardiology and cleared for discharge, patient continued to have chest discomfort, recommend general surgery assessment for EGD patient did complain of episode of hematemesis at home as well as an episode of blood in stool recently at home. Will need further assessment. At this time patient is on aspirin and Plavix to be continued continue to monitor H&H continue patient on Protonix * 12/28: Patient seen and evaluated bedside, hemoglobin remained stable, recommended general surgery to follow-up patient will need EGD to be scheduled with general surgery on 12/29. Hemoglobin 10.6 troponin remained negative, lipase 131, CT abdomen pelvis ordered Objective - Vital Signs Vital signs: Vital Signs Temp 97.7 F 12/28/22 02:00 Pulse 59 L 12/28/22 07:05 Resp 16 12/28/22 07:05 BP 104/69 12/28/22 07:05 Pulse Ox 99 12/28/22 07:05 FiO2 Intake & Output 12/27/22 12/28/22 12/28/22 18:59 06:59 18:59 Weight 74.389 kg Other: Voiding Method Toilet # Voids 1 2 - Exam PHYSICAL EXAMINATION: GENERAL: The patient is alert and oriented x3, not in any acute distress. Well developed, well nourished. HEENT: Pupils are round and equally reacting to light. EOMI. CARDIOVASCULAR: S1 and S2 present. No murmurs, rubs, or gallops. PULMONARY: Chest is clear to auscultation, no wheezing or crackles. ABDOMEN: Soft, epigastric pain, no guarding no rigidity. MUSCULOSKELETAL: No joint swelling or deformity. EXTREMITIES: No cyanosis, clubbing, or pedal edema. NEUROLOGICAL: Gross neurological examination did not reveal any focal deficits. SKIN: No rashes. - Labs CBC & Chem 7: 12/28/22 06:04 12/28/22 06:04 Labs: Abnormal Lab Results - Last 24 Hours (Table) 12/28/22 Range/Units 06:04 WBC 3.38 L (4.50-10.00) X 10*3/uL RBC 3.40 L (4.40-5.60) X 10*6/uL Hgb 10.6 L (13.0-17.0) g/dL Hct 33.1 L (39.6-50.0) % MCV 97.4 H (80.0-97.0) FL RDW 14.6 H (11.5-14.5) % Assessment and Plan Assessment: Assessment and plan * Chest pain history of coronary artery disease rule out ACS * History of hematemesis with Retrosternal pain rule out gastritis * History of schizophrenia * Hypertension * Dyslipidemia * In regards to chest pain, seen by cardiology multiple troponins obtained negative/cleared for discharge per cardiology * Patient has persistent pain/anemia noted did complain of episode of hematemesis/continue IV Protonix general surgery consulted for EGD, CT abdomen pelvis ordered * Echocardiogram completed during last hospitalization one week ago showed p reserved ejection fraction no wall motion abnormality noted. Patient was scheduled to follow-up with cardiology post discharge * In regards to hypertension continue patient on Coreg * In regards to history of schizophrenia continue home medications Seroquel, Effexor. QTC within normal limits checked on EKG done on admission * CODE STATUS is full code Time with Patient: Greater than 30
[2022-12-28] MEDS: IOPAMIDOL CONTRAST (ORAL USE) VIAL PO PRN ×2 (13:48→14:49)
--- NOTE | 2022-12-28 17:53 | CT ---
EXAMINATION TYPE: CT abdomen pelvis w con DATE OF EXAM: 12/28/2022 COMPARISON: 08/09/2020 HISTORY: abdominal pain CT DLP: 785.7 mGycm Automated exposure control for dose reduction was used. TECHNIQUE: Helical acquisition of images was performed from the lung bases through the pelvis. CONTRAST: Performed with Oral Contrast and with IV Contrast, patient injected with 100 mL of Isovue 370. FINDINGS: There are mild coarse interstitial changes in the right lung base. There is mild groundglass density bilaterally which could represent atelectasis. There are postsurgical changes at the GE junction. There are multiple low-density lesions within the liver which were seen previously and most likely re present cysts or hemangiomata. There is no focal mass or organomegaly involving the pancreas spleen o r adrenal glands. The gallbladder is normal without distention, gallstones, wall thickening or pericholecystic fluid. There is a 3.4 cm left renal mass which is identified on the prior study as a possible hemorrhagic cy st but only measured 2.2 cm at that time. This is suspicious for neoplasm. There is no hydronephrosis bilaterally. There is no right renal mass. Caliber the abdominal aorta is normal is no retroperitoneal adenopathy or hemorrhage. The colon is markedly distended with feces and air particularly on the right. There is no small bowel obstruction There is no free intraperitoneal air or fluid. There is prostatic hypertrophy but there is no pelvic adenopathy or mass. No focal lytic or blastic osseous lesions are seen. IMPRESSION: 1. Coarse interstitial scarring in the right lung base. 2. Left renal mass which has increased in the interval from 2.1 cm to 3.4 cm and is stenosis or neopl asm. MRI of the kidneys would be useful for further evaluation. 3. Distended colon with air and feces but no small bowel obstruction. 4. Prostatic hypertrophy. 5 multiple low-density lesions within the liver most likely representing hepatic cysts or hemangiomat a.
[2022-12-28] MEDS: ATORVASTATIN 40 MG TAB PO SCH (19:29)
[2022-12-28] MEDS: QUEtiapine 400 MG TAB PO SCH (19:29)
[2022-12-29] MEDS: PANTOPRAZOLE 40 MG TABLET PO SCH (06:10)
[2022-12-29] MEDS: carvediloL 3.125 MG TAB PO SCH ×2 (06:10→16:56)
[2022-12-29] MEDS: HYDROcodone/APAP 10-325MG 1 EACH TAB PO PRN (08:02)
[2022-12-29 11:07] LABS: HGB 12.1 g/dL (13.0-17.0); MCH 30.9 pg (27.0-32.0); MCV 99.5 FL (80.0-97.0); Mean Platelet Volume 11.9 FL (9.5-12.2); NRBC Per 100 WBC 0 X 10*3/uL (0.00-0.01); Platelet Count 169 X 10*3/uL (140-440); RBC 3.92 X 10*6/uL (4.40-5.60)
[2022-12-29] MEDS: LORATADINE 10 MG TAB PO SCH (12:30)
[2022-12-29] MEDS: VENLAFAXINE HCL ER 37.5 MG CAP PO SCH (12:30)
[2022-12-29] MEDS: ASPIRIN 81 MG PO SCH (12:31)
[2022-12-29] MEDS: QUEtiapine 200 MG TAB PO SCH (12:31)
[2022-12-29] MEDS: hydrOXYzine pamoate 25 MG CAP PO SCH (12:31)
[2022-12-29] MEDS: CLOPIDOGREL 75 MG TAB PO SCH (12:33)
--- NOTE | 2022-12-29 12:39 | P.PN ---
Subjective Progress Note Date: 12/29/22 * 62-year-old gentleman with past medical history significant for COPD, hyperlipidemia, coronary artery disease with history of PCI, polysubstance use history of schizophrenia presents to the emergency department with repeat episode of chest pain. * Patient was recently admitted and discharged on 12/18/22 seen by cardiology for similar presentation. Patient states chest pain started earlier in the day and was midsternal. Chest pain was nonradiating no aggravating or relieving factors. Patient was complaining of shortness of breath and diaphoresis associated with chest pain * Workup in ER included a chest x-ray which was unremarkable, EKG obtained showed sinus rhythm QTC within normal limits no significant ST segment changes * Further workup in ER included CBC which showed WBC of 3.5 hemoglobin 11.9 platelet 170, PT INR 0.9 10.1, serum chemistry showed sodium of 142 potassium 4.1, BUN/creatinine and creatinine within normal limits * Initial troponin obtained within normal limits * Patient placed in observation with consultation from cardiology for recurrent chest pain. Patient was scheduled to see cardiology within a week from discharge on 12/18/22 * During the encounter patient does state his chest pain is associated with exertion, will request repeat assessment from cardiology * Most recent echocardiogram obtained in 12/17/2022 revealed mild left ventricular size and systolic function. Mild mitral and tricuspid regurgitation. * Cardiac catheterization history: June 2022 revealing mild in-stent restenosis of LAD in the midportion and normal left sided filling pressures. Medical management was recommended. * 12/27/22: Patient was seen by cardiology and cleared for discharge, patient continued to have chest discomfort, recommend general surgery assessment for EGD patient did complain of episode of hematemesis at home as well as an episode of blood in stool recently at home. Will need further assessment. At this time patient is on aspirin and Plavix to be continued continue to monitor H&H continue patient on Protonix * 12/28: Patient seen and evaluated bedside, hemoglobin remained stable, recommended general surgery to follow-up patient will need EGD to be scheduled with general surgery on 12/29. Hemoglobin 10.6 troponin remained negative, lipase 131, CT abdomen pelvis ordered * 12/29: Patient seen and evaluated bedside, retrosternal abdominal pain and chest pain has improved, waiting for EGD, CT abdomen and pelvis reviewed, noted to have left renal mass 3.4 cm, MRI kidney ordered: Distention noted low-density lesion and liver noted as well. Objective - Vital Signs Vital signs: Vital Signs Temp 98.1 F 12/29/22 07:18 Pulse 59 L 12/29/22 07:18 Resp 17 12/29/22 07:18 BP 129/87 12/29/22 07:18 Pulse Ox 96 12/29/22 08:55 FiO2 Intake & Output 12/28/22 12/29/22 12/29/22 18:59 06:59 18:59 Intake Total 1000 Balance 1000 Weight 74.3 kg Intake: IV 1000 Sodium Chloride 0.9% 1, 1000 000 ml @ 100 mls/hr IV . Q10H [facility] Rx#:[id number] Other: Voiding Method Toilet Toilet # Voids 5 2 - Exam PHYSICAL EXAMINATION: GENERAL: The patient is alert and oriented x3, not in any acute distress. Well developed, well nourished. HEENT: Pupils are round and equally reacting to light. EOMI. CARDIOVASCULAR: S1 and S2 present. No murmurs, rubs, or gallops. PULMONARY: Chest is clear to auscultation, no wheezing or crackles. ABDOMEN: Soft, epigastric pain, no guarding no rigidity. MUSCULOSKELETAL: No joint swelling or deformity. EXTREMITIES: No cyanosis, clubbing, or pedal edema. NEUROLOGICAL: Gross neurological examination did not reveal any focal deficits. SKIN: No rashes. - Labs CBC & Chem 7: 12/29/22 07:11 12/28/22 06:04 Labs: Abnormal Lab Results - Last 24 Hours (Table) 12/29/22 Range/Units 07:11 WBC 4.00 L (4.50-10.00) X 10*3/uL RBC 3.92 L (4.40-5.60) X 10*6/uL Hgb 12.1 L (13.0-17.0) g/dL Hct 39.0 L (39.6-50.0) % MCV 99.5 H (80.0-97.0) FL MCHC 31.0 L (32.0-37.0) g/dL Assessment and Plan Assessment: Assessment and plan * Chest pain history of coronary artery disease rule out ACS * History of hematemesis with Retrosternal pain rule out gastritis * Left renal mass * History of schizophrenia * Hypertension * Dyslipidemia * In regards to chest pain, seen by cardiology multiple troponins obtained negative/cleared for discharge per cardiology. Patient continues to have chest pain/questioning discharge * Patient has persistent pain/anemia noted complain of episode of hematemesi s/continue IV Protonix general surgery consulted for EGD, CT abdomen pelvis done * In regards to left renal mass, urology consulted, MRI kidney ordered * Echocardiogram completed during last hospitalization one week ago showed preserved ejection fraction no wall motion abnormality noted. Patient was scheduled to follow-up with cardiology post discharge * In regards to hypertension continue patient on Coreg * In regards to history of schizophrenia continue home medications Seroquel, Effexor. QTC within normal limits checked on EKG done on admission * CODE STATUS is full code Time with Patient: Greater than 30
[2022-12-29] MEDS: SODIUM CHLORIDE 0.9% 1,000 ML IV SCH ×2 (13:43→21:36)
--- NOTE | 2022-12-29 13:55 | P.PN ---
Subjective Progress Note Date: 12/29/22 CHIEF COMPLAINT: Epigastric abdominal HISTORY OF PRESENT ILLNESS: Patient does complain of epigastric abdominal pain. He had episode of vomiting yesterday. Patient has been cleared by cardiology for discharge. Computed tomography scan abdomen and pelvis had reported left renal mass which has increased in the interval from 2.1-3.4 cm and MRI of the kidneys recommended. Distended colon with air and feces but no small bowel obstruction. Prostatic hypertrophy. Multiple low-density lesions within the liver most likely representing hepatic cysts or hemangiomata. Afebrile. Hemoglobin is up from 10.6-12.1 PHYSICAL EXAM: VITAL SIGNS: Reviewed. GENERAL: Well-developed in no acute distress. ABDOMEN: Soft. Nondistended. Epigastric tenderness with palpation NEUROLOGIC: Alert and oriented. Cranial nerves II through XII grossly intact. ASSESSMENT: 1. Epigastric abdominal pain 2. Chest pain evaluated by cardiology 3. Left renal mass followed by urology. PLAN: -Patient scheduled for EGD on Thursday with Dr. Tavera -Hold plavix -ok for Full liquids Physician Crown Wheel [employer] note has been reviewed by physician. Signing provider agrees with the documented findings, assessment, and plan of care. Please see additional documentation below CHIEF COMPLAINT: Abdominal pain HISTORY OF PRESENT ILLNESS: The patient is a 62 year old male admitted with atypical chest pain including complaints of epigastric abdominal pain. As his pain continued to progress and cardiology assessment was unremarkable, Gen. surgery was consulted for further assessment of his abdominal pain. Has chronic nausea. Reports reflux disease. No hematemesis. He is on Plavix risk for gastritis. Reports moderate to severe intensity of epigastric abdominal pain for over 1 week. PAST MEDICAL HISTORY: See list and reviewed PAST SURGICAL HISTORY: See list and reviewed MEDICATIONS: See list and reviewed ALLERGIES: See list and reviewed SOCIAL HISTORY: See list and reviewed FAMILY HISTORY: See list and reviewed REVIEW OF ORGAN SYSTEMS: CONSTITUTIONAL: No fevers or chills. No recent weight loss. EYES: Denies any trouble with vision. No glasses. HEENT: No difficulties with hearing. No nosebleeds. No difficulty swallowing. RESPIRATORY: Has tobacco abuse disorder. CARDIOVASCULAR: Admission for atypical chest pain. Has hypertensive heart disease. Has hyperlipidemia. Past history of myocardial infarction. Past cardiac catheterization with stent placement, on antiplatelet therapy. GASTROINTESTINAL: Has gastroesophageal reflux disease. History of hiatal hernia repair. GENITOURINARY: Denies any blood in urine or increased urinary frequency. NEUROLOGICAL: Chronic pain syndrome. MUSCULOSKELETAL: Denies any back pain, stiffness or joint arthritis. SKIN: No current skin cancer. No rash. PSYCHIATRIC: Has schizophrenia. Has depressive disorder. ENDOCRINE: Denies current thyroid disorders. Denies any blood sugar glucose intolerance. HEME/LYMPHATIC: Denies any lumps and bumps around the neck. No recent deep venous thrombosis. ALLERGY/IMMUNOLOGY: No immunoglobulin therapy. No immune deficiencies. BREAST: Denies current breast lumps, pain or nipple discharge. PHYSICAL EXAM: VITALS: Reviewed CONSTITUTIONAL: Well developed and in no acute distress. EYES: Conjuctivae without sclera icterus. Extraocular movements grossly intact. HEAD, EARS, NOSE, THROAT: Moist buccal mucosa. Head is atraumatic, normocephalic. Hears conversational speech. No nasal drainage. NECK: Supple. No JV distention. No thyroidomegaly. RESPIRATORY: Non-labored respirations and equal bilateral excursions. No gross wheezes. CARDIOVASCULAR: Palpable 2+ radial pulses. ABDOMEN: Tender epigastrium. No peritonitis. LYMPH: No neck lymphadenopathy. MUSCULOSKELETAL: No clubbing cyanosis or edema SKIN: Warm and well perfused with good skin turgor. NEUROLOGIC: Cranial nerves II through XII grossly intact. No focal or lateralizing signs. PSYCH: Flat affect. Alert and oriented to person, place and time. CLINCAL LABS: Reviewed. WBC low at 4.0, leukopenia. Hemoglobin low at 12.0, anemia. LFTs within normal limits. IMAGING: Independently reviewed. CT of the abdomen and pelvis pending reviewed demonstrates postsurgical changes at hiatus consistent with hiatal hernia re pair. Gallbladder present. Moderate gaseous distention involving the ascending colon and cecum. Gaseous distention of the descending colon and sigmoid colon. No free air. No bowel obstruction. This is my independent interpretation. Mass along the left lower pole of the kidney. Benign cyst along the liver identified. RADIOLOGY: Report reviewed. CT of the abdomen and pelvis report demonstrated a left renal mass 3.4 cm. Prostatic hypertrophy. Lesions along liver consistent with hemangioma versus hepatic cysts. EKG: Left ventricular hypertrophy ASSESSMENT: 1. Abdominal pain, epigastric 2. Atypical chest pain 3. Gastroesophageal reflux disease, history of hiatal hernia repair 4. Chronic antiplatelet therapy 5. Gastritis 6. Anemia 7. Leukopenia 8. Left renal mass 9. Hepatic cysts PLAN: 1. He has been taking Plavix and presents with atypical chest pain for risk of bleeding gastritis in the presence of anemia. May benefit from upper endoscopy. 2. Hold antiplatelet therapy. 3. He is at elevated risk for upper endoscopy and biopsies due to Plavix and ibuprofen use including bleeding ADVANCE DIRECTIVE: CODE status in chart Thank you for this kind consultation. Home Medications Medication Instructions Recorded Confirmed Cetirizine HCl [Zyrtec] 10 mg PO DAILY 12/17/22 12/26/22 HYDROcodone/APAP 10-325MG [[place] 1 tab PO QID 12/17/22 12/26/22 10-325] Ibuprofen [Motrin] 800 mg PO Q8H PRN 12/17/22 12/26/22 QUEtiapine [SEROquel] 200 mg PO DAILY 12/17/22 12/26/22 Venlafaxine HCl ER [Effexor XR] 112.5 mg PO DAILY 12/17/22 12/26/22 carvediloL [Coreg] 3.125 mg PO BID 12/17/22 12/26/22 hydrOXYzine pamoate [Vistaril] 25 mg PO DAILY 12/17/22 12/26/22 Naloxone HCl [Narcan] 4 mg NASAL DIRECTED PRN 12/26/22 12/26/22 Previous Rx's Medication Instructions Recorded Clopidogrel [Plavix] 75 mg PO DAILY 30 Days #30 tablet 07/24/22 QUEtiapine [SEROquel] 400 mg PO HS 30 Days #30 tab 07/24/22 Aspirin 81 mg PO DAILY #30 tab 12/18/22 Atorvastatin [Lipitor] 40 mg PO HS #30 tab 12/18/22 Allergies Allergy/AdvReac Type Severity Reaction Status Date / Time blueberry Allergy Rash/Hives Verified 12/26/22 07:46 nitroglycerin Allergy Swelling Verified 12/26/22 07:46 Past Medical History Past Medical History: Coronary Artery Disease (CAD), Chest Pain / Angina, Hyperlipidemia, Myocardial Infarction (NH), Osteoarthritis (OA) Additional Past Medical History / Comment(s): arthritis in back and bilateral knees,hx hiatal hernia Last Myocardial Infarction Date:: 2004 History of Any Multi-Drug Resistant Organisms: None Reported Past Surgical History: Bowel Resection, Heart Catheterization With Stent Additional Past Surgical History / Comment(s): Cardiac stents x 3, bowel surgery for pinpoint hole in bowel, L knee arthroscopy, colonoscopy/benign polypectomies,hiatal hernia repair Past Anesthesia/Blood Transfusion Reactions: No Reported Reaction Date of Last Stent Placement:: 2013 Past Psychological History: Bipolar, Depression, PTSD, Schizophrenia Smoking Status: Current every day smoker Past Alcohol Use History: Occasional Past Drug Use History: Cocaine, IV Drug Use, Marijuana, Opiates, Prescription Drug Abuse - Past Family History Father Family Medical History: Respiratory Disorder Additional Family Medical History / Comment(s): Father at age 64 from Black lung disease Mother Family Medical History: Hypertension, Myocardial Infarction (NH) Additional Family Medical History / Comment(s): Mother of an NH at 78yrs old. Brother(s) Family Medical History: Myocardial Infarction (NH) Additional Family Medical History / Comment(s): Patient has 10 brothers and 2 from myocardial infarction and had history of alcoholism. Sister(s) Family Medical History: Hypertension, Myocardial Infarction (NH) Additional Family Medical History / Comment(s): He has 7 sisters that are alive with no major medical problems. He has one son that has and one daughter that is alive and okay. Objective - Vital Signs Vital signs: Vital Signs Temp 98.1 F 12/29/22 07:18 Pulse 59 L 12/29/22 07:18 Resp 17 12/29/22 07:18 BP 129/87 12/29/22 07:18 Pulse Ox 96 12/29/22 08:55 FiO2 Intake & Output 12/28/22 12/29/22 12/29/22 18:59 06:59 18:59 Intake Total 1000 Balance 1000 Weight 74.3 kg Intake: IV 1000 Sodium Chloride 0.9% 1, 1000 000 ml @ 100 mls/hr IV . Q10H [facility] Rx#:[id number] Other: Voiding Method Toilet Toilet # Voids 5 2 - Labs CBC & Chem 7: 01/01/23 07:55 01/01/23 07:55 Labs: Abnormal Lab Results - Last 24 Hours (Table) 12/29/22 Range/Units 07:11 WBC 4.00 L (4.50-10.00) X 10*3/uL RBC 3.92 L (4.40-5.60) X 10*6/uL Hgb 12.1 L (13.0-17.0) g/dL Hct 39.0 L (39.6-50.0) % MCV 99.5 H (80.0-97.0) FL MCHC 31.0 L (32.0-37.0) g/dL
[2022-12-29] MEDS: QUEtiapine 400 MG TAB PO SCH (21:36)
[2022-12-29] MEDS: ATORVASTATIN 40 MG TAB PO SCH (21:36)
[2022-12-30] MEDS: HYDROcodone/APAP 10-325MG 1 EACH TAB PO PRN ×4 (01:44→22:43)
[2022-12-30] MEDS: SODIUM CHLORIDE 0.9% 1,000 ML IV SCH ×2 (05:59→16:41)
[2022-12-30] MEDS: PANTOPRAZOLE 40 MG TABLET PO SCH (06:00)
[2022-12-30] MEDS: carvediloL 3.125 MG TAB PO SCH ×2 (06:00→16:41)
[2022-12-30] MEDS: hydrOXYzine pamoate 25 MG CAP PO SCH (08:47)
[2022-12-30] MEDS: ASPIRIN 81 MG PO SCH (08:47)
[2022-12-30] MEDS: LORATADINE 10 MG TAB PO SCH (08:48)
[2022-12-30] MEDS: QUEtiapine 200 MG TAB PO SCH (08:48)
[2022-12-30] MEDS: VENLAFAXINE HCL ER 37.5 MG CAP PO SCH (08:48)
[2022-12-30 09:02] LABS: HCT 33.5 % (39.6-50.0); HGB 10.8 g/dL (13.0-17.0); MCH 31.3 pg (27.0-32.0); MCHC 32.2 g/dL (32.0-37.0); MCV 97.1 FL (80.0-97.0); Mean Platelet Volume 11.3 FL (9.5-12.2); NRBC Per 100 WBC 0 X 10*3/uL (0.00-0.01); Platelet Count 152 X 10*3/uL (140-440); RBC 3.45 X 10*6/uL (4.40-5.60); RDW 14.3 % (11.5-14.5); WBC 3.98 X 10*3/uL (4.50-10.00)
[2022-12-30 09:35] LABS: Blood Urea Nitrogen 6.3 mg/dL (9.0-27.0); Calcium 9.2 mg/dL (8.7-10.3); Carbon Dioxide 26.3 mmol/L (21.6-31.8); Chloride 108 mmol/L (96-109); Glucose 117 mg/dL (70-110); Potassium 3.9 mmol/L (3.5-5.5); Sodium 142 mmol/L (135-145)
--- NOTE | 2022-12-30 11:30 | P.PN ---
Subjective Progress Note Date: 12/30/22 * 62-year-old gentleman with past medical history significant for COPD, hyperlipidemia, coronary artery disease with history of PCI, polysubstance use history of schizophrenia presents to the emergency department with repeat episode of chest pain. * Patient was recently admitted and discharged on 12/18/22 seen by cardiology for similar presentation. Patient states chest pain started earlier in the day and was midsternal. Chest pain was nonradiating no aggravating or relieving factors. Patient was complaining of shortness of breath and diaphoresis associated with chest pain * Workup in ER included a chest x-ray which was unremarkable, EKG obtained showed sinus rhythm QTC within normal limits no significant ST segment changes * Further workup in ER included CBC which showed WBC of 3.5 hemoglobin 11.9 platelet 170, PT INR 0.9 10.1, serum chemistry showed sodium of 142 potassium 4.1, BUN/creatinine and creatinine within normal limits * Initial troponin obtained within normal limits * Patient placed in observation with consultation from cardiology for recurrent chest pain. Patient was scheduled to see cardiology within a week from discharge on 12/18/22 * During the encounter patient does state his chest pain is associated with exertion, will request repeat assessment from cardiology * Most recent echocardiogram obtained in 12/17/2022 revealed mild left ventricular size and systolic function. Mild mitral and tricuspid regurgitation. * Cardiac catheterization history: June 2022 revealing mild in-stent restenosis of LAD in the midportion and normal left sided filling pressures. Medical management was recommended. * 12/27/22: Patient was seen by cardiology and cleared for discharge, patient continued to have chest discomfort, recommend general surgery assessment for EGD patient did complain of episode of hematemesis at home as well as an episode of blood in stool recently at home. Will need further assessment. At this time patient is on aspirin and Plavix to be continued continue to monitor H&H continue patient on Protonix * 12/28: Patient seen and evaluated bedside, hemoglobin remained stable, recommended general surgery to follow-up patient will need EGD to be scheduled with general surgery on 12/29. Hemoglobin 10.6 troponin remained negative, lipase 131, CT abdomen pelvis ordered * 12/29: Patient seen and evaluated bedside, retrosternal abdominal pain and chest pain has improved, waiting for EGD, CT abdomen and pelvis reviewed, noted to have left renal mass 3.4 cm, MRI kidney ordered: Distention noted low-density lesion and liver noted as well. * 12/30/2022: Patient seen and evaluated bedside, patient continued to complain of epigastric abdominal pain, minimal oral intake, continued to have postprandial nausea requiring IV Zofran every 8 hours when necessary. Patient stating he is not ready for discharge and panic 2. The discharge of discharge today. Urology consulted patient did complain of trace hematuria will get urine analysis general surgery team on consult as well and will plan EGD on 12/31/22 considering patient had intractable nausea and persistent abdominal pain suspect an ulcer possible etiology hence we will continue to monitor inpatient. Patient also has bicytopenia that needs to be monitored we will consult oncology for the evaluation Objective - Vital Signs Vital signs: Vital Signs Temp 97.4 F L 12/30/22 07:53 Pulse 77 12/30/22 07:53 Resp 19 12/30/22 07:53 BP 121/81 12/30/22 07:53 Pulse Ox 97 12/30/22 07:53 FiO2 Intake & Output 12/29/22 12/30/22 12/30/22 18:59 06:59 18:59 Weight 72.3 kg Other: Voiding Method Toilet Toilet # Voids 4 1 # Bowel Movements 1 - Exam PHYSICAL EXAMINATION: GENERAL: The patient is alert and oriented x3, not in any acute distress. Well developed, well nourished. HEENT: Pupils are round and equally reacting to light. EOMI. CARDIOVASCULAR: S1 and S2 present. No murmurs, rubs, or gallops. PULMONARY: Chest is clear to auscultation, no wheezing or crackles. ABDOMEN: Soft, epigastric pain, no guarding no rigidity. MUSCULOSKELETAL: No joint swelling or deformity. EXTREMITIES: No cyanosis, clubbing, or pedal edema. NEUROLOGICAL: Gross neurological examination did not reveal any focal deficits. SKIN: No rashes. - Labs CBC & Chem 7: 12/30/22 05:25 12/30/22 05:25 Labs: Abnormal Lab Results - Last 24 Hours (Table) 12/30/22 12/30/22 Range/Units 05:25 05:25 WBC 3.98 L (4.50-10.00) X 10*3/uL RBC 3.45 L (4.40-5.60) X 10*6/uL Hgb 10.8 L (13.0-17.0) g/dL Hct 33.5 L (39.6-50.0) % MCV 97.1 H (80.0-97.0) FL BUN 6.3 L (9.0-27.0) mg/dL BUN/Creatinine Ratio 9.00 L (12.00-20.00) Ratio Glucose 117 H (70-110) mg/dL Assessment and Plan Assessment: Assessment and plan * Chest pain history of coronary artery disease rule out ACS * History of hematemesis with Retrosternal pain rule out gastritis * Left renal mass * Bicytopenia * History of schizophrenia * Hypertension * Dyslipidemia * In regards to chest pain, seen by cardiology multiple troponins obtained negative/cleared for discharge per cardiology. Patient continues to have chest pain/questioning and planning to appear discharge * Patient has persistent pain/anemia noted complain of episode of hematemesis/continue IV Protonix general surgery consulted for EGD, CT abdomen pelvis done, left renal mass noted urology consulted * In regards to left renal mass, urology consulted, MRI kidney ordered, urinalysis ordered * Echocardiogram completed during last hospitalization one week ago showed preserved ejection fraction no wall motion abnormality noted. Patient was scheduled to follow-up with cardiology post discharge * In regards to hypertension continue patient on Coreg * In regards to history of schizophrenia continue home medications Seroquel, Effexor. QTC within normal limits checked on EKG done on admission * In regards to bicytopenia and renal mass we'll consult oncology for evaluation Time with Patient: Greater than 30
--- NOTE | 2022-12-30 14:23 | P.PN ---
Subjective Progress Note Date: 12/30/22 CHIEF COMPLAINT: Epigastric abdominal HISTORY OF PRESENT ILLNESS: Patient continues to complain of epigastric abdominal pain. He reports he hasn't vomited in 2 days. He does complain of nausea. Per nursing staff patient has been eating greater than 50% of his meals. Afebrile. WBC 3.98 Hgb 10.8. Patient has been changed to inpatient status. PHYSICAL EXAM: VITAL SIGNS: Reviewed. GENERAL: Well-developed in no acute distress. ABDOMEN: Soft. Nondistended. Epigastric tenderness with palpation NEUROLOGIC: Alert and oriented. Cranial nerves II through XII grossly intact. ASSESSMENT: 1. Epigastric abdominal pain 2. Chest pain evaluated by cardiology 3. Left renal mass followed by urology. Scheduled for MRI Kidney PLAN: -Patient scheduled for EGD on 12/31/[address] Tavera -NPO after midnight -Hold plavix -Continue Protonix Physician Proposal Director note has been reviewed by physician. Signing provider agrees with the documented findings, assessment, and plan of care. Please see additional documentation below CHIEF COMPLAINT: Abdominal pain HISTORY OF PRESENT ILLNESS: The patient is a 62 year old male admitted with atypical chest pain including complaints of epigastric abdominal pain. He was on Plavix including ibuprofen patient still complains of moderate to severe abdominal pain. He continues to complain of nausea. REVIEW OF ORGAN SYSTEMS: CONSTITUTIONAL: No fevers or chills. No recent weight loss. CARDIOVASCULAR: Admission for atypical chest pain. Has hypertensive heart disease. Has hyperlipidemia. Past history of myocardial infarction. Past cardiac catheterization with stent placement, on antiplatelet therapy. GASTROINTESTINAL: Has gastroesophageal reflux disease. History of hiatal hernia repair. PHYSICAL EXAM: VITALS: Reviewed CONSTITUTIONAL: Well developed and in no acute distress. EYES: Conjuctivae without sclera icterus. Extraocular movements grossly intact. HEAD, EARS, NOSE, THROAT: Moist buccal mucosa. Head is atraumatic, normocephalic. Hears conversational speech. No nasal drainage. RESPIRATORY: Non-labored respirations and equal bilateral excursions. No gross wheezes. CARDIOVASCULAR: Palpable 2+ radial pulses. ABDOMEN: Tender epigastrium. MUSCULOSKELETAL: No clubbing cyanosis or edema SKIN: Warm and well perfused with good skin turgor. NEUROLOGIC: Cranial nerves II through XII grossly intact. No focal or lateralizing signs. PSYCH: Flat affect. Alert and oriented to person, place and time. CLINCAL LABS: Reviewed. Hemoglobin drop 12.8-10.1, anemia ASSESSMENT: 1. Abdominal pain, epigastric 2. Atypical chest pain 3. Gastroesophageal reflux disease, history of hiatal hernia repair 4. Chronic antiplatelet therapy 5. Gastritis 6. Anemia 7. Leukopenia 8. Left renal mass 9. Hepatic cysts 10. Acute blood loss anemia of unclear source PLAN: 1. He has decline in his hemoglobin of unclear source with pre-existing exposure of Plavix and ibuprofen. Will benefit from upper endoscopy for gastric and duodenal ulcers assessment 2. Carafate and omeprazole in the interim advised 3. May benefit from additional diagnostic studies up upper endoscopy unremarkable. Objective - Vital Signs Vital signs: Vital Signs Temp 97.4 F L 12/30/22 13:55 Pulse 64 12/30/22 13:55 Resp 18 12/30/22 13:55 BP 105/55 12/30/22 13:55 Pulse Ox 98 12/30/22 13:55 FiO2 Intake & Output 12/29/22 12/30/22 12/30/22 18:59 06:59 18:59 Intake Total 800 Balance 800 Weight 72.3 kg Intake: IV 800 Sodium Chloride 0.9% 1, 800 000 ml @ 100 mls/hr IV . Q10H [facility] Rx#:[id number] Other: Voiding Method Toilet Toilet # Voids 4 1 # Bowel Movements 1 - Labs CBC & Chem 7: 01/01/23 07:55 01/01/23 07:55 Labs: Abnormal Lab Results - Last 24 Hours (Table) 12/30/22 12/30/22 Range/Units 05:25 05:25 WBC 3.98 L (4.50-10.00) X 10*3/uL RBC 3.45 L (4.40-5.60) X 10*6/uL Hgb 10.8 L (13.0-17.0) g/dL Hct 33.5 L (39.6-50.0) % MCV 97.1 H (80.0-97.0) FL BUN 6.3 L (9.0-27.0) mg/dL BUN/Creatinine Ratio 9.00 L (12.00-20.00) Ratio Glucose 117 H (70-110) mg/dL
[2022-12-30 15:52] LABS: Appearance,Urine Cloudy (Clear); Bilirubin,Urine Negative (Negative); Blood,Urine Negative (Negative); Color,Urine Yellow; Glucose,Urine (UA) Negative (Negative); Ketones,Urine Negative (Negative); Leukocyte Esterase,Urine Small (Negative); Mucus,Urine Moderate /hpf; Nitrite,Urine Negative (Negative); Protein,Urine Negative (Negative); RBC,Urine 1 /hpf (0-5); Specific Gravity,Urine 1.023 (1.001-1.035); Squamous Epithelial Cell,Urine 3 /hpf (0-4); WBC,Urine 10 /hpf (0-5)
--- NOTE | 2022-12-30 16:48 | P.GSCN ---
History of Present Illness Consult date: 12/30/22 Reason for Consult: Left renal mass Requesting physician: Laci Baugh History of present illness: The patient is a 62-year-old -[place]in[place] male well known to Dr. Coleman. He is known to have a left hyperdense renal lesion. MRI without and with contrast in April 2022 suggested that the cyst was a hemorrhagic/proteinaceous cyst without enhancement. This cyst measured 3.2 x 3.7 cm in size, and a smaller left renal cyst was also noted. He has recently been admitted for evaluation of chest pain. CT scan shows a 3.4 cm left renal hyperdense cyst, which does not appear to enhance. The patient reports intermittent lower back pain. He also reports occasional hematuria, though he is a vague historian. Review of Systems - Cardiovascular Reports chest pain - Genitourinary Reports hematuria Past Medical History Past Medical History: Coronary Artery Disease (CAD), Chest Pain / Angina, Hype rlipidemia, Myocardial Infarction (PR), Osteoarthritis (OA) Additional Past Medical History / Comment(s): arthritis in back and bilateral knees,hx hiatal hernia Last Myocardial Infarction Date:: 2004 History of Any Multi-Drug Resistant Organisms: None Reported Past Surgical History: Bowel Resection, Heart Catheterization With Stent Additional Past Surgical History / Comment(s): Cardiac stents x 3, bowel surgery for pinpoint hole in bowel, L knee arthroscopy, colonoscopy/benign polypectomies,hiatal hernia repair Past Anesthesia/Blood Transfusion Reactions: No Reported Reaction Date of Last Stent Placement:: 2013 Past Psychological History: Bipolar, Depression, PTSD, Schizophrenia Additional Psychological History / Comment(s): He states he goes to [facility]. Smoking Status: Current every day smoker Past Alcohol Use History: Occasional Additional Past Alcohol Use History / Comment(s): Pt states he started smoking in 1994 a pack will last him a month. Past Drug Use History: Cocaine, IV Drug Use, Marijuana, Opiates, Prescription Drug Abuse Additional Drug Use History / Comment(s): Pt states that he used MJ. Pt states that he has a history of cocaine, drinks a 12 pack per day. - Past Family History Father Family Medical History: Respiratory Disorder Additional Family Medical History / Comment(s): Father at age 64 from Black lung disease Mother Family Medical History: Hypertension, Myocardial Infarction (PR) Additional Family Medical History / Comment(s): Mother of an PR at 78yrs old. Brother(s) Family Medical History: Myocardial Infarction (PR) Additional Family Medical History / Comment(s): Patient has 10 brothers and 2 from myocardial infarction and had history of alcoholism. Sister(s) Family Medical History: Hypertension, Myocardial Infarction (PR) Additional Family Medical History / Comment(s): He has 7 sisters that are alive with no major medical problems. He has one son that has and one daughter that is alive and okay. Medications and Allergies Home Medications Medication Instructions Recorded Confirmed Type Clopidogrel [Plavix] 75 mg PO DAILY 30 Days #30 tablet 07/24/22 12/26/22 Rx QUEtiapine [SEROquel] 400 mg PO HS 30 Days #30 tab 07/24/22 12/26/22 Rx Cetirizine HCl [Zyrtec] 10 mg PO DAILY 12/17/22 12/26/22 History HYDROcodone/APAP 10-325MG [[place] 1 tab PO QID 12/17/22 12/26/22 History 10-325] QUEtiapine [SEROquel] 200 mg PO DAILY 12/17/22 12/26/22 History Venlafaxine HCl ER [Effexor XR] 112.5 mg PO DAILY 12/17/22 12/26/22 History carvediloL [Coreg] 3.125 mg PO BID 12/17/22 12/26/22 History hydrOXYzine pamoate [Vistaril] 25 mg PO DAILY 12/17/22 12/26/22 History Aspirin 81 mg PO DAILY #30 tab 12/18/22 12/26/22 Rx Atorvastatin [Lipitor] 40 mg PO HS #30 tab 12/18/22 12/26/22 Rx Naloxone HCl [Narcan] 4 mg NASAL DIRECTED PRN 12/26/22 12/26/22 History Pantoprazole [Protonix] 40 mg PO BID 30 Days #60 tab 12/30/22 Rx Sucralfate [Carafate] 1 gm PO BID 15 Days #300 ml 12/30/22 Rx Allergies Allergy/AdvReac Type Severity Reaction Status Date / Time blueberry Allergy Rash/Hives Verified 12/26/22 07:46 nitroglycerin Allergy Swelling Verified 12/26/22 07:46 Surgical - Exam Vital Signs Temp Pulse Resp BP Pulse Ox 98.2 F 92 18 124/91 97 12/26/22 05:46 12/26/22 05:46 12/26/22 05:46 12/26/22 05:46 12/26/22 05:46 - General well developed, well nourished, no distress - Respiratory normal respiratory effort - Abdomen Abdomen: soft, non tender, no guarding, no rigid, no rebound - Genitourinary normal penis with no external lesions, testicles non-tender - Psychiatric oriented to time, oriented to person, oriented to place, speech is normal, memory intact Results - Labs 12/30/22 05:25 12/30/22 05:25 Abnormal Lab Results - Last 24 Hours (Table) 12/29/22 Range/Units 07:11 WBC 4.00 L (4.50-10.00) X 10*3/uL RBC 3.92 L (4.40-5.60) X 10*6/uL Hgb 12.1 L (13.0-17.0) g/dL Hct 39.0 L (39.6-50.0) % MCV 99.5 H (80.0-97.0) FL MCHC 31.0 L (32.0-37.0) g/dL - Imaging CT scan - abdomen: report reviewed, image reviewed Assessment and Plan (1) Renal cyst Current Visit: Yes Status: Acute Code(s): N28.1 - CYST OF KIDNEY, ACQUIRED SNOMED Code(s): 676798052 (2) Gross hematuria Current Visit: Yes Status: Acute Code(s): R31.0 - GROSS HEMATURIA SNOMED Code(s): 679079182 Plan: MRI has been ordered to better evaluate the left renal cysts, and of course these images will be compared to the MRI performed in April. I explained to the patient the gross hematuria is abnormal, and that he will require outpatient office cystoscopy to rule out intravesical pathology. Time with Patient: Greater than 30
--- NOTE | 2022-12-30 19:11 | MR ---
EXAMINATION TYPE: MR kidney wo/w con DATE OF EXAM: 12/30/2022 4:25 PM CLINICAL INDICATION:Male, 62 years old with history of Renal mass; PHH, Renal mass COMPARISON: MRI 04/25/2022. TECHNIQUE: Multiplanar multi-sequence imaging was performed without contrast. Post contrast imaging was performed. Post IV contrast subtraction images were also submitted for review. IV Contrast: 7 cc Gadobutrol FINDINGS: LOWER CHEST: No gross irregularity. ABDOMEN Liver: Similar scattered high T2 hepatic cysts, the largest measuring 2.1 x 1.8 cm with thin septatio n versus adjacent cyst. No abnormal postcontrast enhancement. Gallbladder and Bile ducts: No evidence of ductal dilation or evidence for cholelithiasis.. Pancreas: No ductal dilation or abnormal enhancement. Spleen: Unremarkable. Adrenal glands: Unremarkable. Kidneys: Right kidney: No evidence for mass or Shelby nephrosis. Left kidney: Low T2/intermediate T1 signal lesion measuring 3.6 x 3.7 x 3.2 cm. Subtraction imaging d emonstrated no evidence for enhancement. Additional high T1 intrinsic signal left renal cyst measuring 1.5 cm, Subtraction imaging demonstrate d no evidence for enhancement. Stomach and Bowel: Unremarkable as visualized. Peritoneum: No evidence of pneumoperitoneum or free fluid. Vasculature: Unremarkable. No aortic aneurysm. Musculoskeletal: The osseous structures appear intact. Degeneration changes of the spine with osteoph yte formation. Levoscoliosis apex L3. Lymph Nodes: No gross evidence for lymphadenopathy. Abdominal wall: Small fat-containing umbilical hernia. IMPRESSION: 1. No suspicious renal masses. Stable left renal lesions most compatible with hemorrhagic/proteinace ous cysts. 2. Scattered simple appearing hepatic cyst.
[2022-12-30] MEDS: ATORVASTATIN 40 MG TAB PO SCH (20:23)
[2022-12-30] MEDS: QUEtiapine 400 MG TAB PO SCH (20:24)
[2022-12-31] MEDS: SODIUM CHLORIDE 0.9% 1,000 ML IV SCH ×2 (01:49→15:35)
[2022-12-31] MEDS: PANTOPRAZOLE 40 MG TABLET PO SCH (06:30)
[2022-12-31] MEDS ORDERED: PROPOFOL 10 MG/ML 20 ML VIAL IV ONE (07:54)
[2022-12-31] MEDS ORDERED: LIDOCAINE 1% INJ 10MG/ML (20 ML MDV) ONE (07:54)
[2022-12-31] MEDS ORDERED: IV FLUID CONTINUATION 600 ML IV ONE (08:02)
[2022-12-31] MEDS ORDERED: LACTATED RINGERS 1,000 ML IV SCH (08:27)
[2022-12-31] MEDS ORDERED: LIDOCAINE 1% (10MG/ML) FOR IV START INTRADERMA PRN (08:27)
[2022-12-31] MEDS: HYDROcodone/APAP 10-325MG 1 EACH TAB PO PRN ×2 (08:40→21:04)
[2022-12-31] MEDS: carvediloL 3.125 MG TAB PO SCH ×2 (08:40→17:13)
[2022-12-31] MEDS: hydrOXYzine pamoate 25 MG CAP PO SCH (08:41)
[2022-12-31] MEDS: QUEtiapine 200 MG TAB PO SCH (08:41)
[2022-12-31] MEDS: VENLAFAXINE HCL ER 37.5 MG CAP PO SCH (08:41)
[2022-12-31] MEDS: LORATADINE 10 MG TAB PO SCH (08:41)
[2022-12-31] MEDS: ASPIRIN 81 MG PO SCH (08:41)
[2022-12-31 08:53] LABS: HCT 32.7 % (39.6-50.0); HGB 10.5 g/dL (13.0-17.0); MCH 31.2 pg (27.0-32.0); MCHC 32.1 g/dL (32.0-37.0); Mean Platelet Volume 11.9 FL (9.5-12.2); NRBC Per 100 WBC 0 X 10*3/uL (0.00-0.01); Platelet Count 151 X 10*3/uL (140-440); RBC 3.37 X 10*6/uL (4.40-5.60); WBC 4.61 X 10*3/uL (4.50-10.00)
[2022-12-31 08:56] LABS: BUN/Creat Ratio 10.57 Ratio (12.00-20.00); Blood Urea Nitrogen 7.4 mg/dL (9.0-27.0); Chloride 108 mmol/L (96-109); Glucose 95 mg/dL (70-110); Potassium 4.1 mmol/L (3.5-5.5); Sodium 141 mmol/L (135-145)
--- NOTE | 2022-12-31 10:15 | P.PN ---
Subjective Progress Note Date: 12/31/22 Principal diagnosis: Hematuria, left renal cyst MRI of the abdomen without and with contrast was obtained. The left renal lesion appears to be a hemorrhagic cyst, and there is no evidence of enhancement. This is consistent with a Bosniak 2 cyst, and I have discussed this in detail with the patient. I explained to him that a lesion of this classification is associated with an extremely low risk of malignancy. Objective - Vital Signs Vital signs: Vital Signs Temp 98 F 12/31/22 09:16 Pulse 59 L 12/31/22 09:16 Resp 16 12/31/22 09:16 BP 119/78 12/31/22 09:16 Pulse Ox 97 12/31/22 09:16 FiO2 Intake & Output 12/30/22 12/31/22 12/31/22 18:59 06:59 18:59 Intake Total 800 100 Balance 800 100 Weight 72.3 kg Intake: IV 800 100 Sodium Chloride 0.9% 1, 800 000 ml @ 100 mls/hr IV . Q10H [facility] Rx#:[id number] Other: Voiding Method Toilet # Voids 2 - Constitutional General appearance: Present: average body habitus, no acute distress - Psychiatric Psychiatric: Present: A&O x's 3 - Labs CBC & Chem 7: 12/31/22 05:06 12/31/22 05:06 Labs: Abnormal Lab Results - Last 24 Hours (Table) 12/30/22 12/31/22 12/31/22 Range/Units 15:00 05:06 05:06 RBC 3.37 L (4.40-5.60) X 10*6/uL Hgb 10.5 L (13.0-17.0) g/dL Hct 32.7 L (39.6-50.0) % BUN 7.4 L (9.0-27.0) mg/dL BUN/Creatinine Ratio 10.57 L (12.00-20.00) Ratio Ur Leukocyte Esterase Small H (Negative) Urine WBC 10 H (0-5) /hpf Urine Mucus Moderate H (None) /hpf Assessment and Plan (1) Renal cyst Current Visit: Yes Status: Acute Code(s): N28.1 - CYST OF KIDNEY, ACQUIRED SNOMED Code(s): 243847716 (2) Gross hematuria Current Visit: Yes Status: Acute Code(s): R31.0 - GROSS HEMATURIA SNOMED Code(s): 265994420 Plan: The patient has been reassured that his left renal lesion appears to be a hemorrhagic cyst and that no further evaluation or treatment is warranted at this time. Given his history of gross hematuria, I explained the rationale for outpatient office cystoscopy to rule out intravesical pathology (specifically malignancy). He will follow-up with Dr. Coleman for this. Please notify us if we can be of any further assistance.
--- NOTE | 2022-12-31 12:43 | P.PN ---
Subjective Progress Note Date: 12/31/22 * 62-year-old gentleman with past medical history significant for COPD, hyperlipidemia, coronary artery disease with history of PCI, polysubstance use history of schizophrenia presents to the emergency department with repeat episode of chest pain. * Patient was recently admitted and discharged on 12/18/22 seen by cardiology for similar presentation. Patient states chest pain started earlier in the day and was midsternal. Chest pain was nonradiating no aggravating or relieving factors. Patient was complaining of shortness of breath and diaphoresis associated with chest pain * Workup in ER included a chest x-ray which was unremarkable, EKG obtained showed sinus rhythm QTC within normal limits no significant ST segment changes * Further workup in ER included CBC which showed WBC of 3.5 hemoglobin 11.9 platelet 170, PT INR 0.9 10.1, serum chemistry showed sodium of 142 potassium 4.1, BUN/creatinine and creatinine within normal limits * Initial troponin obtained within normal limits * Patient placed in observation with consultation from cardiology for recurrent chest pain. Patient was scheduled to see cardiology within a week from discharge on 12/18/22 * During the encounter patient does state his chest pain is associated with exertion, will request repeat assessment from cardiology * Most recent echocardiogram obtained in 12/17/2022 revealed mild left ventricular size and systolic function. Mild mitral and tricuspid regurgitation. * Cardiac catheterization history: June 2022 revealing mild in-stent restenosis of LAD in the midportion and normal left sided filling pressures. Medical management was recommended. * 12/27/22: Patient was seen by cardiology and cleared for discharge, patient continued to have chest discomfort, recommend general surgery assessment for EGD patient did complain of episode of hematemesis at home as well as an episode of blood in stool recently at home. Will need further assessment. At this time patient is on aspirin and Plavix to be continued continue to monitor H&H continue patient on Protonix * 12/28: Patient seen and evaluated bedside, hemoglobin remained stable, recommended general surgery to follow-up patient will need EGD to be scheduled with general surgery on 12/29. Hemoglobin 10.6 troponin remained negative, lipase 131, CT abdomen pelvis ordered * 12/29: Patient seen and evaluated bedside, retrosternal abdominal pain and chest pain has improved, waiting for EGD, CT abdomen and pelvis reviewed, noted to have left renal mass 3.4 cm, MRI kidney ordered: Distention noted low-density lesion and liver noted as well. * 12/30/2022: Patient seen and evaluated bedside, patient continued to complain of epigastric abdominal pain, minimal oral intake, continued to have postprandial nausea requiring IV Zofran every 8 hours when necessary. Patient stating he is not ready for discharge and panic 2. The discharge of discharge today. Urology consulted patient did complain of trace hematuria will get urine analysis general surgery team on consult as well and will plan EGD on 12/31/22 considering patient had intractable nausea and persistent abdominal pain suspect an ulcer possible etiology hence we will continue to monitor inpatient. Patient also has bicytopenia that needs to be monitored we will consult oncology for the evaluation * 12/31/22: Patient seen and evaluated bedside, patient is alert and oriented 3, patient is status post EGD showed esophageal diverticulum and hiatal hernia, patient placed on ground diet will monitor and advance diet if patient remains stable possible discharge later today and MRI results discussed with patient already Objective - Vital Signs Vital signs: Vital Signs Temp 98 F 12/31/22 09:16 Pulse 59 L 12/31/22 09:16 Resp 16 12/31/22 09:16 BP 119/78 12/31/22 09:16 Pulse Ox 97 12/31/22 09:16 FiO2 Intake & Output 12/30/22 12/31/22 12/31/22 18:59 06:59 18:59 Intake Total 800 100 Balance 800 100 Weight 72.3 kg Intake: IV 800 100 Sodium Chloride 0.9% 1, 800 000 ml @ 100 mls/hr IV . Q10H [facility] Rx#:[id number] Other: Voiding Method Toilet # Voids 2 - Exam PHYSICAL EXAMINATION: GENERAL: The patient is alert and oriented x3, not in any acute distress. Well developed, well nourished. HEENT: Pupils are round and equally reacting to light. EOMI. CARDIOVASCULAR: S1 and S2 present. No murmurs, rubs, or gallops. PULMONARY: Chest is clear to auscultation, no wheezing or crackles. ABDOMEN: Soft, epigastric pain, no guarding no rigidity. MUSCULOSKELETAL: No joint swelling or deformity. EXTREMITIES: No cyanosis, clubbing, or pedal edema. NEUROLOGICAL: Gross neurological examination did not reveal any focal deficits. SKIN: No rashes. - Labs CBC & Chem 7: 12/31/22 05:06 12/31/22 05:06 Labs: Abnormal Lab Results - Last 24 Hours (Table) 12/30/22 12/31/22 12/31/22 Range/Units 15:00 05:06 05:06 RBC 3.37 L (4.40-5.60) X 10*6/uL Hgb 10.5 L (13.0-17.0) g/dL Hct 32.7 L (39.6-50.0) % BUN 7.4 L (9.0-27.0) mg/dL BUN/Creatinine Ratio 10.57 L (12.00-20.00) Ratio Ur Leukocyte Esterase Small H (Negative) Urine WBC 10 H (0-5) /hpf Urine Mucus Moderate H (None) /hpf Assessment and Plan Assessment: Assessment and plan * Chest pain history of coronary artery disease rule out ACS * History of hematemesis with Retrosternal pain rule out gastritis * Left renal cyst/proteinaceous hemorrhagic cyst * Bicytopenia * History of schizophrenia * Hypertension * Dyslipidemia * In regards to chest pain, seen by cardiology multiple troponins obtained negative/cleared for discharge per cardiology. Patient continues to have chest pain/questioning and planning to appeal discharge * Patient has persistent pain/anemia noted complain of episode of hematemesis/continue IV Protonix general surgery consulted for EGD completedshows a HIDA hernia is a physical diverticulum, CT abdomen pelvis done, left renal mass noted urology consulted him a * In regards to left renal mass, urology consulted, MRI kidney left renal cyst, urinalysis ordered negative for blood * Echocardiogram completed during last hospitalization one week ago showed preserved ejection fraction no wall motion abnormality noted. Patient was scheduled to follow-up with cardiology post discharge * In regards to hypertension continue patient on Coreg * In regards to history of schizophrenia continue home medications Seroquel, Effexor. QTC within normal limits checked on EKG done on admission * In regards to bicytopenia will continue to monitor cell count * Plan to discharge later today if able to tolerate diet
[2022-12-31 13:22] LABS: HCT 33.2 % (39.0-53.0); MCH 32.6 pg (25.0-35.0); MCHC 33.1 g/dL (31.0-37.0); MCV 98.5 fL (80.0-100.0); Mean Platelet Volume 9.3; Platelet Count 140 k/uL (150-450); RBC 3.38 m/uL (4.30-5.90); RDW 13.5 % (11.5-15.5)
[2022-12-31 15:09] LABS: Eosinophils # (M) 0.08 k/uL (0-0.7); Lymphocytes # (M) 1.12 k/uL (1.0-4.8); Monocytes # (M) 0.32 k/uL (0-1.0); Neutrophils # (M) 2.48 k/uL (1.3-7.7); Neutrophils % (M) 62 %; Nucleated Red Blood Cells 0 /100 WBC (0-0); Total Cells Counted 100
--- NOTE | 2022-12-31 19:38 | P.CONS ---
History of Present Illness - Reason for Consult Consult date: 12/31/22 bicytopenia Requesting physician: Laci Baugh - Chief Complaint chest pain - History of Present Illness Mr. Scott is a 62-year-old gentleman with PMH of COPD, hyperlipidemia, CAD with PCI, polysubstance abuse, and schizophrenia who presented to ER with c/o chest pain. Work up with Cardiology who is following. Since admit, CBC monitoring has revealed mild normocytic, normochromic anemia and thrombocytopenia and occasional mild leukopenia. Pt denies Hx of the same, no bleeding, unusual bruising. He denies ETOH abuse but in lab review there have been multiple occasions of severe intoxication. He had a CT AP showing a lt reanl mass that had increased in size from 2.1 to 3.4 compared to scan 08/29, MRI reported stable hemorrhagic/proteinaceous cysts. Liver irregularities on CT, reported in MRI as cysts/hemangiomas. Pt has had EGD, biopsies pending. Review of Systems 10 point ROS is neg except as stated in HPI Past Medical History Past Medical History: Coronary Artery Disease (CAD), Chest Pain / Angina, Hyperlipidemia, Myocardial Infarction (OK), Osteoarthritis (OA) Additional Past Medical History / Comment(s): arthritis in back and bilateral knees,hx hiatal hernia Last Myocardial Infarction Date:: 2004 History of Any Multi-Drug Resistant Organisms: None Reported Past Surgical History: Bowel Resection, Heart Catheterization With Stent Additional Past Surgical History / Comment(s): Cardiac stents x 3, bowel surgery for pinpoint hole in bowel, L knee arthroscopy, colonoscopy/benign polypectomies,hiatal hernia repair Past Anesthesia/Blood Transfusion Reactions: No Reported Reaction Date of Last Stent Placement:: 2013 Past Psychological History: Bipolar, Depression, PTSD, Schizophrenia Additional Psychological History / Comment(s): He states he goes to [facility]. Smoking Status: Current every day smoker Past Alcohol Use History: Occasional Additional Past Alcohol Use History / Comment(s): Pt states he started smoking in 1994 a pack will last him a month. Past Drug Use History: Cocaine, IV Drug Use, Marijuana, Opiates, Prescription Drug Abuse Additional Drug Use History / Comment(s): Pt states that he used MJ. Pt states that he has a history of cocaine, drinks a 12 pack per day. - Past Family History Father Family Medical History: Respiratory Disorder Additional Family Medical History / Comment(s): Father at age 64 from Black lung disease Mother Family Medical History: Hypertension, Myocardial Infarction (OK) Additional Family Medical History / Comment(s): Mother of an OK at 78yrs old. Brother(s) Family Medical History: Myocardial Infarction (OK) Additional Family Medical History / Comment(s): Patient has 10 brothers and 2 from myocardial infarction and had history of alcoholism. Sister(s) Family Medical History: Hypertension, Myocardial Infarction (OK) Additional Family Medical History / Comment(s): He has 7 sisters that are alive with no major medical problems. He has one son that has and one daughter that is alive and okay. Medications and Allergies Home Medications Medication Instructions Recorded Confirmed Type Clopidogrel [Plavix] 75 mg PO DAILY 30 Days #30 tablet 07/24/22 12/26/22 Rx QUEtiapine [SEROquel] 400 mg PO HS 30 Days #30 tab 07/24/22 12/26/22 Rx Cetirizine HCl [Zyrtec] 10 mg PO DAILY 12/17/22 12/26/22 History HYDROcodone/APAP 10-325MG [[place] 1 tab PO QID 12/17/22 12/26/22 History 10-325] QUEtiapine [SEROquel] 200 mg PO DAILY 12/17/22 12/26/22 History Venlafaxine HCl ER [Effexor XR] 112.5 mg PO DAILY 12/17/22 12/26/22 History carvediloL [Coreg] 3.125 mg PO BID 12/17/22 12/26/22 History hydrOXYzine pamoate [Vistaril] 25 mg PO DAILY 12/17/22 12/26/22 History Aspirin 81 mg PO DAILY #30 tab 12/18/22 12/26/22 Rx Atorvastatin [Lipitor] 40 mg PO HS #30 tab 12/18/22 12/26/22 Rx Naloxone HCl [Narcan] 4 mg NASAL DIRECTED PRN 12/26/22 12/26/22 History Pantoprazole [Protonix] 40 mg PO BID 30 Days #60 tab 12/30/22 Rx Sucralfate [Carafate] 1 gm PO BID 15 Days #300 ml 12/30/22 Rx Allergies Allergy/AdvReac Type Severity Reaction Status Date / Time blueberry Allergy Rash/Hives Verified 12/26/22 07:46 nitroglycerin Allergy Swelling Verified 12/26/22 07:46 Physical Exam Vitals: Vital Signs Temp Pulse Resp BP Pulse Ox 12/31/22 17:11 74 138/88 12/31/22 13:05 97.7 F 70 17 99/65 99 12/31/22 09:16 98 F 59 L 16 119/78 97 12/31/22 08:43 97.9 F 73 16 137/89 100 12/31/22 07:17 98 F 61 17 132/86 100 12/31/22 02:00 98 F 76 111/81 95 Intake and Output 12/31/22 12/31/22 12/31/22 06:59 14:59 22:59 Intake Total 100 Balance 100 Intake: IV 100 Other: # Voids 2 1 Weight 72.3 kg - Constitutional General appearance: average body habitus, cooperative, no acute distress - EENT Eyes: anicteric sclerae, EOMI ENT: hearing grossly normal, normal oropharynx - Neck Neck: no lymphadenopathy - Respiratory Respiratory: bilateral: CTA - Cardiovascular Rhythm: regular Heart sounds: normal: S1, S2 Abnormal Heart Sounds: no systolic murmur, no diastolic murmur, no rub, no S3 Gallop, no S4 Gallop, no click, no other leg Peripheral Edema: bilateral: None - Gastrointestinal General gastrointestinal: no absent bowel sounds, no decreased bowel sounds, no distended, no hepatomegaly, no hyperactive bowel sounds, normal bowel sounds, no organomegaly, no rigid, no scaphoid, soft, no splenomegaly, no tenderness, no umbilical hernia, no ventral hernia - Integumentary Integumentary: normal - Neurologic Neurologic: CNII-XII intact - Musculoskeletal Musculoskeletal: strength equal bilaterally - Psychiatric Psychiatric: A&O x's 3, appropriate affect, intact judgment & insight Results CBC & Chem 7: 12/31/22 12:43 12/31/22 05:06 Labs: Abnormal Lab Results - Last 24 Hours (Table) 12/31/22 12/31/22 12/31/22 Range/Units 05:06 05:06 12:43 RBC 3.37 L 3.38 L (4.40-5.60) X 10*6/uL Hgb 10.5 L 11.0 L (13.0-17.0) g/dL Hct 32.7 L 33.2 L (39.6-50.0) % Plt Count 140 L (150-450) k/uL BUN 7.4 L (9.0-27.0) mg/dL BUN/Creatinine Ratio 10.57 L (12.00-20.00) Ratio Comments: Renal MRI report reviewed Chest x-ray: report reviewed CT scan - abdomen: report reviewed CT scan - pelvis: report reviewed Assessment and Plan (1) Bicytopenia Current Visit: Yes Status: Acute Priority: High Code(s): D75.89 - OTHER SPECIFIED DISEASES OF BLOOD AND BLOOD-FORMING ORGANS SNOMED Code(s): 02491620 Plan: Bicytopenia -Intermittent, mildly low plt counts and anemia in this medical record since 2014 -Pt has history of ETOH intoxication and hospitalized for the same -Iron studies, nutritional labs, inflammatory markers and paraproteinemia work up ordered. -US liver and spleen to assess for cirrhosis, splenomegaly -Transfuse for a Hgb <7, Plt <10,000 or if symptomatic Attests: I have seen and examined pt, performed H&P, developed impression and plan of care. Discussed with dictator. Agree with documentation, dictated as a scribe.
--- NOTE | 2022-12-31 20:23 | US ---
EXAMINATION TYPE: US abdomen complete DATE OF EXAM: 12/31/2022 COMPARISON: CT:12/28/22 CLINICAL INDICATION: Male, 62 years old with history of bicytopenia; bicytopenia. Hx of renal mass on lt kidney TECHNIQUE: Multiple sonographic images of the abdomen are obtained. FINDINGS: EXAM MEASUREMENTS: Liver Length: 13.9 cm Gallbladder Wall: 0.18 cm CBD: 0.4 cm Spleen: 9.8 cm Right Kidney: 10.0 x 6.0 x 6.2 cm Left Kidney: 11.9 x 6.9 x 7.5 cm CARBONATING STONE CLEANER NOTES: Bilateral kidneys limited due to bowel gas Pancreas: Suboptimal visualization due to bowel gas. Liver: Hepatic cyst with posterior enhancement seen measuring 2.1 x 2.4 x 1.3cm Gallbladder: wnl Evidence for sonographic Jones's sign: No CBD: wnl Spleen: wnl Right Kidney: No hydronephrosis or obvious masses seen, however slightly limited due to bowel gas Left Kidney: Hypoechoic area seen measuring 3.3 x 2.3 x 1.4cm at the midpole. Area limited due to amanda wel gas Upper IVC: wnl Abd Aorta: Prox aorta appears ectatic, mid and dist obscured by bowel gas IMPRESSION: 1. Bowel gas limits the exam. 2. A 3.3 cm mid pole left kidney lesion suspected cyst with internal echoes being artifactual or debr is. Follow-up as clinically indicated. Refer to recent MRI report from yesterday. 3. No gallstones or biliary ductal dilatation.
[2022-12-31] MEDS: QUEtiapine 400 MG TAB PO SCH (21:05)
[2022-12-31] MEDS: ATORVASTATIN 40 MG TAB PO SCH (21:05)
[2023-01-01] MEDS: SODIUM CHLORIDE 0.9% 1,000 ML IV SCH ×2 (01:19→08:41)
[2023-01-01 03:45] LABS: Ferritin 77.1 ng/mL (22.0-322.0); Iron 40 UG/DL (65-175); Rheumatoid Factor, Qnt <15 IU/mL (0-15); Total Iron Binding Capacity 328 UG/DL (228-460)
[2023-01-01 04:21] LABS: Albumin 3.6 g/dL (3.8-4.9); Protein, Total 5.9 g/dL (6.2-8.2)
[2023-01-01] MEDS: carvediloL 3.125 MG TAB PO SCH (06:05)
[2023-01-01] MEDS: PANTOPRAZOLE 40 MG TABLET PO SCH (06:05)
[2023-01-01] MEDS: VENLAFAXINE HCL ER 37.5 MG CAP PO SCH (08:40)
[2023-01-01] MEDS: LORATADINE 10 MG TAB PO SCH (08:40)
[2023-01-01] MEDS: QUEtiapine 200 MG TAB PO SCH (08:40)
[2023-01-01] MEDS: hydrOXYzine pamoate 25 MG CAP PO SCH (08:40)
[2023-01-01] MEDS: ASPIRIN 81 MG PO SCH (08:41)
[2023-01-01 08:55] LABS: African American GFR (CKD) >90 (>60 ml/min/1.73 sqM); Anion Gap 5 mmol/L; Blood Urea Nitrogen 8 mg/dL (9-20); Carbon Dioxide 27 mmol/L (22-30); Chloride 107 mmol/L (98-107); Glucose 83 mg/dL (74-99); Non-African American GFR(CKD) >90 (>60 ml/min/1.73 sqM); Potassium 4.1 mmol/L (3.5-5.1); Sodium 139 mmol/L (137-145)
[2023-01-01 09:05] VITALS: RESP 20
[2023-01-01 09:32] LABS: HCT 35.3 % (39.0-53.0); HGB 11.3 gm/dL (13.0-17.5); MCH 31.6 pg (25.0-35.0); MCV 98.5 fL (80.0-100.0); Mean Platelet Volume 9.1; Platelet Count 150 k/uL (150-450); RBC 3.58 m/uL (4.30-5.90)
--- NOTE | 2023-01-01 09:55 | P.PN ---
Progress Note - Text Progress Note Date: 01/01/23 Patient is stable. He underwent EGD that from yesterday. On exam vital signs appear stable. Abdomen soft. Patient is tolerating regular diet. He will follow-up Dr. Stapleton as an outpatient.
--- NOTE | 2023-01-01 13:09 | P.DS ---
Providers Date of admission: 12/26/22 08:01 Expected date of discharge: 01/01/23 Attending physician: Angie Houser Consults: 12/26/22 08:00 Consult Physician Urgent Consulting Provider: [facility] Consult Reason/Comments: chest pain Do you want consulting provider notified?: Yes 12/29/22 08:20 Consult Physician Routine Consulting Provider: Syeda Tavera Consult Reason/Comments: EGD Do you want consulting provider notified?: Already Contacted 12/29/22 10:02 Consult Physician Routine Consulting Provider: Matheus Jean Consult Reason/Comments: Renal mass, increase in size Do you want consulting provider notified?: Yes 12/30/22 11:29 Consult Physician Routine Consulting Provider: Oscar Alexandra Consult Reason/Comments: Bicytopenia with renal mass Do you want consulting provider notified?: Yes Primary care physician: Physician Nonsta Hospital Course: * 62-year-old gentleman with past medical history significant for COPD, hyperlipidemia, coronary artery disease with history of PCI, polysubstance use history of schizophrenia presents to the emergency department with repeat episode of chest pain. * Patient was recently admitted and discharged on 12/18/22 seen by cardiology for similar presentation. Patient states chest pain started earlier in the day and was midsternal. Chest pain was nonradiating no aggravating or relieving factors. Patient was complaining of shortness of breath and diaphoresis associated with chest pain * Workup in ER included a chest x-ray which was unremarkable, EKG obtained showed sinus rhythm QTC within normal limits no significant ST segment changes * Further workup in ER included CBC which showed WBC of 3.5 hemoglobin 11.9 platelet 170, PT INR 0.9 10.1, serum chemistry showed sodium of 142 potassium 4.1, BUN/creatinine and creatinine within normal limits * Initial troponin obtained within normal limits * Patient placed in observation with consultation from cardiology for recurrent chest pain. Patient was scheduled to see cardiology within a week from discharge on 12/18/22 * During the encounter patient does state his chest pain is associated with exertion, will request repeat assessment from cardiology * Most recent echocardiogram obtained in 12/17/2022 revealed mild left ventricular size and systolic function. Mild mitral and tricuspid regurgitation. * Cardiac catheterization history: June 2022 revealing mild in-stent restenosis of LAD in the midportion and normal left sided filling pressures. Medical management was recommended. * 12/27/22: Patient was seen by cardiology and cleared for discharge, patient continued to have chest discomfort, recommend general surgery assessment for EGD patient did complain of episode of hematemesis at home as well as an episode of blood in stool recently at home. Will need further assessment. At this time patient is on aspirin and Plavix to be continued continue to monitor H&H continue patient on Protonix * 12/28: Patient seen and evaluated bedside, hemoglobin remained stable, recommended general surgery to follow-up patient will need EGD to be scheduled with general surgery on 12/29. Hemoglobin 10.6 troponin remained negative, lipase 131, CT abdomen pelvis ordered * 12/29: Patient seen and evaluated bedside, retrosternal abdominal pain and chest pain has improved, waiting for EGD, CT abdomen and pelvis reviewed, noted to have left renal mass 3.4 cm, MRI kidney ordered: Distention noted low-density lesion and liver noted as well. * 12/30/2022: Patient seen and evaluated bedside, patient continued to complain of epigastric abdominal pain, minimal oral intake, continued to have postprandial nausea requiring IV Zofran every 8 hours when necessary. Patient stating he is not ready for discharge and panic 2. The discharge of discharge today. Urology consulted patient did complain of trace hematuria will get urine analysis general surgery team on consult as well and will plan EGD on 12/31/22 considering patient had intractable nausea and persistent abdominal pain suspect an ulcer possible etiology hence we will continue to monitor inpatient. Patient also has bicytopenia that needs to be monitored we will consult oncology for the evaluation * 12/31/22: Patient seen and evaluated bedside, patient is alert and oriented 3, patient is status post EGD showed esophageal diverticulum and hiatal hernia, patient placed on ground diet will monitor and advance diet if patient remains stable possible discharge later today and MRI results discussed with patient already * 01/01/23: Patient seen and evaluated bedside, patient is status was EGD able to tolerate diet, seen by hematology as well as ultrasound abdomen completed. Patient to be discharged home. Patient in agreement with discharge PHYSICAL EXAMINATION: GENERAL: The patient is alert and oriented x3, not in any acute distress. Well developed, well nourished. HEENT: Pupils are round and equally reacting to light. EOMI. CARDIOVASCULAR: S1 and S2 present. No murmurs, rubs, or gallops. PULMONARY: Chest is clear to auscultation, no wheezing or crackles. ABDOMEN: Soft, nontender on palpation no guarding no rigidity. MUSCULOSKELETAL: No joint swelling or deformity. EXTREMITIES: No cyanosis, clubbing, or pedal edema. NEUROLOGICAL: Gross neurological examination did not reveal any focal deficits. SKIN: No rashes. Assessment: Assessment and plan * Chest pain history of coronary artery disease rule out ACS * History of hematemesis with Retrosternal pain rule out gastritis * Left renal cyst/proteinaceous hemorrhagic cyst * Bicytopenia * History of schizophrenia * Hypertension * Dyslipidemia * In regards to chest pain, seen by cardiology multiple troponins obtained negative/cleared for discharge per cardiology. Patient continues to have chest pain/questioning and planning to appeal discharge * Patient has persistent pain/anemia noted complain of episode of hematemesis/continue IV Protonix general surgery consulted for EGD completedshows a HIDA hernia is a physical diverticulum, CT abdomen pelvis done, left renal mass noted urology consulted him, recommend outpatient follow-up * In regards to left renal mass, urology consulted, MRI kidney left renal cyst, urinalysis ordered negative for blood * Echocardiogram completed during last hospitalization one week ago showed preserved ejection fraction no wall motion abnormality noted. Patient was scheduled to follow-up with cardiology post discharge * In regards to hypertension continue patient on Coreg * In regards to history of schizophrenia continue home medications Seroquel, Effexor. QTC within normal limits checked on EKG done on admission * In regards to bicytopenia will continue to monitor cell count * Plan to discharge later today if able to tolerate diet Patient Condition at Discharge: Stable Plan - Discharge Summary Discharge Rx Participant: No New Discharge Prescriptions: New Sucralfate [Carafate] 1 gm PO BID 15 Days #300 ml Pantoprazole [Protonix] 40 mg PO BID 30 Days #60 tab Continue hydrOXYzine pamoate [Vistaril] 25 mg PO DAILY carvediloL [Coreg] 3.125 mg PO BID Venlafaxine HCl ER [Effexor XR] 112.5 mg PO DAILY Cetirizine HCl [Zyrtec] 10 mg PO DAILY Aspirin 81 mg PO DAILY #30 tab Atorvastatin [Lipitor] 40 mg PO HS #30 tab Naloxone HCl [Narcan] 4 mg NASAL DIRECTED PRN PRN Reason: OVERDOSE QUEtiapine [SEROquel] 400 mg PO HS 30 Days #30 tab Clopidogrel [Plavix] 75 mg PO DAILY 30 Days #30 tablet QUEtiapine [SEROquel] 200 mg PO DAILY HYDROcodone/APAP 10-325MG [[place] 10-325] 1 tab PO QID Discontinued Ibuprofen [Motrin] 800 mg PO Q8H PRN PRN Reason: Pain/Headaches Discharge Medication List Clopidogrel [Plavix] 75 mg PO DAILY 30 Days #30 tablet 07/24/22 [Rx] QUEtiapine [SEROquel] 400 mg PO HS 30 Days #30 tab 07/24/22 [Rx] Cetirizine HCl [Zyrtec] 10 mg PO DAILY 12/17/22 [History] HYDROcodone/APAP 10-325MG [[place] 10-325] 1 tab PO QID 12/17/22 [History] QUEtiapine [SEROquel] 200 mg PO DAILY 12/17/22 [History] Venlafaxine HCl ER [Effexor XR] 112.5 mg PO DAILY 12/17/22 [History] carvediloL [Coreg] 3.125 mg PO BID 12/17/22 [History] hydrOXYzine pamoate [Vistaril] 25 mg PO DAILY 12/17/22 [History] Aspirin 81 mg PO DAILY #30 tab 12/18/22 [Rx] Atorvastatin [Lipitor] 40 mg PO HS #30 tab 12/18/22 [Rx] Naloxone HCl [Narcan] 4 mg NASAL DIRECTED PRN 12/26/22 [History] Pantoprazole [Protonix] 40 mg PO BID 30 Days #60 tab 12/30/22 [Rx] Sucralfate [Carafate] 1 gm PO BID 15 Days #300 ml 12/30/22 [Rx] Follow up Appointment(s)/Referral(s): Primo Moody MD [STAFF PHYSICIAN] - 1 Week Matheus Jean MD [STAFF PHYSICIAN] - 1 Week (Will need outpatient follow-up with urology for renal mass after MRI is completed) Syeda Tavera MD [STAFF PHYSICIAN] - 1 Week (Call the office to schedule an appointment for outpatient EGD) Nonstaff,Physician [Primary Care Provider] - 1-2 days Ambulatory/Diagnostic Orders: Miscellaneous Radiology Order [RAD.AMB] Time Frame: 1 Week, Facility: [facility], Location: [facility] Patient Instructions/Handouts: Hiatal Hernia (DC) Activity/Diet/Wound Care/Special Instructions: Patient does not need to follow up with Dr. Jean, but he does need a follow-up appointment with Dr. Coleman in 2-3 weeks for office cystoscopy.
[2023-01-01 14:20] VITALS: BP 148/87; PULSE 72; TEMP 98
[2023-01-02 10:36] LABS: Free Kappa Lt Chain Qnt, Serum 2.42 mg/dL (0.33-1.94)
--- NOTE | 2023-01-09 08:43 | CDI ---
Documentation Clarification Form Date: 02/09/2023 07:59:36 AM From: Saadia Oakley RN, CCDS Admit Date: 12/26/2022 08:01:00 AM Patient Name: Lele Scott Visit Number: [id number] Discharge Date: 01/01/2023 03:47:00 PM ATTENTION: The Clinical Documentation Specialists (CDI) and [facility] Coding Staff appreciate your assistance in clarifying documentation. Please respond to the clarification below the line at the bottom and electronically sign. The CDI & [facility] Coding staff will review the response and follow-up if needed. Please note: Queries are made part of the Legal Health Record. If you have any questions, please contact the author of this message via ITS. Dr. Laci Baugh Your patient has the documented symptom of chest pain on presentation to ED and H/P and subsequent progress notes. Additional clarification regarding the etiology/cause of this symptom is requested. History/Risk factors: Coronary Artery Disease, Angina, Hyperlipidemia, Myocardial Infarction, Current every day smoker. Clinical Indicators: 62-year-old male past medical history of cardiac disease present with chest pain, shortness of breath and had a diaphoretic episode just prior to arrival. EKG obtained showed sinus rhythm QTC within normal limits no significant ST segment changes. 12/26 VS: 124/91 92 18 98.2 97% RA 12/26 Labs: Troponin I <0.012 (negative X3) 12/26 Cardio: Atypical chest pain. An acute coronary event has been ruled out. 12/30 Urology: Left renal lesion appears to be a hemorrhagic cyst and no further evaluation or treatment is warranted at this. Reports Gross hematuria- Urine negative for blood. 12/31 EGD [address] report: negative for Marie's esophagus Stomach mild chronic gastritis Treatment: Serial troponins, EKG per orders Protonix 40 MG IVP Daily -12/27 Coreg 3.125 MG PO BID 12/26-01/01 Lipitor 40 MG PO HS 12/26-12/31 ASA 81 MG PO Daily 12/27-01/01 Please provide additional clarification regarding the etiology/cause of the chest pain. [ y ] Chest pain due to Chronic mild gastritis [ ] Chest pain due to Esophageal diverticulum [ ] Chest pain due to Hiatal hernia [ ] Chest pain due to Hemorrhagic renal cyst [ ] Chest pain due to other condition, please specify [ ] Unable to determine. (Template Last Revised: April 2020) MTDD
[2023-01-09 12:08] LABS: Gamma Globulin 1.06 g/dL (0.70-1.50)
--- NOTE | 2023-01-12 12:07 | CDI ---
Documentation Clarification Form Date: 01/12/2023 11:31:16 AM From: Meg Rodriguez Phone: Admit Date: 12/26/2022 08:01:00 AM Patient Name: Lele Scott Visit Number: [id number] Discharge Date: 01/01/2023 03:47:00 PM ATTENTION: The Clinical Documentation Specialists (CDI) and [facility] Coding Staff appreciate your assistance in clarifying documentation. Please respond to the clarification below the line at the bottom and electronically sign. The CDI & [facility] Coding staff will review the response and follow-up if needed. Please note: Queries are made part of the Legal Health Record. If you have any questions, please contact the author of this message via ITS. Dr. Laci Baugh Unspecified anemia is documented per Progress Note 12/27 and following Progress Notes. Additional specificity regarding the type and acuity of anemia is requested. History/Risk Factors: 62yo M, Chronic mildgastritis, melena, hematemesis, CAD w stents, HLD, bicytopenia, HTN, physicaldiverticulum, leftrenal mass, hiatal hernia BPH, Hx ofETOH intoxication Clinical indicators: Hemoglobin: 12/16 11.9 12/27 11.2 12/28 10.6 12/29 12.1 Hematocrit: 12/26 36.5 12/27 34.2 12/28 33.1 12/29 39.0 Treatment: Intermittent, mildly low plt counts andanemiain this medical record since 2014; Ironstudies, nutritional labs,inflammatorymarkers andparaproteinemiawork up ordered; Transfusefor a Hgb <7, Plt <10,000 or if symptomatic Please clarify the type and acuity of anemia: [ ] Acute blood loss anemia [ ] Acute on chronic blood loss anemia [ ] Chronic blood loss anemia [ ] Iron deficiency anemia [ y] Unable to determine [ ] Other, please specify (Template Last Revised: March 2020) MTDD
--- NOTE | 2023-02-09 11:42 | P.PCN ---
Date of Procedure: 12/31/22 Description of Procedure: PREOPERATIVE DIAGNOSIS: Gastroesophageal reflux disease. Epigastric abdominal pain POSTOPERATIVE DIAGNOSIS: Gastroesophageal reflux disease. Erosive esophagitis Gastritis. Diaphragmatic hiatal hernia Esophageal diverticulum OPERATION: Esophagogastroduodenoscopy with biopsies along the esophagus, antrum and duodenum SURGEON: Syeda Tavera MD ANESTHESIA: MAC. INDICATIONS: The patient is a 62-year-old male who presents with epigastric abdominal pain and reflux disease. Benefits and risks of the procedure were described. Informed consent was obtained. DESCRIPTION: The patient was brought into the endoscopy suite and laid in the left lateral decubitus position. An Olympus gastroscope was passed along the posterior oropharynx down to the distal esophagus where the squamocolumnar junction was encountered at 38 cm from the incisors. The stomach was entered and no bile reflux was found. Additional findings are listed below. Biopsies with cold forceps were obtained of the antrum. The first through third portion of the duodenum was examined. Retroflexion of the scope confirmed Hill grade 2 lower esophageal valve. The squamocolumnar junction demonstrated LA grade B erosive esophagitis. The stomach was desufflated. The patient tolerated the procedure well. FINDINGS: Squamocolumnar junction 38 cm from the incisors. Diaphragmatic hiatus at 40 cm. Hiatal hernia, 2 cm Hill grade 2 lower esophageal valve. LA grade B erosive esophagitis with biopsies obtained Biopsies obtained of the duodenum. Chronic gastritis with biopsies obtained. Esophageal diverticulum, distal esophagus, 6 mm RECOMMENDATIONS: Upper endoscopy as needed. Omeprazole 40 mg daily for gastritis and gastroesophageal reflux disease May benefit from additional studies including abdominal ultrasound for abdominal pain
== END 2023-01-01 15:47 | disposition home or self-care (01) ==
LOC: EC 05:42 → 3NCARDOBS 08:00 → INTOOBSV 08:00 → OBSVTOIN 08:01 → 3SCARD 08:01 → INTOOBSV 08:01 → 6NMEDSUR 10:27 → 3SCARD 17:20 → 4SSUR 18:28 → UNDODISIN 01-01 15:47
PROVIDERS: ADMIT Hospitalist; ATTEND Hospitalist
DX: R07.89 Other chest pain (principal); K21.00 Gastro-esophageal reflux disease with esophagitis, without bleeding; K29.50 Unspecified chronic gastritis without bleeding; K44.9 Diaphragmatic hernia without obstruction or gangrene; K22.5 Diverticulum of esophagus, acquired; N28.1 Cyst of kidney, acquired; R31.0 Gross hematuria; D72.819 Decreased white blood cell count, unspecified; K76.89 Other specified diseases of liver; N28.89 Other specified disorders of kidney and ureter; I10 Essential (primary) hypertension; E78.00 Pure hypercholesterolemia, unspecified; I25.10 Atherosclerotic heart disease of native coronary artery without angina pectoris; F31.9 Bipolar disorder, unspecified; F20.9 Schizophrenia, unspecified; F43.10 Post-traumatic stress disorder, unspecified; J44.9 Chronic obstructive pulmonary disease, unspecified; I25.2 Old myocardial infarction; F17.200 Nicotine dependence, unspecified, uncomplicated; Z95.5 Presence of coronary angioplasty implant and graft; Z79.02 Long term (current) use of antithrombotics/antiplatelets; Z79.82 Long term (current) use of aspirin; Z79.899 Other long term (current) drug therapy
CPT/HCPCS: 96376; 96361 ×5; 96374; 96375; 99285; 36415; 94760 ×2; 93005; 88305; 80053; 80048 ×5; 85652; 82607; 82728; 82746; 83540; 83550; 83690; 83735; 84484 ×2; 85025 ×2; 85027 ×5; 85610; 85730; 86140; 86431; 81001; 84165; 86038; 86334; 83883; 71046; 76700; 74177; 74183; 43239; G0378 ×8; J2001; J2270; J2704; C9113 ×2; A9585; Q9967

== ENCOUNTER 2023-02-22 03:38 | Emergency (ER) | payer MEDICARE, OTHER ==
[2023-02-22 04:04] VITALS: RESP 18
[2023-02-22] MEDS ORDERED: IBUPROFEN 800 MG TAB PO STA (05:35)
--- NOTE | 2023-02-22 06:16 | XR ---
EXAMINATION TYPE: XR chest 2V DATE OF EXAM: 02/22/2023 COMPARISON: Prior chest x-ray December 26, 2022 HISTORY: Body aches TECHNIQUE: Frontal and lateral views of the chest are obtained. FINDINGS: There is no focal air space opacity, pleural effusion, or pneumothorax seen. The cardiac silhouette size is stable and within normal limits. The osseous structures are intact. Surgical cli ps near the gastroesophageal junction are redemonstrated. IMPRESSION: No acute process. No significant change from prior.
[2023-02-22 06:24] LABS: African American GFR (CKD) >90 (>60 ml/min/1.73 sqM); Anion Gap 9 mmol/L; Blood Urea Nitrogen 16 mg/dL (9-20); Calcium 9.3 mg/dL (8.4-10.2); Carbon Dioxide 27 mmol/L (22-30); Chloride 104 mmol/L (98-107); Glucose 98 mg/dL (74-99); Non-African American GFR(CKD) >90 (>60 ml/min/1.73 sqM); Potassium 4.2 mmol/L (3.5-5.1); Sodium 140 mmol/L (137-145)
--- NOTE | 2023-02-22 06:28 | ED ---
General Adult HPI - General Chief complaint: Recheck/Abnormal Lab/Rx Stated complaint: SWELLING IN HANDS, PAIN Time Seen by Provider: 02/22/23 04:54 Source: patient, RN notes reviewed, old records reviewed Mode of arrival: ambulatory Limitations: no limitations - History of Present Illness Initial comments: Patient is a 62-year-old male presents emergency Department with various complaints. I reevaluated him and he was placed in a room. Viral swabs already obtained in triage. Patient has a history of polysubstance abuse. Has a history of multiple cardiac stents. He has many complaints today, complaining of generalized joint pain, fingernail pain, decreased appetite, feeling unwell. States has been ongoing for multiple days. States he came in wants to get on the bottom of whatever is causing his pain. States it is chronic but then when I asked he states it is not chronic. No known sick contacts. No congestion. Presents for generalized body aches. - Related Data Home Medications Medication Instructions Recorded Confirmed Cetirizine HCl [Zyrtec] 10 mg PO DAILY 12/17/22 12/26/22 HYDROcodone/APAP 10-325MG [[place] 1 tab PO QID 12/17/22 12/26/22 10-325] QUEtiapine [SEROquel] 200 mg PO DAILY 12/17/22 12/26/22 Venlafaxine HCl ER [Effexor XR] 112.5 mg PO DAILY 12/17/22 12/26/22 carvediloL [Coreg] 3.125 mg PO BID 12/17/22 12/26/22 hydrOXYzine pamoate [Vistaril] 25 mg PO DAILY 12/17/22 12/26/22 Naloxone HCl [Narcan] 4 mg NASAL DIRECTED PRN 12/26/22 12/26/22 Previous Rx's Medication Instructions Recorded Clopidogrel [Plavix] 75 mg PO DAILY 30 Days #30 tablet 07/24/22 QUEtiapine [SEROquel] 400 mg PO HS 30 Days #30 tab 07/24/22 Aspirin 81 mg PO DAILY #30 tab 12/18/22 Atorvastatin [Lipitor] 40 mg PO HS #30 tab 12/18/22 Pantoprazole [Protonix] 40 mg PO BID 30 Days #60 tab 12/30/22 Sucralfate [Carafate] 1 gm PO BID 15 Days #300 ml 12/30/22 Allergies Allergy/AdvReac Type Severity Reaction Status Date / Time blueberry Allergy Rash/Hives Verified 02/22/23 03:47 nitroglycerin Allergy Swelling Verified 02/22/23 03:47 Review of Systems ROS Statement: Those systems with pertinent positive or pertinent negative responses have been documented in the HPI. Review of Systems: CONST: Denies fever EYES: Denies blurry vision ENT: Denies nasal congestion C/V: Denies Chest pain RESP: Denies shortness of breath GI: Denies abdominal pain : Denies dysuria SKIN: Denies rash. MSK: Endorses body aches and pains NEURO: Denies headache ROS Other: All systems not noted in ROS Statement are negative. Past Medical History Past Medical History: Coronary Artery Disease (CAD), Chest Pain / Angina, Hyperlipidemia, Myocardial Infarction ([place]), Osteoarthritis (OA) Additional Past Medical History / Comment(s): arthritis in back and bilateral knees,hx hiatal hernia Last Myocardial Infarction Date:: 2004 History of Any Multi-Drug Resistant Organisms: None Reported Past Surgical History: Bowel Resection, Heart Catheterization With Stent Additional Past Surgical History / Comment(s): Cardiac stents x 3, bowel surgery for pinpoint hole in bowel, L knee arthroscopy, colonoscopy/benign polypectomies,hiatal hernia repair Past Anesthesia/Blood Transfusion Reactions: No Reported Reaction Date of Last Stent Placement:: 2013 Past Psychological History: Bipolar, Depression, PTSD, Schizophrenia Smoking Status: Current every day smoker Past Alcohol Use History: Occasional Past Drug Use History: Cocaine, IV Drug Use, Marijuana, Opiates, Prescription Drug Abuse - Past Family History Father Family Medical History: Respiratory Disorder Additional Family Medical History / Comment(s): Father at age 64 from Black lung disease Mother Family Medical History: Hypertension, Myocardial Infarction ([place]) Additional Family Medical History / Comment(s): Mother of an [place] at 78yrs old. Brother(s) Family Medical History: Myocardial Infarction ([place]) Additional Family Medical History / Comment(s): Patient has 10 brothers and 2 from myocardial infarction and had history of alcoholism. Sister(s) Family Medical History: Hypertension, Myocardial Infarction ([place]) Additional Family Medical History / Comment(s): He has 7 sisters that are alive with no major medical problems. He has one son that has and one daughter that is alive and okay. General Exam - General Exam Comments Initial Comments: General: Appears in no acute distress. HEAD: Normal with no signs of head trauma. EYES: PERRLA, EOMI, conjunctiva normal, no discharge. ENT: Hearing grossly intact, normal oropharynx. RESPIRATORY: Clear breath sounds bilaterally. No wheezes, rales, or rhonchi. C/V: Regular rate and rhythm. S1 and S2 auscultated, no edema, peripheral pulses 2+ and intact throughout ABD: Abd is soft, nontender, nondistended EXT: Normal range of motion, no obvious deformity SKIN: No rashes or lesions observed on exposed skin. NEURO: Alert and oriented x 4. Limitations: no limitations Course Vital Signs 02/22/23 03:44 Temperature 98.1 F Pulse Rate 78 Respiratory 18 Rate Blood Pressure 128/83 O2 Sat by Pulse 97 Oximetry Medical Decision Making - Medical Decision Making Was pt. sent in by a medical professional or institution (, PA, CLAIMS ASSISTANT, urgent care, hospital, or [facility]...) When possible be specific @ -No Did you speak to anyone other than the patient for history (EMS, parent, family, police, friend...)? What history was obtained from this source @ -No Did you review nursing and triage notes (agree or disagree)? Why? @ -I reviewed and agree with nursing and triage notes Were old charts reviewed (outside hosp., previous admission, EMS record, old EKG, old radiological studies, urgent care reports/EKG's, [facility] records)? Report findings @ -Old charts reviewed Differential Diagnosis (chest pain, altered mental status, abdominal pain women, abdominal pain men, vaginal bleeding, weakness, fever, dyspnea, syncope, headache, dizziness, GI bleed, back pain, seizure, CVA, palpatations, mental health, musculoskeletal)? @ -Body aches, viral syndrome, dehydration, this list is not all-inclusive. EKG interpreted by me (3pts min.). @ -As above X-rays interpreted by me (1pt min.). @ -Chest x-ray reveals no obvious acute cardio pulmonary process. CT interpreted by me (1pt min.). @ -None done U/S interpreted by me (1pt. min.). @ -None done What testing was considered but not performed or refused? (CT, X-rays, U/S, labs)? Why? @ -None What meds were considered but not given or refused? Why? @ -None Did you discuss the management of the patient with other professionals (professionals i.e. , ISABELLA, CLAIMS ASSISTANT, lab, RT, psych nurse, social worker clinical, commissioner of officials, teacher, security flex officer, medical case manager)? Give summary @ -No Was smoking cessation discussed for >3mins.? @ -No Was critical care preformed (if so, how long)? @ -No Were there social determinants of health that impacted care today? How? (Homelessness, low income, unemployed, alcoholism, drug addiction, tra nsportation, low edu. Level, literacy, decrease access to med. care, custodial, rehab)? @ -No Was there de-escalation of care discussed even if they declined (Discuss DNR or withdrawal of care, Hospice)? DNR status @ -No What co-morbidities impacted this encounter? (DM, HTN, Smoking, COPD, CAD, Cancer, CVA, ARF, Chemo, Hep., AIDS, mental health diagnosis, sleep apnea, morbid obesity)? @ -None Was patient admitted / discharged? Hospital course, mention meds given and route, prescriptions, significant lab abnormalities, going to OR and other pertinent info. @ -The patient's presentation and physical exam, presents with various nonspecific complaints. I did try to manage expectations as I conveyed I was uncertain if I be able to figure out why his fingernails hurt, and is having generalized body aches everywhere else. Patient was unhappy with this and states he wanted, he wasn't going to figure out what was going on. He was amenable to obtain basic labs, chest x-ray, EKG and addition of the viral swabs which were already obtained and were negative. He'll be given acetaminophen. Vital signs within acceptable limits. He was in agreement with this plan. EKG shows no signs of ischemia. Chest x-ray unremarkable. BMP within normal limits. CBC unremarkable. Reevaluation, I did update the patient. I want him to follow up with his PCP. Expressed understanding. Discharge home at this time.Patient will be given a dose of Decadron prior to discharge.. I instructed the patient to follow up with their PCP in the next 1-3 days. I explained that the patient should return to the emergency department if they experience any worsening symptoms. Strict return precautions were discussed with the patient. The patient expressed understanding of these instructions. I answered all questions that the patient had. The patient was discharged home in good condition with their prescriptions and follow up information. Undiagnosed new problem with uncertain prognosis? @ -No Drug Therapy requiring intensive monitoring for toxicity (Heparin, Nitro, Insulin, Cardizem)? @ -No Were any procedures done? @ -No Diagnosis/symptom? @ -Generalized body aches Acute, or Chronic, or Acute on Chronic? @ -Acute Uncomplicated (without systemic symptoms) or Complicated (systemic symptoms)? @ -Uncomplicated Side effects of treatment? @ -No Exacerbation, Progression, or Severe Exacerbation? @ -No Poses a threat to life or bodily function? How? (Chest pain, [place], [place], pneumonia, PE, COPD, DKA, ARF, appy, cholecystitis, CVA, Diverticulitis, Homicidal, Suicidal, threat to staff... and all critical care pts) @ -No - Lab Data Result diagrams: 02/22/23 05:39 02/22/23 05:39 Lab Results 02/22/23 02/22/23 02/22/23 Range/Units 03:50 05:39 05:39 WBC 4.8 (3.8-10.6) k/uL RBC 3.72 L (4.30-5.90) m/uL Hgb 12.1 L (13.0-17.5) gm/dL Hct 35.7 L (39.0-53.0) % MCV 96.0 (80.0-100.0) fL MCH 32.5 (25.0-35.0) pg MCHC 33.8 (31.0-37.0) g/dL RDW 13.6 (11.5-15.5) % Plt Count 169 (150-450) k/uL MPV 8.6 Sodium 140 (137-145) mmol/L Potassium 4.2 (3.5-5.1) mmol/L Chloride 104 (98-107) mmol/L Carbon Dioxide 27 (22-30) mmol/L Anion Gap 9 mmol/L BUN 16 (9-20) mg/dL Creatinine 0.69 (0.66-1.25) mg/dL Est GFR (CKD-EPI)AfAm >90 (>60 ml/min/1.73 sqM) Est GFR (CKD-EPI)NonAf >90 (>60 ml/min/1.73 sqM) Glucose 98 (74-99) mg/dL Calcium 9.3 (8.4-10.2) mg/dL Influenza Type A (PCR) Not Detected (Not Detectd) Influenza Type B (PCR) Not Detected (Not Detectd) RSV (PCR) Not Detected (Not Detectd) SARS-CoV-2 (PCR) Not Detected (Not Detectd) - EKG Data -: EKG Interpreted by Me EKG Comments: 12-lead Electrocardiogram Interpretation Note EKG was reviewed and interpreted by myself. 12-lead ECG performed at 0541 is interpreted by me as revealing normal sinus rhythm at a rate of 73 beats per mi nute. [place] is normal. MD interval is 173 ms, QRS duration is 84 ms, QTc is 426 seconds.. There were no ST or T wave abnormalities to suggest myocardial ischemia or injury. R wave progression across the precordium was satisfactory. By my interpretation this EKG is non-diagnostic for acute ischemia. Disposition Clinical Impression: Body aches Disposition: HOME SELF-CARE Condition: Good Is patient prescribed a controlled substance at d/c from ED?: No Referrals: Nonstaff,Physician [Primary Care Provider] - 1-2 days Time of Disposition: 07:00
[2023-02-22 06:53] LABS: HCT 35.7 % (39.0-53.0); HGB 12.1 gm/dL (13.0-17.5); MCH 32.5 pg (25.0-35.0); MCHC 33.8 g/dL (31.0-37.0); Mean Platelet Volume 8.6; Platelet Count 169 k/uL (150-450); RBC 3.72 m/uL (4.30-5.90); RDW 13.6 % (11.5-15.5); WBC 4.8 k/uL (3.8-10.6)
[2023-02-22] MEDS ORDERED: dexAMETHasone 2 MG TAB PO STA (07:13)
[2023-02-22 07:47] VITALS: BP 125/86; PULSE 74; TEMP 98
[2023-02-22 08:53] LABS: Basophils # (M) 0.05 k/uL (0-0.2); Eosinophils # (M) 0.05 k/uL (0-0.7); Lymphocytes # (M) 2.93 k/uL (1.0-4.8); Monocytes # (M) 0.67 k/uL (0-1.0); Neutrophils # (M) 1.15 k/uL (1.3-7.7); Neutrophils % (M) 24 %; Nucleated Red Blood Cells 0 /100 WBC (0-0); Total Cells Counted 200
[2023-02-22 08:54] LABS: RBC Morphology Normal
== END 2023-02-22 14:06 | disposition home or self-care (01) ==
LOC: EC 03:38
DX: R52 Pain, unspecified (principal); I25.10 Atherosclerotic heart disease of native coronary artery without angina pectoris; I25.2 Old myocardial infarction; F31.9 Bipolar disorder, unspecified; F20.9 Schizophrenia, unspecified; F19.10 Other psychoactive substance abuse, uncomplicated; F17.200 Nicotine dependence, unspecified, uncomplicated; F12.90 Cannabis use, unspecified, uncomplicated; F11.90 Opioid use, unspecified, uncomplicated; F14.90 Cocaine use, unspecified, uncomplicated; Z20.822 Contact with and (suspected) exposure to COVID-19; Z95.5 Presence of coronary angioplasty implant and graft; Z79.899 Other long term (current) drug therapy; Z91.018 Allergy to other foods; Z88.8 Allergy status to other drugs, medicaments and biological substances
CPT/HCPCS: 36415; 93005; 80048; 85025; 87636; 71046; 99284; J8540

== ENCOUNTER 2023-04-07 09:33 | Emergency (ER) | payer MEDICARE, OTHER ==
[2023-04-07 09:46] VITALS: BP 149/94; PULSE 87; RESP 18; TEMP 97.8
--- NOTE | 2023-04-07 10:35 | XR ---
EXAMINATION TYPE: XR chest 2V DATE OF EXAM: 04/07/2023 COMPARISON: 02/22/2023 HISTORY: 62-year-old male with cough, dizziness, weakness TECHNIQUE: PA and lateral views FINDINGS: Upper normal size. Aorta and pulmonary vasculature within normal limits. Surgical lips of the GE junc tion. Mild hyperinflation and mild interstitial prominence. Old healed right-sided rib fracture defor mities. IMPRESSION: COPD and chronic changes. No acute process seen.
--- NOTE | 2023-04-07 10:53 | ED ---
General Adult HPI - General Chief complaint: Chest Pain Stated complaint: dental pain,headache Time Seen by Provider: 04/07/23 09:46 Source: patient, RN notes reviewed Mode of arrival: ambulatory Limitations: no limitations - History of Present Illness Initial comments: 62-year-old male presents emergency department with URI symptoms. Patient states he has had bodyaches, sore throat, ear pain, congestion and cough. Symptoms have been present for the last few days he denies any current complaints chest pain states occasionally some shortness of breath. Patient states he had multiple sick contacts. He feels like he has sores in his mouth. - Related Data Home Medications Medication Instructions Recorded Confirmed Cetirizine HCl [Zyrtec] 10 mg PO DAILY 12/17/22 12/26/22 HYDROcodone/APAP 10-325MG [[place] 1 tab PO QID 12/17/22 12/26/22 10-325] QUEtiapine [SEROquel] 200 mg PO DAILY 12/17/22 12/26/22 Venlafaxine HCl ER [Effexor XR] 112.5 mg PO DAILY 12/17/22 12/26/22 carvediloL [Coreg] 3.125 mg PO BID 12/17/22 12/26/22 hydrOXYzine pamoate [Vistaril] 25 mg PO DAILY 12/17/22 12/26/22 Naloxone HCl [Narcan] 4 mg NASAL DIRECTED PRN 12/26/22 12/26/22 Previous Rx's Medication Instructions Recorded Clopidogrel [Plavix] 75 mg PO DAILY 30 Days #30 tablet 07/24/22 QUEtiapine [SEROquel] 400 mg PO HS 30 Days #30 tab 07/24/22 Aspirin 81 mg PO DAILY #30 tab 12/18/22 Atorvastatin [Lipitor] 40 mg PO HS #30 tab 12/18/22 Pantoprazole [Protonix] 40 mg PO BID 30 Days #60 tab 12/30/22 Sucralfate [Carafate] 1 gm PO BID 15 Days #300 ml 12/30/22 Allergies Allergy/AdvReac Type Severity Reaction Status Date / Time blueberry Allergy Rash/Hives Verified 02/22/23 03:47 nitroglycerin Allergy Swelling Verified 02/22/23 03:47 Review of Systems ROS Statement: Those systems with pertinent positive or pertinent negative responses have been documented in the HPI. ROS Other: All systems not noted in ROS Statement are negative. Past Medical History Past Medical History: Coronary Artery Disease (CAD), Chest Pain / Angina, Hyperlipidemia, Myocardial Infarction ([place]), Osteoarthritis (OA) Additional Past Medical History / Comment(s): arthritis in back and bilateral knees,hx hiatal hernia Last Myocardial Infarction Date:: 2004 History of Any Multi-Drug Resistant Organisms: None Reported Past Surgical History: Bowel Resection, Heart Catheterization With Stent Additional Past Surgical History / Comment(s): Cardiac stents x 3, bowel surgery for pinpoint hole in bowel, L knee arthroscopy, colonoscopy/benign polypectomies,hiatal hernia repair Past Anesthesia/Blood Transfusion Reactions: No Reported Reaction Date of Last Stent Placement:: 2013 Past Psychological History: Bipolar, Depression, PTSD, Schizophrenia Smoking Status: Current every day smoker Past Alcohol Use History: Occasional Past Drug Use History: Cocaine, IV Drug Use, Marijuana, Opiates, Prescription Drug Abuse - Past Family History Father Family Medical History: Respiratory Disorder Additional Family Medical History / Comment(s): Father at age 64 from Black lung disease Mother Family Medical History: Hypertension, Myocardial Infarction ([place]) Additional Family Medical History / Comment(s): Mother of an [place] at 78yrs old. Brother(s) Family Medical History: Myocardial Infarction ([place]) Additional Family Medical History / Comment(s): Patient has 10 brothers and 2 from myocardial infarction and had history of alcoholism. Sister(s) Family Medical History: Hypertension, Myocardial Infarction ([place]) Additional Family Medical History / Comment(s): He has 7 sisters that are alive with no major medical problems. He has one son that has and one daughter that is alive and okay. General Exam Limitations: no limitations General appearance: alert, in no apparent distress Head exam: Present: atraumatic, normocephalic, normal inspection Eye exam: Present: normal appearance, PERRL, EOMI. Absent: scleral icterus, conjunctival injection, periorbital swelling ENT exam: Present: normal exam, normal oropharynx, mucous membranes moist Neck exam: Present: normal inspection, full ROM. Absent: tenderness, meningismus, lymphadenopathy Respiratory exam: Present: normal lung sounds bilaterally. Absent: respiratory distress, wheezes, rales, rhonchi, stridor Cardiovascular Exam: Present: regular rate, normal rhythm, normal heart sounds. Absent: systolic murmur, diastolic murmur, rubs, gallop, clicks GI/Abdominal exam: Present: soft, normal bowel sounds. Absent: distended, tenderness, guarding, rebound, rigid Course Vital Signs 04/07/23 09:39 Temperature 97.8 F Pulse Rate 87 Respiratory 18 Rate Blood Pressure 149/94 O2 Sat by Pulse 98 Oximetry EKG Findings - EKG Comments: EKG Findings:: EKG performed at 9: 46 sinus rhythm rate of 79 MT 164 QRS 89 QT/QTc 384/419 - EKG Results: EKG: interpreted by DAVE Medical Decision Making - Medical Decision Making Was pt. sent in by a medical professional or institution (, PA, COMMERCIAL DEVELOPMENT MANAGER, urgent care, hospital, or half-way...) When possible be specific @ -No Did you speak to anyone other than the patient for history (EMS, parent, family, police, friend...)? What history was obtained from this source @ -No Did you review nursing and triage notes (agree or disagree)? Why? @ -I reviewed and agree with nursing and triage notes Were old charts reviewed (outside hosp., previous admission, EMS record, old EKG, old radiological studies, urgent care reports/EKG's, half-way records)? Report findings @ -No old charts were reviewed Differential Diagnosis (chest pain, altered mental status, abdominal pain women, abdominal pain men, vaginal bleeding, weakness, fever, dyspnea, syncope, headache, dizziness, GI bleed, back pain, seizure, CVA, palpatations, mental health, musculoskeletal)? @ -COVID 19, RSV, influenza, pneumonia, acute bronchitis, URI, this list is not all inclusive EKG interpreted by me (3pts min.). @ -As above X-rays interpreted by me (1pt min.). @ -Chest x-ray shows no acute cardiopulmonary process. CT interpreted by me (1pt min.). @ -None done U/S interpreted by me (1pt. min.). @ -None done What testing was considered but not performed or refused? (CT, X-rays, U/S, labs)? Why? @ -Need further test including labs patient refused patient left AMA What meds were considered but not given or refused? Why? @ -None Did you discuss the management of the patient with other professionals (professionals i.e. , PA, COMMERCIAL DEVELOPMENT MANAGER, lab, RT, psych nurse, social economist, circus roustabout, teacher, correction officer head, case management specialist)? Give summary @ -No Was smoking cessation discussed for >3mins.? @ -No Was critical care preformed (if so, how long)? @ -No Were there social determinants of health that impacted care today? How? (Homelessness, low income, unemployed, alcoholism, drug addiction, t ransportation, low edu. Level, literacy, decrease access to med. care, intermediate, rehab)? @ -No Was there de-escalation of care discussed even if they declined (Discuss DNR or withdrawal of care, Hospice)? DNR status @ -No What co-morbidities impacted this encounter? (DM, HTN, Smoking, COPD, CAD, Cancer, CVA, ARF, Chemo, Hep., AIDS, mental health diagnosis, sleep apnea, morbid obesity)? @ -None Was patient admitted / discharged? Hospital course, mention meds given and route, prescriptions, significant lab abnormalities, going to OR and other pertinent info. @ -[Patient left AGAINST MEDICAL ADVICE Undiagnosed new problem with uncertain prognosis? @ -No Drug Therapy requiring intensive monitoring for toxicity (Heparin, Nitro, Insulin, Cardizem)? @ -No Were any procedures done? @ -No Diagnosis/symptom? @ -Viral syndrome Acute, or Chronic, or Acute on Chronic? @ -Acute Uncomplicated (without systemic symptoms) or Complicated (systemic symptoms)? @ -Uncomplicated Side effects of treatment? @ -No Exacerbation, Progression, or Severe Exacerbation? @ -No Poses a threat to life or bodily function? How? (Chest pain, [place], [place], pneumonia, PE, COPD, DKA, ARF, appy, cholecystitis, CVA, Diverticulitis, Homicidal, Suicidal, threat to staff... and all critical care pts) @ -No - Lab Data Lab Results 04/07/23 04/07/23 04/07/23 Range/Units 10:06 10:06 10:50 Urine Opiates Screen Not Detected (NotDetected) Ur Oxycodone Screen Not Detected (NotDetected) Urine Methadone Screen Not Detected (NotDetected) Ur Barbiturates Screen Not Detected (NotDetected) U Tricyclic Antidepress Not Detected (NotDetected) Ur Phencyclidine Scrn Not Detected (NotDetected) Ur Amphetamines Screen Not Detected (NotDetected) U Methamphetamines Scrn Not Detected (NotDetected) U Benzodiazepines Scrn Not Detected (NotDetected) Urine Cocaine Screen Not Detected (NotDetected) U Marijuana (THC) Screen Not Detected (NotDetected) Influenza Type A (PCR) Not Detected (Not Detectd) Influenza Type B (PCR) Not Detected (Not Detectd) RSV (PCR) Not Detected (Not Detectd) SARS-CoV-2 (PCR) Not Detected (Not Detectd) Group A Strep (PCR) NOT DETECTED (Not Detectd) Disposition Clinical Impression: Viral syndrome Disposition: LEFT AGAINST MEDICAL ADVICE Is patient prescribed a controlled substance at d/c from ED?: No Referrals: None,Stated [Primary Care Provider] - 1-2 days Time of Disposition: 11:25
[2023-04-07 11:15] LABS: Amphetamine Screen,Urine Not Detected (NotDetected); Barbiturate Screen,Urine Not Detected (NotDetected); Benzodiazepines Screen,Urine Not Detected (NotDetected); Cocaine Screen,Urine Not Detected (NotDetected); Methadone Screen, Urine Not Detected (NotDetected); Opiate Screen,Urine Not Detected (NotDetected); Oxycodone Screen, Urine Not Detected (NotDetected); Phencyclidine Screen,Urine Not Detected (NotDetected); Tricyclic Antidepressant,Urine Not Detected (NotDetected); Urn Cannabinoid Scrn Not Detected (NotDetected)
== END 2023-04-07 11:45 | disposition left against medical advice (07) ==
LOC: EC 09:33
DX: B34.9 Viral infection, unspecified (principal); E78.5 Hyperlipidemia, unspecified; I25.2 Old myocardial infarction; I25.10 Atherosclerotic heart disease of native coronary artery without angina pectoris; F31.9 Bipolar disorder, unspecified; F17.200 Nicotine dependence, unspecified, uncomplicated; F14.90 Cocaine use, unspecified, uncomplicated; F12.90 Cannabis use, unspecified, uncomplicated; F15.90 Other stimulant use, unspecified, uncomplicated; Z79.899 Other long term (current) drug therapy; Z20.822 Contact with and (suspected) exposure to COVID-19; Z53.29 Procedure and treatment not carried out because of patient's decision for other reasons; Z88.8 Allergy status to other drugs, medicaments and biological substances
CPT/HCPCS: 71046; 80306; 87636; 87651; 93005; 99285

== ENCOUNTER 2023-04-08 23:32 | Emergency (ER) | payer MEDICARE, OTHER ==
[2023-04-09 00:19] VITALS: BP 109/63; PULSE 84; RESP 18; TEMP 98.2
--- NOTE | 2023-04-09 00:38 | ED ---
General Adult HPI - General Chief complaint: Extremity Injury, Lower Stated complaint: Left hip pain Time Seen by Provider: 04/08/23 23:42 Source: patient Mode of arrival: EMS Limitations: no limitations - History of Present Illness Initial comments: 62-year-old male presents to the ED with a chief complaint of left hip pain. Patient reports that this started at rest approximately 2 hours ago. Denies any recent injury or trauma. Otherwise denies any other complaint. No fever or chills. No chest pain or shortness of breath. - Related Data Home Medications Medication Instructions Recorded Confirmed Cetirizine HCl [Zyrtec] 10 mg PO DAILY 12/17/22 12/26/22 HYDROcodone/APAP 10-325MG [[place] 1 tab PO QID 12/17/22 12/26/22 10-325] QUEtiapine [SEROquel] 200 mg PO DAILY 12/17/22 12/26/22 Venlafaxine HCl ER [Effexor XR] 112.5 mg PO DAILY 12/17/22 12/26/22 carvediloL [Coreg] 3.125 mg PO BID 12/17/22 12/26/22 hydrOXYzine pamoate [Vistaril] 25 mg PO DAILY 12/17/22 12/26/22 Naloxone HCl [Narcan] 4 mg NASAL DIRECTED PRN 12/26/22 12/26/22 Previous Rx's Medication Instructions Recorded Clopidogrel [Plavix] 75 mg PO DAILY 30 Days #30 tablet 07/24/22 QUEtiapine [SEROquel] 400 mg PO HS 30 Days #30 tab 07/24/22 Aspirin 81 mg PO DAILY #30 tab 12/18/22 Atorvastatin [Lipitor] 40 mg PO HS #30 tab 12/18/22 Pantoprazole [Protonix] 40 mg PO BID 30 Days #60 tab 12/30/22 Sucralfate [Carafate] 1 gm PO BID 15 Days #300 ml 12/30/22 Allergies Allergy/AdvReac Type Severity Reaction Status Date / Time blueberry Allergy Rash/Hives Verified 04/09/23 00:18 nitroglycerin Allergy Swelling Verified 04/09/23 00:18 Review of Systems ROS Statement: Those systems with pertinent positive or pertinent negative responses have been documented in the HPI. ROS Other: All systems not noted in ROS Statement are negative. Past Medical History Past Medical History: Coronary Artery Disease (CAD), Chest Pain / Angina, Hyperlipidemia, Myocardial Infarction (NH), Osteoarthritis (OA) Additional Past Medical History / Comment(s): arthritis in back and bilateral knees,hx hiatal hernia Last Myocardial Infarction Date:: 2004 History of Any Multi-Drug Resistant Organisms: None Reported Past Surgical History: Bowel Resection, Heart Catheterization With Stent Additional Past Surgical History / Comment(s): Cardiac stents x 3, bowel surgery for pinpoint hole in bowel, L knee arthroscopy, colonoscopy/benign polypectomies,hiatal hernia repair Past Anesthesia/Blood Transfusion Reactions: No Reported Reaction Date of Last Stent Placement:: 2013 Past Psychological History: Bipolar, Depression, PTSD, Schizophrenia Smoking Status: Current every day smoker Past Alcohol Use History: Occasional Past Drug Use History: Cocaine, IV Drug Use, Marijuana, Opiates, Prescription Drug Abuse - Past Family History Father Family Medical History: Respiratory Disorder Additional Family Medical History / Comment(s): Father at age 64 from Black lung disease Mother Family Medical History: Hypertension, Myocardial Infarction ([place]) Additional Family Medical History / Comment(s): Mother of an NH at 78yrs old. Brother(s) Family Medical History: Myocardial Infarction ([place]) Additional Family Medical History / Comment(s): Patient has 10 brothers and 2 from myocardial infarction and had history of alcoholism. Sister(s) Family Medical History: Hypertension, Myocardial Infarction ([place]) Additional Family Medical History / Comment(s): He has 7 sisters that are alive with no major medical problems. He has one son that has and one daughter that is alive and okay. General Exam Limitations: no limitations General appearance: alert, in no apparent distress Eye exam: Present: normal appearance Neck exam: Present: normal inspection Respiratory exam: Present: normal lung sounds bilaterally Cardiovascular Exam: Present: regular rate, normal rhythm GI/Abdominal exam: Present: soft Extremities exam: Present: other (Does have tenderness to palpation of the left hip/left femur.) Neurological exam: Present: alert, oriented X3 Skin exam: Present: warm, dry Course Vital Signs 04/09/23 00:14 Temperature 98.2 F Pulse Rate 84 Respiratory 18 Rate Blood Pressure 109/63 O2 Sat by Pulse 100 Oximetry Medical Decision Making - Medical Decision Making Was pt. sent in by a medical professional or institution (, PA, PROPERTY MAINTENANCE SUPERVISOR, urgent care, hospital, or [facility]...) When possible be specific @ -No Did you speak to anyone other than the patient for history (EMS, parent, family, police, friend...)? What history was obtained from this source @ -No Did you review nursing and triage notes (agree or disagree)? Why? @ -I reviewed and agree with nursing and triage notes Were old charts reviewed (outside hosp., previous admission, EMS record, old EKG, old radiological studies, urgent care reports/EKG's, [facility] records)? Report findings @ -Review of prior visit here shows patient was here for URI symptoms. At this time patient reports those symptoms had resolved. Differential Diagnosis (chest pain, altered mental status, abdominal pain women, abdominal pain men, vaginal bleeding, weakness, fever, dyspnea, syncope, headache, dizziness, GI bleed, back pain, seizure, CVA, palpatations, mental health, musculoskeletal)? @ -Differential Musculoskeletal Muscular strain, contusion, ligament sprain, fracture, arthritis, septic arthritis, bursitis, cellulitis, muscle spasm, nerve compression, DVT, arterial occlusion, herpes zoster, electrolyte abnormality, tumor.... This is not meant to be in all inclusive list EKG interpreted by me (3pts min.). @ -None X-rays interpreted by me (1pt min.). @ -X-ray of the pelvis of the left femur interpreted me showing no evidence of acute finding. CT interpreted by me (1pt min.). @ -None done U/S interpreted by me (1pt. min.). @ -None done What testing was considered but not performed or refused? (CT, X-rays, U/S, labs)? Why? @ -None What meds were considered but not given or refused? Why? @ -Patient was to be given Tylenol but he refused this. Did you discuss the management of the patient with other professionals (professionals i.e. , ISABELLA, PROPERTY MAINTENANCE SUPERVISOR, lab, RT, psych nurse, social services coordinator, marine railway operator, teacher, safety and security officer, rn case management)? Give summary @ -No Was smoking cessation discussed for >3mins.? @ -No Was critical care preformed (if so, how long)? @ -No Were there social determinants of health that impacted care today? How? (Homelessness, low income, unemployed, alcoholism, drug addiction, transportation, low edu. Level, literacy, decrease access to med. care, assisted, rehab)? @ -No Was there de-escalation of care discussed even if they declined (Discuss DNR or withdrawal of care, Hospice)? DNR status @ -No What co-morbidities impacted this encounter? (DM, HTN, Smoking, COPD, CAD, Cancer, CVA, ARF, Chemo, Hep., AIDS, mental health diagnosis, sleep apnea, morbid obesity)? @ -None Was patient admitted / discharged? Hospital course, mention meds given and route, prescriptions, significant lab abnormalities, going to OR and other pertinent info. @ -Discharge 62-year-old male presenting to the ED with a chief complaint of left hip pain. Imaging studies at this time unremarkable. At this time patient has no other complaints. Discharged home in stable condition. Symptoms likely musculoskeletal in nature. Advised supportive care. Undiagnosed new problem with uncertain prognosis? @ -No Drug Therapy requiring intensive monitoring for toxicity (Heparin, Nitro, Insulin, Cardizem)? @ -No Were any procedures done? @ -No Diagnosis/symptom? @ -Left hip pain Acute, or Chronic, or Acute on Chronic? @ -Acute Uncomplicated (without systemic symptoms) or Complicated (systemic symptoms)? @ -Uncomplicated Side effects of treatment? @ -No Exacerbation, Progression, or Severe Exacerbation? @ -No Poses a threat to life or bodily function? How? (Chest pain, USA, NH, pneumonia, PE, COPD, DKA, ARF, appy, cholecystitis, CVA, Diverticulitis, Homicidal, Suicidal, threat to staff... and all critical care pts) @ -No Disposition Clinical Impression: Left hip pain Disposition: HOME SELF-CARE Condition: Good Instructions (If sedation given, give patient instructions): Hip Pain (ED) Additional Instructions: Please return to the Emergency Department if symptoms worsen or any other concerns. Please follow-up with your PCP. Is patient prescribed a controlled substance at d/c from ED?: No Referrals: None,Stated [Primary Care Provider] - 1-2 days Time of Disposition: 02:16
--- NOTE | 2023-04-09 01:49 | XR ---
EXAM: XR Left Femur, 2 Views CLINICAL HISTORY: ITS.REASON XR Reason: r/o fx TECHNIQUE: Frontal and lateral views of the left femur. COMPARISON: No relevant prior studies available. FINDINGS: Bones/joints: Mild degenerative changes left hip. Osteopenia. Patellar spurring. No acute fracture. No dislocation. Soft tissues: Unremarkable. IMPRESSION: No acute findings in the left femur.
--- NOTE | 2023-04-09 01:51 | XR ---
EXAM: XR Pelvis, 1 or 2 Views CLINICAL HISTORY: ITS.REASON XR Reason: r/o fx TECHNIQUE: Frontal view of the pelvis. COMPARISON: CT 12/28/2022 FINDINGS: Bones/joints: Mild degenerative changes in the hips. Degenerative changes in the sacroiliac joints. No acute fracture. No dislocation. Soft tissues: Unremarkable. Vasculature: Calcified pelvic phleboliths. IMPRESSION: No acute findings in the pelvis.
[2023-04-09] MEDS: MORPHINE SULFATE 4 MG/ML SYRINGE IVP STA (02:36)
[2023-04-09] MEDS: ACETAMINOPHEN TAB 500 MG TAB PO STA (02:39)
== END 2023-04-09 04:00 | disposition home or self-care (01) ==
LOC: EC 23:32
DX: M25.552 Pain in left hip (principal); I25.10 Atherosclerotic heart disease of native coronary artery without angina pectoris; I25.2 Old myocardial infarction; M19.90 Unspecified osteoarthritis, unspecified site; F31.9 Bipolar disorder, unspecified; F12.90 Cannabis use, unspecified, uncomplicated; F17.200 Nicotine dependence, unspecified, uncomplicated; Z79.899 Other long term (current) drug therapy; Z91.018 Allergy to other foods
CPT/HCPCS: 72170; 73552; 99284; 96374; J2270

== ENCOUNTER 2023-06-22 00:13 | Inpatient (IN) | payer MEDICARE, MEDICAID ==
[~2023-06-22 00:13] MED LIST changes: +ACETAMINOPHEN TAB 325 MG TAB PO PRN; -DEXAMETHASONE SOD PHOSPHATE 4 MG/ML 1 ML VIAL IV ONE; +HALOPERIDOL LACTATE 5 MG/ML 1 ML VIAL IM PRN; -HEPARIN SODIUM,PORCINE/PF 5,000 UNIT/0.5 ML SYRINGE SQ PRN; -HYDROmorphone 0.5 MG/0.5 ML SYRINGE IVP PRN; -LACTATED RINGERS 1,000 ML IV SCH; +LORazepam 2 MG/ML INJ IM PRN; -MIDAZOLAM 2 MG/2 ML VIAL IV PRN; -ONDANSETRON 4 MG/2 ML VIAL IVP ONE; -Pre Op ABX Message 1 EACH MISC MISCELLANE ONE; -SCOPOLAMINE 1.5MG/72HR PATCH TRANSDERM ONE
[2023-06-22] MEDS ORDERED: MAG HYDROX/AL HYDROX/SIMETH 355 ML BOTTLE PO PRN (08:00)
[2023-06-22] MEDS: NICOTINE 21MG/24HR PATCH TRANSDERM SCH (08:32)
[2023-06-22] MEDS: haloperidoL 5 MG TAB PO PRN (08:33)
[2023-06-22] MEDS: LORazepam 1 MG TAB PO PRN (08:33)
[2023-06-22] MEDS ORDERED: MAGNESIUM HYDROXIDE 2,400 MG/30 ML CUP PO PRN (09:00)
--- NOTE | 2023-06-22 09:51 | P.HP ---
Psychiatric H&P - . H&P Date: 06/22/23 History & Physical: Allergies Allergy/AdvReac Type Severity Reaction Status Date / Time blueberry Allergy Rash/Hives Verified 04/09/23 00:18 nitroglycerin Allergy Swelling Verified 04/09/23 00:18 Vital Signs Temp 98.6 F 06/22/23 02:58 Pulse 68 06/22/23 02:58 Resp 18 06/22/23 02:58 BP 124/92 06/22/23 02:58 Pulse Ox 98 06/22/23 02:58 FiO2 Intake & Output 06/21/23 06/22/23 06/22/23 18:59 06:59 18:59 Weight 66.848 kg 06/22/23 09:50 Psychiatric Evaluation Identifying Data: Mr. Scott is a 64 years old, single BM, who lives in [place], [place] in an apartment by himself. Chief Complaint: I am suicidal and hearing voices History of Psychiatric Illness- The patient noted that he has been hearing voices to kill himself. He also noted that he ia agitated and angry. The patient noted that he was in a rage and destroying things in hi apartment. The neighbor called the police and brought patient to the hospital. The patient sated that beside hearing voices, he also feels paranoid. He feels people are out to get him, watch him and talk about him. He noted that his depressive symptomatology consists of feeling sad, anger, rage, social isolation, loss of interest, feeling of worthlessness and worthlessness. He noted that he has been like this for some time. He noted that recently he started hearing voices and developed thoughts of hurting self and others. He feels that his medications are not working. He saw his out-pt psychiatrist 2 weeks ago but did not mention anything to him. He indicated being here in the past. He takes Seroquel 250 mg at bedtime and Effexor 75 mg daily. Confirmed by [id number] The patients psychiatric illness started at age 14. He has been going to out-pt treatment since then off and on. He has had 4-5 admissions since his illness began. His last admission was to this hospital 2 years ago with similar symptoms. Past psychiatric history: As stated above. Leading questions: The patient denied /admitted to Depression and Anxiety. Admitted to self-harm and thoughts of hurting other people. HI. Admitted to hearing voices and feeling paranoid. Drugs and alcohol history: Polysubstance abuse. Past Medical history: CHD, HTN, Osteoarthritis. Family History of Psychiatric Disorder: The patient noted that his two brothers and one sister suffer from Schizophrenia. Social History and Family History: The patient was born and raised in [place], [place]. He grew-up with 9 brothers and 8 sisters. He finished [employer]. His longest job was at [employer] for 12 years. He was once for 25 years. He had two 2 children, son and a daughter. He son dies last year OTC: None. Allergies: Nitroglycerine. Objective: MSE: Alert and attentive. Orientation times three Dressed and Groomed: Appropriately. Pleasant and cooperative. Psychomotor Activity: Normal. Speech: Normal in tone, quality, and quantity. Mood: Depressed, anxious, and angry. Affect: Irritable and constricted SI or HI: The patient has thoughts of hurting self and others. Perceptual disturbance: The patient has been hearing voices. Thought Content: The patient has paranoid thoughts. Thought Process: Normal. Cognition: Intact Judgment and Insight: Poor. AIMS: Normal Labs: None available, ordered. Diagnosis: Major Depressive Disorder, severe, recurrent with Psychosis Plan and Recommendations: Continue current Medications. Increase Seroquel to 300 mg and Effexor to 150 mg. Monitor MS and side effects of medications and adjust medications accordingly. Provide supportive psychotherapy and psychoeducation. The patient provided Substance abuse counseling. Smoke cessation therapy. The patient to see a therapist on a regular basis once a week/ attend [facility]. CBC with Diff, CMP, TSH, Lipid Profile, HbA1c, EKG, ordered. Medication Consent with explanation of risk/benefits and side effects: Explained and obtained.
--- NOTE | 2023-06-23 02:59 | P.PN ---
Progress Note - Text Progress Note Date: 06/22/23 patient refused evaluation at this time , and refused to leave his room, 1130pm ThursdayJune 21
[2023-06-23] MEDS: QUEtiapine 50 MG TAB PO STA (11:02)
[2023-06-23] MEDS: VENLAFAXINE HCL 50 MG TAB PO STA (11:02)
--- NOTE | 2023-06-23 16:44 | P.PN ---
Progress Note - Text Progress Note Date: 06/23/23 In-Patient Follow-up Chief Complaint: I am anxious and restless Subjective: The patient noted that he is hearing voices, feeling restless and anxious. He has been resumed on his medications. The does is to be titrated further. Explained patient. He understood and accepted the recommendations. The patient minimal interaction with staff and peers. He has not been attending [facility] activities. He was encouraged to be visible on the war and attend the milieu. Leading questions: The patient admitted to Depression and Anxiety. Denied SI or HI. Admitted to symptoms consistent with psychosis Sleep and Appetite: Fair. Interim History: Behavioral Changes: PRN meds/isolation/restraints/ change in status: None. Change in medical condition: No change. Change in medications: No change. Side effects from Medications: None. Objective- MSE: Alert and attentive. Orientation times three. Dressed and Groomed: Appropriately. Pleasant and cooperative. Psychomotor Activity: Normal. Speech: Normal in tone, quality, and quantity. Mood: Anxious. Affect: Worried and concerned. SI or HI: None. Perceptual disturbance: Hearing voices. Thought Content: No paranoia or other delusional thinking noted. Thought Process: Normal. Cognition: Intact Judgment and Insight: Fair. AIMS: Normal. Labs: None. Ordered. Diagnosis: No change Plan and recommendation: Continue current Medications. Monitor MS and side effects of medications and adjust medications accordingly. Provide supportive psychotherapy. The patient provided psychoeducation. The patient provided Substance abuse counseling. Smoke cessation therapy. The patient to continue attending the [facility] activities. CBC with Diff, CMP, TSH, Lipid Profile, HbA1c, EKG ordered. Medication Consent with explanation of risk/benefits and side effects: Explained and obtained.
[2023-06-23] MEDS: QUEtiapine 100 MG TAB PO SCH (21:10)
[2023-06-23] MEDS: IBUPROFEN 600 MG TAB PO PRN (21:11)
--- NOTE | 2023-06-24 06:52 | P.MDCNMH ---
History of Present Illness H&P Date: 06/24/23 Chief Complaint: Medical evaluation 62-year-old male with complex past medical history, also has depression PTSD and schizophrenia Patient is here for psychiatric evaluation due to auditory hallucinations telling him to kill himself, feeling paranoid. Patient could not verify his home medications, he reports that he takes a lot of them and was requesting that they be continued he denies any past medical history however by performing chart review seems like patient has coronary artery disease, hypertension and COPD last evaluation by cardiology in December 2022 he was continued on atorvastatin, Plavix, aspirin, and Coreg. Patient also had episodes of hematemesis GI workup did not reveal any active bleeding or ulcers in the stomach patient continued to be on Protonix. Echocardiogram performed December 2022 showed preserved left ventricular ejection fraction Most recent left heart cath was done in June 2022 showed mild in-stent restenosis of LAD for which medical management was recommended Currently he is only concerned regarding his chronic low back pain and requesting pain medications for that. Denies any focal neurodeficits Patient admits to tobacco smoking only 1 cigarette a day denies any illicit drugs or heavy alcohol review of systems Pertinent positives as noted in HPI. All other systems were reviewed and are negative on exam Constitutional: No acute distress, cooperative Eyes: Anicteric sclerae, moist conjunctiva, Pupils equal round reactive to light ENMT: NC/AT Oropharynx clear, no erythema, or exudates Neck: Supple, no masses, or JVD No carotid bruits No thyromegaly Lungs: Clear to auscultation Clear to percussion Normal respiratory effort, no accessory muscle use Cardiovascular: Heart regular in rate and rhythm, No murmurs, gallops, or rubs No peripheral edema Abdominal: Soft Nontender, no guarding, rebound or rigidity Abdomen moving with respiration Normoactive bowel sounds Extremities: No digital cyanosis No clubbing Pedal pulses intact and symmetrical Radial pulses intact and symmetrical No calf tenderness Psychiatric: Alert and oriented to person, place and time . Neuro Muscles Strength 5/5 in all 4 extremities Sensation to light touch grossly present throughout Cranial nerves II-XII grossly intact Past Medical History Past Medical History: Coronary Artery Disease (CAD), Chest Pain / Angina, Hyperlipidemia, Myocardial Infarction ([place]), Osteoarthritis (OA) Additional Past Medical History / Comment(s): arthritis in back and bilateral knees,hx hiatal hernia Last Myocardial Infarction Date:: 2004 History of Any Multi-Drug Resistant Organisms: Other MDRO Past Surgical History: Bowel Resection, Heart Catheterization With Stent Additional Past Surgical History / Comment(s): Cardiac stents x 3, bowel surgery for pinpoint hole in bowel, L knee arthroscopy, colonoscopy/benign polypectomies,hiatal hernia repair Past Anesthesia/Blood Transfusion Reactions: No Reported Reaction Date of Last Stent Placement:: 2013 Smoking Status: Current some day smoker - Past Family History Father Family Medical History: Respiratory Disorder Additional Family Medical History / Comment(s): Father at age 64 from Black lung disease Mother Family Medical History: Hypertension, Myocardial Infarction ([place]) Additional Family Medical History / Comment(s): Mother of an [place] at 78yrs old. Brother(s) Family Medical History: Myocardial Infarction ([place]) Additional Family Medical History / Comment(s): Patient has 10 brothers and 2 from myocardial infarction and had history of alcoholism. Sister(s) Family Medical History: Hypertension, Myocardial Infarction ([place]) Additional Family Medical History / Comment(s): He has 7 sisters that are alive with no major medical problems. He has one son that has and one daughter that is alive and okay. Medications and Allergies Home Medications Medication Instructions Recorded Confirmed Type Clopidogrel [Plavix] 75 mg PO DAILY 30 Days #30 tablet 07/24/22 12/26/22 Rx QUEtiapine [SEROquel] 400 mg PO HS 30 Days #30 tab 07/24/22 12/26/22 Rx Cetirizine HCl [Zyrtec] 10 mg PO DAILY 12/17/22 12/26/22 History HYDROcodone/APAP 10-325MG [[place] 1 tab PO QID 12/17/22 12/26/22 History 10-325] QUEtiapine [SEROquel] 200 mg PO DAILY 12/17/22 12/26/22 History Venlafaxine HCl ER [Effexor XR] 112.5 mg PO DAILY 12/17/22 12/26/22 History carvediloL [Coreg] 3.125 mg PO BID 12/17/22 12/26/22 History hydrOXYzine pamoate [Vistaril] 25 mg PO DAILY 12/17/22 12/26/22 History Aspirin 81 mg PO DAILY #30 tab 12/18/22 12/26/22 Rx Atorvastatin [Lipitor] 40 mg PO HS #30 tab 12/18/22 12/26/22 Rx Naloxone HCl [Narcan] 4 mg NASAL DIRECTED PRN 12/26/22 12/26/22 History Pantoprazole [Protonix] 40 mg PO BID 30 Days #60 tab 12/30/22 Rx Sucralfate [Carafate] 1 gm PO BID 15 Days #300 ml 12/30/22 Rx Allergies Allergy/AdvReac Type Severity Reaction Status Date / Time blueberry Allergy Rash/Hives Verified 04/09/23 00:18 nitroglycerin Allergy Swelling Verified 04/09/23 00:18 Physical Exam Vitals: Vital Signs Temp Pulse Resp BP Pulse Ox 06/23/23 07:32 98.0 F 57 L 17 98/52 98 Cranial Nerve Examination - Cranial Nerves Cranial Nerve II- Optic: Intact Cranial Nerve III- Oculomotor: Intact Cranial Nerve IV- Trochlear: Intact Cranial Nerve V- Trigeminal: Intact Cranial Nerve - Abducens: Intact Cranial Nerve VII- Facial: Intact Cranial Nerve VIII- Auditory: Intact Cranial Nerve IX- Glossopharyngeal: Intact Cranial Nerve X- Vagus: Intact Cranial Nerve XI- Accessory: Intact Cranial Nerve XII- Hypoglossal: Intact Assessment and Plan Assessment: Schizophrenia with psychosis Management per psych Coronary artery disease status post stents Continue with aspirin, Plavix, statin Most recent left heart cath June 2022 showed mild in-stent restenosis cardiology recommended medical management Echocardiogram December 2022 showed preserved left ventricular ejection fraction Hypertension, controlled Continue with Coreg Hyperlipidemia Continue statin History of gastritis Continue with Protonix 40 mg p.o. twice daily No labs in chart to be reviewed Patient stable from medical standpoint Thank you for this consultation
[2023-06-24] MEDS ORDERED: IPRATROPIUM-ALBUTEROL 3 ML NEB INHALATION PRN (07:03)
[2023-06-24] MEDS ORDERED: ALBUTEROL INHALER 60 PUFF/8 GM INHALER (MHU) INHALATION PRN (07:38)
[2023-06-24] MEDS: PANTOPRAZOLE 40 MG TABLET PO SCH (08:07)
[2023-06-24] MEDS: ASPIRIN 81 MG PO SCH (08:07)
[2023-06-24] MEDS: CLOPIDOGREL 75 MG TAB PO SCH (08:14)
[2023-06-24] MEDS: carvediloL 3.125 MG TAB PO SCH (08:14)
[2023-06-24 14:06] LABS: ALT 16 U/L (4-49); AST 23 U/L (17-59); African American GFR (CKD) >90 (>60 ml/min/1.73 sqM); Albumin 4.1 g/dL (3.5-5.0); Alkaline Phosphatase 45 U/L (38-126); Anion Gap 5 mmol/L; Blood Urea Nitrogen 17 mg/dL (9-20); Calcium 9.6 mg/dL (8.4-10.2); Carbon Dioxide 28 mmol/L (22-30); Chloride 107 mmol/L (98-107); Glucose 94 mg/dL (74-99); Non-African American GFR(CKD) >90 (>60 ml/min/1.73 sqM); Potassium 4.3 mmol/L (3.5-5.1); Sodium 140 mmol/L (137-145); Total Protein 7.2 g/dL (6.3-8.2)
[2023-06-24 14:08] LABS: HCT 48.4 % (39.0-53.0); HGB 14.7 gm/dL (13.0-17.5); MCH 31.6 pg (25.0-35.0); MCHC 30.5 g/dL (31.0-37.0); MCV 103.6 fL (80.0-100.0); Macrocytosis Slight; Mean Platelet Volume 9.1; Platelet Count 182 k/uL (150-450); RBC 4.67 m/uL (4.30-5.90); RDW 13.5 % (11.5-15.5); WBC 3.9 k/uL (3.8-10.6)
[2023-06-24] MEDS: VENLAFAXINE HCL ER 75 MG CAP PO STA (14:11)
[2023-06-24 15:20] LABS: Eosinophils # (M) 0.08 k/uL (0-0.7); Lymphocytes # (M) 2.18 k/uL (1.0-4.8); Monocytes # (M) 0.35 k/uL (0-1.0); Neutrophils # (M) 1.29 k/uL (1.3-7.7); Neutrophils % (M) 33 %; Nucleated Red Blood Cells 0 /100 WBC (0-0); Total Cells Counted 100
[2023-06-24 19:26] LABS: LDL Cholesterol,Calculated 87.2 mg/dL (0.0-131.0)
[2023-06-24] MEDS: ATORVASTATIN 40 MG TAB PO SCH (20:41)
[2023-06-24] MEDS: QUEtiapine 200 MG TAB PO SCH (20:42)
--- NOTE | 2023-06-24 21:06 | P.PN ---
Progress Note - Text Progress Note Date: 06/24/23 In-Patient Follow-up Chief Complaint: I got upset; he was irritating me Subjective: The patient noted that he was disturbed by his roommate at night. He could not sleep. He was wondering about his medications too. He indicated that he did not get his morning medications. He was told that he is getting Seroquel and Effexor. He was explained that his medications are being titrated. The patient provided support and reassurance. He settled down. He had no other complaints. The patient that he will be attending [facility] activities. Encouraged home to stay out his room during the day time so he can sleep better at night. Leading questions: The patient admitted to Depression and Anxiety. Denied SI or HI. Denied symptoms consistent with psychosis Sleep and Appetite: Interim History: Behavioral Changes: PRN meds/isolation/restraints/ change in status: None. Change in medical condition: No change. Change in medications: Effexor added to the treatment. Seroquel increased to 200 mg. Side effects from Medications: None. Objective- MSE: Alert and attentive. Orientation times three. Dressed and Groomed: Appropriately. Pleasant and cooperative. Psychomotor Activity: Normal. Speech: Normal in tone, quality, and quantity. Mood: Upset and depressed. Affect: Irritable. SI or HI: None. Perceptual disturbance: None. Thought Content: No paranoia or other delusional thinking noted. Thought Process: Normal. Cognition: Intact Judgment and Insight: Good AIMS: Normal. Labs: No new labs. Diagnosis: No change. Plan and recommendation: Continue current Medications adjusted. Monitor MS and side effects of medications and adjust medications accordingly. Provide supportive psychotherapy. The patient provided psychoeducation. The patient provided Substance abuse counseling. Smoke cessation therapy. The patient to continue attending the [facility] activities. Medication Consent with explanation of risk/benefits and side effects: Explained and obtained.
[2023-06-25] MEDS: VENLAFAXINE HCL ER 75 MG CAP PO SCH (08:01)
--- NOTE | 2023-06-25 20:26 | P.PN ---
Progress Note - Text Progress Note Date: 06/25/23 In-Patient Follow-up Chief Complaint: I dont know what to say Subjective: The patient noted that he is feeling better. He wants medications to work. He feels tired. He tends to isolate himself. The patient noted that he is attending groups. He is compliant with medications. No side effects reported. Leading questions: The patient admitted to Depression and Anxiety. Denied SI or HI. Denied symptoms consistent with psychosis Sleep and Appetite: Fair. Interim History: Behavioral Changes: PRN meds/isolation/restraints/ change in status: None. Change in medical condition: No change. Change in medications: No change. Side effects from Medications: None. Objective- MSE: Alert and attentive. Orientation times three. Dressed and Groomed: Appropriately. Pleasant and cooperative. Psychomotor Activity: Normal. Speech: Normal in tone, quality, and quantity. Mood: Depressed and anxious. Affect: Constricted and blunted SI or HI: None. Perceptual disturbance: None. Thought Content: No paranoia or other delusional thinking noted. Thought Process: Normal. Cognition: Intact Judgment and Insight: Poor AIMS: Normal. Labs: No new labs. Diagnosis: No change. Plan and recommendation: Continue current Medications. Monitor MS and side effects of medications and adjust medications accordingly. Provide supportive psychotherapy. The patient provided psychoeducation. The patient provided Substance abuse counseling. Smoke cessation therapy. The patient to continue attending the nayak activities. Medication Consent with explanation of risk/benefits and side effects: Explained and obtained.
--- NOTE | 2023-06-26 17:47 | P.PN ---
Progress Note - Text Progress Note Date: 06/26/23 In-Patient Follow-up Chief Complaint: I am tired Subjective: The patient noted that he went for breakfast and then stayed out of the room but came because he was feeling tired. The patient noted that he is feeling better but thinks that he needs some more healing. He noted that he is going to groups and d has been interacting with staff and peers. He has been compliant with treatment recommendations. No side effects of medications reported. Leading questions: The patient admitted to Depression and Anxiety. Denied SI or HI. Denied symptoms consistent with psychosis Sleep and Appetite: Fair Interim History: Behavioral Changes: PRN meds/isolation/restraints/ change in status: None Change in medical condition: No change. Change in medications: No change. Side effects from Medications: None. Objective- MSE: Alert and attentive. Orientation times three. Dressed and Groomed: Appropriately. Pleasant and cooperative. Psychomotor Activity: Normal. Speech: Normal in tone, quality, and quantity. Mood: I am ok Affect: Subdued and blunted. SI or HI: None. Perceptual disturbance: None. Thought Content: No paranoia or other delusional thinking noted. Thought Process: Normal. Cognition: Intact Judgment and Insight: Good AIMS: Normal. Labs: No new labs Vital signs: Diagnosis: No change Plan and recommendation: Continue current Medications. Monitor MS and side effects of medications and adjust Medications accordingly. Provide supportive psychotherapy. The patient provided psychoeducation. The patient provided Substance abuse counseling. Smoke cessation therapy. The patient to continue attending the nayak activities. Medication Consent with explanation of risk/benefits and side effects: Explained and obtained.
--- NOTE | 2023-06-27 11:59 | P.PN ---
Subjective Progress Note Date: 06/27/23 Principal diagnosis: Diagnosis: Major Depressive Disorder, severe, recurrent with Psychosis chronic grief reaction Alcohol use disorder by history Patient Name: Lele Scott Date of : 1960 Patient Status: Inpatient Attending Provider: Anthony Suarez Date: 06/27/23 Initialization Date: 06/22/23 09:50 subjective data: The patient was seen chart was reviewed and case discussed with the nursing staff Patient reports that he's been here for depression History of that is going through significant losses recently were his brother approximately the recently He says that he lives alone His states that he also relives regarding his son's loss who was killed by his girlfriend some years ago He says there is retired and also has had issues with alcohol use patient currently denies any auditory or visual hallucinations He denies any feelings of paranoia anger and states that he started to think somewhat more positively His last admission was to this hospital 2 years ago with similar symptoms. MSE: Alert and attentive. Orientation times three. Dressed and Groomed: Appropriately. has an earring in the right ear Pleasant and cooperative. Psychomotor Activity: Normal. Speech: Normal in tone, quality, and quantity. Mood: I am ok Affect: Subdued and blunted. SI or HI: None. Perceptual disturbance: None. Thought Content: No paranoia or other delusional thinking noted. Thought Process: Normal. Cognition: Intact Judgment and Insight: Good AIMS: Normal. Labs: No new labs Vital signs: Diagnosis: major depressive disorder with psychosis Plan and recommendation: Continue current Medications. Monitor MS and side effects of medications and adjust Medications accordingly. Provide supportive psychotherapy. The patient provided psychoeducation. The patient provided Substance abuse counseling. Smoke cessation therapy. The patient to continue attending the nayak activities. Medication Consent with explanation of risk/benefits and side effects: Explained and obtained. Leland Cohen M.D. Objective - Vital Signs Vital signs: Vital Signs Temp 98.2 F 06/27/23 06:27 Pulse 63 06/27/23 06:27 Resp 18 06/27/23 06:27 BP 107/65 06/27/23 06:27 Pulse Ox 98 06/23/23 07:32 FiO2 - Labs CBC & Chem 7: 06/24/23 12:40 06/24/23 12:40
--- NOTE | 2023-06-28 11:07 | P.PN ---
Subjective Progress Note Date: 06/28/23 Principal diagnosis: Diagnosis: Major Depressive Disorder, severe, recurrent with Psychosis chronic grief reaction Alcohol use disorder by history Patient Name: Lele Scott Date of : 1960 Patient Status: Inpatient Attending Provider: Anthony Suarez Date: 06/28/23 Initialization Date: 06/22/23 09:50 subjective data: The patient was seen chart was reviewed and case discussed with the nursing staff the patient was seen in his room where he was still laying in bed at 10 AM in the morning When approached patient was somewhat hard to He was cooperative but did not verbalize to any great extent Patient denies that he is having any issues or concerns Patient denies that he is having any side effects He denies any auditory or visual hallucinations He does not express any other issues or concerns and states that overall things are going well MSE: Alert and attentive. Orientation times three. Dressed and Groomed: Appropriately. has an earring in the right ear Pleasant and cooperative. Psychomotor Activity: Normal. Speech: Normal in tone, quality, and quantity. Mood: I am ok Affect: Subdued and blunted. SI or HI: None. Perceptual disturbance: None. Thought Content: No paranoia or other delusional thinking noted. Thought Process: Normal. Cognition: Intact Judgment and Insight: Good AIMS: Normal. Labs: No new labs Vital signs: Diagnosis: major depressive disorder with psychosis Plan and recommendation: Continue current Medications. Monitor MS and side effects of medications and adjust Medications accordingly. Provide supportive psychotherapy. The patient provided psychoeducation. The patient provided Substance abuse counseling. Smoke cessation therapy. The patient to continue attending the nayak activities. Medication Consent with explanation of risk/benefits and side effects: Explained and obtained. Leland Cohen M.D. Objective - Vital Signs Vital signs: Vital Signs Temp 97.6 F 06/28/23 06:00 Pulse 86 06/28/23 06:00 Resp 17 06/28/23 06:00 BP 106/72 06/28/23 06:00 Pulse Ox 99 06/28/23 06:00 FiO2 Intake & Output 06/27/23 06/28/23 06/28/23 18:59 06:59 18:59 Weight 69.4 kg - Labs CBC & Chem 7: 06/24/23 12:40 06/24/23 12:40
[2023-06-29 07:14] VITALS: BP 112/69; PULSE 62; RESP 16; TEMP 98.2
--- NOTE | 2023-06-29 21:54 | P.DS ---
Providers Date of admission: 06/22/23 00:15 Expected date of discharge: 06/29/23 Attending physician: Anthony Suarez MD Consults: 06/21/23 23:59 Consult Physician Routine Consulting Provider: Melissa Joyce Consult Reason/Comments: medical management Do you want consulting provider notified?: Yes Primary care physician: Physician Nonstaff - Discharge Diagnosis(es) (1) Major depressive disorder, recurrent, severe w/o psychotic behavior Status: Acute Priority: High (2) Polysubstance abuse Status: Acute Priority: Medium Hospital Course: Discharge Summary HPI: Identifying Data: Mr. Scott is a 64 years old, single BM, who lives in [place], [place] in an apartment by himself. Chief Complaint: I am suicidal and hearing voices History of Psychiatric Illness- The patient noted that he has been hearing voices to kill himself. He also noted that he ia agitated and angry. The patient noted that he was in a rage and destroying things in co apartment. The neighbor called the police and brought patient to the hospital. The patient sated that beside hearing voices, he also feels paranoid. He feels people are out to get him, watch him and talk about him. He noted that his depressive symptomatology consists of feeling sad, anger, rage, social isolation, loss of interest, feeling of worthlessness and worthlessness. He noted that he has been like this for some time. He noted that recently he started hearing voices and developed thoughts of hurting self and others. He feels that his medications are not working. He saw his out-pt psychiatrist 2 weeks ago but did not mention anything to him. He indicated ran ng here in the past. He takes Seroquel 250 mg at bedtime and Effexor 75 mg daily. Confirmed by [facility] [id number] The patients psychiatric illness started at age 14. He has been going to out-pt treatment since then off and on. He has had 4-5 admissions since his illness began. His last admission was to this hospital 2 years ago with similar symptoms. Past psychiatric history: As stated above. Leading questions: The patient denied /admitted to Depression and Anxiety. Admitted to self-harm and thoughts of hurting other people. HI. Admitted to hearing voices and feeling paranoid. Drugs and alcohol history: Polysubstance abuse. Hospital Course: After admission, the patient was involved in pharmacotherapy, nayak milieu, and individual psychodynamic psychotherapy. The patient was started on his medications Seroquel and Effexor. The dose was titrated to desirable improvement with absence of side effects. The patient tolerated medications well without any side effects. He was given Seroquel 200mg at bedtime and Effexor 75 mg daily. The patient was also involved in nayak activities. The patient attended the groups and participated well. The patient interacted with peers and staff well. The patient slowly started showing improvement. The hospital course was uneventful. The patient symptoms of depression, suicidal and homicidal ideations abated. The psychosis subsided. The patient was stable to be discharged to out-patient care on 06/29/2023. The patient did not have any guns or weapons in possession at home MSE: Alert and attentive. Orientation times three Dressed and Groomed: Appropriately. Pleasant and cooperative. Psychomotor Activity: Normal. Speech: Normal in tone, quality, and quantity. Mood: Depressed, anxious, and angry. Affect: Irritable and constricted SI or HI: The patient has thoughts of hurting self and others. Perceptual disturbance: The patient has been hearing voices. Thought Content: The patient has paranoid thoughts. Thought Process: Normal. Cognition: Intact Judgment and Insight: Poor. AIMS: Normal Diagnosis: Major Depressive Disorder, severe, recurrent with psychosis. Polysubstance abuse. Plan: The patient to be discharged today. The patient has attained good improvement since admission. He is stable to be followed as an outpatient. The patient is not suicidal or Homicidal. He does not pose any harm to self or others. The patient remains at a greater risk of self-harm or harm to others than general population on a chronic basis due to psychiatric illness and substance abuse. The patient will continue taking following medication post discharge. The importance of medication compliance and maintaining regular appointments at psychiatric out-pt and PCP clinic was explained and encouraged. The patient was also advised to seek substance counseling and attend AA/NA meetings. The understood and agreed with the recommendations. home mission worker to arrange for and conduct family meeting to ensure safety upon discharge and answer any questions. The social contact worker to arrange for patients follow-up appointments at [facility] for psychiatric care along with follow-up with PCP. The patient provided psychoeducation. Advised to call 911 or go to nearest ED or call this hospital in case of acute worsening of symptomatology, severe side effects or having suicidal, homicidal thoughts and feeling unsafe at home. Patient Condition at Discharge: Stable Plan - Discharge Summary Discharge Rx Participant: Yes New Discharge Prescriptions: New Albuterol Inhaler [Ventolin Hfa Inhaler] 2 puff INHALATION RT-QID PRN each PRN Reason: Shortness Of Breath Continue carvediloL [Coreg] 3.125 mg PO BID Venlafaxine HCl ER [Effexor XR] 112.5 mg PO DAILY Cetirizine HCl [Zyrtec] 10 mg PO DAILY Aspirin 81 mg PO DAILY #30 tab Atorvastatin [Lipitor] 40 mg PO HS #30 tab Naloxone HCl [Narcan] 4 mg NASAL DIRECTED PRN PRN Reason: OVERDOSE Sucralfate [Carafate] 1 gm PO BID 15 Days #300 ml Clopidogrel [Plavix] 75 mg PO DAILY 30 Days #30 tablet QUEtiapine [SEROquel] 200 mg PO DAILY HYDROcodone/APAP 10-325MG [Welton 10-325] 1 tab PO QID Discontinued hydrOXYzine pamoate [Vistaril] 25 mg PO DAILY QUEtiapine [SEROquel] 400 mg PO HS 30 Days #30 tab No Action Pantoprazole [Protonix] 40 mg PO BID 30 Days #60 tab Discharge Medication List Clopidogrel [Plavix] 75 mg PO DAILY 30 Days #30 tablet 07/24/22 [Rx] Cetirizine HCl [Zyrtec] 10 mg PO DAILY 12/17/22 [History] HYDROcodone/APAP 10-325MG [Welton 10-325] 1 tab PO QID 12/17/22 [History] QUEtiapine [SEROquel] 200 mg PO DAILY 12/17/22 [History] Venlafaxine HCl ER [Effexor XR] 112.5 mg PO DAILY 12/17/22 [History] carvediloL [Coreg] 3.125 mg PO BID 12/17/22 [History] Aspirin 81 mg PO DAILY #30 tab 12/18/22 [Rx] Atorvastatin [Lipitor] 40 mg PO HS #30 tab 12/18/22 [Rx] Naloxone HCl [Narcan] 4 mg NASAL DIRECTED PRN 12/26/22 [History] Pantoprazole [Protonix] 40 mg PO BID 30 Days #60 tab 12/30/22 [Rx] Sucralfate [Carafate] 1 gm PO BID 15 Days #300 ml 12/30/22 [Rx] Albuterol Inhaler [Ventolin Hfa Inhaler] 2 puff INHALATION RT-QID PRN each 06/29/23 [Rx] Follow up Appointment(s)/Referral(s): [facility] [Outside] - 06/30/23 2:00 pm (06/30/2023 2:00PM - 3:00PM COLTEN DORADO 07/09/2023 11:30AM - 12:00PM DONITA YAP ) Olga Jaramillo MD [REFERRING] - 1 Week Patient Instructions/Handouts: How to Stop Smoking (DC), Depression (DC) Activity/Diet/Wound Care/Special Instructions: Avoid the use of street drugs and alcohol. Take all medications as prescribed. When you are in need of refills on your medications, please contact your medical provider and/or outpatient psychiatrist/provider to have this done. Please go to your scheduled outpatient appointment for aftercare treatment. If symptoms return or become worse, call the crisis line at and/or go to the nearest emergency room for evaluation. National Suicide Hotline 540 Discharge Disposition: HOME SELF-CARE
== END 2023-06-29 14:43 | disposition home or self-care (01) | DRG 885 ==
LOC: PSY 00:13 → 3MHU 00:15
PROVIDERS: ADMIT Psychiatry & Neurology Psychiatry; ATTEND Psychiatry & Neurology Psychiatry
DX: F33.2 Major depressive disorder, recurrent severe without psychotic features (principal); E78.5 Hyperlipidemia, unspecified; F17.210 Nicotine dependence, cigarettes, uncomplicated; F43.10 Post-traumatic stress disorder, unspecified; F43.22 Adjustment disorder with anxiety; G89.29 Other chronic pain; I10 Essential (primary) hypertension; I25.10 Atherosclerotic heart disease of native coronary artery without angina pectoris; I25.2 Old myocardial infarction; J44.9 Chronic obstructive pulmonary disease, unspecified; Z60.4 Social exclusion and rejection; Z79.02 Long term (current) use of antithrombotics/antiplatelets; Z79.82 Long term (current) use of aspirin; Z79.899 Other long term (current) drug therapy; Z81.8 Family history of other mental and behavioral disorders; Z95.5 Presence of coronary angioplasty implant and graft
CPT/HCPCS: 80053; 80061; 83036; 84443; 85025; 93005

== ENCOUNTER 2023-07-03 23:14 | Emergency (ER) | payer MEDICARE, OTHER ==
[2023-07-04 00:07] VITALS: BP 126/87; PULSE 75; RESP 18; TEMP 98.2
--- NOTE | 2023-07-04 01:04 | ED ---
Extremity Problem HPI - General Chief complaint: Extremity Problem,Nontraumatic Stated complaint: Leg pain Time Seen by Provider: 07/03/23 23:56 Source: patient, RN notes reviewed Mode of arrival: ambulatory Limitations: no limitations - History of Present Illness Initial comments: 62-year-old male presents to the ED with chief complaint of right leg pain. Patient states for the past 2 and half months has had intermittent pains and paresthesias of his right leg. Also states that his leg intermittently feels cold. No fevers or chills. No injury or trauma. No chest pain shortness of breath. No other complaints at this time. - Related Data Home Medications Medication Instructions Recorded Confirmed Cetirizine HCl [Zyrtec] 10 mg PO DAILY 12/17/22 12/26/22 HYDROcodone/APAP 10-325MG [[place] 1 tab PO QID 12/17/22 12/26/22 10-325] QUEtiapine [SEROquel] 200 mg PO DAILY 12/17/22 12/26/22 Venlafaxine HCl ER [Effexor XR] 112.5 mg PO DAILY 12/17/22 12/26/22 carvediloL [Coreg] 3.125 mg PO BID 12/17/22 12/26/22 Naloxone HCl [Narcan] 4 mg NASAL DIRECTED PRN 12/26/22 12/26/22 Previous Rx's Medication Instructions Recorded Clopidogrel [Plavix] 75 mg PO DAILY 30 Days #30 tablet 07/24/22 Aspirin 81 mg PO DAILY #30 tab 12/18/22 Atorvastatin [Lipitor] 40 mg PO HS #30 tab 12/18/22 Pantoprazole [Protonix] 40 mg PO BID 30 Days #60 tab 12/30/22 Sucralfate [Carafate] 1 gm PO BID 15 Days #300 ml 12/30/22 Albuterol Inhaler [Ventolin Hfa 2 puff INHALATION RT-QID PRN each 06/29/23 Inhaler] Allergies Allergy/AdvReac Type Severity Reaction Status Date / Time blueberry Allergy Rash/Hives Verified 07/03/23 23:23 nitroglycerin Allergy Swelling Verified 07/03/23 23:23 Review of Systems ROS Statement: Those systems with pertinent positive or pertinent negative responses have been documented in the HPI. ROS Other: All systems not noted in ROS Statement are negative. Past Medical History Past Medical History: Coronary Artery Disease (CAD), Chest Pain / Angina, Hyperlipidemia, Myocardial Infarction ([place]), Osteoarthritis (OA) Additional Past Medical History / Comment(s): arthritis in back and bilateral knees,hx hiatal hernia Last Myocardial Infarction Date:: 2004 History of Any Multi-Drug Resistant Organisms: Other MDRO Past Surgical History: Bowel Resection, Heart Catheterization With Stent Additional Past Surgical History / Comment(s): Cardiac stents x 3, bowel surgery for pinpoint hole in bowel, L knee arthroscopy, colonoscopy/benign polypectomies,hiatal hernia repair Past Anesthesia/Blood Transfusion Reactions: No Reported Reaction Date of Last Stent Placement:: 2013 Past Psychological History: Bipolar, Depression, PTSD, Schizophrenia Smoking Status: Current some day smoker Past Alcohol Use History: Daily Past Drug Use History: None Reported - Past Family History Father Family Medical History: Respiratory Disorder Additional Family Medical History / Comment(s): Father at age 64 from Black lung disease Mother Family Medical History: Hypertension, Myocardial Infarction ([place]) Additional Family Medical History / Comment(s): Mother of an [place] at 78yrs old. Brother(s) Family Medical History: Myocardial Infarction ([place]) Additional Family Medical History / Comment(s): Patient has 10 brothers and 2 from myocardial infarction and had history of alcoholism. Sister(s) Family Medical History: Hypertension, Myocardial Infarction ([place]) Additional Family Medical History / Comment(s): He has 7 sisters that are alive with no major medical problems. He has one son that has and one daughter that is alive and okay. General Exam Limitations: no limitations General appearance: alert, in no apparent distress Eye exam: Present: normal appearance Neck exam: Present: normal inspection Respiratory exam: Present: normal lung sounds bilaterally Cardiovascular Exam: Present: regular rate GI/Abdominal exam: Present: soft Extremities exam: Present: normal inspection, other (No tenderness to palpation of the right lower extremity.) Neurological exam: Present: alert, oriented X3 Skin exam: Present: warm, dry Course Vital Signs 07/03/23 23:18 Temperature 98.2 F Pulse Rate 75 Respiratory 18 Rate Blood Pressure 126/87 O2 Sat by Pulse 97 Oximetry Medical Decision Making - Medical Decision Making Was pt. sent in by a medical professional or institution (, PA, OCC MED PHYSICIAN, urgent care, hospital, or residential...) When possible be specific @ -No Did you speak to anyone other than the patient for history (EMS, parent, family, police, friend...)? What history was obtained from this source @ -No Did you review nursing and triage notes (agree or disagree)? Why? @ -I reviewed and agree with nursing and triage notes Were old charts reviewed (outside hosp., previous admission, EMS record, old EKG, old radiological studies, urgent care reports/EKG's, residential records)? Report findings @ -No old charts were reviewed Differential Diagnosis (chest pain, altered mental status, abdominal pain women, abdominal pain men, vaginal bleeding, weakness, fever, dyspnea, syncope, headache, dizziness, GI bleed, back pain, seizure, CVA, palpatations, mental health, musculoskeletal)? @ -Differential Musculoskeletal Muscular strain, contusion, ligament sprain, fracture, arthritis, septic arthritis, bursitis, cellulitis, muscle spasm, nerve compression, DVT, arterial occlusion, herpes zoster, electrolyte abnormality, tumor.... This is not meant to be in all inclusive list EKG interpreted by me (3pts min.). @ -None X-rays interpreted by me (1pt min.). @ -None done CT interpreted by me (1pt min.). @ -None done U/S interpreted by me (1pt. min.). @ -US interpreted me which revealed no evidence of acute finding. What testing was considered but not performed or refused? (CT, X-rays, U/S, labs)? Why? @ -None What meds were considered but not given or refused? Why? @ -None Did you discuss the management of the patient with other professionals (professionals i.e. , PA, OCC MED PHYSICIAN, lab, RT, psych nurse, social service technician, cage operator, teacher, adult parole officer, vocational case manager)? Give summary @ -No Was smoking cessation discussed for >3mins.? @ -No Was critical care preformed (if so, how long)? @ -No Were there social determinants of health that impacted care today? How? (Homelessness, low income, unemployed, alcoholism, drug addiction, transportation, low edu. Level, literacy, decrease access to med. care, long-term, rehab)? @ -No Was there de-escalation of care discussed even if they declined (Discuss DNR or withdrawal of care, Hospice)? DNR status @ -No What co-morbidities impacted this encounter? (DM, HTN, Smoking, COPD, CAD, Cancer, CVA, ARF, Chemo, Hep., AIDS, mental health diagnosis, sleep apnea, morbid obesity)? @ -None Was patient admitted / discharged? Hospital course, mention meds given and route, prescriptions, significant lab abnormalities, going to OR and other pertinent info. @ -Discharge 62-year-old male presents to the ED with complaints of right leg pain which has been ongoing for the past month and a half. Describes pain and paresthesias going down his right leg. Ultrasound was performed which revealed no evidence of acute finding. Exam of the leg shows no tenderness to palpation. DP PT pulses intact. No ulcerations no overlying skin changes. Symptoms likely musculoskeletal in nature. Discharged home in stable condition with instructions to follow-up with his PCP. Discussed return precautions with patient who verbalized agreement. Undiagnosed new problem with uncertain prognosis? @ -No Drug Therapy requiring intensive monitoring for toxicity (Heparin, Nitro, Insulin, Cardizem)? @ -No Were any procedures done? @ -No Diagnosis/symptom? @ -Right leg pain Acute, or Chronic, or Acute on Chronic? @ -Acute on chronic Uncomplicated (without systemic symptoms) or Complicated (systemic symptoms)? @ -Uncomplicated Side effects of treatment? @ -No Exacerbation, Progression, or Severe Exacerbation? @ -No Poses a threat to life or bodily function? How? (Chest pain, [place], [place], pneumonia, PE, COPD, DKA, ARF, appy, cholecystitis, CVA, Diverticulitis, Homicidal, Suicidal, threat to staff... and all critical care pts) @ -No Disposition Clinical Impression: Right leg pain Disposition: HOME SELF-CARE Condition: Good Additional Instructions: Please return to the Emergency Department if symptoms worsen or any other concerns. Please take [id number] medications as needed for pain. Follow- up with your primary care provider. Is patient prescribed a controlled substance at d/c from ED?: No Referrals: None,Stated [Primary Care Provider] - 1-2 days Time of Disposition: 02:40
[2023-07-04] MEDS: KETOROLAC 15 MG/ML 1 ML VIAL IM STA (01:06)
[2023-07-04] MEDS: HYDROmorphone 0.5 MG/0.5 ML SYRINGE IM STA (01:07)
--- NOTE | 2023-07-04 02:03 | US ---
EXAM: US Duplex Right Lower Extremity Veins CLINICAL HISTORY: ITS.REASON US Reason: pain TECHNIQUE: Real-time duplex ultrasound scan of the right lower extremity veins integrating B-mode two-dimensional vascular structure, Doppler spectral analysis, color flow Doppler imaging and compression. COMPARISON: No relevant prior studies available. FINDINGS: Deep veins: Unremarkable. No DVT in the visualized common femoral, femoral, proximal deep femoral or popliteal veins. The veins demonstrate normal color flow, are normally compressible, with normal phasic flow and/or augmentation response. Superficial veins: Unremarkable. No thrombus in the visualized great saphenous vein. Soft tissues: No acute findings. IMPRESSION: No evidence of acute DVT.
== END 2023-07-04 03:19 | disposition home or self-care (01) ==
LOC: EC 23:14
DX: M79.604 Pain in right leg (principal); F17.200 Nicotine dependence, unspecified, uncomplicated; Z88.8 Allergy status to other drugs, medicaments and biological substances; Z91.018 Allergy to other foods
CPT/HCPCS: 99284; 96372 ×2; 93971; J1885; J1170

== ENCOUNTER 2023-09-24 20:50 | Emergency (ER) | payer MEDICARE, OTHER ==
[2023-09-24] MEDS ORDERED: TOPICAL SKIN ADHESIVE 1 EACH AMP TOPICAL ONE (21:52)
--- NOTE | 2023-10-16 14:19 | CT ---
Patient Lele Scott ID [id number] Order # EXAMINATION TYPE: CT brain anuj estrella con DATE OF EXAM: 09/24/2023 COMPARISON: No comparison available on downtime PACS. HISTORY: EtOH, fall, neck pain CT DLP: 1650 mGycm, Automated exposure control for dose reduction was used. CONTRAST: Patient injected with 0 mL of Isovue 300. CT of the brain is performed utilizing 3 mm thick sections through the posterior fossa and 3 mm thick sections through the remaining calvarium. Study is performed within 24 hours of arrival to the hospital. No abnormal hyperdensity is present to suggest an acute intracranial hemorrhage. No mass lesion is evident. No acute infarcts are evident. Ventricles and sulci are appropriate for the patient age. Nasal bone fracture with deviation is noted. This could be old. Clinical correlation recommended. Paranasal sinuses and mastoid air cells within the [id number] are clear. IMPRESSIONS: 1. No acute intracranial process. Follow-up MRI can be performed as clinically indicated. 2. Nasal bone fracture, which may be old. Clinical correlation recommended. CT cervical spine. COMPARISON: None CT of the cervical spine is performed in the axial plane at 2 mm thick sections. Reconstructed image s in the coronal, and sagittal plane are reviewed on the computer. No acute fractures are evident. Vertebral body alignment is normal. Diffuse narrowing disc height is present. Anterior vertebral body spurring is noted. There is some fernández btle kyphosis in the upper cervical spine. Vertebral body heights are preserved. No spinal canal stenosis is evident. Some mild foraminal narrowings in the lower cervical. IMPRESSION: 1. Mild degenerative disc changes. 2. No acute osseous abnormality cervical spine
== END 2023-09-25 02:00 | disposition home or self-care (01) ==
LOC: EC 20:50
CPT/HCPCS: 12011; 70450; 72125; 93005; 99284

== ENCOUNTER 2023-10-23 14:25 | Emergency (ER) | payer MEDICARE, OTHER ==
[2023-10-23 14:36] VITALS: RESP 16
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
[2023-10-23] MEDS: KETOROLAC 15 MG/ML 1 ML VIAL IM STA (15:29)
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
[2023-10-23 16:50] VITALS: BP 129/81; PULSE 74; TEMP 98.1
== END 2023-10-23 16:50 | disposition home or self-care (01) ==
LOC: EC 14:25
CPT/HCPCS: 72050; 72070; 96372; 99284

== ENCOUNTER → 2023-10-26 | Outpatient (CLI) | payer MEDICARE, OTHER ==
--- NOTE | 2023-10-26 11:43 | US ---
EXAMINATION TYPE: US kidneys/renal and bladder DATE OF EXAM: 10/26/2023 COMPARISON: NONE CLINICAL INDICATION: Male, 63 years old with history of N28.1 Renal cyst; Lt renal cyst EXAM MEASUREMENTS: Right Kidney: 10.7x4.8x4.8 cm Left Kidney: 11.3x6.1x5.0 cm Right Kidney: wnl Left Kidney: large cyst again seen: 3.8x3.5x2.8cm. This contains septations may be slightly larger th an previous measurement 3.3 cm. Bladder: wnl Bilateral Jets seen: Yes There is no evidence for hydronephrosis at this point in time. No nephrolithiasis is seen. No francisco s are identified. The urinary bladder is anechoic. Mild diffuse wall thickening to the urinary bladd er is not excluded. Bilateral ureteral jets are seen. Exam limited by bowel and rib shadows. IMPRESSION: 1. Enlarging complex septated left renal cyst. 2. There may be diffuse urinary bladder wall thickening present. [facility], , 10/26/2023 11:41 AM
== END | disposition home or self-care (01) ==
LOC: RADUSWWP 11:08
PROVIDERS: ATTEND Urology
DX: N28.1 Cyst of kidney, acquired (principal)
CPT/HCPCS: 76770

== ENCOUNTER 2024-01-03 09:47 | Inpatient (IN) | payer MEDICARE, OTHER ==
--- NOTE | 2024-01-03 10:17 | ED ---
General Adult HPI - General Chief complaint: Chest Pain Stated complaint: Chest pain Time Seen by Provider: 01/03/24 09:56 Source: patient, RN notes reviewed Mode of arrival: wheelchair Limitations: no limitations - History of Present Illness Initial comments: Patient is a 63-year-old male presents emergency department with concerns with chest discomfort. Onset of symptoms was around 6 AM. Patient got up from using the restroom. Patient had chest discomfort that feels like pressure and has been persistent. Discomfort is somewhat severe. Patient does have associate dyspnea, and nausea. Patient states he has had similar episodes previously and has 4 cardiac stents. Patient also did have a syncopal episode and did hit the right side of his head and neck. - Related Data Home Medications Medication Instructions Recorded Confirmed Cetirizine HCl [Zyrtec] 10 mg PO DAILY 12/17/22 12/26/22 HYDROcodone/APAP 10-325MG [[place] 1 tab PO QID 12/17/22 12/26/22 10-325] QUEtiapine [SEROquel] 200 mg PO DAILY 12/17/22 12/26/22 Venlafaxine HCl ER [Effexor XR] 112.5 mg PO DAILY 12/17/22 12/26/22 carvediloL [Coreg] 3.125 mg PO BID 12/17/22 12/26/22 Naloxone HCl [Narcan] 4 mg NASAL DIRECTED PRN 12/26/22 12/26/22 Previous Rx's Medication Instructions Recorded Clopidogrel [Plavix] 75 mg PO DAILY 30 Days #30 tablet 07/24/22 Aspirin 81 mg PO DAILY #30 tab 12/18/22 Atorvastatin [Lipitor] 40 mg PO HS #30 tab 12/18/22 Pantoprazole [Protonix] 40 mg PO BID 30 Days #60 tab 12/30/22 Sucralfate [Carafate] 1 gm PO BID 15 Days #300 ml 12/30/22 Albuterol Inhaler [Ventolin Hfa 2 puff INHALATION RT-QID PRN each 06/29/23 Inhaler] methocarbamoL [Robaxin] 500 mg PO TID PRN #15 tab 10/23/23 Allergies Allergy/AdvReac Type Severity Reaction Status Date / Time blueberry Allergy Rash/Hives Verified 01/03/24 09:55 nitroglycerin Allergy Swelling Verified 01/03/24 09:55 Review of Systems ROS Statement: Those systems with pertinent positive or pertinent negative responses have been documented in the HPI. ROS Other: All systems not noted in ROS Statement are negative. Constitutional: Denies: fever Eyes: Denies: eye pain ENT: Denies: ear pain Respiratory: Denies: cough Cardiovascular: Reports: as per HPI, chest pain Endocrine: Denies: fatigue Gastrointestinal: Denies: vomiting Musculoskeletal: Denies: back pain Neurological: Reports: headache (From fall). Denies: weakness, confusion Past Medical History Past Medical History: Coronary Artery Disease (CAD), Chest Pain / Angina, Hype rlipidemia, Myocardial Infarction (DE), Osteoarthritis (OA) Additional Past Medical History / Comment(s): arthritis in back and bilateral knees,hx hiatal hernia Last Myocardial Infarction Date:: 2004 History of Any Multi-Drug Resistant Organisms: Other MDRO Past Surgical History: Bowel Resection, Heart Catheterization With Stent Additional Past Surgical History / Comment(s): Cardiac stents x 3, bowel surgery for pinpoint hole in bowel, L knee arthroscopy, colonoscopy/benign polypectomies,hiatal hernia repair Past Anesthesia/Blood Transfusion Reactions: No Reported Reaction Date of Last Stent Placement:: 2013 Past Psychological History: Bipolar, Depression, PTSD, Schizophrenia Smoking Status: Current every day smoker Past Alcohol Use History: Occasional Past Drug Use History: None Reported - Past Family History Father Family Medical History: Respiratory Disorder Additional Family Medical History / Comment(s): Father at age 64 from Black lung disease Mother Family Medical History: Hypertension, Myocardial Infarction (DE) Additional Family Medical History / Comment(s): Mother of an DE at 78yrs old. Brother(s) Family Medical History: Myocardial Infarction (DE) Additional Family Medical History / Comment(s): Patient has 10 brothers and 2 from myocardial infarction and had history of alcoholism. Sister(s) Family Medical History: Hypertension, Myocardial Infarction (DE) Additional Family Medical History / Comment(s): He has 7 sisters that are alive with no major medical problems. He has one son that has and one daughter that is alive and okay. General Exam Limitations: no limitations General appearance: alert, in no apparent distress Head exam: Present: normocephalic Eye exam: Present: normal appearance, PERRL, EOMI ENT exam: Present: normal oropharynx Neck exam: Present: normal inspection, tenderness (Diffuse tenderness) Respiratory exam: Present: normal lung sounds bilaterally Cardiovascular Exam: Present: regular rate, normal rhythm, normal heart sounds Expanded Peripheral pulses: 2+: Radial (R), Radial (L), Posterior Tibialis (R), Posterior Tibialis (L) GI/Abdominal exam: Present: soft. Absent: tenderness, pulsatile mass Extremities exam: Present: tenderness (Right shoulder/proximal humerus region. Distally all extremities are neurovascularly intact) Neurological exam: Present: alert, oriented X3, CN II-XII intact. Absent: motor sensory deficit Expanded Neurological exam: Present: protecting the airway Patient oriented to: Present: person, time Speech: Present: fluid speech Cranial nerves: EOM's Intact: Normal Sensory exam: Upper Extremity Light Touch: Normal, Lower Extremity Light Touch: Normal Motor strength exam: RUE: 5, LUE: 5, RLE: 5, LLE: 5 Eye Response: (4) open spontaneously Motor Response: (6) obeys commands Verbal Response: (5) oriented Psychiatric exam: Present: normal affect, normal mood Skin exam: Present: normal color Course Vital Signs 01/03/24 09:55 Temperature 99.2 F Pulse Rate 85 Respiratory 18 Rate Blood Pressure 115/75 O2 Sat by Pulse 98 Oximetry EKG Findings - EKG Results: EKG: interpreted by DAVE (High QRS voltage with repolarization changes), sinus rhythm, normal axis Medical Decision Making - Medical Decision Making Was pt. sent in by a medical professional or institution (ISABELLA Sanchez, LOCAL COMBINATION TRUCK DRIVER, urgent care, hospital, or [facility]...) When possible be specific @ -No Did you speak to anyone other than the patient for history (EMS, parent, family, police, friend...)? What history was obtained from this source @ -No Did you review nursing and triage notes (agree or disagree)? Why? @ -I reviewed and agree with nursing and triage notes Were old charts reviewed (outside hosp., previous admission, EMS record, old EKG, old radiological studies, urgent care reports/EKG's, [facility] records)? Report findings @ -Previous labs reviewed Differential Diagnosis (chest pain, altered mental status, abdominal pain women, abdominal pain men, vaginal bleeding, weakness, fever, dyspnea, syncope, headache, dizziness, GI bleed, back pain, seizure, CVA, palpatations, mental health, musculoskeletal)? @ -MDM differential chest pain. Differential Chest Pain: Stable Angina, Unstable Angina, STEMI, NSTEMI Aortic Dissection, Pneumothorax, Musculoskeletal, Esophageal Spasm GERD, Cholecystitis, Pancreatitis, Zoster, this is not meant to be an all-inclusive list. Differential Syncope: Valvular disease, hypertrophic cardiomyopathy, pulmonary embolism, tamponade, tachycardia, bradycardia, DE, hypovolemia, hemorrhage, dissection, anemia, intracranial hemorrhage, seizure, hypoglycemia, carbon monoxide poisoning, this is not meant to be an all-inclusive list. EKG interpreted by me (3pts min.). @ -As above X-rays interpreted by me (1pt min.). @ -Right shoulder x-ray shows no acute process CT interpreted by me (1pt min.). @ -CT scan of brain and cervical spine without acute abnormality. CT scan of the chest unremarkable, no embolism U/S interpreted by me (1pt. min.). @ -None done What testing was considered but not performed or refused? (CT, X-rays, U/S, labs)? Why? @ -None What meds were considered but not given or refused? Why? @ -None Did you discuss the management of the patient with other professionals (professionals i.e. , PA, LOCAL COMBINATION TRUCK DRIVER, lab, RT, psych nurse, social work associate, combination technician, teacher, animal control officer, outpatient case manager)? Give summary @ -Case was discussed with Dr. Smith who will admit covering hospital call Was smoking cessation discussed for >3mins.? @ -No Was critical care preformed (if so, how long)? @ -No Were there social determinants of health that impacted care today? How? (Homelessness, low income, unemployed, alcoholism, drug addiction, transporta tion, low edu. Level, literacy, decrease access to med. care, shelter, rehab)? @ -No Was there de-escalation of care discussed even if they declined (Discuss DNR or withdrawal of care, Hospice)? DNR status @ -No What co-morbidities impacted this encounter? (DM, HTN, Smoking, COPD, CAD, Cancer, CVA, ARF, Chemo, Hep., AIDS, mental health diagnosis, sleep apnea, morbid obesity)? @ -History of coronary artery disease with similar symptoms Was patient admitted / discharged? Hospital course, mention meds given and route, prescriptions, significant lab abnormalities, going to OR and other pertinent info. @ -Patient with history of coronary artery disease presents with chest discomfort and syncope. Initial evaluation unremarkable. Patient will be admitted with cardiac consult, admission orders written. Consult placed. Undiagnosed new problem with uncertain prognosis? @ -No Drug Therapy requiring intensive monitoring for toxicity (Heparin, Nitro, Insulin, Cardizem)? @ -No Were any procedures done? @ -No Diagnosis/symptom? @ -Chest pain, syncope Acute, or Chronic, or Acute on Chronic? @ -Acute, acute Uncomplicated (without systemic symptoms) or Complicated (systemic symptoms)? @ -Default Side effects of treatment? @ -No Exacerbation, Progression, or Severe Exacerbation? @ -No Poses a threat to life or bodily function? How? (Chest pain, [place], DE, pneumonia, PE, COPD, DKA, ARF, appy, cholecystitis, CVA, Diverticulitis, Homicidal, Suicidal, threat to staff... and all critical care pts) @ -Threat to cardiac function - Lab Data Result diagrams: 01/03/24 10:33 01/03/24 10:33 Lab Results 01/03/24 01/03/24 01/03/24 Range/Units 10:33 10:33 10:33 WBC 3.4 L (3.8-10.6) k/uL RBC 3.92 L (4.30-5.90) m/uL Hgb 12.7 L (13.0-17.5) gm/dL Hct 39.4 (39.0-53.0) % MCV 100.3 H (80.0-100.0) fL MCH 32.4 (25.0-35.0) pg MCHC 32.3 (31.0-37.0) g/dL RDW 14.8 (11.5-15.5) % Plt Count 133 L (150-450) k/uL MPV 8.8 Neutrophils % 46 % Lymphocytes % 41 % Monocytes % 7 % Eosinophils % 1 % Basophils % 0 % Neutrophils # 1.6 (1.3-7.7) k/uL Lymphocytes # 1.4 (1.0-4.8) k/uL Monocytes # 0.2 (0-1.0) k/uL Eosinophils # 0.0 (0-0.7) k/uL Basophils # 0.0 (0-0.2) k/uL Macrocytosis Slight PT 9.6 L (10.0-12.5) sec INR 0.8 (<1.2) APTT 23.3 (22.0-30.0) sec D-Dimer 0.88 H (<0.60) mg/L FEU Sodium 139 (137-145) mmol/L Potassium 4.3 (3.5-5.1) mmol/L Chloride 109 H (98-107) mmol/L Carbon Dioxide 26 (22-30) mmol/L Anion Gap 4 mmol/L BUN 11 (9-20) mg/dL Creatinine 0.77 (0.66-1.25) mg/dL Est GFR (CKD-EPI)AfAm >90 (>60 ml/min/1.73 sqM) Est GFR (CKD-EPI)NonAf >90 (>60 ml/min/1.73 sqM) Glucose 77 (74-99) mg/dL Calcium 8.9 (8.4-10.2) mg/dL Magnesium 1.9 (1.6-2.3) mg/dL Total Bilirubin 0.4 (0.2-1.3) mg/dL AST 35 (17-59) U/L ALT 19 (4-49) U/L Alkaline Phosphatase 43 (38-126) U/L Troponin I (0.000-0.034) ng/mL Total Protein 6.2 L (6.3-8.2) g/dL Albumin 3.8 (3.5-5.0) g/dL 01/03/24 Range/Units 10:33 WBC (3.8-10.6) k/uL RBC (4.30-5.90) m/uL Hgb (13.0-17.5) gm/dL Hct (39.0-53.0) % MCV (80.0-100.0) fL MCH (25.0-35.0) pg MCHC (31.0-37.0) g/dL RDW (11.5-15.5) % Plt Count (150-450) k/uL MPV Neutrophils % % Lymphocytes % % Monocytes % % Eosinophils % % Basophils % % Neutrophils # (1.3-7.7) k/uL Lymphocytes # (1.0-4.8) k/uL Monocytes # (0-1.0) k/uL Eosinophils # (0-0.7) k/uL Basophils # (0-0.2) k/uL Macrocytosis PT (10.0-12.5) sec INR (<1.2) APTT (22.0-30.0) sec D-Dimer (<0.60) mg/L FEU Sodium (137-145) mmol/L Potassium (3.5-5.1) mmol/L Chloride (98-107) mmol/L Carbon Dioxide (22-30) mmol/L Anion Gap mmol/L BUN (9-20) mg/dL Creatinine (0.66-1.25) mg/dL Est GFR (CKD-EPI)AfAm (>60 ml/min/1.73 sqM) Est GFR (CKD-EPI)NonAf (>60 ml/min/1.73 sqM) Glucose (74-99) mg/dL Calcium (8.4-10.2) mg/dL Magnesium (1.6-2.3) mg/dL Total Bilirubin (0.2-1.3) mg/dL AST (17-59) U/L ALT (4-49) U/L Alkaline Phosphatase (38-126) U/L Troponin I <0.012 (0.000-0.034) ng/mL Total Protein (6.3-8.2) g/dL Albumin (3.5-5.0) g/dL Disposition Clinical Impression: Chest pain, Syncope Disposition: ADMITTED IP TO THIS HOSP Is patient prescribed a controlled substance at d/c from ED?: No Referrals: Nonstaff,Physician [Primary Care Provider] - 1-2 days Time of Disposition: 12:32
[2024-01-03] MEDS: MORPHINE SULFATE 4 MG/ML SYRINGE IV STA (10:33)
[2024-01-03 10:58] LABS: INR 0.8 (<1.2); Partial Thromboplastin Time 23.3 sec (22.0-30.0); Prothrombin Time 9.6 sec (10.0-12.5)
[2024-01-03 11:05] LABS: ALT 19 U/L (4-49); AST 35 U/L (17-59); African American GFR (CKD) >90 (>60 ml/min/1.73 sqM); Albumin 3.8 g/dL (3.5-5.0); Alkaline Phosphatase 43 U/L (38-126); Anion Gap 4 mmol/L; Blood Urea Nitrogen 11 mg/dL (9-20); Calcium 8.9 mg/dL (8.4-10.2); Carbon Dioxide 26 mmol/L (22-30); Chloride 109 mmol/L (98-107); Glucose 77 mg/dL (74-99); Magnesium 1.9 mg/dL (1.6-2.3); Non-African American GFR(CKD) >90 (>60 ml/min/1.73 sqM); Potassium 4.3 mmol/L (3.5-5.1); Sodium 139 mmol/L (137-145); Total Bilirubin 0.4 mg/dL (0.2-1.3); Total Protein 6.2 g/dL (6.3-8.2)
--- NOTE | 2024-01-03 11:06 | CT ---
EXAMINATION TYPE: CT brain cspine wo con DATE OF EXAM: 01/03/2024 COMPARISON: 09/24/2023 CLINICAL INDICATION: Male, 63 years old with history of fall; PHH, Fall, + LOC TECHNIQUE: CT scan of the head and cervical spine are performed without contrast. CT DLP: 1459.[address] CTDI: mGy Automated exposure control for dose reduction was used. FINDINGS: There is no acute intracranial hemorrhage, mass effect, or midline shift identified. The ventricles and sulci are within normal limits in size. The globes are intact and the visualized sinuses are viraj ar. Cervical spine is visualized in its entirety from C1 through upper thoracic levels and demonstrates s atisfactory alignment without evidence of acute fracture or dislocation. Prevertebral soft tissue ap pears within normal limits. The C1-C2 articulation is unremarkable. IMPRESSION: There is no acute fracture or dislocation evident in the cervical spine. 2. No acute intracranial hemorrhage, mass effect, or midline shift is seen. [facility], , 01/03/2024 11:04 AM
[2024-01-03 11:57] LABS: Basophils % (A) 0 %; Eosinophils % (A) 1 %; HCT 39.4 % (39.0-53.0); HGB 12.7 gm/dL (13.0-17.5); Lymphocytes # (A) 1.4 k/uL (1.0-4.8); Lymphocytes % (A) 41 %; MCH 32.4 pg (25.0-35.0); MCHC 32.3 g/dL (31.0-37.0); MCV 100.3 fL (80.0-100.0); Macrocytosis Slight; Mean Platelet Volume 8.8; Monocytes # (A) 0.2 k/uL (0-1.0); Monocytes % (A) 7 %; Neutrophils # (A) 1.6 k/uL (1.3-7.7); Neutrophils % (A) 46 %; Platelet Count 133 k/uL (150-450); RBC 3.92 m/uL (4.30-5.90); RDW 14.8 % (11.5-15.5); WBC 3.4 k/uL (3.8-10.6)
--- NOTE | 2024-01-03 12:20 | XR ---
EXAMINATION TYPE: XR shoulder complete RT DATE OF EXAM: 01/03/2024 CLINICAL HISTORY: Pain after falling TECHNIQUE: Three views of the right shoulder are obtained. COMPARISON: None. FINDINGS: There is no acute fracture/dislocation evident in the right shoulder. Mild to moderate aaliyah rowing and spurring at the acromioclavicular joint. Glenohumeral joint is preserved. The visualized r ibs are intact and unremarkable. IMPRESSION: There is no acute fracture or dislocation in the right shoulder. [facility], , 01/03/2024 12:17 PM
--- NOTE | 2024-01-03 12:24 | CT ---
EXAMINATION TYPE: CT angio chest DATE OF EXAM: 01/03/2024 COMPARISON: Higher CTA Chest August 14, 2021 HISTORY: CHEST PAIN and elevated d-dimer CT DLP: 279.7 mGycm. Automated Exposure Control for Dose Reduction was Utilized. CONTRAST: CTA scan of the thorax is performed with IV Contrast, patient injected with 100 mL of Isovue 370, pul monary embolism protocol. MIP Images are created on CT scanner and reviewed. FINDINGS: LUNGS: Dependent opacity bilateral lower lungs favors atelectasis. No suspicious focal consolidation . There is no pleural effusion or pneumothorax seen. The tracheobronchial tree is patent. MEDIASTINUM: There is satisfactory enhancement of the pulmonary artery and its branches, there is no CT evidence for pulmonary embolism. Enlarged pulmonary arteries are present suggesting underlying pul monary artery hypertension. Some enhancement of the aorta without aneurysm or dissection. No cardiom egaly or pericardial effusion is seen. Coronary artery stent in the distal LAD distribution is redemo nstrated. OTHER: Surgical changes from [place] fundoplication surgery at level of the diaphragm are redemonstrat ed. Slight scoliotic curvature to the thoracic spine is redemonstrated. Incidental 1.5 cm simple deena ical cyst in the right hepatic lobe on axial image 168. IMPRESSION: No CT evidence for acute pulmonary embolism. No suspicious acute pulmonary parenchymal pr ocess. [facility], , 01/03/2024 12:22 PM
[2024-01-03] MEDS: ASPIRIN 81 MG PO STA ×2 (13:30→13:32)
[2024-01-03] MEDS ORDERED: ACETAMINOPHEN TAB 325 MG TAB PO PRN (13:36)
[2024-01-03] MEDS: MORPHINE SULFATE 4 MG/ML SYRINGE IV PRN (13:58)
--- NOTE | 2024-01-03 14:12 | P.HPIM ---
History of Present Illness H&P Date: 01/03/24 History of Presenting Illness: Patient is a very pleasant 63-year-old male with a past medical history of CAD status post stenting, hypertension, hyperlipidemia, bowel resection secondary to perforation, anxiety and depression, bipolar disorder, PTSD, schizophrenia, and nicotine use reported smoking 2 cigarettes daily. He presented to the emergency department with a chief complaint of chest pain and syncopal episode. Patient reports he was in the shower this morning around 6 AM and began to feel a pressure-like sensation to his midsternal chest. He states this pain worsened and became more severe more like a heaviness so he got out of the shower and then began to feel dizzy and passed out. Patient reports he believes he hit his head and neck on the sink on the way down. Patient reports continued 10 out of 10 chest pain/pressure along with soreness to right side of head, neck, and shoulder from fall/syncopal episode. Denies having any dizziness, lightheadedn ess, changes in vision or hearing, shortness of breath, cough or congestion, nausea, vomiting, or experiencing any numbness/tingling/weakness/swelling in his extremities. He reports last stent was placed approximately 1 year ago and he was seen by a railroad mechanic out in [place] but he lives out here and does not have a local railroad mechanic. Arrival to the emergency department, patient underwent evaluation. Vital signs upon arrival show blood pressure 115/75, heart rate 85, respiratory rate 18, temp 99.2 F, and SpO2 of 98% on room air. EKG completed showing normal sinus rhythm at 75 bpm with no significant T wave or ST abnormality showing no signs of acute ischemia upon personal review and int erpretation. CT head negative for acute intracranial process. CT cervical spine negative showing no acute fracture or dislocation. X-ray right shoulder negative for acute fracture or dislocation. CTA chest showing no evidence for pulmonary emboli and negative for acute cardiopulmonary process. Labs completed and reviewed. CBC showing pancytopenia with WBC count of 3.4, hemoglobin 12.7, and platelet count of 133 along with macrocytosis with MCV of 100.3. Coagulation profile showing low PT of 9.6 and elevated D-dimer of 0.88. BMP showing hyperchloremia with chloride of 109 otherwise normal findings. Blood glucose 77. Troponin was negative at less than 0.012. Patient admitted under o ur services with consultation to cardiology. Patient continues to report 10 out of 10 crushing chest pain. Will start patient on low intensity heparin infusion for treatment of angina and due to reported allergy to nitroglycerin unable to give sublingual nitro and Nitropaste. Review of systems: Pertinent positives and negatives as discussed in HPI, a complete review of systems was performed and all other systems are negative. Physical exam: Vital signs reviewed and stable. General: Nontoxic, no distress and appears stated age. Derm: Skin warm and dry, normal coloration for ethnicity. Head: Atraumatic, normocephalic and symmetric. Eyes: EOM's intact, no lid lag, and anicteric sclera Mouth: no lip lesions, mucus membranes moist Cardiovascular: regular rate and rhythm with normal S1S2, no murmur, positive posterior tibial pulses bilaterally, and cap refill < 2 seconds. Lungs: Respirations even, regular, and unlabored on room air. Lungs CTA bilaterally, no rhonchi, no rales, no wheezing, and no accessory muscle usage. Abdominal: soft, nontender to palpation, no guarding, no appreciable organomegaly Ext: ROM intact. No gross muscle atrophy, no edema, no contractures Neuro: Speech clear, face symmetrical and CN II-XII grossly intact with no noted focal neuro deficits Psych: Alert and oriented to person, place, time, and situation. Appropriate and pleasant affect. Assessment and Plan of Care: Unstable angina History of CAD status post stenting Hypertension Hyperlipidemia -Cardiology consulted, appreciate recommendations -Telemetry monitoring -Trend troponins -Cardiac diet, NPO at midnight -Aspirin 81 mg daily, atorvastatin, -Lipid profile with a.m. labs. -Echocardiogram Chronic conditions: Previously diagnosed renal and hepatic cysts Previous bowel perforation followed by resection Depression and anxiety Bipolar disorder Schizophrenia Data and imaging reviewed: -As stated above in HPI. The patient is admitted with an anticipated less than 2 midnight stay for evaluation of chest pain CODE STATUS: Full code DVT prophylaxis: Heparin Anticipated discharge date: Pending clinical course, likely 24 to [address]: Home Patient was seen independently by Nurse Practitioner. This document was prepared using [employer] dictation software. Please allow for errors in webmethods consultant while rare they do occur. Layo Muller NP rendered care for this patient independently, reviewed the findings and plan as documented in the note above and agree with plan. I did not physically speak with or examine the patient on this date. Past Medical History Past Medical History: Coronary Artery Disease (CAD), Chest Pain / Angina, Hyperlipidemia, Myocardial Infarction (MT), Osteoarthritis (OA) Additional Past Medical History / Comment(s): arthritis in back and bilateral knees,hx hiatal hernia Last Myocardial Infarction Date:: 2004 History of Any Multi-Drug Resistant Organisms: Other MDRO Past Surgical History: Bowel Resection, Heart Catheterization With Stent Additional Past Surgical History / Comment(s): Cardiac stents x 3, bowel surgery for pinpoint hole in bowel, L knee arthroscopy, colonoscopy/benign polypectomies,hiatal hernia repair Past Anesthesia/Blood Transfusion Reactions: No Reported Reaction Date of Last Stent Placement:: 2013 Past Psychological History: Bipolar, Depression, PTSD, Schizophrenia Smoking Status: Current every day smoker Past Alcohol Use History: Occasional Past Drug Use History: None Reported - Past Family History Father Family Medical History: Respiratory Disorder Additional Family Medical History / Comment(s): Father at age 64 from Black lung disease Mother Family Medical History: Hypertension, Myocardial Infarction ([place]) Additional Family Medical History / Comment(s): Mother of an MT at 78yrs old. Brother(s) Family Medical History: Myocardial Infarction ([place]) Additional Family Medical History / Comment(s): Patient has 10 brothers and 2 from myocardial infarction and had history of alcoholism. Sister(s) Family Medical History: Hypertension, Myocardial Infarction ([place]) Additional Family Medical History / Comment(s): He has 7 sisters that are alive with no major medical problems. He has one son that has and one daughter that is alive and okay. Medications and Allergies Home Medications Medication Instructions Recorded Confirmed Type HYDROcodone/APAP 10-325MG [[place] 1 tab PO QID 12/17/22 01/03/24 History 10-325] Aspirin 81 mg PO DAILY #30 tab 12/18/22 01/03/24 Rx Allergies Allergy/AdvReac Type Severity Reaction Status Date / Time blueberry Allergy Rash/Hives Verified 01/03/24 09:55 nitroglycerin Allergy Swelling Verified 01/03/24 09:55 Physical Exam Vitals: Vital Signs Temp Pulse Resp BP Pulse Ox 01/03/24 09:55 99.2 F 85 18 115/75 98 Intake and Output 01/02/24 01/03/24 01/03/24 22:59 06:59 14:59 Other: Weight 73.482 kg Results CBC & Chem 7: 01/03/24 10:33 01/03/24 10:33 Labs: Abnormal Lab Results - Last 24 Hours (Table) 01/03/24 01/03/24 01/03/24 Range/Units 10:33 10:33 10:33 WBC 3.4 L (3.8-10.6) k/uL RBC 3.92 L (4.30-5.90) m/uL Hgb 12.7 L (13.0-17.5) gm/dL MCV 100.3 H (80.0-100.0) fL Plt Count 133 L (150-450) k/uL PT 9.6 L (10.0-12.5) sec D-Dimer 0.88 H (<0.60) mg/L FEU Chloride 109 H (98-107) mmol/L Total Protein 6.2 L (6.3-8.2) g/dL
[2024-01-03] MEDS: HEPARIN SODIUM 1,000 UN/ML (10ML VL) IV ONE (14:13)
[2024-01-03] MEDS: HEPARIN SOD,PORK IN 0.45% NACL 25,000 UNIT in 0.45% NACL 1 250ML.BAG IV SCH (14:15)
[2024-01-03] MEDS: ATORVASTATIN 40 MG TAB PO SCH (20:17)
[2024-01-03] MEDS: HEPARIN SODIUM 1,000 UN/ML (10ML VL) IV PRN (22:12)
[2024-01-04 02:38] LABS: HCT 37.3 % (39.0-53.0); HGB 11.8 gm/dL (13.0-17.5); MCH 32.4 pg (25.0-35.0); MCHC 31.7 g/dL (31.0-37.0); MCV 102.3 fL (80.0-100.0); Macrocytosis Slight; Mean Platelet Volume 10.9; Platelet Count 126 k/uL (150-450); RBC 3.64 m/uL (4.30-5.90); RDW 15.2 % (11.5-15.5); WBC 4.1 k/uL (3.8-10.6)
[2024-01-04 02:46] LABS: INR 0.9 (<1.2); Prothrombin Time 10.2 sec (10.0-12.5)
[2024-01-04 03:31] LABS: ALT 17 U/L (4-49); AST 40 U/L (17-59); African American GFR (CKD) >90 (>60 ml/min/1.73 sqM); Albumin 3.3 g/dL (3.5-5.0); Albumin/Globulin Ratio 1.4; Alkaline Phosphatase 50 U/L (38-126); Anion Gap -2 mmol/L; Blood Urea Nitrogen 16 mg/dL (9-20); Calcium 8.6 mg/dL (8.4-10.2); Carbon Dioxide 29 mmol/L (22-30); Chloride 105 mmol/L (98-107); Globulin 2.3 g/dL; Glucose 94 mg/dL (74-99); Magnesium 2.1 mg/dL (1.6-2.3); Non-African American GFR(CKD) >90 (>60 ml/min/1.73 sqM); Potassium 4.1 mmol/L (3.5-5.1); Sodium 132 mmol/L (137-145); Total Bilirubin 0.7 mg/dL (0.2-1.3); Total Protein 5.6 g/dL (6.3-8.2)
[2024-01-04] MEDS ORDERED: AMINOPHYLLINE 500 MG/20 ML VIAL IV PRN (08:05)
[2024-01-04] MEDS ORDERED: CAFFEINE CITRATE 60 MG/3 ML VIAL IV PRN (08:05)
[2024-01-04] MEDS ORDERED: REGADENOSON 0.4 MG/5 ML SYRINGE IV PRN (08:05)
[2024-01-04] MEDS: ASPIRIN 81 MG PO SCH (08:32)
[2024-01-04] MEDS: HYDROcodone/APAP 5-325MG 1 EACH TAB PO PRN (08:32)
[2024-01-04] MEDS ORDERED: ASPIRIN 325 MG TAB PO SCH (09:00)
[2024-01-04 09:51] LABS: Chol/HDL Ratio 1.48 Ratio; LDL Cholesterol,Calculated 39.9 mg/dL (0.0-131.0); VLDL Calculation 13.06 mg/dL (5.00-40.00)
--- NOTE | 2024-01-04 10:26 | P.CRDCN ---
History of Present Illness Consult date: 01/04/24 Consult reason: chest pain (syncope) History of present illness: This is a 63-year-old male follows with a psychologist chief at [facility] w ith past medical history of coronary artery disease with self-reported VT in 2009 requiring 4 stents followed by another stent 1 year ago at [facility]. We have been asked to evaluate the patient for chest pain. Patient had onset of chest pain yesterday but has been going on and off since the last stent was done a year ago although when further questions patient is inconsistent with answers. He did have a syncopal episode which was new for him. He does also complain of dyspnea on exertion. He states the chest pain feels like an elephant on him or pressure. He denies PND. He does have history of bronchitis. He denies any bleeding or blood in his stools. He has no history of stroke or seizure. He denies use of caffeine. He denies any alcohol use daily. And no drug use. He is a smoker was 2 packs/day and now to 2 cigarettes/day. No history of diabetes or hypertension. He is only on aspirin at home. No chest wall tenderness. He has been started on a heparin drip. Blood pressure 109/72, heart rate 68, pulse ox 98% on room air. Patient has been started on aspirin 81 mg and atorvastatin -EKG: Sinus rhythm nonspecific changes, no acute ST changes. -CT a chest: No evidence of pulmonary embolism. No suspicious acute pulmonary process. -CT brain and cervical spine revealed no acute fracture or dislocation in the cervical spine. No acute intracranial hemorrhage, mass effect or midline shift. -Laboratory studies: WBC 4.1, hemoglobin 9.8, D-dimer 0.88. Sodium 132, p otassium 4.1, creatinine 0.71. Troponin negative x 3. Triglycerides 65, cholesterol 164, LDL 39, HDL 111. -Home cardiac medications: Aspirin 81 mg daily -Echocardiogram performed 12/17/2022 revealed normal left ventricular size and systolic function. Mild mitral and tricuspid regurgitation. -Cardiac catheterization performed by Dr. Moody in 11/2019: Mild in-stent restenosis involving the LAD, low left ventricular end-diastolic pressure. Medical therapy was recommended. Review Of Systems: At the time of my exam: CONSTITUTIONAL: Denies fever or chills. HEENT: Denies blurred vision, vision changes, or eye pain. Denies hemoptysis CARDIOVASCULAR: Denies chest pain. Denies orthopnea. Denies PND. Denies palpitations RESPIRATORY: Denies shortness of breath. GASTROINTESTINAL: Denies abdominal pain. Denies nausea or vomiting. HEMATOLOGIC: Denies bleeding disorders. GENITOURINARY: Denies any blood in urine. SKIN: Denies puritis. Denies rash. Physical examination: Gen: This is a 63-year-old black male in no acute distress. VS: reviewed HEENT: Head is atraumatic, normocephalic. Pupils equal, round. Sclerae is anicteric. NECK: Supple. No JVD. LUNGS: Clear to auscultation. No wheezes or rhonchi. No intercostal retractions. HEART: Regular rate and rhythm. Systolic murmur. ABDOMEN: Soft No tenderness. EXTREMITIES: No pedal edema. No calf tenderness. NEUROLOGICAL: Patient is awake, alert and oriented x3. Assessment: Atypical chest pain, acute coronary syndrome ruled out History of coronary artery disease with multiple stent placements in the past Tobacco use and dependence Noncompliance Plan: Continue aspirin and atorvastatin Discontinue heparin drip Obtain Lexiscan Cardiolite stress test Obtain 2-D echocardiogram and Doppler study to assess cardiac structure and function Further recommendations to follow based upon results of Lexiscan stress test and echocardiogram. Smoking cessation. Patient will be provided the [place] quit line information at discharge. Thank you kindly for this consultation. Nurse practitioner note has been reviewed, I agree with documented findings and plan of care. Patient was seen and examined. Past Medical History Past Medical History: Coronary Artery Disease (CAD), Chest Pain / Angina, Hyp erlipidemia, Myocardial Infarction (VT), Osteoarthritis (OA) Additional Past Medical History / Comment(s): arthritis in back and bilateral knees,hx hiatal hernia Last Myocardial Infarction Date:: 2004 History of Any Multi-Drug Resistant Organisms: Other MDRO Past Surgical History: Bowel Resection, Heart Catheterization With Stent Additional Past Surgical History / Comment(s): Cardiac stents x 4, bowel surgery for pinpoint hole in bowel, L knee arthroscopy, colonoscopy/benign polypectomies,hiatal hernia repair Past Anesthesia/Blood Transfusion Reactions: No Reported Reaction Date of Last Stent Placement:: 2013 Past Psychological History: Bipolar, Depression, PTSD, Schizophrenia Additional Psychological History / Comment(s): He states he goes to [facility]. Smoking Status: Current every day smoker Past Alcohol Use History: Occasional Additional Past Alcohol Use History / Comment(s): Pt states he started smoking in 1994 a pack will last him a month. Past Drug Use History: None Reported Additional Drug Use History / Comment(s): Pt states that he used MJ. Pt states that he has a history of cocaine, drinks a 12 pack per day. - Past Family History Father Family Medical History: Respiratory Disorder Additional Family Medical History / Comment(s): Father at age 64 from Black lung disease Mother Family Medical History: Hypertension, Myocardial Infarction (VT) Additional Family Medical History / Comment(s): Mother of an VT at 78yrs old. Brother(s) Family Medical History: Myocardial Infarction (VT) Additional Family Medical History / Comment(s): Patient has 10 brothers and 2 from myocardial infarction and had history of alcoholism. Sister(s) Family Medical History: Hypertension, Myocardial Infarction (VT) Additional Family Medical History / Comment(s): He has 7 sisters that are alive with no major medical problems. He has one son that has and one daughter that is alive and okay. Medications and Allergies Home Medications Medication Instructions Recorded Confirmed Type HYDROcodone/APAP 10-325MG [[place] 1 tab PO QID 12/17/22 01/03/24 History 10-325] Aspirin 81 mg PO DAILY #30 tab 12/18/22 01/03/24 Rx Allergies Allergy/AdvReac Type Severity Reaction Status Date / Time blueberry Allergy Rash/Hives Verified 01/03/24 09:55 nitroglycerin Allergy Swelling Verified 01/03/24 09:55 Physical Exam Vitals: Vital Signs Temp Pulse Pulse Pulse Pulse Pulse Resp 01/04/24 07:00 97.9 F 64 15 01/04/24 02:12 79 79 65 69 18 01/04/24 02:00 98.0 F 68 18 01/03/24 20:17 65 69 18 01/03/24 19:39 98.2 F 69 18 01/03/24 17:27 98 F 79 79 65 18 01/03/24 15:57 18 01/03/24 15:08 98.6 F 77 18 01/03/24 14:23 75 18 01/03/24 12:31 67 16 01/03/24 09:55 99.2 F 85 18 BP BP BP BP BP BP Pulse Ox 01/04/24 07:00 108/71 98 01/04/24 02:12 01/04/24 02:00 109/72 99 01/03/24 20:17 01/03/24 19:39 115/75 95 01/03/24 17:27 131/78 118/82 111/78 100 01/03/24 15:57 01/03/24 15:08 133/83 97 01/03/24 14:23 126/88 95 01/03/24 12:31 116/86 97 01/03/24 09:55 115/75 98 Intake and Output 01/03/24 01/04/24 01/04/24 22:59 06:59 14:59 Intake Total 424.368 360 Balance 424.368 360 Intake: Intake, IV Titration 69.368 Amount Heparin Sod,Pork in 0.45% 69.368 NaCl 25,000 unit In 0.45 % NaCl 1 250ml.bag @ 12 UNITS/KG/HR 8.818 mls/hr IV .Q24H [facility] Rx#: [id number] Oral 355 360 Other: Voiding Method Urinal Urinal # Voids 2 2 Weight 73.482 kg Results 01/04/24 02:25 01/04/24 02:25 Cardiac Enzymes 01/03/24 01/03/24 01/03/24 Range/Units 10:33 10:33 13:59 AST 35 (17-59) U/L Troponin I <0.012 <0.012 (0.000-0.034) ng/mL 01/03/24 01/04/24 Range/Units 19:20 02:25 AST 40 (17-59) U/L Troponin I <0.012 (0.000-0.034) ng/mL Coagulation 01/03/24 01/03/24 01/04/24 Range/Units 10:33 19:20 02:25 PT 9.6 L 10.2 (10.0-12.5) sec APTT 23.3 31.4 H (22.0-30.0) sec 01/04/24 01/04/24 Range/Units 02:25 06:01 PT (10.0-12.5) sec APTT 73.8 H 60.6 H (22.0-30.0) sec CBC 01/03/24 01/04/24 Range/Units 10:33 02:25 WBC 3.4 L 4.1 (3.8-10.6) k/uL RBC 3.92 L 3.64 L (4.30-5.90) m/uL Hgb 12.7 L 11.8 L (13.0-17.5) gm/dL Hct 39.4 37.3 L (39.0-53.0) % Plt Count 133 L 126 L (150-450) k/uL Comprehensive Metabolic Panel 01/03/24 01/04/24 Range/Units 10:33 02:25 Sodium 139 132 L (137-145) mmol/L Potassium 4.3 4.1 (3.5-5.1) mmol/L Chloride 109 H 105 (98-107) mmol/L Carbon Dioxide 26 29 (22-30) mmol/L BUN 11 16 (9-20) mg/dL Creatinine 0.77 0.71 (0.66-1.25) mg/dL Glucose 77 94 (74-99) mg/dL Calcium 8.9 8.6 (8.4-10.2) mg/dL AST 35 40 (17-59) U/L ALT 19 17 (4-49) U/L Alkaline Phosphatase 43 50 (38-126) U/L Total Protein 6.2 L 5.6 L (6.3-8.2) g/dL Albumin 3.8 3.3 L (3.5-5.0) g/dL Current Medications Generic Name Dose Route Start Last Admin Trade Name Freq PRN Reason Stop Dose Admin Acetaminophen 650 mg 01/03/24 13:36 Acetaminophen Tab 325 Mg Tab PO Q6HR PRN Mild Pain or Fever > 100.5 Hydrocodone Bitart/Acetaminophen 1 each 01/03/24 13:36 Hydrocodone/Apap 5-325mg 1 Each Tab PO Q4HR PRN Moderate Pain (Scale 4 to 6) Aspirin 81 mg 01/04/24 09:00 Aspirin 81 Mg PO DAILY [facility] Atorvastatin Calcium 40 mg 01/03/24 21:00 01/03/24 20:17 Atorvastatin 40 Mg Tab PO 40 mg HS [facility] Administration Heparin Sodium (Porcine) 0 unit 01/03/24 13:37 01/03/24 22:12 Heparin Sodium 1,000 Un/Ml (10ml Vl) IV 3,674 unit PER PROTOCOL PRN Administration Low PTT Protocol Heparin Sodium/Sodium Chloride 250 mls @ 8.818 mls/hr 01/03/24 13:45 01/03/24 22:07 25,000 unit/ Sodium Chloride IV 15 units/kg/hr .Q24H [facility] 11.022 mls/hr Titration Protocol 12 UNITS/KG/HR Morphine Sulfate 4 mg 01/03/24 13:36 01/04/24 06:24 Morphine Sulfate 4 Mg/Ml Syringe IV 4 mg Q4HR PRN Administration Severe Pain (Scale 7 to 10) Intake and Output 01/03/24 01/04/24 01/04/24 22:59 06:59 14:59 Intake Total 424.368 360 Balance 424.368 360 Intake: Intake, IV Titration 69.368 Amount Heparin Sod,Pork in 0.45% 69.368 NaCl 25,000 unit In 0.45 % NaCl 1 250ml.bag @ 12 UNITS/KG/HR 8.818 mls/hr IV .Q24H [facility] Rx#: [id number] Oral 355 360 Other: Voiding Method Urinal Urinal # Voids 2 2 Weight 73.482 kg 01/04/24 02:25 01/04/24 02:25
--- NOTE | 2024-01-04 11:37 | CA ---
Lexiscan Nuclear Stress Test Report Name: Lele Scott Exam Date: 01/04/2024 10:01 Exam Location: [facility] Stress Ht (in): Wt (lb): BSA: Ordering Phys: Erna Pepper Referring Phys: JACKIE, Technologist: KRISTEN,, Age: 63 Gender: M : 1960 Procedure CPT: Indications: Reflex order-Stress test ICD-10 Codes: Patient History: Chest pain, shortness of breath, palpitations and history of ASCAD Medications: Meds past 24 hrs: Pretest Chest Pain: STRESS TEST Lexiscan Protocol Exercise Duration (min:sec): 01:[address] Depressions (mm): Angina Score: Pascal Score: Resting HR (bpm): 54 Peak HR (bpm): 79 Resting BP (mmHg): 100 / 74 Peak BP (mmHg): 108 / 69 MPHR: 156 Target HR: 133 % MPHR: 51 METS: 1.0 Total Dose: Peak Dose: Atropine: Double Product: 8532 BP Response: Stress Termination: Completion of Infusion Stress Symptoms: NO SYMPTOMS Stress Summary: ECG ANALYSIS Resting ECG: Sinus rhythm. Normal conduction. No arrhythmias. Non-specific ST-T wave changes. Stress ECG: No ECG changes from baseline with Lexiscan infusion. CONCLUSIONS No ECG evidence of ischemia with Lexiscan infusion. Nuclear test results to follow. Dr. Deanne Starr MD (Electronically Signed) Final Date: 04 January 2024 11:37
--- NOTE | 2024-01-04 11:58 | NM ---
EXAMINATION TYPE: NM stress lexiscan cardiolite DATE OF EXAM: 01/04/2024 COMPARISON: NONE CLINICAL INDICATION: Male, 63 years old with history of chest pain; TECHNIQUE: After the intravenous administration of 10.27 mCi Tc 99m Sestamibi - Cardiolite resting S PECT images acquired 85 minutes post injection. The patient received 0.4mg Lexiscan, 23.7 mCi Tc 99m Sestamibi - Stress images obtained [address] injection FINDINGS: Review of stress and rest SPECT images demonstrates fixed perfusion defect involving the inferior wal l though more pronounced and larger on stress imaging. Gated analysis shows partial augmentation of the inferior wall with an estimated left ventricular ejection fraction of 58 %. TID is calculated at 1.16, upper limits of normal. IMPRESSION: Perfusion defect involving the inferior wall though larger and more pronounced on stress imaging. Fur ther clinical and EKG correlation recommended to differentiate between extensive diaphragmatic attenu ation artifact versus old inferior wall infarct, in which case, some subtle sydni-infarct ischemia wou ld be difficult to exclude. [facility], , 01/04/2024 11:55 AM
--- NOTE | 2024-01-04 13:33 | CA ---
Transthoracic Echo Report Name: Lele Scott Age: 63 Gender: M : 1960 Exam Date: 01/04/2024 11:51 Exam Location: [facility] Ht (in): 69 Wt (lb): 162 Ordering Physician: Erna Pepper Attending/Referring Phys: [id number], [employer] Specialist [place], [id number] Procedure CPT: Indications: LVF Cardiac Hx: Technical Quality: Good Contrast 1: Total Dose (mL): Contrast 2: Total Dose (mL): MEASUREMENTS (Male / Female) Normal Values 2D ECHO LV Diastolic Diameter PLAX 5.2 cm 4.2 - 5.9 / 3.9 - 5.3 cm LV Systolic Diameter PLAX 3.2 cm IVS Diastolic Thickness 1.1 cm 0.6 - 1.0 / 0.6 - 0.9 cm LVPW Diastolic Thickness 1.1 cm 0.6 - 1.0 / 0.6 - 0.9 cm LV Relative Wall Thickness 0.4 RV Internal Dim ED PLAX 3.2 cm LA Systolic Diameter LX 3.6 cm 3.0 - 4.0 / 2.7 - 3.8 cm LV Diastolic Volume MOD 4C 120.4 cm??? LV Systolic Volume MOD 4C 50.6 cm??? LV Ejection Fraction MOD 4C 58.0 % LV Cardiac Index MOD 4C 1951.2 cm???/min???m??? LV Diastolic Length 4C 8.1 cm LV Systolic Length 4C 6.0 cm LV Diastolic Volume MOD 2C 121.0 cm??? LV Systolic Volume MOD 2C 38.3 cm??? LV Ejection Fraction MOD 2C 68.3 % LV Cardiac Index MOD 2C 2310.2 cm???/min???m??? LV Diastolic Length 2C 8.5 cm LV Systolic Length 2C 6.4 cm LA Volume 83.8 cm??? 18 - 58 / 22 - 52 cm??? LA Volume Index 44.2 cm???/m??? 16 - 28 cm???/m??? M-MODE Aortic Root Diameter MM 3.7 cm AV Cusp Separation MM 2.8 cm DOPPLER AV Peak Velocity 147.4 cm/s AV Peak Gradient 8.7 mmHg MV Area PHT 3.4 cm??? Mitral E Point Velocity 60.5 cm/s Mitral A Point Velocity 53.5 cm/s Mitral E to A Ratio 1.1 MV Deceleration Time 226.4 ms TR Peak Velocity 229.0 cm/s TR Peak Gradient 21.0 mmHg Right Ventricular Systolic Press 25.4 mmHg FINDINGS Left Ventricle Left ventricular ejection fraction is estimated at 55-60 %. Mildly increased septal wall thickness. No obvious regional wall motion abnormalities.left ventricular cavity size normal. Right Ventricle Normal right ventricular size and function. Right ventricular systolic pressure within normal limits. Right Atrium Normal right atrial size. No right atrial thrombus or mass seen. Left Atrium Severely increased left atrial volume. Mildly increased left atrial area. Mitral Valve Structurally normal mitral valve. Mild mitral regurgitation.mitral valve thickened. Aortic Valve Trileaflet aortic valve. No aortic valve stenosis or regurgitation. Tricuspid Valve Structurally normal tricuspid valve. Mild to moderate tricuspid regurgitation. Pulmonic Valve Structurally normal pulmonic valve. No pulmonic regurgitation. Pericardium No pericardial or pleural effusion. Aorta Normal size aortic root and proximal ascending aorta. CONCLUSIONS 1. Normal left ventricular size and systolic function 2. Mild mitral with [id number] tricuspid regurgitation Previewed by: Dr. Deanne Starr MD (Electronically Signed) Final Date: 04 January 2024 13:32
--- NOTE | 2024-01-04 13:36 | P.PN ---
Subjective Progress Note Date: 01/04/24 Hospital Course: Patient is a very pleasant 63-year-old male with a past medical history of CAD status post stenting, hypertension, hyperlipidemia, bowel resection secondary to perforation, anxiety and depression, bipolar disorder, PTSD, schizophrenia, and nicotine use reported smoking 2 cigarettes daily. He presented to the emergency department with a chief complaint of chest pain and syncopal episode. Patient reports he was in the shower this morning around 6 AM and began to feel a pressure-like sensation to his midsternal chest. He states this pain worsened and became more severe more like a heaviness so he got out of the shower and then began to feel dizzy and passed out. Patient reports he believes he hit his head and neck on the sink on the way down. Patient reports continued 10 out of 10 chest pain/pressure along with soreness to right side of head, neck, and shoulder from fall/syncopal episode. Denies having any dizziness, lightheade dness, changes in vision or hearing, shortness of breath, cough or congestion, nausea, vomiting, or experiencing any numbness/tingling/weakness/swelling in his extremities. He reports last stent was placed approximately 1 year ago and he was seen by a erp technical lead out in [place] but he lives out here and does not have a local erp technical lead. Arrival to the emergency department, patient underwent eval uation. Vital signs upon arrival show blood pressure 115/75, heart rate 85, respiratory rate 18, temp 99.2 F, and SpO2 of 98% on room air. EKG completed showing normal sinus rhythm at 75 bpm with no significant T wave or ST abnormality showing no signs of acute ischemia upon personal review and i nterpretation. CT head negative for acute intracranial process. CT cervical spine negative showing no acute fracture or dislocation. X-ray right shoulder negative for acute fracture or dislocation. CTA chest showing no evidence for pulmonary emboli and negative for acute cardiopulmonary process. Labs completed and reviewed. CBC showing pancytopenia with WBC count of 3.4, hemoglobin 12.7, and platelet count of 133 along with macrocytosis with MCV of 100.3. Coagulation profile showing low PT of 9.6 and elevated D-dimer of 0.88. BMP showing hyperchloremia with chloride of 109 otherwise normal findings. Blood glucose 77. Troponin was negative at less than 0.012. Patient admitted under our services with consultation to cardiology. Patient continues to report 10 out of 10 crushing chest pain. Will start patient on low intensity heparin infusion for treatment of angina and due to reported allergy to nitroglycerin unable to give sublingual nitro and Nitropaste. Physical exam: Patient seen and fully evaluated this morning upon return from cardiac cath. He reports chest pain remains but feels better than it was yesterday. He reports is still pressure-like something very heavy on his chest but states he is no longer feeling the crushing pain. He denies having any other complaints at this time. Vital signs reviewed and stable. General: Nontoxic, no distress and appears stated age. Derm: Skin warm and dry, normal coloration for ethnicity. Head: Atraumatic, normocephalic and symmetric. Eyes: EOM's intact, no lid lag, and anicteric sclera Mouth: no lip lesions, mucus membranes moist Cardiovascular: regular rate and rhythm with normal S1S2, no murmur, positive posterior tibial pulses bilaterally, and cap refill < 2 seconds. Lungs: Respirations even, regular, and unlabored on room air. Lungs CTA bilaterally, no rhonchi, no rales, no wheezing, and no accessory muscle usage. Abdominal: soft, nontender to palpation, no guarding, no appreciable organomegaly Ext: ROM intact. No gross muscle atrophy, no edema, no contractures Neuro: Speech clear, face symmetrical and CN II-XII grossly intact with no noted focal neuro deficits Psych: Alert and oriented to person, place, time, and situation. Appropriate and pleasant affect. Assessment and Plan of Care: Unstable angina History of CAD status post stenting Hypertension Hyperlipidemia -Cardiology following, patient underwent cardiac stress test this morning and Lexiscan stress test positive for perfusion defect involving the inferior wall reported to appear larger and more pronounced on stress. -Telemetry monitoring -Negative at less than 0.012 x 3 draws. -Cardiac diet, NPO at midnight -Aspirin 81 mg daily, atorvastatin, -Lipid profile with a.m. labs. -Echocardiogram completed and currently pending results. Chronic conditions: Previously diagnosed renal and hepatic cysts Previous bowel perforation followed by resection Depression and anxiety Bipolar disorder Schizophrenia Data and imaging reviewed: -Labs reviewed. CBC showing stable bicytopenia with hemoglobin of 11.8 and platelet count of 126 and continued macrocytosis with MCV of 102.3. PTT was therapeutic this morning at 60.6. BMP showing mild hyponatremia sodium of 132 otherwise normal findings. Liver profile unremarkable. Lipid profile showing elevated HDL of 111 otherwise unremarkable. Troponins were trended all negative at less than 0.012 x 3 draws. -Vital signs reviewed. Blood pressure 108/71, heart rate 64, respiratory rate 15, temp 97.9 F, and SpO2 of 98% on room air. CODE STATUS: Full code DVT prophylaxis: Heparin Anticipated discharge date: Pending clinical course, likely 24 to [address]: Home Patient was seen independently by Nurse Practitioner. This document was prepared using [employer] dictation software. Please allow for errors in special distribution clerk while rare they do occur. Layo Muller NP rendered care for this patient independently, reviewed the findings and plan as documented in the note above and agree with plan. I did not physically speak with or examine the patient on this date. . Objective - Vital Signs Vital signs: Vital Signs Temp 97.9 F 01/04/24 07:00 Pulse 64 01/04/24 07:00 Resp 15 01/04/24 07:00 BP 108/71 01/04/24 07:00 Pulse Ox 98 01/04/24 07:00 FiO2 Intake & Output 01/03/24 01/04/24 01/04/24 18:59 06:59 18:59 Intake Total 118 666.368 Balance 118 666.368 Weight 73.482 kg Intake: Intake, IV Titration 69.368 Amount Heparin Sod,Pork in 0.45% 69.368 NaCl 25,000 unit In 0.45 % NaCl 1 250ml.bag @ 12 UNITS/KG/HR 8.818 mls/hr IV .Q24H [facility] Rx#: [id number] Oral [id number] Other: Voiding Method Urinal # Voids 2 - Labs CBC & Chem 7: 01/04/24 02:25 01/04/24 02:25 Labs: Abnormal Lab Results - Last 24 Hours (Table) 01/03/24 01/03/24 01/03/24 Range/Units 10:33 10:33 10:33 WBC 3.4 L (3.8-10.6) k/uL RBC 3.92 L (4.30-5.90) m/uL Hgb 12.7 L (13.0-17.5) gm/dL Hct (39.0-53.0) % MCV 100.3 H (80.0-100.0) fL Plt Count 133 L (150-450) k/uL PT 9.6 L (10.0-12.5) sec APTT (22.0-30.0) sec D-Dimer 0.88 H (<0.60) mg/L FEU Sodium (137-145) mmol/L Chloride 109 H (98-107) mmol/L Total Protein 6.2 L (6.3-8.2) g/dL Albumin (3.5-5.0) g/dL 01/03/24 01/04/24 01/04/24 Range/Units 19:20 02:25 02:25 WBC (3.8-10.6) k/uL RBC 3.64 L (4.30-5.90) m/uL Hgb 11.8 L (13.0-17.5) gm/dL Hct 37.3 L (39.0-53.0) % MCV 102.3 H (80.0-100.0) fL Plt Count 126 L (150-450) k/uL PT (10.0-12.5) sec APTT 31.4 H (22.0-30.0) sec D-Dimer (<0.60) mg/L FEU Sodium 132 L (137-145) mmol/L Chloride (98-107) mmol/L Total Protein 5.6 L (6.3-8.2) g/dL Albumin 3.3 L (3.5-5.0) g/dL 01/04/24 01/04/24 Range/Units 02:25 06:01 WBC (3.8-10.6) k/uL RBC (4.30-5.90) m/uL Hgb (13.0-17.5) gm/dL Hct (39.0-53.0) % MCV (80.0-100.0) fL Plt Count (150-450) k/uL PT (10.0-12.5) sec APTT 73.8 H 60.6 H (22.0-30.0) sec D-Dimer (<0.60) mg/L FEU Sodium (137-145) mmol/L Chloride (98-107) mmol/L Total Protein (6.3-8.2) g/dL Albumin (3.5-5.0) g/dL
[2024-01-04] MEDS: DOCUSATE 100 MG CAP PO PRN (22:06)
[2024-01-04] MEDS: MELATONIN 5 MG TABLET PO PRN (22:06)
[2024-01-05 08:12] VITALS: BP 118/81; PULSE 69; RESP 15; TEMP 97.8
--- NOTE | 2024-01-05 09:52 | P.DS ---
Providers Date of admission: 01/03/24 12:33 Expected date of discharge: 01/05/24 Attending physician: Jeramy Byrd Consults: 01/03/24 12:33 Consult Physician Urgent Consulting Provider: Yifan Suarez Consult Reason/Comments: cp, syncope Do you want consulting provider notified?: Yes Primary care physician: Physician Nonstaff Hospital Course: Discharge Diagnosis: Unstable angina History of CAD status post stenting Hypertension Hyperlipidemia Nicotine dependence, strongly recommend smoking cessation. Discussed with patient. Previously diagnosed renal and hepatic cysts Previous bowel perforation followed by resection Depression and anxiety Bipolar disorder Schizophrenia Hospital Course: Patient is a very pleasant 63-year-old male with a past medical history of CAD status post stenting, hypertension, hyperlipidemia, bowel resection secondary to perforation, anxiety and depression, bipolar disorder, PTSD, schizophrenia, and nicotine use reported smoking 2 cigarettes daily. He presented to the emergency department with a chief complaint of chest pain and syncopal episode. Patient reports he was in the shower this morning around 6 AM and began to feel a pressure-like sensation to his midsternal chest. He states this pain worsened and became more severe more like a heaviness so he got out of the shower and then began to feel dizzy and passed out. Patient reports he believes he hit his head and neck on the sink on the way down. Patient reports continued 10 out of 10 chest pain/pressure along with soreness to right side of head, neck, and shoulder from fall/syncopal episode. Denies having any dizziness, lightheadedness, changes in vision or hearing, shortness of breath, cough or congestion, nausea, vomiting, or experiencing any numbness/tingling/weakness/swelling in his extremities. He reports last stent was placed approximately 1 year ago and he was seen by a backer up out in [place] but he lives out here and does not have a local backer up. Arrival to the emergency department, patient underwent evaluation. Vital signs upon arrival show blood pressure 115/75, heart rate 85, respiratory rate 18, temp 99.2 F, and SpO2 of 98% on room air. EKG completed showing normal sinus rhythm at 75 bpm with no significant T wave or ST abnormality showing no signs of acute ischemia upon personal review and interpretation. CT head negative for acute intracranial process. CT cervical spine negative showing no acute fracture or dislocation. X-ray right shoulder negative for acute fracture or dislocation. CTA chest showing no evidence for pulmonary emboli and negative for acute cardiopulmonary process. Labs completed and reviewed. CBC showing pancytopenia with WBC count of 3.4, hemoglobin 12.7, and platelet count of 133 along with macrocytosis with MCV of 100.3. Coagulation profile showing low PT of 9.6 and elevated D-dimer of 0.88. BMP showing hyperchloremia with chloride of 109 otherwise normal findings. Blood glucose 77. Troponin was negative at less than 0.012. Patient admitted under our services with consultation to ca rdiology. Patient continues to report 10 out of 10 crushing chest pain. Will start patient on low intensity heparin infusion for treatment of angina and due to reported allergy to nitroglycerin unable to give sublingual nitro and Nitropaste. Troponins were trended all negative at less than 0.012 x 3 draws. Lipid profile was completed and was unremarkable. Echocardiogram completed showing a preserved EF of 55 to 60% with mild mitral and mild to moderate tricuspid regurgitation. Lexiscan stress test reported perfusion defect involving the inferior wall throughout larger and more pronounced on stress imaging. Stress testing was reviewed by backer up, recommending patient to increase ambulation and if symptoms remained resolved patient cleared from cardiology perspective. Patient ambulating up and down the halls and around unit on 6 N. and reports feeling great and ready for discharge. He denies return of chest pain or discomfort or any other complaints at this time. Patient educated on the importance of smoking cessation and outpatient follow-up with backer up and PCP. Patient denies having any needs for prescription refills or any further questions at this time. Patient to be provided with appointment with residency clinic and backer up prior to discharge, discussed this with nursing staff.. Physical exam: Vital signs reviewed and stable. General: Nontoxic, no distress and appears stated age. Derm: Skin warm and dry, normal coloration for ethnicity. Head: Atraumatic, normocephalic and symmetric. Eyes: EOM's intact, no lid lag, and anicteric sclera Mouth: no lip lesions, mucus membranes moist Cardiovascular: regular rate and rhythm with normal S1S2, no murmur, positive posterior tibial pulses bilaterally, and cap refill < 2 seconds. Lungs: Respirations even, regular, and unlabored on room air. Lungs CTA bilaterally, no rhonchi, no rales, no wheezing, and no accessory muscle usage. Abdominal: soft, nontender to palpation, no guarding, no appreciable organomegaly Ext: ROM intact. No gross muscle atrophy, no edema, no contractures Neuro: Speech clear, face symmetrical and CN II-XII grossly intact with no noted focal neuro deficits Psych: Alert and oriented to person, place, time, and situation. Appropriate and pleasant affect. A total of 38 minutes of time were spent preparing this complex discharge summary. Pt was discharged on 01/05/2024 at 9:52 AM. Patient was seen independently by Nurse Practitioner. This document was prepared using InMy[employer] dictation software. Please allow for errors in undercutter operator while rare they do occur. Layo Muller NP rendered care for this patient independently, reviewed the findings and plan as documented in the note above. I did not physically speak with or examine the patient on this date. Patient Condition at Discharge: Stable Plan - Discharge Summary Discharge Rx Participant: Yes New Discharge Prescriptions: No Action Aspirin 81 mg PO DAILY #30 tab HYDROcodone/APAP 10-325MG [[place] 10-325] 1 tab PO QID Discharge Medication List HYDROcodone/APAP 10-325MG [[place] 10-325] 1 tab PO QID 12/17/22 [History] Aspirin 81 mg PO DAILY #30 tab 12/18/22 [Rx] Follow up Appointment(s)/Referral(s): Primo Moody MD [STAFF PHYSICIAN] - 01/21/24 2:15 pm [facility] [NON-STAFF] - 1 Week (Please call and schedule first available appointment for patient PRIOR to discharging. ) Patient Instructions/Handouts: Regadenoson (By injection), Chest Pain (DC) Activity/Diet/Wound Care/Special Instructions: Activity: As tolerated. Take breaks as needed. Diet: Heart healthy and carb consistent diet. Avoid salts, or foods with hidden salts such as canned or boxed foods and frozen dinners. Extra salt makes your heart work harder and traps the fluid in your body for longer. Special Instructions: Take all of your medications as directed and remember to keep all of your doctor's appointments and follow-up as needed. Thank you for allowing us to participate in your care, it was truly a pleasure having you for our patient!!! Discharge Disposition: HOME SELF-CARE
--- NOTE | 2024-01-05 09:58 | P.PN ---
Subjective Progress Note Date: 01/05/24 Consult reason: chest pain (syncope) History of present illness: This is a 63-year-old male follows with a wheat and oats flake miller at [facility] with past medical history of coronary artery disease with self-reported MD in 2009 requiring 4 stents followed by another stent 1 year ago at [facility]. We have been asked to evaluate the patient for chest pain. Patient had onset of chest pain yesterday but has been going on and off since the last stent was done a year ago although when further questions patient is inconsistent with answers. He did have a syncopal episode which was new for him. He does also complain of dyspnea on exertion. He states the chest pain feels like an elephant on him or pressure. He denies PND. He does have history of bronchitis. He denies any bleeding or blood in his stools. He has no history of stroke or seizure. He denies use of caffeine. He denies any alcohol use daily. And no drug use. He is a smoker was 2 packs/day and now to 2 cigarettes/day. No history of diabetes or hypertension. He is only on aspirin at home. No chest wall tenderness. He has been started on a heparin drip. Blood pressure 109/72, heart rate 68, pulse ox 98% on room air. Patient has been started on aspirin 81 mg and atorvastatin -EKG: Sinus rhythm nonspecific changes, no acute ST changes. -CT a chest: No evidence of pulmonary embolism. No suspicious acute pulmonary process. -CT brain and cervical spine revealed no acute fracture or dislocation in the cervical spine. No acute intracranial hemorrhage, mass effect or midline shift. -Laboratory studies: WBC 4.1, hemoglobin 9.8, D-dimer 0.88. Sodium 132, potassium 4.1, creatinine 0.71. Troponin negative x 3. Triglycerides 65, cholesterol 164, LDL 39, HDL 111. -Home cardiac medications: Aspirin 81 mg daily -Echocardiogram performed 12/17/2022 revealed normal left ventricular size and systolic function. Mild mitral and tricuspid regurgitation. -Cardiac catheterization performed by Dr. Moody in 11/2019: Mild in-stent restenosis involving the LAD, low left ventricular end-diastolic pressure. Medical therapy was recommended. 01/04/24 Patient is seen and examined. Yesterday he underwent a Rebeca scan Cardiolite stress test that that showed primarily a fixed defect and there is extensive diaphragmatic attenuation artifact. Echocardiogram reveals EF of 55 to 60%, mild mitral with mild to moderate tricuspid regurgitation. Patient denies having any chest pain, no shortness of breath, no palpitations. Blood pressure 118/81, heart rate 69, pulse ox 99% on room air. Physical examination: Gen: This is a 63-year-old black male in no acute distress. VS: reviewed HEENT: Head is atraumatic, normocephalic. Pupils equal, round. Sclerae is anicteric. NECK: Supple. No JVD. LUNGS: Clear to auscultation. No wheezes or rhonchi. No intercostal retractions. HEART: Regular rate and rhythm. Systolic murmur. ABDOMEN: Soft No tenderness. EXTREMITIES: No pedal edema. No calf tenderness. NEUROLOGICAL: Patient is awake, alert and oriented x3. Assessment: Atypical chest pain, acute coronary syndrome ruled out History of coronary artery disease with multiple stent placements in the past Tobacco use and dependence Noncompliance Plan: Continue aspirin and atorvastatin Patient to increase activity and monitor for symptoms. If patient is asymptomatic with activity, patient is cleared for discharge and may follow-up in the office with Dr. Moody. Reiterated to the patient the importance of follow-up in the office and he agrees to do so. Smoking cessation. Patient will be provided the [employer] quit line information at discharge. Nurse practitioner note has been reviewed, I agree with documented findings and plan of care. Patient was seen and examined. Objective - Vital Signs Vital signs: Vital Signs Temp 97.6 F 01/05/24 02:00 Pulse 56 L 01/05/24 02:00 Resp 18 01/05/24 02:00 BP 108/74 01/05/24 02:00 Pulse Ox 99 01/05/24 02:00 FiO2 Intake & Output 01/04/24 01/05/24 01/05/24 18:59 06:59 18:59 Intake Total 336.445 Balance 336.445 Intake: Intake, IV Titration 114.445 Amount Heparin Sod,Pork in 0.45% 114.445 NaCl 25,000 unit In 0.45 % NaCl 1 250ml.bag @ 12 UNITS/KG/HR 8.818 mls/hr IV .Q24H [facility] Rx#: [id number] Oral 222 Other: Voiding Method Toilet Urinal # Voids 3 1 - Labs CBC & Chem 7: 01/04/24 02:25 01/04/24 02:25 Labs: Abnormal Lab Results - Last 24 Hours (Table) 01/04/24 Range/Units 02:25 HDL Cholesterol 111.00 H (40.00-60.00) mg/dL
== END 2024-01-05 11:06 | disposition home or self-care (01) | DRG 315 ==
LOC: EC 09:47 → OBSVTOIN 12:33 → 6NMEDSUR 12:33
PROVIDERS: ADMIT Student in an Organized Health Care Education/Training Program; ATTEND Student in an Organized Health Care Education/Training Program
PROC: 4A02XM4 Measurement of Cardiac Total Activity, External Approach (ICD-10-PCS; principal; 2024-01-04)
DX: T82.855A Stenosis of coronary artery stent, initial encounter (principal); D61.818 Other pancytopenia; I25.110 Atherosclerotic heart disease of native coronary artery with unstable angina pectoris; I25.2 Old myocardial infarction; K76.89 Other specified diseases of liver; Z79.02 Long term (current) use of antithrombotics/antiplatelets; Z79.82 Long term (current) use of aspirin; Z82.49 Family history of ischemic heart disease and other diseases of the circulatory system; Z91.199 Patient's noncompliance with other medical treatment and regimen due to unspecified reason; F43.10 Post-traumatic stress disorder, unspecified; I10 Essential (primary) hypertension; F41.9 Anxiety disorder, unspecified; Z71.6 Tobacco abuse counseling; F31.9 Bipolar disorder, unspecified; F17.210 Nicotine dependence, cigarettes, uncomplicated; E78.5 Hyperlipidemia, unspecified; E87.8 Other disorders of electrolyte and fluid balance, not elsewhere classified; D75.89 Other specified diseases of blood and blood-forming organs; I08.1 Rheumatic disorders of both mitral and tricuspid valves; M19.09 Primary osteoarthritis, other specified site; M17.0 Bilateral primary osteoarthritis of knee; F20.9 Schizophrenia, unspecified
CPT/HCPCS: 36415; 70450; 71275; 72125; 78452; 80053; 80061; 83735; 84484; 85025; 85027; 85379; 85610; 85730; 93005; 93017; 93306; 96374; 96375; 96376; 99285

== ENCOUNTER 2024-01-09 23:42 | Observation (INO) | payer MEDICARE, OTHER ==
--- NOTE | 2024-01-10 00:09 | ED ---
General Adult HPI - General Chief complaint: Chest Pain Stated complaint: Syncope Time Seen by Provider: 01/09/24 23:54 Source: patient Mode of arrival: ambulatory Limitations: no limitations - History of Present Illness Initial comments: Patient is a 63-year-old male with a past medical history of prior ID, CAD, current smoking presenting today for syncopal episode and chest pain. Patient states that he presented for similar presentation about 5 days ago and was admitted the hospital. States that he had eaten dinner with his friend and gone to take a shower, after stepping out of the shower he felt lightheaded, central chest pressure and passed out. He estimates he was unconscious for about 10 minutes and states that he hit his right shoulder and the right side of his head on the sink. He currently denies any neck pain, endorsing right shoulder and chest pressure. Endorses lightheadedness, denies dizziness, changes in vision, slurred speech, new numbness or weakness. States his chest pain is nonradiating and is in the center of his chest like somebody sitting on his chest. Endorses associated shortness of breath denies cough productive sputum or hemoptysis. No lower extremity swelling. Took 2 baby aspirin prior to arrival. Is allergic to nitroglycerin stating that his tongue swells when he receives this. Currently smokes 2 cigarettes a day. Denies any illicit drug use including cocaine. Endorsed alcohol use today. - Related Data Home Medications Medication Instructions Recorded Confirmed HYDROcodone/APAP 10-325MG [[place] 1 tab PO QID 12/17/22 01/03/24 10-325] Previous Rx's Medication Instructions Recorded Aspirin 81 mg PO DAILY #30 tab 12/18/22 Allergies Allergy/AdvReac Type Severity Reaction Status Date / Time blueberry Allergy Rash/Hives Verified 01/09/24 23:45 nitroglycerin Allergy Swelling Verified 01/09/24 23:45 Review of Systems ROS Statement: Those systems with pertinent positive or pertinent negative responses have been documented in the HPI. ROS Other: All systems not noted in ROS Statement are negative. Past Medical History Past Medical History: Coronary Artery Disease (CAD), Chest Pain / Angina, Hyperlipidemia, Myocardial Infarction ([place]), Osteoarthritis (OA) Additional Past Medical History / Comment(s): arthritis in back and bilateral knees,hx hiatal hernia Last Myocardial Infarction Date:: 2004 History of Any Multi-Drug Resistant Organisms: Other MDRO Past Surgical History: Bowel Resection, Heart Catheterization With Stent Additional Past Surgical History / Comment(s): Cardiac stents x 4, bowel surgery for pinpoint hole in bowel, L knee arthroscopy, colonoscopy/benign polypectomies,hiatal hernia repair Past Anesthesia/Blood Transfusion Reactions: No Reported Reaction Date of Last Stent Placement:: 2013 Past Psychological History: Bipolar, Depression, PTSD, Schizophrenia Smoking Status: Current every day smoker Past Alcohol Use History: Occasional Past Drug Use History: None Reported - Past Family History Father Family Medical History: Respiratory Disorder Additional Family Medical History / Comment(s): Father at age 64 from Black lung disease Mother Family Medical History: Hypertension, Myocardial Infarction ([place]) Additional Family Medical History / Comment(s): Mother of an ID at 78yrs old. Brother(s) Family Medical History: Myocardial Infarction ([place]) Additional Family Medical History / Comment(s): Patient has 10 brothers and 2 from myocardial infarction and had history of alcoholism. Sister(s) Family Medical History: Hypertension, Myocardial Infarction ([place]) Additional Family Medical History / Comment(s): He has 7 sisters that are alive with no major medical problems. He has one son that has and one daughter that is alive and okay. General Exam - General Exam Comments Initial Comments: PE: CONSTITUTIONAL: No apparent distress, well appearing SKIN: Warm, dry, no jaundice, hives or petechiae EYES: Pupils are equally round, extraocular movements intact without nystagmus, clear conjunctiva, non-icteric sclera HENT: Normocephalic, atraumatic, no hematomas or other evidence of head trauma moist mucus membranes, oropharynx clear without exudates NECK: , [Full range of motion, normal appearance, no midline spinal tenderness palpation, no midline pain or radiculopathy or numbness in his extremities when moving his neck through full range of motion PULMONARY: Clear to auscultation without wheezes, rhonchi, or rales, normal excursion, no accessory muscle use and no stridor CARDIOVASCULAR: Regular rate, rhythm, normal S1 and S2. No appreciated murmurs, rubs or gallops. Strong radial pulses with intact distal perfusion. No lower extremity edema GASTROINTESTINAL: Soft, active bowel sounds throughout, non-tender, non-dist ended, no palpable masses, no rebound or guarding. No hepatosplenomegaly MUSCULOSKELETAL: Right lateral shoulder and AC joint are TTP, patient does seem to have an exagerated pain response when this area is lightly touched, no gross deformity, no bony tenderness to palpation, no's overlying skin changes patient able to range his right upper extremity for full range of motion extremities have no gross deformity, no edema, redness, or swelling. No calf swelling NEUROLOGIC:_a/o x 3, GCS 15, normal mentation and speech. Moves all extremities x 4 without motor or sensory deficit PSYCHIATRIC:_normal mood and affect, thought process is clear and linear Limitations: no limitations Course Vital Signs 01/09/24 01/10/24 23:43 03:47 Temperature 98.8 F Pulse Rate 105 H 78 Respiratory 18 17 Rate Blood Pressure 129/86 115/74 O2 Sat by Pulse 97 97 Oximetry EKG Findings - EKG Comments: EKG Findings:: Sinus rhythm, rate 94 bpm, MT interval 132 ms, QRS duration 90 ms, QT/QTc 363/415 ms, borderline left axis deviation, no ST elevations or de pressions, no arrhythmia, no Brugada pattern no delta waves, EKG performed on 01/04/2024, new T wave inversion in aVR, otherwise no significant changes no new ST elevations or depressions. Repeat EKG performed at 00:21 due to persistent chest pain, unchanged from first, sinus rhythm, rate 86 bpm, MT interval 164 ms, QRS duration 88 ms, QT/QTc 375/419 seconds, left axis deviation, no ST elevations or depressions Medical Decision Making - Medical Decision Making Was pt. sent in by a medical professional or institution (, PA, PUBLIC RELATIONS DIRECTOR, urgent care, hospital, or detention...) When possible be specific @ -No Did you speak to anyone other than the patient for history (EMS, parent, family, police, friend...)? What history was obtained from this source @ -No Did you review nursing and triage notes (agree or disagree)? Why? @ -I reviewed and agree with nursing and triage notes Were old charts reviewed (outside hosp., previous admission, EMS record, old EKG, old radiological studies, urgent care reports/EKG's, detention records)? Report findings @ -No old charts were reviewed Differential Diagnosis (chest pain, altered mental status, abdominal pain women, abdominal pain men, vaginal bleeding, weakness, fever, dyspnea, syncope, hea dache, dizziness, GI bleed, back pain, seizure, CVA, palpatations, mental health, musculoskeletal)? @ -Not applicable EKG interpreted by me (3pts min.). @ -As above X-rays interpreted by me (1pt min.). @ -None done CT interpreted by me (1pt min.). @ -None done U/S interpreted by me (1pt. min.). @ -None done What testing was considered but not performed or refused? (CT, X-rays, U/S, labs)? Why? @ -None What meds were considered but not given or refused? Why? @ -None Did you discuss the management of the patient with other professionals (professionals i.e. , PA, PUBLIC RELATIONS DIRECTOR, lab, RT, psych nurse, social media coordinator, assistant professor of religion, teacher, seismology technical officer, piano case maker)? Give summary @ -No Was smoking cessation discussed for >3mins.? @ -No Was critical care preformed (if so, how long)? @ -No Were there social determinants of health that impacted care today? How? (Homelessness, low income, unemployed, alcoholism, drug addiction, transportation, low edu. Level, literacy, decrease access to med. care, [facility], rehab)? @ -No Was there de-escalation of care discussed even if they declined (Discuss DNR or withdrawal of care, Hospice)? @ -No What co-morbidities impacted this encounter? (DM, HTN, Smoking, COPD, CAD, Cancer, CVA, ARF, Chemo, Hep., AIDS, mental health diagnosis, sleep apnea, morbid obesity)? @ -None Was patient admitted / discharged? Hospital course, mention meds given and route, prescriptions, significant lab abnormalities, going to OR and other pertinent info. @ -Hospital course Patient is a 63 old gentleman history CAD, current smoker presenting for syncopal episode and chest pressure. Well-appearing and in no acute distress on assessment. Neurologically intact, reassuring cardiac exam, head is atraumatic, cervical spine has no midline tenderness, 2+ extremities in the bilateral 2+ pulses in the bilateral upper extremities, no chest wall tenderness with patient, lungs clear to auscultation bilaterally. Plan for cardiac workup. Do not feel CT brain is indicated at this point due to patient's syncopal episode and no evidence of head trauma, no focal neurologic deficits on exam. Will plan for XR right shoulder, morphine for pain control. pt agreeable with POC. Labs and imaging reviewed. Grossly within normal limits. Significant for D- dimer 1.00, otherwise abnormal values not concerning for acute pathology related to presenting complaint. CT PE study negative for pulmonary embolism The patient's persistent pain, elevated heart score and recent abnormal stress test I will admit for observation for chest pain. Undiagnosed new problem with uncertain prognosis? @ -No Drug Therapy requiring intensive monitoring for toxicity (Heparin, Nitro, Insulin, Cardizem)? @ -No Were any procedures done? @ -No Diagnosis/symptom? @ -Default Acute, or Chronic, or Acute on Chronic? @ -Default Uncomplicated (without systemic symptoms) or Complicated (systemic symptoms)? @ -Default Side effects of treatment? @ -No Exacerbation, Progression, or Severe Exacerbation? @ -No Poses a threat to life or bodily function? How? (Chest pain, [place], ID, pneumonia, PE, COPD, DKA, ARF, appy, cholecystitis, CVA, Diverticulitis, Homicidal, Suicidal, threat to staff... and all critical care pts) @ -No - Lab Data Result diagrams: 01/10/24 00:18 01/10/24 00:18 Lab Results 01/10/24 01/10/24 01/10/24 Range/Units 00:18 00:18 00:18 WBC 3.6 L (3.8-10.6) k/uL RBC 4.03 L (4.30-5.90) m/uL Hgb 13.0 (13.0-17.5) gm/dL Hct 40.0 (39.0-53.0) % MCV 99.2 (80.0-100.0) fL MCH 32.2 (25.0-35.0) pg MCHC 32.5 (31.0-37.0) g/dL RDW 14.8 (11.5-15.5) % Plt Count 204 (150-450) k/uL MPV 8.6 Neutrophils % (Manual) 40 % Lymphocytes % (Manual) 51 % Monocytes % (Manual) 9 % Neutrophils # (Manual) 1.44 (1.3-7.7) k/uL Lymphocytes # (Manual) 1.84 (1.0-4.8) k/uL Monocytes # (Manual) 0.32 (0-1.0) k/uL Nucleated RBCs 0 (0-0) /100 WBC Manual Slide Review Performed PT 9.6 L (10.0-12.5) sec INR 0.8 (<1.2) APTT 23.3 (22.0-30.0) sec D-Dimer 1.00 H (<0.60) mg/L FEU Sodium 141 (137-145) mmol/L Potassium 4.7 (3.5-5.1) mmol/L Chloride 112 H (98-107) mmol/L Carbon Dioxide 21 L (22-30) mmol/L Anion Gap 8 mmol/L BUN 11 (9-20) mg/dL Creatinine 0.89 (0.66-1.25) mg/dL Est GFR (CKD-EPI)AfAm >90 (>60 ml/min/1.73 sqM) Est GFR (CKD-EPI)NonAf >90 (>60 ml/min/1.73 sqM) Glucose 79 (74-99) mg/dL Calcium 9.3 (8.4-10.2) mg/dL Magnesium 1.9 (1.6-2.3) mg/dL Total Bilirubin 0.6 (0.2-1.3) mg/dL AST 33 (17-59) U/L ALT 19 (4-49) U/L Alkaline Phosphatase 40 (38-126) U/L Troponin I (0.000-0.034) ng/mL NT-Pro-B Natriuret Pep 28 pg/mL Total Protein 6.8 (6.3-8.2) g/dL Albumin 4.3 (3.5-5.0) g/dL Lipase 159 (23-300) U/L Serum Alcohol mg/dL 01/10/24 01/10/24 01/10/24 Range/Units 00:18 00:33 02:53 WBC (3.8-10.6) k/uL RBC (4.30-5.90) m/uL Hgb (13.0-17.5) gm/dL Hct (39.0-53.0) % MCV (80.0-100.0) fL MCH (25.0-35.0) pg MCHC (31.0-37.0) g/dL RDW (11.5-15.5) % Plt Count (150-450) k/uL MPV Neutrophils % (Manual) % Lymphocytes % (Manual) % Monocytes % (Manual) % Neutrophils # (Manual) (1.3-7.7) k/uL Lymphocytes # (Manual) (1.0-4.8) k/uL Monocytes # (Manual) (0-1.0) k/uL Nucleated RBCs (0-0) /100 WBC Manual Slide Review PT (10.0-12.5) sec INR (<1.2) APTT (22.0-30.0) sec D-Dimer (<0.60) mg/L FEU Sodium (137-145) mmol/L Potassium (3.5-5.1) mmol/L Chloride (98-107) mmol/L Carbon Dioxide (22-30) mmol/L Anion Gap mmol/L BUN (9-20) mg/dL Creatinine (0.66-1.25) mg/dL Est GFR (CKD-EPI)AfAm (>60 ml/min/1.73 sqM) Est GFR (CKD-EPI)NonAf (>60 ml/min/1.73 sqM) Glucose (74-99) mg/dL Calcium (8.4-10.2) mg/dL Magnesium (1.6-2.3) mg/dL Total Bilirubin (0.2-1.3) mg/dL AST (17-59) U/L ALT (4-49) U/L Alkaline Phosphatase (38-126) U/L Troponin I <0.012 <0.012 (0.000-0.034) ng/mL NT-Pro-B Natriuret Pep pg/mL Total Protein (6.3-8.2) g/dL Albumin (3.5-5.0) g/dL Lipase (23-300) U/L Serum Alcohol 176 mg/dL Disposition Clinical Impression: Chest pain, Alcohol intoxication Disposition: ADMITTED IP TO THIS [facility] Condition: Stable Referrals: Nonstaff,Physician [Primary Care Provider] - 1-2 days
[2024-01-10] MEDS: ASPIRIN 81 MG PO STA (00:11)
[2024-01-10] MEDS: SODIUM CHLORIDE 0.9% 500 ML 500 ML IV STA (00:12)
[2024-01-10] MEDS: ONDANSETRON 4 MG/2 ML VIAL IVP STA ×2 (00:13→03:42)
[2024-01-10] MEDS: MORPHINE SULFATE 4 MG/ML SYRINGE IV STA (00:15)
[2024-01-10 00:45] LABS: MCH 32.2 pg (25.0-35.0); MCHC 32.5 g/dL (31.0-37.0); MCV 99.2 fL (80.0-100.0); Mean Platelet Volume 8.6; Platelet Count 204 k/uL (150-450); RBC 4.03 m/uL (4.30-5.90); RDW 14.8 % (11.5-15.5); WBC 3.6 k/uL (3.8-10.6)
[2024-01-10 00:48] LABS: INR 0.8 (<1.2); Partial Thromboplastin Time 23.3 sec (22.0-30.0); Prothrombin Time 9.6 sec (10.0-12.5)
--- NOTE | 2024-01-10 01:01 | XR ---
EXAM: XR Chest, 2 Views CLINICAL HISTORY: ITS.REASON XR Reason: Chest Pain TECHNIQUE: Frontal and lateral views of the chest. COMPARISON: Chest x-ray April 07, 2023 FINDINGS: Lungs: No consolidation. No overt edema. Pleural space: No pleural effusion. No pneumothorax. Heart: Unremarkable. No cardiomegaly. Bones/joints: Unremarkable. No fracture or malalignment. IMPRESSION: No acute cardiopulmonary abnormality.
[2024-01-10 01:04] LABS: ALT 19 U/L (4-49); AST 33 U/L (17-59); African American GFR (CKD) >90 (>60 ml/min/1.73 sqM); Albumin 4.3 g/dL (3.5-5.0); Alkaline Phosphatase 40 U/L (38-126); Anion Gap 8 mmol/L; Blood Urea Nitrogen 11 mg/dL (9-20); Calcium 9.3 mg/dL (8.4-10.2); Carbon Dioxide 21 mmol/L (22-30); Chloride 112 mmol/L (98-107); Glucose 79 mg/dL (74-99); Lipase 159 U/L (23-300); Magnesium 1.9 mg/dL (1.6-2.3); Non-African American GFR(CKD) >90 (>60 ml/min/1.73 sqM); Potassium 4.7 mmol/L (3.5-5.1); Sodium 141 mmol/L (137-145); Total Bilirubin 0.6 mg/dL (0.2-1.3); Total Protein 6.8 g/dL (6.3-8.2)
[2024-01-10 01:11] LABS: NT-Pro-B-Type Natriuretic Pept 28 pg/mL
[2024-01-10 01:42] LABS: Lymphocytes # (M) 1.84 k/uL (1.0-4.8); Monocytes # (M) 0.32 k/uL (0-1.0); Neutrophils # (M) 1.44 k/uL (1.3-7.7); Neutrophils % (M) 40 %; Nucleated Red Blood Cells 0 /100 WBC (0-0); Total Cells Counted 100
--- NOTE | 2024-01-10 02:19 | CT ---
EXAM: CT Angiography Chest With Intravenous Contrast CLINICAL HISTORY: ITS.REASON CT Reason: sycnope, chest pain TECHNIQUE: Axial computed tomographic angiography images of the chest with intravenous contrast. CTDI is 15.4 mGy and DLP is 263.1 mGy-cm. This CT exam was performed using one or more of the following dose reduction techniques: automated exposure control, adjustment of the mA and/or kV according to patient size, and/or use of iterative reconstruction technique. MIP reconstructed images were created and reviewed. COMPARISON: 01/03/2024 FINDINGS: Pulmonary arteries: No filling defects. Aorta: No thoracic aortic aneurysm. Lungs: COPD. Heterogeneous subpleural groundglass opacities in the bilateral lower lobes. Pleural space: No pneumothorax. No effusion. Heart: No cardiomegaly. No pericardial effusion. Bones/joints: No acute fracture or dislocation. Soft tissues: 4.1 cm enhancing mass in the left kidney. Lymph nodes: No enlarged lymph nodes. IMPRESSION: 1. No pulmonary embolism. 2. Heterogeneous subpleural groundglass opacities in the bilateral lower lobes. Correlate with infectious/inflammatory process. 3. 4.1 cm enhancing mass in the left kidney. Cannot exclude neoplasm. Recommend CT/MRI renal protocol
--- NOTE | 2024-01-10 02:30 | XR ---
EXAM: XR Right Shoulder Complete, 2 or More Views CLINICAL HISTORY: ITS.REASON XR Reason: right shoulder pain, fall TECHNIQUE: Two or more views of the right shoulder. COMPARISON: No relevant prior studies available. FINDINGS: Bones/joints: No acute fracture. No dislocation. Mild AC joint osteoarthrosis Soft tissues: Unremarkable. IMPRESSION: No acute osseous abnormalities.
[2024-01-10] MEDS: MORPHINE SULFATE 4 MG/ML SYRINGE IVP STA (03:42)
--- NOTE | 2024-01-10 04:37 | P.HPIM ---
History of Present Illness H&P Date: 01/10/24 Patient is a 63-year-old male with a PMH of CAD status post stenting, schizophrenia, motor disorder, hypertension, hyperlipidemia, history of lung resection secondary to perforation who presented to the emergency room with complaints of chest discomfort with syncope. Patient reports that he was in his usual state of health until around 11 PM today when he was stepping out of the shower, he developed substernal chest tightness with shortness of breath and lightheadedness. He reports subsequently losing consciousness, falling down and hitting the right side of his neck and shoulder onto the sink. Patient notes that his roommate heard the noise and came in to see him unconscious. As per the patient, he was unresponsive for roughly 10 minutes patient denied experiencing urinary or bladder incontinence no tongue bite. Also not experiencing fever, chills, cough, nausea, vomiting, diarrhea. Patient reports ongoing right neck and shoulder pain as a result of the fall and trauma. He denies any subsequent chest discomfort or shortness of breath. Of note, the patient was recently admitted to the hospital for similar complaints at which time cardiology evaluation was performed with the stress test showing perfusion defects. The patient was advised to follow-up with cardiology as an outpatient. Shoulder x-ray in the emergency room was unremarkable with chest CTA also showing no acute abnormalities. EKG revealed sinus rhythm at 94 bpm with criteria for LVH as reviewed by me. Laboratory evaluation was remarkable for leukopenia of 3.6 and D-dimer 1.00, troponin less than 0.012, with serum alcohol level 176. ED documentation reviewed and case discussed with ED provider. Review of systems: Pertinent positives and negatives as discussed in HPI, a complete review of systems was performed and all other systems are negative. Physical examination: Vital signs reviewed General: non toxic, no distress, appears at stated age, normal weight Derm: no unusual rashes/lesions, warm Head: atraumatic, normocephalic, symmetric Eyes: EOMI, no lid lag, anicteric sclera, pupils equal round reactive to light ENT: Nose and ears atraumatic Neck: No cervical lymphadenopathy, trachea midline, supple, right neck and shoulder tenderness within normal passive and active range of motion Mouth: no lip lesion, mucus membranes moist Cardiovascular: S1S2 reg, no murmur, positive dorsalis pedis pulse bilateral, no edema Lungs: CTA bilateral, no rhonchi, no rales, no accessory muscle use Abdominal: soft, nontender to palpation, no guarding Ext: muscle strength 5 out of 5 in all 4 extremities grossly, no gross muscle atrophy, no contractures, Neuro: CN II-XI grossly intact, no gross focal neuro deficits Psych: Alert, oriented, appropriate affect Assessment: Chest pain, rule out ACS Syncope, rule out cardiogenic Right neck and shoulder injury with ongoing tenderness Chronic conditions: Hypertension, hyperlipidemia, history of schizophrenia Imaging: Shoulder x-ray in the emergency room was unremarkable with chest CTA also showing no acute abnormalities. EKG revealed sinus rhythm at 94 bpm with criteria for LVH as reviewed by me. Data Review: Laboratory evaluation was remarkable for leukopenia of 3.6 and D-dimer 1.00, troponin less than 0.012, with serum alcohol level 176. Plan: Cardiology consult Trend troponin Cardiac monitoring Continue with aspirin and statin CT brain and cervical spine ordered Resume home medications DVT prophylaxis: Heparin subq The patient is admitted with an anticipated less than 2 midnight stay for evaluation of chest pain CODE STATUS: Full Code Discussed with: Patient Anticipated discharge place: Home Past Medical History Past Medical History: Coronary Artery Disease (CAD), Chest Pain / Angina, Hyperlipidemia, Myocardial Infarction ([place]), Osteoarthritis (OA) Additional Past Medical History / Comment(s): arthritis in back and bilateral knees,hx hiatal hernia Last Myocardial Infarction Date:: 2004 History of Any Multi-Drug Resistant Organisms: Other MDRO Past Surgical History: Bowel Resection, Heart Catheterization With Stent Additional Past Surgical History / Comment(s): Cardiac stents x 4, bowel surgery for pinpoint hole in bowel, L knee arthroscopy, colonoscopy/benign polypectomies,hiatal hernia repair Past Anesthesia/Blood Transfusion Reactions: No Reported Reaction Date of Last Stent Placement:: 2013 Past Psychological History: Bipolar, Depression, PTSD, Schizophrenia Smoking Status: Current every day smoker Past Alcohol Use History: Occasional Past Drug Use History: None Reported - Past Family History Father Family Medical History: Respiratory Disorder Additional Family Medical History / Comment(s): Father at age 64 from Black lung disease Mother Family Medical History: Hypertension, Myocardial Infarction ([place]) Additional Family Medical History / Comment(s): Mother of an [place] at 78yrs old. Brother(s) Family Medical History: Myocardial Infarction ([place]) Additional Family Medical History / Comment(s): Patient has 10 brothers and 2 from myocardial infarction and had history of alcoholism. Sister(s) Family Medical History: Hypertension, Myocardial Infarction ([place]) Additional Family Medical History / Comment(s): He has 7 sisters that are alive with no major medical problems. He has one son that has and one daughter that is alive and okay. Medications and Allergies Home Medications Medication Instructions Recorded Confirmed Type HYDROcodone/APAP 10-325MG [[place] 1 tab PO QID 12/17/22 01/03/24 History 10-325] Aspirin 81 mg PO DAILY #30 tab 12/18/22 01/03/24 Rx Allergies Allergy/AdvReac Type Severity Reaction Status Date / Time blueberry Allergy Rash/Hives Verified 01/09/24 23:45 nitroglycerin Allergy Swelling Verified 01/09/24 23:45 Physical Exam Vitals: Vital Signs Temp Pulse Resp BP Pulse Ox 01/10/24 03:47 78 17 115/74 97 01/09/24 23:43 98.8 F 105 H 18 129/86 97 Intake and Output 01/09/24 01/09/24 01/10/24 14:59 22:59 06:59 Other: Weight 73.482 kg Results CBC & Chem 7: 01/10/24 00:18 01/10/24 00:18 Labs: Abnormal Lab Results - Last 24 Hours (Table) 01/10/24 01/10/24 01/10/24 Range/Units 00:18 00:18 00:18 WBC 3.6 L (3.8-10.6) k/uL RBC 4.03 L (4.30-5.90) m/uL PT 9.6 L (10.0-12.5) sec D-Dimer 1.00 H (<0.60) mg/L FEU Chloride 112 H (98-107) mmol/L Carbon Dioxide 21 L (22-30) mmol/L
[2024-01-10] MEDS: ASPIRIN 325 MG TAB PO STA (04:44)
[2024-01-10] MEDS: ATORVASTATIN 80 MG TAB PO STA (04:47)
[2024-01-10] MEDS: ASPIRIN 81 MG PO SCH (08:58)
[2024-01-10] MEDS: HEPARIN SODIUM,PORCINE 5,000 UNIT/ML 1 ML VIAL SQ SCH (08:59)
[2024-01-10] MEDS: HYDROcodone/APAP 10-325MG 1 EACH TAB PO PRN (09:51)
--- NOTE | 2024-01-10 12:06 | CT ---
EXAMINATION TYPE: CT brain cspine wo con DATE OF EXAM: 01/10/2024 11:51 AM COMPARISON: None. CLINICAL INDICATION: Male, 63 years old with history of fall with trauma and neck pain; Fall with tra loren and neck pain TECHNIQUE: Brain: Multiple axial CT images of the brain were obtained without IV contrast. Cspine: Axial CT images from the skull base to the inferior aspect of T2 we obtained without intraven ous contrast. Coronal and sagittal reformatted images were also reviewed. . CT DLP: 1467.30 mGycm, Automated exposure control for dose reduction was used. FINDINGS: Brain: Extra-axial spaces: No abnormal extra-axial fluid collections. Ventricular system: Within normal limits Cerebral parenchyma: No acute intraparenchymal hemorrhage or mass effect. The ventura-white junction is well differentiated. Cerebellum: Unremarkable. Mass effect: No evidence of midline shift. Intracranial vasculature: unremarkable Soft tissues: Normal. Calvarium/osseous structures: No depressed skull fracture. Bilateral nasal bone deformities. Paranasal sinuses and mastoid air cells: Clear. Visualized orbits: Orbital contents are intact. Cervical spine: Fracture: None. Osseous structures: Multilevel degenerative disc disease changes with endplate spurring and disc oste ophyte complex's. Vertebral alignment: Straightening of the spinal alignment. Spinal canal/Neural Foramina: Disc osteophyte complexes at ?? with at least mild spinal canal stenosi s. Facet joint uncovertebral joint arthropathy scattered throughout the cervical spine with varying d egrees of neural foraminal stenosis. Neck soft tissues: Prevertebral soft tissues are within normal limits. Other: The airway is patent. Mild paraseptal emphysema changes in the lung apices. IMPRESSION: 1. No acute intracranial process. 2. No evidence of cervical spine fracture. 3. Mild multilevel degenerative disc disease. 4. Bilateral nasal bone deformities correlate with tenderness for visible acute fracture. [facility], , 01/10/2024 12:03 PM
--- NOTE | 2024-01-10 12:13 | P.CRDCN ---
History of Present Illness Consult date: 01/10/24 History of present illness: History of Present Illness: The patient is a 63-year-old male with prior history of noncompliance, history of CAD with prior stenting, details of that history is unclear. He has underwent cardiac catheterization by Dr. Moody in the past and had no evidence of significant in-stent restenosis. He was in the hospital recently with symptoms of chest pain and syncope. He underwent a myocardial perfusion imaging and had predominantly fixed defect with minimal questionable ischemia. He presents again with recurrent chest pain and a syncopal episode. According to him he was sitting at the table and had chest pain then had syncope for about 10 minutes. He had some palpitations. He continues to have some discomfort in the chest. He has occasional palpitations. He has chronic dyspnea on exertion. He denies any PND, orthopnea or peripheral edema. He has a history of chronic tobacco use. An echocardiogram performed during his last admission showed a preserved systolic function with mild mitral and mild to moderate tricuspid regurgitation. His nuclear scan showed an inferior wall defect with some reversibility and an ejection fraction of 58%. His EKG showed no acute changes and his troponin were normal. He has a history of alcohol intake. Medications: Aspirin, hydrocodone Review of Systems: Respiratory: He has dyspnea on exertion and chronic tobacco use GI: He has occasional nausea and vomiting. No history of peptic ulcer disease. No recent GI bleed. : No hematuria or dysuria. Nervous System: No stroke or seizure. Physical Examination: 63-year-old male, alert oriented no apparent distress,Blood pressure 125/89, Heart rate 70 Head: Normocephalic. Eyes: Sclerae nonicteric. Neck: Good carotid upstroke, no bruit, no jugular venous distention. Lungs: Clear to auscultation. Heart: Regular rate and rhythm, S1-S2, no S3, no rub. Systolic ejection murmur. Abdomen: Soft nontender, positive bowel sounds no organomegaly. Extremities: No edema, intact distal pulses. Labs: Hemoglobin 13, BUN 11, creatinine 0.89. Troponin less than 0.012, NT proBNP 28. Alcohol level 176. Chest x-ray with no acute infiltrate EKG: Sinus mechanism with no acute ST segment changes Impression: 1. Chest discomfort of unclear etiology, no evidence of acute coronary syndrome. Patient recent stress test was borderline 2. History of CAD 3. Presentation of syncope could be related to alcohol, no evidence to suggest arrhythmia or ischemia 4. History of chronic tobacco use 5. History of noncompliance Plan: 1. Start statin 2. If he has persistent symptoms consider coronary angiography tomorrow by Dr. Moody 3. Alcohol and smoking cessation 4. Depending on his progress further recommendations will be made 5. Thank you for this consult we will follow with you Past Medical History Past Medical History: Coronary Artery Disease (CAD), Chest Pain / Angina, Hyperlipidemia, Myocardial Infarction (NE), Osteoarthritis (OA) Additional Past Medical History / Comment(s): arthritis in back and bilateral knees,hx hiatal hernia Last Myocardial Infarction Date:: 2004 History of Any Multi-Drug Resistant Organisms: Other MDRO Past Surgical History: Bowel Resection, Heart Catheterization With Stent Additional Past Surgical History / Comment(s): Cardiac stents x 4, bowel surgery for pinpoint hole in bowel, L knee arthroscopy, colonoscopy/benign polypectomies,hiatal hernia repair Past Anesthesia/Blood Transfusion Reactions: No Reported Reaction Date of Last Stent Placement:: 2013 Past Psychological History: Bipolar, Depression, PTSD, Schizophrenia Smoking Status: Current every day smoker Past Alcohol Use History: Occasional Past Drug Use History: None Reported - Past Family History Father Family Medical History: Respiratory Disorder Additional Family Medical History / Comment(s): Father at age 64 from Black lung disease Mother Family Medical History: Hypertension, Myocardial Infarction (NE) Additional Family Medical History / Comment(s): Mother of an NE at 78yrs old. Brother(s) Family Medical History: Myocardial Infarction (NE) Additional Family Medical History / Comment(s): Patient has 10 brothers and 2 from myocardial infarction and had history of alcoholism. Sister(s) Family Medical History: Hypertension, Myocardial Infarction (NE) Additional Family Medical History / Comment(s): He has 7 sisters that are alive with no major medical problems. He has one son that has and one daughter that is alive and okay. Medications and Allergies Home Medications Medication Instructions Recorded Confirmed Type HYDROcodone/APAP 10-325MG [[place] 1 tab PO QID 12/17/22 01/10/24 History 10-325] Aspirin 81 mg PO DAILY #30 tab 12/18/22 01/10/24 Rx Allergies Allergy/AdvReac Type Severity Reaction Status Date / Time blueberry Allergy Rash/Hives Verified 01/10/24 10:37 nitroglycerin Allergy Swelling Verified 01/10/24 10:37 Physical Exam Vitals: Vital Signs Temp Pulse Pulse Resp BP BP Pulse Ox 01/10/24 07:50 98.2 F 70 16 125/89 95 01/10/24 03:47 78 17 115/74 97 01/09/24 23:43 98.8 F 105 H 18 129/86 97 Intake and Output 01/09/24 01/10/24 01/10/24 22:59 06:59 14:59 Intake Total 354 Balance 354 Intake: Oral 354 Other: Weight 73.482 kg Results 01/10/24 00:18 01/10/24 00:18 Cardiac Enzymes 01/10/24 01/10/24 01/10/24 Range/Units 00:18 00:18 02:53 AST 33 (17-59) U/L Troponin I <0.012 <0.012 (0.000-0.034) ng/mL 01/10/24 Range/Units 06:53 AST (17-59) U/L Troponin I <0.012 (0.000-0.034) ng/mL Coagulation 01/10/24 Range/Units 00:18 PT 9.6 L (10.0-12.5) sec APTT 23.3 (22.0-30.0) sec CBC 01/10/24 Range/Units 00:18 WBC 3.6 L (3.8-10.6) k/uL RBC 4.03 L (4.30-5.90) m/uL Hgb 13.0 (13.0-17.5) gm/dL Hct 40.0 (39.0-53.0) % Plt Count 204 (150-450) k/uL Comprehensive Metabolic Panel 01/10/24 Range/Units 00:18 Sodium 141 (137-145) mmol/L Potassium 4.7 (3.5-5.1) mmol/L Chloride 112 H (98-107) mmol/L Carbon Dioxide 21 L (22-30) mmol/L BUN 11 (9-20) mg/dL Creatinine 0.89 (0.66-1.25) mg/dL Glucose 79 (74-99) mg/dL Calcium 9.3 (8.4-10.2) mg/dL AST 33 (17-59) U/L ALT 19 (4-49) U/L Alkaline Phosphatase 40 (38-126) U/L Total Protein 6.8 (6.3-8.2) g/dL Albumin 4.3 (3.5-5.0) g/dL Current Medications Generic Name Dose Route Start Last Admin Trade Name Freq PRN Reason Stop Dose Admin Hydrocodone Bitart/Acetaminophen 1 each 01/10/24 09:30 01/10/24 09:51 Hydrocodone/Apap 10-325mg 1 Each Tab PO 1 each QID PRN Administration Pain Aspirin 81 mg 01/10/24 09:00 01/10/24 08:58 Aspirin 81 Mg PO 81 mg DAILY MORRIS Administration Atorvastatin Calcium 80 mg 01/10/24 21:00 Atorvastatin 80 Mg Tab PO HS MORRIS Heparin Sodium (Porcine) 5,000 unit 01/10/24 08:00 01/10/24 08:59 Heparin Sodium,Porcine 5,000 Unit/Ml 1 Ml Vial SQ Not Given Q8HR MORRIS Intake and Output 01/09/24 01/10/24 01/10/24 22:59 06:59 14:59 Intake Total 354 Balance 354 Intake: Oral 354 Other: Weight 73.482 kg 01/10/24 00:18 01/10/24 00:18
[2024-01-10] MEDS: ATORVASTATIN 80 MG TAB PO SCH (21:26)
[2024-01-11] MEDS: diphenhydrAMINE 25 MG CAP PO STA (05:19)
[2024-01-11 07:35] VITALS: BP 122/77; PULSE 60; RESP 16; TEMP 98
[2024-01-11 08:48] LABS: Chol/HDL Ratio 1.33 Ratio; VLDL Calculation 6.98 mg/dL (5.00-40.00)
--- NOTE | 2024-01-11 10:05 | P.PN ---
Subjective History of Present Illness: The patient is a 63-year-old male with prior history of noncompliance, history of CAD with prior stenting, details of that history is unclear. He has underwent cardiac catheterization by Dr. Moody in the past and had no evidence of significant in-stent restenosis. He was in the hospital recently with symptoms of chest pain and syncope. He underwent a myocardial perfusion imaging and had predominantly fixed defect with minimal questionable ischemia. He presents again with recurrent chest pain and a syncopal episode. According to him he was sitting at the table and had chest pain then had syncope for about 10 minutes. He had some palpitations. He continues to have some discomfort in the chest. He has occasional palpitations. He has chronic dyspnea on exertion. He denies any PND, orthopnea or peripheral edema. He has a history of chronic tobacco use. An echocardiogram performed during his last admission showed a preserved systolic function with mild mitral and mild to moderate tricuspid regurgitation. His nuclear scan showed an inferior wall defect with some reversibility and an ejection fraction of 58%. His EKG showed no acute changes and his troponin were normal. He has a history of alcohol intake. Medications: Aspirin, hydrocodone / Patient seen and examined. Patient denies any further chest pain or pressure. Denies any shortness breath. Physical Examination: 63-year-old male, alert oriented no apparent distress,Blood pressure 125/89, Heart rate 70 Head: Normocephalic. Eyes: Sclerae nonicteric. Neck: Good carotid upstroke, no bruit, no jugular venous distention. Lungs: Clear to auscultation. Heart: Regular rate and rhythm, S1-S2, no S3, no rub. Systolic ejection murmur. Abdomen: Soft nontender, positive bowel sounds no organomegaly. Extremities: No edema, intact distal pulses. Labs: Hemoglobin 13, BUN 11, creatinine 0.89. Troponin less than 0.012, NT proBNP 28. Alcohol level 176. Chest x-ray with no acute infiltrate EKG: Sinus mechanism with no acute ST segment changes Impression: 1. Chest discomfort of unclear etiology, no evidence of acute coronary synd leslie. Patient recent stress test was borderline 2. History of CAD 3. Presentation of syncope could be related to alcohol, no evidence to suggest arrhythmia or ischemia 4. History of chronic tobacco use 5. History of noncompliance Plan: Workup has been unrevealing at this point. We discussed possibly performing catheterization however patient does not want to pursue this. Symptoms are stable and not clearly anginal. We discussed trial of GI treatment and follow- up and patient agreeable. Follow-up with Dr. Moody in 1-2 weeks. If pain worsens come to the emergency department. Objective - Vital Signs Vital signs: Vital Signs Temp 98.0 F 01/11/24 07:25 Pulse 60 01/11/24 07:25 Resp 16 01/11/24 07:25 BP 122/77 01/11/24 07:25 Pulse Ox 100 01/11/24 07:25 FiO2 Intake & Output 01/10/24 01/11/24 01/11/24 18:59 06:59 18:59 Intake Total 1020 Balance 1020 Weight 73.482 kg Intake: Oral 1020 Other: # Voids 3 2 # Bowel Movements 0 - Labs CBC & Chem 7: 01/10/24 00:18 01/10/24 00:18 Labs: Abnormal Lab Results - Last 24 Hours (Table) 01/10/24 Range/Units 00:18 HDL Cholesterol 129.00 H (40.00-60.00) mg/dL
--- NOTE | 2024-01-11 16:59 | P.DS ---
Providers Date of admission: 01/10/24 04:39 Attending physician: Jonathan Red MD Consults: 01/10/24 04:36 Consult Physician Urgent Consulting Provider: Primo Moody Consult Reason/Comments: chest pain Do you want consulting provider notified?: Yes Primary care physician: Physician Nonstaff Hospital Course: Hospital Course: Patient is a 63-year-old male with a PMH of CAD status post stenting, schizoph anna, motor disorder, hypertension, hyperlipidemia, history of lung resection secondary to perforation who presented to the emergency room with complaints of chest discomfort with syncope. Shoulder x-ray in the emergency room was unremarkable with chest CTA also showing no acute abnormalities. EKG revealed sinus rhythm at 94 bpm with criteria for LVH as reviewed by me. Laboratory evaluation was remarkable for leukopenia of 3.6 and D-dimer 1.00, troponin less than 0.012, with serum alcohol level 176. Patient evaluated for chest pain to rule out ACS syncope. Cardiology consulted troponins trended CT brain and cervical spine ordered and placed on cardiac monitoring. CT brain and cervical spine showed no acute process and no evidence of spinal medical spine fracture. Bilateral nasal bone deformities noted. Recent Lexiscan was borderline per cardiology stress test on 01/03. Patient discharged today with Lipitor increased to 80 mg p.o. at bedtime as his ASCVD risk is 7.8 to 10%. Patient was advised to follow-up with cardiology and PCP on outpatient basis. Patient symptoms improved and no no further complications occurred. Final Diagnosis: #. Chest pain, ACS ruled out #. History of CAD #. Syncope, cardiogenic cause ruled out #. Right neck and shoulder injury and tenderness, resolved #. Hypertension #. Hyperlipidemia #. History of schizophrenia Physical examination: Vital signs reviewed General: non toxic, no distress, appears at stated age Derm: no unusual rashes/lesions, warm Head: atraumatic, normocephalic, symmetric Eyes: EOMI, anicteric sclera, pupils equal round reactive to light ENT: Nose and ears atraumatic Neck: No cervical lymphadenopathy, trachea midline, supple Mouth: no lip lesion, mucus membranes moist Cardiovascular: S1S2 reg, no murmur, Lungs: CTA bilateral, no rhonchi, no rales, no accessory muscle use Abdominal: soft, nondistended, nontender to palpation, no guarding Ext: muscle strength 5 out of 5 in all 4 extremities grossly, no gross muscle atrophy, no contractures, positive dorsalis pedis pulse bilateral, no edema Neuro: CN II-XI grossly intact, no gross focal neuro deficits Psych: Alert, oriented, appropriate affect and mood I saw and evaluated the patient during the hernandez and critical portions of this encounter, and discussed the case in detail with the resident author of this note, I agree with the Assessment and Plan, and my changes, if any, are highlighted in blue. Patient Condition at Discharge: Stable Plan - Discharge Summary New Discharge Prescriptions: New Atorvastatin [Lipitor] 80 mg PO HS tab Continue Aspirin 81 mg PO DAILY #30 tab HYDROcodone/APAP 10-325MG [[place] 10-325] 1 tab PO QID Discharge Medication List HYDROcodone/APAP 10-325MG [[place] 10-325] 1 tab PO QID 12/17/22 [History] Aspirin 81 mg PO DAILY #30 tab 12/18/22 [Rx] Atorvastatin [Lipitor] 80 mg PO HS tab 01/11/24 [Rx] Follow up Appointment(s)/Referral(s): Primo Moody MD [STAFF PHYSICIAN] - 1 Week Shabbir Sanches MD [REFERRING] - 1 Week Patient Instructions/Handouts: Chest Pain (DC), How to Stop Smoking (DC) Activity/Diet/Wound Care/Special Instructions: Please see primary care provider ([phone]) and [employer] Specialist Discharge/Stand Alone Forms: AA Meetings [address] - [facility], AA Meetings [place], Who Do I Call?, Community Resources, Outpatient Counseling, Inp Substance Abuse Facilities, Area PCPs Discharge Disposition: HOME SELF-CARE
== END 2024-01-11 13:05 | disposition home or self-care (01) ==
LOC: EC 23:42 → 6NMEDSUR 01-10 04:39
PROVIDERS: ADMIT Internal Medicine; ATTEND Internal Medicine
DX: R07.89 Other chest pain (principal); R55 Syncope and collapse; F10.129 Alcohol abuse with intoxication, unspecified; I25.10 Atherosclerotic heart disease of native coronary artery without angina pectoris; E78.5 Hyperlipidemia, unspecified; I25.2 Old myocardial infarction; F20.9 Schizophrenia, unspecified; F31.9 Bipolar disorder, unspecified; I10 Essential (primary) hypertension; F17.210 Nicotine dependence, cigarettes, uncomplicated; Y90.6 Blood alcohol level of 120-199 mg/100 ml; Z90.2 Acquired absence of lung [part of]; Z95.5 Presence of coronary angioplasty implant and graft; Z79.82 Long term (current) use of aspirin; Z82.49 Family history of ischemic heart disease and other diseases of the circulatory system
CPT/HCPCS: 96372; 96376; 96374; 96375; 99285; 36415; 93005; 85379; 83880; 80061; 80053; 83690; 83735; 84484; 85025; 85610; 85730; 73030; 71046; 72125; 70450; 71275; G0378 ×2; G0480; J2270; J1644; J2405; Q9967; 80320

== ENCOUNTER 2024-01-13 08:56 | Observation (INO) | payer MEDICARE, OTHER ==
[2024-01-13] MEDS: SODIUM CHLORIDE 0.9% 1,000 ML IV STA (09:51)
[2024-01-13] MEDS: MORPHINE SULFATE 4 MG/ML SYRINGE IV STA (09:51)
--- NOTE | 2024-01-13 10:17 | ED ---
General Adult HPI - General Chief complaint: Chest Pain Stated complaint: chest pain Time Seen by Provider: 01/13/24 09:25 Source: patient Mode of arrival: ambulatory Limitations: no limitations - History of Present Illness Initial comments: Patient is a 63-year-old male who presents emergency department complaining of chest pain. He has a history of chronic chest pain. Patient has a past medical history remarkable for noncompliance, CAD with prior stenting.. Was recently admitted to the hospital for this and states that he signed out yesterday because he did not want to have a cardiac catheterization done. States he is still having persistent chest pain which was present when he was discharged. Is allergic to nitro. Return to the emergency department for this persistent chest pain as well as syncopal episodes. Patient has been seen numerous times for this in the past. Recently had an abnormal stress test per cardiology note. States his symptoms are pretty typical and today he had a episode of passing out while in the shower. Denies any obvious injuries but is complaining of some right sided neck discomfort. Uncertain if he hit his head. Is not on blood thinners. Pain is substernal with no radiation. No nausea or vomiting. No diaphoresis. Presents for further evaluation at this time. States morphine is what typically helps with the pain. - Related Data Home Medications Medication Instructions Recorded Confirmed HYDROcodone/APAP 10-325MG [[place] 1 tab PO QID 12/17/22 01/13/24 10-325] Previous Rx's Medication Instructions Recorded Aspirin 81 mg PO DAILY #30 tab 12/18/22 Allergies Allergy/AdvReac Type Severity Reaction Status Date / Time blueberry Allergy Rash/Hives Verified 01/13/24 11:40 nitroglycerin Allergy Swelling Verified 01/13/24 11:40 Review of Systems ROS Statement: Those systems with pertinent positive or pertinent negative responses have been documented in the HPI. Review of Systems: CONST: Denies fever EYES: Denies blurry vision ENT: Denies nasal congestion C/V: Endorses chest pain RESP: Denies shortness of breath GI: Denies abdominal pain : Denies dysuria SKIN: Denies rash. MSK: Denies joint pain. NEURO: Denies headache ROS Other: All systems not noted in ROS Statement are negative. Past Medical History Past Medical History: Coronary Artery Disease (CAD), Chest Pain / Angina, Hyperlipidemia, Myocardial Infarction (MO), Osteoarthritis (OA) Additional Past Medical History / Comment(s): arthritis in back and bilateral knees,hx hiatal hernia Last Myocardial Infarction Date:: 2004 History of Any Multi-Drug Resistant Organisms: Other MDRO Past Surgical History: Bowel Resection, Heart Catheterization With Stent Additional Past Surgical History / Comment(s): Cardiac stents x 4, bowel surgery for pinpoint hole in bowel, L knee arthroscopy, colonoscopy/benign polypectomies,hiatal hernia repair Past Anesthesia/Blood Transfusion Reactions: No Reported Reaction Date of Last Stent Placement:: 2013 Past Psychological History: Bipolar, Depression, PTSD, Schizophrenia Smoking Status: Current every day smoker Past Alcohol Use History: Occasional Past Drug Use History: None Reported - Past Family History Father Family Medical History: Respiratory Disorder Additional Family Medical History / Comment(s): Father at age 64 from Black lung disease Mother Family Medical History: Hypertension, Myocardial Infarction (MO) Additional Family Medical History / Comment(s): Mother of an MO at 78yrs old. Brother(s) Family Medical History: Myocardial Infarction (MO) Additional Family Medical History / Comment(s): Patient has 10 brothers and 2 from myocardial infarction and had history of alcoholism. Sister(s) Family Medical History: Hypertension, Myocardial Infarction (MO) Additional Family Medical History / Comment(s): He has 7 sisters that are alive with no major medical problems. He has one son that has and one daughter that is alive and okay. General Exam - General Exam Comments Initial Comments: General: Appears in no acute distress. HEAD: Normal with no signs of head trauma. Negative Lopes sign. Negative raccoon eyes. EYES: EOMI ENT: Hearing grossly intact, normal oropharynx. RESPIRATORY: Clear breath sounds bilaterally. No wheezes, rales, or rhonchi. C/V: Regular rate and rhythm. S1 and S2 auscultated, no edema, peripheral pulses 2+ and intact throughout ABD: Abd is soft, nontender, nondistended EXT: no obvious deformity. No obvious tenderness to palpation of the neck. Some mild discomfort in the paraspinal muscles on the right of the neck. No tenderness to palpation midline of the thoracic or lumbar spines. SKIN: No rashes or lesions observed on exposed skin. NEURO: Alert and oriented x 4. Limitations: no limitations Course Vital Signs 01/13/24 01/13/2424 09:15 11:54 13:14 Temperature 98.4 F 98.5 F 98.3 F Pulse Rate 94 79 80 Respiratory 20 18 16 Rate Blood Pressure 120/75 121/87 126/83 O2 Sat by Pulse 96 97 98 Oximetry Medical Decision Making - Medical Decision Making Was pt. sent in by a medical professional or institution (, [facility], TRAIN CALLER, urgent care, hospital, or jail...) When possible be specific @ -No Did you speak to anyone other than the patient for history (EMS, parent, family, police, friend...)? What history was obtained from this source @ -No Did you review nursing and triage notes (agree or disagree)? Why? @ -I reviewed and agree with nursing and triage notes Were old charts reviewed (outside hosp., previous admission, EMS record, old EKG, old radiological studies, urgent care reports/EKG's, jail records)? Report findings @ -Reviewed old charts from January 10, 2024 when patient was last admitted this includes EKG. No obvious acute dynamic changes on today's EKG. CT PE at that time negative for PE. Differential Diagnosis (chest pain, altered mental status, abdominal pain women, abdominal pain men, vaginal bleeding, weakness, fever, dyspnea, syncope, headache, dizziness, GI bleed, back pain, seizure, CVA, palpatations, mental health, musculoskeletal)? @ -Differential Chest Pain: Stable Angina, Unstable Angina, STEMI, NSTEMI Aortic Dissection, Pneumothorax, Musculoskeletal, Esophageal Spasm GERD, Cholecystitis, Pancreatitis, Zoster, this is not meant to be an all-inclusive list. EKG interpreted by me (3pts min.). @ -As above X-rays interpreted by me (1pt min.). @ -Chest x-ray reveals no obvious acute cardiopulmonary process. CT interpreted by me (1pt min.). @ -CT brain and C-spine negative for any obvious acute traumatic injury or process. U/S interpreted by me (1pt. min.). @ -None done What testing was considered but not performed or refused? (CT, X-rays, U/S, labs)? Why? @ -None What meds were considered but not given or refused? Why? @ -None Did you discuss the management of the patient with other professionals (professionals i.e. , PA, TRAIN CALLER, lab, RT, psych nurse, delinquency prevention social worker, hot box operator, teacher, biosecurity officer, social work case manager)? Give summary @ - I discussed the case with the admitting provider, YENIFER Mccann who accepted the admission. Was smoking cessation discussed for >3mins.? @ -No Was critical care preformed (if so, how long)? @ -No Were there social determinants of health that impacted care today? How? (Homelessness, low income, unemployed, alcoholism, drug addiction, transportation, low edu. Level, literacy, decrease access to med. care, detention, rehab)? @ -No Was there de-escalation of care discussed even if they declined (Discuss DNR or withdrawal of care, Hospice)? DNR status @ -No What co-morbidities impacted this encounter? (DM, HTN, Smoking, COPD, CAD, Cancer, CVA, ARF, Chemo, Hep., AIDS, mental health diagnosis, sleep apnea, morbid obesity)? @ -Chronic chest pain, CAD Was patient admitted / discharged? Hospital course, mention meds given and route, prescriptions, significant lab abnormalities, going to OR and other pertinent info. @ -Patient presents emergency department with chest pain. Typical of his chest pain. Also had a syncopal episode. We will obtain cardiac workup. Was recently admitted for similar complaints and states that he was offered cardiac cath but declined. States he thinks he may need it. Is not on blood thinners other than aspirin. With the head trauma, we will hold on administering aspirin at this time until CT brain and C-spine are completed. Patient was in agreement this plan. No obvious injury on exam. Patient will be given IV morphine for analgesia as well as an IV fluid bolus. Patient was in agreement this plan. EKG shows no signs of acute ischemia.Imaging returned negative. Laboratory studies also returned unremarkable. Undetectable troponin. On reevaluation, patient is feeling improved. Discussed with him that we will readmit for cardiology evaluation. He was in agreement this plan. I discussed the case with the admitting provider, YENIFER Mccann who accepted the admission. Undiagnosed new problem with uncertain prognosis? @ -No Drug Therapy requiring intensive monitoring for toxicity (Heparin, Nitro, Insulin, Cardizem)? @ -No Were any procedures done? @ -No Diagnosis/symptom? @ -Chest pain Acute, or Chronic, or Acute on Chronic? @ -Acute on chronic Uncomplicated (without systemic symptoms) or Complicated (systemic symptoms)? @ -Complicated Side effects of treatment? @ -None Exacerbation, Progression, or Severe Exacerbation] @ -No Poses a threat to life or bodily function? @ -Possibly, yes - Lab Data Result diagrams: 01/13/24 09:48 01/13/24 09:48 Lab Results 01/13/24 01/13/24 01/13/24 Range/Units 09:48 09:48 09:48 WBC 3.1 L (3.8-10.6) k/uL RBC 3.88 L (4.30-5.90) m/uL Hgb 12.7 L (13.0-17.5) gm/dL Hct 38.5 L (39.0-53.0) % MCV 99.2 (80.0-100.0) fL MCH 32.8 (25.0-35.0) pg MCHC 33.0 (31.0-37.0) g/dL RDW 14.5 (11.5-15.5) % Plt Count 177 (150-450) k/uL MPV 8.8 Neutrophils % 50 % Lymphocytes % 39 % Monocytes % 6 % Eosinophils % 1 % Basophils % 1 % Neutrophils # 1.6 (1.3-7.7) k/uL Lymphocytes # 1.2 (1.0-4.8) k/uL Monocytes # 0.2 (0-1.0) k/uL Eosinophils # 0.0 (0-0.7) k/uL Basophils # 0.0 (0-0.2) k/uL PT 10.0 (10.0-12.5) sec INR 0.9 (<1.2) APTT 23.9 (22.0-30.0) sec Sodium 140 (137-145) mmol/L Potassium 4.3 (3.5-5.1) mmol/L Chloride 108 H (98-107) mmol/L Carbon Dioxide 25 (22-30) mmol/L Anion Gap 7 mmol/L BUN 10 (9-20) mg/dL Creatinine 0.75 (0.66-1.25) mg/dL Est GFR (CKD-EPI)AfAm >90 (>60 ml/min/1.73 sqM) Est GFR (CKD-EPI)NonAf >90 (>60 ml/min/1.73 sqM) Glucose 133 H (74-99) mg/dL Calcium 9.0 (8.4-10.2) mg/dL Magnesium 2.0 (1.6-2.3) mg/dL Total Bilirubin 0.4 (0.2-1.3) mg/dL AST 49 (17-59) U/L ALT 23 (4-49) U/L Alkaline Phosphatase 42 (38-126) U/L Troponin I (0.000-0.034) ng/mL Total Protein 6.5 (6.3-8.2) g/dL Albumin 4.0 (3.5-5.0) g/dL 01/13/24 Range/Units 09:48 WBC (3.8-10.6) k/uL RBC (4.30-5.90) m/uL Hgb (13.0-17.5) gm/dL Hct (39.0-53.0) % MCV (80.0-100.0) fL MCH (25.0-35.0) pg MCHC (31.0-37.0) g/dL RDW (11.5-15.5) % Plt Count (150-450) k/uL MPV Neutrophils % % Lymphocytes % % Monocytes % % Eosinophils % % Basophils % % Neutrophils # (1.3-7.7) k/uL Lymphocytes # (1.0-4.8) k/uL Monocytes # (0-1.0) k/uL Eosinophils # (0-0.7) k/uL Basophils # (0-0.2) k/uL PT (10.0-12.5) sec INR (<1.2) APTT (22.0-30.0) sec Sodium (137-145) mmol/L Potassium (3.5-5.1) mmol/L Chloride (98-107) mmol/L Carbon Dioxide (22-30) mmol/L Anion Gap mmol/L BUN (9-20) mg/dL Creatinine (0.66-1.25) mg/dL Est GFR (CKD-EPI)AfAm (>60 ml/min/1.73 sqM) Est GFR (CKD-EPI)NonAf (>60 ml/min/1.73 sqM) Glucose (74-99) mg/dL Calcium (8.4-10.2) mg/dL Magnesium (1.6-2.3) mg/dL Total Bilirubin (0.2-1.3) mg/dL AST (17-59) U/L ALT (4-49) U/L Alkaline Phosphatase (38-126) U/L Troponin I <0.012 (0.000-0.034) ng/mL Total Protein (6.3-8.2) g/dL Albumin (3.5-5.0) g/dL - EKG Data -: EKG Interpreted by Me EKG Comments: 12-lead Electrocardiogram Interpretation Note EKG was reviewed and interpreted by myself. 12-lead ECG performed at 0909 is interpreted by me as revealing normal sinus rhythm at a rate of 91 beats per minute. [place] is leftward deviated. SC interval is 153 ms, QRS duration is 92 ms, QTc is 413 ms.. There were no ST or T wave abnormalities to suggest myocardial ischemia or injury. R wave progression across the precordium was satisfactory. By my interpretation this EKG is non-diagnostic for acute ischemia. With EKG from January 10, 2024, no acute dynamic changes present. Disposition Clinical Impression: Chest pain Disposition: ADMITTED IP TO THIS HOSP Condition: Stable Time of Disposition: 10:54
[2024-01-13 10:18] LABS: INR 0.9 (<1.2); Partial Thromboplastin Time 23.9 sec (22.0-30.0)
[2024-01-13 10:22] LABS: ALT 23 U/L (4-49); AST 49 U/L (17-59); African American GFR (CKD) >90 (>60 ml/min/1.73 sqM); Alkaline Phosphatase 42 U/L (38-126); Anion Gap 7 mmol/L; Blood Urea Nitrogen 10 mg/dL (9-20); Carbon Dioxide 25 mmol/L (22-30); Chloride 108 mmol/L (98-107); Glucose 133 mg/dL (74-99); Non-African American GFR(CKD) >90 (>60 ml/min/1.73 sqM); Potassium 4.3 mmol/L (3.5-5.1); Sodium 140 mmol/L (137-145); Total Bilirubin 0.4 mg/dL (0.2-1.3); Total Protein 6.5 g/dL (6.3-8.2)
[2024-01-13 10:25] LABS: Basophils % (A) 1 %; Eosinophils % (A) 1 %; HCT 38.5 % (39.0-53.0); HGB 12.7 gm/dL (13.0-17.5); Lymphocytes # (A) 1.2 k/uL (1.0-4.8); Lymphocytes % (A) 39 %; MCH 32.8 pg (25.0-35.0); MCV 99.2 fL (80.0-100.0); Mean Platelet Volume 8.8; Monocytes # (A) 0.2 k/uL (0-1.0); Monocytes % (A) 6 %; Neutrophils # (A) 1.6 k/uL (1.3-7.7); Neutrophils % (A) 50 %; Platelet Count 177 k/uL (150-450); RBC 3.88 m/uL (4.30-5.90); RDW 14.5 % (11.5-15.5); WBC 3.1 k/uL (3.8-10.6)
--- NOTE | 2024-01-13 10:36 | CT ---
EXAMINATION TYPE: CT brain anuj wo con DATE OF EXAM: 01/13/2024 10:16 AM COMPARISON: None. CLINICAL INDICATION: Male, 63 years old with history of fall, minor head trauma., Fall, minor head in jury, pain TECHNIQUE: CT of the brain is performed utilizing 3 mm thick sections through the posterior fossa and 3 mm thick sections through the remaining calvarium. Study is performed within 24 hours of arrival to the hospital. Contrast used: mL of , (none if empty) CT DLP: 1424.1 mGycm, Automated exposure control for dose reduction was used. FINDINGS: No abnormal hyperdensity is present to suggest an acute intracranial hemorrhage. No mass lesion is evident. There is minimal stable physiologic basal ganglion calcification greater o n the right. No acute infarcts are evident. Ventricles and sulci are appropriate for the patient age. Previous nasal bone fractures remain present Paranasal sinuses and mastoid air cells within the [id number] are clear. IMPRESSIONS: 1. No acute intracranial process. Follow-up MRI can be performed as clinically indicated. 2. Nasal bone fractures, present previously CT cervical spine. COMPARISON: None TECHNIQUE: CT of the cervical spine is performed in the axial plane at 2 mm thick sections. Reconstr ucted images in the coronal, and sagittal plane are reviewed on the computer. FINDINGS: No acute fractures are evident. There is cervical kyphosis centered at C3-4. Disc space narrowing is present throughout the cervical spine. Vertebral body heights are preserved. No spinal canal stenosis is evident. No neural foraminal stenosis is evident. IMPRESSION: 1. No acute osseous abnormality cervical spine [facility], Workstation: [id number], 01/13/2024 10:34 AM
[2024-01-13] MEDS ORDERED: NALOXONE 0.4 MG/ML 1 ML VIAL IV PRN (10:51)
--- NOTE | 2024-01-13 11:13 | XR ---
EXAMINATION TYPE: XR chest 2V DATE OF EXAM: 01/13/2024 10:50 AM COMPARISON: 01/10/2024 CLINICAL INDICATION: Male, 63 years old with history of Chest Pain, , TECHNIQUE: AP and lateral views FINDINGS: Heart borderline enlarged. Aorta and pulmonary vasculature within normal limits. Mild interstitial pr ominence. No consolidation or pleural effusion. Old healed right-sided rib fracture deformities. Surg ical clips GE junction. IMPRESSION: 1. Borderline cardiomegaly. 2. Mild interstitial density could reflect bronchitis or asthma. [facility], , 01/13/2024 11:11 AM
[2024-01-13] MEDS: SODIUM CHLORIDE 0.9% 1,000 ML IV SCH (11:47)
[2024-01-13] MEDS: ASPIRIN 81 MG PO STA (11:50)
--- NOTE | 2024-01-13 13:38 | P.CRDCN ---
History of Present Illness History of present illness: HISTORY OF PRESENT ILLNESS: This is a 63-year-old male with a past medical history significant for syncope (x 3 episodes per patient), coronary artery disease, hypertension, hyperlipidemi a, nicotine dependence, alcohol abuse, and medication noncompliance. Patient has been seen in the hospital but has never followed up in the office with a manufacturing engineer automotive. We have been asked to see the patient in consultation for chest pain. Patient examined at the bedside in the emergency room. Patient was recently hospitalized for chest pain and syncope. He was discharged 2 days ago. Patient came to the hospital with a chief complaint of chest pain and an episode of syncope. He states his roommate passed out for 5-6 minutes. He states he stood up to shut off the TV and then passed out. He states the chest pain started before to all of this happening. He reports feeling shortness of breath. He did receive some morphine which helped the pain. DIAGNOSTICS: - EKG reveals sinus mechanism with no signs of acute ischemia - Chest xray borderline cardiomegaly. Mild interstitial density could reflect bronchitis or asthma. - Laboratory data: WBC 3.1. Hemoglobin 12.7. Platelet count 177. Sodium 140. Potassium 4.3. BUN 10. Creatinine 0.75. Magnesium 2.0. Troponin negative x 1 - Current home cardiac medications include aspirin 81 mg daily - Most recent echocardiogram obtained in 01/04/2024 revealing ejection fraction 55 to 60%, mild mitral regurgitation and mild to moderate tricuspid regurgitation. -Patient underwent Lexiscan stress test on 01/04/2024 revealing perfusion defect involving the inferior wall though larger and more pronounced on stress imaging. Further clinical and EKG correlation recommended to differentiate between extensive diaphragmatic attenuation artifact versus old inferior wall infarct, in which case some subtle sydni-infarct ischemia would be difficult to exclude. - Cardiac catheterization history: November 2019 revealing mild in-stent restenosis involving the LAD. No other significant CAD. Medical management was recommended. REVIEW OF SYSTEMS: At the time of my exam: CONSTITUTIONAL: Denies fever or chills. HEENT: Denies blurred vision, vision changes, or eye pain. Denies hemoptysis CARDIOVASCULAR: Denies chest pain. Denies orthopnea. Denies PND. Denies palpitations RESPIRATORY: Denies shortness of breath. GASTROINTESTINAL: Denies abdominal pain. Denies nausea or vomiting. HEMATOLOGIC: Denies bleeding disorders. GENITOURINARY: Denies any blood in urine. SKIN: Denies pruitis. Denies rash. PHYSICAL EXAM: VITAL SIGNS: Reviewed. GENERAL: Well-developed in no acute distress. HEENT: Head is normocephalic. Pupils are equal, round. Sclerae anicteric. Mucous membranes of the mouth are moist. Neck supple. No JVD or thyromegaly LUNGS: Respirations even and unlabored. Lungs essentially clear to auscultation bilaterally. HEART: Regular rate and rhythm. S1 and S2 heard. ABDOMEN: Soft. Nondistended. Nontender. EXTREMITIES: Normal range of motion. No clubbing or cyanosis. Peripheral pulses intact. No lower extremity edema NEUROLOGIC: Awake and alert. Oriented x 3. ASSESSMENT: Chest pain Recurrent syncope, x 3 episodes per patient Recent admission for chest pain History of lexiscan stress test performed in December 2023 revealing possible subtle sydni-infarct ischemia Coronary artery disease with previous stenting of the LAD Hypertension Hyperlipidemia Nicotine dependence Medication compliance History of alcohol abuse PLAN: Continue telemetry monitoring Obtain orthostatic blood pressure Begin aspirin and statin Will discuss with Dr. Moody about possibility of heart cath to be performed tomorrow. NPO at midnight Event monitor at discharge Recommend smoking cessation and abstinence from alcohol Further recommendations pending patient course Nurse practitioner note has been reviewed by physician. Signing provider agrees with the documented findings, assessment, and plan of care documented by PHOTO CHECKER AND ASSEMBLER as a scribe. Past Medical History Past Medical History: Coronary Artery Disease (CAD), Chest Pain / Angina, Hyperlipidemia, Myocardial Infarction (SD), Osteoarthritis (OA) Additional Past Medical History / Comment(s): arthritis in back and bilateral kn ees,hx hiatal hernia Last Myocardial Infarction Date:: 2004 History of Any Multi-Drug Resistant Organisms: Other MDRO Past Surgical History: Bowel Resection, Heart Catheterization With Stent Additional Past Surgical History / Comment(s): Cardiac stents x 4, bowel surgery for pinpoint hole in bowel, L knee arthroscopy, colonoscopy/benign polypectomies,hiatal hernia repair Past Anesthesia/Blood Transfusion Reactions: No Reported Reaction Date of Last Stent Placement:: 2013 Past Psychological History: Bipolar, Depression, PTSD, Schizophrenia Smoking Status: Current every day smoker Past Alcohol Use History: Occasional Past Drug Use History: None Reported - Past Family History Father Family Medical History: Respiratory Disorder Additional Family Medical History / Comment(s): Father at age 64 from Black lung disease Mother Family Medical History: Hypertension, Myocardial Infarction (SD) Additional Family Medical History / Comment(s): Mother of an SD at 78yrs old. Brother(s) Family Medical History: Myocardial Infarction (SD) Additional Family Medical History / Comment(s): Patient has 10 brothers and 2 from myocardial infarction and had history of alcoholism. Sister(s) Family Medical History: Hypertension, Myocardial Infarction (SD) Additional Family Medical History / Comment(s): He has 7 sisters that are alive with no major medical problems. He has one son that has and one daughter that is alive and okay. Medications and Allergies Home Medications Medication Instructions Recorded Confirmed Type HYDROcodone/APAP 10-325MG [[place] 1 tab PO QID 12/17/22 01/13/24 History 10-325] Aspirin 81 mg PO DAILY #30 tab 12/18/22 01/13/24 Rx Allergies Allergy/AdvReac Type Severity Reaction Status Date / Time blueberry Allergy Rash/Hives Verified 01/13/24 11:40 nitroglycerin Allergy Swelling Verified 01/13/24 11:40 Physical Exam Vitals: Vital Signs Temp Pulse Resp BP Pulse Ox 01/13/24 11:54 98.5 F 79 18 121/87 97 01/13/24 09:15 98.4 F 94 20 120/75 96 Intake and Output 01/12/24 01/13/24 01/13/24 22:59 06:59 14:59 Other: Weight 74.843 kg Results 01/13/24 09:48 01/13/24 09:48 Cardiac Enzymes 01/13/24 01/13/24 Range/Units 09:48 09:48 AST 49 (17-59) U/L Troponin I <0.012 (0.000-0.034) ng/mL Coagulation 01/13/24 Range/Units 09:48 PT 10.0 (10.0-12.5) sec APTT 23.9 (22.0-30.0) sec CBC 01/13/24 Range/Units 09:48 WBC 3.1 L (3.8-10.6) k/uL RBC 3.88 L (4.30-5.90) m/uL Hgb 12.7 L (13.0-17.5) gm/dL Hct 38.5 L (39.0-53.0) % Plt Count 177 (150-450) k/uL Comprehensive Metabolic Panel 01/13/24 Range/Units 09:48 Sodium 140 (137-145) mmol/L Potassium 4.3 (3.5-5.1) mmol/L Chloride 108 H (98-107) mmol/L Carbon Dioxide 25 (22-30) mmol/L BUN 10 (9-20) mg/dL Creatinine 0.75 (0.66-1.25) mg/dL Glucose 133 H (74-99) mg/dL Calcium 9.0 (8.4-10.2) mg/dL AST 49 (17-59) U/L ALT 23 (4-49) U/L Alkaline Phosphatase 42 (38-126) U/L Total Protein 6.5 (6.3-8.2) g/dL Albumin 4.0 (3.5-5.0) g/dL Current Medications Generic Name Dose Route Start Last Admin Trade Name Freq PRN Reason Stop Dose Admin Heparin Sodium (Porcine) 5,000 unit 01/13/24 16:00 Heparin Sodium,Porcine 5,000 Unit/Ml 1 Ml Vial SQ Q8HR MORRIS Sodium Chloride 1,000 mls @ 75 mls/hr 01/13/24 11:00 01/13/24 11:47 Saline 0.9% IV 75 mls/hr .[id number] MORRIS Administration Morphine Sulfate 4 mg 01/13/24 10:51 Morphine Sulfate 4 Mg/Ml Syringe IV Q4HR PRN Severe Pain (Scale 7 to 10) Naloxone HCl 0.2 mg 01/13/24 10:51 Naloxone 0.4 Mg/Ml 1 Ml Vial IV Q2M PRN Opioid Reversal Intake and Output 01/12/24 01/13/24 01/13/24 22:59 06:59 14:59 Other: Weight 74.843 kg Patient Weight 01/14/24 06:59 Weight 74.843 kg 01/13/24 09:48 01/13/24 09:48
[2024-01-13] MEDS ORDERED: ALPRAZolam 0.5 MG TAB PO PRN (14:09)
[2024-01-13] MEDS ORDERED: ONDANSETRON 4 MG/2 ML VIAL IVP PRN (14:09)
--- NOTE | 2024-01-13 14:09 | P.HPIM ---
History of Present Illness H&P Date: 01/13/24 Chief Complaint: chest pain Lele is a 63-year-old male with past medical history of CAD status post prior stenting, schizophrenia, primary hypertension and hyperlipidemia Of note the patient was admitted to the hospital from January 08 to January 09. At that time the patient was complaining of substernal chest pain. Serum alcohol level was noted be 176. On prior hospital course cardiology had considered performing a left heart catheterization but the patient had declined. He was then discharged home. Of note the patient had a stress test on January 03, EKG portion revealed no EKG changes. Nuclear imaging however had revealed a fixed perfusion defect involving the inferior wall more pronounced and large on stress imaging. LVEF was noted be 55% echocardiogram revealed normal LV size and systolic function with mild mitral and mild to moderate tricuspid regurgitation. Of note the patient has had 3 heart catheterizations seen on chart review. His most recent heart catheterization was in November 2019. Heart catheterization at that time had revealed mild in-stent restenosis involving the LAD. Past Medical History Past Medical History: Coronary Artery Disease (CAD), Chest Pain / Angina, Hyperlipidemia, Myocardial Infarction ([place]), Osteoarthritis (OA) Additional Past Medical History / Comment(s): arthritis in back and bilateral knees,hx hiatal hernia Last Myocardial Infarction Date:: 2004 History of Any Multi-Drug Resistant Organisms: Other MDRO Past Surgical History: Bowel Resection, Heart Catheterization With Stent Additional Past Surgical History / Comment(s): Cardiac stents x 4, bowel surgery for pinpoint hole in bowel, L knee arthroscopy, colonoscopy/benign polypectomies ,hiatal hernia repair Past Anesthesia/Blood Transfusion Reactions: No Reported Reaction Date of Last Stent Placement:: 2013 Past Psychological History: Bipolar, Depression, PTSD, Schizophrenia Smoking Status: Current every day smoker Past Alcohol Use History: Occasional Past Drug Use History: None Reported - Past Family History Father Family Medical History: Respiratory Disorder Additional Family Medical History / Comment(s): Father at age 64 from Black lung disease Mother Family Medical History: Hypertension, Myocardial Infarction ([place]) Additional Family Medical History / Comment(s): Mother of an [place] at 78yrs old. Brother(s) Family Medical History: Myocardial Infarction ([place]) Additional Family Medical History / Comment(s): Patient has 10 brothers and 2 from myocardial infarction and had history of alcoholism. Sister(s) Family Medical History: Hypertension, Myocardial Infarction ([place]) Additional Family Medical History / Comment(s): He has 7 sisters that are alive with no major medical problems. He has one son that has and one daughter that is alive and okay. Medications and Allergies Home Medications Medication Instructions Recorded Confirmed Type HYDROcodone/APAP 10-325MG [Margie 1 tab PO QID 12/17/22 01/13/24 History 10-325] Aspirin 81 mg PO DAILY #30 tab 12/18/22 01/13/24 Rx Allergies Allergy/AdvReac Type Severity Reaction Status Date / Time blueberry Allergy Rash/Hives Verified 01/13/24 11:40 nitroglycerin Allergy Swelling Verified 01/13/24 11:40 Physical Exam Vitals: Vital Signs Temp Pulse Resp BP Pulse Ox 01/13/24 13:14 98.3 F 80 16 126/83 98 01/13/24 11:54 98.5 F 79 18 121/87 97 01/13/24 09:15 98.4 F 94 20 120/75 96 Intake and Output 01/12/24 01/13/24 01/13/24 22:59 06:59 14:59 Other: Weight 74.843 kg General: non toxic, no distress, appears older than stated age Derm: warm, dry Head: atraumatic, normocephalic, symmetric Eyes: EOMI, no lid lag, anicteric sclera, pupils equal round reactive to light ENT: Nose and ears atraumatic, no thrush, no pharyngeal erythema Neck: No thyromegaly, no cervical lymphadenopathy, trachea midline, supple Mouth: no lip lesion, mucus membranes moist Cardiovascular: S1S2 reg, no murmur, positive posterior tibial pulse bilateral, no edema, capillary refill less than 2 seconds Lungs: clear to ascultation bilateral, no ronchi, no rales, no wheeze, no accessory muscle use Abdominal: soft, nontender to palpation, no guarding, no appreciable organomegaly, normal bowel sounds Ext: no gross muscle atrophy, muscle strength muscle strength 5 out of 5 in all 4 extremities, no contractures Neuro: Moving all extremities spontaneously Psych: Alert, oriented, appropriate affect Results CBC & Chem 7: 01/13/24 09:48 01/13/24 09:48 Labs: Abnormal Lab Results - Last 24 Hours (Table) 01/13/24 01/13/24 Range/Units 09:48 09:48 WBC 3.1 L (3.8-10.6) k/uL RBC 3.88 L (4.30-5.90) m/uL Hgb 12.7 L (13.0-17.5) gm/dL Hct 38.5 L (39.0-53.0) % Chloride 108 H (98-107) mmol/L Glucose 133 H (74-99) mg/dL Assessment and Plan Assessment: #) Recurrent chest pain, previously the patient had a stress test in December 2023 which revealed a fixed perfusion defect involving the inferior wall more pronounced and large on stress imaging. He was offered a heart catheterization last hospital course but had declined- place in observation. telemetry santosh shields. regular diet today and npo midnight- appreciate cardiology recommendations #) CAD with prior LAD stent - continue home asa 81 mg daily #) Hx of hyperlipidemia as per chart review- not on any statin therapy however LDL on 01/10/2024 was noted to be 35 with a HDL of 129. I would hold any statin therapy given his favorable lipid profile #) no hx of diabetes- a1c on 06/2023 was 5.4% #) Tobacco use- uses 2 cigerettes/daily #) Primary htn -not on antihypertensives #) Hx of prior bowel resection 2/2 to perforation #) as per chart review- hx of PTSd/schziophrenia and bipolar disorder Dispo: med surge dvt ppx: lovenox 40 mg daily Gi ppx: none anticipate discharge 1-2 midnights Time with Patient: Greater than 30
[2024-01-13] MEDS: MORPHINE SULFATE 4 MG/ML SYRINGE IV PRN (14:51)
[2024-01-13] MEDS: HEPARIN SODIUM,PORCINE 5,000 UNIT/ML 1 ML VIAL SQ SCH (17:25)
[2024-01-13] MEDS: ALPRAZolam 0.25 MG TAB PO PRN (17:25)
[2024-01-13] MEDS: ATORVASTATIN 80 MG TAB PO SCH (19:58)
[2024-01-13] MEDS: SODIUM CHLORIDE 0.9% 1,000 ML in EMPTY BAG 1 BAG IV SCH (23:22)
[2024-01-14] MEDS: ASPIRIN 325 MG TAB PO ONE (04:18)
[2024-01-14] MEDS: ATORVASTATIN 80 MG TAB PO ONE (04:18)
[2024-01-14] MEDS ORDERED: HEPARIN SODIUM,PORCINE 10,000 UNIT in SODIUM CHLORIDE 0.9% 1,000 ML IRRIGATION PRN (07:00)
[2024-01-14] MEDS ORDERED: HEPARIN SODIUM,PORCINE (1 ML) 2,500 UNIT in SODIUM CHLORIDE 0.9% 250 ML IRRIGATION PRN (07:00)
[2024-01-14] MEDS: MIDAZOLAM 2 MG/2 ML VIAL IVP ONE (08:15)
[2024-01-14] MEDS: IV FLUID CONTINUATION 600 ML IV ONE (08:15)
[2024-01-14] MEDS: LIDOCAINE 1% INJ 10MG/ML (20 ML MDV) SQ ONE (08:15)
[2024-01-14] MEDS: VERAPAMIL SYRINGE (5 MG/10 ML) INTRAARTER ONE (08:17)
[2024-01-14] MEDS: HEPARIN SODIUM 1,000 UN/ML (10ML VL) IVP ONE (08:19)
[2024-01-14] MEDS ORDERED: RX INFO: IV CONTRAST WAS GIVEN 1 EACH MISC MISCELLANE PRN (08:25)
--- NOTE | 2024-01-14 08:28 | P.PCN ---
Date of Procedure: 01/14/24 Operative Findings: CARDIAC CATHETERIZATION PERFORMING PHYSICIAN: Primo Moody MD, RPVI PROCEDURE PERFORMED: 1. Selective right and left coronary angiogram 2. Left heart catheterization 3. Ultrasound-guided access of the right radial artery INDICATION: Symptomatic 63-year-old gentleman with CAD and prior stenting of the LAD COMPLICATION: None APPROACH: Right radial artery LEVEL OF SEDATION: Moderate with a sedation length of 11 minutes PROCEDURE DESCRIPTION: After obtaining an informed consent, the patient was brought to cardiac mechanical shop laborer. Local anesthesia was performed using lidocaine subcutaneously. The right radial artery was cannulated using Seldinger technique, under ultrasound javier dance the guidewire passed easily, following that we advanced a 5-Northern Irish sheath dilator assembly, the wire and dilator were removed and sheath was flushed. Following that, 2 mg of verapamil along with 5000 unit heparin were given. Selective right and left coronary angiogram using a 5-Northern Irish JR4 and JL 3.5 catheters. Following that we did left heart catheterization using 5 Northern Irish JR4 The procedure was completed there was no complication. SELECTIVE CORONARY ANGIOGRAM: The right coronary artery: Large caliber vessel and a dominant vessel appears to be angiographically normal Left main: Is angiographically normal The left circumflex: Large-caliber vessel nondominant vessel appears to be angiographically normal The left anterior descending artery: The LAD is stented in the midportion with mild in-stent restenosis appears to be the same as before HEMODYNAMICS: The LVEDP was 11 mmHg with no significant gradient across aortic valve CONCLUSION: 1. Mild in-stent restenosis of the mid LAD appears to be exactly the same as before 2. Normal left-sided filling pressure POSTPROCEDURE MANAGEMENT: Medical treatment
[2024-01-14] MEDS: ASPIRIN 81 MG PO SCH (08:52)
[2024-01-14] MEDS: THIAMINE 100 MG TAB PO SCH (09:00)
[2024-01-14] MEDS: SODIUM CHLORIDE 0.9% 1,000 ML IV SCH (09:00)
[2024-01-14 09:17] LABS: Basophils # (A) 0.04 X 10*3/uL (0.00-0.10); Eosinophils # (A) 0.05 X 10*3/uL (0.04-0.35); Eosinophils % (A) 1.3 %; HCT 34.3 % (39.6-50.0); Lymphocytes # (A) 2.13 X 10*3/uL (0.90-5.00); Lymphocytes % (A) 55.5 %; MCH 31.7 pg (27.0-32.0); MCHC 32.1 g/dL (32.0-37.0); MCV 98.8 FL (80.0-97.0); Mean Platelet Volume 11.2 FL (9.5-12.2); Monocytes # (A) 0.37 X 10*3/uL (0.20-1.00); Monocytes % (A) 9.6 %; NRBC Per 100 WBC 0 X 10*3/uL (0.00-0.01); Neutrophils # (A) 1.24 X 10*3/uL (1.80-7.70); Neutrophils % (A) 32.3 %; Platelet Count 163 X 10*3/uL (140-440); RBC 3.47 X 10*6/uL (4.40-5.60); RDW 14.6 % (11.5-14.5); WBC 3.84 X 10*3/uL (4.50-10.00)
[2024-01-14 09:19] LABS: ALT 31 U/L (10-49); AST 84 U/L (14-35); Albumin 3.4 g/dL (3.8-4.9); Alkaline Phosphatase 39 U/L (41-126); Blood Urea Nitrogen 10.8 mg/dL (9.0-27.0); Calcium 8.1 mg/dL (8.7-10.3); Carbon Dioxide 26.1 mmol/L (21.6-31.8); Chloride 105 mmol/L (96-109); Globulin 1.7 g/dL (1.6-3.3); Glucose 87 mg/dL (70-110); Sodium 138 mmol/L (135-145); Total Bilirubin 0.4 mg/dL (0.3-1.2); Total Protein 5.1 g/dL (6.2-8.2)
[2024-01-14 10:25] VITALS: RESP 15; TEMP 97.9
[2024-01-14] MEDS ORDERED: MAG HYDROX/AL HYDROX/SIMETH 30 ML CUP PO PRN (11:09)
--- NOTE | 2024-01-14 11:15 | P.DS ---
Providers Date of admission: 01/13/24 10:51 Attending physician: Mirtha Aguilera MD Consults: 01/13/24 10:51 Consult Physician Routine Consulting Provider: [facility] Consult Reason/Comments: chest pain Do you want consulting provider notified?: Yes Primary care physician: Physician Nonstaff Hospital Course: Hospital course the patient had an EKG which revealed normal sinus rhythm. He h ad serial troponin checked which were negative. He had a left heart catheterization on January 13. Left heart catheterization had revealed mild in- stent restenosis of mid LAD. The patient was noted to be complaining of chest pain after the procedure as well. Of note his alcohol level was noted be 79 upon admission. As cardiac etiologies of the patient's chest pain has been ruled out is more likely the patient has other noncardiac etiologies such as possibly gastritis. The patient was discharged home with pantoprazole. Patient Condition at Discharge: Stable Plan - Discharge Summary Discharge Rx Participant: No New Discharge Prescriptions: New Atorvastatin [Lipitor] 80 mg PO HS 30 Days #30 tab Thiamine [Vitamin B-1] 100 mg PO DAILY 30 Days #30 tab Pantoprazole [Protonix] 40 mg PO DAILY 30 Days #30 tab Continue Aspirin 81 mg PO DAILY #30 tab Discontinued HYDROcodone/APAP 10-325MG [Poston 10-325] 1 tab PO QID Discharge Medication List Aspirin 81 mg PO DAILY #30 tab 12/18/22 [Rx] Atorvastatin [Lipitor] 80 mg PO HS 30 Days #30 tab 01/14/24 [Rx] Pantoprazole [Protonix] 40 mg PO DAILY 30 Days #30 tab 01/14/24 [Rx] Thiamine [Vitamin B-1] 100 mg PO DAILY 30 Days #30 tab 01/14/24 [Rx] Follow up Appointment(s)/Referral(s): Nonstaff,Physician [Primary Care Provider] - 1-2 days Discharge Disposition: HOME SELF-CARE
[2024-01-14 13:13] VITALS: BP 116/78; PULSE 64
[2024-01-14] MEDS: PANTOPRAZOLE 40 MG TABLET PO SCH (13:31)
== END 2024-01-14 14:25 | disposition home or self-care (01) ==
LOC: EC 08:56 → 6NMEDSUR 10:51
PROVIDERS: ADMIT Internal Medicine; ATTEND Internal Medicine
DX: R07.2 Precordial pain (principal); G89.29 Other chronic pain; T82.855A Stenosis of coronary artery stent, initial encounter; I25.10 Atherosclerotic heart disease of native coronary artery without angina pectoris; R94.39 Abnormal result of other cardiovascular function study; I10 Essential (primary) hypertension; Z91.148 Patient's other noncompliance with medication regimen for other reason; I08.1 Rheumatic disorders of both mitral and tricuspid valves; E78.5 Hyperlipidemia, unspecified; F17.200 Nicotine dependence, unspecified, uncomplicated; F10.10 Alcohol abuse, uncomplicated; Y90.3 Blood alcohol level of 60-79 mg/100 ml; R55 Syncope and collapse; F20.9 Schizophrenia, unspecified; F31.9 Bipolar disorder, unspecified; F43.10 Post-traumatic stress disorder, unspecified; Y83.1 Surgical operation with implant of artificial internal device as the cause of abnormal reaction of the patient, or of later complication, without mention of misadventure at the time of the procedure; Z88.8 Allergy status to other drugs, medicaments and biological substances; Z91.018 Allergy to other foods; Z79.82 Long term (current) use of aspirin; Z79.891 Long term (current) use of opiate analgesic; Z90.49 Acquired absence of other specified parts of digestive tract
CPT/HCPCS: 96376 ×2; 96372; 96361; 96374; 99285; 36415; 94760; 93005; 93458; 80053 ×2; 83735; 84484; 85025 ×2; 85610; 85730; 71046; 72125; 70450; G0378 ×2; G0480; J2250; J2270 ×2; J1644 ×2; J2003; 80320

== ENCOUNTER 2024-03-12 15:21 | Emergency (ER) | payer MEDICARE, OTHER ==
--- NOTE | 2024-03-12 15:41 | ED ---
Fall HPI - General Chief Complaint: Fall Stated Complaint: fall Time Seen by Provider: 03/12/24 15:31 Source: patient, RN notes reviewed, old records reviewed Mode of arrival: ambulatory Limitations: no limitations - History of Present Illness Initial Comments: This is a 63-year-old male to the ER for evaluation patient presents on a fall outside fall down icy stairs complaining of right-sided chest pain with history of right-sided rib fractures, states he has some shortness of breath with cough may have coughed up blood occasional no current coughing or coughing of blood noted. 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: no Place Fall Occurred: home Loss of Consciousness: none Prolonged Down Time?: no Symptoms Prior to Fall: none Location: chest (Right side rib cage) Severity: moderate Severity scale (1-10): 7 Quality: sharp Context: tripped/slipped Associated Symptoms: denies - Related Data Previous Rx's Medication Instructions Recorded Aspirin 81 mg PO DAILY #30 tab 12/18/22 Atorvastatin [Lipitor] 80 mg PO HS 30 Days #30 tab 01/14/24 Pantoprazole [Protonix] 40 mg PO DAILY 30 Days #30 tab 01/14/24 Thiamine [Vitamin B-1] 100 mg PO DAILY 30 Days #30 tab 01/14/24 Allergies Allergy/AdvReac Type Severity Reaction Status Date / Time blueberry Allergy Rash/Hives Verified 03/12/24 15:27 nitroglycerin Allergy Swelling Verified 03/12/24 15:27 Review of Systems ROS Statement: Those systems with pertinent positive or pertinent negative responses have been documented in the HPI. ROS Other: All systems not noted in ROS Statement are negative. Past Medical History Past Medical History: Coronary Artery Disease (CAD), Chest Pain / Angina, Hyperlipidemia, Myocardial Infarction ([place]), Osteoarthritis (OA) Additional Past Medical History / Comment(s): arthritis in back and bilateral knees,hx hiatal hernia Last Myocardial Infarction Date:: 2004 History of Any Multi-Drug Resistant Organisms: Other MDRO Past Surgical History: Bowel Resection, Heart Catheterization With Stent Additional Past Surgical History / Comment(s): Cardiac stents x 4, bowel surgery for pinpoint hole in bowel, L knee arthroscopy, colonoscopy/benign polypectomies,hiatal hernia repair Past Anesthesia/Blood Transfusion Reactions: No Reported Reaction Date of Last Stent Placement:: 2013 Past Psychological History: Bipolar, Depression, PTSD, Schizophrenia Smoking Status: Current every day smoker Past Alcohol Use History: Occasional Past Drug Use History: None Reported - Past Family History Father Family Medical History: Respiratory Disorder Additional Family Medical History / Comment(s): Father at age 64 from Black lung disease Mother Family Medical History: Hypertension, Myocardial Infarction ([place]) Additional Family Medical History / Comment(s): Mother of an [place] at 78yrs old. Brother(s) Family Medical History: Myocardial Infarction ([place]) Additional Family Medical History / Comment(s): Patient has 10 brothers and 2 from myocardial infarction and had history of alcoholism. Sister(s) Family Medical History: Hypertension, Myocardial Infarction ([place]) Additional Family Medical History / Comment(s): He has 7 sisters that are alive with no major medical problems. He has one son that has and one daughter that is alive and okay. General Exam Limitations: no limitations General appearance: alert, in no apparent distress Head exam: Present: atraumatic, normocephalic, normal inspection Eye exam: Present: normal appearance, PERRL, EOMI. Absent: scleral icterus, conjunctival injection, periorbital swelling ENT exam: Present: normal exam, mucous membranes moist Neck exam: Present: normal inspection. Absent: tenderness, meningismus, lymphadenopathy Respiratory exam: Present: normal lung sounds bilaterally. Absent: respiratory distress, wheezes, rales, rhonchi, stridor Cardiovascular Exam: Present: regular rate, normal rhythm, normal heart sounds. Absent: systolic murmur, diastolic murmur, rubs, gallop, clicks GI/Abdominal exam: Present: soft, normal bowel sounds. Absent: distended, tenderness, guarding, rebound, rigid Extremities exam: Present: normal inspection, full ROM, normal capillary refill. Absent: tenderness, pedal edema, joint swelling, calf tenderness Back exam: Present: normal inspection Neurological exam: Present: alert, oriented X3, CN II-XII intact Psychiatric exam: Present: normal affect, normal mood Skin exam: Present: warm, dry, intact, normal color. Absent: rash Course Vital Signs 03/12/24 03/12/24 15:23 17:20 Temperature 98.7 F Pulse Rate 96 74 Respiratory 18 14 Rate Blood Pressure 144/81 118/84 O2 Sat by Pulse 98 97 Oximetry - Reevaluation(s) Reevaluation #1: 03/12/24 16:41 Medical records reviewed Reevaluation #2: 03/12/24 16:41 Patient pain is improved Reevaluation #3: 03/12/24 17:55 Patient informed of results and questions answered Reevaluation #4: Was pt. sent in by a medical professional or institution (, ISABELLA, PULP OPERATOR, urgent care, hospital, or senior care...) When possible be specific @ -no Did you speak to anyone other than the patient for history (EMS, parent, family, police, friend...)? What history was obtained from this source @ -no Did you review nursing and triage notes (agree or disagree)? Why? @ -agree Are old charts reviewed (outside hosp., previous admission, EMS record, old EKG, old radiological studies, urgent care reports/EKG's, senior care records)? Report findings @ -yes Differential Diagnosis (chest pain, altered mental status, abdominal pain women, abdominal pain men, vaginal bleeding, weakness, fever, dyspnea, syncope, headache, dizziness, GI bleed, back pain, seizure, CVA, palpatations, mental health, musculoskeletal)? @ -prior EKG interpreted by me (3pts min.). @ -yes X-rays interpreted by me (1pt min.). @ -yes negative for acute disease CT interpreted by me (1pt min.). @ -no U/S interpreted by me (1pt. min.). @ -no What testing was considered but not performed or refused? (CT, X-rays, U/S, labs)? Why? @ -none What meds were considered but not given or refused? Why? @ -none Did you discuss the management of the patient with other professionals (professionals i.e. ISABELLA Sanchez, PULP OPERATOR, lab, RT, psych nurse, bilingual social worker, grain shipper, teacher, aeronautical engineering officer, caser up)? Give summary @ -no Was smoking cessation discussed for >3mins.? @ -no Was critical care preformed (if so, how long)? @ -no Were there social determinants of health that impacted care today? How? (Homelessness, low income, unemployed, alcoholism, drug addiction, transportation, low edu. Level, literacy, decrease access to med. care, penitentiary, rehab)? @ -none Was there de-escalation of care discussed even if they declined (Discuss DNR or withdrawal of care, Hospice)? DNR status @ -no What co-morbidities impacted this encounter? (DM, HTN, Smoking, COPD, CAD, C ancer, CVA, ARF, Chemo, Hep., AIDS, mental health diagnosis, sleep apnea, morbid obesity)? @ -none Was patient admitted / discharged? Hospital course, mention meds given and route, prescriptions, significant lab abnormalities, going to OR and other pertinent info. @ - Undiagnosed new problem with uncertain prognosis? @ -no Drug Therapy requiring intensive monitoring for toxicity (Heparin, Nitro, Insulin, Cardizem)? @ -no Were any procedures done? @ -no Diagnosis/symptom? @ - Acute, or Chronic, or Acute on Chronic? @ -Acute Uncomplicated (without systemic symptoms) or Complicated (systemic symptoms)? @ -Complicated Side effects of treatment? @ -no Exacerbation, Progression, or Severe Exacerbation? @ -exacerbation Poses a threat to life or bodily function? How? (Chest pain, [place], [place], pneumonia, PE, COPD, DKA, ARF, appy, cholecystitis, CVA, Diverticulitis, Homicidal, Suicidal, threat to staff... and all critical care pts) @ -yes Reevaluation #5: Differential Chest Pain: Stable Angina, Unstable Angina, STEMI, NSTEMI Aortic Dissection, Pneumothorax, M usculoskeletal, Esophageal Spasm GERD, Cholecystitis, Pancreatitis, Zoster, this is not meant to be an all-inclusive list. Medical Decision Making - Medical Decision Making 63 male to the ER for evaluation patient presents today for evaluation regards to chest wall pain after fall. Chest wall contusions with old rib fractures. Troponin initially elevated but diminishing at 6 evaluation patient can be discharged home - Lab Data Result diagrams: 03/12/24 15:53 03/12/24 15:53 Lab Results 03/12/24 03/12/24 03/12/24 Range/Units 15:53 15:53 15:53 WBC 4.4 (3.8-10.6) k/uL RBC 3.62 L (4.30-5.90) m/uL Hgb 12.2 L (13.0-17.5) gm/dL Hct 36.5 L (39.0-53.0) % MCV 100.8 H (80.0-100.0) fL MCH 33.7 (25.0-35.0) pg MCHC 33.4 (31.0-37.0) g/dL RDW 14.2 (11.5-15.5) % Plt Count 158 (150-450) k/uL MPV 8.9 Neutrophils % 46 % Lymphocytes % 41 % Monocytes % 8 % Eosinophils % 1 % Basophils % 1 % Neutrophils # 2.0 (1.3-7.7) k/uL Lymphocytes # 1.8 (1.0-4.8) k/uL Monocytes # 0.4 (0-1.0) k/uL Eosinophils # 0.0 (0-0.7) k/uL Basophils # 0.0 (0-0.2) k/uL Macrocytosis Slight PT 10.0 (10.0-12.5) sec INR 0.9 (<1.2) APTT 22.3 (22.0-30.0) sec Sodium 139 (137-145) mmol/L Potassium 4.7 (3.5-5.1) mmol/L Chloride 108 H (98-107) mmol/L Carbon Dioxide 27 (22-30) mmol/L Anion Gap 4 mmol/L BUN 12 (9-20) mg/dL Creatinine 0.76 (0.66-1.25) mg/dL Est GFR (CKD-EPI)AfAm >90 (>60 ml/min/1.73 sqM) Est GFR (CKD-EPI)NonAf >90 (>60 ml/min/1.73 sqM) Glucose 63 L (74-99) mg/dL Plasma Lactic Acid Jayy (0.7-2.0) mmol/L Calcium 9.2 (8.4-10.2) mg/dL Phosphorus 3.5 (2.5-4.5) mg/dL Magnesium 2.0 (1.6-2.3) mg/dL Total Bilirubin 0.9 (0.2-1.3) mg/dL AST 41 (17-59) U/L ALT 20 (4-49) U/L Alkaline Phosphatase 39 (38-126) U/L Troponin I (0.000-0.034) ng/mL NT-Pro-B Natriuret Pep 84 pg/mL Total Protein 6.4 (6.3-8.2) g/dL Albumin 3.9 (3.5-5.0) g/dL Lipase 184 (23-300) U/L Urine Color Urine Appearance (Clear) Urine pH (5.0-8.0) Ur Specific Jackson (1.001-1.035) Urine Protein (Negative) Urine Glucose (UA) (Negative) Urine Ketones (Negative) Urine Blood (Negative) Urine Nitrite (Negative) Urine Bilirubin (Negative) Urine Urobilinogen (<2.0) mg/dL Ur Leukocyte Esterase (Negative) Serum Alcohol <10 mg/dL 03/12/24 03/12/24 03/12/24 Range/Units 15:53 15:53 16:35 WBC (3.8-10.6) k/uL RBC (4.30-5.90) m/uL Hgb (13.0-17.5) gm/dL Hct (39.0-53.0) % MCV (80.0-100.0) fL MCH (25.0-35.0) pg MCHC (31.0-37.0) g/dL RDW (11.5-15.5) % Plt Count (150-450) k/uL MPV Neutrophils % % Lymphocytes % % Monocytes % % Eosinophils % % Basophils % % Neutrophils # (1.3-7.7) k/uL Lymphocytes # (1.0-4.8) k/uL Monocytes # (0-1.0) k/uL Eosinophils # (0-0.7) k/uL Basophils # (0-0.2) k/uL Macrocytosis PT (10.0-12.5) sec INR (<1.2) APTT (22.0-30.0) sec Sodium (137-145) mmol/L Potassium (3.5-5.1) mmol/L Chloride (98-107) mmol/L Carbon Dioxide (22-30) mmol/L Anion Gap mmol/L BUN (9-20) mg/dL Creatinine (0.66-1.25) mg/dL Est GFR (CKD-EPI)AfAm (>60 ml/min/1.73 sqM) Est GFR (CKD-EPI)NonAf (>60 ml/min/1.73 sqM) Glucose (74-99) mg/dL Plasma Lactic Acid Jayy 0.9 (0.7-2.0) mmol/L Calcium (8.4-10.2) mg/dL Phosphorus (2.5-4.5) mg/dL Magnesium (1.6-2.3) mg/dL Total Bilirubin (0.2-1.3) mg/dL AST (17-59) U/L ALT (4-49) U/L Alkaline Phosphatase (38-126) U/L Troponin I 0.014 (0.000-0.034) ng/mL NT-Pro-B Natriuret Pep pg/mL Total Protein (6.3-8.2) g/dL Albumin (3.5-5.0) g/dL Lipase (23-300) U/L Urine Color Yellow Urine Appearance Clear (Clear) Urine pH 5.5 (5.0-8.0) Ur Specific Jackson 1.020 (1.001-1.035) Urine Protein Negative (Negative) Urine Glucose (UA) Negative (Negative) Urine Ketones Negative (Negative) Urine Blood Negative (Negative) Urine Nitrite Negative (Negative) Urine Bilirubin Negative (Negative) Urine Urobilinogen <2.0 (<2.0) mg/dL Ur Leukocyte Esterase Negative (Negative) Serum Alcohol mg/dL - EKG Data -: EKG Interpreted by Me (EKG sinus 90 WA 154 QRS 86 QTc 403) - Radiology Data Radiology results: report reviewed (X-ray chest ribs shoulder negative for acute disease), image reviewed Disposition Clinical Impression: Fall, Contusion of rib on right side Disposition: HOME SELF-CARE Condition: Good Instructions (If sedation given, give patient instructions): Fall Prevention for Older Adults (ED) Is patient prescribed a controlled substance at d/c from ED?: No Referrals: Nonstaff,Physician [Primary Care Provider] - 1-2 days Time of Disposition: 18:30
[2024-03-12] MEDS: SODIUM CHLORIDE 0.9% 1,000 ML IV STA (16:00)
[2024-03-12] MEDS: HYDROmorphone 1 MG/ML 1 ML SYRINGE IVP STA ×2 (16:00→18:18)
[2024-03-12] MEDS: ONDANSETRON 4 MG/2 ML VIAL IVP STA (16:00)
[2024-03-12 16:14] LABS: INR 0.9 (<1.2); Partial Thromboplastin Time 22.3 sec (22.0-30.0)
[2024-03-12 16:15] LABS: ALT 20 U/L (4-49); AST 41 U/L (17-59); African American GFR (CKD) >90 (>60 ml/min/1.73 sqM); Albumin 3.9 g/dL (3.5-5.0); Alcohol <10 mg/dL; Alkaline Phosphatase 39 U/L (38-126); Anion Gap 4 mmol/L; Blood Urea Nitrogen 12 mg/dL (9-20); Calcium 9.2 mg/dL (8.4-10.2); Carbon Dioxide 27 mmol/L (22-30); Chloride 108 mmol/L (98-107); Glucose 63 mg/dL (74-99); Lipase 184 U/L (23-300); Non-African American GFR(CKD) >90 (>60 ml/min/1.73 sqM); Phosphorus 3.5 mg/dL (2.5-4.5); Potassium 4.7 mmol/L (3.5-5.1); Sodium 139 mmol/L (137-145); Total Bilirubin 0.9 mg/dL (0.2-1.3); Total Protein 6.4 g/dL (6.3-8.2)
[2024-03-12 16:23] LABS: NT-Pro-B-Type Natriuretic Pept 84 pg/mL
--- NOTE | 2024-03-12 16:29 | XR ---
EXAMINATION TYPE: XR shoulder complete RT, XR ribs RT w pa chest xray DATE OF EXAM: 03/12/2024 4:17 PM COMPARISON: Previous shoulder radiographs 01/10/2024. CLINICAL INDICATION: Male, 63 years old with history of fall; [facility] TECHNIQUE: XR shoulder complete RT, XR ribs RT w pa chest xray; examined in AP, internally rotated an d scapular Y projections. FINDINGS: Right shoulder: No evidence of acute osseous pathology, joint dislocation, or soft tissue swelling. The remaining po rtions of the visualized chest are unremarkable. Degeneration changes of the acromion, distal clavic le with osteophyte formation. There is osteophyte formation of the glenoid and humeral head. There is joint space narrowing of glenohumeral joint. Chest with RIBS: Cardiac silhouette is within normal limits for size. There are few focal consolidation. No pleural effusion. No pneumothorax. Old right-sided rib fracture deformities. No definite acute displaced rib fracture. IMPRESSION: Right shoulder: No acute fracture or dislocation. PA chest with right-sided RIBS: Old right-sided rib fracture deformities, similar to prior study 01/23/2024. No definite acute displa mila rib fracture identified. No acute cardiac pulmonary process. [facility], , 03/12/2024 4:27 PM
[2024-03-12 16:43] LABS: Appearance,Urine Clear (Clear); Bilirubin,Urine Negative (Negative); Blood,Urine Negative (Negative); Color,Urine Yellow; Glucose,Urine (UA) Negative (Negative); Ketones,Urine Negative (Negative); Leukocyte Esterase,Urine Negative (Negative); Nitrite,Urine Negative (Negative); PH, Urine 5.5 (5.0-8.0); Protein,Urine Negative (Negative); Urobilinogen,Urine <2.0 mg/dL (<2.0)
[2024-03-12 16:45] LABS: Basophils % (A) 1 %; Eosinophils % (A) 1 %; HCT 36.5 % (39.0-53.0); HGB 12.2 gm/dL (13.0-17.5); Lymphocytes # (A) 1.8 k/uL (1.0-4.8); Lymphocytes % (A) 41 %; MCH 33.7 pg (25.0-35.0); MCHC 33.4 g/dL (31.0-37.0); MCV 100.8 fL (80.0-100.0); Macrocytosis Slight; Mean Platelet Volume 8.9; Monocytes # (A) 0.4 k/uL (0-1.0); Monocytes % (A) 8 %; Neutrophils % (A) 46 %; Platelet Count 158 k/uL (150-450); RBC 3.62 m/uL (4.30-5.90); RDW 14.2 % (11.5-15.5); WBC 4.4 k/uL (3.8-10.6)
[2024-03-12 17:22] VITALS: RESP 14
[2024-03-12 18:44] VITALS: BP 131/87; PULSE 72; TEMP 98
== END 2024-03-12 18:56 | disposition home or self-care (01) ==
LOC: EC 15:21
DX: S20.211A Contusion of right front wall of thorax, initial encounter (principal); F17.200 Nicotine dependence, unspecified, uncomplicated; Z91.018 Allergy to other foods; Z88.8 Allergy status to other drugs, medicaments and biological substances; W10.9XXA Fall (on) (from) unspecified stairs and steps, initial encounter
CPT/HCPCS: 36415; 93005; 83880; 80053; 83605; 83690; 83735; 84100; 84484; 85025; 85610; 85730; 81003; 71101; 73030; 99284; 96374; 96375; 96376; 96361; G0480; J2405; J1171; 80320

== ENCOUNTER 2024-04-02 09:21 | Observation (INO) | payer MEDICARE, OTHER ==
--- NOTE | 2024-04-02 10:15 | ED ---
General Adult HPI - General Chief complaint: Chest Pain Stated complaint: Fall-Chest pain Time Seen by Provider: 04/02/24 09:40 Source: patient Mode of arrival: wheelchair - History of Present Illness Initial comments: Dictation was produced using [employer] dictation software. please excuse any grammatical, word or spelling errors. Chief Complaint: 63-year-old male with chest pain History of Present Illness: Patient 63-year-old male presents emergency department chest pain and syncope. States that he had symptoms this morning. Patient states he passed out a couple times recently. Denies any head injury or head trauma or any sort of pain complaints outside of his chest. States that his pressure that feels like a previous heart attack that he had in the past. Denies any symptoms at the bedside. The ROS documented in this emergency department record has been reviewed and confirmed by me. Those systems with pertinent positive or negative responses have been documented in the HPI. All other systems are other negative and/or noncontributory. - Related Data Previous Rx's Medication Instructions Recorded Aspirin 81 mg PO DAILY #30 tab 12/18/22 Atorvastatin [Lipitor] 80 mg PO HS 30 Days #30 tab 01/14/24 Pantoprazole [Protonix] 40 mg PO DAILY 30 Days #30 tab 01/14/24 Thiamine [Vitamin B-1] 100 mg PO DAILY 30 Days #30 tab 01/14/24 Allergies Allergy/AdvReac Type Severity Reaction Status Date / Time blueberry Allergy Rash/Hives Verified 04/02/24 09:29 nitroglycerin Allergy Swelling Verified 04/02/24 09:29 Review of Systems ROS Statement: Those systems with pertinent positive or pertinent negative responses have been documented in the HPI. ROS Other: All systems not noted in ROS Statement are negative. Past Medical History Past Medical History: Coronary Artery Disease (CAD), Chest Pain / Angina, Hyperlipidemia, Myocardial Infarction (SC), Osteoarthritis (OA) Additional Past Medical History / Comment(s): arthritis in back and bilateral knees,hx hiatal hernia Last Myocardial Infarction Date:: 2004 History of Any Multi-Drug Resistant Organisms: Other MDRO Past Surgical History: Bowel Resection, Heart Catheterization With Stent Additional Past Surgical History / Comment(s): Cardiac stents x 4, bowel surgery for pinpoint hole in bowel, L knee arthroscopy, colonoscopy/benign polypectomies,hiatal hernia repair Past Anesthesia/Blood Transfusion Reactions: No Reported Reaction Date of Last Stent Placement:: 2013 Past Psychological History: Bipolar, Depression, PTSD, Schizophrenia Smoking Status: Current every day smoker Past Alcohol Use History: Occasional Past Drug Use History: None Reported - Past Family History Father Family Medical History: Respiratory Disorder Additional Family Medical History / Comment(s): Father at age 64 from Black lung disease Mother Family Medical History: Hypertension, Myocardial Infarction (SC) Additional Family Medical History / Comment(s): Mother of an SC at 78yrs old. Brother(s) Family Medical History: Myocardial Infarction (SC) Additional Family Medical History / Comment(s): Patient has 10 brothers and 2 from myocardial infarction and had history of alcoholism. Sister(s) Family Medical History: Hypertension, Myocardial Infarction (SC) Additional Family Medical History / Comment(s): He has 7 sisters that are alive with no major medical problems. He has one son that has and one daughter that is alive and okay. General Exam - General Exam Comments Initial Comments: PHYSICAL EXAM: General Impression: Alert and oriented x3, not in acute distress HEENT: Normocephalic atraumatic, extra-ocular movements intact, pupils equal and reactive to light bilaterally, mucous membranes moist. 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 No OH prolongation, no QTC prolongation, no ST or T-wave changes noted. Overall, this EKG is unremarkable Medical Decision Making - Medical Decision Making Was pt. sent in by a medical professional or institution (, PA, ELASTIC ASSEMBLER, urgent care, hospital, or custodial...) When possible be specific @ -No Did you speak to anyone other than the patient for history (EMS, parent, family, police, friend...)? What history was obtained from this source @ -No Did you review nursing and triage notes (agree or disagree)? Why? @ -I reviewed and agree with nursing and triage notes Were old charts reviewed (outside hosp., previous admission, EMS record, old EKG, old radiological studies, urgent care reports/EKG's, custodial records)? Report findings @ -No old charts were reviewed Differential Diagnosis (chest pain, altered mental status, abdominal pain women, abdominal pain men, vaginal bleeding, musculoskeletal, weakness, fever, dyspnea, syncope, headache, dizziness, GI bleed, back pain, seizure, CVA, palpatations, mental health)? @ -Differential Chest Pain: Stable Angina, Unstable Angina, STEMI, NSTEMI Aortic Dissection, Pneumothorax, Musculoskeletal, Esophageal Spasm GERD, Cholecystitis, Pancreatitis, Zoster, this is not meant to be an all-inclusive list. EKG interpreted by me (3pts min.). @ -See above X-rays interpreted by me (1pt min.). @ -Chest x-ray is nonacute CT interpreted by me (1pt min.). @ -None done U/S interpreted by me (1pt. min.). @ -None done What testing was considered but not performed or refused? (CT, X-rays, U/S, labs)? Why? @ -None What meds were considered but not given or refused? Why? @ -None Was smoking cessation discussed for >3mins.? @ -No Were there social determinants of health that impacted care today? How? (Homelessness, low income, unemployed, alcoholism, drug addiction, transportation, low edu. Level, literacy, decrease access to med. care, long-term, rehab)? @ -No Was there de-escalation of care discussed even if they declined (Discuss DNR or withdrawal of care, Hospice)? DNR status @ -No What co-morbidities impacted this encounter? (DM, HTN, Smoking, COPD, CAD, Cancer, CVA, ARF, Chemo, Hep., AIDS, mental health diagnosis, sleep apnea, morbid obesity)? @ -Coronary artery disease Was patient admitted / discharged? Hospital course, mention meds given and route, prescriptions, significant lab abnormalities, going to OR and other pertinent info. @ -63-year-old male presents to the emergency department chest pain concerning for acute coronary syndrome. He has history of coronary artery disease. Vital signs are stable. EKG is unremarkable. Patient pain-free and well-appearing at the bedside. Laboratory evaluation is unremarkable. Troponin is negative. Given patient's history of coronary artery disease and report of symptoms feeling like previous heart attack he will be admitted observation consultation to cardiology. Patient given aspirin. Case discussed with hospitalist for admission Did you discuss the management of the patient with other professionals (professionals i.e. , PA, ELASTIC ASSEMBLER, lab, RT, psych nurse, social services coordinator, printing press operator apprentice, teacher, unclaimed property officer, corrections caseworker)? Give summary @ -See above Was critical care preformed (if so, how long)? @ -No Undiagnosed new problem with uncertain prognosis? @ -No Drug Therapy requiring intensive monitoring for toxicity (Heparin, Nitro, Insulin, Cardizem)? @ -No Were any procedures done? @ -No Diagnosis/symptom? Acute, or Chronic, or Acute on Chronic? Uncomplicated (without systemic symptoms) or Complicated (systemic symptoms)? @ -Acute coronary syndrome Side effects of treatment? @ -No Exacerbation, Progression, or Severe Exacerbation? @ -No Poses a threat to life or bodily function? How? (Chest pain, USA, SC, pneumonia, PE, COPD, DKA, ARF, appy, cholecystitis, CVA, Diverticulitis, Homicidal, Suicidal, threat to staff... and all critical care pts) @ -Yes - Lab Data Result diagrams: 04/02/24 10:05 04/02/24 10:05 Lab Results 04/02/24 04/02/24 04/02/24 Range/Units 10:05 10:05 10:05 WBC 4.4 (3.8-10.6) k/uL RBC 3.94 L (4.30-5.90) m/uL Hgb 13.0 (13.0-17.5) gm/dL Hct 39.9 (39.0-53.0) % MCV 101.3 H (80.0-100.0) fL MCH 33.0 (25.0-35.0) pg MCHC 32.6 (31.0-37.0) g/dL RDW 14.2 (11.5-15.5) % Plt Count 184 (150-450) k/uL MPV 9.0 Neutrophils % (Manual) 43 % Lymphocytes % 42 % Lymphocytes % (Manual) 53 % Monocytes % 8 % Monocytes % (Manual) 4 % Eosinophils % 1 % Basophils % 0 % Neutrophils # 1.9 (1.3-7.7) k/uL Lymphocytes # 1.8 (1.0-4.8) k/uL Monocytes # 0.4 (0-1.0) k/uL Eosinophils # 0.1 (0-0.7) k/uL Basophils # 0.0 (0-0.2) k/uL Nucleated RBCs 0 (0-0) /100 WBC Manual Slide Review Performed Macrocytosis Slight PT 10.4 (10.0-12.5) sec INR 0.9 (<1.2) APTT 23.3 (22.0-30.0) sec Sodium 135 L (137-145) mmol/L Potassium 4.4 (3.5-5.1) mmol/L Chloride 103 (98-107) mmol/L Carbon Dioxide 26 (22-30) mmol/L Anion Gap 6 mmol/L BUN 13 (9-20) mg/dL Creatinine 0.75 (0.66-1.25) mg/dL Est GFR (CKD-EPI)AfAm >90 (>60 ml/min/1.73 sqM) Est GFR (CKD-EPI)NonAf >90 (>60 ml/min/1.73 sqM) Glucose 83 (74-99) mg/dL Calcium 9.6 (8.4-10.2) mg/dL Magnesium 1.8 (1.6-2.3) mg/dL Total Bilirubin 1.2 (0.2-1.3) mg/dL AST 39 (17-59) U/L ALT 23 (4-49) U/L Alkaline Phosphatase 39 (38-126) U/L Troponin I (0.000-0.034) ng/mL Total Protein 6.6 (6.3-8.2) g/dL Albumin 3.9 (3.5-5.0) g/dL 04/02/24 Range/Units 10:05 WBC (3.8-10.6) k/uL RBC (4.30-5.90) m/uL Hgb (13.0-17.5) gm/dL Hct (39.0-53.0) % MCV (80.0-100.0) fL MCH (25.0-35.0) pg MCHC (31.0-37.0) g/dL RDW (11.5-15.5) % Plt Count (150-450) k/uL MPV Neutrophils % (Manual) % Lymphocytes % % Lymphocytes % (Manual) % Monocytes % % Monocytes % (Manual) % Eosinophils % % Basophils % % Neutrophils # (1.3-7.7) k/uL Lymphocytes # (1.0-4.8) k/uL Monocytes # (0-1.0) k/uL Eosinophils # (0-0.7) k/uL Basophils # (0-0.2) k/uL Nucleated RBCs (0-0) /100 WBC Manual Slide Review Macrocytosis PT (10.0-12.5) sec INR (<1.2) APTT (22.0-30.0) sec Sodium (137-145) mmol/L Potassium (3.5-5.1) mmol/L Chloride (98-107) mmol/L Carbon Dioxide (22-30) mmol/L Anion Gap mmol/L BUN (9-20) mg/dL Creatinine (0.66-1.25) mg/dL Est GFR (CKD-EPI)AfAm (>60 ml/min/1.73 sqM) Est GFR (CKD-EPI)NonAf (>60 ml/min/1.73 sqM) Glucose (74-99) mg/dL Calcium (8.4-10.2) mg/dL Magnesium (1.6-2.3) mg/dL Total Bilirubin (0.2-1.3) mg/dL AST (17-59) U/L ALT (4-49) U/L Alkaline Phosphatase (38-126) U/L Troponin I <0.012 (0.000-0.034) ng/mL Total Protein (6.3-8.2) g/dL Albumin (3.5-5.0) g/dL Disposition Clinical Impression: Chest pain Disposition: ADMITTED IP TO THIS HOSP Condition: Fair Referrals: Nonstaff,Physician [Primary Care Provider] - 1-2 days Decision Time: 12:17
[2024-04-02] MEDS: MORPHINE SULFATE 4 MG/ML SYRINGE IV STA (10:27)
[2024-04-02] MEDS: ASPIRIN 81 MG PO STA (10:28)
--- NOTE | 2024-04-02 10:28 | XR ---
EXAMINATION TYPE: XR chest 2V DATE OF EXAM: 04/02/2024 10:17 AM COMPARISON: None. CLINICAL INDICATION: Male, 63 years old with history of Chest Pain, TECHNIQUE: XR chest 2V view(s) obtained. FINDINGS: The heart size is normal. The pulmonary vasculature is normal. The lungs are clear. IMPRESSION: 1. No acute pulmonary process. [facility], , 04/02/2024 10:25 AM
[2024-04-02 11:00] LABS: INR 0.9 (<1.2); Partial Thromboplastin Time 23.3 sec (22.0-30.0); Prothrombin Time 10.4 sec (10.0-12.5)
[2024-04-02 11:06] LABS: Basophils % (A) 0 %; Eosinophils # (A) 0.1 k/uL (0-0.7); Eosinophils % (A) 1 %; HCT 39.9 % (39.0-53.0); Lymphocytes # (A) 1.8 k/uL (1.0-4.8); Lymphocytes % (A) 42 %; MCHC 32.6 g/dL (31.0-37.0); MCV 101.3 fL (80.0-100.0); Macrocytosis Slight; Monocytes # (A) 0.4 k/uL (0-1.0); Monocytes % (A) 8 %; Neutrophils # (A) 1.9 k/uL (1.3-7.7); Platelet Count 184 k/uL (150-450); RBC 3.94 m/uL (4.30-5.90); RDW 14.2 % (11.5-15.5); WBC 4.4 k/uL (3.8-10.6)
[2024-04-02 11:20] LABS: ALT 23 U/L (4-49); AST 39 U/L (17-59); African American GFR (CKD) >90 (>60 ml/min/1.73 sqM); Albumin 3.9 g/dL (3.5-5.0); Alkaline Phosphatase 39 U/L (38-126); Anion Gap 6 mmol/L; Blood Urea Nitrogen 13 mg/dL (9-20); Calcium 9.6 mg/dL (8.4-10.2); Carbon Dioxide 26 mmol/L (22-30); Chloride 103 mmol/L (98-107); Glucose 83 mg/dL (74-99); Magnesium 1.8 mg/dL (1.6-2.3); Non-African American GFR(CKD) >90 (>60 ml/min/1.73 sqM); Potassium 4.4 mmol/L (3.5-5.1); Sodium 135 mmol/L (137-145); Total Bilirubin 1.2 mg/dL (0.2-1.3); Total Protein 6.6 g/dL (6.3-8.2)
[2024-04-02 11:22] LABS: Neutrophils % (M) 43 %; Nucleated Red Blood Cells 0 /100 WBC (0-0); Total Cells Counted 100
--- NOTE | 2024-04-02 14:15 | P.HPIM ---
History of Present Illness H&P Date: 04/02/24 History of Presenting Illness: Patient is a 63-year-old male with a past medical history of CAD status post stenting, hypertension, hyperlipidemia, bowel resection secondary to p erforation, anxiety and depression, bipolar disorder, PTSD, schizophrenia, and nicotine use reported smoking only 2 cigarettes daily. He presented to the emergency department with a chief complaint of chest pain. Patient reports chest pain began around 6 AM this morning and describes as a pressure-like sensation to midsternal chest. Reports pain is constant and unrelenting. He denies having any headache, lightheadedness, dizziness, palpitations, shortness of breath, cough or congestion, nausea, vomiting, or experiencing any numbness/tingling/weakness/swelling in his extremities. Upon arrival to our facility, patient underwent evaluation in the emergency department. Vital signs upon arrival show blood pressure 127/84, heart rate 81, respiratory rate 18, temp 97.9 F, and SpO2 of 98% on room air. EKG completed showing sinus rhythm at 69 bpm with left ventricular hypertrophy. Chest x-ray negative for acute cardiopulmonary process. Labs completed and reviewed. CBC showing macrocytosis with MCV of 101.3. Coagulation profile normal findings BMP unremarkable. Blood glucose 83. Magnesium 1.8. Liver profile unremarkable. Troponin was negative at less than 0.012. Patient admitted under services with consultation to cardiology. Review of systems: Pertinent positives and negatives as discussed in HPI, a complete review of systems was performed and all other systems are negative. Physical exam: Vital signs reviewed and stable. General: Nontoxic, no distress and appears stated age. Derm: Skin warm and dry, normal coloration for ethnicity. Head: Atraumatic, normocephalic and symmetric. Eyes: EOM's intact, no lid lag, and anicteric sclera Mouth: no lip lesions, mucus membranes moist Cardiovascular: regular rate and rhythm with normal S1S2, no murmur, positive p osterior tibial pulses bilaterally, and cap refill < 2 seconds. Lungs: Respirations even, regular, and unlabored on room air. Lungs CTA bilaterally, no rhonchi, no rales, no wheezing, and no accessory muscle usage. Abdominal: soft, nontender to palpation, no guarding, no appreciable organomegaly Ext: ROM intact. No gross muscle atrophy, no edema, no contractures Neuro: Speech clear, face symmetrical and CN II-XII grossly intact with no noted focal neuro deficits Psych: Alert and oriented to person, place, time, and situation. Appropriate and pleasant affect. Assessment and Plan of Care: Chest pain, rule out acute coronary event Status post tenting Hypertension Hyperlipidemia -Cardiology consulted, appreciate recommendations -Telemetry monitoring -Trend troponins -Cardiac diet, NPO at midnight -Aspirin 81 mg daily and atorvastatin 80 mg nightly, Anxiety with depression Bipolar disorder PTSD Schizophrenia -Continue daily medication regimen with Effexor 75 mg daily, Seroquel 200 mg nightly and 50 mg twice daily. Data and imaging reviewed: As stated above in HPI The patient is admitted with an anticipated less than 2 midnight stay for evaluation of chest pain CODE STATUS: Full code DVT prophylaxis: Lovnox Anticipated discharge date: 24 to [address]: Home Patient was seen independently by Nurse Practitioner. This document was prepared using [employer] dictation software. Please allow for errors in termite exterminator while rare they do occur. Layo Muller NP rendered care for this patient independently, reviewed the findings and plan as documented in the note above and agree with plan. I did not physically speak with or examine the patient on this date. Past Medical History Past Medical History: Coronary Artery Disease (CAD), Chest Pain / Angina, Hyperlipidemia, Myocardial Infarction (MS), Osteoarthritis (OA) Additional Past Medical History / Comment(s): arthritis in back and bilateral knees,hx hiatal hernia Last Myocardial Infarction Date:: 2004 History of Any Multi-Drug Resistant Organisms: Other MDRO Past Surgical History: Bowel Resection, Heart Catheterization With Stent Additional Past Surgical History / Comment(s): Cardiac stents x 4, bowel surgery for pinpoint hole in bowel, L knee arthroscopy, colonoscopy/benign polypectomies,hiatal hernia repair Past Anesthesia/Blood Transfusion Reactions: No Reported Reaction Date of Last Stent Placement:: 2013 Past Psychological History: Bipolar, Depression, PTSD, Schizophrenia Smoking Status: Current every day smoker Past Alcohol Use History: Occasional Past Drug Use History: None Reported - Past Family History Father Family Medical History: Respiratory Disorder Additional Family Medical History / Comment(s): Father at age 64 from Black lung disease Mother Family Medical History: Hypertension, Myocardial Infarction (MS) Additional Family Medical History / Comment(s): Mother of an MS at 78yrs old. Brother(s) Family Medical History: Myocardial Infarction (MS) Additional Family Medical History / Comment(s): Patient has 10 brothers and 2 from myocardial infarction and had history of alcoholism. Sister(s) Family Medical History: Hypertension, Myocardial Infarction (MS) Additional Family Medical History / Comment(s): He has 7 sisters that are alive with no major medical problems. He has one son that has and one daughter that is alive and okay. Medications and Allergies Home Medications Medication Instructions Recorded Confirmed Type Aspirin 81 mg PO DAILY #30 tab 12/18/22 04/02/24 Rx Atorvastatin [Lipitor] 80 mg PO HS 30 Days #30 tab 01/14/24 04/02/24 Rx HYDROcodone/APAP 10-325MG [Marathon 1 tab PO QID PRN 04/02/24 04/02/24 History 10-325] QUEtiapine FUMARATE [SEROquel] 200 mg PO HS 04/02/24 04/02/24 History QUEtiapine [SEROquel] 50 mg PO BID 04/02/24 04/02/24 History Venlafaxine HCl [Effexor XR] 75 mg PO DAILY 04/02/24 04/02/24 History Allergies Allergy/AdvReac Type Severity Reaction Status Date / Time blueberry Allergy Rash/Hives Verified 04/02/24 12:52 nitroglycerin Allergy Swelling Verified 04/02/24 12:52 Physical Exam Vitals: Vital Signs Temp Pulse Pulse Resp BP Pulse Ox 04/02/24 13:00 91 18 105/78 95 04/02/24 12:04 65 16 120/91 97 04/02/24 10:31 78 18 120/90 95 04/02/24 09:42 75 04/02/24 09:26 97.9 F 81 18 127/84 98 Intake and Output 04/01/24 04/02/24 04/02/24 22:59 06:59 14:59 Other: Weight 74.843 kg Results CBC & Chem 7: 04/02/24 10:05 04/02/24 10:05 Labs: Abnormal Lab Results - Last 24 Hours (Table) 04/02/24 04/02/24 Range/Units 10:05 10:05 RBC 3.94 L (4.30-5.90) m/uL MCV 101.3 H (80.0-100.0) fL Sodium 135 L (137-145) mmol/L
[2024-04-02] MEDS: HYDROcodone/APAP 10-325MG 1 EACH TAB PO PRN (14:33)
[2024-04-02] MEDS: ATORVASTATIN 80 MG TAB PO SCH (20:09)
[2024-04-02] MEDS: QUEtiapine 50 MG TAB PO SCH (20:09)
[2024-04-02] MEDS: QUEtiapine 200 MG TAB PO SCH (21:23)
[2024-04-03 07:43] VITALS: TEMP 98.2
[2024-04-03 08:12] LABS: HCT 37.8 % (39.0-53.0); HGB 11.9 gm/dL (13.0-17.5); MCH 32.4 pg (25.0-35.0); MCHC 31.4 g/dL (31.0-37.0); MCV 103.2 fL (80.0-100.0); Macrocytosis Slight; Mean Platelet Volume 9.5; Platelet Count 168 k/uL (150-450); RBC 3.66 m/uL (4.30-5.90); RDW 13.8 % (11.5-15.5); WBC 3.7 k/uL (3.8-10.6)
[2024-04-03 08:24] LABS: ALT 19 U/L (4-49); AST 26 U/L (17-59); African American GFR (CKD) >90 (>60 ml/min/1.73 sqM); Albumin 3.5 g/dL (3.5-5.0); Albumin/Globulin Ratio 1.4; Alkaline Phosphatase 33 U/L (38-126); Anion Gap 2 mmol/L; Blood Urea Nitrogen 11 mg/dL (9-20); Calcium 8.9 mg/dL (8.4-10.2); Carbon Dioxide 30 mmol/L (22-30); Chloride 102 mmol/L (98-107); Globulin 2.5 g/dL; Glucose 91 mg/dL (74-99); Magnesium 1.9 mg/dL (1.6-2.3); Non-African American GFR(CKD) >90 (>60 ml/min/1.73 sqM); Potassium 3.9 mmol/L (3.5-5.1); Sodium 134 mmol/L (137-145); Total Bilirubin 0.8 mg/dL (0.2-1.3)
[2024-04-03] MEDS ORDERED: ASPIRIN 325 MG TAB PO SCH (09:00)
[2024-04-03] MEDS: VENLAFAXINE HCL ER 75 MG CAP PO SCH (09:11)
[2024-04-03] MEDS: ASPIRIN 81 MG PO SCH (09:11)
[2024-04-03] MEDS: ENOXAPARIN 40 MG/0.4 ML SYRINGE SQ SCH (09:11)
--- NOTE | 2024-04-03 12:12 | P.CRDCN ---
History of Present Illness Consult date: 04/03/24 Requesting physician: Mirtha Aguilera Reason for Consult (text): chest pain Chief complaint: syncope History of present illness: This is a pleasant 63-year-old woman patient who has been following with a molder apprentice out of [facility] but states his molder apprentice recently passed and he would like to follow-up here with past medical history of syncope, CAD with prior PCI of the LAD, hypertension, hyperlipidemia, nicotine dependence, alcohol abuse, medication noncompliance, and frequent hospital admissions. Presented to the hospital with complaints of chest pain and syncope. Patient apparently was having chest discomfort upon standing at which time he had a brief syncopal episode this happened a couple of times and it prompted him to come to the emergency department. He has had no exertional chest discomfort. At the time of my examination he is mostly complaining of a fluttering in his head as well as issues with allergies and requesting Benadryl. Diagnostics -EKG: Sinus bradycardia with no evidence of acute ischemia -Chest x-ray: No acute pulmonary process -Laboratory studies: White blood cell count 4.4, hemoglobin 13, sodium 135, potassium 4.4, BUN 13, creatinine 0.75, magnesium 1.8, and troponin less than 0.012 x 3 -Home cardiac medications: Aspirin 81 mg p.o. daily, atorvastatin 80 mg p.o. nightly -Prior stress test: Done here in December 2023 perfusion defect involving the inferior wall the larger and more pronounced on stress imaging, further clinical and EKG correlation recommended to differentiate between extensive diaphragmatic attenuation artifact versus old inferior wall infarct, in which case, some subtle sydni-infarct ischemia would be difficult to exclude -Echocardiogram: December 2023 normal LV systolic function with mild MR and mild to moderate TR -Cardiac catheterization: Done by Dr. Moody in January 2024 showed mild in-stent restenosis of the mid LAD which appears to be exactly the same compared to November 2019 Review Of Systems: At the time of my exam: CONSTITUTIONAL: Denies fever or chills. HEENT: Denies blurred vision, vision changes. CARDIOVASCULAR: Denies chest pain. Denies orthopnea. Denies PND. Denies palpitations, dizziness, or syncope. RESPIRATORY: Denies shortness of breath, wheezing, or cough. Denies hemoptysis. GASTROINTESTINAL: Denies abdominal pain. Denies nausea or vomiting. Denies bleeding. HEMATOLOGIC: Denies bleeding disorders. GENITOURINARY: Denies hematuria. SKIN: Complains of puritis. Denies rash. PHYSICAL EXAMINATION: This is a 63-year-old male in no apparent distress at the time of my examination. VITAL SIGNS: Reviewed. HEENT: Head is atraumatic, normocephalic. Pupils are equal, round. Sclerae an icteric. Conjunctivae are clear. Mucous membranes of the mouth are moist. Neck is supple. There is no elevated jugular venous pressure. No carotid bruit is heard. CHEST EXAMINATION: Clear to auscultation bilaterally. No wheezes rales or rhonchi. Respirations even and nonlabored. HEART EXAMINATION: Heart regular, positive S1 and S2. No S3. No S4. No clicks, rubs or murmurs. ABDOMEN: Soft, nontender. Bowel sounds are heard. No organomegaly noted. EXTREMITIES: 2+ peripheral pulses with no evidence of peripheral edema and no calf tenderness noted. NEUROLOGIC EXAMINATION: Patient is awake, alert and oriented x3. Assessment: 1. Symptoms of chest discomfort and syncope, acute coronary event has been ruled out 2. CAD with prior stenting of the LAD 3. Continue dependence 4. Hyperlipidemia Plan: From cardiology's perspective we will check orthostatic blood pressures. Otherwise there is no need for further cardiac workup at this time. From our perspective patient may be discharged home and per patient's request he will follow-up in the office with Dr. Moody. Thank you kindly for this consultation. Nurse practitioner note has been reviewed, I agree with documented findings and plan of care. Patient was seen and examined. Past Medical History Past Medical History: Coronary Artery Disease (CAD), Chest Pain / Angina, Hyperlipidemia, Myocardial Infarction (DC), Osteoarthritis (OA) Additional Past Medical History / Comment(s): arthritis in back and bilateral knees,hx hiatal hernia Last Myocardial Infarction Date:: 2004 History of Any Multi-Drug Resistant Organisms: Other MDRO Past Surgical History: Bowel Resection, Heart Catheterization With Stent Additional Past Surgical History / Comment(s): Cardiac stents x 5, bowel surgery for pinpoint hole in bowel, L knee arthroscopy, colonoscopy/benign polypectomie s,hiatal hernia repair Past Anesthesia/Blood Transfusion Reactions: No Reported Reaction Date of Last Stent Placement:: 2013 Past Psychological History: Bipolar, Depression, PTSD, Schizophrenia Additional Psychological History / Comment(s): He states he goes to [facility]. Smoking Status: Current every day smoker Past Alcohol Use History: Occasional Additional Past Alcohol Use History / Comment(s): Pt states he started smoking i n 1994 a pack will last him a month. Past Drug Use History: None Reported Additional Drug Use History / Comment(s): Pt states that he used MJ. Pt states that he had a previous history of cocaine abude, but it has been 5 years since the last use - Past Family History Father Family Medical History: Respiratory Disorder Additional Family Medical History / Comment(s): Father at age 64 from Black lung disease Mother Family Medical History: Hypertension, Myocardial Infarction (DC) Additional Family Medical History / Comment(s): Mother of an DC at 78yrs old. Brother(s) Family Medical History: Myocardial Infarction (DC) Additional Family Medical History / Comment(s): Patient has 10 brothers and 2 from myocardial infarction and had history of alcoholism. Sister(s) Family Medical History: Hypertension, Myocardial Infarction (DC) Additional Family Medical History / Comment(s): He has 7 sisters that are alive with no major medical problems. He has one son that has and one daughter that is alive and okay. Medications and Allergies Home Medications Medication Instructions Recorded Confirmed Type Aspirin 81 mg PO DAILY #30 tab 12/18/22 04/02/24 Rx Atorvastatin [Lipitor] 80 mg PO HS 30 Days #30 tab 01/14/24 04/02/24 Rx HYDROcodone/APAP 10-325MG [[place] 1 tab PO QID PRN 04/02/24 04/02/24 History 10-325] QUEtiapine FUMARATE [SEROquel] 200 mg PO HS 04/02/24 04/02/24 History QUEtiapine [SEROquel] 50 mg PO BID 04/02/24 04/02/24 History Venlafaxine HCl [Effexor XR] 75 mg PO DAILY 04/02/24 04/02/24 History Allergies Allergy/AdvReac Type Severity Reaction Status Date / Time blueberry Allergy Rash/Hives Verified 04/02/24 12:52 nitroglycerin Allergy Swelling Verified 04/02/24 12:52 Physical Exam Vitals: Vital Signs Temp Pulse Pulse Resp BP BP Pulse Ox 04/03/24 07:42 98.2 F 65 16 165/91 98 04/03/24 06:56 97.8 F 61 16 118/86 99 04/03/24 06:08 97.9 F 58 L 14 117/63 98 04/03/24 00:00 97.8 F 65 107/76 97 04/02/24 19:39 98.4 F 64 18 112/82 98 04/02/24 18:00 65 18 114/81 95 04/02/24 14:34 67 122/95 91 L 04/02/24 13:00 91 18 105/78 95 04/02/24 12:04 65 16 120/91 97 Intake and Output 04/02/24 04/03/24 04/03/24 22:59 06:59 14:59 Other: Weight 74.843 kg Results 04/03/24 07:52 04/03/24 07:52 Cardiac Enzymes 04/02/24 04/02/24 04/03/24 Range/Units 13:00 17:03 07:52 AST 26 (17-59) U/L Troponin I <0.012 <0.012 (0.000-0.034) ng/mL CBC 04/03/24 Range/Units 07:52 WBC 3.7 L (3.8-10.6) k/uL RBC 3.66 L (4.30-5.90) m/uL Hgb 11.9 L (13.0-17.5) gm/dL Hct 37.8 L (39.0-53.0) % Plt Count 168 (150-450) k/uL Comprehensive Metabolic Panel 04/03/24 Range/Units 07:52 Sodium 134 L (137-145) mmol/L Potassium 3.9 (3.5-5.1) mmol/L Chloride 102 (98-107) mmol/L Carbon Dioxide 30 (22-30) mmol/L BUN 11 (9-20) mg/dL Creatinine 0.70 (0.66-1.25) mg/dL Glucose 91 (74-99) mg/dL Calcium 8.9 (8.4-10.2) mg/dL AST 26 (17-59) U/L ALT 19 (4-49) U/L Alkaline Phosphatase 33 L (38-126) U/L Total Protein 6.0 L (6.3-8.2) g/dL Albumin 3.5 (3.5-5.0) g/dL Current Medications Generic Name Dose Route Start Last Admin Trade Name Freq PRN Reason Stop Dose Admin Hydrocodone Bitart/Acetaminophen 1 each 04/02/24 14:12 04/03/24 04:46 Hydrocodone/Apap 10-325mg 1 Each Tab PO 1 each QID PRN Administration Pain Aspirin 81 mg 04/03/24 09:00 04/03/24 09:11 Aspirin 81 Mg PO 81 mg DAILY MORRIS Administration Atorvastatin Calcium 80 mg 04/02/24 21:00 04/02/24 20:09 Atorvastatin 80 Mg Tab PO 80 mg HS MORRIS Administration Enoxaparin Sodium 40 mg 04/03/24 09:00 04/03/24 09:11 Enoxaparin 40 Mg/0.4 Ml Syringe SQ 40 mg DAILY MORRIS Administration Quetiapine Fumarate 50 mg 04/02/24 21:00 04/03/24 09:11 Quetiapine 50 Mg Tab PO 50 mg BID MORRIS Administration Quetiapine Fumarate 200 mg 04/02/24 21:00 04/02/24 21:23 Quetiapine 200 Mg Tab PO Not Given HS MORRIS Venlafaxine HCl 75 mg 04/03/24 09:00 04/03/24 09:11 Venlafaxine Hcl Er 75 Mg Cap PO 75 mg DAILY MORRIS Administration Intake and Output 04/02/24 04/03/24 04/03/24 22:59 06:59 14:59 Other: Weight 74.843 kg 04/03/24 07:52 04/03/24 07:52
--- NOTE | 2024-04-03 13:04 | P.DS ---
Providers Date of admission: 04/02/24 12:11 Expected date of discharge: 04/03/24 Attending physician: Mirtha Aguilera MD Consults: 04/02/24 12:11 Consult Physician Urgent Consulting Provider: Deanne Starr Consult Reason/Comments: chest pain Do you want consulting provider notified?: Yes Primary care physician: Physician Nonstaff Hospital Course: Discharge Diagnosis: Chest pain, acute coronary event ruled out CAD status post tenting Hypertension Hyperlipidemia Anxiety with depression Bipolar disorder PTSD Schizophrenia Hospital Course: Patient is a 63-year-old male with a past medical history of CAD status post stenting, hypertension, hyperlipidemia, bowel resection secondary to perforation, anxiety and depression, bipolar disorder, PTSD, schizophrenia, and nicotine use reported smoking only 2 cigarettes daily. He presented to the emergency department with a chief complaint of chest pain. Patient reports chest pain began around 6 AM this morning and describes as a pressure-like sensation to midsternal chest. Reports pain is constant and unrelenting. He denies having any headache, lightheadedness, dizziness, palpitations, shortness of breath, cough or congestion, nausea, vomiting, or experiencing any numbness/tingling/weakness/swelling in his extremities. Upon arrival to our facility, patient underwent evaluation in the emergency department. Vital signs upon arrival show blood pressure 127/84, heart rate 81, respiratory rate 18, temp 97.9 F, and SpO2 of 98% on room air. EKG completed showing sinus rhythm at 69 bpm with left ventricular hypertrophy. Chest x-ray negative for acute cardiopulmonary process. Labs completed and reviewed. CBC showing macrocytosis with MCV of 101.3. Coagulation profile normal findings BMP unremarkable. Blood glucose 83. Magnesium 1.8. Liver profile unremarkable. Troponin was negative at less than 0.012. Patient admitted under services with consultation to cardiology. Troponins trended overnight all negative at less than 0.012 x 3 draws. Repeat morning EKG showing sinus bradycardia at 58 bpm with a prolonged QT/QTc of 471/468 ms. Cardiology evaluated stating from cardiac perspective may be discharged home and to follow-up outpatient in the office with Dr. Moody in 1 week. Orthostatic vitals were completed and negative for orthostatic hypotension. Patient is medically optimized for discharge at this time. Patient to follow-up outpatient with PCP in 1 to 2 days and with cardiology in 1 week. No medication changes were made during this admission. Physical exam: Vital signs reviewed and stable. General: Nontoxic, no distress and appears stated age. Derm: Skin warm and dry, normal coloration for ethnicity. Head: Atraumatic, normocephalic and symmetric. Eyes: EOM's intact, no lid lag, and anicteric sclera Mouth: no lip lesions, mucus membranes moist Cardiovascular: regular rate and rhythm with normal S1S2, no murmur, positive posterior tibial pulses bilaterally, and cap refill < 2 seconds. Lungs: Respirations even, regular, and unlabored on room air. Lungs CTA bilaterally, no rhonchi, no rales, no wheezing, and no accessory muscle usage. Abdominal: soft, nontender to palpation, no guarding, no appreciable organomegaly Ext: ROM intact. No gross muscle atrophy, no edema, no contractures Neuro: Speech clear, face symmetrical and CN II-XII grossly intact with no noted focal neuro deficits Psych: Alert and oriented to person, place, time, and situation. Appropriate and pleasant affect. A total of 31 minutes of time were spent preparing this complex discharge summary. Pt was discharged on 04/03/2024 at 12:44 PM. Patient was seen independently by Nurse Practitioner. This document was prepared using [employer] dictation software. Please allow for errors in patient financial representative while rare they do occur. Layo Muller NP rendered care for this patient independently, reviewed the findings and plan as documented in the note above. I did not physically speak with or examine the patient on this date. Patient Condition at Discharge: Stable Plan - Discharge Summary Discharge Rx Participant: No New Discharge Prescriptions: Continue Aspirin 81 mg PO DAILY #30 tab QUEtiapine FUMARATE [SEROquel] 200 mg PO HS Atorvastatin [Lipitor] 80 mg PO HS 30 Days #30 tab Venlafaxine HCl [Effexor XR] 75 mg PO DAILY QUEtiapine [SEROquel] 50 mg PO BID HYDROcodone/APAP 10-325MG [[place] 10-325] 1 tab PO QID PRN PRN Reason: Pain Discharge Medication List Aspirin 81 mg PO DAILY #30 tab 12/18/22 [Rx] Atorvastatin [Lipitor] 80 mg PO HS 30 Days #30 tab 01/14/24 [Rx] HYDROcodone/APAP 10-325MG [[place] 10-325] 1 tab PO QID PRN 04/02/24 [History] QUEtiapine FUMARATE [SEROquel] 200 mg PO HS 04/02/24 [History] QUEtiapine [SEROquel] 50 mg PO BID 04/02/24 [History] Venlafaxine HCl [Effexor XR] 75 mg PO DAILY 04/02/24 [History] Follow up Appointment(s)/Referral(s): Primo Moody MD [STAFF PHYSICIAN] - 1 Week [facility] [NON-STAFF] - 1 Week Activity/Diet/Wound Care/Special Instructions: Activity: As tolerated. Take breaks as needed. Diet: Heart healthy and carb consistent diet. Avoid salts, or foods with hidden salts such as canned or boxed foods and frozen dinners. Extra salt makes your heart work harder and traps the fluid in your body for longer. Special Instructions: Take all of your medications as directed and remember to keep all of your doctor's appointments and follow-up as needed. Thank you for allowing us to participate in your care, it was truly a pleasure having you for our patient!!! Discharge Disposition: HOME SELF-CARE
[2024-04-03 13:13] VITALS: BP 113/77; PULSE 64; RESP 17
[2024-04-03] MEDS: LORATADINE 10 MG TAB PO STA (13:14)
[2024-04-03] MEDS: diphenhydrAMINE 25 MG CAP PO STA (13:14)
[2024-04-03 14:21] LABS: Chol/HDL Ratio 1.78 Ratio; LDL Cholesterol,Calculated 55.4 mg/dL (0.0-131.0); VLDL Calculation 15.52 mg/dL (5.00-40.00)
== END 2024-04-03 14:32 | disposition home or self-care (01) ==
LOC: EC 09:21 → 6NMEDSUR 12:11
PROVIDERS: ADMIT Internal Medicine; ATTEND Internal Medicine
DX: R07.89 Other chest pain (principal); I11.9 Hypertensive heart disease without heart failure; I25.10 Atherosclerotic heart disease of native coronary artery without angina pectoris; E78.5 Hyperlipidemia, unspecified; D75.89 Other specified diseases of blood and blood-forming organs; R00.1 Bradycardia, unspecified; F10.10 Alcohol abuse, uncomplicated; I25.2 Old myocardial infarction; F41.9 Anxiety disorder, unspecified; F43.10 Post-traumatic stress disorder, unspecified; F31.9 Bipolar disorder, unspecified; F20.9 Schizophrenia, unspecified; F17.210 Nicotine dependence, cigarettes, uncomplicated; Z79.82 Long term (current) use of aspirin; Z79.899 Other long term (current) drug therapy; Z88.8 Allergy status to other drugs, medicaments and biological substances; Z91.018 Allergy to other foods; Z95.5 Presence of coronary angioplasty implant and graft; Z90.49 Acquired absence of other specified parts of digestive tract; Z87.19 Personal history of other diseases of the digestive system
CPT/HCPCS: 96372; 96374; 99285; 36415; 93005; 80061; 80053 ×2; 83735 ×2; 84484; 85025; 85027; 85610; 85730; 71046; G0378 ×2; J2270; J1650

== ENCOUNTER → 2024-04-15 | Outpatient (CLI) | payer MEDICARE, OTHER ==
--- NOTE | 2024-04-15 08:31 | US ---
EXAMINATION TYPE: US kidneys/renal and bladder DATE OF EXAM: 04/15/2024 COMPARISON: Renal ultrasound 10/26/2023, abdominal ultrasound 12/29/2022, MR kidney 12/30/2022, CT abd omen and pelvis 12/28/2022, MR abdomen 04/25/2022 CLINICAL INDICATION: Male, 63 years old with history of N28.1 CYST OF KIDNEY; Follow up left kidney l esion TECHNIQUE: Grayscale imaging of the bilateral kidneys and urinary bladder: FINDINGS: EXAM MEASUREMENTS: Right Kidney: 10.8 x 5.8 x 5.4 cm Left Kidney: 10.9 x 5.8 x 6.1 cm Right Kidney: No hydronephrosis or masses seen Left Kidney: Possible dromedary hump seen. Lateral mid complex nonvascular lesion = 4.3 x 3.8 x 4.1 cm. Medial mid anechoic lesion = 0.9 x 1.1 x 0.9 cm Bladder: Anechoic Bilateral Jets not seen There is no evidence for hydronephrosis at this point in time. No nephrolithiasis is seen. Corticome dullary differentiation is maintained. No right renal masses. Left dromedary hump seen. There is a co mplex cystic lesion with some septations identified within the left lateral mid kidney measuring up t o 4.3 cm. Previously measured up to 3.8 cm. Additional simple left renal cyst in the medial aspect of the mid left kidney measuring up to 1.1 cm. No internal color flow identified. The urinary bladder i s anechoic. IMPRESSION: 1. No hydronephrosis or nephrolithiasis. 2. Continued enlargement of complex left renal cyst. Consider further evaluation with MR abdomen with IV contrast (renal mass protocol). [facility], , 04/15/2024 8:29 AM
== END | disposition home or self-care (01) ==
LOC: RADUSWWP 07:39
PROVIDERS: ATTEND Urology
DX: N28.1 Cyst of kidney, acquired (principal)
CPT/HCPCS: 76770

== ENCOUNTER 2024-04-18 08:36 | Observation (INO) | payer MEDICARE, OTHER ==
[2024-04-18] MEDS: ASPIRIN 81 MG PO STA (09:14)
--- NOTE | 2024-04-18 09:15 | ED ---
Chest Pain HPI - General Chief Complaint: Chest Pain Stated Complaint: Syncope, chest pain Time Seen by Provider: 04/18/24 08:44 Source: patient, RN notes reviewed Mode of arrival: wheelchair Limitations: no limitations - History of Present Illness Initial Comments: This is a 63-year-old male who presents to the emergency department for chest pain. States that it started yesterday and he has passed out twice. Denies hitting his head. Reports some radiation down his right arm and also feels like he cannot breathe. States that he feels like he is not getting enough oxygen to his brain and his head is tingling. This is how he has felt each time he has come here for chest pain in the past. He has a history of CAD with a stent in the LAD. MD Complaint: chest pain - Related Data Home Medications Medication Instructions Recorded Confirmed HYDROcodone/APAP 10-325MG [[place] 1 tab PO QID PRN 04/02/24 04/18/24 10-325] QUEtiapine FUMARATE [SEROquel] 200 mg PO HS 04/02/24 04/18/24 QUEtiapine [SEROquel] 50 mg PO BID 04/02/24 04/18/24 Venlafaxine HCl [Effexor XR] 75 mg PO DAILY 04/02/24 04/18/24 Previous Rx's Medication Instructions Recorded Aspirin 81 mg PO DAILY #30 tab 12/18/22 Atorvastatin [Lipitor] 80 mg PO HS 30 Days #30 tab 01/14/24 Allergies Allergy/AdvReac Type Severity Reaction Status Date / Time blueberry Allergy Rash/Hives Verified 04/18/24 11:27 nitroglycerin Allergy Swelling Verified 04/18/24 11:27 Review of Systems ROS Statement: Those systems with pertinent positive or pertinent negative responses have been documented in the HPI. ROS Other: All systems not noted in ROS Statement are negative. Past Medical History Past Medical History: Coronary Artery Disease (CAD), Chest Pain / Angina, Hyperlipidemia, Myocardial Infarction ([place]), Osteoarthritis (OA) Additional Past Medical History / Comment(s): arthritis in back and bilateral knees,hx hiatal hernia Last Myocardial Infarction Date:: 2004 History of Any Multi-Drug Resistant Organisms: Other MDRO Past Surgical History: Bowel Resection, Heart Catheterization With Stent Additional Past Surgical History / Comment(s): Cardiac stents x 5, bowel surgery for pinpoint hole in bowel, L knee arthroscopy, colonoscopy/benign polypectomies,hiatal hernia repair Past Anesthesia/Blood Transfusion Reactions: No Reported Reaction Date of Last Stent Placement:: 2013 Past Psychological History: Bipolar, Depression, PTSD, Schizophrenia Smoking Status: Current every day smoker Past Alcohol Use History: Occasional Past Drug Use History: None Reported - Past Family History Father Family Medical History: Respiratory Disorder Additional Family Medical History / Comment(s): Father at age 64 from Black lung disease Mother Family Medical History: Hypertension, Myocardial Infarction ([place]) Additional Family Medical History / Comment(s): Mother of an [place] at 78yrs old. Brother(s) Family Medical History: Myocardial Infarction ([place]) Additional Family Medical History / Comment(s): Patient has 10 brothers and 2 from myocardial infarction and had history of alcoholism. Sister(s) Family Medical History: Hypertension, Myocardial Infarction ([place]) Additional Family Medical History / Comment(s): He has 7 sisters that are alive with no major medical problems. He has one son that has and one daughter that is alive and okay. General Exam Limitations: no limitations General appearance: alert, in no apparent distress Head exam: Present: atraumatic, normocephalic, normal inspection Respiratory exam: Present: normal lung sounds bilaterally. Absent: respiratory distress, wheezes, rales, rhonchi, stridor Cardiovascular Exam: Present: regular rate, normal rhythm Neurological exam: Present: alert, oriented X3, CN II-XII intact Psychiatric exam: Present: normal affect, normal mood Skin exam: Present: warm, dry, intact, normal color. Absent: rash Course Vital Signs 04/18/24 04/18/24 08:40 11:00 Temperature 98.4 F Pulse Rate 91 70 Respiratory 18 18 Rate Blood Pressure 143/86 120/79 O2 Sat by Pulse 99 99 Oximetry Chest Pain MDM - MDM This is a 63-year-old male who presents to the emergency department for chest pain. Was pt. sent in by a medical professional or institution? @ -No Did you speak to anyone other than the patient for history? @ -No Did you review nursing and triage notes? @ -Yes, and I agree, it is accurate with regards to the patient's symptoms. Were old charts reviewed? @ -Cardiology consult from 04/03/2024 discussing cardiac cath from January 2024 showing mild in-stent stenosis of the LAD which appears exactly the same compared to November 2019. Differential Diagnosis? @ -Differential Chest Pain: Stable Angina, Unstable Angina, STEMI, NSTEMI Aortic Dissection, Pneumothorax, Musculoskeletal, Esophageal Spasm GERD, Cholecystitis, Pancreatitis, Zoster, this is not meant to be an all-inclusive list. EKG interpreted by me (3pts min.)? @ -EKG interpreted by me demonstrating the following: Sinus rhythm. Ventricular rate 82 bpm, QRS duration 90 ms, QTc 421 ms. X-rays interpreted by me (1pt min.)? @ -Chest x-ray obtained, my interpretation identifies no localized consolidations or infiltrates. CT interpreted by me (1pt min.)? @ -CT scan of the brain obtained. My interpretation identifies no evidence of an acute intracranial hemorrhage. CTA of the chest obtained. My interpretation identifies no evidence of a pulmonary embolus. U/S interpreted by me (1pt. min.)? @ -Not obtained What testing was considered but not performed? (CT, X-rays, U/S, labs)? Why? @ -None What meds were considered but not given? Why? @ -None Did you discuss the management of the patient with other professionals? @ -Yes, Dr. Myrick, who accepts the patient for admission. Did you reconcile home meds? @ -Yes Was smoking cessation discussed for >3mins.? @ -No Was critical care preformed (if so, how long)? @ -No Were there social determinants of health that impacted care today? How? (Homelessness, low income, unemployed, alcoholism, drug addiction, transportation, low edu. Level, literacy, decrease access to med. care, retirement, re hab)? @ -No Was there de-escalation of care discussed even if they declined? (Discuss DNR or withdrawal of care, Hospice)? @ -No What co-morbidities impacted this encounter? (DM, HTN, Smoking, COPD, CAD, Cancer, CVA, Hep., AIDS, mental health diagnosis, sleep apnea, morbid obesity)? @ -CAD, HLD, HTN Was patient admitted / discharged? @ -Admitted. Lab work demonstrates an elevated D-dimer of 1.23 and is otherwise unremarkable. Chest x-ray obtained and found to be unremarkable. CT scan of the brain and CTA of the chest revealed no acute process. Patient continued to complain of severe chest pain and dizziness. He had an unremarkable cardiac catheterization in January and was admitted here at the end of last month for chest pain rule out. Patient states that he is not comfortable going home, especially with the syncopal episodes because he lives alone. He is concerned about becoming injured during one of these events and not having anyone to help him. Patient subsequently admitted to medicine for chest pain and syncope. Serial troponins ordered and consult was placed for cardiology. Neurology consulted as well for further input of the syncopal episodes. Case discussed with ED attending Dr. Garay. Undiagnosed new problem with uncertain prognosis? @ -None Drug Therapy requiring intensive monitoring for toxicity (Heparin, Nitro, Insulin, Cardizem)? @ -None Were any procedures done? @ -None Diagnosis/symptom? @ -Chest pain, syncope Acute, or Chronic, or Acute on Chronic? @ -Acute Uncomplicated (without systemic symptoms) or Complicated (systemic symptoms)? @ -Uncomplicated Side effects of treatment? @ -None Exacerbation, Progression, or Severe Exacerbation] @ -Not applicable Poses a threat to life or bodily function? @ -Yes, if due to ACS it can lead to Disposition Clinical Impression: Chest pain, Syncope Disposition: ADMITTED IP TO THIS HOSP Referrals: None,Stated [REFERRING] - 1-2 days
[2024-04-18] MEDS: MORPHINE SULFATE 4 MG/ML SYRINGE IM STA (09:39)
[2024-04-18 09:42] LABS: ALT 22 U/L (4-49); AST 38 U/L (17-59); African American GFR (CKD) >90 (>60 ml/min/1.73 sqM); Albumin 3.6 g/dL (3.5-5.0); Alkaline Phosphatase 37 U/L (38-126); Anion Gap 4 mmol/L; Blood Urea Nitrogen 12 mg/dL (9-20); Calcium 8.5 mg/dL (8.4-10.2); Carbon Dioxide 28 mmol/L (22-30); Chloride 101 mmol/L (98-107); Glucose 93 mg/dL (74-99); Non-African American GFR(CKD) >90 (>60 ml/min/1.73 sqM); Potassium 4.2 mmol/L (3.5-5.1); Sodium 133 mmol/L (137-145); Total Bilirubin 1.2 mg/dL (0.2-1.3); Total Protein 6.1 g/dL (6.3-8.2)
[2024-04-18 09:51] LABS: Basophils % (A) 0 %; Eosinophils % (A) 1 %; HCT 37.8 % (39.0-53.0); HGB 11.9 gm/dL (13.0-17.5); Lymphocytes # (A) 1.3 k/uL (1.0-4.8); Lymphocytes % (A) 35 %; MCH 32.3 pg (25.0-35.0); MCHC 31.4 g/dL (31.0-37.0); MCV 102.7 fL (80.0-100.0); Macrocytosis Slight; Mean Platelet Volume 9.2; Monocytes # (A) 0.4 k/uL (0-1.0); Monocytes % (A) 9 %; Neutrophils # (A) 1.9 k/uL (1.3-7.7); Neutrophils % (A) 50 %; Platelet Count 143 k/uL (150-450); RBC 3.68 m/uL (4.30-5.90); WBC 3.8 k/uL (3.8-10.6)
[2024-04-18 09:54] LABS: INR 0.9 (<1.2); Partial Thromboplastin Time 22.1 sec (22.0-30.0); Prothrombin Time 9.9 sec (10.0-12.5)
--- NOTE | 2024-04-18 10:30 | XR ---
EXAMINATION TYPE: XR chest 2V DATE OF EXAM: 04/18/2024 10:27 AM COMPARISON: 04/02/2024 CLINICAL INDICATION: Male, 63 years old with history of Chest Pain; [facility] TECHNIQUE: XR chest 2V Frontal and lateral views of the chest. FINDINGS: Lungs/Pleura: There is no evidence of pleural effusion, focal consolidation, or pneumothorax. Pulmonary vascularity: Unremarkable. Heart/mediastinum: Cardiomediastinal silhouette is unremarkable. Musculoskeletal: No acute osseous pathology. Remote right-sided rib injury suggested. Other findings: Surgical clips project over the upper abdomen IMPRESSION: No acute cardiopulmonary disease/process. [facility], , 04/18/2024 10:28 AM
--- NOTE | 2024-04-18 10:53 | CT ---
EXAMINATION TYPE: CT chest angio for PE DATE OF EXAM: 04/18/2024 10:36 AM COMPARISON: Chest radiograph from same day CLINICAL INDICATION: Male, 63 years old with history of VINCENT, elevated d-dimer; VINECNT, elevated d-dimer TECHNIQUE/CONTRAST: CTA scan of the thorax is performed with IV Contrast, patient injected with 100 ml mL of Isovue 370, MIP images are created and reviewed these are created on a separate workstation.. CT DLP: 345.7 mGycm, Automated exposure control for dose reduction was used. FINDINGS: Lungs/Pleura: No evidence of focal consolidation, pleural effusion or pneumothorax. Accessory fissure in the right lower lobe. Paraseptal emphysema changes in lung apices are mild. Airway: Large airways are patent. Heart: Size within normal limits. Mild coronary artery calcifications present. Vasculature: There is no evidence for a filling defect within the pulmonary vasculature to suggest ac randy pulmonary embolism. The pulmonary artery is of normal size. Mediastinum: No gross evidence of adenopathy. Surgical clips around the gastroesophageal junction. Musculoskeletal: No acute osseous abnormalities, intramuscular lipoma in the infraspinatus muscle. Me asuring up tor 23 mm. Soft Tissues/lymph nodes: Unremarkable. Lower neck: No significant findings. Upper Abdomen: Indeterminate left hyperdense renal lesion measuring 39 mm and 50 Hounsfield units. IMPRESSION: 1. No evidence of pulmonary embolism. 2. Indeterminate left renal lesion further evaluation of renal mass protocol MRI recommended to exclu de mass 3. Minimal COPD. Follow up recommendations for incidental pulmonary nodules, if there are any, are per [employer]isch[employer]?s [employer] or [employer]. https://radiopaedia.org/articles/vsiofphbbk-miacqhk-fmipovudq-soivsi-[email or web address]-[email or web address]?lang=us [facility], , 04/18/2024 10:50 AM
[2024-04-18] MEDS: KETOROLAC 15 MG/ML 1 ML VIAL IVP STA (10:58)
--- NOTE | 2024-04-18 11:07 | CT ---
EXAMINATION TYPE: CT brain wo con DATE OF EXAM: 04/18/2024 10:36 AM COMPARISON: 01/13/2024. CLINICAL INDICATION: Male, 63 years old with history of Headache, syncope, [facility] TECHNIQUE: Brain: Axial CT images of the brain were obtained with coronal and sagittal reformats created and rev iewed. Contrast used: None. Oral contrast used: None. CT DLP: 1094 mGycm, Automated exposure control for dose reduction was used. FINDINGS: Brain: Extra-axial spaces: No abnormal extra-axial fluid collections. Ventricular system: Within normal limits Cerebral parenchyma: No acute intraparenchymal hemorrhage or mass effect. The ventura-white junction is well differentiated. Cerebellum: Unremarkable. Mass effect: No evidence of midline shift. Intracranial vasculature: Atherosclerotic calcifications of the intracranial vessels. Soft tissues: Normal. Calvarium/osseous structures: No depressed skull fracture. Deformity to the right nasal bone. Paranasal sinuses and mastoid air cells: Mild scattered paranasal sinus disease. Visualized orbits: Orbital contents are intact. IMPRESSION: 1. No acute intracranial process. 2. Stable right nasal bone deformity.. [facility], , 04/18/2024 11:04 AM
[2024-04-18] MEDS: HYDROmorphone 1 MG/ML 1 ML SYRINGE IVP STA (11:42)
[2024-04-18] MEDS ORDERED: NALOXONE 0.4 MG/ML 1 ML VIAL IV PRN (11:50)
[2024-04-18] MEDS ORDERED: KETOROLAC 15 MG/ML 1 ML VIAL IVP PRN (11:50)
[2024-04-18] MEDS ORDERED: ACETAMINOPHEN TAB 325 MG TAB PO PRN (11:50)
[2024-04-18] MEDS ORDERED: HYDROmorphone 1 MG/ML 1 ML SYRINGE IVP PRN (11:50)
[2024-04-18] MEDS ORDERED: ONDANSETRON 4 MG/2 ML VIAL IVP PRN (11:50)
--- NOTE | 2024-04-18 16:04 | P.HPIM ---
History of Present Illness H&P Date: 04/18/24 This is a pleasant 63-year-old male who presented to the emergency department with chest pain sees Dr. Moody in the outpatient setting with a significant past medical history of coronary artery disease, angina, hyperlipidemia, previous myocardial infarction, osteoarthritis, 5 previous cardiac stents, bipolar/depression/PTSD/schizophrenia, continued ongoing nicotine dependence, occasional alcohol use and denies any other illicit drug use. Patient had previous history of cocaine abuse but it has been 5 years since. Patient reporting chest pain that has been ongoing since yesterday and reports he passed out while at home. Patient also feeling shortness of breath during these episodes of chest pain. Labs reviewed with a white count of 3.8, hemoglobin 11.9, platelets 143, D-dimer mildly elevated at 1.23, sodium 133, potassium 4.2, BUN 12 with a creatinine of 0.69, magnesium 2.0, troponins x 2 have been negative. EKG shows atrial fibrillation with a heart rate of 82. Chest x-ray shows no acute cardiopulmonary process. Patient did have CTA due to the elevated D-dimer which reports no evidence of pulmonary embolism with an indeterminate left renal lesion for further evaluation outpatient, and minimal COPD. A brain CT was also performed due to the fall that was unwitnessed showin g no acute cranial process and stable right nasal bone deformity. Patient continues to report persistent intermittent chest pain and was admitted for observation with cardiology evaluation. Patient's primary care provider is Olga Jaramillo. REVIEW OF SYSTEMS: CONSTITUTIONAL: No fever, no malaise, no fatigue. HEENT: No recent visual problems or hearing problems. Denied any sore throat. CARDIOVASCULAR: Reports of intermittent chest pain, orthopnea, PND, no palpitations, reports 2 episodes of passing out, unwitnessed at home PULMONARY: No shortness of breath, no cough, no hemoptysis. GASTROINTESTINAL: No diarrhea, no nausea, no vomiting, no abdominal pain. NEUROLOGICAL: No headaches, no weakness, no numbness. HEMATOLOGICAL: Denies any bleeding or petechiae. GENITOURINARY: Denies any burning micturition, frequency, or urgency. MUSCULOSKELETAL/RHEUMATOLOGICAL: Denies any joint pain, swelling, or any muscle pain. ENDOCRINE: Denies any polyuria or polydipsia. The rest of the 14-point review of systems is negative. PHYSICAL EXAMINATION: GENERAL: The patient is alert and oriented x3, not in any acute distress. Well developed, well nourished. Elderly appearing HEENT: Pupils are round and equally reacting to light. EOMI. No scleral icterus. No conjunctival pallor. Normocephalic, atraumatic. No pharyngeal erythema. No thyromegaly. CARDIOVASCULAR: S1 and S2 muffled PULMONARY: Chest is clear to auscultation, no wheezing or crackles. ABDOMEN: Soft, thin, nontender, nondistended, normoactive bowel sounds. No palpable organomegaly. MUSCULOSKELETAL: No joint swelling or deformity. EXTREMITIES: No cyanosis, clubbing, or pedal edema. NEUROLOGICAL: Gross neurological examination did not reveal any focal deficits. SKIN: No rashes. Assessment: Chest pain, rule out ACS, troponins x 2 have been negative Syncopal episode with unwitnessed falls x 2 at home, neurology consulted and pending History of coronary artery disease with previous stenting, cardiac stents x 5 History of bipolar/depression/PTSD/schizophrenia, follows with [facility] outpatient Continued ongoing nicotine abuse Occasional alcohol use Past history of cocaine abuse, has not been using in 5 years History of osteoarthritis GI prophylaxis DVT prophylaxis Full code Plan: Patient admitted under for chest pain with cardiology to evaluate observation Continue telemetry monitoring Home medications reviewed and resumed as appropriate Neurology also consulted and pending as patient reportedly had 2 episodes of passing out while at home unwitnessed Follow-up on repeat labs Will await cardiology and neurology clearance possibly in the next 24 hours The impression and plan of care has been dictated by Tatiana Dale, Nurse Practitioner as directed. Dr. Mario MD I have performed a history and examination and MDM of this patient, discussed the same with the dictator, and agree with the dictator's assessment and plan as written ,documented as a scribe. Based on total visit time, I have performed more than 50% of the visit. Past Medical History Past Medical History: Coronary Artery Disease (CAD), Chest Pain / Angina, Hyperlipidemia, Myocardial Infarction ([place]), Osteoarthritis (OA) Additional Past Medical History / Comment(s): arthritis in back and bilateral knees,hx hiatal hernia Last Myocardial Infarction Date:: 2004 History of Any Multi-Drug Resistant Organisms: Other MDRO Past Surgical History: Bowel Resection, Heart Catheterization With Stent Additional Past Surgical History / Comment(s): Cardiac stents x 5, bowel surgery for pinpoint hole in bowel, L knee arthroscopy, colonoscopy/benign polypectomies,hiatal hernia repair Past Anesthesia/Blood Transfusion Reactions: No Reported Reaction Date of Last Stent Placement:: 2013 Past Psychological History: Bipolar, Depression, PTSD, Schizophrenia Smoking Status: Current every day smoker Past Alcohol Use History: Occasional Past Drug Use History: None Reported - Past Family History Father Family Medical History: Respiratory Disorder Additional Family Medical History / Comment(s): Father at age 64 from Black lung disease Mother Family Medical History: Hypertension, Myocardial Infarction ([place]) Additional Family Medical History / Comment(s): Mother of an [place] at 78yrs old. Brother(s) Family Medical History: Myocardial Infarction ([place]) Additional Family Medical History / Comment(s): Patient has 10 brothers and 2 from myocardial infarction and had history of alcoholism. Sister(s) Family Medical History: Hypertension, Myocardial Infarction ([place]) Additional Family Medical History / Comment(s): He has 7 sisters that are alive with no major medical problems. He has one son that has and one daughter that is alive and okay. Medications and Allergies Home Medications Medication Instructions Recorded Confirmed Type Aspirin 81 mg PO DAILY #30 tab 12/18/22 04/18/24 Rx Atorvastatin [Lipitor] 80 mg PO HS 30 Days #30 tab 01/14/24 04/18/24 Rx HYDROcodone/APAP 10-325MG [[place] 1 tab PO QID PRN 04/02/24 04/18/24 History 10-325] QUEtiapine FUMARATE [SEROquel] 200 mg PO HS 04/02/24 04/18/24 History QUEtiapine [SEROquel] 50 mg PO BID 04/02/24 04/18/24 History Venlafaxine HCl [Effexor XR] 75 mg PO DAILY 04/02/24 04/18/24 History Allergies Allergy/AdvReac Type Severity Reaction Status Date / Time blueberry Allergy Rash/Hives Verified 04/18/24 11:27 nitroglycerin Allergy Swelling Verified 04/18/24 11:27 Physical Exam Vitals: Vital Signs Temp Pulse Resp BP Pulse Ox 04/18/24 13:49 72 18 123/82 97 04/18/24 11:00 70 18 120/79 99 04/18/24 08:40 98.4 F 91 18 143/86 99 Intake and Output 04/17/24 04/18/24 04/18/24 22:59 06:59 14:59 Other: Weight 73.482 kg Results CBC & Chem 7: 04/18/24 09:12 04/18/24 09:12 Labs: Abnormal Lab Results - Last 24 Hours (Table) 04/18/24 04/18/24 04/18/24 Range/Units 09:12 09:12 09:12 RBC 3.68 L (4.30-5.90) m/uL Hgb 11.9 L (13.0-17.5) gm/dL Hct 37.8 L (39.0-53.0) % MCV 102.7 H (80.0-100.0) fL Plt Count 143 L (150-450) k/uL PT 9.9 L (10.0-12.5) sec D-Dimer 1.23 H (<0.60) mg/L FEU Sodium 133 L (137-145) mmol/L Alkaline Phosphatase 37 L (38-126) U/L Total Protein 6.1 L (6.3-8.2) g/dL
[2024-04-18] MEDS: HYDROcodone/APAP 10-325MG 1 EACH TAB PO PRN (17:15)
[2024-04-18] MEDS ORDERED: FLUTICASONE NASAL 50MCG/SPRAY 16GM BTL EA NOSTRIL PRN (17:44)
[2024-04-18] MEDS: QUEtiapine 50 MG TAB PO SCH (20:34)
[2024-04-18] MEDS: ATORVASTATIN 80 MG TAB PO SCH (20:34)
[2024-04-18] MEDS: QUEtiapine 200 MG TAB PO SCH (20:35)
[2024-04-18] MEDS: LORATADINE 10 MG TAB PO PRN (20:36)
[2024-04-18] MEDS: HYDROcodone/APAP 5-325MG 1 EACH TAB PO PRN (22:10)
[2024-04-19 08:04] VITALS: BP 120/81; PULSE 70; RESP 16; TEMP 98
--- NOTE | 2024-04-19 10:17 | P.CRDCN ---
History of Present Illness History of present illness: This is a pleasant 63-year-old woman patient who has been following with a tmd teacher assistant out of [facility] but states his tmd teacher assistant recently passed and he would like to follow-up here with past medical history of syncope, CAD with prior PCI of the LAD, hypertension, hyperlipidemia, nicotine dependence, alcohol abuse, medication noncompliance, and frequent hospital admissions. Patient has had a number of recent hospitalizations. Almost all of these have been for chest pain and lightheadedness. He was recently seen in January as well as March with chest pain and lightheadedness. These will usually occur sporadically. No obvious events that could bring this about. He had another episode and therefore came to the emergency department. Blood pressure stable and no significant arrhythmias noted on monitor. He had recent heart catheterization which showed stable CAD. Currently today he says he feels excellent. Diagnostics -Prior stress test: Done here in December 2023 perfusion defect involving the inferior wall the larger and more pronounced on stress imaging, further clinical and EKG correlation recommended to differentiate between extensive diaphragmatic attenuation artifact versus old inferior wall infarct, in which case, some subtle sydni-infarct ischemia would be difficult to exclude -Echocardiogram: December 2023 normal LV systolic function with mild MR and mild to moderate TR -Cardiac catheterization: Done by Dr. Moody in January 2024 showed mild in-stent restenosis of the mid LAD which appears to be exactly the same compared to November 2019 Review Of Systems: At the time of my exam: CONSTITUTIONAL: Denies fever or chills. HEENT: Denies blurred vision, vision changes. CARDIOVASCULAR: +chest pain. Denies orthopnea. Denies PND. Denies palpitations, dizziness, or syncope. RESPIRATORY: Denies shortness of breath, wheezing, or cough. Denies hemoptysis. GASTROINTESTINAL: Denies abdominal pain. Denies nausea or vomiting. Denies bleeding. HEMATOLOGIC: Denies bleeding disorders. GENITOURINARY: Denies hematuria. SKIN: Complains of puritis. Denies rash. PHYSICAL EXAMINATION: This is a 63-year-old male in no apparent distress at the time of my examination. VITAL SIGNS: Reviewed. HEENT: Head is atraumatic, normocephalic. Pupils are equal, round. Sclerae anicteric. Conjunctivae are clear. Mucous membranes of the mouth are moist. Neck is supple. There is no elevated jugular venous pressure. No carotid bruit is heard. CHEST EXAMINATION: Clear to auscultation bilaterally. No wheezes rales or rhonchi. Respirations even and nonlabored. HEART EXAMINATION: Heart regular, positive S1 and S2. No S3. No S4. No clicks, rubs or murmurs. ABDOMEN: Soft, nontender. Bowel sounds are heard. No organomegaly noted. EXTREMITIES: 2+ peripheral pulses with no evidence of peripheral edema and no calf tenderness noted. NEUROLOGIC EXAMINATION: Patient is awake, alert and oriented x3. Assessment: 1. Atypical chest pain, does not appear cardiac in nature. Less likely vasospasm 2. CAD with prior stenting of the LAD 3. Tobacco dependence 4. Hyperlipidemia 5. Near syncopal episodes PLAN: Patient continue to have symptoms of chest pain intermittently with some associated lightheadedness. We discussed ruling out arrhythmia and wearing a heart monitor however patient states he does not want to wear one at this time. Recent heart catheterization stable and no major obstructive disease and symptoms similar to before. Trial of as needed nitro to take at home if he does have recurrent chest pain episodes. Otherwise outpatient follow-up with likely outpatient monitor. Patient cleared from cardiology for discharge. Past Medical History Past Medical History: Coronary Artery Disease (CAD), Chest Pain / Angina, Hyperlipidemia, Myocardial Infarction (MD), Osteoarthritis (OA) Additional Past Medical History / Comment(s): arthritis in back and bilateral knees,hx hiatal hernia Last Myocardial Infarction Date:: 2004 History of Any Multi-Drug Resistant Organisms: None Reported, Other MDRO Past Surgical History: Bowel Resection, Heart Catheterization With Stent Additional Past Surgical History / Comment(s): Cardiac stents x 5, bowel surgery for pinpoint hole in bowel, L knee arthroscopy, colonoscopy/benign polypectomies,hiatal hernia repair Past Anesthesia/Blood Transfusion Reactions: No Reported Reaction Date of Last Stent Placement:: 2013 Past Psychological History: Bipolar, Depression, PTSD, Schizophrenia Additional Psychological History / Comment(s): He states he goes to [facility]. Smoking Status: Current every day smoker Past Alcohol Use History: Occasional Additional Past Alcohol Use History / Comment(s): Pt states he started smoking in 1994 a pack will last him a month. states quit drinking etoh and using street drugs years ago. Past Drug Use History: None Reported Additional Drug Use History / Comment(s): Pt states that he used MJ. Pt states that he had a previous history of cocaine abude, but it has been 5 years since the last use - Past Family History Father Family Medical History: Respiratory Disorder Additional Family Medical History / Comment(s): Father at age 64 from Black lung disease Mother Family Medical History: Hypertension, Myocardial Infarction (MD) Additional Family Medical History / Comment(s): Mother of an MD at 78yrs old. Brother(s) Family Medical History: Myocardial Infarction (MD) Additional Family Medical History / Comment(s): Patient has 10 brothers and 2 from myocardial infarction and had history of alcoholism. Sister(s) Family Medical History: Hypertension, Myocardial Infarction (MD) Additional Family Medical History / Comment(s): He has 7 sisters that are alive with no major medical problems. He has one son that has and one daughter that is alive and okay. Medications and Allergies Home Medications Medication Instructions Recorded Confirmed Type Aspirin 81 mg PO DAILY #30 tab 12/18/22 04/18/24 Rx Atorvastatin [Lipitor] 80 mg PO HS 30 Days #30 tab 01/14/24 04/18/24 Rx HYDROcodone/APAP 10-325MG [[place] 1 tab PO QID PRN 04/02/24 04/18/24 History 10-325] QUEtiapine FUMARATE [SEROquel] 200 mg PO HS 04/02/24 04/18/24 History QUEtiapine [SEROquel] 50 mg PO BID 04/02/24 04/18/24 History Venlafaxine HCl [Effexor XR] 75 mg PO DAILY 04/02/24 04/18/24 History Allergies Allergy/AdvReac Type Severity Reaction Status Date / Time blueberry Allergy Rash/Hives Verified 04/18/24 11:27 nitroglycerin Allergy Swelling Verified 04/18/24 11:27 Physical Exam Vitals: Vital Signs Temp Pulse Pulse Resp BP BP Pulse Ox 04/19/24 07:00 98.0 F 70 16 120/81 96 04/19/24 02:33 97.7 F 68 15 115/78 99 04/18/24 19:00 98.4 F 71 16 124/81 98 04/18/24 16:29 98.1 F 82 16 138/89 98 04/18/24 15:42 98.3 F 70 17 123/97 91 L 04/18/24 14:30 67 18 112/73 95 04/18/24 13:49 72 18 123/82 97 04/18/24 11:00 70 18 120/79 99 Intake and Output 04/18/24 04/19/24 04/19/24 22:59 06:59 14:59 Other: Voiding Method Toilet Toilet # Voids 1 1 Weight 73.482 kg Results 04/18/24 09:12 04/18/24 09:12 Cardiac Enzymes 04/18/24 04/18/24 Range/Units 14:53 18:52 Troponin I <0.012 <0.012 (0.000-0.034) ng/mL Current Medications Generic Name Dose Route Start Last Admin Trade Name Freq PRN Reason Stop Dose Admin Acetaminophen 650 mg 04/18/24 11:50 Acetaminophen Tab 325 Mg Tab PO Q6HR PRN Mild Pain or Fever > 100.5 Hydrocodone Bitart/Acetaminophen 1 each 04/18/24 11:50 04/19/24 06:09 Hydrocodone/Apap 5-325mg 1 Each Tab PO 1 each Q4HR PRN Administration Moderate Pain (Scale 4 to 6) Hydrocodone Bitart/Acetaminophen 1 each 04/18/24 11:51 04/18/24 17:15 Hydrocodone/Apap 10-325mg 1 Each Tab PO 1 each QID PRN Administration Severe Pain (Scale 7 to 10) Aspirin 81 mg 04/19/24 09:00 Aspirin 81 Mg PO DAILY MORRIS Atorvastatin Calcium 80 mg 04/18/24 21:00 04/18/24 20:34 Atorvastatin 80 Mg Tab PO 80 mg HS MORRIS Administration Fluticasone Propionate 2 spray 04/18/24 17:44 Fluticasone Nasal 50mcg/[place] 16gm Btl EA NOSTRIL DAILY PRN Allergy Symptoms Hydromorphone HCl 1 mg 04/18/24 11:50 Hydromorphone 1 Mg/Ml 1 Ml Syringe IVP Q3HR PRN Severe Pain (Scale 7 to 10) Ketorolac Tromethamine 15 mg 04/18/24 11:50 Ketorolac 15 Mg/Ml 1 Ml Vial IVP 04/21/24 11:51 Q6HR PRN Moderate Pain (Scale 4 to 6) Loratadine 10 mg 04/18/24 17:44 04/18/24 20:36 Loratadine 10 Mg Tab PO 05/18/24 17:43 10 mg DAILY PRN Administration Allergy Symptoms Naloxone HCl 0.2 mg 04/18/24 11:50 Naloxone 0.4 Mg/Ml 1 Ml Vial IV Q2M PRN Opioid Reversal Ondansetron HCl 4 mg 04/18/24 11:50 Ondansetron 4 Mg/2 Ml Vial IVP Q8HR PRN Nausea And Vomiting Pantoprazole Sodium 40 mg 04/19/24 09:00 Pantoprazole 40 Mg/10 Ml Vial IV DAILY MORRIS Quetiapine Fumarate 50 mg 04/18/24 21:00 04/18/24 20:34 Quetiapine 50 Mg Tab PO 50 mg BID MORRIS Administration Quetiapine Fumarate 200 mg 04/18/24 21:00 04/18/24 20:35 Quetiapine 200 Mg Tab PO Not Given HS MORRIS Venlafaxine HCl 75 mg 04/19/24 09:00 Venlafaxine Hcl Er 75 Mg Cap PO DAILY MORRIS Intake and Output 04/18/24 04/19/24 04/19/24 22:59 06:59 14:59 Other: Voiding Method Toilet Toilet # Voids 1 1 Weight 73.482 kg 04/18/24 09:12 04/18/24 09:12
[2024-04-19] MEDS: VENLAFAXINE HCL ER 75 MG CAP PO SCH (11:24)
[2024-04-19] MEDS: ASPIRIN 81 MG PO SCH (11:24)
[2024-04-19] MEDS: PANTOPRAZOLE 40 MG/10 ML VIAL IV SCH (11:32)
--- NOTE | 2024-04-19 14:33 | P.CNNES ---
History of Present Illness Consult date: 04/19/24 Requesting physician: Yajaira Angeles Reason for Consult: syncope, headache History of Present Illness: This is a 63-year-old gentleman who presents the emergency department because of syncopal episode. Patient stated that yesterday he had chest pain then he passed out. He stated it happened twice. Then later he stated maybe he had some "head fluttering" then passed out. Denies any urinary incontinence, bowel incontinence or tongue bite. Denies any history of seizures. He stated the episode lasted maybe 2 to 3 minutes. He stated that episodes were not witnessed since he resides by himself. Denies any history of stroke. He does have a history of coronary artery disease status post stent and he stated that he had 4 stents. He feels back to baseline. Denied any headache, any focal weakness numbness visual disturbance. Some of the workup during this hospital visit consisted of: Troponins are unremarkable Sodium is 133, BUN/creatinine are within normal limits Glucose, calcium, liver function is within normal limits CT of the head is reported as no acute intracranial process. Stable right nasal bone deformity. EKG is reported as normal sinus rhythm. Left axis deviation. Review of Systems As per HPI. Past Medical History Past Medical History: Coronary Artery Disease (CAD), Chest Pain / Angina, Hyperlipidemia, Myocardial Infarction (CO), Osteoarthritis (OA) Additional Past Medical History / Comment(s): arthritis in back and bilateral knees,hx hiatal hernia Last Myocardial Infarction Date:: 2004 History of Any Multi-Drug Resistant Organisms: None Reported, Other MDRO Past Surgical History: Bowel Resection, Heart Catheterization With Stent Additional Past Surgical History / Comment(s): Cardiac stents x 5, bowel surgery for pinpoint hole in bowel, L knee arthroscopy, colonoscopy/benign polypecto mies,hiatal hernia repair Past Anesthesia/Blood Transfusion Reactions: No Reported Reaction Date of Last Stent Placement:: 2013 Past Psychological History: Bipolar, Depression, PTSD, Schizophrenia Additional Psychological History / Comment(s): He states he goes to [facility]. Smoking Status: Current every day smoker Past Alcohol Use History: Occasional Additional Past Alcohol Use History / Comment(s): Pt states he started smoking in 1994 a pack will last him a month. states quit drinking etoh and using street drugs years ago. Past Drug Use History: None Reported Additional Drug Use History / Comment(s): Pt states that he used MJ. Pt states that he had a previous history of cocaine abude, but it has been 5 years since the last use - Past Family History Father Family Medical History: Respiratory Disorder Additional Family Medical History / Comment(s): Father at age 64 from Black lung disease Mother Family Medical History: Hypertension, Myocardial Infarction (CO) Additional Family Medical History / Comment(s): Mother of an CO at 78yrs old. Brother(s) Family Medical History: Myocardial Infarction (CO) Additional Family Medical History / Comment(s): Patient has 10 brothers and 2 from myocardial infarction and had history of alcoholism. Sister(s) Family Medical History: Hypertension, Myocardial Infarction (CO) Additional Family Medical History / Comment(s): He has 7 sisters that are alive with no major medical problems. He has one son that has and one daughter that is alive and okay. Medications and Allergies Home Medications Medication Instructions Recorded Confirmed Type Aspirin 81 mg PO DAILY #30 tab 12/18/22 04/18/24 Rx Atorvastatin [Lipitor] 80 mg PO HS 30 Days #30 tab 01/14/24 04/18/24 Rx HYDROcodone/APAP 10-325MG [[place] 1 tab PO QID PRN 04/02/24 04/18/24 History 10-325] QUEtiapine FUMARATE [SEROquel] 200 mg PO HS 04/02/24 04/18/24 History QUEtiapine [SEROquel] 50 mg PO BID 04/02/24 04/18/24 History Venlafaxine HCl [Effexor XR] 75 mg PO DAILY 04/02/24 04/18/24 History Allergies Allergy/AdvReac Type Severity Reaction Status Date / Time blueberry Allergy Rash/Hives Verified 04/18/24 11:27 nitroglycerin Allergy Swelling Verified 04/18/24 11:27 Physical Examination - Vital Signs Vital Signs: Vital Signs Temp Pulse Pulse Resp BP BP Pulse Ox 04/19/24 07:00 98.0 F 70 16 120/81 96 04/19/24 02:33 97.7 F 68 15 115/78 99 04/18/24 19:00 98.4 F 71 16 124/81 98 04/18/24 16:29 98.1 F 82 16 138/89 98 04/18/24 15:42 98.3 F 70 17 123/97 91 L 04/18/24 14:30 67 18 112/73 95 Intake and Output 04/18/24 04/19/24 04/19/24 22:59 06:59 14:59 Other: Voiding Method Toilet Toilet Toilet # Voids 1 1 Weight 73.482 kg GENERAL: The patient is lying in bed and is not in acute distress. NEUROLOGICAL: Higher mental function: The patient is awake, alert, oriented to self, place and time. Patient is following commands. No aphasia and no neglect. Cranial nerves: The pupils are round, equal and reactive to light and accommodation. Visual chou are full to confrontation throughout. Extraocular movement is intact no nystagmus is noted. Facial sensation is normal to touch throughout. The facial strength is normal throughout. Hearing is normal bilaterally to hand rub. Tongue is midline and moved [id number] without any difficulty. No dysarthria is noted. Shoulder shrug is normal bilaterally. Motor: The strength is 5 over 5 throughout. Normal tone and bulk. Cerebellum: Normal finger to nose bilaterally. Sensation: Sensation is normal to touch throughout. Reflexes (right/left): 2+ Plantars are downgoing bilaterally. Results - Laboratory Findings CBC and BMP: 04/18/24 09:12 04/18/24 09:12 Abnormal Lab Findings: Abnormal Labs 04/18/24 04/18/24 04/18/24 09:12 09:12 09:12 RBC 3.68 L Hgb 11.9 L Hct 37.8 L MCV 102.7 H Plt Count 143 L PT 9.9 L D-Dimer 1.23 H Sodium 133 L Alkaline Phosphatase 37 L Total Protein 6.1 L Assessment and Plan Assessment: This is a 63-year-old gentleman who presents because of syncopal spells. He stated that he had chest pain and then passed out twice and it lasted between 2 to 3 minutes. Upon further questioning he stated that he had maybe "head flutter" then passed out. He denies any history of seizures, strokes. Syncopal episode seems more cardiac in etiology especially with the chest pain. History of coronary artery disease status post stent Tobacco use Plan: I ordered a routine EEG. will assess if there is any active seizure or any discharges. I highly doubt this is seizure Cardiology is on board and they recommended an event monitor but the patient refused Per [place] DMV because of syncopal episode even though it is not seizure, to avoid driving for 6 months until the last event, avoid heights, avoid swimming unassisted or using heavy machinery. Plan discussed with the patient and his nurse. Thank you for the consultation Time with Patient: Greater than 30
--- NOTE | 2024-04-19 20:54 | EEG ---
ELECTROENCEPHALOGRAM REPORT CLINICAL HISTORY: This is a 63-year-old gentleman with a syncopal spell at home. The video EEG is obtained to evaluate for seizure and epileptiform discharges. RELEVANT MEDICATIONS: 1. Seroquel. 2. Effexor. EEG TYPE: This is a routine 21-channel EEG with video using the 10/20 electrode placement system. DESCRIPTION: Wakefulness is only obtained. During awake state, the posterior-dominant rhythm consists of [id number] voltage of 10.5 to 11 hertz activity that is well modulated and well sustained. There is no physiological stage 2 sleep architecture. There is no focal slowing. Interictal and ictal is none. ACTIVATION PROCEDURE: Photic stimulation did not evoke a posterior driving response. There is no abnormality during the photic stimulation. Hyperventilation is not performed. CLINICAL INTERPRETATION: This is a normal routine EEG during awake state. There is no focal slowing, epileptiform discharge, or seizure on the EEG. A normal routine EEG does not rule out underlying epilepsy. Clinical correlation is recommended. MMNAKIA / JUANN: [id number] /
[2024-04-20] MEDS ORDERED: PANTOPRAZOLE 40 MG TABLET PO SCH (07:30)
--- NOTE | 2024-04-22 13:27 | P.DS ---
Providers Date of admission: 04/18/24 14:13 Expected date of discharge: 04/19/24 Attending physician: Noe Myrick MD Consults: 04/18/24 11:50 Consult Physician Urgent Consulting Provider: Gildardo Rodriguez Consult Reason/Comments: Syncope, headaches Do you want consulting provider notified?: Yes Consult Physician Urgent Consulting Provider: Frandy Marx Consult Reason/Comments: Chest pain, syncope Do you want consulting provider notified?: Yes Primary care physician: Physician Nonstaff Hospital Course: Final diagnosis Chest pain, ruled out ACS, troponins x 2 have been negative Syncopal episode with unwitnessed falls x 2 at home, neurology following and EEG done, ruled out seizure History of coronary artery disease with previous stenting, cardiac stents x 5 History of bipolar/depression/PTSD/schizophrenia, follows with [facility] outpatient Continued ongoing nicotine abuse Occasional alcohol use Past history of cocaine abuse, has not been using in 5 years History of osteoarthritis GI prophylaxis DVT prophylaxis Full code Discharge disposition Patient is being discharged in a stable condition with guarded prognosis to home. Patient will follow-up with Dr. Greg Houser to establish in the outpatient setting upon discharge. Patient is to continue with current medications and outpatient follow-up with cardiology as scheduled. Cardiology recommending an event monitor on discharge although patient is refusing at this time. Total time taken is greater than 35 minutes. Hospital course This is a 63-year-old male who was recently admitted with chest pain, ACS ruled out with cardiology following. Neurology was also consulted as patient had multiple episodes of syncope or presyncope with unwitnessed falls at home and did undergo EEG which was negative, seizures ruled out. Most likely vasospasm per cardiology with ACS ruled out. Patient with concerns of possible arrhythmia recommending an event monitor on discharge although patient is refusing and wou ld like to leave. Patient has been instructed to follow-up and establish with a primary care provider as well as cardiology outpatient. 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 Patient denies any chest pain or shortness of breath. Please refer to other consultation notes for further HPI. Currently no reports of chest pain, shortness of breath, or palpitations. Patient is afebrile. No reports of nausea or vomiting and patient is tolerating diet. Patient will be discharged home today. High risk for readmissions given significant comorbidities, alcohol use and noncompliance with follow-up. Patient was provided resources for primary care provider to establish with. Physical exam: Gen: This is a 63-year-old male who is awake, alert and oriented x 3, thin built, elderly appearing HEENT: Head is atraumatic, normocephalic. Pupils equal, round. Sclerae is anicteric. NECK: Supple. No JVD. No lymphadenopathy. No thyromegaly. LUNGS: Clear to auscultation. No wheezes or rhonchi. No intercostal retractions. HEART: Regular rate and rhythm. No murmur. ABDOMEN: Soft. Bowel sounds are present. No masses. No tenderness. EXTREMITIES: No pedal edema. No calf tenderness. NEUROLOGICAL: Patient is awake, alert and oriented x3. Cranial nerves 2 through 12 are grossly intact. Please refer to medication reconciliation sheet for a list of medications. The impression and plan of care has been dictated by Tatiana Dale, Nurse Practitioner as directed. Dr. Mario MD I have performed a history and examination and MDM of this patient, discussed the same with the dictator, and agree with the dictator's assessment and plan as written ,documented as a scribe. Based on total visit time, I have performed more than 50% of the visit. Patient Condition at Discharge: Fair Plan - Discharge Summary Discharge Rx Participant: Yes New Discharge Prescriptions: Continue Aspirin 81 mg PO DAILY #30 tab QUEtiapine FUMARATE [SEROquel] 200 mg PO HS Atorvastatin [Lipitor] 80 mg PO HS 30 Days #30 tab Venlafaxine HCl [Effexor XR] 75 mg PO DAILY QUEtiapine [SEROquel] 50 mg PO BID HYDROcodone/APAP 10-325MG [[place] 10-325] 1 tab PO QID PRN PRN Reason: Pain Discharge Medication List Aspirin 81 mg PO DAILY #30 tab 12/18/22 [Rx] Atorvastatin [Lipitor] 80 mg PO HS 30 Days #30 tab 01/14/24 [Rx] HYDROcodone/APAP 10-325MG [[place] 10-325] 1 tab PO QID PRN 04/02/24 [History] QUEtiapine FUMARATE [SEROquel] 200 mg PO HS 04/02/24 [History] QUEtiapine [SEROquel] 50 mg PO BID 04/02/24 [History] Venlafaxine HCl [Effexor XR] 75 mg PO DAILY 04/02/24 [History] Follow up Appointment(s)/Referral(s): Sherine Graves MD [STAFF PHYSICIAN] - 1 Week Frandy Marx DO [STAFF PHYSICIAN] - 1 Week Discharge/Stand Alone Forms: AA Meetings [facility], Who Do I Call?, Community Resources, Outpatient Counseling, In Substance Abuse Facilities, Area PCPs Discharge Disposition: HOME SELF-CARE
== END 2024-04-19 12:22 | disposition home or self-care (01) ==
LOC: EC 08:36 → 6NMEDSUR 14:13
PROVIDERS: ADMIT Internal Medicine; ATTEND Internal Medicine
DX: R07.89 Other chest pain (principal); R55 Syncope and collapse; I25.10 Atherosclerotic heart disease of native coronary artery without angina pectoris; E78.5 Hyperlipidemia, unspecified; F31.9 Bipolar disorder, unspecified; I10 Essential (primary) hypertension; F20.9 Schizophrenia, unspecified; F43.10 Post-traumatic stress disorder, unspecified; M47.9 Spondylosis, unspecified; M17.0 Bilateral primary osteoarthritis of knee; I25.2 Old myocardial infarction; F17.200 Nicotine dependence, unspecified, uncomplicated; Z95.5 Presence of coronary angioplasty implant and graft; Z79.82 Long term (current) use of aspirin; Z79.899 Other long term (current) drug therapy
CPT/HCPCS: 96374; 96375; 99285; 36415; 95816; 93005; 85379; 80053; 83735; 84484; 85025; 85610; 85730; 71046; 70450; 71275; G0378 ×2; J2270; J1171; J1885; Q9967

== ENCOUNTER 2024-06-15 07:05 | Observation (INO) | payer MEDICARE, OTHER ==
[2024-06-15 07:54] LABS: Basophils # (A) 0.03 10*3/uL (0.00-0.10); Basophils % (A) 0.7 %; Eosinophils # (A) 0.05 10*3/uL (0.04-0.35); Eosinophils % (A) 1.2 %; HGB 12.7 g/dL (13.0-17.0); Lymphocytes # (A) 1.97 10*3/uL (0.90-5.00); Lymphocytes % (A) 45.4 %; MCH 32.6 pg (27.0-32.0); MCHC 34.3 g/dL (32.0-37.0); MCV 94.9 fL (80.0-97.0); Mean Platelet Volume 10.5 fL (9.5-12.2); Monocytes # (A) 0.45 10*3/uL (0.20-1.00); Monocytes % (A) 10.4 %; Neutrophils # (A) 1.83 10*3/uL (1.80-7.70); Neutrophils % (A) 42.1 %; Platelet Count 186 10*3/uL (140-440); RDW 14.6 % (11.5-14.5); WBC 4.34 10*3/uL (4.50-10.00)
[2024-06-15] MEDS: MORPHINE SULFATE 4 MG/ML SYRINGE IVP STA (07:59)
[2024-06-15] MEDS: diphenhydrAMINE 50 MG/ML 1 ML VIAL IVP STA (08:00)
[2024-06-15 08:02] LABS: ALT 21 U/L (4-49); AST 31 U/L (17-59); African American GFR (CKD) >90 (>60 ml/min/1.73 sqM); Alkaline Phosphatase 48 U/L (38-126); Anion Gap 7 mmol/L; Blood Urea Nitrogen 15 mg/dL (9-20); Calcium 9.4 mg/dL (8.4-10.2); Carbon Dioxide 26 mmol/L (22-30); Chloride 107 mmol/L (98-107); Glucose 96 mg/dL (74-99); Magnesium 1.8 mg/dL (1.6-2.3); Non-African American GFR(CKD) >90 (>60 ml/min/1.73 sqM); Potassium 4.7 mmol/L (3.5-5.1); Sodium 140 mmol/L (137-145); Total Bilirubin 0.6 mg/dL (0.2-1.3); Total Protein 6.7 g/dL (6.3-8.2)
--- NOTE | 2024-06-15 08:08 | XR ---
EXAMINATION TYPE: XR chest 2V DATE OF EXAM: 06/15/2024 CLINICAL INDICATION: Male, 63 years old with history of Chest Pain, TECHNIQUE: Frontal and lateral views of the chest are obtained. COMPARISON: Chest x-ray April 18, 2024 FINDINGS: There is no focal air space opacity, pleural effusion, or pneumothorax seen. The cardiac silhouette size is stable and upper limits of normal. The osseous structures are intact. Surgical c hanges near gastroesophageal junction are redemonstrated. IMPRESSION: No acute pulmonary process. No significant change from prior. [facility], , 06/15/2024 8:06 AM
--- NOTE | 2024-06-15 08:09 | XR ---
EXAMINATION TYPE: XR shoulder complete RT DATE OF EXAM: 06/15/2024 CLINICAL INDICATION: Male, 63 years old with history of fall, pain, pain TECHNIQUE: Three views of the right shoulder are obtained. COMPARISON: Right shoulder x-ray March 12, 2024. FINDINGS: There is no acute fracture/dislocation evident in the right shoulder. [id number]-[id number] narrowing and capsular hypertrophy at the acromioclavicular joint. Glenohumeral joint is preserved. T he visualized ribs are intact and unremarkable. IMPRESSION: There is no acute fracture or dislocation in the right shoulder. No significant kearns e from prior. [facility], , 06/15/2024 8:07 AM
[2024-06-15 08:54] LABS: INR 0.8 (<1.2); Prothrombin Time 9.7 sec (10.0-12.5)
--- NOTE | 2024-06-15 09:26 | ED ---
Chest Pain HPI - General Chief Complaint: Chest Pain Stated Complaint: Chest Pain/Passed Out Time Seen by Provider: 06/15/24 07:10 Source: patient Mode of arrival: ambulatory Limitations: no limitations - History of Present Illness Initial Comments: 63-year-old man with past medical history of coronary artery disease who presents to the emergency department reporting chest pain. States that he started having chest pain last night. He ended up having a syncopal episode where he was out for approximately 5 minutes. Reports that he passed out again this morning and landed on his right shoulder. Denies to me that he hit his head. He is not on any anticoagulation. Patient has active chest pain coming into the emergency department. No fevers chills or cough. He did not take anything for his pain. He is allergic to nitro. Describes it as a pressure sensation. He feels generally weak. No other alleviating, precipitating or modifying factors - Related Data Home Medications Medication Instructions Recorded Confirmed HYDROcodone/APAP 10-325MG [[place] 1 tab PO QID PRN 04/02/24 04/18/24 10-325] QUEtiapine FUMARATE [SEROquel] 200 mg PO HS 04/02/24 04/18/24 QUEtiapine [SEROquel] 50 mg PO BID 04/02/24 04/18/24 Venlafaxine HCl [Effexor XR] 75 mg PO DAILY 04/02/24 04/18/24 Previous Rx's Medication Instructions Recorded Aspirin 81 mg PO DAILY #30 tab 12/18/22 Atorvastatin [Lipitor] 80 mg PO HS 30 Days #30 tab 01/14/24 Allergies Allergy/AdvReac Type Severity Reaction Status Date / Time blueberry Allergy Rash/Hives Verified 06/15/24 07:09 nitroglycerin Allergy Swelling Verified 06/15/24 07:09 Review of Systems ROS Statement: Those systems with pertinent positive or pertinent negative responses have been documented in the HPI. ROS Other: All systems not noted in ROS Statement are negative. Past Medical History Past Medical History: Coronary Artery Disease (CAD), Chest Pain / Angina, Hyperlipidemia, Myocardial Infarction ([place]), Osteoarthritis (OA) Additional Past Medical History / Comment(s): arthritis in back and bilateral knees,hx hiatal hernia Last Myocardial Infarction Date:: 2004 History of Any Multi-Drug Resistant Organisms: None Reported, Other MDRO Past Surgical History: Bowel Resection, Heart Catheterization With Stent Additional Past Surgical History / Comment(s): Cardiac stents x 5, bowel surgery for pinpoint hole in bowel, L knee arthroscopy, colonoscopy/benign polypectomies,hiatal hernia repair Past Anesthesia/Blood Transfusion Reactions: No Reported Reaction Date of Last Stent Placement:: 2013 Past Psychological History: Bipolar, Depression, PTSD, Schizophrenia Smoking Status: Current every day smoker Past Alcohol Use History: Occasional Past Drug Use History: None Reported - Past Family History Father Family Medical History: Respiratory Disorder Additional Family Medical History / Comment(s): Father at age 64 from Black lung disease Mother Family Medical History: Hypertension, Myocardial Infarction ([place]) Additional Family Medical History / Comment(s): Mother of an [place] at 78yrs old. Brother(s) Family Medical History: Myocardial Infarction ([place]) Additional Family Medical History / Comment(s): Patient has 10 brothers and 2 from myocardial infarction and had history of alcoholism. Sister(s) Family Medical History: Hypertension, Myocardial Infarction ([place]) Additional Family Medical History / Comment(s): He has 7 sisters that are alive with no major medical problems. He has one son that has and one daughter that is alive and okay. General Exam Limitations: no limitations General appearance: alert, in no apparent distress Head exam: Present: atraumatic, normocephalic, normal inspection Eye exam: Present: normal appearance, PERRL, EOMI. Absent: scleral icterus, conjunctival injection, periorbital swelling ENT exam: Present: normal exam, mucous membranes moist Neck exam: Present: normal inspection. Absent: tenderness, meningismus, lymphadenopathy Respiratory exam: Present: normal lung sounds bilaterally. Absent: respiratory distress, wheezes, rales, rhonchi, stridor Cardiovascular Exam: Present: regular rate, normal rhythm, normal heart sounds. Absent: systolic murmur, diastolic murmur, rubs, gallop, clicks GI/Abdominal exam: Present: soft, normal bowel sounds. Absent: distended, tenderness, guarding, rebound, rigid Extremities exam: Present: normal inspection, full ROM, normal capillary refill. Absent: tenderness, pedal edema, joint swelling, calf tenderness Back exam: Present: normal inspection Neurological exam: Present: alert, oriented X3, CN II-XII intact Psychiatric exam: Present: normal affect, normal mood Skin exam: Present: warm, dry, intact, normal color. Absent: rash Course Vital Signs 06/15/24 06/15/24 06/15/24 07:07 07:09 08:41 Temperature 98.5 F Pulse Rate 89 85 84 Respiratory 18 16 20 Rate Blood Pressure 145/90 150/90 116/90 O2 Sat by Pulse 99 98 98 Oximetry Chest Pain MDM - MDM Was pt. sent in by a medical professional or institution ([facility], [facility], urgent care, hospital, or [facility]...) When possible be specific @ -[No] Did you speak to anyone other than the patient for history (EMS, parent, family, police, friend...)? What history was obtained from this source @ -[No] Did you review nursing and triage notes (agree or disagree)? Why? @ -[I reviewed and agree with nursing and triage notes] Were old charts reviewed (outside hosp., previous admission, EMS record, old EKG, old radiological studies, urgent care reports/EKG's, [facility] records)? Report findings @ -[No old charts were reviewed] Differential Diagnosis (chest pain, altered mental status, abdominal pain women, abdominal pain men, vaginal bleeding, weakness, fever, dyspnea, syncope, headache, dizziness, GI bleed, back pain, seizure, CVA, palpatations, mental health, musculoskeletal)? @ -[not applicable] EKG interpreted by me (3pts min.). @ -Yes and demonstrates sinus rhythm with a rate of 91. [place] interval 128. QRS 90. QTc of 412. No acute ST segment elevations or depressions X-rays interpreted by me (1pt min.). @ -[None done] CT interpreted by me (1pt min.). @ -[None done] U/S interpreted by me (1pt. min.). @ -[None done] What testing was considered but not performed or refused? (CT, X-rays, U/S, labs)? Why? @ -[None] What meds were considered but not given or refused? Why? @ -[None] Did you discuss the management of the patient with other professionals (professionals i.e. [facility], [facility], lab, RT, psych nurse, social worker school, pricing lead, teacher, disciplinary hearing officer, employment case manager)? Give summary @ -[No] Was smoking cessation discussed for >3mins.? @ -[No] Was critical care preformed (if so, how long)? @ -[No] Were there social determinants of health that impacted care today? How? (Homelessness, low income, unemployed, alcoholism, drug addiction, transportation, low edu. Level, literacy, decrease access to med. care, half-way, rehab)? @ -[No] Was there de-escalation of care discussed even if they declined (Discuss DNR or withdrawal of care, Hospice)? DNR status @ -[No] What co-morbidities impacted this encounter? (DM, HTN, Smoking, COPD, CAD, Cancer, CVA, ARF, Chemo, Hep., AIDS, mental health diagnosis, sleep apnea, morbid obesity)? @ -[None] Was patient admitted / discharged? Hospital course, mention meds given and route, prescriptions, significant lab abnormalities, going to OR and other pertinent info. @ -[hospital course] Undiagnosed new problem with uncertain prognosis? @ -[No] Drug Therapy requiring intensive monitoring for toxicity (Heparin, Nitro, Insulin, Cardizem)? @ -[No] Were any procedures done? @ -[No] Diagnosis/symptom? @ -[default] Acute, or Chronic, or Acute on Chronic? @ -[default] Uncomplicated (without systemic symptoms) or Complicated (systemic symptoms)? @ -[default] Side effects of treatment? @ -[No] Exacerbation, Progression, or Severe Exacerbation? @ -[No] Poses a threat to life or bodily function? How? (Chest pain, [place], [place], pneumonia, PE, COPD, DKA, ARF, appy, cholecystitis, CVA, Diverticulitis, Homicidal, Suicidal, threat to staff... and all critical care pts) @ -[No] Disposition Clinical Impression: Chest pain, Syncope Disposition: ADMITTED IP TO THIS [facility] Condition: Stable Is patient prescribed a controlled substance at d/c from ED?: No Referrals: Nikolas Howard MD [Primary Care Provider] - 1-2 days Willy Sorto MD [STAFF PHYSICIAN] - 1-2 days (Office will contact you about an appointment after your reconrds are reviewed. ) Time of Disposition: 09:59 Decision to Admit Reason: Admit from EC Decision Date: 06/15/24 Decision Time: 09:59
--- NOTE | 2024-06-15 09:59 | P.HPIM ---
History of Present Illness H&P Date: 06/15/24 History of Presenting Illness: Patient is a 63-year-old male with a past medical history of CAD status post stenting, hypertension, hyperlipidemia, alcohol abuse, anxiety and depression, bipolar disorder, PTSD, schizophrenia, and nicotine dependence. He presented to the emergency department with a chief complaint of chest pain and syncopal episode. Patient is very well-known to our services and has had multiple previous admissions for similar complaints undergoing workup by both neurology and cardiology. Patient reports current symptoms began yesterday evening. Patient admits to drinking alcohol yesterday with last drink being yesterday afternoon and reports yesterday evening having a syncopal episode followed by chest pain radiating into right shoulder. He reports the chest pain continued throughout the night and he had another near syncopal episode this morning so he came into the emergency department for evaluation. Patient denies hitting his head or having any injuries. He denies having headache, lightheadedness, dizziness, palpitations, shortness of breath, cough or congestion, abdominal pain, nausea, vomiting, or experiencing any numbness/tingling/weakness in his extremities. Upon arrival to our facility, patient underwent evaluation in the emergency department. Vital signs upon arrival show blood pressure 145/90, heart rate 89, respiratory rate 18, temp 98.5 F, and SpO2 of 99% on room air.. EKG completed showing sinus rhythm at 91 bpm with left ventricular hypertrophy and no noted T wave or ST abnormality showing no signs of acute ischemia upon personal review and interpretation. Chest x-ray negative for acute cardiopulmonary process. Right shoulder negative for acute fracture or dislocat ion. Labs completed and reviewed. CBC showing bicytopenia with WBC count of 4.34 and hemoglobin of 12.7. Coagulation profile showing a low PT of 9.7. BMP unremarkable. Magnesium 1.8. Calcium 9.4. Liver profile normal findings. Troponin was negative at less than 0.012. Urine drug screen positive for opiates and tricyclic antidepressants. Serum alcohol level was less than 10. Patient admitted under services with consultation to cardiology. Review of systems: Pertinent positives and negatives as discussed in HPI, a complete review of systems was performed and all other systems are negative. Physical exam: Vital signs reviewed and stable. General: Nontoxic, no distress and appears stated age. Derm: Skin warm and dry, normal coloration for ethnicity. Head: Atraumatic, normocephalic and symmetric. Eyes: EOM's intact, no lid lag, and anicteric sclera Mouth: no lip lesions, mucus membranes moist Cardiovascular: regular rate and rhythm with normal S1S2, no murmur, positive posterior tibial pulses bilaterally, and cap refill < 2 seconds. Lungs: Respirations even, regular, and unlabored on room air. Lungs CTA bilaterally, no rhonchi, no rales, no wheezing, and no accessory muscle usage. Abdominal: soft, nontender to palpation, no guarding, no appreciable organomegaly Ext: ROM intact. No gross muscle atrophy, no edema, no contractures Neuro: Speech clear, face symmetrical and CN II-XII grossly intact with no noted focal neuro deficits Psych: Alert and oriented to person, place, time, and situation. Appropriate and pleasant affect. Assessment and Plan of Care: Chest pain, rule out acute coronary event Syncopal/Presyncopal Episode CAD status post tenting Hypertension Hyperlipidemia -Cardiology consulted, appreciate recommendations -Telemetry monitoring -Trend troponins -Cardiac diet, NPO at midnight -Aspirin 81 mg daily and atorvastatin 80 mg nightly, Anxiety with depression Bipolar disorder PTSD Schizophrenia -Continue daily medication regimen with Effexor 75 mg daily, Seroquel 200 mg nightly and 50 mg twice daily. Data and imaging reviewed: As stated above in HPI The patient is admitted with an anticipated less than 2 midnight stay for evaluation of chest pain CODE STATUS: Full code DVT prophylaxis: Heparin Anticipated discharge date: Likely in the next [address]: Home Patient was seen independently by Nurse Practitioner. This document was prepared using [employer] dictation software. Please allow for errors in sales representative marine supplies while rare they do occur. Layo Muller NP rendered care for this patient independently, reviewed the findings and plan as documented in the note above and agree with plan. I did not physically speak with or examine the patient on this date. Past Medical History Past Medical History: Coronary Artery Disease (CAD), Chest Pain / Angina, Hyperlipidemia, Myocardial Infarction ([place]), Osteoarthritis (OA) Additional Past Medical History / Comment(s): arthritis in back and bilateral knees,hx hiatal hernia Last Myocardial Infarction Date:: 2004 History of Any Multi-Drug Resistant Organisms: None Reported, Other MDRO Past Surgical History: Bowel Resection, Heart Catheterization With Stent Additional Past Surgical History / Comment(s): Cardiac stents x 5, bowel surgery for pinpoint hole in bowel, L knee arthroscopy, colonoscopy/benign polypectomies,hiatal hernia repair Past Anesthesia/Blood Transfusion Reactions: No Reported Reaction Date of Last Stent Placement:: 2013 Past Psychological History: Bipolar, Depression, PTSD, Schizophrenia Smoking Status: Current every day smoker Past Alcohol Use History: Occasional Past Drug Use History: None Reported - Past Family History Father Family Medical History: Respiratory Disorder Additional Family Medical History / Comment(s): Father at age 64 from Black lung disease Mother Family Medical History: Hypertension, Myocardial Infarction ([place]) Additional Family Medical History / Comment(s): Mother of an [place] at 78yrs old. Brother(s) Family Medical History: Myocardial Infarction ([place]) Additional Family Medical History / Comment(s): Patient has 10 brothers and 2 from myocardial infarction and had history of alcoholism. Sister(s) Family Medical History: Hypertension, Myocardial Infarction ([place]) Additional Family Medical History / Comment(s): He has 7 sisters that are alive with no major medical problems. He has one son that has and one daughter that is alive and okay. Medications and Allergies Home Medications Medication Instructions Recorded Confirmed Type Aspirin 81 mg PO DAILY #30 tab 12/18/22 06/15/24 Rx Atorvastatin [Lipitor] 80 mg PO HS 30 Days #30 tab 01/14/24 06/15/24 Rx HYDROcodone/APAP 10-325MG [[place] 1 tab PO QID PRN 04/02/24 06/15/24 History 10-325] QUEtiapine FUMARATE [SEROquel] 200 mg PO HS 04/02/24 06/15/24 History QUEtiapine [SEROquel] 50 mg PO BID 04/02/24 06/15/24 History Venlafaxine HCl [Effexor XR] 75 mg PO DAILY 04/02/24 06/15/24 History Allergies Allergy/AdvReac Type Severity Reaction Status Date / Time blueberry Allergy Rash/Hives Verified 06/15/24 10:23 nitroglycerin Allergy Swelling Verified 06/15/24 10:23 Physical Exam Vitals: Vital Signs Temp Pulse Resp BP Pulse Ox 06/15/24 08:41 84 20 116/90 98 06/15/24 07:09 85 16 150/90 98 06/15/24 07:07 98.5 F 89 18 145/90 99 Intake and Output 06/14/24 06/15/24 06/15/24 22:59 06:59 14:59 Other: Weight 74.843 kg Results CBC & Chem 7: 06/15/24 07:35 06/15/24 07:35 Labs: Abnormal Lab Results - Last 24 Hours (Table) 06/15/24 06/15/24 Range/Units 07:35 07:35 WBC 4.34 L (4.50-10.00) 10*3/uL RBC 3.90 L (4.40-5.60) 10*6/uL Hgb 12.7 L (13.0-17.0) g/dL Hct 37.0 L (39.6-50.0) % MCH 32.6 H (27.0-32.0) pg PT 9.7 L (10.0-12.5) sec
[2024-06-15] MEDS ORDERED: NALOXONE 0.4 MG/ML 1 ML VIAL IV PRN (10:00)
[2024-06-15] MEDS: ASPIRIN 81 MG PO STA (11:02)
[2024-06-15 12:56] LABS: Amphetamine Screen,Urine Not Detected (NotDetected); Barbiturate Screen,Urine Not Detected (NotDetected); Benzodiazepines Screen,Urine Not Detected (NotDetected); Cocaine Screen,Urine Not Detected (NotDetected); Methadone Screen, Urine Not Detected (NotDetected); Opiate Screen,Urine Detected (NotDetected); Oxycodone Screen, Urine Not Detected (NotDetected); Phencyclidine Screen,Urine Not Detected (NotDetected); Tricyclic Antidepressant,Urine Detected (NotDetected); Urn Cannabinoid Scrn Not Detected (NotDetected)
[2024-06-15] MEDS: HYDROcodone/APAP 10-325MG 1 EACH TAB PO PRN (16:05)
[2024-06-15 16:13] VITALS: RESP 16
[2024-06-15] MEDS: KETOROLAC 15 MG/ML 1 ML VIAL IVP PRN (16:59)
[2024-06-15] MEDS: QUEtiapine 50 MG TAB PO SCH (20:22)
[2024-06-15] MEDS: ATORVASTATIN 80 MG TAB PO SCH (20:45)
[2024-06-15] MEDS: QUEtiapine 200 MG TAB PO SCH (21:44)
[2024-06-15] MEDS: HEPARIN SODIUM,PORCINE 5,000 UNIT/ML 1 ML VIAL SQ SCH (23:21)
[2024-06-16 03:50] LABS: Basophils # (A) 0.03 10*3/uL (0.00-0.10); Basophils % (A) 0.9 %; Eosinophils # (A) 0.05 10*3/uL (0.04-0.35); Eosinophils % (A) 1.6 %; HCT 32.2 % (39.6-50.0); HGB 10.8 g/dL (13.0-17.0); Lymphocytes # (A) 1.69 10*3/uL (0.90-5.00); Lymphocytes % (A) 52.5 %; MCH 32.3 pg (27.0-32.0); MCHC 33.5 g/dL (32.0-37.0); MCV 96.4 fL (80.0-97.0); Mean Platelet Volume 10.3 fL (9.5-12.2); Monocytes # (A) 0.29 10*3/uL (0.20-1.00); Neutrophils # (A) 1.15 10*3/uL (1.80-7.70); Neutrophils % (A) 35.7 %; Platelet Count 147 10*3/uL (140-440); RBC 3.34 10*6/uL (4.40-5.60); RDW 14.6 % (11.5-14.5); WBC 3.22 10*3/uL (4.50-10.00)
[2024-06-16 04:15] LABS: African American GFR (CKD) >90 (>60 ml/min/1.73 sqM); Anion Gap 3 mmol/L; Blood Urea Nitrogen 18 mg/dL (9-20); Calcium 8.9 mg/dL (8.4-10.2); Carbon Dioxide 27 mmol/L (22-30); Chloride 102 mmol/L (98-107); Glucose 95 mg/dL (74-99); Non-African American GFR(CKD) >90 (>60 ml/min/1.73 sqM); Potassium 3.7 mmol/L (3.5-5.1); Sodium 132 mmol/L (137-145)
[2024-06-16] MEDS: VENLAFAXINE HCL ER 75 MG CAP PO SCH (10:02)
[2024-06-16] MEDS: METOPROLOL SUCCINATE (ER) 25 MG TAB.ER.24H PO SCH (10:02)
[2024-06-16] MEDS: ASPIRIN 81 MG PO SCH (10:02)
--- NOTE | 2024-06-16 10:19 | P.CRDCN ---
History of Present Illness History of present illness: HISTORY OF PRESENT ILLNESS: This is a 63-year-old male with a past medical history significant for coronary artery disease with previous PCI, hypertension, hyperlipidemia, alcohol abuse, medication noncompliance, nicotine dependence. Patient currently does not follow with a shower screen installer but states he is supposed to follow-up in the office with Dr. Moody. We have been asked to see the patient in consultation for chest pain. Patient examined at the bedside. Patient presented to the hospital with a chief complaint of chest pain. Patient states he started having chest pain about 2 da ys ago. He also reports having 2 episodes of syncope at home. The patient does have a previous history of syncope of unclear etiology. Vital signs are stable. At the time of examination the patient denies any chest pain or pressure. DIAGNOSTICS: - EKG reveals sinus mechanism with no signs of acute ischemia. - Chest xray negative for acute process. - Laboratory data: WBC 3.22. Hemoglobin 10.8. Platelet count 147. Sodium 132. Potassium 3.7. BUN 18. Creatinine 0.73. Troponin negative x 3 - Current home cardiac medications include aspirin 81 mg daily, Lipitor 80 mg at night. - Most recent echocardiogram obtained in December 2023 revealing ejection fraction 55 to 60% with mild mitral and mild to moderate tricuspid regurgitation - Cardiac catheterization history: January 2024 revealing mild in-stent restenosis of the mid LAD appears to be exactly the same as before. Normal left-sided filling pressures. REVIEW OF SYSTEMS: At the time of my exam: CONSTITUTIONAL: Denies fever or chills. HEENT: Denies blurred vision, vision changes, or eye pain. Denies hemoptysis CARDIOVASCULAR: Denies chest pain. Denies orthopnea. Denies PND. Denies palpitations RESPIRATORY: Denies shortness of breath. GASTROINTESTINAL: Denies abdominal pain. Denies nausea or vomiting. HEMATOLOGIC: Denies bleeding disorders. GENITOURINARY: Denies any blood in urine. SKIN: Denies pruitis. Denies rash. PHYSICAL EXAM: VITAL SIGNS: Reviewed. GENERAL: Well-developed in no acute distress. HEENT: Head is normocephalic. Pupils are equal, round. Sclerae anicteric. Mucous membranes of the mouth are moist. Neck supple. No JVD or thyromegaly LUNGS: Respirations even and unlabored. Lungs essentially clear to auscultation bilaterally. HEART: Regular rate and rhythm. S1 and S2 heard. ABDOMEN: Soft. Nondistended. Nontender. EXTREMITIES: Normal range of motion. No clubbing or cyanosis. Peripheral puls es intact. No lower extremity edema NEUROLOGIC: Awake and alert. Oriented x 3. ASSESSMENT: Chest pain, troponin negative x 3 Coronary artery disease with previous stenting Syncope Hypertension Hyperlipidemia History of alcohol abuse History of medication noncompliance Nicotine dependence PLAN: An acute coronary event has been ruled out Resume home cardiac medications Add metoprolol succinate 25 mg daily Patient to receive 2-week event monitor today Recommend outpatient stress testing Patient may be discharged home today after receiving his event monitor Patient to follow-up in the office with Dr. Moody Abstinence from alcohol recommended Smoking cessation encouraged Further recommendations pending patient course Nurse practitioner note has been reviewed by physician. Signing provider agrees with the documented findings, assessment, and plan of care documented by METALLURGY TEACHER as a scribe. Past Medical History Past Medical History: Coronary Artery Disease (CAD), Chest Pain / Angina, Hyperlipidemia, Myocardial Infarction (CT), Osteoarthritis (OA) Additional Past Medical History / Comment(s): arthritis in back and bilateral knees,hx hiatal hernia Last Myocardial Infarction Date:: 2004 History of Any Multi-Drug Resistant Organisms: None Reported, Other MDRO Past Surgical History: Bowel Resection, Heart Catheterization With Stent Additional Past Surgical History / Comment(s): Cardiac stents x 5, bowel surgery for pinpoint hole in bowel, L knee arthroscopy, colonoscopy/benign polypectomies,hiatal hernia repair Past Anesthesia/Blood Transfusion Reactions: No Reported Reaction Date of Last Stent Placement:: 2013 Past Psychological History: Bipolar, Depression, PTSD, Schizophrenia Smoking Status: Current every day smoker Past Alcohol Use History: Occasional Past Drug Use History: None Reported - Past Family History Father Family Medical History: Respiratory Disorder Additional Family Medical History / Comment(s): Father at age 64 from Black lung disease Mother Family Medical History: Hypertension, Myocardial Infarction (CT) Additional Family Medical History / Comment(s): Mother of an CT at 78yrs old. Brother(s) Family Medical History: Myocardial Infarction (CT) Additional Family Medical History / Comment(s): Patient has 10 brothers and 2 from myocardial infarction and had history of alcoholism. Sister(s) Family Medical History: Hypertension, Myocardial Infarction (CT) Additional Family Medical History / Comment(s): He has 7 sisters that are alive with no major medical problems. He has one son that has and one daughter that is alive and okay. Medications and Allergies Home Medications Medication Instructions Recorded Confirmed Type Aspirin 81 mg PO DAILY #30 tab 12/18/22 06/15/24 Rx Atorvastatin [Lipitor] 80 mg PO HS 30 Days #30 tab 01/14/24 06/15/24 Rx HYDROcodone/APAP 10-325MG [[place]ill 1 tab PO QID PRN 04/02/24 06/15/24 History 10-325] QUEtiapine FUMARATE [SEROquel] 200 mg PO HS 04/02/24 06/15/24 History QUEtiapine [SEROquel] 50 mg PO BID 04/02/24 06/15/24 History Venlafaxine HCl [Effexor XR] 75 mg PO DAILY 04/02/24 06/15/24 History Allergies Allergy/AdvReac Type Severity Reaction Status Date / Time blueberry Allergy Rash/Hives Verified 06/15/24 10:23 nitroglycerin Allergy Swelling Verified 06/15/24 10:23 Physical Exam Vitals: Vital Signs Temp Pulse Pulse Resp BP BP Pulse Ox 06/16/24 07:57 97.7 F 71 101/67 100 06/16/24 02:00 97.5 F L 70 16 125/88 100 06/15/24 20:00 16 06/15/24 19:54 98.2 F 71 16 126/81 99 06/15/24 16:12 97.9 F 70 16 148/99 100 06/15/24 15:55 75 20 148/92 96 06/15/24 14:00 75 16 127/93 98 06/15/24 11:43 73 15 123/94 98 06/15/24 11:00 86 16 122/86 100 Intake and Output 06/15/24 06/16/24 06/16/24 22:59 06:59 14:59 Other: # Voids 1 1 Weight 69.5 kg Results 06/16/24 03:29 06/16/24 03:29 Cardiac Enzymes 06/15/24 06/15/24 Range/Units 11:02 13:54 Troponin I <0.012 <0.012 (0.000-0.034) ng/mL CBC 06/16/24 Range/Units 03:29 WBC 3.22 L (4.50-10.00) 10*3/uL RBC 3.34 L (4.40-5.60) 10*6/uL Hgb 10.8 L (13.0-17.0) g/dL Hct 32.2 L (39.6-50.0) % Plt Count 147 (140-440) 10*3/uL Comprehensive Metabolic Panel 06/16/24 Range/Units 03:29 Sodium 132 L (137-145) mmol/L Potassium 3.7 (3.5-5.1) mmol/L Chloride 102 (98-107) mmol/L Carbon Dioxide 27 (22-30) mmol/L BUN 18 (9-20) mg/dL Creatinine 0.73 (0.66-1.25) mg/dL Glucose 95 (74-99) mg/dL Calcium 8.9 (8.4-10.2) mg/dL Current Medications Generic Name Dose Route Start Last Admin Trade Name Freq PRN Reason Stop Dose Admin Hydrocodone Bitart/Acetaminophen 1 each 06/15/24 13:15 06/15/24 21:44 Hydrocodone/Apap 10-325mg 1 Each Tab PO 1 each QID PRN Administration Pain Aspirin 81 mg 06/16/24 09:00 06/16/24 10:02 Aspirin 81 Mg PO 81 mg DAILY MORRIS Administration Atorvastatin Calcium 80 mg 06/15/24 21:00 06/15/24 20:45 Atorvastatin 80 Mg Tab PO 80 mg HS MORRIS Administration Heparin Sodium (Porcine) 5,000 unit 06/16/24 00:00 06/16/24 10:02 Heparin Sodium,Porcine 5,000 Unit/Ml 1 Ml Vial SQ Not Given Q8HR MORRIS Ketorolac Tromethamine 15 mg 06/15/24 16:26 06/16/24 06:50 Ketorolac 15 Mg/Ml 1 Ml Vial IVP 06/20/24 16:26 15 mg Q6HR PRN Administration Pain Metoprolol Succinate 25 mg 06/16/24 09:15 06/16/24 10:02 Metoprolol Succinate (Er) 25 Mg Tab.Er.24h PO 25 mg DAILY MORRIS Administration Naloxone HCl 0.2 mg 06/15/24 10:00 Naloxone 0.4 Mg/Ml 1 Ml Vial IV Q2M PRN Opioid Reversal Quetiapine Fumarate 50 mg 06/15/24 21:00 06/16/24 10:02 Quetiapine 50 Mg Tab PO 50 mg BID MORRIS Administration Quetiapine Fumarate 200 mg 06/15/24 21:00 06/15/24 21:44 Quetiapine 200 Mg Tab PO 200 mg HS MORRIS Administration Venlafaxine HCl 75 mg 06/16/24 09:00 06/16/24 10:02 Venlafaxine Hcl Er 75 Mg Cap PO 75 mg DAILY MORRIS Administration Intake and Output 06/15/24 06/16/24 06/16/24 22:59 06:59 14:59 Other: # Voids 1 1 Weight 69.5 kg 06/16/24 03:29 06/16/24 03:29
--- NOTE | 2024-06-16 13:55 | P.DS ---
Providers Date of admission: 06/15/24 10:00 Expected date of discharge: 06/16/24 Attending physician: Chu Fry MD Consults: 06/15/24 10:00 Consult Physician Urgent Consulting Provider: [facility] Consult Reason/Comments: acute chest pain, hx ascad Do you want consulting provider notified?: Yes Primary care physician: Nikolas Howard MD Hospital Course: Discharge Diagnosis: Chest pain, acute coronary event ruled out. EKG showing normal sinus rhythm. Troponins were trended all negative at less than 0.012 x 3 draws. Patient was evaluated by cardiology recommending home with event monitor x 2 weeks and outpatient follow-up with Dr. Moody in office. Patient medically optimized at this time, discussed discharge recommendations and instructions with patient. Patient to follow-up outpatient with PCP in 1 to 2 days and with tour coordinator in 1-2 weeks. Syncopal/Presyncopal Episode CAD status post stenting. Continue aspirin 81 mg daily, atorvastatin 80 mg nightly, and metoprolol succinate 25 mg daily. Hypertension. Patient was started on Metoprolol succinate 25 mg daily. Hyperlipidemia. Continue home medication regimen with atorvastatin 80 mg nightly. Anxiety with depression. Continue daily medication regimen with Effexor 75 mg daily, Seroquel 200 mg nightly and 50 mg twice daily. Bipolar disorder. Continue daily medication regimen with Effexor 75 mg daily, Seroquel 200 mg nightly and 50 mg twice daily. PTSD. Continue daily medication regimen with Effexor 75 mg daily, Seroquel 200 mg nightly and 50 mg twice daily. Schizophrenia. Continue daily medication regimen with Effexor 75 mg daily, Seroquel 200 mg nightly and 50 mg twice daily. Hospital Course: Patient is a 63-year-old male with a past medical history of CAD status post stenting, hypertension, hyperlipidemia, alcohol abuse, anxiety and depression, bipolar disorder, PTSD, schizophrenia, and nicotine dependence. He presented to the emergency department with a chief complaint of chest pain and syncopal episode. Patient is very well-known to our services and has had multiple previous admissions for similar complaints undergoing workup by both neurology and cardiology. Patient reports current symptoms began yesterday evening. Patient admits to drinking alcohol yesterday with last drink being yesterday afternoon and reports yesterday evening having a syncopal episode followed by chest pain radiating into right shoulder. He reports the chest pain continued throughout the night and he had another near syncopal episode this morning so he came into the emergency department for evaluation. Patient denies hitting his head or having any injuries. He denies having headache, lightheadedness, dizziness, palpitations, shortness of breath, cough or congestion, abdominal pain, nausea, vomiting, or experiencing any numbness/tingling/weakness in his extremities. Upon arrival to our facility, patient underwent evaluation in the emergency department. Vital signs upon arrival show blood pressure 145/90, heart rate 89, respiratory rate 18, temp 98.5 F, and SpO2 of 99% on room air.. EKG completed showing sinus rhythm at 91 bpm with left ventricular hypertrophy and no noted T wave or ST abnormality showing no signs of acute ischemia upon personal review and interpretation. Chest x-ray negative for acute cardiopulmonary process. Right shoulder negative for acute fracture or dislocation. Labs completed and reviewed. CBC showing bicytopenia with WBC count of 4.34 and hemoglobin of 12.7. Coagulation profile showing a low PT of 9.7. BMP unremarkable. Magnesium 1.8. Calcium 9.4. Liver profile normal findings. Troponin was negative at less than 0.012. Urine drug screen positive for opiates and tricyclic antidepressants. Serum alcohol level was less than 10. Patient admitted under services with consultation to cardiology.Troponins were trended all negative at less than 0.012 x 3 draws. Patient was evaluated by cardiology recommending home with event monitor x 2 weeks and outpatient follow-up with Dr. Moody in office. Patient medically optimized at this time, discussed discharge recommendations and instructions with patient. Patient to follow-up outpatient with PCP in 1 to 2 days and with tour coordinator in 1-2 weeks. Physical exam: Vital signs reviewed and stable. General: Nontoxic, no distress and appears stated age. Derm: Skin warm and dry, normal coloration for ethnicity. Head: Atraumatic, normocephalic and symmetric. Eyes: EOM's intact, no lid lag, and anicteric sclera Mouth: no lip lesions, mucus membranes moist Cardiovascular: regular rate and rhythm with normal S1S2, no murmur, positive posterior tibial pulses bilaterally, and cap refill < 2 seconds. Lungs: Respirations even, regular, and unlabored on room air. Lungs CTA bilaterally, no rhonchi, no rales, no wheezing, and no accessory muscle usage. Abdominal: soft, nontender to palpation, no guarding, no appreciable organomegaly Ext: ROM intact. No gross muscle atrophy, no edema, no contractures Neuro: Speech clear, face symmetrical and CN II-XII grossly intact with no noted focal neuro deficits Psych: Alert and oriented to person, place, time, and situation. Appropriate and pleasant affect. A total of 33 minutes of time were spent preparing this complex discharge summary. Pt was discharged on 06/16/2024 at 1:55 PM. Patient was seen independently by Nurse Practitioner. This document was prepared using [employer] dictation software. Please allow for errors in senior net engineer while rare they do occur. Layo Muller NP rendered care for this patient independently, reviewed the findings and plan as documented in the note above. I did not physically speak with or examine the patient on this date. Patient Condition at Discharge: Stable Plan - Discharge Summary New Discharge Prescriptions: New Metoprolol Succinate (ER) [Toprol XL] 25 mg PO DAILY 30 Days #30 tab Continue Aspirin 81 mg PO DAILY #30 tab QUEtiapine FUMARATE [SEROquel] 200 mg PO HS Atorvastatin [Lipitor] 80 mg PO HS 30 Days #30 tab Venlafaxine HCl [Effexor XR] 75 mg PO DAILY QUEtiapine [SEROquel] 50 mg PO BID HYDROcodone/APAP 10-325MG [Viola 10-325] 1 tab PO QID PRN PRN Reason: Pain Discharge Medication List Aspirin 81 mg PO DAILY #30 tab 12/18/22 [Rx] Atorvastatin [Lipitor] 80 mg PO HS 30 Days #30 tab 01/14/24 [Rx] HYDROcodone/APAP 10-325MG [Viola 10-325] 1 tab PO QID PRN 04/02/24 [History] QUEtiapine FUMARATE [SEROquel] 200 mg PO HS 04/02/24 [History] QUEtiapine [SEROquel] 50 mg PO BID 04/02/24 [History] Venlafaxine HCl [Effexor XR] 75 mg PO DAILY 04/02/24 [History] Metoprolol Succinate (ER) [Toprol XL] 25 mg PO DAILY 30 Days #30 tab 06/16/24 [Rx] Follow up Appointment(s)/Referral(s): Nikolas Howard MD [Primary Care Provider] - 1-2 days Primo Moody MD [STAFF PHYSICIAN] - 1 Week Patient Instructions/Handouts: Chest Pain (DC) Activity/Diet/Wound Care/Special Instructions: Activity: As tolerated. Take breaks as needed. Diet: Heart healthy and carb consistent diet. Avoid salts, or foods with hidden salts such as canned or boxed foods and frozen dinners. Extra salt makes your heart work harder and traps the fluid in your body for longer. Special Instructions: Take all of your medications as directed and remember to keep all of your doctor's appointments and follow-up as needed. Thank you for allowing us to participate in your care, it was truly a pleasure having you for our patient!!! Discharge Disposition: HOME SELF-CARE
[2024-06-16 14:39] VITALS: BP 107/63; PULSE 76; TEMP 98.1
== END 2024-06-16 15:30 | disposition home or self-care (01) ==
LOC: EC 07:05 → 6NMEDSUR 10:00 → 1SOBS 14:02
PROVIDERS: ADMIT Family Medicine; ATTEND Family Medicine
DX: R07.89 Other chest pain (principal); R55 Syncope and collapse; M25.511 Pain in right shoulder; I25.10 Atherosclerotic heart disease of native coronary artery without angina pectoris; I11.9 Hypertensive heart disease without heart failure; D64.9 Anemia, unspecified; D69.6 Thrombocytopenia, unspecified; E78.5 Hyperlipidemia, unspecified; Z91.148 Patient's other noncompliance with medication regimen for other reason; Z95.5 Presence of coronary angioplasty implant and graft; F31.9 Bipolar disorder, unspecified; F41.9 Anxiety disorder, unspecified; F43.10 Post-traumatic stress disorder, unspecified; F20.9 Schizophrenia, unspecified; F17.200 Nicotine dependence, unspecified, uncomplicated; F10.10 Alcohol abuse, uncomplicated; Y90.0 Blood alcohol level of less than 20 mg/100 ml; Z79.82 Long term (current) use of aspirin; Z79.899 Other long term (current) drug therapy; Z88.8 Allergy status to other drugs, medicaments and biological substances; Z91.018 Allergy to other foods
CPT/HCPCS: 96372; 96375 ×2; 96376 ×2; 96374; 99285; 36415; 93005; 80053; 80048; 83735; 84484; 85025 ×2; 85610; 85730; 80306; 80320; 73030; 71046; G0378 ×3; J2270; J1200; J1644; J1885 ×2